=== PATIENT | female | born 1965 | race Caucasian/White ===

== ENCOUNTER 2019-12-19 23:22 | Observation (INO) | payer OTHER, SELFPAY ==
--- NOTE | ~2019-12-19 | XR_ITS ---
EXAMINATION: XR chest 1V portable DATE: 12/20/2019 01:05 INDICATION: Midline chest pain TECHNIQUE: frontal view of the chest was obtained. COMPARISON: None FINDINGS: The lungs are clear with no focal airspace opacities, pulmonary edema, pleural effusion or pneumothor ax. The cardiomediastinal silhouette is normal. Adjustable gastric banding procedure in expected posi tion. IMPRESSION: 1. No acute cardiopulmonary disease. Reviewed, dictated and finalized at location A.
[2019-12-19 23:26] VITALS: BP 144/77; PULSE 90; RESP 15; TEMP 36.5; O2SAT 96
--- NOTE | 2019-12-19 23:34 | ECG_ITS ---
Measurements Intervals [place] Rate: 89 P: 46 [place]: 185 QRS: -16 QRSD: 110 T: 52 QT: 399 QTc: 486 Interpretive Statements SINUS RHYTHM INTRAVENTRICULAR CONDUCTION DELAY LOW QRS VOLTAGE IN PRECORDIAL LEADS BASELINE WANDER- II, III, AVF, V6 BORDERLINE ECG Electronically Signed On 12-20-2019 6:55:07 CDT by Chidi Shelton D.O.
--- NOTE | 2019-12-19 23:39 | PC.NURSE ---
Pt states taking 325 Aspirin today (daily). MD Ronquillo aware.
--- NOTE | 2019-12-19 23:44 | ED.CHESTPAIN ---
HPI - Chest Pain General Chief Complaint: Chest Pain Stated Complaint: cp, sob Time Seen by Provider: 12/19/19 23:25 Source: patient Mode of arrival: ambulatory Limitations: no limitations History of Present Illness HPI narrative: 54 yo female with h/o GA in 2010 s/p PCI, stent, HTN, DM, hyperlipidemia who presents with c/o midsternal chest tightness. Patent states she was laying in bed when she developed midsternal chest tightness with shortness of breath. Her pain has been constant and she reports it a appears to be radiating across her chest and to her back. She has associated dizziness and hot flashes . She reports history of GA 2010 in which she had 1 stent placed. This pain is similar to her previous GA except she does not have pain in her arms. 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 MD complaint: chest pain Pertinent past history: prior GA (2010) Onset (ago): hour(s) (1) Timing of current episode: constant Pain location: parasternal Pain radiation: back Severity: moderate Pain scale (0-10): 5 Quality: tightness Exacerbating factors: inspiration Risk Factors Coronary artery disease risk factors: diabetes, smoking history, hyperlipidemia and hypertension Related Data Home Medications Medication Instructions Recorded Confirmed tramadol [Ultram] 50 mg PO DAILY PRN 12/19/19 12/19/19 alprazolam 0.5 mg PO TID PRN 12/20/19 12/20/19 amitriptyline 75 mg PO HS 12/20/19 12/20/19 aspirin 325 mg PO DAILY 12/20/19 12/20/19 atorvastatin 10 mg PO DAILY 12/20/19 12/20/19 cholecalciferol (vitamin D3) 125 mcg PO DAILY 12/20/19 12/20/19 [Vitamin D3] linaclotide [Linzess] 290 mcg PO DAILY PRN 12/20/19 12/20/19 liraglutide [Victoza 2-Grey] 1.8 mg SUBCUT DAILY 12/20/19 12/20/19 metformin 500 mg PO QPM 12/20/19 12/20/19 ondansetron HCl 8 mg PO BID PRN 12/20/19 12/20/19 pantoprazole [Protonix] 40 mg PO QAM 12/20/19 12/20/19 vitamin E 400 unit PO BID 12/20/19 12/20/19 zolpidem 5 mg PO HS PRN 12/20/19 12/20/19 Allergies Allergy/AdvReac Type Severity Reaction Status Date / Time latex Allergy Unknown Verified 10/27/16 08:53 Sulfa (Sulfonamide Allergy Unknown Verified 05/04/17 10:11 Antibiotics) Review of Systems Review of Systems: All systems reviewed & are unremarkable except as noted in HPI and below Constitutional: Constitutional: Denies chills and Denies fever(s) ENT: Reports dizziness, Denies nasal congestion and Denies sore throat Cardiovascular: Cardiovascular: Reports chest pain, Denies rapid heart rate and Denies radiating jaw, neck or arm pain Respiratory: Respiratory: Denies chest congestion, Denies cough, Reports dyspnea and Denies wheezing Gastrointestinal: Gastrointestinal: Denies abdominal pain, Denies nausea and Denies vomiting PMFSH Past Medical History Medical History (Updated 12/20/19 @ 05:41 by Mary Ronquillo MD) Diabetes mellitus Gastroparesis Hypertension Myocardial infarction Surgical History Surgical History (Updated 12/19/19 @ 23:49 by Mary Ronquillo MD) Stented coronary artery Family History Family History (Updated 12/20/19 @ 03:14 by Dariana Sheridan RN) Mother Family history of arthritis Hypercholesteremia Myocardial infarct Sibling Family history of arthritis Family history of type 2 diabetes mellitus Bipolar 1 disorder Scarlet fever Father Patient's father is in good health Myocardial infarct Grandparent Family history of lung cancer Social History Social History (Updated 12/19/19 @ 23:50 by Mary Ronquillo MD) Smoking packs per day: 0.5 Smoking cigarettes per day: 10.0 Years smoked: 37 Smoking pack-years: 18.50 Smoking status: Former smoker Tobacco type: cigarettes Alcohol intake: current Exam Const: General: no acute distress and alert Orientation/consciousness: patient oriented x3 Eyes: EOM: EOMs intact bilaterally Neck: Neck: normal visual inspection Chest: Chest palpation & inspection: normal inspection of
[2019-12-20] VITALS (31 sets, daily range): BP systolic 94–142; BP diastolic 59–105; PULSE 78–110; RESP 12–23; TEMP 36.6–36.9; O2SAT 93–100; BMI 44.7
[2019-12-20] MEDS: ASPIRIN 81 MG CHEWABLE TABLET 324 MG PO
[2019-12-20 00:27] LABS: Basophils Absolute Auto 0.1 K/mm3 (0.0-0.1); Basophils Percent Auto 0.9 % (0.2-1.2); Eosinophils Absolute Auto 0.3 K/mm3 (0-0.3); Eosinophils Percent Auto 2.7 % (0-4.4); Hematocrit 43.7 % (37.0-47.0); Hemoglobin 14.1 g/dL (12.0-15.0); Immature Granulocyte Absolute 0.02 K/mm3 (0.00-0.031); Immature Granulocyte Percent A 0.2 % (0-0.5); Lymphocytes Absolute Auto 3.81 K/mm3 (0.9-3.2); Lymphocytes Percent Auto 40.5 % (18.3-44.2); Mean Corpuscular HGB Conc 32.3 g/dl (32-36); Mean Corpuscular Hemoglobin 27.8 pg (26-34); Mean Platelet Volume 10.9 fl (7.4-10.4); Monocytes Absolute Auto 0.8 K/mm3 (0.1-0.6); Monocytes Percent Auto 8.2 % (2.6-8.5); Neutrophils Absolute Auto 4.5 K/mm3 (1.3-6.7); Neutrophils Percent Auto 47.5 % (45.5-73.1); Platelet Count Result 232 k/mm3 (150-375); Red Blood Count 5.08 M/mm3 (4.2-5.4); Red Cell Distribution Width 13.9 % (11.5-14.5); White Blood Count 9.4 K/mm3 (4.5-10.0)
[2019-12-20 00:36] LABS: INR 0.8; Prothrombin Time 11.2 Seconds (11.1-14.7)
[2019-12-20 00:37] LABS: Partial Thromboplastin Time 26.4 SECONDS (22.3-36.8)
[2019-12-20] MEDS: NITROGLYCERIN SL 0.4 MG TABLET SUBLINGUAL ×3 (00:39→09:56)
[2019-12-20 00:40] LABS: D Dimer 0.34 ug/mL (<0.48)
[2019-12-20 00:41] LABS: Blood Urea Nitrogen 13 mg/dL (7-17); Carbon Dioxide 30 mmol/L (22-30); Chloride 99 mmol/L (98-107); Estimated Glomerular Filt Rate > 60; Glucose 213 mg/dL (65-105); Potassium 3.6 mmol/L (3.4-5.0); Sodium 138 mmol/L (137-145)
[2019-12-20 00:53] LABS: Troponin I < 0.012 ng/mL (0.000-0.034)
--- NOTE | 2019-12-20 01:00 | PC.NURSE ---
Assumed care of pt at this time. report from CHARIS Rossi
--- NOTE | 2019-12-20 01:02 | PC.NURSE ---
Ronak nurse reassessed Pt after administering medication and handed off report to CHARIS Jang at bedside.
--- NOTE | 2019-12-20 01:23 | PC.NURSE ---
VORB EDP Ronquillo administer 1 0.4 mg nitro SL due to pts pain returning to a 3 Pt HR 85 bp 118/77 prior to admission 0124 0129 Pt rating pain at 2 held third nitro due to pt BP 94/60 EDP notified.
--- NOTE | 2019-12-20 01:39 | ECG_ITS ---
Measurements Intervals [place] Rate: 79 P: 41 [place]: 188 QRS: -28 QRSD: 102 T: 41 QT: 411 QTc: 472 Interpretive Statements SINUS RHYTHM ATRIAL PREMATURE COMPLEX LOW QRS VOLTAGE IN PRECORDIAL LEADS BASELINE ARTIFACT- III, AVF BORDERLINE ECG Electronically Signed On 12-20-2019 6:54:19 CDT by Chidi Shelton D.O.
[2019-12-20] MEDS: ONDANSETRON INJ 4 MG/2 ML VIAL IV PUSH (01:46)
[2019-12-20] MEDS: SODIUM CHLORIDE 0.9% IV 500 ML 999 ML IV CONT (01:47)
--- NOTE | 2019-12-20 02:43 | ECG_ITS ---
Measurements Intervals [place] Rate: 78 P: 39 [place]: 184 QRS: -26 QRSD: 104 T: 31 QT: 443 QTc: 507 Interpretive Statements SINUS RHYTHM LOW QRS VOLTAGE IN PRECORDIAL LEADS PROLONGED QT INTERVAL ABNORMAL ECG Electronically Signed On 12-20-2019 6:58:07 CDT by Chidi Shelton D.O.
[2019-12-20 04:12] LABS: Troponin I < 0.012 ng/mL (0.000-0.034)
--- NOTE | 2019-12-20 05:43 | ECG_ITS ---
Measurements Intervals [place] Rate: 92 P: 44 [place]: 188 QRS: -26 QRSD: 99 T: 54 QT: 408 QTc: 505 Interpretive Statements SINUS RHYTHM RSR' IN V1 OR V2, CONSIDER RIGHT VENTRICULAR HYPERTROPHY OR RIGHT VCD LOW QRS VOLTAGE IN PRECORDIAL LEADS NONSPECIFIC T-WAVE ABNORMALITY- INF/LAT LEADS BASELINE ARTIFACT- II, III, AVR, AVL, AVF, V1 BORDERLINE ECG Electronically Signed On 12-20-2019 12:23:43 CDT by Chidi Shelton D.O.
[2019-12-20 06:16] LABS: Troponin I < 0.012 ng/mL (0.000-0.034)
[2019-12-20] MEDS: ACETAMINOPHEN 325 MG TABLET 650 MG PO (08:32)
--- NOTE | 2019-12-20 09:55 | PC.NURSE ---
0930-pt begins having active CP symptoms as MD is spreaking with pt. rates pain as 5/10. Orders received for SL Nitro and EKG. Pt has x2 SL nitro with improvement of CP. EKG shown to MD. Pt has not had any follow up with pump [facility] since 2011 and will go to [facility] per MD order. Nitro relieved chest pain to 1/10 currently. Will continue to monitor.
--- NOTE | 2019-12-20 10:01 | PM.IMHP ---
H&P: HPI History of Present Illness Chief complaint: chest pain Narrative: Date of service: 12/20/2019 Lucretia Rodriguez is a 54 year old female with known history of hypertension, diabetes mellitus type 2, dyslipidemia, obesity, recent diagnosis of systemic lupus erythematosus, history of CAD with prior myocardial infarction 2011 status post PCI, family history premature atherosclerosis, history tobacco abuse who has not had directed cardiovascular care for several years presents emergency department with complaints of progressive 2 weeks of fatigue, exertional dyspnea culminating with onset of substernal chest tightness waking her from sleep last night with associated inability to catch her breath. She states chest pain radiated to her back and up into the right arm and is very similar to symptoms she experienced prior to having her myocardial infarction in 2010 in [place]. In the emergency department she was given sublingual nitroglycerin with significantly improved her symptoms but not completely resolved on initially. Later on her pain had completely resolved and this morning on 8:00 a.m. chest pain return peaking at a 5/10 in intensity reduced to 2/10 with sublingual nitroglycerin x2. Serial troponins negative x3, EKG nonspecific changes on personal review. Patient has been compliant with medical therapy. She quit smoking approximately 6 months ago with the assistance of [employer]. Patient notes occasional lower extremity edema improved with compression stockings but denies any at this time. She denies bright red blood per rectum, melena, focal weakness, near-syncope, syncope, palpitations recent illnesses, fevers or chills. She states she is very tired has no energy overall and knows that something is wrong. Other than that above she has no other new complaints presently. Review of Systems Review of Systems: All systems reviewed & are unremarkable except as noted in HPI and below Constitutional: Constitutional: Reports as per HPI, Reports no additional constitutional complaints, Reports fatigue and Reports weakness Eyes: Eyes: Reports as per HPI, Reports no additional eye complaints and Denies photophobia ENT: Reports system reviewed and no additional complaints, except as documented, Reports as per HPI, Denies dysphagia, Denies nasal congestion and Denies nasal discharge Cardiovascular: Cardiovascular: Reports as per HPI, Reports no additional cardiovascular complaints, Reports chest pain, Denies diaphoresis, Reports leg edema, Denies lightheadedness and Denies palpitations Respiratory: Respiratory: Reports as per HPI, Reports no additional respiratory complaints, Denies chest congestion, Denies hemoptysis, Reports dyspnea, Reports dyspnea on exertion and Denies wheezing Gastrointestinal: Gastrointestinal: Reports as per HPI, Reports no additional gastrointestinal complaints, Denies abdominal pain, Denies melena, Denies bloating, Denies hematochezia, Reports constipation, Denies heartburn, Denies diarrhea, Reports nausea, Denies vomiting and Denies hematemesis Genitourinary: Genitourinary: Reports no additional female genitourinary complaints, Reports as per HPI, Denies hematuria and Denies dysuria Musculoskeletal: Musculoskeletal: Reports no additional musculoskeletal complaints, Reports as per HPI and Reports back pain Integumentary/Breasts: Skin/Breast: Reports system reviewed and no additional complaints, except as docu, Reports as per HPI, Denies erythema, Denies rash and Denies unusual bruising Neurologic: Reports system reviewed and no additional complaints, except as documented, Reports as per HPI, Denies Abnormal speech present, Denies confusion, Reports headache(s) and Denies numbness Psychiatric: Psychiatric: Reports no additional psychiatric complaints, Reports as per HPI, Denies anxiety, Denies behavioral changes and Denies confusion Endocrine: Endocrine: Reports no additional endocrine complaints, Reports as per HPI, Denies excessive s
--- NOTE | 2019-12-20 11:33 | PM.PROC ---
Procedure Note - Detailed Date of procedure: 12/20/19 Pre-op diagnosis: chest pain unstable angina, CAD Post-op diagnosis: same Procedure performed: left heart catheterization with selective left and right coronary angiography with left ventriculography and hemodynamics Description of procedure: BRIEF HISTORY OF PRESENT ILLNESS: Patient is a pleasant 54 year old female with a past medical history significant for prior non ST-elevation myocardial infarction 2010 with stent to proximal LAD, diabetes mellitus, hypertension, dyslipidemia, history tobacco abuse, obstructive sleep apnea and intolerant of CPAP, morbid obesity, history of gastric sleeve, family history premature atherosclerosis who presented with 2 week history of progressive fatigue, exertional dyspnea with onset of familial anginal chest tightness waking her from sleep Waxing waning with nitroglycerin. Serial troponins are negative with nonspecific EKG changes, however, given recurrent rest anginal symptoms and high pretest probability recommendation for coronary angiography were per forth and patient agreed to proceed with plan of care. PROCEDURES PERFORMED: 1. Left heart catheterization 2. Selective left and right coronary angiography 3. Left ventriculography and hemodynamics 4. Moderate/conscious sedation administration 5. [id number] exchange with placement of 6 Algerian arterial vascular access sheath CATHETERS UTILIZED: Left coronary system- 5 Algerian JL4 catheter Right coronary system- 5 Algerian JR4 catheter Left ventriculography and hemodynamics- 5 Algerian angled pigtail catheter PROCEDURE IN DETAIL: After verbal and written informed consent was obtained the patient, risks, benefits, and alternatives explained in detail the patient agreed to proceed with the plan of care as outlined above. The patient was subsequently brought to the cardiac catheterization lab, placed on the cardiac catheterization table, and prepped and draped in the usual sterile fashion. Utilizing approximately 18cc of 1% subcutaneous Lidocaine, the right groin was then locally anesthetized. Utilizing the modified Seldinger technique, a 5 Algerian arterial vascular access sheath was inserted in the right common femoral artery easily and without complications. Through this access, coronary angiography was subsequently obtained in multiple standard re-projections. Following this, a 5 Algerian angled pigtail catheter was advanced retrograde across aortic valve into the cavity of the left ventricle. Left ventriculography was performed and pullback across aortic valve was subsequently recorded. The vascular access sheath and angiographic catheters were flushed before and after catheter exchanges. At the conclusion of the diagnostic portion of the procedure, all angiographic guidewires and catheters were removed and the 5 Algerian arterial vascular access sheath was then exchanged over the wire for 6 Algerian vascular arterial access sheath in anticipation for iFR with Dr. Juan (Interventional Cardiology). There no complications noted at the conclusion of the diagnostic portion of the study. MODERATE SEDATION/ANESTHESIA ADMINISTRATION: Patient reports no prior problems with sedation/anesthesia. Please see pre-sedation noted for physical examination documentation. Sedation start time was 1032 and end time was 1115 for a total intra-service/procedure face-face time of 43 minutes. A total of 2 mg intravenous Versed and a total of 100 mcg intravenous Fentanyl in multiple divided doses was administered for moderate sedation. Moderate sedation was administered by qualified/certified observer Isael Ovalle RN under my supervision with intra-procedure [id number] observation and management throughout the entirety of the procedure. There were no other issues or complications and patient tolerated the procedure well. See post-anesthesia documentation. CORONARY ANGIOGRAPHY: The LEFT MAIN with a large caliber vessel ar
--- NOTE | 2019-12-20 11:38 | WPDMODSED ---
Moderate Sedation Note-Pt Data Patient Data Diagnosis: unstable angina, CAD Present Complaint: persistent chest pain Procedure to be performed/Plan: left heart catheterization with left and right coronary angiography with left ventriculography and hemodynamics and possible percutaneous intervention and stent implantation. Allergies Allergy/AdvReac Type Severity Reaction Status Date / Time latex Allergy Unknown Verified 10/27/16 08:53 Sulfa (Sulfonamide Allergy Unknown Verified 05/04/17 10:11 Antibiotics) Home Medications Medication Instructions Recorded Confirmed Type hydrochlorothiazide 12.5 mg tablet 12.5 mg PO DAILY #30 tablet 07/20/19 12/20/19 Rx lisinopril 40 mg tablet 40 mg PO DAILY #30 tablet 08/22/19 12/20/19 Rx metoprolol tartrate 50 mg tablet 50 mg PO Q12H #60 tablet 08/22/19 12/20/19 Rx citalopram 40 mg tablet 40 mg PO DAILY #90 tablet 09/19/19 12/20/19 Rx levothyroxine 88 mcg tablet 88 mcg PO DAILY #90 tablet 09/19/19 12/20/19 Rx meloxicam 15 mg tablet 15 mg PO DAILY #30 tablet 11/14/19 12/20/19 Rx tramadol [Ultram] 50 mg PO DAILY PRN 12/19/19 12/19/19 History alprazolam 0.5 mg PO TID PRN 12/20/19 12/20/19 History amitriptyline 75 mg PO HS 12/20/19 12/20/19 History aspirin 325 mg PO DAILY 12/20/19 12/20/19 History atorvastatin 10 mg PO DAILY 12/20/19 12/20/19 History cholecalciferol (vitamin D3) 125 mcg PO DAILY 12/20/19 12/20/19 History [Vitamin D3] linaclotide [Linzess] 290 mcg PO DAILY PRN 12/20/19 12/20/19 History liraglutide [Victoza 2-Grey] 1.8 mg SUBCUT DAILY 12/20/19 12/20/19 History metformin 500 mg PO QPM 12/20/19 12/20/19 History ondansetron HCl 8 mg PO BID PRN 12/20/19 12/20/19 History pantoprazole [Protonix] 40 mg PO QAM 12/20/19 12/20/19 History vitamin E 400 unit PO BID 12/20/19 12/20/19 History zolpidem 5 mg PO HS PRN 12/20/19 12/20/19 History Current Medications: Active Medications Morphine Sulfate (Morphine Sulfate Inj) 4 mg IV PUSH Q2H PRN PRN Reason: Pain Rated 7-10 Nitroglycerin (Nitrostat Subl 0.4 Mg (1/150)) 0.4 mg SUBLINGUAL Q5MIN PRN PRN Reason: Chest Pain Last Admin: 12/20/19 09:56 Dose: 0.4 mg Documented by: Ondansetron HCl (Zofran Inj) 4 mg IV PUSH Q4H PRN PRN Reason: Nausea Sedation/Anesthesia: No previous sedation/anesthesia problems (including family history). [facility] Past Medical History Medical History Diabetes mellitus Gastroparesis Hypertension Myocardial infarction Surgical History Surgical History Stented coronary artery Family History Family History Mother Family history of arthritis Hypercholesteremia Myocardial infarct Sibling Family history of arthritis Family history of type 2 diabetes mellitus Bipolar 1 disorder Scarlet fever Father Patient's father is in good health Myocardial infarct Grandparent Family history of lung cancer Social History Social History Smoking packs per day: 0.5 Smoking cigarettes per day: 10.0 Years smoked: 37 Smoking pack-years: 18.50 Smoking status: Former smoker Tobacco type: cigarettes Alcohol intake: current Mod Sed Physical Exam Physical Exam Pre Procedural Exam: Normal: Appearance, Eyes, Ears, Nose, Neck ( Obese, supple, normal range of motion), Throat ( posterior hypopharynx clear, nonerythematous.), Airway ( normal anatomy, no obstruction), Lungs ( clear to auscultation bilaterally), Heart Size, Heart Rate, Heart Rhythm, Neuro Exam, Liver, Kidneys, Extremities and Skin and Variation: Abdomen ( Obese) Hours since solid foods: 12 Hours since liquid intake: 12 Internal Medicine - PN: Obj Da Vital Signs Vital Signs: Vital Signs - 24 hr 12/19/19 23:26 12/20/19 00:59 12/20/19 01:21 Temperature 36.5 C Pulse Rate 90 87 87 Respiratory Rate 15 20
--- NOTE | 2019-12-20 11:54 | WPDCARDPROC ---
Cardiac Cath Procedure Note Date of procedure:: 12/20/19 Performing physician:: Kamlesh Juan MD Indication:: chest pain Procedure Procedure note:: CARDIAC CATHETERIZATION AND PERCUTANEOUS CORONARY INTERVENTION REPORT DATE OF PROCEDURE: 12/20/2019 INDICATION FOR PROCEDURE: chest pain, moderate stenosis mid LCX and mid RCA BRIEF CLINICAL HISTORY: 54-year-old obese female with known coronary disease, history of PCI / stenting of LAD at outside hospital; hypertension, diabetes mellitus. Patient was admitted to hospital with complaints of chest discomfort. She was ruled out for [place] by serial negative cardiac biomarkers. Patient's coronary angiogram performed by Dr. Alexandre, which in addition to other findings as dictated separately by Dr. Alexandre in the diagnostic cardiac catheterization, showed ectatic LCX and RCA with moderate degree stenosis in the mid LCX and mid RCA. In light of this findings, we proceeded with the functional assessment of the lesions using IFR. The 5 [place]ian sheath was exchanged to [address] Alexandre. Benefits, risks and alternatives of the procedure had already been discussed with the patient and informed consent was taken prior to the procedure. PROCEDURES PERFORMED: 1. Selective left and right coronary angiogram 2. IFR of mid LCX 3. IFR of mid RCA 3. Selective right common femoral angiogram and deployment of Angio-Seal hemostatic device 4. Moderate sedation-CPT code 27603 MODERATE SEDATION: Midazolam 2 mg; fentanyl 100 mcg ( Given during diagnostic part of the procedure). Start time 1120 , Stop time 1140 ; Total [id number] time 20; Isael Ovalle RN was trained observer for moderate sedation. ACCESS SITE: Right common femoral artery INTERVENTION REPORT: At 1st, we proceeded with the IFR of the mid LCX. Patient received bivalirudin for procedural anticoagulation. left main coronary artery ostium was selectively engaged using 6 Liberian 3.5 CLS guide catheter. A Spindle Verrata pressure wire was used for IFR measurement. The wire was zeroed outside, and was introduced into the proximal left circumflex artery and normalized. Next, the mid LCX lesion was crossed and IFR was measured. The IFR was measured at 1.0 on 3 successive measurements. The wire was taken out and angiogram showed preserved flow. Based on the angiographic findings, intervention was not deemed necessary in the LCX. Next, attention was shifted to mid RCA stenosis. The same wire was introduced in the JR4 guide catheter, and was normalized in the aorta. Next, the wire was advanced and the lesion in the mid RCA was successfully crossed. The IFR was measured at 1.0 on 3 successive measurement. Angiogram after removal of the wire showed preserved flow in the RCA. Based on the above findings, no intervention was deemed necessary in the mid RCA. Finally, selective right common femoral angiogram was performed. The access site was close to the bifurcation, therefore, vascular closure device was not deployed. Manual pressure will be used for local hemostasis. Patient tolerated procedure well without any immediate procedure related complications. CONCLUSIONS: Moderate stenosis in the ectatic mid LCX and mid RCA with normal IFR measured at 1.0. PLAN/RECOMMENDATIONS: Optimal, tolerating medical treatment for CAD. Risk factor modification. Follow up with Dr. Alexandre the outpatient cardiology clinic. Need for any intervention in the future will be based on patient's clinical course. Patient has large, ectatic vessels (RCA, LCX), and would need large caliber stents, if/when necessary. This document was completed by using [employer] speech recognition software, therefore, paleobotanist variances may occur.
--- NOTE | 2019-12-20 12:16 | SUR.PHASEII ---
1200-pt back to the [facility] after an LHC. No distress noted. 6F sheath in place. Groin soft and non-tender, no evidence of bleeding or hematoma noted. Strong right pedal pulse noted. Will continue to monitor.
--- NOTE | 2019-12-20 14:03 | PC.NURSE ---
1403-6f sheath pulled by CHARIS Traylor. Will continue to monitor.
[2019-12-20] MEDS: ISOSORBIDE MONONITRATE 30 MG TAB.ER.24H PO (17:00)
[2019-12-20 18:30] LABS: Cholesterol 123 mg/dL (0-200); HDL Direct 27 mg/dL; Triglycerides 290 mg/dL (<150)
[2019-12-20 18:41] LABS: LDL Cholesterol Direct 57 mg/dL
--- NOTE | 2019-12-21 10:17 | PM.DS ---
DS: Diagnosis Admitting Diagnosis Admitting Diagnosis: Unstable angina Discharge Diagnosis (1) CAD (coronary artery disease): Code(s): I25.10 - Atherosclerotic heart disease of [place] coronary artery without angina pectoris Status: Acute Assessment and Plan: Coronary artery disease as described in hospital course. Isosorbide mononitrate added to her regimen. DS: Summary Hospital Course Reason for hospitalization: Chest pain Hospital Course: 54 year old female with known history of hypertension, diabetes mellitus type 2, dyslipidemia, obesity, recent diagnosis of systemic lupus erythematosus, history of CAD with prior myocardial infarction 2011 status post PCI, family history premature atherosclerosis, history tobacco abuse who has not had directed cardiovascular care for several years presents emergency department with complaints of progressive 2 weeks of fatigue, exertional dyspnea culminating with onset of substernal chest tightness waking her from sleep with associated inability to catch her breath. The chest pain radiated to her back and up into the right arm and was very similar to symptoms she experienced prior to having her myocardial infarction in 2010 in [place]. In the emergency department she was given sublingual nitroglycerin with significantly improved her symptoms but not completely resolved initially. Later on her pain had completely resolved. At 8:00 a.m. the chest pain return peaking at a 5/10 in intensity reduced to 2/10 with sublingual nitroglycerin x2. Serial troponins negative x3, EKG nonspecific changes on personal review by Dr. Alexandre. Due to her ongoing chest discomfort she was taken to the cardiac catheterization lab with a significant findings of:Two vessel moderate nonobstructive disease with 60-70% stenosis proximal circumflex with poststenotic aneurysmal dilatation and 50-70% mid RCA stenosis which is a very large caliber dominant vessel. Preserved LV systolic function EF 70% without wall motion abnormalities. Minimal elevation of left ventricular end-diastolic filling pressure 14 mmHg. Patent previously placed stent in proximal LAD with 10% in stent restenosis. Isosorbide mononitrate was added to her regimen. Her aspirin was decreased to 81 mg daily. Atorvastatin was increased to 40 mg daily. Due to the addition of isosorbide mononitrate her lisinopril was decreased to 20 mg from 40 mg daily. After the prescribed bedrest she was discharged home in stable and pain-free condition. Status at Discharge Functional status at discharge: independent ambulation Overall status at discharge: patient is back to baseline Time Spent with Patient Time attestation: Total time spent providing and/or coordinating discharge services: 20 minutes Time spent: Less than 30 minutes Exam Narrative: Exam Narrative: General: Obese female, appears fatigued, worried otherwise well developed, alert and oriented x3. No apparent distress, pleasant, and cooperative. Head: atraumatic, normocephalic Eyes: EOM intact, sclerae anicteric, conjunctivae unremarkable Ears/Nose: external inspection of ears and nose were grossly normal Mouth/Throat: oral mucosa pink and moist Neck: supple, normal range of motion, no jugular venous distention or carotid bruits, thyroid nonpalpable, trachea midline. Cardiac: Regular rate and rhythm, normal S1-S2, no murmurs, clicks, gallops, or rubs. Lungs: Clear to auscultation bilaterally, no rales, wheezes, or rhonchi. Abdomen: Obese, Soft, nontender, nondistended, positive bowel sounds throughout. No appreciable hepatosplenomegaly, no rebound guarding or rigidity noted. Abdominal aorta nonpalpable, no appreciable bruits. Extremities: No edema, clubbing, and or cyanosis. Extremities warm and well perfused. Skin: Warm and dry without ecchymoses, rashes, and/or petechiae. Musculoskeletal: Musc
== END 2019-12-20 21:50 | disposition home or self-care (01) ==
LOC: ANHED 23:56 → ANHIMU 12-20 02:04 → ANHCPC 12-20 07:26
PROVIDERS: Internal Medicine Cardiovascular Disease; Admitting Provider Internal Medicine Cardiovascular Disease; Emergency Provider General Practice; PCP Physician Assistant; Visit Provider Internal Medicine Cardiovascular Disease
PROC: 4A023N7 Measurement of Cardiac Sampling and Pressure, Left Heart, Percutaneous Approach (ICD-10-PCS; CPT 93452; principal; 2019-12-20 10:15)
PROC: 4A033BC Measurement of Arterial Pressure, Coronary, Percutaneous Approach (ICD-10-PCS; CPT 93571; 2019-12-20 10:15)
PROC: 4A033BC Measurement of Arterial Pressure, Coronary, Percutaneous Approach (ICD-10-PCS; CPT 75580; 2019-12-20 10:15)
DX: I25.110 Atherosclerotic heart disease of native coronary artery with unstable angina pectoris (principal); I25.41 Coronary artery aneurysm; T82.855A Stenosis of coronary artery stent, initial encounter; Y83.2 Surgical operation with anastomosis, bypass or graft as the cause of abnormal reaction of the patient, or of later complication, without mention of misadventure at the time of the procedure; I25.2 Old myocardial infarction; E11.59 Type 2 diabetes mellitus with other circulatory complications; I10 Essential (primary) hypertension; E11.69 Type 2 diabetes mellitus with other specified complication; E78.5 Hyperlipidemia, unspecified; E11.43 Type 2 diabetes mellitus with diabetic autonomic (poly)neuropathy; K31.84 Gastroparesis; E03.9 Hypothyroidism, unspecified; M32.9 Systemic lupus erythematosus, unspecified; E66.01 Morbid (severe) obesity due to excess calories; Z68.41 Body mass index [BMI] 40.0-44.9, adult; G47.33 Obstructive sleep apnea (adult) (pediatric); Z82.49 Family history of ischemic heart disease and other diseases of the circulatory system; Z87.891 Personal history of nicotine dependence; Z98.84 Bariatric surgery status
CPT/HCPCS: 36415; 71045; 80048; 80061; 84484; 85025; 85380; 85610; 85730; 93005; 93458; 93571; 93572; 96374; 96375; 99285; A9270; C1769; C1887; C1894; G0378; J0583; J1644; J2250; J2405; J3010; J7040

== ENCOUNTER 2021-01-03 14:14 | Observation (INO) | payer OTHER, SELFPAY ==
[2021-01-03] VITALS (9 sets, daily range): BP systolic 126–144; BP diastolic 71–84; PULSE 76–92; RESP 14–22; TEMP 36–36.6; O2SAT 94–98; BMI 46.2
--- NOTE | ~2021-01-03 | XR_ITS ---
EXAMINATION: XR chest 2V 01/03/2021 15:25 INDICATION: Left-sided chest pain PROCEDURE: 2 view chest COMPARISON: 12/20/2019 FINDINGS: The lungs are clear. The cardiomediastinal silhouette is within normal limits. There are no pleural effusions. There is no pneumothorax suspected. IMPRESSION: 1: NO ACUTE CARDIOPULMONARY DISEASE. Reviewed, dictated and finalized at location B.
--- NOTE | ~2021-01-03 | NM_ITS ---
EXAMINATION: NM demetrius stress w perfusion DATE: 01/04/2021 14:37 CDT INDICATION: Chest pain. TECHNIQUE: Rest images were obtained following intravenous administration of 9.6 mCi Tc99m tetrofosmi n (Myoview). The patient was infused intravenously with Lexiscan (regadenoson). Then, 30 mCi Tc99m te trofosmin (Myoview) was administered intravenously, and stress images were obtained. Data was reconst ructed into short axis and horizontal and vertical long axis SPECT images. Gated SPECT images were al so obtained. COMPARISON: None. FINDINGS: There is no definite reversible or fixed perfusion abnormality to suggest ischemia or infar ction. There is no segmental wall motion abnormality. Left ventricular ejection fraction measures 7 2%. IMPRESSION: 1. No definite ischemia or infarct. 2. Normal left ventricular ejection fraction measuring 72%. Reviewed, dictated and finalized at location B.
--- NOTE | 2021-01-03 14:22 | ECG_ITS ---
Measurements Intervals [place] Rate: 83 P: 20 RI: 156 QRS: -26 QRSD: 106 T: 22 QT: 394 QTc: 465 Interpretive Statements SINUS RHYTHM LOW QRS VOLTAGE IN PRECORDIAL LEADS BORDERLINE ECG Electronically Signed On 01-03-2021 14:27:39 CDT by Chidi Shelton D.O.
[2021-01-03 14:45] LABS: Basophils Absolute Auto 0.1 K/mm3 (0.0-0.1); Basophils Percent Auto 1.3 % (0.2-1.2); Eosinophils Absolute Auto 0.2 K/mm3 (0-0.3); Eosinophils Percent Auto 3.1 % (0-4.4); Hematocrit 40.8 % (37.0-47.0); Hemoglobin 12.7 g/dL (12.0-15.0); Immature Granulocyte Absolute 0.03 K/mm3 (0.00-0.031); Immature Granulocyte Percent A 0.4 % (0-0.5); Lymphocytes Absolute Auto 2.22 K/mm3 (0.9-3.2); Lymphocytes Percent Auto 32.9 % (18.3-44.2); Mean Corpuscular HGB Conc 31.1 g/dl (32-36); Mean Corpuscular Hemoglobin 27.1 pg (26-34); Mean Platelet Volume 10.5 fl (7.4-10.4); Monocytes Absolute Auto 0.4 K/mm3 (0.1-0.6); Monocytes Percent Auto 5.6 % (2.6-8.5); Neutrophils Absolute Auto 3.8 K/mm3 (1.3-6.7); Neutrophils Percent Auto 56.7 % (45.5-73.1); Platelet Count Result 237 k/mm3 (150-375); Red Blood Count 4.69 M/mm3 (4.2-5.4); Red Cell Distribution Width 15.2 % (11.5-14.5); White Blood Count 6.8 K/mm3 (4.5-10.0)
[2021-01-03 14:55] LABS: Anion Gap 10 mmol/L (8-16); Blood Urea Nitrogen 18 mg/dL (7-17); Calcium 9.2 mg/dL (8.4-10.2); Carbon Dioxide 26 mmol/L (22-30); Chloride 104 mmol/L (98-107); Estimated CRCL calculation 84 ml/min; Estimated Glomerular Filt Rate > 60; Glucose 111 mg/dL (65-105); Potassium 4.1 mmol/L (3.4-5.0); Sodium 140 mmol/L (137-145)
[2021-01-03] MEDS: ASPIRIN 81 MG CHEWABLE TABLET 243 MG PO (15:04)
[2021-01-03 15:07] LABS: Troponin I < 0.012 ng/mL (0.000-0.034)
--- NOTE | 2021-01-03 15:20 | PC.NURSE ---
Arrives via EMS, s/p starting 1115 today R shoulder pain radiating across chest, denies injuries or recent exertion, +N +dizziness -V. Pt took nitro SL x3 at home with some relief. ON assessment pt reports CP 11/14, non-labored resps, denies SOB
--- NOTE | 2021-01-03 15:34 | ED.BACK ---
HPI - Back Pain/Injury General Chief Complaint: Back Pain/Injury Stated Complaint: Pain R Arm sent by Dr Alexandre Time Seen by Provider: 01/03/21 15:18 Source: patient Mode of arrival: ambulatory Limitations: no limitations History of Present Illness HPI Narrative: This is a 55 year old female that presents to the ER for right arm pain that started around 11 this morning. Reports the pain felt similar to when she had an MS in the past. It is a dull ache and radiates into the shoulder blade. Reports the pain also radiates into her chest. Reports she feels like it is hard to get a deep breath. No known alleviating or exacerbating factors. She took 3 doses of sublingual nitro at home. Pain is much improved from onset. She called 911 and was evaluated by EMS, but decided to not be transported. She then called her group sales coordinator who recommended evaluation in the ED. Denies fever, vomiting, weakness or numbness. Related Data Home Medications Medication Instructions Recorded Confirmed tramadol [Ultram] 50 mg PO DAILY PRN 12/19/19 12/19/19 Linzess 290 mcg PO DAILY PRN 12/20/19 12/20/19 Victoza 2-Grey 1.8 mg SUBCUT DAILY 12/20/19 12/20/19 alprazolam 0.5 mg PO TID PRN 12/20/19 12/20/19 amitriptyline 75 mg PO HS 12/20/19 12/20/19 cholecalciferol (vitamin D3) 125 mcg PO DAILY 12/20/19 12/20/19 [Vitamin D3] metformin 500 mg PO QPM 12/20/19 12/20/19 ondansetron HCl 8 mg PO BID PRN 12/20/19 12/20/19 pantoprazole [Protonix] 40 mg PO QAM 12/20/19 12/20/19 vitamin E 400 unit PO BID 12/20/19 12/20/19 zolpidem 5 mg PO HS PRN 12/20/19 12/20/19 Allergies Allergy/AdvReac Type Severity Reaction Status Date / Time latex Allergy Unknown Verified 10/27/16 08:53 Sulfa (Sulfonamide Allergy Unknown Verified 05/04/17 10:11 Antibiotics) Review of Systems Review of Systems: Narrative: CONSTITUTIONAL: Denies fever CARDIOVASCULAR: Reports chest pain. Denies edema. RESPIRATORY: Reports dyspnea. GASTROINTESTINAL: Denies vomiting MUSCULOSKELETAL: Reports joint pain, and myalgia. NEUROLOGIC: Denies numbness, or weakness. All systems reviewed & are unremarkable except as noted in HPI and below [facility] Past Medical History Medical History (Updated 01/03/21 @ 16:22 by Taylor Pappas PA-C) Diabetes mellitus Gastroparesis Hypertension Myocardial infarction Surgical History Surgical History Stented coronary artery Family History Family History Mother Family history of arthritis Hypercholesteremia Myocardial infarct Sibling Family history of arthritis Family history of type 2 diabetes mellitus Bipolar 1 disorder Scarlet fever Father Patient's father is in good health Myocardial infarct Grandparent Family history of lung cancer Social History Social History Smoking packs per day: 0.5 Smoking cigarettes per day: 10.0 Years smoked: 37 Smoking pack-years: 18.50 Smoking status: Former smoker Tobacco type: cigarettes Alcohol intake: current Gender identity (if verbalized by the patient): Female Exam Narrative: Exam Narrative: GENERAL: Well-appearing, obese, and in no acute distress. HEAD: Normocephalic, atraumatic. EYES: EOMI. ENT: Nares clear, no rhinorrhea or epistaxis. Mucous membranes moist. Oropharynx without tonsillar hypertrophy exudate or other lesions. NECK: Supple. No adenopathy or masses. No carotid bruits or JVD CHEST: Clear to auscultation. No respiratory distress. No wheezes rales or rhonchi HEART: Regular rate and rhythm. No murmur heard. Normal peripheral pulses. EXTREMITIES: Normal range of motion. No edema. SKIN: Warm, dry, no rash. NEURO: No focal deficits. Alert and oriented x3. PSYCH: Normal mood and affect Course Consultations Consultation #1: Spoke with Dr. Alexandre about patient and work-up who will consult Date: 12/07
[2021-01-03 16:47] LABS: INR 0.9; Partial Thromboplastin Time 23.7 SECONDS (22.3-36.8); Prothrombin Time 12.2 Seconds (11.1-14.7)
[2021-01-03] MEDS: ACETAMINOPHEN 500 MG TABLET 1000 MG PO (17:25)
[2021-01-03 17:51] LABS: Troponin I < 0.012 ng/mL (0.000-0.034)
--- NOTE | 2021-01-03 18:50 | ADMGEN ---
This patient, Lucretia Rodriguez, was admitted to IMU Room 206-01. Patient/family oriented to hospital policies and general routines including ID bracelet, bed and alarms, visiting hours, pain management, procedures, bathroom and other care routines, personal items, smoking policy, room service/diet, and visiting hours. Information on how to activate the Rapid Response Team has been discussed. Patient/Family are encouraged to report perceived risks to care and to ask questions if they do not understand what they are told or what they should do.
[2021-01-03 19:10] LABS: Glucose Point of Care 106 (65-105)
[2021-01-03 20:52] LABS: Troponin I < 0.012 ng/mL (0.000-0.034)
--- NOTE | 2021-01-03 21:00 | PM.IMHP ---
H&P: HPI History of Present Illness Date/Time: 01/03/21 21:00 Chief Complaint: Right arm pain. Narrative: This is a 55-year-old female with coronary artery disease, hypertension, and diabetes who presented to the emergency department earlier today from home with complaints of right arm pain. She was in her usual state of health this morning when she suddenly developed a deep aching pain in her right upper extremity radiating up into the shoulder. She was slightly nauseated and felt a bit short of breath with that as well and she ended up taking nitroglycerin x3 as she experienced similar symptoms prior to her AL several years ago. The nitroglycerin did not help and thus she called 911. On EMS arrival they told her that her EKG was normal and did not think that she needed to come to the hospital. Unfortunately she continued to have discomfort in after speaking with her flask maker she was directed to the emergency department. She still has some mild discomfort at this time but is not as severe as it was earlier today. She has not injured herself and denies recent lifting and new exercise programs. She is not having overt chest pain. She denies pleuritic pain and shortness of breath. No neck pain or injury. Review of Systems Review of Systems: Narrative: Twelve systems were reviewed with pertinent positives and negatives as per HPI. No fever, chills, or sweats. She denies recent cold and flu symptoms. No cough. Nausea earlier but no vomiting. No lower extremity edema, calf pain or tenderness. No history of venous thromboembolism. She believes her chronic medical conditions are well controlled. No blurry vision, polydipsia, or polyuria. Except as documented, all other systems were reviewed and are negative. [facility] Past Medical History Medical History (Updated 01/03/21 @ 23:42 by Mya Gimenez PA-C) Anemia Coronary artery disease With history of stent. Diabetic peripheral neuropathy Gastroesophageal reflux disease Gastroparesis History of squamous cell carcinoma of skin Hypertension Hypothyroidism Myocardial infarction Obstructive sleep apnea Does not use CPAP. Osteoarthritis Type 2 diabetes mellitus Surgical History Surgical History (Updated 01/03/21 @ 23:40 by Mya Gimenez PA-C) History of arthroplasty of left knee (~2016) History of cholecystectomy History of laparoscopic adjustable gastric banding (~2009) History of squamous cell carcinoma excision Right shoulder. History of tubal ligation Stented coronary artery (~2010) Family History Family History Mother Family history of arthritis Hypercholesteremia Myocardial infarct Sibling Family history of arthritis Family history of type 2 diabetes mellitus Bipolar 1 disorder Scarlet fever Father Patient's father is in good health Myocardial infarct Grandparent Family history of lung cancer Social History Social History (Updated 01/03/21 @ 23:40 by Mya Gimenez PA-C) Social History: Surrogate decision maker: Tommy ruvalcaba, daughter. Code status: Full code. Smoking packs per day: 0.5 Smoking cigarettes per day: 10.0 Years smoked: 37 Smoking pack-years: 18.50 Smoking status: Former smoker Tobacco type: cigarettes Additional smoking assessment comments: quit 2019, 1/2ppd since 17y/o Alcohol intake: never Substance use: never Additional living arrangements comments: The patient lives alone in [place]. 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 Gender identity (if verbalized by the patient): Female Spiritual care concerns: No Meds Home Medications and Allergies Home Medications Medication Instructions Recorded Confirmed Type tramadol [Ultram] 50 mg PO DAILY PRN 12/19/19 01/03/21 History Linzess 290 mcg PO DAILY 12/20/19 01/03/21 History amitriptyline 100 mg PO HS 12/20/19 01/03/21 History aspirin [
[2021-01-03] MEDS: HYDROcodone/acetaminophen (*CRX) 5-325 MG TABLET 1 TAB PO (21:11)
[2021-01-03 21:34] LABS: Glucose Point of Care 179 (65-105)
[2021-01-04] VITALS (10 sets, daily range): BP systolic 105–149; BP diastolic 59–103; PULSE 66–97; RESP 16–20; TEMP 36.2; O2SAT 95–96
[2021-01-04] MEDS: VITAMIN B COMPLEX CAPSULE 1 CAP PO (00:13)
[2021-01-04] MEDS: AMITRIPTYLINE HCL 25 MG TABLET 100 MG PO (00:13)
[2021-01-04] MEDS: CHOLECALCIFEROL 1,000 UNITS TABLET 5000 UNITS PO (00:13)
[2021-01-04] MEDS: MELATONIN 5 MG TABLET 10 MG PO (00:13)
[2021-01-04] MEDS: ATORVASTATIN 40 MG TABLET PO (00:14)
[2021-01-04] MEDS: METOPROLOL TARTRATE 50 MG TAB PO ×2 (00:14→08:48)
[2021-01-04] MEDS: traMADol HCL (*CRX) 50 MG TABLET PO (00:20)
[2021-01-04 05:31] LABS: Hemoglobin A1C 7.9 % (<5.7)
[2021-01-04 05:32] LABS: Alanine Aminotransferase 60 U/L (4-35); Albumin Level 3.9 g/dL (3.5-5.1); Alkaline Phosphatase 58 U/L (38-126); Anion Gap 6 mmol/L (8-16); Aspartate Amino Transferase 71 U/L (14-36); Bilirubin,Total 0.4 mg/dL (0.2-1.3); Blood Urea Nitrogen 19 mg/dL (7-17); Calcium 8.6 mg/dL (8.4-10.2); Carbon Dioxide 28 mmol/L (22-30); Chloride 105 mmol/L (98-107); Estimated CRCL calculation 76 ml/min; Estimated Glomerular Filt Rate > 60; Glucose 127 mg/dL (65-105); Magnesium 2.1 mg/dL (1.6-2.3); Sodium 139 mmol/L (137-145)
[2021-01-04 05:42] LABS: Hematocrit 38.4 % (37.0-47.0); Hemoglobin 12.3 g/dL (12.0-15.0); Mean Corpuscular Hemoglobin 27.2 pg (26-34); Mean Platelet Volume 10.6 fl (7.4-10.4); Platelet Count Result 227 k/mm3 (150-375); Red Blood Count 4.52 M/mm3 (4.2-5.4); Red Cell Distribution Width 15.3 % (11.5-14.5); White Blood Count 5.5 K/mm3 (4.5-10.0)
[2021-01-04] MEDS: LEVOTHYROXINE SODIUM 88 MCG TABLET PO (06:01)
[2021-01-04] MEDS: ISOSORBIDE MONONITRATE 30 MG TAB.ER.24H PO (08:48)
[2021-01-04] MEDS: ASPIRIN 81 MG ENTERIC TABLET PO (08:48)
[2021-01-04] MEDS: lisinopriL 20 MG TABLET PO (08:48)
[2021-01-04] MEDS: MELOXICAM 7.5 MG TABLET 15 MG PO (08:48)
[2021-01-04] MEDS: PANTOPRAZOLE 40 MG TABLET PO (08:48)
[2021-01-04] MEDS: hydroCHLOROthiazide 25 MG TABLET PO (08:48)
[2021-01-04] MEDS: HYDROcodone/acetaminophen (*CRX) 5-325 MG TABLET 1 TAB PO (08:49)
--- NOTE | 2021-01-04 09:25 | PM.IMPN ---
Progress Note: A&P Assessment and Plan (1) Right upper limb pain: Code(s): M79.601 - Pain in right arm Status: Acute Assessment and Plan: Complaints of pain in right arm extending to right shoulder and neck described as heaviness/aching sensation. Patient is concerned that this is her anginal equivalent as she had similar symptoms prior to her UT in 2010. Troponins negative x3. No acute findings noted on EKG. No improvement in pain overnight. Given cardiac history, her midwife practitioner Dr. Alexandre has been consulted. Patient is NPO. Stress test vs cardiac catheterization being considered. Will await further Cardiology recommendations. Continue supportive care including elevation, analgesics as needed (2) Coronary artery disease: Code(s): I25.10 - Atherosclerotic heart disease of [place] coronary artery without angina pectoris Status: Acute Assessment and Plan: With associated symptoms of right arm pain and chest tightness. Plan as above. Continue aspirin, atorvastatin, metoprolol, and isosorbide (3) Hypertension: Code(s): I10 - Essential (primary) hypertension Status: Acute Assessment and Plan: BP reviewed and has been generally well controlled, especially given her pain. Last BP 130/73. Continue metoprolol and hydrochlorothiazide (4) Type 2 diabetes mellitus: Code(s): E11.9 - Type 2 diabetes mellitus without complications Status: Acute Assessment and Plan: A1c is 7.9. Accu-Cheks, sliding scale insulin, and hypoglycemic protocol in place Metformin is on hold (5) Hypothyroidism: Code(s): E03.9 - Hypothyroidism, unspecified Status: Acute Assessment and Plan: TSH is within normal limits Continue levothyroxine Subjective Date/time seen: 01/04/21 09:25 Interval history: Date of service: 01/04/2021 Lucretia Rodriguez is a 55-year-old female with history of coronary artery disease with history of UT in 2010 established with midwife practitioner Dr. Alexandre, hypertension, hypothyroidism, type 2 diabetes mellitus with neuropathy and gastroparesis, LISSETTE, and anemia who is seen in follow-up for chest pain and right arm pain. She states his pain in her right arm feels similarly to her last UT. Her pain has not improved. She describes it as a heaviness and aching sensation in the right arm up to the right shoulder and neck. She denies jaw pain. She has anterior chest tightness. She also endorses feeling anxious and nauseous. Denies diaphoresis. She has headache. She denies any episodes of vomiting. No left arm pain. Denies GERD symptoms. She reported mild DENISE yesterday but at this time denies shortness of breath. No dizziness or lightheadedness. She endorses occasional dry cough. No abdominal pain. No diarrhea. No urinary symptoms. She is NPO at this time and has not eaten yet today. Review of Systems Review of Systems: All systems reviewed & are unremarkable except as noted in HPI and below Exam Narrative: Exam Narrative: Ms. Rodriguez is an obese, well-appearing 55-year-old female who is lying semi recumbent in bed with her right arm supported by a pillow. She appears comfortable and is in NARD. Neuro: awake, alert and oriented x4, speech clear, no focal neuro deficits noted HEENMT: normocephalic, atraumatic, EOMI, sclerae anicteric, moist oral mucosa, tongue midline, nares patent Neck: supple, no lymphadenopathy Chest: No tenderness to palpation of anterior chest wall Respiratory: clear to auscultation bilaterally, nonlabored breathing Cardio: regular rate, regular rhythm with S1-S2 Abdomen: Obese, nondistended, normoactive bowel sounds, soft, nontender to palpation, no rigidity or guarding Extremities: Right arm is nontender to palpation with full ROM. Bilateral lower extremities without edema, erythema, cyanosis, clubbing, or tenderness to palpation, DP pulses 2+ bilaterally Skin: no rashes o
--- NOTE | 2021-01-04 10:19 | EST_ITS ---
Patient Info Name: Lucretia Rodriguez Age: 55 years : 1965 Gender: Female Ht: 63 in Wt: 263 lbs BSA: 2.37 m2 Heart Rhythm: Sinus Rhythm Exam Date: 01/04/2021 1:17 PM Exam Location: [facility] Stress Patient Status: Inpatient Admit Date: 01/03/2021 Staff Ordering Physician: Kike Alexandre MD Attending Provider: Ashlee Pereyra PA-C Exercise Technologist: Azalia Patel CT Exercise Physician: Kike Alexandre MD Exam Type: CA stress demetrius w NM Study Info A regadenoson stress test was performed. Summary 1. No abnormal ST/T wave changes with Lexiscan administration. 2. No arrhythmias were observed during the examination. 3. Please correlate with nuclear medicine images, reported separately. 4. No chest discomfort with stress test. Protocol: Lexiscan Stress ECG Details Stage: REST Duration (min): 5 min : 8 sec HR (bpm): 71 SBP (mmHg): 105 DBP (mmHg): 60 Stage: REST Duration (min): 10 min : 20 sec HR (bpm): 71 SBP (mmHg): 105 DBP (mmHg): 60 Stage: STAGE 1 Duration (min): 0 min : 59 sec HR (bpm): 73 SBP (mmHg): 101 DBP (mmHg): 68 Stage: RECOVERY Duration (min): 1 min : 0 sec HR (bpm): 91 SBP (mmHg): 101 DBP (mmHg): 68 Stage: RECOVERY Duration (min): 2 min : 0 sec HR (bpm): 87 SBP (mmHg): 101 DBP (mmHg): 68 Stage: RECOVERY Duration (min): 3 min : 0 sec HR (bpm): 82 SBP (mmHg): 121 DBP (mmHg): 77 Stage: RECOVERY Duration (min): 3 min : 2 sec HR (bpm): 82 SBP (mmHg): 121 DBP (mmHg): 77 Rest HR: 71 bpm Peak HR: 91 bpm Rest Sys BP: 105 mmHg Peak Sys BP: 121 mmHg Max Pred HR: 164 bpm % Max Pred HR: 55 % Target HR: 139 bpm Max RPP: 11,011 bpm*mmHg Termination Reason: Completed protocol Total Time: 1 min : 0 sec Rest Venegas BP: 60 mmHg Peak Venegas BP: 77 mmHg Total Dose: 0.4 mg Resting ECG Normal sinus rhythm. Low voltage QRS. Stress ECG No abnormal ST/T wave changes with Lexiscan administration. Arrhythmias No arrhythmias were observed during the examination. Report Signatures
--- NOTE | 2021-01-04 10:20 | PM.CNCAR ---
Assessment and Plan Assessment and plan (1) Coronary artery disease: Code(s): I25.10 - Atherosclerotic heart disease of [place] coronary artery without angina pectoris Status: Acute Assessment and Plan: Highly atypical transient bandlike discomfort across her chest predominant upper right arm/shoulder constant achiness ruled out for myocardial infarction with negative serial cardiac enzymes and no ischemic changes on EKG. Symptoms most improved with Melbeta and warm heat compress. Patient has known documented moderate coronary disease not physiologically significant December 2019 with IFR measurements of 1.0 respectively in the mid circumflex and mid RCA 60-70% stenosis, very large caliber vessels. Symptoms highly unlikely to be cardiac in nature, the patient would feel more comfortable pursuing ischemic evaluation given her past history. I explained to her I expect her stress this may return abnormal due to coronary anatomy as documented 1 year ago, however, still do not feel her symptoms are cardiac in nature. We may consider up titration of isosorbide mononitrate yet local management for reproducible right musculoskeletal arm pain per primary service advised. Explained the greatest risk reduction is control risk factors including blood pressure, diabetes mellitus, lifestyle with exercise, diet, weight loss and control of LISSETTE. Patient has a history of multiple sclerosis which may be contributing yet she denies similar pain associated with this condition. Anticipated discharge home later today with follow-up as an outpatient after review of Lexiscan stress test. Patient verbalized understanding and agreed with plan of care. All questions answered to her satisfaction. We discussed risks versus benefits and alternatives with regards invasive versus noninvasive ischemic evaluation. I indicated that while I do not feel strongly ischemic evaluation was warranted based on the nature of her symptoms given her extensive history further clarification of this issue and her concern for overlap symptoms will incorporate this into our decision making process as appropriate. Continue aspirin, statin, beta-ronna, nitrates (2) Right upper limb pain: Code(s): M79.601 - Pain in right arm Status: Acute Assessment and Plan: As above, reproducible, atypical worse with movement improved with Melbeta and local heat. (3) Dyslipidemia associated with type 2 diabetes mellitus: Code(s): E11.69 - Type 2 diabetes mellitus with other specified complication; E78.5 - Hyperlipidemia, unspecified Status: Acute Assessment and Plan: Per primary service. Continue medical therapy and statin. Check lipid panel. (4) Hypertension associated with type 2 diabetes mellitus: Code(s): E11.59 - Type 2 diabetes mellitus with other circulatory complications; I10 - Essential (primary) hypertension Status: Acute Assessment and Plan: Fair control overall but not ideal. Increase Imdur to 60 mg daily. History of Present Illness History of Present Illness Consult date/time: Date of Service: 01/04/21 10:20 Cardiology consultation at the request of Mya Gimenez of the [facility] service for opinion regarding complaints of right arm pain and chest pain with history of CAD. Requesting physician: Mya Gimenez PA-C Consult reason: chest pain Reason For Visit: chest pain Narrative: Patient is a pleasant 55-year-old female with a past medical history significant coronary disease, previous stent implantation, hypertension, diabetes mellitus, dyslipidemia, morbid obesity, untreated LISSETTE, multiple sclerosis diagnosed 2005 he states she was in her usual state of health when approximately 11:15 a.m. yesterday while sitting at a computer she developed rather sudden onset mid right arm aching pain which occasionally extended into her right shoulder. She states this since his knee became intense enough she took 3 sublingual
[2021-01-04 11:05] LABS: Cholesterol 135 mg/dL (0-200); HDL Direct 37 mg/dL; Triglycerides 178 mg/dL (<150)
[2021-01-04 11:17] LABS: LDL Cholesterol Direct 72 mg/dL
--- NOTE | 2021-01-04 12:08 | PC.NURSE ---
Pt to Lexiscan via wheelchair
[2021-01-04 12:40] LABS: Glucose Point of Care 138 (65-105)
--- NOTE | 2021-01-04 14:30 | PC.NURSE ---
Pt returned via wheelchair from [facility]
--- NOTE | 2021-01-04 15:36 | PM.DS ---
DS: Admitting Diagnosis Admitting Diagnosis Admitting Diagnosis: Right upper extremity pain DS: Discharge Diagnosis Discharge Diagnosis (1) Right upper limb pain: Code(s): M79.601 - Pain in right arm Status: Acute Assessment and Plan: Complaints of pain in right arm extending to right shoulder and neck described as heaviness/aching sensation. Patient is concerned that this is her anginal equivalent as she had similar symptoms prior to her MD in 2010. Troponins negative x3. No acute findings noted on EKG. Lexiscan stress test performed given her cardiac history was negative with no onset of chest pain and no worsening of arm pain. This is likely musculoskeletal in etiology. Pain did improve with heat and elevation. Recommend continuation of supportive care including elevation, heat, ice, and analgesics. Follow-up with PCP if no improvement (2) Coronary artery disease: Code(s): I25.10 - Atherosclerotic heart disease of [place] coronary artery without angina pectoris Status: Acute Assessment and Plan: With associated symptoms of right arm pain and chest tightness as described above. She was seen in consultation by Cardiology and Lexiscan stress test was performed. Continue aspirin, atorvastatin, metoprolol, and isosorbide mononitrate. (3) Hypertension: Code(s): I10 - Essential (primary) hypertension Status: Acute Assessment and Plan: BP reviewed and was generally well controlled. Continue metoprolol and hydrochlorothiazide (4) Type 2 diabetes mellitus: Code(s): E11.9 - Type 2 diabetes mellitus without complications Status: Acute Assessment and Plan: A1c is 7.9. Accu-Cheks, sliding scale insulin, and hypoglycemic protocol initiated during her stay. Continue metformin as an outpatient. (5) Hypothyroidism: Code(s): E03.9 - Hypothyroidism, unspecified Status: Acute Assessment and Plan: TSH is within normal limits. Continue levothyroxine DS: Summary Hospital Course Reason for hospitalization: Right arm pain Hospital Course: Date of admission: 01/03/2021 Date of discharge: 01/04/2021 Lucretia Rodriguez is a 55-year-old female with history of coronary artery disease with history of MD in 2010 established with commercial litigation attorney Dr. Alexandre, hypertension, hypothyroidism, type 2 diabetes mellitus with neuropathy and gastroparesis, LISSETTE, and anemia who presented to the emergency department on 01/03/2021 ongoing for several hours with radiation to the right shoulder and anterior chest. She previously called 911 earlier in the day with similar symptoms but ultimately chose not to be transported to the ED. However, her symptoms persisted therefore she proceeded to the emergency department at the recommendation of her commercial litigation attorney. Upon presentation to the emergency department, her vital signs were stable, she is afebrile, CBC and BMP was unremarkable, troponin negative, chest x-ray with no acute cardiopulmonary findings, an EKG was reviewed with no ST changes and showed normal sinus rhythm. She was admitted to the hospitalist service for further evaluation and management and was seen in consultation by cardiology. She had a negative Lexiscan stress test. Her right arm pain was felt to be more likely musculoskeletal. Acute coronary syndrome was ruled out with negative troponins and EKG. Her pain improved and she requested discharge home. I discussed the case with her commercial litigation attorney who was in agreement with this plan. She was determined to no longer require inpatient care and was felt to be stable for discharge. We discussed worrisome signs and symptoms for which to return and she was educated on her medications. She will need to follow-up with her commercial litigation attorney as previously scheduled in follow-up with her PCP in 1-2 weeks, or sooner should her right arm pain persist. She was discharged in hemodynamically stable condition on 01/04/2021. Status
== END 2021-01-04 16:15 | disposition home or self-care (01) ==
LOC: ANHED 17:14 → ANHIMU 17:53
PROVIDERS: Internal Medicine Cardiovascular Disease; Physician Assistant; Admitting Provider Internal Medicine; Emergency Provider Emergency Medicine; PCP Physician Assistant; Visit Provider Family Medicine
DX: R07.9 Chest pain, unspecified (principal); M79.601 Pain in right arm; I25.2 Old myocardial infarction; I25.10 Atherosclerotic heart disease of native coronary artery without angina pectoris; E78.5 Hyperlipidemia, unspecified; E11.42 Type 2 diabetes mellitus with diabetic polyneuropathy; I10 Essential (primary) hypertension; Z87.891 Personal history of nicotine dependence; Z85.828 Personal history of other malignant neoplasm of skin; Z95.5 Presence of coronary angioplasty implant and graft; Z79.4 Long term (current) use of insulin
CPT/HCPCS: 36415; 71046; 78452; 80048; 80053; 80061; 82948; 83036; 83735; 84443; 84484; 85025; 85027; 85610; 85730; 93005; 93017; 99285; A9270; A9502; G0378; J2785

== ENCOUNTER → 2021-02-13 15:39 | Outpatient (CLI) | payer OTHER, SELFPAY ==
--- NOTE | ~2021-02-13 | MM_ITS ---
EXAMINATION: MM screening britney BI w barrett HISTORY: Screening mammogram TECHNIQUE: Craniocaudal and mediolateral oblique 3-D tomosynthesis images were obtained and synthetic 2-D images were generated. CAD analysis was submitted and interpreted. COMPARISON: No prior mammogram is available for comparison at this institution. BREAST PARENCHYMAL COMPOSITION: The breasts are almost entirely fatty. FINDINGS: There is no evidence of suspicious mass, calcification, or architectural distortion to sugg est malignancy in either breast. There has been no suspicious interval change. IMPRESSION: 1. No mammographic evidence of malignancy. 2. Recommend routine screening mammography in one year. BI-RADS Category 1: Negative Reviewed, dictated and finalized at location A.
== END ==
PROVIDERS: Visit Provider Physician Assistant
DX: Z12.31 Encounter for screening mammogram for malignant neoplasm of breast (principal)
CPT/HCPCS: 77063; 77067

== ENCOUNTER → 2021-04-04 09:59 | Outpatient (CLI) | payer OTHER, SELFPAY ==
--- NOTE | ~2021-04-04 | MR_ITS ---
EXAMINATION: MR forearm RT wo/w con DATE: 04/04/2021 11:07 INDICATION: Soft tissue mass at the right forearm TECHNIQUE: Magnetic resonance imaging (MRI) of the right forearm was performed without and with 20 mL Multihance intravenous contrast. A marker was placed over the mass. Sequences included axial, sagit sana and coronal T1-weighted FSE, axial T2-weighted FS FSE, sagittal and coronal fluid sensitive FSE S TIR, axial T1-weighted FS FSE and postcontrast axial, sagittal and coronal T1-weighted FS FSE. Additi onal smaller field of view noncontrast axial T1-weighted FSE and postcontrast axial T1-weighted FS FS E. Were obtained at the distal forearm in the region of the mass. COMPARISON: None. FINDINGS: Normal bone marrow signal throughout. Musculature of the right forearm appears normal with normal bul k and signal. There is tendinopathy along the extensor carpi ulnaris tendon which is subluxed from it s normal location at the extensor carpi ulnaris groove consistent with tear of the extensor carpi uln pavel subsheath. Remainder of the flexor and extensor tendons are normal. Small joint effusion at the distal radioulnar joint. No other abnormal fluid collections. A marker indicating the palpable abnorm ality of concern is positioned dorsal to the metadiaphyseal region of the distal radius. There is a p rominent patent and contrast enhancing dorsal subcutaneous branch of the cephalic vein which lies imm ediately deep to the marker and which could represent the palpable abnormality of concern. No other m asses or abnormally enhancing lesions. IMPRESSION: 1. No abnormal masses or fluid collections identified at the region of the palpable abnormality which could represent a prominent dorsal branch of the right cephalic vein. 2. Tear of the extensor carpi ulnaris subsheath with tendinopathy without discrete tear of the extens or carpi ulnaris tendon which is subluxed from the ECU groove. 3. Small joint effusion at the distal radioulnar joint. Reviewed, dictated and finalized at location A. IMPRESSION: 1. No abnormal masses or fluid collections identified at the region of the palp able abnormality which could represent a prominent dorsal branch of the right c ephalic vein. 2. Tear of the extensor carpi ulnaris subsheath with tendinopathy without discr ete tear of the extensor carpi ulnaris tendon which is subluxed from the ECU gr oove. 3. Small joint effusion at the distal radioulnar joint.
[2021-04-04 10:28] LABS: Estimated Glomerular Filt Rate > 60
== END ==
PROVIDERS: PCP Physician Assistant; Visit Provider Physician Assistant
DX: M25.421 Effusion, right elbow (principal)
CPT/HCPCS: 73220; A9577

== ENCOUNTER → 2023-01-02 15:29 | Outpatient (CLI) | payer OTHER, SELFPAY ==
--- NOTE | ~2023-01-02 | MM_ITS ---
EXAMINATION: MM screening britney BI w barrett HISTORY: Screening mammogram TECHNIQUE: Craniocaudal and mediolateral oblique 3-D tomosynthesis images were obtained and synthetic 2-D images were generated. CAD analysis was submitted and interpreted. COMPARISON: 02/23/2021 bilateral screening mammogram BREAST PARENCHYMAL COMPOSITION: The breasts are almost entirely fatty. FINDINGS: There is no evidence of suspicious mass, calcification, or architectural distortion to sugg est malignancy in either breast. There has been no suspicious interval change. IMPRESSION: 1. No mammographic evidence of malignancy. 2. Recommend routine screening mammography in one year. BI-RADS Category 1: Negative Reviewed, dictated and finalized at location A.
== END ==
PROVIDERS: PCP Physician Assistant; Visit Provider Physician Assistant
DX: Z12.31 Encounter for screening mammogram for malignant neoplasm of breast (principal)
CPT/HCPCS: 77063; 77067

== ENCOUNTER → 2023-09-15 13:18 | Outpatient (CLI) | payer OTHER, SELFPAY ==
--- NOTE | ~2023-09-15 | XR_ITS ---
Right Shoulder Technique: AP and axillary views were obtained. Clinical History: Pain Findings: No fracture or dislocation is seen. Osseous alignment is anatomic. The glenohumeral and acr omioclavicular joint spaces are preserved. Soft tissues are unremarkable. Impression: Unremarkable right shoulder radiographs. Reviewed, dictated and finalized at [facility]. T ROCK LAYER Impression: Unremarkable right shoulder radiographs.
== END ==
DX: M25.511 Pain in right shoulder (principal)
CPT/HCPCS: 73030

== ENCOUNTER 2024-02-13 10:48 | Outpatient (CLI) | payer OTHER, SELFPAY ==
--- NOTE | ~2024-02-13 | MM_ITS ---
EXAMINATION: MM screening britney BI w barrett HISTORY: Screening mammogram TECHNIQUE: Craniocaudal and mediolateral oblique 3-D tomosynthesis images were obtained and synthetic 2-D images were generated. CAD analysis was submitted and interpreted. COMPARISON: January 02, 2023, February 13, 2021 bilateral screening mammogram examinations BREAST PARENCHYMAL COMPOSITION: The breasts are almost entirely fatty. FINDINGS: There is no evidence of suspicious mass, calcification, or architectural distortion to sugg est malignancy in either breast. There has been no suspicious interval change. IMPRESSION: 1. No mammographic evidence of malignancy. 2. Recommend routine screening mammography in one year. BI-RADS Category 1: Negative Reviewed, dictated and finalized at location A.
== END 2024-02-13 10:49 ==
LOC: MICIMG 10:49
PROVIDERS: PCP Physician Assistant Medical; Visit Provider Physician Assistant Medical
DX: Z12.31 Encounter for screening mammogram for malignant neoplasm of breast (principal)
CPT/HCPCS: 77063; 77067

== ENCOUNTER 2024-05-17 15:04 | Outpatient (CLI) | payer OTHER, SELFPAY ==
--- NOTE | ~2024-05-17 | XR_ITS ---
XR hip BI wo pelvis Ordering provider: [place] Penn, VERONICA History: . FALL FROM LADDER . Comparison: None. FINDINGS: BONES: No acute fracture or dislocation. HIP JOINT SPACES: Bilateral narrowing of the joint suggestive of mild to moderate osteoarthritic abdi ges. PUBIC SYMPHYSIS: Normal. SOFT TISSUES: Normal. IMPRESSION: No acute osseous abnormality of the bilateral hips and pelvis. Reviewed, dictated and finalized at location A.
--- NOTE | ~2024-05-17 | XR_ITS ---
3 VIEWS LUMBAR SPINE Ordering provider: [place] Penn, PA History: . FALL FROM LADDER . Comparison: None. FINDINGS: VERTEBRAL BODIES: No visible fracture or subluxation. DISK SPACES: Narrowing of all the disks. Multilevel facet joint disease. SOFT TISSUES: Gastric banding is noted. Vascular calcifications. IMPRESSION: No acute osseous abnormality lumbar spine. Multilevel degenerative disc disease. Reviewed, dictated and finalized at location A.
== END 2024-05-17 15:05 | disposition home or self-care (01) ==
LOC: MICIMG 15:05
PROVIDERS: PCP Physician Assistant Medical; Visit Provider Physician Assistant Medical
DX: M51.36 Other intervertebral disc degeneration, lumbar region (principal)
CPT/HCPCS: 72100; 73521

== ENCOUNTER 2024-05-28 07:43 | Outpatient (CLI) | payer OTHER, SELFPAY ==
--- NOTE | ~2024-05-28 | US_ITS ---
EXAMINATION: US soft tissue UE LT DATE: 05/28/2024 08:05 INDICATION: Localized swelling, mass, and mild, left upper limb. TECHNIQUE: Multiple grayscale and Doppler ultrasound images of the left upper limb were obtained. COMPARISON: None FINDINGS: There is no abnormal mass in the patient's area of concern in left upper arm. IMPRESSION: 1. No abnormal mass in the patient's area of concern in left upper arm. Reviewed, dictated and finalized at location A.
== END 2024-05-28 07:44 | disposition home or self-care (01) ==
LOC: MICIMG 07:43
PROVIDERS: PCP Physician Assistant Medical; Visit Provider Physician Assistant Medical
DX: R22.32 Localized swelling, mass and lump, left upper limb (principal); W11.XXXA Fall on and from ladder, initial encounter
CPT/HCPCS: 76882

== ENCOUNTER 2024-09-11 21:14 | Emergency (ER) | payer OTHER, SELFPAY ==
--- NOTE | ~2024-09-11 | CT_ITS ---
Clinical Indication: Chest pain, abdominal pain CT Scan of the Chest, Abdomen, and Pelvis with Contrast: Technique: Contiguous sections were acquired throughout the chest, abdomen, and pelvis after intraven ous administration of 100 cc of Omnipaque 350. Dose reduction technique was used on this scan by kanu barrera automated exposure control and iterative reconstruction technique. The dose-length product (DL P) was 2094.85 mGy-cm. Comparison: 11/05/2016 Findings: There is no evidence of any significant mediastinal, hilar or axillary lymphadenopathy. No pulmonary embolus seen. No aortic aneurysm or dissection. Possible esophageal wall thickening, which could shahab mukesh esophagitis. There is no evidence of pleural or pericardial effusion. The lungs are clear. No pulmonary nodules or infiltrates are noted. The liver, spleen, pancreas, left adrenal gland, and kidneys are within normal limits. Stable 3.3 cm right adrenal nodule. Gallbladder absent. There are atherosclerotic calcifications of the aorta. No lymphadenopathy. No bowel obstruction or bowel wall thickening. Gastric lap band in place. There is no evidence to sug gest acute appendicitis. Urinary bladder is unremarkable. No pelvic mass seen. No ascites. Impression: Possible esophagitis. No other acute abnormality seen. No pulmonary embolus seen. Stable 3.3 cm right adrenal nodule. Stability since 2016 is compatible with benignity. Reviewed, dictated and finalized at location . UNT SUPPORT MANAGER Impression: Possible esophagitis. No other acute abnormality seen. No pulmonary embolus see n. Stable 3.3 cm right adrenal nodule. Stability since 2016 is compatible with yohan ignity.
[2024-09-11 21:14] VITALS: BP 144/91; PULSE 121; RESP 21; TEMP 36.9; O2SAT 95
--- NOTE | 2024-09-11 21:24 | ECG_ITS ---
Test Date: 2024-09-11 21:58:18 Measurements Intervals [place] Rate: 112 P: 44 [place]: 171 QRS: -22 QRSD: 109 T: 49 QT: 330 QTc: 451 Interpretive Statements SINUS TACHYCARDIA BORDERLINE LEFT AXIS DEVIATION [QRS AXIS < -20] LOW QRS VOLTAGE IN PRECORDIAL LEADS [QRS DEFLECTION < 1.0 mV IN CHEST LEADS] NONSPECIFIC ST & T-WAVE ABNORMALITY No previous ECG available for comparison Electronically Signed On 09-14-2024 16:49:22 BALL MACHINE OPERATOR by Sammy Velez M.D.
[2024-09-11] MEDS: SODIUM CHLORIDE 0.9% IV 1,000 ML 999 ML IV CONT (21:40)
[2024-09-11] MEDS: MORPHINE SULFATE (*CRX) 4 MG/ML INJ IV PUSH (21:41)
[2024-09-11] MEDS: ONDANSETRON INJ 4 MG/2 ML VIAL IV PUSH (21:41)
[2024-09-11 21:57] LABS: Basophils Percent Auto 0.5 % (0.2-1.2); Eosinophils Percent Auto 0.3 % (0-4.4); Hematocrit 43.4 % (37.0-47.0); Hemoglobin 14.2 g/dL (12.0-15.0); Immature Granulocyte Absolute 0.02 K/mm3 (0.00-0.031); Immature Granulocyte Percent A 0.3 % (0-0.5); Lymphocytes Absolute Auto 0.33 K/mm3 (0.9-3.2); Lymphocytes Percent Auto 5.2 % (18.3-44.2); Mean Corpuscular HGB Conc 32.7 g/dl (32-36); Mean Corpuscular Hemoglobin 26.2 pg (26-34); Mean Corpuscular Volume 79.9 fl (80-100); Mean Platelet Volume 10.5 fl (7.4-10.4); Monocytes Absolute Auto 0.2 K/mm3 (0.1-0.6); Monocytes Percent Auto 3.4 % (2.6-8.5); Neutrophils Absolute Auto 5.8 K/mm3 (1.3-6.7); Neutrophils Percent Auto 90.3 % (45.5-73.1); Platelet Count Result 206 k/mm3 (150-375); Red Blood Count 5.43 M/mm3 (4.2-5.4); Red Cell Distribution Width 16.5 % (11.5-14.5); White Blood Count 6.4 K/mm3 (4.5-10.0)
[2024-09-11 22:01] VITALS: BP 132/87; PULSE 113; RESP 20; O2SAT 93
[2024-09-11 22:16] LABS: Prothrombin Time 13.2 Seconds (11.1-14.7)
[2024-09-11 22:17] LABS: Partial Thromboplastin Time 27.3 Seconds (22.3-36.8)
--- NOTE | 2024-09-11 22:32 | ED.GENADULT ---
HPI - General Adult General Chief complaint: Nausea/Vomiting/Diarrhea Stated complaint: N/V/D, FLU-LIKE S/S, CP Time Seen by Provider: 09/11/24 21:18 History of Present Illness HPI narrative: Patient is 59-year-old female who presents emergency department with chief complaint of nausea vomiting diarrhea the patient reports he is also having pain in the back of her chest and also has having cold sweats. The patient reports she has prior history of cardiac disease reports that she has also had a gastric sleeve the patient reports that she is not having active midsternal chest pain but does have pain comes up her abdomen up into her back patient states she is unsure if she had a fever with this. Related Data Home Medications ?Medication ?Instructions ?Recorded ?Confirmed ?Last Taken ?Type tramadol 50 mg tablet (Ultram) 50 mg PO DAILY PRN pain 12/19/19 01/03/21 12/19/19 History 1845 amitriptyline 75 mg tablet 100 mg PO HS 12/20/19 01/03/21 01/02/21 History cholecalciferol (vitamin D3) 125 125 mcg PO HS 12/20/19 01/03/21 01/02/21 History mcg (5,000 unit) tablet (Vitamin D3) linaclotide 290 mcg capsule 290 mcg PO DAILY 12/20/19 01/03/21 01/03/21 History (Linzess) metformin 500 mg tablet 1,000 mg PO BIDWM 12/20/19 01/03/21 01/03/21 History ondansetron HCl 8 mg tablet 8 mg PO QPM PRN Nausea And Vomiting 12/20/19 01/03/21 01/02/21 History pantoprazole 40 mg tablet,delayed 40 mg PO QAM 12/20/19 01/03/21 01/03/21 History release (Protonix) B Complex-Vitamin B12 1,000 mcg PO HS 01/03/21 01/03/21 01/02/21 History atorvastatin 40 mg tablet 40 mg PO HS 01/03/21 01/03/21 01/02/21 History dapagliflozin propanediol 10 mg 10 mg PO QAM 01/03/21 01/03/21 01/03/21 History tablet (Farxiga) hydrochlorothiazide 12.5 mg tablet 25 mg PO DAILY 01/03/21 01/03/21 01/03/21 History melatonin 10 mg tablet 10 mg PO HS 01/03/21 01/03/21 01/02/21 History Allergies Allergy/AdvReac Type Severity Reaction Status Date / Time latex Allergy Unknown Redness of Verified 09/11/24 21:25 Skin Sulfa (Sulfonamide Allergy Unknown Redness of Verified 09/11/24 21:25 Antibiotics) Skin Review of Systems Review of Systems: A 10 system review of systems was completed on the patient and is negative except for what is stated in the HPI. Nursing and ancillary documentation was reviewed. [facility] Past Medical History Medical History History of squamous cell carcinoma of skin Anemia Osteoarthritis Gastroesophageal reflux disease Obstructive sleep apnea Does not use CPAP. Diabetic peripheral neuropathy Coronary artery disease With history of stent. Type 2 diabetes mellitus Hypothyroidism Myocardial infarction Gastroparesis Hypertension Surgical History Surgical History History of squamous cell carcinoma excision Right shoulder. History of tubal ligation History of arthroplasty of left knee (~2016) History of laparoscopic adjustable gastric banding (~2009) History of cholecystectomy Stented coronary artery (~2010) Family History Family History Mother Family history of arthritis Hypercholesteremia Myocardial infarct Sibling Family history of arthritis Family history of type 2 diabetes mellitus Bipolar 1 disorder Scarlet fever Father Patient's father is in good health Myocardial infarct Grandparent Family history of lung cancer Social History Social History Social History: Surrogate decision maker: Tommy ruvalcaba, daughter. Code status: Full code. Smoking packs per day: 0.5 Smoking cigarettes per day: 10.0 Years smoked: 37 Smoking pack-years: 18.50 Smoking status: Former smoker Tobacco type: cigarettes Additional smoking assessment comments: quit 2019, 1/2ppd since 17y/o Alcohol intake: never Substance use: never Additional living arrangements comments: The patient lives alone in [place]. 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 Gender identity (if verbalized by the patient): Female Spiritual care concerns: No Exam Narrative: GENERAL: Well-appearing, well-nourished, and in no acute distress. HEAD: Normocephalic, atraumatic. EYES: PERRLA and EOMI. ENT: Nares clear, no rhinorrhea or epistaxis. Mucous membranes moist. NECK: Supple. CHEST: Clear to auscultation. No respiratory distress. HEART: Regular rate and rhythm. No murmur heard. Normal peripheral pulses. ABDOMEN: Soft, nontender, nondistended, normal active bowel sounds. EXTREMITIES: Normal range of motion. No edema. SKIN: Warm, dry, no rash. NEURO: No focal deficits. Alert and oriented x3. PSYCH: Normal mood and affect. Course Vital Signs Vital signs: Vital Signs Temperature 36.9 C 09/11/24 21:14 Pulse Rate 121 H 09/11/24 21:14 Respiratory Rate 21 H 09/11/24 21:14 Blood Pressure 144/91 H 09/11/24 21:14 Pulse Oximetry 95 09/11/24 21:14 Oxygen Delivery Room Air 09/11/24 21:14 Temperature 36.9 C 09/11/24 21:14 Pulse Rate 113 H 09/12/24 02:01 Respiratory Rate 21 H 09/12/24 02:01 Blood Pressure 134/79 09/12/24 02:01 Pulse Oximetry 92 09/12/24 02:01 Oxygen Delivery Room Air 09/11/24 21:14 Medical Decision Making [facility] Narrative Medical decision making narrative: Differential diagnosis includes intra-abdominal infection, gastroenteritis, ACS, Laboratory studies were obtained on the patient showed a CBC a white count of 6.4 electrolytes within normal limits lactate was normal 1.7 magnesium was 1.4 patient's magnesium was replaced troponin was 0 hours 3 hour urinalysis showed no evidence UTI COVID flu RSV were negative Patient is feeling better after receiving IV fluids and antiemetics. Vital Signs Vital Signs: Vital Signs Temperature 36.9 C 09/11/24 21:14 Pulse Rate 121 H 09/11/24 21:14 Respiratory Rate 21 H 09/11/24 21:14 Blood Pressure 144/91 H 09/11/24 21:14 Pulse Oximetry 95 09/11/24 21:14 Oxygen Delivery Room Air 09/11/24 21:14 Temperature 36.9 C 09/11/24 21:14 Pulse Rate 113 H 09/12/24 02:01 Respiratory Rate 21 H 09/12/24 02:01 Blood Pressure 134/79 09/12/24 02:01 Pulse Oximetry 92 09/12/24 02:01 Oxygen Delivery Room Air 09/11/24 21:14 Lab Data 09/11/24 21:48 09/11/24 21:48 Labs: Lab Results 09/11/24 09/12/24 Range/Units 21:48 01:25 WBC 6.4 (4.5-10.0) K/mm3 RBC 5.43 H (4.2-5.4) M/mm3 Hgb 14.2 (12.0-15.0) g/dL Hct 43.4 (37.0-47.0) % MCV 79.9 L (80-100) fl MCH 26.2 (26-34) pg MCHC 32.7 (32-36) g/dl RDW 16.5 H (11.5-14.5) % Plt Count 206 (150-375) k/mm3 MPV 10.5 H (7.4-10.4) fl Immature Gran % (Auto) 0.3 (0-0.5) % Neut % (Auto) 90.3 H (45.5-73.1) % Lymph % (Auto) 5.2 L (18.3-44.2) % Boundary % (Auto) 3.4 (2.6-8.5) % Eos % (Auto) 0.3 (0-4.4) % Baso % (Auto) 0.5 (0.2-1.2) % Lymph # (Auto) 0.33 L (0.9-3.2) K/mm3 Boundary # (Auto) 0.2 (0.1-0.6) K/mm3 Eos # (Auto) 0.0 (0-0.3) K/mm3 Baso # (Auto) 0.0 (0.0-0.1) K/mm3 Abs Immat Gran (auto) 0.02 (0.00-0.031) K/mm3 Absolute Neuts (auto) 5.8 (1.3-6.7) K/mm3 Absolute Nucleated RBC 0.000 (0.0-0.012) K/mm3 Nucleated RBC % 0.0 (0.0-0.2) % PT 13.2 (11.1-14.7) Seconds INR 1.0 APTT 27.3 (22.3-36.8) Seconds Sodium 132 L (137-145) mmol/L Potassium 3.8 (3.4-5.0) mmol/L Chloride 104 (98-107) mmol/L Carbon Dioxide 18 L (22-30) mmol/L Anion Gap 10 (4-12) mmol/L BUN 24 H (7-17) mg/dL Creatinine 0.70 (0.7-1.0) mg/dL Estim Creat Clear Calc 86 ml/min Estimated GFR > 60 (59 - ) Glucose 141 H (65-110) mg/dL Lactic Acid 1.7 (0.7-2.0) mmol/L Calcium 8.9 (8.4-10.2) mg/dL Magnesium 1.4 L (1.6-2.3) mg/dL Total Bilirubin 0.9 (0.2-1.3) mg/dL AST 41 H (14-36) U/L ALT 28 (6-35) U/L Alkaline Phosphatase 74 (38-126) U/L Troponin I < 0.012 < 0.012 (0.000-0.034) ng/mL NT-Pro-B Natriuret Pep 87 (19.9-100) pg/mL Total Protein 8.0 (6.3-8.2) g/dL Albumin 4.3 (3.5-5.1) g/dL Lipase 42 (23-300) U/L Procalcitonin 0.4 ng/mL Urine Color Yellow (Yellow) Urine Appearance Clear (Clear) Urine pH 5.0 (5.0-9.0) Ur Specific [place] 1.041 H (1.001-1.035) Urine Protein Negative (Negative) mg/dL Urine Glucose (UA) Negative (Negative) mg/dL Urine Ketones 1+ H (Negative) mg/dL Ur Blood (Man) Negative (Negative) Urine Nitrate Negative (Negative) Urine Bilirubin Negative (Negative) Urine Urobilinogen 0.2 (<2.0) mg/dL Leukocyte Esterase Rfl Negative (Negative) JUAN/UL Influenza A (RT-PCR) Negative (Negative) Influenza B (RT-PCR) Negative (Negative) RSV (RT-PCR) Negative (Negative) SARS-CoV-2 RNA (RT-PCR) Negative (Negative) Discharge Plan Discharge Clinical Impression: Gastroenteritis, Abdominal pain Patient Disposition: Home, Self-Care Condition: Stable Instructions: Antibiotic Form, Gastroenteritis (ED), Abdominal Pain (ED) Patient Language: Montenegrin Prescriptions: New dicyclomine 20 mg tablet 20 mg PO QID PRN (Reason: abdominal discomfort) Qty: 20 0RF ondansetron 4 mg tablet,disintegrating 4 mg PO Q8H PRN (Reason: nausea and vomiting) Qty: 10 0RF No Action B Complex-Vitamin B12 1,000 mcg PO HS melatonin 10 mg Tablet 10 mg PO HS Farxiga 10 mg Tablet 10 mg PO QAM atorvastatin 40 mg tablet 40 mg PO HS hydrochlorothiazide 12.5 mg tablet 25 mg PO DAILY tramadol [Ultram] 50 mg Tablet 50 mg PO DAILY PRN (Reason: pain) amitriptyline 75 mg Tablet 100 mg PO HS ondansetron HCl 8 mg Tablet 8 mg PO QPM PRN (Reason: Nausea And Vomiting) Rx Instructions: may take up to three times a day pantoprazole [Protonix] 40 mg Tablet,Delayed Release (Dr/Ec) 40 mg PO QAM cholecalciferol (vitamin D3) [Vitamin D3] 125 mcg (5,000 unit) Tablet 125 mcg PO HS Linzess 290 mcg Capsule 290 mcg PO DAILY metformin 500 mg tablet 1,000 mg PO BIDWM isosorbide mononitrate 30 mg Tablet Extended Release 24 Hr 30 mg PO QAM Qty: 30 3RF aspirin [Adult Aspirin Regimen] 81 mg tablet,delayed release (DR/EC) 81 mg PO DAILY Qty: 30 3RF nitroglycerin 0.4 mg tablet, sublingual 0.4 mg SUBLINGUAL DIRECTED PRN (Reason: chest pain) Qty: 25 3RF Rx Instructions: 1 tablet sublingual Q 5 minutes x3 doses p.r.n. chest pain If no relief call 911 lisinopril 20 mg tablet 20 mg PO DAILY Qty: 30 3RF metoprolol tartrate 50 mg tablet 50 mg PO Q12H Qty: 60 5RF levothyroxine 88 mcg tablet 88 mcg PO DAILY Qty: 90 3RF meloxicam 15 mg tablet 15 mg PO DAILY Qty: 30 2RF Follow-up/Referrals: Fili,VERONICA Saucedo [Primary Care Provider] - Time of Disposition: 02:47
[2024-09-11 22:33] LABS: Influenza A QL RT-PCR Negative (Negative); Influenza B QL RT-PCR Negative (Negative); RSV RNA, RT-PCR Negative (Negative); SARS-CoV-2 RNA PCR Negative (Negative)
[2024-09-11 23:19] LABS: Alanine Aminotransferase 28 U/L (6-35); Albumin Level 4.3 g/dL (3.5-5.1); Alkaline Phosphatase 74 U/L (38-126); Anion Gap 10 mmol/L (4-12); Aspartate Amino Transferase 41 U/L (14-36); Bilirubin,Total 0.9 mg/dL (0.2-1.3); Blood Urea Nitrogen 24 mg/dL (7-17); Calcium 8.9 mg/dL (8.4-10.2); Carbon Dioxide 18 mmol/L (22-30); Chloride 104 mmol/L (98-107); Estimated CRCL calculation 86 ml/min; Estimated Glomerular Filt Rate > 60; Glucose 141 mg/dL (65-110); Lactic Acid Reflex 1.7 mmol/L (0.7-2.0); Lipase 42 U/L (23-300); Magnesium 1.4 mg/dL (1.6-2.3); Potassium 3.8 mmol/L (3.4-5.0); Sodium 132 mmol/L (137-145)
[2024-09-11 23:30] LABS: NT Pro B Type Natriuretic Pept 87 pg/mL (19.9-100); Troponin I < 0.012 ng/mL (0.000-0.034)
[2024-09-11] MEDS: diphenhydrAMINE HCl INJ 50 MG/ML VIAL 25 MG IV PUSH (23:37)
[2024-09-11] MEDS: PROCHLORPERAZINE EDISYLATE 10 MG/2 ML VIAL IV PUSH (23:37)
[2024-09-11 23:48] LABS: Procalcitonin 0.4 ng/mL
[2024-09-12] MEDS: MAGNESIUM SULF 1 GM/D5W 100 ML 1 GM/100 ML BAG IVPB (00:53)
[2024-09-12 00:56] VITALS: BP 137/88; PULSE 111; RESP 25; O2SAT 93
[2024-09-12 01:01] VITALS: BP 139/84; PULSE 111; RESP 20; O2SAT 94
[2024-09-12] MEDS: ACETAMINOPHEN 500 MG TABLET 1000 MG PO (01:09)
[2024-09-12 01:43] LABS: Add Urine Microscopic? NO; Appearance Urine Clear (Clear); Bilirubin Urine Negative (Negative); Blood Urine Negative (Negative); Color Urine Yellow (Yellow); Glucose Urine UA Negative (Negative); Ketones Urine 1+ mg/dL (Negative); Leukocyte Esterase Ur Negative LEU/UL (Negative); Nitrate Urine Negative (Negative); Protein Urine Negative (Negative); Specific Grav Ur 1.041 (1.001-1.035); Urobilinogen Urine 0.2 mg/dL (<2.0)
[2024-09-12 01:54] LABS: Troponin I < 0.012 ng/mL (0.000-0.034)
[2024-09-12 02:01] VITALS: BP 134/79; PULSE 113; RESP 21; O2SAT 92
--- OUTSIDE RECORDS SUMMARY | 2024-09-18 09:28 | XMS_ITS | Continuity of Care Document ---
Author Organization [facility] Address [address] [place] [address] Care Team Providers Care Bowling Ball Patcher Name Role Phone DEE COUGHLIN Primary Care Provider Assessment Encounter Date Assessment Date Assessment LastModified by Organization Details LastModified Time 08/16/2024 08/16/2024 Sanket ORNELAS [email or web address] Not available 08/16/2024 14:48:17 Plan of Treatment Reminders Order Date Submit Date Provider Last Modified By Organization Details Last Modified Time Details Appointments ANY 30 2024 02:00P M DEE COUGHLIN PA-C Not available Not available Not available Lab drug screen, urine 2023 024 [facility], [address] [place] [address], [address], [place], [address], 08/18/2024 10:16:37 HbA1c (hemoglob in A1c), blood 2023 024 [email or web address] In-Office Order, Internal Use Only DO Not Attach Compendium DO Not Attach Compendium, Do Not Delete/merge, [id number] 08/16/2024 15:43:01 Referral None recorded. Procedures None recorded. Surgeries None recorded. Imaging None recorded. Medication Orders tramadol 50 mg tablet 2023 024 [id number] [facility], [address] [place], [address], 08/16/2024 15:06:31 Linzess 290 mcg capsule 2023 024 [facility], [address] [place], [place], [id number], 08/16/2024 15:34:13 Enteric Coated Aspirin 81 mg tablet,de layed release 2023 NISHA ALMITA [id number] In [facility], [address] [place] [address], [id number], 08/16/2024 15:05:52 lisinopri l 20 mg tablet 2023 [facility] [address] In [facility], [address] [place] [address], [address], 08/16/2024 15:05:43 metoprolo l tartrate 50 mg tablet 2023 [facility] [address] In [facility], [address] [place] [address], [address], 08/16/2024 15:05:46 isosorbid e mononitra te ER 30 mg tablet,ex tended release 24 hr 2023 [facility] [address] In [facility], [address] [place] [address], [address], 08/16/2024 15:05:53 atorvasta tin 40 mg tablet 2023 [facility] [address] In [facility], [address] [place] [address], [address], 08/16/2024 15:05:51 metformin 1,000 mg tablet 2023 [facility] [address], [address], 08/16/2024 15:05:51 OneTouch Ultra Test strips 2023 [facility] [address], [address], 08/16/2024 15:05:49 Ozempic 1 mg/dose (4 mg/3 mL) subcutane ous pen injector 2023 [facility] [address] In [facility], [address] [place], [address], 08/16/2024 15:05:40 oxybutyni n chloride ER 5 mg tablet,ex tended release 24 hr 2023 [facility], [address], [place], [id number], 08/16/2024 15:34:12 pantopraz ole 40 mg tablet,de layed release 2023 [facility] [address] In [facility], [address] [place], [address], 08/16/2024 15:05:41 citalopra m 40 mg tablet 2023 [facility] [address] In [facility], [address] [place] [address], [address], 08/16/2024 15:05:44 levothyro xine 88 mcg tablet 2023 [facility] [address] In [facility], [address] [place] [address], [id number], 08/16/2024 15:05:46 Patient TargetsNo targets recorded. Patient Instructions Encounter Date Encounter Id Patient Instructions Last Modified By Organization Details Last Modified Time 08/16/2024 [id number] learning about type 2 diabetes [email or web address] Not available 08/16/2024 15:05:13 type 2 diabetes: care instructions [email or web address] Not available 08/16/2024 15:05:13 A healthy lifestyle: care instructions Not available 08/16/2024 15:05:14 learning about mood disorders [email or web address] Not available 08/16/2024 15:05:13 Reason for Referral None Reported. Results Created Date Observation Date Name Description Value Unit Range Abnormal Flag Note LastModifiedBy Organization Detail LastModifiedTime 08/16/20 24 08/16/2024 HbA1c (hemo globi n A1c), blood HbA1c 6.6 Not Available In-Office Order Internal Use Only DO Not Attach Compendium DO Not Attach Compendium, Do Not Delete/merge, 02201 08/16/2024 15:42:53 09/12/19 25 09/12/2024 imagi ng/di agnos tic resul t No observ ation record ed. [facility] [address], [place], [address], 09/12/2024 12:53:12 Result Notes None recorded. Problems Name Problem SNOMED Code Status Onset Date Resolution Date Notes Provider Name and Address Organization Details Recorded Time Hyperten sive disorder 02633454 Active 2019 DEE COUGHLIN PA-C Attn: Accounting ,[address] [facility], [place], [address] , [place] [facility] 3 16:56:36 Serum choleste rol very high 820097526 Completed 201901/02/2020 VERONICA REMY Attn: Accounting ,[address] [facility], [place], [address] , [place] [facility] 0 15:30:16 Multiple sclerosi s 11216267 Active 2019 Not Available [facility] 3 17:39:11 Gastropa resis syndrome 320052851 Active 2019 Not Available [facility] 3 17:39:11 Irritabl e bowel syndrome 18543512 Active 2019 DEE COUGHLIN PA-C Attn: Accounting ,[address] [facility], [place], [address] , [place] [facility] 4 15:19:59 Myocardi al infarcti on 06819644 Completed 201009/15/2019 Samantha Raymond MA null, [place] [facility] 0 14:54:23 Type 2 diabetes mellitus 20219738 Active 2019 DEE COUGHLIN PA-C Attn: Accounting ,[address] [facility], [place], [address] , [place] [facility] 3 16:56:21 Hypothyr oidism 19505584 Active 2019 DEE COUGHLIN PA-C Attn: Accounting ,[address] [facility], [place], [address] , [facility] - [facility] 4 15:19:52 Systemic lupus erythema tosus 96868293 Completed 201902/29/2020 VERONICA REMY Attn: Accounting ,[address] [facility], [place], [address] , [facility] - [facility] 0 15:13:55 History of myocardi al infarcti on 408384483 Active 2019 H/o of MS in 2000 s/p PCI Not Available [facility] 3 17:39:11 Angina pectoris 165158949 Active 2019 Went to [facility] on 12/18 for chest pain, CP improved with nitro. EKG normal. Admitted to cardiolo gy. Cardiac cath performe d on 12/20/19, showed 60-70% stenosis of prox. circumfl ex and 50-70% mid RCA stenosis . NL EF of 70%. Mildly elevated LVED filling pressure . Previous stent in LAD with 10% stent restenos is. Not Available [facility] 3 17:39:11 Coronary arterios clerosis 30768865 Active 2019 Hospital ized at [facility] on 12/19/19 for chest pain. Cardiac cath showed CAD, isosorbi de mononitr ate added to regimen. Now followin g with [facility] Cardiolo gy Not Available [facility] 3 17:39:11 Hyperlip idemia 95906094 Active 2019 DEE COUGHLIN PA-C Attn: Accounting ,[address] [facility], [place], [address] , [facility] - [facility] 3 16:56:23 Obstruct jeannette sleep apnea syndrome 64697942 Active 2019 Cardiolo gy rec. repeat sleep study and tx for LISSETTE Not Available [facility] 3 17:39:11 Degenera tion of lumbosac ral interver tebral disc 65054638 Active 2019 Xray showed multilev el lumar spine degenera tive disc disease, severe from L3-S1 Not Available [facility] 3 17:39:11 Osteoart hritis of hip 930760746 Active 2019 Xray showed mild bilatera l hip OA Not Available [facility] 3 17:39:11 Osteoart hritis of joint of bilatera l hands 94917347281 9109 Active 2019 Xrays showed bilatera l thumb OA DEE COUGHLIN PA-C Attn: Accounting ,[address] [facility], [place], [address] , [facility] - [facility] 4 15:19:55 Depressi ve disorder 78792206 Active 2023 DEE COUGHLIN PA-C Attn: Accounting ,[address] [facility], [place], [place], [address] [place] [address] , [facility] - [facility] 4 15:55:55 Degenera tion of interver tebral disc 27071290 Active 2023 DEE COUGHLIN PA-C Attn: Accounting ,[address] [facility], [place], [place], [address] [place] [address] , [facility] - [facility] 4 18:02:02 Notes:Some problems listed i n Documents: #[id number], #[id number] could not be added to this patient's chart. Please review these documents and add these problems to the patient's chart manually as needed. Problem Notes None recorded. Procedures Surgical History Date Name Laterality Status Provider Name and Address Organization Details Recorded Time 01/03/20 23 Date of Last Mammogram completed Amanda Huerta [place] [facility] 03/06/2023 14:56:30 06/07/20 20 colonoscopy completed VERONICA REMY Attn: Accounting,[address] [facility], [place], [address], [place] [facility] 11/20/2020 10:13:50 09/07/19 17 arthroplasty of knee completed Samantha Raymond [place] [facility] 09/15/2019 14:55:13 09/07/19 15 Carpal tunnel surgery completed Samantha Raymond MA [facility] 09/15/2019 14:55:33 09/07/19 14 Date of Last Pap Smear completed Dariana Tan MA [facility] 04/28/2023 10:23:21 09/07/19 10 laparoscopic adjustable gastric banding completed Samantha Raymond MA [facility] 09/15/2019 14:55:57 04/07/20 06 endometrial ablation completed VERONICA REMY Attn: Accounting,[address] [facility], [place], [address], [facility] - [facility] 04/28/2023 16:55:51 09/07/18 98 ligation of fallopian tube completed Samantha Raymond MA [facility] 09/15/2019 14:56:14 09/07/18 72 Removal of tonsils completed Samantha Raymond MA [facility] 09/15/2019 14:54:53 Imaging Results None recorded. Procedure Notes None recorded. Medical Equipment None Reported. Allergies Allergen ID Allergen Name Allergen Category Reaction Reaction Severity Criticality Documentation Date Start Date Code Code System Note Provider Name and Address Organization Details Recorded Time 482110 Substance with sulfonami de structure and antibacte rial mechanism of action (substanc e) medicatio n facial swelling severe Not available 09/15/2019 17290 8003 SNOMED ORLY Dixon [facility] 0 14:40:28 598195 latex environme nt,medica tion itching severe Not available 09/15/2019 77586 91 RxNorm ORLY Dixon [facility] 0 14:40:47 665846 adhesive tape environme nt,medica tion rash Not available Not available 09/15/2019 ORLY Dixon [facility] 0 14:41:07 Medications Name Sig Start Date Stop Date Status Note LastModified by Organization Details LastModified Time hydrochloro thiazide 25 mg tabs 02/08 completed Not Available Not Available Not Available aspirin low dose 81 mg tbec 02/28 completed Not Available Not Available Not Available levothyroxi ne sodium 88 mcg tabs 02/28 completed Not Available Not Available Not Available linzess 290 mcg caps 02/08 completed Not Available Not Available Not Available pantoprazol e sodium 40 mg tbec 02/28 completed Not Available Not Available Not Available lisinopril 20 mg tabs 02/28 completed Not Available Not Available Not Available hydroxyzine hydrochlori de 25 mg tabs 02/08 completed Not Available Not Available Not Available metoprolol tartrate 50 mg tabs 02/28 completed Not Available Not Available Not Available tramadol hcl 50 mg tabs 02/08 completed Not Available Not Available Not Available nitroglycer in 0.4 mg subl 02/08 completed Not Available Not Available Not Available victoza 18 mg/3ml sopn 11/20 completed Not Available Not Available Not Available meloxicam 15 mg tabs 02/08 completed Not Available Not Available Not Available atorvastati n calcium 40 mg tabs 02/28 completed Not Available Not Available Not Available metformin hydrochlori de 500 mg tabs 02/28 completed Not Available Not Available Not Available lisinopril 40 mg tabs 02/08 completed Not Available Not Available Not Available ondansetron hydrochlori de 8 mg tabs 02/08 completed Not Available Not Available Not Available amitriptyli ne hydrochlori de 75 mg tabs 02/28 completed Not Available Not Available Not Available isosorbide mononitrate er 30 mg tb24 02/28 completed Not Available Not Available Not Available atorvastati n 40 mg tablet TAKE 1 TABLET BY MOUTH EVERY DAY 2023 active Not Available Not Available Not Avai lable metformin 500 mg tablet TAKE 1 TABLET BY MOUTH TWICE A DAY WITH MEALS 08/20 completed Not Available Not Available Not Available BD Alcohol Swabs TEST TWICE A DAY 12/25 completed Not Available Not Available Not Available ascorbic acid (vitamin C) 1,000 mg tablet TAKE 1 TABLET BY MOUTH EVERY DAY DIRECTED FOR 7 DAYS 11/20 completed Not Available Not Available Not Available acetaminoph en 325 mg tablet TAKE 2 TABLETS BY MOUTH EVERY 6 TO 8 HOURS NEEDED FOR 10 DAYS 11/23 completed Not Available Not Available Not Available prednisone 10 mg tablet 09/15 completed Not Available Not Available Not Available citalopram 40 mg tablet Take 1 tablet every day by oral route for 90 days. 2023 active Not Available Not Available Not Avai lable cetirizine 10 mg tablet Take 1 tablet every day by oral route as directed for 7 days. 11/20 completed Not Available Not Available Not Available Iron (ferrous sulfate) 325 mg (65 mg iron) tablet Take 1 tablet every day by oral route. 12/12 completed Not Available Not Available Not Available aspirin 325 mg tablet Take 1 tablet every day by oral route. 12/26 completed Not Available Not Available Not Available amitriptyli ne 75 mg tablet TAKE 1 TABLET BY MOUTH EVERYDAY AT BEDTIME 02/20 completed Not Available Not Available Not Available ofloxacin 0.3 % eye drops 09/15 completed Not Available Not Available Not Available fluconazole 150 mg tablet TAKE 1 TABLET BY MOUTH EVERY DAY DIRECTED FOR 1 DAY 11/02 completed Not Available Not Available Not Available ondansetron HCl 8 mg tablet TAKE 1 TABLET BY MOUTH EVERY 8 HOURS NEEDED FOR NAUSEA AND VOMITING active Not Available Not Available No t Available meloxicam 15 mg tablet TAKE 1 TABLET BY MOUTH EVERY DAY NEEDED WITH FOOD 03/26 completed Not Available Not Available Not Available lisinopril 20 mg tablet TAKE 1 TABLET BY MOUTH EVERY DAY 2023 active Not Available Not Available Not Avai lable Medrol (Grey) 4 mg tablets in a dose pack Take 1 dose pk by oral route. 12/12 completed Not Available Not Available Not Available isosorbide mononitrate ER 30 mg tablet,exte nded release 24 hr TAKE 1 TABLET BY MOUTH EVERY DAY 2023 active Not Available Not Available Not Avai lable aspirin 81 mg tablet,joseph yed release Take 1 tablet once daily by mouth as directed active Not Available Not Available No t Available tramadol 50 mg tablet Take 1 tablet 3 times a day by oral route for 30 days. active Not Available Not Available No t Available levothyroxi ne 88 mcg tablet TAKE 1 TABLET BY MOUTH EVERY DAY DIRECTED 2023 active Not Available Not Available Not Avai lable alprazolam 0.5 mg tablet 12/12 completed Not Available Not Available Not Available amoxicillin 875 mg tablet TAKE 1 TABLET BY MOUTH TWICE A DAY 08/20 completed Not Available Not Available Not Available OneTouch Ultra Test strips USE TO CHECK BLOOD SUGAR TWICE DAILY active Not Available Not Available No t Available benzonatate 100 mg capsule TAKE 1 CAPSULE BY MOUTH THREE TIMES A DAY NEEDED FOR 10 DAYS 11/23 completed Not Available Not Available Not Available cephalexin 500 mg capsule 09/15 completed Not Available Not Available Not Available pantoprazol e 40 mg tablet,joseph yed release Take 1 tablet every day by oral route for 30 days. 2023 active Not Available Not Available Not Avai lable metformin 1,000 mg tablet TAKE 1 TABLET BY MOUTH TWICE A DAY DIRECTED x 90 DAYS 2023 active Not Available Not Available Not Avai lable neomycin-po lymyxin-dex ameth 3.5 mg/mL-10,00 0 unit/mL-0.1 % eye drops INSTILL 1 DROP INTO BOTH EYES THREE TIMES A DAY SHAKE WELL 03/26 completed Not Available Not Available Not Available metoprolol tartrate 50 mg tablet TAKE 1 TABLET BY MOUTH TWICE A DAY DIRECTED 2023 active Not Available Not Available Not Avai lable nitroglycer in 0.[address] 1 TABLET UNDER THE TONGUE EVERY 5 MINUTES NEEDED FOR CHEST PAIN. active Not Available Not Available No t Available oxybutynin chloride ER 5 mg tablet,exte nded release 24 hr TAKE 2 TABLETS BY MOUTH ONCE A DAY AT DINNER x 90 DAYS 2023 active Not Available Not Available Not Avai lable hydroxyzine HCl 25 mg tablet TAKE 1 TABLET BY MOUTH THREE TIMES DAILY NEEDED 08/20 completed Not Available Not Available Not Available hydrochloro thiazide 25 mg tablet TAKE 1 TABLET BY MOUTH EVERY DAY DIRECTED active Not Available Not Available No t Available zolpidem 5 mg tablet 12/12 completed Not Available Not Available Not Available furosemide 20 mg tablet TAKE 1 TABLET EVERY OTHER DAY BY MOUTH DIRECTED 2024 active Not Available Not Available Not Avai lable timolol maleate 0.5 % eye drops 09/15 completed Not Available Not Available Not Available celecoxib 100 mg capsule TAKE ONE CAPSULE BY MOUTH TWICE DAILY EVERY MORNING & EVENING WITH FOOD NEEDED FOR PAIN 2023 active Not Available Not Available Not Avai lable lisinopril 40 mg tablet Take 1 tablet every day by oral route for 30 days. 12/26 completed Not Available Not Available Not Available amitriptyli ne 100 mg tablet TAKE 1 TABLET BY MOUTH EVERYDAY AT BEDTIME active Not Available Not Available No t Available loratadine 10 mg tablet Take 1 tablet every day by oral route as directed for 7 days. 12/26 completed Not Available Not Available Not Available amoxicillin 875 mg-potassiu m clavulanate 125 mg tablet TAKE 1 TABLET EVERY 12 HOURS BY MOUTH DIRECTED FOR 7 DAYS. 06/06 completed Not Available Not Available Not Available Ventolin HFA 90 mcg/actuati on aerosol inhaler INHALE 2 PUFFS BY MOUTH EVERY 4 HOURS NEEDED FOR 10 DAYS 12/26 completed Not Available Not Available Not Available neomycin-po lymyxin-hyd rocort 3.5 mg-10,000 unit/mL-1 % ear drops,susp INSTILL 4 DROPS INTO AFFECTED EAR(S) BY OTIC ROUTE 3 TIMES PER DAY X 10 DAYS 03/26 completed Not Available Not Available Not Available Ciprodex 0.3 %-0.1 % ear drops,suspe nsion INSTILL 4 DROPS INTO THE AFFECTED EAR(S) EVERY 12 HOURS FOR 7 DAYS 08/20 completed Not Available Not Available Not Available nitrofurant oin monohydrate /macrocryst als 100 mg capsule TAKE 1 CAPSULE BY MOUTH EVERY 12 HOURS DIRECTED FOR 5 DAYS 03/14 completed Not Available Not Available Not Available tramadol ER 100 mg tablet,exte nded release 24 hr TAKE 1 TABLET BY MOUTH THREE TIMES A DAY NEEDED FOR PAIN FOR 30 active Not Available Not Available No t Available hydrochloro thiazide 12.5 mg tablet Take 1 tablet by oral route for 30 days. 10/11 completed Not Available Not Available Not Available diclofenac 1 % topical gel APPLY 2 GRAMS TO THE AFFECTED AREA(S) BY TOPICAL ROUTE 4 TIMES PER DAY 11/20 completed Not Available Not Available Not Available melatonin 5 mg tablet TAKE 2 TABLETS BY MOUTH AT BEDTIME active Not Available Not Available No t Available Durezol 0.05 % eye drops 09/15 completed Not Available Not Available Not Available vitamin E (dl, acetate) 180 mg (400 unit) capsule Take 2 capsules twice a day by oral route. 09/11 completed Not Available Not Available Not Available cholecalcif dilip (vitamin D3) 75 mcg (3,000 unit) tablet Take 5000 units every day by oral route. 08/06 completed Not Available Not Available Not Available Chantix Continuing Month Box 1 mg tablet 09/15 completed Not Available Not Available Not Available Chantix Starting Month Box 0.5 mg (11)-1 mg (42) tablets in dose pack 09/15 completed Not Available Not Available Not Available Linzess 290 mcg capsule TAKE ONE CAP BY MOUTH ONCE DAILY ON AN EMPTY STOMACH AT LEAST 30 MIN PRIOR TO FIRST MEAL OF THE DAY 2023 active Not Available Not Available Not Avai lable Invokana 100 mg tablet TAKE ONE TABLET BY MOUTH EVERY DAY 05/17 completed Not Available Not Available Not Available Victoza 3-Grey 0.6 mg/0.1 mL (18 mg/3 mL) subcutaneou s pen injector Inject by subcutane ous route for 90 days. active Not Available Not Available No t Available Farxiga 10 mg tablet TAKE ONE TABLET BY MOUTH EVERY DAY FOR DIABETES 03/24 completed Not Available Not Available Not Available Jardiance 10 mg tablet active Not Available Not Available Not Available Jardiance 25 mg tablet TAKE ONE TABLET BY MOUTH EVERY MORNING FOR diabetes 06/18 completed Not Available Not Available Not Available Trulicity 1.5 mg/0.5 mL subcutaneou s pen injector INJECT 1.5 MG SUBCUTANE OUSLY WEEKLY 05/17 completed Not Available Not Available Not Available Trulicity 0.75 mg/0.5 mL subcutaneou s pen injector INJECT 0.75 MG EVERY WEEK BY SUBCUTANE OUS ROUTE 01/04 completed Not Available Not Available Not Available TRUEplus Pen Needle 31 gauge x 3/16 USE FOR INSULIN INJECTION 03/26 completed Not Available Not Available Not Available Ozempic 0.25 mg or 0.5 mg (2 mg/1.5 mL) subcutaneou s pen injector Inject 0.5 mg every week by subcutane ous route for 30 days. 08/16 completed Not Available Not Available Not Available Clenpiq 10 mg-3.5 gram-12 gram/160 mL oral solution 04/07 /2020 completed Not Available Not Available Not Available OneTouch Ultra2 Meter USE TO TEST TWICE DAILY 08/06 completed Not Available Not Available Not Available OneTouch Delica Plus Lancet 33 gauge USE TO TEST TWICE DAILY 12/25 completed Not Available Not Available Not Available Flucelvax Quad 60 mcg (15 mcg x 4)/0.5 mL intramuscul ar susp 09/15 completed Not Available Not Available Not Available Rybelsus 14 mg tablet TAKE 1 TABLET BY MOUTH EVERY DAY BEFORE MEALS. STOP 7MG DOSE 06/24 completed Not Available Not Available Not Available Rybelsus 7 mg tablet TAKE 1 TABLET BY MOUTH EVERY DAY IN THE MORNING 07/24 completed Not Available Not Available Not Available Rybelsus 3 mg tablet TAKE 1 TABLET BY MOUTH EVERY DAY IN MORNING 30 MINUTES BEFORE FIRST MEAL OR OTHER MEDS W/ 4OZ WATER 03/06 completed Not Available Not Available Not Available tramadol 100 mg tablet Take 1 tablet 3 times a day by oral route as needed for 30 days, for pain. 2023 active Not Available Not Available Not Avai lable Ozempic 1 mg/dose (4 mg/3 mL) subcutaneou s pen injector Inject 1 mg every week by subcutane ous route for 30 days. active Not Available Not Available No t Available Vitals Date Recorded Body height Body mass index (BMI) Body weight Oxygen saturation Oxygen saturation in Arterial blood by Pulse oximetry Heart rate Systolic blood pressure Diastolic blood pressure Provider Name and Address Organization Details Last Updated DateTime 4 160.02 cm 42.8 kg/m2 185236. 86 g 96 % 96 % 87 /min 116 mm[Hg] 74 mm[Hg] Evangelina Espinoza MA [place] [facility] 14:28:22 Social History Question Answer Notes LastModified by Organizat ion Details LastModified Time Tobacco Smoking Status Former Smoker quit in 2019 ORLY López, [place] - [facility] 04/28/2023 10:24:35 Do You Have An Advance Directive? No Information not available 09/15/2019 What Is Your Level Of Alcohol Consumption? None Information not available 09/15/2019 What Is Your Level Of Caffeine Consumption? Moderate Information not available 09/15/2019 How Much Tobacco Do You Chew? None Information not available 09/15/2019 In The 14 Days Before Symptom Onset, Have You Had Close Contact With A Laboratory-confir med COVID-19 While That Case Was Ill? No Information not available 10/11/2019 In The 14 Days Before Symptom Onset, Have You Had Close Contact With A Person Who Is Under Investigation For COVID-19 While That Person Was Ill? No Information not available 10/11/2019 What Type Of Diet Are You Following? REGULAR Information not available 09/15/2019 Which Illicit Or Recreational Drugs Have You Used? No Information not available 09/15/2019 Do You Or Have You Ever Used E-cigarettes Or Vape? Never Used Electronic Cigarettes Information not available 09/15/2019 Are There Any Guns Present In Your Home? No Information not available 09/15/2019 Hard Of Hearing Or Deaf In One Or Both Ears? No Information not available 09/15/2019 Legally Blind In One Or Both Eyes? No Information no t available 09/15/2019 What Was The Date Of Your Most Recent Tobacco Screening? 08/16/2024 Information not available 08/16/2024 Performs Monthly Self-breast Exam? No Information no t available 09/15/2019 Seat Belts Used Routinely Yes Information not available 09/15/2019 Smoke Alarm In Home Yes Information not available 09/15/2019 Do You Or Have You Ever Used Smokeless Tobacco? Never Used Smokeless Tobacco Information not available 09/15/2019 How Much Tobacco Do You Smoke? No Information not available 09/15/2019 General Stress Level High Information not available 09/15/2019 Do You Use Any Illicit Or Recreational Drugs? No Information not available 03/26/2022 Do You Use Sunscreen Routinely? Yes Information not available 09/15/2019 Has Tobacco Cessation Counseling Been Provided? Yes Information not available 08/16/2024 On What Date Was Tobacco Cessation Counseling Provided? 08/16/2024 Information not available 08/16/2024 Do You Or Have You Ever Used Any Other Forms Of Tobacco Or Nicotine? No Information not available 08/16/2024 Sex: Female Functional Status None recorded. Mental Status None recorded. Family History Relationship Description Onset Age of this Age Resolved Age Notes LastModified by Organization Details LastModified Time Sister Diabetes mellitus [email or web address] Not available 09/15 14:50:20 Daughter Hypertensive disorder [email or web address] Not available 09/15 14:50:40 Medical History Condition Response Coronary Artery Disease N Other N High Blood Pressure Y Atrial Fibrillation N Kidney or Bladder Problems N Thyroid Problems Y GI Problems N Depression N COPD N Blood Clots N Skin Problems N Anemia N Heart Attack (MS) Y Anxiety Disorder Y Diabetes N Muscle, Joint, or Bone Problems Y Seizures/Epilepsy N Acid Reflux (GERD) N Cancer Y Stroke N Asthma N Allergies N High Cholesterol Y Hepatitis N Liver Disease N Headaches N Heart Failure N Osteoporosis N Gynecological History Statement/Question Response Date of Last Mammogram 01/02/2023 Date of LMP 04/07/2006 Menses Monthly N Date of Last Pap Smear 09/07/2013 Current Control Method None LMP Unknown Obstetrics History GPAL:G 0 P 0 0 0 0 Immunizations Vaccine Type Date Status Note Provider Nam e and Address Organization Details Recorded Time Pneumococcal conjugate PCV 13 6 completed VERONICA REMY Attn: [employer],[address] [place], [address], [place] [facility] 05/22/2020 16:33:08 Influenza, split virus, quadrivalent, preservative 1 completed Amanda Huerta [place], [place] [facility] 08/15/2024 12:56:56 COVID-19, mRNA, LNP-S, PF, 30 mcg/0.3 mL dose 1 completed Zainab Lindsay [place], [place] [facility] 05/23/2021 14:43:17 COVID-19, mRNA, LNP-S, PF, 30 mcg/0.3 mL dose 1 [place] Zainab [place] [facility] 05/23/2021 14:43:39 COVID-19, mRNA, LNP-S, PF, 30 mcg/0.3 mL dose 1 [place] Zainab [place] [facility] 08/19/2021 16:30:38 zoster recombinant 2 completed Zainab [place] [facility] 02/12/2022 13:27:58 COVID-19, mRNA, LNP-S, PF, 30 mcg/0.3 mL dose 2 completed Zainab [place] [facility] 02/12/2022 13:28:18 Hep B, unspecified formulation 2 completed Zainab [place] [facility] 05/26/2022 10:58:58 Influenza, split virus, quadrivalent, preservative 2 completed Zainab [place] [facility] 05/26/2022 10:59:15 COVID-19, mRNA, LNP-S, PF, 30 mcg/0.3 mL dose 2 completed ORLY [place], [place] [facility] 05/26/2022 10:59:45 SARS-COV-2 (COVID-19) vaccine, UNSPECIFIED 3 completed Dariana Tan [place], [place] [facility] 06/01/2023 08:39:31 COVID-19, mRNA, LNP-S, PF, 30 mcg/0.3 mL dose 4 completed Oliva Dunn RN [place], [place] [facility] 05/13/2024 11:25:00 Influenza, split virus, quadrivalent, PF 1 completed Amanda Huerta [place] [facility] 08/15/2024 12:56:56 Influenza, split virus, quadrivalent, preservative 0 completed Zainab [place] [facility] 05/22/2020 15:31:17 pneumococcal polysaccharide PPV23 0 completed [place] [facility] 05/22/2020 15:31:54 Tdap 0 completed [place] [facility] 05/22/2020 15:32:25 Past Encounters Encounter ID Performer Location Encounter Start Date Encounter Closed Date Diagnosis/Indication Diagnosis SNOMED-CT Code Diagnosis ICD10 Code Diagnosis Note [id number] YOLETTE RIOS (Adult Med) [address] [place] [address] 07/19/2024 15:20:02 07/22/2024 11:09:05 Morbid obesity 645504188 E66.01 BMI 44 Pain of le ft hip joint 6891977374 39267 M25.552 Physical therapy referral given todayConti nue with pain medication as needed [id number] YOLETTE RIOS (Adult Med) [address] [place] [address] 08/16/2024 14:17:34 08/17/2024 11:54:08 Type 2 diabetes mellitus 67203409 E11.9 Last A1C: 6.6 08/16/24, 7.1 (05/14/24) 7.2 (11/24/23) 6.6 (08/25/23) 6.3 (03/06/2023 ), 6.4 (09/25/2022 ), 6.4 (03/26/2022 ), 6.1 (12/26/2021 ), 6.1 (2021) , 8.2 (05/23/2021 ), 7.8 (02/20/21) 7.4( 021) Current Therapy: Metformin 1000 mg BID, and Ozempic 0.25mg Statin: Atorvastat in 40 mg QD ELIZABETH/ARB: Lisinopril 20 mg QD Foot Exam: Normal monofilame nt test (08/16/24) Eye Exam: Appt scheduled in either October or December, pt unsure. Pneumovax 23: PVC 13 02/2016 (prior PCP), PPV23 administer ed 05/22/2020 Patient was counseled on low carbohydra te diet to better manage diabetes. Patient has been drinking a lot of water. - keep up with lifestyle changes and weight loss - Continue to monitor and log fasting BS and after dinner in the evening - Continue with healthy eating and exercise -C/W Metformin 1000 mg BID -C/W Ozempic 1mg - Follow-up in 6 months Hypertensive disorder 38 [id number] I10 BP today: 116/74 Uncontroll ed Hypertensi on potential risks, heart attack, , stroke, kidney failure etc. Hypertensi on is the silent Killer Take your Hypertensi on medication daily keep appointmen ts stop concentrat ed sugars--fo llow 1500 meal plan exercise 50-60 minutes daily on most days see eye doctor once a year see dentist every 6 months BP Goal: {{Less than 140/90* Le ss than 150/90}}BP Controlled : {{yes* no} }Healthy Weight: {{4'10= 91-118 lbs 4'11= 94-123 lbs 5'= 97-127 lbs 5'1= 100-131 lbs 5'2= 104-135 5' 3= 107-140 lbs* 5'4= 110-144 lbs 5'5= 115-149 lbs 5'6= 118-154 lbs 5'7= 121-158 lbs 5'8= 125-163 lbs 5'9= 128-168 lbs 5'10= 132-173 lbs 5'11= 136-178 lbs 6'= 140-183 lbs 6'1= 144-188 lbs 6'2= 148-193 lbs 6'3= 152-199 lbs 6'4= 156-204 lbs}}Discu ssed: Low sodium balanced diet, moderate exercise at least 3-4 times per week for an average of 40 minutesNex t Visit: {{1 2 3 4 5 6* 7 8 9 10 11 12} }{{week(s) month(s)* }} Coronary atherosclerosis 869847933 I25.84 C/W ASA 81mg Osteoarthr itis of joint of bilateral hands 9468766635 25131 M19.041 M19.042 Tramadol 50mg TIDControl led substance agreement signed today Gastroesop hageal reflux disease without esophagitis 169982872 K21.9 C/W pantoprazo le 40mg QD Irritable bowel syndrome 59845044 K58.9 C/W Linzess 290mcg Overactive urinary bladder 900085633 N32.81 C/W Oxybutynin Hypothyroidism 93896471 E03.9 C/W Levothyrox ine 88mcg Depressive disorder 3548 9007 F32.A C/W citalopram 40mg tablet Morbid obesity 997088983 E66.01 BMI 42.8 Depression screening 171 531108 Z13.31 PHQ9- {{Negative Positive Mild* Mode rate Sever e}} (5 out of 27) Mental [facility] screening 395782636 Z13.39 GAD7- {{Negative * Positive Mild Mode rate Sever e}} (4 out of 21) Health Concerns Section Related Observation LastModified by Organization Detai ls LastModified Time None Recorded Concern Status LastModified by Organization Details LastModified Time None Recorded Payers Encounter Date Sequence Insurance Name Policy Number Policy Weston Covered Member ID Weston Member ID Guarantor Name 08/16/2024 1 [facility] [id number] Lucretia Rodriguez [id number] Lucretia Rodriguez Notes Date Note Type Note Provider Name and Address Organization Details Recorded Time 4 text/html Diabetes F/UReported bypatient.Review finger sticks:fastin-156 Labs:last A1C result: 6.6 Context:taking aspirin daily; no side effects from medications;not seeing eye doctor yearly; Scheduled either oct or december for eye doctor Associated Symptoms:no weight gain; no dizziness; no sweats; no headaches; no confusion; no increased thirst; no increased appetite; no increased urination; no blurred vision; no numbness of feet; no calluses on feet;weight loss (17 lbs); since May and starting OzempicHypertension F/UReported bypatient.Associated Symptoms:no dizziness; no lightheadedness; no chest pain; no shortness of breath; no palpitations; no edema; no calf pain with exertion Lifestyle:regular exercise; limiting/avoiding salt; PT exercise Medications:taking medications as directed; no side effects from medication A 58 y/o F is here for a DM and hip pain follow up. Has been seeing PT for hips, she says its helped and is experiencing less pain and has more mobility. Has been taking DM medication as prescribed no side effects Pt denies CP [place] DEE COUGHLIN PA-C Attn: Accounting,[address] [facility], [place], [address], [facility] 08/16/2024 15:43:09 OBGyn Episode No OBEpisode recorded.
--- OUTSIDE RECORDS SUMMARY | 2024-09-18 09:28 | XMS_ITS | Data Portability ---
Author Organization [facility] KYRAAndrey Address [address] [place] [address] Care Team Providers Care Dog Day Care Attendant Name Role Phone SALINAS PENN Primary Care Provider Assessment Encounter Date Assessment Date Assessment LastModified by Organization Details LastModified Time 08/16/2024 08/16/2024 Sanket ORNELAS [email or web address] Not available 08/16/2024 14:48:17 Plan of Treatment Reminders Order Date Submit Date Provider Last Modified By Organization Details Last Modified Time Details Appointments ANY 30 2024 02:00P M SALINAS PENN PA-C Not available Not available Not available Lab influen za virus A + B + SARS-Co V-2 (COVID1 9) Ag panel, rapid IA, upper respira tory specime n 2023 024 In-Office Order, Internal Use Only DO Not Attach Compendium DO Not Attach Compendium, Do Not Delete/merge, [id number] 11/02/2023 13:11:54 HbA1c (hemogl obin A1c), blood 2023 024 [email or web address] In-Office Order, Internal Use Only DO Not Attach Compendium DO Not Attach Compendium, Do Not Delete/merge, [id number] 11/24/2023 15:46:11 drug screen, urine 2023 024 [facility], [address], [address], [place], [address], 08/18/2024 10:16:37 HbA1c (hemogl obin A1c), blood 2023 024 [email or web address] In-Office Order, Internal Use Only DO Not Attach Compendium DO Not Attach Compendium, Do Not Delete/merge, [id number] 08/16/2024 15:43:[address] phys[address] l therapi st referra l 2023 024 [facility], [address], [place], [address], 08/08/2024 19:18:47 Procedures None recorde d. Surgeries None recorde d. Imaging US, upper arm 2023 024 [facility], [address], [place], [address], 05/30/2024 07:42:24 XR, hip, bilater al 2023 024 [facility], [address], [place], [address], 05/23/2024 17:58:25 XR, lumbar spine, 2 view 2023 024 [facility], [address], [place], [address], 05/18/2024 07:39:13 Medication Orders benzona velazquez 100 mg capsule 2023 024 [email or web address] [facility], [address] [place] [address], [address], 11/24/2023 14:58:33 Tylenol 325 mg tablet 2023 024 [email or web address] [facility], [address] [place], [address], 11/24/2023 14:58:26 Linzess 290 mcg capsule 2023 024 [facility], [address] [place], [place], [id number], 09/15/2024 18:27:04 citalop romel 40 mg tablet 2023 024 [facility], [address] [place] [address], [address], 11/24/2023 15:46:21 Enteric Coated Aspirin 81 mg tablet, delayed release 2023 024 [facility] [address], [address] [place] [address], [address], 11/24/2023 15:46:22 lisinop ril 20 mg tablet 2023 024 [facility] [facility], [address] [place] [address], [address], 11/24/2023 15:46:27 metopro lol tartrat e 50 mg tablet 2023 024 [facility] [address] In [facility], [address] [place] [address], [address], 11/24/2023 15:46:22 isosorb edward mononit rate ER 30 mg tablet, extende d release 24 hr 2023 024 [facility] [address] [facility], [address] [place] [address], [address], 11/24/2023 15:46:20 atorvas tatin 40 mg tablet 2023 024 [facility] [address], [address], 11/24/2023 15:46:25 metform in 1,000 mg tablet 2023 024 [facility] [address] In [facility], [address] [place] [address], [address], 11/24/2023 15:46:25 Victoza 2-Grey 0.6 mg/0.1 mL (18 mg/3 mL) subcuta neous pen injecto r 2023 024 [facility], [address] [place] [address], [id number], 12/09/2023 14:24:47 Invokan a 100 mg tablet 2023 024 [facility], [address] [place] [address], [id number], 05/17/2024 15:04:40 OneTouc h Ultra Test strips 2023 024 [facility] [address] In [facility], [address] [place] [address], [address], 11/24/2023 15:46:27 oxybuty kalani chlorid e ER 5 mg tablet, extende d release 24 hr 2023 024 [facility], [address] [place] [address], [id number], 09/14/2024 15:47:29 pantopr azole 40 mg tablet, delayed release 2023 024 [facility] [address] In [facility], [address] [place] [address], [address], 11/24/2023 15:46:27 levothy roxine 88 mcg tablet 2023 024 [facility] [address] In [facility], [address] [place] [address], [address], 11/24/2023 15:46:26 Enteric Coated Aspirin 81 mg tablet, delayed release 2023 024 [facility] [address] In [facility], [address] [place] [address], [address], 05/17/2024 15:21:28 atorvas tatin 40 mg tablet 2023 024 [facility] [address] In [facility], [address] [place] [address], [address], 05/17/2024 15:21:26 metform in 1,000 mg tablet 2023 [facility] [address] In [facility], [address] [place] [address], [address], 05/17/2024 15:21:35 OneTouc h Ultra Test strips 2023 [facility] [address] In [facility], [address] [place] [address], [address], 05/17/2024 15:21:24 Ozempic 0.25 mg or 0.5 mg (2 mg/1.5 mL) subcuta neous pen injecto r 2023 [email or web address] [facility] [address] In [facility], [address] [place] [address], [address], 08/16/2024 14:33:59 Ozempic 0.25 mg or 0.5 mg (2 mg/1.5 mL) subcuta neous pen injecto r 2023 024 [facility] [address] In [facility], [address] [place] [address], [address], 08/16/2024 14:34:04 Ozempic 1 mg/dose (4 mg/3 mL) subcuta neous pen injecto r 2023 024 [facility] [address] In [facility], [address] [place] [address], [address], 05/17/2024 15:21:36 oxybuty kalani chlorid e ER 5 mg tablet, extende d release 24 hr 2023 [facility], [facility] [place], [place], [id number], 05/17/2024 15:39:46 citalop romel 40 mg tablet 2023 024 [facility] ALMITA Dunlap[address], [address], 05/17/2024 15:21:31 tramado l 50 mg tablet 2023 024 [facility] ALMITA Dunlap[address], [address], 06/23/2024 16:04:48 Linzess 290 mcg capsule 2023 024 [facility], [address] [place] [address], [id number], 05/17/2024 15:39:46 lisinop ril 20 mg tablet 2023 024 [place] [facility] Quiroz In [address], [address], 05/17/2024 15:21:31 metopro lol tartrat e 50 mg tablet 2023 024 [facility] ALMITA Dunlap[address], [address], 05/17/2024 15:21:22 isosorb edward mononit rate ER 30 mg tablet, extende d release 24 hr 2023 024 [facility] ALMITA Quiroz In [address], [address], 05/17/2024 15:21:32 pantopr azole 40 mg tablet, delayed release 2023 024 [facility] ALMITA Dunlap[address], [address], 05/17/2024 15:21:28 levothy roxine 88 mcg tablet 2023 024 [facility] ALMITA Quiroz In [facility], [address] [place] [address], [address], 05/17/2024 15:21:35 tramado l 50 mg tablet 2023 024 [facility] ALMITA [address] In [facility], [address] [place] [address], [address], 08/16/2024 15:06:31 Linzess 290 mcg capsule 2023 [facility], [address] [place] [address], [id number], 08/16/2024 15:34:13 Enteric Coated Aspirin 81 mg tablet, delayed release 2023 024 [facility] [facility] [email or web address] In [facility], [address] [place] [address], [address], 08/16/2024 15:05:52 lisinop ril 20 mg tablet 2023 024 [facility] AL[facility] Dunlap69 In [facility], [address] [place] [address], [address], 08/16/2024 15:05:43 metopro lol tartrat e 50 mg tablet 2023 024 [facility] [address] In [facility], [address] [place] [address], [address], 08/16/2024 15:05:46 isosorb edward mononit rate ER 30 mg tablet, extende d release 24 hr 2023 024 [facility] [address] In [facility], [address] [place] [address], [address], 08/16/2024 15:05:53 atorvas tatin 40 mg tablet 2023 024 [facility] [address] In [facility], [address] [place] [address], [address], 08/16/2024 15:05:51 metform in 1,000 mg tablet 2023 [facility] [address] In [facility], [address] [place] [address], [address], 08/16/2024 15:05:51 OneTouc h Ultra Test strips 2023 [facility] [address], [address], 08/16/2024 15:05:49 Ozempic 1 mg/dose (4 mg/3 mL) subcuta neous pen injecto r 2023 [facility] [address], [address], 08/16/2024 15:05:40 oxybuty kalani chlorid e ER 5 mg tablet, extende d release 24 hr 2023 [facility], [address] [place] [address], [id number], 08/16/2024 15:34:12 pantopr azole 40 mg tablet, delayed release 2023 [facility] [address], [address], 08/16/2024 15:05:41 citalop romel 40 mg tablet 2023 [facility] [address], [address], 08/16/2024 15:05:44 levothy roxine 88 mcg tablet 2023 [facility] [address], [address], 08/16/2024 15:05:46 Patient TargetsNo targets recorded. Patient Instructions Encounter Date Encounter Id Patient Instructions Last Modified By Organization Details Last Modified Time 11/24/2023 [id number] learning about type 2 diabetes [email or web address] Not available 11/24/2023 15:46:04 type 2 diabetes: care instructions [email or web address] Not available 11/24/2023 15:46:04 body mass index: care instructions [email or web address] Not available 11/24/2023 15:46:04 learning about healthy weight [email or web address] Not available 11/24/2023 15:46:03 05/17/2024 [id number] learning about type 2 diabetes [email or web address] Not available 05/17/2024 15:21:08 type 2 diabetes: care instructions Not available 05/17/2024 15:21:08 A healthy lifestyle: care instructions [email or web address] Not available 05/17/2024 15:55:55 learning about mood disorders Not available 05/17/2024 15:21:07 07/19/2024 [id number] hip pain: care instructions [email or web address] Not available 07/19/2024 17:14:17 sacroiliac pain: exercises [email or web address] Not available 07/19/2024 17:14:17 low back pain: exercises [email or web address] Not available 07/19/2024 17:14:17 A healthy lifestyle: care instructions [email or web address] Not available 07/19/2024 16:17:49 08/16/2024 [id number] learning about type 2 diabetes [email or web address] Not available 08/16/2024 15:05:13 type 2 diabetes: care instructions [email or web address] Not available 08/16/2024 15:05:13 A healthy lifestyle: care instructions Not available 08/16/2024 15:05:14 learning about mood disorders Not available 08/16/2024 15:05:13 Reason for Referral Physical Therapist Referral for Pain of left hip joint Referring Physician: Salinas Penn, Family Medicine, Encounter Date: 07/19/2024 Results Created Date Observation Date Name Description Value Unit Range Abnormal Flag Note LastModifiedBy Organization Detail LastModifiedTime 11/02/19 24 11/02/2023 influ marge virus A + B + SARS- CoV-2 (COVI D19) Ag panel , rapid IA, upper respi rator y speci men Flu A positi ve Not Available In-Office Order Internal Use Only DO Not Attach Compendium DO Not Attach Compendium, Do Not Delete/merge, [id number] 11/02/2023 12:47:54 11/02/19 24 11/02/2023 influ marge virus A + B + SARS- CoV-2 (COVI D19) Ag panel , rapid IA, upper respi rator y speci men Flu B negati ve Not Available In-Office Order Internal Use Only DO Not Attach Compendium DO Not Attach Compendium, Do Not Delete/merge, [id number] 11/02/2023 12:47:54 11/02/19 24 11/02/2023 influ marge virus A + B + SARS- CoV-2 (COVI D19) Ag panel , rapid IA, upper respi rator y speci men Rapid SARS CoV 2 Ag, QL IA, respiratory specimen negati ve Not Available In-Office Order Internal Use Only DO Not Attach Compendium DO Not Attach Compendium, Do Not Delete/merge, [id number] 11/02/2023 12:47:54 11/24/19 24 11/24/2023 HbA1c (hemo globi n A1c), blood HbA1c 7.2 Not Available In-Office Order Internal Use Only DO Not Attach Compendium DO Not Attach Compendium, Do Not Delete/merge, [id number] 11/24/2023 15:15:48 11/28/19 24 11/30/2023 TSH+F REE T4 TSH 1.970 uIU/m L 0.450- 4.500 Not Available [facility] ([facility]) [address] [facility], [place], [address], 11/30/2023 11:11:11 11/28/19 24 11/30/2023 TSH+F REE T4 T4,free(dire ct) 1.01 NG/dL 0.82-1 .77 Not Available [facility] ([facility]) [address] [facility], [place], [address], 11/30/2023 11:11:11 12/05/19 24 12/06/2023 LIPID PANEL cholesterol, total 130 mg/dL 100-19 9 Not Available [facility] ([facility]) [address] [facility] [place], [address], 12/06/2023 08:10:07 12/05/19 24 12/06/2023 LIPID PANEL triglyceride s 153 mg/dL 0-149 above high normal Not Available [facility] ([facility]) [address] [facility] [place], [address], 12/06/2023 08:10:07 12/05/19 24 12/06/2023 LIPID PANEL HDL cholesterol 43 mg/dL >39 Not Available [facility] ([facility]) [address] [facility] [place], [address], 12/06/2023 08:10:07 12/05/19 24 12/06/2023 LIPID PANEL VLDL cholesterol facundo 26 mg/dL 5-40 Not Available [facility] ([facility]) [address] [place], [address], 12/06/2023 08:10:07 12/05/19 24 12/06/2023 LIPID PANEL LDL chol calc ([facility]) 61 mg/dL 0-99 Not Available [facility] ([facility]) [address] [place], [address], 12/06/2023 08:10:07 12/05/19 24 12/06/2023 COMP. METAB OLIC PANEL (14) glucose 126 mg/dL 70-99 above high normal Not Available [facility] ([facility]) [address] [place], [address], 12/06/2023 08:10:08 12/05/19 24 12/06/2023 COMP. METAB OLIC PANEL (14) BUN 17 mg/dL 6-24 Not Available [facility] ([facility]) [address] [place], [address], 12/06/2023 08:10:08 12/05/19 24 12/06/2023 COMP. METAB OLIC PANEL (14) creatinine 1.07 mg/dL 0.57-1 .00 above high normal Not Available [facility] ([facility]) [address] [facility] [place], [address], 12/06/2023 08:10:08 12/05/19 24 12/06/2023 COMP. METAB OLIC PANEL (14) eGFR 60 mL/mi n/1.7 3 >59 Not Available [facility] ([facility]) [address] [facility] [place], [address], 12/06/2023 08:10:08 12/05/19 24 12/06/2023 COMP. METAB OLIC PANEL (14) BUN/creatini ne ratio 16 9-23 Not Available [facility] ([facility]) [address] [facility], [place], [address], 12/06/2023 08:10:08 12/05/19 24 12/06/2023 COMP. METAB OLIC PANEL (14) sodium 142 mmol/ L 134-14 4 Not Available [facility] ([facility]) [address] [facility] [place], [address], 12/06/2023 08:10:08 12/05/19 24 12/06/2023 COMP. METAB OLIC PANEL (14) potassium 4.8 mmol/ L 3.5-5. 2 Not Available [facility] ([facility]) [address] [facility] [place], [address], 12/06/2023 08:10:08 12/05/19 24 12/06/2023 COMP. METAB OLIC PANEL (14) chloride 104 mmol/ L 96-106 Not Available [facility] ([facility]) [address] [facility] [place], [address], 12/06/2023 08:10:08 12/05/19 24 12/06/2023 COMP. METAB OLIC PANEL (14) carbon dioxide, total 23 mmol/ L 20-29 Not Available [facility] ([facility]) [address], [place], [address], 12/06/2023 08:10:08 12/05/19 24 12/06/2023 COMP. METAB OLIC PANEL (14) calcium 9.6 mg/dL 8.7-10 .2 Not Available [facility] ([facility]) [address], [place], [address], 12/06/2023 08:10:08 12/05/19 24 12/06/2023 COMP. METAB OLIC PANEL (14) protein, total 7.0 g/dL 6.0-8. 5 Not Available [facility] ([facility]) [address] [place], [address], 12/06/2023 08:10:08 12/05/19 24 12/06/2023 COMP. METAB OLIC PANEL (14) albumin 4.3 g/dL 3.8-4. 9 Not Available [facility] ([facility]) [address], [place], [address], 12/06/2023 08:10:08 12/05/19 24 12/06/2023 COMP. METAB OLIC PANEL (14) globulin, total 2.7 g/dL 1.5-4. 5 Not Available [facility] ([facility]) [address] [place], [address], 12/06/2023 08:10:08 12/05/19 24 12/06/2023 COMP. METAB OLIC PANEL (14) A/G ratio 1.6 1.2-2. 2 Not Available [facility] ([facility]) [address] [place], [address], 12/06/2023 08:10:08 12/05/19 24 12/06/2023 COMP. METAB OLIC PANEL (14) bilirubin, total 0.4 mg/dL 0.0-1. 2 Not Available [facility] ([facility]) [address], [place], [address], 12/06/2023 08:10:08 12/05/19 24 12/06/2023 COMP. METAB OLIC PANEL (14) alkaline phosphatase 78 IU/L 44-121 Not Available [facility] ([facility]) [address], [place], [address], 12/06/2023 08:10:08 12/05/19 24 12/06/2023 COMP. METAB OLIC PANEL (14) AST (SGOT) 23 IU/L 0-40 Not Available [facility] ([facility]) [address], [place], [address], 12/06/2023 08:10:08 12/05/19 24 12/06/2023 COMP. METAB OLIC PANEL (14) ALT (SGPT) 18 IU/L 0-32 Not Available [facility] ([facility]) [address], [place], [address], 12/06/2023 08:10:08 12/05/19 24 12/06/2023 CBC WITH DIFFE RENTI AL/PL ATELE T WBC 5.7 x10e3 /uL 3.4-10 .8 Not Available [facility] ([facility]) [address] [facility], [place], [address], 12/06/2023 08:10:09 12/05/19 24 12/06/2023 CBC WITH DIFFE RENTI AL/PL ATELE T RBC 5.21 x10e6 /uL 3.77-5 .28 Not Available [facility] ([facility]) [address], [place], [address], 12/06/2023 08:10:09 12/05/19 24 12/06/2023 CBC WITH DIFFE RENTI AL/PL ATELE T hemoglobin 13.1 g/dL 11.1-1 5.9 Not Available [facility] ([facility]) [address] [facility], [place], [address], 12/06/2023 08:10:09 12/05/19 24 12/06/2023 CBC WITH DIFFE RENTI AL/PL ATELE T hematocrit 42.4 % 34.0-4 6.6 Not Available [facility] ([facility]) [address] [facility], [place], [address], 12/06/2023 08:10:09 12/05/19 24 12/06/2023 CBC WITH DIFFE RENTI AL/PL ATELE T MCV 81 fL 79-97 Not Available [facility] ([facility]) [address] [facility], [place], [address], 12/06/2023 08:10:09 12/05/19 24 12/06/2023 CBC WITH DIFFE RENTI AL/PL ATELE T MCH 25.1 pg 26.6-3 3.0 below low normal Not Available [facility] ([facility]) [address] [place], [address], 12/06/2023 08:10:09 12/05/19 24 12/06/2023 CBC WITH DIFFE RENTI AL/PL ATELE T MCHC 30.9 g/dL 31.5-3 5.7 below low normal Not Available [facility] ([facility]) [address] [place], [address], 12/06/2023 08:10:09 12/05/19 24 12/06/2023 CBC WITH DIFFE RENTI AL/PL ATELE T RDW 16.2 % 11.7-1 5.4 above high normal Not Available [facility] ([facility]) [address] [place], [address], 12/06/2023 08:10:09 12/05/19 24 12/06/2023 CBC WITH DIFFE RENTI AL/PL ATELE T platelets 273 x10e3 /uL 150-45 0 Not Available [facility] ([facility]) [address] [place], [address], 12/06/2023 08:10:09 12/05/19 24 12/06/2023 CBC WITH DIFFE RENTI AL/PL ATELE T neutrophils 49 % notest ab. Not Available [facility] ([facility]) [address] [facility], [place], [address], 12/06/2023 08:10:09 12/05/19 24 12/06/2023 CBC WITH DIFFE RENTI AL/PL ATELE T lymphs 39 % notest ab. Not Available [facility] ([facility]) [address] [facility], [place], [address], 12/06/2023 08:10:09 12/05/19 24 12/06/2023 CBC WITH DIFFE RENTI AL/PL ATELE T monocytes 8 % notest ab. Not Available [facility] ([facility]) [address] [facility], [place], [address], 12/06/2023 08:10:09 12/05/19 24 12/06/2023 CBC WITH DIFFE RENTI AL/PL ATELE T eos 3 % notest ab. Not Available [facility] ([facility]) [address] [facility], [place], [address], 12/06/2023 08:10:09 12/05/19 24 12/06/2023 CBC WITH DIFFE RENTI AL/PL ATELE T basos 1 % notest ab. Not Available [facility] ([facility]) [address] [facility], [place], [address], 12/06/2023 08:10:09 12/05/19 24 12/06/2023 CBC WITH DIFFE RENTI AL/PL ATELE T neutrophils (absolute) 2.8 x10e3 /uL 1.4-7. 0 Not Available [facility] ([facility]) [address] [facility], [place], [address], 12/06/2023 08:10:09 12/05/19 24 12/06/2023 CBC WITH DIFFE RENTI AL/PL ATELE T lymphs (absolute) 2.2 x10e3 /uL 0.7-3. 1 Not Available [facility] ([facility]) [address] [facility], [place], [address], 12/06/2023 08:10:09 12/05/19 24 12/06/2023 CBC WITH DIFFE RENTI AL/PL ATELE T monocytes(ab solute) 0.5 x10e3 /uL 0.1-0. 9 Not Available [facility] ([facility]) [address] [facility], [place], [address], 12/06/2023 08:10:09 12/05/19 24 12/06/2023 CBC WITH DIFFE RENTI AL/PL ATELE T eos (absolute) 0.2 x10e3 /uL 0.0-0. 4 Not Available [facility] ([facility]) [address] [facility], [place], [address], 12/06/2023 08:10:09 12/05/19 24 12/06/2023 CBC WITH DIFFE RENTI AL/PL ATELE T baso (absolute) 0.1 x10e3 /uL 0.0-0. 2 Not Available [facility] ([facility]) [address] [facility], [place], [address], 12/06/2023 08:10:09 12/05/19 24 12/06/2023 CBC WITH DIFFE RENTI AL/PL ATELE T immature granulocytes 0 % notest ab. Not Available [facility] ([facility]) [address] [facility], [place], [address], 12/06/2023 08:10:09 12/05/19 24 12/06/2023 CBC WITH DIFFE RENTI AL/PL ATELE T immature grans (abs) 0.0 x10e3 /uL 0.0-0. 1 Not Available [facility] ([facility]) [address] [place], [address], 12/06/2023 08:10:09 05/14/20 24 05/15/2024 ALBUM IN/CR EATIN INE RATIO ,URIN E creatinine, urine 148.8 mg/dL notest ab. Not Available [facility] ([facility]) [address] [facility] [place], [address], 05/15/2024 08:11:44 05/14/20 24 05/15/2024 ALBUM IN/CR EATIN INE RATIO ,URIN E albumin, urine 64.3 ug/mL notest ab. Not Available [facility] ([facility]) [address] [facility] [place], [address], 05/15/2024 08:11:44 05/14/20 24 05/15/2024 ALBUM IN/CR EATIN INE RATIO ,URIN E alb/creat ratio 43 mg/g_ creat 0-29 above high normal Analy l: 0 - 29 Moder ately incre ased: 30 - 300 Sever luis e incre ased: >300 Not Available [facility] ([facility]) [address] [place], [address], 05/15/2024 08:11:44 05/14/20 24 05/15/2024 LIPID PANEL cholesterol, total 118 mg/dL 100-19 9 Not Available [facility] ([facility]) [address] [place], [address], 05/15/2024 08:11:45 05/14/20 24 05/15/2024 LIPID PANEL triglyceride s 150 mg/dL 0-149 above high normal Not Available [facility] ([facility]) [address] [place], [address], 05/15/2024 08:11:45 05/14/20 24 05/15/2024 LIPID PANEL HDL cholesterol 39 mg/dL >39 below low normal Not Available [facility] ([facility]) [address] [place], [address], 05/15/2024 08:11:45 05/14/20 24 05/15/2024 LIPID PANEL VLDL cholesterol facundo 26 mg/dL 5-40 Not Available [facility] ([facility]) [address] [facility], [place], [address], 05/15/2024 08:11:45 05/14/20 24 05/15/2024 LIPID PANEL LDL chol calc ([facility]) 53 mg/dL 0-99 Not Available [facility] ([facility]) [address] [place], [address], 05/15/2024 08:11:45 05/14/20 24 05/15/2024 COMP. METAB OLIC PANEL (14) glucose 132 mg/dL 70-99 above high normal Not Available [facility] ([facility]) [address] [place], [address], 05/15/2024 08:11:45 05/14/20 24 05/15/2024 COMP. METAB OLIC PANEL (14) BUN 12 mg/dL 6-24 Not Available [facility] ([facility]) [address] [place], [address], 05/15/2024 08:11:45 05/14/20 24 05/15/2024 COMP. METAB OLIC PANEL (14) creatinine 0.84 mg/dL 0.57-1 .00 Not Available [facility] ([facility]) [address] [place], [address], 05/15/2024 08:11:45 05/14/20 24 05/15/2024 COMP. METAB OLIC PANEL (14) eGFR 80 mL/mi n/1.7 3 >59 Not Available [facility] ([facility]) [address] [place], [address], 05/15/2024 08:11:45 05/14/20 24 05/15/2024 COMP. METAB OLIC PANEL (14) BUN/creatini ne ratio 14 9-23 Not Available [facility] ([facility]) [address] [place], [address], 05/15/2024 08:11:45 05/14/20 24 05/15/2024 COMP. METAB OLIC PANEL (14) sodium 139 mmol/ L 134-14 4 Not Available [facility] ([facility]) [address] [place], [address], 05/15/2024 08:11:45 05/14/20 24 05/15/2024 COMP. METAB OLIC PANEL (14) potassium 5.5 mmol/ L 3.5-5. 2 above high normal Not Available [facility] ([facility]) [address], [place], [address], 05/15/2024 08:11:45 05/14/20 24 05/15/2024 COMP. METAB OLIC PANEL (14) chloride 103 mmol/ L 96-106 Not Available [facility] ([facility]) [address] [place], [address], 05/15/2024 08:11:45 05/14/20 24 05/15/2024 COMP. METAB OLIC PANEL (14) carbon dioxide, total 24 mmol/ L 20-29 Not Available [facility] ([facility]) [address] [place], [address], 05/15/2024 08:11:45 05/14/20 24 05/15/2024 COMP. METAB OLIC PANEL (14) calcium 9.5 mg/dL 8.7-10 .2 Not Available [facility] ([facility]) [address] [facility] [place], [address], 05/15/2024 08:11:45 05/14/20 24 05/15/2024 COMP. METAB OLIC PANEL (14) protein, total 6.8 g/dL 6.0-8. 5 Not Available [facility] ([facility]) [address], [place], [address], 05/15/2024 08:11:45 05/14/20 24 05/15/2024 COMP. METAB OLIC PANEL (14) albumin 4.2 g/dL 3.8-4. 9 Not Available [facility] ([facility]) [address], [place], [address], 05/15/2024 08:11:45 05/14/20 24 05/15/2024 COMP. METAB OLIC PANEL (14) globulin, total 2.6 g/dL 1.5-4. 5 Not Available [facility] ([facility]) [address] [place], [address], 05/15/2024 08:11:45 05/14/20 24 05/15/2024 COMP. METAB OLIC PANEL (14) bilirubin, total 0.2 mg/dL 0.0-1. 2 Not Available [facility] ([facility]) [address], [place], [address], 05/15/2024 08:11:45 05/14/20 24 05/15/2024 COMP. METAB OLIC PANEL (14) alkaline phosphatase 81 IU/L 44-121 Not Available [facility] ([facility]) [address], [place], [address], 05/15/2024 08:11:45 05/14/20 24 05/15/2024 COMP. METAB OLIC PANEL (14) AST (SGOT) 32 IU/L 0-40 Not Available [facility] ([facility] [address] [facility], [address], 05/15/2024 08:11:45 05/14/20 24 05/15/2024 COMP. METAB OLIC PANEL (14) ALT (SGPT) 32 IU/L 0-32 Not Available [facility] ([facility]) [address] [facility], [place], [address], 05/15/2024 08:11:45 05/14/20 24 05/15/2024 HEMOG LOBIN A1C hemoglobin A1C 7.1 % 4.8-5. 6 above high normal Predi abete s: 5.7 - 6.4 Diabe ana paula: >6.4 Glyce loki contr ol for adult s with diabe ana paula: <7.0 Not Available [facility] ([facility]) [address] [facility], [place], [address], 05/15/2024 08:11:46 05/14/20 24 05/15/2024 CBC WITH DIFFE RENTI AL/PL ATELE T WBC 5.2 x10e3 /uL 3.4-10 .8 Not Available [facility] ([facility]) [address] [facility], [place], [address], 05/15/2024 08:11:47 05/14/20 24 05/15/2024 CBC WITH DIFFE RENTI AL/PL ATELE T RBC 4.88 x10e6 /uL 3.77-5 .28 Not Available [facility] ([facility]) [address] [facility], [place], [address], 05/15/2024 08:11:47 05/14/20 24 05/15/2024 CBC WITH DIFFE RENTI AL/PL ATELE T hemoglobin 12.2 g/dL 11.1-1 5.9 Not Available [facility] ([facility]) [address] [facility], [place], [address], 05/15/2024 08:11:47 05/14/20 24 05/15/2024 CBC WITH DIFFE RENTI AL/PL ATELE T hematocrit 40.5 % 34.0-4 6.6 Not Available [facility] ([facility]) [address] [place], [address], 05/15/2024 08:11:47 05/14/20 24 05/15/2024 CBC WITH DIFFE RENTI AL/PL ATELE T MCV 83 fL 79-97 Not Available [facility] ([facility]) [address] [place], [address], 05/15/2024 08:11:47 05/14/20 24 05/15/2024 CBC WITH DIFFE RENTI AL/PL ATELE T MCH 25.0 pg 26.6-3 3.0 below low normal Not Available [facility] ([facility]) [address] [place], [address], 05/15/2024 08:11:47 05/14/20 24 05/15/2024 CBC WITH DIFFE RENTI AL/PL ATELE T MCHC 30.1 g/dL 31.5-3 5.7 below low normal Not Available [facility] ([facility]) [address] [place], [address], 05/15/2024 08:11:47 05/14/20 24 05/15/2024 CBC WITH DIFFE RENTI AL/PL ATELE T RDW 16.5 % 11.7-1 5.4 above high normal Not Available [facility] ([facility]) [address] [place], [address], 05/15/2024 08:11:47 05/14/20 24 05/15/2024 CBC WITH DIFFE RENTI AL/PL ATELE T platelets 268 x10e3 /uL 150-45 0 Not Available [facility] ([facility]) [address] [place], [address], 05/15/2024 08:11:47 05/14/20 24 05/15/2024 CBC WITH DIFFE RENTI AL/PL ATELE T neutrophils 48 % notest ab. Not Available [facility] ([facility]) [address] [place], [address], 05/15/2024 08:11:47 05/14/20 24 05/15/2024 CBC WITH DIFFE RENTI AL/PL ATELE T lymphs 38 % notest ab. Not Available [facility] ([facility]) [address] [facility], [place], [address], 05/15/2024 08:11:47 05/14/20 24 05/15/2024 CBC WITH DIFFE RENTI AL/PL ATELE T monocytes 9 % notest ab. Not Available [facility] ([facility]) [address] [facility], [place], [address], 05/15/2024 08:11:47 05/14/20 24 05/15/2024 CBC WITH DIFFE RENTI AL/PL ATELE T eos 3 % notest ab. Not Available [facility] ([facility]) [address] [facility], [place], [address], 05/15/2024 08:11:47 05/14/20 24 05/15/2024 CBC WITH DIFFE RENTI AL/PL ATELE T basos 1 % notest ab. Not Available [facility] ([facility]) [address] [facility], [place], [address], 05/15/2024 08:11:47 05/14/20 24 05/15/2024 CBC WITH DIFFE RENTI AL/PL ATELE T neutrophils (absolute) 2.6 x10e3 /uL 1.4-7. 0 Not Available [facility] ([facility]) [address] [place], [address], 05/15/2024 08:11:47 05/14/20 24 05/15/2024 CBC WITH DIFFE RENTI AL/PL ATELE T lymphs (absolute) 2.0 x10e3 /uL 0.7-3. 1 Not Available [facility] ([facility]) [address] [facility], [place], [address], 05/15/2024 08:11:47 05/14/20 24 05/15/2024 CBC WITH DIFFE RENTI AL/PL ATELE T monocytes(ab solute) 0.5 x10e3 /uL 0.1-0. 9 Not Available [facility] ([facility]) [address] [facility], [place], [address], 05/15/2024 08:11:47 05/14/20 24 05/15/2024 CBC WITH DIFFE RENTI AL/PL ATELE T eos (absolute) 0.1 x10e3 /uL 0.0-0. 4 Not Available [facility] ([facility]) [address] [facility], [place], [address], 05/15/2024 08:11:47 05/14/20 24 05/15/2024 CBC WITH DIFFE RENTI AL/PL ATELE T baso (absolute) 0.1 x10e3 /uL 0.0-0. 2 Not Available [facility] ([facility]) [address] [facility], [place], [address], 05/15/2024 08:11:47 05/14/20 24 05/15/2024 CBC WITH DIFFE RENTI AL/PL ATELE T immature granulocytes 1 % notest ab. Not Available [facility] ([facility]) [address] [facility], [place], [address], 05/15/2024 08:11:47 05/14/20 24 05/15/2024 CBC WITH DIFFE RENTI AL/PL ATELE T immature grans (abs) 0.0 x10e3 /uL 0.0-0. 1 Not Available [facility] ([facility]) [address] [place], [address], 05/15/2024 08:11:47 08/16/20 24 08/18/2024 05046 9 10 DRUG- BUND amphetamines , urine NEGATI VE NG/mL cutoff =1000 Amphe tamin e test inclu brian Amphe tamin e and Metha mphet amine . Not Available [facility] ([facility]) [address] [facility], [place], [address], 08/18/2024 10:16:37 08/16/20 24 08/18/2024 42831 9 10 DRUG- BUND barbiturates NEGATI VE NG/mL cutoff =200 Not Available [facility] ([facility]) [address] [facility], [place], [address], 08/18/2024 10:16:37 08/16/20 24 08/18/2024 41560 9 10 DRUG- BUND benzodiazepi lynn NEGATI VE NG/mL cutoff =200 Not Available [facility] ([facility]) [address] [facility], [place], [address], 08/18/2024 10:16:37 08/16/20 24 08/18/2024 70744 9 10 DRUG- BUND cannabinoid NEGATI VE NG/mL cutoff =50 Not Available [facility] ([facility]) [address] [facility], [place], [address], 08/18/2024 10:16:37 08/16/20 24 08/18/2024 30609 9 10 DRUG- BUND cocaine (metab.) NEGATI VE NG/mL cutoff =300 Not Available [facility] ([facility]) [address] [place], [address], 08/18/2024 10:16:37 08/16/20 24 08/18/2024 60889 9 10 DRUG- BUND methaqualone NEGATI VE NG/mL cutoff =300 Not Available [facility] ([facility]) [address] [facility], [place], [address], 08/18/2024 10:16:37 08/16/20 24 08/18/2024 10438 9 10 DRUG- BUND opiates NEGATI VE NG/mL cutoff =2000 Opiat e test inclu brian Codei ne and Morph ine only. Not Available [facility] ([facility]) [address] [facility], [place], [address], 08/18/2024 10:16:37 08/16/20 24 08/18/2024 80565 9 10 DRUG- BUND phencyclidin e NEGATI VE NG/mL cutoff =25 Not Available [facility] ([facility]) [address] [facility], [place], [address], 08/18/2024 10:16:37 08/16/20 24 08/18/2024 76963 9 10 DRUG- BUND methadone screen, urine NEGATI VE NG/mL cutoff =300 Not Available [facility] ([facility]) [address] [facility], [place], [address], 08/18/2024 10:16:37 08/16/20 24 08/18/2024 42046 9 10 DRUG- BUND propoxyphene , urine NEGATI VE NG/mL cutoff =300 Not Available [facility] ([facility]) [address] [facility], [place], [address], 08/18/2024 10:16:37 08/16/20 24 08/16/2024 HbA1c (hemo globi n A1c), blood HbA1c 6.6 Not Available In-Office Order Internal Use Only DO Not Attach Compendium DO Not Attach Compendium, Do Not Delete/merge, [id number] 08/16/2024 15:42:53 02/13/20 24 02/13/2024 MAMMO , scree khadar, digit al, bilat eral No observ ation record ed. [email or web address] [facility] [address], [place], [address], 05/17/2024 15:21:30 05/18/20 24 05/17/2024 XR, lumba r spine , 2 view No observ ation record ed. [facility] [address], [place], [address], 05/31/2024 10:58:57 05/18/20 24 05/17/2024 XR, hip, bilat eral No observ ation record ed. [facility] [address], [place], [address], 05/31/2024 10:58:57 05/30/20 24 05/28/2024 US, upper arm No observ ation record ed. [facility] [address], [place], [address], 05/31/2024 10:58:58 09/12/19 25 09/12/2024 imagi ng/di agnos tic resul t No observ ation record ed. [facility] [address], [place], [address], 09/12/2024 12:53:12 Result Notes None recorded. Problems Name Problem SNOMED Code Status Onset Date Resolution Date Notes Provider Name and Address Organization Details Recorded Time Hyperten sive disorder 58304912 Active 2019 SALINAS PENN PA-C Attn: Accounting ,[address] [facility], [place], [address] , [place] [facility] 3 16:56:36 Serum choleste rol very high 260597061 Completed 201901/02/2020 VERONICA REMY Attn: Accounting ,[address] [facility], [place], [address] , [place] [facility] 0 15:30:16 Multiple sclerosi s 92506807 Active 2019 Not Available [facility] 3 17:39:11 Gastropa resis syndrome 309316306 Active 2019 Not Available [facility] 3 17:39:11 Irritabl e bowel syndrome 66403974 Active 2019 SALINAS PENN PA-C Attn: Accounting ,[address] [facility], [place], [address] , [place] [facility] 4 15:19:59 Myocardi al infarcti on 26103973 Completed 201009/15/2019 Samantha Raymond [place], [place] [facility] 0 14:54:23 Type 2 diabetes mellitus 56529703 Active 2019 SALINAS PENN PA-C Attn: Accounting ,[address] [facility], [place], [address] , [place] [facility] 3 16:56:21 Hypothyr oidism 42146414 Active 2019 SALINAS PENN PA-C Attn: Accounting ,[address] [facility], [place], [address] , [place] [facility] 4 15:19:52 Systemic lupus erythema tosus 08779590 Completed 201902/29/2020 VERONICA REMY Attn: Accounting ,[address] [facility], [place], [address] , [place] [facility] 0 15:13:55 History of myocardi al infarcti on 341838642 Active 2019 H/o of [place] in 2000 s/p PCI Not Available [facility] 3 17:39:11 Angina pectoris 963887828 Active 2019 Went to [facility] on 12/18 for chest pain, CP improved with nitro. EKG normal. Admitted to cardiolo gy. Cardiac cath performe d on 12/20/19, showed 60-70% stenosis of prox. circumfl ex and 50-70% mid RCA stenosis . NL EF of 70%. Mildly elevated LVED filling pressure . Previous stent in LAD with 10% stent restenos is. Not Available [facility] 3 17:39:11 Coronary arterios clerosis 87860250 Active 2019 Hospital ized at [facility] on 12/19/19 for chest pain. Cardiac cath showed CAD, isosorbi de mononitr ate added to regimen. Now followin g with [facility] Cardiolo gy Not Available [facility] 3 17:39:11 Hyperlip idemia 31155648 Active 2019 SALINAS PENN PA-C Attn: Accounting ,[address] [facility], [place], [address] , [place] [facility] 3 16:56:23 Obstruct jeannette sleep apnea syndrome 70379696 Active 2019 Cardiolo gy rec. repeat sleep study and tx for LISSETTE Not Available [facility] 3 17:39:11 Degenera tion of lumbosac ral interver tebral disc 32122746 Active 2019 Xray showed multilev el lumar spine degenera tive disc disease, severe from L3-S1 Not Available [facility] 3 17:39:11 Osteoart hritis of hip 523986301 Active 2019 Xray showed mild bilatera l hip OA Not Available [facility] 3 17:39:11 Osteoart hritis of joint of bilatera l hands 38830227133 9109 Active 2019 Xrays showed bilatera l thumb OA SALINAS PENN PA-C Attn: Accounting ,[address] [facility], [place], [place], [address] [place] [address] , [facility] - [facility] 4 15:19:55 Depressi ve disorder 42946159 Active 2023 SALINAS PENN PA-C Attn: Accounting ,[address] [facility], [place], [place], [address] [place] [address] , [facility] - [facility] 4 15:55:55 Degenera tion of interver tebral disc 93217776 Active 2023 SALINAS PENN PA-C Attn: Accounting ,[address] [facility], [place], [place], [address] [place] [address] , [facility] - [facility] 4 18:02:02 Notes:Some problems listed i n Documents: #[id number], #[id number] could not be added to this patient's chart. Please review these documents and add these problems to the patient's chart manually as needed. Problem Notes None recorded. Procedures Surgical History Date Name Laterality Status Provider Name and Address Organization Details Recorded Time 01/03/20 23 Date of Last Mammogram completed Amanda Huerta MA [place] - [facility] 03/06/2023 14:56:30 06/07/20 20 colonoscopy completed VERONICA REMY Attn: Accounting,[address] [facility], [place], [address], [place] [facility] 11/20/2020 10:13:50 09/07/19 17 arthroplasty of knee completed Samantha Raymond MA PA - [facility] 09/15/2019 14:55:13 09/07/19 15 Carpal tunnel surgery completed Samantha Raymond MA [facility] 09/15/2019 14:55:33 09/07/19 14 Date of Last Pap Smear completed Dariana Tan MA PA - [facility] 04/28/2023 10:23:21 09/07/19 10 laparoscopic adjustable gastric banding completed Samantha Raymond MA [facility] 09/15/2019 14:55:57 04/07/20 06 endometrial ablation completed VERONICA REMY Attn: Accounting,[address] [facility], [place], [address], [facility] - [facility] 04/28/2023 16:55:51 09/07/18 98 ligation of fallopian tube completed Samantha Raymond MA [facility] 09/15/2019 14:56:14 09/07/18 72 Removal of tonsils completed Samantha Raymond MA [facility] 09/15/2019 14:54:53 Imaging Results Imaging Date Name Status LastModified by Organ [facility] Details LastModified Time 02/13/2024 MAMMO, screening, digital, bilateral completed [email or web address] [facility] [address], [place], [address], 05/17/2024 15:21:30 05/17/2024 XR, lumbar spine, 2 view completed [facility] [address], [place], [address], 05/31/2024 10:58:57 05/17/2024 XR, hip, bilateral completed [facility] [address], [place], [address], 05/31/2024 10:58:57 05/28/2024 US, upper arm completed [facility] [address], [place], [address], 05/31/2024 10:58:58 09/12/2024 imaging/diagno stic result active [facility] [address], [place], [address], 09/12/2024 12:53:12 Procedure Notes None recorded. Medical Equipment None Reported. Allergies Allergen ID Allergen Name Allergen Category Reaction Reaction Severity Criticality Documentation Date Start Date Code Code System Note Provider Name and Address Organization Details Recorded Time 401632 Substance with sulfonami de structure and antibacte rial mechanism of action (substanc e) medicatio n facial swelling severe Not available 09/15/2019 47452 8003 SNOMED [place]LY [place], [place] [facility] 0 14:40:28 745885 latex environme nt,medica tion itching severe Not available 09/15/2019 11276 91 RxNorm ORLY [place], [place] [facility] 0 14:40:47 456328 adhesive tape environme nt,medica tion rash Not available Not available 09/15/2019 ORLY [place], [place] - [facility] 0 14:41:07 Medications Name Sig Start Date [...] 10 mg-3.5 gram-12 gram/160 mL oral solution 12/12 completed Not Available Not Available Not [...] height Body mass index (BMI) Body weight Body temperature Oxygen saturation Oxygen saturation in Arterial blood by Pulse oximetry Heart rate Systolic blood pressure Diastolic blood pressure Provider Name and Address Organization Details Last Updated DateTime 4 160.02 cm 42.5 kg/m2 793784. 45 g 98.5 [degF] 94 % 94 % 91 /min 128 mm[Hg] 70 mm[Hg] Dariana Tan MA PA - [facility] 4 12:39:05 Date Recorded Body height Body mass index (BMI) Body weight Oxygen saturation Oxygen saturation in Arterial blood by Pulse oximetry Heart rate Systolic blood pressure Diastolic blood pressure Provider Name and Address Organization Details Last Updated DateTime 4 160.02 cm 42.8 kg/m2 308481. 2 g 98 % 98 % 80 /min 126 mm[Hg] 82 mm[Hg] Dariana Tan MA PA - [facility] 4 15:02:25 Date Recorded Body height Body mass index (BMI) Body weight Oxygen saturation Oxygen saturation in Arterial blood by Pulse oximetry Heart rate Systolic blood pressure Diastolic blood pressure Provider Name and Address Organization Details Last Updated DateTime 4 160.02 cm 45.7 kg/m2 719174. 55 g 95 % 95 % 91 /min 134 mm[Hg] 80 mm[Hg] Dariana Tan [place] [facility] 4 14:50:42 Date Recorded Body height Body mass index (BMI) Body weight Oxygen saturation Oxygen saturation in Arterial blood by Pulse oximetry Heart rate Systolic blood pressure Diastolic blood pressure Provider Name and Address Organization Details Last Updated DateTime 4 160.02 cm 44 kg/m2 661680. 71 g 98 % 98 % 77 /min 124 mm[Hg] 76 mm[Hg] Melany Moura MA PA - [facility] 4 15:30:53 Date Recorded Body height Body mass index (BMI) Body weight Oxygen saturation Oxygen saturation in Arterial blood by Pulse oximetry Heart rate Systolic blood pressure Diastolic blood pressure Provider Name and Address Organization Details Last Updated DateTime 4 160.02 cm 42.8 kg/m2 076403. 86 g 96 % 96 % 87 /min 116 mm[Hg] 74 mm[Hg] Evangelina Espinoza MA PA - [facility] 4 14:28:22 Social History Question Answer Notes LastModified by Organizat ion Details LastModified Time Tobacco Smoking Status Former Smoker quit in 2019 ORLY López, [place] - [facility] 04/28/2023 10:24:35 Do You Have An Advance [...] Skin Problems N Anemia N Heart Attack (MA) Y Anxiety Disorder Y Diabetes N Muscle, Joint, or Bone Problems Y Seizures/Epilepsy N Acid Reflux (GERD) N Cancer Y Stroke N Asthma N Allergies N High Cholesterol Y Hepatitis N Liver Disease N Headaches N Osteoporosis N Heart Failure N Gynecological History Statement/Question Response Date of [...] 6 completed VERONICA REMY Attn: Accounting,[address] [facility], [place], [address], [place] [facility] 05/22/2020 16:33:08 Influenza, split [...] [facility] 08/19/2021 16:30:38 zoster recombinant 2 completed [place] [facility] 02/12/2022 13:27:58 COVID-19, mRNA, LNP-S, PF, 30 mcg/0.3 mL dose 2 completed Zainab Lindsay [place], [place] [facility] 02/12/2022 13:28:18 Hep B, unspecified formulation 2 completed [place] [facility] 05/26/2022 10:58:58 Influenza, split virus, quadrivalent, preservative 2 completed [place] [facility] 05/26/2022 10:59:15 COVID-19, mRNA, LNP-S, PF, 30 mcg/0.3 mL dose 2 completed [place] [facility] 05/26/2022 10:59:45 SARS-COV-2 (COVID-19) vaccine, UNSPECIFIED 3 completed ORLY [place] [facility] 06/01/2023 08:39:31 COVID-19, mRNA, LNP-S, PF, 30 mcg/0.3 mL dose 4 completed Oliva Dunn RN [place] [facility] 05/13/2024 11:25:00 Influenza, split virus, quadrivalent, PF 1 completed Amanda Huerta [place] [facility] 08/15/2024 12:56:56 Influenza, split virus, quadrivalent, preservative 0 completed Zainab [place] [facility] 05/22/2020 15:31:17 pneumococcal polysaccharide PPV23 0 completed Zainab [place] [facility] 05/22/2020 15:31:54 Tdap 0 completed Zainab [place] [facility] 05/22/2020 15:32:25 Past Encounters Encounter ID Performer Location Encounter Start Date Encounter Closed Date Diagnosis/Indication Diagnosis SNOMED-CT Code Diagnosis ICD10 Code Diagnosis Note [id number] VERONICA REMY (Adult Med) [address] [place] [address] 09/15/2019 14:08:47 09/16/2019 10:52:22 Hypertensive disorder 65825767 I10 BP Today: 132/78c/w hctz 12.5, lisinopril 40 mg, and metoprolol 50 mg BID DIscussed consequenc es of HTN including kidney, eye, heart damage, stroke, and even Does not need refills at this timeRTC 6 months for BP check Multiple sclerosis [address] Torres at [facility] for neurology care.Hx of MS, usually follows once every year unless she has a flare up in MS. Pain in right thumb 1076 [id number] 889884 M79.644 Admits to having right thumb pain, stiffness, and swelling.S tates it will sometimes be stiff and painful in the mornings when she wakes up and other times it will bother her after a long day at work.She states she does a lot of typing and writing at work.Takes meloxicam 15 mg qd, states it helped in the beginning but does not feel like it is helping as much now.On PE: R thenar eminence swellingLi leticia OA from overuse but will check for RA- Patient interested in something else to help with pain and stiffness, will see results and then make change to medication Screening for malignant neoplasm of breast 920043361 Z12.39 Due for a mammogram next month.No prior hx of abnormal mammograms .- Provided patient with mammogram order, she understand s she needs to call and schedule appointmen t Diabetes mellitus [id number] E11.9 Hx of diabetes, states her hgba1c was last around 6.0 05/2019.Ronen es metformin and victoza without complicati ons.Had an eye exam completed 10/26, she had lens replaced at that time.- will check hgba1c today- gave patient referral for diabetic eye exam- continue with medication , does not need refills at this time Hypothyroidism 25087512 E03.9 Hx of hypothyroi dism States she has beent taking levothyrox ine 88 mcg for many years at same dose- Will check today Anemia 615021563 D64.9 Hx of anemiaTake s oral iron daily- Will check today Anxiety 17082422 F41.9 Hx of anxiety. She takes citalopram daily and xanax only as needed. Patient aware that I do not prescribe benzodiaza Richa was open to trying hydroxyzin e for anxiety and possibly at night to help her sleep Adult heal th examination 240757995 Z00.00 Colonoscop y - due 2019, plans to see her GI doctor for thisMammog romel - due 10/2019Pap smear - not needed, hx of total hysterecto my [id number] VERONICA REMY (Adult Med) [facility] [place] [address] 10/11/2019 14:29:45 10/11/2019 16:07:04 Systemic lupus erythematosus 64036672 M32.9 Recent blood work showed positive SONJA and Anti-dsDNA Patient requested to be seen by Dr. Thomas but that is a neurologis t instead of a rheumatolo gist- Will put in referral for new SLE diagnosis Bilateral hand joint stiffness [id number] 0750322 M25.641 Admits to having right thumb pain, stiffness, and swelling. States it will sometimes be stiff and painful in the mornings when she wakes up and other times it will bother her after a long day at work.Takes meloxicam 15 mg qd, states it helped in the beginning but does not feel like it is helping as much now. - Will check for RA Adult heal th examination [id number] Z00.00 Colonoscop y - due 2019, plans to see her GI doctor for thisMammog romel - due 03/2020Pap smear - not needed, hx of total hysterecto myPHQ 10/16 was negative in office today (3 out of 27) Hypertensive disorder 38 643088 I10 BP Today: 140/82, 140/90c/w hctz 12.5, lisinopril 40 mg, and metoprolol 50 mg BID DIscussed consequenc es of HTN including kidney, eye, heart damage, stroke, and even - will increase hctz from 12.5 mg to 25 mg dailyRTC 6 months for BP check [id number] VERONICA REMY (Adult Med) [address] [place] [address] 12/13/2019 11:26:47 12/14/2019 14:16:49 Systemic lupus erythematosus 71852451 M32.9 Positive SONJA and Anti-dsDNA Appointmen t was supposed to be 12/05/2019 but this got reschedule d to 01/2020 due to COVID-19Co mplaining of multiple joint pain and stiffnessI buprofen and meloxicam no longer working - Will start tramadol 50 mg PRN, will give 21 tablets per 30 days, she is to take for days with severe pain- keep appointmen t with rheumatolo gy- RTC after rheumatolo gy appointmen t so 02/2020 Generalize d aches and pains 79023671 R52 Complainin g today of worsening of body aches and headache. She states she feels as if she has a fever but does not. The ibuprofen is not helping her symptoms.S he is unable to do her job currently because of how bad she is feeling, the joints in her fingers are so stiff that is hurts to type.Layne s URI and GI symptoms at this time- provided her with a work note allowing her to take the rest of the week off- encouraged to continue with supportive care at home and get lots of rest- if she develops any type of URI or GI symptoms in addition to her body aches, please call the office [phone] [facility] [address] [place] [address] 02/09/2020 12:24:33 02/10/2020 13:00:48 Hypertensive disorder 81268091 I10 BP Today: unable to check todayc/w hctz 25, lisinopril 40 mg or 20?, metoprolol 50 mg BID, and IM 30 mg DIscussed consequenc es of HTN including kidney, eye, heart damage, stroke, and even RTC 6 months for BP check Screening for malignant neoplasm of breast 378655038 Z12.39 Due for a mammogram next month.No prior hx of abnormal mammograms .- Provided patient with mammogram order at last visit, she understand s she needs to call and schedule appointmen t Multiple sclerosis 20036 [address] Torres at [facility] for neurology care.Hx of MS, usually follows once every year unless she has a flare up in MS. Diabetes mellitus 749302 09 E11.9 Hx of diabetesHg bA1c was 6.5 09/15/2019 Takes metformin and victoza without complicati ons.Had an eye exam completed 10/26, she had lens replaced at that time.- gave patient referral for diabetic eye exam at last visit- continue with medication , does not need refills at this time Hypothyroidism 05657980 E03.9 Hx of hypothyroi dismLabs 09/15/2019 showed patient is euthyroid on her current medication States she has beent taking levothyrox ine 88 mcg for many years at same dose- continue with medication Pain in right thumb [id number] 065643 M79.644 Admits to having right thumb pain, stiffness, and swelling.S tates it will sometimes be stiff and painful in the mornings when she wakes up and other times it will bother her after a long day at work.She states she does a lot of typing and writing at work.Takes meloxicam 15 mg qd, states it helped in the beginning but does not feel like it is helping as much now.On PE: R thenar eminence swellingLi leticia OA from overuse Anxiety 10567342 F41.9 Hx of anxiety. She takes citalopram daily and hydroxyzin e only as needed. Patient aware that I do not prescribe benzodiaza p[place] Adult heal th examination 650931410 Z00.00 Colonoscop y - due 2019, plans to see her GI doctor for thisMammog romel - due 10/2019Pap smear - not needed, hx of total hysterecto my Coronary arteriosclerosis 75462419 I25.10 She went to [facility] on 12/19/2019 for chest pain.The EKG was normal and the chest pain improved with nitro in the ER.A cardiac cath was completed, showed CAD, she was discharged home with isosorbide mononitrat e and nitro PRN.She has been doing well since discharge, has only had one episode of chest pain which was resolved by 1 tablet of nitro. She follows up again with cardiology 04/2020. - continue with medication - continue to follow with cardiology Systemic l upus erythematosus 93445992 M32.9 Positive SONJA and Anti-dsDNA Complainin g of multiple joint pain and stiffnessI buprofen and meloxicam no longer working, now taking tramadol PRN for break through painShe saw louie garcia at [facility] last month, they ordered additional labs and imaging but patient has not completed those, I never heard from them regarding the tests .- encouraged her to call rheumatrobel garcia office back and ask how, when, and where she needs to get additional testing complete Obstructiv e sleep apnea syndrome 34425470 G47.33 Hx of LISSETTE, stopped wearing CPAP back in 2016 due to being uncomforta ble with amount of 02Rheum and cardio both recommende d her to have a repeat but did not provide the orders- will put in sleep medicine referral for repeat study for at least help with CPAP titration [id number] VERONICA REMY (Adult Med) [address] [place] [address] 02/29/2020 15:02:50 03/02/2020 09:24:31 Degeneration of lumbosacral intervertebral disc 57581595 M51.37 Complainin g of low back painXray showed multilevel lumbar spine degenerati ve disc disease, severe from L3-S1Hx of spinal injections >10 years ago and she remembers those helping with her painTakes meloxicam and tramadol- c/w medication s- will refer to PT for OA of back and hips Anxiety 63304354 F41.9 Hx of anxiety. She takes citalopram daily and hydroxyzin e only as needed. Needs refill on her hydroxyzin e- will send to pharmacy Osteoarthr osis of the carpometacarpal joint of the thumb 30078018 M18.9 Xray showed bilateral OA of interphala ngeal and CTC joint of the thumbTakin g meloxicam and tramadol - will send to OT [id number] VERONICA REMY (Adult Med) [facility] [place] [address] 05/22/2020 14:06:29 05/23/2020 08:51:06 Type 2 diabetes mellitus 69646259 E11.9 Last A1C: 7.5 today (05/22/20), 6.5 (09/15/2019) Fasting BG range: not checking at home regularly, has supplies Current Therapy: Takes metformin 500 mg qd and victoza without complicati ons. Statin: atorvastat in 40 mg ELIZABETH/ARB: lisinopril 20 mg Foot Exam: completed today, normal Eye Exam: Had an eye exam completed 10/26, she had lens replaced at that time. Microalbum in: Needs completed Pneumovax 23: PVC 13 02/2016 (prior PCP), [id number] administer ed today 05/22/2020 Pt was counseled on low carbohydra te diet to better manage diabetes. We went discussed pt's diet at length and I made specific dietary recommenda tions. I also encouraged regular exercise of 30-60 minutes most days of the week. Pt was encouraged to get yearly diabetic eye exams as well. - increased metformin from 500 mg qd to BID- continue with healthy eating and exercise- continue with Victoza- f/u in 3 months Degenerati on of lumbosacral intervertebral disc 01367835 M51.37 Complainin g of low back painXray showed multilevel lumbar spine degenerati ve disc disease, severe from L3-S1Hx of spinal injections >10 years ago and she remembers those helping with her painShe decided to wait on PT/OT for now due to financial reasons, states it was too expensive currently. Takes meloxicam and tramadol- c/w medication s, (watch for QT prolongati on)- follow up with PT when possible Anxiety 56846649 F41.9 Hx of anxiety and middle insomnia.S he takes citalopram daily, was taking hydroxyzin e PRN but Cardiology recently stopped this due to QT prolongati on.Patient is wondering if she can take anything else to help her sleep. - advised patient that adding any other sleep aids are likely to only cause other serious drug reactions at this time- discuss increasing amitriptyl ine if needed rather than adding medication Active or passive immunization [id number] Z23 Influenza and Tdap administer d in the the office today Obstructiv e sleep apnea syndrome 62156004 G47.33 Hx of LISSETTE, stopped wearing CPAP back in 2017 due to being uncomforta ble with amount of 02Rheum and cardio both recommende d her to have a repeat but did not provide the orders- pt. saw pulmonolog y for initial visit but then did not hear from them again regarding split night sleep study, I provided her with their phone number, encouraged her to call for f/u [phone] VERONICA REMY (Adult Med) [address] [place] [phone] 08/20/2020 14:34:56 08/20/2020 15:40:44 Type 2 diabetes mellitus 48524319 E11.9 Last A1C: 8.2 today ( 0) 7.5 (05/22/20), 6.5 (09/15/2019) Fasting BG range: not checking at home regularly, has supplies Current Therapy: Takes metformin 500 mg BID and victoza without complicati ons. Statin: atorvastat in 40 mg ELIZABETH/ARB: lisinopril 20 mg Foot Exam: 05/22/2020 normal Eye Exam: Had an eye exam completed 10/26, she had lens replaced at that time. Microalbum in: Needs completed Pneumovax 23: PVC 13 02/2016 (prior PCP), PPV23 administer ed 05/22/2020 Pt was counseled on low carbohydra te diet to better manage diabetes. We went discussed pt's diet at length and I made specific dietary recommenda tions. I also encouraged regular exercise of 30-60 minutes most days of the week. Pt was encouraged to get yearly diabetic eye exams as well. Patient has not changed diet over the last 3 months.- Instructed patient to start taking metformin 500mg 3 times a day for 2 weeks and if tolerated start taking 500mg 4 times a day for a goal of 2000mg of Metformin a day-Prescr ibed Metformin 1000mg for when current 500mg tablets are completed- continue with healthy eating and exercise- continue with Victoza- f/u in 3 months Hypertensive disorder 38 725555 I10 When went to urgent care for otalgia last week reports BP 180s/100s. She was having no symptoms at the time. Patient does not have a blood pressure cuff at home to check BP regularly. Denies worsening headaches, changes in vision, chest pain, palpitatio ns, or dysuria. Medication s: hctz 25, lisinopril 20mg, metoprolol 50mg BID, and IM 30mg Today BP: 138/92, 120/80, 128/86 DIscussed consequenc es of HTN including kidney, eye, heart damage, stroke, and even -c/w current regiment, will continue to monitor-Or himanshu blood pressure kit in september when FSA starts over Otalgia 11688872 H92.02 2 weeks ago patient began having otalgia of the left ear with pruritis. Had a phone visit with insurance company and was prescribed amoxicilli n. Pain increased and started to radiate down the left side of her neck in which she went to urgent care. Per patient, external ear was erythemato us and swollen. Pt was sent home with antibiotic and steroid otic drops. Today patient states that her otalgia and pruritis have resolved with the medication s. However, she is still having some fullness. Denies fever, chills, otorrhea, vertigo, and worsening headaches. On PE: left ear external ear nl. EAC clear and non-erythe matous. TM mobile with noted light reflex. No fluid behind TM and no dullness. -Discussed with patient to observe at this moment since she has completed the oral and topical antibiotic s Osteoarthritis 917416641 M19.90 Hx of osteoarthr itis of bilateral hands and hipsTakes meloxicam 15mg qd and tramadol 50mg as neededPati ent states she's had worsening pain of the base of the right thumb. She was interested in increasing meloxicam dose if possible. On PE: Right hand: edema noted around base of thumb, no erythema. ROM nl. tender to palpation at base of 1st metacarpal .-Discusse d with patient that she is at the maximum dose of meloxicam- Prescribed voltaren gel since her pain is more localized. Adult heal th examination 728533860 Z00.00 Colonoscop y - due 2019, plans to see her GI doctor for thisMammog romel - due 10/2019Pap smear - not needed, hx of total hysterecto my-Will do annual labs next visit [id number] VERONICA REMY (Adult Med) [address] [place] [phone] 09/20/2020 11:40:26 09/21/2020 10:28:38 Suspected COVID-19 [id number] Z03.89 Complainin g of scratchy throat, new onset headache, body aches, low-grade fever, one episode of diarrhea, clear nasal discharge, and intermitte nt dry cough x 1-2 days.She was visiting her sister back in [place] for the past 2 weeks, her sister tested positive for COVID earlier this week prior to a surgery she was supposed to have. Last contact with infected COVID patient was 09/16/2020 or 4 days ago.She has only taken ibuprofen so far for her headache and low grade fever. She already takes a baby aspirin and Vit. D at home on a daily basis.- due to new onset symptoms and recent pro-longed exposure to COVID infected individual , order for COVID testing sent to [facility], patient aware to wait for phone call prior to arrival at testing site- encouraged supportive care at home, gets lots of rest and drink plenty of fluids- D/w pt the current pandemic of COVID-19 and call for social isolation in order to blunt the curve and minimize risk and spread. Encouraged patient and family to take restrictio ns seriously. She verbalized understand ing of such. [id number] VERONICA REMY (Adult Med) [address] [place] [address] 11/20/2020 09:13:15 11/20/2020 10:39:23 Type 2 diabetes mellitus 51631153 E11.9 Last A1C: 7.4 today (11/20/2020 ), 8.2 ( 0) 7.5 (05/22/20), 6.5 (09/15/2019) Fasting BG range: Not checking at home regularly, but has supplies Current Therapy: Metformin 1000 mg BID and Victoza 1.8 mg SQ QD - Requesting an alternativ e medication to Victoza as it has increased in sears in the past few months Statin: Atorvastat in 40 mg QD ELIZABETH/ARB: Lisinopril 20 mg QD Foot Exam: Normal monofilame nt test today (11/20/2020 )Eye Exam: Had an eye exam completed 10/2018, next appointmen t scheduled for 12/06/2020 Microalbum in: Ordered today Pneumovax 23: PVC 13 02/2016 (prior PCP), PPV23 administer ed 05/22/2020 Patient was counseled on low carbohydra te diet to better manage diabetes. We discussed patient's diet at length, and I made specific dietary recommenda tions. I also encouraged regular exercise of 30-60 minutes most days of the week. Patient was encouraged to get yearly diabetic eye exams as well. - Continue Metformin 1000 mg BID- Finish prescripti on of Victoza then start Farxiga 10 mg QD- Advised her to monitor and log fasting BS and after dinner in the evening- Continue with healthy eating and exercise- Follow-up in 3 months for recheck Hypertensive disorder 38 399529 I10 BP Today: 118/84- Continue with metoprolol 50 mg, lisinopril 20 mg, HCTZ 25 mg- Ordered BP cuff today- Advised her to regularly check BP at home Discussed DASH diet Advised 30 minutes of exercise minimum daily Advised tobacco, alcohol, caffeine all increase BP Advised goal for BP is < 140/90 Contact office if BP is > 140/90 consistent ly Discussed consequenc es of HTN including kidney, eye, heart damage, stroke, and even Adult [facility] th examination 134815241 Z00.00 Colonoscop y: Last colonoscop y 06/2020, next due 2030Mammog romel: Due 10/2019, provided referral today (11/20/2020 )Pap Smear: Not needed, history of total hysterecto my- Ordered annual labs today Hypothyroidism 20549454 E03.9 Labs on 09/15/2019 euthyroidi sm on current medication States she has taken levothyrox ine 88 mcg for many years at same dose- Continue with levothyrox ine 88 mcg- Ordered recheck TSH with reflex Screening for malignant neoplasm of breast 314311577 Z12.39 Last mammogram was a few years agoNo prior history of abnormal mammograms - Provided mammogram order today to be completed in the next few months Hyperlipidemia 66456954 E78.5 Currently taking atorvastat in 40 mg QD- Ordered lipid panel today- Continue with atorvastat in 40 mg QD Irritable bowel syndrome 84826354 K58.9 History of IBS that is well-contr olled on Linzess 290 mcg QD- Continue with Linzess 290 mcg QD, will send to medicate pharmacy to reduce sears Insomnia 954767935 G47.[address] recommende d discontinu ing hydroxyzin e to due possible QTc prolongati onShe continues to complain of difficulty sleeping and is not currently on medication sShe has not tried melatonin in the past- Start melatonin 5 mg at bedtime Multiple sclerosis 37730 007 G35 History of MS that is well-contr olled without medication sDenies recent MS flaresFoll ows with Dr. Torres at [facility] for neurology care annually unless she has a flareNext neurology appointmen t is scheduled for 01/2021- keep upcoming appointmen t- will add her name to the list for COVID vaccine [id number] VERONICA REMY [facility] (Adult Med) [address] [place] [phone] 02/20/2021 14:09:44 02/20/2021 15:40:14 Type 2 diabetes mellitus 89945264 E11.9 Last A1C: 7.8 (02/20/21) 7.4( 021), 8.2 ( 0) 7.5 (05/22/20), 6.5 (09/15/2019) Fasting BG range: Not checking at home regularly, but has suppliesCu rrent Therapy: Metformin 1000 mg BID and Farxiga 10 mgStatin: Atorvastat in 40 mg QDACE/ARB: Lisinopril 20 mg QDFoot Exam: Normal monofilame nt test last visit (11/20/2020 )Eye Exam: Had an eye exam completed 12/2020Micr oalbumin: 19Pneumova x 23: PVC 13 02/2016 (prior PCP), PPV23 administer ed 05/22/2020 Patient was counseled on low carbohydra te diet to better manage diabetes. We discussed patient's diet at length, and I made specific dietary recommenda tions, removal of sweet tea from diet. I also encouraged regular exercise of 30-60 minutes most days of the week. Patient was encouraged to get yearly diabetic eye exams as well. - Continue Metformin 1000 mg BID- Farxiga 10 mg QD- Advised her to monitor and log fasting BS and after dinner in the evening- Continue with healthy eating and exercise - limit sweet tea to once per week- Follow-up in 3 months for recheck of A1C Hypertensive disorder 38 589404 I10 BP Today: 120/80Pati ent stopped HCTZ due to facial flushing- Continue with metoprolol 50 mg, lisinopril 20 mg, and isosorbide mononitrat e 30 mg- Ordered BP cuff today- Advised her to regularly check BP at home Hypothyroidism 10735343 E03.9 Labs on 09/15/2019 euthyroidi sm on current medication States she has taken levothyrox ine 88 mcg for many years at same dose, needs refills- Continue with levothyrox ine 88 mcg Overactive urinary bladder 595942772 N32.81 Chronic urinary frequencyP t is urinating every 2 hours during the day and overnight. She is unable to fall back asleep after waking up to urinate.- stat oxybutynin for possible OAB, hoping to help with insomnia- if pt experience s negative side effects she will let Naya know Synovial cyst 223411467 M71.30 Pt has a 2x3 cm oval soft mass on dorsal/lat eral/radia l surface of right forearm, approximat luis e 2 inches proximal to wrist joint. She reports mild pain and states the mass has grown over the past 6 months.- US of mass to identify [id number] VERONICA REMY (Adult Med) [address] [place] [address] 05/23/2021 14:28:08 05/29/2021 12:40:29 Type 2 diabetes mellitus 20813795 E11.9 Last A1C: 8.2 today (05/23/2021 ), 7.8 (02/20/21) 7.4( 021), 8.2 ( 0) 7.5 (05/22/20), 6.5 (09/15/2019) Fasting BG range: Not checking at home regularly, but has suppliesCu rrent Therapy: Metformin 1000 mg BID and Farxiga 10 mgStatin: Atorvastat in 40 mg QDACE/ARB: Lisinopril 20 mg QDFoot Exam: Normal monofilame nt test last visit (11/20/2020 )Eye Exam: Had an eye exam completed 12/2020Micr oalbumin: 19Pneumova x 23: PVC 13 02/2016 (prior PCP), PPV23 administer ed 05/22/2020 Patient was counseled on low carbohydra te diet to better manage diabetes. We discussed patient's diet at length, and I made specific dietary recommenda tions, removal of sweet tea from diet. I also encouraged regular exercise of 30-60 minutes most days of the week. Patient was encouraged to get yearly diabetic eye exams as well. - Continue Metformin 1000 mg BID and Farxiga 10 mg QD- will restart Victoza since worked well for patient in the past and [employer] has on 340b program- Advised her to monitor and log fasting BS and after dinner in the evening- Continue with healthy eating and exercise - limit sweet tea to once per week- Follow-up in 3 months for recheck of A1C Hypertensive disorder 38 921147 I10 BP Today: 122/80Pati ent stopped HCTZ due to facial flushing- Continue with metoprolol 50 mg, lisinopril 20 mg, and isosorbide mononitrat e 30 mg- Advised her to regularly check BP at home Overactive urinary bladder 485574337 N32.81 Notes she has seen an improvemen t in her urinary frequency and nocturia with the oxybutynin . She is tolerating the medication well and has no complaints . She is now getting up twice a night instead of 4x/night. Notes the melatonin is also working well, she is sleeping much better now.- increase oxybutynin from QD to BID for possible OAB, hoping to help with insomnia- if pt experience s negative side effects she will let Naya know Bilateral tinnitus 35830 39155 102 H93.13 Complainin g of constant worsening tinnitus bilaterall y, has been going on for many yearsHisto ry of chronic ear infections as a child, admits to right sided ear pain todayDenie s family history of early hearing loss, denies being around loud noises as a childOn PE: EACs erythemato us bilaterall y, R TM erythemato us- will start on augmentin for OM of the R ear- discussed audiology referral for hearing test, patient wants to wait on this for now Edema of l ower extremity [id number] R60.0 Notes she is still having constant lower extremity swelling, she took her socks off around 1 pm and 1 hour later while in the office, she still has a sock line.She elevates her legs while sitting at work during the day.She has had a cardiac work-up completed recently.W as taking HCTZ in the past but it caused facial flushing so she stopped the medication . Interested in a different kind of water pill to help remove the fluid.- discussed different options with patient including starting lasix for the swelling but that might cause her urinary frequency to get worse. Agreed to try this medication PRN for days where her swelling is severe and causing her pain.- encouraged her to talk to cardiology at her next visit to ensure they are okay with medication , f/u with me as needed if she is having any issues- will plan to monitor K+ more often Irritable bowel syndrome [id number] K58.9 History of IBS that is well-contr olled on Linzess 290 mcg QD- Continue with Linzess 290 mcg QD, will send to [facility] to reduce sears Renewal of prescription [id number] Z76.0 Needs refills on these medication s Morbid obesity 475724358 E66.01 BMI 47.1- Advised decreased portion sizes, good food choices, limited eating out or fast food and eliminate soda and juice from diet. Advised physical activity daily and offered encouragem ent to continue with positive changes made so far. [id number] ORLY Hernadez (Adult Med) [address] [place] [phone] 08/06/2021 12:17:15 08/06/2021 14:10:13 Sore throat [id number] J02.9 patient came in to the office, not feeling well and been having a sore throat as well as [id number] VERONICA REMY (Adult Med) [address] [place] [phone] 2021 14:40:06 09/12/2021 13:57:58 Type 2 diabetes mellitus [id number] E11.9 Last A1C: 8.2 (05/23/2021 ), 7.8 (02/20/21) 7.4( 021), 8.2 ( 0) 7.5 (05/22/20), 6.5 (09/15/2019) . Unable to check today due to low suppliesFa sting BG range: 80-150Curr ent Therapy: Metformin 1000 mg BID, Farxiga 10 mg, and VictozaSta tin: Atorvastat in 40 mg QDACE/ARB: Lisinopril 20 mg QDFoot Exam: Normal monofilame nt test last visit (11/20/2020 )Eye Exam: Had an eye exam completed 12/2020Micr oalbumin: 19Pneumova x 23: PVC 13 02/2016 (prior PCP), PPV23 administer ed 05/22/2020 Patient was counseled on low carbohydra te diet to better manage diabetes. We discussed patient's diet at length, and I made specific dietary recommenda tions, removal of sweet tea from diet. I also encouraged regular exercise of 30-60 minutes most days of the week. Patient was encouraged to get yearly diabetic eye exams as well. She has changed her lifestyle habits over the last 3 months and has lost 30 pounds, only drinking water and decreased her portion size. Admits to increased yeast infections after starting the Victoza. - Continue with medication s- keep up the awesome work with lifestyle changes and weight loss- Advised her to monitor and log fasting BS and after dinner in the evening- Continue with healthy eating and exercise- Follow-up in 3 months Edema of ping xavier extremity [id number] R60.0 Has seen an improvemen t in her LE swelling with the lasix when she takes it, she talked to cardio and asked if she could take daily, they were okay with daily dosing.Was taking HCTZ in the past but it caused facial flushing so she stopped the medication . Interested in a different kind of water pill to help remove the fluid.- start taking dialy- will plan to monitor K+ more often Morbid obesity 444672103 E66.01 She has changed her lifestyle habits over the last 3 months and has lost 30 pounds, only drinking water and decreased her portion size.- Advised decreased portion sizes, good food choices, limited eating out or fast food and eliminate soda and juice from diet. Advised physical activity daily and offered encouragem ent to continue with positive changes made so far. Hypothyroidism 90608663 E03.9 Labs on 09/15/2019 euthyroidi sm on current medication States she has taken levothyrox ine 88 mcg for many years at same dose, needs refills- Continue with levothyrox ine 88 mcg Candidiasis of vagina 72 150095 B37.3 Now taking Victoza, admits to increased yeast infections after starting the Victoza.- medication sent to pharmacy with refills [id number] VERONICA REMY (Adult Med) [address] [place] [phone] 12/26/2021 14:12:04 12/26/2021 15:23:27 Type 2 diabetes mellitus [id number] E11.9 Last A1C: 6.1 (12/26/2021 ), 6.1 (2021) , 8.2 (05/23/2021 ), 7.8 (02/20/21) 7.4( 021)Fastin g BG range: 80-150Curr ent Therapy: Metformin 1000 mg BID, Farxiga 10 mg, and VictozaSta tin: Atorvastat in 40 mg QDACE/ARB: Lisinopril 20 mg QDFoot Exam: Normal monofilame nt test today (12/26/2021 )Eye Exam: Had an eye exam completed 12/2021Micr oalbumin: 19Pneumova x 23: PVC 13 02/2016 (prior PCP), PPV23 administer ed 05/22/2020 Patient was counseled on low carbohydra te diet to better manage diabetes. We discussed patient's diet at length, and I made specific dietary recommenda tions, removal of sweet tea from diet. I also encouraged regular exercise of 30-60 minutes most days of the week. Patient was encouraged to get yearly diabetic eye exams as well. She has changed her lifestyle habits over the last 6 months and has lost 30 pounds, only drinking water and decreased her portion size. Admits to increased yeast infections after starting the Victoza. - Continue with medication s- keep up the awesome work with lifestyle changes and weight loss- Continue to monitor and log fasting BS and after dinner in the evening- Continue with healthy eating and exercise- Follow-up in 3 months Edema of ping xavier extremity [id number] R60.0 Has seen an improvemen t in her LE swelling with the lasix when she takes it, she talked to cardio and asked if she could take daily, they were okay with daily dosing.Was taking HCTZ in the past but it caused facial flushing so she stopped the medication .- continue furosemide every other day- will plan to monitor K+ more often Morbid obesity 530253227 E66.01 She has changed her lifestyle habits over the last 3 months and has lost 30 pounds, only drinking water and decreased her portion size.- Advised decreased portion sizes, good food choices, limited eating out or fast food and eliminate soda and juice from diet. Advised physical activity daily and offered encouragem ent to continue with positive changes made so far. Hypothyroidism 95996642 E03.9 Labs on 09/15/2019 euthyroidi sm on current medication States she has taken levothyrox ine 88 mcg for many years at same dose, needs refills- Continue with levothyrox ine 88 mcg Overactive urinary bladder 743389978 N32.81 Notes she has seen an improvemen t in her urinary frequency and nocturia with the oxybutynin . She is tolerating the medication well and has no complaints . She is now getting up twice a night instead of 4x/night. Notes the melatonin is also working well, she is sleeping much better now.- c/w oxybutynin BID for possible OAB, new sending to [facility] since cheaper Otitis externa [id number] H 60.93 Complainin g of pruritis to bilateral earsOn PE: bilateral EACs slightly erythemato us- use ear drops as needed- c/w allergy medication - use cotton balls in the shower to prevent water in the canals [id number] VERONICA REMY (Adult Med) [address] [place] [phone] 03/26/2022 14:47:49 03/27/2022 12:16:28 Type 2 diabetes mellitus 76237797 E11.9 Last A1C: 6.4 today (03/26/2022 ), 6.1 (12/26/2021 ), 6.1 (1-5-2021) , 8.2 (05/23/2021 ), 7.8 (02/20/21) 7.4( 021)Fastin g BG range: 80-150Curr ent Therapy: Metformin 1000 mg BID, Jardiance and VictozaSta tin: Atorvastat in 40 mg QDACE/ARB: Lisinopril 20 mg QDFoot Exam: Normal monofilame nt test (12/26/2021 )Eye Exam: Had an eye exam completed 12/2021Micr oalbumin: 19Pneumova x 23: PVC 13 02/2016 (prior PCP), PPV23 administer ed 05/22/2020 Patient was counseled on low carbohydra te diet to better manage diabetes. We discussed patient's diet at length, and I made specific dietary recommenda tions, removal of sweet tea from diet. I also encouraged regular exercise of 30-60 minutes most days of the week. Patient was encouraged to get yearly diabetic eye exams as well. She has changed her lifestyle habits over the last 6 months and has lost 30 pounds, only drinking water and decreased her portion size. Admits to increased yeast infections after starting the Victoza. Has been eating more watermelon at home the last month since cheap to buy and groceries are so expensive right now. - Continue with medication s, Jardiance sent to [facility] since cheaper- eat watermelon in moderation , very high amount of sugar in this type of fruit- keep up the awesome work with lifestyle changes and weight loss- Continue to monitor and log fasting BS and after dinner in the evening- Continue with healthy eating and exercise- Follow-up in 6 months if things continue to go well Morbid obesity 553735252 E66.01 She has changed her lifestyle habits over the last 3 months and has lost 30 pounds, only drinking water and decreased her portion size.- Advised decreased portion sizes, good food choices, limited eating out or fast food and eliminate soda and juice from diet. Advised physical activity daily and offered encouragem ent to continue with positive changes made so far. Renewal of prescription [id number] Z76.0 Needs refills on these medication s Osteoarthr itis of joint of bilateral hands [id number] 33137 M19.041 Requesting to change Meloxicam to another type of NSAID, does not feel like it is helping like it used to. Hands are both sore, mostly at night when trying to sleep. Uses tramadol PRN for severe pain. Overactive urinary bladder 649091749 N32.81 Notes she has seen an improvemen t in her urinary frequency and nocturia with the oxybutynin . She is tolerating the medication well and has no complaints . She is now getting up twice a night instead of 4x/night. Notes the melatonin is also working well, she is sleeping much better now.- c/w oxybutynin BID for possible OAB, new sending to [facility] since cheaper [id number] VERONICA REMY (Adult Med) [facility] [place] [address] 09/25/2022 14:45:09 09/30/2022 10:00:30 Type 2 diabetes mellitus [id number] E11.9 Last A1C: 6.4 today (09/25/2022 ), 6.4 (03/26/2022 ), 6.1 (12/26/2021 ), 6.1 (2021) , 8.2 (05/23/2021 ), 7.8 (02/20/21) 7.4( 021)Fastin g BG range: 80-150Curr ent Therapy: Metformin 1000 mg BID, Invokana and Victoza 1.8 mg dailyStati n: Atorvastat in 40 mg QDACE/ARB: Lisinopril 20 mg QDFoot Exam: Normal monofilame nt test (12/26/2021 )Eye Exam: Had an eye exam completed 12/2021Micr oalbumin: 19Pneumova x 23: PVC 13 02/2016 (prior PCP), PPV23 administer ed 05/22/2020 Patient was counseled on low carbohydra te diet to better manage diabetes. We discussed patient's diet at length, and I made specific dietary recommenda tions, removal of sweet tea from diet. I also encouraged regular exercise of 30-60 minutes most days of the week. Patient was encouraged to get yearly diabetic eye exams as well. She has changed her lifestyle habits over the last 6 months and has lost 30 pounds, only drinking water and decreased her portion size. Admits to increased yeast infections after starting the Victoza. Has been eating more watermelon at home the last month since cheap to buy and groceries are so expensive right now. - Continue with medication s, patient interested in weekly injection instead of daily. Ozempic is hard to get at this time due to it being low in stock. Will chat about switching to Rybelsus.- eat watermelon in moderation , very high amount of sugar in this type of fruit- keep up the awesome work with lifestyle changes and weight loss- Continue to monitor and log fasting BS and after dinner in the evening- Continue with healthy eating and exercise- Follow-up in 6 months if things continue to go well Morbid obesity 723751403 E66.01 She has changed her lifestyle habits over the last 3 months and has lost 30 pounds, only drinking water and decreased her portion size.- Advised decreased portion sizes, good food choices, limited eating out or fast food and eliminate soda and juice from diet. Advised physical activity daily and offered encouragem ent to continue with positive changes made so far. Osteoarthr itis of joint of bilateral hands [id number] 11475 M19.041 Celebrex as needed for joint pain. Hands are both sore, mostly at night when trying to sleep. Uses tramadol PRN for severe pain.- c/w medication s Overactive urinary bladder 356745447 N32.81 Notes she has seen an improvemen t in her urinary frequency and nocturia with the oxybutynin . She is tolerating the medication well and has no complaints . She is now getting up twice a night instead of 4x/night. Notes the melatonin is also working well, she is sleeping much better now.- c/w oxybutynin BID for possible OAB, new sending to [facility] since cheaper Hypertensive disorder 38 307248 I10 BP Today: 122/78Pati ent stopped HCTZ due to facial flushing- Continue with metoprolol 50 mg, lisinopril 20 mg, and isosorbide mononitrat e 30 mg- Advised her to regularly check BP at home Irritable bowel syndrome 20466139 K58.9 History of IBS that is well-contr olled on Linzess 290 mcg QD- Continue with Linzess 290 mcg QD, will send to [facility] to reduce sears Edema of l ower extremity 962363996 R60.0 Has seen an improvemen t in her LE swelling with the lasix when she takes it, she talked to cardio and asked if she could take daily, they were okay with daily dosing.Was taking HCTZ in the past but it caused facial flushing so she stopped the medication .- continue furosemide every other day- will plan to monitor K+ more often Hypothyroidism 72229814 E03.9 Labs on 09/15/2019 euthyroidi sm on current medication States she has taken levothyrox ine 88 mcg for many years at same dose, needs refills- Continue with levothyrox ine 88 mcg Insomnia 712898107 G47.[address] recommende d discontinu ing hydroxyzin e to due possible QTc prolongati on She continues to complain of difficulty sleeping and is not currently on medication s Requesting refill, melatonin 10 mg works well - will send refills Gastroesop hageal reflux disease without esophagitis [id number] K21.9 Well controlled with PPI- c/w supportive care Screening mammography 24 257229 Z12.31 - Provided patient with mammogram order, she understand s she needs to call and schedule appointmen t [id number] VERONICA REMY [facility] (Adult Med) [address] [place] [address] 03/06/2023 14:48:37 03/09/2023 13:34:26 Type 2 diabetes mellitus 21675708 E11.9 Last A1C: 6.3 today (03/06/2023 ), 6.4 (09/25/2022 ), 6.4 (03/26/2022 ), 6.1 (12/26/2021 ), 6.1 (2021) , 8.2 (05/23/2021 ), 7.8 (02/20/21) 7.4( 021)Fastin g BG range: 80-150Curr ent Therapy: Metformin 1000 mg BID, Invokana and Rybselsus 7 mg dailyStati n: Atorvastat in 40 mg QDACE/ARB: Lisinopril 20 mg QDFoot Exam: Normal monofilame nt test (12/26/2021 )Eye Exam: Had an eye exam completed 12/2021Micr oalbumin: 19Pneumova x 23: PVC 13 02/2016 (prior PCP), PPV23 administer ed 05/22/2020 Patient was counseled on low carbohydra te diet to better manage diabetes. We discussed patient's diet at length, and I made specific dietary recommenda tions, removal of sweet tea from diet. I also encouraged regular exercise of 30-60 minutes most days of the week. Patient was encouraged to get yearly diabetic eye exams as well. She has changed her lifestyle habits over the last 6 months and has lost 30 pounds, only drinking water and decreased her portion size. Admits to increased yeast infections after starting the Victoza. Has been eating more watermelon at home the last month since cheap to buy and groceries are so expensive right now. - Continue with medication s, increase Rybelsus to 14 mg to help with continued weight loss and HgbA1c improvemen ts- keep up the awesome work with lifestyle changes and weight loss- Continue to monitor and log fasting BS and after dinner in the evening- Continue with healthy eating and exercise- Follow-up in 6 months if things continue to go well Hypertensive disorder 38 662259 I10 BP Today: 126/80Pati ent stopped HCTZ due to facial flushing- Continue with metoprolol 50 mg, lisinopril 20 mg, and isosorbide mononitrat e 30 mg- Advised her to regularly check BP at home Irritable bowel syndrome 77668258 K58.9 History of IBS that is well-contr olled on Linzess 290 mcg QD- Continue with Linzess 290 mcg QD, will send to [facility] to reduce sears Osteoarthr itis of joint of bilateral hands [id number] 21497 M19.041 Celebrex as needed for joint pain. Hands are both sore, mostly at night when trying to sleep. Uses tramadol PRN for severe pain.- c/w medication s Overactive urinary bladder 208865855 N32.81 Notes she has seen an improvemen t in her urinary frequency and nocturia with the oxybutynin . She is tolerating the medication well and has no complaints . She is now getting up twice a night instead of 4x/night. Notes the melatonin is also working well, she is sleeping much better now.- c/w oxybutynin BID for possible OAB, new sending to [facility] since cheaper Edema of l ower extremity 273031629 R60.0 Has seen an improvemen t in her LE swelling with the lasix when she takes it, she talked to cardio and asked if she could take daily, they were okay with daily dosing.Was taking HCTZ in the past but it caused facial flushing so she stopped the medication .- continue furosemide every other day- will plan to monitor K+ more often Hypothyroidism 17878607 E03.9 Labs on 09/2022 showed euthyroidi sm on current medication States she has taken levothyrox ine 88 mcg for many years at same dose, needs refills- Continue with levothyrox ine 88 mcg Gastroesop hageal reflux disease without esophagitis 320172768 K21.9 Well controlled with PPI- c/w supportive care Insomnia 502454783 G47.[address] recommende d discontinu ing hydroxyzin e due to possible QTc prolongati on She continues to complain of difficulty sleeping and is not currently on medication s Requesting refill, melatonin 10 mg works well - will send refills Morbid obesity 693514351 E66.01 She has changed her lifestyle habits over the last 6 months and has lost 30 pounds, only drinking water and decreased her portion size.- Advised decreased portion sizes, good food choices, limited eating out or fast food and eliminate soda and juice from diet. Advised physical activity daily and offered encouragem ent to continue with positive changes made so far. Depression screening 171 732058 Z13.31 PHQ 2/9 was negative in office today (0 out of 27) [id number] VERONICA REMY (Adult Med) [address] [place] [phone] 04/28/2023 10:12:40 04/29/2023 14:22:46 Gynecologic examination 50754313 Z01.419 Post-menop ausal female here for WWE. Last pap smear 2013. Hx of tubal ligation and endometria l ablation.- pap smear completed today-f/u with results Menopause present 713837 006 N95.1 LMP 04/07/2006, denies symptoms of menopause today- due for DEXA scan at 64- c/w multi-junior mins and exercise to preserve bone strength Candidiasis of vagina 72 310137 B37.31 Pt on Invokana. Has had recurrent yeast infections , one in December 2022 and another 4-5 days ago which she treated with fluconazol e, sx resolved.- Overall normal on exam today Morbid obesity 145822144 E66.01 BMI 41.6.Pt's weight stable around 235lb for the past year, decreased from 266lb after lifestyle and diet modificati ons were made, though no change in weight since her recent follow up visit- Advised decreased portion sizes, good food choices, limited eating out or fast food and eliminate soda and juice from diet. Advised physical activity daily and offered encouragem ent to continue with positive changes made so far. Hypertensive disorder 38 759351 I10 BP Today: 142/88, admits to not taking medication this morning. BP was 126/80 at last visit 2 mo ago.Previo usly on HCTZ, stopped due to facial flushing- Continue with metoprolol 50 mg, lisinopril 20 mg, and isosorbide mononitrat e 30 mg, may consider med adjustment s if BP regularly > 140/90 at home- Give BP cuff today, advised her to regularly check BP at home-Advis ed on low sodium diet, adequate exercise Screening for malignant neoplasm of breast 871098684 Z12.39 Last mammogram was 01/02/23, normalNo prior history of abnormal mammograms Patient declined CBE- c/w annual mammograms Cystocele 094240446 N81. 10 Grade 1 cystocele noted on exam today, patient asymptomat ic- will continue to monitor [id number] YOLETTE RIOS (Adult Med) [address] [place] [address] 08/25/2023 16:28:59 08/26/2023 16:35:51 Type 2 diabetes mellitus 13280144 E11.9 Last A1C: 6.6 today (08/25/23) 6.3 (03/06/2023 ), 6.4 (09/25/2022 ), 6.4 (03/26/2022 ), 6.1 (12/26/2021 ), 6.1 (2021) , 8.2 (05/23/2021 ), 7.8 (02/20/21) 7.4( 021) Current Therapy: Metformin 1000 mg BID, Invokana and Victoza 1.8mg subq QD Statin: Atorvastat in 40 mg QD ELIZABETH/ARB: Lisinopril 20 mg QD Foot Exam: Normal monofilame nt test (08/25/23) Eye Exam: Had an eye exam completed, will call and get consult notes Pneumovax 23: PVC 13 02/2016 (prior PCP), PPV23 administer ed 05/22/2020 Patient was counseled on low carbohydra te diet to better manage diabetes. Patient has been drinking a lot of water. - keep up with lifestyle changes and weight loss - Continue to monitor and log fasting BS and after dinner in the evening - Continue with healthy eating and exercise - Follow-up in 3 months Hypertensive disorder 38 720752 I10 Uncontroll ed Hypertensi on potential risks, heart [...] of 40 minutesNex t Visit: {{1 2 3* 4 5 6 7 8 9 10 11 12} }{{week(s) month(s)* }} Depression screening 171 979819 Z13.31 PHQ9- negative [facility] screening 044930865 Z13.39 GAD7- negative Body mass index 40+ - severely obese 030604840 Z68.41 BMI 41.9Discus sed increasing physical activityWi ll give handout on PA to do at work while sitting at desk Coronary atherosclerosis 077486495 I25.84 Osteoarthr itis of joint of bilateral hands 6122871164 41643 M19.041 M19.042 Gastroesop hageal reflux disease without esophagitis 302763081 K21.9 Irritable bowel syndrome 37349677 K58.9 Hypothyroidism 37165713 E03.9 Pain of ri ght shoulder joint 5637030819 6983183 M25.511 Pt can use hot/cold compresses to help with painContin ue tramadol as neededWill send for XR, patient wants to wait until new year for deductible reasonsWil l send to PT if needed after XR Overactive urinary bladder 295643804 N32.81 [id number] YOLETTE RIOS (Adult Med) [address] [place] [phone] 11/02/2023 12:20:07 11/03/2023 13:31:07 Viral upper respiratory tract infection 495627268 J06.9 Gargle with warm salt water once an hour to help reduce swelling and relieve discomfort . Use 1 teaspoon of salt mixed in 1 cup of warm water. Take an over-the-c ounter pain medicine, such as acetaminop hen (Tylenol), ibuprofen (Advil, Motrin), or naproxen (Aleve). Read and follow all instructio ns on the label. Be careful when taking over-the-c ounter cold or flu medicines and Tylenol at the same time. Many of these medicines have acetaminop hen, which is Tylenol. Read the labels to make sure that you are not taking more than the recommende d dose. Too much acetaminop hen (Tylenol) can be harmful. Drink plenty of fluids. Fluids may help soothe an irritated throat. Hot fluids, such as tea or soup, may help decrease throat pain. Use over-the-c ounter throat lozenges to soothe pain. Regular cough drops or hard candy may also help. These should not be given to young children because of the risk of choking. Do not smoke or allow others to smoke around you. If you need help quitting, talk to your doctor about stop-smoki ng programs and medicines. These can increase your chances of quitting for good. Use a vaporizer or humidifier to add moisture to your bedroom. Follow the directions for cleaning the machine. Body mass index 40+ - severely obese 184735523 Z68.41 BMI 42.5Discus sed increasing physical activity [id number] [facility] [address] [place] [address] 11/24/2023 14:47:45 11/24/2023 18:52:40 Type 2 diabetes mellitus 79820137 E11.9 Last A1C: 7.2 today (11/24/23) 6.6 (08/25/23) 6.3 (03/06/2023 ), 6.4 (09/25/2022 ), 6.4 (03/26/2022 ), 6.1 (12/26/2021 ), 6.1 (2021) , 8.2 (05/23/2021 ), 7.8 (02/20/21) 7.4( 021) Current Therapy: Metformin 1000 mg BID, Invokana and Victoza 1.8mg subq QD Statin: Atorvastat in 40 mg QD ELIZABETH/ARB: Lisinopril 20 mg QD Foot Exam: Normal monofilame nt test (08/25/23) Eye Exam: Had an eye exam completed, will call and get consult notes Pneumovax 23: PVC 13 02/2016 (prior PCP), [...] eating and exercise -C/W Metformin 1000 mg BID, Invokana and Victoza 1.8mg subq QD - Follow-up in 6 months Hypertensive disorder 38 809834 I10 BP today: 126/82 Uncontroll ed Hypertensi on potential risks, heart [...] 11 12} }{{week(s) month(s)* }} Coronary atherosclerosis [id number] I25.84 Osteoarthr itis of joint of bilateral hands [id number] 98136 M19.041 M19.042 Patient to call if needing refills on tramadol Gastroesop hageal reflux disease without esophagitis [id number] K21.9 Irritable bowel syndrome 89893241 K58.9 Hypothyroidism 09572337 E03.9 Pain of ri ght shoulder joint [id number] 9471080 M25.511 Pt can use hot/cold compresses to help with painContin ue tramadol as needed Body mass index 40+ - severely obese 631278483 Z68.41 BMI 42.8Discus sed increasing physical activityWi ll give handout on PA to do at work while sitting at desk Overactive urinary bladder 041600524 N32.81 Depression screening 171 519345 Z13.31 PHQ9- {{Negative Positive Mild* Mode rate Sever e}} (5 out of 27) Patient states she has been feeling more depressed recently d/t issues at home.Would like refills on depression medication that she used to be on as that helped her. Mental [facility] screening 507728045 Z13.39 GAD7- {{Negative * Positive Mild Mode rate Sever e}} (1 out of 21) [id number] YOLETTE RIOS (Adult Med) [address] [place] [address] 05/17/2024 14:38:37 05/18/2024 11:33:14 Type 2 diabetes mellitus 20968689 E11.9 Last A1C: 7.1 (05/14/24) 7.2 (11/24/23) 6.6 (08/25/23) 6.3 (03/06/2023 ), 6.4 (09/25/2022 ), 6.4 (03/26/2022 ), 6.1 (12/26/2021 ), 6.1 (2021) , 8.2 (05/23/2021 ), 7.8 (02/20/21) 7.4( 021) Current Therapy: Metformin 1000 mg BID, and Trulicity 1.5mg weekly Statin: Atorvastat in 40 mg QD ELIZABETH/ARB: Lisinopril 20 mg QD Foot Exam: Normal monofilame nt test (08/25/23) Eye Exam: Has to schedule appointmen t- was sent reminder from ophth office Pneumovax 23: PVC 13 02/2016 (prior PCP), [...] and exercise -C/W Metformin 1000 mg BID -D/C Trulicity -Start Ozempic 0.25mg - Follow-up in 3 months Hypertensive disorder 38 003535 I10 BP today: 134/80 Uncontroll ed Hypertensi on potential risks, heart [...] 11 12} }{{week(s) month(s)* }} Coronary atherosclerosis 373883080 I25.84 C/W ASA 81mg Osteoarthr itis of joint of bilateral hands [id number] 78989 M19.041 M19.042 Tramadol 50mg TID Gastroesop hageal reflux disease without esophagitis 670495757 K21.9 C/W pantoprazo le 40mg QD Irritable bowel syndrome 41687567 K58.9 C/W Linzess 290mcg Overactive urinary bladder 729400651 N32.81 C/W Oxybutynin Hypothyroidism 71004583 E03.9 C/W Levothyrox ine 88mcg Pain of ri ght shoulder joint 4909150133 1728719 M25.511 Pt can use hot/cold compresses to help with painContin ue tramadol as needed Depression screening 171 108101 Z13.31 PHQ9- {{Negative Positive Mild* Mode rate Sever e}} (13 out of 27) Mental [facility] screening 751273792 Z13.39 GAD7- {{Negative Positive Mild Moder ate* Sever e}} (10 out of 21) Fall from ladder 6119661 8 W11.XXXA XR hip and lumbar spine ordered Mass of upper limb 77019 5008 R22.32 5cm Mass on medial aspect of LUE, post fall, painful to touch Depressive disorder 3548 9007 F32.A C/W citalopram 40mg tablet Morbid obesity 973353872 E66.01 BMI 45.7 [id number] YOLETTE RIOS (Adult Med) [address] [place] [phone] 07/19/2024 15:20:02 07/22/2024 11:09:05 Morbid obesity 044214853 E66.01 BMI 44 Pain of le ft hip joint 6010692386 23785 M25.552 Physical therapy referral given todayConti nue with pain medication as needed [id number] YOLETTE RIOS (Adult Med) [address] [place] [phone] 08/16/2024 14:17:34 08/17/2024 11:54:08 Type 2 diabetes mellitus 54886864 E11.9 Last A1C: 6.6 08/16/24, 7.1 (05/14/24) [...] Follow-up in 6 months Hypertensive disorder 38 204512 I10 BP today: 116/74 Uncontroll ed Hypertensi [...] 11 12} }{{week(s) month(s)* }} Coronary atherosclerosis 179600295 I25.84 C/W ASA 81mg Osteoarthr itis of joint of bilateral hands 2365040431 24738 M19.041 M19.042 Tramadol 50mg TIDControl led substance agreement signed today Gastroesop hageal reflux disease without esophagitis 883796589 K21.9 C/W pantoprazo le 40mg QD Irritable bowel syndrome 30028140 K58.9 C/W Linzess 290mcg Overactive urinary bladder 321292363 N32.81 C/W Oxybutynin Hypothyroidism 86336895 E03.9 C/W Levothyrox ine 88mcg Depressive disorder 3548 9007 F32.A C/W citalopram 40mg tablet Morbid obesity 215518064 E66.01 BMI 42.8 Depression screening 171 691671 Z13.31 PHQ9- {{Negative Positive Mild* Mode rate Sever e}} (5 out of 27) [facility] screening 075525432 Z13.39 GAD7- {{Negative * Positive Mild Mode rate Sever e}} (4 out of 21) Health Concerns Section Related Observation LastModified by Organization Detai ls LastModified Time None Recorded Concern Status LastModified by Organization Details LastModified Time None Recorded Advance Directives Directive N: Payers Encounter Date Sequence Insurance Name Policy Number Policy Weston Covered Member ID Weston Member ID Guarantor Name 11/02/2023 1 [facility] [id number] Lucretia Rodriguez [id number] Lucretia Rodriguez 11/24/2023 1 [facility] [id number] Lucretia Rodriguez [id number] Lucretia Rodriguez 05/17/2024 1 [facility] [id number] Lucretia Rodriguez [id number] Lucretia Rodriguez 07/19/[address] [place] [address] [id number] Lucretia Rodriguez [id number] Lucretia Rodriguez 08/16/2024 1 [facility] [id number] Lucretia Rodriguez [id number] Lucretia Rodriguez Notes Date Note Type Note Provider Name and Address Organization Details Recorded Time 4 text/html 58-year-old female in the office c/o cough x 4 days. Patient states that it is a non-productive cough and some body aches. Denies fever, N/V/D. States did wake up with a LAKE today and is having some chest pain and abdominal pain when she coughs. She has not taken any medication for it. SALINAS PENN PA-C Attn: Accounting,[address] [place], [address], [facility] 11/02/2023 13:13:11 4 text/html 58-year-old female here for f/u chronic conditions. Patient states that she has not been doing well with diet. She feels depressed d/t issues with her daughter and then helping out a friend move, and extra stress at work that she has just been eating anything and everything. She is using medication daily. Denies SOB, LAKE, CP at this time. Denies SI/HI. SALINAS PENN PA-C Attn: Accounting,[address], [place], [address], [facility] 11/24/2023 15:46:34 4 text/html 58 y/o F here for f/u chronic conditions. Pt has had some issues with medication for DM. Invokana is very expensive now and she has only been able to get Metformin and Trulicity. She wants to try a Ozempic though to see if it will help her with her DM and help her lose some weight. She has been watching what she eats, for the most part. Has been taking all of her meds as prescribed. Fall from step stool last Thursday of April. LUE bruised, Back and hip, bruise to L eye. Denies LOC. Did not go to ER. She has been taking tramadol once a day but has not had much relief. She has a knot on her LUE that is hard and painful to touch. SALINAS PENN PA-C Attn: Accounting,[address] , [place], [address], [facility] 05/17/2024 15:56:04 4 text/html A 58 y.o F with a history of HTN, T2DM, osteoarthritis, L knee replacement is presenting for L hip pain. Pt states she fell is the beginning of May which resulted in left hip and lumbar spine xrays that were negative. She has had continuing pain which is worse when getting up out of a chair and getting out of the car. She states she works 8 hours a day 5 days a week in a position that requires her to be seated for most of the day, as well as having a 2 hour total commute of driving. She currently takes Tramadol as needed for the pain, but she is worried about forming any kind of addiction to pain medication. She uses a heating pad both at home and at work and it helps a little . The hip pain is getting in the way of dialy activities and interrupting quality of life. Pt denies chest pain, SOB, N/V/D. SALINAS PENN PA-C Attn: Accounting,[address] , [place], [address], [facility] 07/19/2024 17:14:39 4 text/html Diabetes F/UReported bypatient.Review finger sticks:[id number] [...] effects Pt denies CP SOB LAKE NVD SALINAS PENN PA-C Attn: Accounting,[address] , [place], [address], [facility] 08/16/2024 15:43:09 OBGyn Episode Ob Episode Information Episode Created Date Number of Fetuses Patient Bloodtype Patient rh Status Prepregnancy Weight lbs Domestic Partner Domestic Partner Phone Father Name Lead Tank Mechanic Status 09/15/19 20 1 CLOSED Fetus Data First Name Last Name Admitted to NICU Weight (g) Sex Living Outcome Pediatric Complications Fetus ID Race Codes Race Delivery Type F Full Term [id number] Gideon Calculation Initial Gideon Date Initial Exam Date Initial Exam Provider Initial Ultrasound Date Last Menstrual Period Date Ultra Sound Weeks Gestation 0 Eighteen To Twenty Week Gideon Update Ultra Sound Date Fundal Height At Umbil Quickening Date Ultra Sound Latest Weeks Gestation Final Gideon Confirmed By Final Gideon Confirmed Date Final Gideon Date Ultra Sound Latest Days Gestation 0 0 Menstrual History Last Menstrual Date Menses Monthly On Bcp Conception Prior Menses Frequency Hcg Plus Date Menarche Onset Age Delivery Information Delivery Date Delivery Type Labor Anesthesia Weeks Gestation Incision Type Labor Labor Length Hrs Delivered By Post Complications Tubal Sterilization Discharge Date Comments 0 Discharge Information Feeding Method Contraceptive Method Maternal HG B and HCT Levels Ob Episode Information Episode Created Date Number of Fetuses Patient Bloodtype Patient rh Status Prepregnancy Weight lbs Domestic Partner Domestic Partner Phone Father Name Lead Tank Mechanic Status 09/15/19 20 1 CLOSED Fetus Data First Name Last Name Admitted to NICU Weight (g) Sex Living Outcome Pediatric Complications Fetus ID Race Codes Race Delivery Type F Full Term [id number] Gideon Calculation Initial Gideon Date Initial Exam Date Initial Exam Provider Initial Ultrasound Date Last Menstrual Period Date Ultra Sound Weeks Gestation 0 Eighteen To Twenty Week Gideon Update Ultra Sound Date Fundal Height At Umbil Quickening Date Ultra Sound Latest Weeks Gestation Final Gideon Confirmed By Final Gideon Confirmed Date Final Gideon Date Ultra Sound Latest Days Gestation 0 0 Menstrual History Last Menstrual Date Menses Monthly On Bcp Conception Prior Menses Frequency Hcg Plus Date Menarche Onset Age Delivery Information Delivery Date Delivery Type Labor Anesthesia Weeks Gestation Incision Type Labor Labor Length Hrs Delivered By Post Complications Tubal Sterilization Discharge Date Comments 7 Discharge Information Feeding Method Contraceptive Method Maternal HG B and HCT Levels
--- OUTSIDE RECORDS SUMMARY | 2024-09-18 09:29 | XMS_ITS | Referral Summary ---
Author Organization [facility] Address [address] [place] [address] Care Team Providers Care Refining Equipment Operator Name Role Phone Stevenson Almanza MD Unavailable [phone] Dequan Baxter MD Unavailable [phone] Naya Arriola PA-C Primary Care Provider + Source Comments [facility],non-owned Affiliates and Associated Physician Practices is amultiple site organization consisting of ambulatory clinics and hospital sitesin [place], [place], [place] and [place]. This disclosure is being madepursuant to the Care Everywhere program and may not contain all information available regarding this patient. Last updated 18.[facility] Encounters Date Type Department Care Team Description 08/08/2024 Travel from Last 3 Months Allergies Active Allergy Reactions Criticality Noted Date Comments Adhesive Sensitivity Rash Medium 10/08/2016 Latex 02/22/2013 Sulfa Drugs 02/22/2013 Medications * Be aware that medications may not be up to date on this document. Alwaysverify current medications with the patient. Medication Sig Dispensed Refills Start Date End Date Status Cholecalciferol (VITAMIN D) 1000 UNIT capsule Take 5 (five) capsules by mouth once daily Active metFORMIN (GLUCOPHAGE) 500 MG tablet TAKE ONE TABLET BY MOUTH ONCE DAILY 90 Tab 1 05/16/2016 Active Additional Information Patient taking differently: 2 TIMES DAILY WITH MEALS, Reported on 08/25/2023 lisinopril (PRINIVIL; ZESTRIL) 40 MG tablet TAKE ONE TABLET BY MOUTH ONCE DAILY 30 Tab 3 10/27/2016 Active Additional Information Patient taking differently: 40 mg Oral DAILY, Reported on 08/25/2023 metoprolol tartrate (LOPRESSOR) 50 MG tablet TAKE ONE TABLET BY MOUTH TWICE A DAY 180 Tab 1 12/08/2016 Active levothyroxine (SYNTHROID) 88 MCG tablet TAKE ONE TABLET BY MOUTH ONCE DAILY BEFORE BREAKFAST 90 Tab 3 01/27/2017 Active isosorbide mononitrate CR 24hr (IMDUR) 30 MG tablet Take 1 (one) tablet by mouth once daily Active nitroGLYCERIN (NITROSTAT) 0.4 MG tablet Dissolve 1 (one) tablet under the tongue every 5 minutes as needed for Angina Active traMADol (ULTRAM) 50 MG tablet Take 1 (one) tablet by mouth once daily Active ASPIRIN 81 81 MG tablet once daily 02/11/2020 Active atorvastatin (LIPITOR) 40 MG tablet Take 1 (one) tablet by mouth once daily 11/20/2020 Active melatonin 5 MG tablet Take 1 (one) tablet by mouth at bedtime 11/20/2020 Active oxybutynin (Ditropan) 5 MG tablet Take 1 (one) tablet by mouth 3 times daily Active furosemide (Lasix) 20 MG tablet Take 1 (one) tablet by mouth once daily Active loratadine (Claritin) 10 MG tablet Take 1 (one) tablet by mouth once daily Active celecoxib (CeleBREX) 100 MG capsule Take 1 (one) capsule by mouth once daily Active OneTouch Ultra test strip USE TO CHECK BLOOD SUGAR TWICE DAILY 04/20/2022 Active pantoprazole EC (Protonix) 40 MG tablet Take 1 (one) tablet by mouth daily before breakfast 90 tablet 05/07/2022 Active linaCLOtide (Linzess) 290 MCG capsule TAKE ONE CAPSULE BY MOUTH ONCE DAILY ON AN EMPTY STOMACH AT LEAST 30 MINUTES PRIOR TO FIRST MEAL OF THE DAY 90 capsule 3 05/07/2022 Active canagliflozin (Invokana) 100 MG tablet Take 1 (one) tablet by mouth daily before breakfast Active Rybelsus 14 MG tablet Take 1 (one) tablet by mouth once daily 03/09/2023 Active amitriptyline (Elavil) 100 MG tablet TAKE 1 TABLET BY MOUTH EVERYDAY AT BEDTIME 30 tablet 11 10/06/2023 Active ondansetron (Zofran) 8 MG tablet Take 1 (one) tablet by mouth every 8 hours as needed for nausea and vomiting. 60 tablet 1 08/18/2024 Active Active Problems Problem Noted Date Diagnosed Date Gastroparesis 12/14/2020 Seborrheic keratoses 01/20/2019 Lentigines 01/20/2019 Multiple benign nevi of uppe r and lower extremities, and trunk 01/20/2019 History of squamous cell carcinoma of skin 01/20 Family history of melanoma 01/20/2019 Gastroesophageal reflux disease without esophagi tis 12/03/2018 BOONE (nonalcoholic steatohepatitis) 11/20/2017 Abdominal pain, RUQ (right upper quadrant) 06/18 LISSETTE on CPAP 05/27/2016 Type 2 diabetes mellitus without complication Hypothyroidism, adult 11/23/2015 Morbid obesity due to excess calories 11/23/2015 Vitamin D deficiency 07/31/2015 Major depressive disorder, recurrent episode, mo derate 06/27/2015 Hyperplastic colonic polyp 01/23/2015 MS (multiple sclerosis) 07/25/2014 Hot flashes, menopausal 12/21/2013 HTN (hypertension) 05/02/2013 Mixed hyperlipidemia 05/02/2013 Resolved Problems Problem Noted Date Diagnosed Date Resolved Date Constipation 11/20/2017 12/18/2017 Fatty liver 06/09/2016 08/25/2023 Acquired hypothyroidism 07/31/201507/09 Major depression 01/23/2015 06/27/2015 Acute liver disease 08/07/2013 07/31/20 15 Abdominal pain 08/07/2013 07/31/2015 Overview (01/29/2015): Hypothyroidism 06/29/2013 11/23/2015 Depressive disorder, not elsewhere classified 05/02/20 13 01/23/2015 Prediabetes 05/02/2013 02/26/2016 Immunizations Name Administration Dates Next Due INFLUENZA VACCINE, TRIV. (AF LURIA, FLUZONE TRIVALENT; 6MO+) (IIV3) 07/25/2014 Covid [employer] primary monoval ent 12+ yr 0.3mL Purple cap 12/22/2020,12/01/2020 INFLUENZA VACCINE 06/07/2018,06/15/2013 INFLUENZA VACCINE, CELL CULT URE, QUADR. (FLUCELVAX QUADRIVALENT; 6MO+), 0.5 ML (CCIIV4) 06/08/2019 INFLUENZA VACCINE, QUADR. (F LUZONE; FLULAVAL; FLUARIX; AFLURIA QUADRIVALENT; 6MO+), 0.5 ML (IIV4) 06/27/2015 Pneumococcal Pcv13 Conj 02/26/2016 Social History Tobacco Use Types Packs/Day Years Used Date Smoking Tobacco: Former Cigarettes 0.5 30 Smokeless Tobacco: Never Tobacco Cessation:Counseling Given: Not Answered Alcohol Use Standard Drinks/Week Comments No 0 (1 standard drink = 0.6 oz pur e alcohol) Rarely Sex and Gender Information Value Date Recorded Sex Assigned at Female 12/01/2020 7:48 AM CDT Gender Identity Female 12/01/2020 7:48 AM CDT Sexual Orientation Straight 12/01/2020 7: 48 AM CDT Last Filed Vital Signs Vital Sign Reading Time Taken Comments Blood Pressure 102/69 08/25/2023 11:30 AM CONCRETE POURING SUPERVISOR Pulse 92 08/25/2023 11:30 AM CONCRETE POURING SUPERVISOR Temperature 36.6 ??C (97.9 ??F) 06/18/2020 1:22 PM CD T Respiratory Rate 14 04/28/2023 1:00 PM CDT Oxygen Saturation 94% 08/25/2023 11:30 AM CONCRETE POURING SUPERVISOR Inhaled Oxygen Concentration - - Weight 107 kg (236 lb) 08/25/2023 11:30 AM CONCRETE POURING SUPERVISOR Height 160 cm (5' 3 ) 04/28/2023 1:00 PM CDT Body Mass Index 41.81 04/28/2023 1:00 PM CDT Functional Status Functional Status Response Date of Assess ment Is person deaf or have serious hearing difficult y? No 10/23/2014 Is person blind or have serious difficulty seein g? No 10/23/2014 Does person have serious dif ficulty walking/climbing stairs? No 10/23/2014 Does person have difficulty dressing/bathing? No 10/23/2014 Does person have difficulty doing errands alone? No 10/23/2014 Cognitive Status Response Date of Assessm ent Does person have difficulty concentrating/remembering/making decisions? No 10/23/2014 Plan of Treatment Upcoming Encounters Date Type Department Care Team (Late st Contact Info) Description 09/27/2024 2:20 PM CONCRETE POURING SUPERVISOR Office Visit [place] [phone] [address] [place] [address] [place] [address] 09/28/2024 1:00 PM CONCRETE POURING SUPERVISOR Office Visit [facility] - [address] [place] [address] [place] [address] [address] [facility] [address] [place] [address] Goals Goal Patient Goal Type Associated Problems Recent Progress Patient-Stated? Author Blood Pressure < 140/90 Blood Pressure 102/69(2022 11:30 AM CONCRETE POURING SUPERVISOR) No Melinda Newsome Quit smoking / using tobacco Lifestyle No Melinda Newsome Procedures Procedure Name Priority Date/Time Associated Diagnosis Comments COMPREHENSIVE METABOLIC PANEL Routine 05/07/2022 2:40 PM CDT Elevated LFTs ENDOSCOPY, COLON, SCREENING Routine 06/18/2020 12:49 PM CDT MAMMO BILAT SCREENING Routine 12/21/2018 2:08 PM CDT Screening for breast cancer HEPATITIS C AB W/RFLX TO HCV RNA QN PCR Routine 06/10/2017 7:27 AM CDT HM DIABETES EYE EXAM Routine 10/18/2016 HEMOGLOBIN A1C Routine 05/27/2016 2:17 PM CDT Type 2 diabetes mellitus without complication, without long-term current use of insulin (HCC) PAP IG LB CT+GC+HPV HR Routine 6 3:09 PM CONCRETE POURING SUPERVISOR Screening for cervical cancer from Last 3 Months or Most Recently Relevant to Health Maintenance Results * (ABNORMAL) COMPREHENSIVE METABOLIC PANEL (05/07/2022 2:40 PM CDT) Glucose 90 70 - 105 mg/dL [facility] ACCOUNT BILL BUN 10 9.8 - 20.1 mg/dL [facility] ACCOUNT BILL Creatinine 0.88 0.57 - 1.11 mg/dL [facility] ACCOUNT BILL eGFR by CKD-EPI 77(L) >=90 mL/min/1.7 3 m2 [facility] ACCOUNT BILL Sodium 142 136 - 145 mmol/L [facility] ACCOUNT BILL Potassium 4.6 3.5 - 5.1 mmol/L [facility] ACCOUNT BILL Chloride 103 98 - 107 mmol/L [facility] ACCOUNT BILL CO2 27 23 - 31 mmol/L [facility] ACCOUNT BILL Calcium 9.8 8.4 - 10.4 mg/dL [facility] ACCOUNT BILL Protein Total 7.3 6.4 - 8.3 gm/dL [facility] ACCOUNT BILL Albumin 4.4 3.5 - 5.2 gm/dL [facility] ACCOUNT BILL Bilirubin Total 0.6 0.2 - 1.2 mg/dL [facility] ACCOUNT BILL Alkaline Phosphatase 78 40 - 150 U/L [facility] ACCOUNT BILL AST 31 5 - 34 U/L [facility] ACCOUNT BILL ALT 25 0 - 61 U/L [facility] ACCOUNT BILL Blood BLOOD SPECIMEN / Unknown 05/07/2022 2:40 PM CDT 05/07/2022 Narrative Resulting Agency Comment Lab Testing performed at: [address] ?? [facility] [id number] Taylor Donohue [employer] LAB - CHEMISTRY ORDERABLES [facility] ACCOUNT BILL [address] [place] [address] * ENDOSCOPY, COLON, SCREENING (06/18/2020 12:49 PM CDT) Report Endoscopy POC _ Patient Name: Lucretia Rodriguez ? Procedure Date: 06/18/2020 12:49 PM ? Date of : 1965 ? Admit Type: Outpatient Age: 54 ? Gender: Female Attending MD: Mark Rose MD _ Procedure: ? Colonoscopy Indications: ? Screening for colorectal malignant neoplasm, High risk ? colon cancer surveillance: Personal history of colonic ? polyps, Last colonoscopy 5 years ago. Uncle with colon ? cancer Providers: ? Mark Rose MD (Doctor) Medicines: ? Monitored Anesthesia Care Complications: ? No immediate complications. Estimated blood loss: None. _ Procedure: ? Pre-Anesthesia Assessment: ? - Prior to the procedure, a History and Physical was ? performed, and patient medications and allergies were ? reviewed. The patient is competent. The risks and benefits ? of the procedure and the sedation options and risks were ? discussed with the patient. All questions were answered ? and informed consent was obtained. Patient identification ? and proposed procedure were verified by the physician, the ? nurse and the imitation marble mechanic in the procedure room. Mental ? Status Examination: alert and oriented. Airway ? Examination: normal oropharyngeal airway and neck ? mobility. Respiratory Examination: clear to auscultation. ? CV Examination: normal. Prophylactic Antibiotics: The ? patient does not require prophylactic antibiotics. Prior ? Anticoagulants: The patient has taken no previous ? anticoagulant or antiplatelet agents. ASA Grade ? Assessment: III - A patient with severe systemic disease. ? After reviewing the risks and benefits, the patient was ? deemed in satisfactory condition to undergo the procedure. ? The anesthesia plan was to use monitored anesthesia care ? (MAC). Immediately prior to administration of medications, ? the patient was re-assessed for adequacy to receive ? sedatives. The heart rate, respiratory rate, oxygen ? saturations, blood pressure, adequacy of pulmonary ? ventilation, and response to care were monitored ? throughout the procedure. The physical status of the ? patient was re-assessed after the procedure. ? After I obtained informed consent, the scope was passed ? under direct vision. Throughout the procedure, the ? patient's blood pressure, pulse, and oxygen saturations ? were monitored continuously. The Colonoscope was ? introduced through the anus and advanced to the cecum, ? identified by appendiceal orifice and ileocecal valve. The ? colonoscopy was performed without difficulty. The patient ? tolerated the procedure well. The quality of the bowel ? preparation was excellent. The quality of the bowel ? preparation was excellent. The ileocecal valve, ? appendiceal orifice, and rectum were photographed. ? Findings: ? The digital rectal exam was normal. Pertinent negatives include no ? palpable rectal lesions. ? Two sessile polyps were found in the sigmoid colon. The polyps were 2 to ? 3 mm in size. These polyps were removed with a cold biopsy forceps. ? Resection and retrieval were complete. ? Four sessile polyps were found in the sigmoid colon, descending colon ? and ascending colon. The polyps were 5 to 6 mm in size. These polyps ? were removed with a hot snare. Resection and retrieval were complete. ? The transverse colon, cecum, appendiceal orifice and ileocecal valve ? appeared normal. ? Non-bleeding internal hemorrhoids were found during retroflexion. The ? hemorrhoids were mild. _ ? Impression: ?- Two 2 to 3 mm polyps in the sigmoid colon, removed with ? a cold biopsy forceps. Resected and retrieved. ? - Four 5 to 6 mm polyps in the sigmoid colon, in the ? descending colon and in the ascending colon, removed with ? a hot snare. Resected and retrieved. ? - The transverse colon, cecum, appendiceal orifice and ? ileocecal valve are normal. ? - Non-bleeding internal hemorrhoids. Recommendation: ?- Await pathology results. ? - Repeat colonoscopy in 3 years for surveillance if all ? polyps are adenomas; if a mix of adenomas and ? hyperplastic, then ok for 5 years; if all hyperplastic, ? then ok for 10 years. ? - Return to primary care physician as previously scheduled. ? - Resume previous diet. ? - Continue present medications. ? - Patient has a contact number available for emergencies. ? The signs and symptoms of potential delayed complications ? were discussed with the patient. Return to normal ? activities tomorrow. Written discharge instructions were ? provided to the patient. ? Procedure Code(s): ? --- Professional --- ? 43119, Colonoscopy, flexible; with removal of tumor(s), polyp(s), or ? other lesion(s) by snare technique ? 11137, 59, Colonoscopy, flexible; with biopsy, single or multiple ? --- Technical --- ? 76218, Colonoscopy, flexible; with removal of tumor(s), polyp(s), or ? other lesion(s) by snare technique ? 87299, 59, Colonoscopy, flexible; with biopsy, single or multiple Diagnosis Code(s): ? --- Professional --- ? Z12.11, Encounter for screening for malignant neoplasm of colon ? Z86.010, Personal history of colonic polyps ? D12.5, Benign neoplasm of sigmoid colon ? D12.4, Benign neoplasm of descending colon ? D12.2, Benign neoplasm of ascending colon ? K64.8, Other hemorrhoids ? --- Technical --- ? Z12.11, Encounter for screening for malignant neoplasm of colon ? Z86.010, Personal history of colonic polyps ? D12.5, Benign neoplasm of sigmoid colon ? D12.4, Benign neoplasm of descending colon ? D12.2, Benign neoplasm of ascending colon ? K64.8, Other hemorrhoids CPT copyright 2017 [employer]. All rights reserved. The codes documented in this report are preliminary and upon auditing coder review may be revised to meet current compliance requirements. Dr. Mark Rose MD Mark Rose MD 06/18/2020 1:20:39 PM This report has been signed electronically. Number of Addenda: 0 Note Initiated On: 06/18/2020 12:49 PM [facility] 06/18/2020 12:4 9 PM CDT Mark Rose MD GI PROCEDURE ORDERA ANNA[place] [address] * MAMMO SCREENING DIGITAL IMAGE BILAT G0202 (12/21/2018 2:08 PM CDT) Anatomical Region Laterality Modality Breast Bilateral Mammography 12/21/2018 3:33 PM CDT Addenda Addendum by Dana Patton MD on 12/22/2018 1:31 PM CDT Addendum/correction: Density should read PREDOMINANTLY FATTY. Addending Radiologist: Dana Patton MD on 12/22/2018 at 1:28 PM Narrative 12/21/2018 3:35 PM CDT DIGITAL MAMMOGRAM SCREENING BILATERAL WITH CAD CORRELATION 3-D DIGITAL TOMOSYNTHESIS DATE: 12/21/2018 1:24 PM PREVIOUS EXAM DATE: 11/05/2015 and previous HISTORY: Screening TECHNIQUE: Bilateral breast CC and MLO views. These images were interpreted with the aid of CAD. 3-D Digital Tomosynthesis was performed. TISSUE DENSITY: Almost entirely FINDINGS: No suspicious mass identified. Microcalcifications right breast are redemonstrated, benign in appearance. No significant new finding. ASSESSMENT: Benign finding, BI-RADS 2 RECOMMENDATIONS: Continued annual screening mammography The above findings should be correlated with physical examination. ??A relatively nonspecific study should not preclude additional evaluation if suspicious findings are present clinically. An [employer] certified facility. [facility] utilize [employer] as a reminder system to notify patients of their next recommended mammograms. Reading Radiologist: Stevenson Medrano MD on 12/21/2018 at 3:35 PM Anuj Schwartz MD MAMMO ORDERABLES * HEPATITIS C AB W/RFLX TO HCV RNA QN PCR (06/10/2017 7:27 AM CDT) Hepatitis C Antibody 0.1 0.0 - 0.9 s/co ratio [facility] ([facility]) 06/10/2017 7:27 AM CDT 06/10/2017 Narrative [facility] ([facility]) - 06/11/2017 8:23 AM CDT Performed at: ??01 - [facility] ??[id number] Hvac Manager: Giblerto Malhotra PhD, Phone: ??[phone] Neena Flores MD LAB - CHEMISTRY ORDERABLES [facility] ([facility]) * DIABETES EYE EXAM (10/18/2016) Sveta Gross MD HEALTH MAINTENANCE * (ABNORMAL) HEMOGLOBIN A1C (05/27/2016 2:17 PM CDT) Hemoglobin A1c 6.7(H) 4.2 - 6.3 % [facility] ACCOUNT BILL Comment:AVERAGE GLUCOSE MG/D L BLOOD 146 mg/dL Whole blood specimen (specimen) BLOOD SPECIMEN WITH EDTA / Unknown 05/27/2016 2:17 PM CDT 05/27/2016 7:05 PM CDT Narrative Resulting Agency Comment [facility] [address] [facility] ??[facility] [id number] Sveta Gross MD LAB - CHEMISTRY ORD ERABLES Performing Organization Address City/[facility]/ZIP Co de Phone Number [facility] ACCOUNT BILL [address] [place] [address] * PAP SMEAR IG CT+GC HPV HR (PO REF LAB) (09/18/2015 3:09 PM CONCRETE POURING SUPERVISOR) Diagnosis [facility] INSURANCE BILL Comment:NEGATIVE FOR INTRAEP ITHELIAL LESION AND MALIGNANCY. Specimen Adequacy [facility] INSURANCE BILL Comment: Satisfactory for evaluation. ??Endocervical and/or squamous metaplastic cells (endocervical component) are present. Clinician Provided ICD10 [facility] INSURANCE BILL Comment: Z01.419 Z12.39 Z12.4 Performed by [facility] INSURANCE BILL Comment:Allie Cole, Cyto technologist Comment . [facility] INSURANCE BILL Note [facility] INSURANCE BILL Comment: The Pap smear is a screening test designed to aid in the detection of premalignant and malignant conditions of the uterine cervix. ??It is not a diagnostic procedure and should not be used as the sole means of detecting cervical cancer. ??Both false-positive and false-negative reports do occur. ? . IGLBP CPT Code Automation [facility] INSURANCE BILL Comment: This liquid based ThinPrep(R) pap test was screened with the use of an image guided system. Human papillomavirus High Risk Negative Negative [facility] INSURANCE BILL Comment: This high-risk HPV test detects thirteen high-risk types (16/18/31/33/35/39/45/51/52/56/58/59/68) without differentiation. ?. Chlamydia trachomatis MATEO Negative Negative [facility] INSURANCE BILL GC DNA Probe Negative Negative [facility] INSURANCE BILL MICROSCOPIC CYTOLOGIC EXAMINATION OF SMEAR OF SPECIMEN FROM FEMALE GENITAL TRACT PREPARED USING PAPANICOLAOU TECHNIQUE / Unknown 09/18/2015 3:09 PM CONCRETE POURING SUPERVISOR 09/19/2015 2:26 AM CONCRETE POURING SUPERVISOR Narrative [facility] INSURANCE BILL - 09/21/2015 4:10 PM CONCRETE POURING SUPERVISOR Source.............Cervical No. of containers..01 CYTYC Thin Prep Vial Resulting Agency Comment [facility] [address] [facility] ??[place] [id number] Sveta Gross MD LAB - PATHOLOGY/CYT OLOGY ORDERABLES [facility] INSURANCE BILL from Last 3 Months or Most Recently Relevant to Health Maintenance Advance Directives * FULL RESUSCITATION (Latest Code Status on File) Date Activated Date Inactivated Comments 08/07/2013 5:32 PM 08/14/2013 2:31 PM Care Teams Refining Equipment Operator Relationship Specialty Start Date End Date Naya Arriola PA-C [address] [place] [phone] PCP - General Physician Rn Field Case Manager 01/19/20 Stevenson Almanza MD Neurology 08/16/14 [place] [address] [address] Pulmonary Disease 02/14/16
--- OUTSIDE RECORDS SUMMARY | 2024-09-18 09:29 | XMS_ITS | Continuity of Care Document ---
Author Organization [facility] (Adult Med) Address [address] [place] [address] Care Team Providers Care Edger Operator Name Role Phone SALINAS PENN Primary Care Provider Assessment No assessment recorded. Plan of Treatment Reminders Order Date Submit Date Provider Last Modified By Organization Details Last Modified Time Details Appointments ANY 30 2024 02:00P M SALINAS PENN PA-C Not available Not available Not available Lab None recorded. Referral physical therapist referral 2023 024 [facility], [address] [place], [address], 08/08/2024 19:18:47 Procedures None recorded. Surgeries None recorded. Imaging None recorded. Medication Orders None recorded. Patient TargetsNo targets recorded. Patient Instructions Encounter Date Encounter Id Patient Instructions Last Modified By Organization Details Last Modified Time 07/19/2024 [id number] hip pain: care instructions [email or web address] Not available 07/19/2024 17:14:17 sacroiliac pain: exercises Not available 07/19/2024 17:14:17 low back pain: exercises [email or web address] Not available 07/19/2024 17:14:17 A healthy lifestyle: care instructions [email or web address] Not available 07/19/2024 16:17:49 Reason for Referral Physical Therapist Referral for Pain of left hip joint Referring Physician: Salinas Penn, Family Medicine, Encounter Date: 07/19/2024 Results Created Date Observation Date Name Description Value Unit Range Abnormal Flag Note LastModifiedBy Organization Detail LastModifiedTime 09/12/1909/12/2024 imagi ng/di agnos tic resul t No observ ation record ed. [facility] [address], [place], [address], 09/12/2024 12:53:12 Result Notes None recorded. Problems Name Problem SNOMED Code Status Onset Date Resolution Date Notes Provider Name and Address Organization Details Recorded Time Hyperten sive disorder 69663887 Active 2019 SALINAS PENN PA-C Attn: Accounting ,[address] [facility], [place], [address] , [place] [facility] 3 16:56:36 Serum choleste rol very high 742866662 Completed 201901/02/2020 VERONICA REMY Attn: Accounting ,[address] [facility], [place], [address] , [place] [facility] 0 15:30:16 Multiple sclerosi s 75662587 Active 2019 Not Available [facility] 3 17:39:11 Gastropa resis syndrome 966521173 Active 2019 Not Available [facility] 3 17:39:11 Irritabl e bowel syndrome 71492236 Active 2019 SALINAS PENN PA-C Attn: Accounting ,[address] [facility], [place], [address] , [place] [facility] 4 15:19:59 Myocardi al infarcti on 97667297 Completed 201009/15/2019 Samantha Raymond [place] null, [place] [facility] 0 14:54:23 Type 2 diabetes mellitus 56186403 Active 2019 SALINAS PENN PA-C Attn: Accounting ,[address] [facility], [place], [address] , [place] [facility] 3 16:56:21 Hypothyr oidism 80600479 Active 2019 SALINAS PENN PA-C Attn: Accounting ,[address] [facility], [place], [address] , [place] [facility] 4 15:19:52 Systemic lupus erythema tosus 69752491 Completed 201902/29/2020 VERONICA REMY Attn: Accounting ,[address] [facility], [place], [address] , [place] 0 15:13:55 History of myocardi al infarcti on 787344758 Active 2019 H/o of [place] in 2001 s/p PCI Not Available [facility] 3 17:39:11 Angina pectoris 962042821 Active 2019 Went to [facility] on 12/18 for chest pain, CP improved with nitro. EKG normal. Admitted to cardiolo gy. Cardiac cath performe d on 12/20/19, showed 60-70% stenosis of prox. circumfl ex and 50-70% mid RCA stenosis . NL EF of 70%. Mildly elevated LVED filling pressure . Previous stent in LAD with 10% stent restenos is. Not Available [facility] 3 17:39:11 Coronary arterios clerosis 57248831 Active 2019 Hospital ized at [facility] on 12/19/19 for chest pain. Cardiac cath showed CAD, isosorbi de mononitr ate added to regimen. Now followin g with [facility] Cardiolo gy Not Available [facility] 3 17:39:11 Hyperlip idemia 80127380 Active 2019 SALINAS PENN PA-C Attn: Accounting ,[address] [facility], [place], [address] , [facility] - [facility] 3 16:56:23 Obstruct jeannette sleep apnea syndrome 53894026 Active 2019 Cardiolo gy rec. repeat sleep study and tx for LISSETTE Not Available [facility] 3 17:39:11 Degenera tion of lumbosac ral interver tebral disc 58165972 Active 2019 Xray showed multilev el lumar spine degenera tive disc disease, severe from L3-S1 Not Available [facility] 3 17:39:11 Osteoart hritis of hip 293777367 Active 2019 Xray showed mild bilatera l hip OA Not Available [facility] 3 17:39:11 Osteoart hritis of joint of gage feng hands 04627293631 9109 Active 2019 Xrays showed gage l thumb OA SALINAS PENN PA-C Attn: Accounting ,[address] [facility], [place], [address] , [facility] - [facility] 4 15:19:55 Depressi ve disorder 19154448 Active 2023 SALINAS PENN PA-C Attn: Accounting ,[address] [facility], [place], [address] , [facility] - [facility] 4 15:55:55 Degenera tion of interver tebral disc 52444004 Active 2023 SALINAS PENN PA-C Attn: Accounting ,[address] [facility], [place], [address] , [facility] - [facility] 4 18:02:02 Notes:Some problems listed i n Documents: #[id number], #[id number] could not be added to this patient's chart. Please review these documents and add these problems to the patient's chart manually as needed. Problem Notes None recorded. Procedures Surgical History Date Name Laterality Status Provider Name and Address Organization Details Recorded Time 01/03/20 23 Date of Last Mammogram completed Amanda Huerta [place] - [facility] 03/06/2023 14:56:30 06/07/20 20 colonoscopy completed VERONICA REMY Attn: Accounting,[address] [facility], [place], [address], [place] [facility] 11/20/2020 10:13:50 09/07/19 17 arthroplasty of knee completed Samantha Raymond [place] - [facility] 09/15/2019 14:55:13 09/07/19 15 Carpal tunnel surgery completed ORLY Dixon - [facility] 09/15/2019 14:55:33 09/07/19 14 Date of Last Pap Smear completed ORLY López - [place] 04/28/2023 10:23:21 09/07/19 10 laparoscopic adjustable gastric banding completed ORLY [place] - [place] 09/15/2019 14:55:57 04/07/20 06 endometrial ablation completed VERONICA REMY Attn: Accounting,[address], [place], [address], [place] [facility] 04/28/2023 16:55:51 09/07/18 98 ligation of fallopian tube completed ORLY Dixon - [facility] 09/15/2019 14:56:14 09/07/18 72 Removal of tonsils completed Samantha Raymond [place] - [facility] 09/15/2019 14:54:53 Imaging Results None recorded. Procedure Notes None recorded. Medical Equipment None Reported. Allergies Allergen ID Allergen Name Allergen Category Reaction Reaction Severity Criticality Documentation Date Start Date Code Code System Note Provider Name and Address Organization Details Recorded Time 906355 Substance with sulfonami de structure and antibacte rial mechanism of action (substanc e) medicatio n facial swelling severe Not available 09/15/2019 82968 8003 SNOMED ORLY Dixon, [place] - [facility] 0 14:40:28 165652 latex environme nt,medica tion itching severe Not available 09/15/2019 92218 91 RxNorm ORLY [place], [place] - [facility] 0 14:40:47 026629 adhesive tape environme nt,medica tion rash Not available Not available 09/15/2019 ORLY Dixon, [place] - [facility] 0 14:41:07 Medications Name Sig [...] Updated DateTime 4 160.02 cm 44 kg/m2 213794. 71 g 98 % 98 % 77 /min 124 mm[Hg] 76 mm[Hg] Melany Moura MA [place] - [facility] 4 15:30:53 Social History Question Answer Notes LastModified by Organizat ion Details LastModified Time Tobacco Smoking Status Former Smoker quit in 2018 Dariana Tan MA null, [place] - [facility] 04/28/2023 10:24:35 Do You Have An Advance [...] Response Coronary Artery Disease N Other N Atrial Fibrillation N High Blood Pressure Y Thyroid Problems Y Kidney or Bladder Problems N Depression N COPD N Blood Clots N GI Problems N Skin Problems N Anemia N Heart Attack ([place]) Y Diabetes N Anxiety Disorder Y Muscle, Joint, or Bone Problems Y Seizures/Epilepsy N Acid Reflux (GERD) N Cancer Y Stroke N Allergies N Asthma N High Cholesterol Y Hepatitis N Liver [...] 6 completed VERONICA REMY Attn: Accounting,[address] [place], [address], [place] [facility] 05/22/2020 16:33:08 Influenza, split [...] Lindsay [place], [place] [facility] 05/26/2022 10:59:45 SARS-COV-2 (COVID-19) [...] SNOMED-CT Code Diagnosis ICD10 Code Diagnosis Note [id number] [facility] (Adult Med) [address] [place] [phone] 07/19/2024 15:20:02 07/22/2024 11:09:05 Morbid obesity 105062544 E66.01 BMI 44 Pain of le ft hip joint 8350947094 72784 M25.552 Physical therapy referral given todayEzekiel wilian with pain medication as needed Health Concerns Section Related Observation LastModified by Organization Detai ls LastModified Time None Recorded Concern Status LastModified by Organization Details LastModified Time None Recorded Payers Encounter Date Sequence Insurance Name Policy Number Policy Weston Covered Member ID Weston Member ID Guarantor Name 07/19/2024 1 [facility] [id number] Lucretia Rodriguez [id number] Lucretia Michael Notes Date Note Type Note Provider Name and Address Organization Details Recorded Time 07/19/2024 text/html A 58 y.o Caucasi an F with a history of HTN, T2DM, [...] pain, SOB, N/V/D. SALINAS PENN PA-C Attn: Accounting,[address] [place], [address], [place] [facility] 07/19/2024 17:14:39 OBGyn Episode No OBEpisode recorded.
--- OUTSIDE RECORDS SUMMARY | 2024-09-18 09:29 | XMS_ITS | Clinical Summary ---
Author Organization [facility] Address [address] [facility] [place] [address] Care Team Providers Care Swaging Machine Adjuster Name Role Phone Stevenson Almanza MD Unavailable [phone] Dequan Baxter MD Unavailable [phone] Naya Arriola PA-C Primary Care Provider + Source Comments [facility],non-owned Affiliates and Associated Physician Practices is amultiple site organization consisting of ambulatory clinics and hospital sitesin [place], [place], [place] and [place]. This disclosure is being madepursuant to the Care Everywhere program and may not contain all information available regarding this patient. Last updated 18.[facility] Allergies Active Allergy Reactions Criticality Noted Date [...] classified 05/02/20 13 01/23/2015 Prediabetes 05/02/2013 02/26/2016 Encounters Date Type Department Care Team Description 08/08/2024 Travel from Last 3 Months Immunizations Name Administration Dates Next Due INFLUENZA VACCINE, TRIV. (AF LURIA, FLUZONE TRIVALENT; 6MO+) (IIV3) 07/25/2014 Covid Daric primary monoval ent 12+ yr 0.3mL Purple cap 12/22/2020,12/01/2020 INFLUENZA VACCINE 06/07/2018,06/15/2013 INFLUENZA VACCINE, CELL CULT URE, QUADR. (FLUCELVAX QUADRIVALENT; 6MO+), 0.5 ML (CCIIV4) 06/08/2019 INFLUENZA VACCINE, QUADR. (F LUZONE; FLULAVAL; FLUARIX; AFLURIA QUADRIVALENT; 6MO+), 0.5 ML (IIV4) 06/27/2015 Pneumococcal Pcv13 Conj 02/26/2016 Family History Medical History Relation Name Comments Heart Failure Father heart attack Cancer Maternal Grandfather lung Cancer Maternal Grandmother laranyx Colon Cancer after age 50 or unknown Maternal Uncle 1 colon Cancer - Other Maternal Uncle 2 lung Heart Failure Mother heart attack Hypercholesterolemia Mother Diabetes Sister 1 Hypertension Sister 2 Migraine Sister 3 Asthma Neg Hx CVA Neg Hx Cancer - Breast Neg Hx Cancer - Skin, Melanoma Neg Hx Cancer - Skin, Non Melanoma Neg Hx Eczema Neg Hx Hemophilia Neg Hx Psoriasis Neg Hx Relation Name Status Comments Father Maternal Grandfather Maternal Grandmother Maternal Uncle 1 Maternal Uncle 2 Mother Sister 1 Sister 2 Sister 3 Social History Tobacco Use Types Packs/Day Years [...] Comments Blood Pressure 102/69 08/25/2023 11:30 AM PUBLIC HEALTH DIRECTOR Pulse 92 08/25/2023 11:30 AM PUBLIC HEALTH DIRECTOR Temperature 36.6 ??C (97.9 ??F) 06/18/2020 1:22 PM CD T Respiratory Rate 14 04/28/2023 1:00 PM CDT Oxygen Saturation 94% 08/25/2023 11:30 AM PUBLIC HEALTH DIRECTOR Inhaled Oxygen Concentration - - Weight 107 kg (236 lb) 08/25/2023 11:30 AM PUBLIC HEALTH DIRECTOR Height 160 cm (5' 3 ) 04/28/2023 1:00 PM CDT Body Mass Index 41.81 04/28/2023 1:00 PM CDT Plan of Treatment Upcoming Encounters Date Type Department Care Team (Late st Contact Info) Description 09/27/2024 2:20 PM PUBLIC HEALTH DIRECTOR Office Visit [facility] [address] [address] [place] [address] [facility] [address] [place] [address] 09/28/2024 1:00 PM PUBLIC HEALTH DIRECTOR Office Visit [facility] [place] [address] [facility] [address] [place] [address] [place] [address] [facility] [address] [place] [address] Health Maintenance Due Date Last Done Comments COLOGUARD (AGES 45-75) - COLON CA SCREENING 1964 CT COLONOGRAPHY - COLON CA SCREENING 1964 FIT - COLON CA SCREENING 1964 FLEX SIG - COLON CA SCREENING 1964 HIV SCREENING 1979 DTAP/TDAP/TD VACCINES (1 - Tdap) 1983 ZOSTER VACCINE (1 of 2) 2014 PNEUMOCOCCAL VACCINE 50+ (2 of 2 - PPSV23) 04/22/2016 02/26/2016 PNEUMOCOCCAL VACCINE (2 of 2 - PPSV23) 04/22/2016 02/26/2016 DIABETES-HGB A1C 11/24/2016 05/27/2016, , 11/12/2015, Additional history exists DIABETES-FOOT EXAM WITH MONOFILAMENT 02/26/2017 02/27/2016 DIABETES RETINOPATHY SCREENING 10/18/2018 10/18/2016 PAP with HPV 09/18/2020 09/18/2015 MAMMOGRAM 12/21/2020 12/21/2018, 10/09, 01/24/2014 DIABETES-SERUM CREATININE 05/07/20232021, 10/26/2020, 04/18/2020, Additional history exists COVID-19 VACCINE ( season) 2024 12/22/2020, 12/01/2020 INFLUENZA VACCINE (#1) 2024 9, 06/07/2018, 06/27/2015, Additional history exists DEPRESSION SCREENING 09/07/2024 DIABETES - URINE PROTEIN SCREENING 09/07/2024 Respiratory Syncytial Virus (RSV) Vaccine Pt: or over 60 yrs (1 - Risk 60-74 years 1-dose series) 2024 COLON MONITORING 06/18/2025 06/18/2020, 08/2020, 10/23/2014 Colorectal Cancer Screening 06/18/2025 COLONOSCOPY - COLON CA SCREENING 06/18/2030 06/18/2020, 06/18/2020, 10/23/2014 HEPATITIS C SCREENING Completed 06/10/2017, 013 HEPATITIS B VACCINE Aged Out No longe r eligible based on patient's age to complete this topic HIB VACCINE Aged Out No longer eligi ble based on patient's age to complete this topic HPV VACCINE Aged Out No longer eligi ble based on patient's age to complete this topic MENINGOCOCCAL (Group B) VACCINE Aged Out No longer eligible based on patient's age to complete this topic MENINGOCOCCAL VACCINE Aged Out No elvia gina eligible based on patient's age to complete this topic Goals Goal Patient Goal Type Associated Problems Recent Progress Patient-Stated? Author Blood Pressure < 140/90 Blood Pressure 102/69(2022 11:30 AM PUBLIC HEALTH DIRECTOR) No Melinda Newsome Quit smoking / using [...] LB CT+GC+HPV HR Routine 6 3:09 PM PUBLIC HEALTH DIRECTOR Screening for cervical cancer from Last 3 [...] Resulting Agency Comment Lab Testing performed at: [address] ?? [facility] [id number] Taylor Donohue WARBLE SAW OPERATOR-HEALTHCARE NETWORK CONSULTANT LAB - CHEMISTRY ORDERABLES [facility] ACCOUNT BILL [address] [place] [address] * ENDOSCOPY, COLON, SCREENING (06/18/2020 12:49 PM CDT) Pathologist [facility] Report Endoscopy POC _ Patient Name: Lucretia [...] the physician, the ? nurse and the supervisor liquefaction in the procedure room. Mental ? Status [...] Procedure Code(s): ? --- Professional --- ? 13633, Colonoscopy, flexible; with removal of tumor(s), polyp(s), or ? other lesion(s) by snare technique ? 29068, 59, Colonoscopy, flexible; with biopsy, single or multiple ? --- Technical --- ? 52595, Colonoscopy, flexible; with removal of tumor(s), polyp(s), or ? other lesion(s) by snare technique ? 31144, 59, Colonoscopy, flexible; with biopsy, single or [...] ? K64.8, Other hemorrhoids CPT copyright 2017 [employer]. All rights reserved. The codes documented in this report are preliminary and upon grain elevator agent review may be revised to meet current compliance requirements. Dr. Mark Rose MD Mark Rose MD 06/18/2020 1:20:39 PM This report has been signed electronically. Number of Addenda: 0 Note Initiated On: 06/18/2020 12:49 PM [facility] ENDOSCOPY 06/18/2020 12:4 9 PM CDT Mark Rose MD GI PROCEDURE ORDERA BLES [facility] ENDOSCOPY VIJAY Roberts [address] * MAMMO SCREENING DIGITAL IMAGE BILAT G0202 [...] if suspicious findings are present clinically. An [employer] certified facility. [facility] utilize [employer] as a reminder system to notify patients of their next recommended mammograms. Reading Radiologist: Stevenson Medrano MD on 12/21/2018 at 3:35 PM Anuj Schwartz MD MAMMO ORDERABLES * HEPATITIS C AB W/RFLX TO HCV RNA QN PCR (06/10/2017 7:27 AM CDT) Hepatitis C Antibody 0.1 0.0 - 0.9 s/co ratio [facility] (BEAKER) 06/10/2017 7:27 AM CDT 06/10/2017 Narrative [facility] (ZEB) - 06/11/2017 8:23 AM CDT Performed at: ??01 - [facility] ??[id number] Warehouse Distribution Specialist: Gilberto Malhotra PhD, Phone: ??[phone] Neena Flores MD LAB - CHEMISTRY ORDERABLES Performing Organization Address City/[facility]/ZIP Co de Phone Number [facility] JERRY) * DIABETES EYE EXAM (10/18/2016) Sveta Gross MD HEALTH MAINTENANCE * (ABNORMAL) HEMOGLOBIN A1C (05/27/2016 2:17 PM CDT) Hemoglobin A1c 6.7(H) 4.2 - 6.3 % [facility] ACCOUNT BILL Comment:AVERAGE GLUCOSE MG/D L BLOOD 146 mg/dL Whole blood specimen (specimen) BLOOD SPECIMEN WITH EDTA / Unknown 05/27/2016 2:17 PM CDT 05/27/2016 7:05 PM CDT Narrative Resulting Agency Comment [facility] [address] [facility] ??[facility] [id number] Sveta Gross MD LAB - CHEMISTRY ORD ERABLES Performing Organization Address City/[facility]/ZIP Co de Phone Number [facility] ACCOUNT BILL [address] [place] [address] * PAP SMEAR IG CT+GC HPV HR (PO REF LAB) (09/18/2015 3:09 PM PUBLIC HEALTH DIRECTOR) Diagnosis [facility] INSURANCE BILL Comment:NEGATIVE FOR INTRAEP ITHELIAL LESION AND MALIGNANCY. Specimen Adequacy [facility] INSURANCE BILL Comment: Satisfactory for evaluation. ??Endocervical and/or squamous metaplastic cells (endocervical component) are present. Clinician Provided ICD10 [facility] INSURANCE BILL Comment: Z01.419 Z12.39 Z12.4 Performed by [facility] INSURANCE BILL Comment:Allie Douglas, Cyto technologist Comment . [facility] INSURANCE BILL [...] PAPANICOLAOU TECHNIQUE / Unknown 09/18/2015 3:09 PM PUBLIC HEALTH DIRECTOR 09/19/2015 2:26 AM PUBLIC HEALTH DIRECTOR Narrative [facility] INSURANCE BILL - 09/21/2015 4:10 PM PUBLIC HEALTH DIRECTOR Source.............Cervical No. of containers..01 CYTYC Thin Prep Vial Resulting Agency Comment [facility] Fabrice [address] [facility] ??Fabrice NAIR [id number] Sveta Gross MD LAB - PATHOLOGY/CYT OLOGY ORDERABLES [facility] INSURANCE BILL from Last 3 Months or Most Recently Relevant to Health Maintenance Advance Directives * FULL RESUSCITATION (Latest Code Status on File) Date Activated Date Inactivated Comments 08/07/2013 5:32 PM 08/14/2013 2:31 PM Care Teams Swaging Machine Adjuster Relationship Specialty Start Date End Date Naya Arriola PA-C [address] [place] [phone] PCP - General Physician Production Bow Maker 01/19/20 Stevenson Almanza MD Neurology 08/16/14 Dequan Baxter [place] [id number] [place], [place] [id number] Pulmonary Disease 02/14/16
--- OUTSIDE RECORDS SUMMARY | 2024-09-18 09:30 | XMS_ITS | Encounter Summary ---
Author Organization [facility] Address [address] [facility] [place] [address] Care Team Providers Care Mail Superintendent Name Role Phone Stevenson Almanza MD Unavailable [phone] Dequan Baxter MD Unavailable [phone] Naya Arriola PA-C Primary Care Provider + Reason for Visit * Reason Comments Refill Request Encounter Details Date Type Department Care Team (Late st Contact Info) Description 09/01/2023 Refill [facility] [place] [address] [facility] [address] [address] Taylor Donohue, TOE STAPLER-IRRADIATED FUEL HANDLER [address] [address] Refill Request Social History Tobacco Use Types Packs/Day Years Used Date Smoking Tobacco: Former Cigarettes 0.5 30 Smokeless Tobacco: Never Alcohol Use Standard Drinks/Week Comments No 0 (1 standard drink = 0.6 oz pur e alcohol) Rarely Sex and Gender Information Value Date Recorded Sex Assigned at Female 12/01/2020 7:48 AM CDT Gender Identity Female 12/01/2020 7:48 AM CDT Sexual Orientation Straight 12/01/2020 7: 48 AM CDT documented as of this encounter Functional Status Functional Status Response Date of [...] person have difficulty concentrating/remembering/making decisions? No 10/23/2014 documented as of this encounter Plan of Treatment Upcoming Encounters Date Type Department Care Team (Late st Contact Info) Description 09/27/2024 2:20 PM AUTO TECHNICIAN MECHANIC Office Visit [facility] Neurosciences [address] [facility] [address] [place] [phone] [place] [address] [facility] [address]AN AL[address]ERTO [address] [place] [address] 09/28/2024 1:00 PM AUTO TECHNICIAN MECHANIC Office Visit [facility] - [address] [address], [address] [place] [address] [place] [address] [address] [place] [address] documented as of this encounter Goals Goal Patient Goal Type Associated Problems Recent Progress Patient-Stated? Author Blood Pressure < 140/90 Blood Pressure 102/69(2022 11:30 AM AUTO TECHNICIAN MECHANIC) No Melinda Newsome Quit smoking / using tobacco Lifestyle No Melinda Newsome documented as of this encounter Visit Diagnoses Not on filedocumented in this encounter Care Teams Mail Superintendent Relationship Specialty Start Date End Date Naya Arriola PA-C [address] [place] [phone] PCP - General Physician Cardiology Physician Assistant 01/19/20 Stevenson Almanza MD Neurology 08/16/14 [place] [address] [address] Pulmonary Disease 02/14/16 documented as of this encounter
--- OUTSIDE RECORDS SUMMARY | 2024-09-18 09:30 | XMS_ITS | Encounter Summary ---
Author Organization [facility] Health Address [address] [facility] [place] [address] Care Team Providers Care Tool And Die Maker Level Five Name Role Phone Stevenson Almanza MD Unavailable [phone] Dequan Baxter MD Unavailable [phone] Naya Arriola PA-C Primary Care Provider + Encounter Details Date Type Department Care Team (Latest Contact Info) Description 08/08/2024 Travel Social History Tobacco Use Types Packs/Day Years [...] st Contact Info) Description 09/27/2024 2:20 PM MICROSOFT BI DEVELOPER Office Visit [facility] Health Neurosciences [address] [facility] [address] [place] [address] [place] [address] [place] [address] 09/28/2024 1:00 PM MICROSOFT BI DEVELOPER Office Visit [facility] [place] [address] [address] , Juan [address] [place] [address] [place] [address] [address]LL [facility] [[email or web address] [address] [place] [address] documented as of this encounter Goals Goal Patient Goal Type Associated Problems Recent Progress Patient-Stated? Author Blood Pressure < 140/90 Blood Pressure 102/69(2022 11:30 AM MICROSOFT BI DEVELOPER) No Melinda Newsome Quit smoking / using tobacco Lifestyle No Melinda Newsome documented as of this encounter Visit Diagnoses Not on filedocumented in this encounter Care Teams Tool And Die Maker Level Five Relationship Specialty Start Date End Date Naya rAriola PA-C [address] [place] [phone] PCP - General Physician Slicer Machine Operator 01/19/20 Stevenson Almanza MD Neurology 08/16/14 [place] [address] [place] [address] Pulmonary Disease 02/14/16 documented as of this encounter
--- OUTSIDE RECORDS SUMMARY | 2024-09-18 09:30 | XMS_ITS | Encounter Summary ---
Author Organization [facility] Address [address] [place] [address] Care Team Providers Care Anesthesia Resident Name Role Phone Stevenson Almanza MD Unavailable [phone] Dequan Baxter MD Unavailable [phone] Naya Arriola PA-C Primary Care Provider + Reason for Visit * Reason Onset Date Comments MEDICATION REFILL 10/06/2023 Encounter Details Date Type Department Care Team (Late st Contact Info) Description 10/06/2023 Refill [facility] Medical [facility] - [address] [address] [address] [place] [address] [address] [address] MEDICATION REFILL Social History Tobacco Use Types Packs/Day Years [...] st Contact Info) Description 09/27/2024 2:20 PM OIL FIELD LABORER Office Visit [facility] Neurosciences [address] [facility] [address] [place] [address] [place] [address] [facility] [address] [place] [address] 09/28/2024 1:00 PM OIL FIELD LABORER Office Visit [facility] Medical Group - [address] [address], Juan Alber[address] [place] [address] [place] [address] [address] [place] [address] documented as of this encounter Goals Goal Patient Goal Type Associated Problems Recent Progress Patient-Stated? Author Blood Pressure < 140/90 Blood Pressure 102/69(2022 11:30 AM OIL FIELD LABORER) No Melinda Newsome Quit smoking / using tobacco Lifestyle No Melinda Newsome documented as of this encounter Visit Diagnoses Not on filedocumented in this encounter Care Teams Anesthesia Resident Relationship Specialty Start Date End Date Naya Arriola PA-C [address] [place] [address] PCP - General Physician Chemistry Instructor 01/19/20 Stevenson Almanza MD Neurology 08/16/14 [place] [address] [address] Pulmonary Disease 02/14/16 documented as of this encounter
--- OUTSIDE RECORDS SUMMARY | 2024-09-18 09:30 | XMS_ITS | Encounter Summary ---
Author Organization [facility] Address [address] [facility] [place] [address] Care Team Providers Care Wet And Dry Sugar Bin Operator Name Role Phone Stevenson Almanza MD Unavailable [phone] Dequan Baxter MD Unavailable [phone] Naya Arriola PA-C Primary Care Provider + Reason for Visit * Reason Onset Date Comments Results 11/11/2022 Encounter Details Date Type Department Care Team (Late st Contact Info) Description 11/11/2022 Telephone [facility] Medical [facility] - [address] [address] Barrett [address] [address] [place] [address] [address] [address] Results Social History Tobacco Use Types Packs/Day Years [...] No 10/23/2014 documented as of this encounter Miscellaneous Notes * Telephone Encounter - Augustine Crane RN - 11/11/2022 11:09 AM SMOKE TESTER ----- Message from SARAN Knight sent at 11/09/2022 2:56 PM SMOKE TESTER ----- Findings LFTs are now normal Recs Continue with dietary and lifestyle modifications with the goal of continued gradual weight loss Repeat LFTs in 6 months E TESTER documented in this encounter Plan of Treatment Upcoming Encounters Date Type Department Care Team (Late st Contact Info) Description 09/27/2024 2:20 PM SMOKE TESTER Office Visit [facility] Neurosciences [address] [facility] [address] [place] [address] [place] [address] [facility] SARAN [address] [place] [address] 09/28/2024 1:00 PM SMOKE TESTER Office Visit [facility] [place] [address] Michele Barrett, [facility] [address] [place] [address] [place] [address] [address]TT SARAN [address] [place] [address] documented as of this encounter Goals Goal Patient Goal Type Associated Problems Recent Progress Patient-Stated? Author Blood Pressure < 140/90 Blood Pressure 102/69(2022 11:30 AM SMOKE TESTER) No Melinda Newsome Quit smoking / using tobacco Lifestyle No Melinda Newsome documented as of this encounter Results * HEPATIC FUNCTION PANEL (05/22/2023 4:41 PM CDT) Protein Total 7.6 6.4 - 8.3 gm/dL [facility] INSURANCE BILL Albumin 4.1 3.4 - 5.0 gm/dL [facility] INSURANCE BILL Bilirubin Total 0.3 0.2 - 1.2 mg/dL [facility] INSURANCE BILL Bilirubin Direct 0.127 0.10 - 0.50 mg/dL [facility] INSURANCE BILL Alkaline Phosphatase 84 40 - 150 U/L [facility] INSURANCE BILL AST 25 5 - 34 U/L [facility] INSURANCE BILL ALT 20 0 - 55 U/L [facility] INSURANCE BILL Blood BLOOD SPECIMEN / Unknown 05/22/2023 4:41 PM CDT 05/22/2023 Narrative Resulting Agency Comment Lab Testing performed at: [facility] [address] [facility] ?? [facility] [id number] Mark Rose MD LAB - CHEMISTRY ORD ERABLES [facility] INSURANCE BILL [address] [place] [address] documented in this encounter Visit Diagnoses Diagnosis Fatty liver- Primary Other chronic nonalcoholic liver disease documented in this encounter Care Teams Wet And Dry Sugar Bin Operator Relationship Specialty Start Date End Date Naya Arriola PA-C [facility] [address] [place] [address] PCP - General Physician Single Ending Machine Operator 01/19/20 Stevenson Almanza MD Neurology 08/16/14 [place] [address] [facility] [address] [place] [address] Pulmonary Disease 02/14/16 documented as of this encounter
--- OUTSIDE RECORDS SUMMARY | 2024-09-18 09:30 | XMS_ITS | Encounter Summary ---
Author Organization [facility] Address [address] [facility] [place] [address] Care Team Providers Care Frog Or Oyster Farmworker Name Role Phone Stevenson Almanza MD Unavailable [phone] Dequan Baxter MD Unavailable [phone] Naya Arriola PA-C Primary Care Provider + Reason for Visit * Reason Onset Date Comments Results 05/25/2023 Encounter Details Date Type Department Care Team (Late st Contact Info) Description 05/25/2023 Telephone [facility] Medical [facility] - [address] [address] , [address] [address] Taylor Donohue, FIRE EXTINGUISHER MECHANIC-CHEMICAL PROCESSOR [address] [address] Results Social History Tobacco Use Types [...] Telephone Encounter - Augustine Crane RN - 05/25/2023 8:43 AM CDT ----- Message from SARAN Knight sent at 05/23/2023 4:13 PM CDT ----- Findings LFTs are normal ?? Recs Continue with dietary and lifestyle modifications with the goal of continued gradual weight loss Repeat LFTs in 6 months documented in this encounter Plan of Treatment Upcoming Encounters Date Type Department Care Team (Late st Contact Info) Description 09/27/2024 2:20 PM POWDER CUTTING OPERATOR Office Visit [facility] Neurosciences [address] [address] [place] [address] [phone] 09/28/2024 1:00 PM POWDER CUTTING OPERATOR Office Visit [facility] [place] [address] Michele Barrett, [address] [address] [place] [address] [address] [address] documented as of this encounter Goals Goal Patient Goal Type Associated Problems Recent Progress Patient-Stated? Author Blood Pressure < 140/90 Blood Pressure 102/69(2022 11:30 AM POWDER CUTTING OPERATOR) No Melinda Newsome Quit smoking / using tobacco Lifestyle No Melinda Newsome documented as of this encounter Results * HEPATIC FUNCTION PANEL (11/28/2023 10:07 AM CDT) Protein Total 7.2 6.0 - 8.5 g/dL [facility] ACCOUNT BILL Albumin 4.4 3.8 - 4.9 g/dL [facility] ACCOUNT BILL Bilirubin Total 0.4 0.0 - 1.2 mg/dL [facility] ACCOUNT BILL Bilirubin Direct 0.12 0.00 - 0.40 mg/dL [facility] ACCOUNT BILL Alkaline Phosphatase 85 44 - 121 IU/L [facility] ACCOUNT BILL AST 22 0 - 40 IU/L [facility] ACCOUNT BILL ALT 20 0 - 32 IU/L [facility] ACCOUNT BILL Blood BLOOD SPECIMEN / Unknown 11/28/2023 10:07 AM CDT 11/28/2023 Narrative Resulting Agency Comment Lab Testing performed at: [facility] [place] [id number] [facility] ??[facility] [id number] Taylor Donohue FIRE EXTINGUISHER MECHANIC-CHEMICAL PROCESSOR LAB - CHEMISTRY ORDERABLES [facility] ACCOUNT BILL [address] [place] [address] documented in this encounter Visit Diagnoses Diagnosis Fatty liver- Primary Other chronic nonalcoholic liver disease documented in this encounter Care Teams Frog Or Oyster Farmworker Relationship Specialty Start Date End Date Naya Arriola PA-C [address] [place] [phone] PCP - General Physician Bundle Shaker 01/19/20 Stevenson Almanza MD Neurology 08/16/14 [place] [address] [address] Pulmonary Disease 02/14/16 documented as of this encounter
--- OUTSIDE RECORDS SUMMARY | 2024-09-18 09:30 | XMS_ITS | Encounter Summary ---
Author Organization [facility] Address [address] [facility] [place] [address] Care Team Providers Care Client Onboarding Analyst Name Role Phone Stevenson Almanza MD Unavailable Dequan Baxter MD Unavailable [phone] Naya Arriola PA-C Primary Care Provider + Reason for Visit * Reason Comments Refill Request Encounter Details Date Type Department Care Team (Late st Contact Info) Description 04/11/2023 Refill [facility] [place] [address] [facility] [address] [address] Taylor Donohue, SOFTWARE APPLICATIONS ENGINEER-INSIDE PLANT SUPERVISOR [address] [address] Refill Request Social History Tobacco [...] st Contact Info) Description 09/27/2024 2:20 PM MILKING SYSTEM INSTALLER Office Visit [facility] Neurosciences [address] [facility] [address] [place] [address] [place] [address] [facility] J[address]AN [address] [place] [address] 09/28/2024 1:00 PM MILKING SYSTEM INSTALLER Office Visit [facility] Medical Group - [address] Michele Barrett, Juan [address] [place] [address] [place] [address] [address] [place] [address] documented as of this encounter Goals Goal Patient Goal Type Associated Problems Recent Progress Patient-Stated? Author Blood Pressure < 140/90 Blood Pressure 102/69(2022 11:30 AM MILKING SYSTEM INSTALLER) No Melinda Newsome Quit smoking / using tobacco Lifestyle No Melinda Newsome documented as of this encounter Visit Diagnoses Not on filedocumented in this encounter Care Teams Client Onboarding Analyst Relationship Specialty Start Date End Date Naya Arriola PA-C [address] [place] [address] PCP - General Physician Core Java Software Engineer 01/19/20 Stevenson Almanza MD Neurology 08/16/14 [place] [address] [address] Pulmonary Disease 02/14/16 documented as of this encounter
--- OUTSIDE RECORDS SUMMARY | 2024-09-18 09:30 | XMS_ITS | Encounter Summary ---
Author Organization [facility] Address [address] [place] [address] Care Team Providers Care Marketing Traffic Coordinator Name Role Phone Stevenson Almanza MD Unavailable [phone] Dequan Baxter MD Unavailable Naya Arriola PA-C Primary Care Provider + Reason for Visit * Reason Comments Refill Request Encounter Details Date Type Department Care Team (Late st Contact Info) Description 08/22/2022 Refill [facility] [place] [address] [facility] [address] [address] Taylor Donohue, DIAZO TECHNICIAN-CHARGE AIDE [address] [address] Refill Request Social History Tobacco [...] st Contact Info) Description 09/27/2024 2:20 PM COMBINATION BUILDING INSPECTOR Office Visit [facility] Neurosciences [address] [facility] [address] [place] [address] [place] [address] [facility] [address] [place] [address] 09/28/2024 1:00 PM COMBINATION BUILDING INSPECTOR Office Visit [facility] Medical Group - [address] Michele Barrett, Juan [address] [place] [address] [place] [address] [address] [place] [address] documented as of this encounter Goals Goal Patient Goal Type Associated Problems Recent Progress Patient-Stated? Author Blood Pressure < 140/90 Blood Pressure 102/69(2022 11:30 AM COMBINATION BUILDING INSPECTOR) No Melinda Newsome Quit smoking / using tobacco Lifestyle No Melinda Newsome documented as of this encounter Visit Diagnoses Not on filedocumented in this encounter Care Teams Marketing Traffic Coordinator Relationship Specialty Start Date End Date Naya Arriola PA-C [address] [place] [address] PCP - General Physician Electronics Repair Technician 01/19/20 Stevenson Almanza MD Neurology 08/16/14 [place] [address] [address] Pulmonary Disease 02/14/16 documented as of this encounter
--- OUTSIDE RECORDS SUMMARY | 2024-09-18 09:30 | XMS_ITS | Encounter Summary ---
Author Organization [facility] Address [address] [facility] [place] [address] Care Team Providers Care Hazard Waste Handler Name Role Phone Stevenson Almanza MD Unavailable [phone] Dequan Baxter MD Unavailable [phone] Naya Arriola PA-C Primary Care Provider + Reason for Referral * Medication Prior Authorization - Authorized Specialty Diagnoses / Procedures Referred By Ernesto barrios Referred To Contact Taylor Donohue APRN-CNP [id number] [place] [id number] Referral ID Status Reason Start Date Expiration Date V isits Requested Visits Authorized [id number] Authorized 1 1 Reason for Visit * Reason Comments Yearly Encounter Details Date Type Department Care Team (Late st Contact Info) Description 05/07/2022 1:30 PM CDT Office Visit [facility] [place] [address] [address] [place] [address] [address] [address] Elevated LFTs (Primary Dx); BOONE (nonalcoholic steatohepatitis); Abdominal pain, RUQ (right upper quadrant); Gastroparesis; Gastroesophageal reflux disease without esophagitis Social History Tobacco Use Types Packs/Day Years [...] Orientation Straight 12/01/2020 7: 48 AM CDT COVID-19 Exposure Response Date Recorded In the last 10 days, have yo u been in contact with someone who was confirmed or suspected to have Coronavirus/COVID-19? No / Unsure 04/22/2022 2:41 PM CDT documented as of this encounter Last Filed Vital Signs Vital Sign Reading Time Taken Comments Blood Pressure 130/85 05/07/2022 1:35 PM CDT Pulse 82 05/07/2022 1:35 PM CDT Temperature - - Respiratory Rate - - Oxygen Saturation 95% 05/07/2022 1:35 PM CDT Inhaled Oxygen Concentration - - Weight 108 kg (238 lb) 05/07/2022 1:35 PM CDT Height - - Body Mass Index 42.16 04/22/2022 2:45 PM CDT documented in this encounter Functional Status Functional Status Response [...] No 10/23/2014 documented as of this encounter Patient Instructions * Patient Instructions* Taylor Donohue APRN-CNP - 05/07/2022 2:11 PM CDT Check liver enzymes (blood work ordered at [facility]) Continue current medications. Can consider dose reduction of amitriptyline in the future Follow up one year or PRN documented in this encounter Progress Notes * Mark Rose MD - 05/07/2022 1:38 PM CDT GASTROENTEROLOGY PATIENT Name: Lucretia Rodriguez PCP: Naya Arriola PA-C HPI: Lucretia Rodriguez is a pleasant 56 year old female whom I am seeing for follow- up of BOONE, chronic GERD, sphincter of oddi dysfunction, and gastroparesis. She was last seen 12/2020.Her reflux is well controlled on Protonix 40 mg q.a.m. She has only occasionally breakthrough symptoms. She still has occasional dysphagia, but reports this is manageable at this time. Her last endoscopy was in June, demonstrated an esophageal stricture that was successfully dilated. Esophageal biopsies were negative for eosinophilia. TREY test was negative for H pylori. She continues to have intermittent nausea, but denies any vomiting. The nausea occurs several timesper week and can last 30min to a couple hours. At times the symptoms are worse with eating. She takes zofran PRN which controls her symptoms. She does not follow a gastroparesis diet, but eats smaller meals throughout the day. She denies any early satiety. She rarely has RUQ pain. 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 She denies any side effects from this medication. She has a history of elevated LFTs most consistent with BOONE. She has not had blood work in over a year. She has successfully lost 30lbs over the last year. She has been making healthier choices. She is fairly active at work. She denies any additional exercise. She rarely drinks alcohol. Her last right upper quadrant ultrasound with elastography was consistent with hepatic steatosis with no fibrosis. She has daily bowel movements with she takes Linzess 290 g q.day. She also underwent colonoscopy in June, that was notable for hyperplastic polyps. PAST HISTORY: Past Medical History: Diagnosis Date ??? Anemia ??? Anxiety ??? Depressive disorder, not elsewhere classified ??? Diabetes ??? Generalized anxiety disorder ??? H/O heart artery stent 2010 [id number] LAD( ) [facility] ??? H/O laparoscopic adjustable gastric banding 2009 ??? Heart attack 2010 ??? HTN (hypertension) ??? Hyperlipemia ??? Hypertension ??? Hypothyroid ??? Migraine ??? Multiple sclerosis 2006 Dr. Almanza ??? LISSETTE (obstructive sleep apnea) ??? S/P tonsillectomy ??? Stomach ulcer ??? Tension headache Past Surgical History: Procedure Laterality Date ??? CARPAL TUNNEL SURGERY R side ??? Cholecystectomy, Laparoscopic 08/09/2013 ??? Cholecystectomy, Laparoscopic 08/10/2013 LAPAROSCOPIC CHOLECYSTECTOMY ??? COLONOSCOPY 06/18/2020 COLONOSCOPY WITH BIOPSY AND OR POLYPECTOMY ??? Coronary Stent Placement was on plavix for 9 month, now on ASA ??? ENDOMETRIAL ABLATION 2006 for heavy menses. ??? ENDOSCOPY, UPPER 12/07/2017 ESOPHAGOGASTRODUODENOSCOPY (EGD) DIAGNOSTIC ??? ENDOSCOPY, UPPER 06/18/2020 ESOPHAGOGASTRODUODENOSCOPY (EGD) DIAGNOSTIC WITH BIOPSY AND OR POLYPECTOMY ??? ERCP 08/12/2013 ERCP ??? Knee Replacement Left ??? SYS LAP BAND 10.0 2009 ??? Tonsillectomy ??? TUBAL LIGATION, LAPAROSCOPIC ??? ULNAR NERVE RELEASE R side Social History Socioeconomic History ??? Marital status: Spouse name: Not on file ??? Number of children: 2 ??? Years of education: Not on file ??? Highest education level: Not on file Occupational History ??? 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 Smoking status: Former Smoker Packs/day: 0.50 Years: 30.00 Pack years: 15.00 Types: Cigarettes ??? Smokeless tobacco: Never Used Substance and Sexual Activity ??? Alcohol use: No Alcohol/week: 0.0 standard drinks Comment: Rarely ??? Drug use: No ??? Sexual activity: Yes Partners: Male Other Topics Concern ??? Service Not Asked ??? Blood Transfusions Not Asked ??? Caffeine Concern Not Asked ??? Occupational Exposure Not Asked ??? Hobby Hazards Not Asked ??? Sleep Concern Not Asked ??? Stress Concern Not Asked ??? Weight Concern Not Asked ??? Special Diet Not Asked ??? Back Care Not Asked ??? Exercise No ??? Bike Helmet Not Asked ??? Seat Belt Not Asked ??? Self-Exams Not Asked Social History Narrative ??? Not on file Social Determinants of Health Financial Resource Strain: Not on file Food Insecurity: Not on file Transportation Needs: Not on file Physical Activity: Not on file Stress: Not on file Social Connections: Not on file Intimate Partner Violence: Not on file Housing Stability: Not on file Very rare etoh No tobacco use Family History Problem Relation Name Age of Onset ??? Heart Failure Mother 63 heart attack ??? Hypercholesterolemia Mother ??? Heart Failure Father 48 heart attack ??? Cancer Maternal Grandmother laranyx ??? Cancer Maternal Grandfather lung ??? Diabetes Sister ??? Hypertension Sister ??? Colon Cancer after age 50 or unknown Maternal Uncle colon ??? Cancer - Other Maternal Uncle lung ??? Migraine Sister ??? Asthma Neg Hx ??? Eczema Neg Hx ??? Cancer - Breast Neg Hx ??? Cancer - Skin, Non Melanoma Neg Hx ??? Cancer - Skin, Melanoma Neg Hx ??? CVA Neg Hx ??? Hemophilia Neg Hx ??? Psoriasis Neg Hx ALLERGIES: Allergies Allergen Reactions ??? Latex ??? Sulfa Drugs ??? Adhesive Sensitivity Rash MEDICATIONS: Lucretia Rodriguez has a current medication list which includes the following prescription(s): amitriptyline, aspirin 81, atorvastatin, celecoxib, vitamin d, empagliflozin, furosemide, isosorbide mononitrate cr 24hr, levothyroxine, linaclotide, liraglutide, lisinopril, loratadine, melatonin, metformin, metoprolol tartrate ir, nitroglycerin, ondansetron, onetouch ultra, oxybutynin, pantoprazole ec,and tramadol. REVIEW OF SYSTEMS: Per HPI unless noted below: General ROS: negative Psychological ROS: negative Ophthalmic ROS: negative ENT ROS: negative Allergy and Immunology ROS: negative Hematological and Lymphatic ROS: negative Endocrine ROS: negative Respiratory ROS: no cough, shortness of breath, or wheezing Cardiovascular ROS: no chest pain or dyspnea on exertion Gastrointestinal ROS: per HPI Genito-Urinary ROS: no dysuria, trouble voiding, or hematuria Musculoskeletal ROS: negative Neurological ROS: no TIA or stroke symptoms Dermatological ROS: negative PHYSICAL EXAM: BP 130/85 Pulse 82 Wt 108 kg (238 lb) SpO2 95% Physical Exam: Gen: Alert, oriented, no distress, obese Skin: Unremarkable HEENT: normal Neck: normal Lungs: CTA bilaterally CV: RRR, no murmurs heard Abd: Soft, non tender, non distended, normal bowel sounds, no organomegaly Extr: No edema, no obvious inflammatory arthritis Neuro: No focal deficits LABS: Recent Labs Component Name 10/26/20 1456 04/18/20 1204 09/27/18 1054 05/26/18 0742 11/04/17 0750 SODIUM 140 140 142 143 142 POTASSIUM 3.9 3.7 4.3 4.9 4.4 CHLORIDE 97 102 104 102 102 CO2 24 23 29 22 20 BUN 12 17 14 16 11 CREATININE 1.02* 0.96 0.79 0.91 0.77 GLUCOSE 89 152* 85 89 119* Recent Labs Component Name 06/10/17 0727 05/27/16 1417 11/12/15 1047 07/31/15 0936 03/28/15 19401/23/15 1320 WBC 5.8 8.1 7.7 7.2 8.5 7.7 HGB 14.8 13.6 14.2 13.9 15.1 14.0 PLTCOUNT - 229 214 202 189 235 MCV 86 86.0 87.5 88.5 87.5 88 INR 1.0 - - - - - Recent Labs Component Name 10/26/20 1456 04/18/20 1204 09/27/18 1054 05/26/18 0742 11/04/17 0750 ALBUMIN 4.8 4.6 4.5 4.4 4.7 ALKPHOS 84 67 60 60 70 TBIL 0.6 0.4 0.4 0.3 0.3 AST 77* 42* 18 18 38 ALT 60* 47* 16 18 42* Recent Labs Component Name 06/10/17 0727 03/28/15 1949 08/26/13 1214 08/07/13 1305 LIPASE - 138 166 162 FERRITIN 95 - - - IRON 94 - - - ASSESSMENT/PLAN: Lucretia Rodriguez is a 56 year old female whom I am seeing for follow-up of BOONE, chronic GERD, sphincter of oddi dysfunction, and gastroparesis. 1. BOONE She has successfully lost 30 lb over the last year by making dietary changes. She has not had repeat LFTs in over a year. Her last right upper quadrant ultrasound with elastography in 2019 showed hepatic steatosis with no fibrosis. she rarely drinks alcohol. -Will update LFTs ?? -She will continue with dietary and lifestyle modifications with the goal of continued gradual weight loss. ?? 2. GERD and Dysphagia She will continue Protonix 40 mg q.a.m. her dysphagia resolved after dilation. We discussed trying to dose reduce her PPI, but the patient is not interested at this time. She will continue Protonix 40 mg q.day. She will contact the office in the future if she would liketo try and reduce the dose of this medication. She will continue with dietary and behavior modifications for reflux. She will notify the office for any recurrent dysphagia ?? 3. Chronic constipation continue Linzess 290 g q.day ?? 4. Sphincter of Omar dysfunction and gastroparesis Well controlled on amitriptyline 100 mg p.o. q.h.s.. Her weight has been stable. We discussed trying to reduce the dose of this medication, but the patient is not interested in this time. She will continue amitriptyline 100 mg p.o. q.h.s. Advised patient to keep fat intake less than 60 g per day She will contact the office in the future if she would like to try and reduce the dose of this medication. 5. Colorectal cancer screening repeat colonoscopy in June 2030 Scribed by Taylor Donohue NP for Dr. Rose I have discussed the above recommendations and their risks, benefits, and alternatives, with the patient and any family present, and all agreed with the plan. All questions were answered. documented in this encounter Plan of Treatment Upcoming Encounters Date Type Department Care Team (Late st Contact Info) Description 09/27/2024 2:20 PM UNDERWATER HUNTER TRAPPER Office Visit [facility] Neurosciences [address] [facility] [address] [place] [phone] [place] [address] [facility] [address] [place] [phone] 09/28/2024 1:00 PM UNDERWATER HUNTER TRAPPER Office Visit [facility] [place] [address] [place] [phone] [place] [address] [address] [facility] [address] [place] [address] documented as of this encounter Goals Goal Patient Goal Type Associated Problems Recent Progress Patient-Stated? Author Blood Pressure < 140/90 Blood Pressure 102/69(2022 11:30 AM UNDERWATER HUNTER TRAPPER) No Melinda Newsome Quit smoking / using tobacco Lifestyle No Melinda Newsome documented as of this encounter Procedures Procedure Name Priority Date/Time Associated Diagnosis Comments COMPREHENSIVE METABOLIC PANEL Routine 05/07/2022 2:40 PM CDT Elevated LFTs HEPATIC FUNCTION PANEL Routine 2:40 PM CDT Elevated LFTs documented in this encounter Results * (ABNORMAL) HEPATIC FUNCTION PANEL (05/07/2022 2:40 PM CDT) Bilirubin Direct 0.13 0.00 - 0.40 mg/dL [facility] ACCOUNT BILL Protein Total 6.9 6.0 - 8.5 g/dL [facility] ACCOUNT BILL Albumin 4.2 3.8 - 4.9 g/dL [facility] ACCOUNT BILL Bilirubin Total 0.4 0.0 - 1.2 mg/dL [facility] ACCOUNT BILL Alkaline Phosphatase 90 44 - 121 IU/L [facility] ACCOUNT BILL AST 42(H) 0 - 40 IU/L [facility] ACCOUNT BILL ALT 36(H) 0 - 32 IU/L [facility] ACCOUNT BILL Comment:FASTING Blood BLOOD SPECIMEN / Unknown 05/07/2022 2:40 PM CDT 07/25/2022 Narrative Resulting Agency Comment Lab Testing performed at: [facility] [place] [address] [facility] ??[facility] [id number] Mark Rose MD LAB - CHEMISTRY ORD ERABLES [facility] ACCOUNT BILL [address] [place] [address] * (ABNORMAL) COMPREHENSIVE METABOLIC PANEL (05/07/2022 2:40 [...] Agency Comment Lab Testing performed at: [address] ?? [facility] [id number] Taylor Donohue ACID CRANE OPERATOR-MOLD STAMPER LAB - CHEMISTRY ORDERABLES [facility] ACCOUNT BILL [address] [place] [address] documented in this encounter Visit Diagnoses Diagnosis Elevated LFTs- Primary Other abnormal blood chemistry BOONE (nonalcoholic steatohepatitis) Other chronic nonalcoholic liver disease Abdominal pain, RUQ (right upper quadrant) Abdominal pain, right upper quadrant Gastroparesis Gastroesophageal reflux disease without esophagitis Esophageal reflux documented in this encounter Care Teams Hazard Waste Handler Relationship Specialty Start Date End Date Naya Arriola PA-C [address] [place] [address] PCP - General Physician Seamer 01/19/20 Stevenson Almanza MD Neurology 08/16/14 [place] [address] [address] Pulmonary Disease 02/14/16 documented as of this encounter
--- OUTSIDE RECORDS SUMMARY | 2024-09-18 09:30 | XMS_ITS | Encounter Summary ---
Author Organization [facility] Address [address] [facility] [place] [address] Care Team Providers Care Trainman Name Role Phone Stevenson Almanza MD Unavailable [phone] Dequan Baxter MD Unavailable [phone] Naya Arriola PA-C Primary Care Provider + Reason for Visit * Reason Comments Refill Request Encounter Details Date Type Department Care Team (Late st Contact Info) Description 11/15/2022 Refill [facility] [place] [address] [facility] [address] [address] Taylor Donohue, CRYSTAL FINISHER-POOLING OPERATOR [address] [address] Refill Request Social History Tobacco [...] st Contact Info) Description 09/27/2024 2:20 PM SUPERVISOR ROVING DEPARTMENT Office Visit [facility] Neurosciences [address] [facility] [address] [place] [phone] [place] [address] [facility] [address] [place] [address] 09/28/2024 1:00 PM SUPERVISOR ROVING DEPARTMENT Office Visit [facility] Medical Group - [address] [address]hele Barrett, [address] [place] [address] [place] [address] [address] [place] [address] documented as of this encounter Goals Goal Patient Goal Type Associated Problems Recent Progress Patient-Stated? Author Blood Pressure < 140/90 Blood Pressure 102/69(2022 11:30 AM SUPERVISOR ROVING DEPARTMENT) No Melinda Newsome Quit smoking / using tobacco Lifestyle No Melinda Newsome documented as of this encounter Visit Diagnoses Not on filedocumented in this encounter Care Teams Trainman Relationship Specialty Start Date End Date Naya Arriola PA-C [address] [place] [phone] PCP - General Physician Gis Geographer 01/19/20 Stevenson Almanza MD Neurology 08/16/14 [place] [address] [address] Pulmonary Disease 02/14/16 documented as of this encounter
--- OUTSIDE RECORDS SUMMARY | 2024-09-18 09:30 | XMS_ITS | Encounter Summary ---
Author Organization [facility] Address [address] [address] Care Team Providers Care Button Station Worker Name Role Phone Stevenson Almanza MD Unavailable [phone] Dequan Baxter MD Unavailable [phone] Naya Arriola PA-C Primary Care Provider + Encounter Details Date Type Department Care Team (Latest Contact Info) Description 08/25/2023 Travel Social History Tobacco Use Types Packs/Day [...] st Contact Info) Description 09/27/2024 2:20 PM FISH HATCHERY INSPECTOR Office Visit [facility] Neurosciences [address] [facility] [address] [place] [address] [place] [address] [facility] [address] [facility] [address] [place] [phone] 09/28/2024 1:00 PM FISH HATCHERY INSPECTOR Office Visit [facility] [place] [address] [facility] , [address] [place] [address] [place] [address] [address] [facility] [address] [place] [address] documented as of this encounter Goals Goal Patient Goal Type Associated Problems Recent Progress Patient-Stated? Author Blood Pressure < 140/90 Blood Pressure 102/69(2022 11:30 AM FISH HATCHERY INSPECTOR) No Melinda Newsome Quit smoking / using tobacco Lifestyle No Melinda Newsome documented as of this encounter Visit Diagnoses Not on filedocumented in this encounter Care Teams Button Station Worker Relationship Specialty Start Date End Date Naya Arriola PA-C [address] [place] [phone] PCP - General Physician Metallurgist Helper 01/19/20 Stevenson Almanza MD Neurology 08/16/14 [place] [address] [facility] [address] [place] [address] Pulmonary Disease 02/14/16 documented as of this encounter
--- OUTSIDE RECORDS SUMMARY | 2024-09-18 09:30 | XMS_ITS | Encounter Summary ---
Author Organization [facility] Address [address] [facility] [place] [address] Care Team Providers Care Head Field Hockey Coach Name Role Phone Stevenson Almanza MD Unavailable [phone] Dequan Baxter MD Unavailable [phone] Naya Arriola PA-C Primary Care Provider + Encounter Details Date Type Department Care Team (Latest Contact Info) Description 04/22/2022 Travel Social History Tobacco Use Types Packs/Day [...] PM CDT documented as of this encounter Functional [...] No 10/23/2014 Cognitive Status Response Date of Assess ent Does person have difficulty concentrating/remembering/making decisions? No 10/23/2014 documented as of this encounter Plan of Treatment Upcoming Encounters Date Type Department Care Team (Late st Contact Info) Description 09/27/2024 2:20 PM ELECTRICAL SYSTEMS DESIGNER Office Visit [facility] Neurosciences [address] [place] [address] [place] [address] [place] [address] 09/28/2024 1:00 PM ELECTRICAL SYSTEMS DESIGNER Office Visit [facility] [place] [address] [address] , [address] [place] [address] [place] [address] [address] [facility] [address] [place] [address] documented as of this encounter Goals Goal Patient Goal Type Associated Problems Recent Progress Patient-Stated? Author Blood Pressure < 140/90 Blood Pressure 102/69(2022 11:30 AM ELECTRICAL SYSTEMS DESIGNER) No Melinda Newsome Quit smoking / using tobacco Lifestyle No Melinda Newsome documented as of this encounter Visit Diagnoses Not on filedocumented in this encounter Care Teams Head Field Hockey Coach Relationship Specialty Start Date End Date Naya Arriola PA-C [address] [place] [phone] PCP - General Physician Manager Cardiac 01/19/20 Stevenson Almanza MD Neurology 08/16/14 [place] [address] [place] [address] Pulmonary Disease 02/14/16 documented as of this encounter
--- OUTSIDE RECORDS SUMMARY | 2024-09-18 09:30 | XMS_ITS | Encounter Summary ---
Author Organization [facility] Health Address [address] [place] [address] Care Team Providers Care Coat Tailor Name Role Phone Stevenson Almanza MD Unavailable Dequan Baxter MD Unavailable [phone] Naya Arriola PA-C Primary Care Provider + Reason for Visit * Reason Comments Multiple Sclerosis Follow-up Encounter Details Date Type Department Care Team (Late st Contact Info) Description 04/28/2023 1:00 PM CDT Office Visit [facility] Neurosciences [address] [address] [place] [address] [facility] SARAN [address] [place] [address] Multiple sclerosis (HCC) (Primary Dx); LISSETTE (obstructive sleep apnea) Social History Tobacco Use Types Packs/Day Years [...] AM CDT documented as of this encounter Last Filed Vital Signs Vital Sign Reading Time Taken Comments Blood Pressure 138/82 04/28/2023 1:00 PM CDT Pulse 92 04/28/2023 1:00 PM CDT Temperature - - Respiratory Rate 14 04/28/2023 1:00 PM CDT Oxygen Saturation 95% 04/28/2023 1:00 PM CDT Inhaled Oxygen Concentration - - Weight 106.1 kg (234 lb) 04/28/2023 1:00 PM CDT Height 160 cm (5' 3 ) 04/28/2023 1:00 PM CDT Body Mass Index 41.45 04/28/2023 1:00 PM CDT documented in this encounter Functional [...] No 10/23/2014 documented as of this encounter Progress Notes * Stevenson Almanza MD - 04/28/2023 1:12 PM CDT CC: MS IH: Yearly OV. Doing well. No MS issues except feels weak in the heat. No DMTs. Bladder is OK. Vision is OK. Saw eye Dr last week. Not using CPAP. Diagnosis was 2005 and no issues since. Last MRI was 2020 and no change to 2018. Outpatient Medications Marked as Taking for the 04/28/23 encounter (Office Visit) with Stevenson Almanza MD Medication Sig Dispense Refill ??? amitriptyline (Elavil) 100 MG tablet TAKE 1 TABLET BY MOUTH EVERYDAY AT BEDTIME 30 tablet 2 ??? ASPIRIN 81 81 MG tablet once daily ??? atorvastatin (LIPITOR) 40 MG tablet Take 1 (one) tablet by mouth once daily ??? canagliflozin (Invokana) 100 MG tablet Take 1 (one) tablet by mouth daily before breakfast ??? celecoxib (CeleBREX) 100 MG capsule Take 1 (one) capsule by mouth once daily ??? Cholecalciferol (VITAMIN D) 1000 UNIT capsule Take 5 (five) capsules by mouth once daily ??? furosemide (Lasix) 20 MG tablet Take 1 (one) tablet by mouth once daily ??? isosorbide mononitrate CR 24hr (IMDUR) 30 MG tablet Take 1 (one) tablet by mouth once daily ??? levothyroxine (SYNTHROID) 88 MCG tablet TAKE ONE TABLET BY MOUTH ONCE DAILY BEFORE BREAKFAST 90Tab 3 ??? linaCLOtide (Linzess) 290 MCG capsule TAKE ONE CAPSULE BY MOUTH ONCE DAILY ON AN EMPTY STOMACH AT LEAST 30 MINUTES PRIOR TO FIRST MEAL OF THE DAY 90 capsule 3 ??? lisinopril (PRINIVIL; ZESTRIL) 40 MG tablet TAKE ONE TABLET BY MOUTH ONCE DAILY (Patient takingdifferently: Take 0.5 (one-half) tablet by mouth once daily) 30 Tab 3 ??? loratadine (Claritin) 10 MG tablet Take 1 (one) tablet by mouth once daily ??? melatonin 5 MG tablet Take 1 (one) tablet by mouth at bedtime ??? metFORMIN (GLUCOPHAGE) 500 MG tablet TAKE ONE TABLET BY MOUTH ONCE DAILY (Patient taking differently: Take 2 (two) tablets by mouth 2 times daily with morning and evening meal) 90 Tab 1 ??? metoprolol tartrate (LOPRESSOR) 50 MG tablet TAKE ONE TABLET BY MOUTH TWICE A DAY 180 Tab 1 ??? nitroGLYCERIN (NITROSTAT) 0.4 MG tablet Dissolve 1 (one) tablet under the tongue every 5 minutes as needed for Angina ??? ondansetron (Zofran) 8 MG tablet TAKE 1 TABLET BY MOUTH EVERY 8 HOURS NEEDED FOR NAUSEA AND VOMITING 60 tablet 5 ??? OneTouch Ultra test strip USE TO CHECK BLOOD SUGAR TWICE DAILY ??? oxybutynin (Ditropan) 5 MG tablet Take 1 (one) tablet by mouth 3 times daily ??? pantoprazole EC (Protonix) 40 MG tablet Take 1 (one) tablet by mouth daily before breakfast 90 tablet 0 ??? Rybelsus 14 MG tablet Take 1 (one) tablet by mouth once daily ??? traMADol (ULTRAM) 50 MG tablet Take 1 (one) tablet by mouth once daily Past Medical History: Diagnosis Date ??? Anemia ??? Anxiety ??? Depressive disorder, not elsewhere classified ??? Diabetes (CMS/HCC) ??? Generalized anxiety disorder ??? H/O heart artery stent 2010 [id number] LAD( ) mercy ??? H/O laparoscopic adjustable gastric banding 2009 ??? Heart attack (CMS/HCC) 2010 ??? HTN (hypertension) ??? Hyperlipemia ??? Hypertension ??? Hypothyroid ??? Migraine ??? Multiple sclerosis (CMS/HCC) 2005 Dr. Almanza ??? LISSETTE (obstructive sleep apnea) ??? S/P tonsillectomy ??? Stomach ulcer ??? Tension headache Exam: BP 138/82 Pulse 92 Resp 14 Ht 1.6 m (5' 3 ) Wt 106.1 kg (234 lb) SpO2 95% .Cognitively: Alert and oriented times 3. Attention and concentration, fund of knowledge, recent and remote memory and central language function are intact. Cranial Nerves: II: Full field of vision to confrontation. IIl, lV, Vl:Extraocular movements intact. PERRL V: Normal motor and sensory function VII: Normal facial movement and symmetry VIII: Intact hearing to confrontation lX , X: Palate midline and elevates normally. Normal gag Xl: Normal shoulder shrug XII: Tongue midline and protrudes normally without atrophy Neck: Without bruits Motor: Normal tone, power and bulk Sensory: Intact to touch and vibration Muscle stretch reflexes symmetric at 1/1 at the biceps, triceps, brachioradialis, knees and ankles.Toes down Cerebellum: intact on finger to nose. Casual gait: normal station and gait ASSESSMENT: MS Untreated LISSETTE PLAN: Follow clinically (she is agreeable) Call if new symptoms Yearly OV documented in this encounter Plan of Treatment Upcoming Encounters Date Type Department Care Team (Late st Contact Info) Description 09/27/2024 2:20 PM LIEUTENANT GENERAL Office Visit [facility] [employer] Neurosciences [address] [facility] [address] [place] [address] [place] [address] [facility] SARAN [address] [place] [phone] 09/28/2024 1:00 PM LIEUTENANT GENERAL Office Visit [facility] [place] [address] DePaul , [facility] [address] [place] [address] [place] [address] [address] [address] documented as of this encounter Goals Goal Patient Goal Type Associated Problems Recent Progress Patient-Stated? Author Blood Pressure < 140/90 Blood Pressure 102/69(2022 11:30 AM LIEUTENANT GENERAL) No Melinda Newsome Quit smoking / using tobacco Lifestyle No Melinda Newsome documented as of this encounter Visit Diagnoses Diagnosis Multiple sclerosis (HCC)- Primary Multiple sclerosis LISSETTE (obstructive sleep apnea) Obstructive sleep apnea (adult) (pediatric) documented in this encounter Care Teams Coat Tailor Relationship Specialty Start Date End Date Naya Arriola PA-C [address] [place] [phone] PCP - General Physician Supervisor Steno Pool 01/19/20 Stevenson Almanza MD Neurology 08/16/14 [place] [address] [facility] [address] [place] [address] Pulmonary Disease 02/14/16 documented as of this encounter
--- OUTSIDE RECORDS SUMMARY | 2024-09-18 09:30 | XMS_ITS | Encounter Summary ---
Author Organization [facility] Address [address] [place] [address] Care Team Providers Care Card Tender Name Role Phone Stevenson Almanza MD Unavailable [phone] Dequan Baxter MD Unavailable [phone] Naya Arriola PA-C Primary Care Provider + Encounter Details Date Type Department Care Team (Late st Contact Info) Description 05/10/[address] [facility] [place] [address] [address] [address] [place] [address] [address] [address] Fatty liver Social History Tobacco Use Types Packs/Day Years [...] st Contact Info) Description 09/27/2024 2:20 PM COMMERCIAL CONSTRUCTION PROJECT MANAGER Office Visit [facility] Neurosciences [address] [facility] [address] [place] [phone] [place] [address] [facility] SARAN [address] [place] [address] 09/28/2024 1:00 PM COMMERCIAL CONSTRUCTION PROJECT MANAGER Office Visit [facility] [place] [address] DePmoris Barrett, [facility] [address] [place] [address] [place] [address] [address]TT SARAN [address] [place] [address] documented as of this encounter Goals Goal Patient Goal Type Associated Problems Recent Progress Patient-Stated? Author Blood Pressure < 140/90 Blood Pressure 102/69(2022 11:30 AM COMMERCIAL CONSTRUCTION PROJECT MANAGER) No Melinda Newsome Quit smoking / using tobacco Lifestyle No Melinda Newsome documented as of this encounter Procedures Procedure Name Priority Date/Time Associated Diagnosis Comments HEPATIC FUNCTION PANEL Routine 05/22/2023 4:41 PM CDT Fatty liver documented in this encounter Results * HEPATIC FUNCTION PANEL [...] Resulting Agency Comment Lab Testing performed at: [address] ?? [facility] [id number] Mark Rose MD LAB - CHEMISTRY ORD ERABLES [facility] INSURANCE BILL [address] [place] [address] documented in this encounter Visit Diagnoses Diagnosis Fatty liver Other chronic nonalcoholic liver disease documented in this encounter Care Teams Card Tender Relationship Specialty Start Date End Date Naya Arriola PA-C [address] [place] [phone] PCP - General Physician Radiology Aide 01/19/20 Stevenson Almanza MD Neurology 08/16/14 [place] [address] [facility] [address] [place] [address] Pulmonary Disease 02/14/16 documented as of this encounter
--- OUTSIDE RECORDS SUMMARY | 2024-09-18 09:30 | XMS_ITS | Encounter Summary ---
Author Organization [facility] Address [address] [facility] [place] [address] Care Team Providers Care Knot Bumper Name Role Phone Stevenson Almanza MD Unavailable [phone] Dequan Baxter MD Unavailable [phone] Naya Arriola PA-C Primary Care Provider + Reason for Visit * Reason Onset Date Comments MEDICATION REFILL 03/08/2022 Encounter Details Date Type Department Care Team (Late st Contact Info) Description 03/08/2022 Refill [facility] [employer] [facility] [address] [facility], [address] [address] [place] [address] [facility] [address] [address] MEDICATION REFILL Social History Tobacco [...] st Contact Info) Description 09/27/2024 2:20 PM SALES SERVICE SUPERVISOR Office Visit [facility] Neurosciences [address] [facility] [address] [place] [phone] [place] [address] [facility] JUAN ALBERTO [address] [place] [phone] 09/28/2024 1:00 PM SALES SERVICE SUPERVISOR Office Visit [facility] - [address] Michele Barrett, Juan Alberto [address] [place] [address] [place] [address] MICHELE BARRETT JUAN AL[address]ERTO [address] [place] [address] documented as of this encounter Goals Goal Patient Goal Type Associated Problems Recent Progress Patient-Stated? Author Blood Pressure < 140/90 Blood Pressure 102/69(2022 11:30 AM SALES SERVICE SUPERVISOR) No Melinda Newsome Quit smoking / using tobacco Lifestyle No Melinda Newsome documented as of this encounter Visit Diagnoses Not on filedocumented in this encounter Care Teams Knot Bumper Relationship Specialty Start Date End Date Naya Arriola PA-C [address] [place] [address] PCP - General Physician Realty Specialist 01/19/20 Stevenson Almanza MD Neurology 08/16/14 [place] [address] [address] Pulmonary Disease 02/14/16 documented as of this encounter
--- OUTSIDE RECORDS SUMMARY | 2024-09-18 09:30 | XMS_ITS | Encounter Summary ---
Author Organization [facility] Address [address] [facility] [place] [address] Care Team Providers Care Production Engine Repairer Name Role Phone Stevenson Almanza MD Unavailable [phone] Dequan Baxter MD Unavailable [phone] Naya Arriola PA-C Primary Care Provider + Reason for Visit * Reason Onset Date Comments Results 06/06/2024 Encounter Details Date Type Department Care Team (Late st Contact Info) Description 06/06/2024 Telephone [facility] Medical [facility] - [address] [place] , [address] [address] Taylor Donohue, ASSEMBLY LINE UPHOLSTERER-TEASEL GIG OPERATOR [address] [address] Results Social History Tobacco Use [...] encounter Miscellaneous Notes * Telephone Encounter - Akosua Huddleston RN - 06/06/2024 1:42 PM CDT MyChart message sent * Telephone Encounter - Akosua Huddleston RN - 06/06/2024 1:38 PM CDT ----- Message from SARAN Knight sent at 06/05/2024 3:48 PM CDT ----- Findings Liver enzymes are normal Recs Continue with dietary and lifestyle changes w/ the goal of gradual weight loss Repeat LFTs in 6 months documented in this encounter Plan of Treatment Upcoming Encounters Date Type Department Care Team (Late st Contact Info) Description 09/27/2024 2:20 PM SOFTWARE CONTROLS ENGINEER Office Visit [facility] Health Neurosciences [address] [address] [place] [address] [facility] [address] [place] [address] 09/28/2024 1:00 PM SOFTWARE CONTROLS ENGINEER Office Visit [facility] [place] [address] Michele Barrett [facility] [address] [place] [address] [place] [address] MICHELE BARRETT [facility] [address] [place] [address] Scheduled Orders Name Type Priority Associated Diagnoses Orde r Schedule HEPATIC FUNCTION PANEL Lab Routine BOONE (nonalcoholic steatohepatitis) Expected: 12/04/2024, Expires: 07/06/2025 documented as of this encounter Goals Goal Patient Goal Type Associated Problems Recent Progress Patient-Stated? Author Blood Pressure < 140/90 Blood Pressure 102/69(2022 11:30 AM SOFTWARE CONTROLS ENGINEER) No Melinda Newsome Quit smoking / using tobacco Lifestyle No Melinda Newsome documented as of this encounter Visit Diagnoses Diagnosis BOONE (nonalcoholic steatohepatitis)- Primary Other chronic nonalcoholic liver disease documented in this encounter Care Teams Production Engine Repairer Relationship Specialty Start Date End Date Naya Arriola PA-C [facility] [place] [address] PCP - General Physician Solar Project Engineer 01/19/20 Stevenson Almanza MD Neurology 08/16/14 [place] [address] [address] Pulmonary Disease 02/14/16 documented as of this encounter
--- OUTSIDE RECORDS SUMMARY | 2024-09-18 09:30 | XMS_ITS | Encounter Summary ---
Author Organization [facility] Address [address] [place] [address] Care Team Providers Care Licensing Officer Name Role Phone Stevenson Almanza MD Unavailable [phone] Dequan Baxter MD Unavailable [phone] Naya Arriola PA-C Primary Care Provider + Reason for Visit * Reason Onset Date Comments Results 05/08/2022 Encounter Details Date Type Department Care Team (Late st Contact Info) Description 05/08/2022 Telephone [facility] Medical [facility] - [address] Michele Barrett [address] [address] [place] [address] [address] BARRETT [address] [address] Results Social History Tobacco Use [...] Telephone Encounter - Augustine Crane RN - 05/08/2022 10:07 AM CDT ----- Message from SARAN Knight sent at 05/07/2022 6:54 PM CDT Hi Larisa, ?? I have reviewed your blood work. Your liver enzymes are now normal, which is great! Keep up ??with the healthy diet and gradual weight loss. We will plan on repeating your liver enzymes in 6 months. The office will send you a reminder at that time. Contact the office if you have any additional questions. ?? Have a good night, ?? Taylor Donohue NP Written by SARAN Knight on 05/07/2022 ??6:54 PM CDT Seen by patient Larisa Rodriguez on 05/07/2022 ??7:20 PM Labs and reminder added, documented in this encounter Plan of Treatment Upcoming Encounters Date Type Department Care Team (Late st Contact Info) Description 09/27/2024 2:20 PM COMMUNICATIONS PROJECT MANAGER Office Visit [facility] Health Neurosciences [address] [address] [place] [address] [facility] JUAN ALBERTO [address] [place] [address] 09/28/2024 1:00 PM COMMUNICATIONS PROJECT MANAGER Office Visit [facility] Medical [facility] [place] [address] Juan Alberto [address] [place] [address] [place] [address] MICHELE BARRETT JUAN ALBERTO [address] [place] [address] documented as of this encounter Goals Goal Patient Goal Type Associated Problems Recent Progress Patient-Stated? Author Blood Pressure < 140/90 Blood Pressure 102/69(2022 11:30 AM COMMUNICATIONS PROJECT MANAGER) No Melinda Newsome Quit smoking / using tobacco Lifestyle No Melinda Newsome documented as of this encounter Results * HEPATIC FUNCTION PANEL (11/08/2022 9:20 AM COMMUNICATIONS PROJECT MANAGER) Protein Total 7.4 6.0 - 8.5 g/dL [facility] ACCOUNT BILL Albumin 4.6 3.8 - 4.9 g/dL [facility] ACCOUNT BILL Bilirubin Total 0.4 0.0 - 1.2 mg/dL [facility] ACCOUNT BILL Bilirubin Direct 0.16 0.00 - 0.40 mg/dL [facility] ACCOUNT BILL Alkaline Phosphatase 90 44 - 121 IU/L [facility] ACCOUNT BILL AST 25 0 - 40 IU/L [facility] ACCOUNT BILL ALT 24 0 - 32 IU/L [facility] ACCOUNT BILL Blood BLOOD SPECIMEN / Unknown 11/08/2022 9:20 AM COMMUNICATIONS PROJECT MANAGER 11/08/2022 Narrative Resulting Agency Comment Lab Testing performed at: [facility] [address] [facility] [id number] Mark Rose MD LAB - CHEMISTRY ORD ERABLES [facility] ACCOUNT BILL [address] [place] [address] documented in this encounter Visit Diagnoses Diagnosis BOONE (nonalcoholic steatohepatitis)- Primary Other chronic nonalcoholic liver disease documented in this encounter Care Teams Licensing Officer Relationship Specialty Start Date End Date Naya Arriola PA-C [address] [place] [address] PCP - General Physician Repairer Hairspring 01/19/20 Stevenson Almanza MD Neurology 08/16/14 [place] [address] [place] [phone] Pulmonary Disease 02/14/16 documented as of this encounter
--- OUTSIDE RECORDS SUMMARY | 2024-09-18 09:30 | XMS_ITS | Encounter Summary ---
Author Organization [facility] Health Address [address] [facility] [address] [place] [address] Care Team Providers Care Crater And Packer Name Role Phone Stevenson Almanza MD Unavailable [phone] Dequan Baxter MD Unavailable [phone] Naya Arriola PA-C Primary Care Provider + Reason for Visit * Reason Comments Multiple Sclerosis Follow-up Encounter Details Date Type Department Care Team (Late st Contact Info) Description 04/22/2022 2:00 PM CDT Office Visit [facility] Health Neurosciences [address] [address] [place] [address] [facility] SARAN [address] [place] [address] ERRONEOUS ENCOUNTER--DISREGARD (Primary Dx) Social History Tobacco Use Types Packs/Day Years [...] Sign Reading Time Taken Comments Blood Pressure 130/86 04/22/2022 2:45 PM CDT Pulse 96 04/22/2022 2:45 PM CDT Temperature - - Respiratory Rate 14 04/22/2022 2:45 PM CDT Oxygen Saturation 96% 04/22/2022 2:45 PM CDT Inhaled Oxygen Concentration - - Weight 106.6 kg (235 lb) 04/22/2022 2:45 PM CDT Height 160 cm (5' 3 ) 04/22/2022 2:45 PM CDT Body Mass Index 41.63 04/22/2022 2:45 PM CDT documented in this [...] as of this encounter Progress Notes * Yolanda Burch - 05/05/2022 9:25 AM CDT ERRONEOUS ENCOUNTER documented in this encounter Plan of Treatment Upcoming Encounters Date Type Department Care Team (Late st Contact Info) Description 09/27/2024 2:20 PM FINANCIAL INSTITUTION BRANCH MANAGER Office Visit [facility] Health Neurosciences [address] [facility] [address] [place] [address] [place] [address] [facility] [address] [place] [address] 09/28/2024 1:00 PM FINANCIAL INSTITUTION BRANCH MANAGER Office Visit [facility] [place] [address] [facility] , [address] [address] [place] [address] [facility] [address] [place] [address] documented as of this encounter Goals Goal Patient Goal Type Associated Problems Recent Progress Patient-Stated? Author Blood Pressure < 140/90 Blood Pressure 102/69(2022 11:30 AM FINANCIAL INSTITUTION BRANCH MANAGER) No Melinda Newsome Quit smoking / using tobacco Lifestyle No Melinda Newsome documented as of this encounter Visit Diagnoses Diagnosis ERRONEOUS ENCOUNTER--DISREGARD- Primary documented in this encounter Care Teams Crater And Packer Relationship Specialty Start Date End Date Naya Arriola PA-C [address] [place] [address] PCP - General Physician An/Syq 13 Nav/C2 Operator 01/19/20 Stevenson Almanza MD Neurology 08/16/14 [place] [address] [facility] [address] [place] [address] Pulmonary Disease 02/14/16 documented as of this encounter
--- OUTSIDE RECORDS SUMMARY | 2024-09-18 09:30 | XMS_ITS | Encounter Summary ---
Author Organization [facility] Address [address] [facility] [place] [address] Care Team Providers Care Locks Tender Name Role Phone Stevenson Almanza MD Unavailable [phone] Dequan Baxter MD Unavailable [phone] Naya Arriola PA-C Primary Care Provider + Reason for Visit * Reason Comments Refill Request Encounter Details Date Type Department Care Team (Late st Contact Info) Description 07/31/2022 Refill [facility] Medical Group [id number] [place] [address] [place] [address] [address] Refill Request Social History Tobacco Use [...] st Contact Info) Description 09/27/2024 2:20 PM FEED AND FARM MANAGEMENT ADVISER Office Visit [facility] Neurosciences [address] [facility] [address] [place] [phone] [place] [address] [facility] JUAN ALBERTO [address] [place] [address] 09/28/2024 1:00 PM FEED AND FARM MANAGEMENT ADVISER Office Visit [facility] [place] [address] De[address] Barrett, Juan Alberto [address] [place] [address] [place] [address] [address] JUAN [address]ERT[address] [place] [address] documented as of this encounter Goals Goal Patient Goal Type Associated Problems Recent Progress Patient-Stated? Author Blood Pressure < 140/90 Blood Pressure 102/69(2022 11:30 AM FEED AND FARM MANAGEMENT ADVISER) No Melinda Newsome Quit smoking / using tobacco Lifestyle No Melinda Newsome documented as of this encounter Visit Diagnoses Not on filedocumented in this encounter Care Teams Locks Tender Relationship Specialty Start Date End Date Naya Arriola PA-C [address] [place] [address] PCP - General Physician Cnc Operator Programmer 01/19/20 Stevenson Almanza MD Neurology 08/16/14 [place] [address] [address] Pulmonary Disease 02/14/16 documented as of this encounter
--- OUTSIDE RECORDS SUMMARY | 2024-09-18 09:30 | XMS_ITS | Encounter Summary ---
Author Organization [facility] Address [address] [facility] [address] Care Team Providers Care Software Quality Test Engineer Name Role Phone Stevenson Almanza MD Unavailable [phone] Dequan Baxter MD Unavailable [phone] Naya Arriola PA-C Primary Care Provider + Reason for Visit * Reason Onset Date Comments Results 11/30/2023 Encounter Details Date Type Department Care Team (Late st Contact Info) Description 11/30/2023 Telephone [facility] Medical [facility] - [address] [address] , [address] [address] Taylro Donohue, LICENSED EMBALMER-SENIOR BI DEVELOPER [address] [address] Results Social History Tobacco Use [...] Telephone Encounter - Augustine Crane RN - 11/30/2023 9:31 AM CDT ----- Message from SARAN Knight sent at 11/29/2023 9:29 AM CDT ----- Findings Liver enzymes remain normal Recs Continue w/ dietary and lifestyle modifications with the goal of gradual weight loss Repeat LFTs in 6 months. documented in this encounter Plan of Treatment Upcoming Encounters Date Type Department Care Team (Late st Contact Info) Description 09/27/2024 2:20 PM TWISTING PRESS OPERATOR Office Visit [facility] Neurosciences [address] [address] [place] [address] [phone] 09/28/2024 1:00 PM TWISTING PRESS OPERATOR Office Visit [facility] [address] Michele Barrett, [address] [address] [place] [address] [address] [address] documented as of this encounter Goals Goal Patient Goal Type Associated Problems Recent Progress Patient-Stated? Author Blood Pressure < 140/90 Blood Pressure 102/69(2022 11:30 AM TWISTING PRESS OPERATOR) No Melinda Newsome Quit smoking / using tobacco Lifestyle No Melinda Newsome documented as of this encounter Results * HEPATIC FUNCTION PANEL (06/04/2024 10:23 AM CDT) Protein Total 6.6 6.0 - 8.5 g/dL [facility] INSURANCE BILL Albumin 4.5 3.8 - 4.9 g/dL [facility] INSURANCE BILL Bilirubin Total 0.4 0.0 - 1.2 mg/dL [facility] INSURANCE BILL Bilirubin Direct 0.12 0.00 - 0.40 mg/dL [facility] INSURANCE BILL Alkaline Phosphatase 71 44 - 121 IU/L [facility] INSURANCE BILL AST 37 0 - 40 IU/L [facility] INSURANCE BILL ALT 32 0 - 32 IU/L [facility] INSURANCE BILL Blood BLOOD SPECIMEN / Unknown 06/04/2024 10:23 AM CDT 06/04/2024 Narrative [facility] INSURANCE BILL - 06/05/2024 8:09 AM CDT Performed at: ??01 - [facility] [address] [place], [place] ??[id number] Commodity Buyer: Gilberto Malhotra PhD, Phone: ??[phone] Taylor Donohue LICENSED EMBALMER-SENIOR BI DEVELOPER LAB - CHEMISTRY ORDERABLES Performing Organization Address City/State/[facility] Co de Phone Number [facility] INSURANCE BILL [address] [place] [address] documented in this encounter Visit Diagnoses Diagnosis BOONE (nonalcoholic steatohepatitis)- Primary Other chronic nonalcoholic liver disease BOONE (nonalcoholic steatohepatitis) Other chronic nonalcoholic liver disease documented in this encounter Care Teams Software Quality Test Engineer Relationship Specialty Start Date End Date Naya Arriola PA-C [address] [place] [address] PCP - General Physician Buffing And Polishing Wheel Repairer 01/19/20 Stevenson Almanza MD Neurology 08/16/14 [place] [address] [place] [address] Pulmonary Disease 02/14/16 documented as of this encounter
--- OUTSIDE RECORDS SUMMARY | 2024-09-18 09:30 | XMS_ITS | Encounter Summary ---
Author Organization [facility] Address [address] [facility] [place] [address] Care Team Providers Care Soap Boiler Name Role Phone Stevenson Almanza MD Unavailable [phone] Dequan Baxter MD Unavailable Naya Arriola PA-C Primary Care Provider + Encounter Details Date Type Department Care Team (Late st Contact Info) Description 05/29/2024 Orders Only [facility] [place] [address], [address] [address] Taylor Donohue, SPECIAL EFFECTS PERSON-PLANER OFF BEARER [address] [address] BOONE (nonalcoholic steatohepatitis) Social History Tobacco Use Types Packs/Day Years [...] st Contact Info) Description 09/27/2024 2:20 PM JOB TRAINING SPECIALIST Office Visit [facility] Neurosciences [address] [facility] [address] [place] [phone] [place] [address] [facility] [address] [place] [address] 09/28/2024 1:00 PM JOB TRAINING SPECIALIST Office Visit [facility] [place] [address] [address] , Juan [address] [place] [address] [place] [address] [address] [place] [address] documented as of this encounter Goals Goal Patient Goal Type Associated Problems Recent Progress Patient-Stated? Author Blood Pressure < 140/90 Blood Pressure 102/69(2022 11:30 AM JOB TRAINING SPECIALIST) No Melinda Newsome Quit smoking / using tobacco Lifestyle No Melinda Newsome documented as of this encounter Procedures Procedure Name Priority Date/Time Associated Diagnosis Comments HEPATIC FUNCTION PANEL Routine 06/04/2024 10:23 AM CDT BOONE (nonalcoholic steatohepatitis) documented in this encounter Results * HEPATIC [...] 8:09 AM CDT Performed at: ??01 - [facility] [address] [place], [place] ??[id number] Hazmat Truck Driver: Gilberto Malhotra PhD, Phone: ??[phone] Taylor Donohue SPECIAL EFFECTS PERSON-PLANER OFF BEARER LAB - CHEMISTRY ORDERABLES [facility] INSURANCE BILL [address] [place] [address] documented in this encounter Visit Diagnoses Diagnosis BOONE (nonalcoholic steatohepatitis) Other chronic nonalcoholic liver disease documented in this encounter Care Teams Soap Boiler Relationship Specialty Start Date End Date Naya Arriola PA-C [address] [place] [phone] PCP - General Physician Traffic Investigator 01/19/20 Stevenson Almanza MD Neurology 08/16/14 [place] [address] [address] Pulmonary Disease 02/14/16 documented as of this encounter
--- OUTSIDE RECORDS SUMMARY | 2024-09-18 09:30 | XMS_ITS | Encounter Summary ---
Author Organization [facility] Address [address] [facility] [place] [address] Care Team Providers Care Printing Press Machine Operator Name Role Phone Stevenson Almanza MD Unavailable [phone] Dequan Baxter MD Unavailable [phone] Naya Arriola PA-C Primary Care Provider + Encounter Details Date Type Department Care Team (Latest Contact Info) Description 04/28/2023 Travel Social History Tobacco Use Types Packs/Day [...] st Contact Info) Description 09/27/2024 2:20 PM BINDER FOLDER OPERATOR Office Visit [facility] Health Neurosciences [address] [facility] [address] [place] [address] [place] [address] [facility] [facility] [address] [place] [address] 09/28/2024 1:00 PM BINDER FOLDER OPERATOR Office Visit [facility] [place] [address] [address] , Juan [address] [place] [address] [place] [address] [address] [facility] [address] [place] [address] documented as of this encounter Goals Goal Patient Goal Type Associated Problems Recent Progress Patient-Stated? Author Blood Pressure < 140/90 Blood Pressure 102/69(2022 11:30 AM BINDER FOLDER OPERATOR) No Melinda Newsome Quit smoking / using tobacco Lifestyle No Melinda Newsome documented as of this encounter Visit Diagnoses Not on filedocumented in this encounter Care Teams Printing Press Machine Operator Relationship Specialty Start Date End Date Naya Arriola PA-C [address] [place] [phone] PCP - General Physician Java Designer 01/19/20 Stevenson Almanza MD Neurology 08/16/14 [place] [address] [place] [address] Pulmonary Disease 02/14/16 documented as of this encounter
--- OUTSIDE RECORDS SUMMARY | 2024-09-18 09:30 | XMS_ITS | Encounter Summary ---
Author Organization [facility] Address [address] [facility] [place] [address] Care Team Providers Care Respooler Name Role Phone Stevenson Almanza MD Unavailable [phone] Dequan Baxter MD Unavailable [phone] Naya Arriola PA-C Primary Care Provider + Encounter Details Date Type Department Care Team (Latest Contact Info) Description 05/06/2023 Travel Social History Tobacco Use Types Packs/Day [...] st Contact Info) Description 09/27/2024 2:20 PM VICE PRESIDENT OF NEWS Office Visit [facility] Health Neurosciences [address] [facility] [address] [place] [address] [place] [address] [facility] [address] [place] [address] 09/28/2024 1:00 PM VICE PRESIDENT OF NEWS Office Visit [facility] [place] [address] [address] , Juan [address] [place] [address] [place] [address] [address] [facility] [address] [place] [address] documented as of this encounter Goals Goal Patient Goal Type Associated Problems Recent Progress Patient-Stated? Author Blood Pressure < 140/90 Blood Pressure 102/69(2022 11:30 AM VICE PRESIDENT OF NEWS) No Melinda Newsome Quit smoking / using tobacco Lifestyle No Melinda Newsome documented as of this encounter Visit Diagnoses Not on filedocumented in this encounter Care Teams Respooler Relationship Specialty Start Date End Date Naya Arriola PA-C [address] [place] [phone] PCP - General Physician Playroom Attendant 01/19/20 Stevenson Almanza MD Neurology 08/16/14 [place] [address] [place] [address] Pulmonary Disease 02/14/16 documented as of this encounter
--- OUTSIDE RECORDS SUMMARY | 2024-09-18 09:30 | XMS_ITS | Encounter Summary ---
Author Organization [facility] Address [address] [facility] [place] [address] Care Team Providers Care Theatrical Variety Agent Name Role Phone Stevenson Almanza MD Unavailable [phone] Dequan Baxter MD Unavailable [phone] Naya Arriola PA-C Primary Care Provider + Reason for Visit * Reason Comments Refill Request Encounter Details Date Type Department Care Team (Late st Contact Info) Description 07/04/2023 Refill [facility] [place] [address] [facility] [address] [address] Taylor Donohue, FINISHER TAILOR APPRENTICE-SEWER BUILDER [address] [address] Refill Request Social History Tobacco [...] st Contact Info) Description 09/27/2024 2:20 PM DIRECTOR OF PARTNER MARKETING Office Visit [facility] Neurosciences [address] [facility] [address] [place] [phone] [place] [address] [facility] [place] [address] [place] [address] 09/28/2024 1:00 PM DIRECTOR OF PARTNER MARKETING Office Visit [facility] Medical Group - [address] Michele Barrett, [address] [place] [address] [place] [address] [address] [place] [address] documented as of this encounter Goals Goal Patient Goal Type Associated Problems Recent Progress Patient-Stated? Author Blood Pressure < 140/90 Blood Pressure 102/69(2022 11:30 AM DIRECTOR OF PARTNER MARKETING) No Melinda Newsome Quit smoking / using tobacco Lifestyle No Melinda Newsome documented as of this encounter Visit Diagnoses Not on filedocumented in this encounter Care Teams Theatrical Variety Agent Relationship Specialty Start Date End Date Naya Arriola PA-C [address] [place] [address] PCP - General Physician Topographical Field Assistant 01/19/20 Stevenson Almanza MD Neurology 08/16/14 [place] [address] [address] Pulmonary Disease 02/14/16 documented as of this encounter
--- OUTSIDE RECORDS SUMMARY | 2024-09-18 09:30 | XMS_ITS | Encounter Summary ---
Author Organization [facility] Address [address] [place] [address] Care Team Providers Care Poultry Farm Laborer Name Role Phone Stevenson Almanza MD Unavailable [phone] Dequan Baxter MD Unavailable [phone] Naya Arriola PA-C Primary Care Provider + Reason for Visit * Reason Onset Date Comments MEDICATION REFILL 04/21/2022 Encounter Details Date Type Department Care Team (Late st Contact Info) Description 04/21/2022 Refill [facility] Medical [facility] - [address] Michele [address] [address] [place] [address] [address] [address] MEDICATION REFILL Social History Tobacco [...] st Contact Info) Description 09/27/2024 2:20 PM ENERGY ADMINISTRATOR Office Visit [facility] Neurosciences [address] [phone] [place] [address] [phone] 09/28/2024 1:00 PM ENERGY ADMINISTRATOR Office Visit [facility] [place] [address] [address], [address] [address] [place] [address] [address]RETT [facility] [address] [place] [address] documented as of this encounter Goals Goal Patient Goal Type Associated Problems Recent Progress Patient-Stated? Author Blood Pressure < 140/90 Blood Pressure 102/69(2022 11:30 AM ENERGY ADMINISTRATOR) No Melinda Newsome Quit smoking / using tobacco Lifestyle No Melinda Newsome documented as of this encounter Visit Diagnoses Not on filedocumented in this encounter Care Teams Poultry Farm Laborer Relationship Specialty Start Date End Date Naya Arriola PA-C [address] [place] [phone] PCP - General Physician Scientific Aide 01/19/20 Stevenson Almanza MD Neurology 08/16/14 [place] [address] [place] [phone] Pulmonary Disease 02/14/16 documented as of this encounter
--- OUTSIDE RECORDS SUMMARY | 2024-09-18 09:30 | XMS_ITS | Encounter Summary ---
Author Organization [facility] Address [address] [facility] [place] [address] Care Team Providers Care Fiscal Accountant Name Role Phone Stevenson Almanza MD Unavailable [phone] Dequan Baxter MD Unavailable [phone] Naya Arriola PA-C Primary Care Provider + Encounter Details Date Type Department Care Team (Late st Contact Info) Description 11/15/2023 Orders Only [facility] [place] [address], [address] [address] Taylor Donohue, BROADCAST TRANSMITTER OPERATOR-PROPERTY ACCOUNTANT [address] [address] Fatty liver Social History Tobacco Use [...] Is person blind or have serious difficulty seesudha g? No 10/23/2014 Does person have serious [...] st Contact Info) Description 09/27/2024 2:20 PM PROTOTYPE SEWER Office Visit [facility] Neurosciences [address] [facility] [address] [place] [address] [place] [address] [facility] [address] [place] [address] 09/28/2024 1:00 PM PROTOTYPE SEWER Office Visit [facility] [place] [address] De[address] Barrett, Juan [address] [place] [address] [place] [address] [address] [place] [address] documented as of this encounter Goals Goal Patient Goal Type Associated Problems Recent Progress Patient-Stated? Author Blood Pressure < 140/90 Blood Pressure 102/69(2022 11:30 AM PROTOTYPE SEWER) No Melinda Newosme Quit smoking / using tobacco Lifestyle No Melinda Newsome documented as of this encounter Procedures Procedure Name Priority Date/Time Associated Diagnosis Comments HEPATIC FUNCTION PANEL Routine 11/28/2023 10:07 AM CDT Fatty liver documented in this encounter [...] Agency Comment Lab Testing performed at: [facility] [address] ??[facility] [id number] Taylor Donohue BROADCAST TRANSMITTER OPERATOR-PROPERTY ACCOUNTANT LAB - CHEMISTRY ORDERABLES [facility] ACCOUNT BILL [address] [place] [address] documented in this encounter Visit Diagnoses Diagnosis Fatty liver Other chronic nonalcoholic liver disease documented in this encounter Care Teams Fiscal Accountant Relationship Specialty Start Date End Date Naya Arriola PA-C [address] [place] [phone] PCP - General Physician Dulite Machine Bluer 01/19/20 Stevenson Almanza MD Neurology 08/16/14 [place] [address] [address] Pulmonary Disease 02/14/16 documented as of this encounter
--- OUTSIDE RECORDS SUMMARY | 2024-09-18 09:30 | XMS_ITS | Encounter Summary ---
Author Organization [facility] Address [address] [facility] [place] [address] Care Team Providers Care Offline Cutter Name Role Phone Stevenson Almanza MD Unavailable [phone] Dequan Baxter MD Unavailable Naya Arriola PA-C Primary Care Provider + Reason for Visit * Reason Onset Date Comments Results 08/06/2022 Encounter Details Date Type Department Care Team (Late st Contact Info) Description 08/06/2022 Telephone [facility] Medical [facility] - [address] Michele Barrett [address] [address] [place] [address] [address] [address] Results Social History Tobacco Use [...] Telephone Encounter - Augustine Crane RN - 08/06/2022 2:35 PM INSPECTOR MULTIFOCAL LENS ----- Message from Taylor Donohue APRN-STORE SALES LEADER sent at 07/28/2022 8:42 AM INSPECTOR MULTIFOCAL LENS ----- Findings ALT and AST mildly elevated. Recs Continue w/ dietary and lifestyle modifications with the goal of gradual weight loss Repeat LFTs in 6 months lft and reminder in already for ECTOR MULTIFOCAL LENS documented in this encounter Plan of Treatment Upcoming Encounters Date Type Department Care Team (Late st Contact Info) Description 09/27/2024 2:20 PM INSPECTOR MULTIFOCAL LENS Office Visit [facility] Neurosciences [address] [address] [place] [address] [phone] 09/28/2024 1:00 PM INSPECTOR MULTIFOCAL LENS Office Visit [facility] [place] [address] Michele Barrett, [address] [address] [place] [address] [address]RETT [facility] [address] [place] [address] documented as of this encounter Goals Goal Patient Goal Type Associated Problems Recent Progress Patient-Stated? Author Blood Pressure < 140/90 Blood Pressure 102/69(2022 11:30 AM INSPECTOR MULTIFOCAL LENS) No Melinda Newsome Quit smoking / using tobacco Lifestyle No Melinda Newsome documented as of this encounter Visit Diagnoses Not on filedocumented in this encounter Care Teams Offline Cutter Relationship Specialty Start Date End Date Naya Arriola PA-C [address] [place] [phone] PCP - General Physician Maintenance Trainer 01/19/20 Stevenson Almanza MD Neurology 08/16/14 [place] [address] [address] Pulmonary Disease 02/14/16 documented as of this encounter
--- OUTSIDE RECORDS SUMMARY | 2024-09-18 09:30 | XMS_ITS | Encounter Summary ---
Author Organization [facility] Address [address] [facility] [place] [address] Care Team Providers Care Moose Hunter Name Role Phone Stevenson Almanza MD Unavailable [phone] Dequan Baxter MD Unavailable [phone] Naya Arriola PA-C Primary Care Provider + Encounter Details Date Type Department Care Team (Late st Contact Info) Description 11/04/2022 Orders Only [facility] [place] [address] Michele [address] [address] [place] [address] [address] [address] BOONE (nonalcoholic steatohepatitis) Social History Tobacco [...] st Contact Info) Description 09/27/2024 2:20 PM MISSIONARY COORDINATOR Office Visit [facility] Neurosciences [address] [facility] [address] [place] [address] [place] [address] [facility] JUAN [address] [place] [address] 09/28/2024 1:00 PM MISSIONARY COORDINATOR Office Visit [facility] [place] [address] [address], Juan Alber[address] [place] [address] [place] [address] [address] [place] [address] documented as of this encounter Goals Goal Patient Goal Type Associated Problems Recent Progress Patient-Stated? Author Blood Pressure < 140/90 Blood Pressure 102/69(2022 11:30 AM MISSIONARY COORDINATOR) No Melinda Newsome Quit smoking / using tobacco Lifestyle No Melinda Newsome documented as of this encounter Procedures Procedure Name Priority Date/Time Associated Diagnosis Comments HEPATIC FUNCTION PANEL Routine 11/08/2022 9:20 AM MISSIONARY COORDINATOR BOONE (nonalcoholic steatohepatitis) documented in this encounter Results * HEPATIC FUNCTION PANEL (11/08/2022 9:20 AM MISSIONARY COORDINATOR) Protein Total 7.4 6.0 - 8.5 g/dL [...] BLOOD SPECIMEN / Unknown 11/08/2022 9:20 AM MISSIONARY COORDINATOR 11/08/2022 Narrative Resulting Agency Comment Lab Testing performed at: [facility] [address] ??[facility] [phone] Mark Rose MD LAB - CHEMISTRY ORD ERABLES [facility] ACCOUNT BILL [address] [place] [address] documented in this encounter Visit Diagnoses Diagnosis BOONE (nonalcoholic steatohepatitis) Other chronic nonalcoholic liver disease documented in this encounter Care Teams Moose Hunter Relationship Specialty Start Date End Date Naya Arriola PA-C [address] [place] [phone] PCP - General Physician Research Manufacturing Operator 01/19/20 Stevenson Almanza MD Neurology 08/16/14 [place] [address] [address] Pulmonary Disease 02/14/16 documented as of this encounter
--- OUTSIDE RECORDS SUMMARY | 2024-09-18 09:30 | XMS_ITS | Patient Health Summary ---
Author Organization [facility] Address [address] [place] [address] Care Team Providers Care Drill Press Set Up Operator Radial Name Role Phone Stevenson Almanza MD Unavailable [phone] Dequan Baxter MD Unavailable [phone] Naya Arriola PA-C Primary Care Provider + Note from [facility],non-owned Affiliates and Associated Physician Practices is amultiple site organization consisting of ambulatory clinics and hospital sitesin [place], [place], [place] and [place]. This disclosure is being madepursuant to the Care Everywhere program and may not contain all information available regarding this patient. Last updated 18.[facility] Allergies * Adhesive Sensitivity(Rash) -Medium Criticality * Latex * Sulfa Drugs Medications * Be aware that medications may not be up to date on this document. Alwaysverify current medications with the patient. * Cholecalciferol (VITAMIN D) 1000 UNIT capsule Take 5 (five) capsules by mouth once daily * metFORMIN (GLUCOPHAGE) 500 MG tablet(Started 05/16/2016) TAKE ONE TABLET BY MOUTH ONCE DAILY 1 refill left * lisinopril (PRINIVIL; ZESTRIL) 40 MG tablet(Started 10/27/2016) TAKE ONE TABLET BY MOUTH ONCE DAILY 3 refills remaining * metoprolol tartrate (LOPRESSOR) 50 MG tablet(Started 12/08/2016) TAKE ONE TABLET BY MOUTH TWICE A DAY 1 refill remaining * levothyroxine (SYNTHROID) 88 MCG tablet(Started 01/27/2017) TAKE ONE TABLET BY MOUTH ONCE DAILY BEFORE BREAKFAST 3 refills remaining * isosorbide mononitrate CR 24hr (IMDUR) 30 MG tablet Take 1 (one) tablet by mouth once daily * nitroGLYCERIN (NITROSTAT) 0.4 MG tablet Dissolve 1 (one) tablet under the tongue every 5 minutes as needed for Angina * traMADol (ULTRAM) 50 MG tablet Take 1 (one) tablet by mouth once daily * ASPIRIN 81 81 MG tablet(Started 02/11/2020) once daily * atorvastatin (LIPITOR) 40 MG tablet(Started 11/20/2020) Take 1 (one) tablet by mouth once daily * melatonin 5 MG tablet(Started 11/20/2020) Take 1 (one) tablet by mouth at bedtime * oxybutynin (Ditropan) 5 MG tablet Take 1 (one) tablet by mouth 3 times daily * furosemide (Lasix) 20 MG tablet Take 1 (one) tablet by mouth once daily * loratadine (Claritin) 10 MG tablet Take 1 (one) tablet by mouth once daily * celecoxib (CeleBREX) 100 MG capsule Take 1 (one) capsule by mouth once daily * OneTouch Ultra test strip(Started 04/20/2022) USE TO CHECK BLOOD SUGAR TWICE DAILY * pantoprazole EC (Protonix) 40 MG tablet(Started 05/07/2022) Take 1 (one) tablet by mouth daily before breakfast * linaCLOtide (Linzess) 290 MCG capsule(Started 05/07/2022) TAKE ONE CAPSULE BY MOUTH ONCE DAILY ON AN EMPTY STOMACH AT LEAST 30 MINUTES PRIOR TO FIRST MEAL OFTHE DAY 3 refills by 05/07/2023 * canagliflozin (Invokana) 100 MG tablet Take 1 (one) tablet by mouth daily before breakfast * Rybelsus 14 MG tablet(Started 03/09/2023) Take 1 (one) tablet by mouth once daily * amitriptyline (Elavil) 100 MG tablet(Started 10/06/2023) TAKE 1 TABLET BY MOUTH EVERYDAY AT BEDTIME 11 refills by 10/05/2024 * ondansetron (Zofran) 8 MG tablet(Started 08/18/2024) Take 1 (one) tablet by mouth every 8 hours as needed for nausea and vomiting. 1 refill by 08/18/2025 Active Problems Problem Noted Date Diagnosed Date [...] 08/07/2013 07/31/20 15 Abdominal pain 08/07/2013 07/31/2015 Hypothyroidism 06/29/2013 11/23/2015 Depressive disorder, not elsewhere classified 05/02/20 13 01/23/2015 Prediabetes 05/02/2013 02/26/2016 Immunizations * INFLUENZA VACCINE, TRIV. (AFLURIA, FLUZONE TRIVALENT; 6MO+) (IIV3)(Given 07/25/2014) * Covid Pfizer primary monovalent 12+ yr 0.3mL Purple cap(Given 12/22/2020, 12/01/2020) * INFLUENZA VACCINE(Given 06/07/2018, 06/15/2013) * INFLUENZA VACCINE, CELL CULTURE, QUADR. (FLUCELVAX QUADRIVALENT; 6MO+), 0.5 ML (CCIIV4)(Given 06/08/2019) * INFLUENZA VACCINE, QUADR. 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 FIRE TECHNOLOGY INSTRUCTOR Pulse 92 08/25/2023 11:30 AM FIRE TECHNOLOGY INSTRUCTOR Temperature 36.6 ??C (97.9 ??F) 06/18/2020 1:22 PM CD T Respiratory Rate 14 04/28/2023 1:00 PM CDT Oxygen Saturation 94% 08/25/2023 11:30 AM FIRE TECHNOLOGY INSTRUCTOR Inhaled Oxygen Concentration - - Weight 107 kg (236 lb) 08/25/2023 11:30 AM FIRE TECHNOLOGY INSTRUCTOR Height 160 cm (5' 3 ) 04/28/2023 1:00 PM CDT Body Mass Index 41.81 04/28/2023 1:00 PM CDT Procedures * HEPATIC FUNCTION PANEL(Performed 06/04/2024) Performed for BOONE (nonalcoholic steatohepatitis) * HEPATIC FUNCTION PANEL(Performed 11/28/2023) Performed for Fatty liver * HEPATIC FUNCTION PANEL(Performed 05/22/2023) Performed for Fatty liver * HEPATIC FUNCTION PANEL(Performed 11/08/2022) Performed for BOONE (nonalcoholic steatohepatitis) * HEPATIC FUNCTION PANEL(Performed 05/07/2022) Performed for Elevated LFTs * COMPREHENSIVE METABOLIC PANEL(Performed 05/07/2022) Performed for Elevated LFTs * MRI BRAIN WWO CONTRAST(Performed 01/31/2021) Performed for Multiple sclerosis (HCC) * COMPREHENSIVE METABOLIC PANEL(Performed 10/26/2020) Performed for Abnormal liver function tests * COLONOSCOPY SCREEN(Performed 06/18/2020) * FL ED EGD FLEX TRANSORAL DX(Performed 06/18/2020) * ENDOSCOPY, COLON, SCREENING(Performed 06/18/2020) * HELICOBACTER PYLORI UREASE (STL)(Performed 06/18/2020) Performed for Diagnosis unknown * PATHOLOGY TISSUE EXAM (STL)(Performed 06/18/2020) Performed for Diagnosis unknown * EGD(Performed 06/18/2020) * US ABDOMEN LTD W ELASTOGRAPHY(Performed 06/15/2020) Performed for Abnormal liver function tests * COMPREHENSIVE METABOLIC PANEL(Performed 04/18/2020) Performed for Constipation, unspecified constipation type, Screen for colon cancer, Gastroesophageal reflux disease, esophagitis presence not specified, Dysphagia, unspecified type, Sphincter of Oddidysfunction, Gastroparesis * LAB(Performed 09/16/2019) * DEXA BONE DENSITY AXIAL SKELETON(Performed 12/21/2018) Performed for Gastroesophageal reflux disease without esophagitis * MAMMO BILAT SCREENING(Performed 12/21/2018) Performed for Screening for breast cancer * FL EXC SKIN MALIG 1.1-2CM REMAINDR BODY(Performed 12/20/2018) 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, right * FL REPR CMPL WND SCALP,EXTR 2.6-7.5(Performed 12/20/2018) 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, right * DERMATOPATHOLOGY(Performed 12/20/2018) 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, right * DERMATOPATHOLOGY(Performed 10/25/2018) * COMPREHENSIVE METABOLIC PANEL(Performed 09/27/2018) Performed for Fatty liver * COMPREHENSIVE METABOLIC PANEL(Performed 05/26/2018) Performed for Abnormal liver function tests * MRI BRAIN WWO CONTRAST(Performed 01/11/2018) Performed for MS (multiple sclerosis) (HCC) * NM GASTRIC EMPTYING(Performed 12/16/2017) Performed for Nausea without vomiting * HELICOBACTER PYLORI UREASE (STL)(Performed 12/07/2017) Performed for Abdominal pain, unspecified abdominal location * PATHOLOGY TISSUE EXAM (STL)(Performed 12/07/2017) Performed for Abdominal pain, unspecified abdominal location * ESOPHAGOGASTRODUODENOSCOPY (EGD) DIAGNOSTIC(Performed 12/07/2017) * EGD(Performed 12/07/2017) * COMPREHENSIVE METABOLIC PANEL(Performed 11/04/2017) Performed for Abnormal LFTs * IR BIOPSY TRANSCATHETER(Performed 06/30/2017) * IR US GUIDE VASCULAR ACCESS(Performed 06/30/2017) * IR VENOGRAM HEPATIC W HEMODYNAMICS(Performed 06/30/2017) * IR VENOGRAM PROCEDURAL CODE(Performed 06/30/2017) * IR BIOPSY TRANSCATHETER(Performed 06/30/2017) * PATHOLOGY TISSUE(Performed 06/30/2017) * SONJA BLOOD SCREEN W/REFLEX TITER(Performed 06/10/2017) * SMOOTH MUSCLE ANTIBODY(Performed 06/10/2017) * MITOCHONDRIAL ANTIBODY SCREEN(Performed 06/10/2017) * INTERPRETATION (7)(Performed 06/10/2017) * HEPATITIS C AB W/RFLX TO HCV RNA QN PCR(Performed 06/10/2017) * COMPREHENSIVE METABOLIC PANEL(Performed 06/10/2017) * CBC W AUTO DIFFERENTIAL(Performed 06/10/2017) * PT-INR SLH(Performed 06/10/2017) * HEPATITIS B CORE ANTIBODY TOTAL(Performed 06/10/2017) * HEPATITIS B SURFACE ANTIBODY(Performed 06/10/2017) * HEPATITIS B SURFACE ANTIGEN W RFLX CONFIRMATION(Performed 06/10/2017) * HEPATITIS A ANTIBODY(Performed 06/10/2017) * FERRITIN(Performed 06/10/2017) * IRON + TIBC PANEL(Performed 06/10/2017) * CERULOPLASMIN(Performed 06/10/2017) * HMEOL-5-[id number] BLOOD(Performed 06/10/2017) * IGG BLOOD(Performed 06/10/2017) * LAB RESULTS ORDER(Performed 04/07/2017) * LAB RESULTS ORDER(Performed 11/03/2016) * HM DIABETES EYE EXAM(Performed 10/18/2016) * VAS RIGHT VENOUS DUPLEX LE(Performed 10/08/2016) Performed for Right leg swelling * D-DIMER(Performed 10/05/2016) * MRI ABDOMEN WO CONTRAST(Performed 06/19/2016) Performed for RUQ pain * US ABDOMEN LTD W LTD DOPPLER(Performed 06/10/2016) Performed for Abdominal pain, epigastric, Enlarged liver * LAB RESULTS ORDER(Performed 06/09/2016) * LAB RESULTS ORDER(Performed 06/06/2016) * LAB RESULTS ORDER(Performed 06/06/2016) * HEMOGLOBIN A1C(Performed 05/27/2016) Performed for Type 2 diabetes mellitus without complication, without long-term current use of insulin (HCC) * LIPID PROFILE(Performed 05/27/2016) Performed for Type 2 diabetes mellitus without complication, without long-term current use of insulin (HCC) * TSH(Performed 05/27/2016) Performed for Hypothyroidism, adult * CBC W AUTO DIFFERENTIAL(Performed 05/27/2016) Performed for Essential hypertension * COMPREHENSIVE METABOLIC PANEL(Performed 05/27/2016) Performed for Essential hypertension * URINALYSIS - POINT OF CARE(Performed 02/26/2016) Performed for Urine frequency * HEMOGLOBIN A1C - POINT OF CARE (AMB)(Performed 02/26/2016) Performed for Diabetes type 2, controlled (HCC) * HOME SLEEP STUDY(Performed 02/07/2016) Performed for Snoring * XR CHEST 2VW(Performed 01/15/2016) Performed for Cough, Acute bronchitis, unspecified organism * MRI BRAIN WWO CONTRAST(Performed 11/13/2015) Performed for Multiple sclerosis exacerbation (HCC) * MRI CERVICAL SPINE WWO CONT(Performed 11/13/2015) Performed for Multiple sclerosis exacerbation (HCC) * HEMOGLOBIN A1C(Performed 11/12/2015) Performed for Prediabetes * COMPREHENSIVE METABOLIC PANEL(Performed 11/12/2015) Performed for Essential hypertension, Mixed hyperlipidemia * LIPID PROFILE(Performed 11/12/2015) Performed for Essential hypertension, Mixed hyperlipidemia * URINALYSIS MICROSCOPIC ONLY REFLEXED(Performed 11/12/2015) Performed for Multiple sclerosis exacerbation (HCC) * URINALYSIS REFLEX TO MICROSCOPIC NO CULTURE(Performed 11/12/2015) Performed for Multiple sclerosis exacerbation (HCC) * COMPREHENSIVE METABOLIC PANEL(Performed 11/12/2015) Performed for Multiple sclerosis exacerbation (HCC) * CBC W AUTO DIFFERENTIAL(Performed 11/12/2015) Performed for Multiple sclerosis exacerbation (HCC) * MAMMO BILAT SCREENING(Performed 11/05/2015) Performed for Screening for breast cancer * PAP IG LB CT+GC+HPV HR(Performed 09/18/2015) Performed for Screening for cervical cancer * VITAMIN D 25-HYDROXY(Performed 07/31/2015) Performed for Vitamin D deficiency, Encounter for routine adult physical exam with abnormal findings * HEMOGLOBIN A1C(Performed 07/31/2015) Performed for Prediabetes, Encounter for routine adult physical exam with abnormal findings * LIPID PROFILE(Performed 07/31/2015) Performed for Essential hypertension, Mixed hyperlipidemia, Encounter for routine adult physical exam with abnormal findings * TSH(Performed 07/31/2015) Performed for Essential hypertension, Mixed hyperlipidemia, Encounter for routine adult physical exam with abnormal findings * CBC W AUTO DIFFERENTIAL(Performed 07/31/2015) Performed for Essential hypertension, Mixed hyperlipidemia, Encounter for routine adult physical exam with abnormal findings * COMPREHENSIVE METABOLIC PANEL(Performed 07/31/2015) Performed for Essential hypertension, Mixed hyperlipidemia, Encounter for routine adult physical exam with abnormal findings * EKG 12-LEAD(Performed 07/31/2015) Performed for Routine general medical examination at a health care facility * XR KNEE RIGHT 4VW OR MORE(Performed 06/26/2015) Performed for Right knee injury, initial encounter * NERVE CONDUCTION TEST(Performed 06/20/2015) * CT ABDOMEN PELVIS W CONTRAST(Performed 03/29/2015) Performed for Abdominal pain, left lower quadrant * HCG URINE QUALITATIVE(Performed 03/28/2015) * URINALYSIS REFLEX TO MICROSCOPIC NO CULTURE(Performed 03/28/2015) * TROPONIN I(Performed 03/28/2015) * LIPASE BLOOD(Performed 03/28/2015) * COMPREHENSIVE METABOLIC PANEL(Performed 03/28/2015) * CBC W AUTO DIFFERENTIAL(Performed 03/28/2015) * XR HAND RIGHT 3VW OR MORE(Performed 02/22/2015) Performed for Pain of right hand * LIPID PROFILE(Performed 01/23/2015) Performed for Mixed hyperlipidemia * HEMOGLOBIN A1C(Performed 01/23/2015) Performed for Prediabetes * GENERAL HEALTH PANEL(Performed 01/23/2015) Performed for HTN (hypertension), Prediabetes, Mixed hyperlipidemia, Hypothyroidism * COLONOSCOPY(Performed 10/23/2014) * PATHOLOGY TISSUE EXAM (STL)(Performed 10/23/2014) * ENDOSCOPY, COLON, SCREENING(Performed 10/23/2014) * BASIC METABOLIC PANEL (CALCIUM TOTAL)(Performed 08/23/2014) Performed for Function kidney decreased * VITAMIN D 25-HYDROXY(Performed 07/25/2014) Performed for Vitamin D deficiency * LIPID PROFILE(Performed 07/25/2014) Performed for Mixed hyperlipidemia * GENERAL HEALTH PANEL(Performed 07/25/2014) Performed for HTN (hypertension), Prediabetes, Mixed hyperlipidemia, Hypothyroidism, Vitamin D deficiency * HEMOGLOBIN A1C(Performed 07/25/2014) Performed for Prediabetes * HEMOGLOBIN A1C(Performed 04/21/2014) Performed for Prediabetes * VITAMIN D 25-HYDROXY(Performed 04/21/2014) Performed for Vitamin D deficiency * GENERAL HEALTH PANEL(Performed 04/21/2014) Performed for HTN (hypertension), Prediabetes, Mixed hyperlipidemia, Hypothyroidism * MAMMO BILAT SCREENING(Performed 01/24/2014) Performed for Screening for breast cancer * PAP IG RFLX HPV ASCU(Performed 01/24/2014) Performed for Routine gynecological examination, Screening for cervical cancer * URINALYSIS AUTO - POINT OF CARE(Performed 01/24/2014) Performed for Routine gynecological examination * HEMOGLOBIN A1C(Performed 12/21/2013) Performed for Prediabetes * LIPID PROFILE(Performed 12/21/2013) Performed for Mixed hyperlipidemia * TSH(Performed 12/21/2013) Performed for Hypothyroidism * COMPREHENSIVE METABOLIC PANEL(Performed 12/21/2013) Performed for Mixed hyperlipidemia * XR ANKLE RIGHT 3VW OR MORE(Performed 09/28/2013) Performed for Pain in ankle joint * THYROID PANEL W TSH (TSH,T4,T3 UPTAKE,FTI)(Performed 09/28/2013) Performed for Hypothyroidism * VITAMIN D 25-HYDROXY(Performed 09/28/2013) Performed for Vitamin D deficiency * HEMOGLOBIN A1C(Performed 09/28/2013) Performed for Prediabetes * LIPID PROFILE(Performed 09/28/2013) Performed for Mixed hyperlipidemia * CT ABDOMEN PELVIS WO CONTRAST(Performed 09/02/2013) Performed for Right flank pain * HCG URINE QUALITATIVE(Performed 09/02/2013) * URINALYSIS REFLEX MICROSCOPIC REFLEX CULTURE(Performed 09/02/2013) * COMPREHENSIVE METABOLIC PANEL(Performed 09/02/2013) * CBC W AUTO DIFFERENTIAL(Performed 09/02/2013) * URINE MICROSCOPIC ONLY REFLEX TO CULTURE(Performed 09/02/2013) * CULTURE URINE(Performed 09/02/2013) * CT ABDOMEN PELVIS W CONTRAST(Performed 08/26/2013) Performed for Abdominal pain, acute * TROPONIN I(Performed 08/26/2013) * LIPASE BLOOD(Performed 08/26/2013) * COMPREHENSIVE METABOLIC PANEL(Performed 08/26/2013) * CBC W AUTO DIFFERENTIAL(Performed 08/26/2013) * C DIFFICILE BY PCR(Performed 08/24/2013) Performed for Diarrhea * COMPREHENSIVE METABOLIC PANEL(Performed 08/19/2013) Performed for Hospital discharge follow-up, Acute cholecystitis, S/P laparoscopic cholecystectomy * CBC W AUTO DIFFERENTIAL(Performed 08/19/2013) Performed for Hospital discharge follow-up, Acute cholecystitis * COMPREHENSIVE METABOLIC PANEL(Performed 08/14/2013) * HEPATIC FUNCTION PANEL(Performed 08/13/2013) * BASIC METABOLIC PANEL (CALCIUM TOTAL)(Performed 08/13/2013) * ERCP(Performed 08/12/2013) * FL ERCP CBD ONLY(Performed 08/12/2013) Performed for Pain * COMPREHENSIVE METABOLIC PANEL(Performed 08/11/2013) * CBC W AUTO DIFFERENTIAL(Performed 08/11/2013) * LAPAROSCOPIC CHOLECYSTECTOMY(Performed 08/10/2013) * CKMB(Performed 08/10/2013) * TROPONIN I(Performed 08/10/2013) * EKG 12-LEAD(Performed 08/10/2013) Performed for Abdominal pain, acute * XR CHOLANGIOGRAM OPERATIVE(Performed 08/10/2013) Performed for Pain in the abdomen * PATHOLOGY TISSUE EXAM (STL)(Performed 08/10/2013) * COMPREHENSIVE METABOLIC PANEL(Performed 08/10/2013) Performed for Abdominal pain, acute, Acute liver disease, HTN (hypertension), Depressive Disorder, Not Elsewhere Classified, Prediabetes, Mixed hyperlipidemia, Hypothyroidism * CBC W AUTO DIFFERENTIAL(Performed 08/10/2013) Performed for Abdominal pain, acute, Acute liver disease, HTN (hypertension), Depressive Disorder, Not Elsewhere Classified, Prediabetes, Mixed hyperlipidemia, Hypothyroidism * SMOOTH MUSCLE ANTIBODY TITER(Performed 08/09/2013) Performed for Acute liver disease * HEPATITIS SCREEN ACUTE(Performed 08/09/2013) Performed for Acute liver disease * MITOCHONDRIAL ANTIBODY SCREEN(Performed 08/09/2013) Performed for Acute liver disease * SMOOTH MUSCLE ANTIBODY W REFLEX TITER(Performed 08/09/2013) Performed for Acute liver disease * SONJA BLOOD SCREEN W/REFLEX TITER(Performed 08/09/2013) Performed for Acute liver disease * COMPREHENSIVE METABOLIC PANEL(Performed 08/09/2013) Performed for Abdominal pain, acute, Acute liver disease, HTN (hypertension), Depressive Disorder, Not Elsewhere Classified, Prediabetes, Mixed hyperlipidemia, Hypothyroidism * CBC W AUTO DIFFERENTIAL(Performed 08/09/2013) Performed for Abdominal pain, acute, Acute liver disease, HTN (hypertension), Depressive Disorder, Not Elsewhere Classified, Prediabetes, Mixed hyperlipidemia, Hypothyroidism * US ABDOMEN LIMITED(Performed 08/08/2013) Performed for Abdominal pain, acute * COMPREHENSIVE METABOLIC PANEL(Performed 08/08/2013) Performed for Abdominal pain, acute, Acute liver disease, HTN (hypertension), Depressive Disorder, Not Elsewhere Classified, Prediabetes, Mixed hyperlipidemia, Hypothyroidism * CBC W AUTO DIFFERENTIAL(Performed 08/08/2013) Performed for Abdominal pain, acute, Acute liver disease, HTN (hypertension), Depressive Disorder, Not Elsewhere Classified, Prediabetes, Mixed hyperlipidemia, Hypothyroidism * TROPONIN I(Performed 08/07/2013) Performed for Abdominal pain, acute * TROPONIN I(Performed 08/07/2013) * HCG URINE QUALITATIVE(Performed 08/07/2013) * URINALYSIS REFLEX MICROSCOPIC REFLEX CULTURE(Performed 08/07/2013) * CULTURE URINE(Performed 08/07/2013) * CT ABDOMEN PELVIS W CONTRAST(Performed 08/07/2013) Performed for Abdominal pain, acute * LIPASE BLOOD(Performed 08/07/2013) * TROPONIN I(Performed 08/07/2013) * COMPREHENSIVE METABOLIC PANEL(Performed 08/07/2013) * CBC W AUTO DIFFERENTIAL(Performed 08/07/2013) * EKG 12-LEAD(Performed 08/07/2013) Performed for Abdominal pain, acute * HEMOGLOBIN A1C(Performed 07/01/2013) Performed for Prediabetes * LIPID PROFILE(Performed 07/01/2013) Performed for Mixed hyperlipidemia * TSH(Performed 07/01/2013) Performed for Hypothyroidism * COMPREHENSIVE METABOLIC PANEL(Performed 07/01/2013) Performed for HTN (hypertension), Mixed hyperlipidemia * HEMOGLOBIN A1C(Performed 02/22/2013) Performed for Prediabetes * LIPID PROFILE(Performed 02/22/2013) Performed for Mixed hyperlipidemia * GENERAL HEALTH PANEL(Performed 02/22/2013) Performed for HTN (hypertension) * IMAGING/RADIOLOGY/XRAY RESULTS ORDER(Performed 08/07/2008) * IMAGING/RADIOLOGY/XRAY RESULTS ORDER(Performed 07/31/2008) * IMAGING/RADIOLOGY/XRAY RESULTS ORDER(Performed 10/04/2007) Results * HEPATIC FUNCTION PANEL (06/04/2024 10:23 AM CDT) Only the most recent of6 resultswithin the time period is included. Protein Total 6.6 6.0 - 8.5 g/dL [...] AM CDT Performed at: ??01 - [facility] [address] [place], [place] ??[id number] Slip Caster: Gilberto Malhotra PhD, Phone: ??[phone] Taylor Donohue VICE PRESIDENT FINANCIAL[employer]ING [employer]SE LABORER LAB - CHEMISTRY ORDERABLES [facility] INSURANCE BILL [address] [place] [address] * (ABNORMAL) COMPREHENSIVE METABOLIC PANEL (05/07/2022 2:40 PM CDT) Only the most recent of23 resultswithin the time period is included. Glucose 90 70 - 105 mg/dL [facility] [...] Resulting Agency Comment Lab Testing performed at: [place] [address] [address] ?? Alejandra LINARES [phone] Taylor Donohue VICE PRESIDENT [employer] LABORER LAB - CHEMISTRY ORDERABLES [facility] [place] [address] [place] [address] * MRI BRAIN WWO CONTRAST (01/31/2021 7:15 PM CDT) Only the most recent of3 resultswithin the time period is included. Anatomical Region Laterality Modality Head Magnetic Resonan ce 02/01/2021 7:34 AM CDT Narrative 02/01/2021 7:38 AM CDT Examination: MRI brain, with and without contrast. Indication for examination: Multiple sclerosis. Precontrast T1 and T2-weighted images with contrast-enhanced T1-weighted images of the brain are obtained. 20 cc Dotarem contrast were used. Comparison is made with a prior examination of January 11, 2018. There is redemonstration of numerous foci of T2 signal hyperintensity within the subependymal and periventricular white matter bilaterally. There are areas of involvement of the subcortical white matter bilaterally. Pattern is consistent with the diagnosis of multiple sclerosis. Lesions are unchanged in number and distribution. No restricted diffusion is identified. Contrast-enhanced images show no abnormal enhancement. Ventricles and subarachnoid pathways are unchanged in appearance CONCLUSION: No change from January 11, 2018. No new demyelinating lesion identified. No restricted diffusion or abnormal enhancement identified. *Reading Radiologist: Stevenson Medrano on 02/01/2021 at 7:38 AM Procedure Note Stevenson Medrano MD - 02/01/2021 Examination: MRI brain, with and without contrast. Indication for examination: Multiple sclerosis. Precontrast T1 and T2-weighted images with contrast-enhanced T1-weighted images of the brain are obtained. 20 cc Dotarem contrast were used. Comparison is made with a prior examination of January 11, 2018. There is redemonstration of numerous foci of T2 signal hyperintensity within the subependymal and periventricular white matter bilaterally. There are areas of involvement of the subcortical white matter bilaterally. Pattern is consistent with the diagnosis of multiple sclerosis. Lesions are unchanged in number and distribution. No restricted diffusion is identified. Contrast-enhanced images show no abnormal enhancement. Ventricles and subarachnoid pathways are unchanged in appearance CONCLUSION: No change from January 11, 2018. No new demyelinating lesion identified. No restricted diffusion or abnormal enhancement identified. *Reading Radiologist: Stevenson Medrano on 02/01/2021 at 7:38 AM Stevenson Almanza MD MR ORDERABLES * ENDOSCOPY, COLON, SCREENING (06/18/2020 12:49 PM [...] the physician, the ? nurse and the waterway traffic checker in the procedure room. Mental ? Status [...] Procedure Code(s): ? --- Professional --- ? 61318, Colonoscopy, flexible; with removal of tumor(s), polyp(s), or ? other lesion(s) by snare technique ? 74639, 59, Colonoscopy, flexible; with biopsy, single or multiple ? --- Technical --- ? 76633, Colonoscopy, flexible; with removal of tumor(s), polyp(s), or ? other lesion(s) by snare technique ? 05725, 59, Colonoscopy, flexible; with biopsy, single or [...] ? K64.8, Other hemorrhoids CPT copyright 2017 [employer]. All rights reserved. The codes documented in this report are preliminary and upon hims coder review may be revised to meet current compliance requirements. Dr. Mark Rose MD Mark Rsoe MD 06/18/2020 1:20:39 PM This report has been signed electronically. Number of Addenda: 0 Note Initiated On: 06/18/2020 12:49 PM [facility] ENDOSCOPY 06/18/2020 12:4 9 PM CDT Mark Rose MD GI PROCEDURE ORDERA BLES Performing Organization Address [facility] Co de Phone Number [facility] [place] [address] * HELICOBACTER PYLORI UREASE (STL) (06/18/2020 12:44 PM CDT) Only the most recent of2 resultswithin the time period is included. Helicobacter pylori Urease Initial Negative Negative 06/19/2020 4:41 PM CDT [facility] Helicobacter pylori Urease Final Negative Negative 06/19/2020 4:41 PM CDT [facility] Comment:This is an appended report. These results have been appended to a previously preliminary verified report. Microbiology GASTRIC ANTRAL BIOPSY SPECIMEN / Unknown 06/18/2020 12:44 PM CDT 06/18/2020 4:07 PM CDT Mark Rose MD LAB - MICROBIOLOGY ORDERABLES Performing Organization Address [facility] Co de Phone Number [facility] [address] [place] [address] * PATHOLOGY TISSUE EXAM (STL) (06/18/2020 12:44 PM CDT) Only the most recent of4 resultswithin the time period is included. Case Report Surgical Pathology Report ? Case: [id number] ? Authorizing Provider: ??Mark Rose MD ? Collected: ? 06/18/2020 12:44 PM ? Ordering Location: ? [facility] ?Received: ?06/18/2020 02:35 PM ? Pathologist: ? Rachael Cain MD ? Specimens: ?? A) - Esophageal Biopsy ? B) - Polyp Colon ? 06/20/2020 9:54 AM CDT [facility] Final Diagnosis A. Esophagus, biopsy: -- No pathologic diagnosis B. Colon polyps, biopsy: -- Hyperplastic polyp MC 06/20/2020 9:54 AM CDT [facility] Clinical History Dysphagia, Follow-up of gastro-esophageal reflux disease, follow-up of gastroparesis Screening colonoscopy, high risk colon cancer surveillance: Personal history of colon polyps. 06/20/2020 9:54 AM CDT [facility] Gross Description The specimens are received in 2 formalin filled containers labeled with the patient's name ? Lucretia Rodriguez. Part A is additionally labeled ? esophageal biopsy,? and consists of 5 white-red tissue fragments ranging from 0.1 cm to 0.3 cm in greatest dimension. Entirely submitted in cassette A1. Part B is additionally labeled ? colon polyp,? and consists of numerous dunaway-pink tissue fragments aggregating to 2.3 x 0.3 x 0.1 cm. Entirely submitted in cassette B1. 06/20/2020 9:54 AM CDT [facility] Microscopic Description A. Sections reveal fragments of esophageal squamous mucosa with no significant pathologic diagnoses. No significant inflammation is seen. A PAS and Alcian blue special stain is negative for goblet cells. Controls are appropriate. B. Sections reveal fragments of colonic mucosa with benign hyperplastic polyp. 06/20/2020 9:54 AM CDT [facility] Disclaimer All histochemical and/or immunohistochemical results are interpreted with controls that demonstrate appropriate staining reactions before reporting results. Note on use of immunocytochemistry reagents: This test was developed and its performance characteristic determined by [facility], Department of Laboratory Medicine. It has not been cleared or approved by the U.S. Food and Drug Administration (FDA). The FDA has determined that such clearance or approval is not necessary. The test is used for clinical purpose. It should not be regarded as investigational or for research. This laboratory is certified to perform high complexity testing. The performance characteristics of the IHC/LIANE assays have been validated on formalin-fixed paraffin embedded tissues only. The assays have not been validated on decalcified tissues. Results should be interpreted with caution. 06/20/2020 9:54 AM CDT [facility] Embedded Images 06/20/2020 9:54 AM CDT [facility] Pathology/Cytology ESOPHAGEAL BIOPSY SPECIMEN / Unknown 06/18/2020 12:44 PM CDT 06/18/2020 2:35 PM CDT Miscellaneous samples (specimen) POLYP OF COLON / Unknown 06/18/2020 1:03 PM CDT 06/18/2020 2:35 PM CDT Mark Rose MD LAB - PATHOLOGY/CYT OLOGY ORDERABLES [facility] [address] [place] [address] * EGD (06/18/2020 12:36 PM CDT) Report Endoscopy POC __ _ Patient Name: Lucretia Rodriguez ? Procedure Date: 06/18/2020 12:36 PM ? Date of : 1965 ? Admit Type: Outpatient Age: 54 ? Gender: Female Attending MD: Mark Rose MD __ _ Procedure: ? Upper GI endoscopy Indications: ? Dysphagia, Follow-up of gastro-esophageal reflux disease, ? Follow-up of gastroparesis Providers: ? Mark Rose MD (Doctor) Medicines: ? Monitored Anesthesia Care Complications: ? No immediate complications. Estimated blood loss: None. __ _ Procedure: ? Pre-Anesthesia Assessment: ? - [...] the physician, the ? nurse and the waterway traffic checker in the procedure room. Mental ? Status [...] was re-assessed after the procedure. ? After obtaining informed consent, the endoscope was passed ? under direct vision. Throughout the procedure, the ? patient's blood pressure, pulse, and oxygen saturations ? were monitored continuously. The Endoscope was introduced ? through the mouth, and advanced to the second part of ? duodenum. The upper GI endoscopy was accomplished without ? difficulty. The patient tolerated the procedure well. ? Findings: ? The gastroesophageal junction and examined esophagus were normal. ? Biopsies were taken with a cold forceps for histology. The scope was ? withdrawn. Dilation was performed with a Nichole dilator with no ? resistance at 50 Fr. The scope was withdrawn. Dilation was performed ? with a Nichole dilator with mild resistance at 54 Fr. ? Localized moderate inflammation characterized by erythema, granularity ? and a single small superficial ulceration was found in the gastric ? antrum and body of the stomach. Biopsies were taken with a cold forceps ? for Helicobacter pylori testing using CLOtest. ? The cardia and gastric fundus were normal. ? The duodenal bulb and second portion of the duodenum were normal. __ _ ? Impression: ?- Normal gastroesophageal junction and esophagus. ? Biopsied. Dilated. ? - Gastritis. Biopsied. ? - Normal cardia and gastric fundus. ? - Normal duodenal bulb and second portion of the duodenum. Recommendation: ?- Await pathology results. ? - Gastroparesis diet. ? - Continue present medications. ? - Patient has a contact number available for emergencies. ? The signs and symptoms of potential delayed complications ? were discussed with the patient. Return to normal ? activities tomorrow. Written discharge instructions were ? provided to the patient. ? Procedure Code(s): ? --- Professional --- ? 92978, Esophagogastroduode noscopy, flexible, transoral; with biopsy, ? single or multiple ? 72523, Dilation of esophagus, by unguided sound or bougie, single or ? multiple passes ? --- Technical --- ? 14299, Esophagogastroduode noscopy, flexible, transoral; with biopsy, ? single or multiple ? 57712, Dilation of esophagus, by unguided sound or bougie, single or ? multiple passes Diagnosis Code(s): ? --- Professional --- ? K29.70, Gastritis, unspecified, without bleeding ? R13.10, Dysphagia, unspecified ? K21.9, Gastro-esophageal reflux disease without esophagitis ? K31.84, Gastroparesis ? --- Technical --- ? K29.70, Gastritis, unspecified, without bleeding ? R13.10, Dysphagia, unspecified ? K21.9, Gastro-esophageal reflux disease without esophagitis ? K31.84, Gastroparesis CPT copyright 2017 [employer]. All rights reserved. The codes documented in this report are preliminary and upon hims coder review may be revised to meet current compliance requirements. Dr. Mark Rose MD ____ Mark Rose MD 06/18/2020 12:48:50 PM This report has been signed electronically. Number of Addenda: 0 Note Initiated On: 06/18/2020 12:36 PM [facility] 06/18/2020 12:3 6 PM CDT Mark Rose MD GI PROCEDURE ORDERA CUCO [facility] [place] [address] * US ABDOMEN LTD W ELASTOGRAPHY (06/15/2020 7:47 AM CDT) Anatomical Region Laterality Modality Abdomen Ultrasound 06/15/2020 7:53 AM CDT Impressions 06/15/2020 7:54 AM CDT Hepatic steatosis, surgically absent gallbladder, otherwise unremarkable. Elastography performed. *Reading Radiologist: Dana Patton on 06/15/2020 at 7:54 AM Narrative 06/15/2020 7:54 AM CDT RIGHT UPPER QUADRANT ULTRASOUND INDICATION:Abnormal liver function tests TECHNIQUE: Grayscale images of the right upper quadrant were performed. Gallbladder is surgically absent. The liver is increased in echogenicity as can be seen with steatosis. Common bile duct measures 6.2 mm. The visualized portions of the pancreas are unremarkable. Elastography performed. Average velocity is 1.15 m/s, median velocity 1.17 m/s. Liver Fibrosis Staging ? Metavir Score Velocity(m/s) * ??Normal ?F0 ?0.81 - 1.22 * ??Normal to Mild ?F0 - F1 ? 1.22 - 1.37 * ??Mild to Moderate ?F2 - F3 ?1.37 - 2.00 * ??Moderate to Severe ?F3 - F4 ?2.00 - 2.64+ The right kidney is of normal size, echogenicity and renal cortical thickness and measures 10.8 ?? cm x 4.4 cm x 5.4 cm. Procedure Note Dana Patton MD - 06/15/2020 RIGHT UPPER QUADRANT ULTRASOUND INDICATION:Abnormal liver function tests TECHNIQUE: Grayscale images of the right upper quadrant were performed. Gallbladder is surgically absent. The liver is increased in echogenicity as can be seen with steatosis. Common bile duct measures 6.2 mm. The visualized portions of the pancreas are unremarkable. Elastography performed. Average velocity is 1.15 m/s, median velocity 1.17 m/s. Liver Fibrosis Staging Metavir Score Velocity(m/s) * Normal F0 0.81 - 1.22 * Normal to Mild F0 - F1 1.22 - 1.37 * Mild to Moderate F2 - F3 1.37 - 2.00 * Moderate to Severe F3 - F4 2.00 - 2.64+ The right kidney is of normal size, echogenicity and renal cortical thickness and measures 10.8 cm x 4.4 cm x 5.4 cm. IMPRESSION Hepatic steatosis, surgically absent gallbladder, otherwise unremarkable. Elastography performed. *Reading Radiologist: Dana Patton on 06/15/2020 at 7:54 AM Mark Rose MD US ORDERABLES * LAB (09/16/2019) Scanned Document SCANNING ONLY * DEXA BONE DENSITY AXIAL SKELETON (12/21/2018 2:22 PM CDT) Anatomical Region Laterality Modality Mammography 12/21/2018 2:32 PM CDT Narrative 12/21/2018 2:32 PM CDT BONE MINERAL DENSITY STUDY INDICATION: ??Postmenopausal ovarian failure - osteoporosis screening. FINDINGS: The average bone mineral density from L1 to L4 is1.278 g/cm2. T-score is 0.8. Z-score is 0.4. The average bone mineral density of the total left hip is 1.091 g/cm2. T-score is 0.7. ??Z-score is 0.4. Bone mineral density left femoral neck is 0.923 g/sq cm with T score -0.8 and Z score -0.6. ASSESSMENT: Bone density is up to 10% below young normal. This patient is considered normal according to World Health Organization criteria. Fracture risk is low. WORLD HEALTH ORGANIZATION DEFINITIONS OSTEOPENIA = -1 TO -2.5 SD BELOW T-SCORE. OSTEOPOROSIS = LESS THAN -2.5 SD BELOW T-SCORE Reading Radiologist: Sasha Taylor MD on 12/21/2018 at 2:32 PM Procedure Note Sasha Taylor MD - 12/21/2018 BONE MINERAL DENSITY STUDY INDICATION: Postmenopausal ovarian failure - osteoporosis screening. FINDINGS: The average bone mineral density from L1 to L4 is1.278 g/cm2. T-score is 0.8. Z-score is 0.4. The average bone mineral density of the total left hip is 1.091 g/cm2. T-score is 0.7. Z-score is 0.4. Bone mineral density left femoral neck is 0.923 g/sq cm with T score -0.8 and Z score -0.6. ASSESSMENT: Bone density is up to 10% below young normal. This patient is considered normal according to World Health Organization criteria. Fracture risk is low. WORLD HEALTH ORGANIZATION DEFINITIONS OSTEOPENIA = -1 TO -2.5 SD BELOW T-SCORE. OSTEOPOROSIS = LESS THAN -2.5 SD BELOW T-SCORE Reading Radiologist: Sasha Taylor MD on 12/21/2018 at 2:32 PM Mark Rose MD DEXA ORDERABLES * MAMMO SCREENING DIGITAL IMAGE BILAT G0202 (12/21/2018 2:08 PM CDT) Only the most recent of3 resultswithin the time period is included. Anatomical Region Laterality Modality Breast Bilateral Mammography [...] if suspicious findings are present clinically. An [employer] certified facility. [facility] Centers utilize [employer] as a reminder system to notify patients of their next recommended mammograms. Reading Radiologist: Stevenson Medrano MD on 12/21/2018 at 3:35 PM Anuj Schwartz MD MAMMO ORDERABLES * FL REPR CMPL WND SCALP,EXTR 2.6-7.5, FL EXC SKIN MALIG 1.1-2CM REMAINDR BODY (12/20/2018 8:24 PM CDT) Narrative Eliane Lantigua MD - 12/20/2018 8:24 PM CDT Eliane Lantigua MD ? 12/20/2018 ??8:23 PM Elliptical Excision with Complex Closure Date of Service: 12/20/2018 Surgery: Elliptical excision with complex repair Repair size: ??3.4 cm Tumor Type: squamous cell carcinoma Location: ??right top shoulder Derm-Path A. Lesion Size: 0.7 x 0.6 cm Level of Defect: fat Suture: running subcuticular PDS 3-0;PDS 4-0 Primary Surgeon: ??Grzegorz Stove Installer Surgeon: ??Lauro INDICATIONS: The patient was scheduled for excision of a squamous cell carcinoma on the right top shoulder. ??The risks of bleeding, infection, discomfort, incomplete removal, and scar formation were explained to the patient. ??All questions were answered. ?? After informed consent, confirmation of site and identity, and appropriate instructions, the patient underwent the procedure as follows: PROCEDURE: The lesion was outlined with 0.4 cm margins. ??The lesion and the necessary margin (excised diameter) measured 1.5 x 1.4 cm. ??An ellipse was designed around the lesion to conform to relaxed skin tension lines in an effort to minimize scarring and deformity. ?? The patient was then placed in a supine position. ??The lesion and surrounding skin were prepped with Hibiclens, draped and anesthetized with Lidocaine 1% with epinephrine 1:100,000 buffered with sodium bicarbonate 8.4% in a 1:10 ratio. ??Using a #15 blade the skin was excised along pre-marked lines. ??The resulting defect extended to fat. ??Wound margins were extensively undermined to limit functional deformity/impairment of adjacent structures. ??Bleeding vessels were controlled with monopolar electrodesication. ?? space was closed and wound edges opposed with buried vertical mattress sutures. ??Epidermal approximation was meticulously refined with running subcuticular PDS 4-0 sutures, resulting in a linear closure with little to no wound tension. ??Blood loss was estimated to be less than 5 cc. ??The area was coated with petrolatum and covered with a non-adherent pressure dressing followed by gauze and tape. ??Postoperative instructions were reviewed per protocol. ??The patient left alert and fully oriented. Post-Operative Size: ??1.5 x 1.4 cm Final Wound length: 3.4 cm Sutures Used: ??PDS 3-0;PDS 4-0 Estimated Blood Loss: ??<5 ml Complications: ?? none The Attending surgeon was present for nuñez portions of the procedure and always immediately available. Venancio Restrepo MD Dermatology Mohs Fellow, PGY-5 12/20/2018 4:08 PM Eliane Lantigua MD PROCEDURE/MINOR SURG ICAL ORDERABLES * DERMATOPATHOLOGY (12/20/2018 12:00 AM CDT) Only the most recent of2 resultswithin the time period is included. Case Report Dermatopathology Report ? Case: [id number] ? Authorizing Provider: ??Eliane Lantigua MD ?Collected: ? 12/20/2018 12:00 AM ? Ordering Location: ? [facility] ?? Received: ?12/21/2018 09:45 AM ? Cutaneous Oncology ? Pathologist: ? Zahida Boswell MD ? Specimen: ?Skin, right top of shoulder ? 9 1:10 PM CDT DERMATOPATHOLOGY LABORATORY Final Diagnosis Specimen A. SKIN, right top of shoulder: DERMAL SCAR RESIDUAL SQUAMOUS CELL CARCINOMA NOT IDENTIFIED (L90.5) 9 1:10 PM CDT DERMATOPATHOLOGY LABORATORY Clinical History SCC. Check margins. 9 1:10 PM CDT DERMATOPATHOLOGY LABORATORY Gross Description Specimen A: Received is one formalin filled container labeled with the patient's name and designated right top of shoulder. The specimen consists of an ellipse measuring [id number] and is oriented with the notch at the 12 o'clock position labeled on the requisition as notch at 12 o'clock. The epidermal surface consists of a centrally located 5x5mm previous biopsy site. The 12 to 6 o'clock margin is inked green. The 6 o'clock to 12 o'clock margin is inked black. The 12 o'clock tip is submitted in cassette 1. The 6 o'clock tip is submitted in cassette 2. The remainder of the ellipse is serially sectioned and submitted in cassettes 3-4. Jar 0. 9 1:10 PM T DERMATOPATHOLOGY LABORATORY Microscopic Description Specimen A. SKIN, right top of shoulder: There are fibroblasts and collagen bundles oriented parallel to the skin surface. There are elongated blood vessels, some of which are oriented perpendicular to the skin surface. No residual squamous cell carcinoma is identified. 9 1:10 PM T DERMATOPATHOLOGY LABORATORY Disclaimer An external and internal positive and negative controls are appropriate for the histochemical, immunohistochemical and immunofluorescence stain(s) in this case (if any), except where stated explicitly. The performance characteristics of the stain(s) cited in this report were developed and its performance characteristic determined by the Dermatopathology Laboratory at [facility], directed by Dr. Rich Robles. These tests need not be, and therefore are not, approved by the [place] Food and Drug Administration. The tests are used for clinical purposes. Billing Codes Specimen Charges Stain Charges 11794 1 9 1:10 PM CDT DERMATOPATHOLOGY LABORATORY Embedded Images 9 1:10 PM T DERMATOPATHOLOGY LABORATORY Pathology/Cytolog y TISSUE SPECIMEN FROM SKIN / Unknown 12/20/2018 12/21/2018 9:45 AM CDT Eliane Lantigua MD LAB - PATHOLOGY/CYTO LOGY ORDERABLES DERMATOPATHOLOGY LABORATORY [facility] - Department of Dermatology [address] [place] [address], [address] Floor Lab [address] [phone] * NM GASTRIC EMPTYING (12/16/2017 11:02 AM CDT) Anatomical Region Laterality Modality Abdomen Nuclear Medicine 12/16/2017 11:2 7 AM CDT Impressions 12/16/2017 11:54 AM CDT FINDINGS ARE CONSISTENT WITH DELAYED GASTRIC EMPTYING. Edited by Farzaneh Duron on 12/16/2017 11:49 AM Narrative 12/16/2017 11:54 AM CDT GASTRIC EMPTYING STUDY INDICATION: Heartburn, nausea, vomiting and bloating, constipation and diarrhea. TECHNIQUE: One millicurie technetium was mixed with two eggs and consumed with orange juice. Gastric emptying was calculated, by region of interest. FINDINGS: One hour gastric emptying retention percentage is 96%. 2 hour gastric emptying retention percentage is 54%. 96% retention at one hour is consistent with delayed gastric emptying at one hour. Procedure Note Sasha Taylor MD - 12/16/2017 GASTRIC EMPTYING STUDY INDICATION: Heartburn, nausea, vomiting and bloating, constipation and diarrhea. TECHNIQUE: One millicurie technetium was mixed with two eggs and consumed with orange juice. Gastric emptying was calculated, by region of interest. FINDINGS: One hour gastric emptying retention percentage is 96%. 2 hour gastric emptying retention percentage is 54%. 96% retention at one hour is consistent with delayed gastric emptying at one hour. IMPRESSION FINDINGS ARE CONSISTENT WITH DELAYED GASTRIC EMPTYING. Edited by Farzaneh Duron on 12/16/2017 11:49 AM Mark Rose MD NM ORDERABLES * EGD (12/07/2017 8:24 AM CDT) Report Endoscopy POC __ _ Patient Name: Lucretia Rodriguez ? Procedure Date: 12/07/2017 8:24 AM ? Date of : 1965 ? Admit Type: Outpatient Age: 52 ? Gender: Female Attending MD: Mark Rose MD __ _ Procedure: ? Upper GI endoscopy Indications: ? Abdominal pain in the right upper quadrant, Follow-up of ? gastro-esophageal reflux disease, Nausea Providers: ? Mark Rose MD (Doctor) Referring MD: ?Anuj Schwartz MD (Referring MD) Medicines: ? Monitored Anesthesia Care Complications: ? No immediate complications. Estimated blood loss: None. __ _ Procedure: ? Pre-Anesthesia Assessment: ? - [...] the physician, the ? nurse and the waterway traffic checker in the procedure room. Mental ? Status Examination: alert and oriented. Airway ? Examination: normal oropharyngeal airway and neck ? mobility. Respiratory Examination: clear to auscultation. ? CV Examination: normal. Prophylactic Antibiotics: The ? patient does not require prophylactic antibiotics. Prior ? Anticoagulants: The patient has taken aspirin, last dose ? was 5 days prior to procedure. ASA Grade Assessment: III - ? A patient with severe systemic disease. After reviewing ? the risks and benefits, the patient was deemed in ? satisfactory condition to undergo the procedure. The ? anesthesia plan was to use monitored anesthesia [...] was re-assessed after the procedure. ? After obtaining informed consent, the endoscope was passed ? under direct vision. Throughout the procedure, the ? patient's blood pressure, pulse, and oxygen saturations ? were monitored continuously. The Endoscope was introduced ? through the mouth, and advanced to the second part of ? duodenum. The upper GI endoscopy was accomplished without ? difficulty. The patient tolerated the procedure well. ? Findings: ? The gastroesophageal junction and examined esophagus were normal. ? A small amount of food (residue) was found in the gastric fundus and in ? the gastric body. ? The cardia and gastric antrum were normal. Biopsies were taken with a ? cold forceps for Helicobacter pylori testing using CLOtest. ? The duodenal bulb and 2nd part of the duodenum were normal. Biopsies ? were taken with a cold forceps for histology. __ _ ? Impression: ?- Normal gastroesophageal junction and esophagus. ? - A small amount of food (residue) in the stomach. ? - Normal cardia and antrum. Biopsied. ? - Normal duodenal bulb and 2nd part of the duodenum. ? Biopsied. Recommendation: ?- Await pathology results. ? - If biopsies are negative, will check a gastric emptying ? study ? - Continue Dexilant 60mg PO Qday ? Procedure Code(s): ? --- Professional --- ? 45794, Esophagogastroduode noscopy, flexible, transoral; with biopsy, ? single or multiple ? --- Technical --- ? 53725, Esophagogastroduode noscopy, flexible, transoral; with biopsy, ? single or multiple Diagnosis Code(s): ? --- Professional --- ? R10.11, Right upper quadrant pain ? K21.9, Gastro-esophageal reflux disease without esophagitis ? R11.0, Nausea ? --- Technical --- ? R10.11, Right upper quadrant pain ? K21.9, Gastro-esophageal reflux disease without esophagitis ? R11.0, Nausea CPT copyright 2015 [employer]. All rights reserved. The codes documented in this report are preliminary and upon hims coder review may be revised to meet current compliance requirements. Dr. Mark Rose MD ____ Mark Rose MD 12/07/2017 8:52:24 AM This report has been signed electronically. Number of Addenda: 0 Note Initiated On: 12/07/2017 8:24 AM [facility] 12/07/2017 8:24 AM CDT Mark Rose MD GI PROCEDURE ORDERA [facility] [place] [address] * IR VENOGRAM PROCEDURAL CODE (06/30/2017 11:31 AM CDT) Anatomical Region Laterality Modality Other Impressions 07/01/2017 9:05 AM CDT Impression: 1. ??Transjugular liver biopsy under fluoroscopy guidance, as described above. 2. ??Hepatic venogram with pressure measurements. Portosystemic gradient measures 10mm Hg. Note: The pathology results are pending during this dictation. Dr. Nguyen performed/was present throughout the procedure and provided the moderate sedation service. Please see the nursing sedation flowsheet. This report was approved ??by Sanket Mcleod ?? on 06/30/2017 12:25 PM . I, Dr. MICHELLE NGUYEN have personally reviewed and interpreted this examination/study. This report was electronically signed by MICHELLE NGUYEN ??on 07/01/2017 9:05 AM . Narrative 07/01/2017 9:05 AM CDT History: 51-year-old female with past medical history of morbid obesity status post laparoscopic banding, metabolic disease, and intermittent right upper quadrant pain. Patient has history of diffuse hepatic steatosis on prior CT and ultrasound imaging as well as elastography which confirmed diffuse fatty infiltration. Concern for BOONE cirrhosis. Operators: 1. ??Dr. Michelle Nguyen, Attending Physician 2. ??Dr. Sanket Mcleod, Resident Physician Anesthesia: 1. ??Local anesthesia - 10 ml of 1% lidocaine 2. ??Intravenous conscious sedation - Versed 2 mg and Fentanyl 100 mcg Procedure: 1. ??Ultrasound-guided access of the right internal jugular vein. 2. ??Hepatic venogram with pressure measurement. 3. ??Transcatheter biopsy of the liver under fluoroscopic guidance. Start time: 1101 hours ?End time: 1130 hours ? Sedation initiated time: 1101 hours Fluoroscopic time: 6 minutes ?Contrast: 20 mL of Omnipaque 240 Procedure in detail: The procedure, risks and possible complications were explained to the patient in detail, and an informed consent was obtained. The patient was placed supine on the angiographic table. The patient received intravenous Versed and Fentanyl for conscious sedation. A qualified radiology nurse monitored the patient?s vital signs throughout the procedure. The right neck was prepped and draped in the usual sterile manner. Limited ultrasound of right internal jugular vein demonstrated patent and compressible internal jugular vein. A kelley scale image was documented. After instillation with 1 % local lidocaine, a small skin incision was made in the right lower neck. Under real time ultrasound guidance, the right internal jugular vein was accessed using a micro-puncture needle. The needle entry was documented. After series of exchanges a ??10 Norwegian vascular sheath was placed. Using a 5 Norwegian Kumpe catheter and Glidewire, the right hepatic vein was catheterized and a venogram was obtained. The venogram showed normal right hepatic vein. With the catheter tip wedged in a peripheral hepatic vein, pressures were measured in the hepatic veins and right atrium. Right atrium: 6 mm Hg Right free hepatic vein: 14 mm Hg Wedged hepatic pressure = portal pressure: 16 mm Hg Hepatic venous pressure gradient: 2 mm Hg (wedged - free hepatic vein) Hepatic atrial pressure gradient: 10 mm Hg (wedged - right atrial) A stiffer 0.035 Amplatz wire was placed in the right hepatic vein and using PatientKeeper transjugular biopsy set, 3 core samples were obtained. Samples were given to pathology service. Post-biopsy venogram was unremarkable. The sheath was removed and hemostasis was achieved with manual compression. Sterile dressing was applied and the patient was transferred in stable condition. The patient tolerated the procedure well and was transferred to the holding area in stable condition. There were no immediate complications associated with the procedure. Procedure Note Michelle Nguyen MD - 12/04/2017 History: 51-year-old female with past medical history of morbid obesitystatus post laparoscopic banding, metabolic disease, and intermittentright upper quadrant pain. Patient has history of diffuse hepaticsteatosis on prior CT and ultrasound imaging as well as elastography which confirmed diffuse fatty infiltration.Concern for BOONE cirrhosis. Operators: 1. Dr. Michelle Nguyen, Attending Physician 2. Dr. Sanket Mcleod, Resident Physician Anesthesia: 1. Local anesthesia - 10 ml of 1% lidocaine 2. Intravenous conscious sedation - Versed 2 mg and Fentanyl 100 mcg Procedure: 1. Ultrasound-guided access of the right internal jugular vein. 2. Hepatic venogram with pressure measurement. 3. Transcatheter biopsy of the liver under fluoroscopic guidance. Start time: 1101 hours End time: 1130 hours Sedation initiatedtime: 1101 hours Fluoroscopic time: 6 minutes Contrast: 20 mL of Omnipaque 240 Procedure in detail: The procedure, risks and possible complications were explained to thepatient in detail, and an informed consent was obtained. The patient wasplaced supine on the angiographic table. The patient received intravenous Versed and Fentanyl for conscioussedation. A qualified radiology nurse monitored the patient?s vital signsthroughout the procedure. The right neck was prepped and draped in the usual sterile manner. Limitedultrasound of right internal jugular vein demonstrated patent andcompressible internal jugular vein. A kelley scale image was documented.After instillation with 1 % local lidocaine, a small skin incision was made in the right lower neck. Underreal time ultrasound guidance, the right internal jugular vein wasaccessed using a micro-puncture needle. The needle entry was documented.After series of exchanges a 10 Norwegian vascular sheath was placed. Using a 5 Norwegian Kumpe catheter and Glidewire, the right hepatic vein wascatheterized and a venogram was obtained. The venogram showed normal righthepatic vein. With the catheter tip wedged in a peripheral hepatic vein,pressures were measured in the hepatic veins and right atrium. Right atrium: 6 mm Hg Right free hepatic vein: 14 mm Hg Wedged hepatic pressure = portal pressure: 16 mm Hg Hepatic venous pressure gradient: 2 mm Hg (wedged - free hepatic vein) Hepatic atrial pressure gradient: 10 mm Hg (wedged - right atrial) A stiffer 0.035 Amplatz wire was placed in the right hepatic vein andusing PatientKeeper transjugular biopsy set, 3 core samples were obtained. Sampleswere given to pathology service. Post-biopsy venogram was unremarkable. The sheath was removed and hemostasis was achieved with manualcompression. Sterile dressing was applied and the patient was transferredin stable condition. The patient tolerated the procedure well [facility] There were no immediate complicationsassociated with the procedure. IMPRESSION Impression: 1. Transjugular liver biopsy under fluoroscopy guidance, as describedabove. 2. Hepatic venogram with pressure measurements. Portosystemic gradientmeasures 10mm Hg. Note: The pathology results are pending during this dictation. Dr. Nguyen performed/was present throughout the procedure and provided themoderate sedation service. Please see the nursing sedation flowsheet. This report was approved by Sanket Mcleod on 06/30/2017 12:25 PM . I, Dr. MICHELLE NGUYEN have personally reviewed and interpreted thisexamination/study. This report was electronically signed by MICHELLE NGUYEN on 07/01/2017 9:05 AM. Neena Flores MD IR ORD ERABLES * IR US GUIDE VASCULAR ACCESS (06/30/2017 11:31 AM CDT) Anatomical Region Laterality Modality Other Impressions 07/01/2017 9:05 AM CDT Impression: 1. ??Transjugular liver biopsy under fluoroscopy guidance, as described above. 2. ??Hepatic venogram with pressure measurements. Portosystemic gradient measures 10mm Hg. Note: The pathology results are pending during this dictation. Dr. Nguyen performed/was present throughout the procedure and provided the moderate sedation service. Please see the nursing sedation flowsheet. This report was approved ??by Sanket Mcleod ?? on 06/30/2017 12:25 PM . I, Dr. MICHELLE NGUYEN have personally reviewed and interpreted this examination/study. This report was electronically signed by MICHELLE NGUYEN ??on 07/01/2017 9:05 AM . Narrative 07/01/2017 9:05 AM CDT History: 51-year-old female with past medical history of morbid obesity status post laparoscopic banding, metabolic disease, and intermittent right upper quadrant pain. Patient has history of diffuse hepatic steatosis on prior CT and ultrasound imaging as well as elastography which confirmed diffuse fatty infiltration. Concern for BOONE cirrhosis. Operators: 1. ??Dr. Michelle Nguyen, Attending Physician 2. ??Dr. Sanket Mcleod, Resident Physician Anesthesia: 1. ??Local anesthesia - 10 ml of 1% lidocaine 2. ??Intravenous conscious sedation - Versed 2 mg and Fentanyl 100 mcg Procedure: 1. ??Ultrasound-guided access of the right internal jugular vein. 2. ??Hepatic venogram with pressure measurement. 3. ??Transcatheter biopsy of the liver under fluoroscopic guidance. Start time: 1101 hours ?End time: 1130 hours ? Sedation initiated time: 1101 hours Fluoroscopic time: 6 minutes ?Contrast: 20 mL of Omnipaque 240 Procedure in detail: The procedure, risks and possible complications were explained to the patient in detail, and an informed consent was obtained. The patient was placed supine on the angiographic table. The patient received intravenous Versed and Fentanyl for conscious sedation. A qualified radiology nurse monitored the patient?s vital signs throughout the procedure. The right neck was prepped and draped in the usual sterile manner. Limited ultrasound of right internal jugular vein demonstrated patent and compressible internal jugular vein. A kelley scale image was documented. After instillation with 1 % local lidocaine, a small skin incision was made in the right lower neck. Under real time ultrasound guidance, the right internal jugular vein was accessed using a micro-puncture needle. The needle entry was documented. After series of exchanges a ??10 Norwegian vascular sheath was placed. Using a 5 Norwegian Kumpe catheter and Glidewire, the right hepatic vein was catheterized and a venogram was obtained. The venogram showed normal right hepatic vein. With the catheter tip wedged in a peripheral hepatic vein, pressures were measured in the hepatic veins and right atrium. Right atrium: 6 mm Hg Right free hepatic vein: 14 mm Hg Wedged hepatic pressure = portal pressure: 16 mm Hg Hepatic venous pressure gradient: 2 mm Hg (wedged - free hepatic vein) Hepatic atrial pressure gradient: 10 mm Hg (wedged - right atrial) A stiffer 0.035 Amplatz wire was placed in the right hepatic vein and using PatientKeeper transjugular biopsy set, 3 core samples were obtained. Samples were given to pathology service. Post-biopsy venogram was unremarkable. The sheath was removed and hemostasis was achieved with manual compression. Sterile dressing was applied and the patient was transferred in stable condition. The patient tolerated the procedure well and was transferred to the holding area in stable condition. There were no immediate complications associated with the procedure. Procedure Note Michelle Nguyen MD - 12/04/2017 History: 51-year-old female with past medical history of morbid obesitystatus post laparoscopic banding, metabolic disease, and intermittentright upper quadrant pain. Patient has history of diffuse hepaticsteatosis on prior CT and ultrasound imaging as well as elastography which confirmed diffuse fatty infiltration.Concern for BOONE cirrhosis. Operators: 1. Dr. Michelle Nguyen, Attending Physician 2. Dr. Sanket Mcleod, Resident Physician Anesthesia: 1. Local anesthesia - 10 ml of 1% lidocaine 2. Intravenous conscious sedation - Versed 2 mg and Fentanyl 100 mcg Procedure: 1. Ultrasound-guided access of the right internal jugular vein. 2. Hepatic venogram with pressure measurement. 3. Transcatheter biopsy of the liver under fluoroscopic guidance. Start time: 1101 hours End time: 1130 hours Sedation initiatedtime: 1101 hours Fluoroscopic time: 6 minutes Contrast: 20 mL of Omnipaque 240 Procedure in detail: The procedure, risks and possible complications were explained to thepatient in detail, and an informed consent was obtained. The patient wasplaced supine on the angiographic table. The patient received intravenous Versed and Fentanyl for conscioussedation. A qualified radiology nurse monitored the patient?s vital signsthroughout the procedure. The right neck was prepped and draped in the usual sterile manner. Limitedultrasound of right internal jugular vein demonstrated patent andcompressible internal jugular vein. A kelley scale image was documented.After instillation with 1 % local lidocaine, a small skin incision was made in the right lower neck. Underreal time ultrasound guidance, the right internal jugular vein wasaccessed using a micro-puncture needle. The needle entry was documented.After series of exchanges a 10 Norwegian vascular sheath was placed. Using a 5 Norwegian Kumpe catheter and Glidewire, the right hepatic vein wascatheterized and a venogram was obtained. The venogram showed normal righthepatic vein. With the catheter tip wedged in a peripheral hepatic vein,pressures were measured in the hepatic veins and right atrium. Right atrium: 6 mm Hg Right free hepatic vein: 14 mm Hg Wedged hepatic pressure = portal pressure: 16 mm Hg Hepatic venous pressure gradient: 2 mm Hg (wedged - free hepatic vein) Hepatic atrial pressure gradient: 10 mm Hg (wedged - right atrial) A stiffer 0.035 Amplatz wire was placed in the right hepatic vein andusing PatientKeeper transjugular biopsy set, 3 core samples were obtained. Sampleswere given to pathology service. Post-biopsy venogram was unremarkable. The sheath was removed and hemostasis was achieved with manualcompression. Sterile dressing was applied and the patient was transferredin stable condition. The patient tolerated the procedure well and [facility] There were no immediate complicationsassociated with the procedure. IMPRESSION Impression: 1. Transjugular liver biopsy under fluoroscopy guidance, as describedabove. 2. Hepatic venogram with pressure measurements. Portosystemic gradientmeasures 10mm Hg. Note: The pathology results are pending during this dictation. Dr. Nguyen performed/was present throughout the procedure and provided themoderate sedation service. Please see the nursing sedation flowsheet. This report was approved by Sanket Mcleod on 06/30/2017 12:25 PM . I, Dr. MICHELLE NGUYEN have personally reviewed and interpreted thisexamination/study. This report was electronically signed by MICHELLE NGUYEN on 07/01/2017 9:05 AM. Neena Flores MD IR ORD ERABLES * IR BIOPSY TRANSCATHETER (06/30/2017 11:31 AM CDT) Only the most recent of2 resultswithin the time period is included. Anatomical Region Laterality Modality Abdomen, Lung, Chest Other Impressions 07/01/2017 9:05 AM CDT Impression: 1. ??Transjugular liver biopsy under fluoroscopy guidance, as described above. 2. ??Hepatic venogram with pressure measurements. Portosystemic gradient measures 10mm Hg. Note: The pathology results are pending during this dictation. Dr. Nguyen performed/was present throughout the procedure and provided the moderate sedation service. Please see the nursing sedation flowsheet. This report was approved ??by Sanket Mcleod ?? on 06/30/2017 12:25 PM . I, Dr. MICHELLE NGUYEN have personally reviewed and interpreted this examination/study. This report was electronically signed by MICHELLE NGUYEN ??on 07/01/2017 9:05 AM . Narrative 07/01/2017 9:05 AM CDT History: 51-year-old female with past medical history of morbid obesity status post laparoscopic banding, metabolic disease, and intermittent right upper quadrant pain. Patient has history of diffuse hepatic steatosis on prior CT and ultrasound imaging as well as elastography which confirmed diffuse fatty infiltration. Concern for BOONE cirrhosis. Operators: 1. ??Dr. Michelle Nguyen, Attending Physician 2. ??Dr. Sanket Mcleod, Resident Physician Anesthesia: 1. ??Local anesthesia - 10 ml of 1% lidocaine 2. ??Intravenous conscious sedation - Versed 2 mg and Fentanyl 100 mcg Procedure: 1. ??Ultrasound-guided access of the right internal jugular vein. 2. ??Hepatic venogram with pressure measurement. 3. ??Transcatheter biopsy of the liver under fluoroscopic guidance. Start time: 1101 hours ?End time: 1130 hours ? Sedation initiated time: 1101 hours Fluoroscopic time: 6 minutes ?Contrast: 20 mL of Omnipaque 240 Procedure in detail: The procedure, risks and possible complications were explained to the patient in detail, and an informed consent was obtained. The patient was placed supine on the angiographic table. The patient received intravenous Versed and Fentanyl for conscious sedation. A qualified radiology nurse monitored the patient?s vital signs throughout the procedure. The right neck was prepped and draped in the usual sterile manner. Limited ultrasound of right internal jugular vein demonstrated patent and compressible internal jugular vein. A kelley scale image was documented. After instillation with 1 % local lidocaine, a small skin incision was made in the right lower neck. Under real time ultrasound guidance, the right internal jugular vein was accessed using a micro-puncture needle. The needle entry was documented. After series of exchanges a ??10 Norwegian vascular sheath was placed. Using a 5 Norwegian Kumpe catheter and Glidewire, the right hepatic vein was catheterized and a venogram was obtained. The venogram showed normal right hepatic vein. With the catheter tip wedged in a peripheral hepatic vein, pressures were measured in the hepatic veins and right atrium. Right atrium: 6 mm Hg Right free hepatic vein: 14 mm Hg Wedged hepatic pressure = portal pressure: 16 mm Hg Hepatic venous pressure gradient: 2 mm Hg (wedged - free hepatic vein) Hepatic atrial pressure gradient: 10 mm Hg (wedged - right atrial) A stiffer 0.035 Amplatz wire was placed in the right hepatic vein and using PatientKeeper transjugular biopsy set, 3 core samples were obtained. Samples were given to pathology service. Post-biopsy venogram was unremarkable. The sheath was removed and hemostasis was achieved with manual compression. Sterile dressing was applied and the patient was transferred in stable condition. The patient tolerated the procedure well and was transferred to the holding area in stable condition. There were no immediate complications associated with the procedure. Procedure Note Michelle Nguyen MD - 12/04/2017 History: 51-year-old female with past medical history of morbid obesitystatus post laparoscopic banding, metabolic disease, and intermittentright upper quadrant pain. Patient has history of diffuse hepaticsteatosis on prior CT and ultrasound imaging as well as elastography which confirmed diffuse fatty infiltration.Concern for BOONE cirrhosis. Operators: 1. Dr. Michelle Nguyen, Attending Physician 2. Dr. Sanket Mcleod, Resident Physician Anesthesia: 1. Local anesthesia - 10 ml of 1% lidocaine 2. Intravenous conscious sedation - Versed 2 mg and Fentanyl 100 mcg Procedure: 1. Ultrasound-guided access of the right internal jugular vein. 2. Hepatic venogram with pressure measurement. 3. Transcatheter biopsy of the liver under fluoroscopic guidance. Start time: 1101 hours End time: 1130 hours Sedation initiatedtime: 1101 hours Fluoroscopic time: 6 minutes Contrast: 20 mL of Omnipaque 240 Procedure in detail: The procedure, risks and possible complications were explained to thepatient in detail, and an informed consent was obtained. The patient wasplaced supine on the angiographic table. The patient received intravenous Versed and Fentanyl for conscioussedation. A qualified radiology nurse monitored the patient?s vital signsthroughout the procedure. The right neck was prepped and draped in the usual sterile manner. Limitedultrasound of right internal jugular vein demonstrated patent andcompressible internal jugular vein. A kelley scale image was documented.After instillation with 1 % local lidocaine, a small skin incision was made in the right lower neck. Underreal time ultrasound guidance, the right internal jugular vein wasaccessed using a micro-puncture needle. The needle entry was documented.After series of exchanges a 10 Norwegian vascular sheath was placed. Using a 5 Norwegian brands4friendspe catheter and Glidewire, the right hepatic vein wascatheterized and a venogram was obtained. The venogram showed normal righthepatic vein. With the catheter tip wedged in a peripheral hepatic vein,pressures were measured in the hepatic veins and right atrium. Right atrium: 6 mm Hg Right free hepatic vein: 14 mm Hg Wedged hepatic pressure = portal pressure: 16 mm Hg Hepatic venous pressure gradient: 2 mm Hg (wedged - free hepatic vein) Hepatic atrial pressure gradient: 10 mm Hg (wedged - right atrial) A stiffer 0.035 Amplatz wire was placed in the right hepatic vein andusing PatientKeeper transjugular biopsy set, 3 core samples were obtained. Sampleswere given to pathology service. Post-biopsy venogram was unremarkable. The sheath was removed and hemostasis was achieved with manualcompression. Sterile dressing was applied and the patient was transferredin stable condition. The patient tolerated the procedure well [facility] There were no immediate complicationsassociated with the procedure. IMPRESSION Impression: 1. Transjugular liver biopsy under fluoroscopy guidance, as describedabove. 2. Hepatic venogram with pressure measurements. Portosystemic gradientmeasures 10mm Hg. Note: The pathology results are pending during this dictation. Dr. Nguyen performed/was present throughout the procedure and provided themoderate sedation service. Please see the nursing sedation flowsheet. This report was approved by Sanket Mcleod on 06/30/2017 12:[address] MICHELLE Beth have personally reviewed and interpreted thisexamination/study. This report was electronically signed by MICHELLE NGUYEN on 07/01/2017 9:05 AM. Neena Flores MD IR ORD ERABLES * IR VENOGRAM HEPATIC W HEMODYNAMICS (06/30/2017 11:31 AM CDT) Anatomical Region Laterality Modality Abdomen Other Impressions 07/01/2017 9:05 AM CDT Impression: 1. ??Transjugular liver biopsy under fluoroscopy guidance, as described above. 2. ??Hepatic venogram with pressure measurements. Portosystemic gradient measures 10mm Hg. Note: The pathology results are pending during this dictation. Dr. Nguyen performed/was present throughout the procedure and provided the moderate sedation service. Please see the nursing sedation flowsheet. This report was approved ??by Sanket Mcleod ?? on 06/30/2017 12:25 PM . I, Dr. MICHELLE NGUYEN have personally reviewed and interpreted this examination/study. This report was electronically signed by MICHELLE NGUYEN ??on 07/01/2017 9:05 AM . Narrative 07/01/2017 9:05 AM CDT History: 51-year-old female with past medical history of morbid obesity status post laparoscopic banding, metabolic disease, and intermittent right upper quadrant pain. Patient has history of diffuse hepatic steatosis on prior CT and ultrasound imaging as well as elastography which confirmed diffuse fatty infiltration. Concern for BOONE cirrhosis. Operators: 1. ??Dr. Michelle Nguyen, Attending Physician 2. ??Dr. Sanket Mcleod, Resident Physician Anesthesia: 1. ??Local anesthesia - 10 ml of 1% lidocaine 2. ??Intravenous conscious sedation - Versed 2 mg and Fentanyl 100 mcg Procedure: 1. ??Ultrasound-guided access of the right internal jugular vein. 2. ??Hepatic venogram with pressure measurement. 3. ??Transcatheter biopsy of the liver under fluoroscopic guidance. Start time: 1101 hours ?End time: 1130 hours ? Sedation initiated time: 1101 hours Fluoroscopic time: 6 minutes ?Contrast: 20 mL of Omnipaque 240 Procedure in detail: The procedure, risks and possible complications were explained to the patient in detail, and an informed consent was obtained. The patient was placed supine on the angiographic table. The patient received intravenous Versed and Fentanyl for conscious sedation. A qualified radiology nurse monitored the patient?s vital signs throughout the procedure. The right neck was prepped and draped in the usual sterile manner. Limited ultrasound of right internal jugular vein demonstrated patent and compressible internal jugular vein. A kelley scale image was documented. After instillation with 1 % local lidocaine, a small skin incision was made in the right lower neck. Under real time ultrasound guidance, the right internal jugular vein was accessed using a micro-puncture needle. The needle entry was documented. After series of exchanges a ??10 Norwegian vascular sheath was placed. Using a 5 Norwegian Kumpe catheter and Glidewire, the right hepatic vein was catheterized and a venogram was obtained. The venogram showed normal right hepatic vein. With the catheter tip wedged in a peripheral hepatic vein, pressures were measured in the hepatic veins and right atrium. Right atrium: 6 mm Hg Right free hepatic vein: 14 mm Hg Wedged hepatic pressure = portal pressure: 16 mm Hg Hepatic venous pressure gradient: 2 mm Hg (wedged - free hepatic vein) Hepatic atrial pressure gradient: 10 mm Hg (wedged - right atrial) A stiffer 0.035 Amplatz wire was placed in the right hepatic vein and using PatientKeeper transjugular biopsy set, 3 core samples were obtained. Samples were given to pathology service. Post-biopsy venogram was unremarkable. The sheath was removed and hemostasis was achieved with manual compression. Sterile dressing was applied and the patient was transferred in stable condition. The patient tolerated the procedure well and was transferred to the holding area in stable condition. There were no immediate complications associated with the procedure. Procedure Note Michelle Nguyen MD - 12/04/2017 History: 51-year-old female with past medical history of morbid obesitystatus post laparoscopic banding, metabolic disease, and intermittentright upper quadrant pain. Patient has history of diffuse hepaticsteatosis on prior CT and ultrasound imaging as well as elastography which confirmed diffuse fatty infiltration.Concern for BOONE cirrhosis. Operators: 1. Dr. Michelle Nguyen, Attending Physician 2. Dr. Sanket Mcleod, Resident Physician Anesthesia: 1. Local anesthesia - 10 ml of 1% lidocaine 2. Intravenous conscious sedation - Versed 2 mg and Fentanyl 100 mcg Procedure: 1. Ultrasound-guided access of the right internal jugular vein. 2. Hepatic venogram with pressure measurement. 3. Transcatheter biopsy of the liver under fluoroscopic guidance. Start time: 1101 hours End time: 1130 hours Sedation initiatedtime: 1101 hours Fluoroscopic time: 6 minutes Contrast: 20 mL of Omnipaque 240 Procedure in detail: The procedure, risks and possible complications were explained to thepatient in detail, and an informed consent was obtained. The patient wasplaced supine on the angiographic table. The patient received intravenous Versed and Fentanyl for conscioussedation. A qualified radiology nurse monitored the patient?s vital signsthroughout the procedure. The right neck was prepped and draped in the usual sterile manner. Limitedultrasound of right internal jugular vein demonstrated patent andcompressible internal jugular vein. A kelley scale image was documented.After instillation with 1 % local lidocaine, a small skin incision was made in the right lower neck. Underreal time ultrasound guidance, the right internal jugular vein wasaccessed using a micro-puncture needle. The needle entry was documented.After series of exchanges a 10 Norwegian vascular sheath was placed. Using a 5 Norwegian Kumpe catheter and Glidewire, the right hepatic vein wascatheterized and a venogram was obtained. The venogram showed normal righthepatic vein. With the catheter tip wedged in a peripheral hepatic vein,pressures were measured in the hepatic veins and right atrium. Right atrium: 6 mm Hg Right free hepatic vein: 14 mm Hg Wedged hepatic pressure = portal pressure: 16 mm Hg Hepatic venous pressure gradient: 2 mm Hg (wedged - free hepatic vein) Hepatic atrial pressure gradient: 10 mm Hg (wedged - right atrial) A stiffer 0.035 Amplatz wire was placed in the right hepatic vein andusing PatientKeeper transjugular biopsy set, 3 core samples were obtained. Sampleswere given to pathology service. Post-biopsy venogram was unremarkable. The sheath was removed and hemostasis was achieved with manualcompression. Sterile dressing was applied and the patient was transferredin stable condition. The patient tolerated the procedure well and [facility]. There were no immediate complicationsassociated with the procedure. IMPRESSION Impression: 1. Transjugular liver biopsy under fluoroscopy guidance, as describedabove. 2. Hepatic venogram with pressure measurements. Portosystemic gradientmeasures 10mm Hg. Note: The pathology results are pending during this dictation. Dr. Nguyen performed/was present throughout the procedure and provided themoderate sedation service. Please see the nursing sedation flowsheet. This report was approved by Sanket Mcleod on 06/30/2017 12:25 PM . I, Dr. MICHELLE NGUYEN have personally reviewed and interpreted thisexamination/study. This report was electronically signed by MICHELLE NGUYEN on 07/01/2017 9:05 AM. Neena AYALA * PATHOLOGY TISSUE (06/30/2017 11:11 AM CDT) Surgical Pathology Tissue ACCESSION No: [id number] CLINICAL HISTORY: Fatty liver, liver biopsy. FINAL DIAGNOSIS: Liver, needle core biopsy: - ??Steatohepatitis, total NAFLD activity score 3/8 - ??Focal perisinusoidal fibrosis, stage 1a - ??See comment MICROSCOPIC DESCRIPTION AND COMMENT: The liver biopsy consists of 3 cores of liver parenchyma. 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 Interlobular bile ducts are unremarkable. The liver has mild macrovesicular steatosis (grade 1), with large droplet fat involving 30% of the hepatocytes in a predominantly zone 3 distribution. Few ballooned hepatocytes with Ashlee-Denk bodies are seen (grade 1). There is mild lobular inflammation (grade 1, <2 foci/20x field). ??The trichrome stain highlights very focal perisinusoidal fibrosis. The reticulin stain shows foci of condensation. The PAS-D stain is negative for iiush-6-yqtiopwydhx globules. Iron stain is negative. 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 The total NAFLD activity score is 3/8, and the fibrosis is consistent with a very early stage 1a. TAMI/MICAELA GROSS DESCRIPTION: Submitted fixed in formalin in one container labeled with the patient's name, Lucretia Rodriguez, and liver biopsy , are three soft, yellow-dunaway tissue cores measuring 1.1, 1.5, and 1.5 cm in length x 0.1 cm in diameter. ??The specimen is submitted in toto as A1. SARAH/met The performance characteristics of all immunohistochemical and indirect immunofluorescence stains (if any) cited in this report were determined by the [facility]opathology Laboratory of [facility].?? Some of these tests were developed by our own laboratory and have not been cleared or approved by the US Food and Drug Administration.?The FDA does not require this test to go through premarket FDA review.?These tests are used for clinical purposes. They should not be regarded as investigational or for research.?? This laboratory is certified under the Clinical Laboratory Improvement Amendments (CLIA) as qualified to perform high complexity clinical laboratory testing. This case has been personally reviewed and interpreted by the attending (teaching) pathologist. Final Diagnosis performed by Gregoria Gómez MD. Electronically signed 07/01/[address] [facility] ([facility]) Biopsy, Needle ENTIRE LIVER / Unknown 06/30/2017 11:11 AM CDT 06/30/2017 12:[address] [facility] ([facility]) - 07/01/2017 3:59 PM CDT PROBLEM LIST: The problems are not reviewed yet. Please review them in the Problem List activity and refresh this SmartLink. PRE-OP DIAGNOSIS: ??* No pre-op diagnosis entered * OPERATIVE PROCEDURE / FINDINGS: ??* No procedures listed * POST-OP DIAGNOSIS: * No post-op diagnosis entered * Neena Flores MD LAB - PATHOLOGY/CYTOLOGY ORDERABLES [facility] ([facility]) * PT-INR [facility] (06/10/2017 7:27 AM CDT) INR 1.0 0.8 - 1.2 [facility] ([facility]) Comment: Reference interval is for non-anticoagulated patients. Suggested INR therapeutic range for Vitamin K antagonist therapy: ?? Standard Dose (moderate intensity ?therapeutic range): ? 2.0 - 3.0 ?? Higher intensity therapeutic range ? 2.5 - 3.5 PT 10.5 9.1 - 12.0 sec [facility] ([facility]) Blood specimen (specimen) BLOOD SPECIMEN / Unknown 06/10/2017 7:27 AM CDT 06/10/2017 Narrative [facility] D[facility]REL [facility]) - 06/11/2017 7:13 AM CDT Is patient on Heparin, Argatroban or Dabigatran?->N Performed at: ??[address] ??[id number] Slip Caster: Gilberto Malhotra PhD, Phone: ??[phone] Neena Flores MD LAB - COAGULATION ORDERABLES Performing Organization Address City/[facility] Co de Phone Number [facility]) * HEPATITIS C AB W/RFLX TO HCV RNA QN PCR (06/10/2017 7:27 AM CDT) Hepatitis C Antibody 0.1 0.0 - 0.9 s/co ratio [facility]) 06/10/2017 7:27 AM CDT 06/10/2017 Narrative [facility]) - 06/11/2017 8:23 AM CDT Performed at: ??[address] ??[id number] Slip Caster: Gilberto Malhotra PhD, Phone: ??[phone] Neena Flores MD LAB - CHEMISTRY ORDERABLES Performing Organization Address City/[facility]/ZIP Co de Phone Number [facility]) * INTERPRETATION (7) (06/10/2017 7:27 AM CDT) Interpretation [facility] Nehemiah EDWARDS) Comment: Negative Not infected with HCV, unless recent infection is suspected or other evidence exists to indicate HCV infection. 06/10/2017 7:27 AM CDT 06/10/2017 Narrative [facility]) - 06/11/2017 8:23 AM CDT Performed at: ??01 - [facility] [address] ??[id number] Slip Caster: Gilberto Malhotra PhD, Phone: ??[phone] Neena Flores MD LAB - SEROLOGY ORDERABLES Performing Organization Address [facility] de Phone Number [facility] ([facility]) * MITOCHONDRIAL ANTIBODY SCREEN (06/10/2017 7:27 AM CDT) Only the most recent of2 resultswithin the time period is included. Mitochondrial M2 Antibody <20.0 0.0 - 20.0 Units [facility] ([facility]) Comment: ?Negative ?0.0 - 20.0 ?Equivocal ??20.1 - 24.9 ?Positive ? >24.9 Mitochondrial (M2) Antibodies are found in 90-96% of patients with primary biliary cirrhosis. Blood specimen (specimen) BLOOD SPECIMEN / Unknown 06/10/2017 7:27 AM CDT 06/10/2017 Narrative [facility] ([facility]) - 06/11/2017 5:11 PM CDT Performed at: ??01 - [facility] [address] ??[id number] Slip Caster: Gilberto Malhotra PhD, Phone: ??[phone] Neena Flores MD LAB - CHEMISTRY ORDERABLES Performing Organization Address [facility] Co de Phone Number [facility] ([facility]) * SONJA BLOOD SCREEN W/REFLEX TITER (06/10/2017 7:27 AM CDT) Only the most recent of2 resultswithin the time period is included. SONJA IFA Negative [facility] ([facility]) Comment: ? Negative ?? <1:80 ? Borderline ??1:80 ? Positive ?? >1:80 Blood specimen (specimen) BLOOD SPECIMEN / Unknown 06/10/2017 7:27 AM CDT 06/10/2017 Narrative [facility] ([facility]) - 06/12/2017 5:10 PM CDT Performed at: ??01 - [address] ??[id number] Slip Caster: Gilberto Malhotra PhD, Phone: ??[phone] Neena Flores MD LAB - CHEMISTRY ORDERABLES Performing Organization Address City/State/[facility] Co de Phone Number [facility]) * CERULOPLASMIN (06/10/2017 7:27 AM CDT) Ceruloplasmin 36.7 19.0 - 39.0 mg/dL [facility] ([facility]) Blood specimen (specimen) BLOOD SPECIMEN / Unknown 06/10/2017 7:27 AM CDT 06/10/2017 Narrative [facility] ([facility]) - 06/11/2017 7:13 AM CDT Performed at: ??01 - [address] ??[id number] Slip Caster: Gilberto Malhotra PhD, Phone: ??[phone] Neena Flores MD LAB - CHEMISTRY ORDERABLES Performing Organization Address [facility] Co de Phone Number [facility] ([facility]) * VNJUY-0-YGBDAUDFFSQ BLOOD (06/10/2017 7:27 AM CDT) Pathologist [facility] Fproj-2-Dmldmxd psin 114 90 - 200 mg/dL [facility] Blood specimen (specimen) BLOOD SPECIMEN / Unknown 06/10/2017 7:27 AM CDT 06/10/2017 Narrative [facility] ([facility]) - 06/11/2017 7:13 AM CDT Performed at: ??01 - [address] ??[id number] Slip Caster: Gilberto Malhotra PhD, Phone: ??[phone] Neena Flores MD LAB - CHEMISTRY ORDERABLES Performing Organization Address [facility] de Phone Number [facility] * SMOOTH MUSCLE ANTIBODY (06/10/2017 7:27 AM CDT) Pathologist [facility] Actin (Smooth Muscle) Antibody 8 0 - 19 Units [facility] ([facility]) Comment: ? Negative ? 0 - 19 ? Weak positive ? 20 - 30 ? Moderate to strong positive ? >30 Actin Antibodies are found in 52-85% of patients with autoimmune hepatitis or chronic active hepatitis and in 22% of patients with primary biliary cirrhosis. 06/10/2017 7:27 AM CDT 06/10/2017 Narrative [facility] ([facility]) - 06/11/2017 5:11 PM CDT Performed at: ??01 - [address] ??[id number] Slip Caster: Gilberto Malhotra PhD, Phone: ??[phone] Neena Flores MD LAB - SEROLOGY ORDERABLES [facility] ([facility]) * CBC W AUTO DIFFERENTIAL (06/10/2017 7:27 AM CDT) Only the most recent of13 resultswithin the time period is included. WBC 5.8 3.4 - 10.8 x10E3/uL [facility] ([facility]) RBC 5.07 3.77 - 5.28 x10E6/uL [facility] ([facility]) Hemoglobin 14.8 11.1 - 15.9 g/dL [facility] ([facility]) Hematocrit 43.4 34.0 - 46.6 % [facility] ([facility]) MCV 86 79 - 97 fL [facility] ([facility]) MCH 29.2 26.6 - 33.0 pg [facility] ([facility]) MCHC 34.1 31.5 - 35.7 g/dL [facility] ([facility]) RDW-CV 15.3 12.3 - 15.4 % [facility] ([facility]) Platelet 234 150 - 379 x10E3/uL [facility] ([facility]) Neutrophils % 49 Not Estab. % [facility] ([facility]) Lymphocytes % 38 Not Estab. % [facility] ([facility]) Monocytes % 10 Not Estab. % [facility] ([facility]) Eosinophils % 2 Not Estab. % [facility] ([facility]) Basophil % 1 Not Estab. % [facility] ([facility]) Neutrophils Absolute 2.9 1.4 - 7.0 x10E3/uL [facility] ([facility]) Lymphocyte Absolute Manual 2.2 0.7 - 3.1 x10E3/uL [facility] ([facility]) Monocytes Absolute 0.6 0.1 - 0.9 x10E3/uL [facility] ([facility]) Eosinophils Absolute Manual 0.1 0.0 - 0.4 x10E3/uL [facility] ([facility]) Basophil Absolute Manual 0.1 0.0 - 0.2 x10E3/uL [facility] ([facility]) Immature Granulocytes % 0 Not Estab. % [facility] ([facility]) Immature Granulocytes absolute 0.0 0.0 - 0.1 x10E3/uL [facility] ([facility]) Blood specimen (specimen) BLOOD SPECIMEN / Unknown 06/10/2017 7:27 AM CDT 06/10/2017 Narrative [facility] ([facility]) - 06/11/2017 7:13 AM CDT Performed at: ?? - [facility] ??[id number] Slip Caster: Gilberto Malhotra PhD, Phone: ??[phone] Neena Flores MD LAB - HEMATOLOGY ORDERABLES Performing Organization Address [facility] Co de Phone Number [facility] ([facility]) * IRON + TIBC PANEL (06/10/2017 7:27 AM CDT) TIBC 445 250 - 450 ug/dL [facility] ([facility]) UIBC 351 131 - 425 ug/dL [facility] ([facility]) Iron 94 27 - 159 ug/dL [facility] ([facility]) Iron Saturation 21 15 - 55 % [facility] ([facility]) Serum 06/10/2017 7:27 AM CDT 06/10/2017 Narrative [facility] ([facility]) - 06/11/2017 7:13 AM CDT Performed at: ?? - [facility] [address] ??[id number] Slip Caster: Gilberto Malhotra PhD, Phone: ??[phone] Neena Flores MD LAB - CHEMISTRY ORDERABLES Performing Organization Address [facility] Co de Phone Number [facility] ([facility]) * HEPATITIS B SURFACE ANTIBODY (06/10/2017 7:27 AM CDT) Hepatitis B Virus Surface Antibody Non Reactive [facility] ([facility]) Comment: ?Non Reactive: Inconsistent with immunity, ?less than 10 mIU/mL ?Reactive: ? Consistent with immunity, ?greater than 9.9 mIU/mL Blood specimen (specimen) BLOOD SPECIMEN / Unknown 06/10/2017 7:27 AM CDT 06/10/2017 Narrative [facility] D[facility]) - 06/11/2017 7:13 AM CDT Performed at: ??01 - [address] ??[id number] Slip Caster: Gilberto Malhotra PhD, Phone: ??[phone] Neena Flores MD LAB - CHEMISTRY ORDERABLES Performing Organization Address [facility] Co de Phone Number [facility]) * HEPATITIS B CORE ANTIBODY (06/10/2017 7:27 AM CDT) Hepatitis B Core Virus Antibody Total Negative Negative [facility] JERRY) Blood specimen (specimen) BLOOD SPECIMEN / Unknown 06/10/2017 7:27 AM CDT 06/10/2017 Narrative [facility]) - 06/11/2017 7:13 AM CDT Performed at: ??01 - [address] ??[id number] Slip Caster: Gilberto Malhotra PhD, Phone: ??[phone] Neena Flores MD LAB - CHEMISTRY ORDERABLES Performing Organization Address [facility] Co de Phone Number [facility]) * HEPATITIS B SURFACE ANTIGEN W RFLX CONFIRMATION (06/10/2017 7:27 AM CDT) Hepatitis B Virus Surface Antigen Screen Negative Negative [facility] Blood specimen (specimen) BLOOD SPECIMEN / Unknown 06/10/2017 7:27 AM CDT 06/10/2017 Narrative [facility] ([facility]) - 06/11/2017 7:13 AM CDT Performed at: ??01 - [address] ??[id number] Slip Caster: Gilberto Malhotra PhD, Phone: ??[phone] Neena Flores MD LAB - CHEMISTRY ORDERABLES Performing Organization Address [facility] Co de Phone Number [facility] ([facility]) * IGG BLOOD (06/10/2017 7:27 AM CDT) Pathologist [facility] IgG Quantitative 846 700 - 1600 mg/dL [facility] ([facility]) Blood specimen (specimen) BLOOD SPECIMEN / Unknown 06/10/2017 7:27 AM CDT 06/10/2017 Narrative [facility] ([facility]) - 06/11/2017 7:13 AM CDT Performed at: ??[address] ??[id number] Slip Caster: Gilberto Malhotra PhD, Phone: ??[phone] Neena Flores MD LAB - CHEMISTRY ORDERABLES Performing Organization Address City/[facility] Co de Phone Number [facility] ([facility]) * HEPATITIS A ANTIBODY (06/10/2017 7:27 AM CDT) Pathologist [facility] Hepatitis A Virus Antibody Total Negative Negative [facility] ([facility]) Blood specimen (specimen) 06/10/2017 7:27 AM CDT 06/10/2017 Narrative [facility] ([facility]) - 06/11/2017 7:13 AM CDT Performed at: ??01 - [facility] [address] ??[id number] Slip Caster: Gilberto Malhotra PhD, Phone: ??[phone] Neena Flores MD LAB - CHEMISTRY ORDERABLES Performing Organization Address [facility]/ZIP Co de Phone Number [facility] ([facility]) * FERRITIN (06/10/2017 7:27 AM CDT) Ferritin 95 15 - 150 ng/mL [facility] ([facility]) Blood specimen (specimen) BLOOD SPECIMEN / Unknown 06/10/2017 7:27 AM CDT 06/10/2017 Narrative [facility] - 06/11/2017 7:13 AM CDT Performed at: ??01 - [facility] ??[id number] Slip Caster: Gilberto Malhotra PhD, Phone: ??[phone] Neena Flores MD LAB - CHEMISTRY ORDERABLES Performing Organization Address City/[facility]/ZIP Co de Phone Number [facility] ([facility]) * LAB RESULTS ORDER (04/07/2017) Only the most recent of5 resultswithin the time period is included. Mark Rose MD LAB - THERAPEUTIC D RUG MONITORING ORDERABLES * DIABETES EYE EXAM (10/18/2016) Sveta Gross MD HEALTH MAINTENANCE * VAS RIGHT VENOUS DUPLEX LE (10/08/2016 3:21 PM FIRE TECHNOLOGY INSTRUCTOR) Anatomical Region Laterality Modality Ultrasound 10/08/2016 3:01 PM FIRE TECHNOLOGY INSTRUCTOR Narrative Procedure Note Dennis Mijares MD - 10/08/2016 [facility] [place] [address], [address] [place] [address] Lower Extremity Venous Ultrasound Report Pat.Name: LUCRETIA RODRIGUEZ Pat.ID: [id number] St.Date: 10/08/2016 Exam Time: 3:01:00 PM Study Type:LE Venous Age: 1 1965,51Y Sex: FEMALE Sonogrphr: Yousif Guerrero RVT Pat. Stat.:Outpatient ICD - 9: I82.491 Acute embolism and thrombosis of other specified deep vein of right lower extremity CPT - 4: 58256 Procedures:Lower Extremity Venous - Right Race: 1 Visit ID: [id number] SUMMARY: There is no evidence of an acute deep or superficial venous thrombosis in the right lower extremity. FINDINGS: Procedure: Venous duplex imaging of the right lower extremity was performed using color flow and spectral Doppler analysis. The contralateral common femoral vein was also examined. Study Quality: This study is of adequate technical quality. Rt Leg: All vessels seen appear patent and compressible. There was spontaneous and phasic flow seen in all the major veins of the right lower extremity. Appropriate augmentation with distal compression. No evidence of reflux with proximal compression. Signed 10/08/2016 04:10 PM Dennis Mijares MD Chitra Carranza VICE PRESIDENT [employer] VASCULAR LAB OR DERABLES * D-DIMER (10/05/2016 9:07 PM FIRE TECHNOLOGY INSTRUCTOR) D-Dimer 0.43 0.17 - 0.5 mg/L FEU 10/05/2016 9:40 PM FIRE TECHNOLOGY INSTRUCTOR [facility] Blood BLOOD SPECIMEN / Unknown 10/05/2016 9:07 PM FIRE TECHNOLOGY INSTRUCTOR 10/05/2016 9:16 PM FIRE TECHNOLOGY INSTRUCTOR Narrative [facility] - 10/05/2016 9:40 PM FIRE TECHNOLOGY INSTRUCTOR The [employer] D-Dimer assay is intended for use as an aid in diagnosis of venous thromboembolism [(VTE): deep vein thrombosis (DVT), pulmonary embolism (PE), and disseminated intravascular coagulation (DIC)], and has received U.S. Food and Drug Administration (FDA) approval to exclude VTE in patients with low or moderate pretest probability of PE or DVT (per Wells' rules). At a clinical cut-off value 0.50 mg/L FEU, the Negative Predictive Value of this assay is 99.8% for excluding PE and 100% for excluding DVT. A very low percentage of patients with VTE may yield D-Dimer results below the cut-off value. An elevated D-Dimer result has low specificity (40.4% for PE, 35.5% for DVT) and is a poor predictor of VTE. An elevated D-Dimer result may indicate DIC in the appropriate clinical setting. Results of this test should always be interpreted in conjunction with the patient's medical history, clinical presentation, and other findings. Shine Hampton MD LAB - COAGULATION OR DERABLES Performing Organization Address City/State/[facility] Co de Phone Number [facility] [address] [place] [address] * MRI ABDOMEN NON CONTRAST (06/19/2016 11:43 AM CDT) Anatomical Region Laterality Modality Abdomen Magnetic Resonan ce 06/19/2016 2:46 PM CDT Narrative 06/19/2016 2:49 PM CDT Examination: MRI abdomen with magnetic resonance cholangiography. Indication for examination: Epigastric and right upper quadrant abdominal pain. Choledocholithiasis. Noncontrast T1 and T2-weighted images of the upper abdomen were obtained. Magnetic resonance cholangiography is performed with 2 dimensional and 3 dimensional technique. ?? Comparison is made with prior imaging studies. Liver and spleen are normal in size and appearance as is the pancreas. No focal parenchymal abnormality identified. No peripancreatic fluid or inflammatory change. There is no urinary obstruction or perinephric fluid. There is no bowel obstruction. No free fluid. Magnetic resonance cholangiography reveals that the intrahepatic and extrahepatic bile ducts are normal in caliber. No filling defect is identified to suggest choledocholithiasis. Pancreatic duct is normal in caliber. Gallbladder is surgically absent. CONCLUSION: Surgically absent gallbladder. No evidence of choledocholithiasis or abnormal bile duct dilatation. Normal caliber pancreatic duct. No other focal findings. Procedure Note Stevenson Medrano MD - 06/19/2016 Examination: MRI abdomen with magnetic resonance cholangiography. Indication for examination: Epigastric and right upper quadrant abdominal pain. Choledocholithiasis. Noncontrast T1 and T2-weighted images of the upper abdomen were obtained. Magnetic resonance cholangiography is performed with 2 dimensional and 3 dimensional technique. Comparison is made with prior imaging studies. Liver and spleen are normal in size and appearance as is the pancreas. No focal parenchymal abnormality identified. No peripancreatic fluid or inflammatory change. There is no urinary obstruction or perinephric fluid. There is no bowel obstruction. No free fluid. Magnetic resonance cholangiography reveals that the intrahepatic and extrahepatic bile ducts are normal in caliber. No filling defect is identified to suggest choledocholithiasis. Pancreatic duct is normal in caliber. Gallbladder is surgically absent. CONCLUSION: Surgically absent gallbladder. No evidence of choledocholithiasis or abnormal bile duct dilatation. Normal caliber pancreatic duct. No other focal findings. Mark Rose MD MR ORDERABLES * US ABD LIMITED W/ DOPPLER (06/10/2016 9:05 AM CDT) Anatomical Region Laterality Modality Ultrasound 06/10/2016 10:5 9 AM CDT Impressions 06/10/2016 11:02 AM CDT Diffuse increased echogenicity of liver, most commonly seen in the setting of diffuse fatty infiltration Normal hepatic Doppler [id number]-hspfchfl hepatic fibrosis, F 2-3 Liver Fibrosis Staging ? Metavir Score Velocity(m/s) * ??Normal ?F0 ?0.81 - 1.22 * ??Normal to Mild ?F0 - F1 ? 1.22 - 1.37 * ??Mild to Moderate ?F2 - F3 ?1.37 - 2.00 * ??Moderate to Severe ?F3 - F4 ?2.00 - 2.64+ Narrative 06/10/2016 11:02 AM CDT Ultrasound Abdomen Limited Indication: Abdominal pain, hepatomegaly Technique: Lugo scale and color images of the abdomen Findings: There is diffuse increased echogenicity of the liver without focal mass. Hepatic veins are patent. Portal venous flow is hepatopedal with a peak systolic velocity of 36 cm/s. There is no blunting of the upstroke of the hepatic artery. The liver is enlarged measuring 24 cm. Elastography measurements measure between 1.29 and 1.59 m/s with an average of 1.44. The gallbladder is surgically absent. ??The visualized pancreas and common bile duct are normal. ??The right kidney is normal. Procedure Note Chitra Celeste MD - 06/10/2016 Ultrasound Abdomen Limited Indication: Abdominal pain, hepatomegaly Technique: Lugo scale and color images of the abdomen Findings: There is diffuse increased echogenicity of the liver without focal mass. Hepatic veins are patent. Portal venous flow is hepatopedal with a peak systolic velocity of 36 cm/s. There is no blunting of the upstroke of the hepatic artery. The liver is enlarged measuring 24 cm. Elastography measurements measure between 1.29 and 1.59 m/s with an average of 1.44. The gallbladder is surgically absent. The visualized pancreas and common bile duct are normal. The right kidney is normal. IMPRESSION Diffuse increased echogenicity of liver, most commonly seen in the setting of diffuse fatty infiltration Normal hepatic Doppler Byav-eh-eqkbcpor hepatic fibrosis, F 2-3 Liver Fibrosis Staging Metavir Score Velocity(m/s) * Normal F0 0.81 - 1.22 * Normal to Mild F0 - F1 1.22 - 1.37 * Mild to Moderate F2 - F3 1.37 - 2.00 * Moderate to Severe F3 - F4 2.00 - 2.64+ Mark Rose MD US ORDERABLES * (ABNORMAL) HEMOGLOBIN A1C (05/27/2016 2:17 PM CDT) Only the most recent of10 resultswithin the time period is included. Hemoglobin A1c 6.7(H) 4.2 - 6.3 % [facility] ACCOUNT BILL Comment:AVERAGE GLUCOSE MG/D L BLOOD 146 mg/dL Whole blood specimen (specimen) BLOOD SPECIMEN WITH EDTA / Unknown 05/27/2016 2:17 PM CDT 05/27/2016 7:05 PM CDT Narrative Resulting Agency Comment [facility] [address] ??Alejandra LINARES [phone] Sveta Gross MD LAB - CHEMISTRY ORD ERABLES Performing Organization Address City/[facility] Co de Phone Number [facility] ACCOUNT BILL [address] [place] [address] * TSH (05/27/2016 2:17 PM CDT) Only the most recent of4 resultswithin the time period is included. Pathologist [facility] TSH 1.37 0.358 - 3.740 uIU/mL [facility] ACCOUNT BILL Blood specimen (specimen) BLOOD SPECIMEN / Unknown 05/27/2016 2:17 PM CDT 05/27/2016 7:05 PM CDT Narrative Resulting Agency Comment [facility] [address] [address] ??Alejandra LINARES [phone] Sveta Gross MD LAB - CHEMISTRY ORD ERABLES Performing Organization Address City/[facility]/ZIP Co de Phone Number [facility] ACCOUNT BILL [address] [place] [address] * (ABNORMAL) LIPID PROFILE (05/27/2016 2:17 PM CDT) Only the most recent of9 resultswithin the time period is included. Cholesterol 183 <200 mg/dL [facility] ACCOUNT BILL Triglycerides 314(H) <150 mg/dL [facility] ACCOUNT BILL HDL Cholesterol 43 >40 mg/dL [facility] ACCOUNT BILL VLDL Calculated 63(H) <=30 mg/dL [facility] ACCOUNT BILL LDL Calculated 77 <130 mg/dL [facility] ACCOUNT BILL Blood specimen (specimen) BLOOD SPECIMEN / Unknown 05/27/2016 2:17 PM CDT 05/27/2016 7:05 PM CDT Narrative Resulting Agency Comment [facility] [address] [address] ??Alejandra VIJAY [phone] Sveta Gross MD LAB - CHEMISTRY ORD ERABLES [facility] ACCOUNT BILL [address] [place] [address] * HEMOGLOBIN A1C - POINT OF CARE (HgbA1C) (02/26/2016) Hemoglobin A1c POCT 6.6 % QC Verified Yes Blood specimen (specimen) BLOOD SPECIMEN / Unknown 02/26/2016 Sveta Gross MD LAB - POINT OF CARE ORDERABLES * URINALYSIS - POINT OF CARE (02/26/2016) Clarity UA POCT clear Color UA POCT yellow Leukocyte UA negative Negative Nitrite UA POCT negative Negative Urobilinogen UA 0.2 0.1 - 1.0 Protein UA POCT negative Negative pH UA 5.5 5.0 - 8.0 pH units Blood UA negative Negative Specific [place] UA POCT 1.005 1.002 - 1.030 Ketone UA negative Negative Bilirubin UA POCT negative Negative Glucose UA negative Negative Urine specimen (specimen) URINE / Unknown 02/26/2016 Sveta Gross MD LAB - POINT OF CARE ORDERABLES * HOME SLEEP STUDY (02/07/2016 6:50 AM CDT) Narrative Dequan Baxter MD - 02/07/2016 6:50 AM CDT Dequan Baxter MD ? 02/07/2016 ??6:50 AM [facility] ? Home Sleep Study Name: ??Lucretia Rodriguez Date of : ??1965 Date of Test: ??01/31/2016 Date of interpretation: 02/07/2016 Requesting Physician:Sveta Terry MD Indication for the study: ?? Symptoms suggestive of obstructive sleep apnea. ESS 13 Method: This is an unattended study ??performed with an AccuSom type 3 device that records oral/nasal airflow, respiratory effort , oxygen saturation , heart rate and snoring. No data is collected on sleep stages and all events are scored according to the current AASM criteria. I personally reviewed the raw data, tabulated data and Intraprocedure documentation. Interpretation: ?? Total No of Nights study was done :1 Total recorded time : 7 hours and 59 minutes Average apnea hypopnea index : 11.4 to 14.5 ??per hour with Oxygen saturation less than 90% for approximately : 9 minutes (2 % of recorded time) Lowest oxygen saturation : ??78 % Snoring : 98 % of the recorded time Average Heart Rate:64 Impression : Obstructive sleep apnea , mild. Apnea hypopnea index ??11.4 to 14.5 per hour. Recommendation : Positive airway pressure therapy is the treatment of choice for sleep disordered breathing. Given the daytime sleepiness, the patient will benefit from CPAP therapy which can be arranged through an in lab CPAP titration OR an auto titrating CPAP trial at home ??depending upon patient's co morbidities and insurance coverage. Other treatment options for patient's with sleep apnea include weight loss,dental appliance, positional therapy and upper airway surgery. Caution is advised in driving, operating heavy equipment and with use of alchol and sedative if there are symptom of excessive daytime sleepiness.. ?? I will arrange for follow up. Dequan Baxter M.D. Diplomat [place] [employer] (ABSM) Diplomat Pulmonary , Critical Care and Sleep Medicine (ABIM) Sveta Gross MD SLEEP CENTER ORDERA BLES * XR CHEST PA AND LATERAL (01/15/2016 12:31 PM CDT) Anatomical Region Laterality Modality Chest Radiographic Louann ging 01/15/2016 12:3 7 PM CDT Impressions 01/15/2016 12:37 PM CDT No acute disease. Narrative 01/15/2016 12:37 PM CDT Chest Two Views History: Cough. Comparison: None. Findings: The lungs are clear without airspace consolidation or pulmonary edema. No pneumothorax or pleural effusion is seen. The cardiomediastinal contour is unremarkable. Procedure Note Stevenson Lopez MD - 01/15/2016 Chest Two Views History: Cough. Comparison: None. Findings: The lungs are clear without airspace consolidation or pulmonary edema. No pneumothorax or pleural effusion is seen. The cardiomediastinal contour is unremarkable. IMPRESSION No acute disease. Sveta Gross MD DIAGNOSTIC IMAGING ORDERABLES * MRI SPINE CERVICAL WITH AND WITHOUT CONTRAST (11/13/2015 6:24 PM FIRE TECHNOLOGY INSTRUCTOR) Anatomical Region Laterality Modality Spine Magnetic Resonan ce 11/14/2015 8:04 AM FIRE TECHNOLOGY INSTRUCTOR Impressions 11/14/2015 8:40 AM FIRE TECHNOLOGY INSTRUCTOR No abnormal signal intensity is seen in the cervical spinal cord to suggest the presence of demyelination. Disc herniations are present from C3-4 through C6-7 but do not result in significant central canal stenosis. Edited by Teresita Shea on 11/14/2015 8:22 AM Narrative 11/14/2015 8:40 AM FIRE TECHNOLOGY INSTRUCTOR MRI CERVICAL SPINE Indication: Multiple sclerosis. Bilateral leg heaviness and weakness. Technique: The following sequences were obtained: Sagittal T1 and T2, axial T2 volume, sagittal and axial T1 following intravenous administration of 20 cc Dotarem, sagittal STIR, 3-D cervical myelogram, axial gradient-echo. Comparison: None. Alignment: Within normal limits. Spinal cord: Normal in morphology and in signal intensity. There are no foci of abnormal signal intensity within the cervical spinal cord. No abnormal enhancement is seen following administration of gadolinium. Marrow: Normal. Intervertebral discs: Small disc bulges are present from C3-4 through C7-T1 with mild loss of disc height at C4-5, C5-6, and C6-7. The following levels were directly imaged in the axial plane: C2-C3: Normal. C3-C4: A small central disc herniation is present without significant stenosis. Neural foramina are patent. C4-C5: A small central disc herniation is present without significant stenosis. Neural foramina are patent. C5-C6: Diffuse disc bulge does not result in significant central canal stenosis. Neural foramina are mildly narrowed bilaterally. C6-C7: A disc herniation eccentric to the left does not result in significant central canal stenosis. The left neural foramen is mildly narrowed. C7-T1: Normal. Procedure Note Sasha Taylor MD - 11/14/2015 MRI CERVICAL SPINE Indication: Multiple sclerosis. Bilateral leg heaviness and weakness. Technique: The following sequences were obtained: Sagittal T1 and T2, axial T2 volume, sagittal and axial T1 following intravenous administration of 20 cc Dotarem, sagittal STIR, 3-D cervical myelogram, axial gradient-echo. Comparison: None. Alignment: Within normal limits. Spinal cord: Normal in morphology and in signal intensity. There are no foci of abnormal signal intensity within the cervical spinal cord. No abnormal enhancement is seen following administration of gadolinium. Marrow: Normal. Intervertebral discs: Small disc bulges are present from C3-4 through C7-T1 with mild loss of disc height at C4-5, C5-6, and C6-7. The following levels were directly imaged in the axial plane: C2-C3: Normal. C3-C4: A small central disc herniation is present without significant stenosis. Neural foramina are patent. C4-C5: A small central disc herniation is present without significant stenosis. Neural foramina are patent. C5-C6: Diffuse disc bulge does not result in significant central canal stenosis. Neural foramina are mildly narrowed bilaterally. C6-C7: A disc herniation eccentric to the left does not result in significant central canal stenosis. The left neural foramen is mildly narrowed. C7-T1: Normal. IMPRESSION No abnormal signal intensity is seen in the cervical spinal cord to suggest the presence of demyelination. Disc herniations are present from C3-4 through C6-7 but do not result in significant central canal stenosis. Edited by Teresita Shea on 11/14/2015 8:22 AM Stevenson Almanza MD MR ORDERABLES * (ABNORMAL) URINALYSIS MICROSCOPIC ONLY REFLEXED (PO REF LAB) (11/12/2015 10:47 AM FIRE TECHNOLOGY INSTRUCTOR) WBC UA 0-5 0 - 5 /hpf [facility] ACCOUNT BILL RBC UA 0-2 0 - 2 /hpf [facility] ACCOUNT BILL Epithelial Cells (non renal) >10(A) 0 - 10 /hpf [facility] ACCOUNT BILL Epithelial Cells (renal) NOT NEEDED [facility] ACCOUNT BILL Comment:Ancillary determined the test is not needed Casts ua NOT NEEDED [facility] ACCOUNT BILL Comment:Ancillary determined the test is not needed Casts UA NOT NEEDED [facility] ACCOUNT BILL Comment:Ancillary determined the test is not needed Crystals UA NOT NEEDED [facility] ACCOUNT BILL Comment:Ancillary determined the test is not needed Crystals UA NOT NEEDED [facility] ACCOUNT BILL Comment:Ancillary determined the test is not needed Mucus UA Present Not Estab. [facility] ACCOUNT BILL Bacteria UA Few None seen/Few [facility] ACCOUNT BILL Yeast UA NOT NEEDED [facility] ACCOUNT BILL Comment:Ancillary determined the test is not needed Trichomonas UA NOT NEEDED [facility] ACCOUNT BILL Comment:Ancillary determined the test is not needed Comment Urine NOT NEEDED [facility] ACCOUNT BILL Comment:Ancillary determined the test is not needed 11/12/2015 10:4 7 AM FIRE TECHNOLOGY INSTRUCTOR 11/12/2015 1:00 PM FIRE TECHNOLOGY INSTRUCTOR Narrative Resulting Agency Comment [facility] [address] ??[facility] [phone] Stevenson Almanza MD LAB - URINALYSIS OR DERABLES [facility] ACCOUNT BILL * (ABNORMAL) URINALYSIS ROUTINE AUTO (11/12/2015 10:47 AM FIRE TECHNOLOGY INSTRUCTOR) Only the most recent of2 resultswithin the time period is included. Specific Greenwood UA 1.026 1.005 - 1.030 [facility] ACCOUNT BILL pH UA 6.0 5.0 - 7.5 [facility] ACCOUNT BILL Color UA Red(A) Yellow [facility] ACCOUNT BILL Appearance Clear Clear [facility] ACCOUNT BILL Leukocyte UA Negative Negative [facility] ACCOUNT BILL Protein UA 1+(A) Negative/Tr beatrice [facility] ACCOUNT BILL Glucose UA Negative Negative [facility] ACCOUNT BILL Glucose Reflex NOT NEEDED [facility] ACCOUNT BILL Comment:Ancillary determined the test is not needed Ketone UA Negative Negative [facility] ACCOUNT BILL Occult Blood Urine Negative Negative [facility] ACCOUNT BILL Bilirubin UA Negative Negative [facility] ACCOUNT BILL Urobilinogen 1.0 0.2 - 1.0 mg/dL [facility] ACCOUNT BILL Nitrite UA Positive(A) Negative [facility] ACCOUNT BILL Microscopic Examination Urine See below: [facility] ACCOUNT BILL Comment:Microscopic was shahab cated and was performed. Urine specimen (specimen) URINE SPECIMEN FROM URINARY BLADDER / Unknown 11/12/2015 10:47 AM FIRE TECHNOLOGY INSTRUCTOR 11/12/2015 1:00 PM FIRE TECHNOLOGY INSTRUCTOR Narrative Resulting Agency Comment [facility] [address] [facility] ??[facility] [phone] Stevenson Almanza MD LAB - URINALYSIS OR DERABLES [facility] ACCOUNT BILL * PAP SMEAR IG CT+GC HPV HR (PO REF LAB) (09/18/2015 3:09 PM FIRE TECHNOLOGY INSTRUCTOR) Diagnosis [facility] INSURANCE BILL Comment:NEGATIVE FOR INTRAEP [...] PAPANICOLAOU TECHNIQUE / Unknown 09/18/2015 3:09 PM FIRE TECHNOLOGY INSTRUCTOR 09/19/2015 2:26 AM FIRE TECHNOLOGY INSTRUCTOR Narrative [facility] INSURANCE BILL - 09/21/2015 4:10 PM FIRE TECHNOLOGY INSTRUCTOR Source.............Cervical No. of containers..01 CYTYC Thin Prep Vial Resulting Agency Comment [facility] [place] [address] ??[place] [phone] Sveta Gross MD LAB - PATHOLOGY/CYT OLOGY ORDERABLES [facility] INSURANCE BILL * (ABNORMAL) VITAMIN D 25-HYDROXY (07/31/2015 9:36 AM FIRE TECHNOLOGY INSTRUCTOR) Only the most recent of4 resultswithin the time period is included. Vitamin D, 25 Hydroxy 29.34(L) 30 - 100 ng/mL [facility] INSURANCE BILL Comment: Vitamin D Status: ?Deficiency ? <20 ? ng/mL ?Insufficiency ?? 20-30 ??ng/mL ?Sufficiency ? 30-100 ng/mL ?Toxicity ? >100 ?ng/mL Blood specimen (specimen) BLOOD SPECIMEN / Unknown 07/31/2015 9:36 AM FIRE TECHNOLOGY INSTRUCTOR 07/31/2015 12:55 PM FIRE TECHNOLOGY INSTRUCTOR Narrative Resulting Agency Comment [facility] [address] [facility] ??[facility] [phone] Sveta Gross MD LAB - CHEMISTRY ORD ERABLES [facility] INSURANCE BILL * EKG 12-LEAD (07/31/2015) Only the most recent of3 resultswithin the time period is included. Sveta Gross MD ECG ORDERABLES [facility] RESULT SCAN * XR KNEE 4+ VW RIGHT (06/26/2015 12:02 PM CDT) Anatomical Region Laterality Modality Lower Extremity Radiographic Louann ging 06/26/2015 12:0 4 PM CDT Narrative 06/26/2015 12:05 PM CDT Right Knee 4 Views INDICATION: Fall 4 days previous, right knee pain, initial encounter FINDINGS: ??No fracture or dislocation is identified. There is a small right knee effusion. Small osteophytes are present consistent with mild osteoarthritis. Procedure Note Chitra Celeste MD - 06/26/2015 Right Knee 4 Views INDICATION: Fall 4 days previous, right knee pain, initial encounter FINDINGS: No fracture or dislocation is identified. There is a small right knee effusion. Small osteophytes are present consistent with mild osteoarthritis. Robyn Badillo VICE PRESIDENT [employer] LABORER DIAGNOSTIC IMAGI NG ORDERABLES * NERVE CONDUCTION TEST (06/20/2015) Patricia Jarvis MD NEUROLOGY ORDERABLES * CT ABDOMEN AND PELVIS WITH IV CONTRAST (03/29/2015 12:07 AM CDT) Only the most recent of3 resultswithin the time period is included. Anatomical Region Laterality Modality Abdomen, Pelvis Computed Tomogra phy 03/29/2015 12:1 3 AM CDT Impressions 03/29/2015 12:17 AM CDT No acute findings in the abdomen. ??Please see above. Narrative 03/29/2015 12:[address] ABDOMEN WITH CONTRAST CT PELVIS WITH CONTRAST INDICATION: Abdominal pain, left lower quadrant Pt sent in from [facility] for evaluation of possible diverticulitis. Pt states [place], back ache, nausea, and achey x Thursday. Pt states last BM today. GB:removed APPENDIX:present UTERUS/OVARIES:present hcg neg, tubal ligation, ENDOMETRIAL ABLATION lap band TECHNIQUE: The CT scan of the abdomen is carried out during and following administration of ??Omnipaque 350 contrast IV. ??The images of the pelvis were performed with contrast. ??Sagittal and coronal reformatted images were performed with the CT scanner. FINDINGS: CT Abdomen: No free fluid can be seen in the upper abdomen. ??The liver, spleen, pancreas and kidneys appear normal in size. ??There are no dilated bowel loops in the upper abdomen. ??The LAP-BAND is visible similar to the previous examination of September 02, 2013. ??No confluent infiltrates can be seen in the lung bases. CT Pelvis: No free fluid can be seen in the pelvis. ??The bladder is smooth in outline but is not filled with the IV contrast material on this limited single phase examination. ??There are no dilated bowel loops in the pelvis. ??The pelvic veins are more prominent on the left and appear to connect with the left renal vein. ??This report was transcribed with a computerized speech recognition system. ??In an effort to expedite patient care, it has not been adjusted for typographical, grammatical or syntax problems by a trained senior medical transcriptionist. For questions about the report, please contact the Radiology Department. Procedure Note David Styles MD - 03/29/[address] CT PELVIS WITH CONTRAST INDICATION: Abdominal pain, left lower quadrant Pt sent in from [facility] for evaluation of possible diverticulitis. Pt states [place], back ache, nausea, and achey x Thursday. Pt states last BM today. GB:removed APPENDIX:present UTERUS/OVARIES:present hcg neg, tubal ligation, ENDOMETRIAL ABLATION lap band TECHNIQUE: The CT scan of the abdomen is carried out during and following administration of Omnipaque 350 contrast IV. The images of the pelvis were performed with contrast. Sagittal and coronal reformatted images were performed with the CT scanner. FINDINGS: CT Abdomen: No free fluid can be seen in the upper abdomen. The liver, spleen, pancreas and kidneys appear normal in size. There are no dilated bowel loops in the upper abdomen. The LAP-BAND is visible similar to the previous examination of September 02, 2013. No confluent infiltrates can be seen in the lung bases. CT Pelvis: No free fluid can be seen in the pelvis. The bladder is smooth in outline but is not filled with the IV contrast material on this limited single phase examination. There are no dilated bowel loops in the pelvis. The pelvic veins are more prominent on the left and appear to connect with the left renal vein. This report was transcribed with a computerized speech recognition system. In an effort to expedite patient care, it has not been adjusted for typographical, grammatical or syntax problems by a trained senior medical transcriptionist. For questions about the report, please contact the Radiology Department. IMPRESSION No acute findings in the abdomen. Please see above. Lindsay Jacobson MD CT ORDERABLES * HCG URINE QUALITATIVE (03/28/2015 11:33 PM CDT) Only the most recent of3 resultswithin the time period is included. Pathologist [facility] hCG Qualitative Urine Negative Negative 03/28/2015 11:43 PM CDT [facility] Urine URINE / Unknown 03/28/2015 1 1:33 PM CDT 03/28/2015 11:33 PM CDT Lindsay Jacobson MD LAB - URINALYSIS ORD ERABLES [facility] [address] [place] [address] * TROPONIN I (03/28/2015 7:49 PM CDT) Only the most recent of6 resultswithin the time period is included. Troponin I <0.015 0.000 - 0.049 ng/mL 03/28/2015 9:02 PM CDT [facility] Blood BLOOD SPECIMEN / Unknown 03/28/2015 7:49 PM CDT 03/28/2015 8:46 PM CDT Narrative [facility] - 03/28/2015 9:02 PM CDT Note: Diagnosis of myocardial infarction requires symptoms of ischemia or EKG changes of ischemia and TNI >99th of normal (0.05 ng/mL). Troponin should be drawn on initial assessment and 3-6 hours later as clinically indicated. Any condition resulting in myocardial cell damage can increase cardiac troponin levels. In addition to myocardial infarction, these include but are not limited to CHF, arrhythmia, myocarditis, and non-cardiac related causes such as pulmonary embolism, renal failure and sepsis. Lindsay Jacobson MD LAB - CHEMISTRY ANUSHKA LOVE Performing Organization Address [facility] Co de Phone Number [facility] [address] [place] [address] * LIPASE BLOOD (03/28/2015 7:49 PM CDT) Only the most recent of3 resultswithin the time period is included. Lipase 138 73 - 393 U/L 03/28/2015 9:05 PM CDT [facility] Blood BLOOD SPECIMEN / Unknown 03/28/2015 7:49 PM CDT 03/28/2015 8:46 PM CDT Lindsay Jacobson MD LAB - CHEMISTRY ANUSHKA JENNAMELECIO Performing Organization Address [facility] de Phone Number [facility] [address] [place] [address] * XR HAND 3+ VW RIGHT (02/22/2015 3:07 PM CDT) Anatomical Region Laterality Modality Wrist / Hand Radiographic Louann ging 02/22/2015 3:31 PM CDT Impressions 02/22/2015 3:32 PM CDT Unremarkable radiographic examination of right hand This examination was transcribed using the Tamion voice recognition system without human staff cytotechnologist. ??In an effort to expedite patient care, this report has not been adjusted for typographical, grammatical, and syntax by a trained senior medical transcriptionist. Narrative 02/22/2015 3:32 PM CDT Right hand 3 views Indication: Right hand pain and stiffness Findings: 3 views of the right hand are submitted. No fracture or dislocation is seen. There is no radiopaque foreign body within the soft tissues. Procedure Note Sasha Taylor MD - 02/22/2015 Right hand 3 views Indication: Right hand pain and stiffness Findings: 3 views of the right hand are submitted. No fracture or dislocation is seen. There is no radiopaque foreign body within the soft tissues. IMPRESSION Unremarkable radiographic examination of right hand This examination was transcribed using the Tamion voice recognition system without human staff cytotechnologist. In an effort to expedite patient care, this report has not been adjusted for typographical, grammatical, and syntax by a trained senior medical transcriptionist. Chitra Craranza VICE PRESIDENT [employer] LABORER DIAGNOSTIC IMAG ING ORDERABLES * (ABNORMAL) GENERAL HEALTH PANEL (01/23/2015 1:20 PM CDT) Only the most recent of4 resultswithin the time period is included. Glucose 79 65 - 99 mg/dL [facility] ACCOUNT BILL BUN 17 6 - 24 mg/dL [facility] ACCOUNT BILL Creatinine 0.79 0.57 - 1.00 mg/dL [facility] ACCOUNT BILL eGFR by MDRD 88 >59 mL/min/1. 73 [facility] ACCOUNT BILL eGFR by MDRD 101 >59 mL/min/1. 73 [facility] ACCOUNT BILL BUN/Creatinine Ratio 22 9 - 23 [facility] ACCOUNT BILL Sodium 141 134 - 144 mmol/L [facility] ACCOUNT BILL Potassium 4.2 3.5 - 5.2 mmol/L [facility] ACCOUNT BILL Chloride 101 97 - 108 mmol/L [facility] ACCOUNT BILL CO2 22 18 - 29 mmol/L [facility] ACCOUNT BILL Calcium 9.6 8.7 - 10.2 mg/dL [facility] ACCOUNT BILL Protein Total 7.2 6.0 - 8.5 g/dL [facility] ACCOUNT BILL Albumin 4.8 3.5 - 5.5 g/dL [facility] ACCOUNT BILL Globulin Total 2.4 1.5 - 4.5 g/dL [facility] ACCOUNT BILL Albumin/Globulin Ratio 2.0 1.1 - 2.5 [facility] ACCOUNT BILL Bilirubin Total 0.3 0.0 - 1.2 mg/dL [facility] ACCOUNT BILL Alkaline Phosphatase 60 39 - 117 IU/L [facility] ACCOUNT BILL AST 19 0 - 40 IU/L [facility] ACCOUNT BILL ALT 16 0 - 32 IU/L [facility] ACCOUNT BILL TSH 1.510 0.450 - 4.500 uIU/mL [facility] ACCOUNT BILL WBC 7.7 3.4 - 10.8 x10E3/uL [facility] ACCOUNT BILL RBC 4.85 3.77 - 5.28 x10E6/uL [facility] ACCOUNT BILL Hemoglobin 14.0 11.1 - 15.9 g/dL [facility] ACCOUNT BILL Hematocrit 42.8 34.0 - 46.6 % [facility] ACCOUNT BILL MCV 88 79 - 97 fL [facility] ACCOUNT BILL MCH 28.9 26.6 - 33.0 pg [facility] ACCOUNT BILL MCHC 32.7 31.5 - 35.7 g/dL [facility] ACCOUNT BILL RDW 13.5 12.3 - 15.4 % [facility] ACCOUNT BILL Platelet Count 235 150 - 379 x10E3/uL [facility] ACCOUNT BILL Granulocytes % 45 % [facility] ACCOUNT BILL Lymphocytes % 42 % [facility] ACCOUNT BILL Monocytes % 7 % [facility] ACCOUNT BILL Eosinophils % 5 % [facility] ACCOUNT B[facility] Basophils % 1 % [facility] ACCOUNT BILL Immature Cells NOT NEEDED [facility] ACCOUNT BILL Comment:Ancillary determined the test is not needed Granulocytes Absolute 3.5 1.4 - 7.0 x10E3/uL [facility] ACCOUNT BILL Lymphocytes Absolute 3.2(H) 0.7 - 3.1 x10E3/uL [facility] ACCOUNT BILL Monocytes Absolute 0.5 0.1 - 0.9 x10E3/uL [facility] ACCOUNT BILL Eosinophils Absolute 0.4 0.0 - 0.4 x10E3/uL [facility] ACCOUNT BILL Basophils Absolute 0.1 0.0 - 0.2 x10E3/uL [facility] ACCOUNT BILL Immature Granulocytes 0 % [facility] ACCOUNT BILL Immature Granulocytes Absolute 0.0 0.0 - 0.1 x10E3/uL [facility] ACCOUNT BILL nRBC NOT NEEDED [facility] ACCOUNT BILL Comment:Ancillary determined the test is not needed Comment Hematology NOT NEEDED [facility] ACCOUNT BILL Comment:Ancillary determined the test is not needed BLOOD SPECIMEN / Unknown 01/23/2015 1:20 PM CDT 01/23/2015 5:10 PM CDT Narrative Resulting Agency Comment [facility] [address] ??[facility] [phone] Sveta Gross MD LAB - CHEMISTRY ORD ERABLES [facility] ACCOUNT BILL * ENDOSCOPY, COLON, SCREENING (10/23/2014 12:10 PM FIRE TECHNOLOGY INSTRUCTOR) Report Endoscopy POC _ Patient Name: Lucretia Rodriguez ? Procedure Date: 10/23/2014 12:10 PM ? Date of : 1965 ? Admit Type: Outpatient Age: 49 ? Gender: Female Attending MD: Mrak Rose MD _ Procedure: ? Colonoscopy Indications: ? Screening for colorectal malignant neoplasm, Maternal ? uncle with colon cancer Providers: ? Mark Rose MD (Doctor) Referring MD: ?Sveta Flores MD (Referring MD) Medicines: ? Monitored Anesthesia Care Complications: ? [...] the physician, the ? nurse and the waterway traffic checker in the procedure room. Mental ? Status [...] oxygen saturations ? were monitored continuously. The scope was introduced ? through the anus and advanced to the cecum, identified by ? appendiceal orifice and ileocecal valve. The colonoscopy ? was performed without difficulty. The patient tolerated ? the procedure well. The quality of the bowel preparation ? was excellent. ? Findings: ? The digital rectal exam was normal. Pertinent negatives include no ? palpable rectal lesions. ? A sessile polyp was found in the sigmoid colon. The polyp was 8 mm in ? size. The polyp was removed with a hot snare. Resection and retrieval ? were complete. ? A flat polyp was found in the distal ascending colon. The polyp was 7 mm ? in size. The polyp was removed with a hot snare. Resection and retrieval ? were complete. ? The rectum, descending colon, transverse colon, cecum, appendiceal ? orifice and ileocecal valve appeared normal. ? Internal hemmeroids noted in retroflexion. _ ? Impression: ?- One 8 mm polyp in the sigmoid colon. Resected and ? retrieved. ? - One 7 mm polyp in the distal ascending colon. Resected ? and retrieved. ? - The rectum, descending colon, transverse colon, cecum, ? appendiceal orifice and ileocecal valve are normal. Recommendation: ?- Await pathology results. ? - Repeat colonoscopy in 5 years for surveillance. ? - Return to primary care physician as previously scheduled. ? Procedure Code(s): ? --- Professional --- ? 39336, Colonoscopy, flexible, proximal to splenic flexure; with removal ? of tumor(s), polyp(s), or other lesion(s) by snare technique ? --- Technical --- ? 51835, Colonoscopy, flexible, proximal to splenic flexure; with removal ? of tumor(s), polyp(s), or other lesion(s) by snare technique Diagnosis Code(s): ? --- Professional --- ? V76.51, Special screening for malignant neoplasms of colon ? 211.3, Benign neoplasm of colon ? --- Technical --- ? V76.51, Special screening for malignant neoplasms of colon ? 211.3, Benign neoplasm of colon CPT copyright 2013 [employer]. All rights reserved. The codes documented in this report are preliminary and upon hims coder review may be revised to meet current compliance requirements. Dr. Mark Rose MD Mark Rose MD 10/23/2014 1:15 PM This report has been signed electronically. Number of Addenda: 0 Note Initiated On: 10/23/2014 12:10 PM [facility] 10/23/2014 12:1 0 PM FIRE TECHNOLOGY INSTRUCTOR Mark Rose MD GI PROCEDURE ORDERA BLES Performing Organization Address City/[facility]/ZIP Co de Phone Number [facility] [place] [address] * BASIC METABOLIC PANEL (CALCIUM TOTAL) (08/23/2014 1:39 PM FIRE TECHNOLOGY INSTRUCTOR) Only the most recent of2 resultswithin the time period is included. Glucose 77 65 - 99 mg/dL [facility] ACCOUNT BILL BUN 9 6 - 24 mg/dL [facility] ACCOUNT BILL Creatinine 0.94 0.57 - 1.00 mg/dL [facility] ACCOUNT BILL eGFR by MDRD 71 >59 mL/min/1.7 3 [facility] ACCOUNT BILL eGFR by MDRD 82 >59 mL/min/1.7 3 [facility] ACCOUNT BILL BUN/Creatinine Ratio 10 9 - 23 [facility] ACCOUNT BILL Sodium 140 134 - 144 mmol/L [facility] ACCOUNT BILL Potassium 4.2 3.5 - 5.2 mmol/L [facility] ACCOUNT BILL Chloride 102 97 - 108 mmol/L [facility] ACCOUNT BILL CO2 21 18 - 29 mmol/L [facility] ACCOUNT BILL Calcium 9.6 8.7 - 10.2 mg/dL [facility] ACCOUNT BILL Blood specimen (specimen) BLOOD SPECIMEN / Unknown 08/23/2014 1:39 PM FIRE TECHNOLOGY INSTRUCTOR 08/23/2014 5:05 PM FIRE TECHNOLOGY INSTRUCTOR Narrative Resulting Agency Comment [facility] [address] ??[facility] [phone] Sveta Gross MD LAB - CHEMISTRY ORD ERABLES Performing Organization Address City/[facility]/ZIP Co de Phone Number [facility] ACCOUNT BILL * PAP SMEAR IG RFLX HPV ASCU (PO REF LAB) (01/24/2014 3:19 PM CDT) Diagnosis [facility] INSURANCE BILL Comment:NEGATIVE FOR INTRAEP ITHELIAL LESION AND MALIGNANCY. Specimen Adequacy [facility] INSURANCE BILL Comment: Satisfactory for evaluation. ??Endocervical and/or squamous metaplastic cells (endocervical component) are present. Clinician Provided ICD9 [facility] INSURANCE BILL Comment: V72.31 ; Routine gynecological examination V76.10 ; Unspecified breast screening V76.51 ; Special screening for malignant neoplasms, colon V76.2 ; Screening for malignant neoplasm of the cervix 701.9 ; Unspecified hypertrophic and atrophic condition of skin Performed by [facility] INSURANCE BILL Comment:Axel Mendoza ytotechnologist ([facility]) Comment . [facility] INSURANCE BILL Note [facility] INSURANCE BILL Comment: The Pap smear is a screening test designed to aid in the detection of premalignant and malignant conditions of the uterine cervix. ??It is not a diagnostic procedure and should not be used as the sole means of detecting cervical cancer. ??Both false-positive and false-negative reports do occur. ? . IGLBP CPT Code Automation [facility] INSURANCE BILL Comment: This liquid based ThinPrep(R) pap test was screened with the use of an image guided system. Note [facility] INSURANCE BILL Comment: The HPV DNA reflex criteria were not met with this specimen result therefore, no HPV testing was performed. ? . MICROSCOPIC CYTOLOGIC EXAMINATION OF SMEAR OF SPECIMEN FROM FEMALE GENITAL TRACT PREPARED USING PAPANICOLAOU TECHNIQUE / Unknown 01/24/2014 3:19 PM CDT 01/26/2014 3:05 AM CDT Narrative [facility] INSURANCE BILL - 01/28/2014 2:08 PM CDT No. of containers..01 CYTYC Thin Prep Vial Resulting Agency Comment [facility] Fabrice [address] [place] [address] Ilia ??Fabrice NAIR [phone] Sveta Gross MD LAB - PATHOLOGY/CYT OLOGY ORDERABLES [facility] INSURANCE BILL * URINALYSIS AUTO - POINT OF CARE (01/24/2014 3:08 PM CDT) Clarity UA POCT Color UA POCT Leukocyte UA trace Negative Nitrite UA POCT negative Negative Urobilinogen UA 0.2 0.1 - 1.0 Protein UA POCT negative Negative pH UA 7.0 5.0 - 8.0 pH units Blood UA negative Negative Specific [place] UA POCT 1.015 1.002 - 1.030 Ketone UA negative Negative Bilirubin UA POCT negative Negative Glucose UA negative Negative Urine specimen (specimen) URINE / Unknown Sveta Gross MD LAB - POINT OF CARE ORDERABLES * XR ANKLE 3+ VW RIGHT (09/28/2013 3:55 PM FIRE TECHNOLOGY INSTRUCTOR) Anatomical Region Laterality Modality Lower Extremity Radiographic Louann ging 09/28/2013 4:11 PM FIRE TECHNOLOGY INSTRUCTOR Impressions 09/28/2013 6:52 PM FIRE TECHNOLOGY INSTRUCTOR Negative for fracture at this time. ??Please see above. Edited by Yvrose Huerta on 09/28/2013 4:27 PM Narrative 09/28/2013 6:52 PM FIRE TECHNOLOGY INSTRUCTOR Examination: Right ankle 3 views Indication: ??Right ankle pain. ??The patient denies injury. Findings: No fracture can be identified on the current plain films. Arthritic changes are noted at the ankle with dystrophic appearing calcification anterior to the ankle joint on the lateral view. ??There also appears to be a dystrophic calcification adjacent to the tip of the medial malleolus and the lateral edge of the talus on the oblique view of the ankle. ??If the patient's symptoms persist or worsen, consideration may be given to an alternative imaging modality such as an MRI or a bone scan to check for an occult process. Procedure Note David Styles MD - 09/28/2013 Examination: Right ankle 3 views Indication: Right ankle pain. The patient denies injury. Findings: No fracture can be identified on the current plain films. Arthritic changes are noted at the ankle with dystrophic appearing calcification anterior to the ankle joint on the lateral view. There also appears to be a dystrophic calcification adjacent to the tip of the medial malleolus and the lateral edge of the talus on the oblique view of the ankle. If the patient's symptoms persist or worsen, consideration may be given to an alternative imaging modality such as an MRI or a bone scan to check for an occult process. IMPRESSION Negative for fracture at this time. Please see above. Edited by Yvrose Huerta on 09/28/2013 4:27 PM Sveta Gross MD DIAGNOSTIC IMAGING ORDERABLES * THYROID PANEL W TSH (09/28/2013 3:34 PM FIRE TECHNOLOGY INSTRUCTOR) TSH 0.596 0.450 - 4.500 uIU/mL [facility] INSURANCE BILL T4 Total 9.3 4.5 - 12.0 ug/dL [facility] INSURANCE BILL T3 Uptake 26 24 - 39 % [facility] INSURANCE BILL Free Thyroxine Index 2.4 1.2 - 4.9 [facility] INSURANCE BILL Blood specimen (specimen) BLOOD SPECIMEN / Unknown 09/28/2013 3:34 PM FIRE TECHNOLOGY INSTRUCTOR 09/28/2013 6:53 PM FIRE TECHNOLOGY INSTRUCTOR Narrative Resulting Agency Comment [facility] [address] ??[facility] [phone] Sveta Gross MD LAB - CHEMISTRY ORD ERABLES [facility] INSURANCE BILL * CT ABDOMEN AND PELVIS NON IV CONTRAST (09/02/2013 3:43 AM FIRE TECHNOLOGY INSTRUCTOR) Anatomical Region Laterality Modality Abdomen, Pelvis Computed Tomogra phy 09/02/2013 7:56 AM FIRE TECHNOLOGY INSTRUCTOR Impressions 09/02/2013 8:31 AM FIRE TECHNOLOGY INSTRUCTOR No acute process is seen. Preliminary interpretation was provided by [facility]. Edited by Teresita Shea on 09/02/2013 8:08 AM Narrative 09/02/2013 8:31 [address]RE [address]CHNOLOGY INSTRUCTOR CT ABDOMEN AND PELVIS WITHOUT CONTRAST Clinical Indication: Right flank pain. Technique: Axial CT images from the lung bases through the pubic symphysis were obtained without intravenous contrast. Findings: Comparison is made with 08/26/2013. The lung bases are clear. A gastric lap band is in place. No free fluid is seen in the pelvis. Appendix is normal. Bowel has normal caliber. Gallbladder is absent. Liver, spleen, pancreas, stomach, ??duodenum and kidneys are unremarkable. Again seen is a low density right adrenal adenoma measuring 3.4 cm which is unchanged since the prior exams. No hydronephrosis or stone is seen. No inflammatory changes are seen. Procedure Note Sanket Martinez MD - 09/02/2013 CT ABDOMEN AND PELVIS WITHOUT CONTRAST Clinical Indication: Right flank pain. Technique: Axial CT images from the lung bases through the pubic symphysis were obtained without intravenous contrast. Findings: Comparison is made with 08/26/2013. The lung bases are clear. A gastric lap band is in place. No free fluid is seen in the pelvis. Appendix is normal. Bowel has normal caliber. Gallbladder is absent. Liver, spleen, pancreas, stomach, duodenum and kidneys are unremarkable. Again seen is a low density right adrenal adenoma measuring 3.4 cm which is unchanged since the prior exams. No hydronephrosis or stone is seen. No inflammatory changes are seen. IMPRESSION No acute process is seen. Preliminary interpretation was provided by [facility]. Edited by Teresita Shea on 09/02/2013 8:08 AM Luciano Nguyễn DO CT ORDERABLES * (ABNORMAL) URINALYSIS ROUTINE W/REFLEX TO CULTURE (09/02/2013 2:26 AM FIRE TECHNOLOGY INSTRUCTOR) Only the most recent of2 resultswithin the time period is included. Color UA Yellow Straw, Yellow, Dark Yellow 09/02/2013 2:45 AM FIRE TECHNOLOGY INSTRUCTOR [facility] Clarity UA Cloudy 09/02/2013 2:45 AM FIRE TECHNOLOGY INSTRUCTOR [facility] Specific [place] UA 1.021 1.005 - 1.030 09/02/2013 2:45 AM FIRE TECHNOLOGY INSTRUCTOR [facility] pH UA 6.5 5.0 - 8.0 pH 09/02/2013 2:45 AM FIRE TECHNOLOGY INSTRUCTOR [facility] Protein UA Negative Negative 09/02/2013 2:45 AM FIRE TECHNOLOGY INSTRUCTOR [facility] Blood UA Negative Negative 09/02/2013 2:45 AM FIRE TECHNOLOGY INSTRUCTOR [facility] Leukocyte UA 1+(A) Negative 09/02/2013 2:45 AM FIRE TECHNOLOGY INSTRUCTOR [facility] Nitrite UA Negative Negative 09/02/2013 2:45 AM FIRE TECHNOLOGY INSTRUCTOR [facility] Glucose UA Negative Negative 09/02/2013 2:45 AM FIRE TECHNOLOGY INSTRUCTOR [facility] Ketone UA Negative Negative 09/02/2013 2:45 AM [facility] Bilirubin UA 1+(A) Negative 09/02/2013 2:45 AM [facility] Comment:Unable to verify ricardo irubin result. Urobilinogen UA 1.0 0.1 - 1.0 EU/dL 09/02/2013 2:45 AM [facility] Reflex Status Culture to follow 09/02/2013 2:45 AM [facility] Urine URINE SPECIMEN OBTAINED BY CLEAN CATCH PROCEDURE / Unknown 09/02/2013 2:26 AM FIRE TECHNOLOGY INSTRUCTOR 09/02/2013 2:34 AM FIRE TECHNOLOGY INSTRUCTOR Luciano Nguyễn DO LAB - URINALYSIS ORD ERABLES Performing Organization Address [facility] Co de Phone Number [facility] [id number] [place] [phone] * (ABNORMAL) URINALYSIS MICROSCOPIC ONLY W/REFLEX CULTURE (09/02/2013 2:26 AM FIRE TECHNOLOGY INSTRUCTOR) RBC UA 2-5 0-2, 2-5 # /hpf 09/02/2013 2:52 AM [facility] WBC UA 10-20(A) 0-2, 2-5 # /hpf 09/02/2013 2:52 AM [facility] Bacteria UA 2+(A) None Seen 09/02/2013 2:52 AM [facility] Epithelial Cell UA 10-20(A) 0-2, 2-5 09/02/2013 2:52 AM [facility] Mucus UA 2+ 09/02/2013 2:52 AM [facility] Urine URINE SPECIMEN OBTAINED BY CLEAN CATCH PROCEDURE / Unknown 09/02/2013 2:26 AM FIRE TECHNOLOGY INSTRUCTOR 09/02/2013 2:34 AM FIRE TECHNOLOGY INSTRUCTOR Luciano Nguyễn DO LAB - URINALYSIS ORD ERABLES Performing Organization Address [facility] Co de Phone Number [facility] [address] [place] [address] * CULTURE URINE (09/02/2013 2:26 AM FIRE TECHNOLOGY INSTRUCTOR) Only the most recent of2 resultswithin the time period is included. Culture <10,000 CFU/mL normal urogenital lina 09/04/2013 10:38 AM FIRE TECHNOLOGY INSTRUCTOR [facility] Urine URINE SPECIMEN OBTAINED BY CLEAN CATCH PROCEDURE / Unknown 09/02/2013 2:26 AM FIRE TECHNOLOGY INSTRUCTOR 09/02/2013 2:34 AM FIRE TECHNOLOGY INSTRUCTOR Luciano Nguyễn DO LAB - MICROBIOLOGY O RDERABLES Performing Organization Address City/[facility]/ZIP Co de Phone Number [facility] [address] [place] * CLOSTRIDIUM DIFFICILE BY PCR (08/24/2013 8:08 AM FIRE TECHNOLOGY INSTRUCTOR) C difficile Toxin Gene MATEO Negative Negative [facility] ACCOUNT BILL Stool specimen (specimen) STOOL SPECIMEN / Unknown 08/24/2013 8:08 AM FIRE TECHNOLOGY INSTRUCTOR 08/24/2013 5:42 PM FIRE TECHNOLOGY INSTRUCTOR Narrative Resulting Agency Comment [facility] [address] [facility] ??[facility] [phone] Sveta Gross MD LAB - MICROBIOLOGY ORDERABLES Performing Organization Address [facility] Co de Phone Number [facility] ACCOUNT BILL * FL ERCP BILIARY ONLY (08/12/2013 1:20 PM FIRE TECHNOLOGY INSTRUCTOR) Anatomical Region Laterality Modality Abdomen Radiographic Louann ging 08/12/2013 1:29 PM FIRE TECHNOLOGY INSTRUCTOR Narrative 08/12/2013 2:59 PM FIRE TECHNOLOGY INSTRUCTOR FLUOROSCOPIC ERCP COMPLETE INDICATION: Right upper quadrant abdominal pain. FINDINGS: 1.4 minutes of fluoroscopy was provided. A radiologist was not present. There is an endoscope overlying the right upper quadrant of the abdomen. There is opacification of the intrahepatic ducts, common hepatic duct, and common bile duct. The previously seen small filling defects on the cholangiogram from August 10, 2013 in the the proximal common duct and near the cystic duct are no longer clearly demonstrated. These findings could should be correlated with those seen in real-time fluoroscopy. Edited by Spring Sol on 08/12/2013 1:35 PM Procedure Note Feliz Scherer MD - 08/12/2013 FLUOROSCOPIC ERCP COMPLETE INDICATION: Right upper quadrant abdominal pain. FINDINGS: 1.4 minutes of fluoroscopy was provided. A radiologist was not present. There is an endoscope overlying the right upper quadrant of the abdomen. There is opacification of the intrahepatic ducts, common hepatic duct, and common bile duct. The previously seen small filling defects on the cholangiogram from August 10, 2013 in the the proximal common duct and near the cystic duct are no longer clearly demonstrated. These findings could should be correlated with those seen in real-time fluoroscopy. Edited by Spring Sol on 08/12/2013 1:35 PM Mark Rose MD FLUOROSCOPY ORDERAB LES * CKMB (08/10/2013 10:59 AM FIRE TECHNOLOGY INSTRUCTOR) CK-MB 0.5 0.0 - 5.0 ng/mL 08/10/2013 11:40 AM FIRE TECHNOLOGY INSTRUCTOR [facility] Blood BLOOD SPECIMEN / Unknown Venipuncture / Unknown 08/10/2013 10:59 AM FIRE TECHNOLOGY INSTRUCTOR 08/10/2013 11:17 AM FIRE TECHNOLOGY INSTRUCTOR Dax Lebron DO LAB - CHEMISTRY ANUSHKA LOVE Performing Organization Address City/State/[facility] Co de Phone Number [facility] [address] [place] [phone] * XR CHOLANGIOGRAM OPERATIVE (08/10/2013 9:10 AM FIRE TECHNOLOGY INSTRUCTOR) Anatomical Region Laterality Modality Abdomen Radiographic Louann ging 08/10/2013 12:3 8 PM FIRE TECHNOLOGY INSTRUCTOR Impressions 08/10/2013 2:00 PM FIRE TECHNOLOGY INSTRUCTOR Small filling defects present on intraoperative cholangiogram. Edited by Genevieve Olmstead on 08/10/2013 12:58 PM Narrative 08/10/2013 2:00 PM FIRE TECHNOLOGY INSTRUCTOR FLUOROSCOPY OR CHOLANGIOGRAM INDICATION: Abdominal pain. 52 seconds of fluoroscopy was provided to the Surgical Service. No radiologist was present. Examination shows opacification of a normal caliber common bile duct. There are multiple small filling defects identified just at the orifice of the cystic duct and the common duct. These are mobile. It is unclear whether these represent small stones or bubbles. Followup for small stones would be warranted. Procedure Note Dana Patton MD - 08/10/2013 FLUOROSCOPY OR CHOLANGIOGRAM INDICATION: Abdominal pain. 52 seconds of fluoroscopy was provided to the Surgical Service. No radiologist was present. Examination shows opacification of a normal caliber common bile duct. There are multiple small filling defects identified just at the orifice of the cystic duct and the common duct. These are mobile. It is unclear whether these represent small stones or bubbles. Followup for small stones would be warranted. IMPRESSION Small filling defects present on intraoperative cholangiogram. Edited by Genevieve Olmstead on 08/10/2013 12:58 PM Noah Alvares MD DIAGNOSTIC IMAGING O RDERABLES * (ABNORMAL) F-ACTIN (SMOOTH MUSCLE) ANTIBODY W REFLEX TITER (08/09/2013 10:45 AM FIRE TECHNOLOGY INSTRUCTOR) F-Actin Antibody IgG 30(H) 0 - 19 Units 08/11/2013 2:53 AM FIRE TECHNOLOGY INSTRUCTOR [email or web address] Comment: INTERPRETIVE INFORMATION: F-Actin (Smooth Muscle) Antibody, IgG by TOM ??19 Units or less ....... Negative ??20 - 30 Units .......... Weak Positive-Suggest repeat ? testing in two to three weeks ? with fresh specimen. ??31 Units or greater..... Positive-Suggestive of ? autoimmune hepatitis type 1 ? or chronic active hepatitis. F-actin antibodies have been shown to have greater sensitivity and specificity for autoimmune liver disease than anti-smooth muscle antibodies. Blood specimen (specimen) BLOOD SPECIMEN / Unknown 08/09/2013 10:45 AM FIRE TECHNOLOGY INSTRUCTOR 08/09/2013 10:58 AM FIRE TECHNOLOGY INSTRUCTOR Mark Rose MD LAB - SEROLOGY [place]USHKA LOVE [email or web address] [address] [place] [address] * SMOOTH MUSCLE ANTIBODY TITER (08/09/2013 10:45 AM FIRE TECHNOLOGY INSTRUCTOR) [facility] Smooth Muscle Antibody IgG Titer <1:20 <1:20 08/11/2013 4:38 PM FIRE TECHNOLOGY INSTRUCTOR [facility] Comment: INTERPRETIVE INFORMATION: ??Smooth Muscle Ab, IgG Titer ??Less than 1:20 ........ Negative - No antibody detected. ??1:20 - 1:80 ??.......... Weak Positive - Suggest repeat ?in two to three weeks with fresh ?specimen. ??1:160 or greater ...... Positive - Suggestive of ?autoimmune hepatitis or chronic ?active hepatitis. Blood specimen (specimen) BLOOD SPECIMEN / Unknown 08/09/2013 10:45 AM FIRE TECHNOLOGY INSTRUCTOR 08/09/2013 10:58 AM FIRE TECHNOLOGY INSTRUCTOR Mark Rose MD LAB - CHEMISTRY ORD ERABLES Performing Organization Address City/State/[facility] Co de Phone Number [email or web address] [address] [place] [address] * HEPATITIS SCREEN ACUTE (08/09/2013 10:45 AM FIRE TECHNOLOGY INSTRUCTOR) [facility] HAV Antibody IgM Non Reactive Non Reactive 08/09/2013 5:52 PM FIRE TECHNOLOGY INSTRUCTOR [facility] HBsAg Non Reactive Non Reactive 08/09/2013 5:52 PM FIRE TECHNOLOGY INSTRUCTOR [facility] HBc Antibody IgM Non Reactive Non Reactive 08/09/2013 5:52 PM FIRE TECHNOLOGY INSTRUCTOR [facility] HCV Antibody Screen Non Reactive Non Reactive 08/09/2013 5:52 PM FIRE TECHNOLOGY INSTRUCTOR [facility] Blood BLOOD SPECIMEN / Unknown 08/09/2013 10:45 AM FIRE TECHNOLOGY INSTRUCTOR 08/09/2013 10:58 AM FIRE TECHNOLOGY INSTRUCTOR Narrative [facility] - 08/09/2013 5:52 PM FIRE TECHNOLOGY INSTRUCTOR Nonreactive - Antibodies to HCV were not detected, result does not exclude early acute HCV infection. Mark Rose MD LAB - CHEMISTRY ORD ERABLES [facility] [address] [place] [address] * US ABD LIMITED (RUQ) (08/08/2013 10:14 AM FIRE TECHNOLOGY INSTRUCTOR) Anatomical Region Laterality Modality Abdomen Ultrasound 08/08/2013 11:1 7 AM FIRE TECHNOLOGY INSTRUCTOR Impressions 08/08/2013 11:55 AM FIRE TECHNOLOGY INSTRUCTOR 1. Right adrenal gland enlargement. 2. Distended gallbladder. Edited by Sheri Zhong on 08/08/2013 11:41 AM Narrative 08/08/2013 11:55 AM FIRE TECHNOLOGY INSTRUCTOR ULTRASOUND ABDOMEN LIMITED INDICATION: Abdominal pain and elevated liver function tests. Right adrenal gland enlargement. FINDINGS Ultrasound without prior shows the liver to be normal in size, contour and echotexture. There is no intrahepatic duct dilation. The visualized portions of the pancreas are unremarkable. The gallbladder is distended but no discrete stones are demonstrated. The common bile duct measures 0.65 cm. The right kidney measures 1.17 x 4.64 x 6.26 cm. ??There is no hydronephrosis. The right adrenal gland appears enlarged measuring up to 2.93 cm. The main portal vein and hepatic vein appear patent. Procedure Note Feliz Scherer MD - 08/08/2013 ULTRASOUND ABDOMEN LIMITED INDICATION: Abdominal pain and elevated liver function tests. Right adrenal gland enlargement. FINDINGS Ultrasound without prior shows the liver to be normal in size, contour and echotexture. There is no intrahepatic duct dilation. The visualized portions of the pancreas are unremarkable. The gallbladder is distended but no discrete stones are demonstrated. The common bile duct measures 0.65 cm. The right kidney measures 1.17 x 4.64 x 6.26 cm. There is no hydronephrosis. The right adrenal gland appears enlarged measuring up to 2.93 cm. The main portal vein and hepatic vein appear patent. IMPRESSION 1. Right adrenal gland enlargement. 2. Distended gallbladder. Edited by Sheri Zhong on 08/08/2013 11:41 AM Dana Zimmer DO US ORDERABLES * IMAGING/RADIOLOGY/XRAY RESULTS ORDER (08/07/2008) Only the most recent of3 resultswithin the time period is included. Anatomical Region Laterality Modality Other Provider Unknown IMAGING Care Teams Drill Press Set Up Operator Radial Relationship Specialty Start Date End Date Naya Arriola PA-C [address] [place] [phone] PCP - General Physician Stove Installer 01/19/20 Stevenson Almanza MD Neurology 08/16/14 [place] [address] [address] Pulmonary Disease 02/14/16
--- OUTSIDE RECORDS SUMMARY | 2024-09-18 09:30 | XMS_ITS | Encounter Summary ---
Author Organization [facility] Address [address] [place] [address] Care Team Providers Care Professional System Administrator Name Role Phone Stevenson Almanza MD Unavailable [phone] Dequan Baxter MD Unavailable [phone] Naya Arriola PA-C Primary Care Provider + Reason for Visit * Reason Comments Yearly Encounter Details Date Type Department Care Team (Late st Contact Info) Description 08/25/2023 11:30 AM PAPER AND PULP MILL WORKER Office Visit [facility] [place] [address] Mic[address] [address] [place] [address] [address] [address] Fatty liver (Primary Dx); Gastroesophageal reflux disease without esophagitis; Gastroparesis; HAMILTON (nonalcoholic steatohepatitis); Abdominal pain, RUQ (right upper quadrant) Social History Tobacco Use Types Packs/Day Years [...] Comments Blood Pressure 102/69 08/25/2023 11:30 AM PAPER AND PULP MILL WORKER Pulse 92 08/25/2023 11:30 AM PAPER AND PULP MILL WORKER Temperature - - Respiratory Rate - - Oxygen Saturation 94% 08/25/2023 11:30 AM PAPER AND PULP MILL WORKER Inhaled Oxygen Concentration - - Weight 107 kg (236 lb) 08/25/2023 11:30 AM PAPER AND PULP MILL WORKER Height - - Body Mass Index 41.81 04/28/2023 1:00 PM CDT documented in this [...] as of this encounter Progress Notes * Mark Rose MD - 08/25/2023 12:35 PM CST Office Note Follow Up Appointment DEMOGRAPHICS: Patient: Lucretia Rodriguez : 1965 Referring Physician: Naya Arriola PA-C SUBJECTIVE: Lucretia Rodriguez is a most pleasant 57 year old female being seen for follow-up for HAMILTON, GERD, sphincter of Ode I dysfunction, chronic constipation and gastroparesis. She was last seen in April,. Overall she is done very well over the last year. She maintains compliant with a gastroparesis diet and has lost 2 lb since her last visit. Her most recent liver function tests are normal. She has occasional nausea but denies vomiting. She is intermittent right upper quadrant pain but is overall well controlled on amitriptyline. She denies dysphagia but does note that she cut her food small and chews bites well. She is currently having a daily bowel movement on Linzess 290 mcg q.day. There is no associated hematochezia. PAST HISTORY: Past Medical History: Diagnosis Date ??? Anemia ??? Anxiety ??? Depressive disorder, not elsewhere classified ??? Diabetes (CMS-HCC) ??? Generalized anxiety disorder ??? H/O heart artery stent 2010 [id number] LAD( ) [facility] ??? H/O laparoscopic adjustable gastric banding 2009 ??? Heart attack ([facility]) 2010 ??? HTN (hypertension) ??? Hyperlipemia ??? Hypertension ??? Hypothyroid ??? Migraine ??? Multiple sclerosis ([facility]) 2005 Dr. Almanza ??? LISSETTE (obstructive sleep [...] month, now on ASA ??? ENDOMETRIAL ABLATION 2005 for heavy menses. ??? ENDOSCOPY, UPPER 12/07/2017 ESOPHAGOGASTRODUODENOSCOPY (EGD) DIAGNOSTIC ??? ENDOSCOPY, UPPER 06/18/2020 ESOPHAGOGASTRODUODENOSCOPY (EGD) DIAGNOSTIC WITH BIOPSY AND OR POLYPECTOMY ??? ERCP 08/12/2013 ERCP ??? Knee Replacement Left ??? SYS LAP BAND 10.0 2009 ??? Tonsillectomy ??? TUBAL LIGATION, LAPAROSCOPIC ??? ULNAR NERVE RELEASE R side OUTPATIENT MEDICATIONS: Lucretia Nehemiah Rodriguez has a current medication list which includes the following prescription(s): amitriptyline, aspirin 81, atorvastatin, canagliflozin, celecoxib, vitamin d, furosemide, isosorbide mononitrate cr 24hr, levothyroxine, linaclotide, lisinopril, loratadine, melatonin, metformin, metoprolol tartrate ir, nitroglycerin, ondansetron, onetouch ultra, oxybutynin, pantoprazole ec, rybelsus, and tramadol. REVIEW OF SYSTEMS: General ROS: alert oriented and cooperative Psychological ROS:appropriate Ophthalmic ROS: within normal limitis ENT ROS: patent airway Allergy and Immunology ROS:negative Hematological and Lymphatic ROS: No bleeding or bruising Endocrine ROS: negative Breast ROS: negative Respiratory ROS: negative, no cough, shortness of breath, or wheezing Cardiovascular ROS: negative,no chest pain or dyspnea on exertion Genito-Urinary ROS: negative, no dysuria, trouble voiding, or hematuria Musculoskeletal ROS: negative Neurological ROS: negative,no TIA or stroke symptoms Dermatological ROS: negative PHYSICAL EXAM: BP 102/69 Pulse 92 Wt 107 kg (236 lb) SpO2 94% Physical Exam: Gen: Alert, oriented, no distress HEENT: Nc/at, perrl/eomi, OP clear Neck: No significant LAD, nonpalpable thyroid Lungs: CTA bilaterally CV: RRR, s1s2, no murmurs heard Abdomen: Soft, mild right upper quadrant tender, non distended, normal bowel sounds, no organomegaly Extremities: No edema LABS: Recent Labs Component Name 05/07/22 1440 10/26/20 1456 04/18/20 1204 09/27/18 1054 05/26/18 0742 SODIUM 142 140 140 142 143 POTASSIUM 4.6 3.9 3.7 4.3 4.9 CHLORIDE 103 97 102 104 102 CO2 27 24 23 29 22 BUN 10 12 17 14 16 CREATININE 0.88 1.02* 0.96 0.79 0.91 GLUCOSE 90 89 152* 85 89 Recent Labs Component Name 06/10/17 0727 05/27/16 1417 11/12/15 1047 07/31/15 0936 03/28/15 19401/23/15 1320 WBC 5.8 8.1 7.7 7.2 8.5 7.7 HGB 14.8 13.6 14.2 13.9 15.1 14.0 PLTCOUNT - 229 214 202 189 235 MCV 86 86.0 87.5 88.5 87.5 88 INR 1.0 - - - - - Recent Labs Component Name 05/22/23 1641 11/08/22 0920 05/07/22 1440 10/26/20 1456 04/18/20 1204 ALBUMIN 4.1 4.6 4.2 4.4 4.8 4.6 ALKPHOS 84 90 90 78 84 67 TBIL 0.3 0.4 0.4 0.6 0.6 0.4 AST 25 25 42* 31 77* 42* ALT 20 24 36* 25 60* 47* Recent Labs Component Name 06/10/17 0727 03/28/151948 LIPASE - 138 FERRITIN 95 - IRON 94 - ASSESSMENT: Lucretia Rodriguez is a 57 year old female with HAMILTON, GERD and esophageal stricture, chronic constipation, sphincter of Ode I dysfunction and gastroparesis PLAN: 1. GERD and gastroparesis Continue with dietary lifestyle modification Continue with goals of gradual weight loss Continue Protonix 40 mg q.day Patient has a copy of a gastroparesis diet History of an esophageal stricture, symptoms well controlled with dietary modification 2. [place] Continue to avoid alcohol consumption Continue with goals of gradual weight loss Most recent liver function tests normal. Will monitor every 6 months 3. Chronic constipation Continue Linzess 290 mcg q.day 4. Sphincter of Ode I dysfunction Keep dietary fat intake low Continue amitriptyline 100 mg Q HS 5. Colorectal cancer screening Repeat colonoscopy in 2029 No orders of the defined types were placed in this encounter. I have discussed the above recommendations and their risks, benefits, and alternatives, with the patient and any family present, and all agreed with the plan. All questions were answered. R AND PULP MILL WORKER documented in this encounter Plan of Treatment Upcoming Encounters Date Type Department Care Team (Late st Contact Info) Description 09/27/2024 2:20 PM PAPER AND PULP MILL WORKER Office Visit [facility] [address] [facility] [address] [place] [phone] [place] [address] [facility] [address] [place] [phone] 09/28/2024 1:00 PM PAPER AND PULP MILL WORKER Office Visit [facility] [place] [address] Michele Barrett, [facility] [address] [place] [phone] [place] [address] [facility] [address] [place] [address] documented as of this encounter Goals Goal Patient Goal Type Associated Problems Recent Progress Patient-Stated? Author Blood Pressure < 140/90 Blood Pressure 102/69(2022 11:30 AM PAPER AND PULP MILL WORKER) No Melinda Newsome Quit smoking / using tobacco Lifestyle No Melinda Newsome documented as of this encounter Visit Diagnoses Diagnosis Fatty liver- Primary Other chronic nonalcoholic liver disease Gastroesophageal reflux disease without esophagitis Esophageal reflux Gastroparesis HAMILTON (nonalcoholic steatohepatitis) Other chronic nonalcoholic liver disease Abdominal pain, RUQ (right upper quadrant) Abdominal pain, right upper quadrant documented in this encounter Care Teams Professional System Administrator Relationship Specialty Start Date End Date Naya Arriola PA-C [address] [place] [address] PCP - General Physician Supervisor Mold Yard 01/19/20 Stevenson Almanza MD Neurology 08/16/14 [place] [address] [address] Pulmonary Disease 02/14/16 documented as of this encounter
--- OUTSIDE RECORDS SUMMARY | 2024-09-18 09:30 | XMS_ITS | Encounter Summary ---
Author Organization [facility] Address [address] [facility] [place] [address] Care Team Providers Care Guard Dance Hall Name Role Phone Stevenson Almanza MD Unavailable [phone] Dequan Baxter MD Unavailable [phone] Naya Arriola PA-C Primary Care Provider + Reason for Visit * Reason Comments Refill Request Encounter Details Date Type Department Care Team (Late st Contact Info) Description 02/09/2023 Refill [facility] Medical [facility] - [address] [address] [address] [place] [address] [address] [address] Refill Request Social History Tobacco [...] st Contact Info) Description 09/27/2024 2:20 PM LEATHER FITTER Office Visit [facility] Neurosciences [address] [facility] [address] [place] [phone] [place] [address] [facility] JUAN ALBERTO [address] [place] [address] 09/28/2024 1:00 PM LEATHER FITTER Office Visit [facility] [place] [address] [facility] , Juan Alberto [address] [place] [address] [place] [address] [address]RETT JUAN ALBERTO [address] [place] [address] documented as of this encounter Goals Goal Patient Goal Type Associated Problems Recent Progress Patient-Stated? Author Blood Pressure < 140/90 Blood Pressure 102/69(2022 11:30 AM LEATHER FITTER) No Melinda Newsome Quit smoking / using tobacco Lifestyle No Melinda Newsome documented as of this encounter Visit Diagnoses Not on filedocumented in this encounter Care Teams Guard Dance Hall Relationship Specialty Start Date End Date Naya Arriola PA-C [address] [place] [phone] PCP - General Physician Chinese Teacher 01/19/20 Stevenson Almanza MD Neurology 08/16/14 [place] [address] [address] Pulmonary Disease 02/14/16 documented as of this encounter
--- OUTSIDE RECORDS SUMMARY | 2024-09-18 09:31 | XMS_ITS | Encounter Summary ---
Author Organization [facility] Health Address [address] [facility] [place] [address] Care Team Providers Care Business Quality Assurance Analyst Name Role Phone Stevenson Almanza MD Unavailable Dequan Baxter MD Unavailable [phone] Naya Arriola PA-C Primary Care Provider + Encounter Details Date Type Department Care Team (Latest Contact Info) Description 01/23/2021 Travel Social History Tobacco Use Types Packs/Day [...] Exposure Response Date Recorded In the last month, have you been in contact with someone who was confirmed or suspected to have Coronavirus / COVID-19? No / Unsure 01/23/2021 2:10 PM CDT documented as of this encounter [...] st Contact Info) Description 09/27/2024 2:20 PM BOOKER Office Visit [facility] Health Neurosciences [address] [facility] [address] [place] [address] [place] [address] [facility] JUAN ALBERTO [address] [place] [address] 09/28/2024 1:00 PM BOOKER Office Visit [facility] [place] [address] [facility] , Juan Alberto [address] [place] [address] [place] [address] [address] JUAN AL[address]ERTO [address] [place] [address] documented as of this encounter Goals Goal Patient Goal Type Associated Problems Recent Progress Patient-Stated? Author Blood Pressure < 140/90 Blood Pressure 102/69(2022 11:30 AM BOOKER) No Melinda Newsome Quit smoking / using tobacco Lifestyle No Melinda Newsome documented as of this encounter Visit Diagnoses Not on filedocumented in this encounter Care Teams Business Quality Assurance Analyst Relationship Specialty Start Date End Date Naya Arriola PA-C [facility] [place] [phone] PCP - General Physician Paper Latcher 01/19/20 Stevenson Almanza MD Neurology 08/16/14 [place] [address] [facility] [address] [place] [address] Pulmonary Disease 02/14/16 documented as of this encounter
--- OUTSIDE RECORDS SUMMARY | 2024-09-18 09:31 | XMS_ITS | Encounter Summary ---
Author Organization [facility] Address [address] [place] [address] Care Team Providers Care Bindery Library Technical Assistant Name Role Phone Stevenson Almanza MD Unavailable [phone] Dequan Baxter MD Unavailable [phone] Naya Arriola PA-C Primary Care Provider + Reason for Visit * Reason Comments Refill Request Encounter Details Date Type Department Care Team (Late st Contact Info) Description 04/17/2021 Refill [facility] [address] [facility], [address] [place] [address] Taylor Donohue, BILINGUAL ELEMENTARY SCHOOL TEACHER-[facility] [address] [facility] JUAN ALBERTO [address] [place] [address] Refill Request Social History Tobacco Use [...] st Contact Info) Description 09/27/2024 2:20 PM TREE AND SHRUB WORKER Office Visit [facility] Neurosciences [address] [facility] [address] [place] [phone] [place] [address] [facility] JUAN ALBERTO [address] [place] [address] 09/28/2024 1:00 PM TREE AND SHRUB WORKER Office Visit [facility] [place] [address] [facility] , Juan Alberto [address] [place] [address] [place] [address] [address]LL JUAN ALBERTO [address] [place] [address] documented as of this encounter Goals Goal Patient Goal Type Associated Problems Recent Progress Patient-Stated? Author Blood Pressure < 140/90 Blood Pressure 102/69(2022 11:30 AM TREE AND SHRUB WORKER) No Melinda Newsome Quit smoking / using tobacco Lifestyle No Melinda Newsome documented as of this encounter Visit Diagnoses Not on filedocumented in this encounter Care Teams Bindery Library Technical Assistant Relationship Specialty Start Date End Date Naya Arriola PA-C [address] [place] [phone] PCP - General Physician Proof Reader 01/19/20 Stevenson Almanza MD Neurology 08/16/14 [place] [address] [address] Pulmonary Disease 02/14/16 documented as of this encounter
--- OUTSIDE RECORDS SUMMARY | 2024-09-18 09:31 | XMS_ITS | Encounter Summary ---
Author Organization [facility] Address [address] [facility] [place] [address] Care Team Providers Care Sheet Metal Assembler And Riveter Name Role Phone Stevenson Almanza MD Unavailable [phone] Dequan Baxter MD Unavailable [phone] Naya Arriola PA-C Primary Care Provider + Reason for Visit * Reason Onset Date Comments LABS ONLY 04/17/2020 Encounter Details Date Type Department Care Team (Late st Contact Info) Description 04/17/2020 Telephone [facility] [employer] [facility] [address] [address] [place] [address] [address] LABS ONLY Social History Tobacco Use Types Packs/Day Years [...] have Coronavirus / COVID-19? No / Unsure 04/19/2020 11:16 AM CDT documented as of this encounter [...] as of this encounter Miscellaneous Notes * Addendum Note - David Sultana RN - 12/05/2020 1:04 PM CDTAddended by: DAVID SULTANA on: 12/05/2020 01:04 PM Modules accepted: Orders * Telephone Encounter - Robyn Patterson RN - 04/17/2020 3:07 PM CDT Scheduled egd colon and mailed instr. Order placed for cmp with pcp office. ----- Message from SARAN Knight sent at 04/17/2020 12:06 PM CDT ----- Patient needs CMP. She wishes to have this done at Dr. Naya Arriola office She also needs EGD and colon w/ Berenice. Hold aspirin x 5 documented in this encounter Plan of Treatment Upcoming Encounters Date Type Department Care Team (Late st Contact Info) Description 09/27/2024 2:20 PM CHILD CARE LEADER Office Visit [facility] [address] [facility] [address] [place] [address] [place] [address] [address] 09/28/2024 1:00 PM CHILD CARE LEADER Office Visit [facility] [place] [address] DePmoris Barrett, [address] [address] [place] [address] [address] documented as of this encounter Goals Goal Patient Goal Type Associated Problems Recent Progress Patient-Stated? Author Blood Pressure < 140/90 Blood Pressure 102/69(2022 11:30 AM CHILD CARE LEADER) No Melinda Newsome Quit smoking / using tobacco Lifestyle No Melinda Newsome documented as of this encounter Visit Diagnoses Diagnosis BOONE (nonalcoholic steatohepatitis)- Primary Other chronic nonalcoholic liver disease documented in this encounter Care Teams Sheet Metal Assembler And Riveter Relationship Specialty Start Date End Date Naya Arriola PA-C [address] [place] [phone] PCP - General Physician Bartender Server 01/19/20 Stevesnon Almanza MD Neurology 08/16/14 [place] [address] [address] Pulmonary Disease 02/14/16 documented as of this encounter
--- OUTSIDE RECORDS SUMMARY | 2024-09-18 09:31 | XMS_ITS | Encounter Summary ---
Author Organization [facility] Health Address [address] [facility] [place] [address] Care Team Providers Care People Greeter Name Role Phone Stevenson Almanza MD Unavailable [phone] Dequan Baxter MD Unavailable [phone] Naya Arriola PA-C Primary Care Provider + Reason for Visit * Radiology Services (Routine) - Closed Specialty Diagnoses / Procedures Referred By Contac t Referred To Contact Ultrasound Diagnoses Abnormal liver function tests Procedures US ABDOMEN LTD W ELASTOGRAPHY [place] [address] [address] [place] [phone] Referral ID Status Reason Start Date Expiration Date Visits Re quested Visits Authorized [id number] Closed 04/19/2020 04/19/2021 1 1 Encounter Details Date Type Department Care Team (Latest Contact Info) Description 06/15/2020 7:15 AM CDT - 06/15/2020 11:59 PM CDT Hospital Encounter [facility] Health Imaging Services - Ultrasound [address] [place] [address] [place] [address] [address] [place] [address] Discharge Disposition: Home or Self Care Social History Tobacco Use Types Packs/Day Years [...] No 10/23/2014 documented as of this encounter Medications at Time of Discharge Medication Sig Dispensed Refills Start Date End Date ASPIRIN 81 81 MG tablet once daily 02/11/2020 Cholecalciferol (VITAMIN D) 1000 UNIT capsule Take 5 (five) capsules by mouth once daily isosorbide mononitrate CR 24hr (IMDUR) 30 MG tablet Take 1 (one) tablet by mouth once daily levothyroxine (SYNTHROID) 88 MCG tablet TAKE ONE TABLET BY MOUTH ONCE DAILY BEFORE BREAKFAST 90 Tab 3 01/27/2017 lisinopril (PRINIVIL; ZESTRIL) 40 MG tablet TAKE ONE TABLET BY MOUTH ONCE DAILY 30 Tab 3 10/27/2016 metFORMIN (GLUCOPHAGE) 500 MG tablet TAKE ONE TABLET BY MOUTH ONCE DAILY 90 Tab 1 05/16/2016 metoprolol tartrate (LOPRESSOR) 50 MG tablet TAKE ONE TABLET BY MOUTH TWICE A DAY 180 Tab 1 12/08/2016 nitroGLYCERIN (NITROSTAT) 0.4 MG tablet Dissolve 1 (one) tablet under the tongue every 5 minutes as needed for Angina traMADol (ULTRAM) 50 MG tablet Take 1 (one) tablet by mouth once daily ALPRAZolam (XANAX) 0.5 MG tablet Take 1 Tab by mouth 3 times daily as needed 12/05/2016 01/21/2021 amitriptyline (ELAVIL) 75 MG tablet Take 1 tablet by mouth at bedtime 30 tablet 11 04/17/2020 12/14/2020 atorvastatin (LIPITOR) 10 MG tablet Take 40 tablets by mouth once daily 05/09/2017 01/21/2021 Blood Glucose Monitoring Suppl (ONE TOUCH BASIC SYSTEM) W/DEVICE KIT Use once daily 1 Kit 0 12/06/2015 01/21/2021 citalopram (CELEXA) 40 MG tablet TAKE ONE TABLET BY MOUTH ONCE DAILY 90 Tab 3 08/11/2016 04/22/2022 cyanocobalamin (VITAMIN B-12) 2500 MCG tablet Take 2,500 mcg by mouth once daily 04/22/2022 ferrous sulfate 325 (65 FE) MG tablet Take 325 mg by mouth once daily 01/21/2021 hydrOXYzine hcl (ATARAX) 25 MG tablet Take 75 mg by mouth at bedtime 04/22/2022 linaCLOtide (LINZESS) 290 MCG capsule TAKE ONE CAPSULE BY MOUTH ONCE DAILY ON AN EMPTY STOMACH AT LEAST 30 MINUTES PRIOR TO FIRST MEAL OF THE DAY 30 capsule 11 04/17/2020 05/07/2022 meloxicam (MOBIC) 15 MG tablet TAKE ONE TABLET BY MOUTH ONCE DAILY 90 Tab 1 06/10/2016 04/22/2022 ondansetron (ZOFRAN) 8 MG tablet Take 1 tablet by mouth every 8 hours as needed for Nausea/Vomiting 60 tablet 5 04/17/2020 06/13/2021 ONE TOUCH LANCETS MISC Use once daily 200 Each 1 09/02/2016 01/21/2021 O2 MedtechTOUCH ULTRA TEST STRIPS test strip USE ONE STRIP TO TEST BLOOD SUGAR ONCE DAILY 200 Strip 1 12/15/2016 01/21/2021 pantoprazole EC (PROTONIX) 40 MG tablet Take 1 tablet by mouth once daily 30 tablet 3 04/17/2020 08/08/2020 Sod Picosulfate-Mag Ox-Cit Acd (CLENPIQ) 10-3.5-12 MG-GM -GM/160ML SOLNIndications:Specia l screening for malignant neoplasms, colon Take 1 kit by mouth as directed 320 mL 02/22/2020 01/21/2021 VICTOZA 18 MG/3ML pen 11/08/20182020 zolpidem (AMBIEN) 5 MG tablet 10/30/2018 01/21/2021 documented as of this encounter Plan of Treatment Upcoming Encounters Date Type Department Care Team (Late st Contact Info) Description 09/27/2024 2:20 PM TRANSIT MIXER DRIVER Office Visit [facility] Health Neurosciences [address] [facility] [address] [place] [address] [place] [address] [facility] [address] [place] [address] 09/28/2024 1:00 PM TRANSIT MIXER DRIVER Office Visit [facility] [place] [address] Michele Barrett, [facility] [address] [place] [address] [place] [address] [address]RETT [facility] [address] [place] [address] documented as of this encounter Goals Goal Patient Goal Type Associated Problems Recent Progress Patient-Stated? Author Blood Pressure < 140/90 Blood Pressure 102/69(2022 11:30 AM TRANSIT MIXER DRIVER) No Melinda Nwesome Quit smoking / using tobacco Lifestyle No Melinda Newsome documented as of this encounter Procedures Procedure Name Priority Date/Time Associated Diagnosis Comments US ABDOMEN LTD W ELASTOGRAPHY Routine 06/15/2020 7:47 AM CDT Abnormal liver function tests documented in this encounter Results * US ABDOMEN LTD W ELASTOGRAPHY (06/15/2020 [...] 7:54 AM Mark Rose MD US ORDERABLES documented in this encounter Visit Diagnoses Diagnosis Abnormal liver function tests Other abnormal blood chemistry documented in this encounter Care Teams People Greeter Relationship Specialty Start Date End Date Naya Arriola PA-C [facility] [place] [address] PCP - General Physician Baster Hand 01/19/20 Stevenson Almanza MD Neurology 08/16/14 Dequan Baxter [place] [id number] [place] [address] Pulmonary Disease 02/14/16 documented as of this encounter
--- OUTSIDE RECORDS SUMMARY | 2024-09-18 09:31 | XMS_ITS | Encounter Summary ---
Author Organization [facility] Address [address] [facility] [place] [address] Care Team Providers Care Fire Sprinkler Apparatus Inspector Name Role Phone Stevenson Almanza MD Unavailable [phone] Dequan Baxter MD Unavailable [phone] Naya Arriola PA-C Primary Care Provider + Reason for Visit * Reason Comments Refill Request Encounter Details Date Type Department Care Team (Late st Contact Info) Description 01/24/2021 Refill [facility] Medical Group [address] [facility], [address] [place] [address] Taylor Donohue, ELECTROMECHANICAL EQUIPMENT ASSEMBLER-[facility] [address] [address] Refill Request Social History Tobacco [...] st Contact Info) Description 09/27/2024 2:20 PM BARBER OR BEAUTY SHOP MANAGER Office Visit [facility] Neurosciences [address] [facility] [address] [place] [phone] [place] [address] [facility] [address] [place] [phone] 09/28/2024 1:00 PM BARBER OR BEAUTY SHOP MANAGER Office Visit [facility] [place] [address] De[address] Barrett, [address] [address] [place] [address] [address] BAR[address]TT [facility] [address] [place] [address] documented as of this encounter Goals Goal Patient Goal Type Associated Problems Recent Progress Patient-Stated? Author Blood Pressure < 140/90 Blood Pressure 102/69(2022 11:30 AM BARBER OR BEAUTY SHOP MANAGER) No Melinda Newsome Quit smoking / using tobacco Lifestyle No Melinda Newsome documented as of this encounter Visit Diagnoses Not on filedocumented in this encounter Care Teams Fire Sprinkler Apparatus Inspector Relationship Specialty Start Date End Date Naya Arriola PA-C [address] [place] [phone] PCP - General Physician Predator Control Trapper 01/19/20 Stevenson Almanza MD Neurology 08/16/14 [place] [address] [address] Pulmonary Disease 02/14/16 documented as of this encounter
--- OUTSIDE RECORDS SUMMARY | 2024-09-18 09:31 | XMS_ITS | Encounter Summary ---
Author Organization [facility] Address [address] [facility] [address] [place] [address] Care Team Providers Care Singe Machine Operator Name Role Phone Stevenson Almanza MD Unavailable [phone] Dequan Baxter MD Unavailable [phone] Naya Arriola PA-C Primary Care Provider + Reason for Visit * Reason Comments Refill Request Encounter Details Date Type Department Care Team (Late st Contact Info) Description 04/07/2020 Refill [facility] Medical Group [address] [place] [address] [address] [place] [address] [place] [address] [facility] [address] [address] Refill Request Social History Tobacco [...] Contact Info) Description 09/27/2024 2:20 PM DIRECTOR PHYSICAL THERAPY Office Visit [facility] Neurosciences [address] [facility] [address] [place] [phone] [place] [address] [facility] JUAN ALBERTO [address] [place] [address] 09/28/2024 1:00 PM DIRECTOR PHYSICAL THERAPY Office Visit [facility] [place] [address] De[address] Barrett, Juan Alberto [address] [place] [address] [place] [address] [address] JUAN [address]ERT[address] [place] [address] documented as of this encounter Goals Goal Patient Goal Type Associated Problems Recent Progress Patient-Stated? Author Blood Pressure < 140/90 Blood Pressure 102/69(2022 11:30 AM DIRECTOR PHYSICAL THERAPY) No Melinda Newsome Quit smoking / using tobacco Lifestyle No Melinda Newsome documented as of this encounter Visit Diagnoses Not on filedocumented in this encounter Care Teams Singe Machine Operator Relationship Specialty Start Date End Date Naya Arriola PA-C [address] [place] [phone] PCP - General Physician Burnt Lime Drawer 01/19/20 Stevenson Almanza MD Neurology 08/16/14 [place] [address] [address] Pulmonary Disease 02/14/16 documented as of this encounter
--- OUTSIDE RECORDS SUMMARY | 2024-09-18 09:31 | XMS_ITS | Encounter Summary ---
Author Organization [facility] Address [address] [facility] [place] [address] Care Team Providers Care Director Correctional Agency Name Role Phone Stevenson Almanza MD Unavailable [phone] Dequan Baxter MD Unavailable [phone] Naya Arriola PA-C Primary Care Provider + Reason for Visit * Reason Onset Date Comments MEDICATION REFILL 06/13/2021 MEDICATION REFILL 12/04/2021 Encounter Details Date Type Department Care Team (Late st Contact Info) Description 06/13/2021 Refill [facility] Medical [address] [address] Mychart, Generic Provider MEDICATION REFILL; MEDICATION REFILL Social History Tobacco Use Types [...] st Contact Info) Description 09/27/2024 2:20 PM NETWORK SYSTEMS ADMINISTRATOR Office Visit [facility] Neurosciences [address] [facility] [address] [place] [phone] [place] [address] [facility] JUAN ALBERTO [address] [place] [address] 09/28/2024 1:00 PM NETWORK SYSTEMS ADMINISTRATOR Office Visit [facility] [place] [address] DePaul , Juan Alberto [address] [place] [address] [place] [address] DE[address]LL JUAN ALBERTO [address] [place] [address] documented as of this encounter Goals Goal Patient Goal Type Associated Problems Recent Progress Patient-Stated? Author Blood Pressure < 140/90 Blood Pressure 102/69(2022 11:30 AM NETWORK SYSTEMS ADMINISTRATOR) No Melinda Newsome Quit smoking / using tobacco Lifestyle No Melinda Newsome documented as of this encounter Visit Diagnoses Not on filedocumented in this encounter Care Teams Director Correctional Agency Relationship Specialty Start Date End Date Naya Arriola PA-C [facility] [place] [address] PCP - General Physician Enginehouse Brakeman 01/19/20 Stevenson Almanza MD Neurology 08/16/14 [place] [address] [facility] [address] [place] [address] Pulmonary Disease 02/14/16 documented as of this encounter
--- OUTSIDE RECORDS SUMMARY | 2024-09-18 09:31 | XMS_ITS | Encounter Summary ---
Author Organization [facility] Address [address] [facility] [place] [address] Care Team Providers Care Unbundler Name Role Phone Stevenson Almanza MD Unavailable [phone] Dequan Baxter MD Unavailable [phone] Naya Arriola PA-C Primary Care Provider + Reason for Visit * Reason Onset Date Comments Results 06/21/2020 egd/colon Encounter Details Date Type Department Care Team (Late st Contact Info) Description 06/21/2020 Telephone [facility] [address] [facility] [address] [place] [address] [place] [address] [facility] [address] [address] Results (egd/colon) Social History Tobacco Use Types Packs/Day Years [...] encounter Miscellaneous Notes * Telephone Encounter - Sanjuana Andrade RN - 06/21/2020 10:02 AM CDT Results and recommendations called to patient. Diet mailed * Telephone Encounter - Sanjuana Andrade RN - 06/21/2020 10:02 AM CDT ----- Message from SARAN Knight sent at 06/20/2020 3:48 PM CDT ----- Findings TREY negative for h pylori Esophageal bx negative for eosinophilia Polyps all hyperplastic recs Continue daily PPI Follow Gastroparesis diet Repeat colonoscopy in 10 years documented in this encounter Plan of Treatment Upcoming Encounters Date Type Department Care Team (Late st Contact Info) Description 09/27/2024 2:20 PM PROFESSOR OF GEOGRAPHY Office Visit [facility] Neurosciences [address] [address] [place] [address] [facility] [address] [place] [address] 09/28/2024 1:00 PM PROFESSOR OF GEOGRAPHY Office Visit [facility] [place] [address] [address] [address] [place] [address] [address] [address] documented as of this encounter Goals Goal Patient Goal Type Associated Problems Recent Progress Patient-Stated? Author Blood Pressure < 140/90 Blood Pressure 102/69(2022 11:30 AM PROFESSOR OF GEOGRAPHY) No Melinda Newsome Quit smoking / using tobacco Lifestyle No Melinda Newsome documented as of this encounter Visit Diagnoses Not on filedocumented in this encounter Care Teams Unbundler Relationship Specialty Start Date End Date Naya Arriola PA-C [address] [place] [address] PCP - General Physician Orthopedic Shoes Salesperson 01/19/20 Stevenson Almanza MD Neurology 08/16/14 [place] [address] [address] Pulmonary Disease 02/14/16 documented as of this encounter
--- OUTSIDE RECORDS SUMMARY | 2024-09-18 09:31 | XMS_ITS | Encounter Summary ---
Author Organization [facility] Address [address] [facility] [place] [address] Care Team Providers Care Weather Anchor Name Role Phone Stevenson Almanza MD Unavailable [phone] Dequan Baxter MD Unavailable [phone] Anuj Miller Primary Care Provider Unavaila ble Reason for Visit * Reason Onset Date Comments MEDICATION REFILL 12/16/2019 Encounter Details Date Type Department Care Team (Late st Contact Info) Description 12/16/2019 Refill [facility] [address] [place] [address] [address] [place] [address] [place] [address] [facility] [address] [address] MEDICATION REFILL Social History Tobacco Use Types Packs/Day Years Used Date Smoking Tobacco: Every Day Cigarettes 0.5 30 Smokeless Tobacco: Never Alcohol [...] encounter Miscellaneous Notes * Telephone Encounter - Andrew Stuart RN - 12/16/2019 12:19 PM CDT Refill request. documented in this encounter Plan of Treatment Upcoming Encounters Date Type Department Care Team (Late st Contact Info) Description 09/27/2024 2:20 PM CATHOLIC PRIEST Office Visit [facility] Neurosciences [address] [phone] [place] [address] [facility] [address] [place] [phone] 09/28/2024 1:00 PM CATHOLIC PRIEST Office Visit [facility] Health Medical Group - [address] Michele Barrett, [facility] [address] [place] [address] [place] [address] [address] BARRETT [facility] [address] [place] [address] documented as of this encounter Goals Goal Patient Goal Type Associated Problems Recent Progress Patient-Stated? Author Blood Pressure < 140/90 Blood Pressure 102/69(2022 11:30 AM CATHOLIC PRIEST) No Melinda Newsome Quit smoking / using tobacco Lifestyle No Melinda Newsome documented as of this encounter Visit Diagnoses Not on filedocumented in this encounter Care Teams Weather Anchor Relationship Specialty Start Date End Date Anuj Miller Update Information PCP - General 10/26/18 01/18/20 Stevenson Almanza MD Neurology 08/16/14 [place] [address] [place] [address] Pulmonary Disease 02/14/16 documented as of this encounter
--- OUTSIDE RECORDS SUMMARY | 2024-09-18 09:31 | XMS_ITS | Encounter Summary ---
Author Organization [facility] Address [address] [facility] [place] [address] Care Team Providers Care Fire Management Specialist Name Role Phone Stevenson Almanza MD Unavailable [phone] Dequan Baxter MD Unavailable [phone] Naya Arriola PA-C Primary Care Provider + Reason for Visit * Reason Comments Refill Request Encounter Details Date Type Department Care Team (Late st Contact Info) Description 08/08/2020 Refill [facility] Medical Group [address] [facility], [address] [place] [address] Taylor Donohue, BATCH UNIT TREATER-[facility] [address] [facility] JUAN ALBERTO [address] [place] [address] Refill Request Social History Tobacco Use [...] st Contact Info) Description 09/27/2024 2:20 PM PIECE CUTTER Office Visit [facility] Neurosciences [address] [facility] [address] [place] [phone] [place] [address] [facility] JUAN ALBERTO [address] [place] [address] 09/28/2024 1:00 PM PIECE CUTTER Office Visit [facility] [place] [address] DePaul , Juan Alberto [address] [place] [address] [place] [address] DEPA[address] MITCHELL JU[address] [place] [address] documented as of this encounter Goals Goal Patient Goal Type Associated Problems Recent Progress Patient-Stated? Author Blood Pressure < 140/90 Blood Pressure 102/69(2022 11:30 AM PIECE CUTTER) No Melinda Newsome Quit smoking / using tobacco Lifestyle No Melinda Newsome documented as of this encounter Visit Diagnoses Not on filedocumented in this encounter Care Teams Fire Management Specialist Relationship Specialty Start Date End Date Naya Arriola PA-C [address] [place] [address] PCP - General Physician Wire Frame Lampshade Maker 01/19/20 Stevenson Almanza MD Neurology 08/16/14 [place] [address] [address] Pulmonary Disease 02/14/16 documented as of this encounter
--- OUTSIDE RECORDS SUMMARY | 2024-09-18 09:31 | XMS_ITS | Encounter Summary ---
Author Organization [facility] Address [address] [facility] [place] [address] Care Team Providers Care Boss Dyer Name Role Phone Stevensno Almanza MD Unavailable [phone] Dequan Baxter MD Unavailable [phone] Naya Arriola PA-C Primary Care Provider + Encounter Details Date Type Department Care Team (Late st Contact Info) Description 11/30/2020 Orders Only [facility] - COVID Vaccine [address] [place] [phone] Feliz Nash MD [address] [place] [address] Need for vaccination Social History Tobacco Use Types Packs/Day Years [...] st Contact Info) Description 09/27/2024 2:20 PM EXTRUSION MACHINE OPERATOR Office Visit [facility] Neurosciences [address] [facility] [address] [place] [address] [place] [address] [facility] [address] [place] [address] 09/28/2024 1:00 PM EXTRUSION MACHINE OPERATOR Office Visit [facility] [address] Michele Barrett [facility] 500 [place] [address] [place] [address] [address] BARRETT [facility] [address] [place] [address] documented as of this encounter Goals Goal Patient Goal Type Associated Problems Recent Progress Patient-Stated? Author Blood Pressure < 140/90 Blood Pressure 102/69(2022 11:30 AM EXTRUSION MACHINE OPERATOR) No Melinda Newsome Quit smoking / using tobacco Lifestyle No Melinda Newsome documented as of this encounter Visit Diagnoses Diagnosis Need for vaccination Need for prophylactic vaccination and inoculation against unspecified single disease documented in this encounter Care Teams Boss Dyer Relationship Specialty Start Date End Date Naya Arriola PA-C [address] [place] [address] PCP - General Physician Area Intelligence Technician 01/19/20 Stevenson Almanza MD Neurology 08/16/14 [place] [address] [address] Pulmonary Disease 02/14/16 documented as of this encounter
--- OUTSIDE RECORDS SUMMARY | 2024-09-18 09:31 | XMS_ITS | Encounter Summary ---
Author Organization [facility] Address [address] [place] [address] Care Team Providers Care Textile Machinery Instructor Name Role Phone Stevenson Almanza MD Unavailable [phone] Dequan Baxter MD Unavailable [phone] Naya Arriola PA-C Primary Care Provider + Reason for Visit * Reason Comments ESOPHAGEAL REFLUX REFILLS Nausea Encounter Details Date Type Department Care Team (Late st Contact Info) Description 04/17/2020 11:30 AM CDT Video Visit [facility] [address] [facility], [address] [place] [address] Taylor Donohue, STIFF LEG DERRICK OPERATOR-CHARTER PILOT [address] [facility] SARAN [address] [place] [phone] Constipation, unspecified constipation type ; Screen for colon cancer; Gastroesophageal reflux disease, esophagitis presence not specified; Dysphagia, unspecified type; Sphincter of Oddi dysfunction; Gastroparesis Social History Tobacco Use Types Packs/Day Years [...] have Coronavirus / COVID-19? No / Unsure 04/17/2020 3:21 PM CDT documented as of this encounter [...] as of this encounter Progress Notes * Taylor Donohue, STIFF LEG DERRICK OPERATOR-CHARTER PILOT - 04/17/2020 11:30 AM CDT Telemedicine Note Today's visit was conducted virtually due to COVID-19 countermeasures. The patient has given verbalconsent to have today's visit conducted by this same means with treatment provided remotely. The patient verbally consents to the billing and collection practices of [facility]. Patient location: Home This encounter was performed using: audio Reason for not using video for visit: patient refused Time spent with patient/proxy: 21 minutes (greater than 21 minutes does not change coding) Name: Lucretia Rodriguez PCP: Naya Arriola PA-C History of Present Illness: The patient is a 54 year old White/ female who calls today for follow- up of HAMILTON, sphincter of Oddi dysfunction, delayed gastric emptying, chronic constipation and GERD. In regards the patient's HAMILTON she recently gained about 20lbs. She relates this to not being as active w/ the pandemic and to stopping smoking, so she is eating more. She reports that her diet has been poor. She has no recent liver enzymes. Her LFTs from over a year prior were normal. Her last right upper quadrant ultrasound was done in 2016 and was consistent with fatty liver. She had [id number] hepatic fibrosis (f2-F3). She denies any alcohol use. She denies any history of jaundice, melena, confusion, or change in abdominal girth. She is currently taking pantoprazole 40 mg q.day with adequate control of her reflux. She has noticed more recently increasing dysphagia to solids, specifically breads and pasta. This has been present for a couple years, but over the last several months is becoming more frequent. She experiences dys phagia to solids at almost every meal. She reports a history of food impactions. At times she drinks liquids to push the food down. She denies any nausea or vomiting. Her last upper endoscopy in 2018was notable for a small amount of food residue in the stomach, but was otherwise unremarkable. There was no evidence of an esophageal stricture. She has been compliant with the gastroparesis diet. She is taking amitriptyline 75 mg q.h.s. with adequate control of her symptoms. She has occasional early satiety, but overall feels like she is doing well. Her bowel pattern is well controlled on Linzess 290 g q.day. If she does not take the medication she develops constipation. She denies any melena or hematochezia. She is due for colorectal cancer screening. ROS: Gen: No weight loss, fevers, chills, or sweats. Normal appetite. Skin: No rashes ENMT: No yellowing of eyes or skin. CVS: No chest pain or palpitations. Respiratory: No cough,No Sputum, No hemoptysis, No SOB, No DENISE GI: See HPI Musculoskeletal : No swelling or pain. Neuro: No confussion or drowsiness. Psych: No depression, anxiety, or SI. Exrem: No edema All other systems negative unless otherwise stated. Medical History: I have reviewed the patient's medical history in detail and updated the computerized patient record. Patient Active Problem List: HTN (hypertension) Mixed hyperlipidemia Hot flashes, menopausal MS (multiple sclerosis) Hyperplastic colonic polyp Major depressive disorder, recurrent episode, moderate Vitamin D deficiency Hypothyroidism, adult Morbid obesity due to excess calories LISSETTE on CPAP Type 2 diabetes mellitus without complication Fatty liver Abdominal pain, RUQ (right upper quadrant) HAMILTON (nonalcoholic steatohepatitis) Gastroesophageal reflux disease without esophagitis Seborrheic keratoses Lentigines Multiple benign nevi of upper and lower extremities, and trunk History of squamous cell carcinoma of skin Family history of melanoma Past Medical History: Diagnosis Date ??? Anemia ??? Anxiety ??? Depressive disorder, not elsewhere classified ??? Diabetes ??? Generalized anxiety disorder ??? H/O heart artery stent 2010 [id number] LAD( ) niry ??? H/O laparoscopic adjustable gastric banding 2009 [...] ??? Cholecystectomy, Laparoscopic 08/10/2013 LAPAROSCOPIC CHOLECYSTECTOMY ??? Coronary Stent Placement was on plavix for 9 month, now on ASA ??? ENDOMETRIAL ABLATION 2005 for heavy menses. ??? ENDOSCOPY, UPPER 12/07/2017 ESOPHAGOGASTRODUODENOSCOPY (EGD) DIAGNOSTIC ??? ERCP 08/12/2013 ERCP ??? Knee Replacement Left ??? SYS LAP BAND 10.0 2009 ??? Tonsillectomy ??? TUBAL LIGATION, LAPAROSCOPIC ??? ULNAR NERVE RELEASE R side Allergies: Allergies Allergen Reactions ??? Latex ??? Sulfa Drugs ??? Adhesive Sensitivity Rash Current meds: Updated in [employer] chart, and personally reviewed by me Social History: Social History Socioeconomic History ??? Marital status: Spouse name: Not on file ??? Number of children: 2 ??? Years of education: Not on file ??? Highest education level: Not on file Occupational History ??? 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 Financial resource strain: Not on file ??? Food insecurity Worry: Not on file Inability: Not on file ??? Transportation needs Medical: Not on file Non-medical: Not on file Tobacco Use ??? Smoking status: Former Smoker Packs/day: 0.50 Years: 30.00 Pack years: 15.00 Types: Cigarettes ??? Smokeless tobacco: Never Used Substance and Sexual Activity ??? Alcohol use: No Alcohol/week: 0.0 standard drinks Comment: Rarely ??? Drug use: No ??? Sexual activity: Yes Partners: Male Lifestyle ??? Physical activity Days per week: Not on file Minutes per session: Not on file ??? Stress: Not on file Relationships ??? Social connections Talks on phone: Not on file Gets together: Not on file Attends caodaism service: Not on file Active member of club or organization: Not on file Attends meetings of clubs or organizations: Not on file Relationship status: Not on file ??? Intimate partner violence Fear of current or ex partner: Not on file Emotionally abused: Not on file Physically abused: Not on file Forced sexual activity: Not on file Other Topics Concern ??? Service Not Asked [...] Social History Narrative ??? Not on file She recently quit smoking. She denies alcohol use. Family Hx: Family Hx of GI Malignancy: None Family Hx of Liver Disease: None Physical Exam: N/a Assessment and Plan Lucretia is a 54 year old female who has completed a telemedicine encounter for follow-up of HAMILTON, chronic GERD, sphincter of oddi dysfunction, gastroparesis and due for colorectal cancer screening 1. [place] Patient has gained over 20 lb. She relates the weight gain to recently quitting smoking and and eating more. She also reports that she is no longer exercising. Had a long discussion on the importanceof increasing aerobic exercise and making dietary modifications with the goal of gradual weight loss. I will update her LFTs. She should continue to have her liver enzymes monitored every 6 months Her last right upper quadrant ultrasound was in 2016 and showed F2 to F3 fibrosis. If her LFTs are abnormal consider updating her right upper quadrant ultrasound. 2. GERD and dysphagia Symptoms of reflux are well controlled on pantoprazole 40 mg q.day. She has been having progressivedysphagia to solids. She experiences dysphagia with almost every meal. She denies any dysphagia to liquids. She has a history of food impactions. She will continue pantoprazole 40 mg q.day. She will be scheduled for upper endoscopy with possible dilation. 3. Sphincter of Oddi dysfunction and gastroparesis Overall she reports that her symptoms are well controlled. She does report some minimal epigastric discomfort and occasional symptoms of early satiety but overall is happy with her symptoms. She will continue amitriptyline 75 mg qhs. She will continue to follow a gastroparesis diet. She had a prior ERCP with biliary sphincterotomy. She will follow-up in 1 year or PRN 4. Constipation Continue linzess 290mcg q day 5. CRC, hx of colon polyps She is due for her surveillance colonoscopy. This will be scheduled at the time of her upper endoscopy. Hold aspirin x5 days The plan was reviewed with the patient and the patient confirmed understanding of the plan and all follow-up steps. All aspects of patient's medical history were reviewed and updated as documented in Epic SARAN Knight documented in this encounter Miscellaneous Notes * Addendum Note - Sanjuana Andrade RN - 04/18/2020 11:52 AM CDTAddended by: SANJUANA ANDRADE A on: 04/18/2020 11:52 AM Modules accepted: Orders documented in this encounter Plan of Treatment Upcoming Encounters Date Type Department Care Team (Late st Contact Info) Description 09/27/2024 2:20 PM OFFICE SUPERVISOR Office Visit [facility] [address] [phone] [place] [address] [facility] [address] [place] [address] 09/28/2024 1:00 PM OFFICE SUPERVISOR Office Visit [facility] [place] [address] [facility] [address] [place] [address] [place] [address] [address] [facility] [address] [place] [address] documented as of this encounter Goals Goal Patient Goal Type Associated Problems Recent Progress Patient-Stated? Author Blood Pressure < 140/90 Blood Pressure 102/69(2022 11:30 AM OFFICE SUPERVISOR) Adilson Barclayy Quit smoking / using tobacco Lifestyle No NewsomeMelinda calvin documented as of this encounter Procedures Procedure Name Priority Date/Time Associated Diagnosis Comments COMPREHENSIVE METABOLIC PANEL Routine 04/18/2020 12:04 PM CDT Constipation, unspecified constipation type Screen for colon cancer Gastroesophageal reflux disease, esophagitis presence not specified Dysphagia, unspecified type Sphincter of Oddi dysfunction Gastroparesis documented in this encounter Results * (ABNORMAL) COMPREHENSIVE METABOLIC PANEL (04/18/2020 12:04 PM CDT) Glucose 152(H) 65 - 99 mg/dL [facility] ACCOUNT BILL BUN 17 6 - 24 mg/dL [facility] ACCOUNT BILL Creatinine 0.96 0.57 - 1.00 mg/dL [facility] ACCOUNT BILL eGFR by MDRD 67 >59 mL/min/1.7 3 [facility] ACCOUNT BILL eGFR by MDRD 77 >59 mL/min/1.7 3 [facility] ACCOUNT BILL BUN/Creatinine Ratio 18 9 - 23 [facility] ACCOUNT BILL Sodium 140 134 - 144 mmol/L [facility] ACCOUNT BILL Potassium 3.7 3.5 - 5.2 mmol/L [facility] ACCOUNT BILL Chloride 102 96 - 106 mmol/L [facility] ACCOUNT BILL CO2 23 20 - 29 mmol/L [facility] ACCOUNT BILL Calcium 9.5 8.7 - 10.2 mg/dL [facility] ACCOUNT BILL Protein Total 6.9 6.0 - 8.5 g/dL [facility] ACCOUNT BILL Albumin 4.6 3.8 - 4.9 g/dL [facility] ACCOUNT BILL Globulin Total 2.3 1.5 - 4.5 g/dL [facility] ACCOUNT BILL Albumin/Globulin Ratio 2.0 1.2 - 2.2 [facility] ACCOUNT BILL Bilirubin Total 0.4 0.0 - 1.2 mg/dL [facility] ACCOUNT BILL Alkaline Phosphatase 67 39 - 117 IU/L [facility] ACCOUNT BILL AST 42(H) 0 - 40 IU/L [facility] ACCOUNT BILL ALT 47(H) 0 - 32 IU/L [facility] ACCOUNT BILL Blood BLOOD SPECIMEN / Unknown 04/18/2020 12:04 PM CDT 04/18/2020 Narrative Resulting Agency Comment Lab Testing performed at: [facility] [address] ??[facility] [id number] Taylor Donohue STIFF LEG DERRICK OPERATOR-CHARTER PILOT LAB - CHEMISTRY ORDERABLES [facility] ACCOUNT [place] [address] [place] [address] documented in this encounter Visit Diagnoses Diagnosis Constipation, unspecified constipation type- Primary Screen for colon cancer Special screening for malignant neoplasms, colon Gastroesophageal reflux disease, esophagitis presence not specified Dysphagia, unspecified type Sphincter of Oddi dysfunction Spasm of sphincter of Oddi Gastroparesis documented in this encounter Care Teams Textile Machinery Instructor Relationship Specialty Start Date End Date Naya Arriola PA-C [address] [place] [phone] PCP - General Physician Credentialing Specialist 01/19/20 Stevenson Almanza MD Neurology 08/16/14 [place] [address] [place] [address] Pulmonary Disease 02/14/16 documented as of this encounter
--- OUTSIDE RECORDS SUMMARY | 2024-09-18 09:31 | XMS_ITS | Encounter Summary ---
Author Organization [facility] Address [address] [facility] [place] [address] Care Team Providers Care Time Lock Expert Name Role Phone Stevenson Almanza MD Unavailable [phone] Dequan Baxter MD Unavailable [phone] Naya Arriola PA-C Primary Care Provider + Reason for Visit * Reason Onset Date Comments MEDICATION REFILL 05/12/2021 MEDICATION REFILL 05/28/2021 Encounter Details Date Type Department Care Team (Late st Contact Info) Description 05/12/2021 Refill [facility] Medical [address] [address] Mychart, Generic Provider MEDICATION REFILL; [...] st Contact Info) Description 09/27/2024 2:20 PM HELP AID Office Visit [facility] Neurosciences [address] [facility] [address] [place] [phone] [place] [address] [facility] [address] [address]O [address] [place] [address] 09/28/2024 1:00 PM HELP AID Office Visit [facility] [place] [address] [facility] Juan [address] [place] [address] [place] [address] [address] [place] [address] documented as of this encounter Goals Goal Patient Goal Type Associated Problems Recent Progress Patient-Stated? Author Blood Pressure < 140/90 Blood Pressure 102/69(2022 11:30 AM HELP AID) No Melinda Newsome Quit smoking / using tobacco Lifestyle No Melinda Newsome documented as of this encounter Visit Diagnoses Not on filedocumented in this encounter Care Teams Time Lock Expert Relationship Specialty Start Date End Date Naya Arriola PA-C [facility] [place] [address] PCP - General Physician Single Stayer Operator 01/19/20 Stevenson Almanza MD Neurology 08/16/14 [place] [address] [facility] [address] [place] [address] Pulmonary Disease 02/14/16 documented as of this encounter
--- OUTSIDE RECORDS SUMMARY | 2024-09-18 09:31 | XMS_ITS | Encounter Summary ---
Author Organization [facility] Address [address] [facility] [place] [address] Care Team Providers Care Credit Risk Analytics Manager Name Role Phone Stevenson Almanza MD Unavailable [phone] Dequan Baxter MD Unavailable [phone] Naya Arriola PA-C Primary Care Provider + Reason for Visit * Reason Comments Refill Request Encounter Details Date Type Department Care Team (Late st Contact Info) Description 10/30/2020 Refill [facility] Group [address] [facility], [address] [place] [address] Taylor Donohue, CHIEF [facility] [address] [facility] [address] [place] [address] Refill Request Social History Tobacco [...] encounter Miscellaneous Notes * Telephone Encounter - Robyn Patterson RN - 10/30/2020 7:51 AM CST Due for f/u ov CCO STRIPPER HAND documented in this encounter Plan of Treatment Upcoming Encounters Date Type Department Care Team (Late st Contact Info) Description 09/27/2024 2:20 PM TOBACCO STRIPPER HAND Office Visit [facility] Neurosciences [address] [facility] [address] [place] [address] [place] [address] [facility] [address] [place] [phone] 09/28/2024 1:00 PM TOBACCO STRIPPER HAND Office Visit [facility] [place] [address] [address], [address] [address] [place] [address] [facility] [address] [address] documented as of this encounter Goals Goal Patient Goal Type Associated Problems Recent Progress Patient-Stated? Author Blood Pressure < 140/90 Blood Pressure 102/69(2022 11:30 AM TOBACCO STRIPPER HAND) No Melinda Newsome Quit smoking / using tobacco Lifestyle No Melinda Newsome documented as of this encounter Visit Diagnoses Not on filedocumented in this encounter Care Teams Credit Risk Analytics Manager Relationship Specialty Start Date End Date Naya Arriola PA-C [address] [place] [address] PCP - General Physician Pharmaceutical Detailer 01/19/20 Stevenson Almanza MD Neurology 08/16/14 [place] [address] [place] [id number] Pulmonary Disease 02/14/16 documented as of this encounter
--- OUTSIDE RECORDS SUMMARY | 2024-09-18 09:31 | XMS_ITS | Encounter Summary ---
Author Organization [facility] Health Address [address] [place] [address] Care Team Providers Care Educational Psychologist Name Role Phone Stevenson Almanza MD Unavailable [phone] Dequan Baxter MD Unavailable [phone] Naya Arriola PA-C Primary Care Provider + Reason for Visit * Reason Comments Multiple Sclerosis Follow-up Encounter Details Date Type Department Care Team (Late st Contact Info) Description 01/19/2020 2:00 PM CDT Video Visit [facility] Neurosciences [address] [facility] [address] [place] [address] [place] [address] [facility] [address] [place] [address] Multiple sclerosis (HCC) Social History Tobacco Use Types Packs/Day Years [...] Sign Reading Time Taken Comments Blood Pressure - - Pulse - - Temperature - - Respiratory Rate - - Oxygen Saturation - - Inhaled Oxygen Concentration - - Weight 113.4 kg (250 lb) 01/19/2020 2:06 PM CDT Height 160 cm (5' 3 ) 01/19/2020 2:06 PM CDT Body Mass Index 44.29 01/19/2020 2:06 PM CDT documented in this encounter Functional [...] Progress Notes * Stevenson Almanza MD - 01/19/2020 2:55 PM CDT Telemedicine follow up visit Patient Verification & Telemedicine Based Consent Today's visit was conducted virtually due to COVID-19 countermeasures. The patient has given verbalconsent to have today's visit conducted by this same means with treatment provided remotely. The patient verbally consents to the billing and collection practices of the provider's medical group. This visit was performed using telemedicine, real-time two way video communication. Patient location home CC: MS IH: Doing well. Yearly follow up. No attacks. Vision and bladder OK. No DMTs. No trouble ambulating. No neuro deficit. Under evaluation for SLE. Apparently + SNOJA after prior negatives. Not using CPAPfor sleep apnea. Was using but stopped with increase in daytime fatigue Outpatient Medications Marked as Taking for the 01/19/20 encounter (Video Visit) with Stevenson Almanza MD Medication Sig Dispense Refill ??? amitriptyline (ELAVIL) 75 MG tablet Take 1 tablet by mouth at bedtime 30 tablet 11 ??? aspirin 325 MG tablet Take 81 mg by mouth once daily ??? atorvastatin (LIPITOR) 10 MG tablet Take 40 tablets by mouth once daily ??? Blood Glucose Monitoring Suppl (ONE TOUCH [employer] SYSTEM) W/DEVICE KIT Use once daily 1 Kit 0 ??? Cholecalciferol (VITAMIN D) 1000 UNIT capsule Take 5,000 Units by mouth once daily ??? cyanocobalamin (VITAMIN B-12) 2500 MCG tablet Take 2,500 mcg by mouth once daily ??? hydrOXYzine hcl (ATARAX) 25 MG tablet Take 75 mg by mouth at bedtime ??? isosorbide mononitrate CR 24hr (IMDUR) 30 MG tablet Take 30 mg by mouth once daily ??? levothyroxine (SYNTHROID) 88 MCG tablet TAKE ONE TABLET BY MOUTH ONCE DAILY BEFORE BREAKFAST 90Tab 3 ??? linaCLOtide (LINZESS) 290 MCG capsule Take 1 capsule by mouth once daily Take on an empty stomach at least 30 minutes prior to first meal of the day. 30 capsule 11 ??? lisinopril (PRINIVIL; ZESTRIL) 40 MG tablet TAKE ONE TABLET BY MOUTH ONCE DAILY (Patient takingdifferently: Take 20 mg by mouth once daily ) 30 Tab 3 ??? meloxicam (MOBIC) 15 MG tablet TAKE ONE TABLET BY MOUTH ONCE DAILY 90 Tab 1 ??? metFORMIN (GLUCOPHAGE) 500 MG tablet TAKE ONE TABLET BY MOUTH ONCE DAILY 90 Tab 1 ??? metoprolol tartrate (LOPRESSOR) 50 MG tablet TAKE ONE TABLET BY MOUTH TWICE A DAY 180 Tab 1 ??? nitroGLYCERIN (NITROSTAT) 0.4 MG tablet Dissolve 0.4 mg under the tongue every 5 minutes as needed for Angina ??? ondansetron (ZOFRAN) 8 MG tablet TAKE ONE TABLET BY MOUTH TWICE A DAY NEEDED FOR NAUSEA 60 tablet 11 ??? ONE TOUCH LANCETS MISC Use once daily 200 Each 1 ??? ONETOUCH ULTRA TEST STRIPS test strip USE ONE STRIP TO TEST BLOOD SUGAR ONCE DAILY 200 Strip 1 ??? pantoprazole EC (PROTONIX) 40 MG tablet Take 1 tablet by mouth once daily 30 tablet 3 ??? traMADol (ULTRAM) 50 MG tablet Take 50 mg by mouth once daily ??? VICTOZA 18 MG/3ML pen Review of Systems Eyes: Negative. Respiratory: Negative for shortness of breath. Genitourinary: Negative. Neurological: Negative for dizziness. Psychiatric/Behavioral: Positive for depression. Exam: Cognitively: Alert and oriented times 3. Attention and concentration, fund of knowledge, recent andremote memory and central language function are intact. Cranial Nerves: II: Full field of vision to confrontation. IIl, lV, Vl:Extraocular movements intact. V: Normal motor and sensory function VII: Normal facial movement and symmetry VIII: Intact hearing to confrontation lX , X: Palate midline and elevates normally. Normal gag Xl: Normal shoulder shrug XII: Tongue midline and protrudes normally without atrophy Neck: Negative Lhermitte's Motor: Zoe Sensory: Intact to touch Cerebellum: intact on finger to nose. Casual gait: normal station and gait MRIs reviewed and stable 10-23 ASSESSMENT: MS stable No DMTs PLAN: Observe Use CPAP Re image next year documented in this encounter Plan of Treatment Upcoming Encounters Date Type Department Care Team (Late st Contact Info) Description 09/27/2024 2:20 PM MACHINE GROUP LEADER Office Visit [facility] Neurosciences [address] [phone] [place] [address] [facility] [address] [place] [phone] 09/28/2024 1:00 PM MACHINE GROUP LEADER Office Visit [facility] Group - [address] DePmoris Barrett, [address] [address] [place] [address] [address] [phone] documented as of this encounter Goals Goal Patient Goal Type Associated Problems Recent Progress Patient-Stated? Author Blood Pressure < 140/90 Blood Pressure 102/69(2022 11:30 AM MACHINE GROUP LEADER) No Melinda Newsome Quit smoking / using tobacco Lifestyle No Melinda Newsome documented as of this encounter Visit Diagnoses Diagnosis Multiple sclerosis (HCC)- Primary Multiple sclerosis documented in this encounter Care Teams Educational Psychologist Relationship Specialty Start Date End Date Naya Arriola PA-C [address] [place] [phone] PCP - General Physician Political Geographer 01/19/20 Stevenson Almanza MD Neurology 08/16/14 [place] [address] [address] Pulmonary Disease 02/14/16 documented as of this encounter
--- OUTSIDE RECORDS SUMMARY | 2024-09-18 09:31 | XMS_ITS | Encounter Summary ---
Author Organization [facility] Health Address [address] [facility] [place] [address] Care Team Providers Care Glost Tile Sorter Name Role Phone Stevenson Almanza MD Unavailable [phone] Dequan Baxter MD Unavailable [phone] Naya Arriola PA-C Primary Care Provider + Encounter Details Date Type Department Care Team (Latest Contact Info) Description 04/17/2020 Travel Social History Tobacco Use Types Packs/Day [...] st Contact Info) Description 09/27/2024 2:20 PM RECONNAISSANCE CREWMEMBER Office Visit [facility] Health Neurosciences [address] [facility] [address] [place] [address] [place] [address] [facility] [address] [place] [address] 09/28/2024 1:00 PM RECONNAISSANCE CREWMEMBER Office Visit [facility] [place] [address] [address] , [facility] [address] [place] [address] [place] [address] [facility] [address] [place] [address] documented as of this encounter Goals Goal Patient Goal Type Associated Problems Recent Progress Patient-Stated? Author Blood Pressure < 140/90 Blood Pressure 102/69(2022 11:30 AM RECONNAISSANCE CREWMEMBER) No Melinda Newsome Quit smoking / using tobacco Lifestyle No Melinda Newsome documented as of this encounter Visit Diagnoses Not on filedocumented in this encounter Care Teams Glost Tile Sorter Relationship Specialty Start Date End Date Naya Arriola PA-C [address] [place] [address] PCP - General Physician Area Relief Pilot 01/19/20 Stevenson Almanza MD Neurology 08/16/14 [place] [address] [facility] [address] [place] [address] Pulmonary Disease 02/14/16 documented as of this encounter
--- OUTSIDE RECORDS SUMMARY | 2024-09-18 09:31 | XMS_ITS | Encounter Summary ---
Author Organization [facility] Health Address [address] [facility] [place] [address] Care Team Providers Care Application Development Intern Name Role Phone Stevenson Almanza MD Unavailable Dequan Baxter MD Unavailable [phone] Anuj Miller Primary Care Provider Unavaila ble Reason for Visit * Reason Comments Multiple Sclerosis Follow-up Encounter Details Date Type Department Care Team (Late st Contact Info) Description 01/17/2019 3:20 PM CDT Office Visit [facility] Neurosciences [address] [facility] [address] [place] [address] [place] [address] [facility] [address] [place] [address] MS (multiple sclerosis) ([facility]) (Primary Dx) Social History Tobacco Use Types [...] Sign Reading Time Taken Comments Blood Pressure 160/86 01/17/2019 3:15 PM CDT Pulse 92 01/17/2019 3:15 PM CDT Temperature - - Respiratory Rate 14 01/17/2019 3:15 PM CDT Oxygen Saturation 94% 01/17/2019 3:15 PM CDT Inhaled Oxygen Concentration - - Weight 112.9 kg (249 lb) 01/17/2019 3:15 PM CDT Height 160 cm (5' 3 ) 01/17/2019 3:15 PM CDT Body Mass Index 44.11 01/17/2019 3:15 PM CDT documented in this encounter Functional [...] this encounter Patient Instructions * Patient Instructions* Yolanda Burch - 01/17/2019 3:45 PM CDT Call physician if symptoms worsen or with any questions. Take Medications as prescribed. For descriptions of a variety of neurological conditions please visit: [email or web address] documented in this encounter Progress Notes * Stevenson Almanza MD - 01/17/2019 3:27 PM CDT CC: MS IH: Yearly OV. No MS symptoms. Feels her hands are weaker but no nocturnal awakening. No Lhermitte's or diplopia. Bladder is OK. No neck pain. No DMTs. Has LISSETTE and not using a CPAP Imaging last year was stable Outpatient Prescriptions Marked as Taking for the 01/17/19 encounter (Office Visit) with Stevenson Almanza MD Medication Sig Dispense Refill ??? ALPRAZolam (XANAX) 0.5 MG tablet Take 1 Tab by mouth 3 times daily as needed ??? amitriptyline (ELAVIL) 75 MG tablet Take 1 tablet by mouth at bedtime 30 tablet 11 ??? aspirin 325 MG tablet Take 325 mg by mouth once daily. ??? atorvastatin (LIPITOR) 10 MG tablet Take 1 Tab by mouth once daily ??? Blood Glucose Monitoring Suppl (ONE TOUCH BASIC SYSTEM) W/DEVICE KIT Use once daily 1 Kit 0 ??? Cholecalciferol (VITAMIN D) 1000 UNIT capsule Take 5,000 Units by mouth once daily ??? citalopram (CELEXA) 40 MG tablet TAKE ONE TABLET BY MOUTH ONCE DAILY 90 Tab 3 ??? cyanocobalamin (VITAMIN B-12) 2500 MCG tablet Take 2,500 mcg by mouth once daily ??? DUREZOL 0.05 % ophthalmic suspension 1 ??? levothyroxine (SYNTHROID) 88 MCG tablet TAKE [...] BY MOUTH ONCE DAILY 30 Tab 3 ??? loratadine (CLARITIN) 10 MG tablet Take 10 mg by mouth once daily. ??? meloxicam (MOBIC) 15 MG tablet TAKE ONE TABLET BY MOUTH ONCE DAILY 90 Tab 1 ??? metFORMIN (GLUCOPHAGE) 500 MG tablet TAKE ONE TABLET BY MOUTH ONCE DAILY 90 Tab 1 ??? metoprolol tartrate (LOPRESSOR) 50 MG tablet TAKE ONE TABLET BY MOUTH TWICE A DAY 180 Tab 1 ??? ondansetron (ZOFRAN) 8 MG tablet TAKE [...] tablet by mouth once daily 30 tablet 11 ??? VICTOZA 18 MG/3ML pen ??? zolpidem (AMBIEN) 5 MG tablet MRI reviewed and clearly MS looking lesions without enhancement.Compared to 2016 and essentially nochange Review of Systems Eyes: Negative. Respiratory: Negative for shortness of breath. Genitourinary: Negative. Neurological: Negative for dizziness. Psychiatric/Behavioral: Positive for depression. Past Medical History: Diagnosis Date ??? Anemia ??? Anxiety ??? Depressive disorder, not elsewhere classified ??? Diabetes ??? Generalized anxiety disorder ??? H/O heart artery stent 2010 [id number] LAD( ) [facility] ??? H/O laparoscopic adjustable gastric banding 2009 ??? Heart attack 2010 ??? HTN (hypertension) ??? Hyperlipemia ??? Hypertension ??? Hypothyroid ??? Migraine ??? Multiple sclerosis 2005 Dr. Almanza ??? LISSETTE (obstructive sleep apnea) ??? S/P tonsillectomy ??? Stomach ulcer ??? Tension headache Exam: BP 160/86 Pulse 92 Resp 14 Ht 1.6 m (5' 3 ) Wt 112.9 kg (249 lb) SpO2 94% BMI 44.11 kg/m2 Alert EOMS OK GERALDO No drift FTN OK Power OK Gait normal Tinel's negative Neck adequate ROM ASSESSMENT: MS stable LISSETTE PLAN: Support No DMTs Yearly OV Need use CPAP Discuss DMTs Over 25 minutes were spent with the patient face to face. Over fifty percent of this time was spentcounseling and coordination of care. All questions were answered to the patients satisfaction. Discuss MS and treatment options and prognosis documented in this encounter Plan of Treatment Upcoming Encounters Date Type Department Care Team (Late st Contact Info) Description 09/27/2024 2:20 PM DAG COATER Office Visit [facility] Neurosciences [address] [address] [place] [address] [facility] [address] [place] [phone] 09/28/2024 1:00 PM DAG COATER Office Visit [facility] [place] [address] [address] [facility] [address] [place] [address] [place] [address] [address] [facility] [address] [place] [address] documented as of this encounter Goals Goal Patient Goal Type Associated Problems Recent Progress Patient-Stated? Author Blood Pressure < 140/90 Blood Pressure 102/69(2022 11:30 AM DAG COATER) No Melinda Newsome Quit smoking / using tobacco Lifestyle No Melinda Newsome documented as of this encounter Visit Diagnoses Diagnosis MS (multiple sclerosis) (HCC)- Primary Multiple sclerosis documented in this encounter Care Teams Application Development Intern Relationship Specialty Start Date End Date Anuj Miller Update Information PCP - General 10/26/18 01/18/20 Stevenson Almanza MD Neurology 08/16/14 [place] [address] [address] Pulmonary Disease 02/14/16 documented as of this encounter
--- OUTSIDE RECORDS SUMMARY | 2024-09-18 09:31 | XMS_ITS | Encounter Summary ---
Author Organization [facility] Address [address] [facility] [place] [address] Care Team Providers Care Mortar Mixer Name Role Phone Stevenson Almanza MD Unavailable [phone] Dequan Baxter MD Unavailable [phone] Naya rAriola PA-C Primary Care Provider + Reason for Visit * Reason Comments Refill Request Encounter Details Date Type Department Care Team (Late st Contact Info) Description 06/09/2021 Refill [facility] Medical Group [address] [facility], [address] [place] [address] Taylor Donohue, OUTSIDE MEDICAL SALES REPRESENTATIVE-[facility] [address] [facility] JUAN ALBERTO [address] [place] [address] Refill Request Social History Tobacco [...] st Contact Info) Description 09/27/2024 2:20 PM LEAD SOFTWARE TEST ENGINEER Office Visit [facility] Neurosciences [address] [facility] [address] [place] [address] [place] [address] [facility] JUAN ALBERTO [address] [place] [address] 09/28/2024 1:00 PM LEAD SOFTWARE TEST ENGINEER Office Visit [facility] [place] [address] [address] , Juan Alberto [address] [place] [address] [place] [address] [address] JUAN ALBERT[address] [place] [address] documented as of this encounter Goals Goal Patient Goal Type Associated Problems Recent Progress Patient-Stated? Author Blood Pressure < 140/90 Blood Pressure 102/69(2022 11:30 AM LEAD SOFTWARE TEST ENGINEER) No Melinda Newsome Quit smoking / using tobacco Lifestyle No Melinda Newsome documented as of this encounter Visit Diagnoses Not on filedocumented in this encounter Care Teams Mortar Mixer Relationship Specialty Start Date End Date Naya Arriola PA-C [address] [place] [address] PCP - General Physician Employee Communications Specialist 01/19/20 Stevenson Almanza MD Neurology 08/16/14 [place] [address] [address] Pulmonary Disease 02/14/16 documented as of this encounter
--- OUTSIDE RECORDS SUMMARY | 2024-09-18 09:31 | XMS_ITS | Encounter Summary ---
Author Organization [facility] Address [address] [facility] [place] [address] Care Team Providers Care Electronic Tech Name Role Phone Stevenson Almanza MD Unavailable [phone] Dequan Baxter MD Unavailable [phone] Anuj Miller Primary Care Provider Unavaila ble Reason for Referral * Radiology Services (Routine) - Closed Specialty Diagnoses / Procedures Referred By Contac t Referred To Contact Diagnoses Gastroesophageal reflux disease without esophagitis Procedures DEXA BONE DENSITY AXIAL SKELETON DEXA BONE [place]ENSITY [place] [address] [place] [phone] Referral ID Status Reason Start Date Expiration Date Visits Re quested Visits Authorized [id number] Closed 12/03/2018 06/01/2019 1 1 Reason for Visit * Radiology Services (Routine) - Closed Specialty Diagnoses / Procedures Referred By Contlouie t Referred To Contact Diagnoses Gastroesophageal reflux disease without esophagitis Procedures DEXA BONE DENSITY AXIAL SKELETON DEXA BONE DENSITY AXIAL SKELETON Mark Rose [place] [address]Estephania NOONAN [address] [place], [place] [address] [address] Referral ID Status Reason Start Date Expiration Date Visits Re quested Visits Authorized [id number] Closed 12/03/2018 06/01/2019 1 1 Encounter Details Date Type Department Care Team (Latest Contact Info) Description 12/21/2018 1:23 PM CDT Hospital Encounter [facility] Health Breast Care [address] [facility] [address] [place] [address] [place] [address] [facility] [address] NOON[address] [place] [phone] Discharge Disposition: Home or Self Care Social [...] Sig Dispensed Refills Start Date End Date Cholecalciferol (VITAMIN D) 1000 UNIT capsule Take 5 (five) capsules by mouth once daily levothyroxine (SYNTHROID) 88 [...] TWICE A DAY 180 Tab 1 12/08/2016 ALPRAZolam (XANAX) 0.5 MG tablet Take 1 Tab by mouth 3 times daily as needed 12/05/2016 01/21/2021 amitriptyline (ELAVIL) 75 MG tablet Take 1 tablet by mouth at bedtime 30 tablet 11 12/03/2018 03/12/2020 aspirin 325 MG tablet Take 81 mg by mouth once daily 04/17/2020 atorvastatin (LIPITOR) 10 MG tablet Take 40 tablets by mouth once daily 05/09/2017 01/21/2021 Blood Glucose Monitoring Suppl (ONE TOUCH BASIC SYSTEM) W/DEVICE KIT Use once daily 1 Kit 0 12/06/2015 01/21/2021 cephalexin (KEFLEX) 500 MG capsuleIndications:SCC (squamous cell carcinoma), shoulder, right Please take four tabs the morning of surgery 4 capsule 11/11/2018 01/17/2019 citalopram (CELEXA) 40 MG tablet TAKE ONE TABLET BY MOUTH ONCE DAILY 90 Tab 3 08/11/2016 04/22/2022 DUREZOL 0.05 % ophthalmic suspension 1 11/02/20182019 ferrous sulfate 325 (65 FE) MG tablet Take 325 mg by mouth once daily 01/21/2021 fluticasone propionate (FLONASE) 50 MCG/ACT nasal spray USE TWO SPRAYS IN EACH NOSTRIL ONCE DAILY 3 Bottle 3 11/10/2016 01/17/2019 linaCLOtide (LINZESS) 290 MCG capsule Take 1 capsule by mouth once daily Take on an empty stomach at least 30 minutes prior to first meal of the day. 30 capsule 11 12/03/2018 03/12/2020 loratadine (CLARITIN) 10 MG tablet Take 10 mg by mouth once daily. 01/19/2020 melatonin 3 MG tablet Take 3 mg by mouth at bedtime 01/17/2019 meloxicam (MOBIC) 15 MG tablet TAKE ONE TABLET BY MOUTH ONCE DAILY 90 Tab 1 06/10/2016 04/22/2022 ondansetron (ZOFRAN) 8 MG tablet TAKE ONE TABLET BY MOUTH TWICE A DAY NEEDED FOR NAUSEA 60 tablet 11 12/15/2017 01/20/2019 ondansetron (ZUPLENZ) 8 MG strip Dissolve 8 mg under the tongue every 6 hours as needed for Nausea/Vomiting 01/17/2019 ONE TOUCH LANCETS MISC Use once daily 200 Each 1 09/02/2016 01/21/2021 ecoVentTOUCH ULTRA TEST STRIPS test strip USE ONE STRIP TO TEST BLOOD SUGAR ONCE DAILY 200 Strip 1 12/15/2016 01/21/2021 pantoprazole EC (PROTONIX) 40 MG tablet Take 1 tablet by mouth once daily 30 tablet 11 12/03/2018 12/16/2019 pantoprazole EC (PROTONIX) 40 MG tablet Take 1 tablet by mouth once daily 12/14/2017 01/17/2019 timolol maleate (TIMOPTIC) 0.5 % ophthalmic solution INSTILL ONE DROP INTO THE AFFECTED EYE TWO TIMES D X 8 WEEKS THEN STOP 1 11/02/2018 01/17/2019 VICTOZA 18 MG/3ML pen 11/08/20182020 VITAMIN E PO Take 400 mg by mouth once daily 01/17/2019 zolpidem (AMBIEN) 5 MG tablet 10/30/2018 01/21/2021 documented as of this encounter Plan of Treatment Upcoming Encounters Date Type Department Care Team (Late st Contact Info) Description 09/27/2024 2:20 PM BRACELET MAKER NOVELTY Office Visit [facility] [address] [facility] [address] [place] [address] [place] [address] [facility] [address] [place] [phone] 09/28/2024 1:00 PM BRACELET MAKER NOVELTY Office Visit [facility] [place] [address] Michele Barrett, [facility] [address] [place] [address] [place] [address] [address] [facility] [address] [place] [address] documented as of this encounter Goals Goal Patient Goal Type Associated Problems Recent Progress Patient-Stated? Author Blood Pressure < 140/90 Blood Pressure 102/69(2022 11:30 AM BRACELET MAKER NOVELTY) No Melinda Newsome Quit smoking / using tobacco Lifestyle No Melinda Newsome documented as of this encounter Procedures Procedure Name Priority Date/Time Associated Diagnosis Comments DEXA BONE DENSITY AXIAL SKELETON Routine 12/21/2018 2:22 PM CDT Gastroesophageal reflux disease without esophagitis documented in this encounter Results * DEXA BONE DENSITY AXIAL SKELETON (12/21/2018 [...] 12/21/2018 at 2:32 PM Procedure Note Sasha Taylro MD - 12/21/2018 BONE MINERAL DENSITY STUDY [...] 2:32 PM Mark Rose MD DEXA ORDERABLES documented in this encounter Visit Diagnoses Diagnosis Gastroesophageal reflux disease without esophagitis Esophageal reflux documented in this encounter Care Teams Electronic Tech Relationship Specialty Start Date End Date Anuj Miller Update Information PCP - General 10/26/18 01/18/20 Stevenson Almanza MD Neurology 08/16/14 [place] [address] [place] [id number] Pulmonary Disease 02/14/16 documented as of this encounter
--- OUTSIDE RECORDS SUMMARY | 2024-09-18 09:31 | XMS_ITS | Encounter Summary ---
Author Organization [facility] Health Address [address] [facility] [place] [address] Care Team Providers Care Seismograph Observer Name Role Phone Stevenson Almanza MD Unavailable [phone] Dequan Baxter MD Unavailable [phone] Anuj Miller Primary Care Provider Unavaila ble Reason for Visit * Reason Comments Establish Care Had MOHs to remove a SCC, doing a FBSC Encounter Details Date Type Department Care Team (Late st Contact Info) Description 01/19/2019 3:10 PM CDT Office Visit [facility] General Dermatology [address] [place] [address] Simón Murrell MD [address] [facility] 3L DEPT OF DERMATOLOGY [place], [place] [id number] Multiple benign nevi of upper and lower extremities, and trunk (Primary Dx); Seborrheic keratoses; Lentigines; Tobacco abuse; History of squamous cell carcinoma of skin; Family history of melanoma Social History Tobacco Use Types Packs/Day Years [...] this encounter Patient Instructions * Patient Instructions* Nadine Nevarez, DO - 01/19/2019 3:37 PM CDT Follow up in 6 months. For skin cancer prevention: We recommend DAILY sun protection and MONTHLY self skin exams. Examine your moles for any changes and use the ABCDE guide of melanoma as instructed below. Alert us of any moles that are: A - asymmetrical B - have irregular borders C- more than one color in a mole D- diameter is larger than end of a pencil eraser E- evolving or changing over time See below for sunscreen recommendations: SUNSCREENS UVA and UVB PROTECTION Sunlight consists of two types of light that can cause or worsen most skin problems: UVA (ultraviolet A) Brown spots Wrinkles Aging Rosacea Less variation with seasons All year round All day strong No rating system available Passes through glass and clouds UVB (ultraviolet B) Skin cancers Sunburn Tanning Strongest in summer Peak hours 10 am to 2pm SPF rates UVB protection, SPF 30 blocks 97% of UVB rays. Sunscreens that block both UVA and UVB light contain: Zinc Oxide (should contain at least 4% zinc oxide) Titanium Dioxide Parsol or Avobenzone (additives improve stability of Avobenzone) There are other UVA blocking ingredients but they are not as complete as these three. Tips/Suggestions SPF of 30 or higher Zinc Oxide or other UVA block such as Helioplex or Anthelios in product Remember there is no safe UV light???so there is no such thing as a safe suntan. Apply sunscreen daily (even in winter and on cloudy days) and reapply every 2 to 4 hours depending on activity. Approximately one ounce (a shot glass) is necessary to adequately cover the entire body. The sunscreens I personally recommend are: - Curtis PRICE - Neutrogena sun block lotion for sensitive skin with SPF 30 - Oil of Olay complete defense daily UV moisturizer with SPF 30 - Cetaphil SPF 30 for normal skin or SPF 50 for dry skin documented in this encounter Progress Notes * Simón Murrell MD - 01/19/2019 3:34 PM CDT Patient seen and examined with Resident. Please see note for further details. I was present for thekey portions of any procedures performed. I confirm history, exam, assessment and plan with the following exceptions/additions: CC: eval lesions HPI: Has hx of: -SCC R top shoulder exc 12/20/18 Has hx brown spots, richmond on back. Most present for years. None seem to be changing or painful. No active trt for brown spots. ROS: No recent relevant illnesses/fevers or other skin complaints except noted otherwise. Relevant past medical history, social history and family history were reviewed, no changes or remarkable points unless otherwise noted. Hx tobacco [place], [place], migraine, DM, thyroid dz FH: melanoma: 2 daughters (dx age 29 & 31) PE: Gen: Alert, oriented, NAD, affect appropriate, pleasant Skin: Exam of the face, eyelids, scalp, lips, neck, bilat upper extr including nails and digits, chest, back, abd, bilat lower extr examined and unremarkable unless otherwise noted below: -well-healed scar in area of prior skin ca as described above -waxy, well-defined, stuck on papules on the extr, trunk -dunaway to brown well defined macules on shoulders -brown macules and papules on trunk and extr, but none with markedly different appearance from the others unless otherwise noted Assessment/Plan Hx NMSC (non-melanoma skin ca) as described above -no signs of recurrence -sun protective behaviors -f/u at least yearly Actinic lentigines/solar lentiginosis, multiple nevi, FH melanoma -benign, educ, reassurance -marker of chronic sun damage and increased risk for skin malignancy, yearly FBSE reasonable -sun protection seborrheic keratosis -benign, educ of nature, causes, course -reassurance not dangerous/cancerous -no treatment indicated unless symptomatic RTC 6 mo Simón Murrell MD * Geri Nadine DO Yuki - 01/19/2019 3:24 PM CDT Chief Complaint Patient presents with ??? Establish Care Had MOHs to remove a SCC, doing a FBSC HPI: Lucretia Rodriguez a 53 year old white female presents for skin exam. Concerns: Lesions on body, ongoing for years, no recent significant changes, including no irritation, no pain, no bleeding. Prev Tx: none Recently had a skin cancer excised on right shoulder; found by her PCP. Personal history of skin cancer: - SCC arising in [place] R top shoulder 10/2018 s/p excision by Dr. Lantigua Fam hx of skin cancer: - both daughters (age 31 and age 29) recently diagnosed with melanoma Smoking 1/2 PPD since 17 years old on/off PE: No acute distress. Mood clear/affect appropriate. Alert and oriented. Mucous membranes moist. Sclera anicteric. Full body skin exam was conducted to include the scalp, face, lips/teeth, lids/conjunctiva, ears, neck, chest, abdomen, back, buttock, right and left hands and forearms, right and left leg and feet and was normal with the following exceptions: - Scattered, dunaway/brown, stuck-on waxy papules and plaques on trunk and extremities - Well circumscribed, dunaway to light brown, irregularly bordered macules scattered in a photo-distributed pattern over bilateral upper extremities and upper trunk - Numerous 2-6 mm, evenly pigmented, dunaway to dark brown macules and pink/skin colored dome shaped papules scattered over trunk and extremities - well healing pink linear scar on R shoulder A/P: 1. Seborrheic keratoses - Benign, reassurance 2. Lentigines - Benign, reassurance 3. Multiple benign nevi of upper and lower extremities, and trunk - Discussed pre-malignant nature and risk of progression to SCC - Treated with cryotherapy today (see separate procedure note) - Counseled on importance of daily sun protection (SPF 30 or higher, broad spectrum sunscreen andsun protective clothing/hats). - Sunscreen recommendations provided in AVS 4. Tobacco abuse - Counseled on cessation, not ready to quit 5. History of SCC - No evidence of recurrence - Counseled on importance of daily sun protection (SPF 30+, broad spectrum sunscreen and sun protective clothing), and monthly self skin exams - Sunscreen recommendations provided in AVS - Q6mos FBSE Discussed and examined patient with attending, Dr. Murrell. RTC 6 months Nadine Nevarez DO Dermatology Resident, PGY-3 01/19/2019 3:27 PM documented in this encounter Plan of Treatment Upcoming Encounters Date Type Department Care Team (Late st Contact Info) Description 09/27/2024 2:20 PM NEUROLOGY HOSPITALIST Office Visit [facility] [address] [phone] [place] [address] [address] 09/28/2024 1:00 PM NEUROLOGY HOSPITALIST Office Visit [facility] [place] [address] Michele Barrett, [address] [address] [place] [address] [address] [address] documented as of this encounter Goals Goal Patient Goal Type Associated Problems Recent Progress Patient-Stated? Author Blood Pressure < 140/90 Blood Pressure 102/69(2022 11:30 AM NEUROLOGY HOSPITALIST) No Melinda Newsome Quit smoking / using tobacco Lifestyle No Melinda Newsome documented as of this encounter Visit Diagnoses Diagnosis Multiple benign nevi of upper and lower extremities, and trunk- Primary Seborrheic keratoses Lentigines Other dyschromia Tobacco abuse Tobacco use disorder History of squamous cell carcinoma of skin Personal history of other malignant neoplasm of skin Family history of melanoma Family history of other specified malignant neoplasm documented in this encounter Care Teams Seismograph Observer Relationship Specialty Start Date End Date Anuj Miller Update Information PCP - General 10/26/18 01/18/20 Stevenson Almanza MD Neurology 08/16/14 [place] [address] [address] Pulmonary Disease 02/14/16 documented as of this encounter
--- OUTSIDE RECORDS SUMMARY | 2024-09-18 09:31 | XMS_ITS | Encounter Summary ---
Author Organization [facility] Address [address] [facility] [place] [address] Care Team Providers Care Information Technology Intern Name Role Phone Stevenson Almanza MD Unavailable [phone] Dequan Baxter MD Unavailable [phone] Naya Arriola PA-C Primary Care Provider + Reason for Visit * Reason Comments Refill Request Encounter Details Date Type Department Care Team (Late st Contact Info) Description 03/09/2020 Refill [facility] [address] [place] [address] [place] [address] [facility] [address] [address] Refill Request Social History Tobacco [...] have Coronavirus / COVID-19? No / Unsure 02/20/2020 12:06 PM CDT documented as of this encounter [...] st Contact Info) Description 09/27/2024 2:20 PM PATHOLOGIST ASSISTANT Office Visit [facility] Neurosciences [address] [facility] [address] [place] [address] [place] [address] [facility] [address] [place] [address] 09/28/2024 1:00 PM PATHOLOGIST ASSISTANT Office Visit [facility] [place] [address] [address] Barrett, [facility] [address] [place] [address] [place] [address] [address] [place] [address] documented as of this encounter Goals Goal Patient Goal Type Associated Problems Recent Progress Patient-Stated? Author Blood Pressure < 140/90 Blood Pressure 102/69(2022 11:30 AM PATHOLOGIST ASSISTANT) No Melinda Newsome Quit smoking / using tobacco Lifestyle No Melinda Newsome documented as of this encounter Visit Diagnoses Not on filedocumented in this encounter Care Teams Information Technology Intern Relationship Specialty Start Date End Date Naya Arriola PA-C [address] [place] [phone] PCP - General Physician Back Shoe Operator 01/19/20 Stevenson Almanza MD Neurology 08/16/14 [place] [address] [address] Pulmonary Disease 02/14/16 documented as of this encounter
--- OUTSIDE RECORDS SUMMARY | 2024-09-18 09:31 | XMS_ITS | Encounter Summary ---
Author Organization [facility] Address [address] [facility] [place] [address] Care Team Providers Care Staple Fiber Washer Name Role Phone Stevenson Almanza MD Unavailable [phone] Dequan Baxter MD Unavailable [phone] Naya Arriola PA-C Primary Care Provider + Reason for Visit * Reason Comments Refill Request Encounter Details Date Type Department Care Team (Late st Contact Info) Description 03/13/2020 Refill [facility] Medical Group [address] [place] [address] [place] [address] [facility] [address] [address] Refill Request Social History [...] encounter Miscellaneous Notes * Telephone Encounter - Mark Rose MD - 03/13/2020 10:02 PM CDT Needs OV for further refills documented in this encounter Plan of Treatment Upcoming Encounters Date Type Department Care Team (Late st Contact Info) Description 09/27/2024 2:20 PM TERADATA DEVELOPER Office Visit [facility] Neurosciences [address] [facility] [address] [place] [address] [place] [address] [facility] [address] [place] [address] 09/28/2024 1:00 PM TERADATA DEVELOPER Office Visit [facility] [place] [address] Michele Barrett, [facility] [address] [place] [phone] [place] [address] [address] [facility] [address] [place] [phone] documented as of this encounter Goals Goal Patient Goal Type Associated Problems Recent Progress Patient-Stated? Author Blood Pressure < 140/90 Blood Pressure 102/69(2022 11:30 AM TERADATA DEVELOPER) No Melinda Newsome Quit smoking / using tobacco Lifestyle No Melinda Newsome documented as of this encounter Visit Diagnoses Not on filedocumented in this encounter Care Teams Staple Fiber Washer Relationship Specialty Start Date End Date Naya Arriola PA-C [address] [place] [address] PCP - General Physician Adult Family Home Program Manager 01/19/20 Stevenson Almanza MD Neurology 08/16/14 Dequan Baxter [place] [address] [place], [place] [id number] Pulmonary Disease 02/14/16 documented as of this encounter
--- OUTSIDE RECORDS SUMMARY | 2024-09-18 09:31 | XMS_ITS | Encounter Summary ---
Author Organization [facility] Address [address] [facility] [place] [address] Care Team Providers Care Consumer Marketing Specialist Name Role Phone Stevenson Almanza MD Unavailable [phone] Dequan Baxter MD Unavailable [phone] Naya Arriola PA-C Primary Care Provider + Reason for Visit * Reason Onset Date Comments Results 10/30/2020 Encounter Details Date Type Department Care Team (Late st Contact Info) Description 10/30/2020 Telephone [facility] [employer] [address] [facility], [facility] [address] [place] [address] [place] [address] [address] Results Social History Tobacco Use [...] Telephone Encounter - Sanjuana Andrade RN - 10/30/2020 1:27 PM CST Results reviewed with patient. Will call to schedule appointment. ITECTURE INSTRUCTOR * Telephone Encounter - Sanjuana Andrade RN - 10/30/2020 1:21 PM CST Left message on voicemail to call for results ITECTURE INSTRUCTOR * Telephone Encounter - Sanjuana Andrade RN - 10/30/2020 1:21 PM CST ----- Message from Mark Rose MD sent at 10/27/2020 5:00 PM ARCHITECTURE INSTRUCTOR ----- LFTs worsening AST 77, ALT 60 Due for OV to f/u on fatty liver, GERD and gastroparesis ITECTURE INSTRUCTOR documented in this encounter Plan of Treatment Upcoming Encounters Date Type Department Care Team (Late st Contact Info) Description 09/27/2024 2:20 PM ARCHITECTURE INSTRUCTOR Office Visit [facility] Health Neurosciences [address] [facility] [address] [place] [address] [place] [address] [facility] [address] [place] [address] 09/28/2024 1:00 PM ARCHITECTURE INSTRUCTOR Office Visit [facility] [place] [address] [facility], [address] [address] [place] [address] [facility] [address] [place] [address] documented as of this encounter Goals Goal Patient Goal Type Associated Problems Recent Progress Patient-Stated? Author Blood Pressure < 140/90 Blood Pressure 102/69(2022 11:30 AM ARCHITECTURE INSTRUCTOR) No Melinda Newsome Quit smoking / using tobacco Lifestyle No Melinda Newsome documented as of this encounter Visit Diagnoses Not on filedocumented in this encounter Care Teams Consumer Marketing Specialist Relationship Specialty Start Date End Date Naya Arriola PA-C [address] [place] [address] PCP - General Physician Operations Processor 01/19/20 Stevenson Almanza MD Neurology 08/16/14 [place] [address] [facility] [address] [place] [address] Pulmonary Disease 02/14/16 documented as of this encounter
--- OUTSIDE RECORDS SUMMARY | 2024-09-18 09:31 | XMS_ITS | Encounter Summary ---
Author Organization [facility] Health Address [address] [facility] [place] [address] Care Team Providers Care Hogshead Stripper Name Role Phone Stevenson Almanza MD Unavailable [phone] Dequan Baxter MD Unavailable [phone] Anuj Miller Primary Care Provider Unavaila ble Reason for Referral * Radiology Services (Routine) - Closed Specialty Diagnoses / Procedures Referred By Contlouie t Referred To Contact Diagnoses Screening for breast cancer Procedures MAMMO SCREENING DIGITAL IMAGE BILAT G0202 Anuj Schwartz MD [address] [place] [address] Referral ID Status Reason Start Date Expiration Date Visits Re quested Visits Authorized [id number] Closed 12/03/2018 06/01/2019 1 1 Reason for Visit * Radiology Services (Routine) - Closed Specialty Diagnoses / Procedures Referred By Ernesto barrios Referred To Contact Diagnoses Screening for breast cancer Procedures MAMMO SCREENING DIGITAL IMAGE BILAT G0202 Anuj Schwartz MD [address] [place] [address] Referral ID Status Reason Start Date Expiration Date Visits Re quested Visits Authorized [id number] Closed 12/03/2018 06/01/2019 1 1 Encounter Details Date Type Department Care Team (Latest Contact Info) Description 12/21/2018 1:24 PM CDT - 12/21/2018 11:59 PM CDT Hospital Encounter [facility] Breast Care [address] [facility] [address] [place] [address] [place] [address] [facility] [address] [place] [phone] Discharge Disposition: Home or Self Care Social [...] once daily 200 Each 1 09/02/2016 01/21/2021 IzzuiTOUCH ULTRA TEST STRIPS test strip USE ONE [...] st Contact Info) Description 09/27/2024 2:20 PM PIPE INSTALLER Office Visit [facility] [address] [facility] [address] [place] [address] [place] [address] [facility] [address] [place] [address] 09/28/2024 1:00 PM PIPE INSTALLER Office Visit [facility] Medical Group - [address] Michele Barrett, [address] [address] [place] [address] [address] [address] documented as of this encounter Goals Goal Patient Goal Type Associated Problems Recent Progress Patient-Stated? Author Blood Pressure < 140/90 Blood Pressure 102/69(2022 11:30 AM PIPE INSTALLER) No Melinda Newsome Quit smoking / using tobacco Lifestyle No Melinda Newsome documented as of this encounter Procedures Procedure Name Priority Date/Time Associated Diagnosis Comments MAMMO BILAT SCREENING Routine 12/21/2018 2:08 PM CDT Screening for breast cancer documented in this encounter Results * MAMMO SCREENING DIGITAL IMAGE BILAT G0202 [...] if suspicious findings are present clinically. An [employer] certified facility. [facility] Breast Centers utilize Flit as a reminder system to notify patients of their next recommended mammograms. Reading Radiologist: Stevenson Medrano MD on 12/21/2018 at 3:35 PM Anuj Schwartz MD MAMMO ORDERABLES documented in this encounter Visit Diagnoses Diagnosis Screening for breast cancer Breast screening, unspecified documented in this encounter Care Teams Hogshead Stripper Relationship Specialty Start Date End Date Anuj Miller Update Information PCP - General 10/26/18 01/18/20 Stevenson Almanza MD Neurology 08/16/14 [place] [address] [place] [address] Pulmonary Disease 02/14/16 documented as of this encounter
--- OUTSIDE RECORDS SUMMARY | 2024-09-18 09:31 | XMS_ITS | Encounter Summary ---
Author Organization [facility] Address [address] [facility] [place] [address] Care Team Providers Care A And P Mechanic Name Role Phone Stevenson Almanza MD Unavailable [phone] Dequan Baxter MD Unavailable [phone] Anuj Miller Primary Care Provider Unavaila ble Reason for Visit * Reason Comments Refill Request Encounter Details Date Type Department Care Team (Late st Contact Info) Description 01/20/2019 Refill [facility] [address] [facility], [facility] [address] [place] [address] [place] [address] [facility] [address] [address] Refill Request Social History Tobacco [...] st Contact Info) Description 09/27/2024 2:20 PM BOARD OF EDUCATION SECRETARY Office Visit [facility] Neurosciences [address] [facility] [address] [place] [phone] [place] [address] [facility] JUAN ALBERTO [address] [place] [address] 09/28/2024 1:00 PM BOARD OF EDUCATION SECRETARY Office Visit [facility] Medical Group - [address] DePmoris Barrett, Juan Alberto [address] [place] [address] [place] [address] [address] JUAN [address]ERT[address] [place] [address] documented as of this encounter Goals Goal Patient Goal Type Associated Problems Recent Progress Patient-Stated? Author Blood Pressure < 140/90 Blood Pressure 102/69(2022 11:30 AM BOARD OF EDUCATION SECRETARY) No Melinda Newsome Quit smoking / using tobacco Lifestyle No Melinda Newsome documented as of this encounter Visit Diagnoses Not on filedocumented in this encounter Care Teams A And P Mechanic Relationship Specialty Start Date End Date Anuj Miller Update Information PCP - General 10/26/18 01/18/20 Stevenson Almanza MD Neurology 08/16/14 [place] [address] [facility] [address] [place] [address] Pulmonary Disease 02/14/16 documented as of this encounter
--- OUTSIDE RECORDS SUMMARY | 2024-09-18 09:31 | XMS_ITS | Encounter Summary ---
Author Organization [facility] Address [address] [facility] [place] [address] Care Team Providers Care Branch Credit Counselor Name Role Phone Stevenson Almanza MD Unavailable [phone] Dequan Baxter MD Unavailable [phone] Naya Arriola PA-C Primary Care Provider + Reason for Visit * Reason Onset Date Comments COVID-19 IMMUNIZATION/INJECTION 12/01/2020 Encounter Details Date Type Department Care Team (Latest Contact Info) Description 12/01/2020 1:10 PM CDT Clinical Support [facility] - COVID Vax [address] [place] [address] Need for vaccination Social History Tobacco Use [...] this encounter Patient Instructions * Patient Instructions* Julia Hein - 12/01/2020 12:51 PM CDT Images from the original note were not included. Vaccine recipients are encouraged to enroll in the [facility] V-SAFE program for post vaccination monitoring. Sign up with your smartphone's browser at [email or web address] or Aim your smartphone's camera at this code. COVID-19 Preparedness: Post-Vaccination Frequently Asked Questions Q. Do I need to continue to wear a mask and other PPE after both vaccine doses? A. Yes. While researchers and product manager medical device learn more about the protection that COVID-19 vaccines provides, it will be important than ever for everyone to continue using all the tools available to us to help stop this pandemic, like covering your mouth and nose with a mask, washing your hands, and staying at least six feet away from others. Here are a few nuñez reasons why it is important to continue with our current mitigation methods: ?? The initial clinical trials of the vaccine were not designed to determine whether vaccinated people could still spread the coronavirus without developing symptoms. Detailed data has not been released yet on whether the vaccines offer what???s known as sterilizing immunity, in which those who arevaccinated can???t contract or pass on the virus ?? The duration of protection from the vaccine against symptomatic disease is not yet known ?? The COVID-19 vaccines are not 100% effective. Effectiveness against symptomatic disease has beendocumented at 94-95% during the clinical trials. That means one out of every 20 people who get thisvaccine could still get a symptomatic infection. ?? Following the COVID-19 vaccination, immunity is not immediate. Q. Will [facility] change its current screening or testing protocols now that we have a vaccine? A. No. We do not anticipate changing any of our screening protocols, COVID testing protocols, or visitor policies in the near term until we have more data about the vaccine. Our infection control andinfectious disease team will continue to re-evaluate our guidelines as more data becomes avaialble. Q. What is the impact of the COVID-19 variants we hear about in the news? A. Viruses constantly change through mutation, and new variants of a virus are expected to occur over time. Multiple variants of the virus that causes COVID-19 have been documented in the [place] and globally during this pandemic. These variants haven't been around long enough to say for certain that the new vaccines are effective against it, but scientists aren't too worried about that -- lab studies suggest the vaccines will be protective against this strain. New variants will continue to appear as the effects of the COVID-19 pandemic continue. As new variants evolve scientists will continue to evaluate vaccine efficacy against the new variants. Given what we know about the coronavirus, it is unlikely that the virus would be able to rapidly change in such a way to escape the immune system. Escape from immunity requires that a virus accumulate a seriesof mutations, each allowing the virus to evade the effectiveness of the body???s defenses. Q. When can we stop wearing masks and social distancing? A.There is not enough information currently available to say if or when CDC or public health will stop recommending that people wear masks and avoid close contact with others to help prevent the spread of the virus. Experts need to understand more about the protection that COVID-19 vaccines providebefore making that decision. Other factors, including how many people get vaccinated and how the virus is spreading in communities, will also affect this decision. documented in this encounter Progress Notes * Julia Hein - 12/01/2020 12:51 PM CDT COVID screening checklist was reviewed with the patient. The Information sheet was given prior to administration. Injection site aseptically cleansed and injection given per Immunization(s) protocol.See Imm/Injections activity for details. documented in this encounter Plan of Treatment Upcoming Encounters Date Type Department Care Team (Late st Contact Info) Description 09/27/2024 2:20 PM HEAD PAPER TESTER Office Visit [facility] [address] [address] [place] [address] [facility] [address] [place] [phone] 09/28/2024 1:00 PM HEAD PAPER TESTER Office Visit [facility] - [address] [address] , [facility] [address] [place] [address] [place] [address] [address] [facility] [address] [place] [address] documented as of this encounter Goals Goal Patient Goal Type Associated Problems Recent Progress Patient-Stated? Author Blood Pressure < 140/90 Blood Pressure 102/69(2022 11:30 AM HEAD PAPER TESTER) No Melinda Newsome Quit smoking / using tobacco Lifestyle No Melinda Newsome documented as of this encounter Visit Diagnoses Diagnosis Need for vaccination- Primary Need for prophylactic vaccination and inoculation against unspecified single disease documented in this encounter Care Teams Branch Credit Counselor Relationship Specialty Start Date End Date Naya Arriola PA-C [address] [place] [phone] PCP - General Physician Restaurant Area Director 01/19/20 Stevenson Almanza MD Neurology 08/16/14 [place] [address] [facility] [address] [place] [address] Pulmonary Disease 02/14/16 documented as of this encounter
--- OUTSIDE RECORDS SUMMARY | 2024-09-18 09:31 | XMS_ITS | Encounter Summary ---
Author Organization [facility] Address [address] [facility] [place] [address] Care Team Providers Care Developer Support Engineer Name Role Phone Stevenson Almanza MD Unavailable [phone] Dequan Baxter MD Unavailable [phone] Naya Arriola PA-C Primary Care Provider + Reason for Visit * Reason Comments Refill Request Encounter Details Date Type Department Care Team (Late st Contact Info) Description 02/15/2022 Refill [facility] [id number] [place] [address] [place] [address] [address] Refill Request Social History Tobacco [...] st Contact Info) Description 09/27/2024 2:20 PM RADAR TECHNICIAN Office Visit [facility] Neurosciences [address] [facility] [address] [place] [phone] [place] [address] [facility] JUAN ALBERTO [address] [place] [address] 09/28/2024 1:00 PM RADAR TECHNICIAN Office Visit [facility] [place] [address] [address] Barrett, Juan Alberto [address] [place] [address] [place] [address] [address] [place] [address] documented as of this encounter Goals Goal Patient Goal Type Associated Problems Recent Progress Patient-Stated? Author Blood Pressure < 140/90 Blood Pressure 102/69(2022 11:30 AM RADAR TECHNICIAN) No Melinda Newsome Quit smoking / using tobacco Lifestyle No Melinda Newsome documented as of this encounter Visit Diagnoses Not on filedocumented in this encounter Care Teams Developer Support Engineer Relationship Specialty Start Date End Date Naya Arriola PA-C [address] [place] [phone] PCP - General Physician Manager Reimbursement 01/19/20 Stevenson Almanza MD Neurology 08/16/14 [place] [address] [address] Pulmonary Disease 02/14/16 documented as of this encounter
--- OUTSIDE RECORDS SUMMARY | 2024-09-18 09:31 | XMS_ITS | Encounter Summary ---
Author Organization [facility] Address [address] [facility] [place] [address] Care Team Providers Care Materials Technician Name Role Phone Stevenson Almanza MD Unavailable [phone] Dequan Baxter MD Unavailable [phone] Naya Arriola PA-C Primary Care Provider + Reason for Visit * Reason Comments Follow-up Encounter Details Date Type Department Care Team (Latest Contact Info) Description 12/14/2020 2:15 PM CDT Office Visit [facility] [employer] [address], [facility] [address] [place] [address] [place] [address] [address] Gastroesophageal reflux disease without esophagitis (Primary Dx); BOONE (nonalcoholic steatohepatitis); Abdominal pain, RUQ (right upper quadrant); Gastroparesis Social History Tobacco Use Types Packs/Day [...] Sign Reading Time Taken Comments Blood Pressure 140/84 12/14/2020 2:37 PM CDT Pulse 96 12/14/2020 2:37 PM CDT Temperature - - Respiratory Rate - - Oxygen Saturation 94% 12/14/2020 2:37 PM CDT Inhaled Oxygen Concentration - - Weight 117.5 kg (259 lb) 12/14/2020 2:37 PM CDT Height - - Body Mass Index 45.88 06/18/2020 12:13 PM CDT documented in this encounter Functional [...] Progress Notes * Mark Rose MD - 12/14/2020 5:16 PM CDT Office Note Follow Up Appointment DEMOGRAPHICS: Patient: Lucretia Rodriguez : 1965 Referring Physician: Naya Arriola PA-C SUBJECTIVE: Lucretia Rodriguez is a most pleasant 55 year old female being seen for Follow-up for BOONE, GERD, sphincter of Ode dysfunction, gastroparesis and chronic constipation. Her reflux is overall better controlled. She is currently taking Protonix 40 mg in the morning. She has occasional breakthrough nocturnal reflux if she takes her pills too late. Her dysphagia has markedly improved since her endoscopy with dilation. Her endoscopy was in June,. Esophageal biopsies were negative for eosinophilia. TREY test was negative for H pylori. She continues to have intermittent nausea 3 or 4 times per week that last approximately 2 hr. At times the symptoms are worse with eating. She denies vomiting.She also underwent colonoscopy in June, that was notable for hyperplastic polyps. She has daily bowel movements with she takes Linzess 290 g q.day. She has gained 16 lb since 2019. Over the last 2 years her liver function tests have been increasing from normal to now an AST of 77 with an ALT of 60. Her bilirubin is normal. She is not currently exercising. She has not consumed alcohol in over 2 years and denies any history of heavy alcohol consumption. PAST HISTORY: Past Medical History: Diagnosis Date ??? Anemia ??? Anxiety ??? Depressive disorder, not elsewhere classified ??? Diabetes ??? Generalized anxiety disorder ??? H/O heart artery stent 2010 [id number] LAD( ) [facility] ??? H/O laparoscopic adjustable [...] NERVE RELEASE R side OUTPATIENT MEDICATIONS: Lucretia Rodriguez has a current medication list which includes the following prescription(s): alprazolam, amitriptyline, aspirin 81, atorvastatin, atorvastatin, one touch basic system, vitamin d, citalopram, cyanocobalamin, dapagliflozin propanediol, diclofenac sodium, ferrous sulfate, hydrochloroth iazide, hydroxyzine hcl, isosorbide mononitrate cr 24hr, levothyroxine, linaclotide, lisinopril, lisinopril, melatonin, meloxicam, metformin, metoprolol tartrate, nitroglycerin, ondansetron, one touch lancets, onetouch ultra test strips, pantoprazole ec, clenpiq, tramadol, victoza, and zolpidem. REVIEW OF SYSTEMS: General ROS: alert oriented [...] symptoms Dermatological ROS: negative PHYSICAL EXAM: BP 140/84 Pulse 96 Wt 117.5 kg (259 lb) SpO2 94% BMI 45.88 kg/m2 Physical Exam: Gen: Alert, oriented, no distress HEENT: Nc/at, perrl/eomi, OP clear Neck: No significant LAD, nonpalpable thyroid Lungs: CTA bilaterally CV: RRR, s1s2, no murmurs heard Abdomen: Soft, mild RUQ tender, non distended, normal bowel sounds, no organomegaly Extremities: No edema LABS: Recent Labs Component Name 10/26/20 1456 [...] 05/27/16 1417 11/12/15 1047 07/31/15 0936 03/28/15 1949 01/23/15 1320 WBC 5.8 8.1 7.7 7.2 8.5 [...] - - IRON 94 - - - ASSESSMENT: Lucretia Rodriguez is a 55 year old female Who is seen in follow-up for BOONE, chronic GERD, sphincter of Oddi dysfunction, gastroparesis and chronic constipation PLAN: 1. BOONE she has gained nearly 20 lb over the last 2 years. In the setting of increased weight gain her liver function tests have been worsening. Her last ultrasound in 2015 demonstrated F2 to F3 fibrosis. We had an extensive conversation today about need to increase aerobic exercise with a goal of gradual weight loss. I also discussed with her making numerous dietary and lifestyle changes to help withweight loss. I will repeat liver function tests in 5 months. If her LFTs are not improving she will also necessitate repeat ultrasound elastography 2. GERD and Dysphagia she will continue Protonix 40 mg q.a.m. dietary lifestyle changes recommended. Encourage to set a goal for weight loss avoid eating within 2 hr of lying flat 3. Chronic constipation continue Linzess 290 g q.day 4. Sphincter of Omar dysfunction and gastroparesis keep fat intake less than 60 g per day increase amitriptyline to 100 mg p.o. q.h.s. to see if this continues to help with right upper quadrant discomfort as well as episodic nausea continue compliance with a gastroparesis diet. 5. Colorectal cancer screening repeat colonoscopy in June 2030 Orders Placed This Encounter ??? amitriptyline (ELAVIL) 100 MG tablet I have discussed the above recommendations and their risks, benefits, and alternatives, with the patient and any family present, and all agreed with the plan. All questions were answered. documented in this encounter Plan of Treatment Upcoming Encounters Date Type Department Care Team (Late st Contact Info) Description 09/27/2024 2:20 PM SHEAR TENDER Office Visit [facility] Neurosciences [address] [facility] [address] [place] [address] [place] [address] [facility] [address] [place] [address] 09/28/2024 1:00 PM SHEAR TENDER Office [place] [facility] [place] [address] [address], [facility] [address] [place] [address] [place] [address] [address] [facility] [address] [place] [address] documented as of this encounter Goals Goal Patient Goal Type Associated Problems Recent Progress Patient-Stated? Author Blood Pressure < 140/90 Blood Pressure 102/69(2022 11:30 AM SHEAR TENDER) No Melinda Newsome Quit smoking / using tobacco Lifestyle No Melinda Newsome documented as of this encounter Visit Diagnoses Diagnosis Gastroesophageal reflux disease without esophagitis- Primary Esophageal reflux BOONE (nonalcoholic steatohepatitis) Other chronic nonalcoholic liver disease Abdominal pain, RUQ (right upper quadrant) Abdominal pain, right upper quadrant Gastroparesis documented in this encounter Care Teams Materials Technician Relationship Specialty Start Date End Date Naya Arriola PA-C [address] [place] [phone] PCP - General Physician First Dyer 01/19/20 Stevenson Almanza MD Neurology 08/16/14 [place] [address] [facility] [address] [place] [address] Pulmonary Disease 02/14/16 documented as of this encounter
--- OUTSIDE RECORDS SUMMARY | 2024-09-18 09:31 | XMS_ITS | Encounter Summary ---
Author Organization [facility] Address [address] [facility] [place] [address] Care Team Providers Care Diecast Machine Operator Name Role Phone Stevenson Almanza MD Unavailable [phone] Dequan Baxter MD Unavailable [phone] Anuj Miller Primary Care Provider Unavaila Naya Haas PA-C Primary Care Provider + Encounter Details Date Type Department Care Team (Late st Contact Info) Description 10/11/2019 Orders Only [facility] [address] [facility], [facility] [[email or web address]] [address] [place] [address] [place] [address] [address] Special screening for malignant neoplasms, colon ; Gastroesophageal reflux disease without esophagitis Social History [...] encounter Miscellaneous Notes * Addendum Note - Winnie Patterson RN - 04/17/2020 3:23 PM CDTAddended by: WINNIE PATTERSON on: 04/17/2020 03:23 PM Modules accepted: Orders documented in this encounter Plan of Treatment Upcoming Encounters Date Type Department Care Team (Late st Contact Info) Description 09/27/2024 2:20 PM SPECIAL EVENT ASSISTANT Office Visit [facility] [address] [address] [place] [address] [facility] [address] [place] [phone] 09/28/2024 1:00 PM SPECIAL EVENT ASSISTANT Office Visit [facility] [place] [address] Mic[address] Barrett, [facility] [address] [place] [address] [place] [address] [address] [facility] [address] [place] [address] documented as of this encounter Goals Goal Patient Goal Type Associated Problems Recent Progress Patient-Stated? Author Blood Pressure < 140/90 Blood Pressure 102/69(2022 11:30 AM SPECIAL EVENT ASSISTANT) No Melinda Newsome Quit smoking / using tobacco Lifestyle No Melinda Newsome documented as of this encounter Visit Diagnoses Diagnosis Special screening for malignant neoplasms, colon- Primary Gastroesophageal reflux disease without esophagitis Esophageal reflux documented in this encounter Care Teams Diecast Machine Operator Relationship Specialty Start Date End Date Anuj Miller Update Information PCP - General 10/26/18 01/18/20 Naya Arriola PA-C [address] [place] [phone] PCP - General Physician Transformer Tester 01/19/20 Stevenson Almanza MD Neurology 08/16/14 [place] [address] [address] Pulmonary Disease 02/14/16 documented as of this encounter
--- OUTSIDE RECORDS SUMMARY | 2024-09-18 09:31 | XMS_ITS | Encounter Summary ---
Author Organization [facility] Address [address] [facility] [place] [address] Care Team Providers Care Confectionery Laboratory Manager Name Role Phone Stevenson Almanza MD Unavailable [phone] Dequan Baxter MD Unavailable [phone] Naya Arriola PA-C Primary Care Provider + Encounter Details Date Type Department Care Team (Latest Contact Info) Description 02/20/2020 Travel Social History Tobacco Use Types Packs/Day [...] st Contact Info) Description 09/27/2024 2:20 PM RUG SETTER AXMINSTER Office Visit [facility] Health Neurosciences [address] [facility] [address] [place] [address] [place] [address] [facility] [address] [address] [place] [address] 09/28/2024 1:00 PM RUG SETTER AXMINSTER Office Visit [facility] [place] [address] [address] , [facility] [address] [place] [address] [place] [address] [address] [facility] [address] [place] [address] documented as of this encounter Goals Goal Patient Goal Type Associated Problems Recent Progress Patient-Stated? Author Blood Pressure < 140/90 Blood Pressure 102/69(2022 11:30 AM RUG SETTER AXMINSTER) No Melinda Newsome Quit smoking / using tobacco Lifestyle No Melinda Newsome documented as of this encounter Visit Diagnoses Not on filedocumented in this encounter Care Teams Confectionery Laboratory Manager Relationship Specialty Start Date End Date Naya Arriola PA-C [address] [place] [address] PCP - General Physician Utility Engineer 01/19/20 Stevenson Almanza MD Neurology 08/16/14 [place] [address] [facility] [address] [place] [address] Pulmonary Disease 02/14/16 documented as of this encounter
--- OUTSIDE RECORDS SUMMARY | 2024-09-18 09:31 | XMS_ITS | Encounter Summary ---
Author Organization [facility] Address [address] [facility] [place] [address] Care Team Providers Care Medical Laboratory Technicians Name Role Phone Stevenson Almanza MD Unavailable [phone] Dequan Baxter MD Unavailable [phone] Naya Arriola PA-C Primary Care Provider + Encounter Details Date Type Department Care Team (Late st Contact Info) Description 12/22/2020 12:45 PM CDT Immunization [facility] - COVID Vax [address] [place] [address] Need for vaccination Social History Tobacco Use [...] st Contact Info) Description 09/27/2024 2:[address] TEAM MEMBER Office Visit [facility] Health Neurosciences [address] [facility] [address] [place] [phone] [place] [address] [facility] [address] JUAN ALBERTO [address] [place] [address] 09/28/2024 1:[address] TEAM MEMBER Office Visit [facility] [place] [address] DePaul , Juan Alberto [address] [place] [address] [place] [address] [address] JU[address] [place] [address] documented as of this encounter Goals Goal Patient Goal Type Associated Problems Recent Progress Patient-Stated? Author Blood Pressure < 140/90 Blood Pressure 102/69(2022 11:[address] TEAM MEMBER) No Melinda Newsome Quit smoking / using tobacco Lifestyle No Melinda Newsome documented as of this encounter Visit Diagnoses Diagnosis Need for vaccination- Primary Need for prophylactic vaccination and inoculation against unspecified single disease documented in this encounter Care Teams Medical Laboratory Technicians Relationship Specialty Start Date End Date Naya Arriola PA-C [address] [place] [phone] PCP - General Physician Composite Layup Worker 01/19/20 Stevenson Almanza MD Neurology 08/16/14 [place] [address] [facility] [address] [place] [address] Pulmonary Disease 02/14/16 documented as of this encounter
--- OUTSIDE RECORDS SUMMARY | 2024-09-18 09:31 | XMS_ITS | Encounter Summary ---
Author Organization [facility] Address [address] [place] [address] Care Team Providers Care Designer/Writer Name Role Phone Stevenson Almanza MD Unavailable [phone] Dequan Baxter MD Unavailable [phone] Naya Arriola PA-C Primary Care Provider + Reason for Visit * Auth/Cert Specialty Diagnoses / Procedures Referred By Ernesto barrios Referred To Contact Procedures ESOPHAGOGASTRODUODENOSCOPY (EGD) DIAGNOSTIC COLONOSCOPY SCREEN Referral ID Status Reason Start Date Expiration Date Visits Re quested Visits Authorized [id number] 1 1 Encounter Details Date Type Department Care Team (Latest Contact Info) Description 06/18/2020 1:00 PM CDT - 06/18/2020 1:45 PM CDT Surgery [facility] - Endoscopy Services [address] [place] [address] [place] [address] [facility] [address]ON[address] [place] [address] ESOPHAGOGASTRODUODENOSCOPY (EGD) DIAGNOSTIC WITH BIOPSY AND OR POLYPECTOMY Surgery Details Date/Time Status Location OR Service Patient Class Case Class Case Type Trauma Case? 06/18/2020 1:00 PM Posted [facility] ENDO ENDO 02 Gastroenterology Surgery Day Care Elective > 5 days Panel 1 Procedure LRB Anes Op Region Wound Class Comments ESOPHAGOGASTRODUODENOSCOPY ( EGD) DIAGNOSTIC WITH BIOPSY AND OR POLYPECTOMY MAC Clean Contaminated COLONOSCOPY WITH BIOPSY AND OR POLYPECTOMY MAC Clean Contaminated Surgeon Surgeon Role Service Panel Mark Rose MD Primary Gastroenterology 1 documented in this encounter Social History Tobacco Use Types Packs/Day Years [...] Sign Reading Time Taken Comments Blood Pressure 141/95 06/18/2020 1:41 PM CDT Pulse 75 06/18/2020 1:41 PM CDT Temperature 36.6 ??C (97.9 ??F) 06/18/2020 1:22 PM CD T Respiratory Rate 18 06/18/2020 1:41 PM CDT Oxygen Saturation 95% 06/18/2020 1:41 PM CDT Inhaled Oxygen Concentration - - Weight 120.2 kg (265 lb) 06/18/2020 12:13 PM CDT Height 160 cm (5' 3 ) 06/18/2020 12:13 PM CDT Body Mass Index 46.94 06/18/2020 12:13 PM CDT documented in this [...] daily 05/09/2017 01/21/2021 Blood Glucose Monitoring Suppl ([employer] SYSTEM) W/DEVICE KIT Use once daily 1 [...] once daily 200 Each 1 09/02/2016 01/21/2021 ONETOUCH ULTRA TEST STRIPS test strip USE [...] 10/30/2018 01/21/2021 documented as of this encounter H&P Notes * Mark Rose MD - 06/18/2020 12:30 PM CDT ENDOSCOPY PRE-PROCEDURE MEDICAL HISTORY & PHYSICAL Lucretia Rodriguez 54 year old female BP 146/78 Pulse 77 Temp 98.3 ??F (36.8 ??C) (Oral) Resp 18 Ht 1.6 m (5' 3 ) Wt 120.2 kg (265 lb) SpO2 92% BMI 46.94 kg/m2 History: Past Medical History: Diagnosis Date ??? Anemia ??? Anxiety ??? Depressive disorder, not elsewhere classified ??? Diabetes ??? Generalized anxiety disorder ??? H/O heart artery stent 2010 [id number] LAD( ) [facility] ??? H/O laparoscopic adjustable gastric banding 2009 ??? Heart attack 2010 ??? HTN (hypertension) ??? Hyperlipemia ??? Hypertension ??? Hypothyroid ??? Migraine ??? Multiple sclerosis 2005 Dr. Almanza ??? LISSETTE (obstructive sleep apnea) ??? S/P tonsillectomy ??? Stomach ulcer ??? Tension headache Allergies Allergen Reactions ??? Latex ??? Sulfa Drugs ??? Adhesive Sensitivity Rash Medications Prior to Admission Medication Sig Dispense Refill ??? ALPRAZolam (XANAX) 0.5 MG tablet Take 1 Tab by mouth 3 times daily as needed ??? amitriptyline (ELAVIL) 75 MG tablet Take 1 tablet by mouth at bedtime 30 tablet 11 ??? ASPIRIN 81 81 MG tablet once daily ??? atorvastatin (LIPITOR) 10 MG tablet Take 40 tablets by mouth once daily ??? Blood Glucose Monitoring Suppl (ONE TOUCH BASIC SYSTEM) W/DEVICE KIT Use once daily 1 Kit 0 ??? Cholecalciferol (VITAMIN D) 1000 UNIT capsule Take 5,000 Units by mouth once daily ??? citalopram (CELEXA) 40 MG tablet TAKE ONE TABLET BY MOUTH ONCE DAILY (Patient not taking: Reported on 01/19/2020) 90 Tab 3 ??? cyanocobalamin (VITAMIN B-12) 2500 MCG tablet Take 2,500 mcg by mouth once daily ??? ferrous sulfate 325 (65 FE) MG tablet Take 325 mg by mouth once daily ??? hydrOXYzine hcl (ATARAX) 25 MG tablet Take 75 mg by mouth at bedtime ??? isosorbide mononitrate CR 24hr (IMDUR) 30 MG tablet Take 30 mg by mouth once daily ??? levothyroxine (SYNTHROID) 88 MCG tablet TAKE ONE TABLET BY MOUTH ONCE DAILY BEFORE BREAKFAST 90Tab 3 ??? linaCLOtide (LINZESS) 290 MCG capsule TAKE ONE CAPSULE BY MOUTH ONCE DAILY ON AN EMPTY STOMACH AT LEAST 30 MINUTES PRIOR TO FIRST MEAL OF THE DAY 30 capsule 11 ??? lisinopril (PRINIVIL; ZESTRIL) [...] Angina ??? ondansetron (ZOFRAN) 8 MG tablet Take 1 tablet by mouth every 8 hours as needed for Nausea/Vomiting 60 tablet 5 ??? ONE TOUCH LANCETS MISC Use once daily 200 Each 1 ??? ONETOUCH ULTRA TEST STRIPS test strip USE ONE STRIP TO TEST BLOOD SUGAR ONCE DAILY 200 Strip 1 ??? pantoprazole EC (PROTONIX) 40 MG tablet Take 1 tablet by mouth once daily 30 tablet 3 ??? Sod Picosulfate-Mag Ox-Cit Acd (CLENPIQ) 10-3.5-12 MG-GM -GM/160ML SOLN Take 1 kit by mouth as directed (Patient not taking: Reported on 04/17/2020) 320 mL 0 ??? traMADol (ULTRAM) 50 MG tablet Take 50 mg by mouth once daily ??? VICTOZA 18 MG/3ML pen ??? zolpidem (AMBIEN) 5 MG tablet Current Facility-Administered Medications Medication Dose Route Frequency Provider Last Rate Last Admin ??? 0.9% NaCl infusion Intravenous Continuous Mark Rose MD 20 mL/hr at 06/18/20 1226 New Bag at 06/18/20 1226 ??? 0.9% NaCl injection 3 mL 3 mL Intracatheter pre-Procedure multiple Mark Rose MD Physicial Exam: Physical exam is normal ASA Evaluation and Anesthesia Plan: Anesthesia administered per Anesthesia Department Indication(s) for Procedure: Dysphagia, GERD, Hx colon polyps Procedure Planned: Colonoscopy and EGD Mark Rose MD documented in this encounter Plan of Treatment Upcoming Encounters Date Type Department Care Team (Late st Contact Info) Description 09/27/2024 2:20 PM REINFORCING IRON AND REBAR WORKERS Office Visit [facility] Neurosciences [address] [facility] [address] [place] [address] [place] [address] [facility] [address] [place] [address] 09/28/2024 1:00 PM REINFORCING [employer] AND REBAR WORKERS Office Visit [facility] [place] [address] [facility] [address] [place] [address] [place] [address] [address] [facility] [address] [place] [address] (work) documented as of this encounter Goals Goal Patient Goal Type Associated Problems Recent Progress Patient-Stated? Author Blood Pressure < 140/90 Blood Pressure 102/69(2022 11:30 AM REINFORCING IRON AND REBAR WORKERS) No Melinda Newsome Quit smoking / using tobacco Lifestyle No Melinda Newsome documented as of this encounter Procedures Procedure Name Priority Date/Time Associated Diagnosis Comments COLONOSCOPY SCREEN 06/18/2020 1: 00 PM CDT DC ED EGD FLEX TRANSORAL DX 06/18/2020 1:00 PM CDT ENDOSCOPY, COLON, SCREENING Routine 06/18/2020 12:49 PM CDT HELICOBACTER PYLORI UREASE (STL) STAT 06/18/2020 12:44 PM CDT Diagnosis unknown PATHOLOGY TISSUE EXAM (STL) Routine 06/18/2020 12:44 PM CDT Diagnosis unknown EGD Routine 06/18/2020 12:36 PM CDT documented in this encounter Results * ENDOSCOPY, COLON, SCREENING (06/18/2020 12:49 PM [...] the physician, the ? nurse and the physical therapy aide in the procedure room. Mental ? Status [...] Procedure Code(s): ? --- Professional --- ? 09358, Colonoscopy, flexible; with removal of tumor(s), polyp(s), or ? other lesion(s) by snare technique ? 38795, 59, Colonoscopy, flexible; with biopsy, single or multiple ? --- Technical --- ? 79226, Colonoscopy, flexible; with removal of tumor(s), polyp(s), or ? other lesion(s) by snare technique ? 74739, 59, Colonoscopy, flexible; with biopsy, single or [...] ? K64.8, Other hemorrhoids CPT copyright 2017 [employer]. All rights reserved. The codes documented in this report are preliminary and upon digital media coordinator review may be revised to meet current compliance requirements. Dr. Mark Rose MD Mark Rose MD 06/18/2020 1:20:39 PM This report has been signed electronically. Number of Addenda: 0 Note Initiated On: 06/18/2020 12:49 PM [facility] 06/18/2020 12:4 9 PM CDT Mark Rose MD GI PROCEDURE ORDERA [facility] [place] [address] * HELICOBACTER PYLORI UREASE (STL) (06/18/2020 12:44 PM CDT) Helicobacter pylori Urease Initial Negative Negative 06/19/2020 4:41 PM CDT [facility] Helicobacter pylori Urease Final Negative Negative 06/19/2020 4:41 PM CDT [facility] Comment:This is an appended report. These results have been appended to a previously preliminary verified report. Microbiology GASTRIC ANTRAL BIOPSY SPECIMEN / Unknown 06/18/2020 12:44 PM CDT 06/18/2020 4:07 PM CDT Mark Rose MD LAB - MICROBIOLOGY ORDERABLES [facility] [address] [place] [address] * PATHOLOGY TISSUE EXAM (STL) (06/18/2020 12:44 PM CDT) Case Report Surgical Pathology Report ? Case: [id number] ? Authorizing Provider: ??Mark Rose MD ? Collected: ? 06/18/2020 12:44 PM ? Ordering Location: ? [facility] ?Received: ?06/18/2020 02:35 PM ? Pathologist: ? Rachael Cain MD ? Specimens: ?? A) - Esophageal Biopsy ? B) - Polyp Colon ? 06/20/2020 9:54 AM CDT [facility] Final Diagnosis A. Esophagus, biopsy: -- No pathologic diagnosis B. Colon polyps, biopsy: -- Hyperplastic polyp 06/20/2020 9:54 AM T [facility] Clinical History Dysphagia, Follow-up of gastro-esophageal reflux disease, follow-up of gastroparesis Screening colonoscopy, high risk colon cancer surveillance: Personal history of colon polyps. 06/20/2020 9:54 AM CDT [facility] Gross Description The specimens are received [...] in cassette B1. 06/20/2020 9:54 AM CDT [facility] Microscopic Description A. Sections reveal fragments of esophageal squamous mucosa with no significant pathologic diagnoses. No significant inflammation is seen. A PAS and Alcian blue special stain is negative for goblet cells. Controls are appropriate. B. Sections reveal fragments of colonic mucosa with benign hyperplastic polyp. 06/20/2020 9:54 AM T [facility] Disclaimer All histochemical and/or immunohistochemical results are interpreted with controls that demonstrate appropriate staining reactions before reporting results. Note on use of immunocytochemistry reagents: This test was developed and its performance characteristic determined by [facility], Department of Laboratory Medicine. It has [...] interpreted with caution. 06/20/2020 9:54 AM CDT [facility] Embedded Images 06/20/2020 9:54 AM CDT [facility] Pathology/Cytology ESOPHAGEAL BIOPSY SPECIMEN / Unknown 06/18/2020 12:44 PM CDT 06/18/2020 2:35 PM CDT Miscellaneous samples (specimen) POLYP OF COLON / Unknown 06/18/2020 1:03 PM CDT 06/18/2020 2:35 PM CDT Mark Rose MD LAB - PATHOLOGY/CYT OLOGY ORDERABLES [facility] [address] [place] [address] * EGD (06/18/2020 12:36 PM [...] the physician, the ? nurse and the physical therapy aide in the procedure room. Mental ? Status [...] Procedure Code(s): ? --- Professional --- ? 48741, Esophagogastroduode noscopy, flexible, transoral; with biopsy, ? single or multiple ? 07670, Dilation of esophagus, by unguided sound or bougie, single or ? multiple passes ? --- Technical --- ? 45212, Esophagogastroduode noscopy, flexible, transoral; with biopsy, ? single or multiple ? 50379, Dilation of esophagus, by unguided sound or [...] esophagitis ? K31.84, Gastroparesis CPT copyright 2017 [employer]. All rights reserved. The codes documented in this report are preliminary and upon digital media coordinator review may be revised to meet current compliance requirements. Dr. Mark Rose MD ____ Mark Rose MD 06/18/2020 12:48:50 PM This report has been signed electronically. Number of Addenda: 0 Note Initiated On: 06/18/2020 12:36 PM [facility] 06/18/2020 12:3 6 PM CDT Mark Rose MD GI PROCEDURE ORDERA [facility] [place] [address] documented in this encounter Visit Diagnoses Not on filedocumented in this encounter Administered Medications Inactive Administered Medications - up to 3 most recent administrations Medication Order MAR Action Action Date Dose Rate Site 0.9% NaCl infusion at 20 mL/hr, Intravenous, CONTINUOUS, Starting on Thu06/18/20 at 1230, Until Thu06/18/20 at 1527, Pre-procedure (GI) $ New Bag/Syringe 06/18/2020 12:26 PM CDT 20 mL/hr 0.9% NaCl injection 3 mL 3 mL, Intracatheter, PRE-PROCEDURE MULTIPLE, Starting on 06/18/20 at 1228, Until 06/18/20 at 1527, For Saline Lock flushes if one is inserted for Bronchoscopy/Endoscopy procedure., Pre-procedure (GI) documented in this encounter Active and Recently Administered Medications Times are shown in CDT. Scheduled Medication Order 06/16/2020 06/17/2020 06/18/2020 0.9% NaCl injection 3 mL 3 mL, Intracatheter, PRE-PROCEDURE MULTIPLE, Starting on Thu06/18/20 at 1228, Until 06/18/20 at 1527, For Saline Lock flushes if one is inserted for Bronchoscopy/Endoscopy procedure., Pre-procedure (GI) Continuous Medication Order 06/16/2020 06/17/2020 06/18/2020 0.9% NaCl infusion at 20 mL/hr, Intravenous, CONTINUOUS, Starting on Thu06/18/20 at 1230, Until 06/18/20 at 1527, Pre-procedure (GI) 1226 ($ New Bag/Syri nge - Provider: Melinda Varghese RN)1315 (Anesthesia Volume Adjustment - Provider: Rukhsana Chowdhury APRN-ASSOCIATE DIRECTOR FINANCE) documented in this encounter Care Teams Designer/Writer Relationship Specialty Start Date End Date Naya Arriola PA-C [facility] [place] [address] PCP - General Physician Band Director 01/19/20 Stevenson Almanza MD Neurology 08/16/14 [place] [address] [address] Pulmonary Disease 02/14/16 documented as of this encounter
--- OUTSIDE RECORDS SUMMARY | 2024-09-18 09:31 | XMS_ITS | Encounter Summary ---
Author Organization [facility] Address [address] [facility] [place] [address] Care Team Providers Care Manual Tester Name Role Phone Stevenson Almanza MD Unavailable [phone] Dequan Baxter MD Unavailable [phone] Naya Arriola PA-C Primary Care Provider + Encounter Details Date Type Department Care Team (Late st Contact Info) Description 10/24/2020 Orders Only [facility] [address] [facility], [facility] [address] [place] [address] [place] [address] [facility] [address] [address] Abnormal liver function tests Social History Tobacco Use Types Packs/Day Years [...] st Contact Info) Description 09/27/2024 2:20 PM SPLICER OPERATOR Office Visit [facility] Neurosciences [address] [facility] [address] [place] [phone] [place] [address] [facility] [address] [place] [address] 09/28/2024 1:00 PM SPLICER OPERATOR Office Visit [facility] [place] [address] [address], [facility] [address] [place] [address] [place] [address] [address] [facility] [address] [place] [address] documented as of this encounter Goals Goal Patient Goal Type Associated Problems Recent Progress Patient-Stated? Author Blood Pressure < 140/90 Blood Pressure 102/69(2022 11:30 AM SPLICER OPERATOR) No Melinda Newsome Quit smoking / using tobacco Lifestyle No Melinda Newsome documented as of this encounter Procedures Procedure Name Priority Date/Time Associated Diagnosis Comments COMPREHENSIVE METABOLIC PANEL Routine 10/26/2020 2:56 PM SPLICER OPERATOR Abnormal liver function tests documented in this encounter Results * (ABNORMAL) COMPREHENSIVE METABOLIC PANEL (10/26/2020 2:56 PM SPLICER OPERATOR) Glucose 89 65 - 99 mg/dL [facility] INSURANCE BILL BUN 12 6 - 24 mg/dL [facility]URANCE BILL Creatinine 1.02(H) 0.57 - 1.00 mg/dL [facility] INSURANCE BILL eGFR by MDRD 62 >59 mL/min/1.7 3 [facility] INSURANCE BILL eGFR by MDRD 71 >59 mL/min/1.7 3 [facility] INSURANCE BILL BUN/Creatinine Ratio 12 9 - 23 [facility] INSURANCE BILL Sodium 140 134 - 144 mmol/L [facility] INSURANCE BILL Potassium 3.9 3.5 - 5.2 mmol/L [facility] INSURANCE BILL Chloride 97 96 - 106 mmol/L [facility] INSURANCE BILL CO2 24 20 - 29 mmol/L [facility] INSURANCE BILL Calcium 9.8 8.7 - 10.2 mg/dL [facility] INSURANCE BILL Protein Total 7.7 6.0 - 8.5 g/dL [facility] INSURANCE BILL Albumin 4.8 3.8 - 4.9 g/dL [facility] INSURANCE BILL Globulin Total 2.9 1.5 - 4.5 g/dL [facility] INSURANCE BILL Albumin/Globulin Ratio 1.7 1.2 - 2.2 [facility] INSURANCE BILL Bilirubin Total 0.6 0.0 - 1.2 mg/dL [facility] INSURANCE BILL Alkaline Phosphatase 84 39 - 117 IU/L [facility] INSURANCE BILL AST 77(H) 0 - 40 IU/L [facility] INSURANCE BILL ALT 60(H) 0 - 32 IU/L [facility] INSURANCE BILL Blood BLOOD SPECIMEN / Unknown 10/26/2020 2:56 PM SPLICER OPERATOR 10/26/2020 Narrative Resulting Agency Comment Lab Testing performed at: [facility] [place] [id number] [facility] ??[facility] [id number] Mark Rose MD LAB - CHEMISTRY ORD ERABLES [facility] INSURANCE BILL [address] [place] [address] documented in this encounter Visit Diagnoses Diagnosis Abnormal liver function tests- Primary Other abnormal blood chemistry documented in this encounter Care Teams Manual Tester Relationship Specialty Start Date End Date Naya Arriola PA-C [address] [place] [phone] PCP - General Physician Supervisor [employer] 01/19/20 Stevenson Almanza MD Neurology 08/16/14 [place] [address] [id number] Pulmonary Disease 02/14/16 documented as of this encounter
--- OUTSIDE RECORDS SUMMARY | 2024-09-18 09:31 | XMS_ITS | Encounter Summary ---
Author Organization [facility] Health Address [address] [facility] [place] [address] Care Team Providers Care Store Manager Name Role Phone Stevenson Almanza MD Unavailable [phone] Dequan Baxter MD Unavailable [phone] Naya Arriola PA-C Primary Care Provider + Reason for Visit * Radiology Services (Routine) - Closed Specialty Diagnoses / Procedures Referred By Ernesto barrios Referred To Contact MRI Diagnoses Multiple sclerosis (HCC) Procedures MRI [place] [address] [address] Referral ID Status Reason Start Date Expiration Date Visits Re quested Visits Authorized [id number] Closed 01/23/2021 03/09/2021 1 1 Encounter Details Date Type Department Care Team (Latest Contact Info) Description 01/31/2021 5:39 PM CDT - 01/31/2021 11:59 PM CDT Hospital Encounter [facility] Health [place] [address] [place] [address] [place] [address] [address] Discharge Disposition: Home or Self Care Social [...] 81 81 MG tablet once daily 02/11/2020 atorvastatin (LIPITOR) 40 MG tablet Take 1 (one) tablet by mouth once daily 11/20/2020 Cholecalciferol (VITAMIN D) 1000 UNIT capsule Take [...] MOUTH ONCE DAILY 30 Tab 3 10/27/2016 melatonin 5 MG tablet Take 1 (one) tablet by mouth at bedtime 11/20/2020 metFORMIN (GLUCOPHAGE) 500 MG tablet TAKE ONE [...] 1 (one) tablet by mouth once daily amitriptyline (ELAVIL) 100 MG tablet Take 1 (one) tablet by mouth at bedtime 90 tablet 4 12/14/2020 03/08/2022 citalopram (CELEXA) 40 MG tablet TAKE ONE TABLET BY MOUTH ONCE DAILY 90 Tab 3 08/11/2016 04/22/2022 cyanocobalamin (VITAMIN B-12) 2500 MCG tablet Take 2,500 mcg by mouth once daily 04/22/2022 dapagliflozin propanediol (FARXIGA) 10 MG tablet 11/22/2020 04/22/2022 diclofenac sodium (VOLTAREN) 1 % gel APPLY 2 GRAMS TO THE AFFECTED AREA(S) BY TOPICAL ROUTE 4 TIMES PER DAY 08/20/2020 04/22/2022 hydroCHLOROthiazide (HYDRODIURIL) 25 MG tablet Take 25 mg by mouth once daily as directed. 11/27/2020 04/22/2022 hydrOXYzine hcl (ATARAX) 25 MG tablet Take [...] for Nausea/Vomiting 60 tablet 5 04/17/2020 06/13/2021 pantoprazole EC (PROTONIX) 40 MG tablet TAKE 1 TABLET BY MOUTH EVERY DAY FOLLOW UP WITH OFFICE FOR VISIT 90 tablet 01/24/2021 04/17/2021 documented as of this encounter Plan of Treatment Upcoming Encounters Date Type Department Care Team (Late st Contact Info) Description 09/27/2024 2:20 PM TURF MANAGER Office Visit [facility] [address] [facility] [address] [place] [phone] [place] [address] [facility] [address] [place] [address] 09/28/2024 1:00 PM TURF MANAGER Office [place] [facility] [place] [address] [address], [facility] [address] [place] [address] [place] [address] [address] [facility] [address] [place] [address] documented as of this encounter Goals Goal Patient Goal Type Associated Problems Recent Progress Patient-Stated? Author Blood Pressure < 140/90 Blood Pressure 102/69(2022 11:30 AM TURF MANAGER) No Melinda Newsome Quit smoking / using tobacco Lifestyle No Melinda Newsome documented as of this encounter Procedures Procedure Name Priority Date/Time Associated Diagnosis Comments MRI BRAIN WWO CONTRAST Routine 01/31/2021 7:15 PM CDT Multiple sclerosis (HCC) documented in this encounter Results * MRI BRAIN WWO CONTRAST (01/31/2021 7:15 PM CDT) Anatomical Region Laterality Modality Head Magnetic Resonan [...] 7:38 AM Stevenson Almanza MD MR ORDERABLES documented in this encounter Visit Diagnoses Diagnosis Multiple sclerosis (HCC) Multiple sclerosis documented in this encounter Administered Medications Inactive Administered Medications - up to 3 most recent administrations Medication Order MAR Action Action Date Dose Rate Site gadoterate meglumine (Dotarem) injection Intravenous, CONTRAST ONCE, Starting on My 01/31/21 at 1913, Until Thu02/01/21 at 0121 $ Given 01/31/2021 7:14 PM CDT 20 mL documented in this encounter Care Teams Store Manager Relationship Specialty Start Date End Date Naya Arriola PA-C [address] [place] [phone] PCP - General Physician Bureau Chief 01/19/20 Stevenson Almanza MD Neurology 08/16/14 [place] [address] [place] [id number] Pulmonary Disease 02/14/16 documented as of this encounter
--- OUTSIDE RECORDS SUMMARY | 2024-09-18 09:31 | XMS_ITS | Encounter Summary ---
Author Organization [facility] Health Address [address] [place] [address] Care Team Providers Care Fixed Income Manager Name Role Phone Stevenson Almanza MD Unavailable [phone] Dequan Baxter MD Unavailable Anuj Miller Primary Care Provider Unavaila ble Reason for Visit * Reason Comments Squamous Cell Carcinoma right top should er Encounter Details Date Type Department Care Team (Latest Contact Info) Description 12/20/2018 1:00 PM CDT Procedure visit [facility] Mohs Surgery and Cutaneous Oncology [address] [place] [address] Eliane Lantigua MD [address] [facility] [address] DEPT OF DERMATOLOGY [place], [place] [id number] Squamous cell carcinoma of shoulder, right Social History Tobacco Use Types Packs/Day Years [...] Sign Reading Time Taken Comments Blood Pressure 140/85 12/20/2018 2:09 PM CDT Pulse 76 12/20/2018 2:09 PM CDT Temperature - - Respiratory Rate - - Oxygen Saturation 94% 12/20/2018 2:09 PM CDT Inhaled Oxygen Concentration - - Weight 110.2 kg (243 lb) 12/20/2018 1:19 PM CDT Height 162.6 cm (5' 4 ) 12/20/2018 1:19 PM CDT Body Mass Index 41.71 12/20/2018 1:19 PM CDT documented in this encounter Functional [...] this encounter Patient Instructions * Patient Instructions* Dariana Rodriguez RN - 12/20/2018 1:43 PM CDT It was a pleasure to see you today in clinic. Stitches: will dissolve Follow up with your primary warehouse unloader. We will call you with results. * If you have a problem or concern post-operatively, please call ahead to schedule an appointment. We may not be able to accommodate a walk-in appointment * Scars may take 3 months or longer to mature. If you have concerns about your scar at that point, please call our office to schedule a follow up appointment. There are options available to help improve the appearance. Please continue wound care below twice a day for one week then daily for another week. WOUND CARE INSTRUCTIONS 1. Leave your pressure bandage on for 48 hours. You will not need to perform any wound care until this bandage is removed. Do NOT get bandage wet. 2. When you initially begin wound care, you may let the water hit the pressure bandage to loosen itfrom your skin. 3. Wash your hands thoroughly before starting wound care. 4. Begin cleaning surgery site 1-2 times a day with a mild soap (i.e. Dove, Cetaphil, Baby shampoo). Do not use anything antibacterial, as this will dry out your site. 5. Dry the area with a fresh cotton tipped applicator. 6. Apply a generous amount of vaseline where you see the sutures. Avoid using Neosporin, or any bacterial ointment as this is likely to cause an allergic reaction to the site. 7. Cut a non-stick bandage to fit then use paper tape to hold in place. 8. You will be using mild soap and water, vaseline and a bandage twice a day for one week then daily for another week. 9. After surgery, you may restart all of your medications that were stopped (if applicable). - If your site is on your forehead, or near your eye, you will want to use ice packs. Please apply ice packs every hour for 20 minutes while awake. Sleep elevated for the next two nights. For surgical areas on your arms/legs, try to keep the area elevated above the level of your heart as much as possible. Frequent gentle rubbing of your fingers or toes in that area will prevent numbness and stiffness. If located on your arm/hand, we ask that you do not lift anything heavier than a gallon of milk fortwo weeks. For surgical areas on your head/neck, do not bend over or stoop. Do not drop your head, as this increases blood to the surgical area and can induce bleeding. BATHING: Begin bathing once pressure bandage comes off. Do not let direct water pressure hit the surgery site. It is okay if it gets wet, just let the water roll over. PAIN: Tylenol only for the first 24 hours. Do not take any aspirin, Ibuprofen, Motrin or Aleve as this may increase your risk for bleeding for the first 24 hours. Significant pain/discomfort is unusual and should be reportedto our office. BLEEDING: A mild amount of blood on the bandage is expected. Soaking through the bandage is not normal. If this occurs, apply uninterrupted pressure for 20 minutes by the clock. If this does not stopthe bleeding, hold pressure for 20 minutes with an ice pack then call our office. Normal office hour number: [phone] or [phone] After hours Horse And Wagon Driver nuclear weapons mechanical specialist: [phone] documented in this encounter Procedure Notes * Venancio Restrepo MD - 12/20/2018 4:04 PM CDTAssociated Order(s): PROC EXCISION SKIN REMAINDER BODY MALIGNANT Procedure(s): MS EXC SKIN MALIG 1.1-2CM REMAINDR BODY; MS REPR CMPL WND SCALP,EXTR 2.6-7.5 Pre-Procedure Diagnose(s): Squamous cell carcinoma of shoulder, right Elliptical Excision with Complex Closure Date of Service: 12/20/2018 Surgery: Elliptical excision with complex repair Repair size: 3.4 cm Tumor Type: squamous cell carcinoma Location: right top shoulder Derm-Path A. Lesion Size: 0.7 x 0.6 cm Level of Defect: fat Suture: running subcuticular PDS 3-0;PDS 4-0 Primary Surgeon: Grzegorz Vp Information Technology Surgeon: Lauro INDICATIONS: The patient was scheduled for excision of a squamous cell carcinoma on the right top shoulder. The risks of bleeding, infection, discomfort, incomplete removal, and scar formation were explained to the patient. All questions were answered. After informed consent, confirmation of site and identity, and appropriate instructions, the patient underwent the procedure as follows: PROCEDURE: The lesion was outlined with 0.4 cm margins. The lesion and the necessary margin (excised diameter)measured 1.5 x 1.4 cm. An ellipse was designed around the lesion to conform to relaxed skin tensionlines in an effort to minimize scarring and deformity. The patient was then placed in a supine position. The lesion and surrounding skin were prepped with Hibiclens, draped and anesthetized with Lidoc rosa elena 1% with epinephrine 1:100,000 buffered with sodium bicarbonate 8.4% in a 1:10 ratio. Using a #15 blade the skin was excised along pre-marked lines. The resulting defect extended to fat. Wound margins were extensively undermined to limit functional deformity/impairment of adjacent structures. Bleeding vessels were controlled with monopolar electrodesication. space was closed and wound edges opposed with buried vertical mattress sutures. Epidermal approximation was meticulously refined with running subcuticular PDS 4-0 sutures, resulting in a linear closure with little to no wound tension. Blood loss was estimated to be less than 5 cc. The area was coated with petrolatum and coveredwith a non-adherent pressure dressing followed by gauze and tape. Postoperative instructions were reviewed per protocol. The patient left alert and fully oriented. Post-Operative Size: 1.5 x 1.4 cm Final Wound length: 3.4 cm Sutures Used: PDS 3-0;PDS 4-0 Estimated Blood Loss: <5 ml Complications: none The Attending surgeon was present for nuñez portions of the procedure and always immediately available. Venancio Restrepo MD Dermatology Mohs Fellow, PGY-5 12/20/2018 4:08 PM Associated attestation - Eliane Lantigua MD - 12/20/2018 8:24 PM CDT I have reviewed the note, edited it as necessary and performed the nuñez portions of the procedure. Eliane Lantigua MD Plush Finisher documented in this encounter Plan of Treatment Upcoming Encounters Date Type Department Care Team (Late st Contact Info) Description 09/27/2024 2:20 PM TECHNICAL DOCUMENTATION SPECIALIST Office Visit [facility] [address] [phone] [place] [address] [facility] [address] [place] [phone] 09/28/2024 1:00 PM TECHNICAL DOCUMENTATION SPECIALIST Office Visit [facility] - [address] [address] [address] [place] [address] [address] [address] documented as of this encounter Goals Goal Patient Goal Type Associated Problems Recent Progress Patient-Stated? Author Blood Pressure < 140/90 Blood Pressure 102/69(2022 11:30 AM TECHNICAL DOCUMENTATION SPECIALIST) No Melinda Newsome Quit smoking / using tobacco Lifestyle No Melinda Newsome documented as of this encounter Procedures Procedure Name Priority Date/Time Associated Diagnosis Comments MS EXC SKIN MALIG 1.1-2CM REMAINDR BODY Routine 12/20/2018 8:24 PM CDT Squamous cell carcinoma of shoulder, right MS REPR CMPL WND SCALP,EXTR 2.6-7.5 Routine 12/20/2018 8:24 PM CDT Squamous cell carcinoma of shoulder, right DERMATOPATHOLOGY Routine 12/20/2018 12:0 0 AM CDT Squamous cell carcinoma of shoulder, right documented in this encounter Results * MS REPR CMPL WND SCALP,EXTR 2.6-7.5, MS EXC SKIN MALIG 1.1-2CM REMAINDR BODY (12/20/2018 [...] subcuticular PDS 3-0;PDS 4-0 Primary Surgeon: ??Grzegorz Vp Information Technology Surgeon: ??Lauro INDICATIONS: The patient was scheduled [...] ORDERABLES * DERMATOPATHOLOGY (12/20/2018 12:00 AM CDT) Case Report Dermatopathology Report ? Case: [id number] ? Authorizing Provider: ??Eliane Lantigua MD ?Collected: ? 12/20/2018 12:00 AM ? [facility]ing Location: ? [facility] ?? Received: ?12/21/2018 09:45 AM ? Cutaneous Oncology ? Pathologist: ? Zahida Boswell MD ? Specimen: ?Skin, right top of shoulder ? 1:10 PM CDT DERMATOPATHOLOGY LABORATORY Final Diagnosis Specimen A. SKIN, right top of shoulder: DERMAL SCAR RESIDUAL SQUAMOUS CELL CARCINOMA NOT IDENTIFIED (L90.5) 1:10 PM CDT DERMATOPATHOLOGY LABORATORY Clinical History SCC. Check margins. 1:10 PM CDT DERMATOPATHOLOGY LABORATORY Gross Description Specimen A: Received is one formalin filled container labeled with the patient's name and designated right top of shoulder. The specimen consists of an ellipse measuring [id number] and is oriented with the notch at [...] and submitted in cassettes 3-4. Jar 0. 1:10 PM CDT DERMATOPATHOLOGY LABORATORY Microscopic Description Specimen A. SKIN, right top of shoulder: There are fibroblasts and collagen bundles oriented parallel to the skin surface. There are elongated blood vessels, some of which are oriented perpendicular to the skin surface. No residual squamous cell carcinoma is identified. 9 1:10 PM CDT DERMATOPATHOLOGY LABORATORY Disclaimer An external and internal positive and negative controls are appropriate for the histochemical, immunohistochemical and immunofluorescence stain(s) in this case (if any), except where stated explicitly. The performance characteristics of the stain(s) cited in this report were developed and its performance characteristic determined by the Dermatopathology Laboratory at [facility], directed by Dr. Rich Robles. These tests need not be, and therefore are not, approved by the [place] Food and Drug Administration. The tests are used for clinical purposes. Billing Codes Specimen Charges Stain Charges 79942 1 9 1:10 PM CDT DERMATOPATHOLOGY LABORATORY Embedded Images 1:10 PM CDT DERMATOPATHOLOGY LABORATORY Pathology/Cytolog y TISSUE SPECIMEN FROM SKIN / Unknown 12/20/2018 12/21/2018 9:45 AM CDT Eliane Lantigua MD LAB - PATHOLOGY/CYTO LOGY ORDERABLES DERMATOPATHOLOGY LABORATORY [facility] - Department of Dermatology [address] [place] [address], 5th Floor Lab [address] [phone] documented in this encounter Visit Diagnoses Diagnosis Squamous cell carcinoma of shoulder, right- Primary documented in this encounter Care Teams Fixed Income Manager Relationship Specialty Start Date End Date Anuj Miller Update Information PCP - General 10/26/18 01/18/20 Stevenson Almanza MD Neurology 08/16/14 [place] [address] [address] Pulmonary Disease 02/14/16 documented as of this encounter
--- OUTSIDE RECORDS SUMMARY | 2024-09-18 09:31 | XMS_ITS | Encounter Summary ---
Author Organization [facility] Health Address [address] [place] [address] Care Team Providers Care Strategic Accounts Manager Name Role Phone Stevenson Almanza MD Unavailable [phone] Dequan Baxter MD Unavailable [phone] Naya Arriola PA-C Primary Care Provider + Reason for Referral * Radiology Services (Routine) - Closed Specialty Diagnoses / Procedures Referred By Ernesto barrios Referred To Contact MRI Diagnoses Multiple sclerosis (HCC) Procedures MRI [place] [address] [facility] [address] [phone] Referral ID Status Reason Start Date Expiration Date Visits Re quested Visits Authorized [id number] Closed 01/23/2021 03/09/2021 1 1 Reason for Visit * Reason Comments Multiple Sclerosis Follow-up Encounter Details Date Type Department Care Team (Late st Contact Info) Description 01/21/2021 2:00 PM CDT Office Visit [facility] Neurosciences [address] [phone] [place] [address] [facility] [address] [place] [phone] Multiple sclerosis (HCC) (Primary Dx) Social History Tobacco Use Types [...] Sign Reading Time Taken Comments Blood Pressure 120/76 01/21/2021 2:08 PM CDT Pulse 96 01/21/2021 2:08 PM CDT Temperature - - Respiratory Rate 14 01/21/2021 2:08 PM CDT Oxygen Saturation 97% 01/21/2021 2:08 PM CDT Inhaled Oxygen Concentration - - Weight 119.3 kg (263 lb) 01/21/2021 2:08 PM CDT Height 160 cm (5' 3 ) 01/21/2021 2:08 PM CDT Body Mass Index 46.59 01/21/2021 2:08 PM CDT documented in this encounter Functional [...] Instructions * Patient Instructions* Yolanda Burch - 01/21/2021 2:31 PM CDT Call physician if symptoms worsen or with any questions. Take Medications as prescribed. For descriptions of a variety of neurological conditions please visit: [email or web address] Please contact our office 48 hours after testing is complete for results. A HOUSING AND RESIDENCE LIFE DIRECTOR WILL CONTACT YOU TO SCHEDULE THE MRI. IF YOU DO NOT HEAR FROM THEM IN A COUPLE OF DAYS YOU CAN CALL THEM AT [phone]. documented in this encounter Progress Notes * Stevenson Almanza MD - 01/21/2021 2:23 PM CDT CC: MS IH: Seen a year ago. A little heaviness in arms and Legs. A little blurring of vision at night. Told no SLE. No DMTs. No actual attacks. Bladder is not emptying fully on occasion but has not seen a . Nocturia 1 -3. Not using CPAP still. Outpatient Medications Marked as Taking for the 01/21/21 encounter (Office Visit) with Stevenson Almanza MD Medication Sig Dispense Refill ??? amitriptyline (ELAVIL) 100 MG tablet Take 1 (one) tablet by mouth at bedtime 90 tablet 4 ??? ASPIRIN 81 81 MG tablet once daily ??? atorvastatin (LIPITOR) 40 MG tablet Take 40 mg by mouth once daily ??? Cholecalciferol (VITAMIN D) 1000 UNIT capsule Take 5,000 Units by mouth once daily ??? cyanocobalamin (VITAMIN B-12) 2500 MCG tablet Take 2,500 mcg by mouth once daily ??? dapagliflozin propanediol (FARXIGA) 10 MG tablet ??? diclofenac sodium (VOLTAREN) 1 % gel APPLY 2 GRAMS TO THE AFFECTED AREA(S) BY TOPICAL ROUTE 4 TIMES PER DAY ??? hydroCHLOROthiazide (HYDRODIURIL) 25 MG tablet Take 25 mg by mouth once daily as directed. ??? hydrOXYzine hcl (ATARAX) 25 MG tablet [...] once daily ) 30 Tab 3 ??? melatonin 5 MG tablet Take 5 mg by mouth at bedtime ??? meloxicam (MOBIC) 15 MG tablet TAKE [...] needed for Nausea/Vomiting 60 tablet 5 ??? pantoprazole EC (PROTONIX) 40 MG tablet TAKE 1 TABLET BY MOUTH EVERY DAY 90 tablet 0 ??? traMADol (ULTRAM) 50 MG tablet Take 50 mg by mouth once daily Past Medical History: Diagnosis Date ??? Anemia ??? Anxiety ??? Depressive disorder, not elsewhere classified ??? Diabetes ??? Generalized anxiety disorder ??? H/O heart artery stent 2010 [id number] LAD( ) [facility] ??? H/O laparoscopic adjustable gastric banding 2009 ??? Heart attack 2010 ??? HTN (hypertension) ??? Hyperlipemia ??? Hypertension ??? Hypothyroid ??? Migraine ??? Multiple sclerosis 2005 Dr. Almanza ??? LISSETTE (obstructive sleep apnea) ??? S/P tonsillectomy ??? Stomach ulcer ??? Tension headache Exam: BP 120/76 Pulse 96 Resp 14 Ht 1.6 m (5' 3 ) Wt 119.3 kg (263 lb) SpO2 97% BMI 46.59 kg/m2 Cognitively: Alert and oriented times 3. Attention and concentration, fund of knowledge, recent andremote memory and central language function are intact. Cranial Nerves: II: Full field of vision to confrontation. IIl, lV, Vl:Extraocular movements intact. PERRL V: Normal motor and sensory function VII: Normal facial movement and symmetry VIII: Intact hearing to confrontation Xl: Normal shoulder shrug Neck: Without bruits Motor: Normal tone, power and bulk Sensory: Intact to touch and vibration Muscle stretch reflexes symmetric at 0-tr at the biceps, triceps, brachioradialis, knees and ankles. Cerebellum: intact on finger to nose. Casual gait: normal station and gait ASSESSMENT: MS stable Untreated LISSETTE PLAN: No DMTs Re image Yearly OV documented in this encounter Plan of Treatment Upcoming Encounters Date Type Department Care Team (Late st Contact Info) Description 09/27/2024 2:20 PM CLAIM CLINICIAN Office Visit [facility] Neurosciences [address] [facility] [address] [place] [phone] [place] [address] [facility] [address] [place] [address] 09/28/2024 1:00 PM CLAIM CLINICIAN Office Visit [facility] [place] [address] [address] , [facility] [address] [place] [address] [place] [address] [address] [facility] [address] [place] [address] documented as of this encounter Goals Goal Patient Goal Type Associated Problems Recent Progress Patient-Stated? Author Blood Pressure < 140/90 Blood Pressure 102/69(2022 11:30 AM CLAIM CLINICIAN) No Melinda Newsoem Quit smoking / using tobacco Lifestyle No Melinda Newsome documented as of this encounter Results * MRI BRAIN WWO [...] Diagnosis Multiple sclerosis (HCC)- Primary Multiple sclerosis Multiple sclerosis (HCC) Multiple sclerosis documented in this encounter Care Teams Strategic Accounts Manager Relationship Specialty Start Date End Date Naya Arriola PA-C [address] [place] [phone] PCP - General Physician Environmental Planner 01/19/20 Stevenson Almanza MD Neurology 08/16/14 Dequan Baxter [place] [address] [place] [address] Pulmonary Disease 02/14/16 documented as of this encounter
--- OUTSIDE RECORDS SUMMARY | 2024-09-18 09:31 | XMS_ITS | Encounter Summary ---
Author Organization [facility] Address [address] [facility] [place] [address] Care Team Providers Care Envelope Machine Adjuster Name Role Phone Stevenson Almanza MD Unavailable [phone] Dequan Baxter MD Unavailable [phone] Naya Arriola PA-C Primary Care Provider + Reason for Visit * Auth/Cert Specialty Diagnoses / Procedures Referred By Ernesto barrios Referred To Contact Procedures ESOPHAGOGASTRODUODENOSCOPY (EGD) DIAGNOSTIC COLONOSCOPY SCREEN Referral ID Status Reason Start Date Expiration Date Visits Re quested Visits Authorized [id number] 1 1 Encounter Details Date Type Department Care Team (Latest Contact Info) Description 06/18/2020 11:48 AM CDT - 06/18/2020 2:27 PM CDT Hospital Encounter [facility] - Endoscopy Services [id number] [place] [address] [place] [address] [facility] [address] NOONAN [address] [place] [address] Surgery General Discharge Disposition: Home or Self Care Social [...] daily 05/09/2017 01/21/2021 Blood Glucose Monitoring Suppl ([employer] SYSTEM) W/DEVICE KIT Use once daily 1 [...] once daily 200 Each 1 09/02/2016 01/21/2021 [facility] Institute[facility]CH ULTRA TEST STRIPS test strip USE ONE [...] disorder ??? H/O heart artery stent 2010 [id number] LAD( ) [facility] ??? H/O laparoscopic adjustable [...] ??? Blood Glucose Monitoring Suppl (ONE TOUCH [employer] SYSTEM) W/DEVICE KIT Use once daily 1 [...] st Contact Info) Description 09/27/2024 2:20 PM STATION AIR TRAFFIC CONTROL SPECIALIST Office Visit [facility] [address] [facility] [address] [place] [phone] [place] [address] [facility] [address] [place] [phone] 09/28/2024 1:00 PM STATION AIR TRAFFIC CONTROL SPECIALIST Office Visit [facility] [place] [address] [address] [facility] [address] [place] [address] [place] [address] [address] [place] [address] documented as of this encounter Goals Goal Patient Goal Type Associated Problems Recent Progress Patient-Stated? Author Blood Pressure < 140/90 Blood Pressure 102/69(2022 11:30 AM STATION AIR TRAFFIC CONTROL SPECIALIST) No Melinda Newsome Quit smoking / using tobacco Lifestyle No Melinda Newsome documented as of this encounter Procedures Procedure Name Priority Date/Time Associated Diagnosis Comments COLONOSCOPY SCREEN 06/18/2020 1: 00 PM CDT [facility] ED EGD FLEX TRANSORAL DX 06/18/2020 1:00 [...] the physician, the ? nurse and the light rail operator in the procedure room. Mental ? Status [...] Procedure Code(s): ? --- Professional --- ? 31462, Colonoscopy, flexible; with removal of tumor(s), polyp(s), or ? other lesion(s) by snare technique ? 69954, 59, Colonoscopy, flexible; with biopsy, single or multiple ? --- Technical --- ? 18592, Colonoscopy, flexible; with removal of tumor(s), polyp(s), or ? other lesion(s) by snare technique ? 69348, 59, Colonoscopy, flexible; with biopsy, single or [...] ? K64.8, Other hemorrhoids CPT copyright 2017 [employer]. All rights reserved. The codes documented in this report are preliminary and upon asphalt worker review may be revised to meet current compliance requirements. Dr. Mark Rose MD Mark Rose MD 06/18/2020 1:20:39 PM This report has been signed electronically. Number of Addenda: 0 Note Initiated On: 06/18/2020 12:49 PM [facility] 06/18/2020 12:4 9 PM CDT Mark Rose MD GI PROCEDURE ORDERA BLES Performing Organization Address [facility] Co de Phone Number [facility] [place] [address] * HELICOBACTER PYLORI UREASE (STL) (06/18/2020 12:44 PM CDT) Helicobacter pylori Urease Initial Negative Negative 06/19/2020 4:41 PM CDT [facility] Helicobacter pylori Urease Final Negative Negative 06/19/2020 4:41 PM CDT [facility] Comment:This is an appended report. These results have been appended to a previously preliminary verified report. Microbiology GASTRIC ANTRAL BIOPSY SPECIMEN / Unknown 06/18/2020 12:44 PM CDT 06/18/2020 4:07 PM CDT Mark Rose MD LAB - MICROBIOLOGY ORDERABLES Performing Organization Address [facility] Co de Phone Number [facility] [address] [place] [address] * PATHOLOGY TISSUE EXAM (STL) (06/18/2020 12:44 PM CDT) Case Report Surgical Pathology Report ? Case: [id number] ? Authorizing Provider: ??Mark Rose MD ? [...] of colon polyps. 06/20/2020 9:54 AM CDT [facility] Gross Description The specimens are received in 2 formalin filled containers labeled with the patient's name Mango Rodriguez. Part A is additionally labeled ? esophageal biopsy,? and consists of 5 white-red tissue fragments ranging from 0.1 cm to 0.3 cm in greatest dimension. Entirely submitted in cassette A1. Part B is additionally labeled ? colon polyp,? and consists of numerous dunaway-pink tissue fragments aggregating to 2.3 x 0.3 x 0.1 cm. Entirely submitted in cassette B1. 06/20/2020 9:54 AM CDT [facility] Microscopic Description A. Sections reveal fragments of esophageal squamous mucosa with no significant pathologic diagnoses. No significant inflammation is seen. A PAS and Alcian blue special stain is negative for goblet cells. Controls are appropriate. B. Sections reveal fragments of colonic mucosa with benign hyperplastic polyp. 06/20/2020 9:54 AM T [facility] Disclaimer All histochemical and/or immunohistochemical results [...] interpreted with caution. 06/20/2020 9:54 AM CDT [facility] Embedded Images 06/20/2020 9:54 AM CDT [facility] Pathology/Cytology ESOPHAGEAL BIOPSY SPECIMEN / Unknown 06/18/2020 12:44 PM CDT 06/18/2020 2:35 PM CDT Miscellaneous samples (specimen) POLYP OF COLON / Unknown 06/18/2020 1:03 PM CDT 06/18/2020 2:35 PM CDT Mark Rose MD LAB - PATHOLOGY/CYT PAL ORDERABLES [facility] [address] [place] [place] [address] * EGD (06/18/2020 12:36 PM CDT) [...] the physician, the ? nurse and the light rail operator in the procedure room. Mental ? Status [...] Procedure Code(s): ? --- Professional --- ? 03328, Esophagogastroduode noscopy, flexible, transoral; with biopsy, ? single or multiple ? 27671, Dilation of esophagus, by unguided sound or bougie, single or ? multiple passes ? --- Technical --- ? 36124, Esophagogastroduode noscopy, flexible, transoral; with biopsy, ? single or multiple ? 16037, Dilation of esophagus, by unguided sound or [...] esophagitis ? K31.84, Gastroparesis CPT copyright 2017 [employer]. All rights reserved. The codes documented in this report are preliminary and upon asphalt worker review may be revised to meet current compliance requirements. Dr. Mark Rose MD ____ Mark Rose MD 06/18/2020 12:48:50 PM This report has been signed electronically. Number of Addenda: 0 Note Initiated On: 06/18/2020 12:36 PM [facility] 06/18/2020 12:3 6 PM CDT Mark Rose MD GI PROCEDURE ORDERA [facility] [place] [address] documented in this encounter Visit Diagnoses Diagnosis Diagnosis unknown Other unknown and unspecified cause of morbidity or mortality documented in this encounter Administered Medications Inactive [...] MULTIPLE, Starting on Thu06/18/20 at 1228, Until Thu06/18/20 at 1527, For Saline Lock flushes if one is inserted for Bronchoscopy/Endoscopy procedure., Pre-procedure (GI) documented in this encounter Active and Recently Administered Medications Times are shown in CDT. Scheduled Medication Order 06/16/2020 06/17/2020 06/18/2020 0.9% NaCl injection 3 mL 3 mL, Intracatheter, PRE-PROCEDURE MULTIPLE, Starting on Thu06/18/20 at 1228, Until Thu06/18/20 at 1527, For Saline Lock flushes if one is inserted for Bronchoscopy/Endoscopy procedure., Pre-procedure (GI) Continuous Medication Order 06/16/2020 06/17/2020 06/18/2020 0.9% NaCl infusion at 20 mL/hr, Intravenous, CONTINUOUS, Starting on Thu06/18/20 at 1230, Until Thu06/18/20 at 1527, Pre-procedure (GI) 1226 ($ New Bag/Syri nge - Provider: Melinda Varghese RN)1315 (Anesthesia Volume Adjustment - Provider: Rukhsana Chowdhury APRN-HYDRAULIC PUNCH PRESS OPERATOR) documented in this encounter Care Teams Envelope Machine Adjuster Relationship Specialty Start Date End Date Naya Arriola PA-C [address] [place] [address] PCP - General Physician Dish Carrier 01/19/20 Stevenson Almanza MD Neurology 08/16/14 [place] [address] [address] Pulmonary Disease 02/14/16 documented as of this encounter
--- OUTSIDE RECORDS SUMMARY | 2024-09-18 09:31 | XMS_ITS | Encounter Summary ---
Author Organization [facility] Address [address] [facility] [place] [address] Care Team Providers Care Sales Technician Name Role Phone Stevenson Almanza MD Unavailable [phone] Dequan Baxter MD Unavailable [phone] Naya Arriola PA-C Primary Care Provider + Reason for Visit * Reason Comments Refill Request Encounter Details Date Type Department Care Team (Late st Contact Info) Description 03/10/2020 Refill [facility] [address] [place] [address] [place] [address] [facility] [address] [address] Refill Request Social History Tobacco [...] Contact Info) Description 09/27/2024 2:20 PM AUTO OVERHAULER Office Visit [facility] Neurosciences [address] [facility] [address] [place] [address] [place] [address] [facility] [address] [place] [address] 09/28/2024 1:00 PM AUTO OVERHAULER Office Visit [facility] [place] [address] [address], [address] [place] [address] [place] [address] [address] [facility] [address] [place] [address] documented as of this encounter Goals Goal Patient Goal Type Associated Problems Recent Progress Patient-Stated? Author Blood Pressure < 140/90 Blood Pressure 102/69(2022 11:30 AM AUTO OVERHAULER) No Melinda Newsome Quit smoking / using tobacco Lifestyle No Melinda Newsome documented as of this encounter Visit Diagnoses Not on filedocumented in this encounter Care Teams Sales Technician Relationship Specialty Start Date End Date Naya Arriola PA-C [address] [place] [phone] PCP - General Physician Cargo And Container Inspector 01/19/20 Stevenson Almanza MD Neurology 08/16/14 [place] [address] [address] Pulmonary Disease 02/14/16 documented as of this encounter
--- OUTSIDE RECORDS SUMMARY | 2024-09-18 09:31 | XMS_ITS | Encounter Summary ---
Author Organization [facility] Address [address] [facility] [place] [address] Care Team Providers Care Manager Interface Name Role Phone Stevenson Almanza MD Unavailable [phone] Dequan Baxter MD Unavailable [phone] Naya Arriola PA-C Primary Care Provider + Reason for Visit * Reason Onset Date Comments Results 04/19/2020 LFT Encounter Details Date Type Department Care Team (Late st Contact Info) Description 04/19/2020 Telephone [facility] [address] [address] [place] [address] [address] Results (LFT) Social History Tobacco Use Types Packs/Day Years [...] Telephone Encounter - Sanjuana Andrade RN - 04/19/2020 11:16 AM CDT Results and recommendations called to patient. RUQ ultrasound with elastography scheduled 06/15 at 730 am. * Telephone Encounter - Sanjuana Andrade RN - 04/19/2020 11:14 AM CDT ----- Message from SARAN Knight sent at 04/19/2020 8:34 AM CDT ----- Findings AST and ALT mildly elevated. Likely secondary to recent weight gain. Recs Continue w/ dietary modifications and increasing aerobic exercise. Recheck LFTs in 4 months Please get a RUQ US w/ elastography since it was been over 4 years since her last one documented in this encounter Plan of Treatment Upcoming Encounters Date Type Department Care Team (Late st Contact Info) Description 09/27/2024 2:20 PM CHIEF OF STAFF Office Visit [facility] Neurosciences [address] [place] [address] [place] [address] [place] [id number] [place] [address] [address] [place] [address] 09/28/2024 1:00 PM CHIEF OF STAFF Office Visit [facility] [place] [address] [address] Barrett, Juan Alberto [address] [place] [address] [place] [address] [address] [facility] [address] [place] [address] documented as of this encounter Goals Goal Patient Goal Type Associated Problems Recent Progress Patient-Stated? Author Blood Pressure < 140/90 Blood Pressure 102/69(2022 11:30 AM CHIEF OF STAFF) No Melinda Newsome Quit smoking / using tobacco Lifestyle No Melinda Newsome documented as of this encounter Visit Diagnoses Diagnosis Abnormal liver function tests- Primary Other abnormal blood chemistry documented in this encounter Care Teams Manager Interface Relationship Specialty Start Date End Date Naya Arriola PA-C [address] [place] [address] PCP - General Physician Drafter Automotive Design 01/19/20 Stevenson Almanza MD Neurology 08/16/14 [place] [address] [facility] [address] [place] [address] Pulmonary Disease 02/14/16 documented as of this encounter
--- OUTSIDE RECORDS SUMMARY | 2024-09-18 09:31 | XMS_ITS | Encounter Summary ---
Author Organization [facility] Address [address] [facility] [place] [address] Care Team Providers Care Correctional Facility Nurse Name Role Phone Stevenson Almanza MD Unavailable [phone] Dequan Baxter MD Unavailable [phone] Naya Arriola PA-C Primary Care Provider + Reason for Visit * Reason Comments Refill Request Encounter Details Date Type Department Care Team (Late st Contact Info) Description 08/03/2021 Refill [facility] [address] [facility], [address] [place] [address] Taylor Donohue, CUSTOMER RELATIONS CONSULTANT-[facility] [address] [facility] JUAN ALBERTO [address] [place] [address] Refill Request Social History Tobacco Use [...] st Contact Info) Description 09/27/2024 2:20 PM MANAGER INPATIENT Office Visit [facility] Neurosciences [address] [facility] [address] [place] [phone] [place] [address] [facility] JUAN ALBERTO [address] [place] [address] 09/28/2024 1:00 PM MANAGER INPATIENT Office Visit [facility] [place] [address] [address] , Juan Alberto [address] [place] [address] [place] [address] [address] JUAN ALBERTO [address] [place] [address] documented as of this encounter Goals Goal Patient Goal Type Associated Problems Recent Progress Patient-Stated? Author Blood Pressure < 140/90 Blood Pressure 102/69(2022 11:30 AM MANAGER INPATIENT) No Melinda Newsome Quit smoking / using tobacco Lifestyle No Melinda Newsome documented as of this encounter Visit Diagnoses Not on filedocumented in this encounter Care Teams Correctional Facility Nurse Relationship Specialty Start Date End Date Naya Arriola PA-C [address] [place] [phone] PCP - General Physician Cto 01/19/20 Stevenson Almanza MD Neurology 08/16/14 [place] [address] [address] Pulmonary Disease 02/14/16 documented as of this encounter
--- OUTSIDE RECORDS SUMMARY | 2024-09-18 09:31 | XMS_ITS | Encounter Summary ---
Author Organization [facility] Address [address] [place] [address] Care Team Providers Care Sausage Cooker Name Role Phone Stevenson Almanza MD Unavailable [phone] Dequan Baxter MD Unavailable [phone] Naya Arriola PA-C Primary Care Provider + Reason for Visit * Auth/Cert Specialty Diagnoses / Procedures Referred By Ernesto barrios Referred To Contact Procedures ESOPHAGOGASTRODUODENOSCOPY (EGD) DIAGNOSTIC COLONOSCOPY SCREEN Referral ID Status Reason Start Date Expiration Date Visits Re quested Visits Authorized [id number] 1 1 Encounter Details Date Type Department Care Team (Late st Contact Info) Description 06/18/2020 12:32 PM CDT Anesthesia Event [facility] [address] [place] [address] Dennis Menjivar MD [address] [facility] [address] [place] [address] Rukhsana Chowdhury APRN-GRETCHEN [address] [facility] [address] [place] [address] Anesthesia Record Procedure Summary Procedure Name Responsible Anesthesiologist Anesthesia Start Time Anesthesia Stop Time ESOPHAGOGASTRODUODENOSCOPY ( EGD) DIAGNOSTIC WITH BIOPSY AND OR POLYPECTOMY Dennis Menjivar MD 06/18/20 1232 06/18/20 1316 Events Date Time Event Comment 06/18/2020 1226 1232 An Start 1232 Out OR Start Data 1234 PT Reassessment 1236 Timeout Anesthesia part icipated in timeout at the time documented in the record by nursing. 1316 Electnc Sig 1316 Out OR Stop Data 1316 An Stop Meds Name Total lidocaine 2% (PF) injection (20 mg/mL) 5 0 mg propofol (DIPRIVAN) injection 10mg/ml (E NDO USE) 32 mL 0.9% NaCl infusion 350 mL * Agents Name Exp. N2O O2 * Blood No blood administrations on file. Lines, Drains, and Airways Type Details Placement Removal Peripheral IV Date: 06/18/20; Time : 1225; Orientation: Right; Placed By: CHARIS Lawrence; Tolerance: Well 06/18/20 1225 by Melinda Healy RN 06/18/20 1345 by Leah Kendrick RN documented in this encounter Social History Tobacco [...] as of this encounter Progress Notes * Rukhsana Chowdhury APRN-SIGNAL SYSTEM TESTING MAINTAINER - 06/18/2020 1:17 PM CDT ANESTHESIA POSTOP EVALUATION NOTE Procedure: ESOPHAGOGASTRODUODENOSCOPY (EGD) DIAGNOSTIC WITH BIOPSY AND OR POLYPECTOMY COLONOSCOPY WITH BIOPSY AND OR POLYPECTOMY Lucretia Rodriguez is a 54 year old female Patient Vitals for the past 6 hrs: BP Temp Pulse Resp SpO2 Pain Scale/Observation 06/18/20 1213 146/78 98.3 ??F (36.8 ??C) 77 18 92 % No/denies pain 06/18/20 1236 138/96 -- -- -- 92 % -- 06/18/20 1241 -- -- -- -- 98 % -- 06/18/20 1246 (!) 167/122 -- -- -- 97 % -- 06/18/20 1251 (!) 142/100 -- -- -- 91 % -- 06/18/20 1256 140/94 -- -- -- 97 % -- 06/18/20 1301 (!) 149/101 -- -- -- 96 % -- 06/18/20 1306 (!) 170/115 -- -- -- 95 % -- 06/18/20 1311 -- -- -- -- 97 % -- 06/18/20 1312 173/88 -- -- -- -- -- 06/18/20 1316 -- -- -- -- 97 % -- Anesthesia Type: MAC * No Diagnosis Codes entered * Mental Status: awake, sufficiently recovered from acute administration of anesthesia to participatein the evaluation, neurologic status has returned to perioperative level, alert, oriented and neurologic status has returned to preoperative level Neuro Status: No numbess, tingling or visual disturbances Respiratory Function: natural Cardiac Function: stable Postop Pain: acceptable to the patient Postop Hydration: adequate Postop Nausea: none Assessment: no apparent anesthetic complications, patient tolerated procedure well and no evidence of recall Patient Disposition: Release from Anesthesia Care COMPLICATIONS: No complications documented. * Maurice Parr MD - 06/18/2020 12:24 PM CDT ANESTHESIA PREOPERATIVE EVALUATION NOTE Procedure: ESOPHAGOGASTRODUODENOSCOPY (EGD) DIAGNOSTIC WITH BIOPSY AND OR POLYPECTOMY COLONOSCOPY WITH BIOPSY AND OR POLYPECTOMY NPO status: Since Midnight (06/18/2020 12:16 PM) Vitals: Patient Vitals for the past 6 hrs: BP Temp Pulse Resp SpO2 06/18/20 1213 146/78 98.3 ??F (36.8 ??C) 77 18 92 % ANESTHESIA PRE-EVALUATION NOTE Physical Exam: Orientation X3 Airway/Mallampati Score: III Mouth Opening Distance: 3 fingerwidths Neck ROM: full TM Distance: > 3 FB Teeth: normal Heart: regular rate rhythm Lungs: normal Abdomen Exam: obese Review of Systems: History of anesthetic complications: No Malignant Hyperthermia: No GERD: Yes, well controlled Poor Exercise Tolerance: No Shortness of Breath: No ANESTHESIA PLAN ASA Score: 3 NPO Status: No solids since midnight Anesthesia Plan: MAC Planned Induction: intravenous Planned Postop Destination: PACU Anesthetic plan was discussed with: patient Anesthetic Plan discussion was: Consented BMI, Height, Weight Tobacco History Estimated body mass index is 46.94 kg/m?? as calculated from the following: Height as of this encounter: 1.6 m (5' 3 ). Weight as of this encounter: 120.2 kg (265 lb). Social History Tobacco Use Smoking Status Former Smoker ??? Packs/day: 0.50 ??? Years: 30.00 ??? Pack years: 15.00 ??? Types: Cigarettes Smokeless Tobacco Never Used Alcohol History Drug History Social History Substance and Sexual Activity Alcohol Use No ??? Alcohol/week: 0.0 standard drinks Comment: Rarely Social History Substance and Sexual Activity Drug Use No Outpatient Medications: Inpatient Medications: Outpatient Medications Marked as Taking for the 06/18/20 encounter (Hospital Encounter) Medication Sig Last Dose ??? amitriptyline Take 1 tablet by mouth at bedtime 06/17/2020 at Unknown time ??? atorvastatin Take 40 tablets by mouth once daily 06/17/2020 at Unknown time ??? vitamin D Take 5,000 Units by mouth once daily 06/17/2020 at Unknown time ??? cyanocobalamin Take 2,500 mcg by mouth once daily 06/16/2020 at Unknown time ??? levothyroxine TAKE ONE TABLET BY MOUTH ONCE DAILY BEFORE BREAKFAST 06/18/2020 at Unknown time ??? linaCLOtide TAKE ONE CAPSULE BY MOUTH ONCE DAILY ON AN EMPTY STOMACH AT LEAST 30 MINUTES PRIOR TO FIRST MEAL OF THE DAY 06/17/2020 at Unknown time ??? lisinopril TAKE ONE TABLET BY MOUTH ONCE DAILY (Patient taking differently: Take 20 mg by mouthonce daily ) 06/18/2020 at Unknown time ??? meloxicam TAKE ONE TABLET BY MOUTH ONCE DAILY 06/18/2020 at Unknown time ??? metFORMIN TAKE ONE TABLET BY MOUTH ONCE DAILY 06/16/2020 at Unknown time ??? metoprolol tartrate TAKE ONE TABLET BY MOUTH TWICE A DAY 06/18/2020 at Unknown time ??? ondansetron Take 1 tablet by mouth every 8 hours as needed for Nausea/Vomiting 06/18/2020 at Unknown time ??? pantoprazole EC Take 1 tablet by mouth once daily 06/18/2020 at Unknown time ??? traMADol Take 50 mg by mouth once daily 06/17/2020 at Unknown time ??? VICTOZA 06/16/2020 at Unknown time Current Facility-Administered Medications Medication Dose Last Admin ??? 0.9% NaCl IV Allergies: Allergies Allergen Reactions ??? Latex ??? Sulfa Drugs ??? Adhesive Sensitivity Rash Relevant Problems No relevant active problems Problem List: Patient Active Problem List Diagnosis Date Noted ??? Seborrheic keratoses 01/20/2019 Priority: Not Prioritized ??? Lentigines 01/20/2019 Priority: Not Prioritized ??? Multiple benign nevi of upper and lower extremities, and trunk 01/20/2019 Priority: Not Prioritized ??? History of squamous cell carcinoma of skin 01/20/2019 Priority: Not Prioritized ??? Family history of melanoma 01/20/2019 Priority: Not Prioritized ??? Gastroesophageal reflux disease without esophagitis 12/03/2018 Priority: Not Prioritized ??? BOONE (nonalcoholic steatohepatitis) 11/20/2017 Priority: Not Prioritized ??? Abdominal pain, RUQ (right upper quadrant) 06/18/2016 Priority: Not Prioritized ??? Fatty liver 06/09/2016 Priority: Not Prioritized ??? LISSETTE on CPAP 05/27/2016 Priority: Not Prioritized ??? Type 2 diabetes mellitus without complication 05/27/2016 Priority: Not Prioritized ??? Hypothyroidism, adult 11/23/2015 Priority: Not Prioritized ??? Morbid obesity due to excess calories 11/23/2015 Priority: Not Prioritized ??? Vitamin D deficiency 07/31/2015 Priority: Not Prioritized ??? Major depressive disorder, recurrent episode, moderate 06/27/2015 Priority: Not Prioritized ??? Hyperplastic colonic polyp 01/23/2015 Priority: Not Prioritized ??? MS (multiple sclerosis) 07/25/2014 ??? Hot flashes, menopausal 12/21/2013 ??? HTN (hypertension) 05/02/2013 ??? Mixed hyperlipidemia 05/02/2013 Medical History: Past Medical History: Diagnosis Date ??? Anemia ??? Anxiety ??? Depressive disorder, not elsewhere classified ??? Diabetes ??? Generalized anxiety disorder ??? H/O heart artery stent 2010 [id number] LAD( ) niry ??? H/O laparoscopic adjustable gastric banding 2009 ??? Heart attack 2010 ??? HTN (hypertension) ??? Hyperlipemia ??? Hypertension ??? Hypothyroid ??? Migraine ??? Multiple sclerosis 2006 Dr. Almanza ??? LISSETTE (obstructive sleep apnea) ??? S/P tonsillectomy ??? Stomach ulcer ??? Tension headache Surgical History: Past Surgical History: Procedure Laterality Date ??? [...] LAPAROSCOPIC ??? ULNAR NERVE RELEASE R side Lab Results: Recent Labs Component Name 04/18/20 1204 SODIUM 140 POTASSIUM 3.7 CALCIUM 9.5 CHLORIDE 102 CO2 23 GLUCOSE 152* BUN 17 CREATININE 0.96 Invalid input(s): PREGTESTUR Recent Labs Component Name 04/18/20 1204 ALT 47* AST 42* ALKPHOS 67 EGFR 67 ALBUMIN 4.6 documented in this encounter Miscellaneous Notes * Anesthesia Transfer of Care - Rukhsana Chowdhury APRN-SIGNAL SYSTEM TESTING MAINTAINER - 06/18/2020 1:17 PM CDT ANESTHESIA TRANSFER OF CARE NOTE Today's Date: 06/18/2020 Date of : 1965 Patient: Lucretia Rodriguez Procedure(s): ESOPHAGOGASTRODUODENOSCOPY (EGD) DIAGNOSTIC WITH BIOPSY AND OR POLYPECTOMY COLONOSCOPY WITH BIOPSY AND OR POLYPECTOMY Surgeon(s): Primary: Mark Rose MD Preop Diagnosis: * No Diagnosis Codes entered * Pre-op Meds (From admission, onward) Start Stop Status Route Frequency Ordered 06/18/20 1230 0.9% NaCl infusion -- Dispensed IV CONTINUOUS 06/18/20 1154 06/18/20 1228 0.9% NaCl injection 3 mL -- Dispensed IK PRE-PROCEDURE MULTIPLE 06/18/20 1229 * No Diagnosis Codes entered * . Allergies Allergen Reactions ??? Latex ??? Sulfa Drugs ??? Adhesive Sensitivity Rash Vitals: Patient Vitals for the past 3 hrs: BP Temp Pulse Resp SpO2 06/18/20 1316 -- -- -- -- 97 % 06/18/20 1312 173/88 -- -- -- -- 06/18/20 1311 -- -- -- -- 97 % 06/18/20 1306 (!) 170/115 -- -- -- 95 % 06/18/20 1301 (!) 149/101 -- -- -- 96 % 06/18/20 1256 140/94 -- -- -- 97 % 06/18/20 1251 (!) 142/100 -- -- -- 91 % 06/18/20 1246 (!) 167/122 -- -- -- 97 % 06/18/20 1241 -- -- -- -- 98 % 06/18/20 1236 138/96 -- -- -- 92 % 06/18/20 1213 146/78 98.3 ??F (36.8 ??C) 77 18 92 % Lines, Drains, and Airways Type Details Placement Removal Peripheral IV Date: 06/18/20; Time: 122; Orientation: Right; Location: Hand; Placed By: CHARIS Lawrence; Gauge: 22 Gauge ; Tolerance: Well 06/18/20 1225 by Melinda Varghese RN Intraprocedure I/O Totals Intake propofol (DIPRIVAN) injection 10mg/ml (ENDO USE) 32.00 mL 0.9% NaCl infusion 350.00 mL Total Intake 382 mL Patient Transfer Location: PACU Transport Airway: spontaneous respirations Complications: None Handoff Given? Yes Checklist or Protocol - The nuñez handoff elements that must be included in the transfer of care checklist include: 1. Identification of patient. 2. Identification of responsible practitioner (PACU nurse or advanced practitioner). 3. Discussion of pertinent medical history. 4. Discussion of the surgical/procedure course (procedure, reason for surgery, procedure performed). 5. Intraoperative anesthetic management and issue/concerns. 6. Expectations/Plans for the early post-procedure period. 7. Opportunity for questions and acknowledgement of understanding of report from the receiving PACUteam. ALEJANDRO Williamson documented in this encounter Plan of Treatment Upcoming Encounters Date Type Department Care Team (Late st Contact Info) Description 09/27/2024 2:20 PM AV SPECIALIST Office Visit [facility] Neurosciences [address] [phone] [place] [address] [facility] [address] [place] [phone] 09/28/2024 1:00 PM AV SPECIALIST Office Visit [facility] [place] [address] [address] [address] [place] [address] [address] [facility] [address] [place] [address] documented as of this encounter Goals Goal Patient Goal Type Associated Problems Recent Progress Patient-Stated? Author Blood Pressure < 140/90 Blood Pressure 102/69(2022 11:30 AM AV SPECIALIST) No Melinda Newsome Quit smoking / using tobacco Lifestyle Melinda Barclay documented as of this encounter Visit Diagnoses Not on filedocumented in this encounter Administered Medications Inactive Administered Medications - up to 3 most recent administrations Medication Order MAR Action Action Date Dose Rate Site lidocaine hcl (PF) (XYLOCAINE MPF) 2 % injection PRN, Starting on Thu06/18/20 at 1238, Until Thu06/18/20 at 1316, Anesthesia Intra-op $ Given 06/18/2020 12:38 PM CDT 50 mg propofol (DIPRIVAN) injection CONTINUOUS PRN, Starting on Thu06/18/20 at 1238, Until Thu06/18/20 at 1316, Anesthesia Intra-op $ New Bag/Syringe 06/18/2020 12:38 PM CDT documented in this encounter Care Teams Sausage Cooker Relationship Specialty Start Date End Date Naya Arriola PA-C [address] [place] [phone] PCP - General Physician Fusing Furnace Loader 01/19/20 Stevenson Almanza MD Neurology 08/16/14 [place] [address] [address] Pulmonary Disease 02/14/16 documented as of this encounter
--- OUTSIDE RECORDS SUMMARY | 2024-09-18 09:31 | XMS_ITS | Encounter Summary ---
Author Organization [facility] Address [address] [facility] [place] [address] Care Team Providers Care Data Architect Manager Name Role Phone Stevenson Almanza MD Unavailable [phone] Dequan Baxter MD Unavailable [phone] Naya Arriola PA-C Primary Care Provider + Encounter Details Date Type Department Care Team (Late st Contact Info) Description 02/22/2020 Orders Only [facility] Medical Group [address] [facility] [address] [place] [address] [place] [address] [facility] [address] [address] Special screening for malignant neoplasms, colon Social History Tobacco Use Types Packs/Day Years [...] st Contact Info) Description 09/27/2024 2:20 PM GUT SORTER Office Visit [facility] Neurosciences [address] [facility] [address] [place] [phone] [place] [address] [facility] [address] [place] [phone] 09/28/2024 1:00 PM GUT SORTER Office Visit [facility] [place] [address] [facility] [address] [place] [address] [place] [address] [facility] [address] [place] [address] documented as of this encounter Goals Goal Patient Goal Type Associated Problems Recent Progress Patient-Stated? Author Blood Pressure < 140/90 Blood Pressure 102/69(2022 11:30 AM GUT SORTER) No Melinda Newsome Quit smoking / using tobacco Lifestyle No Melinda Newsome documented as of this encounter Visit Diagnoses Diagnosis Special screening for malignant neoplasms, colon- Primary documented in this encounter Care Teams Data Architect Manager Relationship Specialty Start Date End Date Naya Arriola PA-C [address] [place] [phone] PCP - General Physician Store Stock Help 01/19/20 Stevenson Almanza MD Neurology 08/16/14 [place] [address] [address] Pulmonary Disease 02/14/16 documented as of this encounter
--- OUTSIDE RECORDS SUMMARY | 2024-09-18 09:31 | XMS_ITS | Encounter Summary ---
Author Organization [facility] Address [address] [facility] [place] [address] Care Team Providers Care Transportation Coordinator Name Role Phone Stevenson Almanza MD Unavailable [phone] Dequan Baxter MD Unavailable [phone] Anuj Miller Primary Care Provider Unavaila Naya Haas PA-C Primary Care Provider + Encounter Details Date Type Department Care Team (Late st Contact Info) Description 10/12/2019 Orders Only [facility] Medical Group [address] [facility], [facility] [address] [place] [address] [place] [address] [address] Special screening for malignant neoplasms, [...] this encounter Patient Instructions * Patient Instructions* Robyn Patterson RN - 10/12/2019 7:50 AM MATERIAL MIXER CAMRON GALLARDO M.D. [address] [address] [place] [address] OFFICE: [phone] [place], [place] [address] EXCHANGE: [phone] COLONOSCOPY HOLD YOUR DIABETIC MEDICATIONS THE DAY BEFORE THE PROCEDURE AND MORNING OF THE PROCEDURE. CHECK YOUR BLOOD SUGARS FREQUENTLY ?? NOTIFY OUR OFFICE IF YOU ARE TAKING A BLOOD THINNER (ie. COUMADIN,PLAVIX,ASPIRIN) OR MEDICATIONSTHAT CONTAIN ASPIRIN OR IRON. STOP ASPIRIN ON JUN 13 DAY BEFORE PROCEDURE ThursdayJUN 17 ?? Begin a CLEAR LIQUID DIET when you wake up the day before the procedure avoiding RED colored liquids. A clear liquid diet includes: water,fruit juices without pulp, clear broth or bouillon, coffee or tea (without milk or non dairy creamer), Gatorade, carbonated and non-carbonated soft drinks, Stefano-Aid or flavored drinks, plain jello (without added fruits of toppings), popsicles, and hard candy. ?? NO SOLID FOODS should be eaten while on the CLEAR LIQUID DIET. STEP 1: 3:00PM Take 4 bisacodyl 5mg tablets with water. (These are purchased over the counter . STEP 2: 6:00PM Drink half of bowel prep. Drink 5 ounces. Follow by 5 8 ounce glasses of fluid over the next 5 hours. DRINK SLOWLY STEP 3: 6:00AM ThursdayJUN 18 , DAY OF PROCEDURE Drink 5 ounces of prep. DRINK SLOWLY Follow by 3 8 ounce glasses Of fluid over next 2 hours. Stools should be clear water without Particles of stool. DAY OF PROCEDURE ThursdayJUN 18 > You may have nothing BY MOUTH AFTER 9AM You may take your routine medications (except blood thinners) with a Sip of water. >Report to [facility] 2nd Floor Surgery Waiting room at NOON. Wear a mask. >Your procedure is scheduled for 1:00PM . >You will be given medication for this procedure. YOU MUST HAVE A SUPERVISOR WASH HOUSE PRESENT TO TAKE YOU HOME. >It is ultimately your responsibility to verify insurance coverage and obtain Referral if needed. IF YOU HAVE QUESTIONS PLEASE CALL THE OFFICE AT [phone]. documented in this encounter Plan of Treatment Upcoming Encounters Date Type Department Care Team (Late st Contact Info) Description 09/27/2024 2:20 PM MATERIAL MIXER Office Visit [facility] Neurosciences [address] [facility] [address] [place] [address] [place] [address] [facility] [address] [place] [address] 09/28/2024 1:00 PM MATERIAL MIXER Office Visit [facility] [place] [address] Michele Barrett, [address] [address] [place] [address] [address] [address] documented as of this encounter Goals Goal Patient Goal Type Associated Problems Recent Progress Patient-Stated? Author Blood Pressure < 140/90 Blood Pressure 102/69(2022 11:30 AM MATERIAL MIXER) No Melinda Newsome Quit smoking / using tobacco Lifestyle No Melinda Newsome documented as of this encounter Visit Diagnoses Diagnosis Special screening for malignant neoplasms, colon- Primary documented in this encounter Care Teams Transportation Coordinator Relationship Specialty Start Date End Date Anuj Miller Update Information PCP - General 10/26/18 01/18/20 Naya Arriola PA-C [facility] [place] [phone] PCP - General Physician Cutter Down 01/19/20 Stevenson Almanza MD Neurology 08/16/14 [place] [address] [place] [phone] Pulmonary Disease 02/14/16 documented as of this encounter
--- OUTSIDE RECORDS SUMMARY | 2024-09-18 09:31 | XMS_ITS | Encounter Summary ---
Author Organization [facility] Address [address] [place] [address] Care Team Providers Care Prototype Assembler Electronics Name Role Phone Stevenson Almanza MD Unavailable [phone] Dequan Baxter MD Unavailable [phone] Naya Arriola PA-C Primary Care Provider + Reason for Visit * Reason Onset Date Comments Results 06/18/2020 ultrasound Encounter Details Date Type Department Care Team (Late st Contact Info) Description 06/18/2020 Telephone [facility] [employer] [address] [address] [place] [address] [address] Results (ultrasound) Social History Tobacco Use Types Packs/Day Years [...] Telephone Encounter - Sanjuana Andrade RN - 06/18/2020 11:37 AM CDT Results called to patient Recall list for LFT in 4 months * Telephone Encounter - Sanjuana Andrade RN - 06/18/2020 11:37 AM CDT ----- Message from Mark Rose MD sent at 06/17/2020 9:30 PM CDT ----- RUQ US c/w fatty liver. No fibrosis Rec Weight loss and exercise recs as previously discussed Repeat LFTs in 4 months documented in this encounter Plan of Treatment Upcoming Encounters Date Type Department Care Team (Late st Contact Info) Description 09/27/2024 2:20 PM PURCHASE ANALYST Office Visit [facility] Neurosciences [address] [facility] [address] [place] [address] [place] [address] [facility] [address] [place] [address] 09/28/2024 1:00 PM PURCHASE ANALYST Office Visit [facility] [place] [address] [address] [facility] [address] [place] [address] [place] [address] [address] [facility] [address] [place] [address] documented as of this encounter Goals Goal Patient Goal Type Associated Problems Recent Progress Patient-Stated? Author Blood Pressure < 140/90 Blood Pressure 102/69(2022 11:30 AM PURCHASE ANALYST) No Melinda Newsome Quit smoking / using tobacco Lifestyle No Melinda Newsome documented as of this encounter Visit Diagnoses Not on filedocumented in this encounter Care Teams Prototype Assembler Electronics Relationship Specialty Start Date End Date Naya Arriola PA-C [address] [place] [phone] PCP - General Physician Framing Carpenter 01/19/20 Stevenson Almanza MD Neurology 08/16/14 [place] [address] [place] [phone] Pulmonary Disease 02/14/16 documented as of this encounter
--- OUTSIDE RECORDS SUMMARY | 2024-09-18 09:31 | XMS_ITS | Encounter Summary ---
Author Organization [facility] Health Address [address] [facility] [place] [address] Care Team Providers Care Sports Equipment Racker Name Role Phone Stevenson Almanza MD Unavailable [phone] Dequan Baxter MD Unavailable [phone] Naya Arriola PA-C Primary Care Provider + Encounter Details Date Type Department Care Team (Latest Contact Info) Description 04/19/2020 Travel Social History Tobacco Use Types Packs/Day [...] st Contact Info) Description 09/27/2024 2:20 PM INSTRUMENTATION INSTRUCTOR Office Visit [facility] Health Neurosciences [address] [facility] [address] [place] [address] [place] [address] [facility] [place] [address] [place] [address] 09/28/2024 1:00 PM INSTRUMENTATION INSTRUCTOR Office Visit [facility] [place] [address] [address] , [facility] [address] [place] [address] [place] [address] [facility] [address] [place] [address] documented as of this encounter Goals Goal Patient Goal Type Associated Problems Recent Progress Patient-Stated? Author Blood Pressure < 140/90 Blood Pressure 102/69(2022 11:30 AM INSTRUMENTATION INSTRUCTOR) No Melinda Newsome Quit smoking / using tobacco Lifestyle No Melinda Newsome documented as of this encounter Visit Diagnoses Not on filedocumented in this encounter Care Teams Sports Equipment Racker Relationship Specialty Start Date End Date Naya Arriola PA-C [address] [place] [address] PCP - General Physician Patient Accounts Coordinator 01/19/20 Stevenson Almanza MD Neurology 08/16/14 [place] [address] [facility] [address] [place] [address] Pulmonary Disease 02/14/16 documented as of this encounter
--- OUTSIDE RECORDS SUMMARY | 2024-09-18 09:32 | XMS_ITS | Encounter Summary ---
Author Organization [facility] Address [address] [facility] [place] [address] Care Team Providers Care Inspection And Testing Supervisor Name Role Phone Stevenson Almanza MD Unavailable [phone] Dequan Baxter MD Unavailable [phone] Anuj Schwartz MD Primary Care Provider [phone] Reason for Visit * Reason Onset Date Comments Scheduling 05/24/2018 Encounter Details Date Type Department Care Team (Late st Contact Info) Description 05/24/2018 Telephone [facility] [address] [facility], [address] [address] [place] [address] [address] Scheduling Social History Tobacco Use Types Packs/Day Years [...] Telephone Encounter - Sanjuana Andrade RN - 05/24/2018 11:26 AM CDT Left message on voicemail re due for amp documented in this encounter Plan of Treatment Upcoming Encounters Date Type Department Care Team (Late st Contact Info) Description 09/27/2024 2:20 PM STEEL DETAILER Office Visit [facility] Neurosciences [address] [address] [place] [address] [address] 09/28/2024 1:00 PM STEEL DETAILER Office Visit [facility] [place] [address] De[address] Barrett, [address] [address] [place] [address] [address] documented as of this encounter Goals Goal Patient Goal Type Associated Problems Recent Progress Patient-Stated? Author Blood Pressure < 140/90 Blood Pressure 102/69(2022 11:30 AM STEEL DETAILER) No Melinda Newsome Quit smoking / using tobacco Lifestyle No Melinda Newsome documented as of this encounter Procedures Procedure Name Priority Date/Time Associated Diagnosis Comments COMPREHENSIVE METABOLIC PANEL Routine 05/26/2018 7:42 AM CDT Abnormal liver function tests documented in this encounter Results * COMPREHENSIVE METABOLIC PANEL (05/26/2018 7:42 AM CDT) Glucose 89 65 - 99 mg/dL [facility] INSURANCE BILL BUN 16 6 - 24 mg/dL [facility] INSURANCE BILL Creatinine 0.91 0.57 - 1.00 mg/dL [facility] INSURANCE BILL eGFR by MDRD 72 >59 mL/min/1.7 3 [facility] INSURANCE BILL eGFR by MDRD 83 >59 mL/min/1.7 3 [facility] INSURANCE BILL BUN/Creatinine Ratio 18 9 - 23 [facility] INSURANCE BILL Sodium 143 134 - 144 mmol/L [facility] INSURANCE BILL Potassium 4.9 3.5 - 5.2 mmol/L [facility] INSURANCE BILL Chloride 102 96 - 106 mmol/L [facility] INSURANCE BILL CO2 22 20 - 29 mmol/L [facility] INSURANCE BILL Calcium 9.9 8.7 - 10.2 mg/dL [facility] INSURANCE BILL Protein Total 7.1 6.0 - 8.5 g/dL [facility] INSURANCE BILL Albumin 4.4 3.5 - 5.5 g/dL [facility] INSURANCE BILL Globulin Total 2.7 1.5 - 4.5 g/dL [facility] INSURANCE BILL Albumin/Globulin Ratio 1.6 1.2 - 2.2 [facility] INSURANCE BILL Bilirubin Total 0.3 0.0 - 1.2 mg/dL [facility] INSURANCE BILL Alkaline Phosphatase 60 39 - 117 IU/L [facility] INSURANCE BILL AST 18 0 - 40 IU/L [facility] INSURANCE BILL ALT 18 0 - 32 IU/L [facility] INSURANCE BILL Comment:FASTING Blood BLOOD SPECIMEN / Unknown 05/26/2018 7:42 AM CDT 05/26/2018 Narrative Resulting Agency Comment [facility] [address] [facility] [id number] Mark Rose MD LAB - CHEMISTRY ORD ERABLES [facility] INSURANCE BILL [address] [place] [address] documented in this encounter Visit Diagnoses Diagnosis Abnormal liver function tests- Primary Other abnormal blood chemistry documented in this encounter Care Teams Inspection And Testing Supervisor Relationship Specialty Start Date End Date Anuj Schwartz MD [address] [place] [address] PCP - General Family Medicine 12/08/16 10/25/18 Stevenson Almanza MD Neurology 08/16/14 [place] [address] [place] [address] Pulmonary Disease 02/14/16 documented as of this encounter
--- OUTSIDE RECORDS SUMMARY | 2024-09-18 09:32 | XMS_ITS | Encounter Summary ---
Author Organization [facility] Address [address] [facility] [place] [address] Care Team Providers Care Project Account Manager Name Role Phone Stevenson Almanza MD Unavailable [phone] Dequan Baxter MD Unavailable [phone] Anuj Schwartz MD Primary Care Provider [phone] Reason for Visit * Auth/Cert Specialty Diagnoses / Procedures Referred By Ernesto barrios Referred To Contact Procedures ESOPHAGOGASTRODUODENOSCOPY (EGD) DIAGNOSTIC Referral ID Status Reason Start Date Expiration Date Visits Re quested Visits Authorized [id number] 1 1 Encounter Details Date Type Department Care Team (Latest Contact Info) Description 12/07/2017 8:30 AM CDT - 12/07/2017 9:00 AM CDT Surgery [facility] [id number] [place] [address] [place] [address] [facility] [address] [address] ESOPHAGOGASTRODUODENOSCOPY (EGD) DIAGNOSTIC Surgery Details Date/Time Status Location OR Service Patient Class Case Class Case Type Trauma Case? 12/07/2017 8:30 AM Posted [facility] 01 Gastroenterology Surgery Day Care Elective > 5 days Panel 1 Procedure LRB Anes Op Region Wound Class Comments ESOPHAGOGASTRODUODENOSCOPY ( EGD) DIAGNOSTIC MAC Clean Contaminated Surgeon Surgeon Role Service [...] Sign Reading Time Taken Comments Blood Pressure 149/91 12/07/2017 8:58 AM CDT Pulse 66 12/07/2017 8:58 AM CDT Temperature 35.7 ??C (96.2 ??F) 12/07/2017 8:58 AM CD T Respiratory Rate 16 12/07/2017 8:58 AM CDT Oxygen Saturation 94% 12/07/2017 8:58 AM CDT Inhaled Oxygen Concentration - - Weight 117 kg (258 lb) 12/04/2017 2:47 PM CDT Height 162.6 cm (5' 4 ) 12/04/2017 2:47 PM CDT Body Mass Index 44.29 12/04/2017 2:47 PM CDT documented in this encounter Functional [...] daily as needed 12/05/2016 01/21/2021 amitriptyline (ELAVIL) 25 MG tablet Take 3 tablets by mouth at bedtime 90 tablet 11 11/20/2017 11/14/2018 amitriptyline (ELAVIL) 50 MG tablet TAKE 1 TABLET BY MOUTH EVERY NIGHT AT BEDTIME 30 tablet 2 10/20/2017 12/31/2017 aspirin 325 MG tablet Take 81 mg by mouth once daily 04/17/2020 atorvastatin (LIPITOR) 10 MG tablet Take 40 tablets by mouth once daily 05/09/2017 01/21/2021 Blood Glucose Monitoring Suppl (ONE TOUCH BASIC SYSTEM) W/DEVICE KIT Use once daily 1 Kit 0 12/06/2015 01/21/2021 citalopram (CELEXA) 40 MG tablet TAKE ONE TABLET BY MOUTH ONCE DAILY 90 Tab 3 08/11/2016 04/22/2022 ferrous sulfate 325 (65 FE) MG tablet Take 325 mg by mouth once daily 01/21/2021 fluticasone propionate (FLONASE) 50 MCG/ACT nasal spray USE TWO SPRAYS IN EACH NOSTRIL ONCE DAILY 3 Bottle 3 11/10/2016 01/17/2019 LINZESS 290 MCG capsule Take 1 capsule by mouth once daily 30 capsule 11 11/20/2017 11/14/2018 loratadine (CLARITIN) 10 MG tablet Take 10 mg by mouth once daily. 01/19/2020 meloxicam (MOBIC) 15 MG tablet TAKE ONE TABLET BY MOUTH ONCE DAILY 90 Tab 1 06/10/2016 04/22/2022 Nutritional Supplements (ESTROVEN PO) Take by mouth once daily 12/31/2017 [place]-3 Fatty Acids (FISH OIL) 1000 MG capsule Take 1 Cap by mouth once daily 12/31/2017 ondansetron, disintegrating, (ZOFRAN ODT) [address] ONE TABLET ON TONGUE AND DISSOLVE ONCE DAILY NEEDED FOR NAUSEA/VOMITING ALLOW TABLET TO DISSOLVE ON THE TONGUE 60 Tab 1 09/30/2016 12/31/2017 ONE TOUCH LANCETS MISC Use once daily 200 Each 1 09/02/2016 01/21/2021 ONETOUCH ULTRA TEST STRIPS test strip USE ONE STRIP TO TEST BLOOD SUGAR ONCE DAILY 200 Strip 1 12/15/2016 01/21/2021 VITAMIN E PO Take 400 mg by mouth once daily 01/17/2019 documented as of this encounter Progress Notes * Mark Rose MD - 12/07/2017 9:53 AM CDT TREY neg for h pylori Duodenal bx neg sprue Plan Get GE study Continue Dexilant 60mg Qam * Sanjuana Andrade RN - 12/07/2017 9:53 AM CDT Left message on voicemail to call for results and recommendations * Robyn Patterson RN - 12/07/2017 9:53 AM CDT Results given, scheduled ge study documented in this encounter H&P Notes * Mark Rose MD - 12/07/2017 8:23 AM CDT ENDOSCOPY PRE-PROCEDURE MEDICAL HISTORY & PHYSICAL Lucretia Rodriguez 52 y.o. female Ht 1.626 m (5' 4 ) Wt 117 kg (258 lb) BMI 44.29 kg/m2 History: Past Medical History: Diagnosis Date ??? Anemia ??? Depressive disorder, not elsewhere classified ??? Generalized anxiety disorder ??? H/O heart artery stent 2010 [id number] LAD( ) caden ??? H/O laparoscopic adjustable gastric banding 2009 ??? Heart attack 2010 ??? HTN (hypertension) ??? Hyperlipemia ??? Hypothyroid ??? Migraine ??? Multiple sclerosis 2005 Dr. Almanza ??? S/P tonsillectomy ??? Stomach ulcer ??? Tension headache Allergies Allergen Reactions ??? Latex ??? Sulfa Drugs ??? Adhesive Sensitivity Rash Prescriptions Prior to Admission Medication Sig Dispense Refill ??? ferrous sulfate 325 (65 FE) MG tablet Take 325 mg by mouth once daily ??? VITAMIN E PO Take 400 mg by mouth once daily ??? LINZESS 290 MCG capsule Take 1 capsule by mouth once daily 30 capsule 11 ??? amitriptyline (ELAVIL) 25 MG tablet Take 3 tablets by mouth at bedtime 90 tablet 11 ??? amitriptyline (ELAVIL) 50 MG tablet TAKE 1 TABLET BY MOUTH EVERY NIGHT AT BEDTIME 30 tablet 2 ??? atorvastatin (LIPITOR) 10 MG tablet Take 1 Tab by mouth once daily ??? levothyroxine (SYNTHROID) 88 MCG tablet TAKE ONE TABLET BY MOUTH ONCE DAILY BEFORE BREAKFAST 90Tab 3 ??? metoprolol tartrate (LOPRESSOR) 50 MG tablet TAKE ONE TABLET BY MOUTH TWICE A DAY 180 Tab 1 ??? ALPRAZolam (XANAX) 0.5 MG tablet Take 1 Tab by mouth 3 times daily as needed ??? fluticasone propionate (FLONASE) 50 MCG/ACT nasal spray USE TWO SPRAYS IN EACH NOSTRIL ONCE DAILY 3 Bottle 3 ??? lisinopril (PRINIVIL; ZESTRIL) 40 MG tablet TAKE ONE TABLET BY MOUTH ONCE DAILY 30 Tab 3 ??? ondansetron, disintegrating, (ZOFRAN ODT) [address] ONE TABLET ON TONGUE AND DISSOLVE ONCE DAILY NEEDED FOR NAUSEA/VOMITING ALLOW TABLET TO DISSOLVE ON THE TONGUE 60 Tab 1 ??? citalopram (CELEXA) 40 MG tablet TAKE ONE TABLET BY MOUTH ONCE DAILY 90 Tab 3 ??? meloxicam (MOBIC) 15 MG tablet TAKE ONE TABLET BY MOUTH ONCE DAILY 90 Tab 1 ??? metFORMIN (GLUCOPHAGE) 500 MG tablet TAKE ONE TABLET BY MOUTH ONCE DAILY 90 Tab 1 ??? [place]-3 Fatty Acids (FISH OIL) 1000 MG capsule Take 1 Cap by mouth once daily ??? Cholecalciferol (VITAMIN D) 1000 UNIT capsule Take 5,000 Units by mouth once daily ??? Venturi WirelessTOUCH ULTRA TEST STRIPS test strip USE ONE STRIP TO TEST BLOOD SUGAR ONCE DAILY 200 Strip 1 ??? ONE TOUCH LANCETS MISC Use once daily 200 Each 1 ??? Blood Glucose Monitoring Suppl (ONE Genomed SYSTEM) W/DEVICE KIT Use once daily 1 Kit 0 ??? Nutritional Supplements (ESTROVEN PO) Take by mouth once daily ??? loratadine (CLARITIN) 10 MG tablet Take 10 mg by mouth once daily. ??? aspirin 325 MG tablet Take 325 mg by mouth once daily. Current Facility-Administered Medications Medication Dose Route Frequency Provider Last Rate Last Dose ??? 0.9% NaCl infusion Intravenous Continuous Mark Rose MD ??? 0.9% NaCl injection 3 mL 3 mL Intracatheter pre-Procedure multiple Mark Rose MD Physicial Exam: Physical exam is normal ASA Evaluation and Anesthesia Plan: Anesthesia administered per Anesthesia Department Indication(s) for Procedure: RUQ pain, nausea, Hx PUD, GERD, dysphasia Procedure Planned: Endoscopy Mark Rose MD documented in this encounter Plan of Treatment Upcoming Encounters Date Type Department Care Team (Late st Contact Info) Description 09/27/2024 2:20 PM MOLD DRESSER Office Visit [facility] [address] [facility] [address] [place] [address] [place] [address] [facility] [address] [place] [address] 09/28/2024 1:00 PM MOLD DRESSER Office Visit [facility] [address] [address], Juan [address] [place] [address] [place] [address] [address] [facility] [address] [place] [address] documented as of this encounter Goals Goal Patient Goal Type Associated Problems Recent Progress Patient-Stated? Author Blood Pressure < 140/90 Blood Pressure 102/69(2022 11:30 AM MOLD DRESSER) No Melinda Newsome Quit smoking / using tobacco Lifestyle No Melinda Newsome documented as of this encounter Procedures Procedure Name Priority Date/Time Associated Diagnosis Comments HELICOBACTER PYLORI UREASE (STL) STAT 12/07/2017 8:49 AM CDT Abdominal pain, unspecified abdominal location PATHOLOGY TISSUE EXAM (STL) Routine 10/2017 8:47 AM CDT Abdominal pain, unspecified abdominal location ESOPHAGOGASTRODUODENOSCOPY (EGD) DIAGNOSTIC 12/07/2017 8:32 AM CDT EGD Routine 12/07/2017 8:24 AM CDT documented in this encounter Results * HELICOBACTER PYLORI UREASE (STL) (12/07/2017 8:49 AM CDT) Helicobacter pylori Urease Initial Negative Negative 12/08/2017 3:19 PM CDT [facility] Helicobacter pylori Urease Final Negative Negative 12/08/2017 3:19 PM CDT [facility] Comment:This is an appended report. These results have been appended to a previously preliminary verified report. Microbiology GASTRIC ANTRAL BIOPSY SPECIMEN / Unknown Collection / Unknown 12/07/2017 8:49 AM CDT 12/07/2017 1:40 PM CDT Mark Rose MD LAB - MICROBIOLOGY ORDERABLES [facility] [address] [place] [address] * GROSS + MICRO EXAM (STL) (12/07/2017 8:47 AM CDT) Pathologist [facility] Case Report Surgical Pathology Report ? Case: [id number] ? Authorizing Provider: ??Mark Rose MD ? Collected: ? 12/07/2017 08:47 AM ? Ordering Location: ? [facility] ?Received: ?12/07/2017 09:52 AM ? Pathologist: ? Adarsh Perkins MD ? Specimen: ?Duodenal Biopsy ? 12/08/2017 3:43 PM CDT [facility] Final Diagnosis 1. Duodenal biopsy: -- No pathologic diagnosis AB/ns 12/08/2017 3:43 PM CDT [facility] Gross Description The specimen is received fixed in formalin in one container labeled with the patient's name, Lucretia Rodriguez, and duodenal biopsy, and consists of four soft pink-dunaway tissue fragments ranging in greatest dimension from 0.3 to 0.1 cm. The specimen is submitted in toto in cassette A1. MR/kf 12/08/2017 3:43 PM CDT [facility] Microscopic Description The duodenal biopsy shows multiple fragments of duodenal mucosa with no significant inflammation and tall villi. No dysplasia or pathogenic microorganisms are seen. /janet 12/08/2017 3:43 PM CDT [facility] Disclaimer All histochemical and/or immunohistochemical results are interpreted with controls that demonstrate appropriate staining reactions before reporting results. Note on use of immunocytochemistry reagents: This test was developed and its performance characteristic determined by [facility], Department of Laboratory Medicine. It has not been cleared or approved by the U.S. Food and Drug Administration (FDA). The FDA has determined that such clearance or approval is not necessary. The test is used for clinical purpose. It should not be regarded as investigational or for research. This laboratory is certified to perform high complexity testing. 12/08/2017 3:43 PM CDT [facility] Embedded Images 12/08/2017 3:43 PM CDT [facility] Pathology/Cytolo gy DUODENAL BIOPSY SPECIMEN / Unknown 12/07/2017 8:47 AM CDT 12/07/2017 9:52 AM CDT Mark Rose MD LAB - PATHOLOGY/ETHEL AGUILLON ORDERABLES [facility] [address] [facility] [place] [address] * EGD (12/07/2017 8:24 AM CDT) Report [...] ? Mark Rose MD (Doctor) Referring MD: ?Anujkeyla Schwartz MD (Referring MD) Medicines: ? Monitored [...] the physician, the ? nurse and the wincher in the procedure room. Mental ? Status [...] Procedure Code(s): ? --- Professional --- ? 71111, Esophagogastroduode noscopy, flexible, transoral; with biopsy, ? single or multiple ? --- Technical --- ? 40265, Esophagogastroduode noscopy, flexible, transoral; with biopsy, ? single or multiple Diagnosis Code(s): ? --- Professional --- ? R10.11, Right upper quadrant pain ? K21.9, Gastro-esophageal reflux disease without esophagitis ? R11.0, Nausea ? --- Technical --- ? R10.11, Right upper quadrant pain ? K21.9, Gastro-esophageal reflux disease without esophagitis ? R11.0, Nausea CPT copyright 2015 [employer]. All rights reserved. The codes documented in this report are preliminary and upon coder operator review may be revised to meet current compliance requirements. Dr. Mark Rose MD ____ Mark Rose MD 12/07/2017 8:52:24 AM This report has been signed electronically. Number of Addenda: 0 Note Initiated On: 12/07/2017 8:24 AM [facility] 12/07/2017 8:24 AM CDT Mark Rose MD GI PROCEDURE ORDERA ANNAS [facility] [place] [address] documented in this encounter Visit Diagnoses Not on filedocumented in this encounter Administered Medications Inactive Administered Medications - up to 3 most recent administrations Medication Order MAR Action Action Date Dose Rate Site 0.9% NaCl infusion at 20 mL/hr, Intravenous, CONTINUOUS, Starting on Thu12/07/17 at 0845, Until Thu12/07/17 at 1054, Pre-procedure (GI) $ New Bag/Syringe 12/07/2017 8:31 AM CDT 20 mL/h r 0.9% NaCl injection 3 mL 3 mL, Intracatheter, PRE-PROCEDURE MULTIPLE, Starting on Thu12/07/17 at 0822, Until Thu12/07/17 at 1054, For Saline Lock flushes if one is inserted for Bronchoscopy/Endoscopy procedure., Pre-procedure (GI) documented in this encounter Active and Recently Administered Medications Times are shown in CDT. Scheduled Medication Order 12/05/2017 12/06/2017 12/07/2017 0.9% NaCl injection 3 mL 3 mL, Intracatheter, PRE-PROCEDURE MULTIPLE, Starting on Thu12/07/17 at 0822, Until Thu12/07/17 at 1054, For Saline Lock flushes if one is inserted for Bronchoscopy/Endoscopy procedure., Pre-procedure (GI) Continuous Medication Order 12/05/2017 12/06/2017 12/07/2017 0.9% NaCl infusion at 20 mL/hr, Intravenous, CONTINUOUS, Starting on Thu12/07/17 at 0845, Until Thu12/07/17 at 1054, Pre-procedure (GI) 0831 ($ New Bag/Syri nge - Provider: Abby Chapin RN) documented in this encounter Care Teams Project Account Manager Relationship Specialty Start Date End Date Anuj Schwartz MD [address] [place] [address] PCP - General Family Medicine 12/08/16 10/25/18 Stevenson Almanza MD Neurology 08/16/14 [place] [address] [address] Pulmonary Disease 02/14/16 documented as of this encounter
--- OUTSIDE RECORDS SUMMARY | 2024-09-18 09:32 | XMS_ITS | Encounter Summary ---
Author Organization [facility] Address [address] [place] [address] Care Team Providers Care Doctor Of Dental Surgery Name Role Phone Stevenson Almanza MD Unavailable [phone] Dequan Baxter MD Unavailable [phone] Anuj Miller Primary Care Provider Unavaila ble Reason for Visit * Reason Comments Refill Request Encounter Details Date Type Department Care Team (Late st Contact Info) Description 11/14/2018 Refill [facility] [address] [facility], [facility] [address] [place] [address] [place] [address] [facility] [address] [address] Refill Request Social History Tobacco [...] st Contact Info) Description 09/27/2024 2:[address] SUPERINTENDENT Office Visit [facility] Neurosciences [address] [place] [address] [place] [address] [facility] [address] [place] [address] 09/28/2024 1:[address] SUPERINTENDENT Office Visit [facility] Group - [address] [address], [address] [place] [address] [place] [address] [address] [place] [address] documented as of this encounter Goals Goal Patient Goal Type Associated Problems Recent Progress Patient-Stated? Author Blood Pressure < 140/90 Blood Pressure 102/69(2022 11:[address] SUPERINTENDENT) No Melinda Newsome Quit smoking / using tobacco Lifestyle No Melinda Newsome documented as of this encounter Visit Diagnoses Not on filedocumented in this encounter Care Teams Doctor Of Dental Surgery Relationship Specialty Start Date End Date Anuj Miller Update Information PCP - General 10/26/18 01/18/20 Stevenson Almanza MD Neurology 08/16/14 [place] [address] [place] [address] Pulmonary Disease 02/14/16 documented as of this encounter
--- OUTSIDE RECORDS SUMMARY | 2024-09-18 09:32 | XMS_ITS | Encounter Summary ---
Author Organization [facility] Address [address] [facility] [place] [address] Care Team Providers Care Rubber Flap Tuber Machine Operator Name Role Phone Stevenson Almanza MD Unavailable [phone] Dequan Baxter MD Unavailable [phone] Anuj Schwartz MD Primary Care Provider [phone] Reason for Visit * Reason Onset Date Comments LABS ONLY 05/24/2018 Encounter Details Date Type Department Care Team (Late st Contact Info) Description 05/24/2018 Telephone [facility] [address] [facility], [address] [address] [place] [address] [address] LABS ONLY Social History Tobacco [...] Telephone Encounter - Robyn Patterson RN - 05/24/2018 12:29 PM CDT GOING FOR LABS documented in this encounter Plan of Treatment Upcoming Encounters Date Type Department Care Team (Late st Contact Info) Description 09/27/2024 2:20 PM DESIGN RELEASE ENGINEER Office Visit [facility] Neurosciences [address] [address] [place] [address] [facility] [address] [place] [address] 09/28/2024 1:00 PM DESIGN RELEASE ENGINEER Office Visit [facility] - [address] [address] [address] [place] [address] [address] [facility] [address] [place] [address] documented as of this encounter Goals Goal Patient Goal Type Associated Problems Recent Progress Patient-Stated? Author Blood Pressure < 140/90 Blood Pressure 102/69(2022 11:30 AM DESIGN RELEASE ENGINEER) No Melinda Newsome Quit smoking / using tobacco Lifestyle No Melinda Newsome documented as of this encounter Visit Diagnoses Not on filedocumented in this encounter Care Teams Rubber Flap Tuber Machine Operator Relationship Specialty Start Date End Date Anuj Schwartz MD [address] [place] [address] PCP - General Family Medicine 12/08/16 10/25/18 Stevenson Almanza MD Neurology 08/16/14 [place] [address] [id number] Pulmonary Disease 02/14/16 documented as of this encounter
--- OUTSIDE RECORDS SUMMARY | 2024-09-18 09:32 | XMS_ITS | Encounter Summary ---
Author Organization [facility] [employer] Address [address] [place] [address] Care Team Providers Care Chair Inspector And Leveler Name Role Phone Stevenson Almanza MD Unavailable [phone] Dequan Baxter MD Unavailable [phone] Anuj Schwartz MD Primary Care Provider Reason for Referral * Radiology Services (Routine) - Closed Specialty Diagnoses / Procedures Referred By Contac t Referred To Contact Gastroenterology Diagnoses Nausea without vomiting Procedures NM GASTRIC EMPTYING Anuj Schwartz MD [address] [place] [address] [place] [address] [address] [place] [address] Referral ID Status Reason Start Date Expiration Date Visits Re quested Visits Authorized [id number] Closed 12/09/2017 06/07/2018 1 1 Encounter Details Date Type Department Care Team (Late st Contact Info) Description 12/09/2017 Orders Only [facility] [address] [place] [address], [address] [place] [address] [place] [address] [address] [place] [address] Nausea without vomiting Social History Tobacco Use Types Packs/Day Years [...] st Contact Info) Description 09/27/2024 2:20 PM SKIVER HAND Office Visit [facility] Neurosciences [address] [facility] [address] [place] [address] [place] [address] [facility] JUAN ALBERTO [address] [place] [address] 09/28/2024 1:00 PM SKIVER HAND Office Visit [facility] [place] [address] [address] Juan Alberto [address] [place] [address] [place] [address] [address] JUAN ALBERTO [address] [place] [address] documented as of this encounter Goals Goal Patient Goal Type Associated Problems Recent Progress Patient-Stated? Author Blood Pressure < 140/90 Blood Pressure 102/69(2022 11:30 AM SKIVER HAND) No Melinda Newsome Quit smoking / using tobacco Lifestyle No Leslye News[employer] documented as of this encounter Results * NM GASTRIC EMPTYING (12/16/2017 11:02 AM [...] 11:49 AM Mark Rose MD NM ORDERABLES documented in this encounter Visit Diagnoses Diagnosis Nausea without vomiting- Primary Nausea without vomiting documented in this encounter Care Teams Chair Inspector And Leveler Relationship Specialty Start Date End Date Anuj Schwartz MD [address] [place] [address] PCP - General Family Medicine 12/08/16 10/25/18 Stevenson Almanza MD Neurology 08/16/14 [place] [address] [address] Pulmonary Disease 02/14/16 documented as of this encounter
--- OUTSIDE RECORDS SUMMARY | 2024-09-18 09:32 | XMS_ITS | Encounter Summary ---
Author Organization [facility] Address [address] [facility] [place] [address] Care Team Providers Care Equipment Services Associate Name Role Phone Stevenson Almanza MD Unavailable [phone] Dequan Baxter MD Unavailable [phone] Anuj Schwartz MD Primary Care Provider [phone] Reason for Visit * Reason Onset Date Comments Encounter Opened In Error 05/24/2018 Encounter Details Date Type Department Care Team (Late st Contact Info) Description 05/24/2018 Orders Only [facility] [address] [place] [address] [place] [address] [address] Social History Tobacco Use Types Packs/Day Years [...] st Contact Info) Description 09/27/2024 2:20 PM PHYSICIAN INTERVENTIONAL CARDIOLOGIST Office Visit [facility] Neurosciences [address] [facility] [address] [place] [address] [place] [address] [facility] SARAN [address] [place] [address] 09/28/2024 1:00 PM PHYSICIAN INTERVENTIONAL CARDIOLOGIST Office Visit [facility] [place] [address] De[address] Barrett, [facility] [address] [place] [address] [place] [address] [address] [facility] [address] [place] [address] documented as of this encounter Goals Goal Patient Goal Type Associated Problems Recent Progress Patient-Stated? Author Blood Pressure < 140/90 Blood Pressure 102/69(2022 11:30 AM PHYSICIAN INTERVENTIONAL CARDIOLOGIST) No Melinda Newsome Quit smoking / using tobacco Lifestyle No Melinda Newsome documented as of this encounter Visit Diagnoses Not on filedocumented in this encounter Care Teams Equipment Services Associate Relationship Specialty Start Date End Date Anuj Schwartz MD [address] [place] [address] PCP - General Family Medicine 12/08/16 10/25/18 Stevenson Almanza MD Neurology 08/16/14 [place] [address] [address] Pulmonary Disease 02/14/16 documented as of this encounter
--- OUTSIDE RECORDS SUMMARY | 2024-09-18 09:32 | XMS_ITS | Encounter Summary ---
Author Organization [facility] Address [address] [facility] [place] [address] Care Team Providers Care Mate First Name Role Phone Stevenson Almanza MD Unavailable Dequan Baxter MD Unavailable [phone] Anuj Miller Primary Care Provider Unavaila ble Reason for Visit * Reason Comments Fatty Liver IBS constipation Encounter Details Date Type Department Care Team (Late st Contact Info) Description 12/03/2018 1:00 PM CDT Office Visit [facility] [address], [facility] [address] [place] [address] [place] [address] [facility] [address] [phone] HAMILTON (nonalcoholic steatohepatitis) (Primary Dx); Fatty liver; Abdominal pain, RUQ (right upper quadrant); Gastroesophageal reflux disease without esophagitis Social History [...] Sign Reading Time Taken Comments Blood Pressure 178/98 12/03/2018 1:30 PM CDT Pulse 88 12/03/2018 1:30 PM CDT Temperature - - Respiratory Rate - - Oxygen Saturation 97% 12/03/2018 1:30 PM CDT Inhaled Oxygen Concentration - - Weight 110.3 kg (243 lb 3.2 oz) 12/03/2018 1:30 PM CDT Height - - Body Mass Index 41.75 11/11/2018 3:34 PM MANAGER ASSEMBLY documented in this encounter Functional Status Functional [...] Progress Notes * Mark Rose MD - 12/03/2018 3:59 PM CDT Office Note Follow Up Appointment DEMOGRAPHICS: Patient: Lucretia Rodriguez : 1965 Referring Physician: Anuj Miller SUBJECTIVE: Lucretia Rodriguez is a most pleasant 53 year old female being seen for Hamilton, sphincter of Ode I dysfunction, delayed gastric emptying, chronic constipation, and GERD. Overall she is doing very well. Since her last office visit she has lost 15 lb. She is currently taking pantoprazole 40 mg q.day with good control of her reflux. She has rare dysphagia with solids. She does still have intermittent nausea 2-3 times per week that usually resolves within 30 min. This typically exacerbated by eating. Approximately once every 2 months she will vomit. She maintains compliance with a gastroparesis diet. She has daily bowel movements as long as she takes Linzess 290 mcg q.day. Recent liver function ana paula ts are normal. PAST HISTORY: Past Medical History: Diagnosis Date ??? Anemia ??? Anxiety ??? Depressive disorder, not elsewhere classified ??? Diabetes ??? Generalized anxiety disorder ??? H/O heart artery stent 2010 [id number] LAD( ) niry ??? H/O laparoscopic adjustable [...] which includes the following prescription(s): alprazolam, amitriptyline, aspirin, atorvastatin, one touch basic system, cephalexin, vitamin d, citalopram, durezol, ferrous sulfate, fluticasone propionate, levothyroxine, linaclotide, lisinopril, loratadine, melatonin, meloxicam, metformin, metoprolol tartrate, ondansetron, ondansetron, one touch lancets, onetouch ultra test strips, pantoprazole ec, pantoprazole ec, timolol maleate, victoza, vitamine, and zolpidem. REVIEW OF SYSTEMS: General ROS: [...] symptoms Dermatological ROS: negative PHYSICAL EXAM: BP 178/98 Pulse 88 Wt 110.3 kg (243 lb 3.2 oz) SpO2 97% BMI 41.75 kg/m2 Physical Exam: Gen: Alert, oriented, no distress HEENT: Nc/at, perrl/eomi, OP clear Neck: No significant LAD, nonpalpable thyroid Lungs: CTA bilaterally CV: RRR, s1s2, no murmurs heard Abdomen: Soft, mild epigastric tender, non distended, normal bowel sounds, no organomegaly Extremities: No edema LABS: Recent Labs Component Name 09/27/18 1054 05/26/18 0742 11/04/17 0750 06/10/17 0727 05/27/16 1417 11/12/15 1048 SODIUM 142 143 142 - 140 142 POTASSIUM 4.3 4.9 4.4 - 4.6 4.5 CHLORIDE 104 102 102 - 106 109* CO2 29 22 20 22 27 27 BUN 14 16 11 16 19 20 CREATININE 0.79 0.91 0.77 0.99 0.87 0.93 GLUCOSE 85 89 119* - 91 96 Recent Labs Component Name 06/10/17 0727 05/27/16 1417 11/12/15 1047 07/31/15 0936 03/28/15 1949 01/23/15 1320 WBC 5.8 8.1 7.7 7.2 8.5 7.7 HGB 14.8 13.6 14.2 13.9 15.1 14.0 PLTCOUNT - 229 214 202 189 235 MCV 86 86.0 87.5 88.5 87.5 88 INR 1.0 - - - - - Recent Labs Component Name 09/27/18 1054 05/26/18 0742 11/04/17 0750 06/10/17 0727 05/27/16 1417 11/12/15 1048 ALBUMIN 4.5 4.4 4.7 - 4.1 4.0 ALKPHOS 60 60 70 74 71 78 TBIL 0.4 0.3 0.3 - 0.5 0.5 AST 18 18 38 22 20 26 ALT 16 18 42* 23 33 34 Recent Labs Component Name 06/10/17 0727 03/28/15 1949 08/26/13 1214 08/07/13 1305 LIPASE - 138 166 162 FERRITIN 95 - - - IRON 94 - - - ASSESSMENT: Lucretia Rodriguez is a 53 year old female with Encounter Diagnoses Name Primary? HAMILTON (nonalcoholic steatohepatitis) Yes ??? Fatty liver ??? Abdominal pain, RUQ (right upper quadrant) ??? Gastroesophageal reflux disease without esophagitis . PLAN: 1. Hamilton. She has successfully lost 15 lb. I encouraged her to continue her goal of gradual weight loss. She will increase aerobic exercise. She should have liver function test monitored every 6 months. 2. GERD. She will continue pantoprazole 40 mg q.day. Her symptoms are well controlled. She will undergo a bone density scan given her chronic PPI usage. She should have a creatinine and vitamin-D level monitored every year. This can be checked with her next labs this fall. 3. Sphincter of Ode I dysfunction and gastroparesis. She will continue amitriptyline 75 mg q.day. She has minimal epigastric discomfort. She will maintain compliance with a gastroparesis diet. She had a prior ERCP with biliary sphincterotomy. I will see her back on a yearly basis. 4. Colorectal cancer screening. She has a history of polyps. She is due for surveillance colonoscopy in October,. Orders Placed This Encounter ??? DEXA BONE DENSITY AXIAL SKELETON ??? linaCLOtide (LINZESS) 290 MCG capsule ??? pantoprazole EC (PROTONIX) 40 MG tablet ??? amitriptyline (ELAVIL) 75 MG tablet I have discussed the above recommendations and their risks, benefits, and alternatives, with the patient and any family present, and all agreed with the plan. All questions were answered. documented in this encounter Plan of Treatment Upcoming Encounters Date Type Department Care Team (Late st Contact Info) Description 09/27/2024 2:20 PM MANAGER ASSEMBLY Office Visit [facility]iences [address] [facility] [address] [place] [address] [place] [address] [facility] [address] [place] [address] 09/28/2024 1:00 PM MANAGER ASSEMBLY Office [place] [facility] [place] [address] [facility] , Juan Alberto [address] [place] [address] [place] [address] [facility] [address] [place] [address] documented as of this encounter Goals Goal Patient Goal Type Associated Problems Recent Progress Patient-Stated? Author Blood Pressure < 140/90 Blood Pressure 102/69(2022 11:30 AM MANAGER ASSEMBLY) No Melinda Newsome Quit smoking / using tobacco Lifestyle No Melinda Newsome documented as of this encounter Visit Diagnoses Diagnosis HAMILTON (nonalcoholic steatohepatitis)- Primary Other chronic nonalcoholic liver disease Fatty liver Other chronic nonalcoholic liver disease Abdominal pain, RUQ (right upper quadrant) Abdominal pain, right upper quadrant Gastroesophageal reflux disease without esophagitis Esophageal reflux documented in this encounter Care Teams Mate First Relationship Specialty Start Date End Date Anuj Miller Update Information PCP - General 10/26/18 01/18/20 Stevenson Almanza MD Neurology 08/16/14 [place] [address] [facility] [address] [place] [address] Pulmonary Disease 02/14/16 documented as of this encounter
--- OUTSIDE RECORDS SUMMARY | 2024-09-18 09:32 | XMS_ITS | Encounter Summary ---
Author Organization [facility] Address [address] [facility] [place] [address] Care Team Providers Care Wheel Setter Name Role Phone Stevenson Almanza MD Unavailable [phone] Dequan Baxter MD Unavailable [phone] Anuj Miller Primary Care Provider Unavaila Naya Haas PA-C Primary Care Provider + Encounter Details Date Type Department Care Team (Late st Contact Info) Description 10/26/2018 Lab Requisition [facility] Care D[facility] [address] [place] [address] Anuj Schwartz MD [address] [place] [address] Social History Tobacco Use Types Packs/Day Years [...] st Contact Info) Description 09/27/2024 2:20 PM ANALYST MICROBIOLOGY LAB Office Visit [facility] Health Neurosciences [address] [facility] [address] [place] [address] [place] [address] [facility] JUAN ALBERTO [address] [place] [address] 09/28/2024 1:00 PM ANALYST MICROBIOLOGY LAB Office Visit [facility] [place] [address] De[address] Barrett, Juan Alberto [address] [place] [address] [place] [address] [address] JUAN ALBERTO [address] [place] [address] documented as of this encounter Goals Goal Patient Goal Type Associated Problems Recent Progress Patient-Stated? Author Blood Pressure < 140/90 Blood Pressure 102/69(2022 11:30 AM ANALYST MICROBIOLOGY LAB) No Melinda Newsome Quit smoking / using tobacco Lifestyle No Melinda Newsome documented as of this encounter Procedures Procedure Name Priority Date/Time Associated Diagnosis Comments DERMATOPATHOLOGY Routine 10/25/2018 12:0 0 AM ANALYST MICROBIOLOGY LAB documented in this encounter Results * DERMATOPATHOLOGY (10/25/2018 12:00 AM ANALYST MICROBIOLOGY LAB) Case Report Dermatopathology Report ? Case: [id number] ? Authorizing Provider: ??Anuj Schwartz MD ? Collected: ? 10/25/2018 12:00 AM ? Pathologist: ? Zahida Boswell MD ?Received: ?10/26/2018 11:27 AM ? Specimens: ?? A) - Skin, right top shoulder ? B) - Skin, right outer shoulder ? 9 1:02 PM [facility] DERMATOPATHOLOGY [facility]ORATORY Final Diagnosis Specimen A. 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 SKIN, right outer shoulder: NEVUS LIPOMATOSUS SUPERFICIALIS (D17.30) 9 1:02 PM [facility] DERMATOPATHOLOGY LABORATORY Clinical History A-B: Changing lesion. Check margins. 9 1:02 PM [facility] DERMATOPATHOLOGY LABORATORY Gross Description Specimen A: Received is one formalin filled container labeled with the patient's name and designated right top shoulder. The specimen consists of a shave biopsy measuring [id number], bisected. The margin is inked green. Jar 0. Specimen B: Received is one formalin filled container labeled with the patient's name and designated right outer shoulder. The specimen consists of a shave biopsy measuring [id number], bisected. The margin is inked green. Jar 0. 9 1:02 PM [facility] DERMATOPATHOLOGY LABORATORY Microscopic Description Specimen A. SKIN, right top shoulder: Sections reveal parakeratosis, acanthosis and keratinocyte dysmaturation which is most prominent in the lower epidermis. Focal nests are present in the dermis. The adjacent skin shows hyperkeratosis, papillomatosis, hypergranulosis, and acanthosis. These histological findings can be seen in a verruca vulgaris or a seborrheic keratosis. This lesion is present at the margin of the specimen. Specimen B. SKIN, right outer shoulder: There is a gently folded epidermis surrounding a connective tissue core in which fat and collagen are intermingled. 9 1:02 PM [facility] DERMATOPATHOLOGY LABORATORY Disclaimer An external and internal positive and negative controls are appropriate for the histochemical, immunohistochemical and immunofluorescence stain(s) in this case (if any), except where stated explicitly. The performance characteristics of the stain(s) cited in this report were developed and its performance characteristic determined by the Dermatopathology Laboratory at [facility], directed by Dr. Rich Robles. These tests need not be, and therefore are not, approved by the [place] Food and Drug Administration. The tests are used for clinical purposes. Billing Codes Specimen Charges Stain Charges 15979 [id number] 1 1 9 1:02 PM [facility] DERMATOPATHOLOGY LABORATORY Embedded Images 9 1:02 PM [facility] DERMATOPATHOLOGY LABORATORY Pathology/Cytology TISSUE SPECIMEN FROM SKIN / Unknown 10/25/2018 10/26/2018 11:27 AM ANALYST MICROBIOLOGY LAB Miscellaneous samples (specimen) TISSUE SPECIMEN FROM SKIN / Unknown 10/25/2018 10/26/2018 11:27 AM ANALYST MICROBIOLOGY LAB Anuj Schwartz MD LAB - PATHOLOGY/CYTO LOGY ORDERABLES DERMATOPATHOLOGY LABORATORY [facility] - Department of Dermatology [facility], 5th Floor Lab B [address] [phone] documented in this encounter Visit Diagnoses Not on filedocumented in this encounter Care Teams Wheel Setter Relationship Specialty Start Date End Date Anuj Miller Update Information PCP - General 10/26/18 01/18/20 Naya Arriola PA-C [address] [place] [address] PCP - General Physician Dobby Loom Chain Pegger 01/19/20 Stevenson Almanza MD Neurology 08/16/14 [place] [address] [place] [id number] Pulmonary Disease 02/14/16 documented as of this encounter
--- OUTSIDE RECORDS SUMMARY | 2024-09-18 09:32 | XMS_ITS | Encounter Summary ---
Author Organization [facility] Address [address] [place] [address] Care Team Providers Care Client Liaison Name Role Phone Stevenson Almanza MD Unavailable [phone] Dequan Baxter MD Unavailable [phone] Anuj Schwartz MD Primary Care Provider [phone] Reason for Visit * Reason Onset Date Comments LABS ONLY 09/01/2018 Encounter Details Date Type Department Care Team (Late st Contact Info) Description 09/01/2018 Telephone [facility] [address] [facility], [address] [address] [place] [address] [address] LABS ONLY Social History Tobacco [...] encounter Miscellaneous Notes * Addendum Note - Andrew Silva RN - 09/14/2018 2:46 PM CSTAddended by: ANDREW SILVA on: 09/14/2018 02:46 PM Modules accepted: Orders T OF SALE ASSOCIATE * Telephone Encounter - Sanjuana Andrade RN - 09/01/2018 2:52 PM CST Left message on voicemail due for CMP T OF SALE ASSOCIATE documented in this encounter Plan of Treatment Upcoming Encounters Date Type Department Care Team (Late st Contact Info) Description 09/27/2024 2:20 PM POINT OF SALE ASSOCIATE Office Visit [facility] Neurosciences [address] [address] [place] [address] [phone] 09/28/2024 1:00 PM POINT OF SALE ASSOCIATE Office Visit [facility] [place] [address] Michele Barrett, [address] [address] [place] [address] [address] [facility] [address] [place] [address] documented as of this encounter Goals Goal Patient Goal Type Associated Problems Recent Progress Patient-Stated? Author Blood Pressure < 140/90 Blood Pressure 102/69(2022 11:30 AM POINT OF SALE ASSOCIATE) No Melinda Newsome Quit smoking / using tobacco Lifestyle No Melinda Newsome documented as of this encounter Procedures Procedure Name Priority Date/Time Associated Diagnosis Comments COMPREHENSIVE METABOLIC PANEL Routine 09/27/2018 10:54 AM POINT OF SALE ASSOCIATE Fatty liver documented in this encounter Results * COMPREHENSIVE METABOLIC PANEL (09/27/2018 10:54 AM POINT OF SALE ASSOCIATE) Glucose 85 65 - 99 mg/dL [facility] Comment: ? Fasting reference interval BUN 14 7 - 25 mg/dL [facility] Creatinine 0.79 0.50 - 1.05 mg/dL [facility] Comment: For patients >49 years of age, the reference limit for Creatinine is approximately 13% higher for people identified as -[place]. eGFR by MDRD 85 > OR = 60 mL/min/1 .73m2 [facility] eGFR by MDRD 98 > OR = 60 mL/min/1 .73m2 [facility] BUN/Creatinine Ratio NOT APPLICABLE 6 - 22 (calc) [facility] Sodium 142 135 - 146 mmol/L [facility] Potassium 4.3 3.5 - 5.3 mmol/L [facility] Chloride 104 98 - 110 mmol/L [facility] CO2 29 20 - 32 mmol/L [facility] Calcium 9.2 8.6 - 10.4 mg/dL [facility] Protein Total 7.0 6.1 - 8.1 g/dL [facility] Albumin 4.5 3.6 - 5.1 g/dL [facility] Globulin Total 2.5 1.9 - 3.7 g/dL (calc) [facility] Albumin/Globulin Ratio 1.8 1.0 - 2.5 (calc) [facility] Bilirubin Total 0.4 0.2 - 1.2 mg/dL [facility] Alkaline Phosphatase 60 33 - 130 U/L [facility] AST 18 10 - 35 U/L [facility] ALT 16 6 - 29 U/L [facility] Comment: REPORT COMMENT: FASTING:YES Test Performed at: [facility] [address] [place], [place] ??[address] RAGINI EDWARDS DO,MPH Blood BLOOD SPECIMEN / Unknown 09/27/2018 10:54 AM POINT OF SALE ASSOCIATE 09/27/2018 10:55 AM POINT OF SALE ASSOCIATE Mark Rose MD LAB - CHEMISTRY ORD ERABLES [facility] [address] [place] [address] documented in this encounter Visit Diagnoses Diagnosis Fatty liver- Primary Other chronic nonalcoholic liver disease documented in this encounter Care Teams Client Liaison Relationship Specialty Start Date End Date Anuj Schwartz MD [address] [place] [address] PCP - General Family Medicine 12/08/16 10/25/18 Stevenson Almanza MD Neurology 08/16/14 [place] [address] [address] Pulmonary Disease 02/14/16 documented as of this encounter
--- OUTSIDE RECORDS SUMMARY | 2024-09-18 09:32 | XMS_ITS | Encounter Summary ---
Author Organization [facility] Address [address] [facility] [place] [address] Care Team Providers Care Social Staff Worker Name Role Phone Stevenson Almanza MD Unavailable [phone] Dequan Baxter MD Unavailable [phone] Anuj Schwartz MD Primary Care Provider [phone] Reason for Visit * Reason Onset Date Comments Encounter Opened In Error 05/24/2018 Encounter Details Date Type Department Care Team (Late st Contact Info) Description 05/24/2018 Orders Only [facility] [address] [place] [address] Robyn Patterson, RN Social History Tobacco Use Types Packs/Day Years [...] st Contact Info) Description 09/27/2024 2:20 PM PRODUCTION METAL SPRAYER Office Visit [facility] Neurosciences [address] [facility] [address] [place] [address] [place] [address] [facility] [address] [place] [address] 09/28/2024 1:00 PM PRODUCTION METAL SPRAYER Office Visit [facility] [place] [address] [facility] [address] [place] [address] [place] [address] [address] [facility] [address] [place] [address] documented as of this encounter Goals Goal Patient Goal Type Associated Problems Recent Progress Patient-Stated? Author Blood Pressure < 140/90 Blood Pressure 102/69(2022 11:30 AM PRODUCTION METAL SPRAYER) No Melinda Newsome Quit smoking / using tobacco Lifestyle No Melinda Newsome documented as of this encounter Visit Diagnoses Not on filedocumented in this encounter Care Teams Social Staff Worker Relationship Specialty Start Date End Date Anuj Schwartz MD [address] [place] [phone] PCP - General Family Medicine 12/08/16 10/25/18 Stevenson Almanza MD Neurology 08/16/14 [place] [address] [facility] [address] [place] [address] Pulmonary Disease 02/14/16 documented as of this encounter
--- OUTSIDE RECORDS SUMMARY | 2024-09-18 09:32 | XMS_ITS | Encounter Summary ---
Author Organization [facility] Address [address] [facility] [place] [address] Care Team Providers Care Proj Engineer Name Role Phone Stevenson Almanza MD Unavailable [phone] Dequan Baxter MD Unavailable [phone] Anuj Schwartz MD Primary Care Provider [phone] Reason for Referral * Radiology Services (Routine) - Closed Specialty Diagnoses / Procedures Referred By Contac t Referred To Contact MRI Diagnoses MS (multiple sclerosis) (HCC) Procedures [place] [address] [facility] [address] [address] Referral ID Status Reason Start Date Expiration Date Visits Re quested Visits Authorized [id number] Closed 12/31/2017 02/19/2018 1 1 Reason for Visit * Reason Comments Multiple Sclerosis Follow-up Encounter Details Date Type Department Care Team (Late st Contact Info) Description 12/31/2017 3:20 PM CDT Office Visit [facility] [address] [facility] [address] [address] [place] [address] [facility] [address] [address] MS (multiple sclerosis) (HCC) (Primary Dx) Social History Tobacco Use [...] Sign Reading Time Taken Comments Blood Pressure 164/102 12/31/2017 3:39 PM CDT Pulse 88 12/31/2017 3:39 PM CDT Temperature - - Respiratory Rate 14 12/31/2017 3:39 PM CDT Oxygen Saturation 98% 12/31/2017 3:39 PM CDT Inhaled Oxygen Concentration - - Weight 119.3 kg (263 lb) 12/31/2017 3:39 PM CDT Height 162.6 cm (5' 4 ) 12/31/2017 3:39 PM CDT Body Mass Index 45.14 12/31/2017 3:39 PM CDT documented in this encounter Functional [...] Instructions * Patient Instructions* Yolanda Burch - 12/31/2017 4:09 PM CDT Call physician if symptoms worsen or with any questions. Take Medications as prescribed. For descriptions of a variety of neurological conditions please visit: [email or web address] A RETAIL MARKETING MANAGER WILL CONTACT YOU TO SCHEDULE THE MRI. IF YOU DO NOT HEAR FROM THEM IN A COUPLE OF DAYS YOU CAN CALL THEM AT [phone]. documented in this encounter Progress Notes * Stevenson Almanza MD - 12/31/2017 4:01 PM CDT CC: MS IH: Yearly OV. No DMTs. No MS like events. No diplopia, Lhermitte's or bear hug. No weakness or numbness. No migraines. Using CPAP ROS: Bladder OK. Nocturia once or twice. Had left TKR last June Past Medical History: Diagnosis Date ??? Anemia ??? Depressive disorder, not elsewhere classified ??? Generalized anxiety disorder ??? H/O heart artery stent 2010 [id number] LAD( ) [facility] ??? H/O laparoscopic adjustable gastric banding 2009 ??? Heart attack 2010 ??? HTN (hypertension) ??? Hyperlipemia ??? Hypothyroid ??? Migraine ??? Multiple sclerosis 2005 Dr. Almanza ??? LISSETTE (obstructive sleep apnea) ??? S/P tonsillectomy ??? Stomach ulcer ??? Tension headache Outpatient Prescriptions Marked as Taking for the 12/31/17 encounter (Office Visit) with Stevenson Almanza MD Medication Sig Dispense Refill ??? melatonin 3 MG tablet Take 3 mg by mouth at bedtime ??? pantoprazole EC (PROTONIX) 40 MG tablet Take 1 tablet by mouth once daily ??? ondansetron (ZOFRAN) 8 MG tablet TAKE ONE TABLET BY MOUTH TWICE A DAY NEEDED FOR NAUSEA 60 tablet 11 ??? ferrous sulfate 325 (65 FE) MG tablet Take 325 mg by mouth once daily ??? VITAMIN E PO Take 400 mg by mouth once daily ??? LINZESS 290 MCG capsule Take 1 capsule by mouth once daily 30 capsule 11 ??? amitriptyline (ELAVIL) 25 MG tablet Take 3 tablets by mouth at bedtime 90 tablet 11 ??? atorvastatin (LIPITOR) 10 MG tablet Take 1 Tab by mouth once daily ??? levothyroxine (SYNTHROID) 88 MCG tablet TAKE ONE TABLET BY MOUTH ONCE DAILY BEFORE BREAKFAST 90Tab 3 ??? ONETOUCH ULTRA TEST STRIPS test strip USE ONE STRIP TO TEST BLOOD SUGAR ONCE DAILY 200 Strip 1 ??? metoprolol tartrate (LOPRESSOR) 50 MG [...] MOUTH ONCE DAILY 30 Tab 3 ??? ONE TOUCH LANCETS MISC Use once daily 200 Each 1 ??? citalopram (CELEXA) 40 MG tablet TAKE ONE TABLET BY MOUTH ONCE DAILY 90 Tab 3 ??? meloxicam (MOBIC) 15 MG tablet TAKE ONE TABLET BY MOUTH ONCE DAILY 90 Tab 1 ??? metFORMIN (GLUCOPHAGE) 500 MG tablet TAKE ONE TABLET BY MOUTH ONCE DAILY 90 Tab 1 ??? Blood Glucose Monitoring Suppl (ONE TOUCH BASIC SYSTEM) W/DEVICE KIT Use once daily 1 Kit 0 ??? loratadine (CLARITIN) 10 MG tablet Take 10 mg by mouth once daily. ??? aspirin 325 MG tablet Take 325 mg by mouth once daily. ??? Cholecalciferol (VITAMIN D) 1000 UNIT capsule Take 5,000 Units by mouth once daily Exam: BP 164/102 Pulse 88 Resp 14 Ht 1.626 m (5' 4 ) Wt 119.3 kg (263 lb) SpO2 98% BMI 45.14 kg/m2 Re check 120/80 Cognitively: Alert and oriented times 3. Attention and concentration, fund of knowledge, recent andremote memory and central language function are intact. Cranial Nerves: II: Full field of vision to confrontation. IIl, lV, Vl:Extraocular movements intact. PERRLA V: Normal motor and sensory function VII: Normal facial movement and symmetry VIII: Intact hearing to confrontation lX , X: Palate midline and elevates normally. Normal gag Xl: Normal shoulder shrug XII: Tongue midline and protrudes normally without atrophy Neck: Without bruits Motor: Normal tone, power and bulk Sensory: Intact to touch and vibration Muscle stretch reflexes symmetric at 2/2 at the biceps, triceps, brachioradialis, knees and ankles. Cerebellum: intact on finger to nose. Casual gait: normal station and gait ASSESSMENT: MS stable S/P TKR LISSETTE PLAN: Re image Yearly OV documented in this encounter Plan of Treatment Upcoming Encounters Date Type Department Care Team (Late st Contact Info) Description 09/27/2024 2:20 PM CORE COMPOSER MACHINE TENDER Office Visit [facility] Neurosciences [address] [facility] [address] [place] [phone] [place] [address] [facility] [address] [place] [address] 09/28/2024 1:00 PM CORE COMPOSER MACHINE TENDER Office Visit [facility] [place] [address] [address] Barrett, [facility] [address] [place] [address] [place] [address] [facility] [address] [place] [address] documented as of this encounter Goals Goal Patient Goal Type Associated Problems Recent Progress Patient-Stated? Author Blood Pressure < 140/90 Blood Pressure 102/69(2022 11:30 AM CORE COMPOSER MACHINE TENDER) No Melinda Newsome Quit smoking / using tobacco Lifestyle No Melinda Newsome documented as of this encounter Results * MRI BRAIN WWO CONTRAST (01/11/2018 1:47 PM CDT) Anatomical Region Laterality Modality Head Magnetic Resonan ce 01/11/2018 2:35 PM CDT Impressions 01/11/2018 3:44 PM CDT NO ACUTE PROCESS. SCATTERED PERIVENTRICULAR AND DEEP WHITE MATTER LESIONS. Edited by Farzaneh Duron on 01/11/2018 2:47 PM Narrative 01/11/2018 3:44 PM CDT MRI BRAIN WITH AND WITHOUT CONTRAST INDICATION: Multiple sclerosis TECHNIQUE: Multisequence, multiplanar sequences of the brain with and without contrast, Dotarem 20 mL was administered. FINDINGS: Prior from November 13, 2015. Scattered periventricular deep white matter changes are similar to the prior. No new lesions are seen. ??No diffusion restriction is seen to indicate ischemia. ??No mass, hemorrhage, or midline shift is seen. The ventricular size is normal. There are no extra-axial fluid collections. Flow void is seen in the major intracranial vessels. No abnormal enhancement is seen. The paranasal sinuses and mastoid air cells are clear. Procedure Note Sanket Martinez MD - 01/11/2018 MRI BRAIN WITH AND WITHOUT CONTRAST INDICATION: Multiple sclerosis TECHNIQUE: Multisequence, multiplanar sequences of the brain with and without contrast, Dotarem 20 mL was administered. FINDINGS: Prior from November 13, 2015. Scattered periventricular deep white matter changes are similar to the prior. No new lesions are seen. No diffusion restriction is seen to indicate ischemia. No mass, hemorrhage, or midline shift is seen. The ventricular size is normal. There are no extra-axial fluid collections. Flow void is seen in the major intracranial vessels. No abnormal enhancement is seen. The paranasal sinuses and mastoid air cells are clear. IMPRESSION NO ACUTE PROCESS. SCATTERED PERIVENTRICULAR AND DEEP WHITE MATTER LESIONS. Edited by Farzaneh Duron on 01/11/2018 2:47 PM Stevenson Almanza MD MR ORDERABLES documented in this encounter Visit Diagnoses Diagnosis MS (multiple sclerosis) (HCC)- Primary Multiple sclerosis MS (multiple sclerosis) (HCC) Multiple sclerosis documented in this encounter Care Teams Proj Engineer Relationship Specialty Start Date End Date Anuj Schwartz MD [address] [place] [phone] PCP - General Family Medicine 12/08/16 10/25/18 Stevenson Almanza MD Neurology 08/16/14 [place] [address] [address] Pulmonary Disease 02/14/16 documented as of this encounter
--- OUTSIDE RECORDS SUMMARY | 2024-09-18 09:32 | XMS_ITS | Encounter Summary ---
Author Organization [facility] Address [address] [facility] [place] [address] Care Team Providers Care Professor Of Biology Name Role Phone Stevenson Almanza MD Unavailable Dequan Baxter MD Unavailable Anuj Miller Primary Care Provider Unavaila ble Reason for Visit * Reason Comments Squamous Cell Carcinoma right shoulder Encounter Details Date Type Department Care Team (Late st Contact Info) Description 11/11/2018 2:30 PM PLIER WORKER Office Visit [facility] [address] [place], [place] [id number] Eliane Lantigua MD [address] [facility] [address] [place] [address] SCC (squamous cell carcinoma), shoulder, right (Primary Dx) Social History Tobacco Use Types [...] Sign Reading Time Taken Comments Blood Pressure 162/98 11/11/2018 3:34 PM PLIER WORKER Pulse 84 11/11/2018 3:34 PM PLIER WORKER Temperature - - Respiratory Rate - - Oxygen Saturation 96% 11/11/2018 3:34 PM PLIER WORKER Inhaled Oxygen Concentration - - Weight 114.8 kg (253 lb) 11/11/2018 3:34 PM PLIER WORKER Height 162.6 cm (5' 4 ) 11/11/2018 3:34 PM PLIER WORKER Body Mass Index 43.43 11/11/2018 3:34 PM PLIER WORKER documented in this encounter Functional Status Functional [...] encounter Patient Instructions * Patient Instructions* Dariana Go MD - 11/11/2018 4:00 PM PLIER WORKER Pre-Surgical Instruction Sheet 1. Expect to be here for at least an hour on the day of surgery. ? EAT BREAKFAST ? TAKE ALL YOUR REGULAR MEDICATIONS - unless otherwise directed by your physician ? TAKE YOUR ANTIBIOTICS ONE HOUR BEFORE YOUR SURGERY. ? BRING A LIST OF YOUR MEDICATIONS WITH YOU ? ANTIBIOTICS - if you have been prescribed antibiotics prior to surgery, please take them as instructed by the physician 2. WEAR loose fitting, comfortable clothing, PREFERABLY A BUTTON DOWN SHIRT. (To avoid pulling clothing over your surgical wound) 3. Bring reading material or other items to help pass the time away. (We have internet access if you own a laptop and would like to bring it to work on.) 4. DO NOT STOP BLOOD THINNING MEDICATIONS UNLESS INSTRUCTED TO DO SO BY YOUR SURGEON. This includesWarfarin, Coumadin, Aspirin, Plavix, and Pradaxa 5. Tylenol is a good alternative to take for headaches and pain, and can be taken throughout your surgery and postoperative recovery. 6. please wash the area with Hibiclens,an antiseptic soap,(you can purchase this over the counter) the night before and morning of your surgery. If you have any questions, please feel free to contact us at during office hours. R WORKER documented in this encounter Progress Notes * Dariana Go MD - 11/11/2018 3:58 PM CST Subjective: Lucretia Rodriguez is a 53 y.o. female who is referred by Dr. Schwartz for evaluation of a squamous cell carcinoma (supeficial focally invasive arising in an AK) on the Right shoulder. The patient reports this lesion present for not sure. Patient describes lesion as scaling;itching. Recurrent skin cancer: no Prior Treatment: no Past Medical History: Diagnosis Date ??? Anemia ??? Anxiety ??? Depressive disorder, not elsewhere classified ??? Diabetes ??? Generalized anxiety disorder ??? H/O heart artery stent 2010 [id number] LAD( ) [facility] ??? H/O laparoscopic adjustable gastric banding 2009 ??? Heart attack 2010 ??? HTN (hypertension) ??? Hyperlipemia ??? Hypertension ??? Hypothyroid ??? Migraine ??? Multiple sclerosis 2006 Dr. Almanza ??? LISSETTE (obstructive sleep apnea) ??? S/P tonsillectomy ??? Stomach ulcer ??? Tension headache Current Outpatient Prescriptions Medication Sig Dispense Refill ??? ALPRAZolam (XANAX) 0.5 MG tablet Take 1 Tab by mouth 3 times daily as needed ??? amitriptyline (ELAVIL) 25 MG tablet Take 3 tablets by mouth at bedtime 90 tablet 11 ??? aspirin 325 MG tablet [...] MOUTH ONCE DAILY 90 Tab 3 ??? DUREZOL 0.05 % ophthalmic suspension 1 ??? ferrous sulfate 325 (65 FE) MG tablet Take 325 mg by mouth once daily ??? fluticasone propionate (FLONASE) 50 MCG/ACT nasal spray USE TWO SPRAYS IN EACH NOSTRIL ONCE DAILY 3 Bottle 3 ??? levothyroxine (SYNTHROID) 88 MCG tablet TAKE ONE TABLET BY MOUTH ONCE DAILY BEFORE BREAKFAST 90Tab 3 ??? LINZESS 290 MCG capsule Take 1 capsule by mouth once daily 30 capsule 11 ??? lisinopril (PRINIVIL; ZESTRIL) 40 MG tablet TAKE ONE TABLET BY MOUTH ONCE DAILY 30 Tab 3 ??? loratadine (CLARITIN) 10 MG tablet Take 10 mg by mouth once daily. ??? melatonin 3 MG tablet Take 3 mg by mouth at bedtime ??? meloxicam [...] NEEDED FOR NAUSEA 60 tablet 11 ??? ondansetron (ZUPLENZ) 8 MG strip Dissolve 8 mg under the tongue every 6 hours as needed for Nausea/Vomiting ??? ONE TOUCH LANCETS MISC Use once daily 200 Each 1 ??? ONETOUCH ULTRA TEST STRIPS test strip USE ONE STRIP TO TEST BLOOD SUGAR ONCE DAILY 200 Strip 1 ??? pantoprazole EC (PROTONIX) 40 MG tablet Take 1 tablet by mouth once daily ??? timolol maleate (TIMOPTIC) 0.5 % ophthalmic solution INSTILL ONE DROP INTO THE AFFECTED EYE TWOTIMES D X 8 WEEKS THEN STOP 1 ??? VICTOZA 18 MG/3ML pen ??? VITAMIN E PO Take 400 mg by mouth once daily ??? zolpidem (AMBIEN) 5 MG tablet No current facility-administered medications for this visit. Allergies Allergen Reactions ??? Latex ??? Sulfa Drugs ??? Adhesive Sensitivity Rash Pre-Operative Risk Factors: Current Anticoagulants: aspirin;vitamin E Patient reports use of antibiotic for prior procedure: no Endocarditis / Rheumatic Fever hx: no Vascular graft: no Immunocompromised: no Prosthetic joint: yes (left knee 2017) Congenital heart defect: no Prosthetic heart valve: no Diabetic: yes Transplant: no Cardiac devices: Stent: yes. Pacemaker: no. Defibrillator: no Transmissible Diseases: HIV no HepC no no Patient reports prior problem with local anesthesia no Photoprotection for extended outdoor activities only Sun barr 1-5 in lifetime Tanning bed use never Tobacco use : no Occupation : Review of Systems Constitutional: negative Eyes: negative Ears, nose, mouth, throat, and face: negative Respiratory: negative Cardiovascular: negative Gastrointestinal: negative Genitourinary:negative Hematologic/lymphatic: negative Neurological: negative Behavioral/Psych: negative Objective: Physical Exam: GENERAL APPEARANCE: oriented and alert SKIN: Detailed skin exam of the face, eyelids, lips, ears, scalp, and neck is normal except for a 0.8 x 0.7 cm pink scaly papule located on the Right shoulder. NEUROLOGIC: motor sensory deficit No LYMPHATIC: head/neck None LUNGS normal work of breathing Pathologic Findings: A Diagnosis: squamous cell carcinoma Assessment and Plan: Diagnosis: squamous cell carcinoma, Right shoulder Plan: schedule Wide Local Excision with 0.5 cm margins Indication for Mohs Proposed closure: complex Indication for antibiotics: no Current Anticoagulants: aspirin;vitamin E Keflex prescribed for morning of surgery Patient to be scheduled with blood donor recruiter for FBSE - cephalexin (KEFLEX) 500 MG capsule; Please take four tabs the morning of surgery Dispense: 4 capsule; Refill: 0 Dariana Go MD Dermatology Resident PGY-2' Associated attestation - Eliane Lantigua MD - 11/14/2018 8:23 PM CDT I have seen and examined the patient with the resident and I agree with the findings and plan of care as documented by the resident. Date of Service: 11.11.18 Eliane Lantigua MD documented in this encounter Plan of Treatment Upcoming Encounters Date Type Department Care Team (Late st Contact Info) Description 09/27/2024 2:20 PM PLIER WORKER Office Visit [facility] [address] [facility] [address] [place] [phone] [place] [address] [facility] [address] [place] [phone] 09/28/2024 1:00 PM PLIER WORKER Office Visit [facility] - [address] [address] [facility] [address] [place] [address] [place] [address] [address] [facility] [address] [place] [address] documented as of this encounter Goals Goal Patient Goal Type Associated Problems Recent Progress Patient-Stated? Author Blood Pressure < 140/90 Blood Pressure 102/69(2022 11:30 AM PLIER WORKER) No Melinda Newsome Quit smoking / using tobacco Lifestyle No Melinda Newsome documented as of this encounter Visit Diagnoses Diagnosis SCC (squamous cell carcinoma), shoulder, right- Primary documented in this encounter Care Teams Professor Of Biology Relationship Specialty Start Date End Date Anuj Miller Update Information PCP - General 10/26/18 01/18/20 Stevenson Almanza MD Neurology 08/16/14 [place] [address] [facility] [address] [place] [address] Pulmonary Disease 02/14/16 documented as of this encounter
--- OUTSIDE RECORDS SUMMARY | 2024-09-18 09:32 | XMS_ITS | Encounter Summary ---
Author Organization [facility] Address [address] [place] [address] Care Team Providers Care Almond Paste Mixer Name Role Phone Stevenson Almanza MD Unavailable [phone] Dequan Baxter MD Unavailable [phone] Anuj Schwartz MD Primary Care Provider [phone] Reason for Visit * Auth/Cert Specialty Diagnoses / Procedures Referred By Ernesto barrios Referred To Contact Procedures ESOPHAGOGASTRODUODENOSCOPY (EGD) DIAGNOSTIC Referral ID Status Reason Start Date Expiration Date Visits Re quested Visits Authorized [id number] 1 1 Encounter Details Date Type Department Care Team (Late st Contact Info) Description 12/07/2017 8:36 AM CDT Anesthesia Event [facility] - Endoscopy Services [address] [place] [address] Dax Lebron, [address] [facility] [address] [place] [address] Stevenson Rae, SHIPPING TECHNICIAN-PARTS COUNTER SPECIALIST [address] [place] [address] Anesthesia Record Procedure Summary Procedure Name Responsible Anesthesiologist Anesthesia Start Time Anesthesia Stop Time ESOPHAGOGASTRODUODENOSCOPY ( EGD) DIAGNOSTIC Dax Lebron DO 12/07/17 0836 12/07/17 0849 Events Date Time Event Comment 12/07/2017 0832 0836 An Start 0836 Out OR Start Data 0837 PT Reassessment 0838 Time Out Anesthesia part icipated in timeout at the time documented in the record by nursing 0840 Electnc Sig 0849 Out OR Stop Data 0849 An Stop Meds Name Total lidocaine 2% (PF) injection (20 mg/mL) 1 00 mg propofol (DIPRIVAN) injection 10mg/ml (E NDO USE) 12 mL 0.9% NaCl infusion 0 mL * Agents Name O2 * Blood No blood administrations on file. Lines, Drains, and Airways Type Details Placement Removal Peripheral IV Date: 12/07/17; Time : 829; Orientation: Right; Placed By: Sparkle Hernandez RN; Tolerance: Well 12/07/17829 by Abby Hernandez RN 12/07/17 09 by Jossy Ramirez RN documented in this encounter Social History [...] of this encounter Progress Notes * Stevenson Rae APRN-PARTS COUNTER SPECIALIST - 12/07/2017 8:51 AM CDT ANESTHESIA POSTOP EVALUATION NOTE Procedure: ESOPHAGOGASTRODUODENOSCOPY (EGD) DIAGNOSTIC Lucretia Rodriguez is a 52 y.o. female Patient Vitals for the past 6 hrs: BP Temp Pulse Resp SpO2 SP02 Frequency O2 DEVICE Pain Scale/Observation Pain Rating Score #1 Pain Location Pain Orientation Pain Quality Functional Goal # Pain Intervention(s) Non-pharmacological interventions Sedation Level Additional pain sites? 12/07/17 0848 - - 71 - 100 % - - - - - - - - - - - - 12/07/17 0845 164/90 - - - - - - - - - - - - - - - - 12/07/17 0844 - - 68 - 100 % - - - - - - - - - - - - 12/07/17 0840 (!) 175/102 - - - - - - - - - - - - - - - - 12/07/17 0839 - - 69 - 94 % - - - - - - - - - - - - 12/07/17 0827 129/69 96.7 ??F 68 18 94 % Spot Check Room Air - - - - - - - - - - 12/07/17816 - - - - - - - N 4 Abdomen Right Aching 5 Non-pharmacological Rest;Distraction 1-Awakeand alert No Anesthesia Type: MAC * No Diagnosis Codes entered * Postop Diagnosis: See Surgeon Note Mental Status: awake Neuro Status: No numbess, tingling or visual disturbances Respiratory Function: natural Cardiac Function: stable Postop Pain: acceptable to the patient Postop Hydration: adequate Postop Nausea: none Assessment: no apparent anesthetic complications Patient Disposition: Release from Anesthesia Care documented in this encounter Consult Notes * Stevenson Rae, SHIPPING TECHNICIAN-PARTS COUNTER SPECIALIST - 12/07/2017 8:31 AM CDT ANESTHESIA PREOPERATIVE EVALUATION NOTE Procedure: ESOPHAGOGASTRODUODENOSCOPY (EGD) DIAGNOSTIC Vitals: Patient Vitals for the past 6 hrs: BP Temp Pulse Resp SpO2 SP02 Frequency O2 DEVICE Pain Scale/Observation Pain Rating Score #1 Pain Location Pain Orientation Pain Quality Functional Goal # Pain Intervention(s) Non-pharmacological interventions Sedation Level Additional pain sites? 12/07/17826 129/69 96.7 ??F 68 18 94 % Spot Check Room Air - - - - - - - - - - 12/07/17816 - - - - - - - N 4 Abdomen Right Aching 5 Non-pharmacological Rest;Distraction 1-Awakeand alert No ANESTHESIA PRE-EVALUATION NOTE Physical Exam: Orientation: Orientation X3 Airway/Mallampati Score: IV Mouth Opening Distance: 2.5 fingerwidths Neck ROM: full TM Distance: > 3 FB Teeth: normal Heart: regular rate rhythm Lungs: normal Abdomen Exam: obese Review of Systems: History of anesthetic complications: No GERD: GERD: Yes, poorly controlled Recent Chest Pain: No Diagnostic Tests: ECG(s) reviewed: Yes Lab(s) reviewed: Yes. ANESTHESIA PLAN ASA Score: 3 NPO Status: No solids since midnight and No liquids within 2 hours Anesthesia Plan: MAC Planned Induction: intravenous Planned Postop Destination: endo Anesthetic plan was discussed with: patient Anesthetic Plan discussion was: Consented BMI, Height, Weight Tobacco History Estimated body mass index is 44.29 kg/(m^2) as calculated from the following: Height as of this encounter: 1.626 m (5' 4 ). Weight as of this encounter: 117 kg (258 lb). History Smoking Status ??? Current Every Day Smoker ??? Packs/day: 0.50 ??? Years: 30.00 ??? Types: Cigarettes Smokeless Tobacco ??? Never Used Alcohol History Drug History History Alcohol Use No Comment: Rarely History Drug Use No Outpatient Medications: Inpatient Medications: No current outpatient prescriptions on file. Current Facility-Administered Medications Medication Dose Last Dose ??? 0.9% NaCl ??? 0.9% NaCl 3 mL Allergies: Allergies Allergen Reactions ??? Latex ??? Sulfa Drugs ??? Adhesive Sensitivity Rash Problem List: Patient Active Problem List Diagnosis Date Noted ??? BOONE (nonalcoholic steatohepatitis) 11/20/2017 Priority: Not Prioritized ??? Constipation 11/20/2017 Priority: Not Prioritized ??? Abdominal pain, [...] disorder ??? H/O heart artery stent 2010 [id number] LAD( ) [facility] ??? H/O laparoscopic adjustable [...] ENDOMETRIAL ABLATION 2006 for heavy menses. ??? ERCP 08/12/2013 ERCP ??? Knee Replacement Left ??? SYS LAP BAND 10.0 2009 ??? Tonsillectomy ??? TUBAL LIGATION, LAPAROSCOPIC ??? ULNAR NERVE RELEASE R side Lab Tests: Recent Labs Component Name 06/10/17 0727 05/27/16 1417 WBC 5.8 8.1 HGB 14.8 13.6 HCT 43.4 43.0 PLTCOUNT - 229 INR 1.0 - Recent Labs Component Name 11/04/17 0750 06/10/17 0727 NA - 143 SODIUM 142 - POTASSIUM 4.4 - CHLORIDE 102 - CO2 20 22 BUN 11 16 CREATININE 0.77 0.99 Recent Labs Component Name 11/04/17 0750 GLUCOSE 119* CALCIUM 9.6 ALT 42* AST 38 No results for input(s): HCG in the last 62593 hours. documented in this encounter Miscellaneous Notes * Anesthesia Transfer of Care - Stevenson RaeIBIS-PARTS COUNTER SPECIALIST - 12/07/2017 8:51 AM CDT ANESTHESIA TRANSFER OF CARE NOTE Today's Date: 12/07/2017 Date of : 1965 Patient: Lucretia Rodriguez Procedure(s): ESOPHAGOGASTRODUODENOSCOPY (EGD) DIAGNOSTIC Surgeon(s): Primary: Mark Rose MD Preop Diagnosis: * No Diagnosis Codes entered * * No Diagnosis Codes entered * . Allergies Allergen Reactions ??? Latex ??? Sulfa Drugs ??? Adhesive Sensitivity Rash Vitals: Patient Vitals for the past 3 hrs: BP Temp Pulse Resp SpO2 SP02 Frequency O2 DEVICE Pain Scale/Observation Pain Rating Score #1 Pain Location Pain Orientation Pain Quality Functional Goal # Pain Intervention(s) Non-pharmacological interventions Sedation Level Additional pain sites? 12/07/17 0848 - - 71 - 100 % - - - - - - - - - - - - 12/07/17 0845 164/90 - - - - - - - - - - - - - - - - 12/07/17 0844 - - 68 - 100 % - - - - - - - - - - - - 12/07/17 0840 (!) 175/102 - - - - - - - - - - - - - - - - 12/07/17 0839 - - 69 - 94 % - - - - - - - - - - - - 12/07/17 0827 129/69 96.7 ??F 68 18 94 % Spot Check Room Air - - - - - - - - - - 12/07/17 0817 - - - - - - - N 4 Abdomen Right Aching 5 Non-pharmacological Rest;Distraction 1-Awakeand alert No Lines, Drains, and Airways Type Details Placement Removal Peripheral IV 12/07/17; 0830; Right; Hand; Sparkle Hernandez RN; 22 Gauge ; b-duke; Anatomical Landmarks; 1; None; Well 12/07/17 0830 by Abby Hernandez RN Intraprocedure I/O Totals propofol (DIPRIVAN) injection 10mg/ml (ENDO USE) Volume 12 Patient Transfer Location: Endo Recovery Transport Airway: spontaneous respirations Complications: None Handoff [...] of report from the receiving PACUteam. ALEJANDRO Nath documented in this encounter Plan of Treatment Upcoming Encounters Date Type Department Care Team (Late st Contact Info) Description 09/27/2024 2:20 PM OFFICE ELECTRICIAN Office Visit [facility] [address] [phone] [place] [address] [phone] 09/28/2024 1:00 PM OFFICE ELECTRICIAN Office Visit [facility] [place] [address] Michele Barrett, [address] [address] [place] [address] [address] [address] documented as of this encounter Goals Goal Patient Goal Type Associated Problems Recent Progress Patient-Stated? Author Blood Pressure < 140/90 Blood Pressure 102/69(2022 11:30 AM OFFICE ELECTRICIAN) No Melinda Newsome Quit smoking / using tobacco Lifestyle No Melinda Newsome documented as of this encounter Visit Diagnoses Not on filedocumented in this encounter Administered Medications Inactive Administered Medications - up to 3 most recent administrations Medication Order MAR Action Action Date Dose Rate Site lidocaine hcl (PF) (XYLOCAINE MPF) 2 % injection PRN, Starting on Thu12/07/17 at 0842, Until Thu12/07/17 at 0849, Anesthesia Intra-op $ Given 12/07/2017 8:42 AM CDT 100 mg propofol (DIPRIVAN) injection CONTINUOUS PRN, Starting on Thu12/07/17 at 0842, Until Thu12/07/17 at 0849, Anesthesia Intra-op $ New Bag/Syringe 12/07/2017 8:42 AM CDT documented in this encounter Care Teams Almond Paste Mixer Relationship Specialty Start Date End Date Anuj Schwartz MD [address] [place] [phone] PCP - General Family Medicine 12/08/16 10/25/18 Stevenson Almanza MD Neurology 08/16/14 [place] [address] [address] Pulmonary Disease 02/14/16 documented as of this encounter
--- OUTSIDE RECORDS SUMMARY | 2024-09-18 09:32 | XMS_ITS | Encounter Summary ---
Author Organization [facility] Address [address] [place] [address] Care Team Providers Care Lathe Puller Name Role Phone Stevenson Almanza MD Unavailable Dequan Baxter MD Unavailable [phone] Anuj Schwartz MD Primary Care Provider [phone] Reason for Referral * Radiology Services (Routine) - Closed Specialty Diagnoses / Procedures Referred By Contac t Referred To Contact Gastroenterology Diagnoses Nausea without vomiting Procedures NM GASTRIC EMPTYING Anuj Schwartz MD [address] [place] [address] [place] [address] [facility] [address] NOON[address] [place] [address] Referral ID Status Reason Start Date Expiration Date Visits Re quested Visits Authorized [id number] Closed 12/09/2017 06/07/2018 1 1 Reason for Visit * Radiology Services (Routine) - Closed Specialty Diagnoses / Procedures Referred By Contac t Referred To Contact Gastroenterology Diagnoses Nausea without vomiting Procedures NM GASTRIC EMPTYING Anuj Schwartz MD [address] [place] [address] [place] [address] [facility] [address] [place] [address] Referral ID Status Reason Start Date Expiration Date Visits Re quested Visits Authorized [id number] Closed 12/09/2017 06/07/2018 1 1 Encounter Details Date Type Department Care Team (Latest Contact Info) Description 12/16/2017 7:27 AM CDT - 12/16/2017 11:59 PM CDT [facility] [address] [place] [address] [place] [address] [facility] [address] [place] [address] Discharge Disposition: Home or Self Care [...] daily 05/09/2017 01/21/2021 Blood Glucose Monitoring Suppl (Rev SYSTEM) W/DEVICE KIT Use once daily 1 [...] PO) Take by mouth once daily 12/31/2017 [place]-3 Fatty Acids (FISH OIL) 1000 MG capsule Take 1 Cap by mouth once daily 12/31/2017 ondansetron (ZOFRAN) 8 MG tablet TAKE ONE TABLET BY MOUTH TWICE A DAY NEEDED FOR NAUSEA 60 tablet 11 12/15/2017 01/20/2019 ondansetron, disintegrating, (ZOFRAN ODT) 8 MG tablet [...] tablet by mouth once daily 12/14/2017 01/17/2019 VITAMIN E PO Take 400 mg by mouth once daily 01/17/2019 documented as of this encounter Plan of Treatment Upcoming Encounters Date Type Department Care Team (Late st Contact Info) Description 09/27/2024 2:20 PM ELECTRONIC COMPONENT PROCESSOR Office Visit [facility] [phone] [place] [phone] [place] [address] [address] 09/28/2024 1:00 PM ELECTRONIC COMPONENT PROCESSOR Office Visit [facility] [place] [address] Michele Barrett, [address] [address] [place] [address] [address] [address] documented as of this encounter Goals Goal Patient Goal Type Associated Problems Recent Progress Patient-Stated? Author Blood Pressure < 140/90 Blood Pressure 102/69(2022 11:30 AM ELECTRONIC COMPONENT PROCESSOR) No Melinda Newsome Quit smoking / using tobacco Lifestyle No Melinda Newsome documented as of this encounter Procedures Procedure Name Priority Date/Time Associated Diagnosis Comments NM GASTRIC EMPTYING Routine 12/16/2017 1 1:02 AM CDT Nausea without vomiting documented in this encounter Results * NM GASTRIC EMPTYING [...] this encounter Visit Diagnoses Diagnosis Nausea without vomiting documented in this encounter Care Teams Lathe Puller Relationship Specialty Start Date End Date Anuj Schwartz MD [address] [place] [phone] PCP - General Family Medicine 12/08/16 10/25/18 Stevenson Almanza MD Neurology 08/16/14 [place] [address] [address] Pulmonary Disease 02/14/16 documented as of this encounter
--- OUTSIDE RECORDS SUMMARY | 2024-09-18 09:32 | XMS_ITS | Encounter Summary ---
Author Organization [facility] Address [address] [facility] [place] [address] Care Team Providers Care Applications Instructor Name Role Phone Stevenson Almanza MD Unavailable [phone] Dequan Baxter MD Unavailable [phone] Anuj Schwartz MD Primary Care Provider [phone] Reason for Visit * Reason Onset Date Comments Results 12/18/2017 Encounter Details Date Type Department Care Team (Late st Contact Info) Description 12/18/2017 Telephone [facility] [employer] [address] [facility], [address] [address] Sanjuana Andrade, CHARIS Results Social History Tobacco Use Types Packs/Day [...] Miscellaneous Notes * Telephone Encounter - Sanjuana Andrade, RN - 12/18/2017 12:00 PM CDT Results called to patient * Telephone Encounter - Sanjuana Andrade RN - 12/18/2017 12:00 PM CDT ----- Message from Mark Rose MD sent at 12/16/2017 10:28 PM CDT ----- GE study suggests gastroparesis Plan: Provide gastroparesis diet OV 6 weeks to f/u documented in this encounter Plan of Treatment Upcoming Encounters Date Type Department Care Team (Late st Contact Info) Description 09/27/2024 2:20 PM MEDICAL RECORDS ASSISTANT Office Visit [facility] Neurosciences [address] [address] [place] [address] [phone] 09/28/2024 1:00 PM MEDICAL RECORDS ASSISTANT Office Visit [facility] [place] [address] Michele Barrett, [facility] [address] [place] [address] [place] [address] [address] [facility] [address] [place] [address] documented as of this encounter Goals Goal Patient Goal Type Associated Problems Recent Progress Patient-Stated? Author Blood Pressure < 140/90 Blood Pressure 102/69(2022 11:30 AM MEDICAL RECORDS ASSISTANT) No Melinda Newsome Quit smoking / using tobacco Lifestyle No Melinda Newsome documented as of this encounter Visit Diagnoses Not on filedocumented in this encounter Care Teams Applications Instructor Relationship Specialty Start Date End Date Anuj Schwartz MD [address] [place] [address] PCP - General Family Medicine 12/08/16 10/25/18 Stevenson Almanza MD Neurology 08/16/14 [place] [address] [place] [address] Pulmonary Disease 02/14/16 documented as of this encounter
--- OUTSIDE RECORDS SUMMARY | 2024-09-18 09:32 | XMS_ITS | Encounter Summary ---
Author Organization [facility] Address [address] [facility] [place] [address] Care Team Providers Care Cdl Dedicated Truck Driver Name Role Phone Stevenson Almanza MD Unavailable [phone] Dequan Baxter MD Unavailable [phone] Anuj Schwartz MD Primary Care Provider [phone] Reason for Visit * Reason Onset Date Comments Results 09/29/2018 Encounter Details Date Type Department Care Team (Late st Contact Info) Description 09/29/2018 Telephone [facility] [address] [address] [place] [address] [address] Results Social History Tobacco Use Types Packs/Day [...] Telephone Encounter - Robyn Patterson RN - 09/29/2018 9:02 AM CST Left message with results and to call for OV ----- Message from Mark Rose MD sent at 09/28/2018 5:17 PM JUNIOR GRAPHIC DESIGNER ----- LFTs remain normal! Due for OV 11/2018 No new recs OR GRAPHIC DESIGNER documented in this encounter Plan of Treatment Upcoming Encounters Date Type Department Care Team (Late st Contact Info) Description 09/27/2024 2:20 PM JUNIOR GRAPHIC DESIGNER Office Visit [facility] Neurosciences [address] [facility] [address] [place] [address] [place] [address] [facility] [address] [place] [phone] 09/28/2024 1:00 PM JUNIOR GRAPHIC DESIGNER Office Visit [facility] [place] [address] Michele Barrett [facility] [address] [place] [phone] [place] [address] [address] [facility] [address] [place] [phone] documented as of this encounter Goals Goal Patient Goal Type Associated Problems Recent Progress Patient-Stated? Author Blood Pressure < 140/90 Blood Pressure 102/69(2022 11:30 AM JUNIOR GRAPHIC DESIGNER) No Melinda Newsome Quit smoking / using tobacco Lifestyle No Melinda Newsome documented as of this encounter Visit Diagnoses Not on filedocumented in this encounter Care Teams Cdl Dedicated Truck Driver Relationship Specialty Start Date End Date Anuj Schwartz MD [address] [place] [address] PCP - General Family Medicine 12/08/16 10/25/18 Stevenson Almanza MD Neurology 08/16/14 [place] [address] [place] [id number] Pulmonary Disease 02/14/16 documented as of this encounter
--- OUTSIDE RECORDS SUMMARY | 2024-09-18 09:32 | XMS_ITS | Encounter Summary ---
Author Organization [facility] Address [address] [place] [address] Care Team Providers Care Functional Architect Name Role Phone Stevenson Almanza MD Unavailable [phone] Dequan Baxter MD Unavailable [phone] Anuj Schwartz MD Primary Care Provider [phone] Reason for Visit * Auth/Cert Specialty Diagnoses / Procedures Referred By Ernesto t Referred To Contact Procedures ESOPHAGOGASTRODUODENOSCOPY (EGD) DIAGNOSTIC Referral ID Status Reason Start Date Expiration Date Visits Re quested Visits Authorized [id number] 1 1 Encounter Details Date Type Department Care Team (Latest Contact Info) Description 12/07/2017 8:04 AM CDT - 12/07/2017 9:53 AM CDT Hospital Encounter [facility] - Endoscopy Services [address] [place] [address] [place] [address] [facility] [address] NOONAN [address] [place] [address] Surgery General Discharge Disposition: Home or [...] Sign Reading Time Taken Comments Blood Pressure 147/87 12/07/2017 9:24 AM CDT Pulse 68 12/07/2017 9:24 AM CDT Temperature 35.7 ??C (96.2 ??F) 12/07/2017 8:58 AM CD T Respiratory Rate 16 12/07/2017 9:24 AM CDT Oxygen Saturation 96% 12/07/2017 9:24 AM CDT Inhaled Oxygen Concentration - - [...] PO) Take by mouth once daily 12/31/2017 Edgemont-3 Fatty Acids (FISH OIL) 1000 MG capsule [...] disorder ??? H/O heart artery stent 2010 [id number] LAD( ) [facility] ??? H/O laparoscopic adjustable gastric banding 2009 ??? Heart attack 2010 ??? HTN (hypertension) ??? Hyperlipemia ??? Hypothyroid ??? Migraine ??? Multiple sclerosis 2006 Dr. Almanza ??? S/P tonsillectomy ??? Stomach [...] MOUTH ONCE DAILY 90 Tab 1 ??? Edgemont-3 Fatty Acids (FISH OIL) 1000 MG capsule Take 1 Cap by mouth once daily ??? Cholecalciferol (VITAMIN D) 1000 UNIT capsule Take 5,000 Units by mouth once daily ??? PanteaTOUCH ULTRA TEST STRIPS test strip USE ONE [...] st Contact Info) Description 09/27/2024 2:20 PM CARTOGRAPHIC DRAFTER Office Visit [facility] [address] [facility] [address] [place] [address] [place] [address] [facility] [address] [place] [address] 09/28/2024 1:00 PM CARTOGRAPHIC DRAFTER Office Visit [facility] [place] [facility] [place] [address] [address], [address] [place] [address] [place] [address] [address] [place] [address] documented as of this encounter Goals Goal Patient Goal Type Associated Problems Recent Progress Patient-Stated? Author Blood Pressure < 140/90 Blood Pressure 102/69(2022 11:30 AM CARTOGRAPHIC DRAFTER) No Melinda Newsome Quit smoking / using [...] Final Negative Negative 12/08/2017 3:19 PM CDT [facility] Comment:This is an appended report. These results have been appended to a previously preliminary verified report. Microbiology GASTRIC ANTRAL BIOPSY SPECIMEN / Unknown Collection / Unknown 12/07/2017 8:49 AM CDT 12/07/2017 1:40 PM CDT Mark Rose MD LAB - MICROBIOLOGY ORDERABLES [facility] [address] [place] [address] * GROSS + MICRO EXAM (STL) (12/07/2017 8:47 AM CDT) Case Report Surgical Pathology Report ? Case: [id number] ? Authorizing Provider: ??Mark Rose MD ? Collected: ? 12/07/2017 08:47 AM ? Ordering Location: ? [facility] ?Received: ?12/07/2017 09:52 AM ? Pathologist: ? Adarsh Perkins MD ? Specimen: ?Duodenal Biopsy ? 12/08/2017 3:43 PM CDT [facility] Final Diagnosis 1. Duodenal biopsy: -- No pathologic diagnosis AB/ns 12/08/2017 3:43 PM CDT [facility] Gross Description The specimen is received fixed in formalin in one container labeled with the patient's name, Lucretia Rodriguez, and duodenal biopsy, and consists of four soft pink-dunaway tissue fragments ranging in greatest dimension from 0.3 to 0.1 cm. The specimen is submitted in toto in cassette A1. MR/kf 12/08/2017 3:43 PM CDT [facility] Microscopic Description The duodenal biopsy shows multiple fragments of duodenal mucosa with no significant inflammation and tall villi. No dysplasia or pathogenic microorganisms are seen. AB/ns 12/08/2017 3:43 PM CDT [facility] Disclaimer All histochemical and/or immunohistochemical results are interpreted with controls that demonstrate appropriate staining reactions before reporting results. Note on use of immunocytochemistry reagents: This test was developed and its performance characteristic determined by [facility], Department of Laboratory Medicine. It has not been cleared or approved by the U.S. Food and Drug Administration (FDA). The FDA has determined that such clearance or approval is not necessary. The test is used for clinical purpose. It should not be regarded as investigational or for research. This laboratory is certified to perform high complexity testing. 12/08/2017 3:43 PM CDT [facility] Embedded Images 12/08/2017 3:43 PM CDT [facility] Pathology/Cytolo gy DUODENAL BIOPSY SPECIMEN / Unknown 12/07/2017 8:47 AM CDT 12/07/2017 9:52 AM CDT Mark Rose MD LAB - PATHOLOGY/CYT OLOGY ORDERABLES [facility] [address] [place] [address] * EGD (12/07/2017 8:24 AM CDT) [...] the physician, the ? nurse and the hydro excavation operator in the procedure room. Mental ? [...] Procedure Code(s): ? --- Professional --- ? 42605, Esophagogastroduode noscopy, flexible, transoral; with biopsy, ? single or multiple ? --- Technical --- ? 91677, Esophagogastroduode noscopy, flexible, transoral; with biopsy, ? single or multiple Diagnosis Code(s): ? --- Professional --- ? R10.11, Right upper quadrant pain ? K21.9, Gastro-esophageal reflux disease without esophagitis ? R11.0, Nausea ? --- Technical --- ? R10.11, Right upper quadrant pain ? K21.9, Gastro-esophageal reflux disease without esophagitis ? R11.0, Nausea CPT copyright 2015 [employer]. All rights reserved. The codes documented in this report are preliminary and upon enforcement manager review may be revised to meet current compliance requirements. Dr. Mark Rose MD ____ Mark Rose MD 12/07/2017 8:52:24 AM This report has been signed electronically. Number of Addenda: 0 Note Initiated On: 12/07/2017 8:24 AM [facility] 12/07/2017 8:24 AM CDT Mark Rose MD GI PROCEDURE [place] [address] documented in this encounter Visit Diagnoses Diagnosis Abdominal pain, unspecified abdominal location documented in this encounter Administered Medications Inactive [...] RN) documented in this encounter Care Teams Functional Architect Relationship Specialty Start Date End Date Anuj Schwartz MD [address] [place] [address] PCP - General Family Medicine 12/08/16 10/25/18 Stevenson Almanza MD Neurology 08/16/14 [place] [address] [address] Pulmonary Disease 02/14/16 documented as of this encounter
--- OUTSIDE RECORDS SUMMARY | 2024-09-18 09:32 | XMS_ITS | Encounter Summary ---
Author Organization [facility] Address [address] [facility] [place] [address] Care Team Providers Care Employee Relations Director Name Role Phone Stevenson Almanza MD Unavailable [phone] Dequan Baxter MD Unavailable [phone] Anuj Schwartz MD Primary Care Provider [phone] Reason for Referral * Radiology Services (Routine) - Closed Specialty Diagnoses / Procedures Referred By Contac t Referred To Contact MRI Diagnoses MS (multiple sclerosis) (HCC) Procedures [place] [address] [address] Referral ID Status Reason Start Date Expiration Date Visits Re quested Visits Authorized [id number] Closed 12/31/2017 02/19/2018 1 1 Reason for Visit * Radiology Services (Routine) - Closed Specialty Diagnoses / Procedures Referred By Contac t Referred To Contact MRI Diagnoses MS (multiple sclerosis) (HCC) Procedures [place] [address] [facility] [address] [address] Referral ID Status Reason Start Date Expiration Date Visits Re quested Visits Authorized [id number] Closed 12/31/2017 02/19/2018 1 1 Encounter Details Date Type Department Care Team (Latest Contact Info) Description 01/11/2018 12:59 PM CDT - 01/11/2018 11:59 PM CDT Hospital Encounter [facility] [place] [address] [place], [place] [id number] [place] [address] [address] Discharge Disposition: Home or Self [...] at bedtime 90 tablet 11 11/20/2017 11/14/2018 aspirin 325 MG tablet Take 81 mg [...] FOR NAUSEA 60 tablet 11 12/15/2017 01/20/2019 ONE TOUCH LANCETS MISC Use once daily [...] st Contact Info) Description 09/27/2024 2:20 PM JOINER Office Visit [facility] [address] [address] [place] [phone] [place] [address] [facility] [address] [place] [address] 09/28/2024 1:00 PM JOINER Office Visit [facility] - [address] [address] [facility] [address] [place] [address] [place] [address] [address] [place] [address] documented as of this encounter Goals Goal Patient Goal Type Associated Problems Recent Progress Patient-Stated? Author Blood Pressure < 140/90 Blood Pressure 102/69(2022 11:30 AM JOINER) No Melinda Newsome Quit smoking / using tobacco Lifestyle No Melinda Newsome documented as of this encounter Procedures Procedure Name Priority Date/Time Associated Diagnosis Comments MRI BRAIN WWO CONTRAST Routine 01/11/2018 1:47 PM CDT MS (multiple sclerosis) (HCC) documented in this encounter Results * [...] encounter Visit Diagnoses Diagnosis MS (multiple sclerosis) (HCC) Multiple sclerosis documented in this encounter Administered Medications Inactive Administered Medications - up to 3 most recent administrations Medication Order MAR Action Action Date Dose Rate Site gadoterate meglumine (DOTAREM) injection Intravenous, CONTRAST ONCE, Starting on 01/11/18 at 1348, Until Thu01/12/18 at 0128 $ Given 01/11/2018 1:48 PM CDT 20 mL Right Hand documented in this encounter Care Teams Employee Relations Director Relationship Specialty Start Date End Date Anuj Schwartz MD [address] [place] [phone] PCP - General Family Medicine 12/08/16 10/25/18 Stevenson Almanza MD Neurology 08/16/14 [place] [address] [address] Pulmonary Disease 02/14/16 documented as of this encounter
--- OUTSIDE RECORDS SUMMARY | 2024-09-18 09:32 | XMS_ITS | Encounter Summary ---
Author Organization [facility] Address [address] [facility] [place] [address] Care Team Providers Care Manager Storage Name Role Phone Stevenson Almanza MD Unavailable [phone] Dequan Baxter MD Unavailable [phone] Anuj Schwartz MD Primary Care Provider [phone] Reason for Visit * Reason Onset Date Comments Results 05/28/2018 Encounter Details Date Type Department Care Team (Late st Contact Info) Description 05/28/2018 Telephone [facility] [address] [address] [place] [address] [address] Results Social History Tobacco Use [...] Telephone Encounter - Sanjuana Andrade RN - 05/28/2018 9:10 AM CDT Results called to patient * Telephone Encounter - Sanjuana Andrade RN - 05/28/2018 9:09 AM CDT ----- Message from Mark Rose MD sent at 05/27/2018 9:54 PM CDT ----- LFTs normal Rec Gradual weight loss OV and LFTs in 6 months documented in this encounter Plan of Treatment Upcoming Encounters Date Type Department Care Team (Late st Contact Info) Description 09/27/2024 2:20 PM ATMOSPHERIC DRIER TENDER Office Visit [facility] Neurosciences [address] [phone] [place] [address] [facility] [address] [place] [address] 09/28/2024 1:00 PM ATMOSPHERIC DRIER TENDER Office Visit [facility] [place] [address] [address], Juan Alber[address] [place] [address] [place] [address] [address] [facility] [address] [place] [address] documented as of this encounter Goals Goal Patient Goal Type Associated Problems Recent Progress Patient-Stated? Author Blood Pressure < 140/90 Blood Pressure 102/69(2022 11:30 AM ATMOSPHERIC DRIER TENDER) No Melinda Newsome Quit smoking / using tobacco Lifestyle No Melinda Newsome documented as of this encounter Visit Diagnoses Not on filedocumented in this encounter Care Teams Manager Storage Relationship Specialty Start Date End Date Anuj Schwartz MD [address] [place] [phone] PCP - General Family Medicine 12/08/16 10/25/18 Stevenson Almanza MD Neurology 08/16/14 Dequan Baxter MD [id number] [place] [address] Pulmonary Disease 02/14/16 documented as of this encounter
--- OUTSIDE RECORDS SUMMARY | 2024-09-18 09:32 | XMS_ITS | Encounter Summary ---
Author Organization [facility] Address [address] [place] [address] Care Team Providers Care Compressor Station Operator Name Role Phone Stevenson Almanza MD Unavailable [phone] Dequan Baxter MD Unavailable [phone] Anuj Schwartz MD Primary Care Provider [phone] Reason for Visit * Reason Comments Refill Request Encounter Details Date Type Department Care Team (Late st Contact Info) Description 11/16/2017 Refill [facility] [address] [place] [address] [address] [place] [address] [place] [address] [address] Refill Request Social History Tobacco Use Types Packs/Day Years Used Date Smoking Tobacco: Every Day Cigarettes 0.5 30 Smokeless Tobacco: Never Alcohol Use Standard Drinks/Week Comments Yes 0 (1 standard drink = 0.6 oz [...] st Contact Info) Description 09/27/2024 2:20 PM ALL SOURCE INTELLIGENCE ANALYST Office Visit [facility] Neurosciences [address] [facility] [address] [place] [address] [place] [address] [facility] [address] [place] [address] 09/28/2024 1:00 PM ALL SOURCE INTELLIGENCE ANALYST Office Visit [facility] - [address] [address], [facility] [address] [place] [address] [place] [address] [address] [facility] [address] [place] [address] documented as of this encounter Goals Goal Patient Goal Type Associated Problems Recent Progress Patient-Stated? Author Blood Pressure < 140/90 Blood Pressure 102/69(2022 11:30 AM ALL SOURCE INTELLIGENCE ANALYST) No Melinda Newsome Quit smoking / using tobacco Lifestyle No Melinda Newsome documented as of this encounter Visit Diagnoses Not on filedocumented in this encounter Care Teams Compressor Station Operator Relationship Specialty Start Date End Date Anuj Schwartz MD [address] [place] [phone] PCP - General Family Medicine 12/08/16 10/25/18 Stevenson Almanza MD Neurology 08/16/14 [place] [address] [address] Pulmonary Disease 02/14/16 documented as of this encounter
--- OUTSIDE RECORDS SUMMARY | 2024-09-18 09:32 | XMS_ITS | Encounter Summary ---
Author Organization [facility] Address [address] [facility] [place] [address] Care Team Providers Care Strategic Analyst Name Role Phone Stevenson Almanza MD Unavailable [phone] Dequan Baxter MD Unavailable [phone] Anuj Schwartz MD Primary Care Provider [phone] Reason for Visit * Reason Comments Abnormal Liver Function Tests Encounter Details Date Type Department Care Team (Late st Contact Info) Description 11/20/2017 2:15 PM CDT Office Visit [facility] [employer] [address] [place] [address] [place] [address] [address] Abdominal pain, RUQ (right upper quadrant) (Primary Dx); HAMILTON (nonalcoholic steatohepatitis); Chronic idiopathic constipation Social History Tobacco Use Types Packs/Day Years [...] Sign Reading Time Taken Comments Blood Pressure 161/105 11/20/2017 2:09 PM CDT Pulse 94 11/20/2017 2:09 PM CDT Temperature - - Respiratory Rate - - Oxygen Saturation - - Inhaled Oxygen Concentration - - Weight 117 kg (258 lb) 11/20/2017 2:09 PM CDT Height - - Body Mass Index 44.29 10/21/2017 3:51 PM NEUROPSYCHOLOGY DIVISION CHIEF documented in this encounter Functional Status Functional [...] this encounter Patient Instructions * Patient Instructions* Mark Rose MD - 11/20/2017 2:31 PM CDT Dexilant Samples. Take 1 tablet 30 minutes Before breakfast for 2 weeks Increased Amitriptyline to 75mg at bedtime Continue Alexi ROSE M.D. [address] OFFICE: [phone] [place], [place] [address] EXCHANGE: [phone] UPPER ENDOSCOPY >Please notify our office if you are taking a blood thinner (ie. Coumadin, Plavix) or medications that contain aspirin. STOP ASPIRIN on NOVEMBER 30 >If your insurance requires a referral from your primary care physician It is ultimately your responsibility to obtain the referral. YOU may have nothing TO EAT OR DRINK DAY OF THE PROCEDURE December 07 >You may take your routine medications (not blood thinners or aspirin) With a sip of water. >Report to the [facility] 2nd Floor Room 200 at 730 AM >Your procedure is scheduled for 830 AM >You will be given medication for this procedure. You MUST have a [place] [employer] M[employer]le Supervisor present to take you home. IF you have any questions please call the office at [phone]. documented in this encounter Progress Notes * Mark Rose MD - 11/20/2017 2:35 PM CDT Office Note Follow Up Appointment DEMOGRAPHICS: Patient: Lucretia Rodriguez : 1965 Referring Physician: Anuj Schwartz MD SUBJECTIVE: Lucretia Rodriguez is a most pleasant 52 y.o. female being seen for Follow-up of Hamilton, sphincter of Omar dysfunction, and chronic constipation. In regards to her sphincter of Omar dysfunction this is moderately well controlled on amitriptyline. She feels that since amitriptyline was started she has had less frequent and less intense right upper quadrant pain. She still has sporadic bouts that last nearly for an hour. At times is exacerbated by eating or movement. In regards to her HAMILTON her liver function tests are minimally elevated. SHe has a mildly elevated ALT of 42. At 1 point she has successfully lost 10 pounds. SHe underwent a knee replacement in June, and since then has gained 10 pounds which she relates to decreased activity. She does not drink alcohol. She denies any new medications. She has a new complaint today of chronic nausea. THis has been occurring on a near daily basis for the last year. She rarely vomits. HEr nausea is not associated with eating. She has a remote historyof peptic ulcer disease. She has been having increased reflux symptoms and a metallic taste in her mouth. She has occasional dysphagia but no impactions. She has not had a prior endoscopy. She has chronic constipation that is well controlled on Linzess 290 micrograms q.day. She has dailybowel movements to at times they do vary in consistency. PAST HISTORY: Past Medical History: Diagnosis Date ??? Anemia ??? Depressive disorder, not elsewhere classified ??? Generalized anxiety disorder ??? H/O heart artery stent 2010 [id number] LAD( ) caden ??? H/O laparoscopic adjustable [...] ENDOMETRIAL ABLATION 2005 for heavy menses. ??? ERCP 08/12/2013 ERCP ??? SYS LAP BAND 10.0 2009 ??? Tonsillectomy ??? TUBAL LIGATION, LAPAROSCOPIC ??? ULNAR NERVE RELEASE R side OUTPATIENT MEDICATIONS: Lucretia Rodriguez has a current medication list which includes the following prescription(s): vitamin e, linzess, amitriptyline, amitriptyline, atorvastatin, levothyroxine, onetouch ultra test strips, metoprolol tartrate, alprazolam, fluticasone propionate, lisinopril, ondansetron (disintegrating),one touch lancets, citalopram, meloxicam, metformin, one touch basic system, fish oil, aspirin, vitamin d, nutritional supplements, and loratadine. REVIEW OF SYSTEMS: General ROS: alert oriented [...] symptoms Dermatological ROS: negative PHYSICAL EXAM: BP 161/105 Pulse 94 Wt 117 kg (258 lb) BMI 44.29 kg/m2 Physical Exam: Gen: Alert, oriented, no distress HEENT: Nc/at, perrl/eomi, OP clear Neck: No significant LAD, nonpalpable thyroid Lungs: CTA bilaterally CV: RRR, s1s2, no murmurs heard Abdomen: Soft, moderate RUQ and mild LUQ tender, non distended, normal bowel sounds, no organomegaly Extremities: No edema LABS: Recent Labs Component Name 11/04/17 0750 05/27/16 1417 SODIUM 142 140 POTASSIUM 4.4 4.6 CHLORIDE 102 106 CO2 20 27 BUN 11 19 CREATININE 0.77 0.87 GLUCOSE 119* 91 Recent Labs Component Name 05/27/16 1417 WBC 8.1 HGB 13.6 PLTCOUNT 229 MCV 86.0 Recent Labs Component Name 11/04/17 0750 05/27/16 1417 ALBUMIN 4.7 4.1 ALKPHOS 70 71 TBIL 0.3 0.5 AST 38 20 ALT 42* 33 No results for input(s): AMYLASE, LIPASE, FERRITIN, IRON in the last 71636 hours. Invalid input(s): SATURATION ASSESSMENT: Lucretia Rodriguez is a 52 y.o. female with Encounter Diagnoses Name Primary? Abdominal pain, RUQ (right upper quadrant) Yes ??? HAMILTON (nonalcoholic steatohepatitis) . PLAN: 1. Sphincter of Ode dysfunction. She has moderate tenderness on exam. The symptoms have been improving on amitriptyline. I will increase her amitriptyline to 75 milligrams p.o. Q.h.s.. Her gallbladder has been prior removed. She has had a prior ERCP with biliary sphincterotomy. 2. Hamilton. This could also contribute to her intermittent right upper quadrant pain particularly Painthat is associated with bending. I have encouraged her to increase her aerobic exercise now that her knee has improved. I have encouraged her to set a goal for gradual weight loss. We will continue to monitor liver function tests every 6 months. 3. Chronic constipation. She trish continue Linzess 290 micrograms q.day. 4. Chronic nausea and GERD. Her nausea symptoms have been persistent for nearly a year. She has a history of peptic ulcer disease. I recommend that she undergo an upper endoscopy for further evaluation. I will try her on Dexilant 60 milligrams q.day. Samples were provided. Aspirin will be held 7 days prior to the procedure. 5. History of colon polyps. SHe underwent colonoscopy in 2014. The polyps were hyperplastic. She does not need a repeat colonoscopy until 2024. Orders Placed This Encounter ??? ENDOSCOPY ORDER ??? LINZESS 290 MCG capsule ??? amitriptyline (ELAVIL) 25 MG tablet I have discussed the above recommendations and their risks, benefits, and alternatives, with the patient and any family present, and all agreed with the plan. All questions were answered. documented in this encounter Plan of Treatment Upcoming Encounters Date Type Department Care Team (Late st Contact Info) Description 09/27/2024 2:20 PM NEUROPSYCHOLOGY DIVISION CHIEF Office Visit [facility] Health Neurosciences [address] [facility] [address] [place] [address] [place] [address] [facility] [address] [place] [address] 09/28/2024 1:00 PM NEUROPSYCHOLOGY DIVISION CHIEF Office Visit [facility] [place] [address] [address] , [facility] [address] [place] [address] [place] [address] [address] [address] documented as of this encounter Goals Goal Patient Goal Type Associated Problems Recent Progress Patient-Stated? Author Blood Pressure < 140/90 Blood Pressure 102/69(2022 11:30 AM NEUROPSYCHOLOGY DIVISION CHIEF) No Melinda Newsome Quit smoking / using tobacco Lifestyle No Melinda Newsome documented as of this encounter Visit Diagnoses Diagnosis Abdominal pain, RUQ (right upper quadrant)- Primary Abdominal pain, right upper quadrant HAMILTON (nonalcoholic steatohepatitis) Other chronic nonalcoholic liver disease Chronic idiopathic constipation Unspecified constipation documented in this encounter Care Teams Strategic Analyst Relationship Specialty Start Date End Date Anuj Schwartz MD [address] [place] [id number] PCP - General Family Medicine 12/08/16 10/25/18 Stevenson Almanza MD Neurology 08/16/14 [place] [address] [facility] [address] [place] [address] Pulmonary Disease 02/14/16 documented as of this encounter
--- OUTSIDE RECORDS SUMMARY | 2024-09-18 09:32 | XMS_ITS | Encounter Summary ---
Author Organization [facility] Address [address] [facility] [place] [address] Care Team Providers Care Master Police Detective Name Role Phone Stevenson Almanza MD Unavailable [phone] Dequan Baxter MD Unavailable [phone] Anuj Schwartz MD Primary Care Provider [phone] Reason for Visit * Reason Comments Refill Request Encounter Details Date Type Department Care Team (Late st Contact Info) Description 12/14/2017 Refill [facility] [address] [place] [address] [address] [place] [address] [place] [address] [address] Refill Request Social History Tobacco [...] st Contact Info) Description 09/27/2024 2:20 PM KEY ACCOUNT EXECUTIVE Office Visit [facility] Neurosciences [address] [facility] [address] [place] [address] [place] [address] [facility] SARAN [address] [place] [address] 09/28/2024 1:00 PM KEY ACCOUNT EXECUTIVE Office Visit [facility] Medical Group - [address] [address], [facility] [address] [place] [address] [place] [address] [address] [facility] [address] [place] [address] documented as of this encounter Goals Goal Patient Goal Type Associated Problems Recent Progress Patient-Stated? Author Blood Pressure < 140/90 Blood Pressure 102/69(2022 11:30 AM KEY ACCOUNT EXECUTIVE) No Melinda Newsome Quit smoking / using tobacco Lifestyle No Melinda Newsome documented as of this encounter Visit Diagnoses Not on filedocumented in this encounter Care Teams Master Police Detective Relationship Specialty Start Date End Date Anuj Schwartz MD [address] [place] [id number] PCP - General Family Medicine 12/08/16 10/25/18 Stevenson Almanza MD Neurology 08/16/14 [place] [address] [address] Pulmonary Disease 02/14/16 documented as of this encounter
--- OUTSIDE RECORDS SUMMARY | 2024-09-18 09:33 | XMS_ITS | Encounter Summary ---
Author Organization [facility] Address [address] [facility] [place] [address] Care Team Providers Care Drink Box Mechanic Name Role Phone Stevenson Almanza MD Unavailable [phone] Dequan Baxter MD Unavailable [phone] Anuj Schwartz MD Primary Care Provider [phone] Anuj Miller Primary Care Provider Unavaila Naya Haas PA-C Primary Care Provider + Reason for Visit * Reason Onset Date Comments MEDICATION REFILL 06/11/2017 Encounter Details Date Type Department Care Team (Late st Contact Info) Description 06/11/2017 Refill [facility] - Family Medicine [address] [place] [address] Sveta Rai MD [address] [place] [address] [address] MEDICATION REFILL Social History Tobacco Use Types [...] encounter Miscellaneous Notes * Telephone Encounter - Renetta Reveles - 06/11/2017 4:01 PM CDT Patient under care of Dr. Anuj Schwartz * Telephone Encounter - Yomaira Clements - 06/11/2017 3:43 PM CDT Lucretia Rodriguez Allergies Allergen Reactions ??? Latex ??? Sulfa Drugs ??? Adhesive Sensitivity Rash Requested Prescriptions Pending Prescriptions Disp Refills ??? metoprolol tartrate (LOPRESSOR) 50 MG tablet 180 Tab 1 Sig: Take 1 Tab by mouth 2 times daily Last Refill: 12/08/16 Last OV: 10/08/16 Next OV: none documented in this encounter Plan of Treatment Upcoming Encounters Date Type Department Care Team (Late st Contact Info) Description 09/27/2024 2:20 PM YARD DEMURRAGE CLERK Office Visit [facility] Health Neurosciences [address] [facility] [address] [place] [address] [place] [address] [facility] JUAN ALBERTO [address] [place] [address] 09/28/2024 1:00 PM YARD DEMURRAGE CLERK Office Visit [facility] [place] [address] Juan Alberto [address] [place] [address] [place] [address] [address] J[address] [place] [address] documented as of this encounter Goals Goal Patient Goal Type Associated Problems Recent Progress Patient-Stated? Author Blood Pressure < 140/90 Blood Pressure 102/69(2022 11:30 AM YARD DEMURRAGE CLERK) No Melinda Newsome Quit smoking / using tobacco Lifestyle No Melinda Newsome documented as of this encounter Visit Diagnoses Not on filedocumented in this encounter Care Teams Drink Box Mechanic Relationship Specialty Start Date End Date Anuj Schwartz MD [address] [place] [address] PCP - General Family Medicine 12/08/16 10/25/18 Anuj Miller Update Information PCP - General 10/26/18 01/18/20 Naya Arriola PA-C [address] [place] [address] PCP - General Physician Cleaner Carpet And Upholstery 01/19/20 Stevenson Almanza MD Neurology 08/16/14 [place] [address] [facility] [address] [place] [address] Pulmonary Disease 02/14/16 documented as of this encounter
--- OUTSIDE RECORDS SUMMARY | 2024-09-18 09:33 | XMS_ITS | Encounter Summary ---
Author Organization [facility] Address [address] [facility] [place] [address] Care Team Providers Care Core Java Software Engineer Name Role Phone Sveta Rai MD Primary Care Provider Stevenson Almanza MD Unavailable [phone] Dequan Baxter MD Unavailable [phone] Reason for Visit * Reason Onset Date Comments Follow-up 07/04/2016 Encounter Details Date Type Department Care Team (Late Contact Info) Description 07/04/2016 Telephone [facility] Medical [facility] - Family Medicine [address] [place] [address] Sveta Rai MD [address] [place] [address] [address] Follow-up Social History Tobacco Use Types Packs/Day Years [...] encounter Miscellaneous Notes * Telephone Encounter - Sol Phelps - 07/11/2016 2:39 PM CDT Verified receipt of APS form from [facility] retrievals with Dr. Mark VILLALBA. [facility] notified. * Telephone Encounter - Edith Cohn - 07/07/2016 11:41 AM CDT Informed her forms had not been received, gave her [phone] to fax to and i will handle them once they arrive. * Telephone Encounter - Renetta Reveles - 07/07/2016 11:36 AM CDT Calling again to check on the status of forms. Please return call. * Telephone Encounter - Genevieve Way - 07/04/2016 1:09 PM CDT Malcolm Cisneros [facility], states they faxed over a supplemental attending physician form yesterday and she needs to know if it was received. documented in this encounter Plan of Treatment Upcoming Encounters Date Type Department Care Team (Late st Contact Info) Description 09/27/2024 2:20 PM AFRICAN STUDIES PROFESSOR Office Visit [facility] Health Neurosciences [address] [address] [place] [address] [facility] [address] [place] [address] 09/28/2024 1:00 PM AFRICAN STUDIES PROFESSOR Office Visit [facility] - [address] [address], [facility] [address] [place] [address] [place] [address] [address] [address] documented as of this encounter Goals Goal Patient Goal Type Associated Problems Recent Progress Patient-Stated? Author Blood Pressure < 140/90 Blood Pressure 102/69(2022 11:30 AM AFRICAN STUDIES PROFESSOR) No Melinda Newsome Quit smoking / using tobacco Lifestyle No Melinda Newsome documented as of this encounter Visit Diagnoses Not on filedocumented in this encounter Care Teams Core Java Software Engineer Relationship Specialty Start Date End Date Sveta Rai MD PCP - General Internal Medicine 02/22/13 12/07/16 Stevenson Almanza MD Neurology 08/16/14 [place] [address] [address] Pulmonary Disease 02/14/16 documented as of this encounter
--- OUTSIDE RECORDS SUMMARY | 2024-09-18 09:33 | XMS_ITS | Encounter Summary ---
Author Organization [facility] Address [address] [facility] [place] [address] Care Team Providers Care Carbon Capture Power Plant Manager Name Role Phone Sveta Rai MD Primary Care Provider Stevenson Almanza MD Unavailable [phone] Dequan Baxter MD Unavailable [phone] Reason for Visit * Reason Onset Date Comments Letter for School or Work 06/11/2016 Dizziness 06/11/2016 Nausea 06/11/2016 Encounter Details Date Type Department Care Team (Late Contact Info) Description 06/11/2016 Telephone [facility] Medical [facility] - Family Medicine [address] [place] [address] Sveta Rai MD [address] [place] [address] [address] Letter for School or Work; Dizziness; Nausea Social History Tobacco Use Types Packs/Day Years [...] encounter Miscellaneous Notes * Telephone Encounter - Edith Cohn - 06/16/2016 12:14 PM CDT Letter faxed to the number provided. * Telephone Encounter - Edith Cohn - 06/16/2016 12:12 PM CDT Per patient should f/u with , and yes she will extend the date to 06/23. * Telephone Encounter - Renetta Reveles - 06/16/2016 10:36 AM CDT Patient states she is feeling dizzy but taking Tramadol which she is concerned that may be the reason she is feeling that way. Patient states the nausea comes when she eats. * Telephone Encounter - Young Rosales - 06/16/2016 10:34 AM CDT Pt is requested for her work letter to be extended till 06/23/16 due to feeling feeling fatigued nauseated and right side is still hurting. * Telephone Encounter - Barry Cason - 06/11/2016 1:07 PM CDT Pt called and stated that she need a letter sent to her employer stating that she is ok to return to work on 06-17-2016. The fax number the letter can be sent to is [phone]. documented in this encounter Plan of Treatment Upcoming Encounters Date Type Department Care Team (Late st Contact Info) Description 09/27/2024 2:20 PM TREASURY DIRECTOR Office Visit [facility] Neurosciences [address] [facility] [address] [place] [address] [place] [address] [facility] JUAN ALBERTO [address] [place] [address] 09/28/2024 1:00 PM TREASURY DIRECTOR Office Visit [facility] Medical Group - [address] [address], Juan Alberto [address] [place] [address] [place] [address] [address] [facility] [address] [place] [address] documented as of this encounter Goals Goal Patient Goal Type Associated Problems Recent Progress Patient-Stated? Author Blood Pressure < 140/90 Blood Pressure 102/69(2022 11:30 AM TREASURY DIRECTOR) No Melinda Newsome Quit smoking / using tobacco Lifestyle No Melinda Newsome documented as of this encounter Visit Diagnoses Not on filedocumented in this encounter Care Teams Carbon Capture Power Plant Manager Relationship Specialty Start Date End Date Sveta Rai MD PCP - General Internal Medicine 02/22/13 12/07/16 Stevenson Almanza MD Neurology 08/16/14 [place] [address] [facility] [address] [place] [address] Pulmonary Disease 02/14/16 documented as of this encounter
--- OUTSIDE RECORDS SUMMARY | 2024-09-18 09:33 | XMS_ITS | Encounter Summary ---
Author Organization [facility] Address [address] [facility] [place] [address] Care Team Providers Care Television News Video Editor Name Role Phone Sveta Rai MD Primary Care Provider Stevenson Almanza MD Unavailable [phone] Dequan Baxter MD Unavailable [phone] Reason for Visit * Reason Onset Date Comments MEDICATION REFILL 08/31/2016 Encounter Details Date Type Department Care Team (Late st Contact Info) Description 08/31/2016 Refill [facility] Medical [facility] - Family Medicine [address] [place] [address] Sveta Rai MD [address] [place] [address] [address] MEDICATION REFILL Social History Tobacco Use Types [...] * Telephone Encounter - Edith Cohn - 09/03/2016 9:28 AM CST Phoned into pharmacy. AL MANAGEMENT TRAINEE * Telephone Encounter - Rekha Newsome MA - 09/02/2016 8:19 AM CST Lucretia Rodriguez Requested Prescriptions Pending Prescriptions Disp Refills ??? ONE TOUCH LANCETS MISC 200 Each 1 Sig: Use once daily ??? zolpidem (AMBIEN) 5 MG tablet 30 Tab 1 Sig: Take 1 Tab by mouth nightly as needed for Insomnia Allergies Allergen Reactions ??? Latex ??? Sulfa Drugs Last refill- 12/06/15 with 1, 07/04/16 with 1 Last OV-06/09/16 Scheduled-09/19/16 AL MANAGEMENT TRAINEE documented in this encounter Plan of Treatment Upcoming Encounters Date Type Department Care Team (Late st Contact Info) Description 09/27/2024 2:20 PM RENTAL MANAGEMENT TRAINEE Office Visit [facility] Neurosciences [address] [facility] [address] [place] [address] [place] [address] [facility] JUAN ALBERTO [address] [place] [address] 09/28/2024 1:00 PM RENTAL MANAGEMENT TRAINEE Office Visit [facility] [place] [address] [address], Juan Alberto [address] [place] [address] [place] [address] [address] [place] [address] documented as of this encounter Goals Goal Patient Goal Type Associated Problems Recent Progress Patient-Stated? Author Blood Pressure < 140/90 Blood Pressure 102/69(2022 11:30 AM RENTAL MANAGEMENT TRAINEE) No Melinda Newsome Quit smoking / using tobacco Lifestyle No Melinda Newsome documented as of this encounter Visit Diagnoses Diagnosis Other insomnia documented in this encounter Care Teams Television News Video Editor Relationship Specialty Start Date End Date Sveta Rai MD PCP - General Internal Medicine 02/22/13 12/07/16 Stevenson Almanza MD Neurology 08/16/14 [place] [address] [id number] Pulmonary Disease 02/14/16 documented as of this encounter
--- OUTSIDE RECORDS SUMMARY | 2024-09-18 09:33 | XMS_ITS | Encounter Summary ---
Author Organization [facility] Address [address] [address] [place] [address] Care Team Providers Care Bottom Cager Name Role Phone Sveta Rai MD Primary Care Provider Stevenson Almanza MD Unavailable [phone] Dequan Baxter MD Unavailable [phone] Reason for Visit * Reason Comments Refill Request Encounter Details Date Type Department Care Team (Late Contact Info) Description 11/08/2016 Refill [facility] Medical [facility] - Family Medicine [address] [place] [address] Sveta Rai MD [address] [place] [address] DR NOONAN [address] [place] [address] Refill Request Social History Tobacco Use Types [...] * Telephone Encounter - Renetta Reveles - 11/10/2016 2:31 PM CST Lucretia Rodriguez Allergies Allergen Reactions ??? Latex ??? Sulfa Drugs ??? Adhesive Sensitivity Rash Requested Prescriptions Pending Prescriptions Disp Refills ??? fluticasone propionate (FLONASE) 50 MCG/ACT nasal spray [Pharmacy Med Name: FLUTICASONE PROP 50MCG SPRAY] 3 Sig: USE TWO SPRAYS IN EACH NOSTRIL ONCE DAILY Last Refill: 10/12/2016 Last OV: 10/08/16 RODGER Starr, 06/09/16 06/09/16 Dr. Darling Next OV:none GAGE LOAN SPECIALIST documented in this encounter Plan of Treatment Upcoming Encounters Date Type Department Care Team (Late st Contact Info) Description 09/27/2024 2:20 PM MORTGAGE LOAN SPECIALIST Office Visit [facility] [address] [facility] [address] [place] [address] [place] [address] [facility] [address] [place] [address] 09/28/2024 1:00 PM MORTGAGE LOAN SPECIALIST Office Visit [facility] [place] [address] [place] [address] [place] [address] [address] [place] [address] documented as of this encounter Goals Goal Patient Goal Type Associated Problems Recent Progress Patient-Stated? Author Blood Pressure < 140/90 Blood Pressure 102/69(2022 11:30 AM MORTGAGE LOAN SPECIALIST) No Melinda Newsome Quit smoking / using tobacco Lifestyle No Melinda Newsome documented as of this encounter Visit Diagnoses Not on filedocumented in this encounter Care Teams Bottom Cager Relationship Specialty Start Date End Date Sveta Rai MD PCP - General Internal Medicine 02/22/13 12/07/16 Stevenson Almanza MD Neurology 08/16/14 [place] [address] [place] [id number] Pulmonary Disease 02/14/16 documented as of this encounter
--- OUTSIDE RECORDS SUMMARY | 2024-09-18 09:33 | XMS_ITS | Encounter Summary ---
Author Organization [facility] Address [address] [facility] [place] [address] Care Team Providers Care Employment Law Specialist Name Role Phone Stevenson Almanza MD Unavailable Dequan Baxter MD Unavailable [phone] Anuj Schwartz MD Primary Care Provider [phone] Reason for Visit * Reason Comments Refill Request Encounter Details Date Type Department Care Team (Late st Contact Info) Description 12/15/2016 Refill [facility] Medical [facility] - Family Medicine [address] [place] [address] Sveta Rai MD [address] [place] [address] DR NOONAN [address] [place] [address] Refill Request Social History Tobacco Use Types [...] encounter Miscellaneous Notes * Telephone Encounter - Unique Truong - 12/15/2016 11:43 AM CDT Lucretia Rodriguez Requested Prescriptions Pending Prescriptions Disp Refills ??? ONETOUCH ULTRA TEST STRIPS test strip [Pharmacy Med Name: ONETOUCH ULTRA TEST STRIPS] 200 Strip1 Sig: USE ONE STRIP TO TEST BLOOD SUGAR ONCE DAILY Allergies Allergen Reactions ??? Latex ??? Sulfa Drugs ??? Adhesive Sensitivity Rash Last refill- 09/02/16 Last OV-06/09/16 Future OV-none documented in this encounter Plan of Treatment Upcoming Encounters Date Type Department Care Team (Late st Contact Info) Description 09/27/2024 2:20 PM HOSPITAL UNIT CLERK Office Visit [facility] Neurosciences [address] [facility] [address] [place] [address] [place] [address] [facility] [address] [place] [address] 09/28/2024 1:00 PM HOSPITAL UNIT CLERK Office Visit [facility] [place] [address] [address], Juan Alberto [address] [place] [address] [place] [address] [address] [place] [address] documented as of this encounter Goals Goal Patient Goal Type Associated Problems Recent Progress Patient-Stated? Author Blood Pressure < 140/90 Blood Pressure 102/69(2022 11:30 AM HOSPITAL UNIT CLERK) No Melinda Newsome Quit smoking / using tobacco Lifestyle No Melinda Newsome documented as of this encounter Visit Diagnoses Not on filedocumented in this encounter Care Teams Employment Law Specialist Relationship Specialty Start Date End Date Anuj Schwartz MD [address] [place] [address] PCP - General Family Medicine 12/08/16 10/25/18 Stevenson Almanza MD Neurology 08/16/14 [place] [address] [place] [address] Pulmonary Disease 02/14/16 documented as of this encounter
--- OUTSIDE RECORDS SUMMARY | 2024-09-18 09:33 | XMS_ITS | Encounter Summary ---
Author Organization [facility] Health Address [address] [place] [address] Care Team Providers Care Test Driller Name Role Phone Stevenson Almanza MD Unavailable [phone] Dequan Baxter MD Unavailable [phone] Anuj Schwartz MD Primary Care Provider [phone] Encounter Details Date Type Department Care Team (Latest Contact Info) Description 09/15/2017 Hospital Outpatient Visit [facility] Gastroenterology and Hepatology [address] [place] [address] Neena Flores MD [address] [place] [address] Discharge Disposition: Home or Self Care Social [...] st Contact Info) Description 09/27/2024 2:20 PM PSYCHIATRIC CLINICAL NURSE SPECIALIST Office Visit [facility] Neurosciences [address] [facility] [address] [place] [address] [place] [address] [facility] [address] [place] [address] 09/28/2024 1:00 PM PSYCHIATRIC CLINICAL NURSE SPECIALIST Office Visit [facility] [place] [address] [address], [facility] [address] [place] [address] [place] [address] [address] [facility] [address] [place] [address] documented as of this encounter Goals Goal Patient Goal Type Associated Problems Recent Progress Patient-Stated? Author Blood Pressure < 140/90 Blood Pressure 102/69(2022 11:30 AM PSYCHIATRIC CLINICAL NURSE SPECIALIST) No Melinda Newsome Quit smoking / using tobacco Lifestyle No Melinda Newsome documented as of this encounter Visit Diagnoses Not on filedocumented in this encounter Care Teams Test Driller Relationship Specialty Start Date End Date Anuj Schwartz MD [address] [place] [id number] PCP - General Family Medicine 12/08/16 10/25/18 Stevenson Almanza MD Neurology 08/16/14 Dequ[place] [id number] [place] [address] Pulmonary Disease 02/14/16 documented as of this encounter
--- OUTSIDE RECORDS SUMMARY | 2024-09-18 09:33 | XMS_ITS | Encounter Summary ---
Author Organization [facility] Address [address] [facility] [place] [address] Care Team Providers Care [facility] Name Role Phone Sveta Rai MD Primary Care Provider Stevenson Almanza MD Unavailable [phone] Dequan Baxter MD Unavailable [phone] Reason for Visit * Reason Comments Refill Request Encounter Details Date Type Department Care Team (Late Contact Info) Description 06/08/2016 Refill [facility] Medical [facility] - Family Medicine [address] [place] [address] Sveta Rai MD [address] [place] [address] DR NOONAN [address] [place] [address] Refill Request Social History Tobacco Use Types [...] * Telephone Encounter - Edith Cohn - 06/09/2016 11:54 AM CDT Last Refill: 03/06/16 Last OV: Upcoming OV: 08/2016 documented in this encounter Plan of Treatment Upcoming Encounters Date Type Department Care Team (Late st Contact Info) Description 09/27/2024 2:20 PM CENTRAL STERILIZATION TECHNICIAN Office Visit [facility] Neurosciences [address] [facility] [address] [place] [address] [place] [address] [facility] [address] [place] [address] 09/28/2024 1:00 PM CENTRAL STERILIZATION TECHNICIAN Office Visit [facility] Medical Group - [address] [address] , [address] [address] [place] [address] [facility] [address] [place] [address] documented as of this encounter Goals Goal Patient Goal Type Associated Problems Recent Progress Patient-Stated? Author Blood Pressure < 140/90 Blood Pressure 102/69(2022 11:30 AM CENTRAL STERILIZATION TECHNICIAN) No Melinda Newsome Quit smoking / using tobacco Lifestyle No Melinda Newsome documented as of this encounter Visit Diagnoses Not on filedocumented in this encounter Care Teams [facility] Relationship Specialty Start Date End Date Sveta Rai MD PCP - General Internal Medicine 02/22/13 12/07/16 Stevenson Almanza MD Neurology 08/16/14 [place] [address] [place] [id number] Pulmonary Disease 02/14/16 documented as of this encounter
--- OUTSIDE RECORDS SUMMARY | 2024-09-18 09:33 | XMS_ITS | Encounter Summary ---
Author Organization [facility] Address [address] [place] [address] Care Team Providers Care Railroad Car Cleaner Name Role Phone Sveta Rai MD Primary Care Provider Stevenson Almanza MD Unavailable [phone] Dequan Baxter MD Unavailable [phone] Reason for Visit * Reason Comments Swelling Leg right calf & sent from urgent care to rule out blood clot Encounter Details Date Type Department Care Team (Late st Contact Info) Description 10/05/2016 8:31 PM MIDDLE SCHOOL TEACHER - 10/06/2016 12:15 AM MIDDLE SCHOOL TEACHER Emergency ER at [address] [address] Shine Hampton MD [address] [place] [address] EMERGENCY DEPT [place], [place] [id number] Right calf pain Discharge Disposition: Home or Self Care Social [...] Sign Reading Time Taken Comments Blood Pressure 141/78 10/06/2016 12:00 AM MIDDLE SCHOOL TEACHER Pulse 78 10/05/2016 8:11 PM MIDDLE SCHOOL TEACHER Temperature 36.8 ??C (98.2 ??F) 10/05/2016 8:11 PM CS T Respiratory Rate 18 10/05/2016 8:11 PM MIDDLE SCHOOL TEACHER Oxygen Saturation 95% 10/06/2016 12:00 AM MIDDLE SCHOOL TEACHER Inhaled Oxygen Concentration - - Weight 117 kg (258 lb) 10/05/2016 8:11 PM MIDDLE SCHOOL TEACHER Height 162.6 cm (5' 4 ) 10/05/2016 8:11 PM MIDDLE SCHOOL TEACHER Body Mass Index 44.29 10/05/2016 8:11 PM MIDDLE SCHOOL TEACHER documented in this encounter Functional Status Functional [...] No 10/23/2014 documented as of this encounter Discharge Instructions * Discharge Instructions* Shine Hampton MD - 10/05/2016 9:48 PM MIDDLE SCHOOL TEACHER Muscle Pain Muscle pain (myalgia) may be caused by many things, including: ?? Overuse or muscle strain, especially if you are not in shape. This is the most common cause of muscle pain. ?? Injury. ?? Bruises. ?? Viruses, such as the flu. ?? Infectious diseases. ?? Fibromyalgia, which is a chronic condition that causes muscle tenderness, fatigue, and headache. ?? Autoimmune diseases, including lupus. ?? Certain drugs, including ELIZABETH inhibitors and statins. Muscle pain may be mild or severe. In most cases, the pain lasts only a short time and goes away without treatment. To diagnose the cause of your muscle pain, your health care provider will take yourmedical history. This means he or she will ask you when your muscle pain began and what has been happening. If you have not had muscle pain for very long, your health care provider may want to wait before doing much testing. If your muscle pain has lasted a long time, your health care provider may want to run tests right away. If your health care provider thinks your muscle pain may be caused by illness, you may need to have additional tests to rule out certain conditions. Treatment for muscle pain depends on the cause. Home care is often enough to relieve muscle pain. Your health care provider may also prescribe anti- inflammatory medicine. HOME CARE INSTRUCTIONS Watch your condition for any changes. The following actions may help to lessen any discomfort you are feeling: ?? Only take lzgi-upz-tzmpxvy or prescription medicines as directed by your health care provider. ?? Apply ice to the sore muscle: ?? Put ice in a plastic bag. ?? Place a towel between your skin and the bag. ?? Leave the ice on for 15-20 minutes, 3-4 times a day. ?? You may alternate applying hot and cold packs to the muscle as directed by your health care provider. ?? If overuse is causing your muscle pain, slow down your activities until the pain goes away. ?? Remember that it is normal to feel some muscle pain after starting a workout program. Muscles that have not been used often will be sore at first. ?? Do regular, gentle exercises if you are not usually active. ?? Warm up before exercising to lower your risk of muscle pain. ?? Do not continue working out if the pain is very bad. Bad pain could mean you have injured a muscle. SEEK MEDICAL CARE IF: ?? Your muscle pain gets worse, and medicines do not help. ?? You have muscle pain that lasts longer than 3 days. ?? You have a rash or fever along with muscle pain. ?? You have muscle pain after a tick bite. ?? You have muscle pain while working out, even though you are in good physical condition. ?? You have redness, soreness, or swelling along with muscle pain. ?? You have muscle pain after starting a new medicine or changing the dose of a medicine. SEEK IMMEDIATE MEDICAL CARE IF: ?? You have trouble breathing. ?? You have trouble swallowing. ?? You have muscle pain along with a stiff neck, fever, and vomiting. ?? You have severe muscle weakness or cannot move part of your body. MAKE SURE YOU: ?? Understand these instructions. ?? Will watch your condition. ?? Will get help right away if you are not doing well or get worse. Document Released: 07/16/2007 Document Revised: 08/29/2014 Document Reviewed: 06/20/2014 ExitCare?? Patient Information ??2014 [employer]. This information is not intended to replace advice given to you by your health care provider. Make sure you discuss any questions you have with your health care provider. LE SCHOOL TEACHER documented in this encounter Medications at Time of Discharge Medication Sig Dispensed Refills Start Date End Date Cholecalciferol (VITAMIN D) 1000 UNIT capsule Take 5 (five) capsules by mouth once daily metFORMIN (GLUCOPHAGE) 500 MG tablet TAKE ONE TABLET BY MOUTH ONCE DAILY 90 Tab 1 05/16/2016 amitriptyline (ELAVIL) 25 MG tablet Take 50 mg by mouth at bedtime 09/29/2016 11/20/2017 aspirin 325 MG tablet Take 81 mg by mouth once daily 04/17/2020 atorvastatin (LIPITOR) 40 MG tablet Take 1 Tab by mouth at bedtime 90 Tab 1 02/08/2016 10/08/2016 B Complex Vitamins (B-COMPLEX/B-12 PO) Take 1,000 mcg by mouth. 12/08/2016 blood glucose (Skyfire LabsTOUCH TEST STRIPS) test strip Use 1 Strip once for 1 dose 200 Strip 1 12/06/2015 12/15/2016 Blood Glucose Monitoring Suppl (ONE TOUCH BASIC SYSTEM) W/DEVICE KIT Use once daily 1 Kit 0 12/06/2015 01/21/2021 citalopram (CELEXA) 40 MG tablet TAKE ONE TABLET BY MOUTH ONCE DAILY 90 Tab 3 08/11/2016 04/22/2022 fluticasone propionate (FLONASE) 50 MCG/ACT nasal spray USE 2 SPRAYS INTO EACH NOSTRIL ONCE A DAY 3 Bottle 3 11/19/2015 11/08/2016 levothyroxine (SYNTHROID) 88 MCG tablet TAKE ONE TABLET BY MOUTH ONCE DAILY BEFORE BREAKFAST 30 Tab 3 09/30/2016 10/08/2016 levothyroxine (SYNTHROID) 88 MCG tablet Take 1 Tab by mouth daily before breakfast 30 Tab 3 02/07/2016 05/27/2017 lisinopril (PRINIVIL; ZESTRIL) 40 MG tablet TAKE ONE TABLET BY MOUTH ONCE DAILY 30 Tab 3 06/30/2016 10/27/2016 loratadine (CLARITIN) 10 MG tablet Take 10 mg by mouth once daily. 01/19/2020 meloxicam (MOBIC) 15 MG tablet TAKE ONE TABLET BY MOUTH ONCE DAILY 90 Tab 1 06/10/2016 04/22/2022 metoprolol tartrate (LOPRESSOR) 50 MG tablet TAKE ONE TABLET BY MOUTH TWICE A DAY 180 Tab 1 06/10/2016 12/08/2016 Nutritional Supplements (ESTROVEN PO) Take by mouth once daily 12/31/2017 [place]-3 Fatty Acids (FISH OIL) 1000 MG capsule Take 1 Cap by mouth once daily 12/31/2017 ondansetron, disintegrating, (ZOFRAN ODT) [address] ONE TABLET ON TONGUE AND DISSOLVE ONCE DAILY NEEDED FOR NAUSEA/VOMITING ALLOW TABLET TO DISSOLVE ON THE TONGUE 60 Tab 1 09/30/2016 12/31/2017 ONE TOUCH LANCETS MISC Use once daily 200 Each 1 09/02/2016 01/21/2021 traMADol (ULTRAM) 50 MG tablet Reported on 12/08/2016 06/06/2016 017 zolpidem (AMBIEN) 5 MG tabletIndications:Other insomnia Take 1 Tab by mouth nightly as needed for Insomnia 30 Tab 1 09/02/2016 05/27/2017 documented as of this encounter ED Notes * Sonya Johnson RN - 10/06/2016 12:14 AM CST Pt discharged to home. Ambulatory to the waiting rm. Discharge instructions reviewed. Pt verbalizedunderstanding. LE SCHOOL TEACHER * Shine Hampton MD - 10/05/2016 9:13 PM CST Provider contact with the patient: 10/05/2016 21:13 Lucretia Rodriguez [id number] [facility] History Chief Complaint Patient presents with ??? Swelling Leg right calf & sent from urgent care to rule out blood clot HPI Comments: 9:14 PM Lucretia Rodriguez, a 51 y.o. female with a past medical history that includes--IA, HTN, Hyeprlipidemia, MS, Gastric band, Migraine, Hypothyroid, Depression, DIEUDONNE, Stomach ulcer and Anemia--presents to the ER c/o right leg swelling and calf discomfort that started a couple of days ago and eventually became painful. She was seen at Urgent Care who sent her here to rule out DVT/PE. She denies trauma or injury to the leg. This past week she has been on stay- cation and has not beenon her feet as much as normal. She denies recent surgeries or taking hormones and ocps. She does takes OTC medication for hot flashes and smokes cigarettes. She denies family history of DVT/PE, experiencing fever or hemoptysis. PCP: Sveta Terry MD Past Medical History Diagnosis Date ??? Anemia ??? Depressive disorder, not elsewhere classified ??? Generalized anxiety disorder ??? H/O heart artery stent 2010 [id number] LAD( ) [facility] ??? H/O laparoscopic adjustable gastric banding 2009 ??? Heart attack 2010 ??? HTN (hypertension) ??? Hyperlipemia ??? Hypothyroid ??? Migraine ??? Multiple sclerosis 2005 Dr. Almanza ??? S/P tonsillectomy ??? Stomach ulcer ??? Tension headache Past Surgical History Procedure Laterality Date ??? Coronary stent placement was on plavix for 9 month, now on ASA ??? Tonsillectomy ??? Sys lap band 10.0 2009 ??? Tubal ligation, laparoscopic ??? Cholecystectomy, laparoscopic 08/09/2013 ??? Cholecystectomy, laparoscopic 08/10/2013 LAPAROSCOPIC CHOLECYSTECTOMY ??? Ercp 08/12/2013 ERCP ??? Endometrial ablation 2006 for heavy menses. ??? Carpal tunnel surgery R side ??? Ulnar nerve release R side Family History Problem Relation Age of Onset ??? Cancer Maternal Grandmother laranyx ??? Cancer Maternal Grandfather lung ??? Diabetes Sister ??? Heart Failure Father 48 heart attack ??? Heart Failure Mother 63 heart attack ??? Hypercholesterolemia Mother ??? Hypertension Sister ??? Colon Cancer after age 50 or unknown Maternal Uncle colon ??? Cancer Other Maternal Uncle lung ??? Migraine Sister History Social History ??? Marital status: Spouse name: N/A ??? Number of children: 2 ??? Years of education: N/A Occupational History ??? [employer] Social History Main Topics ??? Smoking status: Current Every Day Smoker Packs/day: 0.50 Years: 30.00 Types: Cigarettes ??? Smokeless tobacco: Never Used ??? Alcohol use: 0.0 oz/week 0 Standard drinks or equivalent per week Comment: Rarely ??? Drug use: No ??? Sexual activity: Yes Partners: Male Other Topics Concern ??? Exercise No Social History Narrative Allergies Allergen Reactions ??? Latex ??? Sulfa Drugs Review of Systems Review of Systems Constitutional: Negative for chills and fever. HENT: Negative for congestion and sore throat. Eyes: Negative for blurred vision and pain. Respiratory: Negative for cough and shortness of breath. Cardiovascular: Positive for leg swelling (to the right leg with pain). Negative for chest pain andpalpitations. Gastrointestinal: Negative for abdominal pain, diarrhea, nausea and vomiting. Genitourinary: Negative for dysuria and hematuria. Musculoskeletal: Positive for myalgias. Negative for back pain. Skin: Negative for rash. Neurological: Negative for sensory change, focal weakness and headaches. Psychiatric/Behavioral: Negative for substance abuse. The patient is not nervous/anxious. All other systems reviewed and are negative. Physical Exam BP (!) 158/101 Pulse 78 Temp 98.2 ??F Resp 18 Ht 1.626 m (5' 4 ) Wt 117 kg (258 lb) SpO2 96% BMI 44.29 kg/m2 Physical Exam Constitutional: She is oriented to person, place, and time. She appears well- developed and well-nourished. No distress. obese HENT: Head: Normocephalic and atraumatic. Mouth/Throat: Oropharynx is clear and moist. Eyes: Conjunctivae are normal. No scleral icterus. Neck: Normal range of motion. Neck supple. Cardiovascular: Normal rate, regular rhythm, normal heart sounds and intact distal pulses. Pulmonary/Chest: Effort normal and breath sounds normal. Abdominal: Soft. Bowel sounds are normal. She exhibits no distension. There is no tenderness. Musculoskeletal: Normal range of motion. She exhibits tenderness (to the right calf). She exhibits no edema. Measurement of 39 cm to the left calf and 40.5 cm to the right calf Neurological: She is alert and oriented to person, place, and time. Skin: Skin is warm and dry. She is not diaphoretic. Psychiatric: She has a normal mood and affect. Her behavior is normal. Nursing note and vitals reviewed. Medications Current Outpatient Prescriptions Medication Sig Dispense Refill ??? ondansetron, disintegrating, (ZOFRAN ODT) [address] ONE TABLET ON TONGUE AND DISSOLVE ONCE DAILY NEEDED FOR NAUSEA/VOMITING ALLOW TABLET TO DISSOLVE ON THE TONGUE 60 Tab 1 ??? levothyroxine (SYNTHROID) 88 MCG tablet TAKE ONE TABLET BY MOUTH ONCE DAILY BEFORE BREAKFAST 30Tab 3 ??? ONE TOUCH LANCETS MISC Use once daily 200 Each 1 ??? zolpidem (AMBIEN) 5 MG tablet Take 1 Tab by mouth nightly as needed for Insomnia 30 Tab 1 ??? citalopram (CELEXA) 40 MG tablet TAKE ONE TABLET BY MOUTH ONCE DAILY 90 Tab 3 ??? lisinopril (PRINIVIL; ZESTRIL) 40 MG tablet TAKE ONE TABLET BY MOUTH ONCE DAILY 30 Tab 3 ??? meloxicam (MOBIC) 15 MG tablet TAKE ONE TABLET BY MOUTH ONCE DAILY 90 Tab 1 ??? metoprolol tartrate (LOPRESSOR) 50 MG tablet TAKE ONE TABLET BY MOUTH TWICE A DAY 180 Tab 1 ??? traMADol (ULTRAM) 50 MG tablet ??? metFORMIN (GLUCOPHAGE) 500 MG tablet TAKE ONE TABLET BY MOUTH ONCE DAILY 90 Tab 1 ??? atorvastatin (LIPITOR) 40 MG tablet Take 1 Tab by mouth at bedtime 90 Tab 1 ??? levothyroxine (SYNTHROID) 88 MCG tablet Take 1 Tab by mouth daily before breakfast 30 Tab 3 ??? Blood Glucose Monitoring Suppl (ONE TOUCH BASIC SYSTEM) W/DEVICE KIT Use once daily 1 Kit 0 ??? fluticasone propionate (FLONASE) 50 MCG/ACT nasal spray USE 2 SPRAYS INTO EACH NOSTRIL ONCE A DAY 3 Bottle 3 ??? [place]-3 Fatty Acids (FISH OIL) 1000 MG capsule Take 1 Cap by mouth once daily ??? Nutritional Supplements (ESTROVEN PO) Take by mouth once daily ??? loratadine (CLARITIN) 10 MG tablet Take 10 mg by mouth once daily. ??? aspirin 325 MG tablet Take 325 mg by mouth once daily. ??? B Complex Vitamins (B-COMPLEX/B-12 PO) Take 1,000 mcg by mouth. ??? Cholecalciferol (VITAMIN D) 1000 UNIT capsule Take 5,000 Units by mouth once daily Procedures Procedures ECG Interpretation ECG Interpretation Lab Interpretation Oxygen Saturation Interpretation The oxygen saturation level is: 96%. The patient was on Room Air for the saturation measurement. Measurement frequency: Continuous. Oxygen saturation interpretation is Normal. Intervention(s) used: None. Hospital Encounter on 10/05/16 D-DIMER Result Value Ref Range D-Dimer mg/L FEU 0.43 0.17 - 0.5 mg/L FEU No orders to display Progress Notes 9:18 PM: Initial Plan: Order/review d-dimer and give toradol for pain. Discussed the need for d-dimer and if positive will need imaging in the morning. Reassess. 9:53 PM Rechecked pt -patient resting comfortably and feeling better. I discussed the negative results of the d-dimer and to follow-up with PCP. Patient agrees with plan and discharge at this time, all questions addressed. Pt is medically stable for discharge at this time. I have given the patient instructions regarding her diagnosis, expectations, follow up, and return precautions. I explained to the patient that emergent conditions may arise and to return to the ER for new, worsening, or any persistent conditions. I've explained the importance of following up with her Primary Care Physician as instructed. The patient verbalized understanding of the discharge instructions. ED Course ED Course There is no data filed. Medical Decision Making I have reviewed the: Nursing Notes, Vitals. I have interpreted the following results: Labs, Oxygen Saturation. Presentation not c/w DVT and D-dimer negative (patient low risk by [facility]). Stable for discharge home, patient understands to return for any worsening symptoms. Orders Placed This Encounter ??? D-DIMER ??? ketorolac (TORADOL) injection 30 mg Clinical Impression Final diagnoses: Right calf pain New Medications: New Prescriptions No medications on file I have advised the patient to follow-[place]: [place] [id number] [address] [facility] [address] [facility] [address] As needed Disposition: Discharged Scribe Signature and Attestation By signing my name below, Monika Beth, attest that this documentation has been prepared underthe direction and in the presence of Shine Hampton MD Electronically Signed: Марина Mujica. 10/05/2016. Time 9:54 PM Provider Signature and Attestation Dr Memo Beth, personally performed the services described in this documentation. All medical record entries made by the scribe were at my direction and in my presence. I have reviewed the chart and agree that the record reflects my personal performance and is accurate and complete. Shine Hampton MD. 10/05/2016. Time 9:54 PM LE SCHOOL TEACHER * George Holman RN - 10/05/2016 8:31 PM CST Bed: 4 Expected date: Expected time: Means of arrival: Comments: WR patient LE SCHOOL TEACHER documented in this encounter Plan of Treatment Upcoming Encounters Date Type Department Care Team (Late st Contact Info) Description 09/27/2024 2:20 PM MIDDLE SCHOOL TEACHER Office Visit [facility] [address] [phone] [place] [address] [address] 09/28/2024 1:00 PM MIDDLE SCHOOL TEACHER Office Visit [facility] - [address] [address] Barrett, [address] [address] [place] [address] [facility] [address] [address] documented as of this encounter Goals Goal Patient Goal Type Associated Problems Recent Progress Patient-Stated? Author Blood Pressure < 140/90 Blood Pressure 102/69(2022 11:30 AM MIDDLE SCHOOL TEACHER) No Melinda Newsome Quit smoking / using tobacco Lifestyle No Melinda Newsome documented as of this encounter Procedures Procedure Name Priority Date/Time Associated Diagnosis Comments D-DIMER STAT 10/05/2016 9:07 PM MIDDLE SCHOOL TEACHER documented in this encounter Results * D-DIMER (10/05/2016 9:07 PM MIDDLE SCHOOL TEACHER) D-Dimer 0.43 0.17 - 0.5 mg/L FEU 10/05/2016 9:40 PM MIDDLE SCHOOL TEACHER [facility] Blood BLOOD SPECIMEN / Unknown 10/05/2016 9:07 PM MIDDLE SCHOOL TEACHER 10/05/2016 9:16 PM MIDDLE SCHOOL TEACHER Narrative [facility] - 10/05/2016 9:40 PM MIDDLE SCHOOL TEACHER The [employer] D-Dimer assay is intended for [...] - COAGULATION OR DERABLES Performing Organization Address City/State/[facility] Co de Phone Number [facility] [address] [place] [id number] documented in this encounter Visit Diagnoses Diagnosis Right calf pain documented in this encounter Administered Medications Inactive Administered Medications - up to 3 most recent administrations Medication Order MAR Action Action Date Dose Rate Site ketorolac (TORADOL) injection 30 mg 30 mg, Intravenous, NOW, 1 dose, On 10/05/16 at 2200 $ Given 10/05/2016 11:05 PM MIDDLE SCHOOL TEACHER 30 mg documented in this encounter Active and Recently Administered Medications Times are shown in MIDDLE SCHOOL TEACHER. Scheduled Medication Order 10/04/2016 10/05/2016 10/06/2016 ketorolac (TORADOL) injection 30 mg (COMPLETED) 30 mg, Intravenous, NOW, 1 dose, On 10/05/16 at 2200 2305 ($ Given - Provider: Enoc Tsai, RN) documented in this encounter Care Teams Railroad Car Cleaner Relationship Specialty Start Date End Date Sveta Rai MD PCP - General Internal Medicine 02/22/13 12/07/16 Stevenson Almanza MD Neurology 08/16/14 [place] [address] [place] [address] Pulmonary Disease 02/14/16 documented as of this encounter
--- OUTSIDE RECORDS SUMMARY | 2024-09-18 09:33 | XMS_ITS | Encounter Summary ---
Author Organization [facility] Address [address] [facility] [place] [address] Care Team Providers Care Prototype Special Build Name Role Phone Sveta Rai MD Primary Care Provider Stevenson Almanza MD Unavailable [phone] Dequan Baxter MD Unavailable [phone] Reason for Visit * Reason Onset Date Comments MEDICATION REFILL 07/03/2016 Encounter Details Date Type Department Care Team (Late st Contact Info) Description 07/03/2016 Refill [facility] Medical [facility] - Family Medicine [address] [place] [address] Sveta Rai MD [address] [place] [address] [address] MEDICATION REFILL Social History Tobacco [...] * Telephone Encounter - Edith Cohn - 07/04/2016 4:23 PM CDT Phoned into pharmacy * Telephone Encounter - Rekha Newsome MA - 07/03/2016 12:02 PM CDT Lucretia Rodriguez Requested Prescriptions Pending Prescriptions Disp Refills ??? zolpidem (AMBIEN) 5 MG tablet 30 Tab 1 Sig: Take 1 Tab by mouth nightly as needed for Insomnia Allergies Allergen Reactions ??? Latex ??? Sulfa Drugs Last refill- 04/21/16 Last OV-06/09/16 Scheduled-08/26/16 documented in this encounter Plan of Treatment Upcoming Encounters Date Type Department Care Team (Late st Contact Info) Description 09/27/2024 2:20 PM LABORER [employer] Office Visit [facility] [address] [facility] [address] [place] [address] [place] [address] [facility] [address] [place] [address] 09/28/2024 1:00 PM [employer]ER [employer] Office Visit [facility] Health Medical Group - [address] [address] [address] [place] [address] [address] [facility] [address] [place] [address] documented as of this encounter Goals Goal Patient Goal Type Associated Problems Recent Progress Patient-Stated? Author Blood Pressure < 140/90 Blood Pressure 102/69(2022 11:30 AM LAB[employer]ER [employer]) No Melinda Newsome Quit smoking / using tobacco Lifestyle No Melinda Newsome documented as of this encounter Visit Diagnoses Diagnosis Other insomnia documented in this encounter Care Teams Prototype Special Build Relationship Specialty Start Date End Date Sveta Rai MD PCP - General Internal Medicine 02/22/13 12/07/16 Stevenson Almanza MD Neurology 08/16/14 [place] [address] [address] Pulmonary Disease 02/14/16 documented as of this encounter
--- OUTSIDE RECORDS SUMMARY | 2024-09-18 09:33 | XMS_ITS | Encounter Summary ---
Author Organization [facility] Address [address] [place] [address] Care Team Providers Care Crystalizer Name Role Phone Sveta Rai MD Primary Care Provider Stevenson Almanza MD Unavailable [phone] Dequan Baxter MD Unavailable [phone] Reason for Referral * Radiology Services (Routine) - Closed Specialty Diagnoses / Procedures Referred By Contac t Referred To Contact Diagnoses Abdominal pain, epigastric Enlarged liver Procedures [place]BD LIMITED [place]/ [place] [address] [address] [place] [phone] Referral ID Status Reason Start Date Expiration Date Visits Re quested Visits Authorized [id number] Closed 06/10/2016 12/07/2016 1 1 Reason for Visit * Radiology Services (Routine) - Closed Specialty Diagnoses / Procedures Referred By Contac t Referred To Contact Diagnoses Abdominal pain, epigastric Enlarged liver Procedures [place]BD LIMITED [place] [address] [address] [place] [phone] Referral ID Status Reason Start Date Expiration Date Visits Re quested Visits Authorized [id number] Closed 06/10/2016 12/07/2016 1 1 Encounter Details Date Type Department Care Team (Latest Contact Info) Description 06/10/2016 8:25 AM CDT - 06/10/2016 11:59 PM CDT Hospital Encounter [facility] - Ultrasound [address] [place] [address] [place] [address] NOONAN [address] [place] [address] Discharge Disposition: Home or Self Care [...] MOUTH ONCE DAILY 90 Tab 1 05/16/2016 aspirin 325 MG tablet Take 81 mg by mouth once daily 04/17/2020 atorvastatin (LIPITOR) 40 MG tablet Take 1 Tab by mouth at bedtime 90 Tab 1 02/08/2016 10/08/2016 B Complex Vitamins (B-COMPLEX/B-12 PO) Take 1,000 mcg by mouth. 12/08/2016 blood glucose (OnetoOnetextUCH TEST STRIPS) test strip Use 1 Strip once for 1 dose 200 Strip 1 12/06/2015 12/15/2016 Blood Glucose Monitoring Suppl (ONE TOUCH BASIC SYSTEM) W/DEVICE KIT Use once daily 1 Kit 0 12/06/2015 01/21/2021 citalopram (CELEXA) 40 MG tabletIndications:Major depressive disorder, recurrent episode, moderate (HCC) Take 1 Tab by mouth once daily 90 Tab 3 07/31/2015 08/10/2016 fluticasone propionate (FLONASE) 50 MCG/ACT nasal spray USE 2 SPRAYS INTO EACH NOSTRIL ONCE A DAY 3 Bottle 3 11/19/2015 11/08/2016 levothyroxine (SYNTHROID) 88 MCG tablet Take 1 Tab by mouth daily before breakfast 30 Tab 3 02/07/2016 05/27/2017 lisinopril (PRINIVIL; ZESTRIL) 40 MG tablet TAKE ONE TABLET BY MOUTH ONCE DAILY 30 Tab 3 03/05/2016 06/30/2016 loratadine (CLARITIN) 10 MG tablet Take 10 mg by mouth once daily. 01/19/2020 meloxicam (MOBIC) 15 MG tablet TAKE ONE TABLET BY MOUTH ONCE DAILY 90 Tab 1 06/10/2016 04/22/2022 metoprolol tartrate (LOPRESSOR) 50 MG tablet TAKE ONE TABLET BY MOUTH TWICE A DAY 180 Tab 1 06/10/2016 12/08/2016 Nutritional Supplements (ESTROVEN PO) Take by mouth once daily 12/31/2017 [place]-3 Fatty Acids (FISH OIL) 1000 MG capsule Take 1 Cap by mouth once daily 12/31/2017 ondansetron, disintegrating, (ZOFRAN ODT) 8 MG tablet Take 1 Tab by mouth once daily as needed for Nausea/Vomiting Allow tablet to dissolve on the tongue 60 Tab 1 06/06/2016 09/29/2016 ONE TOUCH LANCETS MISC Use once daily 200 Each 1 12/06/2015 08/31/2016 traMADol (ULTRAM) 50 MG tablet Reported on 12/08/2016 06/06/2016 017 zolpidem (AMBIEN) 5 MG tabletIndications:Other insomnia Take 1 Tab by mouth nightly as needed for Insomnia 30 Tab 1 04/21/2016 07/03/2016 documented as of this encounter Plan of Treatment Upcoming Encounters Date Type Department Care Team (Late st Contact Info) Description 09/27/2024 2:20 PM MEDICAL CLAIMS ASSISTANT Office Visit [facility] [address] [address] [place] [address] [facility] J[address]AN [place] [place] [address] 09/28/2024 1:00 PM MEDICAL CLAIMS ASSISTANT Office [facility] [address] [facility], Juan [address] [place] [address] [place] [address] [facility] [address] [place] [address] [place] [address] documented as of this encounter Goals Goal Patient Goal Type Associated Problems Recent Progress Patient-Stated? Author Blood Pressure < 140/90 Blood Pressure 102/69(2022 11:30 AM MEDICAL CLAIMS ASSISTANT) No Melinda Newsome Quit smoking / using tobacco Lifestyle No Melinda Newsome documented as of this encounter Procedures Procedure Name Priority Date/Time Associated Diagnosis Comments US ABDOMEN LTD W LTD DOPPLER Routine 06/10/2016 9:05 AM CDT Abdominal pain, epigastric Enlarged liver documented in this encounter Results * US ABD LIMITED W/ DOPPLER (06/10/2016 9:05 AM CDT) Anatomical Region Laterality Modality Ultrasound 06/10/2016 10:5 9 AM CDT Impressions 06/10/2016 11:02 AM CDT Diffuse increased echogenicity of liver, most commonly seen in the setting of diffuse fatty infiltration Normal hepatic Doppler Kuja-oa-clbswegm hepatic fibrosis, F 2-3 Liver Fibrosis Staging [...] of diffuse fatty infiltration Normal hepatic Doppler Nvpm-mv-evwkuldy hepatic fibrosis, F 2-3 Liver Fibrosis Staging Metavir Score Velocity(m/s) * Normal F0 0.81 - 1.22 * Normal to Mild F0 - F1 1.22 - 1.37 * Mild to Moderate F2 - F3 1.37 - 2.00 * Moderate to Severe F3 - F4 2.00 - 2.64+ Mark Rose MD US ORDERABLES documented in this encounter Visit Diagnoses Diagnosis Abdominal pain, epigastric Enlarged liver Hepatomegaly documented in this encounter Care Teams Crystalizer Relationship Specialty Start Date End Date Sveta Rai MD PCP - General Internal Medicine 02/22/13 12/07/16 Stevenson Almanza MD Neurology 08/16/14 [place] [address] [address] Pulmonary Disease 02/14/16 documented as of this encounter
--- OUTSIDE RECORDS SUMMARY | 2024-09-18 09:33 | XMS_ITS | Encounter Summary ---
Author Organization [facility] Address [address] [facility] [place] [address] Care Team Providers Care Puddler Helper Name Role Phone Sveta Rai MD Primary Care Provider Stevenson Almanza MD Unavailable [phone] Dequan Baxter MD Unavailable [phone] Reason for Visit * Reason Comments Refill Request Encounter Details Date Type Department Care Team (Late Contact Info) Description 08/10/2016 Refill [facility] Medical [facility] - Family Medicine [address] [place] [address] Sveta Rai MD [address] [place] [address] DR NOON[address] [place] [address] Refill Request Social History Tobacco Use Types [...] * Telephone Encounter - Renetta Reveles - 08/11/2016 11:53 AM CST Lucretia Rodriguez Allergies Allergen Reactions ??? Latex ??? Sulfa Drugs Requested Prescriptions Pending Prescriptions Disp Refills ??? citalopram (CELEXA) 40 MG tablet [Pharmacy Med Name: CITALOPRAM HBR 40 MG TABLET] 90 Tab 3 Sig: TAKE ONE TABLET BY MOUTH ONCE DAILY Last Refill: 07/13/2016 Last OV: 06/09/16 Next OV:08/26/16 ALING OPERATOR documented in this encounter Plan of Treatment Upcoming Encounters Date Type Department Care Team (Late st Contact Info) Description 09/27/2024 2:20 PM ANNEALING OPERATOR Office Visit [facility] Neurosciences [address] [facility] [address] [place] [address] [place] [address] [facility] [address] [place] [address] 09/28/2024 1:00 PM ANNEALING OPERATOR Office Visit [facility] [place] [address] Michele Barrett, [email or web address] [address] [place] [address] [place] [address] [address] [facility] [address] [place] [address] documented as of this encounter Goals Goal Patient Goal Type Associated Problems Recent Progress Patient-Stated? Author Blood Pressure < 140/90 Blood Pressure 102/69(2022 11:30 AM ANNEALING OPERATOR) No Melinda Newsome Quit smoking / using tobacco Lifestyle No Melinda Newsome documented as of this encounter Visit Diagnoses Not on filedocumented in this encounter Care Teams Puddler Helper Relationship Specialty Start Date End Date Sveta Rai MD PCP - General Internal Medicine 02/22/13 12/07/16 Stevenson Almanza MD Neurology 08/16/14 [place] [address] [place] [address] Pulmonary Disease 02/14/16 documented as of this encounter
--- OUTSIDE RECORDS SUMMARY | 2024-09-18 09:33 | XMS_ITS | Encounter Summary ---
Author Organization [facility] Address [address] [facility] [place] [address] Care Team Providers Care Distribution Systems Serviceperson Name Role Phone Sveta Rai MD Primary Care Provider Stevenson Almanza MD Unavailable Dequan Baxter MD Unavailable [phone] Reason for Visit * Reason Onset Date Comments Question 07/18/2016 Letter 07/18/2016 Encounter Details Date Type Department Care Team (Late st Contact Info) Description 07/18/2016 Telephone [facility] Medical [facility] - Family Medicine [address] [place] [address] Sveta Rai MD [address] [place] [address] [address] [place] [id number] Question; Letter Social History Tobacco Use Types Packs/Day Years [...] * Telephone Encounter - Edith Cohn - 07/21/2016 4:18 PM CST Forms given to provider to sign. ACT INSTRUCTOR * Telephone Encounter - Susi Cameron - 07/18/2016 3:17 PM CST Blayne with [employer] was calling checking on status of Supplement attending physician statement that was faxed over, would like to know if they have been signed . ACT INSTRUCTOR documented in this encounter Plan of Treatment Upcoming Encounters Date Type Department Care Team (Late st Contact Info) Description 09/27/2024 2:20 PM SAT ACT INSTRUCTOR Office Visit [facility] Neurosciences [address] [facility] [address] [place] [address] [place] [address] [facility] [address] [place] [address] 09/28/2024 1:00 PM SAT ACT INSTRUCTOR Office Visit [facility] [place] [address] Michele Barrett, [facility] [address] [place] [address] [place] [address] [address] [facility] [address] [place] [address] documented as of this encounter Goals Goal Patient Goal Type Associated Problems Recent Progress Patient-Stated? Author Blood Pressure < 140/90 Blood Pressure 102/69(2022 11:30 AM SAT ACT INSTRUCTOR) No Newsome, Melinda Quit smoking / using tobacco Lifestyle No Melinda Newsome documented as of this encounter Visit Diagnoses Not on filedocumented in this encounter Care Teams Distribution Systems Serviceperson Relationship Specialty Start Date End Date Sveta Rai MD PCP - General Internal Medicine 02/22/13 12/07/16 Stevenson Almanza MD Neurology 08/16/14 Dequan Baxter [place] [id number] [place] [address] Pulmonary Disease 02/14/16 documented as of this encounter
--- OUTSIDE RECORDS SUMMARY | 2024-09-18 09:33 | XMS_ITS | Encounter Summary ---
Author Organization [facility] Address [address] [facility] [place] [address] Care Team Providers Care Lieutenant Colonel Name Role Phone Sveta Rai MD Primary Care Provider Stevenson Almanza MD Unavailable [phone] Dequan Baxter MD Unavailable [phone] Reason for Visit * Reason Comments Refill Request Encounter Details Date Type Department Care Team (Late Contact Info) Description 10/27/2016 Refill [facility] Medical [facility] - Family Medicine [address] [place] [address] Sveta Rai MD [address] [place] [address] DR NOONAN [address] [place] [address] Refill Request Social History Tobacco Use Types [...] * Telephone Encounter - Unique Truong - 10/27/2016 10:59 AM CST Lucretia Rodriguez Requested Prescriptions Pending Prescriptions Disp Refills ??? lisinopril (PRINIVIL; ZESTRIL) 40 MG tablet [Pharmacy Med Name: LISINOPRIL 40MG COMP CLOVER] 30 Tab 3 Sig: TAKE ONE TABLET BY MOUTH ONCE DAILY Allergies Allergen Reactions ??? Latex ??? Sulfa Drugs ??? Adhesive Sensitivity Rash Last refill- 06/30/16 Last OV-06/09/16 Future OV-none FAT FRY COOK documented in this encounter Plan of Treatment Upcoming Encounters Date Type Department Care Team (Late st Contact Info) Description 09/27/2024 2:20 PM DEEP FAT FRY COOK Office Visit [facility] Neurosciences [address] [phone] [place] [address] [facility] [address] [place] [address] 09/28/2024 1:00 PM DEEP FAT FRY COOK Office Visit [facility] [place] [address] Michele Barrett [facility] [address] [place] [address] [place] [address] [address] [facility] [address] [place] [address] documented as of this encounter Goals Goal Patient Goal Type Associated Problems Recent Progress Patient-Stated? Author Blood Pressure < 140/90 Blood Pressure 102/69(2022 11:30 AM DEEP FAT FRY COOK) Melinda Barclay Quit smoking / using tobacco Lifestyle No Mercedez Melinda documented as of this encounter Visit Diagnoses Not on filedocumented in this encounter Care Teams Lieutenant Colonel Relationship Specialty Start Date End Date vSeta Rai MD PCP - General Internal Medicine 02/22/13 12/07/16 Stevenson Almanza MD Neurology 08/16/14 [place] [address] [address] Pulmonary Disease 02/14/16 documented as of this encounter
--- OUTSIDE RECORDS SUMMARY | 2024-09-18 09:33 | XMS_ITS | Encounter Summary ---
Author Organization [facility] Address [address] [facility] [place] [address] Care Team Providers Care Type Casting Machine Operator Name Role Phone Sveta Rai MD Primary Care Provider Stevenson Almanza MD Unavailable [phone] Dequan Baxter MD Unavailable [phone] Reason for Visit * Reason Onset Date Comments Record Request 07/03/2016 Encounter Details Date Type Department Care Team (Late st Contact Info) Description 07/03/2016 Telephone [facility] Medical [facility] - Family Medicine [address] [place] [address] Sveta Rai MD [address] [place] [address] [id number] Record Request Social History Tobacco Use Types Packs/Day [...] encounter Miscellaneous Notes * Telephone Encounter - Rekha Newsome MA - 07/03/2016 10:19 AM CDT Advised Kati at [facility] records release was not received. * Telephone Encounter - Wen Ramírez - 07/03/2016 10:01 AM CDT Kati with [employer] called to check status on record requests that was faxed on yesterday. documented in this encounter Plan of Treatment Upcoming Encounters Date Type Department Care Team (Late st Contact Info) Description 09/27/2024 2:20 PM ENERGY CONSERVATION DIRECTOR Office Visit [facility] Neurosciences [address] [phone] [place] [address] [facility] [address] [place] [address] 09/28/2024 1:00 PM ENERGY CONSERVATION DIRECTOR Office Visit [facility] [place] [address] Michele Barrett, [facility] [address] [place] [address] [place] [address] [address] [facility] [address] [place] [address] documented as of this encounter Goals Goal Patient Goal Type Associated Problems Recent Progress Patient-Stated? Author Blood Pressure < 140/90 Blood Pressure 102/69(2022 11:30 AM ENERGY CONSERVATION DIRECTOR) No Melinda Newsome Quit smoking / using tobacco Lifestyle No Melinda Newsome documented as of this encounter Visit Diagnoses Not on filedocumented in this encounter Care Teams Type Casting Machine Operator Relationship Specialty Start Date End Date Sveta Rai MD PCP - General Internal Medicine 02/22/13 12/07/16 Stevenson Almanza MD Neurology 08/16/14 Dequan Baxter [place] [id number] [place], [place] [id number] Pulmonary Disease 02/14/16 documented as of this encounter
--- OUTSIDE RECORDS SUMMARY | 2024-09-18 09:33 | XMS_ITS | Encounter Summary ---
Author Organization [facility] Address [address] [facility] [place] [address] Care Team Providers Care Summer Babysitter Name Role Phone Stevenson Almanza MD Unavailable [phone] Dequan Baxter MD Unavailable [phone] Anuj Schwatrz MD Primary Care Provider [phone] Encounter Details Date Type Department Care Team (Latest Contact Info) Description 10/21/2017 Hospital Outpatient Visit [facility] Gastroenterology and Hepatology [address] [place] [address] Neena Flores MD [address] [place] [address] Discharge Disposition: Home or Self Care Social [...] st Contact Info) Description 09/27/2024 2:20 PM DOWELER Office Visit [facility] Neurosciences [address] [facility] [address] [place] [address] [place] [address] [facility] [address] [place] [address] 09/28/2024 1:00 PM DOWELER Office Visit [facility] [place] [address] DePauping Barrett, [facility] 500 [place] [address] [place] [address] [address] [facility] [address] [place] [address] documented as of this encounter Goals Goal Patient Goal Type Associated Problems Recent Progress Patient-Stated? Author Blood Pressure < 140/90 Blood Pressure 102/69(2022 11:30 AM DOWELER) No Melinda Newsome Quit smoking / using tobacco Lifestyle No Melinda Newsome documented as of this encounter Visit Diagnoses Not on filedocumented in this encounter Care Teams Summer Babysitter Relationship Specialty Start Date End Date Anuj Schwartz MD [address] [place] [id number] PCP - General Family Medicine 12/08/16 10/25/18 Stevenson Almanza MD Neurology 08/16/14 Dequan Baxter [place] [id number] [place] [address] Pulmonary Disease 02/14/16 documented as of this encounter
--- OUTSIDE RECORDS SUMMARY | 2024-09-18 09:33 | XMS_ITS | Encounter Summary ---
Author Organization [facility] Address [address] [facility] [place] [address] Care Team Providers Care Electron Gun Assembler Name Role Phone Sveta Rai MD Primary Care Provider Stevenson Almanza MD Unavailable [phone] Dequan Baxter MD Unavailable [phone] Reason for Visit * Reason Comments ER UC Follow-up Encounter Details Date Type Department Care Team (Late st Contact Info) Description 06/09/2016 1:00 PM CDT Office Visit [facility] - Family Medicine [address] [place] [address] Sveta Rai MD [address] [place] [address] DR [address] [place] [address] Abdominal pain, RUQ (right upper quadrant) (Primary Dx); Hospital discharge follow-up Social History Tobacco Use Types Packs/Day Years [...] Sign Reading Time Taken Comments Blood Pressure 124/76 06/09/2016 1:01 PM CDT Pulse 64 06/09/2016 1:01 PM CDT Temperature 37.3 ??C (99.1 ??F) 06/09/2016 1:01 PM CD T Respiratory Rate 14 06/09/2016 1:01 PM CDT Oxygen Saturation - - Inhaled Oxygen Concentration - - Weight 116.6 kg (257 lb) 06/09/2016 1:01 PM CDT Height 162.6 cm (5' 4 ) 06/09/2016 1:01 PM CDT Body Mass Index 44.11 06/09/2016 1:01 PM CDT documented in this encounter Functional [...] this encounter Patient Instructions * Patient Instructions* Edith Cohn - 06/09/2016 1:02 PM CDT Caring for Your High Blood Pressure Healthy Lifestyle tips ??? Manage stress: Stress may slow healing and cause illness later. Since it is hard to avoid stress, learn to control it. Learn new ways to relax. Ask your provider for more information on ways to relax. Talk to someone about things that upset you. ??? Stop smoking: If you smoke, you should quit. Smoking harms the heart, lungs, and blood. You aremore likely to have a heart attack, lung disease, and cancer if you smoke. Smoking can also make your hypertension worse. It is never too late to quit. Quitting smoking improves your health, and the health of those around you. If you have trouble quitting, talk to your provider about ways to quit. ??? Drinking alcohol: If you drink alcohol, limit how much you drink. Do not drink more than two drinks a day. One drink is a can of beer (12 ounces) or four ounces (one-half cup) of wine. It is alsothe same as one jigger (one and one- half ounces) of hard liquor, such as whiskey. ??? Maintain a healthy weight. Weighing to much can make your heart work harder and cause high blood pressure. Other health problems are caused about weighing too much. Talk to your provider about anideal weight for you. Where can I go for more information? British Heart Association National Center: http://www.americanheart.org 1. In the top header, click ???Conditions?? . 2. In the top header, click ???high blood pressure.?? 3. For a printable blood pressure tracker, scroll toward the bottom of the page to Related Tools, and click ???HBP Trackers.?? 6-432-RCW-USA-1 or ( ) National Heart, Lung and Blood [place] [facility]: http://www.nhlbi.nih.gov/health/infoctr/index.htm Where can I go for support and more information? There are many ways to quit smoking. Some may work better for you than others. Your caregiver can help you find the best plan to quit. Smokefree.gov Phone: 4-082-RRJW-NOW ( ) www.smokefree.gov British Lung Association Phone: Phone: www.lung.org Instant Rewards of Quitting When you smoke, the chemicals in tobacco reach your lungs quickly every time you inhale. Your bloodthen carries the toxins to every organ in your body. There is no safe amount of cigarette smoke. After you quit, your body begins to heal within 20 minutes of your last cigarette, and the nicotine leaves your body within three days. As your body starts to repair itself, you may feel worse instead of better. Withdrawal can be difficult, but this is a sign that your body is healing. -Taken from www.Smokefree.gov Long?term Rewards of Quitting Tobacco use in the [place] causes about 443,000 deaths each year, or nearly one in every fivedeaths. Quitting can help you add years to your life. Smokers on average 13 years earlier than non-smokers. Take control of your health by quitting (and staying quit). Over time, you will greatlylower your risk of from lung cancer and other diseases, such as: Heart disease Stroke Chronic bronchitis Emphysema At least 13 other kinds of cancer -Taken from www.Smokefree.gov Tips if you slip ??? Don't be discouraged if you slip up and smoke one or two cigarettes. One cigarette is better than an entire pack. But don't use it as excuse to start smoking again because it's a slippery slope. ??? Don't be too hard on yourself. One slip up doesn't make you a failure. It doesn't mean you can't quit for good. ??? Don't be too easy on yourself either. If you slip up??? don't say??? Well??? I've blown it. I might as well smoke the rest of this pack . It's important to get back on the non-smoking track right away. Remember??? your goal is no cigarettes--not even one puff. ??? Feel good about all the time you went without smoking. Try to learn how to make your coping skills better. ??? Identify the trigger. Exactly what was it that made you smoke? Be aware of that trigger. Decidenow how you will cope with it when it comes up again. ??? Learn from your experience. What has helped you the most to keep from smoking? Make sure to do that on your next try. ??? Are you using a medicine to help you quit? Don't stop using your medicine after only one or twocigarettes. Stay with it. It will help you get back on track. ??? See your provider or another health professional. He or she can help motivate you to quit smoking. -Taken from www.smokefree.gov documented in this encounter Progress Notes * Sveta Rai MD - 06/09/2016 1:23 PM CDT SUBJECTIVE: Lucretia Rodriguez is a 50 y.o. female with Chief Complaint Patient presents with ??? ER UC Follow-up HPI: Here for abdominal pain problem. The patient complains about nausea for the last 3 weeks, decreased appetite, right upper quadrant abdominal pain, chills and sweats. she has history of cholecystectomy. patient went to [place] emergency room a week ago and had a CT scan of her abdomen and pelvis, she was told that was significant only for fatty liver. She saw Dr. Rose last Thursday and had some blood tests results pending. Her blood tests that I have checked on her 3 weeks ago was normal exceptfor elevated triglycerides. She currently complains of constant right upper quadrant pain. She denies diarrhea but c/o constipation with bowel movement every 3 days, also complaines about chills. Past Medical History Diagnosis Date ??? Heart attack 2010 ??? HTN (hypertension) ??? Hyperlipemia ??? Multiple sclerosis 2005 Dr. Almanza ??? H/O heart artery stent 2010 [id number] L[facility]( ) [facility] ??? H/O laparoscopic adjustable gastric banding 2009 ??? S/P tonsillectomy ??? Migraine ??? Hypothyroid ??? Depressive disorder, not elsewhere classified ??? Generalized anxiety disorder ??? Tension headache ??? Stomach ulcer ??? Anemia History Social History ??? Marital Status: Spouse Name: N/A Number of Children: 2 ??? Years of Education: N/A Occupational History ??? [employer] Social History Main Topics ??? Smoking status: Current Every Day Smoker -- 0.50 packs/day for 30 years Types: Cigarettes ??? Smokeless tobacco: Never Used ??? Alcohol Use: 0.0 oz/week 0 Not specified per week Comment: Rarely ??? Drug Use: No ??? Sexual Activity: Partners: Male Other Topics Concern ??? Exercise No Social History Narrative Family History Problem Relation Age of Onset ??? Cancer Maternal Grandmother laranyx ??? Cancer Maternal Grandfather lung ??? Diabetes Sister ??? Heart Failure Father 48 heart attack ??? Heart Failure Mother 63 heart attack ??? Hypercholesterolemia Mother ??? Hypertension Sister ??? Colon Cancer after age 50 or unknown Maternal Uncle colon ??? Cancer Other Maternal Uncle lung ??? Migraine Sister Allergies Allergen Reactions ??? Latex ??? Sulfa Drugs Review of Systems: General ROS: negative for - chills, fatigue or fever Psychological ROS: negative for - anxiety or depression Ophthalmic ROS: negative for - blurry vision Respiratory ROS: no cough, shortness of breath, or wheezing Cardiovascular ROS: no chest pain or dyspnea on exertion Gastrointestinal ROS: no abdominal pain, change in bowel habits, or black or bloody stools Genito-Urinary ROS: no dysuria, trouble voiding, or hematuria Musculoskeletal ROS: negative for - joint pain or joint stiffness Neurological ROS: no TIA or stroke symptoms OBJECTIVE: BP 124/76 mmHg Pulse 64 Temp(Src) 99.1 ??F Resp 14 Wt 116.574 kg (257 lb) BMI 44.09 kg/m2 General: alert, cooperative, no distress Eyes: PERRLA, EOMI, Sclera and conjunctiva clear Ears: bilateral TM's and external ear canals normal Neck: range of motion is intact, no masses, thyroid not enlarged, no adenopathy, supple Heart: normal rate, regular rhythm, normal S1, S2, no murmurs, rubs, clicks or gallops Lungs: clear to auscultation bilaterally Abdomen: soft, non-tender, non-distended, normal bowel sounds, positive for hepatomegaly. Extremities: no clubbing, cyanosis or edema Neuro: AOx3. Gait normal. Reflexes and motor strength normal and symmetric. Cranial nerves 2-12 andsensation grossly intact. ASSESSMENT: Abdominal pain, RUQ (right upper quadrant) Hospital discharge follow-up PLAN: Patient is scheduled for abdominal ultrasound tomorrow. Labs pending. Further recommendation pending the test results. Screenings Future Falls: Depression: PHQ-2:TOTAL POINT SCORE: 0 PHQ-9: documented in this encounter Plan of Treatment Upcoming Encounters Date Type Department Care Team (Late st Contact Info) Description 09/27/2024 2:20 PM AGRICULTURAL PILOT Office Visit [facility] [employer] [facility] [address] [facility] [address] [place] [address] [place] [address] [facility] [address] [place] [address] 09/28/2024 1:00 PM AGRICULTURAL PILOT Office [place] [facility] [place] [address] [facility] [address] , [address] [address] [place] [address] [address] documented as of this encounter Goals Goal Patient Goal Type Associated Problems Recent Progress Patient-Stated? Author Blood Pressure < 140/90 Blood Pressure 102/69(2022 11:30 AM AGRICULTURAL PILOT) No Melinda Newsome Quit smoking / using tobacco Lifestyle No Melinda Newsome documented as of this encounter Visit Diagnoses Diagnosis Abdominal pain, RUQ (right upper quadrant)- Primary Abdominal pain, right upper quadrant Hospital discharge follow-up Other follow-up examination documented in this encounter Care Teams Electron Gun Assembler Relationship Specialty Start Date End Date Sveta Rai MD PCP - General Internal Medicine 02/22/13 12/07/16 Stevenson Almanza MD Neurology 08/16/14 [place] [address] [address] Pulmonary Disease 02/14/16 documented as of this encounter
--- OUTSIDE RECORDS SUMMARY | 2024-09-18 09:33 | XMS_ITS | Encounter Summary ---
Author Organization [facility] Address [address] [facility] [place] [address] Care Team Providers Care Program Aide Name Role Phone Stevenson Almanza MD Unavailable [phone] Dequan Baxter MD Unavailable [phone] Anuj Schwartz MD Primary Care Provider [phone] Reason for Visit * Reason Comments Refill Request Encounter Details Date Type Department Care Team (Late st Contact Info) Description 10/20/[address] [facility] [employer] [facility] [address] [place] [address] [address] [place] [address] [place] [address] [address] Refill Request Social History Tobacco [...] Telephone Encounter - Mark Rose MD - 10/20/2017 3:11 PM NEWSPAPER COPY EDITOR OV for further refills. Also due for lab work PAPER COPY EDITOR documented in this encounter Plan of Treatment Upcoming Encounters Date Type Department Care Team (Late st Contact Info) Description 09/27/2024 2:20 PM NEWSPAPER COPY EDITOR Office Visit [facility] [address] [address] [place] [address] [facility] [address] [place] [address] 09/28/2024 1:00 PM NEWSPAPER COPY EDITOR Office Visit [facility] Health Medical Group - [address] [address] Barrett, [address] [address] [place] [address] [address] [address] [address] documented as of this encounter Goals Goal Patient Goal Type Associated Problems Recent Progress Patient-Stated? Author Blood Pressure < 140/90 Blood Pressure 102/69(2022 11:30 AM NEWSPAPER COPY EDITOR) No Melinda Newsome Quit smoking / using tobacco Lifestyle No Melinda Newsome documented as of this encounter Visit Diagnoses Not on filedocumented in this encounter Care Teams Program Aide Relationship Specialty Start Date End Date Anuj Schwartz MD [address] [place] [address] PCP - General Family Medicine 4/3/17 2/18/19 Stevenson Almanza MD Neurology 08/16/14 [place] [address] [place] [id number] Pulmonary Disease 02/14/16 documented as of this encounter
--- OUTSIDE RECORDS SUMMARY | 2024-09-18 09:33 | XMS_ITS | Encounter Summary ---
Author Organization [facility] Health Address [address] [facility] [place] [address] Care Team Providers Care Propagator Name Role Phone Sveta Rai MD Primary Care Provider Stevenson Almanza MD Unavailable [phone] Dequan Baxter MD Unavailable [phone] Reason for Referral * Radiology Services (Routine) - Closed Specialty Diagnoses / Procedures Referred By Contac t Referred To Contact Diagnoses Right leg swelling Procedures VAS RIGHT VENOUS DUPLEX Chitra Boykin APRN-CNP [address] [employer] [facility] [address] [place] [address] Referral ID Status Reason Start Date Expiration Date Visits Re quested Visits Authorized [id number] Closed 10/08/2016 04/06/2017 1 1 R RELATIONS OR PERSONNEL NEGOTIATOR Reason for Visit * Radiology Services (Routine) - Closed Specialty Diagnoses / Procedures Referred By Contac t Referred To Contact Diagnoses Right leg swelling Procedures VAS RIGHT VENOUS DUPLEX Chitra Boykin APRN-CNP [address] [employer] [facility] [address] [place] [address] Referral ID Status Reason Start Date Expiration Date Visits Re quested Visits Authorized [id number] Closed 10/08/2016 04/06/2017 1 1 Encounter Details Date Type Department Care Team (Latest Contact Info) Description 10/08/2016 3:02 PM LABOR RELATIONS OR PERSONNEL NEGOTIATOR - 10/08/2016 11:59 PM LABOR RELATIONS OR PERSONNEL NEGOTIATOR Hospital Encounter [facility] Health Vascular Services [address] [facility], [address] [place] [address] [place] [address] [facility] [address] [place] [phone] Discharge Disposition: Home or Self Care Social [...] 81 mg by mouth once daily 04/17/2020 B Complex Vitamins (B-COMPLEX/B-12 PO) Take 1,000 mcg by mouth. 12/08/2016 blood glucose (Verus HealthcareTOUCH TEST STRIPS) test strip Use 1 Strip [...] PO) Take by mouth once daily 12/31/2017 Guadalupe-3 Fatty Acids (FISH OIL) 1000 MG capsule [...] 09/02/2016 05/27/2017 documented as of this encounter Progress Notes * Chitra Carranza APRN-CNP - 10/08/2016 4:36 PM CST No clot R RELATIONS OR PERSONNEL NEGOTIATOR documented in this encounter Plan of Treatment Upcoming Encounters Date Type Department Care Team (Late st Contact Info) Description 09/27/2024 2:20 PM LABOR RELATIONS OR PERSONNEL NEGOTIATOR Office Visit [facility] [address] [facility] [address] [place] [phone] [place] [address] [facility] [address] [place] [address] 09/28/2024 1:00 PM LABOR RELATIONS OR PERSONNEL NEGOTIATOR [facility] - [address] Michele Mitchell, [facility] [address] [place] [address] [place] [address] [address] [facility] [address] [place] [address] documented as of this encounter Goals Goal Patient Goal Type Associated Problems Recent Progress Patient-Stated? Author Blood Pressure < 140/90 Blood Pressure 102/69(2022 11:30 AM LABOR RELATIONS OR PERSONNEL NEGOTIATOR) No Melinda Newsome Quit smoking / using tobacco Lifestyle No Melinda Newsome documented as of this encounter Procedures Procedure Name Priority Date/Time Associated Diagnosis Comments VAS RIGHT VENOUS DUPLEX LE Routine 10/08/2016 3:21 PM LABOR RELATIONS OR PERSONNEL NEGOTIATOR Right leg swelling documented in this encounter Results * VAS RIGHT VENOUS DUPLEX LE (10/08/2016 3:21 PM LABOR RELATIONS OR PERSONNEL NEGOTIATOR) Anatomical Region Laterality Modality Ultrasound 10/08/2016 3:0 1 PM LABOR RELATIONS OR PERSONNEL NEGOTIATOR Narrative Procedure Note Dennis Mijares MD - 10/08/[address] [facility] [place] [facility] [address] [facility], [address] [place] [address] Lower Extremity Venous Ultrasound Report Pat.Name: LUCRETIA RODRIGUEZ.ID: [id number] St.Date: 10/08/2016 Exam Time: 3:01:00 PM Study Type:LE Venous Age: 1 1965,51Y Sex: FEMALE Sonogrphr: Yousif Guerrero, T Pat. Stat.:Outpatient ICD - 9: I82.491 Acute embolism and thrombosis of other specified deep vein of right lower extremity CPT - 4: 79611 Procedures:Lower Extremity Venous - Right Race: 1 Visit ID: [id number] SUMMARY: There is no evidence of an [...] 04:10 PM Dennis Mijares MD Chitra Carranza BEEF SELECTOR-SUPERCALENDER OPERATOR HELPER VASCULAR LAB OR DERABLES documented in this encounter Visit Diagnoses Diagnosis Right leg swelling documented in this encounter Care Teams Propagator Relationship Specialty Start Date End Date Sveta Rai MD PCP - General Internal Medicine 02/22/13 12/07/16 Stevenson Almanza MD Neurology 08/16/14 [place] [address] [address] Pulmonary Disease 02/14/16 documented as of this encounter
--- OUTSIDE RECORDS SUMMARY | 2024-09-18 09:33 | XMS_ITS | Encounter Summary ---
Author Organization [facility] Address [address] [facility] [place] [address] Care Team Providers Care Iron Installer Name Role Phone Sveta Rai MD Primary Care Provider [phone] Stevenson Almanza MD Unavailable [phone] Dequan Baxter MD Unavailable [phone] Reason for Visit * Reason Comments Refill Request Encounter Details Date Type Department Care Team (Late Contact Info) Description 09/29/2016 Refill [facility] Medical [facility] - Family Medicine [address] [place] [address] Sveta Rai MD [address] [place] [address] DR NOON[address] [place] [address] Refill Request Social History Tobacco Use Types [...] * Telephone Encounter - Edith Cohn - 09/29/2016 9:26 AM CST Last Refill: 09/01/16 Last OV: 06/09/16 Upcoming OV: none ESTATE UNDERWRITER documented in this encounter Plan of Treatment Upcoming Encounters Date Type Department Care Team (Late st Contact Info) Description 09/27/2024 2:20 PM REAL ESTATE UNDERWRITER Office Visit [facility] [address] [facility] [address] [place] [address] [place] [address] [facility] [address] [place] [address] 09/28/2024 1:00 PM REAL ESTATE UNDERWRITER Office Visit [facility] Group - [address] [facility] , [address] [address] [place] [address] [facility] [address] [address] documented as of this encounter Goals Goal Patient Goal Type Associated Problems Recent Progress Patient-Stated? Author Blood Pressure < 140/90 Blood Pressure 102/69(2022 11:30 AM REAL ESTATE UNDERWRITER) No Melinda Newsome Quit smoking / using tobacco Lifestyle No Melinda Newsome documented as of this encounter Visit Diagnoses Not on filedocumented in this encounter Care Teams Iron Installer Relationship Specialty Start Date End Date Sveta Rai MD PCP - General Internal Medicine 02/22/13 12/07/16 Stevenson Almanza MD Neurology 08/16/14 [place] [address] [address] Pulmonary Disease 02/14/16 documented as of this encounter
--- OUTSIDE RECORDS SUMMARY | 2024-09-18 09:33 | XMS_ITS | Encounter Summary ---
Author Organization [facility] Address [address] [facility] [place] [address] Care Team Providers Care Steam Plant Records Clerk Name Role Phone Stevenson Almanza MD Unavailable [phone] Dequan Baxter MD Unavailable Anuj Schwartz MD Primary Care Provider [phone] Reason for Visit * Reason Comments Follow-up LISSETTE Encounter Details Date Type Department Care Team (Late st Contact Info) Description 05/27/2017 2:00 PM CDT Office Visit [facility] - Pulmonology [id number] [place] [address] [place] [address] [place] [address] [facility] [address] [place] [address] LISSETTE (obstructive sleep apnea) (Primary Dx); Morbid obesity, unspecified obesity type (HCC); HTN (hypertension), benign; Smoker Social History Tobacco Use Types Packs/Day Years [...] Sign Reading Time Taken Comments Blood Pressure 120/66 05/27/2017 1:42 PM CDT Pulse 84 05/27/2017 1:42 PM CDT Temperature 36.7 ??C (98.1 ??F) 05/27/2017 1:42 PM CD T Respiratory Rate 18 05/27/2017 1:42 PM CDT Oxygen Saturation 92% 05/27/2017 1:42 PM CDT room air Inhaled Oxygen Concentration - - Weight 112.5 kg (248 lb) 05/27/2017 1:42 PM CDT Height 162.6 cm (5' 4 ) 05/27/2017 1:42 PM CDT Body Mass Index 42.57 05/27/2017 1:42 PM CDT documented in this encounter Functional [...] this encounter Patient Instructions * Patient Instructions* Dequan Baxter MD - 05/27/2017 1:58 PM CDT You need to use the machine every night for at least more than 5 hours for optimal result. Follow up in the clinic in a year to check response and bring card and machine with you with your next visit. Do not drive if you are sleepy. Be cautious in the use of alcohol and sedative. Make every effort to loose weight. Call clinic and [employer] company if there is any problem or questions regarding the CPAP. Please try to quit smoking documented in this encounter Progress Notes * Dequan Baxter MD - 05/27/2017 1:53 PM CDT SLEEP MEDICINE FOLLOW UP- [facility] Name:Lucretia Rodriguez :1965 Sex:female PCP:Anuj Schwartz MD Chief Complaint: LISSETTE follow up History of Presenting Illness: Ms. Rodriguez is a 50 year female with history of LISSETTE. She had a home sleep study done 01/31/2016 which displayed mild sleep apnea with an apnea hypopnea index of 11.4-14.5 episodes per hour. She was diagnosed with sleep apnea in 2005 at [facility] and used the CPAP for 5-6 years but then moved and lost her machine but also in between had lap band surgery lost significant weight and did not think that she needs the machine. She had a repeat study due to snoring, gasping for air while sleepiness, night sweats, excessive daytime fatigue no matter how many hours of sleep she would get. Lack of energy. She does not reports falling asleep while driving, at work, while talking to people or at the computer. Never had a accident or near accident due to sleepiness.She reports gaining over 50 pounds in the last 12 months after losing her . She reports morning headaches, and dry mouth. She was started on auto CPAP [id number] and last visit changed to 10-20 cm by [employer] due to concern for high AHI on download.Patient clinically feels good with better sleep with no day time fatigue or sleepiness no snoring or gasping ESS 6. She does not reports falling still dozing while watching TV/reading. Admits to being depressed Sleep schedule as follows Bedtime from 9-10 pm to 5;45 am to 6;15 am with onset in minutes. Feels ok on waking up and does not takes naps. CPAP Adherence: 30 days reviewed >4 hour adherence 80%, average usage 8 hours 5 minutes, 95th percentile pressure 19.1, with a MAX pressure of 19.5, average AHI 6.6 episodes per hour. Large leak. Has not replace her mask for more than a year due to high deductible have a knee surgery in [place] ROS negative Past Medical History: Diagnosis Date ??? Anemia ??? Depressive disorder, not elsewhere classified ??? Generalized anxiety disorder ??? H/O heart artery stent 2010 [id number] LAD( ) [facility] ??? H/O laparoscopic adjustable gastric banding 2009 ??? Heart attack 2010 ??? HTN (hypertension) ??? Hyperlipemia ??? Hypothyroid ??? Migraine ??? Multiple sclerosis 2005 Dr. Almanza ??? S/P tonsillectomy ??? Stomach ulcer ??? Tension headache oOSA Past Surgical History: Procedure Laterality Date ??? [...] LAPAROSCOPIC ??? ULNAR NERVE RELEASE R side Family History Problem Relation Age of Onset ??? Cancer Maternal Grandmother laranyx ??? Cancer Maternal Grandfather lung ??? Diabetes Sister ??? Heart Failure Father 48 heart attack ??? Heart Failure Mother 63 heart attack ??? Hypercholesterolemia Mother ??? Hypertension Sister ??? Colon Cancer after age 50 or unknown Maternal Uncle colon ??? Cancer - Other Maternal Uncle lung ??? Migraine Sister Current Outpatient Prescriptions Medication Sig Dispense Refill ??? atorvastatin (LIPITOR) 10 MG tablet Take 1 Tab by mouth once daily ??? levothyroxine (SYNTHROID) 88 MCG tablet TAKE ONE TABLET BY MOUTH ONCE DAILY BEFORE BREAKFAST 90Tab 3 ??? Mobile Embrace ULTRA TEST STRIPS test strip USE ONE STRIP TO TEST BLOOD SUGAR ONCE DAILY 200 Strip 1 ??? metoprolol tartrate (LOPRESSOR) 50 MG tablet TAKE ONE TABLET BY MOUTH TWICE A DAY 180 Tab 1 ??? ALPRAZolam (XANAX) 0.5 MG tablet Take 1 Tab by mouth 3 times daily as needed ??? LINZESS 290 MCG capsule Take 1 Cap by mouth once daily ??? fluticasone propionate (FLONASE) 50 MCG/ACT nasal spray USE TWO SPRAYS IN EACH NOSTRIL ONCE DAILY 3 Bottle 3 ??? lisinopril (PRINIVIL; ZESTRIL) 40 MG tablet TAKE ONE TABLET BY MOUTH ONCE DAILY 30 Tab 3 ??? amitriptyline (ELAVIL) 25 MG tablet Take 50 mg by mouth at bedtime ??? ondansetron, disintegrating, (ZOFRAN ODT) [address] ONE TABLET ON TONGUE AND DISSOLVE ONCE DAILY NEEDED FOR NAUSEA/VOMITING ALLOW TABLET TO DISSOLVE ON THE TONGUE 60 Tab 1 ??? ONE TOUCH LANCETS MISC Use [...] Use once daily 1 Kit 0 ??? Avella-3 Fatty Acids (FISH OIL) 1000 MG capsule [...] 5,000 Units by mouth once daily ??? zolpidem (AMBIEN) 5 MG tablet Take 1 Tab by mouth nightly as needed for Insomnia (Patient not taking: Reported on 12/08/2016) 30 Tab 1 ??? traMADol (ULTRAM) 50 MG tablet Reported on 12/08/2016 No current facility-administered medications for this visit. Allergies Allergen Reactions ??? Latex ??? Sulfa Drugs ??? Adhesive Sensitivity Rash History Social History ??? Marital Status: Spouse Name: N/A Number of Children: 2 ??? Years of Education: N/A Occupational History ??? [employer] Social History Main Topics ??? Smoking status: Current Every Day Smoker -- 1/2 packs/day for 30 years Types: Cigarettes Start date: 08/18/2013 ??? Smokeless tobacco: Never Used ??? Alcohol Use: 0.0 oz/week 0 Not specified per week Comment: Rarely ??? Drug Use: No ??? Sexual Activity: Partners: Male Other Topics Concern ??? Exercise No Social History Narrative Review of Systems General: Denies weight loss, fever, chills, night sweats, dizziness, weakness, or loss of appetite.Reports fatigue Skin: Denies skin/hair/nail changes, rash, or ulcers. Head: Denies headaches, vertigo, or syncope. Eyes: Denies loss of vision, diplopia, or excessive tearing. Ears: Denies tinnitus, vertigo, pain, or pressure in the ears. Nose: Denies rhinitis, sinusitis, discharge, obstruction, or epistaxis. Throat: Denies hoarseness, or sore throats. Mouth: Denies soreness of mouth or tongue. Neck: Denies suppurative lesions, or enlargement of lymph nodes. Pulmonary: Denies pleurisy, shortness of breath, wheezing, dyspnea, orthopnea, cough, or sputum production CV: Denies palpitation, tachycardia, irregular rhythm, pain in chest, or edema. GI: Denies changes in weight, dysphagia, nausea, abdominal pain, or vomiting. Objective: GENERAL: Lucretia Rodriguez is a 51 y.o. female in no distress. Body mass index is 42.57 kg/(m^2). Vitals: 05/27/17 1342 BP: 120/66 Pulse: 84 Resp: 18 Temp: 98.1 ??F SpO2: 92% Weight: 112.5 kg (248 lb) Wt Readings from Last 3 Encounters: 05/27/17 112.5 kg (248 lb) 12/08/16 116.6 kg (257 lb) 10/08/16 117.5 kg (259 lb) HEENT: The nares are not congested. The oropharynx narrow, No retrognathia and otherwise is benign.Mallampati IV. WILLI , EOMI , normocephalic, No overbite, No overjet NECK: Neck size 17.5 There is no cervical nor supraclavicular adenopathy. The carotids are unremarkable. The thyroid is unremarkable. There is no obvious JVD. The trachea is midline. CHEST: There is equal expansion with good effort. Percussion without dullness. Auscultation revealsclear breath sounds with no wheezing or rales CARDIAC: Regular rate and rhythm. No murmur. No rub. No gallop. ABDOMEN: Soft and non-tender. No appreciable organomegaly EXTREMITIES: No clubbing. No cyanosis. No edema. NEUROLOGIC: The patient is alert and oriented. Mood is normal. Motor exam is non-focal. 5/5 power Gait is normal. SKIN: Unremarkable. Assessment/Plan: Obstructive Sleep Apnea Mild severity likely underestimated because of the home testing. On auto CPAP at 10-20 cm water Resmed Airsense 10 CPAP Autoset Excellent adherence and clinical response ,continue to use nightly Has a full face mask which has not been replaced in a year there is a lot of leak I asked her to change it if she wants to go online since she cannot afford another 1 because of her high deductible. ?? I also told her to use the machine in the postop. Because of the increased risk off Orthopedic surgery and obstructive sleep apnea. ?? discussed the association of sleep apnea with high blood pressure, excessive day time sleepinessand increase risk of automobile accidents. Other cardio and cerebrovascular risk associations ?? Regular sleep wake cycle with adequate hours of sleep has been stressed as well. Morbid Obesity Weight loss emphasized. The association between obesity and obstructive sleep apnea was explained . severity of obstructive sleep apnea will improve with weight loss. She has already lost more than 12 lb Hypertension Association with lissette discussed Smoker Denies cough, wheezing , sob Advised to quit smoking Follow up in 12 months for reassessment It was a pleasure taking part in Ms. Rodriguez's care. Dequan Baxter MD Pulmonary Disease documented in this encounter Plan of Treatment Upcoming Encounters Date Type Department Care Team (Late st Contact Info) Description 09/27/2024 2:20 PM MACHINE DEICER ELEMENT WINDER Office Visit [facility] Neurosciences [address] [phone] [place] [address] [facility] [address] [place] [phone] 09/28/2024 1:00 PM MACHINE DEICER ELEMENT WINDER Office Visit [facility] [place] [address] Michele Barrett, [facility] [address] [place] [address] [place] [address] [address] [facility] [address] [place] [address] documented as of this encounter Goals Goal Patient Goal Type Associated Problems Recent Progress Patient-Stated? Author Blood Pressure < 140/90 Blood Pressure 102/69(2022 11:30 AM MACHINE DEICER ELEMENT WINDER) No Melinda Newsome Quit smoking / using tobacco Lifestyle No Melinda Newsome documented as of this encounter Visit Diagnoses Diagnosis LISSETTE (obstructive sleep apnea)- Primary Obstructive sleep apnea (adult) (pediatric) Morbid obesity, unspecified obesity type (HCC) HTN (hypertension), benign Essential hypertension, benign Smoker Tobacco use disorder documented in this encounter Care Teams Steam Plant Records Clerk Relationship Specialty Start Date End Date Anuj Schwartz MD [address] [place] [id number] PCP - General Family Medicine 12/08/16 10/25/18 Stevenson Almanza MD Neurology 08/16/14 [place] [id number] [place] [id number] Pulmonary Disease 02/14/16 documented as of this encounter
--- OUTSIDE RECORDS SUMMARY | 2024-09-18 09:33 | XMS_ITS | Encounter Summary ---
Author Organization [facility] Address [address] [facility] [place] [address] Care Team Providers Care Chemical Engraver Name Role Phone Stevenson Almanza MD Unavailable [phone] Dequan Baxter MD Unavailable [phone] Anuj Schwartz MD Primary Care Provider [phone] Reason for Visit * Reason Comments Refill Request Encounter Details Date Type Department Care Team (Late st Contact Info) Description 01/26/2017 Refill [facility] Medical [facility] - Family Medicine [address] [place] [address] Sveta Rai MD [address] [place] [address] DR NOONAN [address] [place] [id number] Refill Request Social History Tobacco Use Types [...] * Telephone Encounter - Unique Truong - 01/26/2017 12:52 PM CDT Lucretia Rodriguez Requested Prescriptions Pending Prescriptions Disp Refills ??? levothyroxine (SYNTHROID) 88 MCG tablet [Pharmacy Med Name: LEVOTHYROXINE 88 MCG TABLET] 30 Tab3 Sig: TAKE ONE TABLET BY MOUTH ONCE DAILY BEFORE BREAKFAST Allergies Allergen Reactions ??? Latex ??? Sulfa Drugs ??? Adhesive Sensitivity Rash Last refill-02/27/16 Last OV-06/09/16 Future OV-none documented in this encounter Plan of Treatment Upcoming Encounters Date Type Department Care Team (Late st Contact Info) Description 09/27/2024 2:20 PM RECORDS AND INFORMATION MANAGER Office Visit [facility] Neurosciences [address] [facility] [address] [place] [address] [place] [address] [facility] [address] [place] [phone] 09/28/2024 1:00 PM RECORDS AND INFORMATION MANAGER Office Visit [facility] [place] [address] Michele Barrett [facility] [address] [place] [address] [place] [address] [address] [facility] [address] [place] [address] documented as of this encounter Goals Goal Patient Goal Type Associated Problems Recent Progress Patient-Stated? Author Blood Pressure < 140/90 Blood Pressure 102/69(2022 11:30 AM RECORDS AND INFORMATION MANAGER) No Melinda Newsome Quit smoking / using tobacco Lifestyle No Melinda Newsome documented as of this encounter Visit Diagnoses Not on filedocumented in this encounter Care Teams Chemical Engraver Relationship Specialty Start Date End Date Anuj Schwartz MD [address] [place] [address] PCP - General Family Medicine 12/08/16 10/25/18 Stevenson Almanza MD Neurology 08/16/14 [place] [address] [address] Pulmonary Disease 02/14/16 documented as of this encounter
--- OUTSIDE RECORDS SUMMARY | 2024-09-18 09:33 | XMS_ITS | Encounter Summary ---
Author Organization [facility] Address [address] [facility] [place] [address] Care Team Providers Care Auxiliary Plant Operator Name Role Phone Stevenson Almanza MD Unavailable [phone] Dequan Baxter MD Unavailable [phone] Anuj Schwartz MD Primary Care Provider [phone] Encounter Details Date Type Department Care Team (Late st Contact Info) Description 06/30/2017 Hospital Outpatient Visit Historic [facility] IVR [address] [place] [phone] Matt Nguyen MD [address] [facility] [address] [place] [address] Discharge Disposition: Home or Self Care Social [...] No 10/23/2014 documented as of this encounter H&P Notes * Sanket Mcleod MD - 06/30/2017 10:14 AM CDT H&P Signed by Sanket Mcleod MD on 06/30/2017 10:23 AM Author: Sanket Mcleod MD Service: Radiology Author Type: Resident Date of Service: 06/30/2017 10:14 AM Filed: 06/30/2017 10:23 AM Note Type: H&P Status: Signed Centrifuge Separator Operator: Sanket Mcleod MD (Resident) Cosigner: Aubrey Nguyen MD at 06/30/2017 1:50 PM [facility] Short Pre-Procedure History and Physical Patient: Lucretia Rodriguez Age: 51 y.o. Date of : 1965 Date of Admission: 06/30/2017 Date: 06/30/2017 Location: [facility] IVR Procedure: Transjugular liver biopsy and associated procedures Pre-Procedure Assessment/Data Subjective: Patient is a 51 y.o. female with PMH of morbid obesity status post lap band procedure, metabolic syndrome, and dull aching right upper quadrant pain. Ultrasound and electrography confirmed diffuse fatty infiltration throughout the liver. She presents to IVR today for random liver biopsy. Problem List as of 06/30/2017 Reviewed: 06/22/2017 9:34 AM by Baldomero Flores MD Fatty liver Metabolic syndrome Essential hypertension Mixed hyperlipidemia Class 3 obesity with body mass index (BMI) of 40.0 to 44.9 in adult, unspecified obesity type, unspecified whether serious comorbidity present Past Medical History: Diagnosis Date ??? Allergic ??? Anemia ??? Anxiety ??? Arthritis ??? Colitis ??? Depression ??? Diabetes mellitus ??? Heart attack ??? Hypertension ??? Multiple sclerosis ??? Obstructive sleep apnea ??? Thyroid disease Past Surgical History: Procedure Laterality Date ??? HX KNEE REPLACMENT Left 06/16/2017 ??? HX STERILIZATION ??? HX TONSILLECTOMY ??? CO ANESTH,DX ARTHROSCOPIC PROC KNEE JOINT Left ??? CO LAP,CHOLECYSTECTOMY ??? CO STOMACH SURGERY PROCEDURE UNLISTED ??? STENT PLACEMENT Allergies Allergen Reactions ??? Latex Other (See Comments) ??? Sulfa Antibiotics Other (See Comments) Social History Substance Use Topics ??? Smoking status: Current Every Day Smoker Packs/day: 0.50 Years: 32.00 ??? Smokeless tobacco: Never Used ??? Alcohol use No Family History Problem Relation Age of Onset ??? Diabetes - Unknown type Sister ??? Hypertension Sister Review of Systems A comprehensive review of systems was negative except for mild nausea which ser reports is normal for her. Objective: General: The patient is alert, oriented and in no apparent distress. LUNGS: Non-labored CVS: Regular rate ABDOMEN: Soft, no tenderness, masses or organomegaly. Data Review: CBC: Lab Results Component Value Date WBC 5.8 06/10/2017 RBC 5.07 06/10/2017 HGB 14.8 06/10/2017 HCT 43.4 06/10/2017 PLT 234 06/10/2017 BMP: Lab Results Component Value Date GLU 95 06/10/2017 NA 143 06/10/2017 K 4.2 06/10/2017 CL 100 06/10/2017 CO2 22 06/10/2017 BUN 16 06/10/2017 CREATININE 0.99 06/10/2017 CALCIUM 9.9 06/10/2017 CMP: Lab Results Component Value Date ALB 4.7 06/10/2017 ALT 23 06/10/2017 AST 22 06/10/2017 GLU 95 06/10/2017 NA 143 06/10/2017 K 4.2 06/10/2017 CL 100 06/10/2017 CO2 22 06/10/2017 BUN 16 06/10/2017 CREATININE 0.99 06/10/2017 CALCIUM 9.9 06/10/2017 TBILI 0.4 06/10/2017 PROT 7.5 06/10/2017 Coagulation: Lab Results Component Value Date PT 10.5 06/10/2017 INR 1.0 06/10/2017 Assessment: 51 year old female with fatty liver, concern for BOONE cirrhosis. Plan: -Informed consent obtained -Proceed with random liver biopsy as planned. Sanket Mcleod MD documented in this encounter Plan of Treatment Upcoming Encounters Date Type Department Care Team (Late st Contact Info) Description 09/27/2024 2:20 PM PAID SEARCH MARKETING STRATEGIST Office Visit [facility] Health Neurosciences [address] [place] [phone] [place] [address] [facility] [address] [place] [address] 09/28/2024 1:00 PM PAID SEARCH MARKETING STRATEGIST Office Visit [facility] [place] [address] [facility] [address] [place] [address] [place] [address] [address] [facility] [address] [place] [address] documented as of this encounter Goals Goal Patient Goal Type Associated Problems Recent Progress Patient-Stated? Author Blood Pressure < 140/90 Blood Pressure 102/69(2022 11:30 AM PAID SEARCH MARKETING STRATEGIST) No Melinda Newsome Quit smoking / using tobacco Lifestyle No Melinda Newsome documented as of this encounter Visit Diagnoses Not on filedocumented in this encounter Care Teams Auxiliary Plant Operator Relationship Specialty Start Date End Date Anuj Schwartz MD [address] [facility] [place] [phone] PCP - General Family Medicine 12/08/16 10/25/18 Stevenson Almanza MD Neurology 08/16/14 [place] [address] [facility] [address] [place] [address] Pulmonary Disease 02/14/16 documented as of this encounter
--- OUTSIDE RECORDS SUMMARY | 2024-09-18 09:33 | XMS_ITS | Encounter Summary ---
Author Organization [facility] Health Address [address] [facility] [place] [address] Care Team Providers Care Clerical Adjuster Name Role Phone Stevenson Almanza MD Unavailable [phone] Dequan Baxter MD Unavailable [phone] Anuj Schwartz MD Primary Care Provider [phone] Encounter Details Date Type Department Care Team (Latest Contact Info) Description 06/30/2017 Hospital Outpatient Visit [facility] [address] [place] [id number] Discharge Disposition: Home or Self Care Social [...] Sign Reading Time Taken Comments Blood Pressure 162/80 06/30/2017 12:15 PM CDT Pulse 71 06/30/2017 12:15 PM CDT Temperature - - Respiratory Rate 20 06/30/2017 12:15 PM CDT Oxygen Saturation 95% 06/30/2017 12:15 PM CDT Inhaled Oxygen Concentration - - Weight 108.9 kg (240 lb) 06/30/2017 9:24 AM CDT Height 162.6 cm (5' 4 ) 06/30/2017 9:24 AM CDT Body Mass Index 41.2 06/30/2017 9:24 AM CDT documented in this encounter Functional Status [...] as of this encounter Progress Notes * Indira Huntley MD - 06/30/2017 12:23 PM CDT Progress Notes Signed by Roseann Barrera RN on 06/30/2017 12:49 PM Author: Roseann Barrera RN Service: Interventional Radiology Author Type: Registered Nurse Date of Service: 06/30/2017 12:23 PM Filed: 06/30/2017 12:49 PM Note Type: Progress Notes Status: Signed Electronic Integrated Systems Mechanic: Roseann Barrera RN (Registered Nurse) Pt given discharge instructions verbalized understanding. Pt dressing to R neck is CDI. Pt to main lobby via wheelchair. * Indira Huntley MD - 06/30/2017 11:49 AM CDT Progress Notes Signed by Roseann Barrera RN on 06/30/2017 11:49 AM Author: Roseann Barrera RN Service: Interventional Radiology Author Type: Registered Nurse Date of Service: 06/30/2017 11:49 AM Filed: 06/30/2017 11:49 AM Note Type: Progress Notes Status: Signed Electronic Integrated Systems Mechanic: Roseann Barrera RN (Registered Nurse) Pt alert and awake pt dressing to R neck is CDI. Pt eating and drinking currently, family at bedside. * Indira Huntley MD - 06/30/2017 11:41 AM CDT Progress Notes Signed by Stefany Tinoco RN on 06/30/2017 11:41 AM Author: Stefany Tinoco RN Service: Nephrology Author Type: Registered Nurse Date of Service: 06/30/2017 11:41 AM Filed: 06/30/2017 11:41 AM Note Type: Progress Notes Status: Signed Electronic Integrated Systems Mechanic: Stefany Tinoco RN (Registered Nurse) Pt moved to hold report given. * Indira Huntley MD - 06/30/2017 11:32 AM CDT Progress Notes Signed by Stefany Tinoco RN on 06/30/2017 11:33 AM Author: Stefany Tinoco RN Service: Nephrology Author Type: Registered Nurse Date of Service: 06/30/2017 11:32 AM Filed: 06/30/2017 11:33 AM Note Type: Progress Notes Status: Signed Electronic Integrated Systems Mechanic: Stefany Tinoco RN (Registered Nurse) Rt neck dry dressing applied with a tegaderm covering. Pt tolerated well. * Indira Huntley MD - 06/30/2017 11:23 AM CDT Progress Notes Signed by Stefany Tinoco RN on 06/30/2017 11:24 AM Author: Stefany Tinoco RN Service: Nephrology Author Type: Registered Nurse Date of Service: 06/30/2017 11:23 AM Filed: 06/30/2017 11:24 AM Note Type: Progress Notes Status: Signed Electronic Integrated Systems Mechanic: Stefany Tinoco RN (Registered Nurse) Wedge 16, free hepatic 14, and right atrium 6 * Indira Huntley MD - 06/29/2017 2:02 PM CDT Progress Notes Signed by Santa Renner RN on 06/29/2017 2:03 PM Author: Santa Renner RN Service: (none) Author Type: Registered Nurse Date of Service: 06/29/2017 2:02 PM Filed: 06/29/2017 2:03 PM Note Type: Progress Notes Status: Signed Electronic Integrated Systems Mechanic: Santa Renner RN (Registered Nurse) Called to confirm procedure appointment, left information on voicemail, requested return phone callwith questions. * ProviderIndira MD - 06/16/2017 2:47 PM CDT Progress Notes Signed by Santa Renner RN on 06/16/2017 2:50 PM Author: Santa Renner RN Service: (none) Author Type: Registered Nurse Date of Service: 06/16/2017 2:47 PM Filed: 06/16/2017 2:50 PM Note Type: Progress Notes Status: Signed Electronic Integrated Systems Mechanic: Santa Renner RN (Registered Nurse) Called to review pre-procedure instructions, instructed to hold aspirin 5 days before procedure, shared information with patient's daughter, requested return phone call to review information. documented in this encounter OR Notes * Brief Op Note - Sanket Mcleod MD - 06/30/2017 12:08 PM CDT Brief Op Note Signed by Sanket Mcleod MD on 06/30/2017 12:10 PM Author: Sanket Mcleod MD Service: Radiology Author Type: Resident Date of Service: 06/30/2017 12:08 PM Filed: 06/30/2017 12:10 PM Note Type: Brief Op Note Status: Attested Electronic Integrated Systems Mechanic: Sanket Mcleod MD (Resident) Cosigner: Michelle Nguyen MD at 06/30/2017 1:51 PM Attestation signed by Michelle Nguyen MD at 06/30/2017 1:51 PM I was present for the entire procedure. Michelle Nguyen MD 06/30/2017/1:51 PM IR Brief Post-Procedure Note Lucretia Rodriguez Attending: Michelle Nguyen MD Food And Beverage Intern: Sanket Mcleod MD Diagnosis: Fatty liver disease Description of procedure: Image guided transjugular liver biopsy and measurement of hepatic pressures Anesthesia: Moderate Medication used: 2 mg Versed IV; 100 micrograms Fentanyl IV. Immediate complications: none Estimated Blood Loss: Minimal Specimens: Hepatic core biopsies x 3 See detailed procedure note with images in PACS (Synapse ). The patient tolerated the procedure well without incident or complication and was returned to Holding in preprocedural condition . 06/30/2017 12:08 PM documented in this encounter Plan of Treatment Upcoming Encounters Date Type Department Care Team (Late st Contact Info) Description 09/27/2024 2:20 PM BUILDER'S LABOURER [facility] Visit [facility] hospital [address] [facility] [address] [place] [address] [place] [address] [facility] [address] [place] [address] 09/28/2024 1:00 PM BUILDER'S LABOURER Office Visit [facility] [place] [address] [address] Barrett, [address] [address] [place] [address] [address] [facility] [address] [place] [address] documented as of this encounter Goals Goal Patient Goal Type Associated Problems Recent Progress Patient-Stated? Author Blood Pressure < 140/90 Blood Pressure 102/69(2022 11:30 AM BUILDER'S LABOURER) No Melinda Newsome Quit smoking / using tobacco Lifestyle No Melinda Newsome documented as of this encounter Procedures Procedure Name Priority Date/Time Associated Diagnosis Comments IR VENOGRAM PROCEDURAL CODE Routine 06/30/2017 11:31 AM CDT IR US GUIDE VASCULAR ACCESS Routine 06/30/2017 11:31 AM CDT IR BIOPSY TRANSCATHETER Routine 06/30/2017 11:31 AM CDT IR BIOPSY TRANSCATHETER Routine 06/30/2017 11:31 AM CDT IR VENOGRAM HEPATIC W HEMODYNAMICS Routine 06/30/2017 11:31 AM CDT PATHOLOGY TISSUE Routine 06/30/2017 11:1 1 AM CDT documented in this encounter Results * IR BIOPSY TRANSCATHETER (06/30/2017 11:31 AM CDT) Anatomical Region Laterality Modality Abdomen, Lung, Chest [...] documented. After series of exchanges a ??10 Japanese vascular sheath was placed. Using a 5 Japanese Kumpe catheter and Glidewire, the right hepatic [...] in the right hepatic vein and using [employer] transjugular biopsy set, 3 core samples were [...] was documented.After series of exchanges a 10 Japanese vascular sheath was placed. Using a 5 Japanese Kumpe catheter and Glidewire, the right hepatic [...] placed in the right hepatic vein andusing [employer] transjugular biopsy set, 3 core samples were obtained. Sampleswere given to pathology service. Post-biopsy venogram was unremarkable. The sheath was removed and hemostasis was achieved with manualcompression. Sterile dressing was applied and the patient was transferredin stable condition. The patient tolerated the procedure well and [facility]. There were no [...] documented. After series of exchanges a ??10 Japanese vascular sheath was placed. Using a 5 Japanese Kumpe catheter and Glidewire, the right hepatic [...] in the right hepatic vein and using [employer] transjugular biopsy set, 3 core samples were [...] was documented.After series of exchanges a 10 Japanese vascular sheath was placed. Using a 5 Japanese Kumpe catheter and Glidewire, the right hepatic [...] placed in the right hepatic vein andusing [employer] transjugular biopsy set, 3 core samples were obtained. Sampleswere given to pathology service. Post-biopsy venogram was unremarkable. The sheath was removed and hemostasis was achieved with manualcompression. Sterile dressing was applied and the patient was transferredin stable condition. The patient tolerated the procedure well and [facility]. There were no [...] documented. After series of exchanges a ??10 Japanese vascular sheath was placed. Using a 5 Japanese Kumpe catheter and Glidewire, the right hepatic [...] in the right hepatic vein and using [employer] transjugular biopsy set, 3 core samples were [...] was documented.After series of exchanges a 10 Japanese vascular sheath was placed. Using a 5 Japanese Kumpe catheter and Glidewire, the right hepatic [...] placed in the right hepatic vein andusing [employer] transjugular biopsy set, 3 core samples were obtained. Sampleswere given to pathology service. Post-biopsy venogram was unremarkable. The sheath was removed and hemostasis was achieved with manualcompression. Sterile dressing was applied and the patient was transferredin stable condition. The patient tolerated the procedure well and [facility]. There were no [...] MICHELLE NGUYEN on 07/01/2017 9:05 AM. Neena ELLIS ORD ERABLES * IR VENOGRAM PROCEDURAL CODE (06/30/2017 11:31 [...] documented. After series of exchanges a ??10 Japanese vascular sheath was placed. Using a 5 Japanese Kumpe catheter and Glidewire, the right hepatic [...] in the right hepatic vein and using [employer] transjugular biopsy set, 3 core samples were [...] was documented.After series of exchanges a 10 Japanese vascular sheath was placed. Using a 5 Japanese Kumpe catheter and Glidewire, the right hepatic [...] placed in the right hepatic vein andusing [employer] transjugular biopsy set, 3 core samples were obtained. Sampleswere given to pathology service. Post-biopsy venogram was unremarkable. The sheath was removed and hemostasis was achieved with manualcompression. Sterile dressing was applied and the patient was transferredin stable condition. The patient tolerated the procedure well and was transferred to theholding area in stable condition. There were no [...] IR BIOPSY TRANSCATHETER (06/30/2017 11:31 AM CDT) Anatomical Region Laterality Modality Abdomen, Lung, Chest [...] documented. After series of exchanges a ??10 Japanese vascular sheath was placed. Using a 5 Japanese Kumpe catheter and Glidewire, the right hepatic [...] in the right hepatic vein and using [employer] transjugular biopsy set, 3 core samples were [...] was documented.After series of exchanges a 10 Japanese vascular sheath was placed. Using a 5 Japanese Kumpe catheter and Glidewire, the right hepatic [...] placed in the right hepatic vein andusing [employer] transjugular biopsy set, 3 core samples were obtained. Sampleswere given to pathology service. Post-biopsy venogram was unremarkable. The sheath was removed and hemostasis was achieved with manualcompression. Sterile dressing was applied and the patient was transferredin stable condition. The patient tolerated the procedure well and [facility]. There were no [...] AM CDT) Surgical Pathology Tissue ACCESSION No: [id number] CLINICAL HISTORY: Fatty liver, liver biopsy. FINAL [...] condensation. The PAS-D stain is negative for [id number] globules. Iron stain is negative. 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 The total NAFLD activity score is 3/8, and the fibrosis is consistent with a very early stage 1a. DC/MICAELA GROSS DESCRIPTION: Submitted fixed in formalin in [...] by Gregoria Gómez MD. Electronically signed 07/01/2017 [facility] PATHOLOGY LAB (ZE[facility]) Biopsy, Needle ENTIRE LIVER / Unknown 06/30/2017 11:11 AM CDT 06/30/2017 12:27 PM CDT Narrative [facility] PATHOLOGY LAB ([facility]) - 07/01/2017 3:59 PM CDT PROBLEM LIST: The problems are not reviewed yet. Please review them in the Problem List activity and refresh this SmartLink. PRE-OP DIAGNOSIS: ??* No pre-op diagnosis entered * OPERATIVE PROCEDURE / FINDINGS: ??* No procedures listed * POST-OP DIAGNOSIS: * No post-op diagnosis entered * Neena Flores MD LAB - PATHOLOGY/CYTOLOGY ORDERABLES [facility] PATHOLOGY LAB ([facility]) documented in this encounter Visit Diagnoses Diagnosis Fatty (change of) liver, not elsewhere classified documented in this encounter Care Teams Clerical Adjuster Relationship Specialty Start Date End Date Anuj Schwartz MD [address] [place] [address] PCP - General Family Medicine 12/08/16 10/25/18 Stevenson Almanza MD Neurology 08/16/14 [place] [address] [address] Pulmonary Disease 02/14/16 documented as of this encounter
--- OUTSIDE RECORDS SUMMARY | 2024-09-18 09:33 | XMS_ITS | Encounter Summary ---
Author Organization [facility] Address [address] [facility] [place] [address] Care Team Providers Care Red Hat Linux Engineer Name Role Phone Sveta Rai MD Primary Care Provider Stevenson Almanza MD Unavailable [phone] Dequan Baxter MD Unavailable [phone] Reason for Visit * Reason Onset Date Comments Letter for School or Work 05/29/2016 Encounter Details Date Type Department Care Team (Late Contact Info) Description 05/29/2016 Telephone [facility] Medical [facility] - Family Medicine [address] [place] [address] Sveta Rai MD [address] [place] [address] [address] Letter for School or Work Social History Tobacco Use Types Packs/Day Years [...] * Telephone Encounter - Edith Cohn - 05/29/2016 11:59 AM CDT Letter faxed. * Telephone Encounter - Edith Cohn - 05/29/2016 11:35 AM CDT Per this is okay. * Telephone Encounter - Sejal Tinoco - 05/29/2016 8:53 AM CDT Patient stated she been having diarrhea and vomiting since 05/26/16 -05/30/16. Patient would like to know if she can get a letter to excuse her from work. Patient would also like to know if the office can fax the letter to [phone] ATT:Sonia documented in this encounter Plan of Treatment Upcoming Encounters Date Type Department Care Team (Late st Contact Info) Description 09/27/2024 2:20 PM TANDEM OPERATOR Office Visit [facility] Neurosciences [address] [facility] [address] [place] [address] [place] [address] [facility] [address] [place] [address] 09/28/2024 1:00 PM TANDEM OPERATOR Office Visit [facility] [place] [address] [facility][note 3], [facility] [address] [place] [address] [place] [address] [address] documented as of this encounter Goals Goal Patient Goal Type Associated Problems Recent Progress Patient-Stated? Author Blood Pressure < 140/90 Blood Pressure 102/69(2022 11:30 AM TANDEM OPERATOR) No Melinda Newsome Quit smoking / using tobacco Lifestyle No Melinda Newsome documented as of this encounter Visit Diagnoses Not on filedocumented in this encounter Care Teams Red Hat Linux Engineer Relationship Specialty Start Date End Date Sveta Rai MD PCP - General Internal Medicine 02/22/13 12/07/16 Stevenson Almanza MD Neurology 08/16/14 [place] [address] [facility] [address] [place] [address] Pulmonary Disease 02/14/16 documented as of this encounter
--- OUTSIDE RECORDS SUMMARY | 2024-09-18 09:33 | XMS_ITS | Encounter Summary ---
Author Organization [facility] Address [address] [facility] [place] [address] Care Team Providers Care Medical Record Coder Name Role Phone Stevenson Almanza MD Unavailable [phone] Dequan Baxter MD Unavailable [phone] Anuj Schwartz MD Primary Care Provider Reason for Visit * Reason Comments Refill Request Encounter Details Date Type Department Care Team (Late st Contact Info) Description 10/19/2017 Refill [facility] [address] [place] [address] [address] [place] [address] [place] [address] [address] Refill Request Social History Tobacco [...] Telephone Encounter - Mark Rose MD - 10/19/2017 2:36 PM ENGINEER GEOPHYSICAL LABORATORY Needs ov for further refills [facility] documented in this encounter Plan of Treatment Upcoming Encounters Date Type Department Care Team (Late st Contact Info) Description 09/27/2024 2:20 PM ENGINEER GEOPHYSICAL LABORATORY Office Visit [facility] Neurosciences [address] [address] [place] [address] [phone] 09/28/2024 1:00 PM ENGINEER GEOPHYSICAL LABORATORY Office Visit [facility] Health Medical Group - [address] DePmoris Barrett, [address] [address] [place] [address] [address] [facility] [address] [place] [address] documented as of this encounter Goals Goal Patient Goal Type Associated Problems Recent Progress Patient-Stated? Author Blood Pressure < 140/90 Blood Pressure 102/69(2022 11:30 AM ENGINEER GEOPHYSICAL LABORATORY) No Melinda Newsome Quit smoking / using tobacco Lifestyle No Melinda Newsome documented as of this encounter Visit Diagnoses Not on filedocumented in this encounter Care Teams Medical Record Coder Relationship Specialty Start Date End Date Anuj Schwartz MD [address] [place] [address] PCP - General Family Medicine 12/08/16 10/25/18 Stevenson Almanza MD Neurology 08/16/14 [place] [address] [place] [id number] Pulmonary Disease 02/14/16 documented as of this encounter
--- OUTSIDE RECORDS SUMMARY | 2024-09-18 09:33 | XMS_ITS | Encounter Summary ---
Author Organization [facility] Health Address [address] [facility] [place] [address] Care Team Providers Care Filter Press Supervisor Name Role Phone Stevenson Almanza MD Unavailable [phone] Dequan Baxter MD Unavailable [phone] Anuj Schwartz MD Primary Care Provider [phone] Encounter Details Date Type Department Care Team (Late st Contact Info) Description 10/20/2017 Orders Only [facility] Group [address] [facility], [facility] [address] [place] [address] [place] [address] [address] Abnormal LFTs Social History Tobacco Use Types Packs/Day Years [...] as of this encounter Progress Notes * Sanjuana Andrade RN - 11/06/2017 9:23 AM CST Left message on voicemail with results CASE MANAGER * Mark Rose MD - 11/05/2017 8:10 PM CST LFTs essentially normal Will review at OV CASE MANAGER documented in this encounter Plan of Treatment Upcoming Encounters Date Type Department Care Team (Late st Contact Info) Description 09/27/2024 2:20 PM ED CASE MANAGER Office Visit [facility] Neurosciences [address] [address] [place] [address] [facility] [address] [place] [address] 09/28/2024 1:00 PM ED CASE MANAGER Office Visit [facility] [place] [address] [address], [facility] [address] [place] [address] [place] [address] [address] [facility] [address] [place] [address] documented as of this encounter Goals Goal Patient Goal Type Associated Problems Recent Progress Patient-Stated? Author Blood Pressure < 140/90 Blood Pressure 102/69(2022 11:30 AM ED CASE MANAGER) No Melinda Newsome Quit smoking / using tobacco Lifestyle No Melinda Newsome documented as of this encounter Procedures Procedure Name Priority Date/Time Associated Diagnosis Comments COMPREHENSIVE METABOLIC PANEL Routine 11/04/2017 7:50 AM ED CASE MANAGER Abnormal LFTs documented in this encounter Results * (ABNORMAL) COMPREHENSIVE METABOLIC PANEL (11/04/2017 7:50 AM ED CASE MANAGER) Glucose 119(H) 65 - 99 mg/dL [facility] ACCOUNT BILL Comment: Specimen received in contact with cells. Hemolysis present. GLUC may be decreased and K increased. Clinical correlation indicated. BUN 11 6 - 24 mg/dL [facility] ACCOUNT BILL Creatinine 0.77 0.57 - 1.00 mg/dL [facility] ACCOUNT BILL eGFR by MDRD 88 >59 mL/min/1.7 3 [facility] ACCOUNT BILL eGFR by MDRD 102 >59 mL/min/1.7 3 [facility] ACCOUNT BILL BUN/Creatinine Ratio 14 9 - 23 [facility] ACCOUNT BILL Sodium 142 134 - 144 mmol/L [facility] ACCOUNT BILL Potassium 4.4 3.5 - 5.2 mmol/L [facility] ACCOUNT BILL Comment: Specimen received in contact with cells. Hemolysis present. GLUC may be decreased and K increased. Clinical correlation indicated. Chloride 102 96 - 106 mmol/L [facility] ACCOUNT BILL CO2 20 18 - 29 mmol/L [facility] ACCOUNT BILL Calcium 9.6 8.7 - 10.2 mg/dL [facility] ACCOUNT BILL Protein Total 7.0 6.0 - 8.5 g/dL [facility] ACCOUNT BILL Albumin 4.7 3.5 - 5.5 g/dL [facility] ACCOUNT BILL Globulin Total 2.3 1.5 - 4.5 g/dL [facility] ACCOUNT BILL Albumin/Globulin Ratio 2.0 1.2 - 2.2 [facility] ACCOUNT BILL Bilirubin Total 0.3 0.0 - 1.2 mg/dL [facility] ACCOUNT BILL Alkaline Phosphatase 70 39 - 117 IU/L [facility] ACCOUNT BILL AST 38 0 - 40 IU/L [facility] ACCOUNT BILL ALT 42(H) 0 - 32 IU/L [facility] ACCOUNT BILL Comment:FASTING Blood BLOOD SPECIMEN / Unknown 11/04/2017 7:50 AM ED CASE MANAGER 11/04/2017 Narrative Resulting Agency Comment [facility] [address] ??[facility] [id number] Mark Rose MD LAB - CHEMISTRY ORD ERABLES [facility] ACCOUNT BILL [address] [place] [address] documented in this encounter Visit Diagnoses Diagnosis Abnormal LFTs- Primary Other abnormal blood chemistry documented in this encounter Care Teams Filter Press Supervisor Relationship Specialty Start Date End Date Anuj Schwartz MD [address] [place] [address] PCP - General Family Medicine 12/08/16 10/25/18 Stevenson Almanza MD Neurology 08/16/14 [place] [address] [address] Pulmonary Disease 02/14/16 documented as of this encounter
--- OUTSIDE RECORDS SUMMARY | 2024-09-18 09:33 | XMS_ITS | Encounter Summary ---
Author Organization [facility] Health Address [address] [facility] [place] [address] Care Team Providers Care Film Loader Name Role Phone Stevenson Almanza MD Unavailable Dequan Baxter MD Unavailable [phone] Anuj Schwartz MD Primary Care Provider [phone] Encounter Details Date Type Department Care Team (Latest Contact Info) Description 06/05/2017 Hospital Outpatient Visit [facility] [address] [place] [address] Neena Flores MD [address] [place] [address] Discharge Disposition: Home or Self Care Social [...] st Contact Info) Description 09/27/2024 2:20 PM BRUSH MAKER MACHINE Office Visit [facility] [address] [facility] [address] [place] [phone] [place] [address] [facility] [address] [place] [address] 09/28/2024 1:00 PM BRUSH MAKER MACHINE Office [place] [facility] [place] [address] De[address] Barrett, [facility] 500 [place] [address] [place] [address] [address] [facility] [address] [place] [address] documented as of this encounter Goals Goal Patient Goal Type Associated Problems Recent Progress Patient-Stated? Author Blood Pressure < 140/90 Blood Pressure 102/69(2022 11:30 AM BRUSH MAKER MACHINE) No Melinda Newsome Quit smoking / using tobacco Lifestyle No Melinda Newsome documented as of this encounter Visit Diagnoses Not on filedocumented in this encounter Care Teams Film Loader Relationship Specialty Start Date End Date Anuj Schwartz MD [address] [place] [id number] PCP - General Family Medicine 12/08/16 10/25/18 Stevenson Almanza MD Neurology 08/16/14 Dequan Baxter [place] [address] [place] [address] Pulmonary Disease 02/14/16 documented as of this encounter
--- OUTSIDE RECORDS SUMMARY | 2024-09-18 09:33 | XMS_ITS | Encounter Summary ---
Author Organization [facility] Address [address] [facility] [place] [address] Care Team Providers Care Front Desk Agent Name Role Phone Sveta Rai MD Primary Care Provider Stevenson Almanza MD Unavailable [phone] Dequan Baxter MD Unavailable [phone] Reason for Visit * Reason Onset Date Comments Forms 06/19/2016 Encounter Details Date Type Department Care Team (Late st Contact Info) Description 06/19/2016 Telephone [facility] Medical [facility] - Family Medicine [address] [place] [address] Sveta Rai MD [address] [facility] [address] [id number] Forms Social History Tobacco Use Types Packs/Day Years [...] * Telephone Encounter - Edith Cohn - 06/23/2016 9:36 AM CDT Forms faxed to [facility] as requested. * Telephone Encounter - Colby Luciarra - 06/19/2016 2:17 PM CDT Pt called and states that she provided a short term disability form at her 06/09/2016 OV and requesting if form can be faxed to [facility] Thank you documented in this encounter Plan of Treatment Upcoming Encounters Date Type Department Care Team (Late st Contact Info) Description 09/27/2024 2:20 PM MEMORY CARE DIRECTOR Office Visit [facility] Neurosciences [address] [facility] [address] [place] [address] [place] [address] [facility] [address] [place] [phone] 09/28/2024 1:00 PM MEMORY CARE DIRECTOR Office Visit [facility] [place] [address] [address] Juan Alberto [address] [place] [address] [place] [address] [address] [facility] [address] [place] [address] documented as of this encounter Goals Goal Patient Goal Type Associated Problems Recent Progress Patient-Stated? Author Blood Pressure < 140/90 Blood Pressure 102/69(2022 11:30 AM MEMORY CARE DIRECTOR) No Newsome, Melinda Quit smoking / using tobacco Lifestyle No Melinda Newsome documented as of this encounter Visit Diagnoses Not on filedocumented in this encounter Care Teams Front Desk Agent Relationship Specialty Start Date End Date Sveta Rai MD PCP - General Internal Medicine 02/22/13 12/07/16 Stevenson Almanza MD Neurology 08/16/14 [place] [address] [address] Pulmonary Disease 02/14/16 documented as of this encounter
--- OUTSIDE RECORDS SUMMARY | 2024-09-18 09:33 | XMS_ITS | Encounter Summary ---
Author Organization [facility] Address [address] [facility] [place] [address] Care Team Providers Care Mixer Helper Name Role Phone Sveta Rai MD Primary Care Provider Stevenson Almanza MD Unavailable [phone] Dequan Baxter MD Unavailable [phone] Reason for Visit * Reason Onset Date Comments Record Request 07/24/2016 Encounter Details Date Type Department Care Team (Late st Contact Info) Description 07/24/2016 Telephone [facility] Medical [facility] - Family Medicine [address] [place] [address] Sveta Rai MD [address] [place] [address] [id number] Record Request Social History Tobacco Use Types [...] encounter Miscellaneous Notes * Telephone Encounter - Arleen Cabrera - 07/24/2016 12:16 PM CST Record request received 07/24/16 from [employer]. This request has been forwarded to [employer] copying service to be completed. LITY SCOOTER REPAIRER documented in this encounter Plan of Treatment Upcoming Encounters Date Type Department Care Team (Late st Contact Info) Description 09/27/2024 2:20 PM MOBILITY SCOOTER REPAIRER Office Visit [facility] Neurosciences [address] [facility] 100 [place] [address] [place] [address] [facility] [address] [place] [address] 09/28/2024 1:00 PM MOBILITY SCOOTER REPAIRER Office Visit [facility] Medical Group - [address] [address] [address] [place] [address] [address] [address] documented as of this encounter Goals Goal Patient Goal Type Associated Problems Recent Progress Patient-Stated? Author Blood Pressure < 140/90 Blood Pressure 102/69(2022 11:30 AM MOBILITY SCOOTER REPAIRER) No Melinda Newsome Quit smoking / using tobacco Lifestyle No Melinda Newsome documented as of this encounter Visit Diagnoses Not on filedocumented in this encounter Care Teams Mixer Helper Relationship Specialty Start Date End Date Sveta Rai MD PCP - General Internal Medicine 02/22/13 12/07/16 Stevenson Almanza MD Neurology 08/16/14 [place] [address] [place] [address] Pulmonary Disease 02/14/16 documented as of this encounter
--- OUTSIDE RECORDS SUMMARY | 2024-09-18 09:33 | XMS_ITS | Encounter Summary ---
Author Organization [facility] Health Address [address] [facility] [place] [address] Care Team Providers Care Administration Clerk Name Role Phone Sveta Rai MD Primary Care Provider Stevenson Almanza MD Unavailable [phone] Dequan Baxter MD Unavailable [phone] Reason for Referral * Radiology Services (Routine) - Closed Specialty Diagnoses / Procedures Referred By Ernesto barrios Referred To Contact Diagnoses RUQ pain Procedures [place] [address] [address] [place] [address] Referral ID Status Reason Start Date Expiration Date Visits Re quested Visits Authorized [id number] Closed 06/17/2016 12/14/2016 1 1 Reason for Visit * Other (Routine) - Closed Specialty Diagnoses / Procedures Referred By Ernesto barrios Referred To Contact MRI Diagnoses RUQ pain Procedures [place] [address] [address] [place] [address] [facility] [address] [facility] 104 [place] [address] Referral ID Status Reason Start Date Expiration Date Visits Re quested Visits Authorized [id number] Closed 06/17/2016 08/01/2016 1 1 Encounter Details Date Type Department Care Team (Latest Contact Info) Description 06/19/2016 10:49 AM CDT - 06/19/2016 11:59 PM CDT Hospital Encounter [facility] Health Imaging Services - MRI [address] [facility] [address] [place] [address] [place] [address] [facility] [address] [place] [address] Discharge Disposition: Home or Self [...] 1,000 mcg by mouth. 12/08/2016 blood glucose (ONETOUCH TEST STRIPS) test strip Use 1 Strip [...] PO) Take by mouth once daily 12/31/2017 [place]-3 Fatty Acids (FISH OIL) 1000 MG capsule [...] st Contact Info) Description 09/27/2024 2:20 PM DIESEL ENGINE INSPECTOR Office Visit [facility] Health Neurosciences [address] [facility] [address] [place] [address] [place] [address] [facility] [address] [place] [address] 09/28/2024 1:00 PM DIESEL ENGINE INSPECTOR Office Visit [facility] [place] [address] [address] Barrett, [facility] 500 [place] [address] [place] [address] [address] [facility] [address] [place] [address] documented as of this encounter Goals Goal Patient Goal Type Associated Problems Recent Progress Patient-Stated? Author Blood Pressure < 140/90 Blood Pressure 102/69(2022 11:30 AM DIESEL ENGINE INSPECTOR) No Melinda Newsome Quit smoking / using tobacco Lifestyle No Melinda Newsome documented as of this encounter Procedures Procedure Name Priority Date/Time Associated Diagnosis Comments MRI ABDOMEN WO CONTRAST Routine 06/19/2016 11:43 AM CDT RUQ pain documented in this encounter Results * MRI ABDOMEN NON CONTRAST (06/19/2016 11:43 [...] focal findings. Mark Rose MD MR ORDERABLES documented in this encounter Visit Diagnoses Diagnosis RUQ pain Abdominal pain, right upper quadrant documented in this encounter Care Teams Administration Clerk Relationship Specialty Start Date End Date Sveta Rai MD PCP - General Internal Medicine 02/22/13 12/07/16 Stevenson Almanza MD Neurology 08/16/14 [place] [address] [address] Pulmonary Disease 02/14/16 documented as of this encounter
--- OUTSIDE RECORDS SUMMARY | 2024-09-18 09:33 | XMS_ITS | Encounter Summary ---
Author Organization [facility] Address [address] [facility] [place] [address] Care Team Providers Care Photo Booth Operator Name Role Phone Stevenson Almanza MD Unavailable [phone] Dequan Baxter MD Unavailable [phone] Anuj Schwartz MD Primary Care Provider [phone] Reason for Visit * Reason Comments Refill Request Encounter Details Date Type Department Care Team (Late st Contact Info) Description 12/08/2016 Refill [facility] Medical [facility] - Family Medicine [address] [place] [address] Sveta Rai MD [address] [place] [address] DR NOON[address] [place] [address] Refill Request Social History Tobacco Use Types [...] * Telephone Encounter - Unique Truong - 12/08/2016 11:11 AM CDT Lucretia Rodriguez Requested Prescriptions Pending Prescriptions Disp Refills ??? metoprolol tartrate (LOPRESSOR) 50 MG tablet [Pharmacy Med Name: METOPROLOL TARTRATE 50 MG TAB]180 Tab 1 Sig: TAKE ONE TABLET BY MOUTH TWICE A DAY Allergies Allergen Reactions ??? Latex ??? Sulfa Drugs ??? Adhesive Sensitivity Rash Last refill- 06/10/16 Last OV-06/09/16 Future OV-none documented in this encounter Plan of Treatment Upcoming Encounters Date Type Department Care Team (Late st Contact Info) Description 09/27/2024 2:20 PM STRATEGIC COMMUNICATIONS MANAGER Office Visit [facility] Neurosciences [address] [facility] [address] [place] [address] [place] [address] [facility] [address] [place] [address] 09/28/2024 1:00 PM STRATEGIC COMMUNICATIONS MANAGER Office Visit [facility] [place] [address] Mic[address] Barrett, [facility] [address] [place] [address] [place] [address] [address] [facility] [address] [place] [address] documented as of this encounter Goals Goal Patient Goal Type Associated Problems Recent Progress Patient-Stated? Author Blood Pressure < 140/90 Blood Pressure 102/69(2022 11:30 AM STRATEGIC COMMUNICATIONS MANAGER) Melinda Barclay Quit smoking / using tobacco Lifestyle No Melinda Newsome documented as of this encounter Visit Diagnoses Not on filedocumented in this encounter Care Teams Photo Booth Operator Relationship Specialty Start Date End Date Anuj Schwartz MD [address] [place] [address] PCP - General Family Medicine 12/08/16 10/25/18 Stevenson Almanza MD Neurology 08/16/14 Dequan Baxter [place] [address] [place] [address] Pulmonary Disease 02/14/16 documented as of this encounter
--- OUTSIDE RECORDS SUMMARY | 2024-09-18 09:33 | XMS_ITS | Encounter Summary ---
Author Organization [facility] Health Address [address] [facility] [place] [address] Care Team Providers Care Motion Picture Operator Name Role Phone Stevenson Almanza MD Unavailable [phone] Dequan Baxter MD Unavailable [phone] Anuj Schwartz MD Primary Care Provider Reason for Visit * Reason Comments Multiple Sclerosis Follow-up Encounter Details Date Type Department Care Team (Late st Contact Info) Description 12/08/2016 2:20 PM CDT Office Visit [facility] Health Neurosciences [address] [facility] [address] [place] [address] [place] [address] [facility] [address] [place] [address] MS (multiple sclerosis) ([facility]) (Primary Dx) Social History Tobacco Use Types [...] Sign Reading Time Taken Comments Blood Pressure 142/88 12/08/2016 2:21 PM CDT Pulse 100 12/08/2016 2:21 PM CDT Temperature - - Respiratory Rate 14 12/08/2016 2:21 PM CDT Oxygen Saturation 95% 12/08/2016 2:21 PM CDT Inhaled Oxygen Concentration - - Weight 116.6 kg (257 lb) 12/08/2016 2:21 PM CDT Height 162.6 cm (5' 4 ) 12/08/2016 2:21 PM CDT Body Mass Index 44.11 12/08/2016 2:21 PM CDT documented in this encounter Functional [...] Progress Notes * Stevenson Almanza MD - 12/08/2016 2:31 PM CDT CC: MS IH: Stable. No attacks. On No DMTs. Previously on injectables but affected her liver. Leg heavinessresolved last year with prednisone. Does not really want to go on DMT. Vision and bladder OK. No bear hug. No Lhermitte's Outpatient Prescriptions Marked as Taking for the 12/08/16 encounter (Office Visit) with Stevenson Almanza MD Medication Sig Dispense Refill ??? metoprolol tartrate (LOPRESSOR) 50 MG tablet [...] MOUTH ONCE DAILY 90 Tab 1 ??? levothyroxine (SYNTHROID) 88 MCG tablet Take 1 Tab by mouth daily before breakfast 30 Tab 3 ??? Blood Glucose Monitoring Suppl (ONE TOUCH BASIC SYSTEM) W/DEVICE KIT Use once daily 1 Kit 0 ??? [place]-3 Fatty Acids (FISH OIL) 1000 MG capsule Take 1 Cap by mouth once daily ??? Nutritional Supplements (ESTROVEN PO) Take by mouth once daily ??? loratadine (CLARITIN) 10 MG tablet Take 10 mg by mouth once daily. ??? aspirin 325 MG tablet Take 325 mg by mouth once daily. ??? Cholecalciferol (VITAMIN D) 1000 UNIT capsule Take 5,000 Units by mouth once daily ROS: Sugars are good. IBS is OK on meds. MRI reviewed and typical looking lesions without Gd + Exam: BP 142/88 Pulse 100 Resp 14 Ht 1.626 m (5' 4 ) Wt 116.6 kg (257 lb) SpO2 95% BMI 44.11 kg/m2 Discs OK FFOV. EOMs OK No drift FTN OK Gait OK Reflexes 2/2 GERALDO Motor OK Sensory OK ASSESSMENT: MS PLAN: Observe She does not want DMT at current Re image 1 year documented in this encounter Plan of Treatment Upcoming Encounters Date Type Department Care Team (Late st Contact Info) Description 09/27/2024 2:20 PM CAREER TECHNICAL EDUCATION TEACHER Office Visit [facility] Neurosciences [address] [facility] [address] [place] [phone] [place] [address] [facility] [address] [place] [address] 09/28/2024 1:00 PM CAREER TECHNICAL EDUCATION TEACHER Office Visit [facility] - [address] [address] [place] [address] [address] [address] documented as of this encounter Goals Goal Patient Goal Type Associated Problems Recent Progress Patient-Stated? Author Blood Pressure < 140/90 Blood Pressure 102/69(2022 11:30 AM CAREER TECHNICAL EDUCATION TEACHER) No Melinda Newsome Quit smoking / using tobacco Lifestyle No Melinda Newsome documented as of this encounter Visit Diagnoses Diagnosis MS (multiple sclerosis) (HCC)- Primary Multiple sclerosis documented in this encounter Care Teams Motion Picture Operator Relationship Specialty Start Date End Date Anuj Schwartz MD [address] [place] [phone] PCP - General Family Medicine 12/08/16 10/25/18 Stevenson Almanza MD Neurology 08/16/14 [place] [address] [address] Pulmonary Disease 02/14/16 documented as of this encounter
--- OUTSIDE RECORDS SUMMARY | 2024-09-18 09:33 | XMS_ITS | Encounter Summary ---
Author Organization [facility] Address [address] [place] [address] Care Team Providers Care Traveling Engineer Name Role Phone Sveta Rai MD Primary Care Provider Stevenson Almanza MD Unavailable [phone] Dequan Baxter MD Unavailable [phone] Reason for Visit * Reason Comments Refill Request Encounter Details Date Type Department Care Team (Late Contact Info) Description 06/30/2016 Refill [facility] Medical [facility] - Family Medicine [address] [place] [address] Sveta Rai MD [address] [place] [address] DR NOON[address] [place] [address] Refill Request Social History Tobacco Use Types [...] * Telephone Encounter - Edith Cohn - 06/30/2016 1:54 PM CDT Last Refill: 06/01/16 Last OV: 06/09/16 Upcoming OV: 08/26/16 documented in this encounter Plan of Treatment Upcoming Encounters Date Type Department Care Team (Late st Contact Info) Description 09/27/2024 2:20 PM DIRECTOR OF SLEEP Office Visit [facility] Neurosciences [address] [facility] [address] [place] [address] [place] [address] [facility] [address] [place] [address] 09/28/2024 1:00 PM DIRECTOR OF SLEEP Office Visit [facility] [place] [address] DePa[address] Barrett, [address] [address] [place] [address] [facility] [address] [place] [address] documented as of this encounter Goals Goal Patient Goal Type Associated Problems Recent Progress Patient-Stated? Author Blood Pressure < 140/90 Blood Pressure 102/69(2022 11:30 AM DIRECTOR OF SLEEP) No Melinda Newsome Quit smoking / using tobacco Lifestyle No Melinda Newsome documented as of this encounter Visit Diagnoses Not on filedocumented in this encounter Care Teams Traveling Engineer Relationship Specialty Start Date End Date Sveta Rai MD PCP - General Internal Medicine 6/18/13 4/2/17 Stevenson Almanza MD Neurology 08/16/14 [place] [address] [place] [id number] Pulmonary Disease 02/14/16 documented as of this encounter
--- OUTSIDE RECORDS SUMMARY | 2024-09-18 09:33 | XMS_ITS | Encounter Summary ---
Author Organization [facility] Address [address] [place] [address] Care Team Providers Care Molecular Geneticist Name Role Phone Sveta Rai MD Primary Care Provider Stevenson Almanza MD Unavailable [phone] Dequan Baxter MD Unavailable [phone] Reason for Referral * Radiology Services (Routine) - Closed Specialty Diagnoses / Procedures Referred By Ernesto barrios Referred To Contact Diagnoses Right leg swelling Procedures VAS RIGHT VENOUS DUPLEX Chitra Boykin APRN-CNP [id number] [place] [address] Referral ID Status Reason Start Date Expiration Date Visits Re quested Visits Authorized [id number] Closed 10/08/2016 04/06/2017 1 1 ERY CLERK SELLING Reason for Visit * Reason Comments ER UC Follow-up patient went to [facility] ER on 10/05/16 for swollen right lower leg with pain in the back of calf - first noticed 10/03/16 - leg is not better - on 10/05/16 patient noticed left elbow was swollen and painful Encounter Details Date Type Department Care Team (Late st Contact Info) Description 10/08/2016 2:00 PM GROCERY CLERK SELLING Office Visit [facility] - [facility] [id number] [facility] [address] [place] [address] Chitra Carranza APRN-CNP [id number] [facility] [address] [place] [id number] Right leg swelling (Primary Dx); Medial epicondylitis, left Social History Tobacco Use Types Packs/Day Years [...] Sign Reading Time Taken Comments Blood Pressure 138/80 10/08/2016 2:15 PM GROCERY CLERK SELLING Pulse 80 10/08/2016 2:15 PM GROCERY CLERK SELLING Temperature 36.9 ??C (98.5 ??F) 10/08/2016 2:15 PM CS T Respiratory Rate 20 10/08/2016 2:15 PM GROCERY CLERK SELLING Oxygen Saturation - - Inhaled Oxygen Concentration - - Weight 117.5 kg (259 lb) 10/08/2016 2:15 PM GROCERY CLERK SELLING Height 162.6 cm (5' 4 ) 10/08/2016 2:15 PM GROCERY CLERK SELLING Body Mass Index 44.46 10/08/2016 2:15 PM GROCERY CLERK SELLING documented in this encounter Functional Status Functional [...] this encounter Patient Instructions * Patient Instructions* Chitra Carranza APRN-CNP - 10/08/2016 2:44 PM GROCERY CLERK SELLING Images from the original note were not included. We are checking an ultrasound of the right leg. If a deep vein clot, to the ER. If superficial thrombophlebitis, warm moist compresses and continue meloxicam if you have it, it not either aleve or advil. If Rocha's cyst. This will take time to resolve. To ortho if not improving in a couple of weeks. Elevate when at rest. Elbow-- take mobic if you still have it or aleve or advil. Tennis Elbow WHAT YOU NEED TO KNOW: What is tennis elbow? Tennis elbow is inflammation of the tendons in your elbow. Tendons are strongtissues that connect muscle to bone. What causes tennis elbow? Tennis elbow is caused by overuse of the muscles in your forearm. These muscles are used to straighten your arm or lift your hand and wrist. Fast, repeated arm movements canlead to inflammation and small tears in your tendon. Tennis, painting, and manual labor are common activities that can cause tennis elbow. What are the signs and symptoms of tennis elbow? ?? Pain when you straighten your arm or rotate your wrist and forearm outward ?? Weakness in your wrist or hand ?? Trouble holding, lifting, or grabbing an object, such as a coffee cup ?? Tenderness on the outside of your elbow ?? Red, swollen, warm skin on the outside of your elbow How is tennis elbow diagnosed? Your healthcare provider will feel around your elbow to check for painful areas. He will check the movement of your elbow, wrist, and fingers. You also may need the following: ?? X-ray: This is a picture of the bones and tissues in your elbow. It is used to check for a fracture or arthritis. Dye may be injected into your joint before the x-ray. This will help your joint show up better on the monitor. ?? Ultrasound: This test uses sound waves to show pictures on a monitor. It is used to show if you have tears in your tendon or fluid around your elbow joint. ?? MRI: This scan uses powerful magnets and a computer to take pictures of your elbow. An MRI may show tears in your tendons and ligaments. Ligaments are strong tissues that connect bones together. You may be given dye to help the pictures show up better. Tell the healthcare provider if you have ever had an allergic reaction to contrast dye. Do not enter the MRI room with anything metal. Metal can cause serious injury. Tell the healthcare provider if you have any metal in or on your body. How is tennis elbow treated? ?? Support devices: You may need an arm strap, brace, or splint to limit your arm movement. These devices help decrease pain and prevent more damage to your tendon. ?? Medicines: ?? Acetaminophen: This medicine decreases pain and fever. You can buy acetaminophen without a doctor's order. Ask how much to take and how often to take it. Follow directions. Acetaminophen can causeliver damage if not taken correctly. ?? NSAIDs: These medicines decrease swelling, pain, and fever. You can buy NSAIDs without a doctor's order. Ask your healthcare provider which medicine is right for you, and how much to take. Take asdirected. NSAIDs can cause stomach bleeding or kidney problems if not taken correctly. ?? Steroid injection: This shot will help decrease pain and swelling. ?? Botox injection: This shot will help decrease pain and help your muscles and tendons rest and heal. ?? Physical therapy: A physical therapist teaches you exercises to help improve movement and strength, and to decrease pain. ?? Surgery: You may need surgery if your symptoms do not improve with other treatments. During surgery, your healthcare provider will remove any damaged tissue. He may also cut your tendon and reattach it. How can I manage my symptoms? ?? Rest: You may need to rest your injured arm and avoid activities that cause pain. This will helpyour tendon and muscles heal. ?? Ice: Ice helps decrease swelling and pain. Ice may also help prevent tissue damage. Use an ice pack or put crushed ice in a plastic bag. Cover it with a towel and place it on your elbow for 15 to 20 minutes every hour as directed. ?? Elevate: Raise your elbow above the level of your heart as often as you can. This will help decrease swelling and pain. Prop your elbow on pillows or blankets to keep it elevated comfortably. What are the risks of tennis elbow? ?? You may have an allergic response to the medicines used to treat tennis elbow. Steroid shots maycause pain, changes in your skin color, and fat loss in the area of the shot. Steroid shots may also weaken your tendon and increase the risk for tendon rupture. Botox shots may cause finger numbnessand weakness. Surgery may cause you to have pain, swelling, and bruising. Surgery may also cause nerve damage and lead to numbness in your elbow or forearm. New bone may form in abnormal areas aroundyour elbow as the area is healing. Even after treatment, you may still have pain and weakness in your elbow, wrist, or hand. ?? Without treatment, you may have long-term pain. You may not be able to grab, squeeze, or lift items with your injured hand and arm. It may be hard to do your daily activities. When should I contact my healthcare provider? ?? You have a fever. ?? You have more pain or weakness in your arm, wrist, hand, or fingers. ?? You have new numbness or tingling in your arm, hand, or fingers. ?? You have questions or concerns about your condition or care. When should I seek immediate care or call 911? ?? You suddenly have no feeling in your arm, hand, or fingers. ?? You suddenly cannot move your arm, wrist, hand, or fingers. ?? Your elbow or arm are red, warm, and swollen. CARE AGREEMENT: You have the right to help plan your care. Learn about your health condition and how it may be treated. Discuss treatment options with your caregivers to decide what care you want to receive. You always have the right to refuse treatment. The above information is an ward aide only. It is not intended as medical advice for individual conditions or treatments. Talk to your doctor, nurse or pharmacist before following any medical regimen to see if it is safe and effective for you. ?? 2016 [employer]. Information is for End User's use only and may not be sold, redistributed or otherwise used for commercial purposes. All illustrations and images included in CareNotes?? are the copyrighted property of [employer] or [employer]. Tennis Elbow Exercises WHAT YOU NEED TO KNOW: What are tennis elbow exercises? Tennis elbow exercises help decrease pain and swelling in your elbow, forearm, wrist, and hand. They also help strengthen your arm muscles. Start these exercises slowly. Stop if you feel pain. ?? Finger extensions: Hold the fingertips of your injured arm close together with your fingers and thumb straight. Put a rubber band around the outside of your fingers and thumb. Spread your fingers apart and then slowly bring them together without letting the rubber band fall off. Repeat 40 times. ?? Wrist flexor stretch: Hold your arm straight out in front of you with your palm facing down. Useyour other hand to grasp your fingers. Keep your elbow straight and slowly bend your hand back. Your fingertips should point up and your palm should face away from you. Do this until you feel a stretch in the top of your wrist. Hold for 10 seconds. Repeat 5 times. ?? Wrist extensor stretch: This stretch is the opposite of the wrist flexor stretch. Hold your arm straight out in front of you with your palm facing down. Use your other hand to grasp your fingers. Keep your elbow straight and slowly bend your hand down. Your fingertips should point down and your palm should face you. Do this until you feel a stretch in the bottom of your upper wrist. Hold for 10 seconds. Repeat 5 times. ?? Bicep curls: Place your uninjured hand under your injured elbow for support. Turn your palm so that it faces up and hold a light weight in your hand. Bend your elbow and straighten 30 times. When should I contact my healthcare provider? ?? You have more pain or weakness in your arm, wrist, hand, or fingers. ?? You have new numbness or tingling in your arm, hand, or fingers. ?? You have questions or concerns about tennis elbow exercises. CARE AGREEMENT: You have the right to help plan your care. Learn about your health condition and how it may be treated. Discuss treatment options with your caregivers to decide what care you want to receive. You always have the right to refuse treatment. The above information is an ward aide only. It is not intended as medical advice for individual conditions or treatments. Talk to your doctor, nurse or pharmacist before following any medical regimen to see if it is safe and effective for you. ?? 2016 [employer]. Information is for End User's use only and may not be sold, redistributed or otherwise used for commercial purposes. All illustrations and images included in CareNotes?? are the copyrighted property of [employer] or [employer]. ERY CLERK SELLING documented in this encounter Progress Notes * Chitra Carranza APRN-CNP - 10/08/2016 2:52 PM CST SUBJECTIVE: Pool Rodriguez is a 51 y.o. female here for: Chief Complaint Patient presents with ??? ER UC Follow-up patient went to [facility] ER on 10/05/16 for swollen right lower leg with pain in the back of calf - first noticed 10/03/16 - leg is not better - on 10/05/16 patient noticed left elbow was swollen and painful Past Medical History Diagnosis Date ??? Anemia ??? Depressive disorder, not elsewhere classified ??? Generalized anxiety disorder ??? H/O heart artery stent 2010 [id number] LAD( ) [facility] ??? H/O laparoscopic adjustable gastric banding 2009 ??? Heart attack 2010 ??? HTN (hypertension) ??? Hyperlipemia ??? Hypothyroid ??? Migraine ??? Multiple sclerosis 2005 Dr. Almanza ??? S/P tonsillectomy ??? Stomach ulcer ??? Tension headache HPI: Pt was in the ER on 10-05-2016 and had a low d dimer test so she was sent home but still has right leg swelling with some pain in the right calf and feels lumpy in the calf. Her left elbow started to hurt and swell medially after being in the ER. Review of systems negative except as noted in the HPI Family and social history on file and reviewed. Current Outpatient Prescriptions on File Prior to Visit Medication Sig Dispense Refill ??? ondansetron, disintegrating, [...] TWICE A DAY 180 Tab 1 ??? metFORMIN (GLUCOPHAGE) 500 MG [...] ONCE A DAY 3 Bottle 3 ??? [place]-3 Fatty Acids (FISH OIL) 1000 MG capsule Take 1 Cap by mouth once daily ??? Nutritional Supplements (ESTROVEN PO) Take by mouth once daily ??? loratadine (CLARITIN) 10 MG tablet Take 10 mg by mouth once daily. ??? B Complex Vitamins (B-COMPLEX/B-12 PO) Take 1,000 mcg by mouth. ??? Cholecalciferol (VITAMIN D) 1000 UNIT capsule Take 5,000 Units by mouth once daily ??? traMADol (ULTRAM) 50 MG tablet Reported on 10/08/2016 ??? aspirin 325 MG tablet Take 325 mg by mouth once daily. No current facility-administered medications on file prior to visit. Allergies Allergen Reactions ??? Latex ??? Sulfa Drugs ??? Adhesive Sensitivity Rash History Substance Use Topics ??? Smoking status: Current Every Day Smoker Packs/day: 0.50 Years: 30.00 Types: Cigarettes ??? Smokeless tobacco: Never Used ??? Alcohol use: 0.0 oz/week 0 Standard drinks or equivalent per week Comment: Rarely . OBJECTIVE: Vitals: 10/08/16 1415 BP: 138/80 Pulse: 80 Resp: 20 Temp: 98.5 ??F Weight: 117.5 kg (259 lb) Body mass index is 44.46 kg/(m^2). General appearance - alert, well appearing, and in no distress Psych - alert and oriented to person, place, and time, normal affect ENT -Eyes: conjunctiva clear, no drainage. Ears: tm right pearly kelley, positive light reflex, landmarks present; tm left pearly kelley, positive light reflex, landmarks present. Nose: pink turbinates, clear drainage. Frontal and maxillary sinuses not tender to palpation. Throat: pink, moist mucous membranes, tonsils not enlarged, Neck - trachea midline, no thyromegaly, supple, full range of motion Lymph - no significant lymphadenopathy in the head, neck nor supraclavicular region. Lungs - unlabored, clear to auscultation, no wheezes, rales or rhonchi, symmetric air entry Negative egophony, good anterior forced expiration without coarseness nor wheezing, negative fremitus. Heart - normal rate, regular rhythm, normal S1, S2, no murmurs, rubs, clicks or gallops, right leg edema, non pitting, 1+, peripheral pulses normal, no carotid bruits. Abdomen - bowel sounds present, soft, nontender, nondistended, no masses or hepatosplenomegaly Extremities - Steady gait, full range of motion, no clubbing nor cyanosis. Positive guera's sign inthe right calf, The calf is tender to palpation on the right and there is some ropey feeling to the calf. Left elbow: tender medial epicondyle and it hurts when examiner shakes hand with pt and twists the forearm medially and laterally in the medial epicondyle area. Skin - warm, dry, no rashes in visible areas. ASSESSMENT Encounter Diagnoses Name Primary? Right leg swelling Yes ??? Medial epicondylitis, left Discussed patient with Dr. Flores and her plan of care is as follows: PLAN: Orders Placed This Encounter ??? VAS RIGHT VENOUS DUPLEX LE [address] Standing Status: Future Number of Occurrences: 1 Standing Expiration Date: 10/09/2017 We are checking an ultrasound of the right leg. If a deep vein clot, to the ER. If superficial thrombophlebitis, warm moist compresses and continue meloxicam if you have it, it not either aleve or advil. If Rocha's cyst. This will take time to resolve. To ortho if not improving in a couple of weeks. Elevate when at rest. Elbow-- take mobic if you still have it or aleve or advil. Provided information generated by [facility]. Further recommendations pending the above results and patient's clinical course. Follow-up visit 2 weeks prn. The patient indicates understanding of these issues and agrees with the plan. ERY CLERK SELLING documented in this encounter Plan of Treatment Upcoming Encounters Date Type Department Care Team (Late st Contact Info) Description 09/27/2024 2:20 PM GROCERY CLERK SELLING Office Visit [facility] [address] [facility] [address] [place] [address] [place] [address] [facility] [address] [place] [address] 09/28/2024 1:00 PM GROCERY CLERK SELLING Office Visit [facility] - [address] [place] [address] [place] [address] [address] [address] [place] [address] documented as of this encounter Goals Goal Patient Goal Type Associated Problems Recent Progress Patient-Stated? Author Blood Pressure < 140/90 Blood Pressure 102/69(2022 11:30 AM GROCERY CLERK SELLING) No Melinda Newsome Quit smoking / using tobacco Lifestyle No Melinda Newsome documented as of this encounter Results * VAS RIGHT VENOUS DUPLEX LE (10/08/2016 3:21 PM GROCERY CLERK SELLING) Anatomical Region Laterality Modality Ultrasound 10/08/2016 3:01 PM GROCERY CLERK SELLING Narrative Procedure Note Dennis Mijares MD - 10/08/2016 [facility] [place] [facility] [address] [facility] [place] [address] Lower Extremity Venous Ultrasound Report Pat.Name: POOL RODRIGUEZ.ID: [id number] .Date: 10/08/2016 Exam Time: 3:01:00 PM Study Type:LE Venous Age: 1 1965,51Y Sex: FEMALE Sonogrphr: Yousif Guerrero RVT Pat. Stat.:Outpatient ICD - 9: I82.491 Acute embolism and thrombosis of other specified deep vein of right lower extremity CPT - 4: 09291 Procedures:Lower Extremity Venous - Right Race: 1 Visit ID: [id number] SUMMARY: There is no evidence of an [...] 04:10 PM Dennis Mijares MD Chitra Carranza SENIOR INFRASTRUCTURE ARCHITECT-ELECTRONIC SCALE ASSEMBLER AND TESTER VASCULAR LAB OR DERABLES documented in this encounter Visit Diagnoses Diagnosis Right leg swelling- Primary Medial epicondylitis, left Right leg swelling documented in this encounter Care Teams Molecular Geneticist Relationship Specialty Start Date End Date Sveta Rai MD PCP - General Internal Medicine 02/22/13 12/07/16 Stevenson Almanza MD Neurology 08/16/14 [place] [address] [place] [address] Pulmonary Disease 02/14/16 documented as of this encounter
--- OUTSIDE RECORDS SUMMARY | 2024-09-18 09:34 | XMS_ITS | Encounter Summary ---
Author Organization [facility] Address [address] [place] [address] Care Team Providers Care Manager Market Intelligence Name Role Phone Sveta Rai MD Primary Care Provider Stevenson Almanza MD Unavailable [phone] Dequan Baxter MD Unavailable [phone] Reason for Visit * Reason Comments Hypertension Hyperlipidemia Thyroid Problem Encounter Details Date Type Department Care Team (Late st Contact Info) Description 05/27/2016 1:30 PM CDT Office Visit [facility] - Family Medicine [address] [place] [address] Sveta Rai MD [address] [place] [address] [address] Type 2 diabetes mellitus without complication, without long-term current use of insulin (HCC) (Primary Dx); Essential hypertension; Hypothyroidism, adult; Mixed hyperlipidemia; LISSETTE on CPAP; Major depressive disorder, recurrent episode, moderate (HCC); Morbid obesity due to excess calories (HCC) Social History Tobacco Use Types Packs/Day [...] Sign Reading Time Taken Comments Blood Pressure 106/78 05/27/2016 1:20 PM CDT Pulse 62 05/27/2016 1:20 PM CDT Temperature - - Respiratory Rate 14 05/27/2016 1:20 PM CDT Oxygen Saturation - - Inhaled Oxygen Concentration - - Weight 117 kg (258 lb) 05/27/2016 1:20 PM CDT Height 162.6 cm (5' 4 ) 05/27/2016 1:20 PM CDT Body Mass Index 44.29 05/27/2016 1:20 PM CDT documented in this encounter Functional [...] Instructions * Patient Instructions* Edith Cohn - 05/27/2016 1:21 PM CDT Caring for Your High Blood Pressure Healthy Lifestyle tips Manage stress: Stress may slow healing and cause illness later. Since it is hard to avoid stress, learn to control it. Learn new ways to relax. Ask your provider for more information on ways to relax. Talk to someone about things that upset you. Stop smoking: If you smoke, you should quit. Smoking harms the heart, lungs, and blood. You are more likely to have a heart attack, lung disease, and cancer if you smoke. Smoking can also make your hypertension worse. It is never too late to quit. Quitting smoking improves your health, and the health of those around you. If you have trouble quitting, talk to your provider about ways to quit. Drinking alcohol: If you drink alcohol, limit how much you drink. Do not drink more than two drinksa day. One drink is a can of beer (12 ounces) or four ounces (one-half cup) of wine. It is also thesame as one jigger (one and one-half ounces) of hard liquor, such as whiskey. Maintain a healthy weight. Weighing to much can make your heart work harder and cause high blood pressure. Other health problems are caused about weighing too much. Talk to your provider about an ideal weight for you. Where can I go for more information? Citizen Of [place] Heart Association National Center: http://www.americanheart.org In the top header, click ???Conditions?? . In the top header, click ???high blood pressure.?? For a printable blood pressure tracker, scroll toward the bottom of the page to Related Tools, and click ???HBP Trackers.?? 3-152-LZN-USA-1 or ( ) National Heart, Lung and Blood Mission: http://www.nhlbi.nih.gov/health/infoctr/index.htm Where can I go for support and more information? There are many ways to quit smoking. Some may work better for you than others. Your caregiver can help you find the best plan to quit. Smokefree.gov Phone: 6-916-CECF-NOW ( ) www.smokefree.gov Citizen Of [place] Lung Association Phone: Phone: www.lung.org Instant Rewards [...] documented in this encounter Progress Notes * Edith Cohn - 05/30/2016 4:20 PM CDTQuick Note: Patient informed of lab results. * Edith Cohn - 05/30/2016 4:00 PM CDTQuick Note: Phone was not in service, will try again later. * Sveta Rai MD - 05/29/2016 12:58 PM CDTQuick Note: Still diabetic, your TG (cholesterol) is high. Things are not going in the right direction. I wouldsuggest weight watchers, or similar programs to lose weight. Please call her to discuss that. * Sveta Rai MD - 05/27/2016 1:49 PM CDT SUBJECTIVE: Lucretia Rodriguez is a 50 y.o. female with Chief Complaint Patient presents with ??? Hypertension ??? Hyperlipidemia ??? Thyroid Problem HPI: Patient is here for follow-up visit. - Hypertension: well controlled on lisinopril 40 mg and metoprolol 50 b.i.d.. She denies any chest pain, headache, nose bleeds. - Hyperlipidemia: tolerating Lipitor 40 mg well, denies any muscle aches. Due for labs. - Diabetic, 6 months ago, started on metformin 500 mg daily, tolerating well. She is due for a footexam. - hypothyroidism currently on 88 mcg of levothyroxine. - obstructive sleep apnea she is using her CPAP at night. - Patient complains about nausea and decreased appetite for the last 3 days, GI virus going around among her family members, she denies any diarrhea, abdominal pain or fever. Patient still has some Zofran from previous time I advised her to use it as needed. I will not consider flu vaccine today since she is sick. But she will get it done she gets better. Past Medical History Diagnosis Date ??? Heart attack 2010 ??? HTN (hypertension) ??? Hyperlipemia ??? Multiple sclerosis 2005 Dr. Almanza ??? H/O heart artery stent 2010 [id number] LAD( ) [facility] ??? H/O laparoscopic adjustable gastric banding 2009 ??? S/P tonsillectomy ??? Migraine ??? Hypothyroid ??? Depressive disorder, not elsewhere classified ??? Generalized anxiety disorder ??? Tension headache ??? Stomach ulcer ??? Anemia History Social History ??? Marital Status: Spouse Name: N/A Number of Children: 2 ??? Years of Education: N/A Occupational History ??? [employer] Social History Main Topics ??? Smoking status: [...] negative for - chills, fatigue or fever Respiratory ROS: no cough, shortness of breath, or wheezing Cardiovascular ROS: no chest pain or dyspnea on exertion Gastrointestinal ROS: no abdominal pain, change in bowel habits, or black or bloody stools Genito-Urinary ROS: no dysuria, trouble voiding, or hematuria Musculoskeletal ROS: negative for - joint pain Neurological ROS: no TIA or stroke symptoms Dermatological ROS: negative for - rash OBJECTIVE: BP 106/78 mmHg Pulse 62 Resp 14 Wt 117.028 kg (258 lb) BMI 44.26 kg/m2 General: alert, cooperative, no distress Eyes: PERRLA, EOMI, Sclera and conjunctiva clear Ears: bilateral TM's and external ear canals normal Neck: range of motion is intact, no masses, thyroid not enlarged, no adenopathy, supple Heart: normal rate, regular rhythm, normal S1, S2, no murmurs, rubs, clicks or gallops Lungs: clear to auscultation bilaterally. Abdomen: soft, non-tender, non-distended, normal bowel sounds. Extremities: no clubbing, cyanosis or edema Neuro: AOx3. Gait normal. Reflexes and motor strength normal and symmetric. Cranial nerves 2-12 andsensation grossly intact. ASSESSMENT: Type 2 diabetes mellitus without complication, without long-term current use of insulin - Plan: LIPID PROFILE, HEMOGLOBIN A1C Essential hypertension - Plan: COMPREHENSIVE METABOLIC PANEL, CBC W AUTO DIFFERENTIAL Hypothyroidism, adult - Plan: TSH Mixed hyperlipidemia LISSETTE on CPAP Major depressive disorder, recurrent episode, moderate Morbid obesity due to excess calories PLAN: Orders Placed This Encounter ??? COMPREHENSIVE METABOLIC PANEL ??? CBC W AUTO DIFFERENTIAL ??? TSH ??? LIPID PROFILE ??? HEMOGLOBIN A1C Follow up in 3 months. Further recommendation pending blood test results. Screenings Future Falls: Depression: PHQ-2:TOTAL POINT SCORE: 1 PHQ-9: documented in this encounter Plan of Treatment Upcoming Encounters Date Type Department Care Team (Late st Contact Info) Description 09/27/2024 2:20 PM WASTE/MATERIALS EXCHANGE SPECIALIST Office Visit [facility] Neurosciences [address] [address] [place] [address] [facility] [address] [place] [address] 09/28/2024 1:00 PM WASTE/MATERIALS EXCHANGE SPECIALIST Office Visit [facility] - [address] [address] , [address] [address] [place] [address] [address] documented as of this encounter Goals Goal Patient Goal Type Associated Problems Recent Progress Patient-Stated? Author Blood Pressure < 140/90 Blood Pressure 102/69(2022 11:30 AM WASTE/MATERIALS EXCHANGE SPECIALIST) No Melinda Newsome Quit smoking / using tobacco Lifestyle No Melinda Newsome documented as of this encounter Procedures Procedure Name Priority Date/Time Associated Diagnosis Comments HEMOGLOBIN A1C Routine 05/27/2016 2:17 PM CDT Type 2 diabetes mellitus without complication, without long-term current use of insulin (HCC) CBC W AUTO DIFFERENTIAL Routine 05/27/2016 2:17 PM CDT Essential hypertension COMPREHENSIVE METABOLIC PANEL Routine 05/27/2016 2:17 PM CDT Essential hypertension TSH Routine 05/27/2016 2:17 PM CDT Hypothyroidism, adult LIPID PROFILE Routine 05/27/2016 2:17 PM CDT Type 2 diabetes mellitus without complication, without long-term current use of insulin (HCC) documented in this encounter Results * (ABNORMAL) HEMOGLOBIN A1C (05/27/2016 2:17 PM CDT) Hemoglobin A1c 6.7(H) 4.2 - 6.3 % [facility] ACCOUNT BILL Comment:AVERAGE GLUCOSE MG/D L BLOOD 146 mg/dL Whole blood specimen (specimen) BLOOD SPECIMEN WITH EDTA / Unknown 05/27/2016 2:17 PM CDT 05/27/2016 7:05 PM CDT Narrative Resulting Agency Comment [facility] [address] [address] ??Alejandra LINARES [phone] Sveta Gross MD LAB - CHEMISTRY ORD ERABLES [facility] ACCOUNT BILL [address] [place] [address] * (ABNORMAL) LIPID PROFILE (05/27/2016 2:17 PM CDT) Cholesterol 183 <200 mg/dL [facility] ACCOUNT BILL Triglycerides 314(H) <150 mg/dL [facility] ACCOUNT BILL HDL Cholesterol 43 >40 mg/dL [facility] ACCOUNT BILL VLDL Calculated 63(H) <=30 mg/dL [facility] ACCOUNT BILL LDL Calculated 77 <130 mg/dL [facility] ACCOUNT BILL Blood specimen (specimen) BLOOD SPECIMEN / Unknown 05/27/2016 2:17 PM CDT 05/27/2016 7:05 PM CDT Narrative Resulting Agency Comment [facility] [address] [address] ??Alejandra LINARES [phone] Sveta Gross MD LAB - CHEMISTRY ORD ERABLES [facility] ACCOUNT BILL [address] [place] [address] * TSH (05/27/2016 2:17 PM CDT) Pathologist [facility] TSH 1.37 0.358 - 3.740 uIU/mL [facility] ACCOUNT BILL Blood specimen (specimen) BLOOD SPECIMEN / Unknown 05/27/2016 2:17 PM CDT 05/27/2016 7:05 PM CDT Narrative Resulting Agency Comment [facility] [address] [facility] ??Alejandra [place] [phone] Sveta Gross MD LAB - CHEMISTRY ORD ERABLES Performing Organization Address City/[facility] Co de Phone Number [facility] ACCOUNT BILL [address] [place] [address] * (ABNORMAL) CBC W AUTO DIFFERENTIAL (05/27/2016 2:17 PM CDT) [facility] WBC 8.1 4.4 - 10.7 x10E9/L [facility] ACCOUNT BILL RBC 5.00 3.80 - 5.20 x10E12/L [facility] ACCOUNT BILL Hemoglobin 13.6 12.0 - 15.6 gm/dL [facility] ACCOUNT BILL Hematocrit 43.0 35.9 - 45.5 % [facility] ACCOUNT BILL MCV 86.0 80.7 - 98.3 fL [facility] ACCOUNT BILL MCH 27.2 26.7 - 34.0 pg [facility] ACCOUNT BILL MCHC 31.6 30.8 - 35.9 gm/dL [facility] ACCOUNT BILL RDW 16.8(H) 12.1 - 14.9 % [facility] ACCOUNT BILL Platelet Count 229 153 - 416 x10E9/L [facility] ACCOUNT BILL Comment:MPV FL BLOOD (SSM) 1 1.5 fl 9.4-12.9 Granulocytes % 57.5 44.0 - 73.0 % [facility] ACCOUNT BILL Lymphocytes % 32.9 20.0 - 43.0 % [facility] ACCOUNT BILL Monocytes % 6.6 5.0 - 13.0 % [facility] ACCOUNT BILL Eosinophils % 1.9 0.0 - 6.0 % [facility] ACCOUNT BILL Basophils % 0.9 0.0 - 2.0 % [facility] ACCOUNT BILL Granulocytes Absolute 4.63 2.01 - 7.14 x10E9/L [facility] ACCOUNT BILL Lymphocytes Absolute 2.65 1.07 - 3.94 x10E9/L [facility] ACCOUNT BILL Monocytes Absolute 0.53 0.26 - 1.07 x10E9/L [facility] ACCOUNT BILL Eosinophils Absolute 0.15 0 - 0.47 x10E9/L [facility] ACCOUNT BILL Basophils Absolute 0.07 0 - 0.08 x10E9/L [facility] ACCOUNT BILL Immature Granulocytes 0.2 0 - 1 % [facility] ACCOUNT BILL Immature Granulocytes Absolute 0.02 0.00 - 0.06 x10E9/L [facility] ACCOUNT BILL nRBC 0 /100 WBC [facility] ACCOUNT BILL Blood specimen (specimen) BLOOD SPECIMEN / Unknown 05/27/2016 2:17 PM CDT 05/27/2016 7:05 PM CDT Narrative Resulting Agency Comment [facility] [address] [facility] ??[facility] [phone] Sveta Gross MD LAB - HEMATOLOGY OR DERABLES [facility] ACCOUNT BILL [address] [place] [address] * COMPREHENSIVE METABOLIC PANEL (05/27/2016 2:17 PM CDT) Glucose 91 74 - 106 mg/dL [facility] ACCOUNT BILL BUN 19 7 - 21 mg/dL [facility] ACCOUNT BILL Creatinine 0.87 0.50 - 1.30 mg/dL [facility] ACCOUNT BILL eGFR by MDRD >60 >60 mL/min/1.7 3m2 [facility] ACCOUNT BILL eGFR by MDRD >60 >60 mL/min/1.7 3m2 [facility] ACCOUNT BILL Sodium 140 136 - 145 mmol/L [facility] ACCOUNT BILL Potassium 4.6 3.5 - 5.1 mmol/L [facility] ACCOUNT BILL Chloride 106 98 - 107 mmol/L [facility] ACCOUNT BILL CO2 27 22 - 31 mmol/L [facility] ACCOUNT BILL Calcium 9.1 8.5 - 10.1 mg/dL [facility] ACCOUNT BILL Protein Total 7.4 6.4 - 8.2 gm/dL [facility] ACCOUNT BILL Albumin 4.1 3.4 - 5.0 gm/dL [facility] ACCOUNT BILL Bilirubin Total 0.5 0.2 - 1.0 mg/dL [facility] ACCOUNT BILL Alkaline Phosphatase 71 38 - 126 U/L [facility] ACCOUNT BILL AST 20 5 - 40 U/L [facility] ACCOUNT BILL ALT 33 13 - 61 U/L [facility] ACCOUNT BILL Comment:See reference range update Blood specimen (specimen) BLOOD SPECIMEN / Unknown 05/27/2016 2:17 PM CDT 05/27/2016 7:05 PM CDT Narrative Resulting Agency Comment [facility] [address] [facility] ??[facility] [phone] Sveta Gross MD LAB - CHEMISTRY ORD ERABLES [facility] ACCOUNT BILL [address] [place] [address] documented in this encounter Visit Diagnoses Diagnosis Type 2 diabetes mellitus without complication, without long-term current use of insulin (HCC)- Primary Essential hypertension Hypothyroidism, adult Other specified acquired hypothyroidism Mixed hyperlipidemia LISSETTE on CPAP Obstructive sleep apnea (adult) (pediatric) Major depressive disorder, recurrent episode, moderate (HCC) Major depressive disorder, recurrent episode, moderate Morbid obesity due to excess calories (HCC) documented in this encounter Care Teams Manager Market Intelligence Relationship Specialty Start Date End Date Sveta Rai MD PCP - General Internal Medicine 02/22/13 12/07/16 Stevenson Almanza MD Neurology 08/16/14 [place] [address] [facility] [address] [place] [id number] Pulmonary Disease 02/14/16 documented as of this encounter
--- OUTSIDE RECORDS SUMMARY | 2024-09-18 09:34 | XMS_ITS | Encounter Summary ---
Author Organization [facility] Address [address] [place] [address] Care Team Providers Care Book Cleaner Name Role Phone Sveta Rai MD Primary Care Provider [phone] Stevenson Almanza MD Unavailable [phone] Dequan Baxter MD Unavailable [phone] Reason for Visit * Reason Comments Follow-up LISSETTE/ Encounter Details Date Type Department Care Team (Late st Contact Info) Description 05/27/2016 12:00 PM CDT Office Visit [facility] - Pulmonology [id number] [place] [address] [place] [id number] [place] [address] LISSETTE (obstructive sleep apnea) (Primary Dx); Essential hypertension with goal blood pressure less than 130/85; Morbid obesity, unspecified obesity type (HCC) Social History Tobacco Use Types Packs/Day [...] Sign Reading Time Taken Comments Blood Pressure 120/78 05/27/2016 11:58 AM CDT Pulse 76 05/27/2016 11:58 AM CDT Temperature 36.7 ??C (98 ??F) 05/27/2016 11:58 AM CDT Respiratory Rate 18 05/27/2016 11:58 AM CDT Oxygen Saturation 95% 05/27/2016 11:58 AM CDT room air Inhaled Oxygen Concentration - - Weight 117.5 kg (259 lb) 05/27/2016 11:58 AM CDT Height 162.6 cm (5' 4 ) 05/27/2016 11:58 AM CDT Body Mass Index 44.46 05/27/2016 11:58 AM CDT documented in this encounter Functional [...] * Patient Instructions* Dequan Baxter MD - 05/27/2016 12:19 PM CDT Y You need to use the machine every [...] effort to loose weight. Call clinic and [employer] company if there is any problem or questions regarding the CPAP. documented in this encounter Progress Notes * Dequan Baxter MD - 05/27/2016 12:10 PM CDT SLEEP MEDICINE FOLLOW UP- [facility] Name:Lucretia Rodriguez :1965 Sex:female PCP:Sveta Terry MD Chief Complaint: LISSETTE follow up History of Presenting Illness: Ms. Rodriguez is a 50 year female with history of LISSETTE. She had a home sleep study done 01/31/2016 which displayed mild sleep apnea with an apnea hypopnea index of 11.4-14.5 episodes per hour. She was diagnosed with sleep apnea in 2005 at [facility] and used the CPAP for 5-6 [...] mouth. She was started on auto CPAP [id number] and last visit changed to 10-20 cm by [facility] [employer] due to concern for high AHI on download.Patient clinically feels good with better sleep with no day time fatigue or sleepiness no snoring or gasping ESS 7. She does not reports falling still dozing while watching TV/reading. Admits to being depressed Sleep schedule as follows Bedtime from 9-10 pm to 5;45 am to 6;15 am with onset in minutes. Feels ok on waking up and does not takes naps. CPAP Adherence: 30 days reviewed >4 hour adherence 100%, average usage 8 hours 5 minutes, 95th percentile pressure 18.1, with a MAX pressure of 19.3, average AHI 4.3 episodes per hour. Other 10point ROS negative Past Medical History Diagnosis Date ??? Heart attack 2010 ??? HTN (hypertension) ??? Hyperlipemia ??? Multiple sclerosis 2005 Dr. Almanza ??? H/O heart artery stent 2010 [id number] LAD( ) [facility] ??? H/O laparoscopic adjustable gastric banding 2009 ??? S/P tonsillectomy ??? Migraine ??? Hypothyroid ??? Depressive disorder, not elsewhere classified ??? Generalized anxiety disorder ??? Tension headache ??? Stomach ulcer ??? Anemia oOSA Past Surgical History Procedure Laterality Date ??? [...] Outpatient Prescriptions Medication Sig Dispense Refill ??? metFORMIN (GLUCOPHAGE) 500 MG tablet TAKE ONE TABLET BY MOUTH ONCE DAILY 90 Tab 1 ??? zolpidem (AMBIEN) 5 MG tablet Take 1 Tab by mouth nightly as needed for Insomnia 30 Tab 1 ??? lisinopril (PRINIVIL; ZESTRIL) 40 MG tablet TAKE ONE TABLET BY MOUTH ONCE DAILY 30 Tab 3 ??? atorvastatin (LIPITOR) 40 MG tablet Take 1 Tab by mouth at bedtime 90 Tab 1 ??? levothyroxine (SYNTHROID) 88 MCG tablet Take 1 Tab by mouth daily before breakfast 30 Tab 3 ??? metoprolol tartrate (LOPRESSOR) 50 MG tablet TAKE ONE TABLET BY MOUTH TWICE A DAY 180 Tab 1 ??? meloxicam (MOBIC) 15 MG tablet TAKE ONE TABLET BY MOUTH ONCE DAILY 90 Tab 1 ??? Blood Glucose Monitoring Suppl (ONE TOUCH BASIC SYSTEM) W/DEVICE KIT Use once daily 1 Kit 0 ??? ONE TOUCH LANCETS MISC Use once daily 200 Each 1 ??? fluticasone propionate (FLONASE) 50 MCG/ACT nasal spray USE 2 SPRAYS INTO EACH NOSTRIL ONCE A DAY 3 Bottle 3 ??? [place]-3 Fatty Acids (FISH OIL) 1000 MG capsule Take 1 Cap by mouth once daily ??? Nutritional Supplements (ESTROVEN PO) Take by mouth once daily ??? citalopram (CELEXA) 40 MG tablet Take 1 Tab by mouth once daily 90 Tab 3 ??? loratadine (CLARITIN) 10 MG tablet Take 10 mg by mouth once daily. ??? aspirin 325 MG tablet Take 325 mg by mouth once daily. ??? B Complex Vitamins (B-COMPLEX/B-12 PO) Take 1,000 mcg by mouth. ??? Cholecalciferol (VITAMIN D) 1000 UNIT capsule Take 5,000 Units by mouth once daily No current facility-administered medications for this visit. Allergies Allergen Reactions ??? Latex ??? Sulfa Drugs History Social History ??? Marital Status: Spouse Name: N/A Number of Children: 2 ??? Years of Education: N/A Occupational History ??? [employer] Social History Main Topics ??? Smoking status: [...] vomiting. Objective: GENERAL: Lucretia Rodriguez is a 50 y.o. female in no distress. Body mass index is 44.44 kg/(m^2). Vitals: 05/27/16 1158 BP: 120/78 Pulse: 76 Temp: 98 ??F Resp: 18 Weight: 117.482 kg (259 lb) SpO2: 95% Wt Readings from Last 3 Encounters: 05/27/16 117.482 kg (259 lb) 03/28/16 119.296 kg (263 lb) 02/26/16 117.482 kg (259 lb) HEENT: The nares are [...] 10 CPAP Autoset Excellent adherence and clinical rsponse continue to use nightly discussed the association of sleep apnea with high blood pressure, excessive day time sleepiness and increase risk of automobile accidents. Other cardio and cerebrovascular risk associations Regular sleep wake cycle with adequate hours of sleep has been stressed as well. Morbid Obesity Weight loss emphasized. The association between obesity and obstructive sleep apnea was explained . severity of obstructive sleep apnea will improve with weight loss. Hypertension Association with lissette discussed Follow up in 12 months for reassessment It was a pleasure taking part in Ms. Rodriguez's care. Dequan Baxter MD Pulmonary Disease documented in this encounter Plan of Treatment Upcoming Encounters Date Type Department Care Team (Niharika pozo Contact Info) Description 09/27/2024 2:20 PM WEIGHT ENGINEER Office Visit [facility] Health Neurosciences [address] [place] [address] [place] [address] [place] [address] 09/28/2024 1:00 PM WEIGHT ENGINEER Office Visit [facility] [place] [address] [address] , [address] [place] [address] [place] [address] [address] [place] [address] documented as of this encounter Goals Goal Patient Goal Type Associated Problems Recent Progress Patient-Stated? Author Blood Pressure < 140/90 Blood Pressure 102/69(2022 11:30 AM WEIGHT ENGINEER) No Melinda Newsome Quit smoking / using tobacco Lifestyle No Melinda Newsome documented as of this encounter Visit Diagnoses Diagnosis LISSETTE (obstructive sleep apnea)- Primary Obstructive sleep apnea (adult) (pediatric) Essential hypertension with goal blood pressure less than 130/85 Morbid obesity, unspecified obesity type (HCC) documented in this encounter Care Teams Book Cleaner Relationship Specialty Start Date End Date Sveta Rai MD PCP - General Internal Medicine 02/22/13 12/07/16 Stevenson Almanza MD Neurology 08/16/14 [place] [address] [place] [address] Pulmonary Disease 02/14/16 documented as of this encounter
--- OUTSIDE RECORDS SUMMARY | 2024-09-18 09:34 | XMS_ITS | Encounter Summary ---
Author Organization [facility] Address [address] [facility] [place] [address] Care Team Providers Care Engineering Psychologist Name Role Phone Sveta Rai MD Primary Care Provider Stevenson Almanza MD Unavailable [phone] Dequan Baxter MD Unavailable [phone] Reason for Visit * Reason Onset Date Comments Request Lab Order 02/19/2016 Encounter Details Date Type Department Care Team (Late st Contact Info) Description 02/19/2016 Telephone [facility] Medical [facility] - Family Medicine [address] [place] [address] Sveta Rai MD [address] [place] [address] [id number] Request Lab Order Social History Tobacco Use Types Packs/Day Years Used Date Smoking Tobacco: Every Day Cigarettes 0.3 30 Started: 08/18/2013 Smokeless Tobacco: Never Alcohol Use Standard Drinks/Week [...] * Telephone Encounter - Edith Cohn - 02/19/2016 4:08 PM CDT Per there is no guarantee that labs will be ordered at this visit, due to previous labs being ordered in November. Patient should come in to be seen first. * Telephone Encounter - Sejal Tinoco - 02/19/2016 9:07 AM CDT Patient would like to know if can put her lab orders in for her appointment on 02/25. Please call and advise patient today if possible. documented in this encounter Plan of Treatment Upcoming Encounters Date Type Department Care Team (Late st Contact Info) Description 09/27/2024 2:20 PM GUN NUMBERER Office Visit [facility] Health Neurosciences [address] [address] [place] [address] [facility] [address] [place] [address] 09/28/2024 1:00 PM GUN NUMBERER Office Visit [facility] [place] [address] [address] [place] [address] [place] [address] [facility] [address] [place] [address] documented as of this encounter Goals Goal Patient Goal Type Associated Problems Recent Progress Patient-Stated? Author Blood Pressure < 140/90 Blood Pressure 102/69(2022 11:30 AM GUN NUMBERER) No Melinda Newsome Quit smoking / using tobacco Lifestyle No Melinda Newsome documented as of this encounter Visit Diagnoses Not on filedocumented in this encounter Care Teams Engineering Psychologist Relationship Specialty Start Date End Date Sveta Rai MD PCP - General Internal Medicine 02/22/13 12/07/16 Stevenson Almanza MD Neurology 08/16/14 [place] [address] [address] Pulmonary Disease 02/14/16 documented as of this encounter
--- OUTSIDE RECORDS SUMMARY | 2024-09-18 09:34 | XMS_ITS | Encounter Summary ---
Author Organization [facility] Address [address] [facility] [place] [address] Care Team Providers Care Compliance Representative Name Role Phone Sveta Rai MD Primary Care Provider [phone] Stevenson Almanza MD Unavailable [phone] Dequan Baxter MD Unavailable [phone] Reason for Visit * Reason Comments Refill Request Encounter Details Date Type Department Care Team (Late Contact Info) Description 05/16/2016 Refill [facility] Medical [facility] - Family Medicine [address] [place] [address] Sveta Rai MD [address] [place] [address] DR NOONAN [address] [place] [id number] Refill Request Social History Tobacco Use Types [...] * Telephone Encounter - Renetta Reveles - 05/16/2016 8:35 AM CDT Lucretia Rodriguez Allergies Allergen Reactions ??? Latex ??? Sulfa Drugs Requested Prescriptions Pending Prescriptions Disp Refills ??? metFORMIN (GLUCOPHAGE) 500 MG tablet [Pharmacy Med Name: METFORMIN HCL 500 MG TABLET] 90 Tab 1 Sig: TAKE ONE TABLET BY MOUTH ONCE DAILY Last Refill: 04/16/2016 Last OV: 02/26/16 Next OV:05/27/16 documented in this encounter Plan of Treatment Upcoming Encounters Date Type Department Care Team (Late st Contact Info) Description 09/27/2024 2:20 PM TALLOW REFINER Office Visit [facility] Neurosciences [address] [address] [place] [address] [facility] [address] [place] [phone] 09/28/2024 1:00 PM TALLOW REFINER Office Visit [facility] [place] [address] Michele Barrett, [facility] [address] [place] [address] [place] [address] [facility] [address] [place] [address] documented as of this encounter Goals Goal Patient Goal Type Associated Problems Recent Progress Patient-Stated? Author Blood Pressure < 140/90 Blood Pressure 102/69(2022 11:30 AM TALLOW REFINER) No Melinda Newsome Quit smoking / using tobacco Lifestyle No Newsome, Melinda documented as of this encounter Visit Diagnoses Not on filedocumented in this encounter Care Teams Compliance Representative Relationship Specialty Start Date End Date Sveta Rai MD PCP - General Internal Medicine 02/22/13 12/07/16 Stevenson Almanza MD Neurology 08/16/14 [place] [address] [place] [id number] Pulmonary Disease 02/14/16 documented as of this encounter
--- OUTSIDE RECORDS SUMMARY | 2024-09-18 09:34 | XMS_ITS | Encounter Summary ---
Author Organization [facility] Health Address [address] [facility] [place] [address] Care Team Providers Care Ruching Machine Operator Name Role Phone Sveta Ria MD Primary Care Provider [phone] Stevenson Almanza MD Unavailable [phone] Reason for Referral * Sleep (Routine) - Closed Specialty Diagnoses / Procedures Referred By Ernesto barrios Referred To Contact Sleep Center Diagnoses Snoring Procedures HOME SLEEP STUDY Sveta Rai MD [address] [facility] [address] [place] [address] [facility] Home Sleep Study [address] [place] [address] Referral ID Status Reason Start Date Expiration Date Visits Re quested Visits Authorized [id number] Closed 12/21/2015 06/18/2016 1 1 Reason for Visit * Sleep (Routine) - Closed Specialty Diagnoses / Procedures Referred By Ernesto barrios Referred To Contact Sleep Center Diagnoses Snoring Procedures HOME SLEEP STUDY Sveta Rai MD [address] [facility] [address] [place] [address] [facility] Home Sleep Study [address] [place] [address] Referral ID Status Reason Start Date Expiration Date Visits Re quested Visits Authorized [id number] Closed 12/21/2015 06/18/2016 1 1 Encounter Details Date Type Department Care Team (Latest Contact Info) Description 01/31/2016 10:42 AM CDT - 01/31/2016 11:59 PM CDT Hospital Encounter [facility] Health Sleep Services - Home Sleep Study [address] [place] [address] Sveta Rai MD [address] [facility] [address] NOONAN [address] [place] [address] Discharge Disposition: Home or Self Care Social [...] 5 (five) capsules by mouth once daily amantadine (SYMMETREL) 100 MG capsule Take 100 mg by mouth 2 times daily 02/26/2016 amoxicillin-clavulanate (AUGMENTIN) 875-125 MG tabletIndications:Acute bronchitis, unspecified organism Take 1 Tab by mouth every 12 hours 20 Tab 0 01/15/2016 02/14/2016 aspirin 325 MG tablet Take 81 mg by mouth once daily 04/17/2020 atorvastatin (LIPITOR) 20 MG tabletIndications:Mixed hyperlipidemia Take 2 Tabs by mouth at bedtime 90 Tab 1 08/06/2015 02/07/2016 B Complex Vitamins (B-COMPLEX/B-12 PO) Take 1,000 mcg by mouth. 12/08/2016 benzonatate (TESSALON) 200 MG capsuleIndications:Cough Take 1 Cap by mouth 3 times daily as needed for Cough 21 Cap 0 01/15/2016 02/14/2016 blood glucose (UNITY MobileTOUCH TEST STRIPS) test strip Use 1 Strip once for 1 dose 200 Strip 1 12/06/2015 12/15/2016 Blood Glucose Monitoring Suppl ([employer] SYSTEM) W/DEVICE KIT Use once daily 1 Kit 0 12/06/2015 01/21/2021 citalopram (CELEXA) 40 MG tabletIndications:Major depressive disorder, recurrent episode, moderate (HCC) Take 1 Tab by mouth once daily 90 Tab 3 07/31/2015 08/10/2016 fluticasone propionate (FLONASE) 50 MCG/ACT nasal spray USE 2 SPRAYS INTO EACH NOSTRIL ONCE A DAY 3 Bottle 3 11/19/2015 11/08/2016 gabapentin (NEURONTIN) 300 MG capsule Take 300 mg by mouth 2 times daily 02/26/2016 levothyroxine (SYNTHROID) 88 MCG tablet TAKE ONE TABLET BY MOUTH ONCE DAILY BEFORE BREAKFAST 30 Tab 3 10/19/2015 02/07/2016 lisinopril (PRINIVIL; ZESTRIL) 40 MG tabletIndications:Essent ial hypertension Take 1 Tab by mouth once daily 30 Tab 3 11/16/2015 03/05/2016 loratadine (CLARITIN) 10 MG tablet Take 10 mg by mouth once daily. 01/19/2020 meloxicam (MOBIC) 15 MG tablet TAKE ONE TABLET BY MOUTH ONCE DAILY 90 Tab 1 12/14/2015 06/08/2016 metFORMIN (GLUCOPHAGE) 500 MG tablet Take 1 Tab by mouth once daily 90 Tab 1 11/23/2015 05/16/2016 metoprolol tartrate (LOPRESSOR) 50 MG tablet TAKE ONE TABLET BY MOUTH TWICE A DAY 180 Tab 1 12/14/2015 06/08/2016 nitroglycerin (NITROSTAT) 0.4 MG tablet Dissolve 1 Tab under the tongue every 5 minutes as needed for Angina. 100 Tab 3 05/11/2014 02/26/2016 Nutritional Supplements (ESTROVEN PO) Take by mouth once daily 12/31/2017 [place]-3 Fatty Acids (FISH OIL) 1000 MG capsule Take 1 Cap by mouth once daily 12/31/2017 ONE TOUCH LANCETS MISC Use once daily 200 Each 1 12/06/2015 08/31/2016 predniSONE (DELTASONE) 20 MG tablet Take 1 tab po for 2 days, then take 1/2 tab po for 1 day then stop 3 Tab 0 11/16/2015 02/14/2016 zolpidem (AMBIEN) 5 MG tabletIndications:Other insomnia Take 1 Tab by mouth nightly as needed for Insomnia 30 Tab 0 01/18/2016 02/18/2016 documented as of this encounter Progress Notes * Sveta Rai MD - 02/11/2016 7:36 AM CDTQuick Note: Obstructive sleep apnea. He needs to follow up with Pulmonary for CPAP. documented in this encounter Procedure Notes * Dequan Baxter MD - 02/07/2016 6:48 AM CDTAssociated Order(s): HOME SLEEP STUDY [facility] Home Sleep Study Name: Lucretia Rodriguez Date of : 1965 Date of Test: 01/31/2016 Date of interpretation: 02/07/2016 Requesting Physician:Sveta Terry MD Indication for the study: Symptoms suggestive of obstructive sleep apnea. ESS 13 Method: This is an unattended study performed with an AccuSom type 3 device that records oral/nasalairflow, respiratory effort , oxygen saturation , heart rate and snoring. No data is collected on sleep stages and all events are scored according to the current AASM criteria. I personally reviewed the raw data, tabulated data and Intraprocedure documentation. Interpretation: Total No of Nights study was done :1 Total recorded time : 7 hours and 59 minutes Average apnea hypopnea index : 11.4 to 14.5 per hour with Oxygen saturation less than 90% for approximately : 9 minutes (2 % of recorded time) Lowest oxygen saturation : 78 % Snoring : 98 % of the recorded time Average Heart Rate:64 Impression : Obstructive sleep apnea , mild. Apnea hypopnea index 11.4 to 14.5 per hour. Recommendation : Positive airway pressure therapy is the treatment of choice for sleep disordered breathing. Given the daytime sleepiness, the patient will benefit from CPAP therapy which can be arranged through an in lab CPAP titration OR an auto titrating CPAP trial at home depending upon patient's co morbidities and insurance coverage. Other treatment options for patient's with sleep apnea include weight loss,dental appliance, positional therapy and upper airway surgery. Caution is advised in driving, operating heavy equipment and with use of alchol and sedative if there are symptom of excessive daytime sleepiness.. I will arrange for follow up. Dequan Baxter M.D. Diplomat Citizen [place] Board of Sleep Medicine (ABSM) Diplomat Pulmonary , Critical Care and Sleep Medicine (ABIM) documented in this encounter Plan of Treatment Upcoming Encounters Date Type Department Care Team (Late st Contact Info) Description 09/27/2024 2:20 PM GENERAL OPERATIONS AGENT Office Visit [facility] [address] [address] [place] [address] [phone] 09/28/2024 1:00 PM GENERAL OPERATIONS AGENT Office Visit [facility] Medical Group - [address] Michele [address] [phone] [place] [address] [address] [facility] [address] [place] [phone] documented as of this encounter Goals Goal Patient Goal Type Associated Problems Recent Progress Patient-Stated? Author Blood Pressure < 140/90 Blood Pressure 102/69(2022 11:30 AM GENERAL OPERATIONS AGENT) Melinda Barclay Quit smoking / using tobacco Lifestyle No Melinda Newsome documented as of this encounter Procedures Procedure Name Priority Date/Time Associated Diagnosis Comments HOME SLEEP STUDY Routine 02/07/2016 6:50 AM CDT Snoring documented in this encounter Results * HOME SLEEP STUDY (02/07/2016 6:50 AM CDT) Dequan Marina MD - 02/07/2016 6:50 AM CDT Dequan Baxter MD ? 02/07/2016 ??6:50 AM [facility] ? Home Sleep Study Name: ??Lucretia [...] for follow up. Dequan Baxter M.D. Diplomat Citizen [place] Board of Sleep Medicine (ABSM) Diplomat Pulmonary , Critical Care and Sleep Medicine (ABIM) Sveta Gross MD [facility] documented in this encounter Visit Diagnoses Diagnosis Snoring Other dyspnea and respiratory abnormality documented in this encounter Care Teams Ruching Machine Operator Relationship Specialty Start Date End Date Sveta Rai MD PCP - General Internal Medicine 02/22/13 12/07/16 Stevenson Almanza MD Neurology 08/16/14 documented as of this encounter
--- OUTSIDE RECORDS SUMMARY | 2024-09-18 09:34 | XMS_ITS | Encounter Summary ---
Author Organization [facility] Address [address] [place] [address] Care Team Providers Care Respite Care Provider Name Role Phone Sveta Rai MD Primary Care Provider Stevenson Almanza MD Unavailable [phone] Dequan Baxter MD Unavailable [phone] Reason for Visit * Reason Comments Hypertension Hyperlipidemia Depression Encounter Details Date Type Department Care Team (Latest Contact Info) Description 02/26/2016 1:30 PM CDT Office Visit [facility] - Family Medicine [address] [place] [address] Sveta Rai MD [address] [place] [address] [id number] Diabetes type 2, controlled (HCC) (Primary Dx); Hypothyroidism, adult; Morbid obesity due to excess calories (HCC); Major depressive disorder, recurrent episode, moderate (HCC); Essential hypertension with goal blood pressure less than 130/85; Mixed hyperlipidemia; Urine frequency; Vaccine for streptococcus pneumoniae and influenza Social History Tobacco Use Types Packs/Day Years [...] Sign Reading Time Taken Comments Blood Pressure 110/70 02/26/2016 1:47 PM CDT Pulse 80 02/26/2016 1:27 PM CDT Temperature - - Respiratory Rate 14 02/26/2016 1:27 PM CDT Oxygen Saturation - - Inhaled Oxygen Concentration - - Weight 117.5 kg (259 lb) 02/26/2016 1:27 PM CDT Height 162.6 cm (5' 4.02 ) 02/26/2016 1:27 PM CD T Body Mass Index 44.44 02/26/2016 1:27 PM CDT documented in this encounter Functional [...] Instructions * Patient Instructions* Edith Cohn - 02/26/2016 1:28 PM CDT Caring for Your High Blood [...] Where can I go for more information? [employer] Association National Center: http://www.americanheart.org 1. In the top header, click ???Conditions?? . 2. In the top header, click ???high blood pressure.?? 3. For a printable blood pressure tracker, scroll toward the bottom of the page to Related Tools, and click ???HBP Trackers.?? 8-065-CMI-USA-1 or ( ) National Heart, Lung and Blood [place]: http://www.nhlbi.nih.gov/health/infoctr/index.htm Where can I go for support and more information? There are many ways to quit smoking. Some may work better for you than others. Your caregiver can help you find the best plan to quit. Smokefree.gov Phone: 3-371-OACH-NOW ( ) www.smokefree.gov [employer] Lung Association Phone: Phone: www.lung.org Instant Rewards [...] Progress Notes * Sveta Rai MD - 02/26/2016 1:31 PM CDT SUBJECTIVE: Lucretia Rodriguez is a 50 y.o. female with Chief Complaint Patient presents with ??? Hypertension ??? Hyperlipidemia ??? Depression HPI: pt is here to follow up on chronic conditions: - newly diagnosed diabetes, she is on metformin 500 q.day tolerating well. A1c in the office today is 6.6 - Hypertension: well controlled with lisinopril 40 mg daily. Denies any chest pain, headache, nose bleeds. - Hyperlipidemia tolerating Lipitor 40 mg well, good cholesterol level last November. Denies any muscle ache. - depression and anxiety managed with Celexa 40 mg daily, she is doing better than last visit. She is controlling her eating habits better and has lost 5 lb. Has not seen the psychiatrist as I referred her last visit. - Complained about urine incontinent sometimes when she stands up or with cough or laugh. She also has urine frequency but she drinks lot of water Past Medical History Diagnosis Date ??? Heart attack 2010 ??? HTN (hypertension) ??? Hyperlipemia ??? Multiple sclerosis 2005 Dr. Almanza ??? H/O heart artery stent 2010 [id number] [facility] ??? H/O laparoscopic adjustable gastric banding 2009 ??? S/P tonsillectomy ??? Migraine ??? Hypothyroid ??? Depressive disorder, not elsewhere classified ??? Generalized anxiety disorder ??? Tension headache ??? Stomach ulcer ??? Anemia History Social History ??? Marital Status: Spouse Name: N/A Number of Children: 2 ??? Years of Education: N/A Occupational History ??? [employer] Social History Main Topics ??? Smoking status: Current Every Day Smoker -- 0.25 packs/day for 30 years Types: Cigarettes Start [...] ??? Migraine Sister Allergies Allergen Reactions ??? Sulfa Drugs ??? Latex Review of Systems: General ROS: negative for - chills, fatigue or fever Respiratory ROS: no cough, shortness of breath, or wheezing Cardiovascular ROS: no chest pain or dyspnea on exertion Gastrointestinal ROS: no abdominal pain, change in bowel habits, or black or bloody stools Genito-Urinary ROS: as above. Musculoskeletal ROS: negative for - joint pain or joint stiffness Neurological ROS: no TIA or stroke symptoms OBJECTIVE: BP 110/70 mmHg Pulse 80 Resp 14 Wt 117.482 kg (259 lb) BMI 44.44 kg/m2 General: alert, cooperative, no distress Eyes: PERRLA, EOMI, Sclera and conjunctiva clear Ears: bilateral TM's and external ear canals normal Neck: range of motion is intact, no masses, thyroid not enlarged, no adenopathy, supple Heart: normal rate, regular rhythm, normal S1, S2, no murmurs, rubs, clicks or gallops Lungs: clear to auscultation bilaterally Abdomen: soft, non-tender, non-distended, normal bowel sounds Extremities: no clubbing, cyanosis or edema Neuro: AOx3. Gait normal. Reflexes and motor strength normal and symmetric. Cranial nerves 2-12 andsensation grossly intact. Foot exam: no sores or ulcers, microfilament test demonstrates good sensation. Pulses palpable bilaterally. UA is negative. ASSESSMENT: Diabetes type 2, controlled - Plan: HEMOGLOBIN A1C - POINT OF CARE (HgbA1C) Hypothyroidism, adult Morbid obesity due to excess calories Major depressive disorder, recurrent episode, moderate Essential hypertension with goal blood pressure less than 130/85 Mixed hyperlipidemia Urine frequency - Plan: URINALYSIS - POINT OF CARE Vaccine for streptococcus pneumoniae and influenza - Plan: PNEUMOCOCCAL PCV13 VACCINE [place] IM PLAN: Orders Placed This Encounter ??? PNEUMOCOCCAL PCV13 VACCINE [place] IM ??? HEMOGLOBIN A1C - POINT OF CARE (HgbA1C) ??? URINALYSIS - POINT OF CARE Screenings Future Falls: Depression: PHQ-2:TOTAL POINT SCORE: 0 PHQ-9: F/u in 3 months documented in this encounter Plan of Treatment Upcoming Encounters Date Type Department Care Team (Late st Contact Info) Description 09/27/2024 2:20 PM GRIEVANCE AND APPEALS SPECIALIST Office Visit [facility] Health Neurosciences [address] [facility] [address] [place] [address] [place] [address] [facility] [address] [place] [address] 09/28/2024 1:00 PM GRIEVANCE AND APPEALS SPECIALIST Office [place] [facility] [place] [address] DePmoris Barrett, [facility] [address] [place] [address] [place] [address] [address] [facility] [address] [place] [address] documented as of this encounter Goals Goal Patient Goal Type Associated Problems Recent Progress Patient-Stated? Author Blood Pressure < 140/90 Blood Pressure 102/69(2022 11:30 AM GRIEVANCE AND APPEALS SPECIALIST) No Melinda Newsome Quit smoking / using tobacco Lifestyle No Melinda Newsome documented as of this encounter Procedures Procedure Name Priority Date/Time Associated Diagnosis Comments HEMOGLOBIN A1C - POINT OF CARE (AMB) Routine 02/26/2016 Diabetes type 2, controlled (HCC) URINALYSIS - POINT OF CARE Routine 02/26/2016 Urine frequency documented in this encounter Results * URINALYSIS - POINT OF CARE (02/26/2016) Clarity UA POCT clear Color UA POCT yellow Leukocyte UA negative Negative Nitrite UA POCT negative Negative Urobilinogen UA 0.2 0.1 - 1.0 Protein UA POCT negative Negative pH UA 5.5 5.0 - 8.0 pH units Blood UA negative Negative Specific [place] UA POCT 1.005 1.002 - 1.030 Ketone UA negative Negative Bilirubin UA POCT negative Negative Glucose UA negative Negative Urine specimen (specimen) URINE / Unknown 02/26/2016 Sveta Gross MD LAB - POINT OF CARE ORDERABLES * HEMOGLOBIN A1C - POINT OF CARE (HgbA1C) (02/26/2016) Hemoglobin A1c POCT 6.6 % QC Verified Yes Blood specimen (specimen) BLOOD SPECIMEN / Unknown 02/26/2016 Sveta Gross MD LAB - POINT OF CARE ORDERABLES documented in this encounter Visit Diagnoses Diagnosis Diabetes type 2, controlled (HCC)- Primary Type II or unspecified type diabetes mellitus without mention of complication, not stated as uncontrolled Hypothyroidism, adult Other specified acquired hypothyroidism Morbid obesity due to excess calories (HCC) Major depressive disorder, recurrent episode, moderate (HCC) Major depressive disorder, recurrent episode, moderate Essential hypertension with goal blood pressure less than 130/85 Mixed hyperlipidemia Urine frequency Urinary frequency Vaccine for streptococcus pneumoniae and influenza Need for prophylactic vaccination against Streptococcus pneumoniae (pneumococcus) and influenza documented in this encounter Care Teams Respite Care Provider Relationship Specialty Start Date End Date Sveta Rai MD PCP - General Internal Medicine 02/22/13 12/07/16 Stevenson Almanza MD Neurology 08/16/14 [place] [id number] [place] [id number] Pulmonary Disease 02/14/16 documented as of this encounter
--- OUTSIDE RECORDS SUMMARY | 2024-09-18 09:34 | XMS_ITS | Encounter Summary ---
Author Organization [facility] Health Address [address] [place] [address] Care Team Providers Care Research And Development Director Name Role Phone Sveta Rai MD Primary Care Provider Stevenson Almanza MD Unavailable [phone] Dequan Baxter MD Unavailable [phone] Anuj Schwartz MD Primary Care Provider [phone] Anuj Miller Primary Care Provider Unavaila Naya Haas PA-C Primary Care Provider + Encounter Details Date Type Department Care Team (Late st Contact Info) Description 05/26/2016 [facility] Outpatient Visit [facility] [address] [place] [address] [place] [address] [address] Social History Tobacco Use Types Packs/Day Years [...] st Contact Info) Description 09/27/2024 2:20 PM DUAL RATE SUPERVISOR Office Visit [facility] Neurosciences [address] [facility] [place] [address] [place] [address] [place] [address] [facility] [address] [place] [phone] 09/28/2024 1:00 PM DUAL RATE SUPERVISOR Office Visit [facility] [place] [address] [address] [place] [address] [address] [address] documented as of this encounter Goals Goal Patient Goal Type Associated Problems Recent Progress Patient-Stated? Author Blood Pressure < 140/90 Blood Pressure 102/69(2022 11:30 AM DUAL RATE SUPERVISOR) No Melinda Newsome Quit smoking / using tobacco Lifestyle No Melinda Newsome documented as of this encounter Visit Diagnoses Not on filedocumented in this encounter Care Teams Research And Development Director Relationship Specialty Start Date End Date Sveta Rai MD PCP - General Internal Medicine 02/22/13 12/07/16 Anuj Schwartz MD [address] [place] [address] PCP - General Family Medicine 12/08/16 10/25/18 Anuj Miller Update Information PCP - General 10/26/18 01/18/20 Naya Arriola PA-C [address] [place] [phone] PCP - General Physician Director Emergency Department 01/19/20 Stevenson Almanza MD Neurology 08/16/14 Dequan Baxter MD [address] [place], [place] [id number] Pulmonary Disease 02/14/16 documented as of this encounter
--- OUTSIDE RECORDS SUMMARY | 2024-09-18 09:34 | XMS_ITS | Encounter Summary ---
Author Organization [facility] Address [address] [place] [address] Care Team Providers Care Recycler Forklift Driver Truck Driver Name Role Phone Sveta Rai MD Primary Care Provider Stevenson Almanza MD Unavailable [phone] Reason for Visit * Reason Comments Hyperlipidemia Hypertension Depression Anxiety Sleep Problem Encounter Details Date Type Department Care Team (Late st Contact Info) Description 11/23/2015 1:30 PM CDT Office Visit [facility] Medical [facility] - Family Medicine [address] [place] [id number] Sveta Rai MD [address] [place] [address] DR NOONAN [address] [place] [id number] Essential hypertension (Primary Dx); Prediabetes; Mixed hyperlipidemia; Major depressive disorder, recurrent episode, moderate (HCC); Hypothyroidism, adult; Hot flashes, menopausal; MS (multiple sclerosis) (HCC); Snoring; Morbid obesity due to excess calories (HCC) [...] Sign Reading Time Taken Comments Blood Pressure 130/98 11/23/2015 1:30 PM CDT Pulse 66 11/23/2015 1:30 PM CDT Temperature - - Respiratory Rate 14 11/23/2015 1:30 PM CDT Oxygen Saturation - - Inhaled Oxygen Concentration - - Weight 119.7 kg (264 lb) 11/23/2015 1:30 PM CDT Height 162.6 cm (5' 4 ) 11/23/2015 1:30 PM CDT Body Mass Index 45.32 11/23/2015 1:30 PM CDT documented in this encounter Functional [...] Instructions * Patient Instructions* Edith Cohn - 11/23/2015 1:32 PM CDT Caring for Your High Blood [...] Where can I go for more information? [employer] National Center: http://www.americanheart.org 1. In the top header, click ???Conditions?? . 2. In the top header, click ???high blood pressure.?? 3. For a printable blood pressure tracker, scroll toward the bottom of the page to Related Tools, and click ???HBP Trackers.?? 2-297-MMK-USA-1 or ( ) National Heart, Lung and Blood [place]: http://www.nhlbi.nih.gov/health/infoctr/index.htm Where can I go for support and more information? There are many ways to quit smoking. Some may work better for you than others. Your caregiver can help you find the best plan to quit. Smokefree.gov Phone: 6-812-YANZ-NOW ( ) www.smokefree.gov [employer] Association Phone: Phone: www.lung.org Instant Rewards [...] Progress Notes * Sveta Rai MD - 11/23/2015 1:31 PM CDT SUBJECTIVE: Lucretia Rodriguez is a 50 y.o. female with Chief Complaint Patient presents with ??? Hyperlipidemia ??? Hypertension ??? Depression ??? Anxiety ??? Sleep Problem HPI: Patient is here to follow-up on chronic conditions. labs done last week, results reviewed with her today, significant for increased A1c to 6.6 she is now diabetic. She has gained 15 lb during the last 3 months, she admitted to eating unhealthy food choices including TV dinner, she does not fix her meals, and she eats frequently. her triglycerides are still high with her poor diet however LDL is well controlled, she is currently taking Lipitor 20 mg, denies any muscle. she has depression and anxiety and was treating her with Celexa 40 mg daily. She thinks her symptoms is better, but I think she needs to see a psychiatrist due to her uncontrolled eating and depression and anxiety. Her blood pressure is well controlled on lisinopril and metoprolol. Complained about snoring at night. Recent flare up of her MS ( presented with leg weakness) treated with cortisone by Neurology, currently on the taper dose. Past Medical History Diagnosis Date ??? Heart attack 2010 ??? HTN (hypertension) ??? Hyperlipemia ??? Multiple sclerosis 2005 Dr. Almanza ??? H/O heart artery stent 2010 [id number] [facility]( ) [facility] ??? H/O laparoscopic adjustable gastric banding 2009 ??? S/P tonsillectomy ??? Migraine ??? Hypothyroid ??? Depressive disorder, not elsewhere classified ??? Generalized anxiety disorder ??? Tension headache ??? Stomach ulcer ??? Anemia History Social History ??? Marital Status: Spouse Name: N/A Number of Children: 2 ??? Years of Education: N/A Occupational History ??? [employer] Social History Main Topics ??? Smoking status: [...] - chills, fatigue or fever Psychological ROS: positive for - depression negative for - suicidal ideation Respiratory ROS: no cough, shortness of breath, or wheezing Cardiovascular ROS: no chest pain or dyspnea on exertion Gastrointestinal ROS: no abdominal pain, change in bowel habits, or black or bloody stools Genito-Urinary ROS: no dysuria, trouble voiding, or hematuria Musculoskeletal ROS: negative for - joint pain Neurological ROS: no TIA or stroke symptoms OBJECTIVE: BP 130/98 mmHg Pulse 66 Resp 14 Wt 119.75 kg (264 lb) BMI 45.29 kg/m2 General: alert, cooperative, no distress Eyes: [...] Cranial nerves 2-12 andsensation grossly intact. ASSESSMENT: Essential hypertension Prediabetes Mixed hyperlipidemia Major depressive disorder, recurrent episode, moderate Hypothyroidism, adult Hot flashes, menopausal MS (multiple sclerosis) Snoring - Plan: POLYSOMNOGRAM WITH CPAP IF INDICATED Morbid obesity due to excess calories - Plan: AMB REFERRAL TO PSYCHIATRY PLAN: Orders Placed This Encounter ??? AMB REFERRAL TO PSYCHIATRY Standing Status: Future Number of Occurrences: Standing Expiration Date: 11/22/2016 Referral Priority: Routine Referral Type: Evaluate Referral Reason: Specialty Services Required Referred to Provider: Ash Ku MD Number of Visits Requested: 1 ??? POLYSOMNOGRAM WITH CPAP IF INDICATED Standing Status: Future Number of Occurrences: Standing Expiration Date: 11/22/2016 ??? metFORMIN (GLUCOPHAGE) 500 MG tablet Sig: Take 1 Tab by mouth once daily Dispense: 90 Tab Refill: 1 Screenings Future Falls: Depression: PHQ-2:TOTAL POINT SCORE: 1 PHQ-9: - Start metformin for diabetes. - Psychiatrist consult for uncontrolled eating habits and depression. - follow up with me in 3 months. documented in this encounter Plan of Treatment Upcoming Encounters Date Type Department Care Team (Late st Contact Info) Description 09/27/2024 2:20 PM OPHTHALMIC SURGICAL ASSISTANT Office Visit [facility] Neurosciences [address] [facility] [address] [place] [phone] [place] [address] [facility] [address] [place] [address] 09/28/2024 1:00 PM OPHTHALMIC SURGICAL ASSISTANT Office Visit [facility] Medical Group - [address] [address], [facility] [address] [place] [address] [place] [address] [address] [facility] [address] [place] [address] documented as of this encounter Goals Goal Patient Goal Type Associated Problems Recent Progress Patient-Stated? Author Blood Pressure < 140/90 Blood Pressure 102/69(2022 11:30 AM OPHTHALMIC SURGICAL ASSISTANT) No Melinda Newsome Quit smoking / using tobacco Lifestyle No Melinda Newsome documented as of this encounter Visit Diagnoses Diagnosis Essential hypertension- Primary Prediabetes Other abnormal glucose Mixed hyperlipidemia Major depressive disorder, recurrent episode, moderate (HCC) Major depressive disorder, recurrent episode, moderate Hypothyroidism, adult Other specified acquired hypothyroidism Hot flashes, menopausal Symptomatic menopausal or female climacteric states MS (multiple sclerosis) (HCC) Multiple sclerosis Snoring Other dyspnea and respiratory abnormality Morbid obesity due to excess calories (HCC) documented in this encounter Care Teams Recycler Forklift Driver Truck Driver Relationship Specialty Start Date End Date Sveta Rai MD PCP - General Internal Medicine 02/22/13 12/07/16 Stevenson Almanza MD Neurology 08/16/14 documented as of this encounter
--- OUTSIDE RECORDS SUMMARY | 2024-09-18 09:34 | XMS_ITS | Encounter Summary ---
Author Organization [facility] Address [address] [facility] [place] [address] Care Team Providers Care Car Construction Superintendent Name Role Phone Sveta Rai MD Primary Care Provider Stevenson Almanza MD Unavailable [phone] Reason for Visit * Reason Comments Refill Request Encounter Details Date Type Department Care Team (Late st Contact Info) Description 11/17/2015 Refill [facility] Medical [facility] - Family Medicine [address] [place] [address] Sveta Rai MD [address] [place] [address] [address] NOON[address] [place] [address] Refill Request Social History Tobacco Use Types [...] Telephone Encounter - Rekha Newsome MA - 11/19/2015 10:37 AM CDT Lucretia Rodriguez Requested Prescriptions Pending Prescriptions Disp Refills ??? fluticasone propionate (FLONASE) 50 MCG/ACT nasal spray [Pharmacy Med Name: FLUTICASONE PROP 50MCG SPRAY] 3 Bottle 3 Sig: USE 2 SPRAYS INTO EACH NOSTRIL ONCE A DAY Allergies Allergen Reactions ??? Sulfa Drugs ??? Latex Last refill- 10/18/15 Last OV-09/18/15 Scheduled-11/23/15 documented in this encounter Plan of Treatment Upcoming Encounters Date Type Department Care Team (Late st Contact Info) Description 09/27/2024 2:20 PM BURSAR Office Visit [facility] Neurosciences [address] [facility] [address] [place] [phone] [place] [address] [facility] [address] [place] [phone] 09/28/2024 1:00 PM BURSAR Office Visit [facility] [place] [address] [address] [facility] [address] [place] [address] [place] [address] [facility] [address] [place] [address] documented as of this encounter Goals Goal Patient Goal Type Associated Problems Recent Progress Patient-Stated? Author Blood Pressure < 140/90 Blood Pressure 102/69(2022 11:30 AM BURSAR) No Melinda Newsome Quit smoking / using tobacco Lifestyle No Melinda Newsome documented as of this encounter Visit Diagnoses Not on filedocumented in this encounter Care Teams Car Construction Superintendent Relationship Specialty Start Date End Date Sveta Rai MD PCP - General Internal Medicine 02/22/13 12/07/16 Stevenson Almanza MD Neurology 08/16/14 documented as of this encounter
--- OUTSIDE RECORDS SUMMARY | 2024-09-18 09:34 | XMS_ITS | Encounter Summary ---
Author Organization [facility] Address [address] [facility] [place] [address] Care Team Providers Care Operations Coordinator Name Role Phone Sveta Rai MD Primary Care Provider Stevenson Almanza MD Unavailable [phone] Dequan Baxter MD Unavailable [phone] Reason for Visit * Reason Onset Date Comments MEDICATION REFILL 04/17/2016 Encounter Details Date Type Department Care Team (Late st Contact Info) Description 04/17/2016 Refill [facility] Medical [facility] - Family Medicine [address] [place] [address] Sveta Rai MD [address] [place] [address] [address] MEDICATION REFILL Social History Tobacco [...] * Telephone Encounter - Edith Cohn - 04/21/2016 4:41 PM CDT Phoned into pharmacy * Telephone Encounter - Rekha Newsome MA - 04/21/2016 9:57 AM CDT Lucretia Rodriguez Requested Prescriptions Pending Prescriptions Disp Refills ??? zolpidem (AMBIEN) 5 MG tablet 30 Tab 1 Sig: Take 1 Tab by mouth nightly as needed for Insomnia Allergies Allergen Reactions ??? Latex ??? Sulfa Drugs Last refill- 02/18/16 with 1 Last OV-02/26/16 Scheduled-05/27/16 documented in this encounter Plan of Treatment Upcoming Encounters Date Type Department Care Team (Late st Contact Info) Description 09/27/2024 2:20 PM RESEARCH TECH Office Visit [facility] Health Neurosciences [address] [facility] [address] [place] [address] [place] [address] [facility] [address] [place] [address] 09/28/2024 1:00 PM RESEARCH TECH Office Visit [facility] [place] [address] [address] Barrett, [facility] [address] [place] [address] [place] [address] [address] [facility] [address] [place] [address] documented as of this encounter Goals Goal Patient Goal Type Associated Problems Recent Progress Patient-Stated? Author Blood Pressure < 140/90 Blood Pressure 102/69(2022 11:30 AM RESEARCH TECH) No Melinda Newsome Quit smoking / using tobacco Lifestyle No Melinda Newsome documented as of this encounter Visit Diagnoses Diagnosis Other insomnia documented in this encounter Care Teams Operations Coordinator Relationship Specialty Start Date End Date Sveta Rai MD PCP - General Internal Medicine 02/22/13 12/07/16 Stevenson Almanza MD Neurology 08/16/14 [place] [address] [place] [address] Pulmonary Disease 02/14/16 documented as of this encounter
--- OUTSIDE RECORDS SUMMARY | 2024-09-18 09:34 | XMS_ITS | Encounter Summary ---
Author Organization [facility] Address [address] [place] [address] Care Team Providers Care Gold Miner Name Role Phone Sveta Rai MD Primary Care Provider [phone] Stevenson Almanza MD Unavailable [phone] Dequan Baxter MD Unavailable [phone] Reason for Visit * Reason Comments [facility] Sleep Study Follow Up home study Encounter Details Date Type Department Care Team (Late st Contact Info) Description 02/14/2016 12:40 PM CDT Office Visit [facility] Medical [facility] - Pulmonology [id number] [place] [address] [place] [address] Dequan Baxter MD [id number] [place] [address] [place] [address] LISSETTE (obstructive sleep apnea) (Primary Dx); Morbid obesity, unspecified obesity type (HCC); HTN (hypertension), benign Social History Tobacco Use Types Packs/Day Years [...] Sign Reading Time Taken Comments Blood Pressure 128/80 02/14/2016 12:51 PM CDT Pulse 82 02/14/2016 12:51 PM CDT Temperature 36.8 ??C (98.2 ??F) 02/14/2016 12:51 PM C DT Respiratory Rate 16 02/14/2016 12:51 PM CDT Oxygen Saturation 95% 02/14/2016 12:51 PM CDT room air Inhaled Oxygen Concentration - - Weight 117.9 kg (260 lb) 02/14/2016 12:51 PM CDT Height 162.6 cm (5' 4 ) 02/14/2016 12:51 PM CDT Body Mass Index 44.63 02/14/2016 12:51 PM CDT documented in this encounter Functional [...] * Patient Instructions* Dequan Baxter MD - 02/14/2016 12:50 PM CDT You will be set up with CPAP at pressure of 4-20. [employer] company will you contact to set that up and teach you everything on how to clean and operate the machine. You need to use the machine every night for at least more than 5 hours for optimal result. Follow up in the clinic in 6 weeks to check response and bring card and machine with you with your next visit. Do not drive if you are sleepy. Be cautious in the use of alcohol and sedative. Make every effort to loose weight. Call clinic and [employer] company if there is any problem or questions regarding the CPAP. documented in this encounter Progress Notes * Dequan Baxter MD - 02/14/2016 12:47 PM CDT Images from the original note were not included. SLEEP MEDICINE CONSULT- [facility] Name:Lucretia Rodriguez :1965 Sex:female PCP:Sveta Terry MD Referring Physician: PCP Chief Complaint: follow up on sleep study History of Presenting Illness: Lucretia Rodriguez is an 50 y.o. white female referred for a sleep evaluation. Patient had a Home sleep study done on 01/31/16 which shows mild sleep apnea with AHI of 11.4-14.5/ hr and she is here to discuss that. patient states that she was diagnosed with sleep apnea in [address] [facility] and used the CPAP for 5-6 years but then moved and lost her machine but also in between had lap band surgery lost significant weight and did not think that she needs the machine. Now she snores ,has woken herself with gasping and thinks that she may stops breathing and she had underwent a repeat home sleeps studyfor re-evaluation Patient with main concern of daytime fatigue with lack of energy and excessive day time sleepiness regardless of how many hours of sleep she gets. Prather sleepiness score (ESS) of 9 / 24 indicating excessive day time sleepiness. Does not reports falling asleep while driving, at work, while talkingto people and But at computer.Never had a accident or near accident due to sleepiness. Patient reports gaining 50 pounds over the last 6 months since she lost her . Denies family history of sleep disorder. Sleep schedule as follows Bedtime from 9-10 pm to 5;45 am to 6;15 am with onset in minutes to hrs with varable awakenings. Feels ok on waking up and Does not takes naps. STOP-Bang Sleep Apnea Screening Tool 1. Do you SNORE loudly (louder than talking or loud enough to be heard through closed doors)?yes 2. Do you often feel TIRED, fatigued, or sleepy during daytime?yes 3. Has anyone OBSERVED you stop breathing during your sleep?possibly 4. Do you have or are you being treated for high blood PRESSURE?yes 5. BMI more than 35?yes 6. AGE over 50 years old?yes 7. NECK circumference > 15.75 inches?17.5 8. Male GENDER?no >=3 yes answers: High-risk for LISSETTE <3 yes answers: Low-risk for LISSETTE Sleep Review (items in bold are present otherwise absent) Hypnagogic Hallucinations,Sleep Paralysis,Cataplexy, Sleep attacks,Sleepwalking, Automatic Behavior, frequent Nocturnal awakenings, Memory problem, night sweats Nocturia , Anxiety Depression, sleep talking, teeth grinding, night reeves, acting out of dreams,insomnia, sedative use, shift work. Allergies or sinus issues.Morning headaches, dry mouth, sore throat. Witnessed apneas,waking up choking, gasping, planned naps, Unintentional Naps ,Leg jerking, Restless Legs, heart burn , aches pain disrupting sleep, palpitations. Past Medical History Diagnosis Date ??? Heart attack 2010 ??? HTN (hypertension) ??? Hyperlipemia ??? Multiple sclerosis 2005 Dr. Almanza ??? H/O heart artery stent 2010 [id number] LAD( ) [facility] ??? H/O laparoscopic adjustable [...] ??? Ercp 08/12/2013 ERCP ??? Endometrial ablation 2005 for heavy menses. ??? Carpal tunnel surgery [...] Medication Sig Dispense Refill ??? atorvastatin (LIPITOR) 40 MG tablet Take 1 Tab by mouth at bedtime 90 Tab 1 ??? levothyroxine (SYNTHROID) 88 MCG tablet Take 1 Tab by mouth daily before breakfast 30 Tab 3 ??? zolpidem (AMBIEN) 5 MG tablet Take 1 Tab by mouth nightly as needed for Insomnia 30 Tab 0 ??? metoprolol tartrate (LOPRESSOR) 50 MG tablet TAKE ONE TABLET BY MOUTH TWICE A DAY 180 Tab 1 ??? meloxicam (MOBIC) 15 MG tablet TAKE ONE TABLET BY MOUTH ONCE DAILY 90 Tab 1 ??? Blood Glucose Monitoring Suppl (ONE TOUCH BASIC SYSTEM) W/DEVICE KIT Use once daily 1 Kit 0 ??? ONE TOUCH LANCETS MISC Use once daily 200 Each 1 ??? metFORMIN (GLUCOPHAGE) 500 MG tablet Take 1 Tab by mouth once daily 90 Tab 1 ??? fluticasone propionate (FLONASE) 50 MCG/ACT nasal spray USE 2 SPRAYS INTO EACH NOSTRIL ONCE A DAY 3 Bottle 3 ??? lisinopril (PRINIVIL; ZESTRIL) 40 MG tablet Take 1 Tab by mouth once daily 30 Tab 3 ??? [place]-3 Fatty Acids (FISH OIL) 1000 MG capsule Take 1 Cap by mouth once daily ??? Nutritional Supplements (ESTROVEN PO) Take by mouth once daily ??? citalopram (CELEXA) 40 MG tablet Take 1 Tab by mouth once daily 90 Tab 3 ??? loratadine (CLARITIN) 10 MG tablet Take 10 mg by mouth once daily. ??? nitroglycerin (NITROSTAT) 0.4 MG tablet Dissolve 1 Tab under the tongue every 5 minutes as needed for Angina. 100 Tab 3 ??? aspirin 325 MG tablet Take 325 mg by mouth once daily. ??? B Complex Vitamins (B-COMPLEX/B-12 PO) Take 1,000 mcg by mouth. ??? Cholecalciferol (VITAMIN D) 1000 UNIT capsule Take 5,000 Units by mouth once daily ??? amantadine (SYMMETREL) 100 MG capsule Take 100 mg by mouth 2 times daily ??? gabapentin (NEURONTIN) 300 MG capsule Take 300 mg by mouth 2 times daily No current facility-administered medications for this visit. Allergies Allergen Reactions ??? Sulfa Drugs ??? Latex History Social History ??? Marital Status: Spouse Name: N/A Number of Children: 2 ??? Years of Education: N/A Occupational History ??? [email or web address] Social History Main Topics ??? Smoking status: Current Every Day Smoker -- 1/2 packs/day for 30 years Types: Cigarettes Start date: 08/18/2013 ??? Smokeless tobacco: Never Used ??? Alcohol Use: 0.0 oz/week 0 Not specified per week Comment: Rarely ??? Drug Use: No ??? Sexual Activity: Partners: Male Other Topics Concern ??? Exercise No Social History Narrative Review of Systems (items in bold are present, items not bold are absent) GENERAL: fever, sweats, chills, weight change ENT: nasal congestion, nasal drainage, epistaxis, snoring, hoarsness CARDIOVASCULAR: chest pain, palpitations, peripheral edema, murmurs, chest pain , orthopnea, exertional dyspnea GI: nausea, vomiting, melena, hematochezia, heartburn, epigastric pain : dysuria, hematuria, nocturia MUSCULOSKELETAL: joint pain, muscle pain NEUROLOGIC: focal weakness, generalized weakness, tremor, stroke ENDOCRINE: diabetes, thyroid disease, fatigue HEMATOLOGIC: blood clot, unusual bleeding, anemia, low iron, transfusion DERMATOLOGIC: rash, skin cancer PSYCHIATRIC: depression, anxiety, bipolar, schizophrenia RESPIRATORY: dyspnea, cough, wheeze, hemoptysis, orthopnea, PND, PE, DVT, Objective: GENERAL: Lucretia Rodriguez is a 50 y.o. female in no distress. Body mass index is 44.61 kg/(m^2). Vitals: 02/14/16 1251 BP: 128/80 Pulse: 82 Temp: 98.2 ??F Resp: 16 Weight: 117.935 kg (260 lb) SpO2: 95% HEENT: The nares are not congested. The oropharynx Narrow, No retrognathia and otherwise is benign.Mallampati IV. WILLI , EOMI , normocephalic, No overbite, No overjet NECK: Neck size 17.5 There is no cervical nor supraclavicular adenopathy. The carotids are normal. The thyroid is unremarkable. There is no obvious JVD. The trachea is midline. CHEST: There is equal expansion with good effort. Percussion is normal. Palpation is normal. Auscultation reveals normal breath sounds with no wheezing or rales CARDIAC: Regular rate and rhythm. No murmur. No rub. No gallop. ABDOMEN: Soft and non-tender. No hepatosplenomegaly. No mass. EXTREMITIES: No clubbing. No cyanosis. No edema. NEUROLOGIC: The patient is alert and oriented. Mood is normal. Motor exam is non-focal. 5/5 power Gait is normal. SKIN: Unremarkable. Assessment/Plan: 1. LISSETTE (obstructive sleep apnea) Mild severity likely Underestimated because of the home testing. Will set up on auto CPAP at 5-20 cm water - AMB REFERRAL FOR DME; Future Results of the sleep study were discussed in detail with the patient. Patient has obstructive sleepapnea. The etiology, pathogenesis and adverse health related side effects of untreated obstructive sleep apnea were discussed in detail with the patient. All questions answered. I have briefly discussed the association of sleep apnea with high blood pressure, excessive day time sleepiness and increase risk of automobile accidents. Other cardio and cerebrovascular risk associations have been mentioned as well. I have discussed the different modalities of treatment for sleep apnea based on the severity including positive airway pressure therapy commonly CPAP, mandibular advancement devices including dental appliances and modification of upper airways by ENT evaluation and weight loss. Novel therapy Provent nasal expiratory valve and hypoglossal nerve stimulation were mentioned as well. Pros and cons of each treatment modality were explain in detail. All questions were answered. Patient verbalized understanding. Patient wants to proceed with CPAP treatment based on the severity of underlying sleep disordered breathing. Initiate CPAP at the settings determined in CPAP titration study. Resmed Airsense 10 CPAP Autoset at 5-20 cm H20 with Autoramp, EPR of 2 with climate inline heating tubing Prescription send for CPAP to DME. I advised the patient not to drive or operate heavy machinery if sleepy and caution is advised withthe use of sedatives and alcohol. The patient verbalized understanding . 2. Morbid obesity, unspecified obesity type Weight loss emphasized. The association between obesity and obstructive sleep apnea was explained .I informed the patient that the severity of obstructive sleep apnea will improve with weight loss. The patient verbalized understanding . Surgical and non surgical weight loss has been discussed as well. 3. HTN (hypertension), benign Association with lissette discussed Regular sleep wake cycle with adequate hours of sleep has been stressed as well. Follow up in 4 to 5 weeks to document compliance and efficacy. The patient to bring smart card [employer], on next visit. Orders Placed This Encounter ??? AMB REFERRAL FOR DME Standing Status: Future Number of Occurrences: Standing Expiration Date: 02/13/2017 Referral Type: Durable Medical Equipment Referral Location: [facility] Number of Visits Requested: 1 Patient Instructions You will be set up with CPAP at pressure of 4-20. DME company will you contact to set that up and teach you everything on how to clean and operate the machine. You need to use the machine every night for at least more than 5 hours for optimal result. Follow up in the clinic in 6 weeks to check response and bring card and machine with you with your next visit. Do not drive if you are sleepy. Be cautious in the use of alcohol and sedative. Make every effort to loose weight. Call clinic and DME company if there is any problem or questions regarding the CPAP. Please do not hesitate to call at [phone] if there are any questions regarding this patient's care. Dequan Baxter M.D. Diplomat [place] [employer] (ABSM) Diplomat Pulmonary, Critical Care & Sleep Medicine documented in this encounter Plan of Treatment Upcoming Encounters Date Type Department Care Team (Late st Contact Info) Description 09/27/2024 2:20 PM LOBBY CONCIERGE Office Visit [facility] Neurosciences [address] [address] [place] [address] [facility] [address] [place] [id number] 09/28/2024 1:00 PM LOBBY CONCIERGE Office Visit [facility] [place] [address] Michele Barrett, [facility] [address] [place] [address] [place] [address] [address] [facility] [address] [place] [address] documented as of this encounter Goals Goal Patient Goal Type Associated Problems Recent Progress Patient-Stated? Author Blood Pressure < 140/90 Blood Pressure 102/69(2022 11:30 AM LOBBY CONCIERGE) No Melinda Newsome Quit smoking / using tobacco Lifestyle No Adilson Newsomey documented as of this encounter Visit Diagnoses Diagnosis LISSETTE (obstructive sleep apnea)- Primary Obstructive sleep apnea (adult) (pediatric) Morbid obesity, unspecified obesity type (HCC) HTN (hypertension), benign Essential hypertension, benign documented in this encounter Care Teams Gold Miner Relationship Specialty Start Date End Date Sveta Rai MD PCP - General Internal Medicine 02/22/13 12/07/16 Stevenson Almanza MD Neurology 08/16/14 [place] [address] [address] Pulmonary Disease 02/14/16 documented as of this encounter
--- OUTSIDE RECORDS SUMMARY | 2024-09-18 09:34 | XMS_ITS | Encounter Summary ---
Author Organization [facility] Address [address] [place] [address] Care Team Providers Care Brooch Maker Novelty Name Role Phone Sveta Rai MD Primary Care Provider [phone] Stevenson Almanza MD Unavailable [phone] Dequan Baxter MD Unavailable [phone] Reason for Visit * Reason Comments Sleep Apnea f/u Encounter Details Date Type Department Care Team (Late st Contact Info) Description 03/28/2016 1:30 PM CDT Office Visit [facility] - Pulmonology [id number] [place] [address] [facility] [address] [address] LISSETTE (obstructive sleep apnea) (Primary Dx); Essential hypertension; Morbid obesity, unspecified obesity type (HCC) Social [...] Sign Reading Time Taken Comments Blood Pressure 126/84 03/28/2016 1:43 PM CDT Pulse 80 03/28/2016 1:43 PM CDT Temperature 36.7 ??C (98 ??F) 03/28/2016 1:43 PM CDT Respiratory Rate 16 03/28/2016 1:43 PM CDT Oxygen Saturation 96% 03/28/2016 1:43 PM CDT Inhaled Oxygen Concentration - - Weight 119.3 kg (263 lb) 03/28/2016 1:43 PM CDT Height 162.6 cm (5' 4 ) 03/28/2016 1:43 PM CDT Body Mass Index 45.14 03/28/2016 1:43 PM CDT documented in this encounter Functional [...] this encounter Patient Instructions * Patient Instructions* Brina Yip APRN-CNP - 03/28/2016 2:05 PM CDT It was a pleasure seeing you in the office today We will narrow your CPAP pressure We will order you comfort patches We will continue to have you wear the device with ALL sleep periods Continue cleaning your CPAP as instructed by [facility] If you have any questions, please don't hesitate to call us documented in this encounter Progress Notes * Brina Yip APRN-CNP - 03/28/2016 1:54 PM CDT SLEEP MEDICINE FOLLOW UP- [facility] Name:Lucretia Rodriguez :1965 Sex:female PCP:Sveta Terry MD Chief Complaint: LISSETTE follow up History of Presenting Illness: Ms. Rodriguez is a 50 year female I had the pleasure of seeing for Dr. Baxter. She is known to our practice for a history of LISSETTE. She had a home sleep study done 01/31/2016 which displayed mild sleepapnea with an apnea hypopnea index of 11.4-14.5 episodes per hour. She was diagnosed with sleep apnea in 2005 at [facility] and used the CPAP for 5-6 years but then moved and lost her machinebut also in between had lap band surgery lost significant weight and did not think that she needs the machine. She had a restudy due to snoring, gasping for air while sleepiness, night sweats, excessive daytime fatigue no matter how many hours of sleep she would get. Lack of energy. She does not reports falling asleep while driving, at work, while talking to people or at the computer. Never had aaccident or near accident due to sleepiness.She reports gaining over 50 pounds in the last 8 monthsafter losing her . She reports morning headaches, and dry mouth. She was started on auto CPAP [id number] and is here for follow up. She does not feel any differently. She does not snore, but her epworth sleepiness score is still 10/24. She reports falling still dozing while watching TV/reading. She does not feel like she has any more energy. Sleep schedule as follows Bedtime from 9-10 pm to 5;45 am to 6;15 am with onset in minutes. Feels ok on waking up and does not takes naps. CPAP Adherence: 30 days reviewed >4 hour adherence 100%, average usage 8 hours 5 minutes, 95th percentile pressure 15.1, with a MAX pressure of 17.3, average AHI 7.4 episodes per hour. Past Medical History Diagnosis Date ??? Heart attack 2010 ??? HTN (hypertension) ??? Hyperlipemia ??? Multiple sclerosis 2005 Dr. Almanza ??? H/O heart artery stent 2010 [id number] LAD( ) niry ??? H/O laparoscopic adjustable [...] Outpatient Prescriptions Medication Sig Dispense Refill ??? lisinopril (PRINIVIL; ZESTRIL) 40 MG tablet TAKE ONE TABLET BY MOUTH ONCE DAILY 30 Tab 3 ??? zolpidem (AMBIEN) 5 MG tablet Take 1 Tab by mouth nightly as needed for Insomnia 30 Tab 1 ??? atorvastatin (LIPITOR) 40 MG [...] ONCE A DAY 3 Bottle 3 ??? [place]-3 Fatty Acids (FISH OIL) 1000 MG capsule [...] Years of Education: N/A Occupational History ??? [employer] Social History Main Topics ??? Smoking status: [...] in no distress. Body mass index is 45.12 kg/(m^2). Vitals: 03/28/16 1343 BP: 126/84 Pulse: 80 Temp: 98 ??F Resp: 16 Weight: 119.296 kg (263 lb) SpO2: 96% Wt Readings from Last 3 Encounters: 03/28/16 119.296 kg (263 lb) 02/26/16 117.482 kg (259 lb) 02/14/16 117.935 kg (260 lb) HEENT: The nares are not congested. [...] the home testing. On auto CPAP at 5-20 cm water AHI is still high at 7.4 We will increase lower limit pressure 10-20 We will have patient tighten mask to decrease leak We will order comfort patches Resmed Airsense 10 CPAP Autoset discussed the association of sleep apnea with [...] Association with lissette discussed Follow up in 2 months for reassessment It was a pleasure taking part in Ms. Rodriguez's care. Brina VILLANUEVA- Pulmonary Disease documented in this encounter Plan of Treatment Upcoming Encounters Date Type Department Care Team (Late st Contact Info) Description 09/27/2024 2:20 PM TOOL HARDENER Office Visit [facility] Health Neurosciences [address] [place] [address] [place] [address] JUAN ALBERTO [address] [place] [address] 09/28/2024 1:00 PM TOOL HARDENER Office Visit [facility] [place] [address] [address] , Juan Alber[address] [place] [address] [place] [address] [address] [facility] [address] [place] [address] documented as of this encounter Goals Goal Patient Goal Type Associated Problems Recent Progress Patient-Stated? Author Blood Pressure < 140/90 Blood Pressure 102/69(2022 11:30 AM TOOL HARDENER) No Melinda Newsome Quit smoking / using tobacco Lifestyle No Melinda Newsome documented as of this encounter Visit Diagnoses Diagnosis LISSETTE (obstructive sleep apnea)- Primary Obstructive sleep apnea (adult) (pediatric) Essential hypertension Morbid obesity, unspecified obesity type (HCC) documented in this encounter Care Teams Brooch Maker Novelty Relationship Specialty Start Date End Date Sveta Rai MD PCP - General Internal Medicine 02/22/13 12/07/16 Stevenson Almanza MD Neurology 08/16/14 [place] [address] [place] [address] Pulmonary Disease 02/14/16 documented as of this encounter
--- OUTSIDE RECORDS SUMMARY | 2024-09-18 09:34 | XMS_ITS | Encounter Summary ---
Author Organization [facility] Address [address] [place] [address] Care Team Providers Care Auditor Supervisor Name Role Phone Sveta Rai MD Primary Care Provider Stevenson Almanza MD Unavailable [phone] Dequan Baxter MD Unavailable [phone] Reason for Visit * Reason Onset Date Comments MEDICATION REFILL 02/17/2016 Encounter Details Date Type Department Care Team (Late st Contact Info) Description 02/17/2016 Refill [facility] Medical [facility] - Family Medicine [address] [place] [address] Sveta Rai MD [address] [place] [address] [address] MEDICATION REFILL Social History Tobacco [...] Telephone Encounter - Edith Cohn - 02/19/2016 8:58 AM CDT Phoned in to pharmacy. * Telephone Encounter - Rekha Newsome MA - 02/18/2016 10:56 AM CDT Lucretia Rodriguez Requested Prescriptions Pending Prescriptions Disp Refills ??? zolpidem (AMBIEN) 5 MG tablet 30 Tab 1 Sig: Take 1 Tab by mouth nightly as needed for Insomnia Allergies Allergen Reactions ??? Sulfa Drugs ??? Latex Last refill- 01/18/16 Last OV-01/15/16 Scheduled-02/26/16 documented in this encounter Plan of Treatment Upcoming Encounters Date Type Department Care Team (Late st Contact Info) Description 09/27/2024 2:20 PM TELEVISION NEWS PRODUCER Office Visit [facility] Neurosciences [address] [facility] [address] [place] [address] [place] [address] [facility] [address] [place] [address] 09/28/2024 1:00 PM TELEVISION NEWS PRODUCER Office Visit [facility] [place] [address] [address] [facility] [address] [place] [address] [place] [address] [address] [facility] [address] [place] [address] documented as of this encounter Goals Goal Patient Goal Type Associated Problems Recent Progress Patient-Stated? Author Blood Pressure < 140/90 Blood Pressure 102/69(2022 11:30 AM TELEVISION NEWS PRODUCER) No Melinda Newsome Quit smoking / using tobacco Lifestyle No Melinda Newsome documented as of this encounter Visit Diagnoses Diagnosis Other insomnia documented in this encounter Care Teams Auditor Supervisor Relationship Specialty Start Date End Date Sveta Rai MD PCP - General Internal Medicine 02/22/13 12/07/16 Stevenson Almanza MD Neurology 08/16/14 [place] [address] [place] [address] Pulmonary Disease 02/14/16 documented as of this encounter
--- OUTSIDE RECORDS SUMMARY | 2024-09-18 09:34 | XMS_ITS | Encounter Summary ---
Author Organization [facility] Address [address] [facility] [place] [address] Care Team Providers Care Biodiesel Plant Superintendent Name Role Phone Sveta Rai MD Primary Care Provider Stevenson Almanza MD Unavailable [phone] Reason for Visit * Reason Onset Date Comments MEDICATION REFILL 02/06/2016 Encounter Details Date Type Department Care Team (Late st Contact Info) Description 02/06/2016 Refill [facility] Medical [facility] - Family Medicine [address] [address] [phone] Sveta Rai MD [address] [place] [address] DR NOONAN [address] [place] [address] MEDICATION REFILL Social History Tobacco Use Types [...] Telephone Encounter - Rekha Newsome MA - 02/07/2016 1:41 PM CDT Lucretia Rodriguez Requested Prescriptions Pending Prescriptions Disp Refills ??? atorvastatin (LIPITOR) 20 MG tablet 90 Tab 1 Sig: Take 2 Tabs by mouth at bedtime Allergies Allergen Reactions ??? Sulfa Drugs ??? Latex Last refill- 08/06/15 with 1 refill Last OV-11/23/15 Scheduled-02/26/16 documented in this encounter Plan of Treatment Upcoming Encounters Date Type Department Care Team (Late st Contact Info) Description 09/27/2024 2:20 PM PRODUCTION ENGINEER TRACK Office Visit [facility] Neurosciences [address] [address] [place] [address] [facility] [address] [place] [phone] 09/28/2024 1:00 PM PRODUCTION ENGINEER TRACK Office Visit [facility] [place] [address] Michele Barrett, [facility] 500 [place] [address] [place] [address] [address] BARRETT [facility] [address] [place] [address] documented as of this encounter Goals Goal Patient Goal Type Associated Problems Recent Progress Patient-Stated? Author Blood Pressure < 140/90 Blood Pressure 102/69(2022 11:30 AM PRODUCTION ENGINEER TRACK) No Melinda Newsome Quit smoking / using tobacco Lifestyle No Melinda Newsome documented as of this encounter Visit Diagnoses Diagnosis Mixed hyperlipidemia documented in this encounter Care Teams Biodiesel Plant Superintendent Relationship Specialty Start Date End Date Sveta Rai MD PCP - General Internal Medicine 02/22/13 12/07/16 Stevenson Almanza MD Neurology 08/16/14 documented as of this encounter
--- OUTSIDE RECORDS SUMMARY | 2024-09-18 09:34 | XMS_ITS | Encounter Summary ---
Author Organization [facility] Address [address] [facility] [place] [address] Care Team Providers Care Tree Planter Name Role Phone Sveta Rai MD Primary Care Provider Stevenson Almanza MD Unavailable [phone] Dequan Baxter MD Unavailable [phone] Reason for Visit * Reason Onset Date Comments MEDICATION REFILL 03/20/2016 Encounter Details Date Type Department Care Team (Late st Contact Info) Description 03/20/[address] [facility] Medical [facility] - Family Medicine [address] [place] [address] Sveta Rai MD [address] [place] [address] [address] MEDICATION REFILL Social History Tobacco [...] Telephone Encounter - Rekha Newsome MA - 03/21/2016 10:07 AM CDT Spoke to Carla at [facility] patient had 1 refill left on zolpidem (AMBIEN) 5 MG tablet. They will getready for patient. Patient advised of this via My [employer] documented in this encounter Plan of Treatment Upcoming Encounters Date Type Department Care Team (Late st Contact Info) Description 09/27/2024 2:20 PM SMOKING PIPE REPAIRER Office Visit [facility] Neurosciences [address] [phone] [place] [address] [facility] [address] [place] [phone] 09/28/2024 1:00 PM SMOKING PIPE REPAIRER Office Visit [facility] [place] [address] Michele Barrett, Juan Alberto [address] [place] [address] [place] [address] [address]LE BARRETT J[facility]ERT[facility] [address] [place] [address] documented as of this encounter Goals Goal Patient Goal Type Associated Problems Recent Progress Patient-Stated? Author Blood Pressure < 140/90 Blood Pressure 102/69(2022 11:30 AM SMOKING PIPE REPAIRER) No Melinda Newsome Quit smoking / using tobacco Lifestyle No Melinda Newsome documented as of this encounter Visit Diagnoses Diagnosis Other insomnia documented in this encounter Care Teams Tree Planter Relationship Specialty Start Date End Date Sveta Rai MD PCP - General Internal Medicine 02/22/13 12/07/16 Stevenson Almanza MD Neurology 08/16/14 [place] [address] [place] [address] Pulmonary Disease 02/14/16 documented as of this encounter
--- OUTSIDE RECORDS SUMMARY | 2024-09-18 09:34 | XMS_ITS | Encounter Summary ---
Author Organization [facility] Address [address] [facility] [place] [address] Care Team Providers Care Certified Surgical Tech/First Assistant Name Role Phone Sveta Rai MD Primary Care Provider Stevenson Almanza MD Unavailable [phone] Reason for Visit * Reason Onset Date Comments MEDICATION REFILL 12/14/2015 Encounter Details Date Type Department Care Team (Late st Contact Info) Description 12/14/2015 Refill [facility] Medical [facility] - Family Medicine [address] [place] [address] [phone] Sveta Rai MD [address] [place] [address] DR NOONAN [address] [place] [address] MEDICATION REFILL Social History Tobacco Use Types [...] * Telephone Encounter - Edith Cohn - 12/18/2015 9:27 AM CDT Phoned in to pharmacy * Telephone Encounter - Sol Phelps - 12/14/2015 11:50 AM CDT Lucretia Rodriguez Requested Prescriptions Pending Prescriptions Disp Refills ??? zolpidem (AMBIEN) 5 MG tablet 30 Tab 0 Sig: Take 1 Tab by mouth nightly as needed for Insomnia Allergies Allergen Reactions ??? Sulfa Drugs ??? Latex Last refill- 11/16/2015 Last OV-11/23/15 Future OV-02/26/2016 documented in this encounter Plan of Treatment Upcoming Encounters Date Type Department Care Team (Late st Contact Info) Description 09/27/2024 2:20 PM CLAIMS CONSULTANT Office Visit [facility] Health Neurosciences [address] [address] [place] [address] [facility] 100 [place] [address] 09/28/2024 1:00 PM CLAIMS CONSULTANT Office Visit [facility] [place] [address] Michele Barrett [facility] 500 [place] [address] [place] [address] MICHELE BARRETT [facility] [address] [place] [address] documented as of this encounter Goals Goal Patient Goal Type Associated Problems Recent Progress Patient-Stated? Author Blood Pressure < 140/90 Blood Pressure 102/69(2022 11:30 AM CLAIMS CONSULTANT) No Melinda Newsome Quit smoking / using tobacco Lifestyle No Melinda Newsome documented as of this encounter Visit Diagnoses Diagnosis Other insomnia documented in this encounter Care Teams Certified Surgical Tech/First Assistant Relationship Specialty Start Date End Date Sveta Rai MD PCP - General Internal Medicine 02/22/13 12/07/16 Stevenson Almanza MD Neurology 08/16/14 documented as of this encounter
--- OUTSIDE RECORDS SUMMARY | 2024-09-18 09:34 | XMS_ITS | Encounter Summary ---
Author Organization [facility] Address [address] [place] [address] Care Team Providers Care Freight Adjuster Name Role Phone Sveta Rai MD Primary Care Provider [phone] Stevenson Almanza MD Unavailable Reason for Visit * Reason Onset Date Comments MEDICATION REFILL 01/16/2016 Encounter Details Date Type Department Care Team (Late st Contact Info) Description 01/16/2016 Refill [facility] Medical [facility] - Family Medicine [address] [place] [address] [phone] Sveta Rai MD [address] [place] [address] DR NOONAN [address] [place] [phone] MEDICATION REFILL Social History Tobacco Use Types [...] * Telephone Encounter - Edith Cohn - 01/18/2016 1:29 PM CDT Phoned in to pharmacy * Telephone Encounter - Rekha Newsome MA - 01/17/2016 1:44 PM CDT Lucretia Rodriguez Requested Prescriptions Pending Prescriptions Disp Refills ??? zolpidem (AMBIEN) 5 MG tablet 30 Tab 0 Sig: Take 1 Tab by mouth nightly as needed for Insomnia Allergies Allergen Reactions ??? Sulfa Drugs ??? Latex Last refill- 12/15/15 Last OV-11/23/15 Scheduled-02/26/16 documented in this encounter Plan of Treatment Upcoming Encounters Date Type Department Care Team (Late st Contact Info) Description 09/27/2024 2:20 PM INDUSTRIAL MACHINERY MECHANIC Office Visit [facility] Health Neurosciences [address] [facility] [address] [place] [address] [place] [address] [facility] 100 [place] [address] 09/28/2024 1:00 PM INDUSTRIAL MACHINERY MECHANIC Office Visit [facility] [place] [address] Michele [address] [address] [place] [address] MICHELE BARRETT [facility] 500 [place] [address] documented as of this encounter Goals Goal Patient Goal Type Associated Problems Recent Progress Patient-Stated? Author Blood Pressure < 140/90 Blood Pressure 102/69(2022 11:30 AM INDUSTRIAL MACHINERY MECHANIC) No Melinda Newsome Quit smoking / using tobacco Lifestyle No Melinda Newsome documented as of this encounter Visit Diagnoses Diagnosis Other insomnia documented in this encounter Care Teams Freight Adjuster Relationship Specialty Start Date End Date Sveta Rai MD PCP - General Internal Medicine 02/22/13 12/07/16 Stevenson Almanza MD Neurology 08/16/14 documented as of this encounter
--- OUTSIDE RECORDS SUMMARY | 2024-09-18 09:34 | XMS_ITS | Encounter Summary ---
Author Organization [facility] Address [address] [facility] [place] [address] Care Team Providers Care Thermodynamics Professor Name Role Phone Sveta Rai MD Primary Care Provider [phone] Stevenson Almanza MD Unavailable [phone] Reason for Visit * Reason Comments Chest Pain Cough Encounter Details Date Type Department Care Team (Late st Contact Info) Description 01/15/2016 11:00 AM CDT Office Visit [facility] - Family Medicine [address] [place] [address] [phone] Sveta Rai MD [address] [place] [address] DR NOONAN [address] [place] [phone] Cough (Primary Dx); Acute URI; Acute bronchitis, unspecified organism Social History Tobacco Use Types Packs/Day Years [...] Sign Reading Time Taken Comments Blood Pressure 130/84 01/15/2016 11:33 AM CDT Pulse 82 01/15/2016 11:33 AM CDT Temperature 36.3 ??C (97.3 ??F) 01/15/2016 11:33 AM C DT Respiratory Rate 14 01/15/2016 11:33 AM CDT Oxygen Saturation - - Inhaled Oxygen Concentration - - Weight 118.4 kg (261 lb) 01/15/2016 11:33 AM CDT Height 162.6 cm (5' 4 ) 01/15/2016 11:33 AM CDT Body Mass Index 44.8 01/15/2016 11:33 AM CDT documented in this encounter Functional [...] Instructions * Patient Instructions* Edith Cohn - 01/15/2016 11:34 AM CDT Caring for Your High Blood Pressure [...] I go for more information? Citizen Of [place] Heart Association National Center: http://www.americanheart.org 1. In the top header, click ???Conditions?? . 2. In the top header, click ???high blood pressure.?? 3. For a printable blood pressure tracker, scroll toward the bottom of the page to Related Tools, and click ???HBP Trackers.?? 8-275-LAX-USA-1 or ( ) National Heart, Lung and Blood [place]: http://www.nhlbi.nih.gov/health/infoctr/index.htm Where can I go for support and more information? There are many ways to quit smoking. Some may work better for you than others. Your caregiver can help you find the best plan to quit. Smokefree.gov Phone: 9-260-TKJI-NOW ( ) www.smokefree.gov Citizen Of [place] Lung Association Phone: Phone: www.lung.org Instant Rewards [...] Progress Notes * Sveta Rai MD - 01/15/2016 11:45 AM CDT SUBJECTIVE: Lucretia Rodriguez is a 50 y.o. female with Chief Complaint Patient presents with ??? Chest Pain ??? Cough HPI: And complains about severe cough for a week, with yellowish-greenish sputum. Patient also complains about sharp chest pain when coughing ( substernal) and sometimes radiate to her back. She denies any fever or chills. No sinus congestion, headache, runny nose. No history of asthma or wheezing. no similar symptoms come on family members. Are not been using any [id number] medications, she cannot tolerate the cough syrups ( Makes her nauseous). Past Medical History Diagnosis Date ??? Heart attack 2010 ??? HTN (hypertension) ??? Hyperlipemia ??? Multiple sclerosis 2005 Dr. Almanza ??? H/O heart artery stent 2010 [id number] ??? H/O laparoscopic adjustable gastric banding 2009 ??? S/P tonsillectomy ??? Migraine ??? Hypothyroid ??? Depressive disorder, not elsewhere classified ??? Generalized anxiety disorder ??? Tension headache ??? Stomach ulcer ??? Anemia History Social History ??? Marital Status: Spouse Name: N/A Number of Children: 2 ??? Years of Education: N/A Occupational History ??? [employer] Social History Main Topics ??? Smoking status: [...] negative for - chills, fatigue or fever ENT ROS: negative for - headaches, sinus pain, sneezing or sore throat Respiratory ROS: positive for - cough and chest pain as above. negative for - shortness of breath or wheezing Cardiovascular ROS: negative for - dyspnea on exertion or palpitations Gastrointestinal ROS: no abdominal pain, change in bowel habits, or black or bloody stools Musculoskeletal ROS: negative for - joint pain or joint stiffness Neurological ROS: no TIA or stroke symptoms OBJECTIVE: BP 130/84 mmHg Pulse 82 Temp(Src) 97.3 ??F Resp 14 Wt 118.389 kg (261 lb) BMI 44.78 kg/m2 General: alert, cooperative, no distress Eyes: [...] Cranial nerves 2-12 andsensation grossly intact. ASSESSMENT: Cough - Plan: XR CHEST PA AND LATERAL, benzonatate (TESSALON) 200 MG capsule Acute URI Acute bronchitis, unspecified organism - Plan: XR CHEST PA AND LATERAL, amoxicillin-clavulanate (AUGMENTIN) 875-125 MG tablet PLAN: Orders Placed This Encounter ??? XR CHEST PA AND LATERAL Standing Status: Future Number of Occurrences: 1 Standing Expiration Date: 01/14/2017 Order Specific Question: Exam to be performed? Answer: Per Radiologist protocol ??? amoxicillin-clavulanate (AUGMENTIN) 875-125 MG tablet Sig: Take 1 Tab by mouth every 12 hours Dispense: 20 Tab Refill: 0 ??? benzonatate (TESSALON) 200 MG capsule Sig: Take 1 Cap by mouth 3 times daily as needed for Cough Dispense: 21 Cap Refill: 0 Screenings Future Falls: Depression: PHQ-2:TOTAL POINT SCORE: 0 PHQ-9: Follow-up as scheduled and p.r.n.. documented in this encounter Plan of Treatment Upcoming Encounters Date Type Department Care Team (Late st Contact Info) Description 09/27/2024 2:20 PM MAINTENANCE PIPEFITTER Office Visit [facility] [address] [place] [phone] [place] [address] [facility] [address] [place] [phone] 09/28/2024 1:00 PM MAINTENANCE PIPEFITTER Office Visit [facility] - [address] [address] Barrett [facility] 500 [place] [address] [place] [address] [address] [facility] [address] [place] [address] documented as of this encounter Goals Goal Patient Goal Type Associated Problems Recent Progress Patient-Stated? Author Blood Pressure < 140/90 Blood Pressure 102/69(2022 11:30 AM MAINTENANCE PIPEFITTER) No Melinda Newsome Quit smoking / using tobacco Lifestyle No Melinda Newsome documented as of this encounter Results * XR CHEST PA AND LATERAL (01/15/2016 [...] disease. Sveta Gross MD DIAGNOSTIC IMAGING ORDERABLES documented in this encounter Visit Diagnoses Diagnosis Cough- Primary Acute URI Acute upper respiratory infections of unspecified site Acute bronchitis, unspecified organism Cough Acute bronchitis, unspecified organism documented in this encounter Care Teams Thermodynamics Professor Relationship Specialty Start Date End Date Sveta Rai MD PCP - General Internal Medicine 02/22/13 12/07/16 Stevenson Almanza MD Neurology 08/16/14 documented as of this encounter
--- OUTSIDE RECORDS SUMMARY | 2024-09-18 09:34 | XMS_ITS | Encounter Summary ---
Author Organization [facility] Address [address] [facility] [place] [address] Care Team Providers Care Supply Chain Specialist Name Role Phone Sveta Rai MD Primary Care Provider Stevenson Almanza MD Unavailable [phone] Reason for Visit * Reason Onset Date Comments Medication Clarification 02/08/2016 Encounter Details Date Type Department Care Team (Late st Contact Info) Description 02/08/2016 Telephone [facility] Medical [facility] - Family Medicine [address] [place] [address] Sveta Rai MD [address] [place] [address] DR NOONAN [address] [place] [address] [phone] Medication Clarification Social History Tobacco Use Types Packs/Day Years [...] Telephone Encounter - Rekha Newsome MA - 02/08/2016 10:01 AM CDT [facility]qu[facility] from [facility] called to clarify the atorvastatin 20 mg. The directions and quantity do no match. On the 07/31/15 Lipid profile labs per Dr Flores patient was to increase the atorvastatin 20 mg[address] prescription was Eprescribed to the pharmacy was atorvastatin 20 mg take 2 tablets #90 with 1 refill. Advised pharmacy to fill atorvastatin 40 mg take 1 tablet at bed time instead of 2 at bedtime. Per pharmacy this would be more reasonable for patient. Updated patient medication list. documented in this encounter Plan of Treatment Upcoming Encounters Date Type Department Care Team (Late st Contact Info) Description 09/27/2024 2:20 PM CASE MANAGER Office Visit [facility] [address] [phone] [place] [address] [facility] 100 [place] [phone] 09/28/2024 1:00 PM CASE MANAGER Office Visit [facility] [place] [address] [address] Barrett, [facility] 500 [place] [address] [place] [address] [address] [facility] [address] [place] [address] documented as of this encounter Goals Goal Patient Goal Type Associated Problems Recent Progress Patient-Stated? Author Blood Pressure < 140/90 Blood Pressure 102/69(2022 11:30 AM CASE MANAGER) No Melinda Newsome Quit smoking / using tobacco Lifestyle No Melinda Newsome documented as of this encounter Visit Diagnoses Not on filedocumented in this encounter Care Teams Supply Chain Specialist Relationship Specialty Start Date End Date Sveta Rai MD PCP - General Internal Medicine 02/22/13 12/07/16 Stevenson Almanza MD Neurology 08/16/14 documented as of this encounter
--- OUTSIDE RECORDS SUMMARY | 2024-09-18 09:34 | XMS_ITS | Encounter Summary ---
Author Organization [facility] Address [address] [facility] [place] [address] Care Team Providers Care Rn Visiting Name Role Phone Sveta Rai MD Primary Care Provider Stevenson Almanza MD Unavailable [phone] Reason for Visit * Reason Onset Date Comments Order 12/17/2015 Encounter Details Date Type Department Care Team (Late st Contact Info) Description 12/17/2015 Telephone [facility] Medical [facility] - Family Medicine [address] [place] [address] Sveta Rai MD [address] [place] [address] DR NOONAN [address] [place] [id number] Order Social History Tobacco Use Types Packs/Day [...] encounter Miscellaneous Notes * Telephone Encounter - Sveta Rai MD - 12/17/2015 4:42 PM CDT Home sleep study will be fine. * Telephone Encounter - Edith Cohn - 12/17/2015 1:18 PM CDT Would you like to do the peer to peer or order the home sleep study ? * Telephone Encounter - Wen Ramírez - 12/17/2015 9:32 AM CDT Sasha from the sleep lab called and stated that pt's insurance is denying the In Lab Sleep Study .Dr. Flores can do a [id number] with [facility]. Please call [phone] and use the following reference number: [id number]. The other option is for pt to do a Home Sleep Study. Pt doesn't have MS and her BMI is high. Please contact Sasha and advise on the outcome. documented in this encounter Plan of Treatment Upcoming Encounters Date Type Department Care Team (Late st Contact Info) Description 09/27/2024 2:20 PM FINANCIAL RESERVE CLERK Office Visit [facility] Health Neurosciences [address] [place] [address] [place] [address] [facility] JUAN ALBERTO [address] [place] [address] 09/28/2024 1:00 PM FINANCIAL RESERVE CLERK Office [place] [address] [facility] Juan Alberto Barrett [address] [place] [address] [place] [address] [address] JUAN ALBERTO [address] [place] [address] documented as of this encounter Goals Goal Patient Goal Type Associated Problems Recent Progress Patient-Stated? Author Blood Pressure < 140/90 Blood Pressure 102/69(2022 11:30 AM FINANCIAL RESERVE CLERK) No Melinda Newsome Quit smoking / using tobacco Lifestyle No Melinda Newsome documented as of this encounter Visit Diagnoses Not on filedocumented in this encounter Care Teams Rn Visiting Relationship Specialty Start Date End Date Sveta Rai MD PCP - General Internal Medicine 02/22/13 12/07/16 Stevenson Almanza MD Neurology 08/16/14 documented as of this encounter
--- OUTSIDE RECORDS SUMMARY | 2024-09-18 09:34 | XMS_ITS | Encounter Summary ---
Author Organization [facility] Address [address] [facility] [place] [address] Care Team Providers Care Coronary Clinical Specialist Name Role Phone Sveta Rai MD Primary Care Provider Stevenson Almanza MD Unavailable [phone] Reason for Visit * Reason Onset Date Comments MEDICATION REFILL 02/06/2016 Encounter Details Date Type Department Care Team (Late st Contact Info) Description 02/06/2016 Refill [facility] Medical [facility] - Family Medicine [address] [place] [address] [phone] Sveta Rai MD [address] [place] [address] DR NOONAN [address] [place] [address] MEDICATION REFILL Social History Tobacco Use Types [...] Encounter - Rekha Newsome MA - 02/07/2016 1:37 PM CDT Lucretia Rodriguez Requested Prescriptions Pending Prescriptions Disp Refills ??? levothyroxine (SYNTHROID) 88 MCG tablet 30 Tab 3 Sig: Take 1 Tab by mouth daily before breakfast Allergies Allergen Reactions ??? Sulfa Drugs ??? Latex Last refill- 10/19/15 with 3 refills Last OV-11/23/15 Scheduled-02/26/16 documented in this encounter Plan of Treatment Upcoming Encounters Date Type Department Care Team (Late st Contact Info) Description 09/27/2024 2:20 PM DRILL GRINDER Office Visit [facility] Neurosciences [address] [facility] [address] [place] [address] [place] [address] [facility] [address] [place] [phone] 09/28/2024 1:00 PM DRILL GRINDER Office Visit [facility] [place] [address] Michele Barrett, [place] [address] [place] [address] [place] [address] MICHELE BARRETT [facility] [address] [place] [address] documented as of this encounter Goals Goal Patient Goal Type Associated Problems Recent Progress Patient-Stated? Author Blood Pressure < 140/90 Blood Pressure 102/69(2022 11:30 AM DRILL GRINDER) No Melinda Newsome Quit smoking / using tobacco Lifestyle No Melinda Newsome documented as of this encounter Visit Diagnoses Not on filedocumented in this encounter Care Teams Coronary Clinical Specialist Relationship Specialty Start Date End Date Sveta Rai MD PCP - General Internal Medicine 02/22/13 12/07/16 Stevenson Almanza MD Neurology 08/16/14 documented as of this encounter
--- OUTSIDE RECORDS SUMMARY | 2024-09-18 09:34 | XMS_ITS | Encounter Summary ---
Author Organization [facility] Address [address] [facility] [place] [address] Care Team Providers Care Assistant Professor Of German Name Role Phone Sveta Rai MD Primary Care Provider [phone] Stevenson Almanza MD Unavailable [phone] Dequan Baxter MD Unavailable [phone] Reason for Visit * Reason Onset Date Comments MEDICATION REFILL 03/21/2016 Encounter Details Date Type Department Care Team (Late st Contact Info) Description 03/21/2016 Refill [facility] Medical [facility] - Family Medicine [address] [place] [address] Sveta Rai MD [address] [place] [address] [address] MEDICATION REFILL Social History Tobacco [...] st Contact Info) Description 09/27/2024 2:20 PM GLASSWORKER Office Visit [facility] Neurosciences [address] [facility] [address] [place] [address] [place] [address] [facility] JUAN ALBERTO [address] [place] [address] 09/28/2024 1:00 PM GLASSWORKER Office Visit [facility] Group - [address] Michele Barrett, Juan Alberto [address] [place] [address] [place] [address] [address] [facility] [address] [place] [address] documented as of this encounter Goals Goal Patient Goal Type Associated Problems Recent Progress Patient-Stated? Author Blood Pressure < 140/90 Blood Pressure 102/69(2022 11:30 AM GLASSWORKER) No Melinda Newsome Quit smoking / using tobacco Lifestyle No Melinda Newsome documented as of this encounter Visit Diagnoses Not on filedocumented in this encounter Care Teams Assistant Professor Of German Relationship Specialty Start Date End Date Sveta Rai MD PCP - General Internal Medicine 02/22/13 12/07/16 Stevenson Almanza MD Neurology 08/16/14 [place] [address] [address] Pulmonary Disease 02/14/16 documented as of this encounter
--- OUTSIDE RECORDS SUMMARY | 2024-09-18 09:34 | XMS_ITS | Encounter Summary ---
Author Organization [facility] Address [address] [facility] [place] [address] Care Team Providers Care Oceanologist Name Role Phone Sveta Rai MD Primary Care Provider [phone] Stevenson Almanza MD Unavailable [phone] Reason for Visit * Reason Comments Refill Request Encounter Details Date Type Department Care Team (Late st Contact Info) Description 12/13/2015 Refill [facility] Medical [facility] - Family Medicine [address] [place] [address] Sveta Rai MD [address] [place] [address] DR NOON[address] [place] [address] Refill Request Social History Tobacco Use Types [...] encounter Miscellaneous Notes * Telephone Encounter - LyndhurstEdith montgomery - 12/13/2015 8:47 AM CDT Last Refill: 11/20/15 Last OV: 11/23/15 Upcoming OV: 02/26/16 documented in this encounter Plan of Treatment Upcoming Encounters Date Type Department Care Team (Late st Contact Info) Description 09/27/2024 2:20 PM SUPERVISOR COOPERAGE SHOP Office Visit [facility] Neurosciences [address] [address] [place] [address] [facility] SARAN [address] [place] [phone] 09/28/2024 1:00 PM SUPERVISOR COOPERAGE SHOP Office Visit [facility] - [address] Michele Barrett, [address] [address] [place] [address] [facility] [address] [address] documented as of this encounter Goals Goal Patient Goal Type Associated Problems Recent Progress Patient-Stated? Author Blood Pressure < 140/90 Blood Pressure 102/69(2022 11:30 AM SUPERVISOR COOPERAGE SHOP) No Melinda Newsome Quit smoking / using tobacco Lifestyle No Melinda Newsome documented as of this encounter Visit Diagnoses Not on filedocumented in this encounter Care Teams Oceanologist Relationship Specialty Start Date End Date Sveta Rai MD PCP - General Internal Medicine 02/22/13 12/07/16 Stevenson Almanza MD Neurology 08/16/14 documented as of this encounter
--- OUTSIDE RECORDS SUMMARY | 2024-09-18 09:34 | XMS_ITS | Encounter Summary ---
Author Organization [facility] Address [address] [facility] [place] [address] Care Team Providers Care Ribbon Weaver Name Role Phone Sveta Rai MD Primary Care Provider Stevenson Almanza MD Unavailable [phone] Reason for Referral * Sleep (Routine) - Closed Specialty Diagnoses / Procedures Referred By Contac t Referred To Contact Sleep Center Diagnoses Snoring Procedures HOME SLEEP STUDY Sveta Rai MD [address] [place] [address] [address] [place] [address] [facility] Home Sleep Study [address] [place] [address] Referral ID Status Reason Start Date Expiration Date Visits Re quested Visits Authorized [id number] Closed 12/21/2015 06/18/2016 1 1 Reason for Visit * Reason Onset Date Comments Order 12/20/2015 Encounter Details Date Type Department Care Team (Late st Contact Info) Description 12/20/2015 Telephone [facility] - Family Medicine [address] [facility] [address] [place] [address] Sveta Rai MD [address] [place] [address] [address]ON[address] [place] [address] Order Social History Tobacco Use Types [...] * Telephone Encounter - Edith Cohn - 12/21/2015 1:24 PM CDT Home sleep study ordered, and waiting for physicians signature. * Telephone Encounter - Young Rosales - 12/20/2015 2:47 PM CDT Sasha called from [facility] Sleep Study lab. She is requesting a order for the in home sleep study SLE15. Please advise. documented in this encounter Plan of Treatment Upcoming Encounters Date Type Department Care Team (Late st Contact Info) Description 09/27/2024 2:20 PM RECORD SEARCHER Office Visit [facility] Health Neurosciences [address] [facility] [address] [place] [address] [place] [address] [facility] JUAN ALBERTO [address] [place] [address] 09/28/2024 1:00 PM RECORD SEARCHER Office Visit [facility] [place] [address] [place] [address] [place] [address] DEPAUN[address] MITCHELL UJAN AL[address]ERTO [address] [place] [address] documented as of this encounter Goals Goal Patient Goal Type Associated Problems Recent Progress Patient-Stated? Author Blood Pressure < 140/90 Blood Pressure 102/69(2022 11:30 AM RECORD SEARCHER) No Melinda Newsome Quit smoking / using tobacco Lifestyle No Melinda Newsome documented as of this encounter Results * HOME SLEEP STUDY (02/07/2016 6:50 AM CDT) Dequan Marina MD - 02/07/2016 6:50 AM CDT Dequan Baxter MD ? 02/07/2016 ??6:50 AM [facility] ? Home Sleep Study Name: ??Lucretia Rodriguez [...] for follow up. Dequan Baxter M.D. Diplomat [place] Board of Sleep Medicine (ABSM) Diplomat Pulmonary , Critical Care and Sleep Medicine (ABIM) Sveta Gross MD [facility] ORDERA BLES documented in this encounter Visit Diagnoses Diagnosis Snoring- Primary Other dyspnea and respiratory abnormality Snoring Other dyspnea and respiratory abnormality documented in this encounter Care Teams Ribbon Weaver Relationship Specialty Start Date End Date Sveta Rai MD PCP - General Internal Medicine 02/22/13 12/07/16 Stevenson Almanza MD Neurology 08/16/14 documented as of this encounter
--- OUTSIDE RECORDS SUMMARY | 2024-09-18 09:34 | XMS_ITS | Encounter Summary ---
Author Organization [facility] Address [address] [facility] [place] [address] Care Team Providers Care Health Science Specialist Name Role Phone Sveta Rai MD Primary Care Provider Stevenson Almanza MD Unavailable [phone] Dequan Baxter MD Unavailable [phone] Reason for Visit * Reason Comments Refill Request Encounter Details Date Type Department Care Team (Late Contact Info) Description 03/05/2016 Refill [facility] Medical [facility] - Family Medicine [address] [place] [address] Sveta Rai MD [address] [place] [address] DR [address] [place] [address] Refill Request Social History Tobacco Use Types [...] * Telephone Encounter - Edith Cohn - 03/05/2016 11:41 AM CDT Last Refill: 02/10/16 Last OV: 02/26/16 Upcoming OV: 05/27/16 documented in this encounter Plan of Treatment Upcoming Encounters Date Type Department Care Team (Late st Contact Info) Description 09/27/2024 2:20 PM STEAM PLANT RECORDS CLERK Office Visit [facility] Neurosciences [address] [facility] [address] [place] [address] [place] [address] [facility] SARAN [address] [place] [phone] 09/28/2024 1:00 PM STEAM PLANT RECORDS CLERK Office Visit [facility] - [address] DePa[address] [address] [place] [address] [address] [facility] [address] [place] [address] documented as of this encounter Goals Goal Patient Goal Type Associated Problems Recent Progress Patient-Stated? Author Blood Pressure < 140/90 Blood Pressure 102/69(2022 11:30 AM STEAM PLANT RECORDS CLERK) No Melinda Newsome Quit smoking / using tobacco Lifestyle No Melinda Newsome documented as of this encounter Visit Diagnoses Not on filedocumented in this encounter Care Teams Health Science Specialist Relationship Specialty Start Date End Date Sveta Rai MD PCP - General Internal Medicine 02/22/13 12/07/16 Stevenson Almanza MD Neurology 08/16/14 [place] [address] [place] [address] Pulmonary Disease 02/14/16 documented as of this encounter
--- OUTSIDE RECORDS SUMMARY | 2024-09-18 09:34 | XMS_ITS | Encounter Summary ---
Author Organization [facility] Address [address] [facility] [place] [address] Care Team Providers Care Brazer Assembler Name Role Phone Sveta Rai MD Primary Care Provider Stevenson Almanza MD Unavailable [phone] Encounter Details Date Type Department Care Team (Latest Contact Info) Description 01/15/2016 12:10 PM CDT - 01/15/2016 11:59 PM CDT Hospital Encounter [facility] Imaging Services - Radiology [id number] [place] [address] Sevta Rai MD [address] [place] [address] DR NOONAN [address] [place] [address] Discharge Disposition: Home or Self Care Social [...] 21 Cap 0 01/15/2016 02/14/2016 blood glucose (ONETOUCH TEST STRIPS) test strip [...] PO) Take by mouth once daily 12/31/2017 Weston-3 Fatty Acids (FISH OIL) 1000 MG capsule [...] as needed for Insomnia 30 Tab 0 12/15/2015 01/17/2016 documented as of this encounter Progress Notes * Edith Cohn - 01/15/2016 3:58 PM CDTQuick Note: Left detailed message with xray results.(okay per HIPPA) * Sveta Rai MD - 01/15/2016 12:42 PM CDTQuick Note: Clear chest x-ray. documented in this encounter Plan of Treatment Upcoming Encounters Date Type Department Care Team (Late st Contact Info) Description 09/27/2024 2:20 PM PAINTING CONTRACTOR Office Visit [facility] Neurosciences [address] [facility] [address] [place] [address] [place] [address] [facility] SARAN [address] [place] [address] 09/28/2024 1:00 PM PAINTING CONTRACTOR Office Visit [facility] [place] [address] DePauping Barrett, [facility] [address] [place] [address] [place] [address] BL[address] BARRETT [facility] [address] [place] [address] documented as of this encounter Goals Goal Patient Goal Type Associated Problems Recent Progress Patient-Stated? Author Blood Pressure < 140/90 Blood Pressure 102/69(2022 11:30 AM PAINTING CONTRACTOR) No Melinda Newsome Quit smoking / using tobacco Lifestyle No Melinda Newsome documented as of this encounter Procedures Procedure Name Priority Date/Time Associated Diagnosis Comments XR CHEST 2VW Routine 01/15/2016 12:31 PM CDT Cough Acute bronchitis, unspecified organism documented in this encounter Results * XR CHEST PA [...] documented in this encounter Visit Diagnoses Diagnosis Cough Acute bronchitis, unspecified organism documented in this encounter Care Teams Brazer Assembler Relationship Specialty Start Date End Date Sveta Rai MD PCP - General Internal Medicine 02/22/13 12/07/16 Stevenson Almanza MD Neurology 08/16/14 documented as of this encounter
--- OUTSIDE RECORDS SUMMARY | 2024-09-18 09:35 | XMS_ITS | Encounter Summary ---
Author Organization [facility] Address [address] [facility] [place] [address] Care Team Providers Care Club Room Attendant Name Role Phone Sveta Rai MD Primary Care Provider Stevenson Almanza MD Unavailable [phone] Reason for Visit * Reason Comments Pain Hand Pt states her right hand hurt. It started 1 month ago. Pt states that she may hafve arthritis. Encounter Details Date Type Department Care Team (Latest Contact Info) Description 02/22/2015 1:30 PM CDT Office Visit [facility] - Family Medicine [id number] [place] [address] [address] [place] [address] Chitra Carranza, CAMPER ASSEMBLER-INTERNAL CARVER [address] [facility] [place] [address] [place] [address] Pain of right hand (Primary Dx); Primary osteoarthritis of left hand; Numbness and tingling in right hand Social History Tobacco Use Types Packs/Day Years Used Date Smoking Tobacco: Every Day Cigarettes 0.5 30 Started: 08/18/2013 Smokeless Tobacco: Never Alcohol Use Standard Drinks/Week Comments Yes 0 (1 standard drink = 0.6 oz pur e alcohol) Rarely Sex and Gender Information Value Date Recorded Sex Assigned at Female 12/01/2020 7:48 AM CDT Gender Identity Female 12/01/2020 7:48 AM CDT Sexual Orientation Straight 12/01/2020 7 :48 AM CDT documented as of this encounter Last Filed Vital Signs Vital Sign Reading Time Taken Comments Blood Pressure 122/74 02/22/2015 1:37 PM CDT Pulse 70 02/22/2015 1:37 PM CDT Temperature - - Respiratory Rate 16 02/22/2015 1:37 PM CDT Oxygen Saturation - - Inhaled Oxygen Concentration - - Weight 88.7 kg (195 lb 9.6 oz) 02/22/2015 1:37 P M CDT Height 162.6 cm (5' 4 ) 02/22/2015 1:37 PM CDT Body Mass Index 33.57 02/22/2015 1:37 PM CDT documented in this encounter Functional [...] * Patient Instructions* Chitra Carranza APRN-CNP - 02/22/2015 1:49 PM CDT Try the meloxicam daily with food. Do not take ibuprofen or aleve with it. Can supplement with tylenol. Can soak hands in epsom salt warm water soaks as needed. To Dr. Jarvis for the carpal tunnel. We are checking xrays and will call with results. documented in this encounter Progress Notes * Chitra Carranza APRN-CNP - 02/22/2015 1:54 PM CDT SUBJECTIVE: Lucretia Rodriguez is a 49 y.o. female here for: Chief Complaint Patient presents with ??? Pain Hand Pt states her right hand hurt. It started 1 month ago. Pt states that she may hafve arthritis. Past Medical History Diagnosis Date ??? Heart attack 2010 ??? HTN (hypertension) ??? Hyperlipemia ??? Multiple sclerosis 2006 ??? H/O heart artery stent 2010 [id number] LAD( ) caden ??? H/O laparoscopic adjustable gastric banding 2009 ??? S/P tonsillectomy ??? Migraine ??? Hypothyroid ??? Depressive disorder, not elsewhere classified ??? Generalized anxiety disorder ??? Tension headache ??? High blood pressure ??? Heart attack ??? Stomach ulcer ??? Migraine ??? High cholesterol ??? Anemia ??? Thyroid disease HPI: Right hand pain, worsening over the past month. 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 Review of systems negative except as noted in the HPI Family and social history on file and reviewed. Current Outpatient Prescriptions on File Prior to Visit Medication Sig Dispense Refill ??? atorvastatin (LIPITOR) 20 MG tablet TAKE 1 TABLET BY MOUTH EVERY NIGHT AT BEDTIME 30 Tab 2 ??? lisinopril (PRINIVIL; ZESTRIL) 40 MG tablet TAKE ONE TABLET BY MOUTH ONCE DAILY 30 Tab 3 ??? atorvastatin (LIPITOR) 20 MG tablet Take 1 Tab by mouth at bedtime. 30 Tab 2 ??? citalopram (CELEXA) 20 MG tablet Take 1 Tab by mouth once daily. 30 Tab 0 ??? lisinopril (PRINIVIL; ZESTRIL) 40 MG tablet Take 1 Tab by mouth once daily. 30 Tab 3 ??? levothyroxine (SYNTHROID) 88 MCG tablet Take 1 Tab by mouth daily before breakfast. 30 Tab 5 ??? metoprolol tartrate IR (LOPRESSOR) 50 MG tablet Take 1 Tab by mouth 2 times daily. 60 Tab 3 ??? loratadine (CLARITIN) 10 MG tablet Take 10 mg by mouth once daily. ??? phentermine (IONAMINE) 15 MG capsule Take 15 mg by mouth once daily. ??? topiramate (TOPAMAX) 25 MG tablet Take 25 mg by mouth once daily. ??? nitroglycerin (NITROSTAT) 0.4 MG tablet Dissolve 1 Tab under the tongue every 5 minutes as needed for Angina. 100 Tab 3 ??? aspirin 325 MG tablet Take 325 mg by mouth once daily. ??? B Complex Vitamins (B-COMPLEX/B-12 PO) Take 1,000 mcg by mouth. ??? Cholecalciferol (VITAMIN D) 1000 UNIT capsule Take 2,000 Units by mouth once daily. No current facility-administered medications on file prior to visit. Allergies Allergen Reactions ??? Sulfa Drugs ??? Latex History Substance Use Topics ??? Smoking status: Current Every Day Smoker -- 0.50 packs/day for 30 years Types: Cigarettes Start date: 08/18/2013 ??? Smokeless tobacco: Never Used ??? Alcohol Use: Yes Comment: Rarely . OBJECTIVE: Vitals: 02/22/15 1337 BP: 122/74 Pulse: 70 Resp: 16 Weight: 88.724 kg (195 lb 9.6 oz) Body mass index is 33.56 kg/(m^2). General appearance - alert, well appearing, [...] S2, no murmurs, rubs, clicks or gallops, no edema, peripheral pulses normal, no carotid bruits. Abdomen - bowel sounds present, soft, nontender, nondistended, no masses or hepatosplenomegaly Extremities - Steady gait, full range of motion, no clubbing nor cyanosis. Right hand positive phalen test. Right hand pain in the DIP joint of the thumb, positive grind test with pain at the base ofthe thumb, pain palmar aspect of hand across all carpals at the PIP junctions. Getting anaya andherbreden nodes. Skin - warm, dry, no rashes in visible areas. ASSESSMENT Encounter Diagnoses Name Primary? Pain of right hand Yes ??? Primary osteoarthritis of left hand ??? Numbness and tingling in right hand Discussed patient with Dr. Flores and her plan of care is as follows: PLAN: Orders Placed This Encounter ??? XR HAND 3+ VW [facility], outpatient services. Standing Status: Future Number of Occurrences: Standing Expiration Date: 02/22/2016 Order Specific Question: Exam to be performed? Answer: Per Radiologist protocol ??? AMB REFERRAL TO HAND SURGEON Standing Status: Future Number of Occurrences: Standing Expiration Date: 02/23/2016 Referral Type: Evaluate Referral Reason: Specialty Services Required Referred to Provider: Patricia Jarvis MD Number of Visits Requested: 5 ??? meloxicam (MOBIC) 15 MG tablet Sig: Take 1 Tab by mouth once daily Dispense: 30 Tab Refill: 3 Try the meloxicam daily with food. Do not take ibuprofen or aleve with it. Can supplement with tylenol. Can soak hands in epsom salt warm water soaks as needed. To Dr. Jarvis for the carpal tunnel. We are checking xrays and will call with results. Further recommendations pending the above results and patient's clinical course. Follow-up visit 1 week prn. The patient indicates understanding of these issues and agrees with the plan. * Kelsy Pelaez - 02/22/2015 1:38 PM CDT Patient came into the office today for right hand pain. BP 122/74 mmHg Pulse 70 Resp 16 Wt 88.724 kg (195 lb 9.6 oz) BMI 33.56 kg/m2 documented in this encounter Plan of Treatment Upcoming Encounters Date Type Department Care Team (Late st Contact Info) Description 09/27/2024 2:20 PM UNIT TECHNICIAN Office Visit [facility] [address] [address] [place] [address] [facility] [address] [place] [address] 09/28/2024 1:00 PM UNIT TECHNICIAN Office Visit [facility] - [address] [facility] , [facility] [address] [place] [address] [place] [address] DE[address] MITCHELL [facility] [address] [place] [address] documented as of this encounter Goals Goal Patient Goal Type Associated Problems Recent Progress Patient-Stated? Author Blood Pressure < 140/90 Blood Pressure 102/69(2022 11:30 AM UNIT TECHNICIAN) No Melinda Newsome Quit smoking / using tobacco Lifestyle No Melinda Newsome documented as of this encounter Results * XR HAND 3+ VW RIGHT (02/22/2015 3:07 PM CDT) Anatomical Region Laterality Modality Wrist / Hand Radiographic Louann ging 02/22/2015 3:31 PM CDT Impressions 02/22/2015 3:32 PM CDT Unremarkable radiographic examination of right hand This examination was transcribed using the Virdia voice recognition system without human blasting contract man. ??In an effort to expedite patient care, this report has not been adjusted for typographical, grammatical, and syntax by a trained medical translator. Narrative 02/22/2015 3:32 PM CDT Right hand [...] hand This examination was transcribed using the [employer]irdia voice recognition system without human blasting contract man. In an effort to expedite patient care, this report has not been adjusted for typographical, grammatical, and syntax by a trained medical translator. Chitra Carranza CAMPER ASSEMBLER-INTERNAL CARVER DIAGNOSTIC IMAG ING ORDERABLES documented in this encounter Visit Diagnoses Diagnosis Pain of right hand- Primary Pain in limb Primary osteoarthritis of left hand Primary localized osteoarthrosis, hand Numbness and tingling in right hand Disturbance of skin sensation Pain of right hand Pain in limb documented in this encounter Care Teams Club Room Attendant Relationship Specialty Start Date End Date Sveta Rai MD PCP - General Internal Medicine 02/22/13 12/07/16 Stevenson Almanza MD Neurology 08/16/14 documented as of this encounter
--- OUTSIDE RECORDS SUMMARY | 2024-09-18 09:35 | XMS_ITS | Encounter Summary ---
Author Organization [facility] Health Address [address] [facility] [place] [address] Care Team Providers Care Pulp Tester Name Role Phone Sveta Rai MD Primary Care Provider Stevenson Almanza MD Unavailable [phone] Reason for Visit * Radiology Services (Routine) - Closed Specialty Diagnoses / Procedures Referred By Contac t Referred To Contact MRI Diagnoses Multiple sclerosis exacerbation (HCC) Procedures MRI BRAIN [place] [id number] [address] [facility] Mri [address] [place] [address] Referral ID Status Reason Start Date Expiration Date Visits Re quested Visits Authorized [id number] Closed 11/12/2015 12/27/2015 1 1 Encounter Details Date Type Department Care Team (Latest Contact Info) Description 11/13/2015 4:48 PM CARE MANAGEMENT COORDINATOR - 11/13/2015 11:59 PM CARE MANAGEMENT COORDINATOR Hospital Encounter [facility] Health [place] [id number] [place] [address] [place] [id number] [address] Discharge Disposition: Home or Self [...] mg by mouth 2 times daily 02/26/2016 aspirin 325 MG tablet Take 81 mg by mouth once daily 04/17/2020 atorvastatin (LIPITOR) 20 MG tabletIndications:Mixed hyperlipidemia Take 2 Tabs by mouth at bedtime 90 Tab 1 08/06/2015 02/07/2016 B Complex Vitamins (B-COMPLEX/B-12 PO) Take 1,000 mcg by mouth. 12/08/2016 citalopram (CELEXA) 40 MG tabletIndications:Major depressive disorder, recurrent episode, moderate (HCC) Take 1 Tab by mouth once daily 90 Tab 3 07/31/2015 08/10/2016 fluticasone propionate (FLONASE) 50 MCG/ACT nasal sprayIndications:Chronic allergic otitis media of left ear,Encounter for routine adult physical exam with abnormal findings [place] 2 Sprays into each nostril once daily 1 Bottle 3 07/31/2015 11/17/2015 gabapentin (NEURONTIN) 300 MG capsule Take 300 mg by mouth 2 times daily 02/26/2016 levothyroxine (SYNTHROID) 88 MCG tablet TAKE ONE TABLET BY MOUTH ONCE DAILY BEFORE BREAKFAST 30 Tab 3 10/19/2015 02/07/2016 lisinopril (PRINIVIL; ZESTRIL) 40 MG tabletIndications:Essenti al hypertension Take 1 Tab by mouth once daily 30 Tab 3 11/16/2015 03/05/2016 loratadine (CLARITIN) 10 MG tablet Take 10 mg by mouth once daily. 01/19/2020 meloxicam (MOBIC) 15 MG tablet TAKE ONE TABLET BY MOUTH ONCE DAILY 90 Tab 1 06/18/2015 12/13/2015 metoprolol tartrate (LOPRESSOR) 50 MG tablet TAKE ONE TABLET BY MOUTH TWICE A DAY 180 Tab 1 06/18/2015 12/13/2015 nitroglycerin (NITROSTAT) 0.4 MG tablet Dissolve 1 Tab under the tongue every 5 minutes as needed for Angina. 100 Tab 3 05/11/2014 02/26/2016 Nutritional Supplements (ESTROVEN PO) Take by mouth once daily 12/31/2017 [place]-3 Fatty Acids (FISH OIL) 1000 MG capsule Take 1 Cap by mouth once daily 12/31/2017 predniSONE (DELTASONE) 20 MG tablet Take 5 Tabs by mouth once daily for 5 days 100 Tab 0 11/12/2015 11/16/2015 zolpidem (AMBIEN) 5 MG tabletIndications:Other insomnia Take 1 Tab by mouth nightly as needed for Insomnia 30 Tab 0 11/16/2015 12/14/2015 documented as of this encounter Plan of Treatment Upcoming Encounters Date Type Department Care Team (Late st Contact Info) Description 09/27/2024 2:20 PM CARE MANAGEMENT COORDINATOR Office Visit [facility] Health Neurosciences [address] [facility] [address] [place] [address] [place] [address] [facility] [address] [place] [address] 09/28/2024 1:00 PM CARE MANAGEMENT COORDINATOR Office Visit [facility] [place] [address] Michele Barrett, [facility] [address] [place] [address] [place] [address] [address] [facility] [address] [place] [address] documented as of this encounter Goals Goal Patient Goal Type Associated Problems Recent Progress Patient-Stated? Author Blood Pressure < 140/90 Blood Pressure 102/69(2022 11:30 AM CARE MANAGEMENT COORDINATOR) No Melinda Newsome Quit smoking / using tobacco Lifestyle No Melinda Newsome documented as of this encounter Procedures Procedure Name Priority Date/Time Associated Diagnosis Comments MRI BRAIN WWO CONTRAST Routine 11/13/2015 6:32 PM CARE MANAGEMENT COORDINATOR Multiple sclerosis exacerbation (HCC) documented in this encounter Results * MRI BRAIN WITH AND WITHOUT CONTRAST (11/13/2015 6:32 PM CARE MANAGEMENT COORDINATOR) Anatomical Region Laterality Modality Head Magnetic Resonan ce 11/14/2015 7:58 AM CARE MANAGEMENT COORDINATOR Impressions 11/14/2015 9:37 AM CARE MANAGEMENT COORDINATOR T2-weighted sequences demonstrate multiple foci of abnormal high signal intensity in the supratentorial white matter bilaterally. Many of these demonstrate a morphology and distribution typical of demyelinating disease. There is no evidence of active demyelination at this time. Edited by Teresita Shea on 11/14/2015 8:45 AM Narrative 11/14/2015 9:37 AM CARE MANAGEMENT COORDINATOR MRI BRAIN WITH AND WITHOUT CONTRAST Indication: Bilateral leg heaviness and weakness. Technique: The following sequences were obtained: Axial diffusion, axial dual-echo T2, sagittal and axial T1 pre- and postgadolinium, coronal T1 postgadolinium, coronal and axial FLAIR. 20 cc Dotarem was administered for this examination. Findings: T2-weighted sequences demonstrate multiple round ??and ovoid foci of abnormal high signal intensity in the supratentorial white matter bilaterally, many in a periventricular distribution. Distribution and morphology of these lesions are typical of demyelinating disease. None are associated with enhancement following administration of gadolinium or with restricted diffusion to suggest the presence of active demyelination at this time. There are no areas of abnormal restricted diffusion. Ventricles and sulci are within normal limits in size. There is no intracranial hemorrhage, mass, or mass-effect. No abnormal extra-axial fluid collection is seen. The region of the pituitary gland, pineal gland, and foramen magnum are normal. Visualized cranial and facial soft tissues are unremarkable. Major arterial and dural venous flow-voids at the skull base are patent. Procedure Note Sasha Taylor MD - 03/09/2016 MRI BRAIN WITH AND WITHOUT CONTRAST Indication: Bilateral leg heaviness and weakness. Technique: The following sequences were obtained: Axial diffusion, axial dual-echo T2, sagittal and axial T1 pre- and postgadolinium, coronal T1 postgadolinium, coronal and axial FLAIR. 20 cc Dotarem was administered for this examination. Findings: T2-weighted sequences demonstrate multiple round and ovoid foci of abnormal high signal intensity in the supratentorial white matter bilaterally, many in a periventricular distribution. Distribution and morphology of these lesions are typical of demyelinating disease. None are associated with enhancement following administration of gadolinium or with restricted diffusion to suggest the presence of active demyelination at this time. There are no areas of abnormal restricted diffusion. Ventricles and sulci are within normal limits in size. There is no intracranial hemorrhage, mass, or mass-effect. No abnormal extra-axial fluid collection is seen. The region of the pituitary gland, pineal gland, and foramen magnum are normal. Visualized cranial and facial soft tissues are unremarkable. Major arterial and dural venous flow-voids at the skull base are patent. IMPRESSION T2-weighted sequences demonstrate multiple foci of abnormal high signal intensity in the supratentorial white matter bilaterally. Many of these demonstrate a morphology and distribution typical of demyelinating disease. There is no evidence of active demyelination at this time. Edited by Teresita Shea on 11/14/2015 8:45 AM Stevenson Almanza MD MR ORDERABLES documented in this encounter Visit Diagnoses Diagnosis Multiple sclerosis exacerbation (HCC) Multiple sclerosis documented in this encounter Administered Medications Inactive Administered Medications - up to 3 most recent administrations Medication Order MAR Action Action Date Dose Rate Site gadoterate meglumine (DOTAREM) injection Intravenous, CONTRAST ONCE, Starting on Thu11/13/15 at 1758, Until Thu11/14/15 at 0125 $ Given 11/13/2015 6:02 PM CARE MANAGEMENT COORDINATOR 20 mL documented in this encounter Care Teams Pulp Tester Relationship Specialty Start Date End Date Sveta Rai MD PCP - General Internal Medicine 02/22/13 12/07/16 Stevensno Almanza MD Neurology 08/16/14 documented as of this encounter
--- OUTSIDE RECORDS SUMMARY | 2024-09-18 09:35 | XMS_ITS | Encounter Summary ---
Author Organization [facility] Address [address] [facility] [place] [address] Care Team Providers Care Licensed Mortgage Loan Officer Name Role Phone Sveta Rai MD Primary Care Provider Stevenson Almanza MD Unavailable Reason for Referral * Radiology Services (Routine) - Closed Specialty Diagnoses / Procedures Referred By Contac t Referred To Contact MRI Diagnoses Multiple sclerosis exacerbation (HCC) Procedures MRI BRAIN WITH [place] [address] [address] [facility] Mri [address] [place] [address] Referral ID Status Reason Start Date Expiration Date Visits Re quested Visits Authorized [id number] Closed 11/12/2015 12/27/2015 1 1 LE PRODUCERS * Radiology Services (Routine) - Closed Specialty Diagnoses / Procedures Referred By Contac t Referred To Contact MRI Diagnoses Multiple sclerosis exacerbation (HCC) Procedures MRI SPINE CERVICAL WITH [place] [address] [address] [facility] M[facility] [address] [place] [address] Referral ID Status Reason Start Date Expiration Date Visits Re quested Visits Authorized [id number] Closed 11/12/2015 12/27/2015 1 1 LE PRODUCERS Reason for Visit * Reason Comments Multiple Sclerosis Follow-up Encounter Details Date Type Department Care Team (Latest Contact Info) Description 11/12/2015 9:00 AM CATTLE PRODUCERS Office Visit [facility] Neurosciences [address] [facility] [address] [place] [address] [place] [address] [facility] [address] [place] [address] Multiple sclerosis exacerbation (HCC) (Primary Dx); Other osteoarthritis of spine, cervical region Social History Tobacco Use Types Packs/Day Years [...] Sign Reading Time Taken Comments Blood Pressure 188/110 11/12/2015 9:19 AM CATTLE PRODUCERS Pulse 72 11/12/2015 9:19 AM CATTLE PRODUCERS Temperature - - Respiratory Rate 14 11/12/2015 9:19 AM CATTLE PRODUCERS Oxygen Saturation - - Inhaled Oxygen Concentration - - Weight 116.5 kg (256 lb 14.4 oz) 11/12/2015 9:19 AM CATTLE PRODUCERS Height 162.6 cm (5' 4 ) 11/12/2015 9:19 AM CATTLE PRODUCERS Body Mass Index 44.1 11/12/2015 9:19 AM CATTLE PRODUCERS documented in this encounter Functional Status Functional [...] Instructions * Patient Instructions* Yolanda Burch - 11/12/2015 9:51 AM CATTLE PRODUCERS Call physician if symptoms worsen or with any questions. Take Medications as prescribed. For descriptions of a variety of neurological conditions please visit: [email or web address] Please contact our office 48 hours after testing is complete for results. MRI BRAIN AND CERVICAL SPINE IS SCHEDULED AT [facility] ON 11/13/2015 @ 5:00 PM ARRIVING @ 4:40 PM REGISTER IN THE [facility] DO NOT WEAR ANY CLOTHES WITH METAL. DO NOT WEAR ANY JEWELRY. LE PRODUCERS documented in this encounter Progress Notes * Stevenson Almanza MD - 11/12/2015 9:39 AM CST CC: MS IH: Has been having heaviness ion legs for two weeks. Bladder is OK. No UTI. No change in vision other ange occasional blurring. No falling. No neck pain. No bear hug. No DMTs. No Lhermitte's Outpatient Prescriptions Marked as Taking for the 11/12/15 encounter (Office Visit) with Stevenson Almanza MD Medication Sig Dispense Refill ??? [place]-3 Fatty Acids (FISH OIL) 1000 MG capsule Take 1 Cap by mouth once daily ??? levothyroxine (SYNTHROID) 88 MCG tablet TAKE ONE TABLET BY MOUTH ONCE DAILY BEFORE BREAKFAST 30Tab 3 ??? zolpidem (AMBIEN) 5 MG tablet Take 1 Tab by mouth nightly as needed for Insomnia 30 Tab 0 ??? Nutritional Supplements (ESTROVEN PO) Take by mouth once daily ??? atorvastatin (LIPITOR) 20 MG tablet Take 2 Tabs by mouth at bedtime 90 Tab 1 ??? fluticasone propionate (FLONASE) 50 MCG/ACT nasal spray [place] 2 Sprays into each nostril once daily 1 Bottle 3 ??? citalopram (CELEXA) 40 MG tablet Take 1 Tab by mouth once daily 90 Tab 3 ??? meloxicam (MOBIC) 15 MG tablet TAKE ONE TABLET BY MOUTH ONCE DAILY 90 Tab 1 ??? metoprolol tartrate (LOPRESSOR) 50 MG tablet TAKE ONE TABLET BY MOUTH TWICE A DAY 180 Tab 1 ??? lisinopril (PRINIVIL; ZESTRIL) 40 MG tablet Take 1 Tab by mouth once daily. 30 Tab 3 ??? loratadine (CLARITIN) 10 [...] 5,000 Units by mouth once daily ROS: No leg spasms. No cramps. Occasional arthritis flair Exam: BP 188/110 mmHg Pulse 72 Resp 14 Wt 116.529 kg (256 lb 14.4 oz) BMI 44.08 kg/m2 Well appearing and well nourished Cognitive: Alert and oriented X 3. Attention concentration, fund of knowledge and recent and remotememory are intact. Central language function is normal without evidence of aphasia. Cranial nerves: II - Intact visual acuity. FFOV to confrontation. Fundi normal with normal optic nerves. No exudates or hemorrhages. III, IV, - EOMs intact without evidence of diplopia or nystagmus. GERALDO V - Motor and Sensory components intact. VII - Facial movement intact. VIII - Hearing intact. Normal Dc and Rinne IX, X - Palate midline and elevates normally. Intact gag. Uvula midline. XI - Shoulder shrug strong and symmetric. SCM 5/5 XII - Tongue protrudes in the midline without atrophy or fasciculations. Neck: ROM adequate. Carotids without bruits. Motor: Normal tone, power and bulk. Sensory: Intact to touch and vibration. Reflexes: Symmetric 1-2 at Biceps, Triceps, Brachioradialis, Knees and Ankles. No clonus Plantar reflexes are flexor bilaterally. Cerebellum: Intact FTN. Drift: Negative Gait: Normal station and gait. MRI from 2007 with cervical disc ASSESSMENT: MS attack vs cervical disc PLAN: MRIs Oral steroids Call 3 month follow up Urinalysis Labs documented in this encounter Plan of Treatment Upcoming Encounters Date Type Department Care Team (Late st Contact Info) Description 09/27/2024 2:20 PM CATTLE PRODUCERS Office Visit [facility] Neurosciences [address] [facility] [address] [place] [id number] [place] [address] [facility] [address] [place] [address] 09/28/2024 1:00 PM CATTLE PRODUCERS Office Visit [facility] [place] [address] [place] Barrett, [facility] [address] [place] [address] [place] [address] [address] [facility] [address] [place] [address] documented as of this encounter Goals Goal Patient Goal Type Associated Problems Recent Progress Patient-Stated? Author Blood Pressure < 140/90 Blood Pressure 102/69(2022 11:30 AM CATTLE PRODUCERS) No Melinda Newsome Quit smoking / using tobacco Lifestyle No Melinda Newsome documented as of this encounter Procedures Procedure Name Priority Date/Time Associated Diagnosis Comments URINALYSIS MICROSCOPIC ONLY REFLEXED Routine 11/12/2015 10:47 AM CATTLE PRODUCERS Multiple sclerosis exacerbation (HCC) URINALYSIS REFLEX TO MICROSCOPIC NO CULTURE Routine 11/12/2015 10:47 AM CATTLE PRODUCERS Multiple sclerosis exacerbation (HCC) CBC W AUTO DIFFERENTIAL Routine 11/12/2015 10:47 AM CATTLE PRODUCERS Multiple sclerosis exacerbation (HCC) COMPREHENSIVE METABOLIC PANEL Routine 11/12/2015 10:47 AM CATTLE PRODUCERS Multiple sclerosis exacerbation (HCC) documented in this encounter Results * MRI BRAIN WITH AND WITHOUT CONTRAST (11/13/2015 6:32 PM CATTLE PRODUCERS) Anatomical Region Laterality Modality Head Magnetic Resonan ce 11/14/2015 7:58 AM CATTLE PRODUCERS Impressions 11/14/2015 9:37 AM CATTLE PRODUCERS T2-weighted sequences demonstrate multiple foci of abnormal high signal intensity in the supratentorial white matter bilaterally. Many of these demonstrate a morphology and distribution typical of demyelinating disease. There is no evidence of active demyelination at this time. Edited by Teresita Shea on 11/14/2015 8:45 AM Narrative 11/14/2015 9:37 AM CATTLE PRODUCERS MRI BRAIN WITH AND WITHOUT CONTRAST Indication: [...] patent. Procedure Note Sasha Taylor MD - 11/14/2015 MRI BRAIN WITH AND WITHOUT CONTRAST Indication: [...] 8:45 AM Stevenson Almanza MD MR ORDERABLES * MRI SPINE CERVICAL WITH AND WITHOUT CONTRAST (11/13/2015 6:24 PM CATTLE PRODUCERS) Anatomical Region Laterality Modality Spine Magnetic Resonan ce 11/14/2015 8:04 AM CATTLE PRODUCERS Impressions 11/14/2015 8:40 AM CATTLE PRODUCERS No abnormal signal intensity is seen in the cervical spinal cord to suggest the presence of demyelination. Disc herniations are present from C3-4 through C6-7 but do not result in significant central canal stenosis. Edited by Teresita Shea on 11/14/2015 8:22 AM Narrative 11/14/2015 8:40 AM CATTLE PRODUCERS MRI CERVICAL SPINE Indication: Multiple sclerosis. Bilateral [...] REFLEXED (PO REF LAB) (11/12/2015 10:47 AM CATTLE PRODUCERS) WBC UA 0-5 0 - 5 /hpf [...] is not needed 11/12/2015 10:4 7 AM CATTLE PRODUCERS 11/12/2015 1:00 PM CATTLE PRODUCERS Narrative Resulting Agency Comment [facility] [address] ??[facility]ly [facility] [id number] Stevenson Almanza MD LAB - URINALYSIS OR DERABLES [facility] ACCOUNT BILL * (ABNORMAL) URINALYSIS ROUTINE AUTO (11/12/2015 10:47 AM CATTLE PRODUCERS) Specific [place] UA 1.026 1.005 - 1.030 [facility] ACCOUNT [...] URINARY BLADDER / Unknown 11/12/2015 10:47 AM CATTLE PRODUCERS 11/12/2015 1:00 PM CATTLE PRODUCERS Narrative Resulting Agency Comment [facility] [address] ??[facility]ly [facility] [phone] Stevenson Almanza MD LAB - URINALYSIS OR DERABLES [facility] ACCOUNT BILL * (ABNORMAL) COMPREHENSIVE METABOLIC PANEL (11/12/2015 10:47 AM CATTLE PRODUCERS) Pathologist [facility] Glucose 100 74 - 106 mg/dL [facility] ACCOUNT BILL BUN 19 7 - 21 mg/dL [facility] ACCOUNT BILL Creatinine 0.95 0.50 - 1.30 mg/dL [facility] ACCOUNT BILL eGFR by MDRD >60 >60 mL/min/1.7 3m2 [facility] ACCOUNT BILL eGFR by MDRD >60 >60 mL/min/1.7 3m2 [facility] ACCOUNT BILL Sodium 142 136 - 145 mmol/L [facility] ACCOUNT BILL Potassium 4.7 3.5 - 5.1 mmol/L [facility] ACCOUNT BILL Chloride 108(H) 98 - 107 mmol/L [facility] ACCOUNT BILL CO2 27 22 - 31 mmol/L [facility] ACCOUNT BILL Calcium 9.2 8.5 - 10.1 mg/dL [facility] ACCOUNT BILL Protein Total 7.3 6.4 - 8.2 gm/dL [facility] ACCOUNT BILL Albumin 3.9 3.4 - 5.0 gm/dL [facility] ACCOUNT BILL Bilirubin Total 0.6 0.2 - 1.0 mg/dL [facility] ACCOUNT BILL Alkaline Phosphatase 80 38 - 126 U/L [facility] ACCOUNT BILL AST 23 5 - 40 U/L [facility] ACCOUNT BILL ALT 34 12 - 78 U/L [facility] ACCOUNT BILL Blood specimen (specimen) BLOOD SPECIMEN / Unknown 11/12/2015 10:47 AM CATTLE PRODUCERS 11/12/2015 1:19 PM CATTLE PRODUCERS Narrative Resulting Agency Comment [facility] [address] [address] ??[place] [id number] Stevenson Almanza MD LAB - CHEMISTRY ORD ERABLES [facility] ACCOUNT BILL * (ABNORMAL) CBC W AUTO DIFFERENTIAL (11/12/2015 10:47 AM CATTLE PRODUCERS) WBC 7.7 4.4 - 10.7 x10E9/L [facility] ACCOUNT BILL RBC 5.12 3.80 - 5.20 x10E12/L [facility] ACCOUNT BILL Hemoglobin 14.2 12.0 - 15.6 gm/dL [facility] ACCOUNT BILL Hematocrit 44.8 35.9 - 45.5 % [facility] ACCOUNT BILL MCV 87.5 80.7 - 98.3 fL [facility] ACCOUNT BILL MCH 27.7 26.7 - 34.0 pg [facility] ACCOUNT BILL MCHC 31.7 30.8 - 35.9 gm/dL [facility] ACCOUNT BILL RDW 15.2(H) 12.1 - 14.9 % [facility] ACCOUNT BILL Platelet Count 214 153 - 416 x10E9/L [facility] ACCOUNT BILL Comment:MPV FL BLOOD (SSM) 1 2.1 fl 9.4-12.9 Granulocytes % 54.3 44.0 - 73.0 % [facility] ACCOUNT BILL Lymphocytes % 34.8 20.0 - 43.0 % [facility] ACCOUNT BILL Monocytes % 6.2 5.0 - 13.0 % [facility] ACCOUNT BILL Eosinophils % 3.0 0.0 - 6.0 % [facility] ACCOUNT BILL Basophils % 1.3 0.0 - 2.0 % [facility] ACCOUNT BILL Granulocytes Absolute 4.18 2.01 - 7.14 x10E9/L [facility] ACCOUNT BILL Lymphocytes Absolute 2.68 1.07 - 3.94 x10E9/L [facility] ACCOUNT BILL Monocytes Absolute 0.48 0.26 - 1.07 x10E9/L [facility] ACCOUNT BILL Eosinophils Absolute 0.23 0 - 0.47 x10E9/L [facility] ACCOUNT BILL Basophils Absolute 0.10(H) 0 - 0.08 x10E9/L [facility] ACCOUNT BILL Immature Granulocytes 0.4 0 - 1 % [facility] ACCOUNT BILL Immature Granulocytes Absolute 0.03 0.00 - 0.06 x10E9/L [facility] ACCOUNT BILL nRBC 0 /100 WBC [facility] ACCOUNT BILL Blood specimen (specimen) BLOOD SPECIMEN / Unknown 11/12/2015 10:47 AM CATTLE PRODUCERS 11/12/2015 1:20 PM CATTLE PRODUCERS Narrative Resulting Agency Comment [facility] [address] [facility] [address] [phone] Stevenson Almanza MD LAB - HEMATOLOGY OR DERABLES [facility] ACCOUNT BILL documented in this encounter Visit Diagnoses Diagnosis Multiple sclerosis exacerbation (HCC)- Primary Multiple sclerosis Other osteoarthritis of spine, cervical region Multiple sclerosis exacerbation (HCC) Multiple sclerosis Multiple sclerosis exacerbation (HCC) Multiple sclerosis documented in this encounter Care Teams Licensed Mortgage Loan Officer Relationship Specialty Start Date End Date Sveta Rai MD PCP - General Internal Medicine 02/22/13 12/07/16 Stevenson Almanza MD Neurology 08/16/14 documented as of this encounter
--- OUTSIDE RECORDS SUMMARY | 2024-09-18 09:35 | XMS_ITS | Encounter Summary ---
Author Organization [facility] Address [address] [facility] [place] [address] Care Team Providers Care Harvest Manager Name Role Phone Sveta Rai MD Primary Care Provider [phone] Stevenson Almanza MD Unavailable [phone] Reason for Visit * Auth/Cert - Closed Specialty Diagnoses / Procedures Referred By Contac t Referred To Contact Procedures COLONOSCOPY Referral ID Status Reason Start Date Expiration Date Visits Re quested Visits Authorized [id number] Closed 1 1 Encounter Details Date Type Department Care Team (Latest Contact Info) Description 10/23/2014 11:35 AM WELDER RAILCAR MECHANIC - 10/23/2014 1:53 PM WELDER RAILCAR MECHANIC Hospital Encounter Critical access hospital - Endoscopy Services [address] [place] [address] [place] [address] [facility] [address] [address] Surgery General Discharge Disposition: Home or [...] Sign Reading Time Taken Comments Blood Pressure 96/63 10/23/2014 1:30 PM WELDER RAILCAR MECHANIC Pulse 68 10/23/2014 1:30 PM WELDER RAILCAR MECHANIC Temperature 36.9 ??C (98.4 ??F) 10/23/2014 1:20 PM CS T Respiratory Rate 15 10/23/2014 1:30 PM WELDER RAILCAR MECHANIC Oxygen Saturation 97% 10/23/2014 1:30 PM WELDER RAILCAR MECHANIC Inhaled Oxygen Concentration - - Weight 89.8 kg (198 lb) 10/23/2014 12:04 PM WELDER RAILCAR MECHANIC Height 162.6 cm (5' 4 ) 10/23/2014 12:04 PM WELDER RAILCAR MECHANIC Body Mass Index 33.99 10/23/2014 12:04 PM WELDER RAILCAR MECHANIC documented in this encounter Functional Status Functional [...] 5 (five) capsules by mouth once daily aspirin 325 MG tablet Take 81 mg by mouth once daily 04/17/2020 atorvastatin (LIPITOR) 20 MG tablet Take 1 Tab by mouth at bedtime. 30 Tab 5 05/11/2014 11/20/2014 B Complex Vitamins (B-COMPLEX/B-12 PO) Take 1,000 mcg by mouth. 12/08/2016 citalopram (CELEXA) 20 MG tablet TAKE ONE TABLET BY MOUTH ONCE DAILY 30 Tab 0 09/03/2014 01/23/2015 levothyroxine (SYNTHROID) 88 MCG tablet Take 1 Tab by mouth daily before breakfast. 30 Tab 5 09/04/2014 01/23/2015 lisinopril (PRINIVIL; ZESTRIL) 40 MG tablet Take 1 Tab by mouth once daily. 30 Tab 3 10/19/2014 01/23/2015 loratadine (CLARITIN) 10 MG tablet Take 10 mg by mouth once daily. 01/19/2020 metoprolol tartrate IR (LOPRESSOR) 50 MG tabletIndications:HTN (hypertension) Take 1 Tab by mouth 2 times daily. 60 Tab 3 10/19/2014 01/23/2015 nitroglycerin (NITROSTAT) 0.4 MG tablet Dissolve 1 Tab under the tongue every 5 minutes as needed for Angina. 100 Tab 3 05/11/2014 02/26/2016 phentermine (IONAMINE) 15 MG capsule Take 15 mg by mouth once daily. 06/27/2015 topiramate (TOPAMAX) 25 MG tablet Take 25 mg by mouth once daily. 06/27/2015 documented as of this encounter H&P Notes * Mark Rose MD - 10/23/2014 12:46 PM CST ENDOSCOPY PRE-PROCEDURE MEDICAL HISTORY & PHYSICAL Lucretia Nehemiah Rodriguez 49 y.o. female BP 127/75 Pulse 69 Temp(Src) 98.5 ??F Resp 18 Wt 198 lb (89.812 kg) BMI 33.97 kg/m2 History: Past Medical History Diagnosis Date ??? Heart attack 2010 ??? HTN (hypertension) ??? Hyperlipemia ??? Multiple sclerosis 2005 ??? H/O heart artery stent 2010 [id number] LAD( ) nir ??? H/O laparoscopic adjustable gastric banding 2009 ??? S/P tonsillectomy ??? Migraine ??? Hypothyroid ??? Depressive disorder, not elsewhere classified ??? Generalized anxiety disorder ??? Tension headache ??? High blood pressure ??? Heart attack ??? Stomach ulcer ??? Migraine ??? High cholesterol ??? Anemia ??? Thyroid disease Allergies Allergen Reactions ??? Sulfa Drugs ??? Latex Prescriptions prior to admission Medication Sig Dispense Refill ??? loratadine (CLARITIN) 10 MG tablet Take 10 mg by mouth once daily. ??? lisinopril (PRINIVIL; ZESTRIL) 40 MG tablet Take 1 Tab by mouth once daily. 30 Tab 3 ??? metoprolol tartrate IR (LOPRESSOR) 50 MG tablet Take 1 Tab by mouth 2 times daily. 60 Tab 3 ??? citalopram (CELEXA) 20 MG tablet TAKE ONE TABLET BY MOUTH ONCE DAILY 30 Tab 0 ??? levothyroxine (SYNTHROID) 88 MCG tablet Take 1 Tab by mouth daily before breakfast. 30 Tab 5 ??? phentermine (IONAMINE) 15 MG capsule Take 15 mg by mouth once daily. ??? topiramate (TOPAMAX) 25 MG tablet Take 25 mg by mouth once daily. ??? atorvastatin (LIPITOR) 20 MG tablet Take 1 Tab by mouth at bedtime. 30 Tab 5 ??? B Complex Vitamins (B-COMPLEX/B-12 PO) Take 1,000 mcg by mouth. ??? nitroglycerin (NITROSTAT) 0.4 MG tablet Dissolve 1 Tab under the tongue every 5 minutes as needed for Angina. 100 Tab 3 ??? aspirin 325 MG tablet Take 325 mg by mouth once daily. ??? Cholecalciferol (VITAMIN D) 1000 UNIT capsule Take 2,000 Units by mouth once daily. No current facility-administered medications for this encounter. Facility-Administered Medications Ordered in Other Encounters Medication Dose Route Frequency Provider Last Rate Last Dose ??? 0.9% NaCl infusion CONTINUOUS PRN Valarie Gilmore APRN-GRETCHEN Physicial Exam: Physical exam is normal ASA Evaluation and Anesthesia Plan: Anesthesia administered per Anesthesia Department Indication(s) for Procedure: Colon Screen - low risk Procedure Planned: Colonoscopy Mark Rose MD ER RAILCAR MECHANIC documented in this encounter Plan of Treatment Upcoming Encounters Date Type Department Care Team (Late st Contact Info) Description 09/27/2024 2:20 PM WELDER RAILCAR MECHANIC Office Visit [facility] Neurosciences [address] [facility] [address] [place] [phone] [place] [address] [facility] [address] [place] [phone] 09/28/2024 1:00 PM WELDER RAILCAR MECHANIC Office Visit [facility] [place] [address] [address] [place] [address] [place] [address] [address] [place] [address] Scheduled Orders Name Type Priority Associated Diagnoses Orde r Schedule ENDOSCOPY, COLON, SCREENING GI Routine ONCE for 1 Occur rences starting 10/23/2014 until 10/23/2014 documented as of this encounter Goals Goal Patient Goal Type Associated Problems Recent Progress Patient-Stated? Author Blood Pressure < 140/90 Blood Pressure 102/69(2022 11:30 AM WELDER RAILCAR MECHANIC) No Melinda Newsome Quit smoking / using tobacco Lifestyle No Melinda Newsome documented as of this encounter Procedures Procedure Name Priority Date/Time Associated Diagnosis Comments COLONOSCOPY 10/23/2014 9:00 PM WELDER RAILCAR MECHANIC PATHOLOGY TISSUE EXAM (STL) Routine 10/23/2014 1:08 PM WELDER RAILCAR MECHANIC ENDOSCOPY, COLON, SCREENING Routine 10/23/2014 12:10 PM WELDER RAILCAR MECHANIC documented in this encounter Results * GROSS + MICRO EXAM (STL) (10/23/2014 1:08 PM WELDER RAILCAR MECHANIC) Case Report Surgical Pathology Report ? Case: [id number] ? Authorizing Provider: ??Mark Rose MD ?Collected: ? 10/23/2014 01:08 PM ? Ordering Location: ? [facility] ?Received: ?10/23/2014 01:58 PM ? Pathologist: ? Hero Villela MD ? Specimen: ?Polyp Colon, snare ? 10/24/2014 3:47 PM WELDER RAILCAR MECHANIC [facility] Final Diagnosis 1. ? Colon polyp: -- ? Hyperplastic polyp JONH/felice 10/24/2014 3:47 PM WELDER RAILCAR MECHANIC [facility] Gross Description Received in formalin in a container labeled MichaelLucretia, polyp colon. The container holds three dunaway tissue fragments measuring from 0.2 cm up to 0.5 cm in greatest dimension. The smaller fragment may not survive processing. The specimen is entirely submitted in a cassette labeled A1. CHANEL/juan ramon 10/24/2014 3:47 PM WELDER RAILCAR MECHANIC [facility] Microscopic Description Section labeled, colon polyp, shows fragments of colonic mucosa displaying characteristic of hyperplastic polyp. No malignancy is seen. JONH/felice 10/24/2014 3:47 PM WELDER RAILCAR MECHANIC [facility] Pathology/Cytolo gy POLYP OF COLON / Unknown 10/23/2014 1:08 PM WELDER RAILCAR MECHANIC 10/23/2014 1:58 PM WELDER RAILCAR MECHANIC Comment:799.9 Mark Rose MD LAB - PATHOLOGY/CYT OLOGY ORDERABLES Performing Organization Address City/State/[facility] Co de Phone Number [facility] [address] [place] [address] * ENDOSCOPY, COLON, SCREENING (10/23/2014 12:10 PM WELDER RAILCAR MECHANIC) Report Endoscopy POC _ Patient Name: Lucretia Rodriguez ? Procedure Date: 10/23/2014 12:10 PM ? Date of : 1965 ? Admit Type: Outpatient Age: 49 ? Gender: Female Attending MD: Mark Rose [...] the physician, the ? nurse and the degreasing wheel operator in the procedure room. Mental ? [...] Procedure Code(s): ? --- Professional --- ? 94888, Colonoscopy, flexible, proximal to splenic flexure; with removal ? of tumor(s), polyp(s), or other lesion(s) by snare technique ? --- Technical --- ? 81870, Colonoscopy, flexible, proximal to splenic flexure; with removal ? of tumor(s), polyp(s), or other lesion(s) by snare technique Diagnosis Code(s): ? --- Professional --- ? V76.51, Special screening for malignant neoplasms of colon ? 211.3, Benign neoplasm of colon ? --- Technical --- ? V76.51, Special screening for malignant neoplasms of colon ? 211.3, Benign neoplasm of colon CPT copyright 2013 [employer]. All rights reserved. The codes documented in this report are preliminary and upon order filler review may be revised to meet current compliance requirements. Dr. Mark Rose MD Mark Rose MD 10/23/2014 1:15 PM This report has been signed electronically. Number of Addenda: 0 Note Initiated On: 10/23/2014 12:10 PM [facility] 10/23/2014 12:1 0 PM WELDER RAILCAR MECHANIC Mark Rose MD GI PROCEDURE ORDERA ANNAS [facility] [place] [address] documented in this encounter Visit Diagnoses Not on filedocumented in this encounter Active and Recently Administered Medications Care Teams Harvest Manager Relationship Specialty Start Date End Date Sveta Rai MD PCP - General Internal Medicine 02/22/13 12/07/16 Stevenson Almanza MD Neurology 08/16/14 documented as of this encounter
--- OUTSIDE RECORDS SUMMARY | 2024-09-18 09:35 | XMS_ITS | Encounter Summary ---
Author Organization [facility] Address [address] [facility] [place] [address] Care Team Providers Care Bicycle Taxi Driver Name Role Phone Sveta Rai MD Primary Care Provider Stevenson Almanza MD Unavailable [phone] Reason for Visit * Reason Comments Multiple Sclerosis Follow-up Encounter Details Date Type Department Care Team (Late st Contact Info) Description 02/22/2015 2:00 PM CDT Office Visit [facility]sciences [address] [facility] [address] [place] [address] [place] [address] [facility] [address] [place] [address] MS (multiple sclerosis) (HCC) (Primary Dx) [...] Sign Reading Time Taken Comments Blood Pressure 138/88 02/22/2015 2:12 PM CDT Pulse 76 02/22/2015 2:12 PM CDT Temperature - - Respiratory Rate 12 02/22/2015 2:12 PM CDT Oxygen Saturation - - Inhaled Oxygen Concentration - - Weight 88.6 kg (195 lb 4.8 oz) 02/22/2015 2:12 P M CDT Height 162.6 cm (5' 4 ) 02/22/2015 2:12 PM CDT Body Mass Index 33.52 02/22/2015 2:12 PM CDT documented in this encounter Functional [...] this encounter Patient Instructions * Patient Instructions* Dinah Arriaga - 02/22/2015 2:40 PM CDT Call physician if symptoms worsen or with any questions. Take Medications as prescribed. For descriptions of a variety of neurological conditions please visit: [email or web address] documented in this encounter Progress Notes * Stevenson Almanza MD - 02/22/2015 2:22 PM CDT CC: MS IH: Stable. No attacks. No complaints. Bladder OK. No diplopia. Having some thumb DJD IPJ. No DMTs Outpatient Prescriptions Marked as Taking for the 02/22/15 encounter (Office Visit) with Stevenson Almanza MD Medication Sig Dispense Refill ??? meloxicam (MOBIC) 15 MG tablet Take 1 Tab by mouth once daily 30 Tab 3 ??? atorvastatin (LIPITOR) 20 [...] Take 2,000 Units by mouth once daily. ROS: sleeps OK Exam: BP 138/88 mmHg Pulse 76 Resp 12 Wt 88.587 kg (195 lb 4.8 oz) BMI 33.51 kg/m2 Well appearing and well nourished Cognitive: Alert and oriented X 3. Attention concentration, fund of knowledge and recent and remotememory are intact. Central language function is normal without evidence of aphasia. Cranial nerves: II - Intact visual acuity. FFOV to confrontation. Fundi normal with normal optic nerves. III, IV, - EOMs intact without evidence of diplopia or nystagmus. GERALDO V - Motor and Sensory components intact. VII - Facial movement intact. VIII - Hearing intact. Normal Dc and Rinne IX, X - Palate midline and elevates normally. Intact gag. Uvula midline. XII - Tongue protrudes in the midline without atrophy or fasciculations. Neck: ROM normal. Carotids without bruits. Motor: Normal tone, power and bulk. Sensory: Intact to touch and vibration. Reflexes: Symmetric 0-tr at Biceps, Triceps, Brachioradialis, 2/2 Knees and 1/1 Ankles. Plantar reflexes are flexor bilaterally. Cerebellum: Intact FTN. Drift: Negative Gait: Normal station and gait. Hands: Ltd motion right thumb IPJ. Some small heberdens. ASSESSMENT: MS stable OA PLAN: Follow 6 month follow up Mobic for hand as doing documented in this encounter Plan of Treatment Upcoming Encounters Date Type Department Care Team (Late st Contact Info) Description 09/27/2024 2:20 PM REPAIRER EVAPORATOR Office Visit [facility] Neurosciences [address] [facility] [address] [place] [phone] [place] [address] [facility] [address] [place] [phone] 09/28/2024 1:00 PM REPAIRER EVAPORATOR Office Visit [facility] - [address] [address] [facility] [address] [place] [address] [place] [address] [address] [facility] [address] [place] [address] documented as of this encounter Goals Goal Patient Goal Type Associated Problems Recent Progress Patient-Stated? Author Blood Pressure < 140/90 Blood Pressure 102/69(2022 11:30 AM REPAIRER EVAPORATOR) No Melinda Newsome Quit smoking / using tobacco Lifestyle No Melinda Newsome documented as of this encounter Visit Diagnoses Diagnosis MS (multiple sclerosis) (HCC)- Primary Multiple sclerosis documented in this encounter Care Teams Bicycle Taxi Driver Relationship Specialty Start Date End Date Sveta Rai MD PCP - General Internal Medicine 02/22/13 12/07/16 Stevenson Almanza MD Neurology 08/16/14 documented as of this encounter
--- OUTSIDE RECORDS SUMMARY | 2024-09-18 09:35 | XMS_ITS | Encounter Summary ---
Author Organization [facility] Address [address] [place] [address] Care Team Providers Care Carton Filler Name Role Phone Sveta Rai MD Primary Care Provider Stevenson Almanza MD Unavailable [phone] Reason for Visit * Auth/Cert - Closed Specialty Diagnoses / Procedures Referred By Contac t Referred To Contact Procedures COLONOSCOPY Referral ID Status Reason Start Date Expiration Date Visits Re quested Visits Authorized [id number] Closed 1 1 Encounter Details Date Type Department Care Team (Late st Contact Info) Description 10/23/2014 12:45 PM AMERICAN HISTORY PROFESSOR Anesthesia Event Pending sale to [facility] [address] [place] [id number] Valarie Gilmore, PLANNER-GREASE MACHINE WORKER LICENSE Anesthesia Record Procedure Summary Procedure Name Responsible Anesthesiologist Anesthesia Start Time Anesthesia Stop Time COLONOSCOPY 10/23/14 1245 10/23/14 1315 Events Date Time Event Comment 10/23/2014 1229 1229 Out OR Start Data 1230 Elect Sign The providers l isted as staff are the responsible providers for the case. 1245 An Start 1246 Quick [place] [address] 1310 PT Reassessment Patient and Vital Signs reassessed prior to induction. 1310 Elect Sign The providers l isted as staff are the responsible providers for the case. 1310 Out OR Stop Data 1315 An Stop Meds Name Total lidocaine (XYLOCAINE) 2% injection (20 m g/ml) 50 mg propofol (DIPRIVAN) injection 10mg/ml (E NDO USE) 30 mL 0.9% NaCl infusion 200 mL * Agents Name O2 * Blood No blood administrations on file. Lines, Drains, and Airways Type Details Placement Removal Peripheral IV Date: 10/23/14; Time : 1208; Orientation: Right; Placed By: antonia morocho rn; Tolerance: Well 10/23/14 1208 by Ofelia Hernandez RN 10/23/14 1342 by Leah Vasquez RN documented in this encounter Social History [...] as of this encounter Progress Notes * Valarie Gilmore, IBIS-GREASE MACHINE WORKER - 10/23/2014 1:11 PM CST ANESTHESIA POSTPROCEDURE EVALUATION Lucretia Rodriguez is a 49 y.o. female Temp: 36.9 ??C Pulse: 71 Resp: 18 BP: 97/62 mmHg SpO2: 95 % Pain Rating Score #1: 0 Anesthesia Type: MAC Mental status: sufficiently recovered from acute administration of anesthesia to participate in theevaluation. Level of consciousness: awake No numbness, tingling or visual disturbances present. General appearance: well-appearing Respiratory function: natural airway. Cardiac: stable Pain: comfortable/acceptable PONV: None Postop hydration: adequate. Patient may be released from anesthesia care. A postop evaluation was performed on this patient with the following assessment: no apparent anesthesia complications ICAN HISTORY PROFESSOR documented in this encounter Consult Notes * Valarie Gilmore, IBIS-GREASE MACHINE WORKER - 10/23/2014 12:27 PM CST Pre-anesthesia Evaluation Procedure(s): COLONOSCOPY Vital Signs: Temp: 36.9 ??C (10/23 1204) Pulse: 69 (10/23 1226) Resp: 18 (10/23 1226) BP: 127/75 mmHg (10/23 1226) SpO2: 97 % (10/23 1226) BMI: Estimated body mass index is 33.97 kg/(m^2) as calculated from the following: Height as of this encounter: 5' 4 (1.626 m). Weight as of this encounter: 198 lb (89.812 kg). History: Past Medical History Diagnosis Date ??? Heart attack 2010 ??? HTN (hypertension) ??? Hyperlipemia ??? Multiple sclerosis 2005 ??? H/O heart artery stent 2010 [id number] LAD( ) mercy ??? H/O laparoscopic adjustable gastric banding 2009 ??? S/P tonsillectomy ??? Migraine ??? Hypothyroid ??? Depressive disorder, not elsewhere classified ??? Generalized anxiety disorder ??? Tension headache ??? High blood pressure ??? Heart attack ??? Stomach ulcer ??? Migraine ??? High cholesterol ??? Anemia ??? Thyroid disease Past Surgical History Procedure Laterality Date ??? Coronary stent placement was on plavix for 9 month, now on ASA ??? Tonsillectomy ??? Sys lap band 10.0 2009 ??? Tubal ligation, laparoscopic ??? Cholecystectomy, laparoscopic 08/09/2013 ??? Cholecystectomy, laparoscopic 08/10/2013 LAPAROSCOPIC CHOLECYSTECTOMY ??? Ercp 08/12/2013 ERCP ??? Endometrial ablation 2005 for heavy menses. reports that she has been smoking Cigarettes. She started smoking about 14 months ago. She has a 15pack-year smoking history. She has never used smokeless tobacco. She reports that she drinks alcohol. She reports that she does not use illicit drugs. Allergies: is allergic to sulfa drugs and latex. Medications: Prescriptions prior to admission Medication Sig Dispense [...] current facility-administered medications on file prior to encounter. Current Outpatient Prescriptions on File Prior to Encounter Medication Sig Dispense Refill ??? citalopram (CELEXA) 20 MG tablet TAKE [...] Take 2,000 Units by mouth once daily. Physical Exam: NPO status: no solids since midnight Oriented to person, place and time Airway: I Neck ROM: full Dental exam findings: normal/ok Pulmonary exam: breath sounds CTA Heart sounds: S1 S2 Spinal Alignment: symmetrical Plan for Anesthesia: ASA Score: 3. Anesthesia plan: MAC Planned method of induction: intravenous Planned postop destination: endo Anesthesia plan, risks and benefits discussed with patient Anesthesia consent: obtained Plan accepted yes Discussed anesthesia plan with: GREASE MACHINE WORKER. ICAN HISTORY PROFESSOR documented in this encounter Plan of Treatment Upcoming Encounters Date Type Department Care Team (Late st Contact Info) Description 09/27/2024 2:20 PM AMERICAN HISTORY PROFESSOR Office Visit [facility] [address] [phone] [place] [address] [phone] 09/28/2024 1:00 PM AMERICAN HISTORY PROFESSOR Office Visit [facility] Medical Group - [address] [address] [phone] [place] [address] [address] [address] documented as of this encounter Goals Goal Patient Goal Type Associated Problems Recent Progress Patient-Stated? Author Blood Pressure < 140/90 Blood Pressure 102/69(2022 11:30 AM AMERICAN HISTORY PROFESSOR) Melinda Barclay Quit smoking / using tobacco Lifestyle No Melinda Newsome documented as of this encounter Visit Diagnoses Not on filedocumented in this encounter Administered Medications Inactive Administered Medications - up to 3 most recent administrations Medication Order MAR Action Action Date Dose Rate Site 0.9% NaCl infusion CONTINUOUS PRN, Starting on Thu10/23/14 at 1229, Until Thu10/23/14 at 1315, Anesthesia Intra-op $ New Bag/Syringe 10/23/2014 12:29 PM AMERICAN HISTORY PROFESSOR lidocaine (XYLOCAINE) 2 % injection PRN, Starting on Thu10/23/14 at 1245, Until Thu10/23/14 at 1315, Anesthesia Intra-op $ Given 10/23/2014 12:45 PM AMERICAN HISTORY PROFESSOR 50 mg propofol (DIPRIVAN) injection CONTINUOUS PRN, Starting on Thu10/23/14 at 1245, Until Thu10/23/14 at 1315, Anesthesia Intra-op $ New Bag/Syringe 10/23/2014 12:45 PM AMERICAN HISTORY PROFESSOR documented in this encounter Care Teams Carton Filler Relationship Specialty Start Date End Date Sveta Rai MD PCP - General Internal Medicine 02/22/13 12/07/16 Stevenson Almanza MD Neurology 08/16/14 documented as of this encounter
--- OUTSIDE RECORDS SUMMARY | 2024-09-18 09:35 | XMS_ITS | Encounter Summary ---
Author Organization [facility] Address [address] [facility] [place] [address] Care Team Providers Care Branch Rental Manager Name Role Phone Sveta Rai MD Primary Care Provider Stevenson Almanza MD Unavailable [phone] Reason for Visit * Auth/Cert - Closed Specialty Diagnoses / Procedures Referred By Contac t Referred To Contact Procedures COLONOSCOPY Referral ID Status Reason Start Date Expiration Date Visits Re quested Visits Authorized [id number] Closed 1 1 Encounter Details Date Type Department Care Team (Late st Contact Info) Description 10/23/2014 1:00 PM TWISTER TENDER - 10/23/2014 1:30 PM TWISTER TENDER [facility] [address] [place] [address] Mark Rose MD [address] [place] [address] COLONOSCOPY Surgery Details Date/Time Status Location OR Service Patient Class Case Class Case Type Trauma Case? 10/23/2014 1:00 PM Posted [facility] 01 Gastroenterology Surgery Day Care Elective > 5 days Panel 1 Procedure LRB Anes Op Region Wound Class Comments COLONOSCOPY MAC Clean Contaminated Surgeon Surgeon Role Service [...] Comments Blood Pressure 96/63 10/23/2014 1:30 PM TWISTER TENDER Pulse 68 10/23/2014 1:30 PM TWISTER TENDER Temperature 36.9 ??C (98.4 ??F) 10/23/2014 1:20 PM CS T Respiratory Rate 15 10/23/2014 1:30 PM TWISTER TENDER Oxygen Saturation 97% 10/23/2014 1:30 PM TWISTER TENDER Inhaled Oxygen Concentration - - Weight 89.8 kg (198 lb) 10/23/2014 12:04 PM TWISTER TENDER Height 162.6 cm (5' 4 ) 10/23/2014 12:04 PM TWISTER TENDER Body Mass Index 33.99 10/23/2014 12:04 PM TWISTER TENDER documented in this encounter Functional Status Functional [...] PRE-PROCEDURE MEDICAL HISTORY & PHYSICAL Lucretia Rodriguez 49 y.o. female BP 127/75 Pulse 69 Temp(Src) 98.5 ??F Resp 18 Wt 198 lb (89.812 kg) BMI 33.97 kg/m2 History: Past Medical History Diagnosis Date ??? Heart attack 2010 ??? HTN (hypertension) ??? Hyperlipemia ??? Multiple sclerosis 2006 ??? H/O heart artery stent 2010 [id number] LAD( ) nir ??? H/O laparoscopic adjustable [...] 0.9% NaCl infusion CONTINUOUS PRN Valarie Gilmore APRN-SANDWICH MAKER Physicial Exam: Physical exam is normal ASA Evaluation and Anesthesia Plan: Anesthesia administered per Anesthesia Department Indication(s) for Procedure: Colon Screen - low risk Procedure Planned: Colonoscopy Mark Rose MD TER TENDER documented in this encounter Plan of Treatment Upcoming Encounters Date Type Department Care Team (Late st Contact Info) Description 09/27/2024 2:20 PM TWISTER TENDER Office Visit [facility] [address] [facility] [address] [place] [address] [place] [address] [facility] JUAN ALBERTO [address] [place] [address] 09/28/2024 1:00 PM TWISTER TENDER Office [place] [facility] [place] [address] [address] Juan [address] [place] [address] [place] [address] [address]AN [address] [place] [address] Scheduled Orders Name Type Priority Associated Diagnoses Orde r Schedule ENDOSCOPY, COLON, SCREENING GI Routine ONCE for 1 Occur rences starting 10/23/2014 until 10/23/2014 documented as of this encounter Goals Goal Patient Goal Type Associated Problems Recent Progress Patient-Stated? Author Blood Pressure < 140/90 Blood Pressure 102/69(2022 11:30 AM TWISTER TENDER) No Melinda Newsome Quit smoking / using tobacco Lifestyle No Melinda Newsome documented as of this encounter Procedures Procedure Name Priority Date/Time Associated Diagnosis Comments COLONOSCOPY 10/23/2014 9:00 PM TWISTER TENDER PATHOLOGY TISSUE EXAM (STL) Routine 10/23/2014 1:08 PM TWISTER TENDER ENDOSCOPY, COLON, SCREENING Routine 10/23/2014 12:10 PM TWISTER TENDER documented in this encounter Results * GROSS + MICRO EXAM (STL) (10/23/2014 1:08 PM TWISTER TENDER) Case Report Surgical Pathology Report ? Case: [id number] ? Authorizing Provider: ??Mark Rose MD ?Collected: ? 10/23/2014 01:08 PM ? Ordering Location: ? [facility] ?Received: ?10/23/2014 01:58 PM ? Pathologist: ? Hero Villela MD ? Specimen: ?Polyp Colon, snare ? 10/24/2014 3:47 PM TWISTER TENDER [facility] Final Diagnosis 1. ? Colon polyp: -- ? Hyperplastic polyp JW/felice 10/24/2014 3:47 PM TWISTER TENDER [facility] Gross Description Received in formalin in a container labeled Lucretia Rodriguez., polyp colon. The container holds three dunaway tissue fragments measuring from 0.2 cm up to 0.5 cm in greatest dimension. The smaller fragment may not survive processing. The specimen is entirely submitted in a cassette labeled A1. CHANEL/juan ramon 10/24/2014 3:47 PM TWISTER TENDER [facility] Microscopic Description Section labeled, colon polyp, shows fragments of colonic mucosa displaying characteristic of hyperplastic polyp. No malignancy is seen. JONH/felice 10/24/2014 3:47 PM TWISTER TENDER [facility] Pathology/Cytolo gy POLYP OF COLON / Unknown 10/23/2014 1:08 PM TWISTER TENDER 10/23/2014 1:58 PM TWISTER TENDER Comment:799.9 Mark Rose MD LAB - PATHOLOGY/CYT OLOGY ORDERABLES [facility] [address] [place] [address] * ENDOSCOPY, COLON, SCREENING (10/23/2014 12:10 PM TWISTER TENDER) Report Endoscopy POC _ Patient Name: Lucretia [...] the physician, the ? nurse and the head filter press tender in the procedure room. Mental ? Status [...] Procedure Code(s): ? --- Professional --- ? 96566, Colonoscopy, flexible, proximal to splenic flexure; with removal ? of tumor(s), polyp(s), or other lesion(s) by snare technique ? --- Technical --- ? 69226, Colonoscopy, flexible, proximal to splenic flexure; with removal ? of tumor(s), polyp(s), or other lesion(s) by snare technique Diagnosis Code(s): ? --- Professional --- ? V76.51, Special screening for malignant neoplasms of colon ? 211.3, Benign neoplasm of colon ? --- Technical --- ? V76.51, Special screening for malignant neoplasms of colon ? 211.3, Benign neoplasm of colon CPT copyright 2013 [employer]. All rights reserved. The codes documented in this report are preliminary and upon hcc coders review may be revised to meet current compliance requirements. Dr. Mark Rose MD Mark Rose MD 10/23/2014 1:15 PM This report has been signed electronically. Number of Addenda: 0 Note Initiated On: 10/23/2014 12:10 PM [facility] 10/23/2014 12:1 0 PM TWISTER TENDER Mark Rose MD GI PROCEDURE ORDERA CUCO Performing Organization Address City/State/[facility] Co de Phone Number [facility] [place] [address] documented in this encounter Visit Diagnoses Not on filedocumented in this encounter Active and Recently Administered Medications Care Teams Branch Rental Manager Relationship Specialty Start Date End Date Sveta Rai MD PCP - General Internal Medicine 02/22/13 12/07/16 Stevenson Almanza MD Neurology 08/16/14 documented as of this encounter
--- OUTSIDE RECORDS SUMMARY | 2024-09-18 09:35 | XMS_ITS | Encounter Summary ---
Author Organization [facility] Address [address] [facility] [place] [address] Care Team Providers Care Job Setter Honing Name Role Phone Sveta Rai MD Primary Care Provider Stevenson Almanza MD Unavailable [phone] Reason for Visit * Reason Comments Refill Request Encounter Details Date Type Department Care Team (Late st Contact Info) Description 02/17/2015 Refill [facility] Medical [facility] - Family Medicine [address] [place] [address] Sveta Rai MD [address] [place] [address] DR NOONAN [address] [place] [address] Refill Request Social History Tobacco Use Types [...] encounter Miscellaneous Notes * Telephone Encounter - Gregoria Sherwood MA - 02/20/2015 2:50 PM CDT Last Refill: 01/16/2015 Last OV: 01/23/2015 Upcoming OV: 07/26/2015 documented in this encounter Plan of Treatment Upcoming Encounters Date Type Department Care Team (Late st Contact Info) Description 09/27/2024 2:20 PM MICROSOFT BI DEVELOPER Office Visit [facility] Neurosciences [address] [facility] [address] [place] [address] [place] [address] [facility] [address] [place] [address] 09/28/2024 1:00 PM MICROSOFT BI DEVELOPER Office Visit [facility] [address] [facility], [address] [address] [place] [address] [facility] [address] [address] documented as of this encounter Goals Goal Patient Goal Type Associated Problems Recent Progress Patient-Stated? Author Blood Pressure < 140/90 Blood Pressure 102/69(2022 11:30 AM MICROSOFT BI DEVELOPER) No Melinda Newsome Quit smoking / using tobacco Lifestyle No Melinda Newsome documented as of this encounter Visit Diagnoses Not on filedocumented in this encounter Care Teams Job Setter Honing Relationship Specialty Start Date End Date Sveta Rai MD PCP - General Internal Medicine 02/22/13 12/07/16 Stevenson Almanza MD Neurology 08/16/14 documented as of this encounter
--- OUTSIDE RECORDS SUMMARY | 2024-09-18 09:35 | XMS_ITS | Encounter Summary ---
Author Organization [facility] Address [address] [place] [address] Care Team Providers Care Woodwork Teacher Name Role Phone Sveta Rai MD Primary Care Provider Stevenson Almanza MD Unavailable Reason for Visit * Reason Comments Refill Request Encounter Details Date Type Department Care Team (Late st Contact Info) Description 10/18/[address] [facility] Medical [facility] - Family Medicine [address] [place] [address] Sveta Rai MD [address] [place] [address] DR NOONAN [address] [place] [address] Refill Request Social History Tobacco Use Types [...] encounter Miscellaneous Notes * Telephone Encounter - Mariela Handy - 10/18/2015 10:14 AM CST Last refill 09/20/15 Last OV 09/18/15 Future OV 11/23/15 CTOR OF KNOWLEDGE MANAGEMENT documented in this encounter Plan of Treatment Upcoming Encounters Date Type Department Care Team (Late st Contact Info) Description 09/27/2024 2:20 PM DIRECTOR OF KNOWLEDGE MANAGEMENT Office [facility] Neurosciences [address] [facility] [address] [place] [phone] [place] [address] [facility] [address] [place] [address] 09/28/2024 1:00 PM DIRECTOR OF KNOWLEDGE MANAGEMENT Office Visit [facility] Medical Group - [address] Michele Barrett, [address] [address] [place] [address] [facility] [address] [address] documented as of this encounter Goals Goal Patient Goal Type Associated Problems Recent Progress Patient-Stated? Author Blood Pressure < 140/90 Blood Pressure 102/69(2022 11:30 AM DIRECTOR OF KNOWLEDGE MANAGEMENT) No Melinda Newsome Quit smoking / using tobacco Lifestyle No Melinda Newsome documented as of this encounter Visit Diagnoses Not on filedocumented in this encounter Care Teams Woodwork Teacher Relationship Specialty Start Date End Date Sveta Rai MD PCP - General Internal Medicine 02/22/13 12/07/16 Stevenson Almanza MD Neurology 08/16/14 documented as of this encounter
--- OUTSIDE RECORDS SUMMARY | 2024-09-18 09:35 | XMS_ITS | Encounter Summary ---
Author Organization [facility] Address [address] [facility] [place] [address] Care Team Providers Care Tool Turret Lathe Set Up Operator Name Role Phone Sveta Rai MD Primary Care Provider Stevenson Almanza MD Unavailable [phone] Reason for Visit * Reason Comments Follow-up Encounter Details Date Type Department Care Team (Late st Contact Info) Description 08/23/2015 2:40 PM PROFESSOR OF HISTORY Office Visit [facility]sciences [address] [facility] [address] [place] [address] [place] [address] [address] MS (multiple sclerosis) (HCC) (Primary [...] Sign Reading Time Taken Comments Blood Pressure 135/81 08/23/2015 3:01 PM PROFESSOR OF HISTORY Pulse 68 08/23/2015 3:01 PM PROFESSOR OF HISTORY Temperature - - Respiratory Rate 16 08/23/2015 3:01 PM PROFESSOR OF HISTORY Oxygen Saturation - - Inhaled Oxygen Concentration - - Weight 107 kg (236 lb) 08/23/2015 3:01 PM PROFESSOR OF HISTORY Height 162.6 cm (5' 4 ) 08/23/2015 3:01 PM PROFESSOR OF HISTORY Body Mass Index 40.51 08/23/2015 3:01 PM PROFESSOR OF HISTORY documented in this encounter Functional Status Functional [...] Instructions * Patient Instructions* Yolanda Burch - 08/23/2015 3:36 PM PROFESSOR OF HISTORY Call physician if symptoms worsen or with any questions. Take Medications as prescribed. For descriptions of a variety of neurological conditions please visit: [email or web address] ESSOR OF HISTORY documented in this encounter Progress Notes * Stevenson Almanza MD - 08/23/2015 3:24 PM CST CC: MS IH: Lost her significant other in June. No MS attacks. Has fallen 3 times in last few months butuncertain why fell. Vision and bladder are OK. No DMTs. Nothing lasting over 24 hrs Outpatient Prescriptions Marked as Taking for the 08/23/15 encounter (Office Visit) with Stevenson Almanza MD Medication Sig Dispense Refill ??? Nutritional Supplements (ESTROVEN PO) Take by mouth once daily ??? atorvastatin (LIPITOR) 20 MG tablet Take 2 Tabs by mouth at bedtime 90 Tab 1 ??? fluticasone propionate (FLONASE) 50 MCG/ACT nasal spray [place] 2 Sprays into each nostril once daily 1 Bottle 3 ??? zolpidem (AMBIEN) 5 MG tablet Take 1 Tab by mouth nightly as needed for Insomnia 30 Tab 0 ??? citalopram (CELEXA) 40 MG tablet Take 1 Tab by mouth once daily 90 Tab 3 ??? meloxicam (MOBIC) 15 MG tablet TAKE ONE TABLET BY MOUTH ONCE DAILY 90 Tab 1 ??? metoprolol tartrate (LOPRESSOR) 50 MG tablet TAKE ONE TABLET BY MOUTH TWICE A DAY 180 Tab 1 ??? levothyroxine (SYNTHROID) 88 MCG tablet Take 1 Tab by mouth daily before breakfast 30 Tab 3 ??? lisinopril (PRINIVIL; ZESTRIL) 40 [...] 5,000 Units by mouth once daily ROS: Recent carpal tunnel surgery Exam: BP 135/81 mmHg Pulse 68 Resp 16 Wt 107.049 kg (236 lb) BMI 40.49 kg/m2 Cognitively: Alert and oriented times 3. Attention and concentration, fund of knowledge, recent andremote memory and central language function are intact. Cranial Nerves: II: Full field of vision to confrontation. Discs OK IIl, lV, Vl:Extraocular movements intact. PERRLA V: [...] normal station and gait ASSESSMENT: MS stable PLAN: Continue conservative observation Yearly follow up Call if concerns Over 15 minutes were spent with the patient face to face. Over fifty percent of this time was spentcounseling and coordination of care. All questions were answered to the patients satisfaction. Discuss diagnosis and treatment options. ESSOR OF HISTORY documented in this encounter Plan of Treatment Upcoming Encounters Date Type Department Care Team (Late st Contact Info) Description 09/27/2024 2:20 PM PROFESSOR OF HISTORY Office Visit [facility] Neurosciences [address] [facility] [address] [place] [phone] [place] [address] [facility] [address] [place] [address] 09/28/2024 1:00 PM PROFESSOR OF HISTORY Office Visit [facility] Medical Group - [address] Michele Barrett, [facility] [address] [place] [address] [place] [address] [facility] [address] [place] [address] documented as of this encounter Goals Goal Patient Goal Type Associated Problems Recent Progress Patient-Stated? Author Blood Pressure < 140/90 Blood Pressure 102/69(2022 11:30 AM PROFESSOR OF HISTORY) Melinda Barclay Quit smoking / using tobacco Lifestyle No Melinda Newsome documented as of this encounter Visit Diagnoses Diagnosis MS (multiple sclerosis) (HCC)- Primary Multiple sclerosis documented in this encounter Care Teams Tool Turret Lathe Set Up Operator Relationship Specialty Start Date End Date Sveta Rai MD PCP - General Internal Medicine 02/22/13 12/07/16 Stevenson Almanza MD Neurology 08/16/14 documented as of this encounter
--- OUTSIDE RECORDS SUMMARY | 2024-09-18 09:35 | XMS_ITS | Encounter Summary ---
Author Organization [facility] Address [address] [facility] [place] [address] Care Team Providers Care Chief Engineer Production Name Role Phone Sveta Rai MD Primary Care Provider [phone] Stevenson Almanza MD Unavailable [phone] Encounter Details Date Type Department Care Team (Latest Contact Info) Description 06/20/2015 11:00 AM CDT - 06/20/2015 11:59 PM CDT Hospital Encounter [facility] Health Neurosciences [address] [address] [place] [address] [place] [address] [address] [place] [address] Discharge Disposition: Home or Self Care Social [...] atorvastatin (LIPITOR) 20 MG tabletIndications:Mixed hyperlipidemia Take 1 Tab by mouth at bedtime. 30 Tab 2 01/23/2015 08/06/2015 B Complex Vitamins (B-COMPLEX/B-12 PO) Take 1,000 mcg by mouth. 12/08/2016 citalopram (CELEXA) 20 MG tablet Take 1 Tab by mouth once daily 30 Tab 3 03/19/2015 06/27/2015 levothyroxine (SYNTHROID) 88 MCG tablet Take 1 Tab by mouth daily before breakfast 30 Tab 3 03/19/2015 10/19/2015 lisinopril (PRINIVIL; ZESTRIL) 40 MG tabletIndications:HTN (hypertension) Take 1 Tab by mouth once daily. 30 Tab 3 01/23/2015 11/12/2015 loratadine (CLARITIN) 10 MG tablet Take 10 mg by mouth once daily. 01/19/2020 meloxicam (MOBIC) 15 MG tablet TAKE ONE TABLET BY MOUTH ONCE DAILY 90 Tab 1 06/18/2015 12/13/2015 metoclopramide, disintegrating, (METOZOLV ODT) 10 MG tablet Take 1 Tab by mouth every 6 hours as needed for Nausea/Vomiting 20 Tab 0 03/28/2015 06/27/2015 metoprolol tartrate (LOPRESSOR) 50 MG tablet TAKE [...] daily. 06/27/2015 documented as of this encounter Plan of Treatment Upcoming Encounters Date Type Department Care Team (Late st Contact Info) Description 09/27/2024 2:20 PM FRAME AND SCRAP CRUSHER Office Visit [facility] Neurosciences [address] [facility] [address] [place] [address] [place] [address] [facility] [address] [place] [address] 09/28/2024 1:00 PM FRAME AND SCRAP CRUSHER Office Visit [facility] [address] Michele Barrett, [facility] [address] [place] [address] [place] [address] [address] [facility] [address] [place] [address] documented as of this encounter Goals Goal Patient Goal Type Associated Problems Recent Progress Patient-Stated? Author Blood Pressure < 140/90 Blood Pressure 102/69(2022 11:30 AM FRAME AND SCRAP CRUSHER) No Melinda Newsome Quit smoking / using tobacco Lifestyle No Melinda Newsome documented as of this encounter Visit Diagnoses Not on filedocumented in this encounter Care Teams Chief Engineer Production Relationship Specialty Start Date End Date Sveta Rai MD PCP - General Internal Medicine 02/22/13 12/07/16 Stevenson Almanza MD Neurology 08/16/14 documented as of this encounter
--- OUTSIDE RECORDS SUMMARY | 2024-09-18 09:35 | XMS_ITS | Encounter Summary ---
Author Organization [facility] Address [address] [facility] [place] [address] Care Team Providers Care Pumper Hand Name Role Phone Sveta Rai MD Primary Care Provider Stevenson Almanza MD Unavailable [phone] Reason for Visit * Reason Comments Refill Request Encounter Details Date Type Department Care Team (Late st Contact Info) Description 03/17/2015 Refill [facility] Medical [facility] - Family Medicine [address] [place] [address] Sveta Rai MD [address] [place] [address] [address] NOONAN [address] [place] [address] Refill Request Social History Tobacco Use Types [...] st Contact Info) Description 09/27/2024 2:20 PM LINE INSTALLER TROLLEY Office Visit [facility] Neurosciences [address] [facility] [address] [place] [phone] [place] [address] [facility] [address]UAN [address]ERT[address] [place] [address] 09/28/2024 1:00 PM LINE INSTALLER TROLLEY Office Visit [facility] [place] [address] Michele Barrett, Juan [address] [place] [address] [place] [address] [address] [facility] [address] [place] [address] documented as of this encounter Goals Goal Patient Goal Type Associated Problems Recent Progress Patient-Stated? Author Blood Pressure < 140/90 Blood Pressure 102/69(2022 11:30 AM LINE INSTALLER TROLLEY) No Melinda Newsome Quit smoking / using tobacco Lifestyle No Melinda Newsome documented as of this encounter Visit Diagnoses Not on filedocumented in this encounter Care Teams Pumper Hand Relationship Specialty Start Date End Date Sveta Rai MD PCP - General Internal Medicine 02/22/13 12/07/16 Stevenson Almanza MD Neurology 08/16/14 documented as of this encounter
--- OUTSIDE RECORDS SUMMARY | 2024-09-18 09:35 | XMS_ITS | Encounter Summary ---
Author Organization [facility] Health Address [address] [facility] [place] [address] Care Team Providers Care Emergency Room Rn Name Role Phone Sveta Rai MD Primary Care Provider Stevenson Almanza MD Unavailable [phone] Encounter Details Date Type Department Care Team (Latest Contact Info) Description 02/22/2015 2:55 PM CDT - 02/22/2015 11:59 PM CDT Hospital Encounter [facility] Imaging Services - Radiology [address] [place] [address] Sveta Rai MD [address] [place] [address] DR NOONAN [address] [place] [address] Discharge Disposition: Home or Self Care [...] by mouth. 12/08/2016 citalopram (CELEXA) 20 MG tabletIndications:Major depression Take 1 Tab by mouth once daily. 30 Tab 0 01/23/2015 03/16/2015 levothyroxine (SYNTHROID) 88 MCG tabletIndications:Hypothyr oidism Take 1 Tab by mouth daily before breakfast. 30 Tab 5 01/23/2015 03/16/2015 lisinopril (PRINIVIL; ZESTRIL) 40 MG tabletIndications:HTN (hypertension) Take 1 Tab by mouth once daily. 30 Tab 3 01/23/2015 11/12/2015 loratadine (CLARITIN) 10 MG tablet Take 10 mg by mouth once daily. 01/19/2020 meloxicam (MOBIC) 15 MG tablet Take 1 Tab by mouth once daily 30 Tab 3 02/22/2015 06/17/2015 metoprolol tartrate IR (LOPRESSOR) 50 MG tabletIndications:HTN (hypertension) Take 1 Tab by mouth 2 times daily. 60 Tab 3 01/23/2015 06/17/2015 nitroglycerin (NITROSTAT) 0.4 MG tablet Dissolve 1 Tab under the tongue every 5 minutes as needed for Angina. 100 Tab 3 05/11/2014 02/26/2016 phentermine (IONAMINE) 15 MG capsule Take 15 mg by mouth once daily. 06/27/2015 topiramate (TOPAMAX) 25 MG tablet Take 25 mg by mouth once daily. 06/27/2015 documented as of this encounter Progress Notes * Chitra Carranza APRN-CNP - 02/22/2015 4:09 PM CDTQuick Note: Spoke to pt, arthritis in the hand not evident on xray but was during physical exam. Trial of meloxicam, if not improving in [address] Jarvis. documented in this encounter Plan of Treatment Upcoming Encounters Date Type Department Care Team (Late st Contact Info) Description 09/27/2024 2:20 PM ENGINEERING LAB TECHNICIAN Office Visit [facility] Neurosciences [address] [facility] [address] [place] [address] [place] [address] [facility] [address] [place] [phone] 09/28/2024 1:00 PM ENGINEERING LAB TECHNICIAN Office Visit [facility] [place] [address] [place] , [address] [address] [place] [address] [address] [facility] [address] [place] [address] documented as of this encounter Goals Goal Patient Goal Type Associated Problems Recent Progress Patient-Stated? Author Blood Pressure < 140/90 Blood Pressure 102/69(2022 11:30 AM ENGINEERING LAB TECHNICIAN) No Melinda Newsome Quit smoking / using tobacco Lifestyle No Melinda Newsome documented as of this encounter Procedures Procedure Name Priority Date/Time Associated Diagnosis Comments XR HAND RIGHT 3VW OR MORE Routine 02/22/2015 3:07 PM CDT Pain of right hand documented in this encounter Results * XR HAND 3+ VW RIGHT (02/22/2015 3:07 PM CDT) Anatomical Region Laterality Modality Wrist / Hand Radiographic Louann ging 02/22/2015 3:31 PM CDT Impressions 02/22/2015 3:32 PM CDT Unremarkable radiographic examination of right hand This examination was transcribed using the Zumbl voice recognition system without human senior clinical data manager. ??In an effort to expedite patient care, this report has not been adjusted for typographical, grammatical, and syntax by a trained medical secretary receptionist. Narrative 02/22/2015 3:32 PM CDT Right hand [...] hand This examination was transcribed using the Zumbl voice recognition system without human senior clinical data manager. In an effort to expedite patient care, this report has not been adjusted for typographical, grammatical, and syntax by a trained medical secretary receptionist. Chitra Carranza LOCATION MANAGER-GREEN BUILDING MATERIALS DESIGNER DIAGNOSTIC IMAG ING ORDERABLES documented in this encounter Visit Diagnoses Diagnosis Pain of right hand Pain in limb documented in this encounter Care Teams Emergency Room Rn Relationship Specialty Start Date End Date Sveta Rai MD PCP - General Internal Medicine 02/22/13 12/07/16 Stevenson Almanza MD Neurology 08/16/14 documented as of this encounter
--- OUTSIDE RECORDS SUMMARY | 2024-09-18 09:35 | XMS_ITS | Encounter Summary ---
Author Organization [facility] Health Address [address] [place] [address] Care Team Providers Care Hat Sprayer Name Role Phone Sveta Rai MD Primary Care Provider Stevenson Almanza MD Unavailable [phone] Encounter Details Date Type Department Care Team (Latest Contact Info) Description 06/26/2015 11:04 AM CDT - 06/26/2015 11:53 AM CDT Hospital Encounter [facility] [address] [place] [address] Robyn Badillo, APPLICATION DEVELOPMENT SPECIALIST-TURN SEWER [address] [place] [address] Discharge Disposition: Home or Self Care Social [...] Sign Reading Time Taken Comments Blood Pressure 190/106 06/26/2015 11:37 AM CDT Large manual cuff, patient sitting. Pulse 73 06/26/2015 11:04 AM CDT Temperature 36.4 ??C (97.5 ??F) 06/26/2015 1 1:04 AM CDT Respiratory Rate 18 06/26/2015 11:0 4 AM CDT Oxygen Saturation 99% 06/26/2015 11: 04 AM CDT Inhaled Oxygen Concentration - - Weight 102.1 kg (225 lb) 06/26/2015 11: 04 AM CDT Height 162.6 cm (5' 4 ) 06/26/2015 11:0 4 AM CDT Body Mass Index 38.62 06/26/2015 11:04 AM CDT documented in this encounter Functional [...] as of this encounter Discharge Instructions * Patient Instructions* Robyn Badillo, APPLICATION DEVELOPMENT SPECIALIST-TURN SEWER - 06/26/2015 12:02 PM CDT Images from the original note were not included. Cellulitis Take all antibiotics as prescribed. Keep area of cellulitis clean with a mild soap. If scab comes off, cover with bandage. WHAT YOU SHOULD KNOW: Cellulitis is a skin infection caused by bacteria. AFTER YOU LEAVE: Medicines: ?? Medicines help treat the bacterial infection or decrease pain. ?? Take your medicine as directed. Call your healthcare provider if you think your medicine is not helping or if you have side effects. Tell him if you are allergic to any medicine. Keep a list of the medicines, vitamins, and herbs you take. Include the amounts, and when and why you take them. Bring the list or the pill bottles to follow-up visits. Carry your medicine list with you in case of an emergency. Self-care: ?? Elevate your wound above the level of your heart as often as you can. This will help decrease swelling and pain. Prop your wound on pillows or blankets to keep it elevated comfortably. ?? Clean your wound as directed. You may need to wash the wound with soap and water. Look for signsof infection. ?? Wear pressure stockings as directed. The stockings are tight and put pressure on your legs. Thisimproves blood flow and decreases swelling. Prevent the spread of germs: ?? Do not share personal items, such as towels, clothing, and razors. ?? Clean exercise equipment with germ-killing cesspool cleaner before and after you use it. ?? Wash your hands often. Use soap and water. Wash your hands after you use the bathroom, change a child's diapers, or sneeze. Wash your hands before you prepare or eat food. Use lotion to prevent dry, cracked skin. Follow up with your healthcare provider as directed: Write down your questions so you remember to ask them during your visits. Contact your healthcare provider if: ?? Your fever or pain does not go away or gets worse. ?? Your wound does not get smaller after 2 days of antibiotics. ?? Your skin is flaking or peeling off. ?? You have questions or concerns about your condition or care. Seek care immediately or call 911 if: ?? Your wound gets larger and more painful. ?? You have a thin, kelley-brown discharge coming from your infected skin area. ?? You feel a crackling under your skin when you touch it. ?? You have purple dots or bumps on your skin, or you see bleeding under your skin. ?? You have new swelling and pain in your legs. ?? You have sudden trouble breathing or chest pain. ?? The red, warm, swollen area gets larger. ?? You see red streaks coming from the infected area. ?? You feel weak and dizzy. ?? 2015 [employer]. Information is for End User's use only and may not be sold, redistributed or otherwise used for commercial purposes. All illustrations and images included in CareNotes?? are the copyrighted property of [employer] or [employer]. The above information is an pharmacist's aide only. It is not intended as medical advice for individual conditions or treatments. Talk to your doctor, nurse or pharmacist before following any medical regimen to see if it is safe and effective for you. documented in this encounter Medications at Time [...] as of this encounter Progress Notes * Robyn Badillo APRN-CNP - 06/26/2015 11:45 AM CDT [facility] Urgent Care PCP: Sveta Terry MD CHIEF COMPLAINT: Right knee pain. SUBJECTIVE: Lucretia Rodriguez is a 49 y.o. female who presents to the Urgent Care today with complaints of right knee pain. States that she slipped and fell 3 days ago. At that time there was a small abrasion onthe knee that the patient cleaned with hydrogen peroxide and then applied neosporin. Since the fallshe has been walking with a limp. Patient has not tried ice or wrap. Patient does report a history of high blood pressure, but states that it is normally controlled. However, while patient reports taking her blood pressure medicine this morning, she does report missing multiple doses of her medication this week. Past Medical History Diagnosis Date ??? Heart attack 2010 ??? HTN (hypertension) ??? Hyperlipemia ??? Multiple sclerosis 2005 ??? H/O heart artery stent 2010 [id number] LAD( ) [facility] ??? H/O laparoscopic adjustable [...] ??? Endometrial ablation 2006 for heavy menses. Family History Problem Relation Age of Onset ??? Cancer Maternal Grandmother laranyx ??? Cancer Maternal Grandfather lung ??? Diabetes Sister ??? Heart Failure Father 48 heart attack ??? Heart Failure Mother 63 heart attack ??? Hypercholesterolemia Mother ??? Hypertension Sister ??? Colon Cancer after age 50 or unknown Maternal Uncle ??? Cancer Sister ??? Migraine Sister History Substance Use Topics ??? Smoking status: Current Every Day Smoker -- 0.25 packs/day for 30 years Types: Cigarettes Start date: 08/18/2013 ??? Smokeless tobacco: Never Used ??? Alcohol Use: Yes Comment: Rarely Current Outpatient Prescriptions on File Prior to Encounter Medication Sig Dispense Refill ??? meloxicam (MOBIC) 15 MG tablet TAKE ONE TABLET BY MOUTH ONCE DAILY 90 Tab 1 ??? metoprolol tartrate (LOPRESSOR) 50 MG tablet TAKE ONE TABLET BY MOUTH TWICE A DAY 180 Tab 1 ??? metoclopramide, disintegrating, (METOZOLV ODT) 10 MG tablet Take 1 Tab by mouth every 6 hours as needed for Nausea/Vomiting 20 Tab 0 ??? citalopram (CELEXA) 20 MG tablet Take 1 Tab by mouth once daily 30 Tab 3 ??? levothyroxine (SYNTHROID) 88 MCG tablet Take 1 Tab by mouth daily before breakfast 30 Tab 3 ??? atorvastatin (LIPITOR) 20 MG tablet Take 1 Tab by mouth at bedtime. 30 Tab 2 ??? lisinopril (PRINIVIL; ZESTRIL) [...] Take 2,000 Units by mouth once daily. ??? phentermine (IONAMINE) 15 MG capsule Take 15 mg by mouth once daily. ??? topiramate (TOPAMAX) 25 MG tablet Take 25 mg by mouth once daily. No current facility-administered medications on file prior to encounter. Allergies Allergen Reactions ??? Sulfa Drugs ??? Latex Review of Systems - History obtained from the patient General ROS: negative for - chills or fever Musculoskeletal ROS: positive for - gait disturbance, joint pain and joint swelling in the right knee. Neurological ROS: negative OBJECTIVE: Vitals: 06/26/15 1104 06/26/15 1137 BP: 184/102 190/106 Pulse: 73 Temp: 97.5 ??F Resp: 18 Weight: 102.059 kg (225 lb) SpO2: 99% Pain Assessment Pain Score: Two Pain Loc: Knee Pain Edu?: Yes Appearance alert, well appearing, and in no distress and oriented to person, place, and time Chest clear to auscultation, no wheezes, rales or rhonchi, symmetric air entry CVS exam normal rate and regular rhythm Musculoskeletal exam Right knee. Mild swelling noted. Full ROM of right knee but painful with flexion. Tender to palpation over patella and distal femur. Pain with ambulation. No laxity, no instability. Skin exam Right knee: 2cm scabbed area with approximately a 1cm surrounding ring of erythema. Warm to the touch, no purulent drainage noted. Xray: STUDY TEXT Right Knee 4 Views INDICATION: Fall 4 days previous, right knee pain, initial encounter FINDINGS: No fracture or dislocation is identified. There is a small right knee effusion. Small osteophytes are present consistent with mild osteoarthritis. Signed by: Chitra Celeste MD on 06/26/2015 12:05 PM ASSESSMENT: ICD-10-CM ICD-9-CM 1. Right knee injury, initial encounter S89.91XA 959.7 XR KNEE 4+ VW RIGHT 2. Cellulitis of knee, right L03.115 682.6 PLAN: Orders Placed This Encounter ??? XR KNEE 4+ VW RIGHT Standing Status: Future Number of Occurrences: 1 Standing Expiration Date: 06/26/2016 ??? cephALEXin (KEFLEX) 500 MG capsule Sig: Take 1 Cap by mouth 4 times daily for 10 days Dispense: 40 Cap Refill: 0 Dr. Yuridia Black MD collaborating physician Take all antibiotics as prescribed. Keep area of cellulitis clean with a mild soap. If scab comes off, cover with bandage. Follow up with Sveta Terry MD in 3-5 days or sooner if symptoms worsen or fail to respond. AVS reviewed with patient. The Patient indicates understanding of these issues and agrees with the plan. Patient discharged to Home. documented in this encounter Plan of Treatment Upcoming Encounters Date Type Department Care Team (Late st Contact Info) Description 09/27/2024 2:20 PM PLUG ASSEMBLER Office Visit [facility] Health Neurosciences [address] [facility] [address] [place] [phone] [place] [address] [facility] [address] [place] [phone] 09/28/2024 1:00 PM PLUG ASSEMBLER Office Visit [facility] [place] [address] [address], [address] [place] [address] [place] [address] [address] [place] [address] documented as of this encounter Goals Goal Patient Goal Type Associated Problems Recent Progress Patient-Stated? Author Blood Pressure < 140/90 Blood Pressure 102/69(2022 11:30 AM PLUG ASSEMBLER) No Melinda Newsome Quit smoking / using tobacco Lifestyle No Melinda Newsome documented as of this encounter Results * XR KNEE 4+ VW RIGHT (06/26/2015 [...] present consistent with mild osteoarthritis. Robyn Badillo APPLICATION DEVELOPMENT SPECIALIST-TURN SEWER DIAGNOSTIC IMAGI NG ORDERABLES documented in this encounter Visit Diagnoses Diagnosis Cellulitis of knee, right- Primary Cellulitis and abscess of leg, except foot Right knee injury, initial encounter Fall on same level from slipping, initial encounter- Primary Right knee injury, initial encounter documented in this encounter Care Teams Hat Sprayer Relationship Specialty Start Date End Date Sveta Rai MD PCP - General Internal Medicine 02/22/13 12/07/16 Stevenson Almanza MD Neurology 08/16/14 documented as of this encounter
--- OUTSIDE RECORDS SUMMARY | 2024-09-18 09:35 | XMS_ITS | Encounter Summary ---
Author Organization [facility] Health Address [address] [facility] [place] [address] Care Team Providers Care Overedge Sewer Name Role Phone Sveta Rai MD Primary Care Provider [phone] Stevenson Almanza MD Unavailable [phone] Reason for Visit * Reason Onset Date Comments Question 11/16/2015 Encounter Details Date Type Department Care Team (Late st Contact Info) Description 11/16/2015 Telephone [facility] Neurosciences [address] [facility] [address] [place] [address] [place] [address] [facility] [address] [place] [address] Question Social History Tobacco Use Types Packs/Day Years [...] encounter Miscellaneous Notes * Telephone Encounter - Myranda Lindsey - 11/16/2015 12:51 PM PAN WASHER Informed pt that script was sent to pharmacy. WASHER * Telephone Encounter - Myranda Lindsey - 11/16/2015 12:26 PM PAN WASHER Pt did not have enough to finish tape. Please check and sign pending order. Thanks. WASHER * Telephone Encounter - Stevenson Almanza MD - 11/16/2015 11:42 AM PAN WASHER She should be completing 100 mg a day. Go to 60 x 2, 40 x 2, 20 x 2 10 x 1 and stop WASHER * Telephone Encounter - Myranda Lindsey - 11/16/2015 9:03 AM PAN WASHER Pt states that she has one day left for her Prednisone. Pt is wanting to know if she is stopping it cold turkey or is she supposed to taper off. Please advise. WASHER documented in this encounter Plan of Treatment Upcoming Encounters Date Type Department Care Team (Late st Contact Info) Description 09/27/2024 2:20 PM PAN WASHER Office Visit [facility] Health Neurosciences [address] [facility] [address] [place] [address] [place] [address] [facility] [address] [place] [phone] 09/28/2024 1:00 PM PAN WASHER Office Visit [facility] - [address] [address] Barrett [facility] [address] [place] [address] [place] [address] [address] [facility] [address] [place] [address] documented as of this encounter Goals Goal Patient Goal Type Associated Problems Recent Progress Patient-Stated? Author Blood Pressure < 140/90 Blood Pressure 102/69(2022 11:30 AM PAN WASHER) No Melinda Newsome Quit smoking / using tobacco Lifestyle No Melinda Newsome documented as of this encounter Visit Diagnoses Not on filedocumented in this encounter Care Teams Overedge Sewer Relationship Specialty Start Date End Date Sveta Rai MD PCP - General Internal Medicine 02/22/13 12/07/16 Stevenson Almanza MD Neurology 08/16/14 documented as of this encounter
--- OUTSIDE RECORDS SUMMARY | 2024-09-18 09:35 | XMS_ITS | Encounter Summary ---
Author Organization [facility] Health Address [address] [place] [address] Care Team Providers Care Horse Racetrack Manager Name Role Phone Sveta Rai MD Primary Care Provider [phone] Stevenson Almanza MD Unavailable [phone] Reason for Visit * Reason Onset Date Comments Results 11/15/2015 Encounter Details Date Type Department Care Team (Late st Contact Info) Description 11/15/2015 Telephone [facility] Neurosciences [address] [facility] [address] [place] [address] [place] [address] [facility] [address] [place] [address] Results Social History Tobacco Use Types Packs/Day [...] encounter Miscellaneous Notes * Telephone Encounter - Colleen Pacheco MA - 11/16/2015 8:59 AM CST Left detailed message of doctors response. OPERATOR * Telephone Encounter - Stevenson Almanza MD - 11/15/2015 1:51 PM LINE OPERATOR Neck is OK. Brain with MS but no active lesions OPERATOR * Telephone Encounter - Colleen Pacheco MA - 11/15/2015 10:06 AM LINE OPERATOR Patient requesting MRI results. Please advise. OPERATOR documented in this encounter Plan of Treatment Upcoming Encounters Date Type Department Care Team (Late st Contact Info) Description 09/27/2024 2:20 PM LINE OPERATOR Office Visit [facility] Health Neurosciences [address] [address] [place] [address] [facility] [address] [place] [address] 09/28/2024 1:00 PM LINE OPERATOR Office Visit [facility] [place] [address] [address] Barrett [facility] [address] [place] [address] [place] [address] [address] [facility] [address] [place] [address] documented as of this encounter Goals Goal Patient Goal Type Associated Problems Recent Progress Patient-Stated? Author Blood Pressure < 140/90 Blood Pressure 102/69(2022 11:30 AM LINE OPERATOR) No Melinda Newsome Quit smoking / using tobacco Lifestyle No Melinda Newsome documented as of this encounter Visit Diagnoses Not on filedocumented in this encounter Care Teams Horse Racetrack Manager Relationship Specialty Start Date End Date Sveta Rai MD PCP - General Internal Medicine 02/22/13 12/07/16 Stevenson Almanza MD Neurology 08/16/14 documented as of this encounter
--- OUTSIDE RECORDS SUMMARY | 2024-09-18 09:35 | XMS_ITS | Encounter Summary ---
Author Organization [facility] Health Address [address] [facility] [place] [address] Care Team Providers Care Director Business Systems Name Role Phone Sveta Rai MD Primary Care Provider Stevenson Almanza MD Unavailable [phone] Encounter Details Date Type Department Care Team (Latest Contact Info) Description 06/26/2015 11:54 AM CDT - 06/26/2015 11:59 PM CDT Hospital Encounter [facility] [address] [place] [address] Robyn Badillo, DIRECTOR OF HOME ECONOMICS-AUTOMATED TELLER MANAGER [address] [place] [address] Discharge Disposition: Home or Self Care Social [...] PO) Take 1,000 mcg by mouth. 12/08/2016 cephALEXin (KEFLEX) 500 MG capsule Take 1 Cap by mouth 4 times daily for 10 days 40 Cap 0 06/26/2015 07/06/2015 citalopram (CELEXA) 20 MG tablet Take 1 [...] Contact Info) Description 09/27/2024 2:20 PM CASE FINISHING MACHINE ADJUSTER Office Visit [facility] Neurosciences [address] [facility] [address] [place] [phone] [place] [address] [facility] [address] [place] [phone] 09/28/2024 1:00 PM CASE FINISHING MACHINE ADJUSTER Office Visit [facility] - [address] [address] Barrett, [facility] [address] [place] [address] [place] [address] [address] [facility] [address] [place] [address] documented as of this encounter Goals Goal Patient Goal Type Associated Problems Recent Progress Patient-Stated? Author Blood Pressure < 140/90 Blood Pressure 102/69(2022 11:30 AM CASE FINISHING MACHINE ADJUSTER) No Melinda Newsome Quit smoking / using tobacco Lifestyle No Melinda Newsome documented as of this encounter Procedures Procedure Name Priority Date/Time Associated Diagnosis Comments XR KNEE RIGHT 4VW OR MORE STAT 06/26/2015 12:02 PM CDT Right knee injury, initial encounter documented in this encounter Results * XR KNEE 4+ [...] present consistent with mild osteoarthritis. Robyn Badillo DIRECTOR OF HOME ECONOMICS-AUTOMATED TELLER MANAGER DIAGNOSTIC IMAGI NG ORDERABLES documented in this encounter Visit Diagnoses Diagnosis Fall on same level from slipping, initial encounter- Primary Right knee injury, initial encounter documented in this encounter Care Teams Director Business Systems Relationship Specialty Start Date End Date Sveta Rai MD PCP - General Internal Medicine 02/22/13 12/07/16 Stevenson Almanza MD Neurology 08/16/14 documented as of this encounter
--- OUTSIDE RECORDS SUMMARY | 2024-09-18 09:35 | XMS_ITS | Encounter Summary ---
Author Organization [facility] Address [address] [place] [address] Care Team Providers Care Patient Financial Advocate Name Role Phone Sveta Rai MD Primary Care Provider [phone] Stevenson Almanza MD Unavailable [phone] Reason for Visit * Reason Comments Hypertension Hyperlipidemia Pre-diabetes Thyroid Problem Encounter Details Date Type Department Care Team (Late st Contact Info) Description 01/23/2015 2:00 PM CDT Office Visit [facility] - Family Medicine [address] [place] [address] Sveta Rai MD [address] [place] [address] DR NOONAN [address] [place] [address] HTN (hypertension) (Primary Dx); Prediabetes; Mixed hyperlipidemia; Hypothyroidism; Major depression Social History Tobacco Use Types Packs/Day Years [...] Sign Reading Time Taken Comments Blood Pressure 132/88 01/23/2015 1:54 PM CDT Pulse 70 01/23/2015 1:54 PM CDT Temperature - - Respiratory Rate 16 01/23/2015 1:54 PM CDT Oxygen Saturation - - Inhaled Oxygen Concentration - - Weight 86.6 kg (191 lb) 01/23/2015 1:54 PM CDT Height 162.6 cm (5' 4.02 ) 01/23/2015 1:54 PM CD T Body Mass Index 32.77 01/23/2015 1:54 PM CDT documented in this encounter Functional [...] Progress Notes * Sveta Rai MD - 01/23/2015 2:11 PM CDT SUBJECTIVE: Lucretia Rodriguez is a 49 y.o. female with Chief Complaint Patient presents with ??? Hypertension ??? Hyperlipidemia ??? Pre-diabetes ??? Thyroid Problem HPI: The patient is here to followup on hypertension hyperlipidemia pre diabetes and hypothyroid. - blood pressure is stable on metoprolol and lisinopril. - hypothyroid: in 88 mcg levothyroxine, she just it to her labs. The complains about constipation. Denies any palpitation. - hyperlipidemia: she is on Lipitor 20 mg, denies any muscle ache. - recent colonoscopy 2 months ago with 2 hyperplastic polyps resected. She will be due for another colonoscopy in 5 years. - pre diabetes managed with diet. A1c pending. Past Medical History Diagnosis Date ??? Heart attack 2010 ??? HTN (hypertension) ??? Hyperlipemia ??? Multiple sclerosis 2006 ??? H/O heart artery stent 2010 [id number] LAD( ) [facility] ??? H/O laparoscopic adjustable gastric banding 2009 ??? S/P tonsillectomy ??? Migraine ??? Hypothyroid ??? Depressive disorder, not elsewhere classified ??? Generalized anxiety disorder ??? Tension headache ??? High blood pressure ??? Heart attack ??? Stomach ulcer ??? Migraine ??? High cholesterol ??? Anemia ??? Thyroid disease History Social History ??? Marital Status: Spouse Name: N/A Number of Children: 2 ??? Years of Education: N/A Occupational History ??? [employer] Social History Main Topics ??? Smoking status: Current Every Day Smoker -- 0.50 packs/day for 30 years Types: Cigarettes Start date: 08/18/2013 ??? Smokeless tobacco: Never Used ??? Alcohol Use: Yes Comment: Rarely ??? Drug Use: No ??? [...] Uncle ??? Cancer Sister ??? Migraine Sister Allergies Allergen Reactions ??? Sulfa Drugs ??? Latex Review of Systems: General ROS: negative for - chills, fatigue or fever Psychological ROS: negative for - anxiety or depression Respiratory ROS: no cough, shortness of breath, or wheezing Cardiovascular ROS: no chest pain or dyspnea on exertion Gastrointestinal ROS: no abdominal pain, change in bowel habits, or black or bloody stools Genito-Urinary ROS: no dysuria, trouble voiding, or hematuria Musculoskeletal ROS: negative for - joint pain Neurological ROS: no TIA or stroke symptoms OBJECTIVE: BP 132/88 mmHg Pulse 70 Resp 16 Wt 86.637 kg (191 lb) BMI 32.77 kg/m2 General: alert, cooperative, no distress Eyes: PERRLA, EOMI, Sclera and conjunctiva clear Neck: range of motion is intact, no [...] Cranial nerves 2-12 andsensation grossly intact. ASSESSMENT: HTN (hypertension) - Plan: lisinopril (PRINIVIL; ZESTRIL) 40 MG tablet, metoprolol tartrate IR (LOPRESSOR) 50 MG tablet Prediabetes Mixed hyperlipidemia - Plan: atorvastatin (LIPITOR) 20 MG tablet Hypothyroidism - Plan: levothyroxine (SYNTHROID) 88 MCG tablet Major depression - Plan: citalopram (CELEXA) 20 MG tablet PLAN: Orders Placed This Encounter ??? atorvastatin (LIPITOR) 20 MG tablet Sig: Take 1 Tab by mouth at bedtime. Dispense: 30 Tab Refill: 2 ??? citalopram (CELEXA) 20 MG tablet Sig: Take 1 Tab by mouth once daily. Dispense: 30 Tab Refill: 0 ??? lisinopril (PRINIVIL; ZESTRIL) 40 MG tablet Sig: Take 1 Tab by mouth once daily. Dispense: 30 Tab Refill: 3 ??? levothyroxine (SYNTHROID) 88 MCG tablet Sig: Take 1 Tab by mouth daily before breakfast. Dispense: 30 Tab Refill: 5 ??? metoprolol tartrate IR (LOPRESSOR) 50 MG tablet Sig: Take 1 Tab by mouth 2 times daily. Dispense: 60 Tab Refill: 3 Take 1 pill in am and 0.5 pill in the evening. followup in 6 months for physical. further recommendation pending blood test results. documented in this encounter Miscellaneous Notes * Addendum Note - Melinda Harris - 01/23/2015 3:41 PM CDTAddended by: MELINDA HARRIS on: 01/23/2015 03:41 PM Modules accepted: Orders documented in this encounter Plan of Treatment Upcoming Encounters Date Type Department Care Team (Late st Contact Info) Description 09/27/2024 2:20 PM REAL ESTATE SALES SUPERVISOR Office Visit [place] [id number] [address] [place] [address] [facility] [address] [address] [address] [place] [phone] 09/28/2024 1:00 PM REAL ESTATE SALES SUPERVISOR Office Visit [facility] - [address] [address] [place] [address] [place] [address] [facility] [address] [place] [address] documented as of this encounter Goals Goal Patient Goal Type Associated Problems Recent Progress Patient-Stated? Author Blood Pressure < 140/90 Blood Pressure 102/69(2022 11:30 AM REAL ESTATE SALES SUPERVISOR) No Melinda Harris Quit smoking / using tobacco Lifestyle No Melinda Harris documented as of this encounter Visit Diagnoses Diagnosis HTN (hypertension)- Primary Unspecified essential hypertension Prediabetes Other abnormal glucose Mixed hyperlipidemia Hypothyroidism Unspecified hypothyroidism Major depression Major depressive disorder, single episode, unspecified documented in this encounter Care Teams Patient Financial Advocate Relationship Specialty Start Date End Date Sveta Rai MD PCP - General Internal Medicine 02/22/13 12/07/16 Stevenson Almanza MD Neurology 08/16/14 documented as of this encounter
--- OUTSIDE RECORDS SUMMARY | 2024-09-18 09:35 | XMS_ITS | Encounter Summary ---
Author Organization [facility] Address [address] [facility] [place] [address] Care Team Providers Care Bilingual Sales Consultant Name Role Phone Sveta Rai MD Primary Care Provider Stevenson Almanza MD Unavailable [phone] Reason for Visit * Reason Comments Refill Request Encounter Details Date Type Department Care Team (Late st Contact Info) Description 07/22/2015 Refill [facility] - Family Medicine [address] [place] [address] Sveta Rai MD [address] [place] [address] DR NOONAN [address] [place] [address] Refill Request Social History Tobacco Use Types [...] encounter Miscellaneous Notes * Telephone Encounter - Lai Kalli - 07/22/2015 11:08 AM CST Lucretia Rodriguez Allergies Allergen Reactions ??? Sulfa Drugs ??? Latex Requested Prescriptions Pending Prescriptions Disp Refills ??? citalopram (CELEXA) 20 MG tablet [Pharmacy Med Name: CITALOPRAM HBR 20 MG TABLET] 90 Tab 1 Sig: TAKE ONE TABLET BY MOUTH ONCE DAILY Last Refill: 06/27/15 Last OV: 06/27/15 Next OV: 07/31/15 TY ASSESSOR documented in this encounter Plan of Treatment Upcoming Encounters Date Type Department Care Team (Late st Contact Info) Description 09/27/2024 2:20 PM DEPUTY ASSESSOR Office Visit [facility] Neurosciences [address] [address] [place] [address] [facility] [address] [place] [phone] 09/28/2024 1:00 PM DEPUTY ASSESSOR Office Visit [facility] [place] [address] Michele Barrett, [facility] [address] [place] [phone] [place] [address] [address] [facility] [address] [place] [address] documented as of this encounter Goals Goal Patient Goal Type Associated Problems Recent Progress Patient-Stated? Author Blood Pressure < 140/90 Blood Pressure 102/69(2022 11:30 AM DEPUTY ASSESSOR) No Melinda Newsome Quit smoking / using tobacco Lifestyle No Melinda Newsome documented as of this encounter Visit Diagnoses Diagnosis Mixed hyperlipidemia- Primary documented in this encounter Care Teams Bilingual Sales Consultant Relationship Specialty Start Date End Date Sveta Rai MD PCP - General Internal Medicine 02/22/13 12/07/16 Stevenson Almanza MD Neurology 08/16/14 documented as of this encounter
--- OUTSIDE RECORDS SUMMARY | 2024-09-18 09:35 | XMS_ITS | Encounter Summary ---
Author Organization [facility] Address [address] [place] [address] Care Team Providers Care Runner On Name Role Phone Sveta Rai MD Primary Care Provider Stevenson Almanza MD Unavailable [phone] Dequan Baxter MD Unavailable [phone] Anuj Schwartz MD Primary Care Provider [phone] Reason for Visit * Reason Comments Refill Request Encounter Details Date Type Department Care Team (Late st Contact Info) Description 06/17/2015 Refill [facility] - Family Medicine [address] [facility] [address] [place] [address] Chitra Carranza APRN-PRIMER WATERPROOFING MACHINE ADJUSTER [address] [facility] [address] [place] [address] Refill Request Social History Tobacco Use Types [...] encounter Miscellaneous Notes * Telephone Encounter - Soraya Moran - 06/18/2015 1:21 PM CDT Lucretia Rodriguez Allergies Allergen Reactions ??? Sulfa Drugs ??? Latex Requested Prescriptions Pending Prescriptions Disp Refills ??? meloxicam (MOBIC) 15 MG tablet [Pharmacy Med Name: MELOXICAM 15 MG TABLET] 90 Tab 1 Sig: TAKE ONE TABLET BY MOUTH ONCE DAILY Last Refill: 02/22/2015 Last OV: 02/22/2015 (Ro) Next OV:07/26/2015 documented in this encounter Plan of Treatment Upcoming Encounters Date Type Department Care Team (Late st Contact Info) Description 09/27/2024 2:20 PM COMMAND AND CONTROL Office Visit [facility] Neurosciences [address] [facility] [address] [place] [address] [place] [address] [facility] [address] [place] [address] 09/28/2024 1:00 PM COMMAND AND CONTROL Office Visit [facility] [place] [address] Michele Barrett [facility] [address] [place] [address] [place] [address] [address] [facility] [address] [place] [address] documented as of this encounter Goals Goal Patient Goal Type Associated Problems Recent Progress Patient-Stated? Author Blood Pressure < 140/90 Blood Pressure 102/69(2022 11:30 AM COMMAND AND CONTROL) No Melinda Newsome Quit smoking / using tobacco Lifestyle No Melinda Newsome documented as of this encounter Visit Diagnoses Not on filedocumented in this encounter Care Teams Runner On Relationship Specialty Start Date End Date Sveta Rai MD PCP - General Internal Medicine 02/22/13 12/07/16 Anuj Schwartz [place] [address] [place] [address] [place] [address] PCP - General Family Medicine 12/08/16 10/25/18 Stevenson Almanza MD Neurology 08/16/14 Dequ[place] [id number] [place], [place] [id number] Pulmonary Disease 02/14/16 documented as of this encounter
--- OUTSIDE RECORDS SUMMARY | 2024-09-18 09:35 | XMS_ITS | Encounter Summary ---
Author Organization [facility] Address [address] [facility] [place] [address] Care Team Providers Care Manager Plumbing Name Role Phone Sveta Rai MD Primary Care Provider Stevenson Almanza MD Unavailable [phone] Reason for Visit * Reason Comments Wellness Exam Encounter Details Date Type Department Care Team (Latest Contact Info) Description 09/18/2015 2:00 PM POWER PLANT OPERATORS SUPERVISOR Office Visit [facility] - Family Medicine [id number] [place] [address] Sveta Rai MD [address] [place] [address] DR NOONAN [address] [place] [address] Encounter for gynecological examination without abnormal finding (Primary Dx); Screening for breast cancer; Screening for cervical cancer Social History Tobacco Use Types Packs/Day Years [...] Sign Reading Time Taken Comments Blood Pressure 132/92 09/18/2015 2:34 PM POWER PLANT OPERATORS SUPERVISOR Pulse 56 09/18/2015 2:34 PM POWER PLANT OPERATORS SUPERVISOR Temperature - - Respiratory Rate 13 09/18/2015 2:34 PM POWER PLANT OPERATORS SUPERVISOR Oxygen Saturation - - Inhaled Oxygen Concentration - - Weight 112.9 kg (249 lb) 09/18/2015 2:34 PM POWER PLANT OPERATORS SUPERVISOR Height 162.6 cm (5' 4 ) 09/18/2015 2:34 PM POWER PLANT OPERATORS SUPERVISOR Body Mass Index 42.74 09/18/2015 2:34 PM POWER PLANT OPERATORS SUPERVISOR documented in this encounter Functional Status Functional [...] Instructions * Patient Instructions* Edith Cohn - 09/18/2015 2:35 PM POWER PLANT OPERATORS SUPERVISOR Caring for Your High Blood Pressure Healthy [...] Where can I go for more information? [place] [employer] National Center: http://www.americanheart.org 1. In the top header, click ???Conditions?? . 2. In the top header, click ???high blood pressure.?? 3. For a printable blood pressure tracker, scroll toward the bottom of the page to Related Tools, and click ???HBP Trackers.?? 0-507-WTP-USA-1 or ( ) National Heart, Lung and Blood [place]: http://www.nhlbi.nih.gov/health/infoctr/index.htm Where can I go for support and more information? There are many ways to quit smoking. Some may work better for you than others. Your caregiver can help you find the best plan to quit. [employer] Phone: 1-156-DXLT-NOW ( ) www.mohchiee.[employer] [place] [employer] Phone: Phone: www.lung.org Instant Rewards [...] you to quit smoking. -Taken from www.smokefree.gov R PLANT OPERATORS SUPERVISOR documented in this encounter Progress Notes * Sveta Rai MD - 09/24/2015 1:00 PM CSTQuick Note: Negative pap smear. R PLANT OPERATORS SUPERVISOR * Sveta Rai MD - 09/18/2015 2:40 PM CST SUBJECTIVE: 50 y.o. female for annual routine Pap and checkup. History Social History ??? Marital Status: Spouse Name: N/A Number of Children: 2 ??? Years of Education: N/A Occupational History ??? [employer] Social History Main Topics ??? Smoking status: Current Every Day Smoker -- 0.25 packs/day for 30 years Types: Cigarettes Start date: 08/18/2013 ??? Smokeless tobacco: Never Used ??? Alcohol Use: 0.0 oz/week 0 Not specified per week Comment: Rarely ??? Drug Use: No ??? Sexual Activity: Partners: Male Other Topics Concern ??? Exercise No Social History Narrative Past Surgical History Procedure Laterality Date ??? [...] side ??? Ulnar nerve release R side Allergies: Sulfa drugs and Latex No LMP recorded. Patient is not currently having periods (Reason: Menopause). ROS: Feeling well. No dyspnea or chest pain on exertion. No abdominal pain, change in bowel habits,black or bloody stools. No urinary tract symptoms. B2B APPOINTMENT SETTER ROS: no breast pain or new or enlarging lumps on self exam, no vaginal bleeding since 2005 after endometrial ablation. c/o hot flashes. No neurological complaints. OBJECTIVE: The patient appears well, alert, oriented x 3, in no distress. Blood pressure 132/92, pulse 56, resp. rate 13, height 1.626 m (5' 4 ), weight 112.946 kg (249 lb). Wt Readings from Last 3 Encounters: 09/18/15 112.946 kg (249 lb) 08/23/15 107.049 kg (236 lb) 07/31/15 109.317 kg (241 lb) ENT: Normal. Neck: Supple. No adenopathy or thyromegaly. Eyes: WILLI. EOM's intact. No papilledema. Chest: Lungs are clear, good air entry, no wheezes, rhonchi or rales. Heart: S1 and S2 normal, no murmurs, regular rate and rhythm. Abdomen: Abdomen soft without tenderness, guarding, mass or organomegaly. Extremities: Extremities show no edema, normal peripheral pulses. Neurological: Neuro: Cranial nerves and fundi are normal. No bruits. Normal deep tendon reflexes. BREAST EXAM: breasts appear normal, no suspicious masses, no skin or nipple changes or axillary nodes PELVIC EXAM: normal external genitalia, vulva, vagina, cervix, uterus and adnexa ASSESSMENT: Encounter Diagnoses Name Primary? Encounter for gynecological examination without abnormal finding Yes ??? Screening for breast cancer ??? Screening for cervical cancer PLAN: Orders Placed This Encounter ??? MAMMO SCREENING DIGITAL IMAGE BILAT Standing Status: Future Number of Occurrences: Standing Expiration Date: 09/18/2016 Order Specific Question: Reason for Exam Answer: screen Order Specific Question: Perform Diagnostic mamm if screening abnormal? Answer: Yes Order Specific Question: Perform US breast if screening mamm abnormal? Answer: Yes Order Specific Question: Perform Breast Biopsy if screening mamm is abnormal? Answer: Yes ??? URINALYSIS - POINT OF CARE ??? PAP SMEAR IG CT+GC HPV HR (PO REF LAB) Order Specific Question: Pap Source? Answer: Cervical Order Specific Question: Collection Method? Answer: [place]-Spatula Return in about 1 year (around 09/18/2016), or if symptoms worsen or fail to improve. R PLANT OPERATORS SUPERVISOR documented in this encounter Plan of Treatment Upcoming Encounters Date Type Department Care Team (Late st Contact Info) Description 09/27/2024 2:20 PM POWER PLANT OPERATORS SUPERVISOR Office Visit [facility] Neurosciences [address] [facility] [address] [place] [address] [place] [address] [facility] [address] [place] [address] 09/28/2024 1:00 PM POWER PLANT OPERATORS SUPERVISOR Office Visit [facility] [place] [address] Michele Barrett, [facility] [address] [place] [address] [place] [address] [address] [facility] [address] [place] [address] Scheduled Orders Name Type Priority Associated Diagnoses Orde r Schedule URINALYSIS - POINT OF CARE Point of Care Testing Routine Encounter for gynecological examination without abnormal finding Ordered: 09/18/2015 documented as of this encounter Goals Goal Patient Goal Type Associated Problems Recent Progress Patient-Stated? Author Blood Pressure < 140/90 Blood Pressure 102/69(2022 11:30 AM POWER PLANT OPERATORS SUPERVISOR) No Melinda Newsome Quit smoking / using tobacco Lifestyle No Melinda Newsome documented as of this encounter Procedures Procedure Name Priority Date/Time Associated Diagnosis Comments PAP IG LB CT+GC+HPV HR Routine 09/18/2015 3:09 PM POWER PLANT OPERATORS SUPERVISOR Screening for cervical cancer documented in this encounter Results * PAP SMEAR IG CT+GC HPV HR (PO REF LAB) (09/18/2015 3:09 PM POWER PLANT OPERATORS SUPERVISOR) Diagnosis [facility] INSURANCE BILL Comment:NEGATIVE FOR INTRAEP ITHELIAL LESION AND MALIGNANCY. Specimen Adequacy [facility] INSURANCE BILL Comment: Satisfactory for evaluation. ??Endocervical and/or squamous metaplastic cells (endocervical component) are present. Clinician Provided ICD10 [facility] INSURANCE BILL Comment: Z01.419 Z12.39 Z12.4 Performed by [facility] INSURANCE BILL Comment:Allie Cole, Cyto technologist Comment [...] PAPANICOLAOU TECHNIQUE / Unknown 09/18/2015 3:09 PM POWER PLANT OPERATORS SUPERVISOR 09/19/2015 2:26 AM POWER PLANT OPERATORS SUPERVISOR Narrative [facility] INSURANCE BILL - 09/21/2015 4:10 PM POWER PLANT OPERATORS SUPERVISOR Source.............Cervical No. of containers..01 CYTYC Thin Prep Vial Resulting Agency Comment [facility] [address] [place] [address] ??Fabrice Franco [id number] Sveta Gross MD LAB - PATHOLOGY/CYT OLOGY ORDERABLES [facility] INSURANCE BILL documented in this encounter Visit Diagnoses Diagnosis Encounter for gynecological examination without abnormal finding- Primary Routine gynecological examination Screening for cervical cancer Screening for malignant neoplasm of the cervix documented in this encounter Care Teams Manager Plumbing Relationship Specialty Start Date End Date Sveta Rai MD PCP - General Internal Medicine 02/22/13 12/07/16 Stevenson Almanza MD Neurology 08/16/14 documented as of this encounter
--- OUTSIDE RECORDS SUMMARY | 2024-09-18 09:35 | XMS_ITS | Encounter Summary ---
Author Organization [facility] Address [address] [place] [address] Care Team Providers Care Hobbing Press Operator Name Role Phone Sveta Rai MD Primary Care Provider Stevenson Almanza MD Unavailable [phone] Reason for Visit * Reason Comments Pain Head Pt sent in from [facility] for evaluation of possible diverticulitis. Pt states LAKE, back ache, nausea, and achey x Thursday. Pt denies vomiting or diarrhea. Pt states last BM today Encounter Details Date Type Department Care Team (Late st Contact Info) Description 03/28/2015 7:33 PM CDT - 03/29/2015 12:47 AM CDT Emergency ER at [address] [address] Lindsay Jacobson MD [address] [place] [address] [id number] Abdominal pain, left lower quadrant; Headache(784.0); Midline low back pain without sciatica Discharge Disposition: Home or Self Care Social [...] Sign Reading Time Taken Comments Blood Pressure 124/63 03/29/2015 12:37 AM CDT Pulse 59 03/29/2015 12:37 AM CDT Temperature 36.8 ??C (98.3 ??F) 03/29/2015 12:37 AM C DT Respiratory Rate 16 03/29/2015 12:37 AM CDT Oxygen Saturation 100% 03/29/2015 12:37 AM CDT Inhaled Oxygen Concentration - - Weight 87.1 kg (192 lb) 03/28/2015 7:05 PM CDT Height 162.6 cm (5' 4.02 ) 03/28/2015 7:05 PM CD T Body Mass Index 32.94 03/28/2015 7:05 PM CDT documented in this encounter Functional [...] this encounter Discharge Instructions * Discharge Instructions* Lindsay Jacobson MD - 03/28/2015 11:17 PM CDT Images from the original note were not included. Abdominal Pain Abdominal pain can be caused by many things. Your caregiver decides the seriousness of your pain byan examination and possibly blood tests and X-rays. Many cases can be observed and treated at home.Most abdominal pain is not caused by a disease and will probably improve without treatment. However, in many cases, more time must pass before a clear cause of the pain can be found. Before that point, it may not be known if you need more testing, or if hospitalization or surgery is needed. HOME CARE INSTRUCTIONS ?? Do not take laxatives unless directed by your caregiver. ?? Take pain medicine only as directed by your caregiver. ?? Only take [id number] or prescription medicines for pain, discomfort, or fever as directed by your caregiver. ?? Try a clear liquid diet (broth, tea, or water) for as long as directed by your caregiver. Slowlymove to a bland diet as tolerated. SEEK IMMEDIATE MEDICAL CARE IF: ?? The pain does not go away. ?? You have a fever. ?? You keep throwing up (vomiting). ?? The pain is felt only in portions of the abdomen. Pain in the right side could possibly be appendicitis. In an adult, pain in the left lower portion of the abdomen could be colitis or diverticulitis. ?? You pass bloody or black tarry stools. MAKE SURE YOU: ?? Understand these instructions. ?? Will watch your condition. ?? Will get help right away if you are not doing well or get worse. Document Released: 06/03/2006 Document Revised: 11/15/2012 Document Reviewed: 04/11/2009 ExitCare?? Patient Information ??2014 [employer]. Back Pain, Adult Low back pain is very common. About 1 in 5 people have back pain.??The cause of low back pain is rarely dangerous. The pain often gets better over time.??About half of people with a sudden onset of back pain feel better in just 2 weeks. About 8 in 10 people feel better by 6 weeks. CAUSES Some common causes of back pain include: ?? Strain of the muscles or ligaments supporting the spine. ?? Wear and tear (degeneration) of the spinal discs. ?? Arthritis. ?? Direct injury to the back. DIAGNOSIS Most of the time, the direct cause of low back pain is not known.??However, back pain can be treated effectively even when the exact cause of the pain is unknown.??Answering your caregiver's questions about your overall health and symptoms is one of the most accurate ways to make sure the cause of your pain is not dangerous. If your caregiver needs more information, he or she may order lab work or imaging tests (X-rays or MRIs).??However, even if imaging tests show changes in your back, this usually does not require surgery. HOME CARE INSTRUCTIONS For many people, back pain returns.??Since low back pain is rarely dangerous, it is often a condition that people can learn to manage??on their own. ?? Remain active. It is stressful on the back to sit or seniour insight manager one place. Do not sit, drive, or seniour insight manager one place for more than 30 minutes at a time. Take short walks on level surfaces as soon as pain allows.??Try to increase the length of time you walk each day. ?? Do not stay in bed.??Resting more than 1 or 2 days can delay your recovery. ?? Do not avoid exercise or work.??Your body is made to move.??It is not dangerous to be active, even though your back may hurt.??Your back will likely heal faster if you return to being active before your pain is gone. ?? Pay attention to your body when you ??bend and lift. Many people have less discomfort??when lifting if they bend their knees, keep the load close to their bodies,??and avoid twisting. Often, the most comfortable positions are those that put less stress on your recovering back. ?? Find a comfortable position to sleep. Use a firm mattress and lie on your side with your knees slightly bent. If you lie on your back, put a pillow under your knees. ?? Only take dqny-lms-mlvbkov or prescription medicines as directed by your caregiver. Zvem-hpj-ycjhwyi medicines to reduce pain and inflammation are often the most helpful.??Your caregiver may prescribe muscle relaxant drugs.??These medicines help dull your pain so you can more quickly return to your normal activities and healthy exercise. ?? Put ice on the injured area. ?? Put ice in a plastic bag. ?? Place a towel between your skin and the bag. ?? Leave the ice on for 15-20 minutes, 3-4 times a day for the first 2 to 3 days. After that, ice and heat may be alternated to reduce pain and spasms. ?? Ask your caregiver about trying back exercises and gentle massage. This may be of some benefit. ?? Avoid feeling anxious or stressed.??Stress increases muscle tension and can worsen back pain.??It is important to recognize when you are anxious or stressed and learn ways to manage it.??Exercise is a great option. SEEK MEDICAL CARE IF: ?? You have pain that is not relieved with rest or medicine. ?? You have pain that does not improve in 1 week. ?? You have new symptoms. ?? You are generally not feeling well. SEEK IMMEDIATE MEDICAL CARE IF: ?? You have pain that radiates from your back into your legs. ?? You develop new bowel or bladder control problems. ?? You have unusual weakness or numbness in your arms or legs. ?? You develop nausea or vomiting. ?? You develop abdominal pain. ?? You feel faint. Document Released: 08/24/2006 Document Revised: 02/22/2013 Document Reviewed: 01/12/2012 ExitCare?? Patient Information ??2014 [employer], [facility]. Headache Headaches are caused by many different problems. Most commonly, headache is caused by muscle tension from an injury, fatigue, or emotional upset. Excessive muscle contractions in the scalp and neck result in a headache that often feels like a tight band around the head. Tension headaches often haveareas of tenderness over the scalp and the back of the neck. These headaches may last for hours, days, or longer, and some may contribute to migraines in those who have migraine problems. Migraines usually cause a throbbing headache, which is made worse by activity. Sometimes only one side of the head hurts. Nausea, vomiting, eye pain, and avoidance of food are common with migraines. Visual symptoms such as light sensitivity, blind spots, or flashing lights may also occur. Loud noises may worsen migraine headaches. Many factors may cause migraine headaches: ?? Emotional stress, lack of sleep, and menstrual periods. ?? Alcohol and some drugs (such as control pills). ?? Diet factors (fasting, caffeine, food preservatives, chocolate). ?? Environmental factors (weather changes, bright lights, odors, smoke). Other causes of headaches include minor injuries to the head. Arthritis in the neck; problems with the jaw, eyes, ears, or nose are also causes of headaches. Allergies, drugs, alcohol, and exposure to smoke can also cause moderate headaches. Rebound headaches can occur if someone uses pain medications for a long period of time and then stops. Less commonly, blood vessel problems in the neck and brain (including stroke) can cause various types of headache. Treatment of headaches includes medicines for pain and relaxation. Ice packs or heat applied to theback of the head and neck help some people. Massaging the shoulders, neck and scalp are often very useful. Relaxation techniques and stretching can help prevent these headaches. Avoid alcohol and cigarette smoking as these tend to make headaches worse. Please see your caregiver if your headache is not better in 2 days. SEEK IMMEDIATE MEDICAL CARE IF: ?? You develop a high fever, chills, or repeated vomiting. ?? You faint or have difficulty with vision. ?? You develop unusual numbness or weakness of your arms or legs. ?? Relief of pain is inadequate with medication, or you develop severe pain. ?? You develop confusion, or neck stiffness. ?? You have a worsening of a headache or do not obtain relief. Document Released: 08/24/2006 Document Revised: 05/05/2012 Document Reviewed: 02/17/2008 ExitCare?? Patient Information ??2011 [employer]. documented in this encounter Medications at Time [...] once daily 30 Tab 3 03/19/2015 06/27/2015 ibuprofen (MOTRIN) 800 MG tablet Take 1 Tab by mouth 3 times daily as needed for Pain 20 Tab 0 03/28/2015 06/18/2015 levothyroxine (SYNTHROID) 88 MCG tablet Take 1 [...] once daily 30 Tab 3 02/22/2015 06/17/2015 metoclopramide, disintegrating, (METOZOLV ODT) 10 MG tablet Take 1 Tab by mouth every 6 hours as needed for Nausea/Vomiting 20 Tab 0 03/28/2015 06/27/2015 metoprolol tartrate IR (LOPRESSOR) 50 MG tabletIndications:HTN [...] daily. 06/27/2015 documented as of this encounter ED Notes * Magda Tinoco RN - 03/29/2015 12:38 AM CDT Pt given discharge instructions and prescriptions. Spoke with pt about all medications. Pt verbalized understanding. Spoke with pt about the need to follow up. Pt reports she will. Pt given a note for work. Pt denies any pain at this time. Pt denies any questions or concerns. Family taking pt home.Gait steady as pt left. * Tess Turner RN - 03/28/2015 8:49 PM CDT Pt ambulatory to RR * Lindsay Jacobson MD - 03/28/2015 8:16 PM CDT Provider contact with the patient: 03/28/2015 20:16 Lucretia Rodriguez [id number] [facility] History Chief Complaint Patient presents with ??? Pain Head Pt sent in from [facility] for evaluation of possible diverticulitis. Pt states LAKE, back ache, nausea, and achey x Thursday. Pt denies vomiting or diarrhea. Pt states last BM today HPI Comments: 8:16 PM Lucretia Ping Rodriguez, a 49 y.o. female with a past medical history that includes--heart attack, HTN, hyperlipidemia--presents to the ER c/o headache in the back of head, pain in lower back, and pain around abd that began 3 days ago.Pt woke up from her sleep feeling very tired nauseous and had chills. Pt denies changing her eating habits. No other complaints or modifying factorsat this time. PCP: Sveta Terry Past Medical History Diagnosis Date ??? Heart attack 2010 ??? HTN (hypertension) ??? Hyperlipemia ??? Multiple sclerosis 2006 ??? H/O heart artery stent 2010 [id number] LAD( ) [facility] ??? H/O laparoscopic adjustable [...] ??? Endometrial ablation 2005 for heavy menses. Family History Problem Relation Age of Onset ??? Cancer Maternal Grandmother laranyx ??? Cancer Maternal Grandfather lung ??? Diabetes Sister ??? Heart Failure Father 48 heart attack ??? Heart Failure Mother 63 heart attack ??? Hypercholesterolemia Mother ??? Hypertension Sister ??? Colon Cancer after age 50 or unknown Maternal Uncle ??? Cancer Sister ??? Migraine Sister History Social History ??? Marital Status: Spouse Name: N/A Number of Children: 2 ??? Years of Education: N/A Occupational History ??? [employer] Social History Main Topics ??? Smoking status: Current Every Day Smoker -- 0.25 packs/day for 30 years Types: Cigarettes Start date: 08/18/2013 ??? Smokeless tobacco: Never Used ??? Alcohol Use: Yes Comment: Rarely ??? Drug Use: No ??? Sexual Activity: Partners: Male Other Topics Concern ??? Exercise No Social History Narrative Review of Systems Review of Systems Constitutional: Negative. Negative for fever and chills. Eyes: Negative. Negative for blurred vision. Respiratory: Negative. Negative for cough and shortness of breath. Cardiovascular: Negative. Negative for chest pain. Gastrointestinal: Positive for nausea. Negative for abdominal pain and diarrhea. Genitourinary: Negative. Negative for dysuria. Musculoskeletal: Positive for back pain. Skin: Negative. Negative for itching and rash. Neurological: Positive for headaches. Negative for dizziness, loss of consciousness and weakness. Psychiatric/Behavioral: Negative. All other systems reviewed and are negative. Physical Exam BP 147/92 mmHg Pulse 80 Temp(Src) 98.4 ??F Resp 25 Ht 1.626 m (5' 4.02 ) Wt 87.091 kg (192 lb) BMI 32.94 kg/m2 SpO2 98% Physical Exam Constitutional: She is oriented to person, place, and time. She appears well- developed and well-nourished. HENT: Head: Normocephalic and atraumatic. Eyes: Conjunctivae and EOM are normal. Neck: Normal range of motion. Neck supple. Cardiovascular: Normal rate and regular rhythm. No murmur heard. Pulmonary/Chest: Effort normal and breath sounds normal. No respiratory distress. She has no wheezes. Abdominal: Soft. She exhibits no distension. There is no tenderness. Musculoskeletal: Normal range of motion. She exhibits tenderness (minimal). She exhibits no edema. Neurological: She is alert and oriented to person, place, and time. Skin: Skin is warm and dry. Psychiatric: She has a normal mood and affect. Her behavior is normal. Nursing note and vitals reviewed. Medications Current Outpatient Prescriptions Medication Sig Dispense Refill ??? ibuprofen (MOTRIN) 800 MG tablet Take 1 Tab by mouth 3 times daily as needed for Pain 20 Tab 0 ??? metoclopramide, disintegrating, (METOZOLV ODT) 10 MG tablet Take 1 Tab by mouth every 6 hours as needed for Nausea/Vomiting 20 Tab 0 ??? citalopram (CELEXA) 20 MG tablet Take 1 Tab by mouth once daily 30 Tab 3 ??? levothyroxine (SYNTHROID) 88 MCG tablet Take 1 Tab by mouth daily before breakfast 30 Tab 3 ??? meloxicam (MOBIC) 15 MG tablet Take [...] Take 2,000 Units by mouth once daily. Procedures Procedures ECG Interpretation ECG Interpretation Lab Interpretation Oxygen Saturation Interpretation The oxygen saturation level is: 99%. The patient was on Room Air for the saturation measurement. Measurement frequency: Spot Check. Oxygen saturation interpretation is Normal. Intervention(s) used: None. Results for orders placed during the hospital encounter of 03/28/15 CBC W AUTO DIFFERENTIAL Result Value Ref Range WBC 8.5 4.4-10.7 x10^9/L WBC Corrected RBC 5.13 3.80-5.20 x10^12/L Hgb 15.1 12.0-15.6 gm/dL HCT 44.9 35.9-45.5 % MCV 87.5 80.7-98.3 fl MCH 29.4 26.7-34.0 pg MCHC 33.6 30.8-35.9 gm/dL Plt Ct 189 153-416 x10^9/L RDW-CV 14.3 12.1-14.9 % MPV 10.4 9.4-12.9 fl Neutro 58.1 44.0-73.0 % Lymph 30.6 20.0-43.0 % [place] 7.2 5.0-13.0 % Eos 3.3 0.0-6.0 % Baso 0.6 0.0-2.0 % Immature Grans 0.2 0-1 % Neutro Abs 4.96 2.01-7.14 x10^9/L Lymph Abs 2.61 1.07-3.94 x10^9/L [place] Abs 0.61 0.26-1.07 x10^9/L Eosin Abs 0.28 0-0.47 x10^9/L Baso Abs 0.05 0-0.08 x10^9/L Immature Grans (Abs) 0.02 0.00-0.06 x10^9/L COMPREHENSIVE METABOLIC PANEL Result Value Ref Range Glucose 83 74-106 mg/dL Sodium 140 136-145 mmol/L Potassium 3.9 3.5-5.1 mmol/L Chloride 108 (*) 98-107 mmol/L CO2 23 22-31 mmol/L Calcium 9.0 8.5-10.1 mg/dL Anion Gap 9 5-15 mmol/L BUN 20 7-21 mg/dL Creatinine 0.74 0.50-1.30 mg/dL Alk Phos 64 38-126 U/L ALT/SGPT 29 12-78 U/L AST/SGOT 22 5-40 U/L Protein Total 7.7 6.4-8.2 gm/dL Albumin 4.0 3.4-5.0 gm/dL Bili Total 0.4 0.2-1.0 mg/dL eGFR MDRD >60 >60 mL/min/1.73m2 eGFR MDRD AFR AMR >60 >60 mL/min/1.73m2 URINALYSIS ROUTINE AUTO Result Value Ref Range Color UA Yellow Straw, Yellow, Dark Yellow Clarity UA Cloudy Specific [place] UA 1.019 1.005-1.030 pH UA 5.5 5.0-8.0 pH Protein UA Negative Negative Blood UA Negative Negative Leukocyte UA Negative Negative Nitrite UA Negative Negative Glucose UA Negative Negative Ketone UA Negative Negative Bili UA Negative Negative Urobilinogen UA 1.0 0.1-1.0 EU/dL LIPASE BLOOD Result Value Ref Range Lipase 138 73-393 U/L TROPONIN I Result Value Ref Range Troponin I <0.015 0.000-0.049 ng/mL No orders to display Progress Notes 9:50PM: Given pt has a prior ME, I will order a troponin and lipase, CBC, and urinalysis CT of abd and pel given mild left lower quadrant pain. Will treat for headache with Toradol, Benadryl and Reglan. Her headache was gradual onset about a week ago and is not the worst headache of her life. She has no other concerning signs or symptoms for meningitis, stroke, or hemorrhage. 10:53 PM: blood pressure came down with pain medication 11:15 PM Pt says her headache is almost gone, feels much better. If CT negative will DC home. ED Course Medical Decision Making I have reviewed the: Previous Chart, Nursing Notes and Vitals. I have interpreted the following results: Labs, CT Scans and Oxygen Saturation. Orders Placed This Encounter ??? CT ABDOMEN AND PELVIS WITH IV CONTRAST ??? CBC W AUTO DIFFERENTIAL ??? COMPREHENSIVE METABOLIC PANEL ??? URINALYSIS ROUTINE AUTO ??? LIPASE BLOOD ??? TROPONIN I ??? HCG URINE QUALITATIVE - POINT OF CARE (IP) ??? HCG URINE QUALITATIVE - POINT OF CARE (IP) ??? acetaminophen (TYLENOL) tablet 650 mg ??? ketorolac (TORADOL) injection 30 mg ??? diphenhydrAMINE (BENADRYL) injection 25 mg ??? metoclopramide (REGLAN) injection 10 mg ??? 0.9% NaCl IV Bolus ??? iohexol (OMNIPAQUE 350) contrast ??? metoprolol tartrate (LOPRESSOR) tablet 50 mg ??? ibuprofen (MOTRIN) 800 MG tablet ??? metoclopramide, disintegrating, (METOZOLV ODT) 10 MG tablet Clinical Impression Final diagnoses: Abdominal pain, left lower quadrant Headache(784.0) Midline low back pain without sciatica * Tess Turner RN - 03/28/2015 8:[address] Jacobson at bedside * Tess Turner RN - 03/28/2015 7:56 PM CDT Pt presents to ED with c/o abd pain, head pain, and back pain x Thursday. Pt c/o nausea. Denies any diarrhea, vomiting, vision change, SOB Or chest pain. Pt states she was seen at urgent care today andwas sent to ED. Pt on sde. No acute distress noted. Family at bedside. Call light within reach. Will monitor. 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 [address] [place] [id number] 09/28/2024 1:00 PM CUSTOMS BROKERAGE MANAGER Office Visit [facility] [place] [address] [address], [address] [address] [place] [address] [address] [facility] [address] [place] [address] documented as of this encounter Goals Goal Patient Goal Type Associated Problems Recent Progress Patient-Stated? Author Blood Pressure < 140/90 Blood Pressure 102/69(2022 11:30 AM CUSTOMS BROKERAGE MANAGER) No Melinda Newsome Quit smoking / using tobacco Lifestyle No Melinda Newsome documented as of this encounter Procedures Procedure Name Priority Date/Time Associated Diagnosis Comments CT ABDOMEN PELVIS W CONTRAST STAT 03/29/2015 12:07 AM CDT Abdominal pain, left lower quadrant HCG URINE QUALITATIVE Add on 03/28/2015 11:33 PM CDT URINALYSIS REFLEX TO MICROSCOPIC NO CULTURE STAT 03/28/2015 8:55 PM CDT TROPONIN I Add on 03/28/2015 7:49 PM CDT CBC W AUTO DIFFERENTIAL STAT 03/28/2015 7:49 PM CDT COMPREHENSIVE METABOLIC PANEL STAT 03/28/2015 7:49 PM CDT LIPASE BLOOD Add on 03/28/2015 7:49 PM CDT documented in this encounter Results * CT ABDOMEN AND PELVIS WITH IV CONTRAST (03/29/2015 12:07 AM CDT) Anatomical Region Laterality Modality Abdomen, Pelvis Computed Tomogra phy 03/29/2015 12:1 3 AM CDT Impressions 03/29/2015 12:17 AM CDT No acute findings in the abdomen. ??Please see above. Narrative 03/29/2015 12:[address] ABDOMEN WITH CONTRAST CT PELVIS WITH CONTRAST INDICATION: Abdominal pain, left lower quadrant Pt sent in from [facility] for evaluation of possible diverticulitis. [...] grammatical or syntax problems by a trained manager of medical. For questions about the report, please contact the Radiology Department. Procedure Note aDvid Styles MD - 03/29/[address] WITH CONTRAST CT PELVIS WITH CONTRAST INDICATION: Abdominal pain, left lower quadrant Pt sent in from [facility] for evaluation of possible diverticulitis. [...] grammatical or syntax problems by a trained manager of medical. For questions about the report, please contact the Radiology Department. IMPRESSION No acute findings in the abdomen. Please see above. Lindsay Jacobson MD CT ORDERABLES * HCG URINE QUALITATIVE (03/28/2015 11:33 PM CDT) hCG Qualitative Urine Negative Negative 03/28/2015 11:43 PM CDT [facility] Urine URINE / Unknown 03/28/2015 1 1:33 PM CDT 03/28/2015 11:33 PM CDT Lindsay Jacobson MD LAB - URINALYSIS ORD ERABLES [facility] [address] [place] [address] * URINALYSIS ROUTINE AUTO (03/28/2015 8:55 PM CDT) Color UA Yellow Straw, Yellow, Dark Yellow 03/28/2015 9:20 PM CDT [facility] Clarity UA Cloudy 03/28/2015 9:20 PM CDT [facility] Specific [place] UA 1.019 1.005 - 1.030 03/28/2015 9:20 PM CDT [facility] pH UA 5.5 5.0 - 8.0 pH 03/28/2015 9:20 PM CDT [facility] Protein UA Negative Negative 03/28/2015 9:20 PM CDT [facility] Blood UA Negative Negative 03/28/2015 9:20 PM CDT [facility] Leukocyte UA Negative Negative 03/28/2015 9:20 PM CDT [facility] Nitrite UA Negative Negative 03/28/2015 9:20 PM CDT [facility] Glucose UA Negative Negative 03/28/2015 9:20 PM CDT [facility] Ketone UA Negative Negative 03/28/2015 9:20 PM CDT [facility] Bilirubin UA Negative Negative 03/28/2015 9:20 PM CDT [facility] Urobilinogen UA 1.0 0.1 - 1.0 EU/dL 03/28/2015 9:20 PM CDT [facility] Urine URINE SPECIMEN OBTAINED BY CLEAN CATCH PROCEDURE / Unknown 03/28/2015 8:55 PM CDT 03/28/2015 9:07 PM CDT Lindsay Jacobson MD LAB - URINALYSIS ORD ERABLES Performing Organization Address City/[facility]/ZIP Co de Phone Number [facility] [address] [place] [address] * TROPONIN I (03/28/2015 7:49 PM CDT) Troponin I <0.015 0.000 - 0.049 ng/mL 03/28/2015 9:02 PM CDT [facility] Blood BLOOD SPECIMEN / Unknown 03/28/2015 7:49 PM CDT 03/28/2015 8:46 PM CDT Narrative [facility] - 03/28/2015 9:02 PM CDT [...] - CHEMISTRY ANUSHKA LOVE Performing Organization Address [facility] Co de Phone Number [facility] [address] [place], [place] [id number] * LIPASE BLOOD (03/28/2015 7:49 PM CDT) Lipase 138 73 - 393 U/L 03/28/2015 9:05 PM CDT [facility] Blood BLOOD SPECIMEN / Unknown 03/28/2015 7:49 PM CDT 03/28/2015 8:46 PM CDT Lindsay Jacobson MD LAB - [facility]MISTRY [facility] Performing Organization Address [facility] de Phone Number [facility] [address] [place] [address] * (ABNORMAL) COMPREHENSIVE METABOLIC PANEL (03/28/2015 7:49 PM CDT) Glucose 83 74 - 106 mg/dL 03/28/2015 8:21 PM CDT [facility] Sodium 140 136 - 145 mmol/L 03/28/2015 8:21 PM CDT [facility] Potassium 3.9 3.5 - 5.1 mmol/L 03/28/2015 8:21 PM CDT [facility] Chloride 108(H) 98 - 107 mmol/L 03/28/2015 8:21 PM CDT [facility] CO2 23 22 - 31 mmol/L 03/28/2015 8:21 PM CDT [facility] Calcium 9.0 8.5 - 10.1 mg/dL 03/28/2015 8:21 PM CDT [facility] Anion Gap 9 5 - 15 mmol/L 03/28/2015 8:21 PM CDT [facility] BUN 20 7 - 21 mg/dL 03/28/2015 8:21 PM CDT [facility] Creatinine 0.74 0.50 - 1.30 mg/dL 03/28/2015 8:21 PM CDT [facility] Alkaline Phosphatase 64 38 - 126 U/L 03/28/2015 8:21 PM CDT [facility] ALT 29 12 - 78 U/L 03/28/2015 8:21 PM CDT [facility] AST 22 5 - 40 U/L 03/28/2015 8:21 PM CDT [facility] Protein Total 7.7 6.4 - 8.2 gm/dL 03/28/2015 8:21 PM CDT [facility] Albumin 4.0 3.4 - 5.0 gm/dL 03/28/2015 8:21 PM CDT [facility] Bilirubin Total 0.4 0.2 - 1.0 mg/dL 03/28/2015 8:21 PM CDT [facility] eGFR by MDRD >60 >60 mL/min/1.7 3m2 03/28/2015 8:21 PM CDT [facility] eGFR by MDRD >60 >60 mL/min/1.7 3m2 03/28/2015 8:21 PM CDT [facility] Blood BLOOD SPECIMEN / Unknown 03/28/2015 7:49 PM CDT 03/28/2015 7:55 PM CDT Lindsay Jacobson MD LAB - CHEMISTRY ORDE IVAN [facility] [address] [place] [address] * CBC W AUTO DIFFERENTIAL (03/28/2015 7:49 PM CDT) WBC 8.5 4.4 - 10.7 x10^9/L 03/28/2015 8:00 PM CDT [facility] WBC Corrected x10^9/L 03/28/2015 8:00 PM CDT [facility] RBC 5.13 3.80 - 5.20 x10^12/L 03/28/2015 8:00 PM CDT [facility] Hemoglobin 15.1 12.0 - 15.6 gm/dL 03/28/2015 8:00 PM CDT [facility] Hematocrit 44.9 35.9 - 45.5 % 03/28/2015 8:00 PM CDT [facility] MCV 87.5 80.7 - 98.3 fl 03/28/2015 8:00 PM CDT [facility] MCH 29.4 26.7 - 34.0 pg 03/28/2015 8:00 PM CDT [facility] MCHC 33.6 30.8 - 35.9 gm/dL 03/28/2015 8:00 PM CDT [facility] Platelet Count 189 153 - 416 x10^9/L 03/28/2015 8:00 PM CDT [facility] RDW-CV 14.3 12.1 - 14.9 % 03/28/2015 8:00 PM CDT [facility] MPV 10.4 9.4 - 12.9 fl 03/28/2015 8:00 PM CDT [facility] Neutrophils % 58.1 44.0 - 73.0 % 03/28/2015 8:00 PM CDT [facility] Lymphocytes % 30.6 20.0 - 43.0 % 03/28/2015 8:00 PM CDT [facility] Monocytes % 7.2 5.0 - 13.0 % 03/28/2015 8:00 PM CDT [facility] Eosinophils % 3.3 0.0 - 6.0 % 03/28/2015 8:00 PM CDT [facility] Basophils % 0.6 0.0 - 2.0 % 03/28/2015 8:00 PM CDT [facility] Immature Granulocytes 0.2 0 - 1 % 03/28/2015 8:00 PM CDT [facility] Neutrophil Absolute 4.96 2.01 - 7.14 x10^9/L 03/28/2015 8:00 PM CDT [facility] Lymphocytes Absolute 2.61 1.07 - 3.94 x10^9/L 03/28/2015 8:00 PM CDT [facility] Monocytes Absolute 0.61 0.26 - 1.07 x10^9/L 03/28/2015 8:00 PM CDT [facility] Eosinophils Absolute 0.28 0 - 0.47 x10^9/L 03/28/2015 8:00 PM CDT [facility] Basophils Absolute 0.05 0 - 0.08 x10^9/L 03/28/2015 8:00 PM CDT [facility] Immature Granulocytes Absolute 0.02 0.00 - 0.06 x10^9/L 03/28/2015 8:00 PM CDT [facility] Blood BLOOD SPECIMEN / Unknown 03/28/2015 7:49 PM CDT 03/28/2015 7:55 PM CDT Lindsay Jacobson MD LAB - HEMATOLOGY ORD ERABLES [facility] [address] [place] [address] documented in this encounter Visit Diagnoses Diagnosis Abdominal pain, left lower quadrant Headache(784.0) Headache Midline low back pain without sciatica documented in this encounter Administered Medications Inactive Administered Medications - up to 3 most recent administrations Medication Order MAR Action Action Date Dose Rate Site 0.9% NaCl IV Bolus 1,000 mL, Administer over 30 Minutes, NOW, 1 dose, On Thu03/28/15 at 2044 $ Given 03/28/2015 8:56 PM CDT 1,000 mL diphenhydrAMINE (BENADRYL) injection 25 mg 25 mg, Intravenous, NOW, 1 dose, On Thu03/28/15 at 2044, Max intravenous rate = 25 mg/min $ Given 03/28/2015 8:56 PM CDT 25 mg iohexol (OMNIPAQUE 350) contrast Intravenous, CONTRAST ONCE, Starting on Thu03/28/15 at 2036, Until My 03/29/15 at 0148 $ Given - Contrast 03/28/2015 11:53 PM CDT 80 mL ketorolac (TORADOL) injection 30 mg 30 mg, Intravenous, NOW, 1 dose, On Thu03/28/15 at 2044 $ Given 03/28/2015 8:56 PM CDT 30 mg metoclopramide (REGLAN) injection 10 mg 10 mg, Intravenous, NOW, 1 dose, On Thu03/28/15 at 2044 $ Given 03/28/2015 8:57 PM CDT 10 mg metoprolol tartrate (LOPRESSOR) tablet 50 mg 50 mg, Oral, NOW, 1 dose, On Thu03/28/15 at 2200 $ Given 03/28/2015 10:01 PM CDT 50 mg documented in this encounter Active and Recently Administered Medications Times are shown in CDT. Scheduled Medication Order 03/27/2015 03/28/2015 03/29/2015 0.9% NaCl IV Bolus (COMPLETED) 1,000 mL, Administer over 30 Minutes, NOW, 1 dose, On Thu03/28/15 at 2044 2055 ($ Given - Provider: Tess Turner RN)2200 (Rx Stopped - Provider: Tess Turner RN) diphenhydrAMINE (BENADRYL) injection 25 mg (COMPLETED) 25 mg, Intravenous, NOW, 1 dose, On Thu03/28/15 at 2044, Max intravenous rate = 25 mg/min 2055 ($ Given - Provider: Tess Turner RN) iohexol (OMNIPAQUE 350) contrast (CANCELED) Intravenous, CONTRAST ONCE, Starting on Thu03/28/15 at 2035, Until My 03/29/15 at 1473 ($ Given - Contrast - Provider: Doc Law, RT(R)) ketorolac (TORADOL) injection 30 mg (COMPLETED) 30 mg, Intravenous, NOW, 1 dose, On Thu03/28/15 at 2044 2055 ($ Given - Provider: Tess Turner RN) metoclopramide (REGLAN) injection 10 mg (COMPLETED) 10 mg, Intravenous, NOW, 1 dose, On Thu03/28/15 at 2044 2056 ($ Given - Provider: Tess Turner RN) metoprolol tartrate (LOPRESSOR) tablet 50 mg (COMPLETED) 50 mg, Oral, NOW, 1 dose, On Thu03/28/15 at 2200 220 ($ Given - Provider: Tess Turner RN) documented in this encounter Care Teams Hobbing Press Operator Relationship Specialty Start Date End Date Sveta Rai MD PCP - General Internal Medicine 02/22/13 12/07/16 Stevenson Almanza MD Neurology 08/16/14 documented as of this encounter
--- OUTSIDE RECORDS SUMMARY | 2024-09-18 09:35 | XMS_ITS | Encounter Summary ---
Author Organization [facility] Address [address] [facility] [place] [address] Care Team Providers Care General Ophthalmologist Name Role Phone Sveta Rai MD Primary Care Provider [phone] Stevenson Almanza MD Unavailable [phone] Dequan Baxter MD Unavailable [phone] Anuj Schwartz MD Primary Care Provider [phone] Reason for Visit * Reason Comments Refill Request Encounter Details Date Type Department Care Team (Late Contact Info) Description 06/17/2015 Refill [facility] Medical [facility] - Family Medicine [address] [place] [address] Sveta Rai MD [address] [place] [address] [id number] Refill Request Social History Tobacco Use Types [...] Telephone Encounter - Soraya Moran - 06/18/2015 1:19 PM CDT Lucretia Rodriguez Allergies Allergen Reactions ??? Sulfa Drugs ??? Latex Requested Prescriptions Pending Prescriptions Disp Refills ??? metoprolol tartrate (LOPRESSOR) 50 MG tablet [Pharmacy Med Name: METOPROLOL TARTRATE 50 MG TAB]180 Tab 1 Sig: TAKE ONE TABLET BY MOUTH TWICE A DAY Last Refill: 01/23/2015 Last OV: 02/22/2015 (robert) Next OV:07/26/2015 Hypertension Medicine Refill Request Recent Labs Component Name 03/28/15 1949 01/23/15 1320 08/23/14 1339 SODIUM 140 141 140 POTASSIUM 3.9 4.2 4.2 CHLORIDE 108* 101 102 CO2 23 22 21 BUN 20 17 9 CREATININE 0.74 0.79 0.94 GLUCOSE 83 79 77 CALCIUM 9.0 9.6 9.6 BP Readings from Last 3 Encounters: 03/29/15 124/63 02/22/15 138/88 02/22/15 122/74 documented in this encounter Plan of Treatment Upcoming Encounters Date Type Department Care Team (Late st Contact Info) Description 09/27/2024 2:20 PM STAFF EDITOR Office Visit [facility] Health Neurosciences [address] [facility] [address] [place] [address] [place] [address] [facility] [address] [place] [address] 09/28/2024 1:00 PM STAFF EDITOR Office Visit [facility] [place] [address] [address] [place] [address] [place] [address] [address] [place] [address] documented as of this encounter Goals Goal Patient Goal Type Associated Problems Recent Progress Patient-Stated? Author Blood Pressure < 140/90 Blood Pressure 102/69(2022 11:30 AM STAFF EDITOR) No Melinda Newsome Quit smoking / using tobacco Lifestyle No Melinda Newsome documented as of this encounter Visit Diagnoses Not on filedocumented in this encounter Care Teams General Ophthalmologist Relationship Specialty Start Date End Date Sveta Rai MD PCP - General Internal Medicine 02/22/13 12/07/16 Anuj Schwartz MD [address] [place] [id number] PCP - General Family Medicine 12/08/16 10/25/18 Stevenson Almanza MD Neurology 08/16/14 [place] [address] [facility] [address] [place] [address] Pulmonary Disease 02/14/16 documented as of this encounter
--- OUTSIDE RECORDS SUMMARY | 2024-09-18 09:35 | XMS_ITS | Encounter Summary ---
Author Organization [facility] Address [address] [facility] [place] [address] Care Team Providers Care Assistant Reading Teacher Name Role Phone Sveta Rai MD Primary Care Provider Stevenson Almanza MD Unavailable [phone] Reason for Visit * Reason Comments Refill Request Encounter Details Date Type Department Care Team (Late st Contact Info) Description 11/20/2014 Refill [facility] Medical [facility] - Family Medicine [address] [place] [address] Sveta Rai MD [address] [place] [address] DR NOONAN [address] [place] [address] Refill Request Social History Tobacco Use Types [...] encounter Miscellaneous Notes * Telephone Encounter - Melinda Newsome - 11/21/2014 9:26 AM CDT Rx approved * Telephone Encounter - Ayla Gonzalez - 11/21/2014 8:34 AM CDT Lucretia Rodriguez Requested Prescriptions Pending Prescriptions Disp Refills ??? atorvastatin (LIPITOR) 20 MG tablet [Pharmacy Med Name: ATORVASTATIN 20 MG TABLET] 30 Tab Sig: TAKE ONE TABLET BY MOUTH AT BEDTIME Allergies Allergen Reactions ??? Sulfa Drugs ??? Latex Last refill- 05/11/2014 Last OV-07/25/2014 Scheduled-01/23/2015 documented in this encounter Plan of Treatment Upcoming Encounters Date Type Department Care Team (Late st Contact Info) Description 09/27/2024 2:20 PM COLOR GRINDER Office Visit [facility] Health Neurosciences [address] [address] [place] [address] [facility] [address] [place] [address] 09/28/2024 1:00 PM COLOR GRINDER Office Visit [facility] [place] [address] [address] [facility] [address] [place] [address] [place] [address] [address] [facility] [address] [place] [address] documented as of this encounter Goals Goal Patient Goal Type Associated Problems Recent Progress Patient-Stated? Author Blood Pressure < 140/90 Blood Pressure 102/69(2022 11:30 AM COLOR GRINDER) No Melinda Newsome Quit smoking / using tobacco Lifestyle No Melinda Newsome documented as of this encounter Visit Diagnoses Not on filedocumented in this encounter Care Teams Assistant Reading Teacher Relationship Specialty Start Date End Date Sveta Rai MD PCP - General Internal Medicine 02/22/13 12/07/16 Stevenson Almanza MD Neurology 08/16/14 documented as of this encounter
--- OUTSIDE RECORDS SUMMARY | 2024-09-18 09:35 | XMS_ITS | Encounter Summary ---
Author Organization [facility] Address [address] [facility] [place] [address] Care Team Providers Care Corporate Travel Counselor Name Role Phone Sveta Rai MD Primary Care Provider Stevenson Almanza MD Unavailable [phone] Reason for Visit * Reason Comments Sleep Problem dealing with the los s of her Encounter Details Date Type Department Care Team (Late st Contact Info) Description 06/27/2015 10:30 AM CDT Office Visit [facility] Medical [facility] - Family Medicine [address] [place] [address] Sveta Rai MD [address] [place] [address] DR [address] [place] [address] Grief (Primary Dx); Major depressive disorder, recurrent episode, moderate (HCC); Anxiety; Influenza vaccine needed Social History Tobacco Use Types Packs/Day Years [...] Sign Reading Time Taken Comments Blood Pressure 170/100 06/27/2015 10:43 AM CDT Pulse 90 06/27/2015 10:43 AM CDT Temperature 36.8 ??C (98.2 ??F) 06/27/2015 10:43 AM C DT Respiratory Rate 26 06/27/2015 10:43 AM CDT Oxygen Saturation - - Inhaled Oxygen Concentration - - Weight 106.1 kg (234 lb) 06/27/2015 10:43 AM CDT Height 162.6 cm (5' 4.02 ) 06/27/2015 10:43 AM C DT Body Mass Index 40.15 06/27/2015 10:43 AM CDT documented in this encounter Functional [...] this encounter Patient Instructions * Patient Instructions* Marlys Piper - 06/27/2015 10:45 AM CDT Caring for Your High Blood Pressure Diet Eat a healthy diet: ??? Eat healthy foods from all of the 5 food groups which are fruits, vegetables, breads, dairy products, meat and fish. Eating healthy foods may help you feel better and have more energy. ??? To help control your blood pressure, you may need to limit the amount of salt and fat you eat. Read labels to see how much sodium (salt or sodium chloride) is in the food that you buy at the store. Avoid foods and drinks that are high in sodium (salt). These include smoked meats (such as ham and gomez), cheese, canned and frozen foods, and butter and margarine. Read all labels carefully. Do not add salt to your food. Learn to use fresh herbs, spices, or salt substitutes to add flavor to your food. Ask your provider for any dietary restrictions that are appropriate for you. Where can I go for more information? [place] [employer] National Center: http://www.americanheart.org 1. In the top header, click ???Conditions?? . 2. In the top header, click ???high blood pressure.?? 3. For a printable blood pressure tracker, scroll toward the bottom of the page to Related Tools, and click ???HBP Trackers.?? 2-972-IMW-USA-1 or ( ) National Heart, Lung and Blood [place]: http://www.nhlbi.nih.gov/health/infoctr/index.htm documented in this encounter Progress Notes * Sveta Rai MD - 06/27/2015 11:17 AM CDT SUBJECTIVE: Lucretia Rodriguez is a 49 y.o. female with Chief Complaint Patient presents with ??? Sleep Problem dealing with the loss of her HPI: Pt is here to address depression and grieving issues. Her a week ago, she is grieving, has problem falling asleep, off work since then but not ready to go back yet. Crying often. She is currently staying with her daughter, she is still taking her Celexa 20 mg qd. Past Medical History Diagnosis Date ??? Heart attack 2010 ??? HTN (hypertension) ??? Hyperlipemia ??? Multiple sclerosis 2006 ??? H/O heart artery stent 2010 [id number] LAD( ) niry ??? H/O laparoscopic adjustable [...] Years of Education: N/A Occupational History ??? [employer] Social History Main Topics ??? Smoking status: [...] or fever Psychological ROS: positive for - anxiety, depression, and insomnia. negative for - suicidal ideation Respiratory ROS: no cough, shortness of breath, or wheezing Cardiovascular ROS: no chest pain or dyspnea on exertion Gastrointestinal ROS: no abdominal pain, change in bowel habits, or black or bloody stools Genito-Urinary ROS: no dysuria, trouble voiding, or hematuria Musculoskeletal ROS: negative for - joint pain Neurological ROS: no TIA or stroke symptoms OBJECTIVE: BP 170/100 mmHg Pulse 90 Temp(Src) 98.2 ??F (Oral) Resp 26 Wt 106.142 kg (234 lb) BMI 40.15 kg/m2 General: alert, cooperative, no distress Eyes: [...] Cranial nerves 2-12 andsensation grossly intact. ASSESSMENT: Grief Major depressive disorder, recurrent episode, moderate - Plan: citalopram (CELEXA) 40 MG tablet Anxiety - Plan: ALPRAZolam (XANAX) 0.25 MG tablet, citalopram (CELEXA) 40 MG tablet Influenza vaccine needed - Plan: FLU VAC NO PRSV 4 [place] 3 YRS PLUS PLAN: Orders Placed This Encounter ??? FLU VAC NO PRSV 4 [place] 3 YRS PLUS ??? ALPRAZolam (XANAX) 0.25 MG tablet Sig: Take 1 Tab by mouth 3 times daily as needed for Anxiety Dispense: 90 Tab Refill: 0 ??? citalopram (CELEXA) 40 MG tablet Sig: Take 1 Tab by mouth once daily Dispense: 90 Tab Refill: 3 Screenings Future Falls: Depression: PHQ-2:TOTAL POINT SCORE: 0 PHQ-9: - increase Celexa to 40 mg. - given Xanax 90 pills to take p.r.n. To get her through the grieving period. Patient understands that this will not be refilled again. - Note off work for 2 weeks given. - followup in 2 months for anxiety and depression. documented in this encounter Plan of Treatment Upcoming Encounters Date Type Department Care Team (Late st Contact Info) Description 09/27/2024 2:20 PM ENGINEERING GROUP LEADER Office Visit [facility] Neurosciences [address] [address] [place] [address] [phone] 09/28/2024 1:00 PM ENGINEERING GROUP LEADER Office Visit [facility] [place] [address] Michele Barrett, [address] [phone] [place] [address] [address] [facility] [address] [place] [address] documented as of this encounter Goals Goal Patient Goal Type Associated Problems Recent Progress Patient-Stated? Author Blood Pressure < 140/90 Blood Pressure 102/69(2022 11:30 AM ENGINEERING GROUP LEADER) No Melinda Newsome Quit smoking / using tobacco Lifestyle No Melinda Newsome documented as of this encounter Visit Diagnoses Diagnosis Grief- Primary Adjustment disorder with depressed mood Major depressive disorder, recurrent episode, moderate (HCC) Major depressive disorder, recurrent episode, moderate Anxiety Anxiety state, unspecified Influenza vaccine needed Need for prophylactic vaccination and inoculation against influenza documented in this encounter Care Teams Corporate Travel Counselor Relationship Specialty Start Date End Date Sveta Rai MD PCP - General Internal Medicine 02/22/13 12/07/16 Stevenson Almanza MD Neurology 08/16/14 documented as of this encounter
--- OUTSIDE RECORDS SUMMARY | 2024-09-18 09:35 | XMS_ITS | Encounter Summary ---
Author Organization [facility] Health Address [address] [facility] [place] [address] Care Team Providers Care Tanning Drum Operator Name Role Phone Sveta Rai MD Primary Care Provider Stevenson Almanza MD Unavailable [phone] Reason for Referral * Radiology Services (Routine) - Closed Specialty Diagnoses / Procedures Referred By Contac t Referred To Contact Mammography Diagnoses Screening for breast cancer Procedures MAMMO SCREENING DIGITAL IMAGE BILAT MAMMO SCREENING DIGITAL IMAGE Sveta Hunt MD [address] [place] [address] DR NOON[address] [place] [address] [facility] [place] [phone] Referral ID Status Reason Start Date Expiration Date Visits Re quested Visits Authorized [id number] Closed 10/19/2015 04/16/2016 1 1 ORDER HAND Reason for Visit * Radiology Services (Routine) - Closed Specialty Diagnoses / Procedures Referred By Contac t Referred To Contact Mammography Diagnoses Screening for breast cancer Procedures MAMMO SCREENING DIGITAL IMAGE BILAT MAMMO SCREENING DIGITAL IMAGE Sveta Hunt MD [address] [place] [address] [facility] [address] [address] Referral ID Status Reason Start Date Expiration Date Visits Re quested Visits Authorized [id number] Closed 10/19/2015 04/16/2016 1 1 Encounter Details Date Type Department Care Team (Latest Contact Info) Description 11/05/2015 9:57 AM CUT ORDER HAND - 11/05/2015 11:59 PM CUT ORDER HAND Hospital Encounter [facility] Health Breast Care [address] [facility] [address] [place] [address] Sveta Rai MD [address] [facility] [address] [address] Discharge Disposition: Home or Self Care Social [...] 5 (five) capsules by mouth once daily amoxicillin-clavulanate (AUGMENTIN) 875-125 MG tabletIndications:Chronic allergic otitis media of left ear Take 1 Tab by mouth every 12 hours 20 Tab 0 07/31/2015 11/12/2015 aspirin 325 MG tablet Take 81 mg [...] routine adult physical exam with abnormal findings [place] 2 Sprays into each nostril once daily 1 Bottle 3 07/31/2015 11/17/2015 levothyroxine (SYNTHROID) 88 MCG tablet TAKE ONE TABLET BY MOUTH ONCE DAILY BEFORE BREAKFAST 30 Tab 3 10/19/2015 02/07/2016 lisinopril (PRINIVIL; ZESTRIL) 40 MG tabletIndications:HTN (hypertension) [...] PO) Take by mouth once daily 12/31/2017 zolpidem (AMBIEN) 5 MG tabletIndications:Other insomnia Take 1 Tab by mouth nightly as needed for Insomnia 30 Tab 0 09/30/2015 11/12/2015 documented as of this encounter Progress Notes * Sveta Rai MD - 11/09/2015 6:08 AM CSTQuick Note: Benign mammogram. ORDER HAND documented in this encounter Plan of Treatment Upcoming Encounters Date Type Department Care Team (Late st Contact Info) Description 09/27/2024 2:20 PM CUT ORDER HAND Office Visit [facility] [address] [facility] [address] [place] [phone] [place] [address] [facility] JUAN [address]ERT[address] [place] [address] 09/28/2024 1:00 PM CUT ORDER HAND Office Visit [facility] [place] [address] [address] , Juan Alberto [address] [place] [address] [place] [address] [address] JUAN [address] [place] [address] documented as of this encounter Goals Goal Patient Goal Type Associated Problems Recent Progress Patient-Stated? Author Blood Pressure < 140/90 Blood Pressure 102/69(2022 11:30 AM CUT ORDER HAND) No Melinda Newsome Quit smoking / using tobacco Lifestyle No Melinda Newsome documented as of this encounter Procedures Procedure Name Priority Date/Time Associated Diagnosis Comments MAMMO BILAT SCREENING Routine 11/05/2015 10:25 AM CUT ORDER HAND Screening for breast cancer documented in this encounter Results * MAMMO SCREENING DIGITAL IMAGE BILAT (11/05/2015 10:25 AM CUT ORDER HAND) Anatomical Region Laterality Modality Breast Bilateral Mammography 11/05/2015 10:5 7 AM CUT ORDER HAND Narrative 11/05/2015 11:04 AM CUT ORDER HAND DIGITAL BILATERAL SCREENING MAMMOGRAMS WITH CAD AND 3-D TOMOSYNTHESIS DATE: 11/05/2015, 9:57 AM PREVIOUS EXAM DATE: 01/24/14 INDICATION: Screening. TECHNIQUE: Bilateral craniocaudad (CC) and mediolateral oblique (MLO) views. Images were interpreted with the aid of CAD. 3-D tomosynthesis images were performed. TECHNOLOGIST: Sheri Flores, RT (R)(M) TISSUE DENSITY: Predominantly fatty. FINDINGS: Benign appearing rounded calcifications are present throughout both breasts. No mass nor microcalcification nor new finding is evident in either breast. ASSESSMENT: (BI-RADS 2) Benign finding. RECOMMENDATIONS: Continued annual screening mammography. The above findings should be correlated with physical examination. A relatively nonspecific study should not preclude additional evaluation if suspicious findings are present clinically. An [place] [employer]ified [employer]. [facility] utilize [employer] as a reminder system to notify patients of their next recommended mammograms. Edited by Teresita Shea on 11/05/2015 11:02 AM Sveta Gross MD MAMMO ORDERABLES documented in this encounter Visit Diagnoses Diagnosis Screening for breast cancer Breast screening, unspecified documented in this encounter Care Teams Tanning Drum Operator Relationship Specialty Start Date End Date Sveta Rai MD PCP - General Internal Medicine 02/22/13 12/07/16 Stevenson Almanza MD Neurology 08/16/14 documented as of this encounter
--- OUTSIDE RECORDS SUMMARY | 2024-09-18 09:35 | XMS_ITS | Encounter Summary ---
Author Organization [facility] Address [address] [facility] [place] [address] Care Team Providers Care Grading Machine Feeder Name Role Phone Sveta Rai MD Primary Care Provider Stevenson Almanza MD Unavailable [phone] Reason for Visit * Reason Onset Date Comments MEDICATION REFILL 10/19/2014 Encounter Details Date Type Department Care Team (Late st Contact Info) Description 10/19/2014 Refill [facility] Medical [facility] - Family Medicine [address] [place] [address] [phone] Sveta Rai MD [address] [place] [address] DR NOON[address] [place] [phone] MEDICATION REFILL Social History Tobacco Use Types [...] AM CDT documented as of this encounter Miscellaneous Notes * Telephone Encounter - Melinda Newsome - 10/19/2014 3:03 PM CST Rx approved ITECTURE DEPARTMENT CHAIR * Telephone Encounter - Ayla Gonzalez - 10/19/2014 2:49 PM CST Lucretia Rodriguez Requested Prescriptions Pending Prescriptions Disp Refills ??? lisinopril (PRINIVIL; ZESTRIL) 40 MG tablet 30 Tab Sig: Take 1 Tab by mouth once daily. ??? metoprolol tartrate IR (LOPRESSOR) 50 MG tablet 60 Tab Sig: Take 1 Tab by mouth 2 times daily. Allergies Allergen Reactions ??? Sulfa Drugs ??? Latex Last refill- 10/01/2014 Last OV-07/25/2014 Scheduled-01/23/2015 ITECTURE DEPARTMENT CHAIR documented in this encounter Plan of Treatment Upcoming Encounters Date Type Department Care Team (Late st Contact Info) Description 09/27/2024 2:20 PM ARCHITECTURE DEPARTMENT CHAIR Office Visit [facility] [address] [facility] [address] [place] [phone] [place] [address] [facility] [address] [place] [address] 09/28/2024 1:00 PM ARCHITECTURE DEPARTMENT CHAIR Office Visit [facility] Group - [address] Michele Barrett, [address] [address] [place] [address] [address] [facility] [address] [place] [address] documented as of this encounter Goals Goal Patient Goal Type Associated Problems Recent Progress Patient-Stated? Author Blood Pressure < 140/90 Blood Pressure 102/69(2022 11:30 AM ARCHITECTURE DEPARTMENT CHAIR) No Melinda Newsome Quit smoking / using tobacco Lifestyle No Melinda Newsome documented as of this encounter Visit Diagnoses Diagnosis HTN (hypertension)- Primary Unspecified essential hypertension documented in this encounter Care Teams Grading Machine Feeder Relationship Specialty Start Date End Date Sveta Rai MD PCP - General Internal Medicine 02/22/13 12/07/16 Stevenson Almanza MD Neurology 08/16/14 documented as of this encounter
--- OUTSIDE RECORDS SUMMARY | 2024-09-18 09:35 | XMS_ITS | Encounter Summary ---
Author Organization [facility] Address [address] [facility] [place] [address] Care Team Providers Care Breaker Mechanic Name Role Phone Sveta Rai MD Primary Care Provider [phone] Stevenson Almanza MD Unavailable [phone] Reason for Visit * Reason Onset Date Comments MEDICATION REFILL 11/10/2015 Encounter Details Date Type Department Care Team (Late st Contact Info) Description 11/10/2015 Refill [facility] Medical [facility] - Family Medicine [address] [place] [address] [phone] Sveta Rai MD [address] [place] [address] DR NOONAN [address] [place] [phone] MEDICATION REFILL Social History Tobacco Use Types [...] encounter Miscellaneous Notes * Addendum Note - Efren Harris MA - 11/12/2015 8:46 AM CSTAddended by: EFREN HARRIS on: 11/12/2015 08:46 AM Modules accepted: Orders AP MAN * Telephone Encounter - Efren Harris MA - 11/12/2015 8:45 AM CST Lucretia Rodriguez Requested Prescriptions Pending Prescriptions Disp Refills ??? lisinopril (PRINIVIL; ZESTRIL) 40 MG tablet 30 Tab 3 Sig: Take 1 Tab by mouth once daily ??? zolpidem (AMBIEN) 5 MG tablet 30 Tab 0 Sig: Take 1 Tab by mouth nightly as needed for Insomnia Allergies Allergen Reactions ??? Sulfa Drugs ??? Latex Last refill- 01/23/15 with 3,09/30/15 Last OV-09/18/15 Scheduled-11/13/15 AP MAN documented in this encounter Plan of Treatment Upcoming Encounters Date Type Department Care Team (Late st Contact Info) Description 09/27/2024 2:20 PM BURLAP MAN Office Visit [facility] Neurosciences [address] [facility] [address] [place] [address] [place] [address] [facility] [address] [place] [address] 09/28/2024 1:00 PM BURLAP MAN Office Visit [facility] Medical Group - [address] [facility], [address] [address] [place] [address] [place] [address] documented as of this encounter Goals Goal Patient Goal Type Associated Problems Recent Progress Patient-Stated? Author Blood Pressure < 140/90 Blood Pressure 102/69(2022 11:30 AM BURLAP MAN) No Melinda Harris Quit smoking / using tobacco Lifestyle No Melinda Harris documented as of this encounter Visit Diagnoses Diagnosis HTN (hypertension) Unspecified essential hypertension Other insomnia documented in this encounter Care Teams Breaker Mechanic Relationship Specialty Start Date End Date Sveta Rai MD PCP - General Internal Medicine 02/22/13 12/07/16 Stevenson Almanza MD Neurology 08/16/14 documented as of this encounter
--- OUTSIDE RECORDS SUMMARY | 2024-09-18 09:35 | XMS_ITS | Encounter Summary ---
Author Organization [facility] Address [address] [facility] [place] [address] Care Team Providers Care Starcher And Tenter Range Feeder Name Role Phone Sveta Rai MD Primary Care Provider Stevenson Almanza MD Unavailable [phone] Reason for Visit * Reason Onset Date Comments MEDICATION REFILL 09/28/2015 Encounter Details Date Type Department Care Team (Late st Contact Info) Description 09/28/2015 Refill [facility] Medical [facility] - Family Medicine [address] [place] [address] [phone] Sveta Rai MD [address] [place] [address] DR NOONAN [address] [place] [id number] MEDICATION REFILL Social History Tobacco Use Types [...] Telephone Encounter - Rekha Newsome MA - 10/02/2015 8:30 AM CST Per 09/28/15 MyChart communication on 10/01/15 this was called into the pharmacy. AVING PLATE MAKER * Telephone Encounter - Sol Phelps - 09/28/2015 4:08 PM CST Duplicate AVING PLATE MAKER documented in this encounter Plan of Treatment Upcoming Encounters Date Type Department Care Team (Late st Contact Info) Description 09/27/2024 2:20 PM ENGRAVING PLATE MAKER Office Visit [facility] Neurosciences [address] [address] [place] [address] [facility] [address] [place] [phone] 09/28/2024 1:00 PM ENGRAVING PLATE MAKER Office Visit [facility] [place] [address] Michele Barrett, [facility] [address] [place] [address] [place] [address] [address] [facility] [address] [place] [address] documented as of this encounter Goals Goal Patient Goal Type Associated Problems Recent Progress Patient-Stated? Author Blood Pressure < 140/90 Blood Pressure 102/69(2022 11:30 AM ENGRAVING PLATE MAKER) No Melinda Newsome Quit smoking / using tobacco Lifestyle No Melinda Newsome documented as of this encounter Visit Diagnoses Diagnosis Other insomnia documented in this encounter Care Teams Starcher And Tenter Range Feeder Relationship Specialty Start Date End Date Sveta Rai MD PCP - General Internal Medicine 02/22/13 12/07/16 Stevenson Almanza MD Neurology 08/16/14 documented as of this encounter
--- OUTSIDE RECORDS SUMMARY | 2024-09-18 09:35 | XMS_ITS | Encounter Summary ---
Author Organization [facility] Health Address [address] [place] [address] Care Team Providers Care Associate Brand Manager Name Role Phone Sveta Rai MD Primary Care Provider Stevenson Almanza MD Unavailable [phone] Encounter Details Date Type Department Care Team (Late st Contact Info) Description 07/31/2015 Orders Only [facility] Medical [facility] - Family Medicine [address] [place] [address] Kamille Akers Routine general medical examination at a health care facility Social History Tobacco Use Types Packs/Day Years [...] st Contact Info) Description 09/27/2024 2:20 PM LAW REPORTER Office Visit [facility] Health Neurosciences [address] [facility] [address] [place] [phone] [place] [address] [facility] [address] [place] [address] 09/28/2024 1:00 PM LAW REPORTER Office Visit [facility] [place] [address] De[address] Barrett, Juan Alberto [address] [place] [address] [place] [address] [address] [facility] 500 [place] [address] documented as of this encounter Goals Goal Patient Goal Type Associated Problems Recent Progress Patient-Stated? Author Blood Pressure < 140/90 Blood Pressure 102/69(2022 11:30 AM LAW REPORTER) No Melinda Newsome Quit smoking / using tobacco Lifestyle No Melinda Newsome documented as of this encounter Procedures Procedure Name Priority Date/Time Associated Diagnosis Comments EKG 12-LEAD Routine 07/31/2015 Routine general medical examination at a health care facility documented in this encounter Results * EKG 12-LEAD (07/31/2015) Sveta Gross MD ECG ORDERABLES [facility] RESULT SCAN documented in this encounter Visit Diagnoses Diagnosis Routine general medical examination at a health care facility documented in this encounter Care Teams Associate Brand Manager Relationship Specialty Start Date End Date Sveta Rai MD PCP - General Internal Medicine 02/22/13 12/07/16 Stevenson Almanza MD Neurology 08/16/14 documented as of this encounter
--- OUTSIDE RECORDS SUMMARY | 2024-09-18 09:35 | XMS_ITS | Encounter Summary ---
Author Organization [facility] Address [address] [facility] [place] [address] Care Team Providers Care Vending Machine Mechanic Name Role Phone Sveta Rai MD Primary Care Provider Stevenson Almanza MD Unavailable [phone] Reason for Visit * Reason Onset Date Comments MEDICATION REFILL 11/12/2015 Encounter Details Date Type Department Care Team (Late st Contact Info) Description 11/12/2015 Refill [facility] Medical [facility] - Family Medicine [address] [place] [address] [phone] Sveta Rai MD [address] [place] [address] DR NOONAN [address] [place] [phone] MEDICATION REFILL Social History Tobacco Use Types [...] encounter Miscellaneous Notes * Telephone Encounter - Suki Edith - 11/16/2015 9:59 AM CST Rx phoned in to pharmacy [employer] documented in this encounter Plan of Treatment Upcoming Encounters Date Type Department Care Team (Late st Contact Info) Description 09/27/2024 2:20 PM SUPERVISING AIRPLANE PILOT Office Visit [facility] [address] [phone] [place] [address] [phone] 09/28/2024 1:00 PM SUPERVISING AIRPLANE PILOT Office Visit [facility] [place] [address] Michele Barrett, [address] [address] [place] [address] [address] [facility] [address] [place] [address] documented as of this encounter Goals Goal Patient Goal Type Associated Problems Recent Progress Patient-Stated? Author Blood Pressure < 140/90 Blood Pressure 102/69(2022 11:30 AM SUPERVISING AIRPLANE PILOT) No Melinda Newsome Quit smoking / using tobacco Lifestyle No Melinda Newsome documented as of this encounter Visit Diagnoses Diagnosis Essential hypertension- Primary Other insomnia documented in this encounter Care Teams Vending Machine Mechanic Relationship Specialty Start Date End Date Sveta Rai MD PCP - General Internal Medicine 02/22/13 12/07/16 Stevenson Almanza MD Neurology 08/16/14 documented as of this encounter
--- OUTSIDE RECORDS SUMMARY | 2024-09-18 09:35 | XMS_ITS | Encounter Summary ---
Author Organization [facility] Address [address] [facility] [place] [address] Care Team Providers Care Family Support Worker Name Role Phone Sveta Rai MD Primary Care Provider [phone] Stevenson Almanza MD Unavailable [phone] Reason for Referral * Procedure - Closed Specialty Diagnoses / Procedures Referred By Contlouie t Referred To Contact Cardiology Diagnoses Encounter for routine adult physical exam with abnormal findings Procedures EKG 12-LEAD Sveta Rai MD [address] [place] [address] DR NOONAN [address] [place] [id number] Referral ID Status Reason Start Date Expiration Date Visits Re quested Visits Authorized [id number] Closed 07/31/2015 01/27/2016 1 1 IO PRODUCER Reason for Visit * Reason Comments Complete Physical Exam Encounter Details Date Type Department Care Team (Late st Contact Info) Description 07/31/2015 8:00 AM STUDIO PRODUCER Office Visit [facility] - Family Medicine [address] [place] [address] Sveta Rai MD [address] [place] [address] [address] NOONAN [address] [place] [id number] Encounter for routine adult physical exam with abnormal findings (Primary Dx); Chronic allergic otitis media of left ear; Hot flashes, menopausal; Essential hypertension; Prediabetes; Major depressive disorder, recurrent episode, moderate (HCC); Mixed hyperlipidemia; Acquired hypothyroidism; MS (multiple sclerosis) (HCC); Vitamin D deficiency; Other insomnia Social History Tobacco Use Types Packs/Day Years Used Date Smoking Tobacco: Every Day Cigarettes 0.3 30 Started: 08/18/2013 Smokeless Tobacco: Never Tobacco Cessation:Ready to Q uit: No; Counseling Given: Yes Alcohol Use Standard Drinks/Week Comments Yes 0 [...] Sign Reading Time Taken Comments Blood Pressure 140/100 07/31/2015 9:11 AM STUDIO PRODUCER Pulse 80 07/31/2015 8:09 AM STUDIO PRODUCER Temperature - - Respiratory Rate 14 07/31/2015 8:09 AM STUDIO PRODUCER Oxygen Saturation - - Inhaled Oxygen Concentration - - Weight 109.3 kg (241 lb) 07/31/2015 8:09 AM STUDIO PRODUCER Height 162.6 cm (5' 4 ) 07/31/2015 8:09 AM STUDIO PRODUCER Body Mass Index 41.37 07/31/2015 8:09 AM STUDIO PRODUCER documented in this encounter Functional Status Functional [...] Instructions * Patient Instructions* Edith Cohn - 07/31/2015 8:11 AM STUDIO PRODUCER Caring for Your High Blood Pressure Healthy [...] Where can I go for more information? [place] [employer] National Center: http://www.americanheart.org 1. In the top header, click ???Conditions?? . 2. In the top header, click ???high blood pressure.?? 3. For a printable blood pressure tracker, scroll toward the bottom of the page to Related Tools, and click ???HBP Trackers.?? 1-797-UYG-USA-1 or ( ) National Heart, Lung and Blood [place]: http://www.nhlbi.nih.gov/health/infoctr/index.htm Where can I go for support and more information? There are many ways to quit smoking. Some may work better for you than others. Your caregiver can help you find the best plan to quit. Smokefree.gov Phone: 7-868-HSJC-NOW ( ) www.smokefree.gov [place] [employer] Phone: Phone: www.lung.org Instant Rewards [...] you to quit smoking. -Taken from www.smokefree.gov IO PRODUCER documented in this encounter Progress Notes * Edith Cohn - 08/06/2015 9:44 AM CSTQuick Note: rx called into pharmacy, low cholesterol sheet mailed, patient notified. IO PRODUCER * Sveta Rai MD - 08/05/2015 7:46 AM CSTQuick Note: Continue OTC vit d 1000 IU daily. Still prediabetic. TG higher than previous increase lipitor to 40 mg q hs. Follow strict low chol diet, send hand out. IO PRODUCER * Rocío Potter V - 08/03/2015 11:42 AM CST Changed PDx from Z00.00 to Z00.01 for new dx of otitis media and hot flashes. IO PRODUCER * Sveta Rai MD - 07/31/2015 8:30 AM CST .Subjective: Lucretia Rodriguez is a 49 y.o. female presents today for the evaluation of Chief Complaint Patient presents with ??? Complete Physical Exam - she used xanax temporarily during her grief period after her . She is better now, remains on Celexa 40 mg. She is using Xanax at night to help her with sleep. Discuss with her other option for insomnia. D/c xanax. Past Medical History Diagnosis Date ??? Heart attack 2010 ??? HTN (hypertension) ??? Hyperlipemia ??? Multiple sclerosis 2005 Dr. Almanza ??? H/O heart artery stent 2010 [id number] LAD( ) [facility] ??? H/O laparoscopic adjustable gastric banding 2009 ??? S/P tonsillectomy ??? Migraine ??? Hypothyroid ??? Depressive disorder, not elsewhere classified ??? Generalized anxiety disorder ??? Tension headache ??? Stomach ulcer ??? Anemia Past Surgical History Procedure Laterality Date ??? [...] lung ??? Migraine Sister Current Outpatient Prescriptions on File Prior to Visit Medication Sig Dispense Refill ??? meloxicam (MOBIC) [...] 0 Not specified per week Comment: Rarely Recent Labs Component Name 07/31/15 0936 SODIUM 143 POTASSIUM 4.7 CHLORIDE 109* CO2 27 BUN 17 CREATININE 0.77 GLUCOSE 92 CALCIUM 8.8 ALBUMIN 3.9 ALKPHOS 81 ALT 29 AST 22 TBIL 0.3 TPROT 7.2 EGFR >60 Recent Labs Component Name 07/31/15 0936 03/28/15 1949 01/23/15 1320 WBC 7.2 8.5 7.7 HGB 13.9 15.1 14.0 HCT 44.6 44.9 42.8 PLTCOUNT 202 189 235 Recent Labs Component Name 07/31/15 0936 01/23/15 1320 07/25/14 0759 CHOL 209* 153 165 TRIG 316* 141 230* HDL 44 49 36* LDLCALC 102 76 83 Recent Labs Component Name 07/31/15 0936 01/23/15 1320 07/25/14 0759 TSH 1.59 1.510 1.360 Lab results smartLinks are not currently available Review of Systems Constitutional: No unexplained fever, sweats. Eyes: Vision stable, no discomfort. Ears, nose, mouth, and throat: No mouth dryness, sores, hearing stable , no nasal discharge. left ear discomfort, off and on. ( recurrent left otitis media). Respiratory: No cough, dyspnea, wheezing, pleuritic pain. Cardiovascular: No exertional chest pain, palpitations, edema, claudication. Gastrointestinal: No bleeding, frequent reflux, dysphagia, change in bowels, pain. Genitourinary: No dysuria,frequency, bleeding. C/o hot flashes. Skin: No recent rashes, or pruritus. Breast: No masses, pain or nipple discharge. Hematologic/lymphatic: No history of anemia. No abnormal bleeding or bruising. Musculoskeletal: No painful joints, myalgia, swelling, weakness. Neurological: Stable gait, no numbness, tingling, syncope, dizziness. Behavioral/Psych: No sleep disturbance, memory changes, depression. Endocrine: No fatigue or weight change. Objective: Vitals: 07/31/15 0809 07/31/15 0911 BP: 110/88 140/100 Pulse: 80 Resp: 14 Weight: 109.317 kg (241 lb) Body mass index is 41.35 kg/(m^2). Estimated Creatinine Clearance: 105.6 mL/min (based on Cr of 0.77). General appearance- alert, well appearing, and in no distress Mental Status - alert, oriented to person, place, and time Skin - normal texture and turgor, no rashes Eyes - pupils equal and reactive, extraocular eye movements intact, sclera anicteric, EOM normal Ears - right ear normal, left TM red, dull. Nose - unremarkable Throat - mucous membranes moist, tongue midline, pharynx-no lesions or erythema Neck - tachea in midline, no JVD, carotid pulsations 2+ bilat. without bruits Thyroid - thyroid not enlarged, no obvious nodules or tenderness Chest - normal symmetric expiratory excursions, no dullness to percussion, breath sounds heard wellin all areas, no rales, wheezes, or rhonchi Heart - normal rate, regular rhythm, normal S1, S2, no murmurs, rubs, clicks or gallops Abdomen - normal bowel sounds, no hyperreasonance or tenderness to percussion, no organomegaly or masses Back exam - straight, no CVA or flank tenderness Musculoskeletal - no joint tenderness, deformity or swelling Extremities - peripheral pulses normal, no pedal edema, no clubbing or cyanosis Neurological - alert, oriented, CN II-XII normal, DTR's 2+ biceps, triceps, knees, and ankles, Assessment: Encounter Diagnoses Name Primary? Encounter for routine adult physical exam with abnormal findings Yes ??? Chronic allergic otitis media of left ear ??? Hot flashes, menopausal ??? Essential hypertension ??? Prediabetes ??? Major depressive disorder, recurrent episode, moderate ??? Mixed hyperlipidemia ??? Acquired hypothyroidism ??? MS (multiple sclerosis) ??? Vitamin D deficiency ??? Other insomnia Plan: Orders Placed This Encounter ??? COMPREHENSIVE METABOLIC PANEL ??? CBC W AUTO DIFFERENTIAL ??? TSH ??? LIPID PROFILE ??? HEMOGLOBIN A1C ??? VITAMIN D 25-HYDROXY ??? EKG 12-LEAD Standing Status: Future Number of Occurrences: 1 Standing Expiration Date: 07/31/2016 ??? HI ELECTROCARDIOGRAM, COMPLETE ??? fluticasone propionate (FLONASE) 50 MCG/ACT nasal spray Sig: [place] 2 Sprays into each nostril once daily Dispense: 1 Bottle Refill: 3 ??? amoxicillin-clavulanate (AUGMENTIN) 875-125 MG tablet Sig: Take 1 Tab by mouth every 12 hours Dispense: 20 Tab Refill: 0 ??? zolpidem (AMBIEN) 5 MG tablet Sig: Take 1 Tab by mouth nightly as needed for Insomnia Dispense: 30 Tab Refill: 0 ??? citalopram (CELEXA) 40 MG tablet Sig: Take 1 Tab by mouth once daily Dispense: 90 Tab Refill: 3 EKG: NSR, unchanged from previous. Further recommendations pending the above results and patient's clinical course. Return in about 4 months (around 11/29/2015) for hyperlipidemia, hypertension, depression, anxiety, insomnia. take Augmentin for left otitis media, continue Claritin and start Flonase. Will recheck next visit if still has problem with it was sent to ENT. hot flashes, she is tolerating okay. continue Celexa 40 mg use Ambien for insomnia p.r.n. schedule well-woman exam with me she is due for Pap smear and mammogram. IO PRODUCER documented in this encounter Plan of Treatment Upcoming Encounters Date Type Department Care Team (Late st Contact Info) Description 09/27/2024 2:20 PM STUDIO PRODUCER Office Visit [facility] Neurosciences [address] [facility] [address] [place] [address] [place] [address] [facility] [address] [place] [address] 09/28/2024 1:00 PM STUDIO PRODUCER Office Visit [facility] Medical Group - [address] [facility] [address] [place] [address] [place] [address] [place] [address] documented as of this encounter Goals Goal Patient Goal Type Associated Problems Recent Progress Patient-Stated? Author Blood Pressure < 140/90 Blood Pressure 102/69(2022 11:30 AM STUDIO PRODUCER) No Melinda Newsome Quit smoking / using tobacco Lifestyle No Melinda Newsome documented as of this encounter Procedures Procedure Name Priority Date/Time Associated Diagnosis Comments HEMOGLOBIN A1C Routine 07/31/2015 9:36 AM STUDIO PRODUCER Prediabetes Encounter for routine adult physical exam with abnormal findings VITAMIN D 25-HYDROXY Routine 07/31/2015 9:36 AM STUDIO PRODUCER Vitamin D deficiency Encounter for routine adult physical exam with abnormal findings CBC W AUTO DIFFERENTIAL Routine 07/31/2015 9:36 AM STUDIO PRODUCER Essential hypertension Mixed hyperlipidemia Encounter for routine adult physical exam with abnormal findings COMPREHENSIVE METABOLIC PANEL Routine 07/31/2015 9:36 AM STUDIO PRODUCER Essential hypertension Mixed hyperlipidemia Encounter for routine adult physical exam with abnormal findings TSH Routine 07/31/2015 9:36 AM STUDIO PRODUCER Essential hypertension Mixed hyperlipidemia Encounter for routine adult physical exam with abnormal findings LIPID PROFILE Routine 07/31/2015 9:36 AM STUDIO PRODUCER Essential hypertension Mixed hyperlipidemia Encounter for routine adult physical exam with abnormal findings documented in this encounter Results * (ABNORMAL) VITAMIN D 25-HYDROXY (07/31/2015 9:36 AM STUDIO PRODUCER) [facility] Vitamin D, 25 Hydroxy 29.34(L) 30 - 100 ng/mL [facility] INSURANCE BILL Comment: Vitamin D Status: ?Deficiency ? <20 ? ng/mL ?Insufficiency ?? 20-30 ??ng/mL ?Sufficiency ? 30-100 ng/mL ?Toxicity ? >100 ?ng/mL Blood specimen (specimen) BLOOD SPECIMEN / Unknown 07/31/2015 9:36 AM STUDIO PRODUCER 07/31/2015 12:55 PM STUDIO PRODUCER Narrative Resulting Agency Comment [facility] [address] [place] [address] ??[facility] [phone] Sveta Gross MD LAB - CHEMISTRY ORD ERABLES [facility] INSURANCE BILL * HEMOGLOBIN A1C (07/31/2015 9:36 AM STUDIO PRODUCER) Hemoglobin A1c 6.2 4.2 - 6.3 % [facility] INSURANCE BILL Comment:AVERAGE GLUCOSE MG/D L BLOOD 131 mg/dL Whole blood specimen (specimen) BLOOD SPECIMEN WITH EDTA / Unknown 07/31/2015 9:36 AM STUDIO PRODUCER 07/31/2015 12:55 PM STUDIO PRODUCER Narrative Resulting Agency Comment [facility] [address] ??Alejandra LINARES [id number] Sveta Gross MD LAB - CHEMISTRY ORD ERABLES [facility] INSURANCE BILL * (ABNORMAL) LIPID PROFILE (07/31/2015 9:36 AM STUDIO PRODUCER) Cholesterol 209(H) <200 mg/dL [facility] INSURANCE BILL Triglycerides 316(H) <150 mg/dL [facility] INSURANCE BILL HDL Cholesterol 44 >40 mg/dL [facility] INSURANCE BILL VLDL Calculated 63(H) <=30 mg/dL [facility] INSURANCE BILL LDL Calculated 102 <130 mg/dL [facility] INSURANCE BILL Blood specimen (specimen) BLOOD SPECIMEN / Unknown 07/31/2015 9:36 AM STUDIO PRODUCER 07/31/2015 12:55 PM STUDIO PRODUCER Narrative Resulting Agency Comment [facility] [address] ??Alejandra LINARES [id number] Sveta Gross MD LAB - CHEMISTRY ORD ERABLES [facility] INSURANCE BILL * TSH (07/31/2015 9:36 AM STUDIO PRODUCER) TSH 1.59 0.358 - 3.740 uIU/mL [facility] INSURANCE BILL Blood specimen (specimen) BLOOD SPECIMEN / Unknown 07/31/2015 9:36 AM STUDIO PRODUCER 07/31/2015 12:55 PM STUDIO PRODUCER Narrative Resulting Agency Comment [facility] [address] [facility] ??[facility] [id number] Sveta Gross MD LAB - CHEMISTRY ORD ERABLES [facility] INSURANCE BILL * CBC W AUTO DIFFERENTIAL (07/31/2015 9:36 AM STUDIO PRODUCER) Pathologist [facility] WBC 7.2 4.4 - 10.7 x10E9/L [facility] INSURANCE BILL RBC 5.04 3.80 - 5.20 x10E12/L [facility] INSURANCE BILL Hemoglobin 13.9 12.0 - 15.6 gm/dL [facility] INSURANCE BILL Hematocrit 44.6 35.9 - 45.5 % [facility] INSURANCE BILL MCV 88.5 80.7 - 98.3 fL [facility] INSURANCE BILL MCH 27.6 26.7 - 34.0 pg [facility] INSURANCE BILL MCHC 31.2 30.8 - 35.9 gm/dL [facility] INSURANCE BILL RDW 14.8 12.1 - 14.9 % [facility] INSURANCE BILL Platelet Count 202 153 - 416 x10E9/L [facility] INSURANCE BILL Comment:MPV FL BLOOD (SSM) 1 1.1 fl 9.4-12.9 Granulocytes % 48.3 44.0 - 73.0 % [facility] INSURANCE BILL Lymphocytes % 37.8 20.0 - 43.0 % [facility] INSURANCE BILL Monocytes % 8.4 5.0 - 13.0 % [facility] INSURANCE BILL Eosinophils % 4.2 0.0 - 6.0 % [facility] INSURANCE BILL Basophils % 1.0 0.0 - 2.0 % [facility] INSURANCE BILL Granulocytes Absolute 3.47 2.01 - 7.14 x10E9/L [facility] INSURANCE BILL Lymphocytes Absolute 2.71 1.07 - 3.94 x10E9/L [facility] INSURANCE BILL Monocytes Absolute 0.60 0.26 - 1.07 x10E9/L [facility] INSURANCE BILL Eosinophils Absolute 0.30 0 - 0.47 x10E9/L [facility] INSURANCE BILL Basophils Absolute 0.07 0 - 0.08 x10E9/L [facility] INSURANCE BILL Immature Granulocytes 0.3 0 - 1 % [facility] INSURANCE BILL Immature Granulocytes Absolute 0.02 0.00 - 0.06 x10E9/L [facility] INSURANCE BILL nRBC 0 /100 WBC [facility] INSURANCE BILL Blood specimen (specimen) BLOOD SPECIMEN / Unknown 07/31/2015 9:36 AM STUDIO PRODUCER 07/31/2015 12:55 PM STUDIO PRODUCER Narrative Resulting Agency Comment [facility] [address] [facility] ??[facility] [id number] Sveta Gross MD LAB - HEMATOLOGY OR DERABLES [facility] INSURANCE BILL * (ABNORMAL) COMPREHENSIVE METABOLIC PANEL (07/31/2015 9:36 AM STUDIO PRODUCER) Glucose 92 74 - 106 mg/dL [facility] INSURANCE BILL BUN 17 7 - 21 mg/dL [facility] INSURANCE BILL Creatinine 0.77 0.50 - 1.30 mg/dL [facility] INSURANCE BILL eGFR by MDRD >60 >60 mL/min/1.7 3m2 [facility] INSURANCE BILL eGFR by MDRD >60 >60 mL/min/1.7 3m2 [facility] INSURANCE BILL Sodium 143 136 - 145 mmol/L [facility] INSURANCE BILL Potassium 4.7 3.5 - 5.1 mmol/L [facility] INSURANCE BILL Chloride 109(H) 98 - 107 mmol/L [facility] INSURANCE BILL CO2 27 22 - 31 mmol/L [facility] INSURANCE BILL Calcium 8.8 8.5 - 10.1 mg/dL [facility] INSURANCE BILL Protein Total 7.2 6.4 - 8.2 gm/dL [facility] INSURANCE BILL Albumin 3.9 3.4 - 5.0 gm/dL [facility] INSURANCE BILL Bilirubin Total 0.3 0.2 - 1.0 mg/dL [facility] INSURANCE BILL Alkaline Phosphatase 81 38 - 126 U/L [facility] INSURANCE BILL AST 22 5 - 40 U/L [facility] INSURANCE BILL ALT 29 12 - 78 U/L [facility] INSURANCE BILL Blood specimen (specimen) BLOOD SPECIMEN / Unknown 07/31/2015 9:36 AM STUDIO PRODUCER 07/31/2015 12:55 PM STUDIO PRODUCER Narrative Resulting Agency Comment [facility] [address] [facility] [address] ??[place] [id number] Sveta Gross MD LAB - CHEMISTRY ORD ERABLES [facility] INSURANCE BILL * EKG 12-LEAD (07/31/2015) Sveta Gross MD ECG ORDERABLES Performing Organization Address City/[facility]/ZIP Co de Phone Number [facility] RESULT SCAN documented in this encounter Visit Diagnoses Diagnosis Encounter for routine adult physical exam with abnormal findings- Primary Chronic allergic otitis media of left ear Other and unspecified chronic nonsuppurative otitis media Hot flashes, menopausal Symptomatic menopausal or female climacteric states Essential hypertension Prediabetes Other abnormal glucose Major depressive disorder, recurrent episode, moderate (HCC) Major depressive disorder, recurrent episode, moderate Mixed hyperlipidemia Acquired hypothyroidism MS (multiple sclerosis) (HCC) Multiple sclerosis Vitamin D deficiency Other insomnia documented in this encounter Care Teams Family Support Worker Relationship Specialty Start Date End Date Sveta Rai MD PCP - General Internal Medicine 02/22/13 12/07/16 Stevenson Almanza MD Neurology 08/16/14 documented as of this encounter
--- OUTSIDE RECORDS SUMMARY | 2024-09-18 09:35 | XMS_ITS | Encounter Summary ---
Author Organization [facility] Address [address] [place] [address] Care Team Providers Care Maintenance Service Supervisor Name Role Phone Sveta Rai MD Primary Care Provider Stevenson Almanza MD Unavailable [phone] Reason for Visit * Reason Onset Date Comments Results 02/22/2015 Encounter Details Date Type Department Care Team (Late st Contact Info) Description 02/22/2015 Telephone 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 Trial of meloxicam, if not improving in [address] Jarvis. documented in this encounter Plan of Treatment Upcoming Encounters Date Type Department Care Team (Late st Contact Info) Description 09/27/2024 2:20 PM CLINICAL RESEARCH NURSE COORDINATOR Office Visit [facility] Neurosciences [address] [facility] [address] [place] [address] [place] [address] [facility] [address] [place] [address] 09/28/2024 1:00 PM CLINICAL RESEARCH NURSE COORDINATOR Office Visit [facility] [place] [address] [address] [facility] [address] [place] [address] [place] [address] [address] [facility] [address] [place] [address] documented as of this encounter Goals Goal Patient Goal Type Associated Problems Recent Progress Patient-Stated? Author Blood Pressure < 140/90 Blood Pressure 102/69(2022 11:30 AM CLINICAL RESEARCH NURSE COORDINATOR) No Melinda Newsome Quit smoking / using tobacco Lifestyle No Melinda Newsome documented as of this encounter Visit Diagnoses Not on filedocumented in this encounter Care Teams Maintenance Service Supervisor Relationship Specialty Start Date End Date Sveta Rai MD PCP - General Internal Medicine 02/22/13 12/07/16 Stevenson Almanza MD Neurology 08/16/14 documented as of this encounter
--- OUTSIDE RECORDS SUMMARY | 2024-09-18 09:35 | XMS_ITS | Encounter Summary ---
Author Organization [facility] Address [address] [facility] [place] [address] Care Team Providers Care Concrete Bucket Hooker Name Role Phone Sveta Rai MD Primary Care Provider Stevenson Almanza MD Unavailable Reason for Visit * Reason Comments Refill Request Encounter Details Date Type Department Care Team (Late st Contact Info) Description 09/03/2014 Refill [facility] Medical [facility] - Family Medicine [address] [place] [address] Sveta Rai MD [address] [place] [address] [address] Refill Request Social History Tobacco Use Types [...] * Telephone Encounter - Melinda Newsome - 09/05/2014 8:25 AM CST Rx approved PACKER documented in this encounter Plan of Treatment Upcoming Encounters Date Type Department Care Team (Late st Contact Info) Description 09/27/2024 2:20 PM SHOT PACKER Office Visit [facility] Neurosciences [address] [facility] [address] [place] [address] [place] [address] [facility] [address] [place] [address] 09/28/2024 1:00 PM SHOT PACKER Office Visit [facility] [place] [address] [address] [facility] [address] [place] [address] [place] [address] [address] [facility] [address] [place] [address] documented as of this encounter Goals Goal Patient Goal Type Associated Problems Recent Progress Patient-Stated? Author Blood Pressure < 140/90 Blood Pressure 102/69(2022 11:30 AM SHOT PACKER) No Melinda Newsome Quit smoking / using tobacco Lifestyle No Melinda Newsome documented as of this encounter Visit Diagnoses Not on filedocumented in this encounter Care Teams Concrete Bucket Hooker Relationship Specialty Start Date End Date Sveta Rai MD PCP - General Internal Medicine 02/22/13 12/07/16 Stevenson Almanza MD Neurology 08/16/14 documented as of this encounter
--- OUTSIDE RECORDS SUMMARY | 2024-09-18 09:35 | XMS_ITS | Encounter Summary ---
Author Organization [facility] Health Address [address] [facility] [place] [address] Care Team Providers Care Biscuitware Brusher Name Role Phone Sveta Rai MD Primary Care Provider [phone] Stevenson Almanza MD Unavailable [phone] Reason for Visit * Radiology Services (Routine) - Closed Specialty Diagnoses / Procedures Referred By Contac t Referred To Contact MRI Diagnoses Multiple sclerosis exacerbation (HCC) Procedures MRI SPINE CERVICAL [place] [id number] [address] Dp Mri [address] [place] [address] Referral ID Status Reason Start Date Expiration Date Visits Re quested Visits Authorized [id number] Closed 11/12/2015 12/27/2015 1 1 Encounter Details Date Type Department Care Team (Latest Contact Info) Description 11/13/2015 4:48 PM CABLE HOOKER - 11/13/2015 11:59 PM CABLE HOOKER Hospital Encounter [facility] Health Imaging Services - [place] [address] [place] [address] [place] [address] [address] Discharge Disposition: Home or Self [...] routine adult physical exam with abnormal findings [place] 2 Sprays into each nostril once daily [...] PO) Take by mouth once daily 12/31/2017 [place]-3 Fatty Acids (FISH OIL) 1000 MG capsule [...] st Contact Info) Description 09/27/2024 2:20 PM CABLE HOOKER Office Visit [facility] Health Neurosciences [address] [address] [place] [address] [facility] [address] [place] [address] 09/28/2024 1:00 PM CABLE HOOKER Office [place] [facility] [place] [address] Michele Barrett, [address] [address] [place] [address] [address] [facility] [address] [place] [address] documented as of this encounter Goals Goal Patient Goal Type Associated Problems Recent Progress Patient-Stated? Author Blood Pressure < 140/90 Blood Pressure 102/69(2022 11:30 AM CABLE HOOKER) No Melinda Newsome Quit smoking / using tobacco Lifestyle No Melinda Newsome documented as of this encounter Procedures Procedure Name Priority Date/Time Associated Diagnosis Comments MRI CERVICAL SPINE WWO CONT Routine 11/13/2015 6:24 PM CABLE HOOKER Multiple sclerosis exacerbation (HCC) documented in this encounter Results * MRI SPINE CERVICAL WITH AND WITHOUT CONTRAST (11/13/2015 6:24 PM CABLE HOOKER) Anatomical Region Laterality Modality Spine Magnetic Resonan ce 11/14/2015 8:04 AM CABLE HOOKER Impressions 11/14/2015 8:40 AM CABLE HOOKER No abnormal signal intensity is seen in the cervical spinal cord to suggest the presence of demyelination. Disc herniations are present from C3-4 through C6-7 but do not result in significant central canal stenosis. Edited by Teresita Shea on 11/14/2015 8:22 AM Narrative 11/14/2015 8:40 AM CABLE HOOKER MRI CERVICAL SPINE Indication: Multiple sclerosis. Bilateral [...] 8:22 AM Stevenson Almanza MD MR ORDERABLES documented in this encounter Visit Diagnoses Diagnosis Multiple sclerosis exacerbation (HCC) Multiple sclerosis documented in this encounter Care Teams Biscuitware Brusher Relationship Specialty Start Date End Date Sveta Rai MD PCP - General Internal Medicine 02/22/13 12/07/16 Stevenson Almanza MD Neurology 08/16/14 documented as of this encounter
--- OUTSIDE RECORDS SUMMARY | 2024-09-18 09:35 | XMS_ITS | Encounter Summary ---
Author Organization [facility] Health Address [address] [facility] [place] [address] Care Team Providers Care Rotary Soil Stabilizer Operator Name Role Phone Sveta Rai MD Primary Care Provider Stevenson Almanza MD Unavailable Reason for Visit * Reason Comments Multiple Sclerosis * Evaluate & Treat - Closed Specialty Diagnoses / Procedures Referred By Ernesto barrios Referred To Contact Neurology Diagnoses MS (multiple sclerosis) ([facility]) Sveta Rai MD [address] [place] [address] [address] [place] [address] [place] [address] [address] Referral ID Status Reason Start Date Expiration Date V isits Requested Visits Authorized [id number] Closed Specialty Services Required 07/25/2014 01/21/2015 1 1 Encounter Details Date Type Department Care Team (Late st Contact Info) Description 08/23/2014 2:40 PM PIECE DYEING MACHINE TENDER Office Visit [facility] Health Neurosciences [address] [place] [address] Sveta Rai MD [address] [facility] [address] [place] [address] [place] [address] [address] MS (multiple sclerosis) (HCC) (Primary [...] AM CDT documented as of this encounter Patient Instructions * Patient Instructions* Ashly Burch - 08/23/2014 3:49 PM PIECE DYEING MACHINE TENDER Call physician if symptoms worsen or with any questions. Take Medications as prescribed. For descriptions of a variety of neurological conditions please visit: [email or web address] E DYEING MACHINE TENDER documented in this encounter Progress Notes * Stevenson Almanza MD - 08/23/2014 3:42 PM CST Neurology consultation Requesting physician: Dr Flores Reason for consultation: multiple sclerosis History of present illness:I have been asked to see this patient in consultation and render opinionin regard to MS. This 48-year-old female was diagnosed with multiple sclerosis in 2005. At that time her right side went numb. She has seen physicians at the [facility] who concurred with thediagnosis. She initially took Rebif and then this was discontinued because her liver enzymes were elevated. She then used Avonex and then Copaxone. She is not currently taking any disease modifying therapies. Last attack was in 2005. She has had none since. She does complain of some intermittent numbness ofher left foot. She denies double vision or loss of vision. She has not had a Lhermitte's sign in many years. She denies any band dysesthesias or bladder problems. She denies ever having had a lumbar puncture. She does complain of fatigue. She has been off disease modifying therapy since February 2012 and has not had any attacks. She brought her MRI from July 2014 which shows minimal disease. She did not bring any other MRIs for comparison. She does have Amaya's fingers on the MRI scan. Outpatient Prescriptions Marked as Taking for the 08/23/14 encounter (Appointment) with Stevenson Almanza MD Medication Sig Dispense Refill ??? phentermine (IONAMINE) 15 MG capsule Take 15 mg by mouth once daily. ??? topiramate (TOPAMAX) 25 MG tablet Take 25 mg by mouth once daily. ??? lisinopril (PRINIVIL; ZESTRIL) 40 MG tablet Take 1 Tab by mouth once daily. 30 Tab 5 ??? citalopram (CELEXA) 20 MG tablet Take 1 Tab by mouth once daily. 30 Tab 3 ??? nitroglycerin (NITROSTAT) 0.4 MG tablet Dissolve 1 Tab under the tongue every 5 minutes as needed for Angina. 100 Tab 3 ??? atorvastatin (LIPITOR) 20 MG tablet Take 1 Tab by mouth at bedtime. 30 Tab 5 ??? metoprolol tartrate IR (LOPRESSOR) 50 MG tablet Take 1 tablet by mouth 2 times daily. 60 tablet5 ??? levothyroxine (SYNTHROID) 88 MCG tablet TAKE ONE TABLET BY MOUTH EVERY DAY BEFORE BREAKFAST 30 Tab 5 ??? aspirin 325 MG tablet Take 325 mg by mouth once daily. ??? B Complex Vitamins (B-COMPLEX/B-12 PO) Take 1,000 mcg by mouth. ??? Cholecalciferol (VITAMIN D) 1000 UNIT capsule Take 2,000 Units by mouth once daily. Allergies Allergen Reactions ??? Sulfa Drugs ??? Latex Past Medical History Diagnosis Date ??? Heart attack 2010 ??? HTN (hypertension) ??? Hyperlipemia ??? Multiple sclerosis 2006 ??? H/O heart artery stent 2010 [id number] LAD( ) [facility] ??? H/O laparoscopic adjustable [...] Years of Education: N/A Occupational History ??? [employer] Social History Main Topics ??? Smoking [...] Uncle ??? Cancer Sister ??? Migraine Sister ROS: Positive for the present illness, excessive sweating, blurred vision, tinnitus, depression. 11system review was carried out and was otherwise unremarkable. Exam: There were no vitals taken for this visit. Well appearing and well nourished Cognitive: Alert and oriented X 3. Attention concentration, fund of knowledge and recent and remotememory are intact. Central language function is normal without evidence of aphasia. Cranial nerves: II - Intact visual acuity. FFOV to confrontation. Fundi normal with normal optic nerves. III, IV, - EOMs intact without evidence of diplopia or nystagmus. GERALDO without MG V - Motor and Sensory components intact. VII - Facial movement intact. VIII - Hearing intact. Normal Dc and Rinne IX, X - Palate midline and elevates normally. Intact gag. Uvula midline. XII - Tongue protrudes in the midline without atrophy or fasciculations. Neck: ROM normal. Carotids without bruits. Motor: Normal tone, power and bulk. Sensory: Intact to touch and vibration. Reflexes: Symmetric tr-1 at Biceps, Triceps, Brachioradialis, Knees and Ankles. Plantar reflexes are flexor bilaterally. Cerebellum: Intact FTN. Drift: Negative Gait: Normal station and gait. MRI reviewed: Jose Luis's jocelyn ASSESSMENT: MS - mild PLAN: Obtain old films Discuss meds 6 month follow up Discussion: this patient seems to have mild multiple sclerosis. She has not had an attack since 2005. She is not taking disease modifying therapy since 2011. She will obtain her old MRIs for my review and I will compare them. I indicated if she does have progressive lesions then she should be on medication. If she has intact she should be on medication. In the interim will continue off medicine and further recommendations forthcoming after having an opportunity review the films. I discuss the Morin criteria with her. E DYEING MACHINE TENDER documented in this encounter Plan of Treatment Upcoming Encounters Date Type Department Care Team (Late st Contact Info) Description 09/27/2024 2:20 PM PIECE DYEING MACHINE TENDER Office Visit [facility] Neurosciences [address] [facility] [address] [place] [phone] [place] [address] [facility] [address] [place] [phone] 09/28/2024 1:00 PM PIECE DYEING MACHINE TENDER Office Visit [facility] Medical Group - [address] Michele Barrett, [address] [phone] [place] [address] [address] [facility] [address] [place] [address] documented as of this encounter Goals Goal Patient Goal Type Associated Problems Recent Progress Patient-Stated? Author Blood Pressure < 140/90 Blood Pressure 102/69(2022 11:30 AM PIECE DYEING MACHINE TENDER) No Melinda Newsome Quit smoking / using tobacco Lifestyle No Melinda Newsome documented as of this encounter Visit Diagnoses Diagnosis MS (multiple sclerosis) (HCC)- Primary Multiple sclerosis documented in this encounter Care Teams Rotary Soil Stabilizer Operator Relationship Specialty Start Date End Date Sveta Rai MD PCP - General Internal Medicine 02/22/13 12/07/16 Stevenson Almanza MD Neurology 08/16/14 documented as of this encounter
--- OUTSIDE RECORDS SUMMARY | 2024-09-18 09:35 | XMS_ITS | Encounter Summary ---
Author Organization [facility] Address [address] [facility] [place] [address] Care Team Providers Care Top Coater Name Role Phone Sveta Rai MD Primary Care Provider Stevenson Almanza MD Unavailable [phone] Reason for Visit * Reason Comments Refill Request Encounter Details Date Type Department Care Team (Late st Contact Info) Description 03/16/2015 Refill [facility] Medical [facility] - Family Medicine [address] [place] [address] Sveta Rai MD [address] [place] [address] DR [address] [place] [address] Refill Request Social History Tobacco Use Types [...] st Contact Info) Description 09/27/2024 2:20 PM PARTS CLERK Office Visit [facility] Neurosciences [address] [facility] [address] [place] [phone] [place] [address] [facility] [address] [place] [address] 09/28/2024 1:00 PM PARTS CLERK Office Visit [facility] [place] [address] Michele Barrett, Juan [address] [place] [address] [place] [address] [address] [facility] [address] [place] [address] documented as of this encounter Goals Goal Patient Goal Type Associated Problems Recent Progress Patient-Stated? Author Blood Pressure < 140/90 Blood Pressure 102/69(2022 11:30 AM PARTS CLERK) No Melinda Newsome Quit smoking / using tobacco Lifestyle No Melinda Newsome documented as of this encounter Visit Diagnoses Not on filedocumented in this encounter Care Teams Top Coater Relationship Specialty Start Date End Date Sveta Rai MD PCP - General Internal Medicine 02/22/13 12/07/16 Stevenson Almanza MD Neurology 08/16/14 documented as of this encounter
--- OUTSIDE RECORDS SUMMARY | 2024-09-18 09:35 | XMS_ITS | Encounter Summary ---
Author Organization [facility] Address [address] [facility] [place] [address] Care Team Providers Care Heater Tender Name Role Phone Sveta Rai MD Primary Care Provider Stevenson Almanza MD Unavailable [phone] Reason for Visit * Reason Onset Date Comments MEDICATION REFILL 03/19/2015 Encounter Details Date Type Department Care Team (Late st Contact Info) Description 03/19/[address] [facility] Medical [facility] - Family Medicine [address] [place] [id number] Sveta Rai MD [address] [place] [address] [address]ONAN [address] [place] [phone] MEDICATION REFILL Social History Tobacco Use Types [...] st Contact Info) Description 09/27/2024 2:20 PM SURGICAL TRAINING SPECIALIST Office Visit [facility] Neurosciences [address] [facility] [address] [place] [phone] [place] [address] [facility] [address] [place] [phone] 09/28/2024 1:00 PM SURGICAL TRAINING SPECIALIST Office Visit [facility] [place] [address] DePauping Barrett, Juan [address] [place] [address] [place] [address] [address] [facility] [address] [place] [address] documented as of this encounter Goals Goal Patient Goal Type Associated Problems Recent Progress Patient-Stated? Author Blood Pressure < 140/90 Blood Pressure 102/69(2022 11:30 AM SURGICAL TRAINING SPECIALIST) No Melinda Newsome Quit smoking / using tobacco Lifestyle No Melinda Newsome documented as of this encounter Visit Diagnoses Not on filedocumented in this encounter Care Teams Heater Tender Relationship Specialty Start Date End Date Sveta Rai MD PCP - General Internal Medicine 02/22/13 12/07/16 Stevenson Almanza MD Neurology 08/16/14 documented as of this encounter
--- OUTSIDE RECORDS SUMMARY | 2024-09-18 09:36 | XMS_ITS | Encounter Summary ---
Author Organization [facility] Address [address] [place] [address] Care Team Providers Care Direct Care Provider Name Role Phone Sveta Rai MD Primary Care Provider Reason for Visit * Reason Comments Pain Abdominal abd pain since her g all bladder surgery on this month, states she has been having pain n/v and went to see pcp, was told if still feeling bad come to ER, here vss Encounter Details Date Type Department Care Team (Late st Contact Info) Description 08/26/2013 10:14 AM DIRECTOR NICU - 08/26/2013 5:41 PM DIRECTOR NICU Emergency ER at [address] [address] Luciano Nguyễn, DO [address] [place] [id number] Abdominal pain, acute (Primary Dx) Discharge Disposition: Home or Self Care Social History Tobacco Use Types Packs/Day Years Used Date Smoking Tobacco: Former Cigarettes 0.5 30 1 10/08/1982 - 08/07/2013 Smokeless Tobacco: Never Alcohol Use Standard Drinks/Week Comments No 0 (1 standard drink = 0.6 oz pur e alcohol) Sex and Gender Information Value Date Recorded Sex Assigned at Female 12/01/2020 7:48 AM CDT Gender Identity Female 12/01/2020 7:48 AM CDT Sexual Orientation Straight 12/01/2020 7: 48 AM CDT documented as of this encounter Last Filed Vital Signs Vital Sign Reading Time Taken Comments Blood Pressure 117/96 08/26/2013 5:00 PM DIRECTOR NICU Pulse 68 08/26/2013 5:05 PM DIRECTOR NICU Temperature 36.8 ??C (98.2 ??F) 08/26/2013 9:55 AM CS T Respiratory Rate 13 08/26/2013 5:05 PM DIRECTOR NICU Oxygen Saturation 95% 08/26/2013 5:05 PM DIRECTOR NICU Inhaled Oxygen Concentration - - Weight 101.2 kg (223 lb) 08/26/2013 9:55 AM DIRECTOR NICU Height - - Body Mass Index 38.28 08/23/2013 12:58 PM DIRECTOR NICU documented in this encounter Discharge Instructions * Discharge Instructions* Luciano Nguyễn DO - 08/26/2013 5:04 PM DIRECTOR NICU Medications as prescribed. Follow up with your doctors in the next few days. Drink plenty of fluids. Return to the ER for any worsening symptoms. CTOR NICU * Discharge Instructions* Document, Scanned - 08/28/2013 10:31 AM DIRECTOR NICU CTOR NICU documented in this encounter Medications at Time of Discharge Medication Sig Dispensed Refills Start Date End Date Cholecalciferol (VITAMIN D) 1000 UNIT capsule Take 5 (five) capsules by mouth once daily aspirin 325 MG tablet Take 81 mg by mouth once daily 04/17/2020 B Complex Vitamins (B-COMPLEX/B-12 PO) Take 1,000 mcg by mouth. 12/08/2016 hydrocodone-acetaminophe n (NORCO) 5-325 MG tablet Take 1 Tab by mouth every 6 hours as needed for Pain. 45 Tab 0 08/26/2013 09/01/2013 hydrocodone-acetaminophe n (NORCO) 5-325 MG tablet Take 1-2 Tabs by mouth every 4 hours as needed. 20 Tab 0 08/14/2013 09/01/2013 lansoprazole (PREVACID) 30 MG capsule Take 1 Cap by mouth daily before breakfast. 30 Cap 0 08/26/2013 09/01/2013 levothyroxine (TIROSINT) 88 MCG capsuleIndications:Hypot hyroidism Take 1 Cap by mouth daily before breakfast. 90 Cap 2 02/22/2013 12/29/2013 lisinopril (PRINIVIL; ZESTRIL) 40 MG tablet Take 40 mg by mouth once daily. 05/12/2014 metoclopramide (REGLAN) 10 MG tablet Take 1 Tab by mouth 3 times daily as needed for Nausea/Vomiting. 15 Tab 0 08/26/2013 09/28/2013 metoprolol tartrate IR (LOPRESSOR) 25 MG tabletIndications:HTN (hypertension) Take 1 Tab by mouth 2 times daily. 60 Tab 2 05/02/2013 09/12/2013 nitroglycerin (NITROSTAT) 0.4 MG tablet Dissolve 1 Tab under the tongue every 5 minutes as needed for Angina. 100 Tab 3 02/22/2013 05/11/2014 ondansetron (ZOFRAN) 4 MG tabletIndications:Nausea alone Take 1 Tab by mouth every 8 hours as needed for Nausea/Vomiting. 30 Tab 0 08/23/2013 12/21/2013 ondansetron, disintegrating, (ZOFRAN ODT) 4 MG tabletIndications:nausea Take 4 mg by mouth every 6 hours as needed. Allow tablet to dissolve on the tongue Indications: nausea 09/01/2013 documented as of this encounter ED Notes * Monique Fatima RN - 08/26/2013 5:00 PM CST Patient is resting comfortably. Denies pain VSS, will continue to monitor. CTOR NICU * Monique Fatima RN - 08/26/2013 4:47 PM CST Patient is resting comfortably. VSS, denies pain, completing fluid challenge, will continue to monitor. CTOR NICU * Monique Fatima RN - 08/26/2013 3:41 PM CST C/o headache 04/16, pain meds given, updated that MD would be in to speak with pt. Updated to normaltest results. CTOR NICU * Monique Fatima RN - 08/26/2013 3:30 PM CST Patient is resting comfortably. VSS, pt updated to care plan, will continue to monitor. CTOR NICU * Monique Fatima RN - 08/26/2013 3:00 PM CST Patient is resting comfortably. VSS, denies pain, will continue to monitor. CTOR NICU * Monique Fatima RN - 08/26/2013 2:12 PM CST Returned from CT CTOR NICU * Monique Fatima RN - 08/26/2013 1:47 PM CST Pt transported to CT CTOR NICU * Monique Fatima RN - 08/26/2013 1:20 PM CST Received report on pt from Ro VIZCAINO, MARV, updated pt to care plan, will continue to monitor. CTOR NICU * Chitra Ram RN - 08/26/2013 10:51 AM CST Patient c/o abdominal pain to right upper quad radiating to her back. Denies urinary symptoms. She did have cholecystectomy 08/10 and has continued to have intermittent episodes of severe nausea . Dr. Nguyễn has seen her, orders rec'd. CTOR NICU * Luciano Nguyễn, - 08/26/2013 10:22 AM CST Provider contact with the patient: 08/26/2013 10:22 Lucretia Rodriguez [id number] [facility] EM[facility]ENCY [facility]PARTMENT History Chief Complaint Patient presents with ??? Pain Abdominal abd pain since her gall bladder surgery on this month, states she has been having pain n/v and went to see pcp, was told if still feeling bad come to ER, here vss The above narrative is pulled from the triage note. It is not from the author of this note. HPI 10:43 AM Lucretia Rodriguez, a 47 y.o. female 17 days s/p cholecystectomy with a past medical history that includes--cholelithiasis, CAD s/p [place] and coronary stent placement, MS, HTN, hyperlipidemia--presents to the ER c/o upper abdominal pain radiating around her right side. Intermittent since cholecystectomy 16 days ago (08/10/2013), but pain has been constant for the pastweek, waxing and waning in severity. Abdominal pain rated 6/10 at this time. Associated symptoms include: N/V/D that started Thursday night (4 days ago). Last vomited 2 mornings ago. Saw her PCP 3 days ago, instructed patient to keep her updated how she was feeling later in the week. S/p cholecystectomy performed by Dr. Alvares. Has not f/u with him. Tolerated PO toast and soup last night. Feels nauseous currently. Per [facility] electronic medical record, pt's PCP sent C.diff study to lab give pt's recent hospitalization, which was negative. Abdominal surgical history includes: lap band gastric bypass (performed at [facility] several years ago), cholecystectomy, ERCP. PCP: Sveta Terry Past Medical History Diagnosis Date ??? Heart attack 2010 ??? HTN (hypertension) ??? Hyperlipemia ??? Multiple sclerosis 2006 ??? H/O heart artery stent [id number] LAD( dr.Gauer) negrete ??? H/O laparoscopic adjustable gastric banding 2009 ??? S/P tonsillectomy ??? Migraine ??? Hypothyroid ??? Depressive disorder, not elsewhere classified ??? Generalized anxiety disorder Past Surgical History Procedure Date ??? Coronary stent placement was on plavix for 9 month, now on ASA ??? Tonsillectomy ??? Sys lap band 10.0 2009 ??? Tubal ligation, laparoscopic ??? Cholecystectomy, laparoscopic 08/09/2013 ??? Cholecystectomy, laparoscopic 08/10/2013 LAPAROSCOPIC CHOLECYSTECTOMY ??? Ercp 08/12/2013 ERCP Family History Problem Relation Age of Onset ??? Cancer Maternal Grandmother laranyx ??? Cancer Maternal Grandfather lung ??? Diabetes Sister ??? Heart Failure Father 48 heart attack ??? Heart Failure Mother 63 heart attack ??? Hypercholesterolemia Mother ??? Hypertension Sister History Social History ??? Marital Status: Spouse Name: N/A Number of Children: 2 ??? Years of Education: N/A Occupational History ??? [employer] Social History Main Topics ??? Smoking status: Former Smoker -- 0.5 packs/day for 30 years Types: Cigarettes Quit date: 08/07/2013 ??? Smokeless tobacco: Never Used ??? Alcohol Use: No ??? Drug Use: No ??? Sexually Active: Yes -- Male partner(s) Other Topics Concern ??? Exercise No Social History Narrative ??? No narrative on file Review of Systems Review of Systems Constitutional: Negative for fever and chills. Eyes: Negative for blurred vision. Respiratory: Negative for cough and shortness of breath. Cardiovascular: Negative for chest pain and leg swelling. Gastrointestinal: Positive for nausea, vomiting, abdominal pain and diarrhea. Negative for heartburn, constipation, blood in stool and melena. Genitourinary: Negative. Negative for dysuria and hematuria. Musculoskeletal: Negative for back pain. Skin: Negative for rash. Neurological: Negative for dizziness and headaches. All other systems reviewed and are negative. Physical Exam BP 134/97 Pulse 93 Temp 98.2 ??F Resp 18 Wt 101.152 kg (223 lb) SpO2 98% Physical Exam Nursing note and vitals reviewed. Constitutional: She is oriented to person, place, and time and well-developed, well-nourished, and in no distress. Vital signs are normal. HENT: Head: Normocephalic and atraumatic. Right Ear: External ear normal. Left Ear: External ear normal. Eyes: EOM are normal. Pupils are equal, round, and reactive to light. Neck: Normal range of motion. Neck supple. Cardiovascular: Normal rate, regular rhythm, S1 normal, S2 normal, normal heart sounds and intact distal pulses. Pulmonary/Chest: Effort normal and breath sounds normal. Abdominal: Soft. She exhibits no distension and no mass. Bowel sounds are hypoactive. There is tenderness (across upper abdomen). There is guarding. There is no rebound. Musculoskeletal: Normal range of motion. She exhibits no tenderness. Neurological: She is alert and oriented to person, place, and time. GCS score is 15. Skin: Skin is warm, dry and intact. No rash noted. She is not diaphoretic. Psychiatric: Mood and affect normal. Medications Current Outpatient Prescriptions Medication Status Sig Dispense Refill ??? metoclopramide (REGLAN) 10 MG tablet Active Take 1 Tab by mouth 3 times daily as needed for Nausea/Vomiting. 15 Tab 0 ??? hydrocodone-acetaminophen (NORCO) 5-325 MG tablet Active Take 1 Tab by mouth every 6 hours as needed for Pain. 45 Tab 0 ??? lansoprazole (PREVACID) 30 MG capsule Active Take 1 Cap by mouth daily before breakfast. 30 Cap0 ??? ondansetron (ZOFRAN) 4 MG tablet Active Take 1 Tab by mouth every 8 hours as needed for Nausea/Vomiting. 30 Tab 0 ??? hydrocodone-acetaminophen (NORCO) 5-325 MG tablet Active Take 1-2 Tabs by mouth every 4 hours as needed. 20 Tab 0 ??? lisinopril (PRINIVIL; ZESTRIL) 40 MG tablet Active Take 40 mg by mouth once daily. ??? aspirin 325 MG tablet Active Take 325 mg by mouth once daily. ??? ondansetron, disintegrating, (ZOFRAN ODT) 4 MG tablet Active Take 4 mg by mouth every 6 hours as needed. Allow tablet to dissolve on the tongue Indications: nausea ??? metoprolol tartrate IR (LOPRESSOR) 25 MG tablet Active Take 1 Tab by mouth 2 times daily. 60 Tab 2 ??? B Complex Vitamins (B-COMPLEX/B-12 PO) Active Take 1,000 mcg by mouth. ??? Cholecalciferol (VITAMIN D) 1000 UNIT capsule Active Take 2,000 Units by mouth once daily. ??? levothyroxine (TIROSINT) 88 MCG capsule Active Take 1 Cap by mouth daily before breakfast. 90 Cap 2 ??? nitroglycerin (NITROSTAT) 0.4 MG tablet Active Dissolve 1 Tab under the tongue every 5 minutes as needed for Angina. 100 Tab 3 Procedures Procedures EKG Interpretation Lab Interpretation Oxygen Saturation Interpretation The oxygen saturation level is: 98%. The patient was on Room Air for the saturation measurement. Measurement frequency: Spot Check. Oxygen saturation interpretation is Normal. Intervention(s) used: None. Results for orders placed during the hospital encounter of 08/26/13 CBC W AUTO DIFFERENTIAL Component Value Range WBC 5.9 4.4-10.7 x10^9/L RBC 5.40 (*) 3.80-5.20 x10^12/L Hgb 15.8 (*) 12.0-15.6 gm/dL HCT 45.2 35.9-45.5 % MCV 83.7 80.7-98.3 fl MCH 29.3 26.7-34.0 pg MCHC 35.0 30.8-35.9 gm/dL Plt Ct 207 153-416 x10^9/L RDW-CV 14.4 12.1-14.9 % MPV 10.5 9.4-12.9 fl Neutro 59.2 44.0-73.0 % Lymph 28.2 20.0-43.0 % Wilbarger 9.1 5.0-13.0 % Eos 2.4 0.0-6.0 % Baso 0.9 0.0-2.0 % Immature Grans 0.2 0-1 % Neutro Abs 3.47 2.01-7.14 x10^9/L Lymph Abs 1.65 1.07-3.94 x10^9/L Wilbarger Abs 0.53 0.26-1.07 x10^9/L Eosin Abs 0.14 0-0.47 x10^9/L Baso Abs 0.05 0-0.08 x10^9/L Immature Grans Abs 0.01 0.00-0.06 x10^9/L COMPREHENSIVE METABOLIC PANEL Component Value Range Glucose 94 74-106 mg/dL Sodium 140 136-145 mmol/L Potassium 3.3 (*) 3.5-5.1 mmol/L Chloride 108 (*) 98-107 mmol/L CO2 26 22-31 mmol/L Calcium 8.8 8.5-10.1 mg/dL Anion Gap 6 5-15 mmol/L BUN 14 7-21 mg/dL Creatinine 0.48 (*) 0.50-1.30 mg/dL eGFR by MDRD >60 >60 mL/min/1.73m2 eGFR by MDRD AFR AMER >60 >60 mL/min/1.73m2 Alk Phos 81 38-126 U/L ALT/SGPT 39 12-78 U/L AST/SGOT 23 5-40 U/L Protein Total 7.5 6.4-8.2 gm/dL Albumin 3.6 3.4-5.0 gm/dL Bili Total 0.6 0.2-1.0 mg/dL LIPASE BLOOD Component Value Range Lipase 166 73-393 U/L TROPONIN I Component Value Range Troponin I <0.015 0.000-0.049 ng/mL CT ABDOMEN AND PELVIS WITH IV CONTRAST Final Result: Gallbladder is surgically absent. No intra-abdominal fluid collection. Postsurgical changes of gastric band. Low-attenuation enlargement of the right adrenal gland is stable. CT ABDOMEN WWO PELVIS W CONT (Results Pending) Progress Notes Initial Impression: 47 y.o. female c/o upper abdominal pain since cholecystectomy 16 days ago. Initial plan is to check routine labs, lipase, troponin, CT Abd/pelvis; administer Morphine 4mg, Reglan 10mg IV; NS IVF; reassess. 1338: Recheck -- pt still awaiting CT abd/pelvis. Nurse has informed CT dept. Abd pain improved with Morphine. 1534: RN update -- pt c/o headache rated 8/10. Otherwise abdominal pain is better after Morphine. No acute pathology on CT abd/pelvis. Verbal orders communicated to RN for Morphine 2mg IV. Paging Dr. Alvares. 1550: All pertinent aspects of case discussed with Dr. Noah Alvares (general surgery). Agrees withplan for PPI and outpatient follow up. 1612: Pt rechecked and updated with ED findings and discharge plan. Pt still abdominal pain free; requests work excuse note. Agreeable with plan. Will PO challenge prior to d/c. Otherwise, pt is medically stable for d/c home at this time. 1701: Pt tolerating PO, ready to go home. Pt is medically stable for d/c home at this time. I have given the patient instructions regarding her diagnosis, expectations, follow up, and return precautions. I explained to the patient that emergent conditions may arise and to return to the ER for new, worsening, or any persistent conditions. I've explained the importance of following up with her doctor--Sveta Terry--(or the referral physician) as instructed. The patient verbalized understanding of the discharge instructions. ED Course Medical Decision Making I have reviewed the: Previous Chart, Nursing Notes and Vitals. I have interpreted the following results: Labs, CT Scans and Oxygen Saturation. I have discussed the case with Surgery and Family/Caregiver. Orders Placed This Encounter ??? CT ABDOMEN AND PELVIS WITH IV CONTRAST ??? CBC W AUTO DIFFERENTIAL ??? COMPREHENSIVE METABOLIC PANEL ??? LIPASE BLOOD ??? TROPONIN I ??? iohexol (OMNIPAQUE 350) contrast ??? morphine injection 4 mg ??? metoclopramide (REGLAN) injection 10 mg ??? 0.9% NaCl infusion ??? morphine 4 mg/ml injection ADS Med ??? ondansetron (ZOFRAN) injection ADS Med ??? morphine 2 mg/ml injection ADS Med ??? morphine injection 2 mg ??? ondansetron (ZOFRAN) injection 4 mg ??? pantoprazole (PROTONIX) injection 40 mg ??? metoclopramide (REGLAN) 10 MG tablet ??? hydrocodone-acetaminophen (NORCO) 5-325 MG tablet ??? lansoprazole (PREVACID) 30 MG capsule Diagnosis: Encounter Diagnosis Name Primary? Abdominal pain, acute Yes New Medications: New Prescriptions HYDROCODONE-ACETAMINOPHEN (NORCO) 5-325 MG TABLET Take 1 Tab by mouth every 6 hours as needed for Pain. LANSOPRAZOLE (PREVACID) 30 MG CAPSULE Take 1 Cap by mouth daily before breakfast. METOCLOPRAMIDE (REGLAN) 10 MG TABLET Take 1 Tab by mouth 3 times daily as needed for Nausea/Vomiting. I have advised the patient to follow-up with: [place] [address] [facility] [address] [place] [id number] Call in 3 [place] [address] [facility] [address] [place] [phone] Call in 3 days Disposition: Discharged I have reviewed the information recorded by the scribe and agree with its accuracy and contents--Dr. Luciano Nguyễn 08/26/2013 5:04 PM Transcribed by Stevenson Goldstein--acting scribe on behalf of Dr. Nguyễn 08/26/2013 3:54 PM CTOR NICU documented in this encounter Miscellaneous Notes * Miscellaneous Scans - Document, Scanned - 08/28/2013 10:31 AM CST CTOR NICU documented in this encounter Plan of Treatment Upcoming Encounters Date Type Department Care Team (Late st Contact Info) Description 09/27/2024 2:20 PM DIRECTOR NICU Office Visit [facility] [address] [facility] [address] [place] [phone] [place] [address] [phone] 09/28/2024 1:00 PM DIRECTOR NICU Office Visit [facility] [place] [address] [place] , [address] [phone] [place] [address] [address] [phone] documented as of this encounter Procedures Procedure Name Priority Date/Time Associated Diagnosis Comments CT ABDOMEN PELVIS W CONTRAST STAT 08/26/2013 2:12 PM DIRECTOR NICU Abdominal pain, acute TROPONIN I Timed 08/26/2013 12:14 PM DIRECTOR NICU COMPREHENSIVE METABOLIC PANEL STAT 08/26/2013 12:14 PM DIRECTOR NICU LIPASE BLOOD STAT 08/26/2013 12:14 PM DIRECTOR NICU CBC W AUTO DIFFERENTIAL STAT 08/26/2013 11:00 AM DIRECTOR NICU documented in this encounter Results * CT ABDOMEN AND PELVIS WITH IV CONTRAST (08/26/2013 2:12 PM DIRECTOR NICU) Anatomical Region Laterality Modality Abdomen, Pelvis Computed Tomogra phy 08/26/2013 2:13 PM DIRECTOR NICU Impressions 08/26/2013 2:15 PM DIRECTOR NICU Gallbladder is surgically absent. No intra-abdominal fluid collection. Postsurgical changes of gastric band. Low-attenuation enlargement of the right adrenal gland is stable. Narrative 08/26/2013 2:[address] abdomen pelvis with IV contrast Indication: Abdominal pain, status post cholecystectomy Technique: Helical CT images of the abdomen and pelvis are obtained following 100 mL Omnipaque 350. Findings: CT abdomen: Scans of the lung bases are unremarkable. The liver, spleen and pancreas are unremarkable. Gallbladder is absent. No fluid is identified in the gallbladder fossa. Surgical clips are not seen. Postsurgical changes of laparoscopic band procedure are noted. The right adrenal gland is enlarged and low attenuation measuring 8 Hounsfield units, 3.4 X2.6 cm. The left adrenal gland is unremarkable. The kidneys are otherwise unremarkable. There is no hydronephrosis. No calculi are evident. Loops of bowel are of normal caliber. No intra-abdominal abscess is noted. CT pelvis: The appendix is well-seen and appears unremarkable. The uterus and adnexa are unremarkable. Ladder distends normally. Procedure Note Dana Patton MD - 08/26/2013 CT abdomen pelvis with IV contrast Indication: Abdominal pain, status post cholecystectomy Technique: Helical CT images of the abdomen and pelvis are obtained following 100 mL Omnipaque 350. Findings: CT abdomen: Scans of the lung bases are unremarkable. The liver, spleen and pancreas are unremarkable. Gallbladder is absent. No fluid is identified in the gallbladder fossa. Surgical clips are not seen. Postsurgical changes of laparoscopic band procedure are noted. The right adrenal gland is enlarged and low attenuation measuring 8 Hounsfield units, 3.4 X2.6 cm. The left adrenal gland is unremarkable. The kidneys are otherwise unremarkable. There is no hydronephrosis. No calculi are evident. Loops of bowel are of normal caliber. No intra-abdominal abscess is noted. CT pelvis: The appendix is well-seen and appears unremarkable. The uterus and adnexa are unremarkable. Ladder distends normally. IMPRESSION Gallbladder is surgically absent. No intra-abdominal fluid collection. Postsurgical changes of gastric band. Low-attenuation enlargement of the right adrenal gland is stable. Luciano Nguyễn DO CT ORDERABLES * TROPONIN I (08/26/2013 12:14 PM DIRECTOR NICU) [facility] Troponin I <0.015 0.000 - 0.049 ng/mL 08/26/2013 12:53 PM DIRECTOR NICU [facility] Blood BLOOD SPECIMEN / Unknown 08/26/2013 12:14 PM DIRECTOR NICU 08/26/2013 12:25 PM DIRECTOR NICU Narrative [facility] - 08/26/2013 12:53 PM DIRECTOR NICU Note: Diagnosis of myocardial infarction requires symptoms [...] as pulmonary embolism, renal failure and sepsis. Luciano Nguyễn DO LAB - CHEMISTRY ORDE [employer] Performing Organization Address [facility] Co de Phone Number [facility] [address] [place] [address] * LIPASE BLOOD (08/26/2013 12:14 PM DIRECTOR NICU) [facility] Lipase 166 73 - 393 U/L 08/26/2013 12:[address] [facility] Blood BLOOD SPECIMEN / Unknown 08/26/2013 12:14 PM DIRECTOR NICU 08/26/2013 12:25 PM DIRECTOR NICU Luciano Nguyễn LAB - CHEMISTRY ORDE [employer] Performing Organization Address [facility] de Phone Number [facility] [address] [place] [address] * (ABNORMAL) COMPREHENSIVE METABOLIC PANEL (08/26/2013 12:14 PM DIRECTOR NICU) [facility] Glucose 94 74 - 106 mg/dL 08/26/2013 12:[address] [facility] Sodium 140 136 - 145 mmol/L 08/26/2013 12:[address] [facility] Potassium 3.3(L) 3.5 - 5.1 mmol/L 08/26/2013 12:[address] [facility] Chloride 108(H) 98 - 107 mmol/L 08/26/2013 12:[address] [facility] CO2 26 22 - 31 mmol/L 08/26/2013 12:[address] [facility] Calcium 8.8 8.5 - 10.1 mg/dL 08/26/2013 12:[address] [facility] Anion Gap 6 5 - 15 mmol/L 08/26/2013 12:[address] [facility] BUN 14 7 - 21 mg/dL 08/26/2013 12:[address] [facility] Creatinine 0.48(L) 0.50 - 1.30 mg/dL 08/26/2013 12:[address] [facility] eGFR by MDRD >60 >60 mL/min/1.7 3m2 08/26/2013 12:[address] [facility] eGFR by MDRD >60 >60 mL/min/1.7 3m2 08/26/2013 12:[address] [facility] Alkaline Phosphatase 81 38 - 126 U/L 08/26/2013 12:[address] [facility] ALT 39 12 - 78 U/L 08/26/2013 12:[address] [facility] AST 23 5 - 40 U/L 08/26/2013 12:[address] [facility] Protein Total 7.5 6.4 - 8.2 gm/dL 08/26/2013 12:[address] [facility] Albumin 3.6 3.4 - 5.0 gm/dL 08/26/2013 12:[address] [facility] Bilirubin Total 0.6 0.2 - 1.0 mg/dL 08/26/2013 12:[address] [facility] Blood BLOOD SPECIMEN / Unknown 08/26/2013 12:14 PM DIRECTOR NICU 08/26/2013 12:25 PM [facility] Luciano Nguyễn DO LAB - CHEMISTRY FRANKE IVAN [facility] [address] [place] [address] * (ABNORMAL) CBC W AUTO DIFFERENTIAL (08/26/2013 11:00 AM DIRECTOR NICU) WBC 5.9 4.4 - 10.7 x10^9/L 08/26/2013 11:[address] [facility] RBC 5.40(H) 3.80 - 5.20 x10^12/L 08/26/2013 11:[address] [facility] Hemoglobin 15.8(H) 12.0 - 15.6 gm/dL 08/26/2013 11:[address] [facility] Hematocrit 45.2 35.9 - 45.5 % 08/26/2013 11:[address] [facility] MCV 83.7 80.7 - 98.3 fl 08/26/2013 11:[address] [facility] MCH 29.3 26.7 - 34.0 pg 08/26/2013 11:[address] [facility] MCHC 35.0 30.8 - 35.9 gm/dL 08/26/2013 11:[address] [facility] Platelet Count 207 153 - 416 x10^9/L 08/26/2013 11:[address] [facility] RDW-CV 14.4 12.1 - 14.9 % 08/26/2013 11:[address] [facility] MPV 10.5 9.4 - 12.9 fl 08/26/2013 11:[address] [facility] Neutrophils % 59.2 44.0 - 73.0 % 08/26/2013 11:[address] [facility] Lymphocytes % 28.2 20.0 - 43.0 % 08/26/2013 11:[address] [facility] Monocytes % 9.1 5.0 - 13.0 % 08/26/2013 11:[address] [facility] Eosinophils % 2.4 0.0 - 6.0 % 08/26/2013 11:[address] [facility] Basophils % 0.9 0.0 - 2.0 % 08/26/2013 11:[address] [facility] Immature Granulocytes 0.2 0 - 1 % 08/26/2013 11:[address] [facility] Neutrophil Absolute 3.47 2.01 - 7.14 x10^9/L 08/26/2013 11:[address] [facility] Lymphocytes Absolute 1.65 1.07 - 3.94 x10^9/L 08/26/2013 11:[address] [facility] Monocytes Absolute 0.53 0.26 - 1.07 x10^9/L 08/26/2013 11:20 AM DIRECTOR NICU [facility] Eosinophils Absolute 0.14 0 - 0.47 x10^9/L 08/26/2013 11:20 AM DIRECTOR NICU [facility] Basophils Absolute 0.05 0 - 0.08 x10^9/L 08/26/2013 11:20 AM DIRECTOR NICU [facility] Immature Granulocytes Absolute 0.01 0.00 - 0.06 x10^9/L 08/26/2013 11:20 AM DIRECTOR NICU [facility] Blood BLOOD SPECIMEN / Unknown 08/26/2013 11:00 AM DIRECTOR NICU 08/26/2013 11:15 AM DIRECTOR NICU Luciano Nguyễn DO LAB - HEMATOLOGY ORD ERABLES [facility] [address] [place] [address] documented in this encounter Visit Diagnoses Diagnosis Abdominal pain, acute- Primary Abdominal pain, unspecified site documented in this encounter Administered Medications Inactive Administered Medications - up to 3 most recent administrations Medication Order MAR Action Action Date Dose Rate Site 0.9% NaCl infusion at 125 mL/hr, Intravenous, CONTINUOUS, Starting on Thu08/26/13 at 1130, Until Thu08/26/13 at 1841 $ New Bag/Syringe 08/26/2013 11:30 AM DIRECTOR NICU 125 mL/hr 125 mL/hr iohexol (OMNIPAQUE 350) contrast Intravenous, CONTRAST ONCE, Starting on Thu08/26/13 at 1049, Until Thu08/26/13 at 1841 $ Given 08/26/2013 2:00 PM DIRECTOR NICU 100 mL Right Arm metoclopramide (REGLAN) injection 10 mg 10 mg, Intravenous, ONCE, 1 dose, On Thu08/26/13 at 1115 $ Given 08/26/2013 11:02 AM DIRECTOR NICU 10 mg morphine 2 mg/ml injection ADS Med 1 dose, Starting on Thu08/26/13 at 1538, Until Thu08/26/13 at 1540, MONIQUE FATIMA N: emerson override morphine injection 2 mg 2 mg, Intravenous, ONCE, 1 dose, On Thu08/26/13 at 1600 $ Given 08/26/2013 3:40 PM DIRECTOR NICU 2 mg morphine injection 4 mg 4 mg, Intravenous, ONCE, 1 dose, On Thu08/26/13 at 1115 $ Given 08/26/2013 11:02 AM DIRECTOR NICU 4 mg ondansetron (ZOFRAN) injection 4 mg 4 mg, Intravenous, ONCE, 1 dose, On Thu08/26/13 at 1600 $ Given 08/26/2013 3:39 PM DIRECTOR NICU 4 mg ondansetron (ZOFRAN) injection ADS Med 1 dose, Starting on Thu08/26/13 at 1537, Until Thu08/26/13 at 1539, MONIQUE FATIMA: emerson fishman pantoprazole (PROTONIX) injection 40 mg 40 mg, Intravenous, ONCE, 1 dose, On Thu08/26/13 at 1615, Dilute with 10 ml of NS and give over 2 minutes. (Conc = 4 mg/ml) $ Given 08/26/2013 4:23 PM DIRECTOR NICU 40 mg documented in this encounter Active and Recently Administered Medications Times are shown in DIRECTOR NICU. Scheduled Medication Order 08/24/2013 08/25/2013 08/26/2013 iohexol (OMNIPAQUE 350) contrast (CANCELED) Intravenous, CONTRAST ONCE, Starting on Thu08/26/13 at 1049, Until Thu08/26/13 at 1841 1400 ($ Given - Prov ider: Diana Marc, RT) metoclopramide (REGLAN) injection 10 mg (COMPLETED) 10 mg, Intravenous, ONCE, 1 dose, On Thu08/26/13 at 1115 1102 ($ Given - Prov ider: Chitra Ram, CHARIS) morphine injection 2 mg (COMPLETED) 2 mg, Intravenous, ONCE, 1 dose, On Thu08/26/13 at 1600 1540 ($ Given - Prov ider: Monique Fatima, CHARIS) morphine injection 4 mg (COMPLETED) 4 mg, Intravenous, ONCE, 1 dose, On Thu08/26/13 at 1115 1102 ($ Given - Prov ider: Chitra Ram, CHARIS) ondansetron (ZOFRAN) injection 4 mg (COMPLETED) 4 mg, Intravenous, ONCE, 1 dose, On Thu08/26/13 at 1600 1539 ($ Given - Prov ider: Monique Fatima, CHARIS) pantoprazole (PROTONIX) injection 40 mg (COMPLETED) 40 mg, Intravenous, ONCE, 1 dose, On Thu08/26/13 at 1615, Dilute with 10 ml of NS and give over 2 minutes. (Conc = 4 mg/ml) 1623 ($ Given - Prov ider: Darrell Espinoza, EMT-P) Continuous Medication Order 08/24/2013 08/25/2013 08/26/2013 0.9% NaCl infusion (CANCELED) at 125 mL/hr, Intravenous, CONTINUOUS, Starting on Thu08/26/13 at 1130, Until Thu08/26/13 at 1841 1130 ($ New Bag/Syri nge - Provider: Chitra Ram RN) documented in this encounter Care Teams Direct Care Provider Relationship Specialty Start Date End Date Sveta Rai MD PCP - General Internal Medicine 02/22/13 12/07/16 documented as of this encounter
--- OUTSIDE RECORDS SUMMARY | 2024-09-18 09:36 | XMS_ITS | Encounter Summary ---
Author Organization [facility] Health Address [address] [facility] [place] [address] Care Team Providers Care Dental Hygienist Mobile Coordinator Name Role Phone Sveta Rai MD Primary Care Provider Reason for Visit * Reason Comments Post-Op Encounter Details Date Type Department Care Team (Late st Contact Info) Description 08/29/2013 2:45 PM CORPORATE CONCIERGE Office Visit [facility] Weight Management Services [address] [facility], [address] [place] [address] [place] [address] [facility] [address] [place] [address] Abdominal pain, acute, right upper quadrant (Primary Dx) Social History Tobacco Use Types Packs/Day Years Used Date Smoking Tobacco: Every Day Cigarettes 0.5 30 Started: 08/18/2013 Smokeless Tobacco: Never Tobacco Cessation:Counseling Given: Yes Alcohol Use Standard Drinks/Week Comments No 0 (1 standard drink = 0.6 oz pur e alcohol) Sex and Gender Information Value Date Recorded Sex Assigned at Female 12/01/2020 7:48 AM CDT Gender Identity Female 12/01/2020 7:48 AM CDT Sexual Orientation Straight 12/01/2020 7: 48 AM CDT documented as of this encounter Last Filed Vital Signs Vital Sign Reading Time Taken Comments Blood Pressure 148/92 08/29/2013 2:48 PM CORPORATE CONCIERGE Pulse 68 08/29/2013 2:48 PM CORPORATE CONCIERGE Temperature 36.8 ??C (98.2 ??F) 08/29/2013 2:48 PM CS T Respiratory Rate 20 08/29/2013 2:48 PM CORPORATE CONCIERGE Oxygen Saturation - - Inhaled Oxygen Concentration - - Weight 96.6 kg (213 lb) 08/29/2013 2:48 PM CORPORATE CONCIERGE Height 162.6 cm (5' 4 ) 08/29/2013 2:48 PM CORPORATE CONCIERGE Body Mass Index 36.56 08/29/2013 2:48 PM CORPORATE CONCIERGE documented in this encounter Patient Instructions * Patient Instructions* Noah Alvares MD - 2013 5:26 PM CORPORATE CONCIERGE rtc prn ORATE CONCIERGE documented in this encounter Progress Notes * Noah Alvares MD - 08/29/2013 2:59 PM CST Bariatric Surgery Clinic Note Lucretia Rodriguez Previous Procedure: 1. Laparoscopic Cholecystectomy 2. Intraoperative cholangiogram Date of Procedure: 08/10/2013 Chief Complaint: RUQ and flank pain Subjective: Here for ED eval for right upper quadrant pain. It has improved since being discharged from the ER Tolerating diet and having bowel funciton Denies nausea or emesis Data Vitals: 08/29/13 1448 BP: 148/92 Pulse: 68 Temp: 98.2 ??F Resp: 20 Weight: 213 lb (96.616 kg) Review of Systems: HEENT: Denies headaches, vision or auditory changes Cardiovascular: Denies chest pain, orthopnea or palpitations Respiratory: Denies cough, hemoptysis Gastrointestinal: Denies abdominal pain, no melena or hematemesis Genitourinary: denies hematuria, dysuria Musculoskeletal: denies muscle weakness Endocrine: Denies diabetes mellitus or thyroid issues Allergic / Immuno: Normal Neuro / Psych: denies depression, SI/SA Physical Examination: HEENT: Normocephalic, atraumatic, no evidence of abnormalities. PEERL, EOM- intact, sclera clear Lungs: Clear to ascultation Heart: Regular rate and rythm. Abdomen: soft, non distended, non tender, incisions clean, dry and intact, no e/o hernias, no erythema or drainage Extremities: Symmetrical, equal, no signs of deformities. Peripheral pusles intact. No edema. Neurologic: Alert, oriented, cranial nerves 2-12 intact. Station, gait, coordination intact. Skin: No rashes. No skin lesions. Assessment/Plan: Abdominal pain s/p lap cholecystectomy 1. Abdominal pain: continues to improve, no fevers and labs ok. If cont's, may need EGD to assess adjustable gastric band for erosion 2. cont prn pain meds 3. RTC prn Noah Alvares MD ORATE CONCIERGE documented in this encounter Plan of Treatment Upcoming Encounters Date Type Department Care Team (Late st Contact Info) Description 09/27/2024 2:20 PM CORPORATE CONCIERGE Office Visit [facility] Neurosciences [address] [facility] [address] [place] [address] [place] [address] [phone] 09/28/2024 1:00 PM CORPORATE CONCIERGE Office Visit [facility] [place] [address] DePmoris Barrett, [address] [address] [place] [address] [address] [address] documented as of this encounter Visit Diagnoses Diagnosis Abdominal pain, acute, right upper quadrant- Primary Abdominal pain, right upper quadrant documented in this encounter Care Teams Dental Hygienist Mobile Coordinator Relationship Specialty Start Date End Date Sveta Rai MD PCP - General Internal Medicine 02/22/13 12/07/16 documented as of this encounter
--- OUTSIDE RECORDS SUMMARY | 2024-09-18 09:36 | XMS_ITS | Encounter Summary ---
Author Organization [facility] Health Address [address] [place] [address] Care Team Providers Care Boom Boss Name Role Phone Sveta Rai MD Primary Care Provider Encounter Details Date Type Department Care Team (Latest Contact Info) Description 09/28/2013 3:46 PM CERTIFICATION ENGINEER - 09/28/2013 11:59 PM [facility] Hospital Encounter [facility] Imaging Services - Radiology [address] [place], [place] [id number] Sveta Rai MD [address] [place] [address] DR NOON[address] [place] [address] Discharge Disposition: Home or Self Care Social [...] AM CDT documented as of this encounter Medications at Time of Discharge Medication Sig Dispensed Refills Start Date End Date Cholecalciferol (VITAMIN D) 1000 UNIT capsule Take 5 (five) capsules by mouth once daily aspirin 325 MG tablet Take 81 mg by mouth once daily 04/17/2020 atorvastatin (LIPITOR) 10 MG tablet Take 1 Tab by mouth at bedtime. 30 Tab 5 09/29/2013 12/26/2013 azithromycin (ZITHROMAX) 250 MG tabletIndications:Otitis media As directed 6 Tab 0 09/28/2013 12/21/2013 B Complex Vitamins (B-COMPLEX/B-12 PO) Take 1,000 mcg by mouth. 12/08/2016 citalopram (CELEXA) 20 MG tablet Take 20 mg by mouth once daily. 05/12/2014 levothyroxine (TIROSINT) 88 MCG capsuleIndications:Hypot hyroidism Take 1 Cap by mouth daily before breakfast. 90 Cap 2 02/22/2013 12/29/2013 lisinopril (PRINIVIL; ZESTRIL) 40 MG tablet Take 40 mg by mouth once daily. 05/12/2014 metoprolol tartrate IR (LOPRESSOR) 50 MG tablet Take 0.5 Tabs by mouth 2 times daily. 60 Tab 5 09/21/2013 04/21/2014 nitroglycerin (NITROSTAT) 0.4 MG tablet Dissolve 1 Tab under the tongue every 5 minutes as needed for Angina. 100 Tab 3 02/22/2013 05/11/2014 ondansetron (ZOFRAN) 4 MG tabletIndications:Nausea alone Take 1 Tab by mouth every 8 hours as needed for Nausea/Vomiting. 30 Tab 0 08/23/2013 12/21/2013 documented as of this encounter Miscellaneous Notes * Miscellaneous Scans - Document, Scanned - 09/29/2013 9:08 PM CST IFICATION ENGINEER documented in this encounter Plan of Treatment Upcoming Encounters Date Type Department Care Team (Late st Contact Info) Description 09/27/2024 2:20 PM CERTIFICATION ENGINEER Office Visit [facility] Neurosciences [address] [facility] [address] [place] [address] [place] [address] [facility] [address] [place] [address] 09/28/2024 1:00 PM CERTIFICATION ENGINEER Office Visit [facility] [place] [address] [facility], [address] [place] [phone] [place] [address] [place] [address] documented as of this encounter Procedures Procedure Name Priority Date/Time Associated Diagnosis Comments XR ANKLE RIGHT 3VW OR MORE Routine 09/28/2013 3:55 PM CERTIFICATION ENGINEER Pain in ankle joint documented in this encounter Results * XR ANKLE 3+ VW RIGHT (09/28/2013 3:55 PM CERTIFICATION ENGINEER) Anatomical Region Laterality Modality Lower Extremity Radiographic Louann ging 09/28/2013 4:11 PM CERTIFICATION ENGINEER Impressions 09/28/2013 6:52 PM CERTIFICATION ENGINEER Negative for fracture at this time. ??Please see above. Edited by Yvrose Huerta on 09/28/2013 4:27 PM Narrative 09/28/2013 6:52 PM CERTIFICATION ENGINEER Examination: Right ankle 3 views Indication: ??Right [...] PM Sveta Gross MD DIAGNOSTIC IMAGING ORDERABLES documented in this encounter Visit Diagnoses Not on filedocumented in this encounter Care Teams Boom Boss Relationship Specialty Start Date End Date Sveta Rai MD PCP - General Internal Medicine 02/22/13 12/07/16 documented as of this encounter
--- OUTSIDE RECORDS SUMMARY | 2024-09-18 09:36 | XMS_ITS | Encounter Summary ---
Author Organization [facility] Address [address] [facility] [place] [address] Care Team Providers Care Manager Group Home Name Role Phone Sveta Rai MD Primary Care Provider [phone] Reason for Visit * Reason Onset Date Comments MEDICATION REFILL 05/10/2014 Encounter Details Date Type Department Care Team (Late Contact Info) Description 05/10/2014 Refill [facility] Medical [facility] - Family Medicine [address] [facility] [address] [place] [address] Sveta Rai MD [address] [place] [address] DR [address]ON[address] [place] [address] MEDICATION REFILL Social History Tobacco Use Types [...] AM CDT documented as of this encounter Plan of Treatment Upcoming Encounters Date Type Department Care Team (Late Contact Info) Description 09/27/2024 2:20 PM TRAIN OPERATOR Office Visit [facility] Neurosciences [address] [facility] [address] [place] [address] [place] [address] [facility] [address] [place] [address] 09/28/2024 1:00 PM TRAIN OPERATOR Office Visit [facility] - [address] [address] [facility] [address] [place] [address] [place] [address] [address] [facility] [address] [place] [address] documented as of this encounter Goals Goal Patient Goal Type Associated Problems Recent Progress Patient-Stated? Author Blood Pressure < 140/90 Blood Pressure 102/69(2022 11:30 AM TRAIN OPERATOR) Melinda Barclay Quit smoking / using tobacco Lifestyle No Melinda Newsome documented as of this encounter Visit Diagnoses Not on filedocumented in this encounter Care Teams Manager Group Home Relationship Specialty Start Date End Date Sveta Rai MD PCP - General Internal Medicine 02/22/13 12/07/16 documented as of this encounter
--- OUTSIDE RECORDS SUMMARY | 2024-09-18 09:36 | XMS_ITS | Encounter Summary ---
Author Organization [facility] [employer] Address [address] [facility] [place] [address] Care Team Providers Care Career Development Facilitator Name Role Phone Sveta Rai MD Primary Care Provider [phone] Reason for Referral * Evaluate & Treat - Closed Specialty Diagnoses / Procedures Referred By Ernesto barrios Referred To Contact Diagnoses Abdominal pain Nausea Sveta Rai MD [address] [place] [address] [address] [place] [address] [place] [address] [facility] [address] [place] [address] Referral ID Status Reason Start Date Expiration Date V isits Requested Visits Authorized [id number] Closed Specialty Services Required 09/02/2013 03/01/2014 3 3 Scheduling Instructions S/p cholecystectomy 08/10. Still c/o nausea and upper abd pain the requires narcotics. CT scan her abdomen and pelvis with IV contrast was done Did not show any fluid collection. She had 2 ER visits due to the pain after her discharge. ER OPERATOR Encounter Details Date Type Department Care Team (Late st Contact Info) Description 09/02/2013 Orders Only [facility] - Family Medicine [id number] [place] [address] [address] [place] [address] Sveta Rai MD [address] [place] [address] [address] [place] [address] UTI (urinary tract infection) ; Abdominal pain; Nausea Social History Tobacco Use Types Packs/Day [...] st Contact Info) Description 09/27/2024 2:20 PM HOPPER OPERATOR Office Visit [facility] Neurosciences [address] [address] [place] [address] [facility] [address] [place] [phone] 09/28/2024 1:00 PM HOPPER OPERATOR Office Visit [facility] [place] [address] [address] Barrett [facility] [address] [place] [address] [place] [address] [address] [facility] [address] [place] [address] Scheduled Referrals Name Type Priority Associated Diagnoses Order Schedule AMB REFERRAL TO GASTROENTEROLOGY Outpatient Referral Routine Abdominal pain Nausea Ordered: 09/02/2013 documented as of this encounter Visit Diagnoses Diagnosis UTI (urinary tract infection)- Primary Urinary tract infection, site not specified Abdominal pain Nausea Nausea alone documented in this encounter Care Teams Career Development Facilitator Relationship Specialty Start Date End Date Sveta Rai MD PCP - General Internal Medicine 02/22/13 12/07/16 documented as of this encounter
--- OUTSIDE RECORDS SUMMARY | 2024-09-18 09:36 | XMS_ITS | Encounter Summary ---
Author Organization [facility] Address [address] [facility] [place] [address] Care Team Providers Care Faucet Polisher Name Role Phone Sveta Rai MD Primary Care Provider [phone] Reason for Visit * Reason Onset Date Comments MEDICATION REFILL 01/13/2014 Encounter Details Date Type Department Care Team (Late st Contact Info) Description 01/13/2014 Refill [facility] Medical [facility] - Family Medicine [address] [place] [phone] Sveta Rai MD [address] [place] [address] DR [address] [place] [id number] MEDICATION REFILL Social History Tobacco Use Types [...] * Telephone Encounter - Melinda Newsome - 01/13/2014 11:48 AM CDT Pt is aware * Telephone Encounter - Melinda Newsome - 01/13/2014 11:44 AM CDT Rx approved, please advise * Telephone Encounter - Anny Lopez MA - 01/13/2014 11:40 AM CDT Lucretia Rodriguez Requested Prescriptions Pending Prescriptions Disp Refills ??? atorvastatin (LIPITOR) 20 MG tablet Sig: Take 1 Tab by mouth at bedtime. Allergies Allergen Reactions ??? Sulfa Drugs ??? Latex Last refill- Last OV-09/28/13 documented in this encounter Plan of Treatment Upcoming Encounters Date Type Department Care Team (Late st Contact Info) Description 09/27/2024 2:20 PM BAR PILOT Office Visit [facility] Neurosciences [address] [phone] [place] [address] [facility] [address] [place] [phone] 09/28/2024 1:00 PM BAR PILOT Office Visit [facility] [place] [address] [address] [address] [place] [address] [address] [facility] [address] [place] [phone] documented as of this encounter Visit Diagnoses Not on filedocumented in this encounter Care Teams Faucet Polisher Relationship Specialty Start Date End Date Sveta Rai MD PCP - General Internal Medicine 02/22/13 12/07/16 documented as of this encounter
--- OUTSIDE RECORDS SUMMARY | 2024-09-18 09:36 | XMS_ITS | Encounter Summary ---
Author Organization [facility] Address [address] [facility] [place] [address] Care Team Providers Care Lead Engineer Name Role Phone Sveta Rai MD Primary Care Provider [phone] Reason for Visit * Reason Comments Nausea started last night Vomiting Diarrhea Encounter Details Date Type Department Care Team (Late st Contact Info) Description 08/23/2013 1:00 PM FORMULA BOTTLER Office Visit [facility] - Family Medicine [id number] [place] [address] [phone] Sveta Rai MD [address] [place] [address] DR NOONAN [address] [place] [phone] Nausea alone (Primary Dx); Diarrhea Social History Tobacco Use Types Packs/Day Years [...] Sign Reading Time Taken Comments Blood Pressure 114/78 08/23/2013 12:58 PM FORMULA BOTTLER Pulse 78 08/23/2013 12:58 PM FORMULA BOTTLER Temperature 36.7 ??C (98.1 ??F) 08/23/2013 12:[address] Respiratory Rate 18 08/23/2013 12:58 PM FORMULA BOTTLER Oxygen Saturation - - Inhaled Oxygen Concentration - - Weight 101.6 kg (224 lb) 08/23/2013 12:58 PM FORMULA BOTTLER Height 162.6 cm (5' 4 ) 08/23/2013 12:58 PM FORMULA BOTTLER Body Mass Index 38.45 08/23/2013 12:58 PM FORMULA BOTTLER documented in this encounter Progress Notes * Melinda Newsome - 08/26/2013 8:46 AM CSTQuick Note: Letter was sent ULA BOTTLER * Sveta Terry MD - 08/26/2013 8:37 AM CSTQuick Note: negative ULA BOTTLER * Sveta Terry MD - 08/23/2013 1:29 PM CST SUBJECTIVE: Lucretia Rodriguez is a 47 y.o. female with Chief Complaint Patient presents with ??? Nausea started last night ??? Vomiting ??? Diarrhea HPI: c/o nausea since yesterday, could not keep water down, also c/o diarrhea describes it as watery stool many times a day. C/o chills. Has been in the hospital recently for cholecystectomy. Past Medical History Diagnosis Date ??? Heart attack 2010 ??? HTN (hypertension) ??? Hyperlipemia ??? Multiple sclerosis 2006 ??? H/O heart artery stent [id number] LAD( ) caden ??? H/O laparoscopic adjustable gastric banding 2009 ??? S/P tonsillectomy ??? Migraine ??? Hypothyroid ??? Depressive disorder, not elsewhere classified ??? Generalized anxiety disorder History Social History ??? Marital Status: Spouse [...] History Narrative ??? No narrative on file Family History Problem Relation Age of Onset ??? Cancer Maternal Grandmother laranyx ??? Cancer Maternal Grandfather lung ??? Diabetes Sister ??? Heart Failure Father 48 heart attack ??? Heart Failure Mother 63 heart attack ??? Hypercholesterolemia Mother ??? Hypertension Sister Allergies Allergen Reactions ??? Sulfa Drugs ??? Latex Review of Systems: General ROS: positive for - chills negative for - fever Respiratory ROS: no cough, shortness of breath, or wheezing Cardiovascular ROS: no chest pain or dyspnea on exertion Gastrointestinal ROS: no abdominal pain, change in bowel habits, or black or bloody stools OBJECTIVE: BP 114/78 Pulse 78 Temp 98.1 ??F (Oral) Resp 18 Wt 101.606 kg (224 lb) BMI 38.45 kg/m2 General: alert, cooperative, no distress Eyes: PERRLA, EOMI, Sclera and conjunctiva clear Ears: bilateral TM's and external ear canals normal Neck: range of motion is intact, no masses, thyroid not enlarged, no adenopathy, supple Heart: normal rate, regular rhythm, normal S1, S2, no murmurs, rubs, clicks or gallops Lungs: clear to auscultation bilaterally Abdomen: soft, mild tenderness in epigastric area., non-distended, normal bowel sounds Extremities: no clubbing, cyanosis or edema Neuro: negative ASSESSMENT: 1. Nausea alone ondansetron (ZOFRAN) 4 MG tablet 2. Diarrhea CLOSTRIDIUM DIFFICILE BY PCR could be viral gastroenteritis especially that she mentioned her daughter had the same symptoms, wehave to R/O c diff since she was in the hospital recently. zofran for nausea. Call me in 3 days to let me know if she is better or not. Keep hydrated. PLAN: Orders Placed This Encounter ??? CLOSTRIDIUM DIFFICILE BY PCR ??? ondansetron (ZOFRAN) 4 MG tablet Sig: Take 1 Tab by mouth every 8 hours as needed for Nausea/Vomiting. Dispense: 30 Tab Refill: 0 ULA BOTTLER documented in this encounter Plan of Treatment Upcoming Encounters Date Type Department Care Team (Late st Contact Info) Description 09/27/2024 2:20 PM FORMULA BOTTLER Office Visit [facility] Neurosciences [address] [facility] [address] [place] [phone] [place] [address] [facility] [address] [place] [address] 09/28/2024 1:00 PM FORMULA BOTTLER Office Visit [facility] [place] [address] [address] [facility] [address] [place] [address] [place] [address] [address] [facility] [address] [place] [address] documented as of this encounter Procedures Procedure Name Priority Date/Time Associated Diagnosis Comments C DIFFICILE BY PCR Routine 08/24/2013 8: 08 AM FORMULA BOTTLER Diarrhea documented in this encounter Results * CLOSTRIDIUM DIFFICILE BY PCR (08/24/2013 8:08 AM FORMULA BOTTLER) C difficile Toxin Gene MATEO Negative Negative [facility] ACCOUNT BILL Stool specimen (specimen) STOOL SPECIMEN / Unknown 08/24/2013 8:08 AM FORMULA BOTTLER 08/24/2013 5:42 PM FORMULA BOTTLER Narrative Resulting Agency Comment [facility] [address] ??[facility] [phone] Sveta Gross MD LAB - MICROBIOLOGY ORDERABLES [facility] ACCOUNT BILL documented in this encounter Visit Diagnoses Diagnosis Nausea alone- Primary Diarrhea documented in this encounter Care Teams Lead Engineer Relationship Specialty Start Date End Date Sveta Rai MD PCP - General Internal Medicine 02/22/13 12/07/16 documented as of this encounter
--- OUTSIDE RECORDS SUMMARY | 2024-09-18 09:36 | XMS_ITS | Encounter Summary ---
Author Organization [facility] Address [address] [facility] [place] [address] Care Team Providers Care Application Support Developer Name Role Phone Sveta Rai MD Primary Care Provider [phone] Reason for Visit * Reason Comments Hyperlipidemia Hypertension Depression Swelling Ankle right side x2 weeks. pt states she has been limping Encounter Details Date Type Department Care Team (Late st Contact Info) Description 09/28/2013 1:45 PM PERSONAL BANKER Office Visit [facility] - Family Medicine [id number] [place] [id number] Sveta Rai MD [address] [place] [address] NOONAN [address] [place] [address] [id number] HTN (hypertension) (Primary Dx); Prediabetes; Depressive disorder, not elsewhere classified; Mixed hyperlipidemia; Hypothyroidism; Otitis media; Pain in ankle joint; Vitamin D deficiency Social History Tobacco Use Types Packs/Day Years [...] Sign Reading Time Taken Comments Blood Pressure 118/80 09/28/2013 1:54 PM PERSONAL BANKER Pulse 78 09/28/2013 1:54 PM PERSONAL BANKER Temperature - - Respiratory Rate 18 09/28/2013 1:54 PM PERSONAL BANKER Oxygen Saturation - - Inhaled Oxygen Concentration - - Weight 99.8 kg (220 lb) 09/28/2013 1:54 PM PERSONAL BANKER Height 161.3 cm (5' 3.5 ) 09/28/2013 1:54 PM PERSONAL BANKER Body Mass Index 38.36 09/28/2013 1:54 PM PERSONAL BANKER documented in this encounter Progress Notes * Melinda Harris - 09/29/2013 1:16 PM CST Detailed message left for pt per HIPAA. Rx sent to the pharmacy ONAL BANKER * Sveta Terry MD - 09/29/2013 10:51 AM CSTQuick Note: Very high LDL needs chol medicine please start lipitor 10 mg q hs, however TG is lower than previous. Thyroid function is good continue same dose. Vit d is good keep taking OTC vit D. Prediabetes, A1c is slightly lower, keep up the good work. ONAL BANKER * Melinda Harris - 09/29/2013 10:35 AM CSTQuick Note: Letter was sent ONAL BANKER * Melinda Harris - 09/29/2013 10:35 AM CSTQuick Note: Detailed message left per HIPAA. ONAL BANKER * Sveta Terry MD - 09/29/2013 10:26 AM CSTQuick Note: No fracture. ONAL BANKER * Sveta Terry MD - 09/28/2013 2:27 PM CST SUBJECTIVE: Lucretia Rodriguez is a 48 y.o. female with Chief Complaint Patient presents with ??? Hyperlipidemia ??? Hypertension ??? Depression ??? Swelling Ankle right side x2 weeks. pt states she has been limping Past Medical History Diagnosis Date ??? Heart attack 2010 ??? HTN (hypertension) ??? Hyperlipemia ??? Multiple sclerosis 2006 ??? H/O heart artery stent [id number] LAD( ) mercy ??? H/O laparoscopic adjustable gastric banding 2009 ??? S/P tonsillectomy ??? Migraine ??? Hypothyroid ??? Depressive disorder, not elsewhere classified ??? Generalized anxiety disorder History Social History ??? Marital Status: Spouse Name: N/A Number of Children: 2 ??? Years of Education: N/A Occupational History ??? [employer] Social History Main Topics ??? Smoking status: Current Every Day Smoker -- 0.5 packs/day for 30 years Types: Cigarettes Start [...] attack ??? Hypercholesterolemia Mother ??? Hypertension Sister HPI: she is here to follow up on hypertension, hyperlipidemia, and depression. She does not have any more abdominal pain, patient recently has visited Dr. Rose and decided that it is more like aMusculoskeletal pain, was given Flexeril which she did not even need that. She is back to her normal baseline, good appetite, tolerating food well. She takes Celexa for her depression. Blood pressurestable on metoprolol 25 mg and lisinopril 40 mg. She is due for labs to check a cholesterol. She jessica [id number] vitamin-D. she complains about left earache, and right ankle swelling for the last 3 weeks getting better, no recent injury. Review of Systems: Per HPI General ROS: negative for - chills or fever ENT ROS: positive for - Left ear ache. No other symptoms of upper respiratory infection. Respiratory ROS: no cough, shortness of breath, or wheezing Cardiovascular ROS: no chest pain or dyspnea on exertion Gastrointestinal ROS: no abdominal pain, change in bowel habits, or black or bloody stools Genito-Urinary ROS: no dysuria, trouble voiding, or hematuria Musculoskeletal ROS: R ankle swelling. OBJECTIVE: Wt Readings from Last 3 Encounters: 09/28/13 99.791 kg (220 lb) 09/02/13 98.884 kg (218 lb) 09/01/13 98.884 kg (218 lb) Temp Readings from Last 3 Encounters: 09/02/13 98.8 ??F 08/29/13 98.2 ??F Oral 08/26/13 98.2 ??F BP Readings from Last 3 Encounters: 09/28/13 118/80 09/02/13 144/82 09/01/13 136/94 Pulse Readings from Last 3 Encounters: 09/28/13 78 09/02/13 89 09/01/13 76 General: alert, cooperative, no distress Head: NCAT w/o lesions or tenderness Eyes: PERRLA, EOMI, Sclera and conjunctiva clear Ears: both tympanic membranes are erythematous. Nose: normal OP: Normal. Neck: range of motion is intact, no masses, thyroid not enlarged, no adenopathy, supple Heart: normal rate, regular rhythm, normal S1, S2, no murmurs, rubs, clicks or gallops Lungs: clear to auscultation bilaterally Abdomen: soft without mass, non-tender, with normal bowel sounds Back: symmetric, no curvature. ROM normal. No CVA tenderness. Extremities: no clubbing, cyanosis or edema Right foot pain when dorsiflex, pointing, and lateral movement. Neuro: negative Skin: Skin color, texture, turgor normal. No rashes or lesions ASSESSMENT and PLAN: 1. HTN (hypertension) continue same medication. 2. Prediabetes HEMOGLOBIN A1C 3. Depressive disorder, not elsewhere classified continue Celexa 4. Mixed hyperlipidemia LIPID PROFILE 5. Hypothyroidism THYROID PANEL W TSH 6. Otitis media azithromycin (ZITHROMAX) 250 MG tablet 7. Pain in ankle joint XR ANKLE 3+ VW RIGHT 8. Vitamin D deficiency VITAMIN D 25-HYDROXY follow up in 3 months. ONAL BANKER documented in this encounter Miscellaneous Notes * Addendum Note - Melinda Harris - 09/29/2013 1:16 PM CSTAddended by: MELINDA HARRIS on: 09/29/2013 01:16 PM Modules accepted: Orders ONAL BANKER documented in this encounter Plan of Treatment Upcoming Encounters Date Type Department Care Team (Late st Contact Info) Description 09/27/2024 2:20 PM PERSONAL BANKER Office Visit [facility] Neurosciences [address] [facility] [address] [place] [address] [place] [address] [facility] [address] [place] [phone] 09/28/2024 1:00 PM PERSONAL BANKER Office Visit [facility] [place] [address] [address] , [address] [place] [address] [place] [address] [address] [facility] [address] [place] [address] documented as of this encounter Procedures Procedure Name Priority Date/Time Associated Diagnosis Comments XR ANKLE RIGHT 3VW OR MORE Routine 09/28/2013 3:55 PM PERSONAL BANKER Pain in ankle joint THYROID PANEL W TSH (TSH,T4,T3 UPTAKE,FTI) Routine 09/28/2013 3:34 PM PERSONAL BANKER Hypothyroidism HEMOGLOBIN A1C Routine 09/28/2013 3:34 PM PERSONAL BANKER Prediabetes VITAMIN D 25-HYDROXY Routine 09/28/2013 3:34 PM PERSONAL BANKER Vitamin D deficiency LIPID PROFILE Routine 09/28/2013 3:34 PM PERSONAL BANKER Mixed hyperlipidemia documented in this encounter Results * XR ANKLE 3+ VW RIGHT (09/28/2013 3:55 PM PERSONAL BANKER) Anatomical Region Laterality Modality Lower Extremity Radiographic Louann ging 09/28/2013 4:11 PM PERSONAL BANKER Impressions 09/28/2013 6:52 PM PERSONAL BANKER Negative for fracture at this time. ??Please see above. Edited by Yvrose Huerta on 09/28/2013 4:27 PM Narrative 09/28/2013 6:52 PM PERSONAL BANKER Examination: Right ankle 3 views Indication: ??Right [...] THYROID PANEL W TSH (09/28/2013 3:34 PM PERSONAL BANKER) TSH 0.596 0.450 - 4.500 uIU/mL [facility] INSURANCE BILL T4 Total 9.3 4.5 - 12.0 ug/dL [facility] INSURANCE BILL T3 Uptake 26 24 - 39 % [facility] INSURANCE BILL Free Thyroxine Index 2.4 1.2 - 4.9 [facility] INSURANCE BILL Blood specimen (specimen) BLOOD SPECIMEN / Unknown 09/28/2013 3:34 PM PERSONAL BANKER 09/28/2013 6:53 PM PERSONAL BANKER Narrative Resulting Agency Comment [facility] [id number] ??[facility] [phone] Sveta Gross MD LAB - CHEMISTRY ORD ERABLES [facility] INSURANCE BILL * VITAMIN D 25-HYDROXY (09/28/2013 3:34 PM PERSONAL BANKER) Vitamin D, 25 Hydroxy 31.6 30.0 - 100.0 ng/mL [facility] INSURANCE BILL Comment: Vitamin D deficiency has been defined by the [place] of [employer] and an Endocrine Society practice guideline as a level of serum 25-OH vitamin D less than 20 ng/mL (1,2). The Endocrine Society went on to further define vitamin D insufficiency as a level between 21 and 29 ng/mL (2). 1. IOM ([place] of [employer]). 2010. Dietary reference ?? intakes for calcium and D. Hu [place]: The ?? National Academies Press. 2. Waldemar MF, Rangel [place], Devin LAKE, et al. ?? Evaluation, treatment, and prevention of vitamin D ?? deficiency: an Endocrine Society clinical practice ?? guideline. JCEM. 2010; 96(7):1911-30. Blood specimen (specimen) BLOOD SPECIMEN / Unknown 09/28/2013 3:34 PM PERSONAL BANKER 09/28/2013 6:53 PM PERSONAL BANKER Narrative Resulting Agency Comment [facility] [address] ??[facility] [phone] Sveta Gross MD LAB - CHEMISTRY ORD ERACUCO [facility] INSURANCE BILL * (ABNORMAL) HEMOGLOBIN A1C (09/28/2013 3:34 PM PERSONAL BANKER) Hemoglobin A1c 5.8(H) 4.8 - 5.6 % [facility] INSURANCE BILL Comment: ? . ? Increased risk for diabetes: 5.7 - 6.4 ? Diabetes: >6.4 ? Glycemic control for adults with diabetes: <7.0 Whole blood specimen (specimen) BLOOD SPECIMEN / Unknown 09/28/2013 3:34 PM PERSONAL BANKER 09/28/2013 6:53 PM PERSONAL BANKER Narrative Resulting Agency Comment [facility] [phone] ??[facility] [id number] Sveta Gross MD LAB - CHEMISTRY ORD RepunchBLES Performing Organization Address [facility] Co de Phone Number [facility] INSURANCE BILL * (ABNORMAL) LIPID PROFILE (09/28/2013 3:34 PM PERSONAL BANKER) Cholesterol 270(H) 100 - 199 mg/dL [facility] INSURANCE BILL Triglycerides 183(H) 0 - 149 mg/dL [facility] INSURANCE BILL HDL Cholesterol 45 >39 mg/dL [facility] INSURANCE BILL Comment: According to ATP-III Guidelines, HDL-C >59 mg/dL is considered a negative risk factor for CHD. VLDL Calculated 37 5 - 40 mg/dL [facility] INSURANCE BILL LDL Calculated 188(H) 0 - 99 mg/dL [facility] INSURANCE BILL Comment NOT NEEDED [facility] INSURANCE BILL Comment:Ancillary determined the test is not needed Blood specimen (specimen) BLOOD SPECIMEN / Unknown 09/28/2013 3:34 PM PERSONAL BANKER 09/28/2013 6:53 PM PERSONAL BANKER Narrative Resulting Agency Comment [facility] [phone] ??[facility] [phone] Sveta Gross MD LAB - CHEMISTRY ORD RepunchBLES Performing Organization Address [facility] Co de Phone Number [facility] INSURANCE BILL documented in this encounter Visit Diagnoses Diagnosis HTN (hypertension)- Primary Unspecified essential hypertension Prediabetes Other abnormal glucose Depressive disorder, not elsewhere classified Mixed hyperlipidemia Hypothyroidism Unspecified hypothyroidism Otitis media Unspecified otitis media Pain in ankle joint Pain in joint, ankle and foot Vitamin D deficiency documented in this encounter Care Teams Application Support Developer Relationship Specialty Start Date End Date Sveta Rai MD PCP - General Internal Medicine 02/22/13 12/07/16 documented as of this encounter
--- OUTSIDE RECORDS SUMMARY | 2024-09-18 09:36 | XMS_ITS | Encounter Summary ---
Author Organization [facility] Address [address] [facility] [place] [address] Care Team Providers Care Operator Bearer Systems Name Role Phone Sveta Rai MD Primary Care Provider Reason for Visit * Reason Onset Date Comments Letter 09/02/2013 Encounter Details Date Type Department Care Team (Late st Contact Info) Description 09/02/2013 Telephone [facility] Medical [facility] - Family Medicine [address] [place] [address] [phone] Sveta Rai MD [address] [place] [address] DR NOONAN [address] [place] [phone] Letter Social History Tobacco Use Types Packs/Day [...] * Telephone Encounter - Melinda Newsome - 09/02/2013 11:35 AM CST Letter was approved by dr dwyer. Faxed to [phone] which was provided by the pt ICIAN PRACTICE MARKET MANAGER * Telephone Encounter - Rekha Newsome - 09/02/2013 8:08 AM CST Pt states she went to ER last night for her side pain. Pt states she is not ready to go back to work on Thursday. Pt states she needs another work note to excuse her for another week. Please advise ICIAN PRACTICE MARKET MANAGER documented in this encounter Plan of Treatment Upcoming Encounters Date Type Department Care Team (Late st Contact Info) Description 09/27/2024 2:20 PM PHYSICIAN PRACTICE MARKET MANAGER Office Visit [facility] Neurosciences [address] [phone] [place] [address] [phone] 09/28/2024 1:00 PM PHYSICIAN PRACTICE MARKET MANAGER Office Visit [facility] [place] [address] [address] , [address] [address] [place] [address] [address] documented as of this encounter Visit Diagnoses Not on filedocumented in this encounter Care Teams Operator Bearer Systems Relationship Specialty Start Date End Date Sveta Rai MD PCP - General Internal Medicine 02/22/13 12/07/16 documented as of this encounter
--- OUTSIDE RECORDS SUMMARY | 2024-09-18 09:36 | XMS_ITS | Encounter Summary ---
Author Organization [facility] Address [address] [place] [address] Care Team Providers Care Water Softener Servicer Name Role Phone Sveta Rai MD Primary Care Provider [phone] Reason for Visit * Reason Comments Pain Flank pt to ED with c/o le ft flank pain that wraps around to abd x few weeks. reports seen PCP, had CT which showed adrenal growth/mass, and was placed on tramadol. pt reports meds not working and can't sleep due to pain. nausea present, no emesis. Encounter Details Date Type Department Care Team (Late st Contact Info) Description 09/02/2013 1:43 AM FUSELAGE FRAMER - 09/02/2013 5:38 AM FUSELAGE FRAMER Emergency ER at [address] [address] Luciano Nguyễn, DO [address] [facility] [address] [address] [place] [id number] Right flank pain (Primary Dx) Discharge Disposition: Home or Self [...] Sign Reading Time Taken Comments Blood Pressure 144/82 09/02/2013 5:30 AM FUSELAGE FRAMER Pulse 89 09/02/2013 12:35 AM FUSELAGE FRAMER Temperature 37.1 ??C (98.8 ??F) 09/02/2013 12:[address] Respiratory Rate 20 09/02/2013 12:35 AM FUSELAGE FRAMER Oxygen Saturation 96% 09/02/2013 5:30 AM FUSELAGE FRAMER Inhaled Oxygen Concentration - - Weight 98.9 kg (218 lb) 09/02/2013 12:35 AM FUSELAGE FRAMER Height 162.6 cm (5' 4 ) 09/02/2013 12:35 AM FUSELAGE FRAMER Body Mass Index 37.42 09/02/2013 12:35 AM FUSELAGE FRAMER documented in this encounter Discharge Instructions * Discharge Instructions* Luciano Nguyễn DO - 09/02/2013 5:12 AM FUSELAGE FRAMER Medications as prescribed. Follow up with your doctor today. Drink plenty of fluids. Return to the ER for any worsening symptoms. LAGE FRAMER * Discharge Instructions* Document, Scanned - 09/02/2013 3:22 PM FUSELAGE FRAMER LAGE FRAMER documented in this encounter Medications at Time [...] every 6 hours as needed for Pain. 30 Tab 0 09/02/2013 09/28/2013 levothyroxine (TIROSINT) 88 MCG capsuleIndications:Hypot hyroidism Take [...] for Nausea/Vomiting. 30 Tab 0 08/23/2013 12/21/2013 traMADol (ULTRAM) 50 MG tabletIndications:Abdomi nal pain, RUQ (right upper quadrant) Take 1 Tab by mouth every 6 hours as needed for Pain for 10 days. 50 Tab 0 09/01/2013 2013 documented as of this encounter Progress Notes * Sveta Terry MD - 09/02/2013 11:31 AM CST The patient went to the ER last night for abdominal pain. I tried to switch her Marina to tramadol yesterday when I saw her but that did not help her pain at all. the patient 3 weeks status post Laparoscopic cholecystectomy, still complaining about upper abdominal pain that radiates to the right flank severe enough to require Marina at least 3 times a day, alsocomplained about nausea. She had seen the surgeon few days ago and things looks okay from a surgical point of view. She had CT scan for abdomen and pelvis done with IV contrast that did not show any fluid collection. For the above reasons I would like patient to be evaluated by doctor Rose whosaw her during her hospital stay initially. the patient UA showed UTI so she I will send Cipro 500 mg twice a day for 7 days to her pharmacy. LAGE FRAMER documented in this encounter ED Notes * Whitley Carlson RN - 09/02/2013 5:38 AM CST Dc instructions discussed with pt. All questions answered. Pt ready for discharge. LAGE FRAMER * Luciano Nguyễn, DO - 09/02/2013 2:05 AM CST Provider contact with the patient: 09/02/2013 02:05 Pool Rodriguez [id number] [facility] History Chief Complaint Patient presents with ??? Pain Flank pt to ED with c/o left flank pain that wraps around to abd x few weeks. reports seen PCP, had CT which showed adrenal growth/mass, and was placed on tramadol. pt reports meds not working and can't sleep due to pain. nausea present, no emesis. Chief complaint narrative was entered by triage nurse, not by physician. HPI Comments: 2:05 AM Pool Rodriguez, a 47 y.o. female with a past medical history that includes-- HTN, hyperlipidemia, GA, and generalized anxiety disorder --presents to the ER c/o right-sided flank pain beginning 2 weeks ago and gradually worsening. The patient states that the area is tender to touch and painful interiorly. The patient had a CT scan a week ago which showed a mass on her adrenal gland, but no acute findings. She did not have a kidney stone at that time. She has had a cholecystectomy recently performed by Dr. Alvares on the 10 of August. She has seen him in f/u and was informed that everything was fine with the surgery. The patient was recently switched to Tramadol for the pain. She has taken the medication multiple times without relief. Before the Tramadol, the patient was on Marina. The patient drove herself. The patient rates the pain as an 8/10. PCP: Sveta Elizabeth Abdominal The history is provided by the patient. This is a new problem. The current episode started more than 1 week ago. The problem occurs constantly. The pain is associated with an unknown factor. Pain location: right side. The quality of the pain is cramping. The pain is at a severity of 8/10. The pain is moderate. The pain radiates to the right side. Pertinent negatives include no fever, no nausea, no vomiting or no headaches.Nothing worsens the pain. The pain is relieved by nothing. Past workup includes CT scan. Past Medical History Diagnosis Date ??? Heart attack 2010 ??? HTN (hypertension) ??? Hyperlipemia ??? Multiple sclerosis 2005 ??? H/O heart artery stent [id number] LAD( ) niry ??? H/O laparoscopic adjustable [...] pain and leg swelling. Gastrointestinal: Positive for abdominal pain. Negative for nausea and vomiting. Genitourinary: Negative. Negative for flank pain. Musculoskeletal: Negative for back pain. Skin: Negative for rash. Neurological: Negative for dizziness and headaches. All other systems reviewed and are negative. Physical Exam BP 173/111 Pulse 89 Temp 98.8 ??F Resp 20 Ht 1.626 m (5' 4 ) Wt 98.884 kg (218 lb) BMI 37.42 kg/m2 SpO2 96% Physical Exam Nursing note and vitals reviewed. Constitutional: She is oriented to person, place, and time. Vital signs are normal. She appears distressed (mild distress). HENT: Head: Normocephalic and atraumatic. Right Ear: External ear normal. Left Ear: External ear normal. Eyes: EOM are normal. Pupils are equal, round, and reactive to light. Neck: Normal range of motion. Neck supple. Cardiovascular: Normal rate, regular rhythm, S1 normal, S2 normal and normal heart sounds. Pulmonary/Chest: Effort normal and breath sounds normal. Abdominal: Soft. Bowel sounds are normal. She exhibits no distension. There is tenderness. There isno guarding. Mild reproducible right flank pain. Musculoskeletal: Normal range of motion. She exhibits no tenderness. Neurological: She is alert and oriented to person, place, and time. GCS score is 15. Skin: Skin is warm, dry and intact. Psychiatric: Mood and affect normal. Medications Current Outpatient Prescriptions Medication Status Sig Dispense Refill ??? hydrocodone-acetaminophen (NORCO) 5-325 MG tablet Active Take 1 Tab by mouth every 6 hours as needed for Pain. 30 Tab 0 ??? traMADol (ULTRAM) 50 MG tablet Active Take 1 Tab by mouth every 6 hours as needed for Pain for 10 days. 50 Tab 0 ??? metoclopramide (REGLAN) 10 MG tablet Active Take 1 Tab by mouth 3 times daily as needed for Nausea/Vomiting. 15 Tab 0 ??? ondansetron (ZOFRAN) 4 MG tablet Active Take 1 Tab by mouth every 8 hours as needed for Nausea/Vomiting. 30 Tab 0 ??? lisinopril (PRINIVIL; ZESTRIL) 40 MG tablet Active Take 40 mg by mouth once daily. ??? aspirin 325 MG tablet Active Take 325 mg by mouth once daily. ??? metoprolol tartrate IR (LOPRESSOR) 25 MG [...] orders placed during the hospital encounter of 09/02/13 CBC W AUTO DIFFERENTIAL Component Value Range WBC 8.2 4.4-10.7 x10^9/L RBC 5.10 3.80-5.20 x10^12/L Hgb 14.9 12.0-15.6 gm/dL HCT 43.2 35.9-45.5 % MCV 84.7 80.7-98.3 fl MCH 29.2 26.7-34.0 pg MCHC 34.5 30.8-35.9 gm/dL Plt Ct 227 153-416 x10^9/L RDW-CV 14.4 12.1-14.9 % MPV 10.5 9.4-12.9 fl Neutro 43.1 (*) 44.0-73.0 % Lymph 45.5 (*) 20.0-43.0 % [place] 6.6 5.0-13.0 % Eos 3.3 0.0-6.0 % Baso 1.1 0.0-2.0 % Immature Grans 0.4 0-1 % Neutro Abs 3.52 2.01-7.14 x10^9/L Lymph Abs 3.71 1.07-3.94 x10^9/L [place] Abs 0.54 0.26-1.07 x10^9/L Eosin Abs 0.27 0-0.47 x10^9/L Baso Abs 0.09 (*) 0-0.08 x10^9/L Immature Grans Abs 0.03 0.00-0.06 x10^9/L COMPREHENSIVE METABOLIC PANEL Component Value Range Glucose 97 74-106 mg/dL Sodium 140 136-145 mmol/L Potassium 4.1 3.5-5.1 mmol/L Chloride 108 (*) 98-107 mmol/L CO2 26 22-31 mmol/L Calcium 8.5 8.5-10.1 mg/dL Anion Gap 6 5-15 mmol/L BUN 12 7-21 mg/dL Creatinine 0.48 (*) 0.50-1.30 mg/dL eGFR by MDRD >60 >60 mL/min/1.73m2 eGFR by MDRD AFR AMER >60 >60 mL/min/1.73m2 Alk Phos 100 38-126 U/L ALT/SGPT 31 12-78 U/L AST/SGOT 29 5-40 U/L Protein Total 7.6 6.4-8.2 gm/dL Albumin 3.7 3.4-5.0 gm/dL Bili Total 0.3 0.2-1.0 mg/dL URINALYSIS ROUTINE W/REFLEX TO CULTURE Component Value Range Color UA Yellow Straw, Yellow, Dark Yellow Clarity UA Cloudy Specific Lincoln UA 1.021 1.005-1.030 pH UA 6.5 5.0-8.0 pH Protein UA Negative Negative Blood UA Negative Negative Leukocyte UA 1+ (*) Negative Nitrite UA Negative Negative Glucose UA Negative Negative Ketone UA Negative Negative Bili UA 1+ (*) Negative Urobilinogen UA 1.0 0.1-1.0 EU/dL Reflex Status Culture to follow URINALYSIS MICROSCOPIC ONLY W/REFLEX CULTURE Component Value Range RBC UA 2-5 0-2, 2-5 # /hpf WBC UA 10-20 (*) 0-2, 2-5 # /hpf Bacteria UA 2+ (*) None Seen Epithelial Cell UA 10-20 (*) 0-2, 2-5 Mucus 2+ HCG URINE QUALITATIVE Component Value Range HCG Qual Urine Negative Negative CT ABDOMEN AND PELVIS NON IV CONTRAST (Results Pending) Patient Name: POOL RODRIGUEZ Age: 47 Patient MR NO: [id number] Referring Doctor: Patient Location: Emergency Department CLINICAL INDICATION: right flank pain CT ABDOMEN & PELVIS w/O Lack of intravenous contrast limits evaluation of the vasculature, solid organs, and soft tissues. No calcified obstructing ureteral stones or hydronephrosis appreciated bilaterally. Pelvic phleboliths and a slight nonspecific fullness of the left renal pelvis noted. 3.2 cm right adrenal adenoma. Dependent changes/atelectasis at the bases. Nonvisualized gallbladder.The appendix is visualized and appears unremarkable. Gastric banding noted. Nonspecific subcutaneous stranding in the periumbilical region, correlate with physical exam. Significant amount of stool within the visualized colon.Scattered mild thickening of the colonic wall, typically attributed to underdistention. Spondylosis. The visualized solid abdominal organs otherwise show no definite acute pathology. No bowel obstruction or free air. To TALK to Radiologist: [phone] Todd Martin M.D. Electronically Signed Date Of Exam Request:09/02/2013 3:45:35 AM CDT Date & Time Of Report: 09/02/2013 4:12:09 AM CDT Progress Notes 4:50 AM: Pt recheck- I spoke with the patient about the results of her labs and CT scan. I explained the discharge plan and f/u expectation for the patient. Specifically. I instructed the patient to call her PCP today and suggested that she pursue a GI evaluation. She was agreeable with the plan and is ready to go home. ED Course Medical Decision Making I have reviewed the: Nursing Notes and Vitals. I have interpreted the following results: Labs, CT Scans and Oxygen Saturation. Orders Placed This Encounter ??? CULTURE URINE ??? CT ABDOMEN AND PELVIS NON IV CONTRAST ??? CBC W AUTO DIFFERENTIAL ??? COMPREHENSIVE METABOLIC PANEL ??? URINALYSIS ROUTINE W/REFLEX TO CULTURE ??? URINALYSIS MICROSCOPIC ONLY W/REFLEX CULTURE ??? HCG URINE QUALITATIVE ??? 0.9% NaCl injection 1-10 mL ??? ondansetron (ZOFRAN) injection 4 mg ??? ketorolac (TORADOL) injection 30 mg ??? ketorolac (TORADOL) 30 mg/ml injection ADS Med ??? hydrocodone-acetaminophen (NORCO) 5-325 MG tablet 5:01 AM Rechecked pt - Pt is medically stable for d/c home at this time. I have given the patient instructions regarding her diagnosis, expectations, follow up, and return precautions. I explained to the patient that emergent conditions may arise and to return to the ER for new, worsening, or any persistent conditions. I've explained the importance of following up with her doctor--Sveta Terry-- as instructed. The patient verbalized understanding of the dischargeinstructions. Diagnosis: Final diagnoses: Right flank pain (Primary) New Medications: New Prescriptions HYDROCODONE-ACETAMINOPHEN (NORCO) 5-325 MG TABLET Take 1 Tab by mouth every 6 hours as needed for Pain. I have advised the patient to follow-[place] with: [place] [id number] [address] [facility] [address] [facility] [address] Call today Disposition: Discharged I have reviewed the information recorded by the scribe and agree with its accuracy and contents--Dr. Nguyễn 09/02/2013 5:13 AM Transcribed by Feliz Hayden --acting scribe on behalf of Dr. Nguyễn 09/02/2013 5:01 AM LAGE FRAMER documented in this encounter Miscellaneous Notes * Miscellaneous Scans - Document, Scanned - 09/03/2013 6:35 PM CST LAGE FRAMER * Miscellaneous Scans - Document, Scanned - 09/02/2013 3:22 PM CST LAGE FRAMER documented in this encounter Plan of Treatment Upcoming Encounters Date Type Department Care Team (Late st Contact Info) Description 09/27/2024 2:20 PM FUSELAGE FRAMER Office Visit [facility] [address] [facility] [address] [place] [address] [place] [address] [facility] [address] [place] [address] 09/28/2024 1:00 PM FUSELAGE FRAMER Office Visit [facility] [place] [id number] [address] [facility] [address] [place] [address] [place] [id number] [address] [facility] [address] [place] [address] documented as of this encounter Procedures Procedure Name Priority Date/Time Associated Diagnosis Comments CT ABDOMEN PELVIS WO CONTRAST STAT 09/02/2013 3:43 AM FUSELAGE FRAMER Right flank pain HCG URINE QUALITATIVE Add on 09/02/2013 3:23 AM FUSELAGE FRAMER URINALYSIS REFLEX MICROSCOPIC REFLEX CULTURE STAT 09/02/2013 2:26 AM FUSELAGE FRAMER CBC W AUTO DIFFERENTIAL STAT 09/02/2013 2:26 AM FUSELAGE FRAMER COMPREHENSIVE METABOLIC PANEL STAT 09/02/2013 2:26 AM FUSELAGE FRAMER URINE MICROSCOPIC ONLY REFLEX TO CULTURE STAT 09/02/2013 2:26 AM FUSELAGE FRAMER CULTURE URINE STAT 09/02/2013 2:26 AM FUSELAGE FRAMER documented in this encounter Results * CT ABDOMEN AND PELVIS NON IV CONTRAST (09/02/2013 3:43 AM FUSELAGE FRAMER) Anatomical Region Laterality Modality Abdomen, Pelvis Computed Tomogra phy 09/02/2013 7:56 AM FUSELAGE FRAMER Impressions 09/02/2013 8:31 AM FUSELAGE FRAMER No acute process is seen. Preliminary interpretation was provided by [facility]. Edited by Teresita Shea on 09/02/2013 8:08 AM Narrative 09/02/2013 8:[address] ABDOMEN AND PELVIS WITHOUT CONTRAST Clinical [...] is seen. Preliminary interpretation was provided by [facility]. Edited by Teresita Shea on 09/02/2013 8:08 AM Luciano Nguyễn DO CT ORDERABLES * HCG URINE QUALITATIVE (09/02/2013 3:23 AM FUSELAGE FRAMER) hCG Qualitative Urine Negative Negative 09/02/2013 3:30 AM FUSELAGE FRAMER [facility] Urine URINE / Unknown 09/02/2013 3 :23 AM FUSELAGE FRAMER 09/02/2013 3:23 AM FUSELAGE FRAMER Luciano Nguyễn DO LAB - URINALYSIS ORD ERABLES [facility] [address] [place] [address] * (ABNORMAL) URINALYSIS ROUTINE W/REFLEX TO CULTURE (09/02/2013 2:26 AM FUSELAGE FRAMER) Color UA Yellow Straw, Yellow, Dark Yellow 09/02/2013 2:45 AM FUSELAGE FRAMER [facility] Clarity UA Cloudy 09/02/2013 2:[address] [facility] Specific Lincoln UA 1.021 1.005 - 1.030 09/02/2013 2:45 AM FUSELAGE FRAMER [facility] pH UA 6.5 5.0 - 8.0 pH 09/02/2013 2:45 AM FUSELAGE FRAMER [facility] Protein UA Negative Negative 09/02/2013 2:45 AM FUSELAGE FRAMER [facility] Blood UA Negative Negative 09/02/2013 2:[address] [facility] Leukocyte UA 1+(A) Negative 09/02/2013 2:45 AM FUSELAGE FRAMER [facility] Nitrite UA Negative Negative 09/02/2013 2:45 AM FUSELAGE FRAMER [facility] Glucose UA Negative Negative 09/02/2013 2:45 AM FUSELAGE FRAMER [facility] Ketone UA Negative Negative 09/02/2013 2:[address] [facility] Bilirubin UA 1+(A) Negative 09/02/2013 2:[address] [facility] Comment:Unable to verify ricardo irubin result. Urobilinogen UA 1.0 0.1 - 1.0 EU/dL 09/02/2013 2:[address] [facility] Reflex Status Culture to follow 09/02/2013 2:[address] [facility] Urine URINE SPECIMEN OBTAINED BY CLEAN CATCH PROCEDURE / Unknown 09/02/2013 2:26 AM FUSELAGE FRAMER 09/02/2013 2:34 AM FUSELAGE FRAMER Luciano Nguyễn DO LAB - URINALYSIS ORD ERABLES [facility] [address] [place] [address] * (ABNORMAL) COMPREHENSIVE METABOLIC PANEL (09/02/2013 2:26 AM FUSELAGE FRAMER) Glucose 97 74 - 106 mg/dL 09/02/2013 2:[address] [facility] Sodium 140 136 - 145 mmol/L 09/02/2013 2:[address] [facility] Potassium 4.1 3.5 - 5.1 mmol/L 09/02/2013 2:[address] [facility] Chloride 108(H) 98 - 107 mmol/L 09/02/2013 2:[address] [facility] CO2 26 22 - 31 mmol/L 09/02/2013 2:[address] [facility] Calcium 8.5 8.5 - 10.1 mg/dL 09/02/2013 2:[address] [facility] Anion Gap 6 5 - 15 mmol/L 09/02/2013 2:[address] [facility] BUN 12 7 - 21 mg/dL 09/02/2013 2:[address] [facility] Creatinine 0.48(L) 0.50 - 1.30 mg/dL 09/02/2013 2:[address] [facility] eGFR by MDRD >60 >60 mL/min/1.7 3m2 09/02/2013 2:[address] [facility] eGFR by MDRD >60 >60 mL/min/1.7 3m2 09/02/2013 2:[address] [facility] Alkaline Phosphatase 100 38 - 126 U/L 09/02/2013 2:[address] [facility] ALT 31 12 - 78 U/L 09/02/2013 2:[address] [facility] AST 29 5 - 40 U/L 09/02/2013 2:[address] [facility] Protein Total 7.6 6.4 - 8.2 gm/dL 09/02/2013 2:[address] [facility] Albumin 3.7 3.4 - 5.0 gm/dL 09/02/2013 2:[address] [facility] Bilirubin Total 0.3 0.2 - 1.0 mg/dL 09/02/2013 2:[address] [facility] Blood BLOOD SPECIMEN / Unknown 09/02/2013 2:26 AM FUSELAGE FRAMER 09/02/2013 2:34 AM FUSELAGE FRAMER Luciano Nguyễn DO LAB - CHEMISTRY FRANKE IVAN [facility] [address] [place] [address] * (ABNORMAL) CBC W AUTO DIFFERENTIAL (09/02/2013 2:26 AM FUSELAGE FRAMER) WBC 8.2 4.4 - 10.7 x10^9/L 09/02/2013 2:[address] [facility] RBC 5.10 3.80 - 5.20 x10^12/L 09/02/2013 2:[address] [facility] Hemoglobin 14.9 12.0 - 15.6 gm/dL 09/02/2013 2:[address] [facility] Hematocrit 43.2 35.9 - 45.5 % 09/02/2013 2:[address] [facility] MCV 84.7 80.7 - 98.3 fl 09/02/2013 2:[address] [facility] MCH 29.2 26.7 - 34.0 pg 09/02/2013 2:[address] [facility] MCHC 34.5 30.8 - 35.9 gm/dL 09/02/2013 2:[address] [facility] Platelet Count 227 153 - 416 x10^9/L 09/02/2013 2:[address] [facility] RDW-CV 14.4 12.1 - 14.9 % 09/02/2013 2:[address] [facility] MPV 10.5 9.4 - 12.9 fl 09/02/2013 2:[address] [facility] Neutrophils % 43.1(L) 44.0 - 73.0 % 09/02/2013 2:[address] [facility] Lymphocytes % 45.5(H) 20.0 - 43.0 % 09/02/2013 2:[address] [facility] Monocytes % 6.6 5.0 - 13.0 % 09/02/2013 2:[address] [facility] Eosinophils % 3.3 0.0 - 6.0 % 09/02/2013 2:[address] [facility] Basophils % 1.1 0.0 - 2.0 % 09/02/2013 2:[address] [facility] Immature Granulocytes 0.4 0 - 1 % 09/02/2013 2:[address] [facility] Neutrophil Absolute 3.52 2.01 - 7.14 x10^9/L 09/02/2013 2:[address] [facility] Lymphocytes Absolute 3.71 1.07 - 3.94 x10^9/L 09/02/2013 2:[address] [facility] Monocytes Absolute 0.54 0.26 - 1.07 x10^9/L 09/02/2013 2:[address] [facility] Eosinophils Absolute 0.27 0 - 0.47 x10^9/L 09/02/2013 2:[address] [facility] Basophils Absolute 0.09(H) 0 - 0.08 x10^9/L 09/02/2013 2:[address] [facility] Immature Granulocytes Absolute 0.03 0.00 - 0.06 x10^9/L 09/02/2013 2:[address] [facility] Blood BLOOD SPECIMEN / Unknown 09/02/2013 2:26 AM FUSELAGE FRAMER 09/02/2013 2:34 AM [facility] Luciano Nguyễn DO LAB - HEMATOLOGY ORD ERABLES [facility] [address] [place] [address] * (ABNORMAL) URINALYSIS MICROSCOPIC ONLY W/REFLEX CULTURE (09/02/2013 2:26 AM FUSELAGE FRAMER) RBC UA 2-5 0-2, 2-5 # /hpf 09/02/2013 2:52 AM FUSELAGE FRAMER [facility] WBC UA 10-20(A) 0-2, 2-5 # /hpf 09/02/2013 2:52 AM FUSELAGE FRAMER [facility] Bacteria UA 2+(A) None Seen 09/02/2013 2:52 AM FUSELAGE FRAMER [facility] Epithelial Cell UA 10-20(A) 0-2, 2-5 09/02/2013 2:52 AM FUSELAGE FRAMER [facility] Mucus UA 2+ 09/02/2013 2:52 AM FUSELAGE FRAMER [facility] Urine URINE SPECIMEN OBTAINED BY CLEAN CATCH PROCEDURE / Unknown 09/02/2013 2:26 AM FUSELAGE FRAMER 09/02/2013 2:34 AM FUSELAGE FRAMER Luciano Nguyễn DO LAB - URINALYSIS ORD ERABLES Performing Organization Address [facility] Co de Phone Number [facility] [address] [place] [address] * CULTURE URINE (09/02/2013 2:26 AM FUSELAGE FRAMER) Pathologist [facility] Culture <10,000 CFU/mL normal urogenital lina 09/04/2013 10:38 AM FUSELAGE FRAMER [facility] Urine URINE SPECIMEN OBTAINED BY CLEAN CATCH PROCEDURE / Unknown 09/02/2013 2:26 AM FUSELAGE FRAMER 09/02/2013 2:34 AM FUSELAGE FRAMER Luciano Nguyễn DO LAB - MICROBIOLOGY O RDERABLES Performing Organization Address [facility] Co de Phone Number [facility]CRO[facility]OLOGY [address] [facility] [address] documented in this encounter Visit Diagnoses Diagnosis Right flank pain- Primary Abdominal pain, unspecified site documented in this encounter Administered Medications Inactive Administered Medications - up to 3 most recent administrations Medication Order MAR Action Action Date Dose Rate Site ketorolac (TORADOL) 30 mg/ml injection ADS Med 1 dose, Starting on Thu09/02/13 at 0304, Until Thu09/02/13 at 0306, WHITLEY CARLSON: cabinet override . WASTE DISPOSAL INSTRUCTIONS: Black Bin Disposal required. ketorolac (TORADOL) injection 30 mg 30 mg, Intravenous, ONCE, 1 dose, On Thu09/02/13 at 0330, . WASTE DISPOSAL INSTRUCTIONS: Black Bin Disposal required. $ Given 09/02/2013 3:06 AM FUSELAGE FRAMER 30 mg documented in this encounter Active and Recently Administered Medications Times are shown in FUSELAGE FRAMER. Scheduled Medication Order 08/31/2013 09/01/2013 09/02/2013 ketorolac (TORADOL) injection 30 mg (COMPLETED) 30 mg, Intravenous, ONCE, 1 dose, On Thu09/02/13 at 0330, . WASTE DISPOSAL INSTRUCTIONS: Black Bin Disposal required. 0306 ($ Given - Prov ider: Whitley Carlson RN) documented in this encounter Care Teams Water Softener Servicer Relationship Specialty Start Date End Date Sveta Rai MD PCP - General Internal Medicine 02/22/13 12/07/16 documented as of this encounter
--- OUTSIDE RECORDS SUMMARY | 2024-09-18 09:36 | XMS_ITS | Encounter Summary ---
Author Organization [facility] Address [address] [place] [address] Care Team Providers Care Smash Piecer Name Role Phone Sveta Rai MD Primary Care Provider [phone] Reason for Visit * Reason Onset Date Comments Request Lab Order 04/21/2014 Encounter Details Date Type Department Care Team (Late st Contact Info) Description 04/21/2014 Telephone [facility] Medical [facility] - Family Medicine [address] [place] [address] Sveta Rai MD [address] [place] [address] DR NOONAN [address] [place] [phone] Request Lab Order Social History Tobacco Use [...] * Telephone Encounter - Melinda Newsome - 04/24/2014 10:23 AM CDTQuick Note: Labs and instructions released via [employer] * Telephone Encounter - Sveta Rai MD - 04/24/2014 8:39 AM CDTQuick Note: Good vit d level continue same OTC vit D. Prediabetes, continue diet and exercise. * Telephone Encounter - Lucretia Funes - 04/21/2014 1:27 PM CDT LM labs were order * Telephone Encounter - Melinda Newsome - 04/21/2014 1:07 PM CDT Labs have been ordered to [facility]. Please advise * Telephone Encounter - Rekha Newsome - 04/21/2014 12:39 PM CDT Pt has appointment today at 1:45. Pt would like to know if her blood work can be ordered prior. Pt states she got off work early and would like to get this out of the way. Please advise documented in this encounter Plan of Treatment Upcoming Encounters Date Type Department Care Team (Late st Contact Info) Description 09/27/2024 2:20 PM ALMOND PASTE MIXER Office Visit [facility] Neurosciences [address] [facility] [address] [place] [address] [place] [address] [facility] [address] [place] [address] 09/28/2024 1:00 PM ALMOND PASTE MIXER Office Visit [facility] [place] [address] [address] Barrett, Juan Alberto [address] [place] [address] [place] [address] [address] documented as of this encounter Goals Goal Patient Goal Type Associated Problems Recent Progress Patient-Stated? Author Blood Pressure < 140/90 Blood Pressure 102/69(2022 11:30 AM ALMOND PASTE MIXER) No Melinda Newsome Quit smoking / using tobacco Lifestyle No Melinda Newsome documented as of this encounter Procedures Procedure Name Priority Date/Time Associated Diagnosis Comments HEMOGLOBIN A1C Routine 04/21/2014 2:05 PM CDT Prediabetes VITAMIN D 25-HYDROXY Routine 04/21/2014 2:05 PM CDT Vitamin D deficiency GENERAL HEALTH PANEL Routine 04/21/2014 2:04 PM CDT HTN (hypertension) Prediabetes Mixed hyperlipidemia Hypothyroidism documented in this encounter Results * (ABNORMAL) HEMOGLOBIN A1C (04/21/2014 2:05 PM CDT) Hemoglobin A1c 6.0(H) 4.8 - 5.6 % [facility] ACCOUNT BILL Comment: ? . ? Increased risk for diabetes: 5.7 - 6.4 ? Diabetes: >6.4 ? Glycemic control for adults with diabetes: <7.0 Whole blood specimen (specimen) BLOOD SPECIMEN WITH EDTA / Unknown 04/21/2014 2:05 PM CDT 04/21/2014 4:56 PM CDT Narrative Resulting Agency Comment [facility] [address] ??[facility] [id number] Sveta Gross MD LAB - CHEMISTRY ORD ERABLES [facility] ACCOUNT BILL * VITAMIN D 25-HYDROXY (04/21/2014 2:05 PM CDT) Vitamin D, 25 Hydroxy 38.2 30.0 - 100.0 ng/mL [facility] ACCOUNT BILL Comment: Vitamin D deficiency has been defined by the [place] of Medicine and an Endocrine Society practice guideline as a level of serum 25-OH vitamin D less than 20 ng/mL (1,2). The Endocrine Society went on to further define vitamin D insufficiency as a level between 21 and 29 ng/mL (2). 1. IOM ([place] of Medicine). 2010. Dietary reference ?? intakes for calcium and D. Hu [place]: The ?? [employer]. 2. Waldemar MF, Rangel GUTIÉRREZ, Devin LAKE, et al. ?? Evaluation, treatment, and prevention of vitamin D ?? deficiency: an Endocrine Society clinical practice ?? guideline. JCEM. 2010; 96(7):1911-30. Blood specimen (specimen) BLOOD SPECIMEN / Unknown 04/21/2014 2:05 PM CDT 04/21/2014 4:56 PM CDT Narrative Resulting Agency Comment [facility] [address] ??[facility] [id number] Sveta Gross MD LAB - CHEMISTRY ORD ERABLES [facility] ACCOUNT BILL * GENERAL HEALTH PANEL (04/21/2014 2:04 PM CDT) Glucose 75 65 - 99 mg/dL [facility] ACCOUNT BILL BUN 16 6 - 24 mg/dL [facility] ACCOUNT BILL Creatinine 0.78 0.57 - 1.00 mg/dL [facility] ACCOUNT BILL eGFR by MDRD 90 >59 mL/min/1. 73 [facility] ACCOUNT BILL eGFR by MDRD 103 >59 mL/min/1. 73 [facility] ACCOUNT BILL BUN/Creatinine Ratio 21 9 - 23 [facility] ACCOUNT BILL Sodium 140 134 - 144 mmol/L [facility] ACCOUNT BILL Potassium 4.3 3.5 - 5.2 mmol/L [facility] ACCOUNT BILL Chloride 99 97 - 108 mmol/L [facility] ACCOUNT BILL CO2 22 18 - 29 mmol/L [facility] ACCOUNT BILL Calcium 9.3 8.7 - 10.2 mg/dL [facility] ACCOUNT BILL Protein Total 6.9 6.0 - 8.5 g/dL [facility] ACCOUNT BILL Albumin 4.4 3.5 - 5.5 g/dL [facility] ACCOUNT BILL Globulin Total 2.5 1.5 - 4.5 g/dL [facility] ACCOUNT BILL Albumin/Globulin Ratio 1.8 1.1 - 2.5 [facility] ACCOUNT BILL Bilirubin Total 0.6 0.0 - 1.2 mg/dL [facility] ACCOUNT BILL Alkaline Phosphatase 57 39 - 117 IU/L [facility] ACCOUNT BILL AST 20 0 - 40 IU/L [facility] ACCOUNT BILL ALT 17 0 - 32 IU/L [facility] ACCOUNT BILL TSH 1.140 0.450 - 4.500 uIU/mL [facility] ACCOUNT BILL Comment NOT NEEDED [facility] ACCOUNT BILL Comment:Ancillary determined the test is not needed WBC 6.3 3.4 - 10.8 x10E3/uL [facility] ACCOUNT BILL RBC 4.78 3.77 - 5.28 x10E6/uL [facility] ACCOUNT BILL Hemoglobin 13.7 11.1 - 15.9 g/dL [facility] ACCOUNT BILL Hematocrit 41.2 34.0 - 46.6 % [facility] ACCOUNT BILL MCV 86 79 - 97 fL [facility] ACCOUNT BILL MCH 28.7 26.6 - 33.0 pg [facility] ACCOUNT BILL MCHC 33.3 31.5 - 35.7 g/dL [facility] ACCOUNT BILL RDW 14.0 12.3 - 15.4 % [facility] ACCOUNT BILL Platelet Count 204 150 - 379 x10E3/uL [facility] ACCOUNT BILL Granulocytes % 47 40 - 74 % [facility] ACCOUNT BILL Lymphocytes % 42 14 - 46 % [facility] ACCOUNT BILL Monocytes % 7 4 - 12 % [facility] ACCOUNT BILL Eosinophils % 3 0 - 5 % [facility] ACCOUNT BILL Basophils % 1 0 - 3 % [facility] ACCOUNT BILL Immature Cells NOT NEEDED [facility] ACCOUNT BILL Comment:Ancillary determined the test is not needed Granulocytes Absolute 3.0 1.4 - 7.0 x10E3/uL [facility] ACCOUNT BILL Lymphocytes Absolute 2.7 0.7 - 3.1 x10E3/uL [facility] ACCOUNT BILL Monocytes Absolute 0.4 0.1 - 0.9 x10E3/uL [facility] ACCOUNT BILL Eosinophils Absolute 0.2 0.0 - 0.4 x10E3/uL [facility] ACCOUNT BILL Basophils Absolute 0.1 0.0 - 0.2 x10E3/uL [facility] ACCOUNT BILL Immature Granulocytes 0 0 - 2 % [facility] ACCOUNT BILL Immature Granulocytes Absolute 0.0 0.0 - 0.1 x10E3/uL [facility] ACCOUNT BILL nRBC NOT NEEDED [facility] ACCOUNT BILL Comment:Ancillary determined the test is not needed Comment Hematology NOT NEEDED [facility] ACCOUNT BILL Comment:Ancillary determined the test is not needed BLOOD SPECIMEN / Unknown 04/21/2014 2:04 PM CDT 04/21/2014 4:56 PM CDT Narrative Resulting Agency Comment [facility] [address] ??[facility] [phone] Sveta Gross MD LAB - CHEMISTRY ORD ERABLES [facility] ACCOUNT BILL documented in this encounter Visit Diagnoses Diagnosis HTN (hypertension)- Primary Unspecified essential hypertension Prediabetes Other abnormal glucose Mixed hyperlipidemia Hypothyroidism Unspecified hypothyroidism Vitamin D deficiency documented in this encounter Care Teams Smash Piecer Relationship Specialty Start Date End Date Sveta Rai MD PCP - General Internal Medicine 02/22/13 12/07/16 documented as of this encounter
--- OUTSIDE RECORDS SUMMARY | 2024-09-18 09:36 | XMS_ITS | Encounter Summary ---
Author Organization [facility] Address [address] [facility] [place] [address] Care Team Providers Care Master Fisher Name Role Phone Sveta Rai MD Primary Care Provider Reason for Visit * Reason Comments Refill Request Encounter Details Date Type Department Care Team (Late Contact Info) Description 12/29/2013 Refill [facility] - Family Medicine [id number] [place] [address] Sveta Rai MD [address] [place] [address] [id number] Refill Request Social History Tobacco Use Types [...] Miscellaneous Notes * Telephone Encounter - Melinda Newosme - 12/30/2013 11:08 AM CDT Rx approved documented in this encounter Plan of Treatment Upcoming Encounters Date Type Department Care Team (Late st Contact Info) Description 09/27/2024 2:20 PM VENETIAN BLIND TAPE CUTTER Office Visit [facility] Neurosciences [address] [facility] [address] [place] [phone] [place] [address] [facility] [address] [place] [address] 09/28/2024 1:00 PM VENETIAN BLIND TAPE CUTTER Office Visit [facility] [place] [address] [facility] [address] [place] [address] [place] [address] [address] [facility] [address] [place] [address] documented as of this encounter Visit Diagnoses Not on filedocumented in this encounter Care Teams Master Fisher Relationship Specialty Start Date End Date Sveta Rai MD PCP - General Internal Medicine 02/22/13 12/07/16 documented as of this encounter
--- OUTSIDE RECORDS SUMMARY | 2024-09-18 09:36 | XMS_ITS | Encounter Summary ---
Author Organization [facility] Address [address] [facility] [place] [address] Care Team Providers Care Road Design Draftsperson Name Role Phone Sveta Rai MD Primary Care Provider Reason for Visit * Radiology Services - Closed Specialty Diagnoses / Procedures Referred By Ernesto barrios Referred To Contact Diagnoses Screening for breast cancer Procedures MAMMO SCREENING DIGITAL IMAGE BILAT Sveta Rai MD [address] [place] [address] NOONAN [address] [place] [id number] Referral ID Status Reason Start Date Expiration Date Visits Re quested Visits Authorized [id number] Closed 01/24/2014 07/23/2014 1 1 Encounter Details Date Type Department Care Team (Latest Contact Info) Description 01/24/2014 3:25 PM CDT - 01/24/2014 11:59 PM T [facility] Encounter [facility] Breast Care [address] [place] [address] Sveta Rai MD [address] [place] [address] DR NOONAN [address] [place] [phone] Discharge Disposition: Home or Self Care [...] by mouth at bedtime. 30 Tab 5 01/13/2014 05/11/2014 B Complex Vitamins (B-COMPLEX/B-12 PO) Take 1,000 mcg by mouth. 12/08/2016 citalopram (CELEXA) 20 MG tablet Take 20 mg by mouth once daily. 05/12/2014 levothyroxine (SYNTHROID) 88 MCG tablet TAKE ONE TABLET BY MOUTH EVERY DAY BEFORE BREAKFAST 30 Tab 5 12/29/2013 09/04/2014 lisinopril (PRINIVIL; ZESTRIL) 40 MG tablet Take 40 mg by mouth once daily. 05/12/2014 metoprolol tartrate IR (LOPRESSOR) 50 MG tablet Take 0.5 Tabs by mouth 2 times daily. 60 Tab 5 09/21/2013 04/21/2014 nitroglycerin (NITROSTAT) 0.4 MG tablet Dissolve 1 Tab under the tongue every 5 minutes as needed for Angina. 100 Tab 3 02/22/2013 05/11/2014 documented as of this encounter Miscellaneous Notes * Miscellaneous Scans - Document, Scanned - 01/27/2014 2:42 AM CDT documented in this encounter Plan of Treatment Upcoming Encounters Date Type Department Care Team (Late st Contact Info) Description 09/27/2024 2:20 PM HOOK PULLER Office Visit [facility] Neurosciences [address] [facility] [address] [place] [address] [place] [address] [facility] [address]AN [address] [place] [address] 09/28/2024 1:00 PM HOOK PULLER Office [place] [facility] [place] [address] [place] [address] [place] [address] [address] [place] [address] documented as of this encounter Procedures Procedure Name Priority Date/Time Associated Diagnosis Comments MAMMO BILAT SCREENING Routine 01/24/2014 3:49 PM CDT Screening for breast cancer documented in this encounter Results * MAMMO SCREENING DIGITAL IMAGE BILAT (01/24/2014 3:49 PM CDT) Anatomical Region Laterality Modality Breast Bilateral Mammography 01/24/2014 8:17 PM CDT Narrative 01/25/2014 8:35 AM CDT DIGITAL BILATERAL SCREENING MAMMOGRAMS WITH CAD CORRELATION DATE: 01/24/14 PREVIOUS EXAM DATE: None available. INDICATION: Screening. TECHNIQUE: Bilateral craniocaudad (CC) and mediolateral oblique (MLO) views. The study was interpreted with the aid of CAD. TECHNOLOGIST: RT Kassie(Jennifer)(M) TISSUE DENSITY: Scattered fibroglandular elements. FINDINGS: There is no discrete abnormality. There is no significant microcalcification nor a mass identified. There are coarse calcifications present predominantly in the right breast. ASSESSMENT: BI-RADS 1: Negative RECOMMENDATIONS: Followup one year. The above findings should be correlated with physical examination. ??A relatively nonspecific study should not preclude additional evaluation if suspicious findings are present clinically. An [employer] Certified Facility. [facility] Breast Centers utilize Hooked as a reminder system to notify patients of their next recommended mammograms. Edited by Yvrose Huerta on 01/25/2014 7:34 AM Procedure Note Dana Patton MD - 01/25/2014 DIGITAL BILATERAL SCREENING MAMMOGRAMS WITH CAD CORRELATION DATE: 01/24/14 PREVIOUS EXAM DATE: None available. INDICATION: Screening. TECHNIQUE: Bilateral craniocaudad (CC) and mediolateral oblique (MLO) views. The study was interpreted with the aid of CAD. TECHNOLOGIST: Kimberly Seppelt, RT(R)(M) TISSUE DENSITY: Scattered fibroglandular elements. FINDINGS: There is no discrete abnormality. There is no significant microcalcification nor a mass identified. There are coarse calcifications present predominantly in the right breast. ASSESSMENT: BI-RADS 1: Negative RECOMMENDATIONS: Followup one year. The above findings should be correlated with physical examination. A relatively nonspecific study should not preclude additional evaluation if suspicious findings are present clinically. An [employer] Certified Facility. [facility] Breast Centers utilize Hooked as a reminder system to notify patients of their next recommended mammograms. Edited by Yvrose Huerta on 01/25/2014 7:34 AM Sveta Gross MD MAMMO ORDERABLES documented in this encounter Visit Diagnoses Not on filedocumented in this encounter Care Teams Road Design Draftsperson Relationship Specialty Start Date End Date Sveta Rai MD PCP - General Internal Medicine 02/22/13 12/07/16 documented as of this encounter
--- OUTSIDE RECORDS SUMMARY | 2024-09-18 09:36 | XMS_ITS | Encounter Summary ---
Author Organization [facility] Address [address] [facility] [place] [address] Care Team Providers Care Family Consultant Name Role Phone Sveta Rai MD Primary Care Provider Reason for Visit * Reason Onset Date Comments Update 08/26/2013 Encounter Details Date Type Department Care Team (Late st Contact Info) Description 08/26/2013 Telephone [facility] Medical [facility] - Family Medicine [id number] [place] [address] Sveta Rai MD [address] [place] [address] DR NOON[address] [place] [id number] Update Social History Tobacco Use Types Packs/Day Years [...] * Telephone Encounter - Melinda Newsome - 08/26/2013 9:08 AM CST is aware. Noted GATION LEGAL SECRETARY * Telephone Encounter - Anny Lopez MA - 08/26/2013 8:13 AM LITIGATION LEGAL SECRETARY Patient is still having abdominal pain and is going to [facility] ED GATION LEGAL SECRETARY documented in this encounter Plan of Treatment Upcoming Encounters Date Type Department Care Team (Late st Contact Info) Description 09/27/2024 2:20 PM LITIGATION LEGAL SECRETARY Office Visit [facility] Neurosciences [address] [facility] [address] [place] [phone] [place] [address] [facility] [address] [place] [phone] 09/28/2024 1:00 PM LITIGATION LEGAL SECRETARY Office Visit [facility] [place] [address] DePmoris Barrett, [address] [address] [place] [address] [address] [facility] [address] [place] [address] documented as of this encounter Visit Diagnoses Not on filedocumented in this encounter Care Teams Family Consultant Relationship Specialty Start Date End Date Sveta Rai MD PCP - General Internal Medicine 02/22/13 12/07/16 documented as of this encounter
--- OUTSIDE RECORDS SUMMARY | 2024-09-18 09:36 | XMS_ITS | Encounter Summary ---
Author Organization [facility] Address [address] [facility] [place] [address] Care Team Providers Care Volunteer Services Specialist Name Role Phone Sveta Rai MD Primary Care Provider [phone] Reason for Visit * Reason Comments Hyperlipidemia Hypertension Depression Pre-diabetes Encounter Details Date Type Department Care Team (Late st Contact Info) Description 12/21/2013 1:45 PM CDT Office Visit [facility] - Family Medicine [address] [place] [address] Sveta Rai MD [address] [place] [address] DR NOONAN [address] [place] [id number] HTN (hypertension) (Primary Dx); Prediabetes; Mixed hyperlipidemia; Hypothyroidism; Hot flashes, menopausal Social History Tobacco Use Types Packs/Day Years [...] Sign Reading Time Taken Comments Blood Pressure 132/84 12/21/2013 1:42 PM CDT Pulse 78 12/21/2013 1:42 PM CDT Temperature - - Respiratory Rate 18 12/21/2013 1:42 PM CDT Oxygen Saturation - - Inhaled Oxygen Concentration - - Weight 101.2 kg (223 lb) 12/21/2013 1:42 PM CDT Height 161.3 cm (5' 3.5 ) 12/21/2013 1:42 PM CDT Body Mass Index 38.88 12/21/2013 1:42 PM CDT documented in this encounter Progress Notes * Anival Sherwood MA - 12/26/2013 9:29 AM CDTQuick Note: Mailed letter to patient with results. Updated medication in patients chart. * Sveta Rai MD - 12/23/2013 11:18 PM CDTQuick Note: Chol better than before, but not at target increase lipitor to 20 mg q hs. LFT's are stable. Rest of labs are ok. * Sveta Rai MD - 12/21/2013 2:12 PM CDT SUBJECTIVE: Lucretia Rodriguez is a 48 y.o. female with Chief Complaint Patient presents with ??? Hyperlipidemia ??? Hypertension ??? Depression ??? Pre-diabetes HPI: Year to follow up on: - hypertension: blood pressure is stable on lisinopril 40 q day, metoprolol 25 twice a day. Denies any shortness of breath, chest pain are lightheadedness. - hyperlipidemia: is she is on Lipitor 10 mg, watching her diet. No muscle weakness or pain. -Depression: stable on Celexa 20 qd. - complained about hot flashes for the last few months. She had uterus ablation but she did not have periods in a long time, seems like she has reached menopause now. She has not done a Pap smear or mammogram in 2 years Past Medical History Diagnosis Date ??? Heart attack 2010 ??? HTN (hypertension) ??? Hyperlipemia ??? Multiple sclerosis 2005 ??? H/O heart artery stent 2010 [id number] LAD( ) caden ??? H/O laparoscopic adjustable [...] hematuria Musculoskeletal ROS: negative for - joint pain, joint stiffness or muscle pain Neurological ROS: no TIA or stroke symptoms Dermatological ROS: negative for - rash OBJECTIVE: BP 132/84 Pulse 78 Resp 18 Wt 101.152 kg (223 lb) BMI 38.88 kg/m2 General: alert, cooperative, no distress Eyes: [...] Cranial nerves 2-12 andsensation grossly intact. ASSESSMENT: 1. HTN (hypertension) 2. Prediabetes HEMOGLOBIN A1C 3. Mixed hyperlipidemia COMPREHENSIVE METABOLIC PANEL, LIPID PROFILE 4. Hypothyroidism TSH 5. Hot flashes, menopausal PLAN: Orders Placed This Encounter ??? COMPREHENSIVE METABOLIC PANEL ??? TSH ??? LIPID PROFILE ??? HEMOGLOBIN A1C Continue current medication, recommended black cohosh for hot flashes. She is already on SSRI. If hot flashes is still severe enough might consider hormone replacement and a referral to OBGYN. documented in this encounter Miscellaneous Notes * Addendum Note - Anival Sherwood MA - 12/26/2013 9:29 AM CDTAddended by: ANIVAL SHERWOOD on: 12/26/2013 09:29 AM Modules accepted: Orders, Medications documented in this encounter Plan of Treatment Upcoming Encounters Date Type Department Care Team (Late st Contact Info) Description 09/27/2024 2:20 PM FABRIC DESIGNER Office Visit [facility] Neurosciences [address] [facility] [address] [place] [phone] [place] [address] [facility] [address] [place] [phone] 09/28/2024 1:00 PM FABRIC DESIGNER Office Visit [facility] [place] [address] DePmoris Barrett, [address] [address] [place] [address] [address] [facility] [address] [place] [address] documented as of this encounter Procedures Procedure Name Priority Date/Time Associated Diagnosis Comments HEMOGLOBIN A1C Routine 12/21/2013 3:05 PM CDT Prediabetes COMPREHENSIVE METABOLIC PANEL Routine 12/21/2013 3:05 PM CDT Mixed hyperlipidemia TSH Routine 12/21/2013 3:05 PM CDT Hypothyroidism LIPID PROFILE Routine 12/21/2013 3:05 PM CDT Mixed hyperlipidemia documented in this encounter Results * (ABNORMAL) HEMOGLOBIN A1C (12/21/2013 3:05 PM CDT) Hemoglobin A1c 5.7(H) 4.8 - 5.6 % [facility] INSURANCE BILL Comment: ? . ? Increased risk for diabetes: 5.7 - 6.4 ? Diabetes: >6.4 ? Glycemic control for adults with diabetes: <7.0 Whole blood specimen (specimen) BLOOD SPECIMEN / Unknown 12/21/2013 3:05 PM CDT 12/21/2013 6:07 PM CDT Narrative Resulting Agency Comment [address] [facility] [id number] Sveta Gross MD LAB - CHEMISTRY ORD ERABLES [facility] INSURANCE BILL * (ABNORMAL) LIPID PROFILE (12/21/2013 3:05 PM CDT) Cholesterol 225(H) 100 - 199 mg/dL [facility] INSURANCE BILL Triglycerides 224(H) 0 - 149 mg/dL [facility] INSURANCE BILL HDL Cholesterol 49 >39 mg/dL [facility] INSURANCE BILL Comment: According to ATP-III Guidelines, HDL-C >59 mg/dL is considered a negative risk factor for CHD. VLDL Calculated 45(H) 5 - 40 mg/dL [facility] INSURANCE BILL LDL Calculated 131(H) 0 - 99 mg/dL [facility] INSURANCE BILL Comment NOT NEEDED [facility] INSURANCE BILL Comment:Ancillary determined the test is not needed Blood specimen (specimen) BLOOD SPECIMEN / Unknown 12/21/2013 3:05 PM CDT 12/21/2013 6:07 PM CDT Narrative Resulting Agency Comment [facility] ??[facility] [id number] Sveta Gross MD LAB - CHEMISTRY ORD ERABLES [facility] INSURANCE BILL * TSH (12/21/2013 3:05 PM CDT) TSH 0.551 0.450 - 4.500 uIU/mL [facility] INSURANCE BILL Blood specimen (specimen) BLOOD SPECIMEN / Unknown 12/21/2013 3:05 PM CDT 12/21/2013 6:07 PM CDT Narrative Resulting Agency Comment [facility] ??[facility] [phone] Sveta Gross MD LAB - CHEMISTRY ORD ERABLES [facility] INSURANCE BILL * COMPREHENSIVE METABOLIC PANEL (12/21/2013 3:05 PM CDT) Glucose 74 65 - 99 mg/dL [facility] INSURANCE BILL BUN 13 6 - 24 mg/dL [facility] INSURANCE BILL Creatinine 0.86 0.57 - 1.00 mg/dL [facility] INSURANCE BILL eGFR by MDRD 80 >59 mL/min/1.7 3 [facility] INSURANCE BILL eGFR by MDRD 92 >59 mL/min/1.7 3 [facility] INSURANCE BILL BUN/Creatinine Ratio 15 9 - 23 [facility] INSURANCE BILL Sodium 140 134 - 144 mmol/L [facility] INSURANCE BILL Potassium 4.1 3.5 - 5.2 mmol/L [facility] INSURANCE BILL Chloride 99 97 - 108 mmol/L [facility] INSURANCE BILL CO2 24 19 - 28 mmol/L [facility] INSURANCE BILL Calcium 9.8 8.7 - 10.2 mg/dL [facility] INSURANCE BILL Protein Total 7.8 6.0 - 8.5 g/dL [facility] INSURANCE BILL Albumin 4.9 3.5 - 5.5 g/dL [facility] INSURANCE BILL Globulin Total 2.9 1.5 - 4.5 g/dL [facility] INSURANCE BILL Albumin/Globulin Ratio 1.7 1.1 - 2.5 [facility] INSURANCE BILL Bilirubin Total 0.6 0.0 - 1.2 mg/dL [facility] INSURANCE BILL Alkaline Phosphatase 71 39 - 117 IU/L [facility] INSURANCE BILL AST 24 0 - 40 IU/L [facility] INSURANCE BILL ALT 19 0 - 32 IU/L [facility] INSURANCE BILL Blood specimen (specimen) BLOOD SPECIMEN / Unknown 12/21/2013 3:05 PM CDT 12/21/2013 6:07 PM CDT Narrative Resulting Agency Comment [facility] [address] ??[facility] [phone] Sveta Gross MD LAB - CHEMISTRY ORD ERABLES [facility] INSURANCE BILL documented in this encounter Visit Diagnoses Diagnosis HTN (hypertension)- Primary Unspecified essential hypertension Prediabetes Other abnormal glucose Mixed hyperlipidemia Hypothyroidism Unspecified hypothyroidism Hot flashes, menopausal Symptomatic menopausal or female climacteric states documented in this encounter Care Teams Volunteer Services Specialist Relationship Specialty Start Date End Date Sveta Rai MD PCP - General Internal Medicine 02/22/13 12/07/16 documented as of this encounter
--- OUTSIDE RECORDS SUMMARY | 2024-09-18 09:36 | XMS_ITS | Encounter Summary ---
Author Organization [facility] Health Address [address] [facility] [place] [address] Care Team Providers Care Solar Energy Technician Name Role Phone Sveta Rai MD Primary Care Provider Reason for Visit * Reason Comments Refill Request Encounter Details Date Type Department Care Team (Late Contact Info) Description 09/12/2013 Refill [facility] - Family Medicine [id number] [place] [phone] Sveta Rai MD [address] [place] [address] [phone] Refill Request Social History Tobacco Use Types [...] * Telephone Encounter - Melinda Newsome - 09/13/2013 4:20 PM CST Rx approved WEIGHER documented in this encounter Plan of Treatment Upcoming Encounters Date Type Department Care Team (Late st Contact Info) Description 09/27/2024 2:20 PM TARE WEIGHER Office Visit [facility] Neurosciences [address] [facility] [address] [place] [phone] [place] [address] [facility] [address] [place] [address] 09/28/2024 1:00 PM TARE WEIGHER Office Visit [facility] [place] [address] DePmoris Barrett, [address] [address] [place] [address] [address] [phone] documented as of this encounter Visit Diagnoses Not on filedocumented in this encounter Care Teams Solar Energy Technician Relationship Specialty Start Date End Date Sveta Rai MD PCP - General Internal Medicine 02/22/13 12/07/16 documented as of this encounter
--- OUTSIDE RECORDS SUMMARY | 2024-09-18 09:36 | XMS_ITS | Encounter Summary ---
Author Organization [facility] Health Address [address] [place] [address] Care Team Providers Care Pulmonary Fellow Name Role Phone Sveta Rai MD Primary Care Provider [phone] Reason for Referral * Radiology Services - Closed Specialty Diagnoses / Procedures Referred By Ernesto barrios Referred To Contact Diagnoses Screening for breast cancer Procedures MAMMO SCREENING DIGITAL IMAGE BILAT Sveta Rai MD [address] [facility] [address] NOONAN [address] [place] [address] Referral ID Status Reason Start Date Expiration Date Visits Re quested Visits Authorized [id number] Closed 01/24/2014 07/23/2014 1 1 * Test - Closed Specialty Diagnoses / Procedures Referred By Ernesto barrios Referred To Contact Gastroenterology Diagnoses Screening for colon cancer Sveta Rai MD [address] 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 Exam Encounter Details Date Type Department Care Team (Latest Contact Info) Description 01/24/2014 2:15 PM CDT Office Visit [facility] Family Medicine [address] [place] [address] Sveta Rai MD [address] [place] [address] DR NOONAN [address] [place] [address] Routine gynecological examination (Primary Dx); Screening for breast cancer; Screening for colon cancer; Screening for cervical cancer; Skin tag Social History Tobacco Use Types Packs/Day Years [...] Sign Reading Time Taken Comments Blood Pressure 130/92 01/24/2014 2:28 PM CDT Pulse 98 01/24/2014 2:28 PM CDT Temperature 37.3 ??C (99.2 ??F) 01/24/2014 2:28 PM CD T Respiratory Rate 14 01/24/2014 2:28 PM CDT Oxygen Saturation - - Inhaled Oxygen Concentration - - Weight 101.6 kg (224 lb) 01/24/2014 2:28 PM CDT Height 162.6 cm (5' 4 ) 01/24/2014 2:28 PM CDT Body Mass Index 38.45 01/24/2014 2:28 PM CDT documented in this encounter Progress Notes * Melinda Newsome - 02/01/2014 7:53 AM CDTQuick Note: Letter sent * Sveta Rai MD - 01/31/2014 10:13 PM CDTQuick Note: Neg pap smear. * Melinda Newsome - 01/25/2014 10:16 AM CDTQuick Note: Letter was sent * Sveta Rai MD - 01/25/2014 9:45 AM CDTQuick Note: Negative mammogram * Melinda Newsome - 01/24/2014 3:08 PM CDT Office Visit on 01/24/14 URINALYSIS AUTO - POINT OF CARE Component Value Range Clarity UA Color UA Leukocyte UA trace Negative Nitrite UA negative Negative Urobilinogen UA 0.2 0.1 - 1.0 Protein UA negative Negative pH UA 7.0 5.0 - 8.0 pH units Blood UA negative Negative Specific Hamilton UA 1.015 1.002 - 1.030 Ketone UA negative Negative Bili UA negative Negative Glucose UA negative Negative * Sveta Rai MD - 01/24/2014 2:34 PM CDT SUBJECTIVE: 48 y.o. female for annual routine Pap and [...] History Narrative ??? No narrative on file Past Surgical History Procedure Date ??? Coronary stent placement was on plavix for 9 month, now on ASA ??? Tonsillectomy ??? Sys lap band 10.0 2009 ??? Tubal ligation, laparoscopic ??? Cholecystectomy, laparoscopic 08/09/2013 ??? Cholecystectomy, laparoscopic 08/10/2013 LAPAROSCOPIC CHOLECYSTECTOMY ??? Ercp 08/12/2013 ERCP ??? Endometrial ablation 2006 for heavy menses. Allergies: Sulfa drugs and Latex No LMP recorded. Patient is not currently having periods (Reason: Menopause). ROS: Feeling well. No dyspnea or chest pain on exertion. No abdominal pain, change in bowel habits,black or bloody stools. No urinary tract symptoms. 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 No neurological complaints. Complained about hot flashes but they are tolerable. He has previous the endometrial ablation. She denies any vaginal irritation or thick secretions. The patient has a skin tag on the right side of her neck that she would like it removed as it bothers her a lot. Also would like to proceed with colonoscopy, she is almost 49-year-old and she has a family history of colon cancer. OBJECTIVE: The patient appears well, alert, oriented x 3, in no distress. Blood pressure 130/92, pulse 98, temperature 99.2 ??F, resp. rate 14, height 1.626 m (5' 4 ), weight 101.606 kg (224 lb). Wt Readings from Last 3 Encounters: 01/24/14 101.606 kg (224 lb) 12/21/13 101.152 kg (223 lb) 09/28/13 99.791 kg (220 lb) ENT: Normal. Neck: Supple. No adenopathy [...] and adnexa ASSESSMENT: Encounter Diagnoses Name Primary? Routine gynecological examination Yes ??? Screening for breast cancer ??? Screening for colon cancer ??? Screening for cervical cancer ??? Skin tag PLAN: Orders Placed This Encounter ??? REMOVAL-SKIN TAG ??? MAMMO SCREENING DIGITAL IMAGE BILAT [id number] Order Specific Question: Reason for Exam Answer: screening for breast cancer Order Specific Question: Perform Diagnostic mamm if screening abnormal? Answer: Yes Order Specific Question: Perform US breast if screening mamm abnormal? Answer: Yes Order Specific Question: Perform Breast Biopsy if screening mamm is abnormal? Answer: Yes ??? AMB REFERRAL TO GASTROENTEROLOGY Referral Type: Test Referral Reason: Specialty Services Required Referred to Provider: Mark Rose MD Requested Specialty: Gastroenterology Number of Visits Requested: 1 ??? URINALYSIS AUTO - POINT OF CARE ??? PAP SMEAR IG RFLX HPV ASCU (PO REF LAB) 1 skin tag was raised with cryotherapy using liquid nitrogen. The patient tolerate the procedure well. documented in this encounter Plan of Treatment Upcoming Encounters Date Type Department Care Team (Late st Contact Info) Description 09/27/2024 2:20 PM GAME TESTER Office Visit [facility] Neurosciences [address] [facility] [address] [place] [phone] [place] [address] [facility] [address] [place] [phone] 09/28/2024 1:00 PM GAME TESTER Office Visit [facility] [place] [address] Michele Barrett, [facility] [address] [place] [address] [place] [address] [address] [facility] [address] [place] [address] Scheduled Orders Name Type Priority Associated Diagnoses Orde r Schedule REMOVAL-SKIN TAG Procedures Routine Skin tag Ordered: 01/24/2014 Scheduled Referrals Name Type Priority Associated Diagnoses Order Schedule AMB REFERRAL TO GASTROENTEROLOGY Outpatient Referral Routine Screening for colon cancer Ordered: 01/24/2014 documented as of this encounter Procedures Procedure Name Priority Date/Time Associated Diagnosis Comments MAMMO BILAT SCREENING Routine 01/24/2014 3:49 PM CDT Screening for breast cancer PAP IG RFLX HPV ASCU Routine 01/24/2014 3:19 PM CDT Routine gynecological examination Screening for cervical cancer URINALYSIS AUTO - POINT OF CARE Routine 01/24/2014 3:08 PM CDT Routine gynecological examination documented in this encounter Results * MAMMO [...] with the aid of CAD. TECHNOLOGIST: Kimberly Simpson, RT(R)(M) TISSUE DENSITY: Scattered fibroglandular elements. FINDINGS: [...] if suspicious findings are present clinically. An [employer] Certified Facility. [facility] Centers utilize [employer] as a reminder system to notify patients of their next recommended mammograms. Edited by Yvrose Huerta on 01/25/2014 7:34 AM Procedure Note Dana aPtton MD - 01/25/2014 DIGITAL BILATERAL SCREENING MAMMOGRAMS WITH CAD CORRELATION DATE: 01/24/14 PREVIOUS EXAM DATE: None available. INDICATION: Screening. TECHNIQUE: Bilateral craniocaudad (CC) and mediolateral oblique (MLO) views. The study was interpreted with the aid of CAD. TECHNOLOGIST: RT Kassie(R)(M) TISSUE DENSITY: Scattered fibroglandular elements. FINDINGS: There is no discrete abnormality. There is no significant microcalcification nor a mass identified. There are coarse calcifications present predominantly in the right breast. ASSESSMENT: BI-RADS 1: Negative RECOMMENDATIONS: Followup one year. The above findings should be correlated with physical examination. A relatively nonspecific study should not preclude additional evaluation if suspicious findings are present clinically. An [employer] Certified Facility. [facility] Centers utilize [employer] as a reminder system to notify patients of their next recommended mammograms. Edited by Yvrose Huerta on 01/25/2014 7:34 AM Sveta Gross MD MAMMO ORDERABLES * PAP SMEAR IG RFLX HPV ASCU (PO REF LAB) (01/24/2014 3:19 PM CDT) Diagnosis [facility] INSURANCE BILL Comment:NEGATIVE FOR INTRAEP ITHELIAL LESION AND MALIGNANCY. Specimen Adequacy [facility] INSURANCE BILL Comment: Satisfactory for evaluation. ??Endocervical and/or squamous metaplastic cells (endocervical component) are present. Clinician Provided ICD9 [facility] INSURANCE BILL Comment: V72.31 ; Routine gynecological examination V76.10 ; Unspecified breast screening V76.51 ; Special screening for malignant neoplasms, colon V76.2 ; Screening for malignant neoplasm of the cervix 701.9 ; Unspecified hypertrophic and atrophic condition of skin Performed by [facility] INSURANCE BILL Comment:Axel Mendoza ytotechnologist ([facility]) Comment . [facility] INSURANCE BILL Note [facility] INSURANCE BILL Comment: The Pap smear is a screening test designed to aid in the detection of premalignant and malignant conditions of the uterine cervix. ??It is not a diagnostic procedure and should not be used as the sole means of detecting cervical cancer. ??Both false-positive and false-negative reports do occur. ? . [employer] [employer] [facility] INSURANCE BILL Comment: This liquid based ThinPrep(R) pap test was screened with the use of an image guided system. Note [facility] INSURANCE BILL Comment: The HPV DNA reflex [...] Vial Resulting Agency Comment [facility] [place] ??[place] [id number] Sveta Gross MD LAB - PATHOLOGY/CYT OLOGY ORDERABLES [facility] INSURANCE BILL * URINALYSIS AUTO - POINT OF CARE (01/24/2014 3:08 PM CDT) Clarity UA POCT Color UA POCT Leukocyte UA trace Negative Nitrite UA POCT negative Negative Urobilinogen UA 0.2 0.1 - 1.0 Protein UA POCT negative Negative pH UA 7.0 5.0 - 8.0 pH units Blood UA negative Negative Specific Hamilton UA POCT 1.015 1.002 - 1.030 Ketone UA negative Negative Bilirubin UA POCT negative Negative Glucose UA negative Negative Urine specimen (specimen) URINE / Unknown Sveta Gross MD LAB - POINT OF CARE ORDERABLES documented in this encounter Visit Diagnoses Diagnosis Routine gynecological examination- Primary Screening for colon cancer Special screening for malignant neoplasms, colon Screening for cervical cancer Screening for malignant neoplasm of the cervix Skin tag Unspecified hypertrophic and atrophic condition of skin documented in this encounter Care Teams Pulmonary Fellow Relationship Specialty Start Date End Date Sveta Rai MD PCP - General Internal Medicine 02/22/13 12/07/16 documented as of this encounter
--- OUTSIDE RECORDS SUMMARY | 2024-09-18 09:36 | XMS_ITS | Encounter Summary ---
Author Organization [facility] Address [address] [facility] [place] [address] Care Team Providers Care Admitting Office Escort Name Role Phone Sveta Rai MD Primary Care Provider [phone] Reason for Visit * Reason Comments Hypertension Hyperlipidemia Thyroid Problem Pre-diabetes Encounter Details Date Type Department Care Team (Late st Contact Info) Description 04/21/2014 1:45 PM CDT Office Visit [facility] - Family Medicine [address] [place] [address] Sveta Rai MD [address] [place] [address] DR NOONAN [address] [place] [phone] HTN (hypertension) (Primary Dx); Prediabetes; Depressive disorder, not elsewhere classified; Mixed hyperlipidemia; Hypothyroidism; Otitis media, bilateral Social History Tobacco Use Types Packs/Day Years [...] Sign Reading Time Taken Comments Blood Pressure 138/92 04/21/2014 1:30 PM CDT Pulse 68 04/21/2014 1:30 PM CDT Temperature - - Respiratory Rate 20 04/21/2014 1:30 PM CDT Oxygen Saturation - - Inhaled Oxygen Concentration - - Weight 102.1 kg (225 lb) 04/21/2014 1:30 PM CDT Height 162.6 cm (5' 4 ) 04/21/2014 1:30 PM CDT Body Mass Index 38.62 04/21/2014 1:30 PM CDT documented in this encounter Patient Instructions * Patient Instructions* Melinda Newsome - 04/21/2014 1:28 PM CDT Caring for Your High Blood Pressure Exercise ??? Exercising makes the heart stronger, lowers blood pressure, and keeps you healthy. ??? Check with your provider before starting an exercise program. ??? When starting a physical activity program, begin slowly to avoid injury. Even doing 5 to 10 minutes can be beneficial. Add a few minutes each week till you reach your goal. Choose an activity that fits your fitness level and interests, one that you can do on a regular basis. ??? Exercise activities like running, using weights, going to the gym are one type of physical activity, but day to day activities such as walking, stairs, cutting grass, gardening, and riding a bikeor vacuuming are also physical activities. IT ALL COUNTS!!!! Where can I go for more information? [place] [employer] Association National Center: http://www.americanheart.org 1. In the top header, click ???Conditions?? . 2. In the top header, click ???high blood pressure.?? 3. For a printable blood pressure tracker, scroll toward the bottom of the page to Related Tools, and click ???HBP Trackers.?? 6-044-GVC-USA-1 or ( ) National Heart, Lung and Blood [place]: http://www.nhlbi.nih.gov/health/infoctr/index.htm Where can I go for support and more information? There are many ways to quit smoking. Some may work better for you than others. Your caregiver can help you find the best plan to quit. Smokefree.gov Phone: 7-282-SWSM-NOW ( ) www.smokeLiftopiaee.[employer] [place] Lung Association Phone: Phone: www.lung.org Instant Rewards [...] that your body is healing. -Taken from www.Darwin Labee.gov Long?term Rewards of Quitting Tobacco use in [...] 13 other kinds of cancer -Taken from www.SmokeLiftopiaee.gov Tips if you slip ??? Don't be [...] Progress Notes * Sveta Rai MD - 04/21/2014 1:42 PM CDT SUBJECTIVE: Lucretia Rodriguez is a 48 y.o. female with Chief Complaint Patient presents with ??? Hypertension ??? Hyperlipidemia ??? Thyroid Problem ??? Pre-diabetes HPI: She is here to follow up on chronic conditions, she also complain about left ear ache for the last 2 days. She denies any upper respiratory infection recently, and denies any fever or chills or sore throat. - blood pressure is borderline she is currently on 25 metoprolol b.i.d. Denies any chest pain, shortness of breath. Complains about headache today since she has been fasting all day to go to the lab and check her blood. - pre diabetes is watching her diet and walking 2 times a week, the weight is still the same. She remains on 88 mcg of levothyroxine for hypothyroidism. Past Medical History Diagnosis Date ??? Heart attack 2010 ??? HTN (hypertension) ??? Hyperlipemia ??? Multiple sclerosis 2006 ??? H/O heart artery stent 2010 [id number] LAD( ) niry ??? H/O laparoscopic adjustable [...] Use: No ??? Drug Use: No ??? Sexual Activity: [...] after age 50 or unknown Maternal Uncle Allergies Allergen Reactions ??? Sulfa Drugs ??? Latex Review of Systems: General ROS: negative for - chills, fatigue or fever Respiratory ROS: no cough, shortness of breath, or wheezing Cardiovascular ROS: no chest pain or dyspnea on exertion Gastrointestinal ROS: no abdominal pain, change in bowel habits, or black or bloody stools Musculoskeletal ROS: negative for - joint pain OBJECTIVE: BP 138/92 Pulse 68 Resp 20 Wt 102.059 kg (225 lb) BMI 38.60 kg/m2 General: alert, cooperative, no distress Eyes: PERRLA, EOMI, Sclera and conjunctiva clear Ears: right TM red, dull, bulging, left TM red, dull, bulging Neck: range of motion is intact, no [...] grossly intact. ASSESSMENT: HTN (hypertension) - Plan: metoprolol tartrate IR (LOPRESSOR) 50 MG tablet Prediabetes Depressive disorder, not elsewhere classified Mixed hyperlipidemia Hypothyroidism Otitis media, bilateral PLAN: Orders Placed This Encounter ??? metoprolol tartrate IR (LOPRESSOR) 50 MG tablet Sig: Take 1 tablet by mouth 2 times daily. Dispense: 60 tablet Refill: 5 Take 1 pill in am and 0.5 pill in the evening. ??? azithromycin (ZITHROMAX) 500 MG tablet Sig: Take 1 tablet by mouth once daily. Dispense: 5 tablet Refill: 0 2 pills on day 1, 1 pill day 2-5 Increased her metoprolol today to 50 in the morning and 25 at night. Continue lisinopril 40 mg. followup in 3 months for hypertension. recommended to take Claritin 10 milligram q.day, since she is been having frequent ear infection, hoping that that would help any allergy component. further recommendation pending blood test results. Screenings Future Falls: Depression: PHQ-2:TOTAL POINT SCORE: 0 PHQ-9: documented in this encounter Plan of Treatment Upcoming Encounters Date Type Department Care Team (Late st Contact Info) Description 09/27/2024 2:20 PM FACILITY ATTENDANT Office Visit [facility] Neurosciences [address] [address] [place] [address] [address] 09/28/2024 1:00 PM FACILITY ATTENDANT Office Visit [facility] - [address] DePmoris Barrett, [address] [address] [place] [address] [address] documented as of this encounter Goals Goal Patient Goal Type Associated Problems Recent Progress Patient-Stated? Author Blood Pressure < 140/90 Blood Pressure 102/69(2022 11:30 AM FACILITY ATTENDANT) No Melinda Newsome Quit smoking / using tobacco Lifestyle No Melinda Newsome documented as of this encounter Visit Diagnoses Diagnosis HTN (hypertension)- Primary Unspecified essential hypertension Prediabetes Other abnormal glucose Depressive disorder, not elsewhere classified Mixed hyperlipidemia Hypothyroidism Unspecified hypothyroidism Otitis media, bilateral documented in this encounter Care Teams Admitting Office Escort Relationship Specialty Start Date End Date Sveta Rai MD PCP - General Internal Medicine 02/22/13 12/07/16 documented as of this encounter
--- OUTSIDE RECORDS SUMMARY | 2024-09-18 09:36 | XMS_ITS | Encounter Summary ---
Author Organization [facility] Address [address] [facility] [place] [address] Care Team Providers Care Tutoring Manager Name Role Phone Sveta Rai MD Primary Care Provider Reason for Visit * Reason Onset Date Comments MEDICATION REFILL 09/21/2013 Encounter Details Date Type Department Care Team (Late st Contact Info) Description 09/21/2013 Refill [facility] - Family Medicine [address] [place] [address] [phone] Sveta Rai MD [address] [place] [address] [address] MEDICATION REFILL Social History Tobacco Use Types [...] * Telephone Encounter - Melinda Newsome - 09/21/2013 11:54 AM CST Rx ordered NG COMPLIANCE AUDITOR documented in this encounter Plan of Treatment Upcoming Encounters Date Type Department Care Team (Late st Contact Info) Description 09/27/2024 2:20 PM CODING COMPLIANCE AUDITOR Office Visit [facility] Neurosciences [address] [facility] [address] [place] [phone] [place] [address] [facility] [address] [place] [phone] 09/28/2024 1:00 PM CODING COMPLIANCE AUDITOR Office Visit [facility] [place] [address] DePauping Barrett, [address] [address] [place] [address] [address] [address] documented as of this encounter Visit Diagnoses Not on filedocumented in this encounter Care Teams Tutoring Manager Relationship Specialty Start Date End Date Sveta Rai MD PCP - General Internal Medicine 02/22/13 12/07/16 documented as of this encounter
--- OUTSIDE RECORDS SUMMARY | 2024-09-18 09:36 | XMS_ITS | Encounter Summary ---
Author Organization [facility] Address [address] [place] [address] Care Team Providers Care Leather Tooler Name Role Phone Sveta Rai MD Primary Care Provider Reason for Visit * Reason Comments ER UC Follow-up side pain and nausea Encounter Details Date Type Department Care Team (Late Contact Info) Description 09/01/2013 2:30 PM SPECIAL DELIVERY MAIL CARRIER Office Visit [facility] - Family Medicine [address] [place] [address] Sveta Rai MD [address] [place] [address] DR NOONAN [address] [place] [phone] Nausea & vomiting (Primary Dx); Abdominal pain, RUQ (right upper quadrant); HTN (hypertension) Social History Tobacco Use Types Packs/Day Years [...] Sign Reading Time Taken Comments Blood Pressure 136/94 09/01/2013 3:16 PM SPECIAL DELIVERY MAIL CARRIER Pulse 76 09/01/2013 2:28 PM SPECIAL DELIVERY MAIL CARRIER Temperature - - Respiratory Rate 18 09/01/2013 2:28 PM SPECIAL DELIVERY MAIL CARRIER Oxygen Saturation - - Inhaled Oxygen Concentration - - Weight 98.9 kg (218 lb) 09/01/2013 2:28 PM SPECIAL DELIVERY MAIL CARRIER Height 162.6 cm (5' 4 ) 09/01/2013 2:28 PM SPECIAL DELIVERY MAIL CARRIER Body Mass Index 37.42 09/01/2013 2:28 PM SPECIAL DELIVERY MAIL CARRIER documented in this encounter Progress Notes * Sveta Terry MD - 09/01/2013 2:53 PM CST SUBJECTIVE: Lucretia Rodriguez is a 47 y.o. female with Chief Complaint Patient presents with ??? ER UC Follow-up side pain and nausea Past Medical History Diagnosis Date ??? Heart attack 2010 ??? HTN (hypertension) ??? Hyperlipemia ??? Multiple sclerosis 2005 ??? H/O heart artery stent [id number] LAD( ) [facility] ??? H/O laparoscopic adjustable gastric banding 2009 ??? S/P tonsillectomy ??? Migraine ??? Hypothyroid ??? Depressive disorder, not elsewhere classified ??? Generalized anxiety disorder History Social History ??? Marital Status: Spouse Name: N/A Number of Children: 2 ??? Years of Education: N/A Occupational History ??? [employer] Social History Main Topics ??? Smoking [...] attack ??? Hypercholesterolemia Mother ??? Hypertension Sister HPI:pt is here for f/u after ER visit on 08/26 . She is s/p laparoscopic cholecystectomy 08/10/13 still c/o upper abd pain that radiate to the R side for which she takes Elverta on average 3 times a day, still c/o Nausea but better than before since started taking Reglan.CT scan of abd and pelvis doneon 08/26 did not show any fluid collection, lipase was normal. Not c/o diarrhea any more, c diff that I checked last week was negative. tolerating food ok. Review of Systems: Per HPI General ROS: negative Respiratory ROS: no cough, shortness of breath, or wheezing Cardiovascular ROS: no chest pain or dyspnea on exertion Gastrointestinal ROS: positive for - abdominal pain and nausea. negative for - appetite loss, constipation or diarrhea OBJECTIVE: Wt Readings from Last 3 Encounters: 09/01/13 98.884 kg (218 lb) 08/29/13 96.616 kg (213 lb) 08/26/13 101.152 kg (223 lb) Temp Readings from Last 3 Encounters: 08/29/13 98.2 ??F Oral 08/26/13 98.2 ??F 08/23/13 98.1 ??F Oral BP Readings from Last 3 Encounters: 09/01/13 136/94 08/29/13 148/92 08/26/13 117/96 Pulse Readings from Last 3 Encounters: 09/01/13 76 08/29/13 68 08/26/13 68 General: alert, cooperative, no distress Head: NCAT w/o lesions or tenderness Eyes: PERRLA, EOMI, Sclera and conjunctiva clear Ears: bilateral TM's and external ear canals normal Nose: normal OP: Normal. Neck: range of motion is intact, no masses, thyroid not enlarged, no adenopathy, supple Heart: normal rate, regular rhythm, normal S1, S2, no murmurs, rubs, clicks or gallops Lungs: clear to auscultation bilaterally Abdomen: Soft, epigastric tenderness and to a lessor extent RUQ pain,non distended, +BS Back: symmetric, no curvature. ROM normal. No CVA tenderness. Extremities: no clubbing, cyanosis or edema Neuro: negative ASSESSMENT and PLAN: 1. Nausea & vomiting 2. Abdominal pain, RUQ (right upper quadrant) traMADol (ULTRAM) 50 MG tablet 3. HTN (hypertension) nausea could be related to narcotics so i would like her to stop Elverta and use ultram instead for pain, continue Reglan, and f/u next week with me. If symptome persist I will refer her to GI. IAL DELIVERY MAIL CARRIER documented in this encounter Plan of Treatment Upcoming Encounters Date Type Department Care Team (Late st Contact Info) Description 09/27/2024 2:20 PM SPECIAL DELIVERY MAIL CARRIER Office Visit [facility] Neurosciences [address] [facility] [address] [place] [phone] [place] [address] [facility] [address] [place] [phone] 09/28/2024 1:00 PM SPECIAL DELIVERY MAIL CARRIER Office Visit [facility] [place] [address] DePmoris Barrett, [address] [place] [address] [place] [address] [address] [facility] [address] [place] [address] documented as of this encounter Visit Diagnoses Diagnosis Nausea & vomiting- Primary Nausea with vomiting Abdominal pain, RUQ (right upper quadrant) Abdominal pain, right upper quadrant HTN (hypertension) Unspecified essential hypertension documented in this encounter Care Teams Leather Tooler Relationship Specialty Start Date End Date Sveta Rai MD PCP - General Internal Medicine 02/22/13 12/07/16 documented as of this encounter
--- OUTSIDE RECORDS SUMMARY | 2024-09-18 09:36 | XMS_ITS | Encounter Summary ---
Author Organization [facility] Address [address] [facility] [place] [address] Care Team Providers Care Solid Waste Disposal Manager Name Role Phone Sveta Rai MD Primary Care Provider Reason for Visit * Reason Onset Date Comments Forms 09/09/2013 Encounter Details Date Type Department Care Team (Late Contact Info) Description 09/09/2013 Telephone [facility] - Family Medicine [id number] [place] [address] Sveta Rai MD [address] [place] [address] DR NOONAN [address] [place] [address] [phone] Forms Social History Tobacco Use Types Packs/Day [...] encounter Miscellaneous Notes * Telephone Encounter - Marianna Zamarripa - 09/20/2013 10:25 AM CST Short Term Disability forms completed and faxed to . Patient notified. TER STATION OPERATOR * Telephone Encounter - AlejandroMarbellasoraya Wong - 09/13/2013 10:36 AM CST Pt is calling back regarding the status of her forms. Please call. TER STATION OPERATOR * Telephone Encounter - Rekha Newsome - 09/09/2013 4:24 PM CST Pt calling to check status of short term disability paperwork she dropped off several weeks a go. Please advise TER STATION OPERATOR documented in this encounter Plan of Treatment Upcoming Encounters Date Type Department Care Team (Late st Contact Info) Description 09/27/2024 2:20 PM BOOSTER STATION OPERATOR Office Visit [facility] Neurosciences [address] [phone] [place] [address] [phone] 09/28/2024 1:00 PM BOOSTER STATION OPERATOR Office Visit [facility] [place] [address] DePauping Barrett, [address] [address] [place] [id number] [place] [address] [address] documented as of this encounter Visit Diagnoses Not on filedocumented in this encounter Care Teams Solid Waste Disposal Manager Relationship Specialty Start Date End Date Sveta Rai MD PCP - General Internal Medicine 02/22/13 12/07/16 documented as of this encounter
--- OUTSIDE RECORDS SUMMARY | 2024-09-18 09:36 | XMS_ITS | Encounter Summary ---
Author Organization [facility] Address [address] [facility] [place] [address] Care Team Providers Care Hydrogenation Still Operator Name Role Phone Sveta Rai MD Primary Care Provider Reason for Referral * Evaluate & Treat - Closed Specialty Diagnoses / Procedures Referred By Ernesto barrios Referred To Contact Neurology Diagnoses MS (multiple sclerosis) ([facility]) Sveta Rai MD [address] [facility] [address] [place] [address] [place] [address] [address] Referral ID Status Reason Start Date Expiration Date V isits Requested Visits Authorized [id number] Closed Specialty Services Required 07/25/2014 01/21/2015 1 1 2 SYSTEMS PROGRAMMER Reason for Visit * Reason Comments Hypertension Hyperlipidemia Thyroid Problem Encounter Details Date Type Department Care Team (Late st Contact Info) Description 07/25/2014 2:00 PM DB2 SYSTEMS PROGRAMMER Office Visit [facility] - Family Medicine [address] [address] Sveta Rai MD [address] [facility] [address] [place] [address] HTN (hypertension) (Primary Dx); Prediabetes; Mixed hyperlipidemia; Need for prophylactic vaccination and inoculation against influenza; Hypothyroidism; MS (multiple sclerosis) (HCC) Social History Tobacco Use Types Packs/Day [...] Sign Reading Time Taken Comments Blood Pressure 110/72 07/25/2014 2:05 PM DB2 SYSTEMS PROGRAMMER Pulse 66 07/25/2014 2:05 PM DB2 SYSTEMS PROGRAMMER Temperature - - Respiratory Rate 18 07/25/2014 2:05 PM DB2 SYSTEMS PROGRAMMER Oxygen Saturation - - Inhaled Oxygen Concentration - - Weight 94.3 kg (208 lb) 07/25/2014 2:05 PM DB2 SYSTEMS PROGRAMMER Height 162.6 cm (5' 4.02 ) 07/25/2014 2:05 PM CS T Body Mass Index 35.69 07/25/2014 2:05 PM DB2 SYSTEMS PROGRAMMER documented in this encounter Patient Instructions * Patient Instructions* Melinda Newsome - 07/25/2014 2:05 PM DB2 SYSTEMS PROGRAMMER Caring for Your High Blood Pressure Healthy [...] Where can I go for more information? [place] Heart Association National Center: http://www.americanheart.org 1. In the top header, click ???Conditions?? . 2. In the top header, click ???high blood pressure.?? 3. For a printable blood pressure tracker, scroll toward the bottom of the page to Related Tools, and click ???HBP Trackers.?? 8-456-UBG-USA-1 or ( ) National Heart, Lung and Blood [place]: http://www.nhlbi.nih.gov/health/infoctr/index.htm Where can I go for support and more information? There are many ways to quit smoking. Some may work better for you than others. Your caregiver can help you find the best plan to quit. Smokefree.gov Phone: 2-167-WBDT-NOW ( ) www.smokefree.gov [place] Lung Association Phone: Phone: www.lung.org Instant Rewards [...] you to quit smoking. -Taken from www.smokefree.gov 2 SYSTEMS PROGRAMMER documented in this encounter Progress Notes * Sveta Rai MD - 07/25/2014 2:28 PM CST SUBJECTIVE: Lucretia Rodriguez is a 48 y.o. female with Chief Complaint Patient presents with ??? Hypertension ??? Hyperlipidemia ??? Thyroid Problem HPI: here to followup on hypertension, hyperlipidemia, hypothyroid and depression. -Blood pressure is stable on lisinopril 40. metoprol 50 a in a.m. and 25 in p.m. - hyperlipidemia, she is on Lipitor 20, this had blood test this morning results pending. - depression: Controlled with Celexa 20 mg. Denies any suicidal thoughts. - hypothyroid: on 88 mcg levothyroxine, TSH result pending. She is on 1000 IU vit d. She has multiple scleroses, has not seen the neurologist since she moved into [place] a year ago, used to be on medication. Has not had a flare up in a few years. Past Medical History Diagnosis Date ??? Heart attack 2010 ??? HTN (hypertension) ??? Hyperlipemia ??? Multiple sclerosis 2005 ??? H/O heart artery stent 2010 [id number] LAD( ) [facility] ??? H/O laparoscopic adjustable [...] no TIA or stroke symptoms OBJECTIVE: BP 110/72 Pulse 66 Resp 18 Wt 94.348 kg (208 lb) BMI 35.69 kg/m2 General: alert, cooperative, no distress Eyes: [...] 2-12 andsensation grossly intact. ASSESSMENT: HTN (hypertension) Prediabetes Mixed hyperlipidemia Need for prophylactic vaccination and inoculation against influenza - Plan: FLU VACCINE 3 DEN[place] 3YRS PLUS IM Hypothyroidism MS (multiple sclerosis) - Plan: AMB REFERRAL TO NEUROLOGY PLAN: Orders Placed This Encounter ??? FLU VACCINE 3 DENVER 3YRS PLUS IM ??? AMB REFERRAL TO NEUROLOGY Standing Status: Future Number of Occurrences: Standing Expiration Date: 07/25/2015 Referral Type: Evaluate & Treat Referral Reason: Specialty Services Required Referred to Provider: Simón Cox MD Requested Specialty: Neurology Number of Visits Requested: 1 Followup in 6 months, further recommendation pending blood test results. 2 SYSTEMS PROGRAMMER * Melinda Newsome - 07/25/2014 2:18 PM CST Lucretia Rodriguez received a influenza injection into the left deltoid with no reaction. 2 SYSTEMS PROGRAMMER documented in this encounter Plan of Treatment Upcoming Encounters Date Type Department Care Team (Late st Contact Info) Description 09/27/2024 2:20 PM DB2 SYSTEMS PROGRAMMER Office Visit [address] [phone] [place] [address] [facility] [address] [address] [place] [phone] 09/28/2024 1:00 PM DB2 SYSTEMS PROGRAMMER Office Visit [facility] - [address] [place] [address] [place] [address] [facility] [address] [place] [address] Scheduled Referrals Name Type Priority Associated Diagnoses Order Schedule AMB REFERRAL TO NEUROLOGY Outpatient Referral Routine MS (multiple sclerosis) (HCC) 1 Occurrences starting 07/25/2014 until 07/25/2015 documented as of this encounter Goals Goal Patient Goal Type Associated Problems Recent Progress Patient-Stated? Author Blood Pressure < 140/90 Blood Pressure 102/69(2022 11:30 AM DB2 SYSTEMS PROGRAMMER) No Melinda Newsome Quit smoking / using tobacco Lifestyle No Melinda Newsome documented as of this encounter Visit Diagnoses Diagnosis HTN (hypertension)- Primary Unspecified essential hypertension Prediabetes Other abnormal glucose Mixed hyperlipidemia Need for prophylactic vaccination and inoculation against influenza Hypothyroidism Unspecified hypothyroidism MS (multiple sclerosis) (HCC) Multiple sclerosis documented in this encounter Care Teams Hydrogenation Still Operator Relationship Specialty Start Date End Date Sveta Rai MD PCP - General Internal Medicine 02/22/13 12/07/16 documented as of this encounter
--- OUTSIDE RECORDS SUMMARY | 2024-09-18 09:37 | XMS_ITS | Encounter Summary ---
Author Organization [facility] Address [address] [place] [address] Care Team Providers Care Billposting Supervisor Name Role Phone Sveta Rai MD Primary Care Provider [phone] Reason for Visit * Auth/Cert - Closed Specialty Diagnoses / Procedures Referred By Ernesto barrios Referred To Contact Diagnoses Abdominal pain Referral ID Status Reason Start Date Expiration Date Visits Re quested Visits Authorized [id number] Closed 1 1 Encounter Details Date Type Department Care Team (Late st Contact Info) Description 08/10/2013 7:50 AM NURSING EDUCATION SPECIALIST Anesthesia Event [facility] - Perioperative Surgery [address] [place] [address] Dax Lebron, DO [address] [facility] [address] [place] [address] Enrrique Bardales Anesthesia Record Procedure Summary Procedure Name Responsible Anesthesiologist Anesthesia Start Time Anesthesia Stop Time LAPAROSCOPIC CHOLECYSTECTOMY (Abdomen) 08/10/13 0750 08/10/13 1032 Events Date Time Event Comment 08/10/2013 0659 0750 An Start 0750 An Start Data 0756 An Induction 0759 An Intubation 0957 Extubation 0957 an stop data 0957 Elect Sign The providers l isted as staff are the responsible providers for the case. 0957 ANPTO2 1032 An Stop Meds Name Total midazolam 1 mg/mL injection 2 mg fentaNYL injection 250 mcg lidocaine 2% injection 50 mg propofol (DIPRIVAN) injection 180 mg rocuronium 10 mg/ml injection 60 mg glycopyrrolate (ROBINUL) injection 0.6 m g ondansetron injection 4 mg ketorolac (TORADOL) 30 mg/ml injection 3 0 mg neostigmine (PROSTIGMIN) 1 mg/mL injecti on 3 mg dexamethasone (DECADRON) 4 mg/ml injecti on 4 mg ceFAZolin 2 g IVPB 2 g ePHEDrine 50 mg/mL injection 30 mg HYDROmorphone (DILAUDID) 1 mg/ml injecti on 1 mg lactated ringers infusion 1,500 mL * Agents Name Insp. N2O Exp. Sevoflurane O2 Insp. Sevoflurane * Blood No blood administrations on file. Lines, Drains, and Airways Type Details Placement Removal Peripheral IV Date: 08/10/13; Time : 0500; Orientation: Left; Placed By: CHARIS gordon; Tolerance: Moderate 08/10/13 0500 by Nuvia Silva RN 08/14/13 1138 by Roxanna Lawson APRN-JULISSA ETT Date: 08/10/13; Time : 0759; Placed By: VIOLETA Mcgowan; Vent: easy mask; Induction: Standard IV; Blade Type: Jj; Blade Size: 4; Laryngoscopy View: Grade 1 (full cords); Intubation Adjuncts: Stylet; Tube: Endotracheal Tube; Placement: Oral; Tube Type: Cuffed-inflated; Tube Size(mm): 7 MM; Depth of Insertion: 22 CM; Measured From: teeth; Cuff Infated: Air; Cuff Vol(mL): 7 mL; Verified By: Direct visualization, Bilateral breath sounds, Chest Auscultation, CO2 Monitor 08/10/13 0759 by Dariana Burch APRN-CRNA 08/10/13 0957 by Dariana Burch APRN-CRNA RETIRED Procedural Site 08/10/13; 0833; Midline; Abdomen; Laparoscopic; 08/14/13; 1931 08/10/13 0833 by Ca Talbert RN 08/14/13 193 by Generic, Auto Release documented in this encounter Social History Tobacco [...] AM CDT documented as of this encounter Progress Notes * Renetta Doll CRNA - 08/10/2013 10:31 AM CST ANESTHESIA POSTPROCEDURE EVALUATION Lucretia Rodriguez is a 47 y.o. female Temp: 36.7 ??C Pulse: 75 Resp: 18 BP: 158/80 mmHg SpO2: 93 % Pain Rating Score #: 8 Mental status: sufficiently recovered from acute administration of anesthesia to participate in theevaluation. Level of consciousness: awake No numbness, tingling or visual disturbances present. General appearance: well-appearing Respiratory function: natural airway. Cardiac: stable Pain: comfortable/acceptable PONV: None Postop hydration: adequate. Final anesthesia type: general endotracheal Patient may be released from anesthesia care. ING EDUCATION SPECIALIST documented in this encounter Consult Notes * Dax Lebron DO - 08/10/2013 6:58 AM CST Pre-anesthesia Evaluation Procedure(s) (LRB): LAPAROSCOPIC CHOLECYSTECTOMY () Vital Signs: Temp: [36.5 ??C-36.7 ??C] Pulse: [48-61] Resp: [18] BP: (126-150)/(72-89) SpO2: [93 %-94 %] BMI: Estimated Body mass index is 40.21 kg/(m^2) as calculated from the following: Height as of 08/07/13: 5' 3 (1.6 m). Weight as of 08/07/13: 227 lb(102.967 kg). History: Past Medical History Diagnosis Date ??? Heart attack 2010 ??? HTN (hypertension) ??? Hyperlipemia ??? Multiple sclerosis 2006 ??? H/O heart artery stent x1 ??? H/O laparoscopic adjustable gastric banding 2009 ??? S/P tonsillectomy ??? Migraine ??? Hypothyroid ??? Depressive disorder, not elsewhere classified ??? Generalized anxiety disorder Past Surgical History Procedure Date ??? Coronary stent placement ??? Tonsillectomy ??? Sys lap band 10.0 ??? Tubal ligation, laparoscopic reports that she has been smoking Cigarettes. She has a 15 pack-year smoking history. She has neverused smokeless tobacco. She reports that she does not drink alcohol or use illicit drugs. Allergies: is allergic to sulfa drugs and latex. Medications: Prescriptions prior to admission Medication Status Sig Dispense Refill ??? lisinopril (PRINIVIL; ZESTRIL) [...] as needed for Angina. 100 Tab 3 No current facility-administered medications for this visit. No current outpatient prescriptions on file. Facility-Administered Medications Ordered in Other Visits: 0.9% NaCl injection 1-10 mL, Active, 1-10 mL, Intracatheter, PRN, Dana Zimmer DO; iohexol (OMNIPAQUE 350) contrast, , , Intravenous, Contrast - Once, Dana Zimmer DO, 80 mL at 08/07/13 1442; metoprolol tartrate IR (LOPRESSOR) tablet 25 mg, Active, 25 mg, Oral, BID, Marjan Topete PA-C, 25 mg at 08/10/13 0531 HYDROmorphone (DILAUDID) injection 0.5 mg, Active, 0.5 mg, Intravenous, q4h PRN, Dana Zimmer DO,0.5 mg at 08/10/13 0523; ondansetron (ZOFRAN) injection 4 mg, Active, 4 mg, Intravenous, q4h PRN, Dana Zimmer DO, 4 mg at 08/09/13 1947; 0.9% NaCl infusion, Active, , Intravenous, Continuous, Dana Zimmer DO, Last Rate: 75 mL/hr at 08/09/13 1929 levothyroxine (SYNTHROID) tablet 88 mcg, Active, 88 mcg, Oral, QDAY BEFORE BREAKFAST, Marjan Topete PA-C; lisinopril (PRINIVIL; ZESTRIL) tablet 40 mg, Active, 40 mg, Oral, QDAY, Marjan Topete PA-C, 40 mg at 08/09/13 0842; nitroglycerin (NITROSTAT) tablet 0.4 mg, Active, 0.4 mg, Sublingual, q5 min PRN, Marjan Topete PA-C; aspirin tablet 325 mg, Active, 325 mg, Oral, QDAY, Marjan Topete PA-C, 325 mg at 08/07/132027 Physical Exam: NPO status: since midnight Oriented to person, place and time Airway: II Neck ROM: full Dental exam findings: normal/ok Pulmonary exam: breath sounds CTA Heart sounds: S1 S2 Negative for anesthesia complications Poor exercise tolerance Reviewed labs Plan for Anesthesia: ASA Score: 3. Anesthesia plan: general Planned method of induction: intravenous Planned postop destination: PACU Anesthesia plan, risks and benefits discussed with patient Anesthesia consent: obtained Plan accepted yes ING EDUCATION SPECIALIST documented in this encounter Plan of Treatment Upcoming Encounters Date Type Department Care Team (Late st Contact Info) Description 09/27/2024 2:20 PM NURSING EDUCATION SPECIALIST Office Visit [facility] [address] [facility] [address] [place] [phone] [place] [address] [facility] JUAN ALBERTO [address] [place] [phone] 09/28/2024 1:00 PM NURSING EDUCATION SPECIALIST Office [place] [facility] [place] [address] [place] [address] [place] [address] [place] [address] documented as of this encounter Visit Diagnoses Not on filedocumented in this encounter Administered Medications Inactive Administered Medications - up to 3 most recent administrations Medication Order MAR Action Action Date Dose Rate Site ceFAZolin (ANCEF) IVPB PRN, Starting on Thu08/10/13 at 0800, Until Thu08/10/13 at 1032, Store at room temperature, Anesthesia Intra-op $ Given 08/10/2013 8:00 AM NURSING EDUCATION SPECIALIST 2 g dexamethasone (DECADRON) injection PRN, Nausea/Vomiting, Starting on Thu08/10/13 at 0803, Until Thu08/10/13 at 1032, Anesthesia Intra-op $ Given 08/10/2013 8:03 AM NURSING EDUCATION SPECIALIST 4 mg ePHEDrine injection PRN, Starting on Thu08/10/13 at 0820, Until Thu08/10/13 at 1032, Anesthesia Intra-op $ Given 08/10/2013 8:25 AM NURSING EDUCATION SPECIALIST 10 mg $ Given 08/10/2013 8:20 AM NURSING EDUCATION SPECIALIST 10 mg $ Given 08/10/2013 8:10 AM NURSING EDUCATION SPECIALIST 10 mg fentaNYL (SUBLIMAZE) injection PRN, Starting on Thu08/10/13 at 0754, Until Thu08/10/13 at 1032, Anesthesia Intra-op $ Given 08/10/2013 9:17 AM NURSING EDUCATION SPECIALIST 50 mcg $ Given 08/10/2013 8:51 AM NURSING EDUCATION SPECIALIST 50 mcg $ Given 08/10/2013 8:29 AM NURSING EDUCATION SPECIALIST 50 mcg glycopyrrolate (ROBINUL) injection PRN, Starting on Thu08/10/13 at 0810, Until Thu08/10/13 at 1032, Anesthesia Intra-op $ Given 08/10/2013 9:46 AM NURSING EDUCATION SPECIALIST 0.4 mg $ Given 08/10/2013 8:10 AM NURSING EDUCATION SPECIALIST 0.2 mg HYDROmorphone (DILAUDID) injection PRN, Starting on Thu08/10/13 at 0945, Until Thu08/10/13 at 1032, Anesthesia Intra-op $ Given 08/10/2013 9:56 AM NURSING EDUCATION SPECIALIST 0.5 mg $ Given 08/10/2013 9:45 AM NURSING EDUCATION SPECIALIST 0.5 mg ketorolac (TORADOL) injection PRN, Starting on Thu08/10/13 at 0945, Until Thu08/10/13 at 1032, . WASTE DISPOSAL INSTRUCTIONS: Black Bin Disposal required., Anesthesia Intra-op $ Given 08/10/2013 9:45 AM NURSING EDUCATION SPECIALIST 30 mg lactated ringers infusion CONTINUOUS PRN, Starting on Thu08/10/13 at 0805, Until Thu08/10/13 at 1032, Anesthesia Intra-op $ New Bag/Syringe 08/10/2013 8:05 AM NURSING EDUCATION SPECIALIST mL lidocaine (XYLOCAINE) 2 % injection PRN, Starting on Thu08/10/13 at 0756, Until Thu08/10/13 at 1032, Anesthesia Intra-op $ Given 08/10/2013 7:56 AM NURSING EDUCATION SPECIALIST 50 mg midazolam (VERSED) injection PRN, Starting on Thu08/10/13 at 0750, Until Thu08/10/13 at 1032, Anesthesia Intra-op $ Given 08/10/2013 7:50 AM NURSING EDUCATION SPECIALIST 2 mg neostigmine (PROSTIGMIN) injection PRN, Starting on Thu08/10/13 at 0946, Until Thu08/10/13 at 1032, Anesthesia Intra-op $ Given 08/10/2013 9:46 AM NURSING EDUCATION SPECIALIST 3 mg ondansetron (ZOFRAN) injection PRN, Nausea/Vomiting, Starting on Thu08/10/13 at 0946, Until Thu08/10/13 at 1032, Anesthesia Intra-op $ Given 08/10/2013 9:46 AM NURSING EDUCATION SPECIALIST 4 mg propofol (DIPRIVAN) injection PRN, Starting on Thu08/10/13 at 0756, Until Thu08/10/13 at 1032, Anesthesia Intra-op $ Given 08/10/2013 7:56 AM NURSING EDUCATION SPECIALIST 180 mg rocuronium (ZEMURON) injection PRN, Starting on Thu08/10/13 at 0756, Until Thu08/10/13 at 1032, Anesthesia Intra-op $ Given 08/10/2013 8:51 AM NURSING EDUCATION SPECIALIST 10 mg $ Given 08/10/2013 8:29 AM NURSING EDUCATION SPECIALIST 10 mg $ Given 08/10/2013 7:56 AM NURSING EDUCATION SPECIALIST 40 mg documented in this encounter Care Teams Billposting Supervisor Relationship Specialty Start Date End Date Sveta Rai MD PCP - General Internal Medicine 02/22/13 12/07/16 documented as of this encounter
--- OUTSIDE RECORDS SUMMARY | 2024-09-18 09:37 | XMS_ITS | Encounter Summary ---
Author Organization [facility] Address [address] [facility] [place] [address] Care Team Providers Care Order Checker Packer Processer Name Role Phone Sveta Rai MD Primary Care Provider Reason for Referral * - Closed Specialty Diagnoses / Procedures Referred By Contac t Referred To Contact Diagnoses Multiple sclerosis (HCC) Sveta Rai MD [address] [facility] [address] [place] [address] [place] [address] [place] [address] Referral ID Status Reason Start Date Expiration Date V isits Requested Visits Authorized [id number] Closed Specialty Services Required 02/22/2013 08/21/2013 1 1 * Evaluate & Treat - Closed Specialty Diagnoses / Procedures Referred By Contac t Referred To Contact Diagnoses Skin lesions, generalized Sveta Rai MD [address] [facility] [address] [place] [address] [place] Kurt[place] [address] [facility] [address] [place] [address] Referral ID Status Reason Start Date Expiration Date V isits Requested Visits Authorized [id number] Closed Specialty Services Required 02/22/2013 08/21/2013 3 3 Reason for Visit * Reason Comments Establish Care Encounter Details Date Type Department Care Team (Late st Contact Info) Description 02/22/2013 1:15 PM CDT Office Visit [facility] [address] [place] [address] [address] [place] [address] Sveta Rai MD [address] [place] [address] [address] [place] [id number] HTN (hypertension) (Primary Dx); Multiple sclerosis (HCC); Mixed hyperlipidemia; Prediabetes; Skin lesions, generalized; Hypothyroidism; Morbid obesity (HCC) Social History Tobacco Use Types Packs/Day [...] Sign Reading Time Taken Comments Blood Pressure 146/84 02/22/2013 1:07 PM CDT Pulse 68 02/22/2013 1:07 PM CDT Temperature 37.1 ??C (98.7 ??F) 02/22/2013 1:07 PM CD T Respiratory Rate 18 02/22/2013 1:07 PM CDT Oxygen Saturation - - Inhaled Oxygen Concentration - - Weight 104.8 kg (231 lb) 02/22/2013 1:07 PM CDT Height 161.3 cm (5' 3.5 ) 02/22/2013 1:07 PM CDT Body Mass Index 40.28 02/22/2013 1:07 PM CDT documented in this encounter Progress Notes * Melinda Newsome - 02/25/2013 4:09 PM CDTQuick Note: Letter and reading material was sent * Sveta Terry MD - 02/25/2013 3:59 PM CDTQusarah Note: High cholesterol and prediabetes. Please follow diet and exercise, rest of labs are normal.follow up as scheduled. * Sveta Terry MD - 02/22/2013 1:21 PM CDT SUBJECTIVE: Lucretia Rodriguez is a 47 y.o. female here for the first time today. H/o MS was on copaxon, but been out for 10 months. Have not had relapse since diagnosis in 2005 Past Medical History Diagnosis Date ??? Heart attack 2010 ??? HTN (hypertension) ??? Hyperlipemia ??? Multiple sclerosis 2005 ??? H/O heart artery stent ??? H/O laparoscopic adjustable gastric banding 2009 ??? S/P tonsillectomy ??? Migraine ??? Hypothyroid Past Surgical History Procedure Date ??? Coronary stent placement ??? Tonsillectomy ??? Sys lap band 10.0 ??? Tubal ligation, laparoscopic Allergies Allergen Reactions ??? Sulfa Drugs ??? Latex No current outpatient prescriptions on file prior to visit. History Social History ??? Marital Status: Unknown Spouse Name: N/A Number of Children: 2 ??? Years of Education: N/A Occupational History ??? [employer] Social History Main Topics ??? Smoking status: Current Everyday Smoker -- 0.5 packs/day for 30 years Types: Cigarettes ??? [...] attack ??? Hypercholesterolemia Mother ??? Hypertension Sister Review of Systems - General ROS: positive for - hot flashes and sleep disturbance negative for - chills, fatigue or fever Psychological ROS: positive for - h/o depression and anxiety. Used to be on celexa. Right now she is good. negative for - suicidal ideation Ophthalmic ROS: just had exam eye exam and was good. ENT ROS: negative Respiratory ROS: no cough, shortness of breath, or wheezing Cardiovascular ROS: no chest pain or dyspnea on exertion. Occasional swelling in the feet. Gastrointestinal ROS: no abdominal pain, change in bowel habits, or black or bloody stools Genito-Urinary ROS: no dysuria, trouble voiding, or hematuria Musculoskeletal ROS: positive for - pain in the left knee. Neurological ROS: no TIA or stroke symptoms. Has MS in remission. Dermatological ROS: moles on the R randall wants them to be checked. This is a 47 y.o. year old, female OBJECTIVE: BP 146/84 Pulse 68 Temp 98.7 ??F (Oral) Resp 18 Wt 104.781 kg (231 lb) BMI 40.28 kg/m2 Vitals: 02/22/13 1307 BP: 146/84 Pulse: 68 Temp: 98.7 ??F Resp: 18 Weight: 104.781 kg (231 lb) Body mass index is 40.28 kg/(m^2). CrCl is unknown because no creatinine reading has been taken. General: Awake, alert, NAD. Normal affect. Obese. SHEENT: Skin is warm and dry. TM's are unremarkable. Pharynx is clear. Neck is supple. Nasal mucosais unremarkable. PERRLA. EOMI. Skin tags a lot of them. Keratosis lesion under R arm needs to be looked at, and another one over the left arm. Heart: Regular rate and rhythm. No carotid bruits or thrills. Normal S1S2. No murmurs. Lungs: Clear to auscultation bilaterally. No wheezes, rhonchi or rales. Abdomen: Soft. Nontender. No masses palpated. Normal bowel sounds. No hepatosplenomegaly. Extremities: No cyanosis, clubbing or edema. Neuro: CN II - XII grossly intact. DTR 2/4. Strenght 5/5 Musculoskeletal: Grossly normal ASSESSMENT and PLAN: 1. HTN (hypertension) metoprolol tartrate IR (LOPRESSOR) 25 MG tablet, GENERAL HEALTH PANEL, lisinopril (PRINIVIL; ZESTRIL) 10 MG tablet. That is increased dose from 5 mg. 2. Multiple sclerosis amantadine (SYMMETREL) 100 MG capsule, AMB REFERRAL TO NEUROLOGY 3. Mixed hyperlipidemia atorvastatin (LIPITOR) 40 MG tablet, LIPID PROFILE 4. Prediabetes HEMOGLOBIN A1C 5. Skin lesions, generalized AMB REFERRAL TO DERMATOLOGY 6. Hypothyroidism levothyroxine (TIROSINT) 88 MCG capsule 7. Morbid obesity Counseled about weight loss. F/u in 2 months. documented in this encounter Plan of Treatment Upcoming Encounters Date Type Department Care Team (Late st Contact Info) Description 09/27/2024 2:20 PM PHLEBOTOMIST ASSOCIATE Office Visit [facility] [address] [facility] [address] [place] [phone] [place] [address] [facility] [address] [place] [address] 09/28/2024 1:00 PM PHLEBOTOMIST ASSOCIATE Office Visit [facility] [place] [address] DePmor[address] Barrett, [address] [address] [place] [address] [address] [facility] [address] [place] [address] Scheduled Referrals Name Type Priority Associated Diagnoses Orde r Schedule AMB REFERRAL TO DERMATOLOGY Outpatient Referral Routine Skin lesions, generalized Ordered: 02/22/2013 AMB REFERRAL TO NEUROLOGY Outpatient Referral Routine Multiple sclerosis (HCC) Ordered: 02/22/2013 documented as of this encounter Procedures Procedure Name Priority Date/Time Associated Diagnosis Comments GENERAL HEALTH PANEL Routine 02/22/2013 2:26 PM CDT HTN (hypertension) HEMOGLOBIN A1C Routine 02/22/2013 2:26 PM CDT Prediabetes LIPID PROFILE Routine 02/22/2013 2:26 PM CDT Mixed hyperlipidemia documented in this encounter Results * (ABNORMAL) HEMOGLOBIN A1C (02/22/2013 2:26 PM CDT) Hemoglobin A1c 6.1(H) 4.8 - 5.6 % [facility] ACCOUNT BILL Comment: ? . ? Increased risk for diabetes: 5.7 - 6.4 ? Diabetes: >6.4 ? Glycemic control for adults with diabetes: <7.0 Whole blood specimen (specimen) BLOOD SPECIMEN / Unknown 02/22/2013 2:26 PM CDT 02/22/2013 7:19 PM CDT Narrative Resulting Agency Comment [facility] ??[facility] [phone] Sveta Gross MD LAB - CHEMISTRY ORD WorlizeBLES Performing Organization Address [facility]/State/ZIP Co de Phone Number [facility] ACCOUNT BILL * (ABNORMAL) LIPID PROFILE (02/22/2013 2:26 PM CDT) Cholesterol 239(H) 100 - 199 mg/dL [facility] ACCOUNT BILL Triglycerides 233(H) 0 - 149 mg/dL [facility] ACCOUNT BILL HDL Cholesterol 39(L) >39 mg/dL [facility] ACCOUNT BILL Comment: According to ATP-III Guidelines, HDL-C >59 mg/dL is considered a negative risk factor for CHD. VLDL Calculated 47(H) 5 - 40 mg/dL [facility] ACCOUNT BILL LDL Calculated 153(H) 0 - 99 mg/dL [facility] ACCOUNT BILL Comment NOT NEEDED [facility] ACCOUNT BILL Comment:Ancillary determined the test is not needed Blood specimen (specimen) BLOOD SPECIMEN / Unknown 02/22/2013 2:26 PM CDT 02/22/2013 7:19 PM CDT Narrative Resulting Agency Comment [facility] [place] [id number] ??[facility] [phone] Sveta Gross MD LAB - CHEMISTRY ORD ERABLES [facility] ACCOUNT BILL * (ABNORMAL) GENERAL HEALTH PANEL (02/22/2013 2:26 PM CDT) Glucose 80 65 - 99 mg/dL [facility] ACCOUNT BILL BUN 15 6 - 24 mg/dL [facility] ACCOUNT BILL Creatinine 0.77 0.57 - 1.00 mg/dL [facility] ACCOUNT BILL eGFR by MDRD 92 >59 mL/min/1. 73 [facility] ACCOUNT BILL eGFR by MDRD 106 >59 mL/min/1. 73 [facility] ACCOUNT BILL BUN/Creatinine Ratio 19 9 - 23 [facility] ACCOUNT BILL Sodium 140 134 - 144 mmol/L [facility] ACCOUNT BILL Potassium 3.8 3.5 - 5.2 mmol/L [facility] ACCOUNT BILL Chloride 104 97 - 108 mmol/L [facility] ACCOUNT BILL CO2 16(L) 19 - 28 mmol/L [facility] ACCOUNT BILL Comment:Please note refere nce interval change Calcium 9.8 8.7 - 10.2 mg/dL [facility] ACCOUNT BILL Protein Total 7.3 6.0 - 8.5 g/dL [facility] ACCOUNT BILL Albumin 4.8 3.5 - 5.5 g/dL [facility] ACCOUNT BILL Globulin Total 2.5 1.5 - 4.5 g/dL [facility] ACCOUNT BILL Albumin/Globulin Ratio 1.9 1.1 - 2.5 [facility] ACCOUNT BILL Bilirubin Total 0.4 0.0 - 1.2 mg/dL [facility] ACCOUNT BILL Alkaline Phosphatase 55 25 - 150 IU/L [facility] ACCOUNT BILL AST 23 0 - 40 IU/L [facility] ACCOUNT BILL ALT 24 0 - 32 IU/L [facility] ACCOUNT BILL TSH 1.360 0.450 - 4.500 uIU/mL [facility] ACCOUNT BILL WBC 7.1 4.0 - 10.5 x10E3/uL [facility] ACCOUNT BILL RBC 5.22 3.77 - 5.28 x10E6/uL [facility] ACCOUNT BILL Hemoglobin 14.9 11.1 - 15.9 g/dL [facility] ACCOUNT BILL Hematocrit 43.7 34.0 - 46.6 % [facility] ACCOUNT BILL MCV 84 79 - 97 fL [facility] ACCOUNT BILL MCH 28.5 26.6 - 33.0 pg [facility] ACCOUNT BILL MCHC 34.1 31.5 - 35.7 g/dL [facility] ACCOUNT BILL RDW 14.2 12.3 - 15.4 % [facility] ACCOUNT BILL Platelet Count 230 140 - 415 x10E3/uL [facility] ACCOUNT BILL Granulocytes % 46 40 - 74 % [facility] ACCOUNT BILL Lymphocytes % 43 14 - 46 % [facility] ACCOUNT BILL Monocytes % 7 4 - 13 % [facility] ACCOUNT BILL Eosinophils % 3 0 - 7 % [facility] ACCOUNT BILL Basophils % 1 0 - 3 % [facility] ACCOUNT BILL Immature Cells NOT NEEDED [facility] ACCOUNT BILL Comment:Ancillary determined the test is not needed Granulocytes Absolute 3.3 1.8 - 7.8 x10E3/uL [facility] ACCOUNT BILL Lymphocytes Absolute 3.0 0.7 - 4.5 x10E3/uL [facility] ACCOUNT BILL Monocytes Absolute 0.5 0.1 - 1.0 x10E3/uL [facility] ACCOUNT BILL Eosinophils Absolute 0.2 [...] is not needed BLOOD SPECIMEN / Unknown 02/22/2013 2:26 PM CDT 02/22/2013 7:19 PM CDT Narrative Resulting Agency Comment [facility] [address] ??[facility] [phone] Sveta Gross MD LAB - CHEMISTRY ORD ERABLES [facility] ACCOUNT BILL documented in this encounter Visit Diagnoses Diagnosis HTN (hypertension)- Primary Unspecified essential hypertension Multiple sclerosis (HCC) Multiple sclerosis Mixed hyperlipidemia Prediabetes Other abnormal glucose Skin lesions, generalized Unspecified disorder of skin and subcutaneous tissue Hypothyroidism Unspecified hypothyroidism Morbid obesity (HCC) Morbid obesity documented in this encounter Care Teams Order Checker Packer Processer Relationship Specialty Start Date End Date Sveta Rai MD PCP - General Internal Medicine 02/22/13 12/07/16 documented as of this encounter
--- OUTSIDE RECORDS SUMMARY | 2024-09-18 09:37 | XMS_ITS | Encounter Summary ---
Author Organization [facility] Address [address] [place] [address] Care Team Providers Care Weigher Production Name Role Phone Sveta Rai MD Primary Care Provider [phone] Reason for Visit * Reason Comments Liver Problem states was recently admitted to hospital and was told my liver enzymes are high co nausea and abd pain and brown urine * Auth/Cert - Closed Specialty Diagnoses / Procedures Referred By Ernesto barrios Referred To Contact Diagnoses Abdominal pain Referral ID Status Reason Start Date Expiration Date Visits Re quested Visits Authorized [id number] Closed 1 1 Encounter Details Date Type Department Care Team (Late st Contact Info) Description 08/12/2013 11:00 AM SPINNING LATHE OPERATOR [employer]OMATIC - 08/12/2013 11:40 AM SPINNING LATHE OPERATOR [employer]OMATIC Surgery [facility] End[facility] [address] [place], [place] [id number] [place] [id number] [facility] [address] [phone] ERCP Surgery Details Date/Time Status Location OR Service Patient Class Case Class Case Type Trauma Case? 08/12/2013 11:00 AM Posted [facility] ENDO ENDO 05 / Travel Gastroenterology Inpatient Elective > 5 days Panel 1 Procedure LRB Anes Op Region Wound Class Comments ERCP MAC Clean Contaminated Surgeon Surgeon Role Service Panel Mark Rose MD Primary Gastroenterology 1 Special Needs ROOM 518 SET UP WITH JIMMY documented in this encounter Social History Tobacco Use Types Packs/Day Years Used Date Smoking Tobacco: Every Day Cigarettes 0.5 30 Smokeless Tobacco: Never Tobacco Cessation:Ready to Q [...] Sign Reading Time Taken Comments Blood Pressure 157/84 08/14/2013 4:27 AM SPINNING LATHE OPERATOR [employer]OMATIC Pulse 81 08/14/2013 4:27 AM SPINNING LATHE OPERATOR [employer]OMATIC Temperature 37.1 ??C (98.7 ??F) 08/14/2013 4:27 AM CS T Respiratory Rate 16 08/14/2013 4:27 AM SPINNING LATHE OPERATOR [employer]OMATIC Oxygen Saturation 97% 08/14/2013 4:27 AM SPINNING LATHE OPERATOR [employer]OMATIC Inhaled Oxygen Concentration - - Weight 103 kg (227 lb) 08/07/2013 12:13 PM SPINNING LATHE OPERATOR [employer]OMATIC Height 160 cm (5' 3 ) 08/07/2013 12:13 PM SPINNING LATHE OPERATOR [employer]OMATIC Body Mass Index 40.21 08/07/2013 12:13 PM SPINNING LATHE OPERATOR [employer]OMATIC documented in this encounter Discharge Summaries * Chacha Christina MD - 08/14/2013 3:41 PM CST Physician Discharge Summary Patient Name: Pool Rodriguez Date of : 1965 Admit date: 08/07/2013 Discharge date: 08/14/2013 Admitting Physician: Vasyl Lyon MD Attending Physician: Vasyl Lyon MD Discharge Physician: Chacha Christina MD Discharge Diagnosis 1.Acute cholecsysitits 2. HTN 3. Hypothyroidism 4. H/o CAD, [place] Admission Diagnoses Patient Active Problem List Diagnosis ??? HTN (hypertension) ??? Depressive disorder, not elsewhere classified ??? Prediabetes ??? Mixed hyperlipidemia ??? Hypothyroidism ??? Acute liver disease ??? Abdominal pain Diagnostic Studies See hospital course Treatments See hospital course Procedures See hospital course Consults General surgery GI Subjective : pt has no CP, SOB, N, V , D , abd pain Had a BM Patient Vitals for the past 24 hrs: Temp Pulse Resp BP 08/14/13 0427 98.7 ??F 81 16 157/84 mmHg 08/13/13 1946 98.4 ??F 58 18 169/87 mmHg Component Name 08/11/13 0423 08/10/13 0424 08/09/13 043 WBC 8.1 4.9 4.6 HGB 12.6 14.0 14.1 HCT 38.0 41.8 42.0 PLTCOUNT 195 217 215 Component Name 08/14/13 0622 08/13/13 0502 08/11/13422 SODIUM 140 142 139 POTASSIUM 3.6 3.6 3.9 CHLORIDE 108* 108* 107 CO2 25 27 28 BUN 9 8 9 CREATININE 0.52 0.52 0.63 GLUCOSE 105 86 87 CALCIUM 8.5 8.5 8.2* Exam General appearance: alert, cooperative. No distress Heart: regular rhythm, normal S1 and S2, Lungs: breath sounds normal BL Abdomen: soft without mass,with normal bowel sounds Extremities: no clubbing, cyanosis or edema Neuro: Normal. No focal deficits Hospital Course 1. Acute cholecsysitits -RUQ pain, elevated LFTs, mild gallbladder distention on CT -abdominal u/s with distended GB -GI/ Surg consulted. Now s/p CCK s/p ERCP per GI 2. Elevated LFTs -probably related to cholecystitis -GI consulted -Improving - F Actin Ab/ SONJA +ve. Autoimmune liver disease?? Will need to repeat these in 2-3 weeks. Viral Hep profile neg 3. HTN -BP stable 4. Hypothyroidism -continue Tirosint 5. H/o CAD, [place] Continue BB and home meds, ASA 6. Constipation : Started on bowel regimen , resolved DVT ppx- SCDs Condition at discharge: stable Disposition: Home Code Status At Discharge Full Code Patient Instructions Discharge Medication List As of 08/14/2013 10:56 AM START taking these medications Instructions Authorizing Provider hydrocodone-acetaminophen 5-325 MG tablet Commonly known as: NORCO Take 1-2 Tabs by mouth every 4 hours as needed. Chacha Christina CONTINUE taking these medications Instructions Authorizing Provider aspirin 325 MG tablet Take 325 mg by mouth once daily. B-COMPLEX/B-12 PO Take 1,000 mcg by mouth. levothyroxine 88 MCG capsule Commonly known as: TIROSINT Take 1 Cap by mouth daily before breakfast. Sveta Terry lisinopril 40 MG tablet Commonly known as: PRINIVIL; ZESTRIL Take 40 mg by mouth once daily. metoprolol tartrate IR 25 MG tablet Commonly known as: LOPRESSOR Take 1 Tab by mouth 2 times daily. Sveta Terry nitroglycerin 0.4 MG tablet Commonly known as: NITROSTAT Dissolve 1 Tab under the tongue every 5 minutes as needed for Angina. Sveta Terry ondansetron (disintegrating) 4 MG tablet Commonly known as: ZOFRAN ODT Take 4 mg by mouth every 6 hours as needed. Allow tablet to dissolve on the tongue Indications: nausea vitamin D 1000 UNIT capsule Take 2,000 Units by mouth once daily. Discharge Procedure Orders CARDIAC DIET AT HOME 2 gram sodium, low fat NO ACTIVITY RESTRICTIONS AT DISCHARGE CALL PHYSICIAN if temperature is greater than 100.4 CALL PHYSICIAN if you experience increasing or unrelieved pain CALL PHYSICIAN If nausea, vomiting or fever,chills return to ER PATIENT TO CALL PHYSICIAN FOR APPOINTMENT Follow up with primary care physician-Sveta Terry in 1 week. Follow up with - heading saw operator (stomach doctor) in 2 weeks, call [phone] for appointment. Follow up with - surgeon in 2 weeks, call [phone] for appointment. CBC and CMP in 1 week. Call office to schedule appointment(s). Bring all medications to next visit. Total time spent was greater than 30 minutes to review medications and place discharge orders/instructions and explain the discharge plan D/c summary note was faxed to PCP via the [employer] system CC: Sveta Terry NING LATHE OPERATOR [employer]OMATIC documented in this encounter Discharge Instructions * Discharge Instructions* Roxanna Lawson RN - 08/14/2013 10:56 AM SPINNING LATHE OPERATOR [employer]OMATIC If you have any questions regarding your home medications/prescriptions, please contact your primary physician. Discharge Procedure Orders CARDIAC DIET AT HOME 2 gram sodium, low fat NO ACTIVITY RESTRICTIONS AT DISCHARGE CALL PHYSICIAN if temperature is greater than 100.4 CALL PHYSICIAN if you experience increasing or unrelieved pain CALL PHYSICIAN If nausea, vomiting or fever,chills return to ER PATIENT TO CALL PHYSICIAN FOR APPOINTMENT Follow up with primary care physician-Sveta Terry in 1 week. Follow up with - heading saw operator (stomach doctor) in 2 weeks, call [phone] for appointment. Follow up with - surgeon in 2 weeks, call [phone] for appointment. CBC and CMP in 1 week. Call office to schedule appointment(s). Bring all medications to next visit. Please avoid smoking and second hand smoke. The following belongings have been returned to you: Clothing: None Jewelry: None Dentures/Retainers: None Visual Aids: Yes, Glasses: Secured Hearing Aids: None Equipment with Patient: None, Equipment At Home: None Home Medications: None Monetary Items: Yes, With Patient: Purse;Wallet .WEIGHT MONITORING - If you have heart failure, weigh yourself every morning. Contact your physician if your weight increases by 3 pounds in 1 day OR 5 pounds in 1 week. WHAT TO DO IF SYMPTOMS WORSEN - Contact your physician if you have shortness of breath/difficulty breathing, or any swelling of your legs, ankles or feet. IF YOU EXPERIENCE NEW STROKE SYMPTOMS, CALL 911 IMMEDIATELY - Symptoms of stroke include any of the following: Trouble talking/slurred speech, arm/leg/hand/facial weakness on one side, loss of balance or coordination or sudden loss of vision. - Modifiable risk factors for stroke include, but are not limited to: overweight/obesity, sedentarylifestyle/inactivity, alcohol consumption, illicit drug use, smoking, hypertension, high cholesterol, diabetes and atrial fibrillation. The discharge and medication instructions have been reviewed with me and my questions have been answered. I have received a copy of the discharge instructions. 08/14/2013 NING LATHE OPERATOR [employer]OMATIC * Discharge Instructions* Document, Scanned - 08/15/2013 5:47 PM SPINNING LATHE OPERATOR AUTOMATIC NING LATHE OPERATOR [employer]OMATIC documented in this encounter Medications at Time [...] as needed. 20 Tab 0 08/14/2013 09/01/2013 levothyroxine (TIROSINT) 88 MCG capsuleIndications:Hypot hyroidism Take 1 Cap by mouth daily before breakfast. 90 Cap 2 02/22/2013 12/29/2013 lisinopril (PRINIVIL; ZESTRIL) 40 MG tablet Take 40 mg by mouth once daily. 05/12/2014 metoprolol tartrate IR (LOPRESSOR) 25 MG tabletIndications:HTN (hypertension) Take 1 Tab by mouth 2 times daily. 60 Tab 2 05/02/2013 09/12/2013 nitroglycerin (NITROSTAT) 0.4 MG tablet Dissolve 1 Tab under the tongue every 5 minutes as needed for Angina. 100 Tab 3 02/22/2013 05/11/2014 ondansetron, disintegrating, (ZOFRAN ODT) 4 MG tabletIndications:nausea Take 4 mg by mouth every 6 hours as needed. Allow tablet to dissolve on the tongue Indications: nausea 09/01/2013 documented as of this encounter Progress Notes * Mark Rose MD - 08/14/2013 9:13 AM CST GI Progress Note Admit Date: 08/07/2013 12:51 PM Hospital Day: 7 Subjective Mild nausea and RUQ abd pain; gradually improving. Afeb. LFTs continue to improve. + BM Data Vitals: 08/12/13194808/13/1351908/13/13194508/14/13426 BP: 129/66 171/80 169/87 157/84 Pulse: 64 64 58 81 Temp: 98.1 ??F 98.8 ??F 98.4 ??F 98.7 ??F Resp: 18 18 16 Weight: SpO2: 94% 98% 94% 97% Component Name 08/11/1342208/10/1342308/09/13438 WBC 8.1 4.9 4.6 HGB 12.6 14.0 14.1 HCT 38.0 41.8 42.0 PLTCOUNT 195 217 215 Component Name 08/14/13 0622 SODIUM 140 POTASSIUM 3.6 CHLORIDE 108* CO2 25 BUN 9 CREATININE 0.52 GLUCOSE 105 CALCIUM 8.5 ALBUMIN 3.0* ALKPHOS 105 ALT 156* AST 31 TBIL 0.5 TPROT 6.9 EGFR >60 Exam General appearance: alert, cooperative, no distress Heart: regular rhythm, normal S1 and S2, without murmurs, rubs or gallops Lungs: breath sounds normal and symmetric; no rales or wheezes Abdomen: soft without mass, mild to moderate RUQ-tender, with normal bowel sounds Extremities: no clubbing, cyanosis or edema Assessment and Plan: 1. Acute Cholecystitis S/p CCK; incision sites look good Pain gradually improving. F/u post op w/ surgery 2. Choledocholithiasis S/p ERCP No residual stones LFTs improving Abnormal ASMA/SONJA noted; unclear if any underlying liver disease, seems less likely. Will repeat LFTs in 3-4 weeks. If LFTs do not normalize, liver bx could be ultimately considered. Discharge today from GI perspective NING LATHE OPERATOR AUTOMATIC * Zulema Conde RN - 08/14/2013 7:45 AM CST Patient A&Ox4. VSS. Patient had one bowel movement last night, but indicates constipation. Lastnorco administered at 2000. Patient states pain is tolerable at 3/10. Will continue to monitor. NING LATHE OPERATOR AUTOMATIC * Chacha Christina MD - 08/13/2013 11:02 AM CST Admit Date: 08/07/2013 12:51 PM Hospital Day: 6 Clinical Course Post op pain on and off. No CP/ SOB S/p ERCP C/o constipation , passing flatus New Symptoms Data Vitals: 08/12/13 1328 08/12/13 1452 08/12/13 1949 08/13/13 0520 BP: 161/91 140/83 129/66 171/80 Pulse: 53 58 64 64 Temp: 98.2 ??F 98.1 ??F 98.8 ??F Resp: 18 18 18 Weight: SpO2: 93% 91% 94% 98% . Component Name 08/11/13 0423 08/10/13 0424 08/09/13 0439 WBC 8.1 4.9 4.6 HGB 12.6 14.0 14.1 HCT 38.0 41.8 42.0 PLTCOUNT 195 217 215 . Component Name 08/13/13 0502 08/11/13 0423 08/10/13 0424 SODIUM 142 139 141 POTASSIUM 3.6 3.9 3.9 CHLORIDE 108* 107 110* CO2 27 28 26 BUN 8 9 10 CREATININE 0.52 0.63 0.51 GLUCOSE 86 87 113* CALCIUM 8.5 8.2* 8.5 . Component Name 07/01/13 0804 02/22/13 1426 TSH 1.260 1.360 . Component Name 08/10/13 1059 08/07/13 2152 08/07/13 1752 TROPONIN <0.015 <0.015 <0.015 . Component Name 08/07/13 1305 LIPASE 162 . Component Name 07/01/13 0804 02/22/13 1426 TSH 1.260 1.360 . MEDICATIONS FOR CURRENT ENCOUNTER: SCHEDULED MEDICATIONS: 0.9% NaCl injection 3 mL, Active, Intracatheter, q8h aspirin tablet 325 mg, Active, Oral, QDAY fentaNYL (SUBLIMAZE) injection 25 mcg, Completed, Intravenous, Once levothyroxine (SYNTHROID) tablet 88 mcg, Active, Oral, QDAY BEFORE BREAKFAST lisinopril (PRINIVIL; ZESTRIL) tablet 40 mg, Active, Oral, QDAY metoprolol tartrate IR (LOPRESSOR) tablet 25 mg, Active, Oral, BID ?? ondansetron (ZOFRAN) injection 4 mg, Completed, Intravenous, Once CONTINUOUS MEDICATIONS: ?? 0.9% NaCl infusion, Active, Intravenous, Continuous PRN MEDICATIONS: 0.9% NaCl injection 1-10 mL, Active, Intracatheter, PRN hydrocodone-acetaminophen (NORCO) 5-325 MG tablet 1-2 Tab, Active, Oral, q4h PRN HYDROmorphone (DILAUDID) injection 0.5 mg, Active, Intravenous, q4h PRN nitroglycerin (NITROSTAT) tablet 0.4 mg, Active, Sublingual, q5 min PRN ?? ondansetron (ZOFRAN) injection 4 mg, Active, Intravenous, q4h PRN ?? Exam General appearance: alert, cooperative. No distress Heart: regular rhythm, normal S1 and S2, Lungs: breath sounds normal BL Abdomen: soft without mass,with normal bowel sounds Extremities: no clubbing, cyanosis or edema Neuro: Normal. No focal deficits Assessment and Plan Acute cholecsysitits -RUQ pain, elevated LFTs, mild gallbladder distention on CT -abdominal u/s with distended GB -GI/ Surg consulted. Now s/p CCK S/p ERCP for BD stones Elevated LFTs -probably related to cholecystitis -GI consulted -Improving - F Actin Ab/ SONJA +ve. Autoimmune liver disease?? Will need to repeat these in 2-3 weeks. Viral Hep profile neg HTN -BP stable -resumed home regimen Hypothyroidism -continue Tirosint H/o MS -stable H/o CAD, [place] Continue BB and home meds, ASA Constipation : Start on bowel regimen DVT ppx- SCDs Dc home if constipation resolves Chacha Christina MD 08/08/2013 11:02 AM NING LATHE OPERATOR [employer]OMATIC * Mark Rose MD - 08/13/2013 10:43 AM CST GI Progress Note Admit Date: 08/07/2013 12:51 PM Hospital Day: 6 Subjective Increased RUQ abdominal pain last evening, now improving. No n/v Tolerating low fat diet with no exacerbation of pain. Afeb. LFTs markedly better Data Vitals: 08/12/13 1328 08/12/13 1452 08/12/13 1949 08/13/13 0520 BP: 161/91 140/83 129/66 171/80 Pulse: 53 58 64 64 Temp: 98.2 ??F 98.1 ??F 98.8 ??F Resp: 18 17 18 18 Weight: SpO2: 93% 91% 94% 98% Component Name 08/11/13 0423 08/10/13 0424 08/09/13 0439 WBC 8.1 4.9 4.6 HGB 12.6 14.0 14.1 HCT 38.0 41.8 42.0 PLTCOUNT 195 217 215 Component Name 08/13/13 0502 SODIUM 142 POTASSIUM 3.6 CHLORIDE 108* CO2 27 BUN 8 CREATININE 0.52 GLUCOSE 86 CALCIUM 8.5 ALBUMIN 3.0* ALKPHOS 108 ALT 205* AST 42* TBIL 0.6 TPROT 6.6 EGFR >60 Exam General appearance: alert, cooperative, no distress Heart: regular rhythm, normal S1 and S2, without murmurs, rubs or gallops Lungs: breath sounds normal and symmetric; no rales or wheezes Abdomen: soft without mass, moderate RUQ and RLQ-tender, with normal bowel sounds Extremities: no clubbing, cyanosis or edema Assessment and Plan: 1. Acute Cholecystitis S/p CCK; incision sites look good 2. Choledocholithiasis S/p ERCP yesterday No residual stones LFTs now improving Patient still have moderate RUQ abd pain that is likely post operative. Tolerating diet. OK to d/c home today from GI perspective but will likely need pain meds and to be off work for the next week. NING LATHE OPERATOR [employer]OMATIC * Donna Huffman RN - 08/13/2013 7:00 AM CST End of Shift: Patient A+Ox4 with VSS. Patient complained of pain during the beginning of shift. Received norco and dilaudid and patient stated that it helped her pain tremendously. Will continue to monitor. NING LATHE OPERATOR AUTOMATIC * Ni Gonzalez RN - 08/12/2013 6:27 PM CST Shift note: Received patient from hotel night auditor nurse, pt was alert and oriented, VSS, and appeared comfortable and in no distress. Pt left unit for ERCP around 10am. Patient came back to 5N around 3pm. VSS, pain is under control, and pt appears comfortable and in no distress. Continue to monitor. NING LATHE OPERATOR AUTOMATIC * Raya Bowen RN - 08/12/2013 12:26 PM CST Normal exam NING LATHE OPERATOR [employer]OMATIC * Vasyl Lyon MD - 08/12/2013 6:46 AM CST Admit Date: 08/07/2013 12:51 PM Hospital Day: 5 Clinical Course Post op pain on and off. No CP/ SOB For ERCP today New Symptoms Data Vitals: 08/11/13 1030 08/11/13 1417 08/11/13200808/12/13 0410 BP: 129/75 141/84 160/92 154/78 Pulse: 56 57 60 50 Temp: 98.1 ??F 98.7 ??F 97.7 ??F 97.8 ??F Resp: 17 17 18 18 Weight: SpO2: 98% 95% 95% 98% . Component Name 08/11/13 0423 08/10/13 0424 08/09/13 0439 WBC 8.1 4.9 4.6 HGB 12.6 14.0 14.1 HCT 38.0 41.8 42.0 PLTCOUNT 195 217 215 . Component Name 08/11/13 0423 08/10/13 0424 08/09/13 0439 SODIUM 139 141 140 POTASSIUM 3.9 3.9 3.9 CHLORIDE 107 110* 108* CO2 28 26 26 BUN 9 10 8 CREATININE 0.63 0.51 0.55 GLUCOSE 87 113* 83 CALCIUM 8.2* 8.5 8.8 .No results found for this basename: INR:3 in the last 43795 hours . Component Name 07/01/13 0804 02/22/13 1426 TSH 1.260 1.360 . Component Name 08/10/13 1059 08/07/13 2152 08/07/13 1752 TROPONIN <0.015 <0.015 <0.015 .No results found for this basename: MAGMGDL:3 in the last 71848 hours . Component Name 08/07/13 1305 LIPASE 162 . Component Name 07/01/13 0804 02/22/13 1426 TSH 1.260 1.360 . MEDICATIONS FOR CURRENT ENCOUNTER: SCHEDULED MEDICATIONS: 0.9% NaCl injection 3 mL, Active, Intracatheter, q8h aspirin tablet 325 mg, Active, Oral, QDAY levothyroxine (SYNTHROID) tablet 88 mcg, Active, Oral, QDAY BEFORE BREAKFAST lisinopril (PRINIVIL; ZESTRIL) tablet 40 mg, Active, Oral, QDAY ?? metoprolol tartrate IR (LOPRESSOR) tablet 25 mg, Active, Oral, BID CONTINUOUS MEDICATIONS: ?? 0.9% NaCl infusion, Active, Intravenous, Continuous PRN MEDICATIONS: 0.9% NaCl injection 1-10 mL, Active, Intracatheter, PRN hydrocodone-acetaminophen (NORCO) 5-325 MG tablet 1-2 Tab, Active, Oral, q4h PRN HYDROmorphone (DILAUDID) injection 0.5 mg, Active, Intravenous, q2h PRN nitroglycerin (NITROSTAT) tablet 0.4 mg, Active, Sublingual, q5 min PRN ?? ondansetron (ZOFRAN) injection 4 mg, Active, Intravenous, q4h PRN ?? Exam General appearance: alert, cooperative. No distress Heart: regular rhythm, normal S1 and S2, without murmurs, rubs or gallops Lungs: breath sounds normal BL Abdomen: soft without mass, Post op tender over RUQ, with normal bowel sounds Extremities: no clubbing, cyanosis or edema Neuro: Normal. Gait not checked Assessment and Plan Acute cholecsysitits -RUQ pain, elevated LFTs, mild gallbladder distention on CT -abdominal u/s with distended GB -GI/ Surg consulted. Now s/p CCK Needs ERCP for BD stones, scheduled today Decrease pain meds Elevated LFTs -probably related to cholecystitis -GI consulted -Improving - F Actin Ab/ SONJA +ve. Autoimmune liver disease?? Will need to repeat these in 2-3 weeks. Viral Hep profile neg HTN -BP stable -resumed home regimen Hypothyroidism -continue Tirosint H/o MS -stable H/o CAD, [place] -denies CP. EKG/ Trops ok. Continue BB and home meds -continue ACEI, BB, and ASA Dd with pt Overall ok DC plan for AM DVT ppx- SCDs Vasyl Lyon MD 08/08/2013 6:46 AM NING LATHE OPERATOR [employer]OMATIC * Parul Moreno RN - 08/12/2013 4:38 AM CST Shift summary: VSS. A&Ox4. C/o of abd pain managed with pain meds. Pt NPO for procedure today. At this time Pt in no apparent distress. Parul Delgadillo RN 08/12/2013 4:42 AM NING LATHE OPERATOR [employer]OMATIC * Ni Gonzalez RN - 08/11/2013 5:31 PM CST Shift note: Received patient from hotel night auditor nurse, patient appeared comfortable and in no distress, VSS, and alert and oriented. Patient received [place] and Dilaudid for her severe abd pain today, tolerated medication well. NPO after midnight tonight for her ERCP procedure tomorrow. Patient appears comfortable and VSS. NING LATHE OPERATOR AUTOMATIC * Renetta Person RN - 08/11/2013 11:21 AM CST Problem: Discharge Planning Goal: Patient???s continuum of care needs are met Outcome: Ongoing Multidisciplinary rounds completed with upper and bottom lacer hand, CSN, Steel Sampler, and Legal Officer. Plan discharge to home with family. Renetta Person RN/Steel [phone] NING LATHE OPERATOR [employer]OMATIC * Sol Lynch RN - 08/11/2013 8:16 AM CST Endoscopy was informed of procedure in am 08/12/[address] Rose[address]Sol Lynch RN 08/11/2013 8:17 AM NING LATHE OPERATOR [employer]OMATIC * Vasyl Lyon MD - 08/11/2013 7:12 AM CST Admit Date: 08/07/2013 12:51 PM Hospital Day: 4 Clinical Course Post op pain as expected, helped by pain meds +ve flatus No CP/ SOB New Symptoms Data Vitals: 08/10/13 1249 08/10/13 1524 08/10/134 08/11/13 0604 BP: 141/91 132/81 137/75 144/79 Pulse: 80 69 78 45 Temp: 98.2 ??F 98 ??F 98.2 ??F 97.7 ??F Resp: 17 17 18 16 Weight: SpO2: 93% 95% 93% 99% . Component Name 08/11/1342208/10/1342308/09/13438 WBC 8.1 4.9 4.6 HGB 12.6 14.0 14.1 HCT 38.0 41.8 42.0 PLTCOUNT 195 217 215 . Component Name 08/11/1342208/10/1342308/09/13438 SODIUM 139 141 140 POTASSIUM 3.9 3.9 3.9 CHLORIDE 107 110* 108* CO2 28 26 26 BUN 9 10 8 CREATININE 0.63 0.51 0.55 GLUCOSE 87 113* 83 CALCIUM 8.2* 8.5 8.8 .No results found for this basename: INR:3 in the last 82634 hours . Component Name 07/01/13 0804 02/22/13 1426 TSH 1.260 1.360 . Component Name 08/10/13 1059 08/07/13 2152 08/07/13 1752 TROPONIN <0.015 <0.015 <0.015 .No results found for this basename: MAGMGDL:3 in the last 28699 hours . Component Name 08/07/13 1305 LIPASE 162 . Component Name 07/01/13 0804 02/22/13 1426 TSH 1.260 1.360 . MEDICATIONS FOR CURRENT ENCOUNTER: SCHEDULED MEDICATIONS: 0.9% NaCl injection 3 mL, Active, Intracatheter, q8h aspirin tablet 325 mg, Active, Oral, QDAY levothyroxine (SYNTHROID) tablet 88 mcg, Active, Oral, QDAY BEFORE BREAKFAST lisinopril (PRINIVIL; ZESTRIL) tablet 40 mg, Active, Oral, QDAY ?? metoprolol tartrate IR (LOPRESSOR) tablet 25 mg, Active, Oral, BID CONTINUOUS MEDICATIONS: ?? 0.9% NaCl infusion, Active, Intravenous, Continuous PRN MEDICATIONS: 0.9% NaCl injection 1-10 mL, Active, Intracatheter, PRN hydrocodone-acetaminophen (NORCO) 5-325 MG tablet 1-2 Tab, Active, Oral, q4h PRN HYDROmorphone (DILAUDID) injection 0.5 mg, Active, Intravenous, q2h PRN HYDROmorphone (DILAUDID) injection 0.5 mg, Completed, Intravenous, q10 min PRN nitroglycerin (NITROSTAT) tablet 0.4 mg, Active, Sublingual, q5 min PRN ?? ondansetron (ZOFRAN) injection 4 mg, Active, Intravenous, q4h PRN ?? Exam General appearance: alert, cooperative. No distress Heart: regular rhythm, normal S1 and S2, without murmurs, rubs or gallops Lungs: breath sounds normal BL Abdomen: soft without mass, Post op tender over RUQ, with normal bowel sounds Extremities: no clubbing, cyanosis or edema Neuro: Normal. Gait not checked Assessment and Plan Acute cholecsysitits -RUQ pain, elevated LFTs, mild gallbladder distention on CT -abdominal u/s with distended GB -GI/ Surg consulted. Now s/p CCK Needs ERCP for BD stones, scheduled in AM, as discussed with Dr Rose Elevated LFTs -probably related to cholecystitis -GI consulted -Improving - F Actin Ab/ SONJA +ve. Autoimmune liver disease?? Will need to repeat these in 2-3 weeks. Viral Hep profile neg HTN -BP stable -resumed home regimen Hypothyroidism -continue Tirosint H/o MS -stable H/o CAD, [place] -denies CP. EKG/ Trops ok. Continue BB and home meds -continue ACEI, BB, and ASA Dd with pt Overall ok DVT ppx- SCDs Vasyl Lyon MD 08/08/2013 7:12 AM NING LATHE OPERATOR [employer]OMATIC * Salty Merlos RN - 08/11/2013 6:29 AM CST End of Shift: Patient complained of pain in abdomen, placed ice make on painful area, dilaudid for pain and norco for breakthrough. Up and [place], VSS, A&OX4, incision on abdomen intact with skin glue, no signs of infection, used SCDs throughout shift. Tolerating food. No signs of distress. [employer] * Philomena Chino, CHARIS - 08/10/2013 8:18 PM CST Pt. In surgery until this afternoon. She maryam. Clears well, so call placed to Dr. Alvares for advancement of diet to regular. Pt.'s pain not controlled with Dilaudid 0.5 mg q 4 hrs, so order requestedand received for Dilaudid 0.5 mg q 2 hrs. 4 Abdominal Lap sites without drainage and w/ dermabond. Bowl sounds minimal. Pt. Able to ambulate to bathroom and void successfully. [employer] * Sasha Muniz RN - 08/10/2013 6:24 PM CST Patient requesting if her diet can be advanced, call out to Dr. Alvares. [employer] * Mark Rose MD - 08/10/2013 12:02 PM CST GI Progress Note Admit Date: 08/07/2013 12:51 PM Hospital Day: 3 Subjective Patient seen in postop recovery IOC demonstrated multiple CBD stones GB c/w acute cholecystitis s/p CCK Data Vitals: 08/10/13 1105 08/10/13 1115 08/10/13 1130 08/10/13 1145 BP: 194/97 184/100 185/93 172/94 Pulse: 72 68 70 68 Temp: Resp: Weight: SpO2: 93% 92% 92% 93% Component Name 08/10/13 0424 08/09/13 0439 08/08/13 0336 WBC 4.9 4.6 6.5 HGB 14.0 14.1 13.9 HCT 41.8 42.0 41.1 PLTCOUNT 217 215 205 Component Name 08/10/13 0424 SODIUM 141 POTASSIUM 3.9 CHLORIDE 110* CO2 26 BUN 10 CREATININE 0.51 GLUCOSE 113* CALCIUM 8.5 ALBUMIN 3.2* ALKPHOS 133* ALT 461* AST 135* TBIL 0.8 TPROT 7.4 EGFR >60 Exam General appearance: alert, cooperative, no distress Heart: regular rhythm, normal S1 and S2, without murmurs, rubs or gallops Lungs: breath sounds normal and symmetric; no rales or wheezes Abdomen: soft without mass, moderate BUQ-tender, with normal bowel sounds Extremities: no clubbing, cyanosis or edema Assessment and Plan: 1. Acute cholecystitis S/p CCK today 2. Abnl LFTs IOC c/w retained CBD stones ERCP planned Fri morning [employer] * Mark Rose MD - 08/10/2013 7:37 AM CST Patient off floor for GB surgery. Spoke with daughter and Dr Alvares. IOC planned; if has CBD stonethat can not be removed intraoperatively, will need eventual ERCP. If no stone, then discharge per Dr Alvares. [employer] * Vasyl Lyon MD - 08/10/2013 7:35 AM CST Admit Date: 08/07/2013 12:51 PM Hospital Day: 3 Late entry Clinical Course On and off nausea and RUQ abd pain still +ve. Going for surgery today No CP/ SOB New Symptoms Data Vitals: 08/09/13 0737 08/09/13 1825 08/09/13 2042 08/10/13 0411 BP: 150/82 126/76 133/72 144/89 Pulse: 51 61 48 56 Temp: 97.8 ??F 98 ??F 97.9 ??F 97.7 ??F Resp: 18 18 18 18 Weight: SpO2: 93% 93% 94% 93% . Component Name 08/10/13 0424 08/09/13 0439 08/08/13 0336 WBC 4.9 4.6 6.5 HGB 14.0 14.1 13.9 HCT 41.8 42.0 41.1 PLTCOUNT 217 215 205 . Component Name 08/10/13 0424 08/09/13 0439 08/08/13 0336 SODIUM 141 140 139 POTASSIUM 3.9 3.9 3.7 CHLORIDE 110* 108* 108* CO2 26 26 26 BUN 10 8 12 CREATININE 0.51 0.55 0.54 GLUCOSE 113* 83 85 CALCIUM 8.5 8.8 8.1* .No results found for this basename: INR:3 in the last 94118 hours . Component Name 07/01/13 0804 02/22/13 1426 TSH 1.260 1.360 . Component Name 08/07/13 2152 08/07/13 1752 08/07/13 1305 TROPONIN <0.015 <0.015 <0.015 .No results found for this basename: MAGMGDL:3 in the last 91452 hours . Component Name 08/07/13 1305 LIPASE 162 . Component Name 07/01/13 0804 02/22/13 1426 TSH 1.260 1.360 . MEDICATIONS FOR CURRENT ENCOUNTER: SCHEDULED MEDICATIONS: aspirin tablet 325 mg, Active, Oral, QDAY iohexol (OMNIPAQUE 350) contrast, , Intravenous, Contrast - Once levothyroxine (SYNTHROID) tablet 88 mcg, Active, Oral, QDAY BEFORE BREAKFAST lisinopril (PRINIVIL; ZESTRIL) tablet 40 mg, Active, Oral, QDAY ?? metoprolol tartrate IR (LOPRESSOR) tablet 25 mg, Active, Oral, BID CONTINUOUS MEDICATIONS: ?? 0.9% NaCl infusion, Active, Intravenous, Continuous PRN MEDICATIONS: 0.9% NaCl injection 1-10 mL, Active, Intracatheter, PRN 0.9% nacl irrigation solution, Active, , PRN bupivacaine 0.25% - epinephrine 1:200,000 (PF) injection, Active, , PRN HYDROmorphone (DILAUDID) injection 0.5 mg, Active, Intravenous, q4h PRN lidocaine PF 0.5% (XYLOCAINE) 0.5 % injection, Active, , PRN nitroglycerin (NITROSTAT) tablet 0.4 mg, Active, Sublingual, q5 min PRN ?? ondansetron (ZOFRAN) injection 4 mg, Active, Intravenous, q4h PRN ?? Exam General appearance: alert, cooperative. No distress Heart: regular rhythm, normal S1 and S2, without murmurs, rubs or gallops Lungs: breath sounds normal BL Abdomen: soft without mass, tender over RUQ, with normal bowel sounds Extremities: no clubbing, cyanosis or edema Neuro: Normal. Gait not checked Assessment and Plan Probable Acute cholecsysitits -RUQ pain, elevated LFTs, mild gallbladder distention on CT -abdominal u/s pending -GI consulted. Dd with Dr Rose. Surg consult obtained. CCK today (could not be done yesterday) Elevated LFTs -probably related to cholecystitis -GI consulted -Improving slowly HTN -BP stable -resumed home regimen Hypothyroidism -continue Tirosint H/o MS -stable H/o CAD, VT -denies CP. EKG/ Trops ok. Continue BB aldo-op. OK to go for surgery -continue ACEI, BB, and ASA DVT ppx- SCDs Vasyl Lyon MD 08/08/2013 7:35 AM [employer] * Nuvia Silva RN - 08/10/2013 6:08 AM CST Summary: Pt alert. Showered self. New IV placed to left wrist. Pain medication administered with good pain management. VSS Nuvia Silva RN [employer] * Hema Woodson RN - 08/09/2013 11:54 PM CST Patient oriented to the floor from surgery without difficulty. Patient had a CAPD cath placed today. No issues with pain nor distress addressed. Call light and personal items placed within reach. Will continue to monitor. CHARIS Rodriguez [employer] * Renetta Person RN - 08/09/2013 11:35 AM CST Spoke with patient who is having Lap Rita this afternoon. Plan home with family upon discharge. Renetta Person RN/Steel [phone] [employer] * Vasyl Lyon MD - 08/09/2013 7:11 AM CST Admit Date: 08/07/2013 12:51 PM Hospital Day: 2 Clinical Course On and off nausea and RUQ abd pain No CP/ SOB New Symptoms Data Vitals: 08/08/13 1031 08/08/13 1405 08/08/13 2100 08/09/13 0459 BP: 133/89 145/83 141/85 145/86 Pulse: 58 56 60 57 Temp: 98 ??F 98 ??F 98.3 ??F 98 ??F Resp: 18 16 16 16 Weight: SpO2: 94% 91% 93% 93% . Component Name 08/09/13 0439 08/08/13 0336 08/07/13 1305 WBC 4.6 6.5 6.4 HGB 14.1 13.9 15.9* HCT 42.0 41.1 46.2* PLTCOUNT 215 205 236 . Component Name 08/09/13 0439 08/08/13 0336 08/07/13 1305 SODIUM 140 139 138 POTASSIUM 3.9 3.7 4.1 CHLORIDE 108* 108* 109* CO2 26 26 24 BUN 8 12 16 CREATININE 0.55 0.54 0.55 GLUCOSE 83 85 93 CALCIUM 8.8 8.1* 8.7 .No results found for this basename: INR:3 in the last 75196 hours . Component Name 07/01/13 0804 02/22/13 1426 TSH 1.260 1.360 . Component Name 08/07/13 2152 08/07/13 1752 08/07/13 1305 TROPONIN <0.015 <0.015 <0.015 .No results found for this basename: MAGMGDL:3 in the last 17764 hours . Component Name 08/07/13 1305 LIPASE 162 . Component Name 07/01/13 0804 02/22/13 1426 TSH 1.260 1.360 . MEDICATIONS FOR CURRENT ENCOUNTER: SCHEDULED MEDICATIONS: aspirin tablet 325 mg, Active, Oral, QDAY iohexol (OMNIPAQUE 350) contrast, Active, Intravenous, Contrast - Once levothyroxine (SYNTHROID) tablet 88 mcg, Active, Oral, QDAY BEFORE BREAKFAST lisinopril (PRINIVIL; ZESTRIL) tablet 40 mg, Active, Oral, QDAY ?? metoprolol tartrate IR (LOPRESSOR) tablet 25 mg, Active, Oral, BID CONTINUOUS MEDICATIONS: ?? 0.9% NaCl infusion, Active, Intravenous, Continuous PRN MEDICATIONS: 0.9% NaCl injection 1-10 mL, Active, Intracatheter, PRN HYDROmorphone (DILAUDID) injection 0.5 mg, Active, Intravenous, q4h PRN nitroglycerin (NITROSTAT) tablet 0.4 mg, Active, Sublingual, q5 min PRN ?? ondansetron (ZOFRAN) injection 4 mg, Active, Intravenous, q4h PRN ?? Exam General appearance: alert, cooperative. No distress Heart: regular rhythm, normal S1 and S2, without murmurs, rubs or gallops Lungs: breath sounds normal BL Abdomen: soft without mass, tender over RUQ, with normal bowel sounds Extremities: no clubbing, cyanosis or edema Neuro: Normal. Gait not checked Assessment and Plan Probable Acute cholecsysitits -RUQ pain, elevated LFTs, mild gallbladder distention on CT -abdominal u/s pending -GI consulted. Dd with Dr Rose. Surg consult obtained. CCK today Elevated LFTs -probably related to cholecystitis -GI consulted -recheck CMP in the morning HTN -BP stable -resumed home regimen Hypothyroidism -continue Tirosint H/o MS -stable H/o CAD, VT -denies CP. EKG/ Trops ok. Continue BB aldo-op. OK to go for surgery -continue ACEI, BB, and ASA Dd with pt DVT ppx- SCDs DVT Proph: Code Status: Vasyl Lyon MD 08/08/2013 7:11 AM [employer] * Mark Rose MD - 08/09/2013 6:42 AM CST GI Progress Note Admit Date: 08/07/2013 12:51 PM Hospital Day: 2 Subjective Mild Nausea and RUQ pain. Afeb. RUQ US shows distended GB and CBD .6.5cm. Data Vitals: 08/08/13 1031 08/08/13 1405 08/08/13 2100 08/09/13 0459 BP: 133/89 145/83 141/85 145/86 Pulse: 58 56 60 57 Temp: 98 ??F 98 ??F 98.3 ??F 98 ??F Resp: 18 16 16 16 Weight: SpO2: 94% 91% 93% 93% Component Name 08/09/13 0439 08/08/13 0336 08/07/13 1305 WBC 4.6 6.5 6.4 HGB 14.1 13.9 15.9* HCT 42.0 41.1 46.2* PLTCOUNT 215 205 236 Component Name 08/09/13 043 SODIUM 140 POTASSIUM 3.9 CHLORIDE 108* CO2 26 BUN 8 CREATININE 0.55 GLUCOSE 83 CALCIUM 8.8 ALBUMIN 3.2* ALKPHOS 137* ALT 585* AST 185* TBIL 1.0 TPROT 7.5 EGFR >60 Exam General appearance: alert, cooperative, no distress Heart: regular rhythm, normal S1 and S2, without murmurs, rubs or gallops Lungs: breath sounds normal and symmetric; no rales or wheezes Abdomen: soft without mass, mild RUQ tender, with normal bowel sounds Extremities: no clubbing, cyanosis or edema Assessment and Plan: 1. Abnormal LFTs Likely related to GB CBD 6.5cm on US, possible retained stone CCK with intraop cholangiogram planned for today Additional liver labs pending [employer] * Freda Hernandez RN - 08/08/2013 3:46 PM CST patient resting in bed, no c/o pain nor discomfort at this time, call light in reach, will continueto monitor, patient Aware of surgery for gallbladder removal tomorrow, patient will be NPO after midnight. [employer] * Fern Ruth RN - 08/08/2013 2:29 PM CST Welcome letter and [facility] letter given to pt/family along with admission packet. Initial CM screen completed. CM and [employer] contact information reviewed. Names/numbers put on white board. Pt was interviewed. Pt lives with her family and expects to return home at discharge. Current admission diagnosis:ABD pain. Acute choly Prior to admission: independent DME: none PCP: patient prefers to make own appointment: offered. Pt will make her own appt Hospital readmission within 30 days:no Pt's pharmacy: [facility] offered. yes Flu vaccine: no Pneumonia vaccine: no Discharge plan is for patient to: home Transportation:family Admission status adressed Fern Ruth RN [employer] - [phone] [employer] * Vasyl Lyon MD - 08/08/2013 8:03 AM CST Admit Date: 08/07/2013 12:51 PM Hospital Day: 1 Clinical Course On and off nausea and RUQ abd pain No CP/ SOB New Symptoms Data Vitals: 08/07/13 1741 08/07/13 2024 08/07/13 2308 08/08/13 0442 BP: 150/93 142/81 130/79 137/83 Pulse: 70 63 55 104 Temp: 98 ??F 98.3 ??F 98 ??F 98.1 ??F Resp: 17 18 18 18 Weight: SpO2: 95% 94% 94% 95% . Component Name 08/08/13 0336 08/07/13 1305 02/22/13 1426 WBC 6.5 6.4 7.1 HGB 13.9 15.9* 14.9 HCT 41.1 46.2* 43.7 PLTCOUNT 205 236 230 . Component Name 08/08/13 0336 08/07/13 1305 07/01/13 0804 SODIUM 139 138 139 POTASSIUM 3.7 4.1 4.0 CHLORIDE 108* 109* 102 CO2 26 24 22 BUN 12 16 12 CREATININE 0.54 0.55 0.73 GLUCOSE 85 93 91 CALCIUM 8.1* 8.7 9.2 .No results found for this basename: INR:3 in the last 17902 hours . Component Name 07/01/13 0804 02/22/13 1426 TSH 1.260 1.360 . Component Name 08/07/13 2152 08/07/13 1752 08/07/13 1305 TROPONIN <0.015 <0.015 <0.015 .No results found for this basename: MAGMGDL:3 in the last 81611 hours . Component Name 08/07/13 1305 LIPASE 162 . Component Name 07/01/13 0804 02/22/13 1426 TSH 1.260 1.360 . MEDICATIONS FOR CURRENT ENCOUNTER: ?? SCHEDULED MEDICATIONS: ?? aspirin tablet 325 mg, Active, Oral, QDAY ?? HYDROmorphone (DILAUDID) injection 0.5 mg, Completed, Intravenous, Once ?? HYDROmorphone (DILAUDID) injection 1 mg, Completed, Intravenous, Once ?? iohexol (OMNIPAQUE 350) contrast 50 mL, Completed, Oral, Once ?? iohexol (OMNIPAQUE 350) contrast, Active, Intravenous, Contrast - Once ?? levothyroxine (SYNTHROID) tablet 88 mcg, Active, Oral, QDAY BEFORE BREAKFAST ?? lisinopril (PRINIVIL; ZESTRIL) tablet 40 mg, Active, Oral, QDAY ?? metoprolol tartrate IR (LOPRESSOR) tablet 25 mg, Active, Oral, BID ?? ondansetron (ZOFRAN) injection 4 mg, Completed, Intravenous, Once ?? CONTINUOUS MEDICATIONS: ?? 0.9% NaCl infusion, Active, Intravenous, Continuous ?? PRN MEDICATIONS: ?? 0.9% NaCl injection 1-10 mL, Active, Intracatheter, PRN ?? HYDROmorphone (DILAUDID) injection 0.5 mg, Active, Intravenous, q4h PRN ?? nitroglycerin (NITROSTAT) tablet 0.4 mg, Active, Sublingual, q5 min PRN ?? ondansetron (ZOFRAN) injection 4 mg, Active, Intravenous, q4h PRN ?? Exam General appearance: alert, cooperative. No distress Heart: regular rhythm, normal S1 and S2, without murmurs, rubs or gallops Lungs: breath sounds normal BL Abdomen: soft without mass, tender over RUQ, with normal bowel sounds Extremities: no clubbing, cyanosis or edema Neuro: Normal. Gait not checked Assessment and Plan Probable Acute cholecsysitits -RUQ pain, elevated LFTs, mild gallbladder distention on CT -abdominal u/s pending -GI consulted. Dd with Dr Rose. Surg consult obtained. Prob CCK Elevated LFTs -probably related to cholecystitis -GI consulted -recheck CMP in the morning HTN -BP stable -resumed home regimen Hypothyroidism -continue Tirosint H/o MS -stable H/o CAD, VT -denies CP. EKG/ Trops ok. Continue BB aldo-op. OK to go for surgery if suggested after eval -continue ACEI, BB, and ASA Dd with pt DVT ppx- SCDs DVT Proph: Code Status: Vasyl Lyon MD 08/08/2013 8:03 AM [employer] * Sonya Larkin RN - 08/08/2013 4:00 AM CST Shift summary:pt resting quietly in bed,ivf infusing,call light within reach,kept npo after midnight for abdominal ultrasound,abdominal pain and nausea controlled with dilaudid and zofran , voids without any problem. [employer] documented in this encounter H&P Notes * Marjan Topete PA-C - 08/07/2013 7:35 PM CST History and Physical Date of Admission: 08/07/2013 Patient's Primary Care Physician: Sveta Terry Name: Pool Rodriguez Age: 47 y.o. Race: Sex: female Chief Complaint/History of Present Illness Ms. Rodriguez is a 47yo female with a PMH of VT, HTN, HLD, MS, lap band, hypothyroidism ,depression who is presents with RUQ abdominal pain. Pt was seen at a hospital in [place], [place] last week for the same and was admitted for 5 days. Pt was supposed to have cholecystectomy, but LFTs were too elevated. She was to f/u outpt with a pasteurizing supervisor, but has not seen them yet because of the holidays. Pt was told to watch for discolored urine and reports that this morning her urine was dark brown so PCP advised she come in. She reports RUQ abdominal pain and nausea at present. Denies fever, vomitingor diarrhea. Denies CP or SOB. Abdominal CT shows some gallbladder distention and a possible right a drenal adenoma. Labs Alk Phos 179, YISEL 915, AST 355. Past Medical History Diagnosis Date ??? Heart [...] lap band 10.0 ??? Tubal ligation, laparoscopic Family History Problem Relation Age of Onset ??? Cancer Maternal Grandmother laranyx ??? Cancer Maternal Grandfather lung ??? Diabetes Sister ??? Heart Failure Father 48 heart attack ??? Heart Failure Mother 63 heart attack ??? Hypercholesterolemia Mother ??? Hypertension Sister Social History Occupational History ??? [employer] Social History Main Topics ??? Smoking status: Current Every Day Smoker -- 0.5 packs/day for 30 years Types: Cigarettes ??? Smokeless tobacco: Never Used ??? Alcohol Use: No ??? Drug Use: No ??? Sexually Active: Yes -- Male partner(s) Prescriptions prior to admission Medication Status Sig [...] as needed for Angina. 100 Tab 3 Allergies Allergen Reactions ??? Sulfa Drugs ??? Latex Review of Systems A 12 point review of systems was performed and was negative except for: RUQ abdominal pain, nausea,fatigue, dark colored urine Exam Vitals: 08/07/13 1213 08/07/13 1641 08/07/13 1741 BP: 143/101 153/76 150/93 Pulse: 72 70 Temp: 98.6 ??F 98 ??F Resp: 16 17 Weight: 102.967 kg (227 lb) SpO2: 98% 96% 95% General appearance: alert, cooperative, no distress Head: normocephalic, without trauma Eyes: sclera and conjunctiva clear Neck: supple Back: no deformity or tenderness Chest: no tenderness Lungs: breath sounds normal and symmetric; no rales or wheezes Heart: regular rhythm, normal S1 and S2, without murmurs, gallops or rubs Abdomen: soft without mass, tender over RUQ, with normal bowel sounds Extremities: no clubbing, cyanosis or edema Skin: no rashes or other abnormalities are noted Neurologic: mental status normal alert oriented X 3 Data I have reviewed the admission labs, imaging studies and the review is significant for: Component Name 08/07/13 1305 02/22/13 1426 WBC 6.4 7.1 RBC 5.38* 5.22 HGB 15.9* 14.9 HCT 46.2* 43.7 MCV 85.9 84 MCHC 34.4 34.1 RDW -- 14.2 RDWCV 16.4* -- PLTCOUNT 236 230 NEUTPCT 56.3 -- LYMPHPCT 33.1 -- MONOCYTPCT 8.0 -- EOSINPCT 1.4 3 BASOPHILPCT 0.9 -- GRANSIMMPCT 0.3 -- LYMPHABS 2.12 -- MONOCYTABS 0.51 -- EOSINABS 0.09 -- BASOABS 0.06 -- IMMGRANSABS 0.02 -- NRBCAUTO -- -- Component Name 08/07/13 1305 07/01/13 0804 02/22/13 1426 SODIUM 138 139 140 POTASSIUM 4.1 4.0 3.8 CHLORIDE 109* 102 104 CO2 24 22 16* BUN 16 12 15 CREATININE 0.55 0.73 0.77 GLUCOSE 93 91 80 CALCIUM 8.7 9.2 9.8 ALBUMIN 3.7 4.3 4.8 ALKPHOS 179* 86 55 ALT 915* 54* 24 AST 355* 42* 23 TBIL 1.0 0.5 0.4 TPROT 8.3* 6.9 7.3 EGFR >60 98 113 92 106 Component Name 08/07/13 1752 08/07/13 1305 TROPONIN <0.[address] abdomen: CT examination of the abdomen shows a laparoscopic gastric esophageal band in place. Liver and spleen are normal in size and shape. No focal mass identified. Gallbladder is mildly distended. Bile ducts are not dilated. No discrete abnormality identified in the pancreas. Kidneys are normal in size and shape without obstruction or calcified stone. There is enlargement of the right adrenal gland with relatively low-density. This may represent right adrenal adenoma. Followup required. Left adrenal is normal in size. There is no bowel obstruction or perforation. There is no ascites or loculated peritoneal fluid. CT pelvis: CT examination of the pelvis shows no mass lesion or fluid collection. There is no evidence of colitis or diverticulitis. Appendix is normal in caliber. Conclusion: 3.6 x 2.8 cm low-density mass right adrenal gland. This may represent an adenoma. Followup required. Gastroesophageal band in place. No bowel obstruction or perforation. No urinary obstruction or calcified stone. No other focal findings. No acute abnormality identified. Assessment and Plan Probable Acute cholecsysitits -RUQ pain, elevated LFTs, mild gallbladder distention on CT -abdominal u/s in the morning -GI consulted Elevated LFTs -probably related to cholecystitis -GI consulted -recheck CMP in the morning HTN -BP stable -resume home regimen -continue to monitor Hypothyroidism -continue Tirosint H/o MS -stable H/o CAD, VT -denies CP -continue ACEI, BB, and ASA DVT ppx- SCDs [employer] * Vasyl Lyon MD - 08/07/2013 7:35 PM CST Agreed. Further additions as per my note [employer] documented in this encounter Procedure Notes * Document, Scanned - 08/10/2013 8:11 PM CSTAssociated Order(s): EKG 12-LEAD [employer] * Document, Scanned - 08/10/2013 11:28 AM CSTAssociated Order(s): EKG 12-LEAD [employer] * Document, Scanned - 08/10/2013 11:08 AM CSTAssociated Order(s): EKG 12-LEAD [employer] * Document, Scanned - 08/08/2013 8:41 AM CSTAssociated Order(s): EKG 12-LEAD [employer] * Document, Scanned - 08/08/2013 6:57 AM CSTAssociated Order(s): EKG 12-LEAD [employer] * Document, Scanned - 08/08/2013 6:47 AM CSTAssociated Order(s): EKG 12-LEAD [employer] documented in this encounter Consult Notes * Noah Alvares MD - 08/08/2013 9:27 AM CSTAssociated Order(s): IP CONSULT TO GENERAL SURGERY BARIATRIC EVALUATION HISTORY & PHYSICAL Height: 5' 3 (160 cm) Weight: 227 lb (102.967 kg) BMI (Calculated): 40.3 Chief Complaint: RUQ abdominal pain HPI: Pt is a 47yo M with a hx of recurrent RUQ abdominal pain for a few weeks now. Pt was seen at an OSH in [place] last week and admitted for elevated liver enzymes. Was instructed to follow up as an outpt. [facility] for increased symptoms of RUQ abdominal pain, sharp and intermittent. Associated with eating, post prandial, accompanying nausea, no emesis. Since admission her abdominal pain has been stable. Past Medical History Diagnosis Date ??? Heart attack 2010 ??? HTN (hypertension) ??? Hyperlipemia ??? Multiple sclerosis 2005 ??? H/O heart artery stent x1 ??? H/O laparoscopic adjustable gastric banding 2009 ??? S/P tonsillectomy ??? Migraine ??? Hypothyroid ??? Depressive disorder, not elsewhere classified ??? Generalized anxiety disorder Past Surgical History Procedure Date ??? Coronary stent placement ??? Tonsillectomy ??? Sys lap band 10.0 ??? Tubal ligation, laparoscopic Current Facility-Administered Medications Medication Status ??? 0.9% NaCl injection 1-10 mL Active ??? ondansetron (ZOFRAN) injection 4 mg Completed ??? HYDROmorphone (DILAUDID) injection 1 mg Completed ??? iohexol (OMNIPAQUE 350) contrast Active ??? iohexol (OMNIPAQUE 350) contrast 50 mL Completed ??? metoprolol tartrate IR (LOPRESSOR) tablet 25 mg Active ??? HYDROmorphone (DILAUDID) injection 0.5 mg Active ??? ondansetron (ZOFRAN) injection 4 mg Active ??? HYDROmorphone (DILAUDID) injection 0.5 mg Completed ??? 0.9% NaCl infusion Active ??? levothyroxine (SYNTHROID) tablet 88 mcg Active ??? lisinopril (PRINIVIL; ZESTRIL) tablet 40 mg Active ??? nitroglycerin (NITROSTAT) tablet 0.4 mg Active ??? aspirin tablet 325 mg Active Allergies Allergen Reactions ??? Sulfa Drugs ??? Latex Social History Smoking Status: Current Every Day Smoker Packs/Day: .5 Years: 30 Types: Cigarettes Smokeless Status: Never Used Alcohol Use: No Drug Use: No Sexual Activity: Yes Partners with: Male Family History Problem Relation Age of Onset ??? Cancer Maternal Grandmother laranyx ??? Cancer Maternal Grandfather lung ??? Diabetes Sister ??? Heart Failure Father 48 heart attack ??? Heart Failure Mother 63 heart attack ??? Hypercholesterolemia Mother ??? Hypertension Sister Review of Systems: Constitutional: denies recent significant weight loss HEENT: Denies headaches, vision or auditory changes Cardiovascular: Denies chest pain, orthopnea or palpitations Respiratory: Denies cough, hemoptysis. Oxygen dependent : No Gastrointestinal: + abdominal pain, no melena or hematemesis Genitourinary: denies hematuria, dysuria Musculoskeletal: denies muscle weakness Endocrine: Denies diabetes mellitus or thyroid issues Allergic / Immuno: Normal Neuro / Psych: denies depression, SI/SA Skin: denies open wounds, skin infections Functional Health Status prior to surgery : Independent- The patient does not require assistance from another person for any ADLs.. Physical Examination: BP 137/83 Pulse 104 Temp 98.1 ??F Resp 18 Wt 227 lb (102.967 kg) BMI 40.21 kg/m2 HEENT: Normocephalic, atraumatic, no evidence of abnormalities. PEERL, EOM- intact, sclera clear Lungs: Clear to ascultation Heart: Regular rate and rythm. Abdomen: +tenderness in the RUQ, No masses, organomegally,rebound, guarding, rigidity Extremities: Symmetrical, equal, no signs of deformities. Peripheral pusles intact. No edema. Neurologic: Alert, oriented, cranial nerves 2-12 intact. Station, gait, coordination intact. Skin: No rashes. No skin lesions. Risk / Benefits Risks and benefits were reviewed with patient including but not limited to , enteral leaks, hemorrhage, damage to organs, infections, bile leaks, additional post operative procedures, non resolution or incomplete resolution of current symptoms, chronic pain among others. Questions were answered. Impression: RUQ abdominal pain Plan: 1. RUQ Abdominal pain: symptoms appear related to symptomatic cholelithiasis and acute cholecystitis. Await RUQ U/S results. laparoscopic cholecystectomy with cholangiogram 2. CAD: hx of prior VT s/p stent placement, was previously on antiplatement agent for about a year after stent placement Noah Alvares MD 08/08/2013 [employer]ING [employer]HE [employer] * Mark Rose MD - 08/08/2013 7:55 AM CST [facility] CONSULTATION REPORT PATIENT: POOL RODRIGUEZ MR#: [id number] ADMIT DATE: 08/07/2013 CSN: [id number] CONSULT DATE: : 1965 ATTENDING PHYS: KATHLEEN MUSTAFA ROOM: 0518 CONSULTING PHYSICIAN: MARK ROSE MD HISTORY OF PRESENT ILLNESS: The patient is a 47-year-old white female, who is seen in consultation for elevated liver function tests. The patient was admitted to an outside hospital in [place], [place] 9 days prior. At the time of her presentation, she was having postprandial right upper quadrant abdominal pain and chest pain. Upon admission to the outside hospital, she reportedly had elevated liver function tests. She was told during that hospitalization, she had a gallbladder disorder, however, her gallbladder was not removed, as a result still concern of a possible primary liver disorder. She was discharged home and was recommended to see Dr. Hernan Langley as an outpatient. Due to persistent symptoms, she came to [facility] and was admitted. She continues to have postprandial right upper quadrant abdominal pain. She has had nausea, but denies emesis. There is no associated weight loss. She denies any significant change in her stool or urine color. There is no associated jaundice. She has had 2 weeks of new onset pruritus particularly in the lower extremities. Upon admission, she was noted to have an alkaline phosphatase of 179, ALT 915, AST 355. Liver function tests from July 01 showed a mild minimally elevated ALT of 54 and AST of 42. Liver function tests in February 2013 were normal. She reportedly had elevated liver function tests approximately 4 years ago when she was taking Rebif for multiple sclerosis. Per her report, the LFT is normalized when the medication was discontinued. She has not had a prior liver biopsy. She does not drink alcohol. Her Lipitor was held since her last hospitalization. PAST MEDICAL HISTORY: 1. Coronary artery disease status post myocardial infarction in 2010 status post prior coronary artery stent. 2. Hypertension. 3. Hyperlipidemia. 4. Multiple sclerosis diagnosed in 2005. 5. Laparoscopic gastric band in 2009 performed at the [facility]. 6. Tonsillectomy. 7. Migraines. 8. Hypothyroidism. 9. Anxiety/depression. FAMILY HISTORY: Negative for liver disease. SOCIAL HISTORY: She smokes 1/3rd of a pack per day. She denies alcohol. REVIEW OF SYSTEMS: As mentioned in the HPI, otherwise negative. PHYSICAL EXAMINATION: VITAL SIGNS: Temperature 98.1, blood pressure 137/83, heart rate 104, saturating 95% on room air. HEENT: PERRLA. Positive EOM. No scleral icterus. CARDIOVASCULAR: Regular rate and rhythm. LUNGS: Clear to auscultation bilaterally. ABDOMEN: Soft. Positive mild to moderate epigastric and right upper quadrant tenderness. Positive Aguirre sign. No hepatosplenomegaly. No palpable masses. EXTREMITIES: No clubbing, cyanosis, or edema. IMPRESSION AND RECOMMENDATIONS: Abnormal liver function tests. I suspect she has a primary gallbladder disorder. Her CT scan is notable for a distended gallbladder. Per the patient's report, she had a ultrasound at the outside hospital that showed gallbladder wall thickening. Her symptoms are most consistent with acute cholecystitis. The common bile duct does not appear to be distended on CT scan. Her bilirubin is normal. This makes a retained stone in the common bile duct less likely. A right upper quadrant ultrasound is scheduled for this morning. I would recommend surgical consultation for gallbladder removal with intraoperative cholangiogram. I would keep her n.p.o. at this point. I would also check an SONJA, AMA, ASMA, and a viral hepatitis panel. Primary liver disorder seems less likely. Mark Rose MD PBM/MODL #: [id number] cc: Sveta Terry MD NING [employer]HE [employer]PER[employer] * Mark Rose MD - 08/08/2013 7:16 AM CST Full consult dictated 47 y/o WF w/ post prandial RUQ pain and CP with nausea. Elevated LFTs. CT shows dilated GB, nml CBD. Imp: Acute Cholecystitis Agree w/ RUQ US Needs surgical consultation for GB removal with IOC Keep NPO Check AMA, SONJA, ASMA, Viral hep panel but seems unlikely to have a primary liver disorder [employer]HE [employer] documented in this encounter OR Notes * Operative - Mark Rose MD - 08/12/2013 9:34 PM CST [facility] OPERATIVE REPORT PATIENT: : POOL RODRIGUEZ MR#: [id number] ADMIT DATE: 08/07/2013 CSN: [id number] DATE OF SURGERY: : 1965 PHYSICIAN: Mark Rose MD ROOM: 0518 PREOPERATIVE DIAGNOSIS: POSTOPERATIVE DIAGNOSIS: PROCEDURES PERFORMED: Endoscopic retrograde cholangiopancreatography with biliary sphincterotomy. SURGEON: Mark Rose M.D. MEDICATIONS: MAC. FINDINGS: The patient was consented of the risks, benefits, and alternatives to the procedure. INDICATIONS FOR PROCEDURE: The patient is a 47-year-old white female who presents today for ERCP. She was admitted with acute cholecystitis. She is noted to have elevated liver function tests. She underwent an intraoperative cholangiogram at the time of her cholecystectomy. This demonstrated multiple retained stones in the common bile duct. INFORMED CONSENT: PROCEDURE: She was placed in prone position. She was adequately sedated throughout the entire procedure with the assistance of the Anesthesia Department. A duodenoscope was placed into the oropharynx and under direct visualization passed down into the stomach. There was a significant amount of retained food in the stomach obscuring view of approximately 50% of the stomach. Fortunately, the scope was able to pass through the pylorus and down into the second portion of the duodenum. A normal-appearing ampulla was visualized. A 44 [employer] sphincterotome was used to cannulate the ampulla. Initially, the wire preferentially passed into the pancreatic duct. No pancreatic duct injections were performed. The sphincterotome was repositioned. The wire was then passed into the proximal common bile duct. Cholangiogram initially demonstrated a small filling defect in the distal common bile duct suspicious for a tiny stone. A biliary sphincterotomy was effected to the level of the duodenal wall with exposure of biliary epithelium. Bile was spontaneously passing from the ampulla but no stone fragments were visualized. The sphincterotome was removed. The balloon catheter was then exchanged over the wire. This was insufflated to 12 mm. A balloon pressure cholangiogram demonstrated a normal caliber common bile duct as well as normal intrahepatic right and left ductal systems. No filling defects were identified. Multiple balloon sweeps were performed. No stone fragments were removed. A repeat cholangiogram at the end of the procedure showed a normal biliary system. IMPRESSION: 1. Normal common bile duct. 2. There are no residual stones. There may have been 1 small fragment that spontaneously passed at the end of the procedure. There are no filling defects. The common bile duct has been swept and is clear. The patient be monitored. If she is not having significant pain, she could be discharged home later this afternoon or early tomorrow. I would recommend repeat liver function tests in 2 weeks. ESTIMATED BLOOD LOSS: COMPLICATIONS: CONDITION: DISPOSITION: Mark Rose MD [facility] #: [id number] cc: MD Sveta Leger MD NING LATHE OPERATOR [employer] * Operative - Noah Alvares MD - 08/10/2013 9:50 AM CST [facility] Operative Report OPERATIVE REPORT PATIENT:Pool Rodriguez MR#: [id number] Relationship Account Type Home Phone POOL RODRIGUEZ - 101* [phone] / [place] [address]* Self P/F [phone] Employer Work Phone [employer] [address] / [place] [id number] ADMIT DATE: 08/07/2013 12:51 PM ACCT#: DATE OF SURGERY: 08/10/2013 : 1965 PHYSICIAN: Noah Alvares MD 47 yrs Body mass index is 40.21 kg/(m^2). PREOPERATIVE DIAGNOSES: symptomatic cholelithiasis, acute cholecystitis Morbid Obesity, Body mass index is 40.21 kg/(m^2). Past Medical History Diagnosis Date ??? Heart attack 2010 ??? HTN (hypertension) ??? Hyperlipemia ??? Multiple sclerosis 2006 ??? H/O heart artery stent x1 ??? H/O laparoscopic adjustable gastric banding 2009 ??? S/P tonsillectomy ??? Migraine ??? Hypothyroid ??? Depressive disorder, not elsewhere classified ??? Generalized anxiety disorder POSTOPERATIVE DIAGNOSES: SAME and choledocholithiasis PROCEDURES PERFORMED: 1. Laparoscopic Cholecystectomy 2. Intraoperative cholangiogram SURGEON: Noah Alvares MD JOB PRINTER APPRENTICE: Beverley Ring RN ANESTHESIA: General endotracheal. PROCEDURE: The patient was brought to the operating suite. Patient was placed under general endotracheal anesthesia. Patient was prepped and draped in the sterile fashion. Two periumbilical 5mm incisions were made with a 15-blade scalpel and an optical 5-mm port was placed under direct vision without difficulty. The peritoneal cavity was insufflated with CO2 gas to 15 mmHg pressure. A 45-degree angled laparoscope was placed into the peritoneal cavity. There was no blood, fluid, or evidence of intra-abdominal injury. A second 5-mm port was placed in the subxiphoid position. Two additional 5mm ports were placed in the second periumbilical incision alongside the camera port and one additional 5mm port placed in the right flank. The patient was positioned in steep reverse Trendelenburg. The fundus was grasped and retracted caudally. There were significant omental adhesions that were attached to the fundus. The gallbladder was thickened and inflamed. The omental attachments were taken down using cautery. The infundibulum was grasped and retracted caudally and towards the right lower quadrant to expose Calot's triangle. There were significant adhesions, iflammation and scar tissue that prevented clear visualization of the cystic structures. A careful and tedious dissection was necessary. After much dissection, the cystic duct and artery were dissected bluntly and individually skeletonized to obtain the critical view. A clip was placed proximally on the cystic duct. A lissette was madewith scissors. A cholangiogram was then performed. An tello clamp with a 5 swiss catheter was placed into the lumen of the cystic duct. A cholangiogram was then performed. The proximal and distal biliary ducts were noted, patent into the duodenum. The cystic duct was noted. There were several filling defects that were suspicious for common bile duct stones. Using saline, multiple flushes into the bile duct were attempted. Upon completion, there were 2-3 filling defects left. Due to the inflamed condition of the cystic duct and surrounding structures, it was decided to not pursue any further m aneuvers to extract the biliary stones. The patient would need a post operative ERCP. Three clips were placed on each of these structures, two towards the portal triad and one at the interface with the gallbladder. The cystic duct and artery were then sharply transected using scissors. An L shaped electrocautery instrument was used to dissect the gallbladder from the gallbladder fossa and liver bed. The L shaped electrocautery instrument was used to finish dissecting the gallbladder free from the liver bed. The gallbladder was grasped at the neck and placed in an endocatch bag and removed from the abdomen via the umbilical incision. The liver bed, cystic duct and artery stumps were visualized for leakage of bile or blood. There was none. The fascia of the 5mm trocar site where the gallbladder was extracted was closed with a 0 Vicryl suture in a transfascial fashion. The trocars were removed and the pneumoperitoneum was expelled. The incisions were closed with running subcuticular Vicryl sutures. Sterile dressing was placed. The patient tolerated the procedure well and was taken to recovery room in stable condition EBL: 25ml FINDINGS: acutely / chronically inflamed gallbladder, thickened wall, no evidence of bile or blood leakage following gallbladder removal, cholangiogram demonstrated patent proximal and distal biliarytree, some filling defects noted, non obstructive COMPLICATIONS: None. Noah Alvares MD [employer]ING LATHE [employer]PERATOR [employer] documented in this encounter ED Notes * Dana Zimmer, - 08/07/2013 12:52 PM CST Provider contact with the patient: 08/07/2013 12:52 Pool Cerna Michael [id number] [facility] History Chief Complaint Patient presents with ??? Liver Problem states was recently admitted to hospital and was told my liver enzymes are high co nausea and abdpain and brown urine The above narrative is pulled from the triage note. It is not from the author of this note. HPI 12:52 PM Pool Rodriguez, a 47 y.o. female with a past medical history that includes--multiple sclerosis, CAD s/p VT, s/p coronary stent placement, hypertension, hyperlipidemia, hypothyroid, s/p lap gastric band--presents to the ER with c/o brown-colored urine. Pt states she was in [place], [place] last week visiting friend, began having upper abdominal pain and vomiting. Checked her blood pressure, which was high, and given her h/o VT, she went to the hospital. Admitted for 5 days, plan was for cholecystectomy, but did not have operation due to elevated LFTs. Was told to watch out for discolored urine, which she first noticed this morning. She called [facility] and was told to come in to the ER. She admits to mild abdominal pain at this time, mild nausea. No vomiting. No chest pain or shortness of breath. NPO since yesterday. No other complaints or modifying factors at this time. PCP: Sveta Terry Past Medical History Diagnosis Date ??? Heart attack 2010 ??? HTN (hypertension) ??? Hyperlipemia ??? Multiple sclerosis 2005 ??? H/O heart artery stent x1 ??? H/O laparoscopic adjustable gastric banding 2009 ??? S/P tonsillectomy ??? Migraine ??? Hypothyroid ??? Depressive disorder, not elsewhere classified ??? Generalized anxiety disorder Past Surgical History Procedure Date ??? Coronary stent placement ??? Tonsillectomy ??? Sys lap band 10.0 ??? Tubal ligation, laparoscopic Family History Problem Relation Age of Onset ??? Cancer Maternal Grandmother laranyx ??? Cancer Maternal Grandfather lung ??? Diabetes Sister ??? Heart Failure Father 48 heart attack ??? Heart Failure Mother 63 heart attack ??? Hypercholesterolemia Mother ??? Hypertension Sister History Social History ??? Marital Status: Spouse Name: N/A Number of Children: 2 ??? Years of Education: N/A Occupational History ??? [employer] Social History Main Topics ??? Smoking [...] Systems Constitutional: Negative. Negative for fever and diaphoresis. HENT: Negative. Negative for neck pain. Eyes: Negative. Respiratory: Negative. Negative for shortness of breath. Cardiovascular: Negative. Negative for chest pain, palpitations and leg swelling. Gastrointestinal: Positive for nausea and abdominal pain. Negative for vomiting, diarrhea, constipation, blood in stool and melena. Genitourinary: Negative for dysuria, urgency, frequency and flank pain. Brown colored urine. Musculoskeletal: Negative. Negative for back pain. Skin: Negative. Neurological: Negative. Negative for sensory change, speech change and headaches. Endo/Heme/Allergies: Negative. Psychiatric/Behavioral: Negative. Negative for memory loss. All other systems reviewed and are negative. Physical Exam BP 143/101 Pulse 72 Temp 98.6 ??F Resp 16 Ht 1.6 m (5' 3 ) Wt 102.967 kg (227 lb) BMI 40.21 kg/m2 SpO2 98% Physical Exam Nursing note and vitals reviewed. Constitutional: She is oriented to person, place, and time and well-developed, well-nourished, and in no distress. She appears not jaundiced. Non-toxic appearance. No distress. Comfortable appearing obese white female. HENT: Head: Normocephalic and atraumatic. Mouth/Throat: Oropharynx is clear and moist. Eyes: Conjunctivae normal and EOM are normal. Pupils are equal, round, and reactive to light. Neck: Normal range of motion. Neck supple. Cardiovascular: Normal rate, regular rhythm, normal heart sounds and intact distal pulses. Pulmonary/Chest: Effort normal and breath sounds normal. No respiratory distress. She has no wheezes. She exhibits no tenderness. Abdominal: Soft. Bowel sounds are normal. She exhibits no distension. There is tenderness. There isno rebound and no guarding. Mild RUQ tenderness to palpation. Musculoskeletal: Normal range of motion. She exhibits no edema and no tenderness. Neurological: She is alert and oriented to person, place, and time. GCS score is 15. Skin: Skin is warm and dry. She is not diaphoretic. Psychiatric: Mood and affect normal. Medications No current outpatient prescriptions on file. Procedures Procedures EKG Interpretation Clinical Impression: non-specific EKG. Rhythm: normal sinus. Rate: normal. Heart rate:75. Ectopy: none. [place]: normal. ST Segment Comments: NSTE EKG date completed: 08/07/2013 EKG time completed:1226 ECG Rhythm Interpretation ECG Rhythm: normal sinus. ECG Rate: normal. Lab Interpretation Oxygen Saturation Interpretation The oxygen saturation level is: 98%. The patient was on Room Air for the saturation measurement. Measurement frequency: Spot Check. Oxygen saturation interpretation is Normal. Intervention(s) used: None. Results for orders placed during the hospital encounter of 08/07/13 CBC W AUTO DIFFERENTIAL Component Value Range WBC 6.4 4.4-10.7 x10^9/L RBC 5.38 (*) 3.80-5.20 x10^12/L Hgb 15.9 (*) 12.0-15.6 gm/dL HCT 46.2 (*) 35.9-45.5 % MCV 85.9 80.7-98.3 fl MCH 29.6 26.7-34.0 pg MCHC 34.4 30.8-35.9 gm/dL Plt Ct 236 153-416 x10^9/L RDW-CV 16.4 (*) 12.1-14.9 % MPV 10.8 9.4-12.9 fl Neutro 56.3 44.0-73.0 % Lymph 33.1 20.0-43.0 % Wayne 8.0 5.0-13.0 % Eos 1.4 0.0-6.0 % Baso 0.9 0.0-2.0 % Immature Grans 0.3 0-1 % Neutro Abs 3.60 2.01-7.14 x10^9/L Lymph Abs 2.12 1.07-3.94 x10^9/L Wayne Abs 0.51 0.26-1.07 x10^9/L Eosin Abs 0.09 0-0.47 x10^9/L Baso Abs 0.06 0-0.08 x10^9/L Immature Grans Abs 0.02 0.00-0.06 x10^9/L COMPREHENSIVE METABOLIC PANEL Component Value Range Glucose 93 74-106 mg/dL Sodium 138 136-145 mmol/L Potassium 4.1 3.5-5.1 mmol/L Chloride 109 (*) 98-107 mmol/L CO2 24 22-31 mmol/L Calcium 8.7 8.5-10.1 mg/dL Anion Gap 5 5-15 mmol/L BUN 16 7-21 mg/dL Creatinine 0.55 0.50-1.30 mg/dL eGFR by MDRD >60 >60 mL/min/1.73m2 eGFR by MDRD AFR AMER >60 >60 mL/min/1.73m2 Alk Phos 179 (*) 38-126 U/L ALT/SGPT 915 (*) 12-78 U/L AST/SGOT 355 (*) 5-40 U/L Protein Total 8.3 (*) 6.4-8.2 gm/dL Albumin 3.7 3.4-5.0 gm/dL Bili Total 1.0 0.2-1.0 mg/dL URINALYSIS ROUTINE W/REFLEX TO CULTURE Component Value Range Color UA Dark Yellow Straw, Yellow, Dark Yellow Clarity UA Turbid Specific Dana UA >1.045 (*) 1.005-1.030 pH UA 5.0 5.0-8.0 pH Protein UA Negative Negative Blood UA Negative Negative Leukocyte UA Negative Negative Nitrite UA Negative Negative Glucose UA Negative Negative Ketone UA Negative Negative Bili UA Negative Negative Urobilinogen UA 1.0 0.1-1.0 EU/dL WBC UA Auto 2-5 0-2, 2-5 #/hpf RBC UA Auto 0-2 0-2, 2-5 #/hpf Epithelial Cell UA Auto 5-10 (*) 0-2, 2-5 #/hpf Bacteria UA Auto 1+ (*) None seen Hyaline Casts UA Auto 0-2 0-2 #/lpf Reflex Status Culture to follow TROPONIN I Component Value Range Troponin I <0.015 0.000-0.049 ng/mL TROPONIN I Component Value Range Troponin I <0.015 0.000-0.049 ng/mL LIPASE BLOOD Component Value Range Lipase 162 73-393 U/L HCG URINE QUALITATIVE Component Value Range HCG Qual Urine Negative Negative TROPONIN I Component Value Range Troponin I <0.015 0.000-0.049 ng/mL CBC W AUTO DIFFERENTIAL Component Value Range WBC 6.5 4.4-10.7 x10^9/L RBC 4.71 3.80-5.20 x10^12/L Hgb 13.9 12.0-15.6 gm/dL HCT 41.1 35.9-45.5 % MCV 87.3 80.7-98.3 fl MCH 29.5 26.7-34.0 pg MCHC 33.8 30.8-35.9 gm/dL Plt Ct 205 153-416 x10^9/L RDW-CV 16.2 (*) 12.1-14.9 % MPV 11.3 9.4-12.9 fl Neutro 48.3 44.0-73.0 % Lymph 37.6 20.0-43.0 % Wayne 11.0 5.0-13.0 % Eos 2.0 0.0-6.0 % Baso 0.9 0.0-2.0 % Immature Grans 0.2 0-1 % Neutro Abs 3.12 2.01-7.14 x10^9/L Lymph Abs 2.43 1.07-3.94 x10^9/L Wayne Abs 0.71 0.26-1.07 x10^9/L Eosin Abs 0.13 0-0.47 x10^9/L Baso Abs 0.06 0-0.08 x10^9/L Immature Grans Abs 0.01 0.00-0.06 x10^9/L COMPREHENSIVE METABOLIC PANEL Component Value Range Glucose 85 74-106 mg/dL Sodium 139 136-145 mmol/L Potassium 3.7 3.5-5.1 mmol/L Chloride 108 (*) 98-107 mmol/L CO2 26 22-31 mmol/L Calcium 8.1 (*) 8.5-10.1 mg/dL Anion Gap 5 5-15 mmol/L BUN 12 7-21 mg/dL Creatinine 0.54 0.50-1.30 mg/dL eGFR by MDRD >60 >60 mL/min/1.73m2 eGFR by MDRD AFR AMER >60 >60 mL/min/1.73m2 Alk Phos 140 (*) 38-126 U/L ALT/SGPT 660 (*) 12-78 U/L AST/SGOT 219 (*) 5-40 U/L Protein Total 6.8 6.4-8.2 gm/dL Albumin 3.1 (*) 3.4-5.0 gm/dL Bili Total 1.0 0.2-1.0 mg/dL CT ABDOMEN AND PELVIS WITH IV CONTRAST Final Result: CT abdomen: CT examination of the abdomen shows a laparoscopic gastric esophageal band in place. Liver and spleen are normal in size and shape. No focal mass identified. Gallbladder is mildly distended. Bile ducts are not dilated. No discrete abnormality identified in the pancreas. Kidneys are normal in size and shape without obstruction or calcified stone. There is enlargement of the right adrenal gland with relatively low-density. This may represent right adrenal adenoma. Followup required. Left adrenal is normal in size. There is no bowel obstruction or perforation. There is no ascites or loculated peritoneal fluid. CT pelvis: CT examination of the pelvis shows no mass lesion or fluid collection. There is no evidence of colitis or diverticulitis. Appendix is normal in caliber. Conclusion: 3.6 x 2.8 cm low-density mass right adrenal gland. This may represent an adenoma. Followup required. Gastroesophageal band in place. No bowel obstruction or perforation. No urinary obstruction or calcified stone. No other focal findings. No acute abnormality identified. Progress Notes Initial Impression: RLQ pain. Initial plan: Administer Dilaudid 1mg IV, Zofran 4mg IV; check WBC, H&H, electrolytes, LFTs, renal function, U/A, lipase, RUQ US, troponin, EKG and reassess. 1321: RN reports no ultrasound available today. US RUQ study cancelled and CT abd/pelvis ordered. 1500: radiologists interpretation of CT abd/pelvis resulted -- No acute abnormalities (see officialradiologist interpretation for details). AlkPhos: 179, ALT 915, AST 355, Tbili 1.0 Pt thinks her LFT s were closer to 1300 last week. 1540: PCP paged. 1552: All pertinent aspects of case discussed with Dr. Sveta Terry (PCP). Recommends/requests admitting patient to [facility] for GB ultrasound and consult to Dr. Rose for GI. Agrees with plan and accepts admission. 1555: IPC paged. 1559: All pertinent aspects of case discussed with Dr. Mustafa ([facility]). Agrees with plan and accepts admission. Care is transferred to the admitting physician at this time. The patient understand(s) and agree(s) with the plan. Interim orders written by undersigned. ED Course Medical Decision Making I have reviewed the: Previous Chart, Nursing Notes and Vitals. I have interpreted the following results: Labs, 12 Lead EKG, Rhythm Strip and Oxygen Saturation. I have discussed the case with PCP, Admitting Physician and Hospitalist. Orders Placed This Encounter ??? COMPRESSION SLEEVE SEQUEN KNEE ??? CULTURE URINE ??? CT ABDOMEN AND PELVIS WITH IV CONTRAST ??? US ABD LIMITED (RUQ) ??? CBC W AUTO DIFFERENTIAL ??? COMPREHENSIVE METABOLIC PANEL ??? URINALYSIS ROUTINE W/REFLEX TO CULTURE ??? TROPONIN I ??? LIPASE BLOOD ??? HCG URINE QUALITATIVE ??? TROPONIN I ??? CBC W AUTO DIFFERENTIAL ??? COMPREHENSIVE METABOLIC PANEL ??? SONJA BLOOD SCREEN W/REFLEX TITER ??? F-ACTIN (SMOOTH MUSCLE) ANTIBODY W REFLEX TITER ??? MITOCHONDRIAL ANTIBODY SCREEN ??? HEPATITIS SCREEN ACUTE ??? CBC W AUTO DIFFERENTIAL ??? COMPREHENSIVE METABOLIC PANEL ??? GASTROENTEROLOGY CONSULT ??? IP CONSULT TO GENERAL SURGERY ??? EKG 12-LEAD ??? 0.9% NaCl injection 1-10 mL ??? DISCONTD: ondansetron (ZOFRAN) injection 4 mg ??? ondansetron (ZOFRAN) injection 4 mg ??? HYDROmorphone (DILAUDID) injection 1 mg ??? iohexol (OMNIPAQUE 350) contrast ??? iohexol (OMNIPAQUE 350) contrast 50 mL ??? DISCONTD: lisinopril (PRINIVIL; ZESTRIL) tablet 20 mg ??? metoprolol tartrate IR (LOPRESSOR) tablet 25 mg ??? HYDROmorphone (DILAUDID) injection 0.5 mg ??? ondansetron (ZOFRAN) injection 4 mg ??? HYDROmorphone (DILAUDID) injection 0.5 mg ??? 0.9% NaCl infusion ??? levothyroxine (SYNTHROID) tablet 88 mcg ??? lisinopril (PRINIVIL; ZESTRIL) tablet 40 mg ??? nitroglycerin (NITROSTAT) tablet 0.4 mg ??? aspirin tablet 325 mg Diagnosis: Final diagnoses: Acute liver disease Abdominal pain (Primary) Disposition: Admit to General Medicine I have reviewed the information recorded by the scribe and agree with its accuracy and contents--Dr. Dana Zimmer 08/08/2013 12:08 PM Transcribed by Stevenson Goldstein--acting scribe on behalf of Dr. Zimmer 08/07/2013 4:01 PM NING LATHE OPERATOR [employer]OM[employer] documented in this encounter Miscellaneous Notes * Miscellaneous Scans - Document, Scanned - 09/08/2013 9:15 AM CST NING LATHE OPERATOR [employer]OM[employer] * Miscellaneous Scans - Document, Scanned - 08/18/2013 4:31 PM CST NING LATHE OPERATOR [employer]OM[employer] * Miscellaneous Scans - Document, Scanned - 08/15/2013 5:47 PM CST NING LATHE OPERATOR [employer]OMATIC * Miscellaneous Scans - Document, Scanned - 08/15/2013 5:47 PM CST NING LATHE OPERATOR [employer]OMATIC * Miscellaneous Scans - Document, Scanned - 08/15/2013 5:47 PM CST NING LATHE OPERATOR [employer]OMATIC * Miscellaneous Scans - Document, Scanned - 08/15/2013 5:47 PM CST NING LATHE OPERATOR [employer]OMATIC documented in this encounter Plan of Treatment Upcoming Encounters Date Type Department Care Team (Late st Contact Info) Description 09/27/2024 2:20 PM SPINNING LATHE OPERATOR [employer]OMATIC Office Visit [facility] [address] [facility] [address] [place] [id number] [place] [address] [facility] [address] [place] [id number] 09/28/2024 1:00 PM SPINNING LATHE OPERATOR [employer]OMATIC Office Visit [facility] - [address] [place] [address] [place] [address] [place] [address] Scheduled Orders Name Type Priority Associated Diagnoses Orde r Schedule ERCP GI Routine ONCE for 1 Occ urrences starting 08/12/2013 until 08/12/2013 ERCP GI Routine ONCE for 1 Occ urrences starting 08/12/2013 until 08/12/2013 documented as of this encounter Procedures Procedure Name Priority Date/Time Associated Diagnosis Comments COMPREHENSIVE METABOLIC PANEL AM Draw 08/14/2013 6:22 AM SPINNING LATHE OPERATOR [employer]OMATIC BASIC METABOLIC PANEL (CALCIUM TOTAL) AM Draw 08/13/2013 5:02 AM SPINNING LATHE OPERATOR AUTOMATIC HEPATIC FUNCTION PANEL AM Draw 08/13/2013 5:02 AM SPINNING LATHE OPERATOR AUTOMATIC ERCP 08/12/2013 2:55 PM SPINNING LATHE OPERATOR AUTOMATIC Special Needs ROOM 518 SET UP WITH JIMMY ALFONSO ERCP CBD ONLY Routine 08/12/2013 1:20 PM SPINNING LATHE OPERATOR [employer]OMATIC Pain CBC W AUTO DIFFERENTIAL AM Draw 08/11/2013 4:23 AM SPINNING LATHE OPERATOR [employer]OMATIC COMPREHENSIVE METABOLIC PANEL AM Draw 08/11/2013 4:23 AM SPINNING LATHE OPERATOR [employer]OMATIC TROPONIN I STAT 08/10/2013 10:59 AM SPINNING LATHE OPERATOR AUTOMATIC CKMB STAT 08/10/2013 10:59 AM SPINNING LATHE OPERATOR AUTOMATIC EKG 12-LEAD Routine 08/10/2013 10:52 AM SPINNING LATHE OPERATOR AUTOMATIC Abdominal pain, acute XR CHOLANGIOGRAM OPERATIVE Routine 08/10/2013 9:10 AM SPINNING LATHE OPERATOR AUTOMATIC Pain in the abdomen PATHOLOGY TISSUE EXAM (STL) Routine 08/10/2013 8:00 AM SPINNING LATHE OPERATOR AUTOMATIC CBC W AUTO DIFFERENTIAL AM Draw 08/10/2013 4:24 AM SPINNING LATHE OPERATOR [employer]OMATIC Abdominal pain, acute Acute liver disease HTN (hypertension) Depressive Disorder, Not Elsewhere Classified Prediabetes Mixed hyperlipidemia Hypothyroidism COMPREHENSIVE METABOLIC PANEL AM Draw 08/10/2013 4:24 AM SPINNING LATHE OPERATOR [employer]OMATIC Abdominal pain, acute Acute liver disease HTN (hypertension) Depressive Disorder, Not Elsewhere Classified Prediabetes Mixed hyperlipidemia Hypothyroidism SMOOTH MUSCLE ANTIBODY W REFLEX TITER AM Draw 08/09/2013 10:45 AM SPINNING LATHE OPERATOR AUTOMATIC Acute liver disease MITOCHONDRIAL ANTIBODY SCREEN AM Draw 08/09/2013 10:45 AM SPINNING LATHE OPERATOR AUTOMATIC Acute liver disease SMOOTH MUSCLE ANTIBODY TITER Routine 08/09/2013 10:45 AM SPINNING LATHE OPERATOR AUTOMATIC Acute liver disease SONJA BLOOD SCREEN W/REFLEX TITER AM Draw 08/09/2013 10:45 AM SPINNING LATHE OPERATOR AUTOMATIC Acute liver disease HEPATITIS SCREEN ACUTE AM Draw 08/09/2013 10:45 AM SPINNING LATHE OPERATOR AUTOMATIC Acute liver disease COMPREHENSIVE METABOLIC PANEL AM Draw 08/09/2013 4:39 AM SPINNING LATHE OPERATOR AUTOMATIC Abdominal pain, acute Acute liver disease HTN (hypertension) Depressive Disorder, Not Elsewhere Classified Prediabetes Mixed hyperlipidemia Hypothyroidism CBC W AUTO DIFFERENTIAL AM Draw 08/09/2013 4:39 AM SPINNING LATHE OPERATOR AUTOMATIC Abdominal pain, acute Acute liver disease HTN (hypertension) Depressive Disorder, Not Elsewhere Classified Prediabetes Mixed hyperlipidemia Hypothyroidism US ABDOMEN LIMITED Routine 08/08/2013 10 :14 AM SPINNING LATHE OPERATOR AUTOMATIC Abdominal pain, acute CBC W AUTO DIFFERENTIAL AM Draw 08/08/2013 3:36 AM SPINNING LATHE OPERATOR AUTOMATIC Abdominal pain, acute Acute liver disease HTN (hypertension) Depressive Disorder, Not Elsewhere Classified Prediabetes Mixed hyperlipidemia Hypothyroidism COMPREHENSIVE METABOLIC PANEL AM Draw 08/08/2013 3:36 AM SPINNING LATHE OPERATOR AUTOMATIC Abdominal pain, acute Acute liver disease HTN (hypertension) Depressive Disorder, Not Elsewhere Classified Prediabetes Mixed hyperlipidemia Hypothyroidism TROPONIN I Timed 08/07/2013 9:52 PM SPINNING LATHE OPERATOR AUTOMATIC Abdominal pain, acute TROPONIN I Timed 08/07/2013 5:52 PM SPINNING LATHE OPERATOR AUTOMATIC URINALYSIS REFLEX MICROSCOPIC REFLEX CULTURE STAT 08/07/2013 5:46 PM SPINNING LATHE OPERATOR AUTOMATIC HCG URINE QUALITATIVE STAT 08/07/2013 5:46 PM SPINNING LATHE OPERATOR AUTOMATIC CULTURE URINE Routine 08/07/2013 5:46 PM [address]INNING LATHE OPERATOR AUTOMATIC CT ABDOMEN PELVIS W CONTRAST STAT 08/07/2013 2:55 PM SPINNING LATHE OPERATOR AUTOMATIC Abdominal pain, acute TROPONIN I STAT 08/07/2013 1:05 PM SPINNING LATHE OPERATOR AUTOMATIC CBC W AUTO DIFFERENTIAL STAT 08/07/2013 1:05 PM SPINNING LATHE OPERATOR AUTOMATIC COMPREHENSIVE METABOLIC PANEL STAT 08/07/2013 1:05 PM SPINNING LATHE OPERATOR AUTOMATIC LIPASE BLOOD STAT 08/07/2013 1:05 PM SPINNING LATHE OPERATOR AUTOMATIC EKG 12-LEAD STAT 08/07/2013 12:26 PM SPINNING LATHE OPERATOR AUTOMATIC Abdominal pain, acute documented in this encounter Results * (ABNORMAL) COMPREHENSIVE METABOLIC PANEL (08/14/2013 6:22 AM SPINNING LATHE OPERATOR AUTOMATIC) [facility] Glucose 105 74 - 106 mg/dL 08/14/2013 7:24 AM [facility] Sodium 140 136 - 145 mmol/L 08/14/2013 7:24 AM [facility] Potassium 3.6 3.5 - 5.1 mmol/L 08/14/2013 7:24 AM [facility] Chloride 108(H) 98 - 107 mmol/L 08/14/2013 7:24 AM [facility] CO2 25 22 - 31 mmol/L 08/14/2013 7:24 AM [facility] Calcium 8.5 8.5 - 10.1 mg/dL 08/14/2013 7:24 AM [facility] Anion Gap 7 5 - 15 mmol/L 08/14/2013 7:24 AM [facility] BUN 9 7 - 21 mg/dL 08/14/2013 7:24 AM [facility] Creatinine 0.52 0.50 - 1.30 mg/dL 08/14/2013 7:24 AM [facility] eGFR by MDRD >60 >60 mL/min/1.7 3m2 08/14/2013 7:24 AM [facility] eGFR by MDRD >60 >60 mL/min/1.7 3m2 08/14/2013 7:24 AM [facility] Alkaline Phosphatase 105 38 - 126 U/L 08/14/2013 7:24 AM SPINNING LATHE OPERATOR AUTOMATIC [facility] ALT 156(H) 12 - 78 U/L 08/14/2013 7:24 AM [facility] AST 31 5 - 40 U/L 08/14/2013 7:24 AM [facility] Protein Total 6.9 6.4 - 8.2 gm/dL 08/14/2013 7:24 AM [facility] Albumin 3.0(L) 3.4 - 5.0 gm/dL 08/14/2013 7:24 AM [facility] Bilirubin Total 0.5 0.2 - 1.0 mg/dL 08/14/2013 7:24 AM [facility] Blood BLOOD SPECIMEN / Unknown 08/14/2013 6:22 AM SPINNING LATHE OPERATOR [employer]OMATIC 08/14/2013 6:53 AM SPINNING LATHE OPERATOR AUTOMATIC Chacha Christina MD LAB - CHEMISTRY ORD ERABLES [facility] [address] [place] [address] * (ABNORMAL) HEPATIC FUNCTION PANEL (08/13/2013 5:02 AM SPINNING LATHE OPERATOR AUTOMATIC) Alkaline Phosphatase 108 38 - 126 U/L 08/13/2013 5:50 AM [facility] ALT 205(H) 12 - 78 U/L 08/13/2013 5:50 AM [facility] AST 42(H) 5 - 40 U/L 08/13/2013 5:50 AM [facility] Protein Total 6.6 6.4 - 8.2 gm/dL 08/13/2013 5:50 AM [facility] Albumin 3.0(L) 3.4 - 5.0 gm/dL 08/13/2013 5:50 AM [facility] Bilirubin Total 0.6 0.2 - 1.0 mg/dL 08/13/2013 5:50 AM [facility] Bilirubin Direct 0.3 0 - 0.3 mg/dL 08/13/2013 5:50 AM [facility] Blood BLOOD SPECIMEN / Unknown 08/13/2013 5:02 AM SPINNING LATHE OPERATOR AUTOMATIC 08/13/2013 5:22 AM SPINNING LATHE OPERATOR AUTOMATIC Vasyl Lyon MD LAB - CHEMISTRY ANUSHKA LOVE Performing Organization Address City/[facility]/ZIP Co de Phone Number [facility] [address] [place] [address] * (ABNORMAL) BASIC METABOLIC PANEL (CALCIUM TOTAL) (08/13/2013 5:02 AM SPINNING LATHE OPERATOR AUTOMATIC) Glucose 86 74 - 106 mg/dL 08/13/2013 5:50 AM [facility] Sodium 142 136 - 145 mmol/L 08/13/2013 5:50 AM [facility] Potassium 3.6 3.5 - 5.1 mmol/L 08/13/2013 5:50 AM [facility] Chloride 108(H) 98 - 107 mmol/L 08/13/2013 5:50 AM [facility] CO2 27 22 - 31 mmol/L 08/13/2013 5:50 AM [facility] Calcium 8.5 8.5 - 10.1 mg/dL 08/13/2013 5:50 AM [facility] Anion Gap 7 5 - 15 mmol/L 08/13/2013 5:50 AM [facility] BUN 8 7 - 21 mg/dL 08/13/2013 5:50 AM [facility] Creatinine 0.52 0.50 - 1.30 mg/dL 08/13/2013 5:50 AM [facility] eGFR by MDRD >60 >60 mL/min/1.7 3m2 08/13/2013 5:50 AM [facility] eGFR by MDRD >60 >60 mL/min/1.7 3m2 08/13/2013 5:50 AM [facility] Blood BLOOD SPECIMEN / Unknown 08/13/2013 5:02 AM SPINNING LATHE OPERATOR AUTOMATIC 08/13/2013 5:22 AM SPINNING LATHE OPERATOR AUTOMATIC Vasyl Lyon MD LAB - CHEMISTRY ANUSHKA LOVE Performing Organization Address [facility]/ZIP Co de Phone Number [facility] [address] [place] [address] * FL ERCP BILIARY ONLY (08/12/2013 1:20 PM SPINNING LATHE OPERATOR AUTOMATIC) Anatomical Region Laterality Modality Abdomen Radiographic Louann ging 08/12/2013 1:29 PM SPINNING LATHE OPERATOR AUTOMATIC Narrative 08/12/2013 2:59 PM SPINNING LATHE OPERATOR AUTOMATIC FLUOROSCOPIC ERCP COMPLETE INDICATION: Right upper quadrant [...] Mark Rose MD FLUOROSCOPY ORDERAB LES * (ABNORMAL) COMPREHENSIVE METABOLIC PANEL (08/11/2013 4:23 AM SPINNING LATHE OPERATOR AUTOMATIC) Glucose 87 74 - 106 mg/dL 08/11/2013 5:09 AM [facility] Sodium 139 136 - 145 mmol/L 08/11/2013 5:09 AM [facility] Potassium 3.9 3.5 - 5.1 mmol/L 08/11/2013 5:09 AM [facility] Chloride 107 98 - 107 mmol/L 08/11/2013 5:09 AM [facility] CO2 28 22 - 31 mmol/L 08/11/2013 5:09 AM [facility] Calcium 8.2(L) 8.5 - 10.1 mg/dL 08/11/2013 5:09 AM [facility] Anion Gap 4(L) 5 - 15 mmol/L 08/11/2013 5:09 AM SPINNING LATHE OPERATOR AUTOMATIC [facility] BUN 9 7 - 21 mg/dL 08/11/2013 5:09 AM [facility] Creatinine 0.63 0.50 - 1.30 mg/dL 08/11/2013 5:09 AM [facility] eGFR by MDRD >60 >60 mL/min/1.7 3m2 08/11/2013 5:09 AM [facility] eGFR by MDRD >60 >60 mL/min/1.7 3m2 08/11/2013 5:09 AM [facility] Alkaline Phosphatase 110 38 - 126 U/L 08/11/2013 5:09 AM [facility] ALT 329(H) 12 - 78 U/L 08/11/2013 5:09 AM [facility] AST 89(H) 5 - 40 U/L 08/11/2013 5:09 AM [facility] Protein Total 6.8 6.4 - 8.2 gm/dL 08/11/2013 5:09 AM [facility] Albumin 3.1(L) 3.4 - 5.0 gm/dL 08/11/2013 5:09 AM [facility] Bilirubin Total 0.6 0.2 - 1.0 mg/dL 08/11/2013 5:09 AM [facility] Blood BLOOD SPECIMEN / Unknown 08/11/2013 4:23 AM SPINNING LATHE OPERATOR AUTOMATIC 08/11/2013 4:41 AM [facility] Vasyl Lyon MD LAB - CHEMISTRY ANUSHKA LOVE [facility] Organization Address City/State/[facility] Co de Phone Number [facility] [address] [place] [address] * (ABNORMAL) CBC W AUTO DIFFERENTIAL (08/11/2013 4:23 AM [facility]) WBC 8.1 4.4 - 10.7 x10^9/L 08/11/2013 5:02 AM [facility] RBC 4.33 3.80 - 5.20 x10^12/L 08/11/2013 5:02 AM [facility] Hemoglobin 12.6 12.0 - 15.6 gm/dL 08/11/2013 5:02 AM [facility] Hematocrit 38.0 35.9 - 45.5 % 08/11/2013 5:02 AM [facility] MCV 87.8 80.7 - 98.3 fl 08/11/2013 5:02 AM [facility] MCH 29.1 26.7 - 34.0 pg 08/11/2013 5:02 AM [facility] MCHC 33.2 30.8 - 35.9 gm/dL 08/11/2013 5:02 AM [facility] Platelet Count 195 153 - 416 x10^9/L 08/11/2013 5:02 AM [facility] RDW-CV 15.5(H) 12.1 - 14.9 % 08/11/2013 5:02 AM [facility] MPV 11.5 9.4 - 12.9 fl 08/11/2013 5:02 AM [facility] Neutrophils % 57.0 44.0 - 73.0 % 08/11/2013 5:02 AM [facility] Lymphocytes % 33.5 20.0 - 43.0 % 08/11/2013 5:02 AM [facility] Monocytes % 8.4 5.0 - 13.0 % 08/11/2013 5:02 AM [facility] Eosinophils % 0.5 0.0 - 6.0 % 08/11/2013 5:02 AM [facility] Basophils % 0.4 0.0 - 2.0 % 08/11/2013 5:02 AM [facility] Immature Granulocytes 0.2 0 - 1 % 08/11/2013 5:02 AM [facility] Neutrophil Absolute 4.60 2.01 - 7.14 x10^9/L 08/11/2013 5:02 AM [facility] Lymphocytes Absolute 2.70 1.07 - 3.94 x10^9/L 08/11/2013 5:02 AM [facility] Monocytes Absolute 0.68 0.26 - 1.07 x10^9/L 08/11/2013 5:02 AM [facility] Eosinophils Absolute 0.04 0 - 0.47 x10^9/L 08/11/2013 5:02 AM [facility] Basophils Absolute 0.03 0 - 0.08 x10^9/L 08/11/2013 5:02 AM [facility] Immature Granulocytes Absolute 0.02 0.00 - 0.06 x10^9/L 08/11/2013 5:02 AM [facility] Blood BLOOD SPECIMEN / Unknown 08/11/2013 4:23 AM SPINNING LATHE OPERATOR [employer]OMATIC 08/11/2013 4:41 AM SPINNING LATHE OPERATOR [employer]OMATIC Vasyl Lyon MD LAB - HEMATOLOGY ORD ERABLES Performing Organization Address City/[facility] Co de Phone Number [facility] [address] [place] [address] * CKMB (08/10/2013 10:59 AM SPINNING LATHE OPERATOR AUTOMATIC) CK-MB 0.5 0.0 - 5.0 ng/mL 08/10/2013 11:40 AM SPINNING LATHE OPERATOR [employer]OMAT[employer] [facility] Blood BLOOD SPECIMEN / Unknown Venipuncture / Unknown 08/10/2013 10:59 AM SPINNING LATHE OPERATOR AUTOMATIC 08/10/2013 11:17 AM SPINNING LATHE OPERATOR AUTOMATIC Dax Lebron DO LAB - CHEMISTRY ANUSHKA LOVE Performing Organization Address [facility] de Phone Number [facility] [address] [place] [address] * TROPONIN I (08/10/2013 10:59 AM SPINNING LATHE OPERATOR AUTOMATIC) Troponin I <0.015 0.000 - 0.049 ng/mL 08/10/2013 11:26 AM SPINNING LATHE OPERATOR [employer]OMATIC [facility] Blood SERUM OR PLASMA SPECIMEN / Unknown 08/10/2013 10:59 AM SPINNING LATHE OPERATOR AUTOMATIC 08/10/2013 11:03 AM SPINNING LATHE OPERATOR AUTOMATIC Narrative [facility] - 08/10/2013 11:26 AM SPINNING LATHE OPERATOR AUTOMATIC Note: Diagnosis of myocardial infarction requires symptoms [...] as pulmonary embolism, renal failure and sepsis. Dax Lebron DO LAB - CHEMISTRY ANUSHKA LOVE Performing Organization Address [facility] Co de Phone Number [facility] [address] [place] [address] * EKG 12-LEAD (08/10/2013 10:52 AM SPINNING LATHE OPERATOR AUTOMATIC) Ventricular Rate 65 BPM [facility] Atrial Rate 65 BPM [facility] P-R Interval 176 ms [facility] QRS Duration ms 106 ms [facility] Q-T Interval ms 462 ms [facility] QTC Calculation (Bezet) 480 ms [facility] Calculated P [place] 43 degrees [facility] Calculated R [place] -14 degrees [facility] Calculated T [place] 17 degrees [facility] Interpretation EKG Normal sinus rhythm Prolonged QT Abnormal ECG Confirmed by LEIGH ANN SIMS MD ([id number]) on 08/10/2013 8:09:46 PM [facility] 08/10/2013 10:5 2 AM SPINNING LATHE OPERATOR [employer]OMATIC 08/10/2013 8:09 PM SPINNING LATHE OPERATOR AUTOMATIC Narrative [facility] - 08/10/2013 8:09 PM SPINNING LATHE OPERATOR [employer]OMATIC Procedure Note Document, Scanned - 08/10/2013 11:08 AM CST Transcriptions Document, Scanned - 08/10/2013 11:28 AM CST Document, Scanned - 08/10/2013 8:11 PM CST Dax Lebron DO ECG ORDERABLES [facility] * XR CHOLANGIOGRAM OPERATIVE (08/10/2013 9:10 AM SPINNING LATHE OPERATOR AUTOMATIC) Anatomical Region Laterality Modality Abdomen Radiographic Louann ging 08/10/2013 12:3 8 PM SPINNING LATHE OPERATOR AUTOMATIC Impressions 08/10/2013 2:00 PM SPINNING LATHE OPERATOR AUTOMATIC Small filling defects present on intraoperative cholangiogram. Edited by Genevieve Olmstead on 08/10/2013 12:58 PM Narrative 08/10/2013 2:00 PM SPINNING LATHE OPERATOR AUTOMATIC FLUOROSCOPY OR CHOLANGIOGRAM INDICATION: Abdominal pain. 51 [...] Alvares MD DIAGNOSTIC IMAGING O RDERABLES * GROSS + MICRO EXAM (STL) (08/10/2013 8:00 AM SPINNING LATHE OPERATOR AUTOMATIC) Case Report Surgical Pathology Report ? Case: [id number] ? -------- Authorizing Provider: ??Noah Alvares MD ?Ordering Provider: ?? oNah Alvares MD ? Ordering Location: ? [facility] ?Collected: ? 08/10/2013 ??8:00 AM ? Pathologist: ? Hero Villela MD ?Received: ?08/10/2013 11:08 AM ?Signed Out: ?08/12/2013 12:42 PM (Final) ? Specimen: ?Gallbladder ? 08/12/2013 12:42 PM SPINNING LATHE OPERATOR AUTOMATIC [facility] Final Diagnosis 1. ? Gallbladder, cholecystectomy: -- ? Cholecystitis, chronic, moderate -- ? Cholelithiasis [facility] 08/12/2013 12:42 PM SPINNING LATHE OPERATOR AUTOMATIC [facility] Clinical History PROCEDURE: Laparoscopic cholecystectomy 08/12/2013 12:42 PM SPINNING LATHE OPERATOR AUTOMATIC [facility] Gross Description Received in formalin in a container labeled Pool Rodriguez, gallbladder . ??The container holds a 9 x 4.5 x 4 cm intact gallbladder. ??The cystic duct is patent and unremarkable. ??The contents of the gallbladder and the container are strained yielding a few yellow minute firm fragments. ??The bile is yellow-green. ??The mucosa is green-dunaway and velvety. ??The wall of the gallbladder measures up to 0.2 cm in maximum thickness. ??Veterinary Surgery Technologist sections are submitted in a cassette labeled A1. DYT/[facility] 08/12/2013 12:42 PM SPINNING LATHE OPERATOR AUTOMATIC [facility] Microscopic Description Microscopic examination supports the diagnosis. /scs /[facility] 08/12/2013 12:42 PM SPINNING LATHE OPERATOR AUTOMATIC [facility] Synoptic Report 08/12/2013 12:42 PM [facility] Pathology/Cytolo gy ENTIRE GALLBLADDER / Unknown 08/10/2013 8:00 AM SPINNING LATHE OPERATOR AUTOMATIC 08/10/2013 11:08 AM SPINNING LATHE OPERATOR AUTOMATIC Noah Alvares MD LAB - PATHOLOGY/CYTO LOGY ORDERABLES [facility] [address] [place] [address] * (ABNORMAL) COMPREHENSIVE METABOLIC PANEL (08/10/2013 4:24 AM SPINNING LATHE OPERATOR AUTOMATIC) Glucose 113(H) 74 - 106 mg/dL 08/10/2013 5:21 AM [facility] Sodium 141 136 - 145 mmol/L 08/10/2013 5:21 AM [facility] Potassium 3.9 3.5 - 5.1 mmol/L 08/10/2013 5:21 AM [facility] Chloride 110(H) 98 - 107 mmol/L 08/10/2013 5:21 AM [facility] CO2 26 22 - 31 mmol/L 08/10/2013 5:21 AM [facility] Calcium 8.5 8.5 - 10.1 mg/dL 08/10/2013 5:21 AM [facility] Anion Gap 5 5 - 15 mmol/L 08/10/2013 5:21 AM [facility] BUN 10 7 - 21 mg/dL 08/10/2013 5:21 AM [facility] Creatinine 0.51 0.50 - 1.30 mg/dL 08/10/2013 5:21 AM [facility] eGFR by MDRD >60 >60 mL/min/1.7 3m2 08/10/2013 5:21 AM [facility] eGFR by MDRD >60 >60 mL/min/1.7 3m2 08/10/2013 5:21 AM [facility] Alkaline Phosphatase 133(H) 38 - 126 U/L 08/10/2013 5:21 AM [facility] ALT 461(H) 12 - 78 U/L 08/10/2013 5:21 AM [facility] AST 135(H) 5 - 40 U/L 08/10/2013 5:21 AM [facility] Protein Total 7.4 6.4 - 8.2 gm/dL 08/10/2013 5:21 AM [facility] Albumin 3.2(L) 3.4 - 5.0 gm/dL 08/10/2013 5:21 AM [facility] Bilirubin Total 0.8 0.2 - 1.0 mg/dL 08/10/2013 5:21 AM [facility] Blood BLOOD SPECIMEN / Unknown 08/10/2013 4:24 AM [facility] [employer] [facility] [employer] 08/10/2013 4:49 AM [employer] Vasyl Lyon MD LAB - CHEMISTRY [facility] [id number] [place] [address] * (ABNORMAL) CBC W AUTO DIFFERENTIAL (08/10/2013 4:24 AM [employer] [employer]) WBC 4.9 4.4 - 10.7 x10^9/L 08/10/2013 5:06 AM [facility] RBC 4.75 3.80 - 5.20 x10^12/L 08/10/2013 5:06 AM [facility] Hemoglobin 14.0 12.0 - 15.6 gm/dL 08/10/2013 5:06 AM [facility] Hematocrit 41.8 35.9 - 45.5 % 08/10/2013 5:06 AM [facility] MCV 88.0 80.7 - 98.3 fl 08/10/2013 5:06 AM [facility] MCH 29.5 26.7 - 34.0 pg 08/10/2013 5:06 AM [facility] MCHC 33.5 30.8 - 35.9 gm/dL 08/10/2013 5:06 AM [facility] Platelet Count 217 153 - 416 x10^9/L 08/10/2013 5:06 AM [facility] RDW-CV 15.6(H) 12.1 - 14.9 % 08/10/2013 5:06 AM [facility] MPV 11.5 9.4 - 12.9 fl 08/10/2013 5:06 AM [facility] Neutrophils % 41.5(L) 44.0 - 73.0 % 08/10/2013 5:06 AM [facility] Lymphocytes % 47.2(H) 20.0 - 43.0 % 08/10/2013 5:06 AM [facility] Monocytes % 8.3 5.0 - 13.0 % 08/10/2013 5:06 AM [facility] Eosinophils % 2.2 0.0 - 6.0 % 08/10/2013 5:06 AM [facility] Basophils % 0.8 0.0 - 2.0 % 08/10/2013 5:06 AM [facility] Immature Granulocytes 0.0 0 - 1 % 08/10/2013 5:06 AM [facility] Neutrophil Absolute 2.05 2.01 - 7.14 x10^9/L 08/10/2013 5:06 AM [facility] Lymphocytes Absolute 2.33 1.07 - 3.94 x10^9/L 08/10/2013 5:06 AM [facility] Monocytes Absolute 0.41 0.26 - 1.07 x10^9/L 08/10/2013 5:06 AM [facility] Eosinophils Absolute 0.11 0 - 0.47 x10^9/L 08/10/2013 5:06 AM [facility] Basophils Absolute 0.04 0 - 0.08 x10^9/L 08/10/2013 5:06 AM [facility] Immature Granulocytes Absolute 0.00 0.00 - 0.06 x10^9/L 08/10/2013 5:06 AM [facility] Blood BLOOD SPECIMEN / Unknown 08/10/2013 4:24 AM [employer] 08/10/2013 4:49 AM [employer] Vasyl Lyon MD LAB - HEMATOLOGY ORD ERABLES [facility] [address] [place] [address] * SMOOTH MUSCLE ANTIBODY TITER (08/09/2013 10:45 AM [employer]) Smooth Muscle Antibody IgG Titer <1:20 <1:20 08/11/2013 4:38 PM [employer] [facility] Comment: INTERPRETIVE INFORMATION: ??Smooth Muscle Ab, IgG Titer ??Less than 1:20 ........ Negative - No antibody detected. ??1:20 - 1:80 ??.......... Weak Positive - Suggest repeat ?in two to three weeks with fresh ?specimen. ??1:160 or greater ...... Positive - Suggestive of ?autoimmune hepatitis or chronic ?active hepatitis. Blood specimen (specimen) BLOOD SPECIMEN / Unknown 08/09/2013 10:45 AM [employer] 08/09/2013 10:58 AM [employer] Mark Rose MD LAB - CHEMISTRY [employer] Performing Organization Address [facility] de Phone Number [facility] [address] [place] [address] * HEPATITIS SCREEN ACUTE (08/09/2013 10:45 AM [employer]) [facility] HAV Antibody IgM Non Reactive Non Reactive 08/09/2013 5:52 PM [employer] [facility] HBsAg Non Reactive Non Reactive 08/09/2013 5:52 PM [employer] [facility] HBc Antibody IgM Non Reactive Non Reactive 08/09/2013 5:52 PM [employer] [facility] HCV Antibody Screen Non Reactive Non Reactive 08/09/2013 5:52 PM [employer] [facility] Blood BLOOD SPECIMEN / Unknown 08/09/2013 10:45 AM [employer] 08/09/2013 10:58 AM [employer] Narrative [facility] - 08/09/2013 5:52 PM [employer] Nonreactive - Antibodies to HCV were not detected, result does not exclude early acute HCV infection. Mark Rose MD LAB - CHEMISTRY [employer] Performing Organization Address [facility] de Phone Number [facility] [address] [place] [address] * MITOCHONDRIAL ANTIBODY SCREEN (08/09/2013 10:45 AM [employer]) Mitochondrial M2 Antibody 7.9 0.0 - 20.0 Units 08/11/2013 2:53 AM [employer] Comment: INTERPRETIVE INFORMATION: Mitochondrial (M2) Antibody, IgG ??20.0 Units or less ......... Negative ??20.1 - 24.9 Units........... Equivocal ??25.0 Units or greater....... Positive Blood specimen (specimen) BLOOD SPECIMEN / Unknown 08/09/2013 10:45 AM [employer] 08/09/2013 10:58 AM [employer] Mark Rose MD LAB - CHEMISTRY ORD ERABLES [facility] [employer] [address] [place] [address] * (ABNORMAL) F-ACTIN (SMOOTH MUSCLE) ANTIBODY W REFLEX TITER (08/09/2013 10:45 AM [employer]PER[employer]) Pathologist [facility] F-Actin Antibody IgG 30(H) 0 - 19 Units 08/11/2013 2:53 AM [employer] Comment: INTERPRETIVE INFORMATION: F-Actin (Smooth Muscle) Antibody, [...] BLOOD SPECIMEN / Unknown 08/09/2013 10:45 AM [employer] 08/09/2013 10:58 AM [employer] Mark Rose MD LAB - SEROLOGY AUNSHKA LOVE [facility] [address] [place] [address] * (ABNORMAL) SONJA BLOOD SCREEN W/REFLEX TITER (08/09/2013 10:45 AM [employer]) SONJA Positive(A) Negative 08/10/2013 1:40 PM [employer] [facility] SONJA Titer 1:40 Negative, <1:40, 1:40, 1:80 Titer 08/10/2013 1:40 PM [employer] [facility] SONJA Pattern Homogeneous 08/10/2013 1:40 PM [employer] [facility] Blood BLOOD SPECIMEN / Unknown 08/09/2013 10:45 AM [employer] 08/09/2013 10:58 AM [employer] Mark Rose MD LAB - CHEMISTRY ORD JAMIE Performing Organization Address City/[facility]/ZIP Co de Phone Number [facility] [address] [place] [address] * (ABNORMAL) COMPREHENSIVE METABOLIC PANEL (08/09/2013 4:39 AM [employer]) Glucose 83 74 - 106 mg/dL 08/09/2013 5:30 AM [facility] Sodium 140 136 - 145 mmol/L 08/09/2013 5:30 AM [facility] Potassium 3.9 3.5 - 5.1 mmol/L 08/09/2013 5:30 AM [facility] Chloride 108(H) 98 - 107 mmol/L 08/09/2013 5:30 AM [facility] CO2 26 22 - 31 mmol/L 08/09/2013 5:30 AM [facility] Calcium 8.8 8.5 - 10.1 mg/dL 08/09/2013 5:30 AM [facility] Anion Gap 6 5 - 15 mmol/L 08/09/2013 5:30 AM [facility] BUN 8 7 - 21 mg/dL 08/09/2013 5:30 AM [facility] Creatinine 0.55 0.50 - 1.30 mg/dL 08/09/2013 5:30 AM [facility] eGFR by MDRD >60 >60 mL/min/1.7 3m2 08/09/2013 5:30 AM [facility] eGFR by MDRD >60 >60 mL/min/1.7 3m2 08/09/2013 5:30 AM [employer] [facility] Alkaline Phosphatase 137(H) 38 - 126 U/L 08/09/2013 5:30 AM [employer] [facility] ALT 585(H) 12 - 78 U/L 08/09/2013 5:30 AM [facility] AST 185(H) 5 - 40 U/L 08/09/2013 5:30 AM [facility] Protein Total 7.5 6.4 - 8.2 gm/dL 08/09/2013 5:30 AM [facility] Albumin 3.2(L) 3.4 - 5.0 gm/dL 08/09/2013 5:30 AM [facility] Bilirubin Total 1.0 0.2 - 1.0 mg/dL 08/09/2013 5:30 AM [facility] Blood BLOOD SPECIMEN / Unknown 08/09/2013 4:39 AM [employer] 08/09/2013 4:59 AM [employer] Vasyl Lyon MD LAB - CHEMISTRY ORDE [facility] Organization Address City/State/ZIP Co de Phone Number [facility] [address] [place] [address] * (ABNORMAL) CBC W AUTO DIFFERENTIAL (08/09/2013 4:39 AM [employer]) WBC 4.6 4.4 - 10.7 x10^9/L 08/09/2013 5:12 AM [facility] RBC 4.83 3.80 - 5.20 x10^12/L 08/09/2013 5:12 AM [facility] Hemoglobin 14.1 12.0 - 15.6 gm/dL 08/09/2013 5:12 AM [facility] Hematocrit 42.0 35.9 - 45.5 % 08/09/2013 5:12 AM [facility] MCV 87.0 80.7 - 98.3 fl 08/09/2013 5:12 AM [facility] MCH 29.2 26.7 - 34.0 pg 08/09/2013 5:12 AM [facility] MCHC 33.6 30.8 - 35.9 gm/dL 08/09/2013 5:12 AM [facility] Platelet Count 215 153 - 416 x10^9/L 08/09/2013 5:12 AM [facility] RDW-CV 15.7(H) 12.1 - 14.9 % 08/09/2013 5:12 AM [facility] MPV 11.2 9.4 - 12.9 fl 08/09/2013 5:12 AM [employer] [facility] Neutrophils % 34.5(L) 44.0 - 73.0 % 08/09/2013 5:12 AM [employer] [facility] Lymphocytes % 52.9(H) 20.0 - 43.0 % 08/09/2013 5:12 AM [employer] [facility] Monocytes % 9.3 5.0 - 13.0 % 08/09/2013 5:12 AM [facility] Eosinophils % 2.2 0.0 - 6.0 % 08/09/2013 5:12 AM [employer] [facility] Basophils % 1.1 0.0 - 2.0 % 08/09/2013 5:12 AM [facility] Immature Granulocytes 0.0 0 - 1 % 08/09/2013 5:12 AM [facility] Neutrophil Absolute 1.60(L) 2.01 - 7.14 x10^9/L 08/09/2013 5:12 AM [facility] Lymphocytes Absolute 2.45 1.07 - 3.94 x10^9/L 08/09/2013 5:12 AM [facility] Monocytes Absolute 0.43 0.26 - 1.07 x10^9/L 08/09/2013 5:12 AM [facility] Eosinophils Absolute 0.10 0 - 0.47 x10^9/L 08/09/2013 5:12 AM [facility] Basophils Absolute 0.05 0 - 0.08 x10^9/L 08/09/2013 5:12 AM [facility] Immature Granulocytes Absolute 0.00 0.00 - 0.06 x10^9/L 08/09/2013 5:12 AM [facility] Blood BLOOD SPECIMEN / Unknown 08/09/2013 4:39 AM [employer] 08/09/2013 4:59 AM [employer] Vasyl Lyon MD LAB - HEMATOLOGY ORD ERABLES [facility] [address] [place] [address] * US ABD LIMITED (RUQ) (08/08/2013 10:14 AM [employer]) Anatomical Region Laterality Modality Abdomen Ultrasound 08/08/2013 11:1 7 AM [employer] Impressions 08/08/2013 11:55 AM [employer] 1. Right adrenal gland enlargement. 2. Distended gallbladder. Edited by Sheri Zhong on 08/08/2013 11:41 AM Narrative 08/08/2013 11:55 AM [employer] ULTRASOUND ABDOMEN LIMITED INDICATION: Abdominal pain and [...] AM Dana Zimmer DO US ORDERABLES * (ABNORMAL) COMPREHENSIVE METABOLIC PANEL (08/08/2013 3:36 AM [employer]) Glucose 85 74 - 106 mg/dL 08/08/2013 4:10 AM [facility] Sodium 139 136 - 145 mmol/L 08/08/2013 4:10 AM [facility] Potassium 3.7 3.5 - 5.1 mmol/L 08/08/2013 4:10 AM [facility] Chloride 108(H) 98 - 107 mmol/L 08/08/2013 4:10 AM [facility] CO2 26 22 - 31 mmol/L 08/08/2013 4:10 AM [facility] Calcium 8.1(L) 8.5 - 10.1 mg/dL 08/08/2013 4:10 AM [facility] Anion Gap 5 5 - 15 mmol/L 08/08/2013 4:10 AM [facility] BUN 12 7 - 21 mg/dL 08/08/2013 4:10 AM [facility] Creatinine 0.54 0.50 - 1.30 mg/dL 08/08/2013 4:10 AM [facility] eGFR by MDRD >60 >60 mL/min/1.7 3m2 08/08/2013 4:10 AM [facility] eGFR by MDRD >60 >60 mL/min/1.7 3m2 08/08/2013 4:10 AM [facility] Alkaline Phosphatase 140(H) 38 - 126 U/L 08/08/2013 4:10 AM [facility] ALT 660(H) 12 - 78 U/L 08/08/2013 4:10 AM [facility] AST 219(H) 5 - 40 U/L 08/08/2013 4:10 AM [facility] Protein Total 6.8 6.4 - 8.2 gm/dL 08/08/2013 4:10 AM [facility] Albumin 3.1(L) 3.4 - 5.0 gm/dL 08/08/2013 4:10 AM [facility] Bilirubin Total 1.0 0.2 - 1.0 mg/dL 08/08/2013 4:10 AM [facility] Blood BLOOD SPECIMEN / Unknown 08/08/2013 3:36 AM [employer] 08/08/2013 3:46 AM [employer] Marjan Topete PA-C LAB - CHEMISTRY ANUSHKA LOVE [facility] [address] [place] [address] * (ABNORMAL) CBC W AUTO DIFFERENTIAL (08/08/2013 3:36 AM [employer]) [facility] Signature WBC 6.5 4.4 - 10.7 x10^9/L 08/08/2013 3:57 AM [facility] RBC 4.71 3.80 - 5.20 x10^12/L 08/08/2013 3:57 AM [facility] Hemoglobin 13.9 12.0 - 15.6 gm/dL 08/08/2013 3:57 AM [facility] Hematocrit 41.1 35.9 - 45.5 % 08/08/2013 3:57 AM [facility] MCV 87.3 80.7 - 98.3 fl 08/08/2013 3:57 AM [facility] MCH 29.5 26.7 - 34.0 pg 08/08/2013 3:57 AM [facility] MCHC 33.8 30.8 - 35.9 gm/dL 08/08/2013 3:57 AM [facility] Platelet Count 205 153 - 416 x10^9/L 08/08/2013 3:57 AM [facility] RDW-CV 16.2(H) 12.1 - 14.9 % 08/08/2013 3:57 AM [facility] MPV 11.3 9.4 - 12.9 fl 08/08/2013 3:57 AM [facility] Neutrophils % 48.3 44.0 - 73.0 % 08/08/2013 3:57 AM [facility] Lymphocytes % 37.6 20.0 - 43.0 % 08/08/2013 3:57 AM [facility] Monocytes % 11.0 5.0 - 13.0 % 08/08/2013 3:57 AM [facility] Eosinophils % 2.0 0.0 - 6.0 % 08/08/2013 3:57 AM [facility] Basophils % 0.9 0.0 - 2.0 % 08/08/2013 3:57 AM [facility] Immature Granulocytes 0.2 0 - 1 % 08/08/2013 3:57 AM [facility] Neutrophil Absolute 3.12 2.01 - 7.14 x10^9/L 08/08/2013 3:57 AM [employer] [facility] Lymphocytes Absolute 2.43 1.07 - 3.94 x10^9/L 08/08/2013 3:57 AM [facility] Monocytes Absolute 0.71 0.26 - 1.07 x10^9/L 08/08/2013 3:57 AM [employer] [facility] Eosinophils Absolute 0.13 0 - 0.47 x10^9/L 08/08/2013 3:57 AM [employer] [facility] Basophils Absolute 0.06 0 - 0.08 x10^9/L 08/08/2013 3:57 AM [facility] Immature Granulocytes Absolute 0.01 0.00 - 0.06 x10^9/L 08/08/2013 3:57 AM [facility] Blood BLOOD SPECIMEN / Unknown 08/08/2013 3:36 AM [employer] 08/08/2013 3:46 AM [employer] Marjan Topete PA-C LAB - HEMATOLOGY ORD JAMIE Performing Organization Address [facility] de Phone Number [facility] [address] [place] [address] * TROPONIN I (08/07/2013 9:52 PM [employer]) [facility] Troponin I <0.015 0.000 - 0.049 ng/mL 08/07/2013 10:25 PM [facility] Blood BLOOD SPECIMEN / Unknown 08/07/2013 9:52 PM [employer] 08/07/2013 9:58 PM [employer] Narrative [facility] - 08/07/2013 10:25 PM [employer] Note: Diagnosis of myocardial infarction requires symptoms [...] as pulmonary embolism, renal failure and sepsis. Kathleen Mustafa MD LAB - CHEMISTRY ANUSHKA LOVE Performing Organization Address [facility] Co de Phone Number [facility] [address] [place] [address] * TROPONIN I (08/07/2013 5:52 PM [employer]) [facility] Troponin I <0.015 0.000 - 0.049 ng/mL 08/07/2013 6:24 PM [employer] [facility] Blood BLOOD SPECIMEN / Unknown 08/07/2013 5:52 PM [employer] 08/07/2013 5:55 PM [employer] Narrative [facility] - 08/07/2013 6:24 PM [employer] Note: Diagnosis of myocardial infarction requires symptoms [...] as pulmonary embolism, renal failure and sepsis. Dana Zimmer DO LAB - CHEMISTRY ORDE RABLES Performing Organization Address [facility] Co de Phone Number [facility] [address] [place] [address] * HCG URINE QUALITATIVE (08/07/2013 5:46 PM [employer]) [facility] hCG Qualitative Urine Negative Negative 08/07/2013 6:01 PM [employer] [facility] Urine URINE SPECIMEN OBTAINED BY CLEAN CATCH PROCEDURE / Unknown 08/07/2013 5:46 PM [employer] 08/07/2013 5:48 PM [employer] Dana Zimmer DO LAB - URINALYSIS ORD ERABLES Performing Organization Address [facility] de Phone Number [facility] [address] [place] [address] * (ABNORMAL) URINALYSIS ROUTINE W/REFLEX TO CULTURE (08/07/2013 5:46 PM [employer]) [facility] Color UA Dark Yellow Straw, Yellow, Dark Yellow 08/07/2013 6:06 PM [employer] [facility] Clarity UA Turbid 08/07/2013 6:06 PM [employer] [facility] Specific Dana UA >1.045(H) 1.005 - 1.030 08/07/2013 6:06 PM [employer] [facility] pH UA 5.0 5.0 - 8.0 pH 08/07/2013 6:06 PM [facility] Protein UA Negative Negative 08/07/2013 6:06 PM [facility] Blood UA Negative Negative 08/07/2013 6:06 PM [facility] Leukocyte UA Negative Negative 08/07/2013 6:06 PM [facility] Nitrite UA Negative Negative 08/07/2013 6:06 PM [facility] Glucose UA Negative Negative 08/07/2013 6:06 PM [facility] Ketone UA Negative Negative 08/07/2013 6:06 PM [facility] Bilirubin UA Negative Negative 08/07/2013 6:06 PM [facility] Urobilinogen UA 1.0 0.1 - 1.0 EU/dL 08/07/2013 6:06 PM [facility] WBC UA Auto 2-5 0-2, 2-5 #/hpf 08/07/2013 6:06 PM [facility] RBC UA Auto 0-2 0-2, 2-5 #/hpf 08/07/2013 6:06 PM [facility] Epithelial Cell UA Auto 5-10(A) 0-2, 2-5 #/hpf 08/07/2013 6:06 PM [facility] Bacteria UA Auto 1+(A) None seen 08/07/20 13 6:06 PM [facility] Hyaline Casts UA Auto 0-2 0 - 2 #/lpf 08/07/2013 6:06 PM [facility] Reflex Status Culture to follow 08/07/2013 6:06 PM [facility] Urine URINE SPECIMEN OBTAINED BY CLEAN CATCH PROCEDURE / Unknown 08/07/2013 5:46 PM [employer] 08/07/2013 5:48 PM [facility] Dana Zimmer DO LAB - URINALYSIS ORD ERABLES [facility] [address] [place] [address] * CULTURE URINE (08/07/2013 5:46 PM [facility]) Culture <10,000 CFU/mL normal urogenital lina 08/09/2013 6:20 AM [facility] Urine URINE SPECIMEN OBTAINED BY CLEAN CATCH PROCEDURE / Unknown 08/07/2013 5:46 PM [employer] 08/07/2013 5:48 PM [employer] Dana Zimmer DO LAB - MICROBIOLOGY O RDERABLES [facility] [address] [place] [address], [facility] * CT ABDOMEN AND PELVIS WITH IV CONTRAST (08/07/2013 2:55 PM [employer]) Anatomical Region Laterality Modality Abdomen, Pelvis Computed Tomogra phy 08/07/2013 2:55 PM [employer] Narrative 08/07/2013 2:58 PM [employer] Examination: CT abdomen and pelvis with contrast. Indication for examination: Mid and upper abdominal pain. Previous gastric surgery. CT examination of the abdomen and pelvis is performed with intravenous and oral contrast with coronal reconstructions. ??80 mL Omnipaque [address] abdomen: CT examination of the abdomen shows a laparoscopic gastric esophageal band in place. Liver and spleen are normal in size and shape. No focal mass identified. Gallbladder is mildly distended. Bile ducts are not dilated. No discrete abnormality identified in the pancreas. Kidneys are normal in size and shape without obstruction or calcified stone. There is enlargement of the right adrenal gland with relatively low-density. This may represent right adrenal adenoma. Followup required. Left adrenal is normal in size. There is no bowel obstruction or perforation. There is no ascites or loculated peritoneal fluid. CT pelvis: CT examination of the pelvis shows no mass lesion or fluid collection. There is no evidence of colitis or diverticulitis. Appendix is normal in caliber. Conclusion: 3.6 x 2.8 cm low-density mass right adrenal gland. This may represent an adenoma. Followup required. Gastroesophageal band in place. No bowel obstruction or perforation. No urinary obstruction or calcified stone. No other focal findings. No acute abnormality identified. Procedure Note Stevenson Medrano MD - 08/07/2013 Examination: CT abdomen and pelvis with contrast. Indication for examination: Mid and upper abdominal pain. Previous gastric surgery. CT examination of the abdomen and pelvis is performed with intravenous and oral contrast with coronal reconstructions. 80 mL Omnipaque [address] abdomen: CT examination of the abdomen shows a laparoscopic gastric esophageal band in place. Liver and spleen are normal in size and shape. No focal mass identified. Gallbladder is mildly distended. Bile ducts are not dilated. No discrete abnormality identified in the pancreas. Kidneys are normal in size and shape without obstruction or calcified stone. There is enlargement of the right adrenal gland with relatively low-density. This may represent right adrenal adenoma. Followup required. Left adrenal is normal in size. There is no bowel obstruction or perforation. There is no ascites or loculated peritoneal fluid. CT pelvis: CT examination of the pelvis shows no mass lesion or fluid collection. There is no evidence of colitis or diverticulitis. Appendix is normal in caliber. Conclusion: 3.6 x 2.8 cm low-density mass right adrenal gland. This may represent an adenoma. Followup required. Gastroesophageal band in place. No bowel obstruction or perforation. No urinary obstruction or calcified stone. No other focal findings. No acute abnormality identified. Dana Zimmer DO CT ORDERABLES * LIPASE BLOOD (08/07/2013 1:05 PM [employer]) Pathologist [facility] [place] Lipase [id number] U/L 08/07/2013 1:33 PM [employer] [facility] Blood BLOOD SPECIMEN / Unknown 08/07/2013 1:05 PM [employer] 08/07/2013 1:10 PM [employer] Dana Zimmer DO LAB - CHEMISTRY [place] [facility] Organization Address City/State/[facility] Co de Phone Number [facility] [id number] [place] [address] * TROPONIN I (08/07/2013 1:05 PM [employer]) Pathologist [facility] [place] Troponin I <0.015 0.000 - 0.049 ng/mL 08/07/2013 1:34 PM [employer] [facility] Blood BLOOD SPECIMEN / Unknown 08/07/2013 1:05 PM [employer] 08/07/2013 1:10 PM [employer] Narrative [facility] - 08/07/2013 1:34 PM [employer] Note: Diagnosis of myocardial infarction requires symptoms [...] as pulmonary embolism, renal failure and sepsis. Dana Zimmer DO LAB - CHEMISTRY [facility] [address] [place] [address] * (ABNORMAL) COMPREHENSIVE METABOLIC PANEL (08/07/2013 1:05 PM [facility]) Pathologist [facility] [place] Glucose 93 74 - 106 mg/dL 08/07/2013 1:33 PM [facility] Sodium 138 136 - 145 mmol/L 08/07/2013 1:33 PM [facility] Potassium 4.1 3.5 - 5.1 mmol/L 08/07/2013 1:33 PM [facility] Chloride 109(H) 98 - 107 mmol/L 08/07/2013 1:33 PM [facility] CO2 24 22 - 31 mmol/L 08/07/2013 1:33 PM [facility] Calcium 8.7 8.5 - 10.1 mg/dL 08/07/2013 1:33 PM [facility] Anion Gap 5 5 - 15 mmol/L 08/07/2013 1:33 PM [facility] BUN 16 7 - 21 mg/dL 08/07/2013 1:33 PM [facility] Creatinine 0.55 0.50 - 1.30 mg/dL 08/07/2013 1:33 PM [facility] eGFR by MDRD >60 >60 mL/min/1.7 3m2 08/07/2013 1:33 PM [facility] eGFR by MDRD >60 >60 mL/min/1.7 3m2 08/07/2013 1:33 PM [facility] Alkaline Phosphatase 179(H) 38 - 126 U/L 08/07/2013 1:33 PM [facility] ALT 915(H) 12 - 78 U/L 08/07/2013 1:33 PM [facility] AST 355(H) 5 - 40 U/L 08/07/2013 1:33 PM [facility] Protein Total 8.3(H) 6.4 - 8.2 gm/dL 08/07/2013 1:33 PM [facility] Albumin 3.7 3.4 - 5.0 gm/dL 08/07/2013 1:33 PM [facility] Bilirubin Total 1.0 0.2 - 1.0 mg/dL 08/07/2013 1:33 PM [facility] Blood BLOOD SPECIMEN / Unknown 08/07/2013 1:05 PM [employer] 08/07/2013 1:10 PM [employer] Dana Zimmer DO LAB - CHEMISTRY [facility] [address] [place] [address] * (ABNORMAL) CBC W AUTO DIFFERENTIAL (08/07/2013 1:05 PM [employer]) WBC 6.4 4.4 - 10.7 x10^9/L 08/07/2013 1:16 PM [facility] RBC 5.38(H) 3.80 - 5.20 x10^12/L 08/07/2013 1:16 PM [facility] Hemoglobin 15.9(H) 12.0 - 15.6 gm/dL 08/07/2013 1:16 PM [facility] Hematocrit 46.2(H) 35.9 - 45.5 % 08/07/2013 1:16 PM [facility] MCV 85.9 80.7 - 98.3 fl 08/07/2013 1:16 PM [facility] MCH 29.6 26.7 - 34.0 pg 08/07/2013 1:16 PM [facility] MCHC 34.4 30.8 - 35.9 gm/dL 08/07/2013 1:16 PM [facility] Platelet Count 236 153 - 416 x10^9/L 08/07/2013 1:16 PM [facility] RDW-CV 16.4(H) 12.1 - 14.9 % 08/07/2013 1:16 PM [facility] MPV 10.8 9.4 - 12.9 fl 08/07/2013 1:16 PM [facility] Neutrophils % 56.3 44.0 - 73.0 % 08/07/2013 1:16 PM [facility] Lymphocytes % 33.1 20.0 - 43.0 % 08/07/2013 1:16 PM [employer] [facility] Monocytes % 8.0 5.0 - 13.0 % 08/07/2013 1:16 PM [employer] [facility] Eosinophils % 1.4 0.0 - 6.0 % 08/07/2013 1:16 PM [employer] [facility] Basophils % 0.9 0.0 - 2.0 % 08/07/2013 1:16 PM [employer] [facility] Immature Granulocytes 0.3 0 - 1 % 08/07/2013 1:16 PM [employer] [facility] Neutrophil Absolute 3.60 2.01 - 7.14 x10^9/L 08/07/2013 1:16 PM [employer] [facility] Lymphocytes Absolute 2.12 1.07 - 3.94 x10^9/L 08/07/2013 1:16 PM [employer] [facility] Monocytes Absolute 0.51 0.26 - 1.07 x10^9/L 08/07/2013 1:16 PM [employer] [facility] Eosinophils Absolute 0.09 0 - 0.47 x10^9/L 08/07/2013 1:16 PM [employer] [facility] Basophils Absolute 0.06 0 - 0.08 x10^9/L 08/07/2013 1:16 PM [employer] [facility] Immature Granulocytes Absolute 0.02 0.00 - 0.06 x10^9/L 08/07/2013 1:16 PM [facility] Blood BLOOD SPECIMEN / Unknown 08/07/2013 1:05 PM [employer] 08/07/2013 1:10 PM [employer] Dana Zimmer DO LAB - HEMATOLOGY ORD ERABLES [facility] [address] [place] [address] * EKG 12-LEAD (08/07/2013 12:26 PM [employer]) Ventricular Rate 75 BPM [facility] Atrial Rate 75 BPM [facility] P-R Interval 162 ms [facility] QRS Duration ms 90 ms [facility] Q-T Interval ms 422 ms [facility] QTC Calculation (Bezet) 471 ms [facility] Calculated P [place] 23 degrees [facility] Calculated R [place] -19 degrees [facility] Calculated T [place] 10 degrees [facility] Interpretation EKG Normal sinus rhythm Minimal voltage criteria for LVH, may be normal variant Cannot rule out Anterior infarct , age undetermined Abnormal ECG No previous ECGs available Confirmed by MD ROCIO, HERNAN ([id number]) on 08/08/2013 8:39:37 AM [facility] 08/07/2013 12:2 6 PM [employer] 08/08/2013 8:39 AM [employer] Narrative [facility] - 08/08/2013 8:39 AM [employer] Procedure Note Document, Scanned - 08/08/2013 6:47 AM CST Transcriptions Document, Scanned - 08/08/2013 6:57 AM CST Document, Scanned - 08/08/2013 8:41 AM CST Dana Zimmer DO ECG ORDERABLES [facility] documented in this encounter Visit Diagnoses Not on filedocumented in this encounter Active and Recently Administered Medications Times are shown in [employer]. Scheduled Medication Order 08/12/2013 08/13/2013 08/14/2013 0.9% NaCl injection 3 mL (CANCELED) 3 mL, Intracatheter, EVERY 8 HOURS, First dose on Thu08/10/13 at 1415, Until Discontinued, For Saline Lock flushes if one is inserted for Endoscopy procedure., Pre-procedure (GI) 0601 ($ Given - Provider: Parul Moreno RN)1457 ($ Given - Provider: Ni Gonzalez RN)2218 ($ Given - Provider: Donna Huffman RN) 0619 ($ Given - Provider: Donna Huffman RN)1409 ($ Given - Provider: Roxanna Lawson RN)2101 ($ Given - Provider: Zulema Conde RN) 0600 (Not Administered - Provider: Zulema Conde RN - Reason: IV Currently Infusing) aspirin tablet 325 mg (CANCELED) 325 mg, Oral, DAILY, First dose on Thu08/07/13 at 2030, Until Discontinued 0800 (Held - Provider: Sol Lynch RN - Comment: Pt. off unit in procedure. Aspirin held.) 0906 ($ Given - Provider: Roxanna Lawson RN) 0848 ($ Given - Provider: Roxanna Lawson RN) fentaNYL (SUBLIMAZE) injection 25 mcg (COMPLETED) 25 mcg, Intravenous, ONCE, 1 dose, On Thu08/12/13 at 1245 1245 ($ Given - Provider: Ofelia Hernandez RN) levothyroxine (SYNTHROID) tablet 88 mcg (CANCELED) 88 mcg, Oral, DAILY BEFORE BREAKFAST, First dose on 08/08/13 at 0630, Until Discontinued 1454 ($ Given - Provider: Ni Gonzalez RN) 0619 ($ Given - Provider: Donna Huffman, CHARIS) 0616 ($ Given - Provider: Zulema Conde, CHARIS) lisinopril (PRINIVIL; ZESTRIL) tablet 40 mg (CANCELED) 40 mg, Oral, DAILY, First dose on 08/07/13 at 2030, Until Discontinued, Hold for SBP <120 1455 ($ Given - Provider: Ni Gonzalez RN) 0907 ($ Given - Provider: Roxanna Lawson RN) 0848 ($ Given - Provider: Roxanna Lawson RN) metoprolol tartrate IR (LOPRESSOR) tablet 25 mg (CANCELED) 25 mg, Oral, 2 TIMES DAILY, First dose on 08/07/13 at 2100, Until Discontinued, Hold for SBP <110 0925 ($ Given - Provider: Ni Gonzalez RN)2218 ($ Given - Provider: Donna Huffman RN) 0906 ($ Given - Provider: Roxanna Lawson RN)2058 ($ Given - Provider: Zulema Conde, CHARIS) 0848 ($ Given - Provider: Roxanna Lawson, CHARIS) miconazole (MONISTAT) vaginal suppository 200 mg (CANCELED) 200 mg, Vaginal, AT BEDTIME, First dose on 08/13/13 at 2100, Until Discontinued 2058 ($ Given - Provider: Zulema Conde, CHARIS) ondansetron (ZOFRAN) injection 4 mg (COMPLETED) 4 mg, Intravenous, ONCE, 1 dose, On Thu08/12/13 at 1245 1245 ($ Given - Provider: Ofelia Hernandez RN) senna-docusate (SENOKOT-S) tablet 1 Tab (CANCELED) 1 tablet, Oral, DAILY, First dose on 08/13/13 at 1315, Until Discontinued 1409 ($ Given - Provider: Roxanna Lawson RN) 0848 ($ Given - Provider: Roxanna Lawson, CHARIS) Continuous Medication Order 08/12/2013 08/13/2013 08/14/2013 0.9% NaCl infusion (CANCELED) at 75 mL/hr, Intravenous, CONTINUOUS, Starting on 08/07/13 at 1700, Until 08/14/13 at 1431 1804 ($ New Bag/Syringe - Provider: Ni Gonzalez RN) 0620 ($ New Bag/Syringe - Provider: Donna Huffman RN)1904 ($ New Bag/Syringe - Provider: Zulema Conde RN) 0701 ($ New Bag/Syringe - Provider: Roxanna Lawson RN) PRN Medication Order 08/12/2013 08/13/2013 08/14/2013 hydrocodone-acetaminophe n (NORCO) 5-325 MG tablet 1-2 Tab 1-2 tablet, Oral, EVERY 4 HOURS PRN, Moderate Pain, Starting on Thu08/10/13 at 2228, Until 08/14/13 at 1431, Maximum allowable Acetaminophen amount = 4 Grams (4000 mg) / 24 hours. 0142 ($ Given - Provider: Parul Moreno RN)1706 ($ Given - Provider: Ni Gonzalez RN)2101 ($ Given - Provider: Zulema Conde, CHARIS) 1414 ($ Given - Provider: Roxanna Lawson, CHARIS)2059 ($ Given - Provider: Zulema Conde, CHARIS) HYDROmorphone (DILAUDID) injection 0.5 mg (CANCELED) 0.5 mg, Intravenous, EVERY 2 HOURS PRN, Pain, Starting on Thu08/10/13 at 1845, Until Thu08/12/13 at 1121, For severe pain (pain scale score of 7-10) 0609 ($ Given - Provider: Parul Moreno RN) HYDROmorphone (DILAUDID) injection 0.5 mg (CANCELED) 0.5 mg, Intravenous, EVERY 4 HOURS PRN, Pain, Starting on 08/12/13 at 1130, Until 08/13/13 at 1243, For severe pain (pain scale score of 7-10) 2218 ($ Given - Provider: Donna Huffman, CHARIS) magnesium hydroxide (MILK OF MAGNESIA) suspension 30 mL (CANCELED) 30 mL, Oral, PRN, Constipation, Starting on 08/13/13 at 1241, Until 08/14/13 at 1431, Shake well before using. 1737 ($ Given - Provider: Roxanna Lawson RN) 0848 ($ Given - Provider: Roxanna Lawson RN) ondansetron (ZOFRAN) injection 4 mg (CANCELED) 4 mg, Intravenous, EVERY 4 HOURS PRN, Nausea/Vomiting, Starting on 08/07/13 at 1732, Until 08/14/13 at 1431 1230 ($ Given - Provider: Ofelia Hernandez, CHARIS) documented in this encounter Care Teams Weigher Production Relationship Specialty Start Date End Date Sveta Rai MD PCP - General Internal Medicine 02/22/13 12/07/16 documented as of this encounter
--- OUTSIDE RECORDS SUMMARY | 2024-09-18 09:37 | XMS_ITS | Encounter Summary ---
Author Organization [facility] Address [address] [place] [address] Care Team Providers Care Custodial Laborer Name Role Phone Sveta Rai MD Primary Care Provider Reason for Visit * Reason Onset Date Comments Update 08/23/2013 Encounter Details Date Type Department Care Team (Late Contact Info) Description 08/23/2013 Telephone [facility] - Family Medicine [id number] [place] [id number] Sveat Rai MD [address] [place] [address] DR NOONAN [address] [place] [address] [id number] Update Social History Tobacco Use Types Packs/Day [...] encounter Miscellaneous Notes * Telephone Encounter - Baylee Allen V - 08/23/2013 11:55 AM CST Pt scheduled today at 1pm [employer]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 She returned to work yesterday. Pt is experiencing vomiting 3x, nausea is continuous and diarrhea 10x. No fever. Pt is asking for appointment. Please advise ND PRODUCTS DIRECTOR documented in this encounter Plan of Treatment Upcoming Encounters Date Type Department Care Team (Late st Contact Info) Description 09/27/2024 2:20 PM GROUND PRODUCTS DIRECTOR Office Visit [facility] [address] [phone] [place] [id number] [phone] 09/28/2024 1:00 PM GROUND PRODUCTS DIRECTOR Office Visit [facility] [place] [address] [address] [place], [address] [phone] [place] [address] [address] [phone] documented as of this encounter Visit Diagnoses Not on filedocumented in this encounter Care Teams Custodial Laborer Relationship Specialty Start Date End Date Sveta Rai MD PCP - General Internal Medicine 02/22/13 12/07/16 documented as of this encounter
--- OUTSIDE RECORDS SUMMARY | 2024-09-18 09:37 | XMS_ITS | Encounter Summary ---
Author Organization [facility] Address [address] [address] Care Team Providers Care Ribbon Blocker Name Role Phone Sveta Rai MD Primary Care Provider [phone] Reason for Visit * Reason Comments Liver Problem states was recently admitted to hospital and was told my liver enzymes are high co nausea and abd pain and brown urine * Auth/Cert - Closed Specialty Diagnoses / Procedures Referred By Contlouie t Referred To Contact Diagnoses Abdominal pain Referral ID Status Reason Start Date Expiration Date Visits Re quested Visits Authorized [id number] Closed 1 1 Encounter Details Date Type Department Care Team (Latest Contact Info) Description 08/10/2013 7:30 AM FOOD STOREROOM CLERK - 08/10/2013 9:07 AM [facility] Surgery [facility] - Perioperative Surgery [address] [place], [place] [id number] [place] [address] [facility] [address] [place], [place] [id number] LAPAROSCOPIC CHOLECYSTECTOMY Surgery Details Date/Time Status Location OR Service Patient Class Case Class Case Type Trauma Case? 08/10/2013 7:30 AM Posted [facility] MAIN OR OR 02 General Inpatient Non-Urgen t Add On Panel 1 Procedure LRB Anes Op Region Wound Class Comments LAPAROSCOPIC CHOLECYSTECTOMY General Abdomen Clean Contaminated cholelangiogram with contrast Surgeon Surgeon Role Service Panel Noah Alvares MD Primary General 1 documented in this encounter Social History [...] Comments Blood Pressure 157/84 08/14/2013 4:27 AM FOOD STOREROOM CLERK Pulse 81 08/14/2013 4:27 AM FOOD STOREROOM CLERK Temperature 37.1 ??C (98.7 ??F) 08/14/2013 4:27 AM CS T Respiratory Rate 16 08/14/2013 4:27 AM FOOD STOREROOM CLERK Oxygen Saturation 97% 08/14/2013 4:27 AM FOOD STOREROOM CLERK Inhaled Oxygen Concentration - - Weight 103 kg (227 lb) 08/07/2013 12:13 PM FOOD STOREROOM CLERK Height 160 cm (5' 3 ) 08/07/2013 12:13 PM FOOD STOREROOM CLERK Body Mass Index 40.21 08/07/2013 12:13 PM FOOD STOREROOM CLERK documented in this encounter Discharge Summaries * Chacha Christina MD - 08/14/2013 3:41 PM CST Physician Discharge Summary Patient Name: Pool Rodriguez Date of : 1965 Admit date: 08/07/2013 Discharge date: 08/14/2013 Admitting Physician: Vasyl Lyon MD Attending Physician: Vasyl Lyon MD Discharge Physician: Chacha Christina MD Discharge Diagnosis 1.Acute cholecsysitits 2. HTN 3. Hypothyroidism 4. H/o CAD, RI Admission Diagnoses Patient Active Problem List Diagnosis [...] 169/87 mmHg Component Name 08/11/13 0423 08/10/13 04208/09/13438 WBC 8.1 4.9 4.6 HGB 12.6 14.0 [...] 4. Hypothyroidism -continue Tirosint 5. H/o CAD, RI Continue BB and home meds, ASA 6. [...] in 1 week. Follow up with - mold swabber (stomach doctor) in 2 weeks, call [phone] for appointment. Follow up with - surgeon in 2 weeks, call [phone] for appointment. CBC and CMP in 1 week. Call office to schedule appointment(s). Bring all medications to next visit. Total time spent was greater than 30 minutes to review medications and place discharge orders/instructions and explain the discharge plan D/c summary note was faxed to PCP via the [employer] routing system CC: Sveta Terry STOREROOM CLERK documented in this encounter Discharge Instructions * Discharge Instructions* Roxanna Lawson RN - 08/14/2013 10:56 AM FOOD STOREROOM CLERK If you have any questions regarding your [...] in 1 week. Follow up with - mold swabber (stomach doctor) in 2 weeks, call [phone] for appointment. Follow up with - surgeon in 2 weeks, call [phone] for appointment. CBC and CMP in 1 [...] a copy of the discharge instructions. 08/14/2013 STOREROOM CLERK * Discharge Instructions* Document, Scanned - 08/15/2013 5:47 PM FOOD STOREROOM CLERK STOREROOM CLERK documented in this encounter Medications at Time [...] of this encounter Progress Notes * Mark Melo MD - 08/14/2013 9:13 AM CST GI [...] ultimately considered. Discharge today from GI perspective STOREROOM CLERK * Zulema Conde RN - 08/14/2013 7:45 AM CST Patient A&Ox4. VSS. Patient had one bowel movement last night, but indicates constipation. Lastnorco administered at 2000. Patient states pain is tolerable at 3/10. Will continue to monitor. STOREROOM CLERK * Chacha Christina MD - 08/13/2013 11:02 [...] -continue Tirosint H/o MS -stable H/o CAD, RI Continue BB and home meds, ASA Constipation : Start on bowel regimen DVT ppx- SCDs Dc home if constipation resolves Chacha Christina MD 08/08/2013 11:02 AM STOREROOM CLERK * Mark Melo MD - 08/13/2013 10:43 AM CST GI [...] be off work for the next week. STOREROOM CLERK * Donna Huffman RN - 08/13/2013 7:00 AM CST End of Shift: Patient A+Ox4 with VSS. Patient complained of pain during the beginning of shift. Received norco and dilaudid and patient stated that it helped her pain tremendously. Will continue to monitor. STOREROOM CLERK * Ni Gonzalez RN - 08/12/2013 6:27 PM CST Shift note: Received patient from site damage prevention technician nurse, pt was alert and oriented, VSS, and appeared comfortable and in no distress. Pt left unit for ERCP around 10am. Patient came back to 5N around 3pm. VSS, pain is under control, and pt appears comfortable and in no distress. Continue to monitor. STOREROOM CLERK * Raya Bowen RN - 08/12/2013 12:26 PM CST Normal exam STOREROOM CLERK * Vasyl Lyon MD - 08/12/2013 6:46 [...] 95% 98% . Component Name 08/11/13 0423 08/10/1342308/09/13 0439 WBC 8.1 4.9 4.6 HGB 12.6 [...] for this basename: INR:3 in the last 75376 hours . Component Name 07/01/13 0804 02/22/13 1426 TSH 1.260 1.360 . Component Name 08/10/13 1059 08/07/13 2152 08/07/13 1752 TROPONIN <0.015 <0.015 <0.015 .No results found for this basename: MAGMGDL:3 in the last 18116 hours . Component Name 08/07/13 1305 LIPASE [...] -continue Tirosint H/o MS -stable H/o CAD, RI -denies CP. EKG/ Trops ok. Continue BB and home meds -continue ACEI, BB, and ASA Dd with pt Overall ok DC plan for AM DVT ppx- SCDs Vasyl Lyon MD 08/08/2013 6:46 AM STOREROOM CLERK * Parul Moreno, RN - 08/12/2013 4:38 AM CST Shift summary: VSS. A&Ox4. C/o of abd pain managed with pain meds. Pt NPO for procedure today. At this time Pt in no apparent distress. Parul Delgadillo RN 08/12/2013 4:42 AM STOREROOM CLERK * Ni Gonzalez RN - 08/11/2013 5:31 PM CST Shift note: Received patient from site damage prevention technician nurse, patient appeared comfortable and in no distress, VSS, and alert and oriented. Patient received Kincaid and Dilaudid for her severe abd pain today, tolerated medication well. NPO after midnight tonight for her ERCP procedure tomorrow. Patient appears comfortable and VSS. STOREROOM CLERK * Renetta Person RN - 08/11/2013 11:21 AM CST Problem: Discharge Planning Goal: Patient???s continuum of care needs are met Outcome: Ongoing Multidisciplinary rounds completed with s3b multi sensor operator, CSN, Stump Shooter, and Physician Relations Specialist. Plan discharge to home with family. Renetta Person RN/Stump ShooterIhcwvog-[phone] STOREROOM CLERK * Sol Lynch RN - 08/11/2013 8:16 AM CST Endoscopy was informed of procedure in am 08/12/[address] Melo.Sol Lynch RN 08/11/2013 8:17 AM STOREROOM CLERK * Vasyl Lyon MD - 08/11/2013 7:12 [...] for this basename: INR:3 in the last 45568 hours . Component Name 07/01/13 0804 02/22/13 1426 TSH 1.260 1.360 . Component Name 08/10/13 1059 08/07/13 2152 08/07/13 1752 TROPONIN <0.015 <0.015 <0.015 .No results found for this basename: MAGMGDL:3 in the last 37211 hours . Component Name 08/07/13 1305 LIPASE [...] scheduled in AM, as discussed with Dr Melo Elevated LFTs -probably related to cholecystitis -GI consulted -Improving - F Actin Ab/ SONJA +ve. Autoimmune liver disease?? Will need to repeat these in 2-3 weeks. Viral Hep profile neg HTN -BP stable -resumed home regimen Hypothyroidism -continue Tirosint H/o MS -stable H/o CAD, RI -denies CP. EKG/ Trops ok. Continue BB and home meds -continue ACEI, BB, and ASA Dd with pt Overall ok DVT ppx- SCDs Vasyl Lyon MD 08/08/2013 7:12 AM STOREROOM CLERK * Salty Merlos RN - 08/11/2013 6:29 AM CST End of Shift: Patient complained of pain in abdomen, placed ice make on painful area, dilaudid for pain and norco for breakthrough. Up and tico, VSS, A&OX4, incision on abdomen intact with skin glue, no signs of infection, used SCDs throughout shift. Tolerating food. No signs of distress. STOREROOM CLERK * Philomena Chino RN - 08/10/2013 8:18 PM CST Pt. In [...] to ambulate to bathroom and void successfully. STOREROOM CLERK * Sasha Muniz RN - 08/10/2013 6:24 PM CST Patient requesting if her diet can be advanced, call out to Dr. Alvares. STOREROOM CLERK * Mark Melo MD - 08/10/2013 12:02 PM CST GI [...] 41.1 PLTCOUNT 217 215 205 Component Name 12/04/13 0424 SODIUM 141 POTASSIUM 3.9 CHLORIDE 110* [...] retained CBD stones ERCP planned Fri morning STOREROOM CLERK * Mark Melo MD - 08/10/2013 7:37 AM CST Patient off floor for GB surgery. Spoke with daughter and Dr Alvares. IOC planned; if has CBD stonethat can not be removed intraoperatively, will need eventual ERCP. If no stone, then discharge per Dr Alvares. STOREROOM CLERK * Vasyl Lyon MD - 08/10/2013 7:35 [...] for this basename: INR:3 in the last 10264 hours . Component Name 07/01/13 0804 02/22/13 1426 TSH 1.260 1.360 . Component Name 08/07/13 2152 08/07/13 1752 08/07/13 1305 TROPONIN <0.015 <0.015 <0.015 .No results found for this basename: MAGMGDL:3 in the last 61321 hours . Component Name 08/07/13 1305 LIPASE [...] u/s pending -GI consulted. Dd with Dr Melo. Surg consult obtained. CCK today (could not be done yesterday) Elevated LFTs -probably related to cholecystitis -GI consulted -Improving slowly HTN -BP stable -resumed home regimen Hypothyroidism -continue Tirosint H/o MS -stable H/o CAD, RI -denies CP. EKG/ Trops ok. Continue BB aldo-op. OK to go for surgery -continue ACEI, BB, and ASA DVT ppx- SCDs Vasyl Lyon MD 08/08/2013 7:35 AM STOREROOM CLERK * Nuvia Silva RN - 08/10/2013 6:08 AM CST Summary: Pt alert. Showered self. New IV placed to left wrist. Pain medication administered with good pain management. VSS Nuvia Silva RN STOREROOM CLERK * Hema Woodson RN - 08/09/2013 11:54 PM CST Patient oriented to the floor from surgery without difficulty. Patient had a CAPD cath placed today. No issues with pain nor distress addressed. Call light and personal items placed within reach. Will continue to monitor. CHARIS Rodriguez STOREROOM CLERK * Renetta Person RN - 08/09/2013 11:35 AM CST Spoke with patient who is having Lap Rita this afternoon. Plan home with family upon discharge. Renetta Person RN/Stump [phone] STOREROOM CLERK * Vasyl Lyon MD - 08/09/2013 7:11 [...] for this basename: INR:3 in the last 04434 hours . Component Name 07/01/13 0804 02/22/13 1426 TSH 1.260 1.360 . Component Name 08/07/13 2152 08/07/13 1752 08/07/13 1305 TROPONIN <0.015 <0.015 <0.015 .No results found for this basename: MAGMGDL:3 in the last 12100 hours . Component Name 08/07/13 1305 LIPASE [...] u/s pending -GI consulted. Dd with Dr Melo. Surg consult obtained. CCK today Elevated LFTs -probably related to cholecystitis -GI consulted -recheck CMP in the morning HTN -BP stable -resumed home regimen Hypothyroidism -continue Tirosint H/o MS -stable H/o CAD, RI -denies CP. EKG/ Trops ok. Continue BB aldo-op. OK to go for surgery -continue ACEI, BB, and ASA Dd with pt DVT ppx- SCDs DVT Proph: Code Status: Vasyl Lyon MD 08/08/2013 7:11 AM STOREROOM CLERK * Mark Melo MD - 08/09/2013 6:42 AM CST GI [...] PLTCOUNT 215 205 236 Component Name 08/09/13 0439 SODIUM 140 POTASSIUM 3.9 CHLORIDE 108* CO2 [...] planned for today Additional liver labs pending STOREROOM CLERK * Freda Hernandez RN - 08/08/2013 3:46 PM CST patient resting in bed, no c/o pain nor discomfort at this time, call light in reach, will continueto monitor, patient Aware of surgery for gallbladder removal tomorrow, patient will be NPO after midnight. STOREROOM CLERK * Fern Ruth RN - 08/08/2013 2:29 PM CST Welcome letter and HHC letter given to pt/family along with admission packet. Initial CM screen completed. CM and JAILOR contact information reviewed. Names/numbers put on white [...] adressed Fern Ruth RN [employer] - [phone] STOREROOM CLERK * Vasyl Lyon MD - 08/08/2013 8:03 [...] for this basename: INR:3 in the last 71880 hours . Component Name 07/01/13 0804 02/22/13 1426 TSH 1.260 1.360 . Component Name 08/07/13 2152 08/07/13 1752 08/07/13 1305 TROPONIN <0.015 <0.015 <0.015 .No results found for this basename: MAGMGDL:3 in the last 80310 hours . Component Name 08/07/13 1305 LIPASE [...] u/s pending -GI consulted. Dd with Dr Melo. Surg consult obtained. Prob CCK Elevated LFTs -probably related to cholecystitis -GI consulted -recheck CMP in the morning HTN -BP stable -resumed home regimen Hypothyroidism -continue Tirosint H/o MS -stable H/o CAD, RI -denies CP. EKG/ Trops ok. Continue BB aldo-op. OK to go for surgery if suggested after eval -continue ACEI, BB, and ASA Dd with pt DVT ppx- SCDs DVT Proph: Code Status: Vasyl Lyon MD 08/08/2013 8:03 AM STOREROOM CLERK * Sonya Larkin RN - 08/08/2013 4:00 AM CST Shift summary:pt resting quietly in bed,ivf infusing,call light within reach,kept npo after midnight for abdominal ultrasound,abdominal pain and nausea controlled with dilaudid and zofran , voids without any problem. STOREROOM CLERK documented in this encounter H&P Notes * Marjan Topete PA-C - 08/07/2013 7:35 PM CST History and Physical Date of Admission: 08/07/2013 Patient's Primary Care Physician: Sveta Terry Name: Pool Rodriguez Age: 47 y.o. Race: Sex: female Chief Complaint/History of Present Illness Ms. Rodriguez is a 47yo female with a PMH of RI, HTN, HLD, MS, lap band, hypothyroidism ,depression who is presents with RUQ abdominal pain. Pt was seen at a hospital in [place], [place] last week for the same and was admitted for 5 days. Pt was supposed to have cholecystectomy, but LFTs were too elevated. She was to f/u outpt with a shaker tender, but has not seen them yet because [...] Hypertension Sister Social History Occupational History ??? [employer] Social History Main Topics ??? Smoking status: [...] -continue Tirosint H/o MS -stable H/o CAD, RI -denies CP -continue ACEI, BB, and ASA DVT ppx- SCDs STOREROOM CLERK * Vasyl Lyon MD - 08/07/2013 7:35 PM CST Agreed. Further additions as per my note STOREROOM CLERK documented in this encounter Procedure Notes * Document, Scanned - 08/10/2013 8:11 PM CSTAssociated Order(s): EKG 12-LEAD STOREROOM CLERK * Document, Scanned - 08/10/2013 11:28 AM CSTAssociated Order(s): EKG 12-LEAD STOREROOM CLERK * Document, Scanned - 08/10/2013 11:08 AM CSTAssociated Order(s): EKG 12-LEAD STOREROOM CLERK * Document, Scanned - 08/08/2013 8:41 AM CSTAssociated Order(s): EKG 12-LEAD STOREROOM CLERK * Document, Scanned - 08/08/2013 6:57 AM CSTAssociated Order(s): EKG 12-LEAD STOREROOM CLERK * Document, Scanned - 08/08/2013 6:47 AM CSTAssociated Order(s): EKG 12-LEAD STOREROOM CLERK documented in this encounter Consult Notes * [...] Pt was seen at an OSH in [place] last week and admitted for elevated liver enzymes. Was instructed to follow up as an outpt. [facility]ed [facility] for increased symptoms of RUQ abdominal [...] with cholangiogram 2. CAD: hx of prior RI s/p stent placement, was previously on antiplatement agent for about a year after stent placement Noah Alvares MD 08/08/2013 STOREROOM CLERK * Mark Melo MD - 08/08/2013 7:55 AM CST [facility] CONSULTATION REPORT PATIENT: POOL RODRIGUEZ MR#: [id number] ADMIT DATE: 08/07/2013 CSN: [id number] CONSULT DATE: : 1965 ATTENDING PHYS: KATHLEEN MUSTAFA ROOM: 0518 CONSULTING PHYSICIAN: MARK MELO MD HISTORY OF PRESENT ILLNESS: The patient is a 47-year-old white female, who is seen in consultation for elevated liver function tests. The patient was admitted to an outside hospital in [place], [place] 9 days prior. At the time [...] Due to persistent symptoms, she came to [facility] and was admitted. She continues to have [...] gastric band in 2009 performed at the [facility]. 6. Tonsillectomy. 7. Migraines. 8. Hypothyroidism. 9. [...] Primary liver disorder seems less likely. Mark Melo MD PBM/MODL #: [id number] cc: Sveta Terry MD STOREROOM CLERK * Mark Melo MD - 08/08/2013 7:16 AM CST Full consult dictated 47 y/o WF w/ post prandial RUQ pain and CP with nausea. Elevated LFTs. CT shows dilated GB, nml CBD. Imp: Acute Cholecystitis Agree w/ RUQ US Needs surgical consultation for GB removal with IOC Keep NPO Check AMA, SONJA, ASMA, Viral hep panel but seems unlikely to have a primary liver disorder STOREROOM CLERK documented in this encounter OR Notes * Operative - Mark Melo MD - 08/12/2013 9:34 PM CST [facility] OPERATIVE REPORT PATIENT: : POOL RODRIGUEZ MR#: [id number] ADMIT DATE: 08/07/2013 CSN: [id number] DATE OF SURGERY: : 1965 PHYSICIAN: Mark Melo MD ROOM: 0518 PREOPERATIVE DIAGNOSIS: POSTOPERATIVE DIAGNOSIS: PROCEDURES PERFORMED: Endoscopic retrograde cholangiopancreatography with biliary sphincterotomy. SURGEON: Mark Melo M.D. MEDICATIONS: MAC. FINDINGS: The patient was [...] A normal-appearing ampulla was visualized. A 44 [employer] sphincterotome was used to cannulate the [...] ESTIMATED BLOOD LOSS: COMPLICATIONS: CONDITION: DISPOSITION: Mark Melo MD PBM/MODL #: [id number] cc: MD Sveta Leger MD STOREROOM CLERK * Operative - Noah Alvares MD - 08/10/2013 9:50 AM CST [facility] Operative Report OPERATIVE REPORT PATIENT:Pool Rodriguez MR#: [id number]-[id number] Relationship Account Type Home Phone POOL RODRIGEUZ - 101* [address] / [place] [address]* Self P/F [phone] Employer Work Phone [employer] [address] / [place] [id number] ADMIT DATE: 08/07/2013 12:51 PM ACCT#: DATE [...] 2. Intraoperative cholangiogram SURGEON: Noah Alvares MD PAPER GOODS MACHINE OPERATOR: Beverley Ring RN ANESTHESIA: General endotracheal. PROCEDURE: [...] performed. An tello clamp with a 5 tamazight catheter was placed into the lumen of [...] non obstructive COMPLICATIONS: None. Noah Alvares MD STOREROOM CLERK documented in this encounter ED Notes * Dana Zimmer, - 08/07/2013 12:52 PM CST Provider contact with the patient: 08/07/2013 12:52 Pool Rodriguez [id number] [facility] EMERGENCY DEPARTMENT History Chief Complaint [...] medical history that includes--multiple sclerosis, CAD s/p RI, s/p coronary stent placement, hypertension, hyperlipidemia, hypothyroid, s/p lap gastric band--presents to the ER with c/o brown-colored urine. Pt states she was in [place], [place] last week visiting friend, began having upper abdominal pain and vomiting. Checked her blood pressure, which was high, and given her h/o RI, she went to the hospital. Admitted for [...] sinus. Rate: normal. Heart rate:75. Ectopy: none. [place]: normal. ST Segment Comments: NSTE EKG date [...] 56.3 44.0-73.0 % Lymph 33.1 20.0-43.0 % Hoke 8.0 5.0-13.0 % Eos 1.4 0.0-6.0 % Baso 0.9 0.0-2.0 % Immature Grans 0.3 0-1 % Neutro Abs 3.60 2.01-7.14 x10^9/L Lymph Abs 2.12 1.07-3.94 x10^9/L Hoke Abs 0.51 0.26-1.07 x10^9/L Eosin Abs 0.09 [...] Yellow, Dark Yellow Clarity UA Turbid Specific Grace UA >1.045 (*) 1.005-1.030 pH UA 5.0 [...] 48.3 44.0-73.0 % Lymph 37.6 20.0-43.0 % Hoke 11.0 5.0-13.0 % Eos 2.0 0.0-6.0 % Baso 0.9 0.0-2.0 % Immature Grans 0.2 0-1 % Neutro Abs 3.12 2.01-7.14 x10^9/L Lymph Abs 2.43 1.07-3.94 x10^9/L Hoke Abs 0.71 0.26-1.07 x10^9/L Eosin Abs 0.13 [...] Sveta Terry (PCP). Recommends/requests admitting patient to [facility] for GB ultrasound and consult to Dr. Melo for GI. Agrees with plan and accepts admission. 1555: IPC paged. 1559: All pertinent aspects of case discussed with Dr. Mustafa ([facility]). Agrees with plan and accepts admission. Care [...] behalf of Dr. Zimmer 08/07/2013 4:01 PM STOREROOM CLERK documented in this encounter Miscellaneous Notes * Miscellaneous Scans - Document, Scanned - 09/08/2013 9:15 AM CST STOREROOM CLERK * Miscellaneous Scans - Document, Scanned - 08/18/2013 4:31 PM CST STOREROOM CLERK * Miscellaneous Scans - Document, Scanned - 08/15/2013 5:47 PM CST STOREROOM CLERK * Miscellaneous Scans - Document, Scanned - 08/15/2013 5:47 PM CST STOREROOM CLERK * Miscellaneous Scans - Document, Scanned - 08/15/2013 5:47 PM CST STOREROOM CLERK * Miscellaneous Scans - Document, Scanned - 08/15/2013 5:47 PM CST STOREROOM CLERK documented in this encounter Plan of Treatment Upcoming Encounters Date Type Department Care Team (Late st Contact Info) Description 09/27/2024 2:20 PM FOOD STOREROOM CLERK Office Visit [facility]sc[facility] [address] [place] [address] [place] [address] [facility] [address] [place] [address] 09/28/2024 1:00 PM FOOD STOREROOM CLERK Office Visit [facility] [place] [address] [address] [facility] [address] [place] [address] [place] [address] [address] [facility] [address] [place] [address] Scheduled Orders Name Type Priority Associated Diagnoses Orde r Schedule ERCP GI Routine ONCE for 1 Occ urrences starting 08/12/2013 until 08/12/2013 ERCP GI Routine ONCE for 1 Occ urrences starting 08/12/2013 until 08/12/2013 documented as of this encounter Procedures Procedure Name Priority Date/Time Associated Diagnosis Comments COMPREHENSIVE METABOLIC PANEL AM Draw 08/14/2013 6:22 AM FOOD STOREROOM CLERK BASIC METABOLIC PANEL (CALCIUM TOTAL) AM Draw 08/13/2013 5:02 AM FOOD STOREROOM CLERK HEPATIC FUNCTION PANEL AM Draw 3 5:02 AM FOOD STOREROOM CLERK FL ERCP CBD ONLY Routine 08/12/2013 1:20 PM FOOD STOREROOM CLERK Pain CBC W AUTO DIFFERENTIAL AM Draw 08/11/20 13 4:23 AM FOOD STOREROOM CLERK COMPREHENSIVE METABOLIC PANEL AM Draw 08/11/2013 4:23 AM FOOD STOREROOM CLERK LAPAROSCOPIC CHOLECYSTECTOMY 08/10/2013 3:30 PM FOOD STOREROOM CLERK TROPONIN I STAT 08/10/2013 10:59 AM FOOD STOREROOM CLERK CKMB STAT 08/10/2013 10:59 AM FOOD STOREROOM CLERK EKG 12-LEAD Routine 08/10/2013 10:52 AM FOOD STOREROOM CLERK Abdominal pain, acute XR CHOLANGIOGRAM OPERATIVE Routine 08/10/2013 9:10 AM FOOD STOREROOM CLERK Pain in the abdomen PATHOLOGY TISSUE EXAM (STL) Routine 08/10/2013 8:00 AM FOOD STOREROOM CLERK CBC W AUTO DIFFERENTIAL AM Draw 08/10/20 13 4:24 AM FOOD STOREROOM CLERK Abdominal pain, acute Acute liver disease HTN (hypertension) Depressive Disorder, Not Elsewhere Classified Prediabetes Mixed hyperlipidemia Hypothyroidism COMPREHENSIVE METABOLIC PANEL AM Draw 08/10/2013 4:24 AM FOOD STOREROOM CLERK Abdominal pain, acute Acute liver disease HTN (hypertension) Depressive Disorder, Not Elsewhere Classified Prediabetes Mixed hyperlipidemia Hypothyroidism SMOOTH MUSCLE ANTIBODY W REFLEX TITER AM Draw 08/09/2013 10:45 AM FOOD STOREROOM CLERK Acute liver disease MITOCHONDRIAL ANTIBODY SCREEN AM Draw 08/09/2013 10:45 AM FOOD STOREROOM CLERK Acute liver disease SMOOTH MUSCLE ANTIBODY TITER Routine 08/09/2013 10:45 AM FOOD STOREROOM CLERK Acute liver disease SONJA BLOOD SCREEN W/REFLEX TITER AM Draw 08/09/2013 10:45 AM FOOD STOREROOM CLERK Acute liver disease HEPATITIS SCREEN ACUTE AM Draw 3 10:45 AM FOOD STOREROOM CLERK Acute liver disease COMPREHENSIVE METABOLIC PANEL AM Draw 08/09/2013 4:39 AM FOOD STOREROOM CLERK Abdominal pain, acute Acute liver disease HTN (hypertension) Depressive Disorder, Not Elsewhere Classified Prediabetes Mixed hyperlipidemia Hypothyroidism CBC W AUTO DIFFERENTIAL AM Draw 08/09/20 13 4:39 AM FOOD STOREROOM CLERK Abdominal pain, acute Acute liver disease HTN (hypertension) Depressive Disorder, Not Elsewhere Classified Prediabetes Mixed hyperlipidemia Hypothyroidism US ABDOMEN LIMITED Routine 08/08/2013 10 :14 AM FOOD STOREROOM CLERK Abdominal pain, acute CBC W AUTO DIFFERENTIAL AM Draw 08/08/20 13 3:36 AM FOOD STOREROOM CLERK Abdominal pain, acute Acute liver disease HTN (hypertension) Depressive Disorder, Not Elsewhere Classified Prediabetes Mixed hyperlipidemia Hypothyroidism COMPREHENSIVE METABOLIC PANEL AM Draw 08/08/2013 3:36 AM FOOD STOREROOM CLERK Abdominal pain, acute Acute liver disease HTN (hypertension) Depressive Disorder, Not Elsewhere Classified Prediabetes Mixed hyperlipidemia Hypothyroidism TROPONIN I Timed 08/07/2013 9:52 PM FOOD STOREROOM CLERK Abdominal pain, acute TROPONIN I Timed 08/07/2013 5:52 PM FOOD STOREROOM CLERK URINALYSIS REFLEX MICROSCOPIC REFLEX CULTURE STAT 08/07/2013 5:46 PM FOOD STOREROOM CLERK HCG URINE QUALITATIVE STAT 08/07/2013 5:46 PM FOOD STOREROOM CLERK CULTURE URINE Routine 08/07/2013 5:46 PM [address]OREROOM CL[address] CT ABDOMEN PELVIS W CONTRAST STAT 08/07/2013 2:55 PM FOOD STOREROOM CLERK Abdominal pain, acute TROPONIN I STAT 08/07/2013 1:05 PM FOOD STOREROOM CLERK CBC W AUTO DIFFERENTIAL STAT 08/07/20 1:05 PM FOOD STOREROOM CLERK COMPREHENSIVE METABOLIC PANEL STAT 08/07/2013 1:05 PM FOOD STOREROOM CLERK LIPASE BLOOD STAT 08/07/2013 1:05 PM FOOD STOREROOM CLERK EKG 12-LEAD STAT 08/07/2013 12:26 PM FOOD STOREROOM CLERK Abdominal pain, acute documented in this encounter Results * (ABNORMAL) COMPREHENSIVE METABOLIC PANEL (08/14/2013 6:22 AM FOOD STOREROOM CLERK) Pathologist [facility] Glucose 105 74 - 106 mg/dL 08/14/2013 7:24 AM FOOD STOREROOM CLERK [facility] Sodium 140 136 - 145 mmol/L 08/14/2013 7:24 AM FOOD STOREROOM CLERK [facility] Potassium 3.6 3.5 - 5.1 mmol/L 08/14/2013 7:24 AM [facility] Chloride 108(H) 98 - 107 mmol/L 08/14/2013 7:24 AM FOOD STOREROOM CLERK [facility] CO2 25 22 - 31 mmol/L 08/14/2013 7:24 AM FOOD STOREROOM CLERK [facility] Calcium 8.5 8.5 - 10.1 mg/dL 08/14/2013 7:24 AM [facility] Anion Gap 7 5 - 15 mmol/L 08/14/2013 7:24 AM FOOD STOREROOM CLERK [facility] BUN 9 7 - 21 mg/dL 08/14/2013 7:24 AM [facility] Creatinine 0.52 0.50 - 1.30 mg/dL 08/14/2013 7:24 AM FOOD STOREROOM CLERK [facility] eGFR by MDRD >60 >60 mL/min/1.7 3m2 08/14/2013 7:24 AM FOOD STOREROOM CLERK [facility] eGFR by MDRD >60 >60 mL/min/1.7 3m2 08/14/2013 7:24 AM FOOD STOREROOM CLERK [facility] Alkaline Phosphatase 105 38 - 126 U/L 08/14/2013 7:24 AM FOOD STOREROOM CLERK [facility] ALT 156(H) 12 - 78 U/L 08/14/2013 7:24 AM FOOD STOREROOM CLERK [facility] AST 31 5 - 40 U/L 08/14/2013 7:24 AM [facility] Protein Total 6.9 6.4 - 8.2 gm/dL 08/14/2013 7:24 AM [facility] Albumin 3.0(L) 3.4 - 5.0 gm/dL 08/14/2013 7:24 AM [facility] Bilirubin Total 0.5 0.2 - 1.0 mg/dL 08/14/2013 7:24 AM [facility] Blood BLOOD SPECIMEN / Unknown 08/14/2013 6:22 AM FOOD STOREROOM CLERK 08/14/2013 6:53 AM FOOD STOREROOM CLERK Chacha Christina MD LAB - CHEMISTRY ORD ERABLES Performing Organization Address City/State/[facility] Co de Phone Number [facility] [address] [place] [address] * (ABNORMAL) HEPATIC FUNCTION PANEL (08/13/2013 5:02 AM FOOD STOREROOM CLERK) Alkaline Phosphatase 108 38 - 126 U/L 08/13/2013 5:50 AM [facility] ALT 205(H) 12 - 78 U/L 08/13/2013 5:50 AM [facility] AST 42(H) 5 - 40 U/L 08/13/2013 5:50 AM [facility] Protein Total 6.6 6.4 - 8.2 gm/dL 08/13/2013 5:50 AM [facility] Albumin 3.0(L) 3.4 - 5.0 gm/dL 08/13/2013 5:50 AM [facility] Bilirubin Total 0.6 0.2 - 1.0 mg/dL 08/13/2013 5:50 AM [facility] Bilirubin Direct 0.3 0 - 0.3 mg/dL 08/13/2013 5:50 AM [facility] Blood BLOOD SPECIMEN / Unknown 08/13/2013 5:02 AM FOOD STOREROOM CLERK 08/13/2013 5:22 AM FOOD STOREROOM CLERK Vasyl Lyon MD LAB - CHEMISTRY ANUSHKA LOVE [facility] [address] [place] [address] * (ABNORMAL) BASIC METABOLIC PANEL (CALCIUM TOTAL) (08/13/2013 5:02 AM FOOD STOREROOM CLERK) Glucose 86 74 - 106 mg/dL 08/13/2013 5:50 AM [facility] Sodium 142 136 - 145 mmol/L 08/13/2013 5:50 AM [facility] Potassium 3.6 3.5 - 5.1 mmol/L 08/13/2013 5:50 AM [facility] Chloride 108(H) 98 - 107 mmol/L 08/13/2013 5:50 AM [facility] CO2 27 22 - 31 mmol/L 08/13/2013 5:50 AM [facility] Calcium 8.5 8.5 - 10.1 mg/dL 08/13/2013 5:50 AM [facility] Anion Gap 7 5 - 15 mmol/L 08/13/2013 5:50 AM [facility] BUN 8 7 - 21 mg/dL 08/13/2013 5:50 AM [facility] Creatinine 0.52 0.50 - 1.30 mg/dL 08/13/2013 5:50 AM [facility] eGFR by MDRD >60 >60 mL/min/1.7 3m2 08/13/2013 5:50 AM [facility] eGFR by MDRD >60 >60 mL/min/1.7 3m2 08/13/2013 5:50 AM [facility] Blood BLOOD SPECIMEN / Unknown 08/13/2013 5:02 AM FOOD STOREROOM CLERK 08/13/2013 5:22 AM FOOD STOREROOM CLERK aVsyl Lyon MD LAB - CHEMISTRY ANUSHKA LOVE Performing Organization Address City/[facility]/ZIP Co de Phone Number [facility] [address] [place] [address] * FL ERCP BILIARY ONLY (08/12/2013 1:20 PM FOOD STOREROOM CLERK) Anatomical Region Laterality Modality Abdomen Radiographic Louann ging 08/12/2013 1:29 PM FOOD STOREROOM CLERK Narrative 08/12/2013 2:59 PM FOOD STOREROOM CLERK FLUOROSCOPIC ERCP COMPLETE INDICATION: Right upper quadrant [...] Spring Sol on 08/12/2013 1:35 PM Mark Melo MD FLUOROSCOPY ORDERAB LES * (ABNORMAL) COMPREHENSIVE METABOLIC PANEL (08/11/2013 4:23 AM FOOD STOREROOM CLERK) Glucose 87 74 - 106 mg/dL 08/11/2013 5:09 AM [facility] Sodium 139 136 - 145 mmol/L 08/11/2013 5:09 AM [facility] Potassium 3.9 3.5 - 5.1 mmol/L 08/11/2013 5:09 AM [facility] Chloride 107 98 - 107 mmol/L 08/11/2013 5:09 AM [facility] CO2 28 22 - 31 mmol/L 08/11/2013 5:09 AM [facility] Calcium 8.2(L) 8.5 - 10.1 mg/dL 08/11/2013 5:09 AM [facility] Anion Gap 4(L) 5 - 15 mmol/L 08/11/2013 5:09 AM [facility] BUN 9 7 - 21 mg/dL 08/11/2013 5:09 AM [facility] Creatinine 0.63 0.50 - 1.30 mg/dL 08/11/2013 5:09 AM [facility] eGFR by MDRD >60 >60 mL/min/1.7 3m2 08/11/2013 5:09 AM [facility] eGFR by MDRD >60 >60 mL/min/1.7 3m2 08/11/2013 5:09 AM [facility] Alkaline Phosphatase 110 38 - 126 U/L 08/11/2013 5:09 AM [facility] ALT 329(H) 12 - 78 U/L 08/11/2013 5:09 AM [facility] AST 89(H) 5 - 40 U/L 08/11/2013 5:09 AM [facility] Protein Total 6.8 6.4 - 8.2 gm/dL 08/11/2013 5:09 AM [facility] Albumin 3.1(L) 3.4 - 5.0 gm/dL 08/11/2013 5:09 AM [facility] Bilirubin Total 0.6 0.2 - 1.0 mg/dL 08/11/2013 5:09 AM [facility] Blood BLOOD SPECIMEN / Unknown 08/11/2013 4:23 AM FOOD STOREROOM CLERK 08/11/2013 4:41 AM [facility] Vasyl Lyon MD LAB - CHEMISTRY ANUSHKA LOVE [facility] Organization Address City/State/ZIP Co de Phone Number [facility] [address] [place] [address] * (ABNORMAL) CBC W AUTO DIFFERENTIAL (08/11/2013 4:23 AM [facility]) WBC 8.1 4.4 - 10.7 x10^9/L 08/11/2013 5:02 AM [facility] RBC 4.33 3.80 - 5.20 x10^12/L 08/11/2013 5:02 AM [facility] Hemoglobin 12.6 12.0 - 15.6 gm/dL 08/11/2013 5:02 AM [facility] Hematocrit 38.0 35.9 - 45.5 % 08/11/2013 5:02 AM [facility] MCV 87.8 80.7 - 98.3 fl 08/11/2013 5:02 AM [facility] MCH 29.1 26.7 - 34.0 pg 08/11/2013 5:02 AM [facility] MCHC 33.2 30.8 - 35.9 gm/dL 08/11/2013 5:02 AM [facility] Platelet Count 195 153 - 416 x10^9/L 08/11/2013 5:02 AM [facility] RDW-CV 15.5(H) 12.1 - 14.9 % 08/11/2013 5:02 AM [facility] MPV 11.5 9.4 - 12.9 fl 08/11/2013 5:02 AM [facility] Neutrophils % 57.0 44.0 - 73.0 % 08/11/2013 5:02 AM [facility] Lymphocytes % 33.5 20.0 - 43.0 % 08/11/2013 5:02 AM [facility] Monocytes % 8.4 5.0 - 13.0 % 08/11/2013 5:02 AM [facility] Eosinophils % 0.5 0.0 - 6.0 % 08/11/2013 5:02 AM [facility] Basophils % 0.4 0.0 - 2.0 % 08/11/2013 5:02 AM [facility] Immature Granulocytes 0.2 0 - 1 % 08/11/2013 5:02 AM [facility] Neutrophil Absolute 4.60 2.01 - 7.14 x10^9/L 08/11/2013 5:02 AM [facility] Lymphocytes Absolute 2.70 1.07 - 3.94 x10^9/L 08/11/2013 5:02 AM [facility] Monocytes Absolute 0.68 0.26 - 1.07 x10^9/L 08/11/2013 5:02 AM [facility] Eosinophils Absolute 0.04 0 - 0.47 x10^9/L 08/11/2013 5:02 AM [facility] Basophils Absolute 0.03 0 - 0.08 x10^9/L 08/11/2013 5:02 AM [facility] Immature Granulocytes Absolute 0.02 0.00 - 0.06 x10^9/L 08/11/2013 5:02 AM [facility] Blood BLOOD SPECIMEN / Unknown 08/11/2013 4:23 AM FOOD STOREROOM CLERK 08/11/2013 4:41 AM FOOD STOREROOM CLERK Vasyl Lyon MD LAB - HEMATOLOGY ORD ERABLES Performing Organization Address City/[facility] Co de Phone Number [facility] [address] [place] [address] * CKMB (08/10/2013 10:59 AM FOOD STOREROOM CLERK) CK-MB 0.5 0.0 - 5.0 ng/mL 08/10/2013 11:40 AM FOOD STOREROOM CLERK [facility] Blood BLOOD SPECIMEN / Unknown Venipuncture / Unknown 08/10/2013 10:59 AM FOOD STOREROOM CLERK 08/10/2013 11:17 AM FOOD STOREROOM CLERK Dax Lebron DO LAB - CHEMISTRY FRANKE IVAN Performing Organization Address [facility] de Phone Number [facility] [address] [place] [address] * TROPONIN I (08/10/2013 10:59 AM FOOD STOREROOM CLERK) Troponin I <0.015 0.000 - 0.049 ng/mL 08/10/2013 11:26 AM FOOD STOREROOM CLERK [facility] Blood SERUM OR PLASMA SPECIMEN / Unknown 08/10/2013 10:59 AM FOOD STOREROOM CLERK 08/10/2013 11:03 AM FOOD STOREROOM CLERK Narrative [facility] - 08/10/2013 11:26 AM FOOD STOREROOM CLERK Note: Diagnosis of myocardial infarction requires symptoms [...] - CHEMISTRY ANUSHKA LOVE Performing Organization Address [facility] Co de Phone Number [facility] [address] [place] [address] * EKG 12-LEAD (08/10/2013 10:52 AM FOOD STOREROOM CLERK) Ventricular Rate 65 BPM [facility] Atrial Rate 65 BPM [facility] P-R Interval 176 ms [facility] QRS Duration ms 106 ms [facility] Q-T Interval ms 462 ms [facility] QTC Calculation (Bezet) 480 ms [facility] Calculated P [place] 43 degrees [facility] Calculated R [place] -14 degrees [facility] Calculated T [place] 17 degrees [facility] Interpretation EKG Normal sinus rhythm Prolonged QT Abnormal ECG Confirmed by LEIGH ANN SIMS MD ([id number]) on 08/10/2013 8:09:46 PM [facility] 08/10/2013 10:5 2 AM FOOD STOREROOM CLERK 08/10/2013 8:09 PM FOOD STOREROOM CLERK Narrative [facility] - 08/10/2013 8:09 PM FOOD STOREROOM CLERK Procedure Note Document, Scanned - 08/10/2013 11:08 AM CST Transcriptions Document, Scanned - 08/10/2013 11:28 AM CST Document, Scanned - 08/10/2013 8:11 PM CST Dax Lebron DO ECG ORDERABLES [facility] * XR CHOLANGIOGRAM OPERATIVE (08/10/2013 9:10 AM FOOD STOREROOM CLERK) Anatomical Region Laterality Modality Abdomen Radiographic Louann ging 08/10/2013 12:3 8 PM FOOD STOREROOM CLERK Impressions 08/10/2013 2:00 PM FOOD STOREROOM CLERK Small filling defects present on intraoperative cholangiogram. Edited by Genevieve Olmstead on 08/10/2013 12:58 PM Narrative 08/10/2013 2:00 PM FOOD STOREROOM CLERK FLUOROSCOPY OR CHOLANGIOGRAM INDICATION: Abdominal pain. 51 [...] + MICRO EXAM (STL) (08/10/2013 8:00 AM FOOD STOREROOM CLERK) Case Report Surgical Pathology Report ? Case: [id number] ? -------- Authorizing Provider: ??Noah Alvares MD ?Ordering Provider: ?? Noah Alvares MD ? Ordering Location: ? [facility] ?Collected: ? 08/10/2013 ??8:00 AM ? Pathologist: ? Hero Villela MD ?Received: ?08/10/2013 11:08 AM ?Signed Out: ?08/12/2013 12:42 PM (Final) ? Specimen: ?Gallbladder ? 08/12/2013 12:42 PM FOOD STOREROOM CLERK [facility] Final Diagnosis 1. ? Gallbladder, cholecystectomy: -- ? Cholecystitis, chronic, moderate -- ? Cholelithiasis [facility] 08/12/2013 12:42 PM FOOD STOREROOM CLERK [facility] Clinical History PROCEDURE: Laparoscopic cholecystectomy 08/12/2013 12:42 PM FOOD STOREROOM CLERK [facility] Gross Description Received in formalin [...] up to 0.2 cm in maximum thickness. ??Drain Cleaner Plumber sections are submitted in a cassette labeled A1. [facility]/12/2013 12[facility]42 PM FOOD STOREROOM CLERK [facility] Microscopic Description Microscopic examination supports the diagnosis. /[facility] 08/12/2013 12:42 PM [facility] Synoptic Report 08/12/2013 12:42 PM [facility] Pathology/Cytolo gy ENTIRE GALLBLADDER / Unknown 08/10/2013 8:00 AM FOOD STOREROOM CLERK 08/10/2013 11:08 AM FOOD STOREROOM CLERK Noah Alvares MD LAB - PATHOLOGY/CYTO LOGY ORDERABLES [facility] [address] [place] [address] * (ABNORMAL) COMPREHENSIVE METABOLIC PANEL (08/10/2013 4:24 AM FOOD STOREROOM CLERK) Glucose 113(H) 74 - 106 mg/dL 08/10/2013 5:21 AM [facility] Sodium 141 136 - 145 mmol/L 08/10/2013 5:21 AM [facility] Potassium 3.9 3.5 - 5.1 mmol/L 08/10/2013 5:21 AM [facility] Chloride 110(H) 98 - 107 mmol/L 08/10/2013 5:21 AM [facility] CO2 26 22 - 31 mmol/L 08/10/2013 5:21 AM [facility] Calcium 8.5 8.5 - 10.1 mg/dL 08/10/2013 5:21 AM [facility] Anion Gap 5 5 - 15 mmol/L 08/10/2013 5:21 AM [facility] BUN 10 7 - 21 mg/dL 08/10/2013 5:21 AM [facility] Creatinine 0.51 0.50 - 1.30 mg/dL 08/10/2013 5:21 AM [facility] eGFR by MDRD >60 >60 mL/min/1.7 3m2 08/10/2013 5:21 AM [facility] eGFR by MDRD >60 >60 mL/min/1.7 3m2 08/10/2013 5:21 AM [facility] Alkaline Phosphatase 133(H) 38 - 126 U/L 08/10/2013 5:21 AM [facility] ALT 461(H) 12 - 78 U/L 08/10/2013 5:21 AM [facility] AST 135(H) 5 - 40 U/L 08/10/2013 5:21 AM [facility] Protein Total 7.4 6.4 - 8.2 gm/dL 08/10/2013 5:21 AM [facility] Albumin 3.2(L) 3.4 - 5.0 gm/dL 08/10/2013 5:21 AM [facility] Bilirubin Total 0.8 0.2 - 1.0 mg/dL 08/10/2013 5:21 AM [facility] Blood BLOOD SPECIMEN / Unknown 08/10/2013 4:24 AM FOOD STOREROOM CLERK 08/10/2013 4:49 AM FOOD STOREROOM CLERK Vasyl Lyon MD LAB - CHEMISTRY ANUSHKA LOVE [facility] Organization Address City/State/ZIP Co de Phone Number [facility] [address] [place] [address] * (ABNORMAL) CBC W AUTO DIFFERENTIAL (08/10/2013 4:24 AM FOOD STOREROOM CLERK) WBC 4.9 4.4 - 10.7 x10^9/L 08/10/2013 5:06 AM [facility] RBC 4.75 3.80 - 5.20 x10^12/L 08/10/2013 5:06 AM [facility] Hemoglobin 14.0 12.0 - 15.6 gm/dL 08/10/2013 5:06 AM [facility] Hematocrit 41.8 35.9 - 45.5 % 08/10/2013 5:06 AM [facility] MCV 88.0 80.7 - 98.3 fl 08/10/2013 5:06 AM [facility] MCH 29.5 26.7 - 34.0 pg 08/10/2013 5:06 AM [facility] MCHC 33.5 30.8 - 35.9 gm/dL 08/10/2013 5:06 AM [facility] Platelet Count 217 153 - 416 x10^9/L 08/10/2013 5:06 AM [facility] RDW-CV 15.6(H) 12.1 - 14.9 % 08/10/2013 5:06 AM [facility] MPV 11.5 9.4 - 12.9 fl 08/10/2013 5:06 AM [facility] Neutrophils % 41.5(L) 44.0 - 73.0 % 08/10/2013 5:06 AM [facility] Lymphocytes % 47.2(H) 20.0 - 43.0 % 08/10/2013 5:06 AM [facility] Monocytes % 8.3 5.0 - 13.0 % 08/10/2013 5:06 AM [facility] Eosinophils % 2.2 0.0 - 6.0 % 08/10/2013 5:06 AM [facility] Basophils % 0.8 0.0 - 2.0 % 08/10/2013 5:06 AM [facility] Immature Granulocytes 0.0 0 - 1 % 08/10/2013 5:06 AM [facility] Neutrophil Absolute 2.05 2.01 - 7.14 x10^9/L 08/10/2013 5:06 AM [facility] Lymphocytes Absolute 2.33 1.07 - 3.94 x10^9/L 08/10/2013 5:06 AM [facility] Monocytes Absolute 0.41 0.26 - 1.07 x10^9/L 08/10/2013 5:06 AM [facility] Eosinophils Absolute 0.11 0 - 0.47 x10^9/L 08/10/2013 5:06 AM [facility] Basophils Absolute 0.04 0 - 0.08 x10^9/L 08/10/2013 5:06 AM [facility] Immature Granulocytes Absolute 0.00 0.00 - 0.06 x10^9/L 08/10/2013 5:06 AM [facility] Blood BLOOD SPECIMEN / Unknown 08/10/2013 4:24 AM FOOD STOREROOM CLERK 08/10/2013 4:49 AM FOOD STOREROOM CLERK Vasyl Lyon MD LAB - HEMATOLOGY ORD ERABLES [facility] [address] [place] [address] * SMOOTH MUSCLE ANTIBODY TITER (08/09/2013 10:45 AM FOOD STOREROOM CLERK) Smooth Muscle Antibody IgG Titer <1:20 <1:20 08/11/2013 4:38 PM FOOD STOREROOM CLERK [facility] Comment: INTERPRETIVE INFORMATION: ??Smooth Muscle Ab, IgG Titer ??Less than 1:20 ........ Negative - No antibody detected. ??1:20 - 1:80 ??.......... Weak Positive - Suggest repeat ?in two to three weeks with fresh ?specimen. ??1:160 or greater ...... Positive - Suggestive of ?autoimmune hepatitis or chronic ?active hepatitis. Blood specimen (specimen) BLOOD SPECIMEN / Unknown 08/09/2013 10:45 AM FOOD STOREROOM CLERK 08/09/2013 10:58 AM FOOD STOREROOM CLERK Mark Melo MD LAB - CHEMISTRY [employer] Performing Organization Address [facility] de Phone Number [facility] [address] [place] [address] * HEPATITIS SCREEN ACUTE (08/09/2013 10:45 AM FOOD STOREROOM CLERK) HAV Antibody IgM Non Reactive Non Reactive 08/09/2013 5:52 PM FOOD STOREROOM CLERK [facility] HBsAg Non Reactive Non Reactive 08/09/2013 5:52 PM FOOD STOREROOM CLERK [facility] HBc Antibody IgM Non Reactive Non Reactive 08/09/2013 5:52 PM FOOD STOREROOM CLERK [facility] HCV Antibody Screen Non Reactive Non Reactive 08/09/2013 5:52 PM FOOD STOREROOM CLERK [facility] Blood BLOOD SPECIMEN / Unknown 08/09/2013 10:45 AM FOOD STOREROOM CLERK 08/09/2013 10:58 AM FOOD STOREROOM CLERK Narrative [facility] - 08/09/2013 5:52 PM FOOD STOREROOM CLERK Nonreactive - Antibodies to HCV were not detected, result does not exclude early acute HCV infection. Mark Melo MD LAB - CHEMISTRY [employer] Performing Organization Address City/[facility] Co de Phone Number [facility] [address] [place] [address] * MITOCHONDRIAL ANTIBODY SCREEN (08/09/2013 10:45 AM FOOD STOREROOM CLERK) Mitochondrial M2 Antibody 7.9 0.0 - 20.0 Units 08/11/2013 2:53 AM [facility] Comment: INTERPRETIVE INFORMATION: Mitochondrial (M2) Antibody, IgG ??20.0 Units or less ......... Negative ??20.1 - 24.9 Units........... Equivocal ??25.0 Units or greater....... Positive Blood specimen (specimen) BLOOD SPECIMEN / Unknown 08/09/2013 10:45 AM FOOD STOREROOM CLERK 08/09/2013 10:58 AM FOOD STOREROOM CLERK Mark Melo MD LAB - CHEMISTRY ORD ERABLES [facility] [address] [place] [address] * (ABNORMAL) F-ACTIN (SMOOTH MUSCLE) ANTIBODY W REFLEX TITER (08/09/2013 10:45 AM FOOD STOREROOM CLERK) F-Actin Antibody IgG 30(H) 0 - 19 Units 08/11/2013 2:53 AM [facility] Comment: INTERPRETIVE INFORMATION: F-Actin (Smooth Muscle) Antibody, [...] BLOOD SPECIMEN / Unknown 08/09/2013 10:45 AM FOOD STOREROOM CLERK 08/09/2013 10:58 AM FOOD STOREROOM CLERK Mark Melo MD LAB - SEROLOGY ORDDante LOVE [facility] [address] [place] [address] * (ABNORMAL) SONJA BLOOD SCREEN W/REFLEX TITER (08/09/2013 10:45 AM FOOD STOREROOM CLERK) SONJA Positive(A) Negative 08/10/2013 1:40 PM FOOD STOREROOM CLERK [facility] SONJA Titer 1:40 Negative, <1:40, 1:40, 1:80 Titer 08/10/2013 1:40 PM FOOD STOREROOM CLERK [facility] SONJA Pattern Homogeneous 08/10/2013 1:40 PM FOOD STOREROOM CLERK [facility] Blood BLOOD SPECIMEN / Unknown 08/09/2013 10:45 AM FOOD STOREROOM CLERK 08/09/2013 10:58 AM FOOD STOREROOM CLERK Mark Melo MD LAB - CHEMISTRY ORD SHARABLES Performing Organization Address City/[facility]/ZIP Co de Phone Number [facility] [address] [place] [address] * (ABNORMAL) COMPREHENSIVE METABOLIC PANEL (08/09/2013 4:39 AM FOOD STOREROOM CLERK) Glucose 83 74 - 106 mg/dL 08/09/2013 5:30 AM [facility] Sodium 140 136 - 145 mmol/L 08/09/2013 5:30 AM [facility] Potassium 3.9 3.5 - 5.1 mmol/L 08/09/2013 5:30 AM [facility] Chloride 108(H) 98 - 107 mmol/L 08/09/2013 5:30 AM [facility] CO2 26 22 - 31 mmol/L 08/09/2013 5:30 AM [facility] Calcium 8.8 8.5 - 10.1 mg/dL 08/09/2013 5:30 AM [facility] Anion Gap 6 5 - 15 mmol/L 08/09/2013 5:30 AM [facility] BUN 8 7 - 21 mg/dL 08/09/2013 5:30 AM [facility] Creatinine 0.55 0.50 - 1.30 mg/dL 08/09/2013 5:30 AM [facility] eGFR by MDRD >60 >60 mL/min/1.7 3m2 08/09/2013 5:30 AM FOOD STOREROOM CLERK [facility] eGFR by MDRD >60 >60 mL/min/1.7 3m2 08/09/2013 5:30 AM FOOD STOREROOM CLERK [facility] Alkaline Phosphatase 137(H) 38 - 126 U/L 08/09/2013 5:30 AM FOOD STOREROOM CLERK [facility] ALT 585(H) 12 - 78 U/L 08/09/2013 5:30 AM FOOD STOREROOM CLERK [facility] AST 185(H) 5 - 40 U/L 08/09/2013 5:30 AM [facility] Protein Total 7.5 6.4 - 8.2 gm/dL 08/09/2013 5:30 AM [facility] Albumin 3.2(L) 3.4 - 5.0 gm/dL 08/09/2013 5:30 AM [facility] Bilirubin Total 1.0 0.2 - 1.0 mg/dL 08/09/2013 5:30 AM [facility] Blood BLOOD SPECIMEN / Unknown 08/09/2013 4:39 AM FOOD STOREROOM CLERK 08/09/2013 4:59 AM FOOD STOREROOM CLERK Vasyl Lyon MD LAB - CHEMISTRY [place] [facility] Organization Address City/State/ZIP Co de Phone Number [facility] [address] [place] [address] * (ABNORMAL) CBC W AUTO DIFFERENTIAL (08/09/2013 4:39 AM FOOD STOREROOM CLERK) WBC 4.6 4.4 - 10.7 x10^9/L 08/09/2013 5:12 AM [facility] RBC 4.83 3.80 - 5.20 x10^12/L 08/09/2013 5:12 AM [facility] Hemoglobin 14.1 12.0 - 15.6 gm/dL 08/09/2013 5:12 AM [facility] Hematocrit 42.0 35.9 - 45.5 % 08/09/2013 5:12 AM [facility] MCV 87.0 80.7 - 98.3 fl 08/09/2013 5:12 AM [facility] LABORATORY MCH 29.2 26.7 - 34.0 pg 08/09/2013 5:12 AM [facility] DP LABORATORY MCHC 33.6 30.8 - 35.9 gm/dL 08/09/2013 5:12 AM FOOD STOREROOM CLERK [facility] Platelet Count 215 153 - 416 x10^9/L 08/09/2013 5:12 AM FOOD STOREROOM CLERK [facility] RDW-CV 15.7(H) 12.1 - 14.9 % 08/09/2013 5:12 AM FOOD STOREROOM CLERK DP LABORATORY MPV 11.2 9.4 - 12.9 fl 08/09/2013 5:12 AM FOOD STOREROOM CLERK DP LABORATORY Neutrophils % 34.5(L) 44.0 - 73.0 % 08/09/2013 5:12 AM FOOD STOREROOM CLERK DP LABORATORY Lymphocytes % 52.9(H) 20.0 - 43.0 % 08/09/2013 5:12 AM FOOD STOREROOM CLERK DP LABORATORY Monocytes % 9.3 5.0 - 13.0 % 08/09/2013 5:12 AM FOOD STOREROOM CLERK [facility] Eosinophils % 2.2 0.0 - 6.0 % 08/09/2013 5:12 AM FOOD STOREROOM CLERK DP LABORATORY Basophils % 1.1 0.0 - 2.0 % 08/09/2013 5:12 AM FOOD STOREROOM CLERK [facility] Immature Granulocytes 0.0 0 - 1 % 08/09/2013 5:12 AM [facility] Neutrophil Absolute 1.60(L) 2.01 - 7.14 x10^9/L 08/09/2013 5:12 AM FOOD STOREROOM CLERK DP LABORATORY Lymphocytes Absolute 2.45 1.07 - 3.94 x10^9/L 08/09/2013 5:12 AM FOOD STOREROOM CLERK [facility] Monocytes Absolute 0.43 0.26 - 1.07 x10^9/L 08/09/2013 5:12 AM FOOD STOREROOM CLERK [facility] Eosinophils Absolute 0.10 0 - 0.47 x10^9/L 08/09/2013 5:12 AM [facility] Basophils Absolute 0.05 0 - 0.08 x10^9/L 08/09/2013 5:12 AM FOOD STOREROOM CLERK [facility] Immature Granulocytes Absolute 0.00 0.00 - 0.06 x10^9/L 08/09/2013 5:12 AM [facility] Blood BLOOD SPECIMEN / Unknown 08/09/2013 4:39 AM FOOD STOREROOM CLERK 08/09/2013 4:59 AM FOOD STOREROOM CLERK Vasyl Lyon MD LAB - HEMATOLOGY ORD ERABLES [facility] [address] [place] [id number] * US ABD LIMITED (RUQ) (08/08/2013 10:14 AM FOOD STOREROOM CLERK) Anatomical Region Laterality Modality Abdomen Ultrasound 08/08/2013 11:1 7 AM FOOD STOREROOM CLERK Impressions 08/08/2013 11:55 AM FOOD STOREROOM CLERK 1. Right adrenal gland enlargement. 2. Distended gallbladder. Edited by Sheri Zhong on 08/08/2013 11:41 AM Narrative 08/08/2013 11:55 AM FOOD STOREROOM CLERK ULTRASOUND ABDOMEN LIMITED INDICATION: Abdominal pain and [...] (ABNORMAL) COMPREHENSIVE METABOLIC PANEL (08/08/2013 3:36 AM FOOD STOREROOM CLERK) Glucose 85 74 - 106 mg/dL 08/08/2013 4:10 AM FOOD STOREROOM CLERK [facility] Sodium 139 136 - 145 mmol/L 08/08/2013 4:10 AM [facility] Potassium 3.7 3.5 - 5.1 mmol/L 08/08/2013 4:10 AM [facility] Chloride 108(H) 98 - 107 mmol/L 08/08/2013 4:10 AM [facility] CO2 26 22 - 31 mmol/L 08/08/2013 4:10 AM [facility] Calcium 8.1(L) 8.5 - 10.1 mg/dL 08/08/2013 4:10 AM [facility] Anion Gap 5 5 - 15 mmol/L 08/08/2013 4:10 AM [facility] BUN 12 7 - 21 mg/dL 08/08/2013 4:10 AM [facility] Creatinine 0.54 0.50 - 1.30 mg/dL 08/08/2013 4:10 AM [facility] eGFR by MDRD >60 >60 mL/min/1.7 3m2 08/08/2013 4:10 AM [facility] eGFR by MDRD >60 >60 mL/min/1.7 3m2 08/08/2013 4:10 AM [facility] Alkaline Phosphatase 140(H) 38 - 126 U/L 08/08/2013 4:10 AM [facility] ALT 660(H) 12 - 78 U/L 08/08/2013 4:10 AM [facility] AST 219(H) 5 - 40 U/L 08/08/2013 4:10 AM [facility] Protein Total 6.8 6.4 - 8.2 gm/dL 08/08/2013 4:10 AM [facility] Albumin 3.1(L) 3.4 - 5.0 gm/dL 08/08/2013 4:10 AM [facility] Bilirubin Total 1.0 0.2 - 1.0 mg/dL 08/08/2013 4:10 AM [facility] Blood BLOOD SPECIMEN / Unknown 08/08/2013 3:36 AM FOOD STOREROOM CLERK 08/08/2013 3:46 AM FOOD STOREROOM CLERK Marjan Topete PA-C LAB - CHEMISTRY ANUSHKA LOVE [facility] [address] [place] [address] * (ABNORMAL) CBC W AUTO DIFFERENTIAL (08/08/2013 3:36 AM FOOD STOREROOM CLERK) [facility] WBC 6.5 4.4 - 10.7 x10^9/L 08/08/2013 3:57 AM [facility] DP LABORATORY RBC 4.71 3.80 - 5.20 x10^12/L 08/08/2013 3:57 AM [facility] Hemoglobin 13.9 12.0 - 15.6 gm/dL 08/08/2013 3:57 AM [facility] Hematocrit 41.1 35.9 - 45.5 % 08/08/2013 3:57 AM [facility] MCV 87.3 80.7 - 98.3 fl 08/08/2013 3:57 AM [facility] MCH 29.5 26.7 - 34.0 pg 08/08/2013 3:57 AM [facility] MCHC 33.8 30.8 - 35.9 gm/dL 08/08/2013 3:57 AM [facility] Platelet Count 205 153 - 416 x10^9/L 08/08/2013 3:57 AM [facility] RDW-CV 16.2(H) 12.1 - 14.9 % 08/08/2013 3:57 AM [facility] MPV 11.3 9.4 - 12.9 fl 08/08/2013 3:57 AM [facility] Neutrophils % 48.3 44.0 - 73.0 % 08/08/2013 3:57 AM [facility] Lymphocytes % 37.6 20.0 - 43.0 % 08/08/2013 3:57 AM [facility] Monocytes % 11.0 5.0 - 13.0 % 08/08/2013 3:57 AM [facility] Eosinophils % 2.0 0.0 - 6.0 % 08/08/2013 3:57 AM [facility] Basophils % 0.9 0.0 - 2.0 % 08/08/2013 3:57 AM [facility] Immature Granulocytes 0.2 0 - 1 % 08/08/2013 3:57 AM [facility] Neutrophil Absolute 3.12 2.01 - 7.14 x10^9/L 08/08/2013 3:57 AM [facility] Lymphocytes Absolute 2.43 1.07 - 3.94 x10^9/L 08/08/2013 3:57 AM FOOD STOREROOM CLERK [facility] Monocytes Absolute 0.71 0.26 - 1.07 x10^9/L 08/08/2013 3:57 AM FOOD STOREROOM CLERK [facility] Eosinophils Absolute 0.13 0 - 0.47 x10^9/L 08/08/2013 3:57 AM FOOD STOREROOM CLERK [facility] Basophils Absolute 0.06 0 - 0.08 x10^9/L 08/08/2013 3:57 AM FOOD STOREROOM CLERK [facility] Immature Granulocytes Absolute 0.01 0.00 - 0.06 x10^9/L 08/08/2013 3:57 AM FOOD STOREROOM CLERK [facility] Blood BLOOD SPECIMEN / Unknown 08/08/2013 3:36 AM FOOD STOREROOM CLERK 08/08/2013 3:46 AM FOOD STOREROOM CLERK Marjan Topete PA-C LAB - HEMATOLOGY ORD JAMIE Performing Organization Address [facility] Co de Phone Number [facility] [address] [place] [address] * TROPONIN I (08/07/2013 9:52 PM FOOD STOREROOM CLERK) [facility] Troponin I <0.015 0.000 - 0.049 ng/mL 08/07/2013 10:25 PM FOOD STOREROOM CLERK [facility] Blood BLOOD SPECIMEN / Unknown 08/07/2013 9:52 PM FOOD STOREROOM CLERK 08/07/2013 9:58 PM FOOD STOREROOM CLERK Narrative [facility] - 08/07/2013 10:25 PM FOOD STOREROOM CLERK Note: Diagnosis of myocardial infarction requires symptoms [...] - CHEMISTRY ANUSHKA LOVE Performing Organization Address [facility] Co de Phone Number [facility] [address] [place] [address] * TROPONIN I (08/07/2013 5:52 PM FOOD STOREROOM CLERK) [facility] Troponin I <0.015 0.000 - 0.049 ng/mL 08/07/2013 6:24 PM FOOD STOREROOM CLERK [facility] Blood BLOOD SPECIMEN / Unknown 08/07/2013 5:52 PM FOOD STOREROOM CLERK 08/07/2013 5:55 PM FOOD STOREROOM CLERK Narrative [facility] - 08/07/2013 6:24 PM FOOD STOREROOM CLERK Note: Diagnosis of myocardial infarction requires symptoms [...] - CHEMISTRY ORDE RABLES Performing Organization Address [facility] Co de Phone Number [facility] [address] [place] [address] * HCG URINE QUALITATIVE (08/07/2013 5:46 PM FOOD STOREROOM CLERK) [facility] hCG Qualitative Urine Negative Negative 08/07/2013 6:01 PM FOOD STOREROOM CLERK [facility] Urine URINE SPECIMEN OBTAINED BY CLEAN CATCH PROCEDURE / Unknown 08/07/2013 5:46 PM FOOD STOREROOM CLERK 08/07/2013 5:48 PM FOOD STOREROOM CLERK Dana Zimmer DO LAB - URINALYSIS ORD ERABLES Performing Organization Address [facility] de Phone Number [facility] [address] [place] [address] * (ABNORMAL) URINALYSIS ROUTINE W/REFLEX TO CULTURE (08/07/2013 5:46 PM FOOD STOREROOM CLERK) [facility] Color UA Dark Yellow Straw, Yellow, Dark Yellow 08/07/2013 6:06 PM FOOD STOREROOM CLERK [facility] Clarity UA Turbid 08/07/2013 6:06 PM FOOD STOREROOM CLERK [facility] Specific Grace UA >1.045(H) 1.005 - 1.030 08/07/2013 6:06 PM FOOD STOREROOM CLERK [facility] pH UA 5.0 5.0 - 8.0 pH 08/07/2013 6:06 PM [facility] Protein UA Negative Negative 08/07/2013 6:06 PM [facility] Blood UA Negative Negative 08/07/2013 6:06 PM [facility] Leukocyte UA Negative Negative 08/07/2013 6:06 PM [facility] Nitrite UA Negative Negative 08/07/2013 6:06 PM [facility] Glucose UA Negative Negative 08/07/2013 6:06 PM [facility] Ketone UA Negative Negative 08/07/2013 6:06 PM [facility] Bilirubin UA Negative Negative 08/07/2013 6:06 PM [facility] Urobilinogen UA 1.0 0.1 - 1.0 EU/dL 08/07/2013 6:06 PM [facility] WBC UA Auto 2-5 0-2, 2-5 #/hpf 08/07/2013 6:06 PM [facility] RBC UA Auto 0-2 0-2, 2-5 #/hpf 08/07/2013 6:06 PM [facility] Epithelial Cell UA Auto 5-10(A) 0-2, 2-5 #/hpf 08/07/2013 6:06 PM [facility] Bacteria UA Auto 1+(A) None seen 08/07/20 13 6:06 PM [facility] Hyaline Casts UA Auto 0-2 0 - 2 #/lpf 08/07/2013 6:06 PM [facility] Reflex Status Culture to follow 08/07/2013 6:06 PM [facility] Urine URINE SPECIMEN OBTAINED BY CLEAN CATCH PROCEDURE / Unknown 08/07/2013 5:46 PM FOOD STOREROOM CLERK 08/07/2013 5:48 PM [facility] Dana Zimmer DO LAB - URINALYSIS ORD ERABLES [facility] [address] [place] [address] * CULTURE URINE (08/07/2013 5:46 PM FOOD STOREROOM CLERK) Culture <10,000 CFU/mL normal urogenital lina 08/09/2013 6:20 AM [facility] Urine URINE SPECIMEN OBTAINED BY CLEAN CATCH PROCEDURE / Unknown 08/07/2013 5:46 PM FOOD STOREROOM CLERK 08/07/2013 5:48 PM FOOD STOREROOM CLERK Dana Zimmer DO LAB - MICROBIOLOGY O RDERABLES [facility] [address] [place], [facility] * CT ABDOMEN AND PELVIS WITH IV CONTRAST (08/07/2013 2:55 PM FOOD STOREROOM CLERK) Anatomical Region Laterality Modality Abdomen, Pelvis Computed Tomogra phy 08/07/2013 2:55 PM FOOD STOREROOM CLERK Narrative 08/07/2013 2:58 PM FOOD STOREROOM CLERK Examination: CT abdomen and pelvis with contrast. [...] ORDERABLES * LIPASE BLOOD (08/07/2013 1:05 PM FOOD STOREROOM CLERK) Pathologist [facility] Lipase 162 73 - 393 U/L 08/07/2013 1:33 PM FOOD STOREROOM CLERK [facility] Blood BLOOD SPECIMEN / Unknown 08/07/2013 1:05 PM FOOD STOREROOM CLERK 08/07/2013 1:10 PM FOOD STOREROOM CLERK Dana Zimmer DO LAB - CHEMISTRY ANUSHKA LOVE [facility] Organization Address City/State/ZIP Co de Phone Number [facility] [address] [place] [address] * TROPONIN I (08/07/2013 1:05 PM FOOD STOREROOM CLERK) Troponin I <0.015 0.000 - 0.049 ng/mL 08/07/2013 1:34 PM FOOD STOREROOM CLERK [facility] Blood BLOOD SPECIMEN / Unknown 08/07/2013 1:05 PM FOOD STOREROOM CLERK 08/07/2013 1:10 PM FOOD STOREROOM CLERK Narrative [facility] - 08/07/2013 1:34 PM FOOD STOREROOM CLERK Note: Diagnosis of myocardial infarction requires symptoms [...] sepsis. Dana Zimmer DO LAB - CHEMISTRY ANUSHKA LOVE [facility] [address] [place] [address] * (ABNORMAL) COMPREHENSIVE METABOLIC PANEL (08/07/2013 1:05 PM FOOD STOREROOM CLERK) Glucose 93 74 - 106 mg/dL 08/07/2013 1:33 PM [facility] Sodium 138 136 - 145 mmol/L 08/07/2013 1:33 PM [facility] Potassium 4.1 3.5 - 5.1 mmol/L 08/07/2013 1:33 PM [facility] Chloride 109(H) 98 - 107 mmol/L 08/07/2013 1:33 PM [facility] CO2 24 22 - 31 mmol/L 08/07/2013 1:33 PM [facility] Calcium 8.7 8.5 - 10.1 mg/dL 08/07/2013 1:33 PM [facility] Anion Gap 5 5 - 15 mmol/L 08/07/2013 1:33 PM [facility] BUN 16 7 - 21 mg/dL 08/07/2013 1:33 PM [facility] Creatinine 0.55 0.50 - 1.30 mg/dL 08/07/2013 1:33 PM [facility] eGFR by MDRD >60 >60 mL/min/1.7 3m2 08/07/2013 1:33 PM [facility] eGFR by MDRD >60 >60 mL/min/1.7 3m2 08/07/2013 1:33 PM [facility] Alkaline Phosphatase 179(H) 38 - 126 U/L 08/07/2013 1:33 PM [facility] ALT 915(H) 12 - 78 U/L 08/07/2013 1:33 PM [facility] AST 355(H) 5 - 40 U/L 08/07/2013 1:33 PM [facility] Protein Total 8.3(H) 6.4 - 8.2 gm/dL 08/07/2013 1:33 PM [facility] Albumin 3.7 3.4 - 5.0 gm/dL 08/07/2013 1:33 PM [facility] Bilirubin Total 1.0 0.2 - 1.0 mg/dL 08/07/2013 1:33 PM [facility] Blood BLOOD SPECIMEN / Unknown 08/07/2013 1:05 PM FOOD STOREROOM CLERK 08/07/2013 1:10 PM FOOD STOREROOM CLERK Dana Zimemr DO LAB - CHEMISTRY FRANKE IVAN [facility] [address] [place] [address] * (ABNORMAL) CBC W AUTO DIFFERENTIAL (08/07/2013 1:05 PM FOOD STOREROOM CLERK) WBC 6.4 4.4 - 10.7 x10^9/L 08/07/2013 1:16 PM [facility] RBC 5.38(H) 3.80 - 5.20 x10^12/L 08/07/2013 1:16 PM [facility] Hemoglobin 15.9(H) 12.0 - 15.6 gm/dL 08/07/2013 1:16 PM [facility] Hematocrit 46.2(H) 35.9 - 45.5 % 08/07/2013 1:16 PM [facility] MCV 85.9 80.7 - 98.3 fl 08/07/2013 1:16 PM [facility] MCH 29.6 26.7 - 34.0 pg 08/07/2013 1:16 PM [facility] MCHC 34.4 30.8 - 35.9 gm/dL 08/07/2013 1:16 PM [facility] Platelet Count 236 153 - 416 x10^9/L 08/07/2013 1:16 PM [facility] RDW-CV 16.4(H) 12.1 - 14.9 % 08/07/2013 1:16 PM [facility] MPV 10.8 9.4 - 12.9 fl 08/07/2013 1:16 PM [facility] Neutrophils % 56.3 44.0 - 73.0 % 08/07/2013 1:16 PM [facility] Lymphocytes % 33.1 20.0 - 43.0 % 08/07/2013 1:16 PM [facility] Monocytes % 8.0 5.0 - 13.0 % 08/07/2013 1:16 PM FOOD STOREROOM CLERK [facility] Eosinophils % 1.4 0.0 - 6.0 % 08/07/2013 1:16 PM FOOD STOREROOM CLERK [facility] Basophils % 0.9 0.0 - 2.0 % 08/07/2013 1:16 PM FOOD STOREROOM CLERK [facility] Immature Granulocytes 0.3 0 - 1 % 08/07/2013 1:16 PM FOOD STOREROOM CLERK [facility] Neutrophil Absolute 3.60 2.01 - 7.14 x10^9/L 08/07/2013 1:16 PM FOOD STOREROOM CLERK [facility] Lymphocytes Absolute 2.12 1.07 - 3.94 x10^9/L 08/07/2013 1:16 PM FOOD STOREROOM CLERK [facility] Monocytes Absolute 0.51 0.26 - 1.07 x10^9/L 08/07/2013 1:16 PM FOOD STOREROOM CLERK [facility] Eosinophils Absolute 0.09 0 - 0.47 x10^9/L 08/07/2013 1:16 PM FOOD STOREROOM CLERK [facility] Basophils Absolute 0.06 0 - 0.08 x10^9/L 08/07/2013 1:16 PM [facility] Immature Granulocytes Absolute 0.02 0.00 - 0.06 x10^9/L 08/07/2013 1:16 PM [facility] Blood BLOOD SPECIMEN / Unknown 08/07/2013 1:05 PM FOOD STOREROOM CLERK 08/07/2013 1:10 PM [facility] Dana Zimmer DO LAB - HEMATOLOGY ORD ERABLES [facility] [address] [place] [address] * EKG 12-LEAD (08/07/2013 12:26 PM FOOD STOREROOM CLERK) Ventricular Rate 75 BPM [facility] Atrial Rate 75 BPM [facility] P-R Interval 162 ms [facility] QRS Duration ms 90 ms [facility] Q-T Interval ms 422 ms [facility] QTC Calculation (Bezet) 471 ms [facility] Calculated P [place] 23 degrees [facility] Calculated R [place] -19 degrees [facility] Calculated T [place] 10 degrees [facility] Interpretation EKG Normal sinus rhythm Minimal voltage criteria for LVH, may be normal variant Cannot rule out Anterior infarct , age undetermined Abnormal ECG No previous ECGs available Confirmed by MD ROCIO, HERNAN ([id number]) on 08/08/2013 8:39:37 AM [facility] 08/07/2013 12:2 6 PM FOOD STOREROOM CLERK 08/08/2013 8:39 AM FOOD STOREROOM CLERK Narrative [facility] - 08/08/2013 8:39 AM FOOD STOREROOM CLERK Procedure Note Document, Scanned - 08/08/2013 6:47 [...] Action Action Date Dose Rate Site 0.9% nacl irrigation solution PRN, Other, Starting on Thu08/10/13 at 0718, Until Thu08/10/13 at 1007, Intra-op $ Given 08/10/2013 7:18 AM FOOD STOREROOM CLERK 1,000 mL bupivacaine 0.25% - epinephrine 1:200,000 (PF) injection PRN, Starting on Thu08/10/13 at 0718, Until Thu08/10/13 at 1007, Intra-op $ Given 08/10/2013 7:18 AM FOOD STOREROOM CLERK 20 mL lidocaine PF 0.5% (XYLOCAINE) 0.5 % injection PRN, Starting on Thu08/10/13 at 0718, Until Thu08/10/13 at 1007, Intra-op $ Given 08/10/2013 7:18 AM FOOD STOREROOM CLERK 20 mL documented in this encounter Active and Recently Administered Medications Times are shown in FOOD STOREROOM CLERK. Scheduled Medication Order 08/12/2013 08/13/2013 08/14/2013 0.9% NaCl injection 3 mL (CANCELED) 3 mL, Intracatheter, EVERY 8 HOURS, First dose on Thu08/10/13 at 1415, Until Discontinued, For Saline Lock flushes if one is inserted for Endoscopy procedure., Pre-procedure (GI) 0601 ($ Given - Provider: Parul Moreno RN)1457 ($ Given - Provider: Ni Gonzalez RN)2218 ($ Given - Provider: Donna Huffman, CHARIS) 0619 ($ Given - Provider: Donna Huffman, CHARIS)1409 ($ Given - Provider: Roxanna Lawson, CHARIS)2101 ($ Given - Provider: Zulema Conde, CHARIS) 0600 (Not Administered - Provider: Zulema Conde RN - Reason: IV Currently Infusing) aspirin tablet 325 mg (CANCELED) 325 mg, Oral, DAILY, First dose on 08/07/13 at 2030, Until Discontinued 0800 (Held - [...] Oral, DAILY BEFORE BREAKFAST, First dose on Thu08/08/13 at 0630, Until Discontinued 1454 ($ Given - Provider: Ni Gonzalez RN) 0619 ($ Given - Provider: Donna Huffman RN) 0616 ($ Given - Provider: Zulema Conde RN) lisinopril (PRINIVIL; ZESTRIL) tablet 40 mg (CANCELED) [...] Oral, 2 TIMES DAILY, First dose on Thu08/07/13 at 2100, Until Discontinued, Hold for SBP <110 0925 ($ Given - Provider: Ni Gonzalez RN)2218 ($ Given - Provider: Donna Huffman, CHARIS) 0906 ($ Given - Provider: Roxanna Lawson RN)2058 ($ Given - Provider: Zulema Conde, CHARIS) 0848 ($ Given - Provider: Roxanna Lawson, CHARIS) miconazole (MONISTAT) vaginal suppository 200 mg (CANCELED) 200 mg, Vaginal, AT BEDTIME, First dose on 08/13/13 at 2100, Until Discontinued 2058 ($ Given - Provider: Zuelma Conde, CHARIS) ondansetron (ZOFRAN) injection 4 mg (COMPLETED) 4 mg, Intravenous, ONCE, 1 dose, On Thu08/12/13 at 1245 1245 ($ Given - Provider: Ofelia Hernandez RN) senna-docusate (SENOKOT-S) tablet 1 Tab (CANCELED) 1 tablet, Oral, DAILY, First dose on 08/13/13 at 1315, Until Discontinued 1409 ($ Given - Provider: Roxanna Lawson RN) 0848 ($ Given - Provider: Roxanna Lawson RN) Continuous Medication Order 08/12/2013 08/13/2013 08/14/2013 0.9% NaCl infusion (CANCELED) at 75 mL/hr, Intravenous, CONTINUOUS, Starting on 08/07/13 at 1700, Until 08/14/13 at 1431 1804 ($ New Bag/Syringe - Provider: Ni Gonzalez RN) 0620 ($ New Bag/Syringe - Provider: Donna Huffman, CHARIS)1904 ($ New Bag/Syringe - Provider: Zulema Conde, CHARIS) 0701 ($ New Bag/Syringe - Provider: Roxanna [...] CHARIS) 1414 ($ Given - Provider: Roxanna Lawson RN)2058 ($ Given - Provider: Zulema Conde RN) HYDROmorphone (DILAUDID) injection 0.5 mg (CANCELED) 0.5 mg, Intravenous, EVERY 2 HOURS PRN, Pain, Starting on 08/10/13 at 1845, Until 08/12/13 at 1121, For severe pain (pain scale score of 7-10) 0609 ($ Given - Provider: Parul Moreno RN) HYDROmorphone (DILAUDID) injection 0.5 mg (CANCELED) 0.5 mg, Intravenous, EVERY 4 HOURS PRN, Pain, Starting on 08/12/13 at 1130, Until 08/13/13 at 1243, For severe pain (pain scale score of 7-10) 2218 ($ Given - Provider: Donna Huffman RN) magnesium hydroxide (MILK OF MAGNESIA) suspension 30 [...] 1431 1230 ($ Given - Provider: Ofelia Hernandez RN) documented in this encounter Care Teams Ribbon Blocker Relationship Specialty Start Date End Date Sveta Rai MD PCP - General Internal Medicine 02/22/13 12/07/16 documented as of this encounter
--- OUTSIDE RECORDS SUMMARY | 2024-09-18 09:37 | XMS_ITS | Encounter Summary ---
Author Organization [facility] Address [address] [facility] [place] [address] Care Team Providers Care Vortex Operator Name Role Phone Sveta Rai MD Primary Care Provider Reason for Visit * Reason Comments Hypertension 2 month f/u Encounter Details Date Type Department Care Team (Latest Contact Info) Description 05/02/2013 11:30 AM CDT Office Visit [facility] - Family Medicine [id number] [place] [address] Sveta Rai MD [address] [place] [address] DR NOONAN [address] [place] [id number] Depressive disorder, not elsewhere classified (Primary Dx); HTN (hypertension); Prediabetes; Mixed hyperlipidemia Social History Tobacco Use Types Packs/Day Years [...] Reading Time Taken Comments Blood Pressure 138/88 05/02/2013 11:32 AM CDT Pulse 74 05/02/2013 11:32 AM CDT Temperature - - Respiratory Rate 18 05/02/2013 11:32 AM CDT Oxygen Saturation - - Inhaled Oxygen Concentration - - Weight 103.9 kg (229 lb) 05/02/2013 11:32 AM CDT Height 162.6 cm (5' 4 ) 05/02/2013 11:32 AM CDT Body Mass Index 39.31 05/02/2013 11:32 AM CDT documented in this encounter Progress Notes * Sveta Terry MD - 05/02/2013 11:43 AM CDT SUBJECTIVE: Lucretia Rodriguez is a 47 y.o. female with Chief Complaint Patient presents with ??? Hypertension 2 month f/u HPI: she is here to f/u on HTN, no complaints of CP,SOB or lightheadedness. Labs reviewed with her.Said she used to be on Lipitor and fenofibrate but ran out 2 months ago. Just started to walk q day. She also feel depressed and lack of interest in the stuff that used to make her happy. Used to be on SSRI in the past, she is under a lot of pressure. No suicidal thoughts or ideations. Past Medical History Diagnosis Date ??? Heart attack 2010 ??? HTN (hypertension) ??? Hyperlipemia ??? Multiple sclerosis 2006 ??? H/O heart artery stent x1 ??? H/O laparoscopic adjustable gastric banding 2009 ??? S/P tonsillectomy ??? Migraine ??? Hypothyroid History Social History ??? Marital Status: Unknown Spouse Name: N/A Number of Children: 2 ??? Years of Education: N/A Occupational History ??? [employer] Social History Main Topics ??? Smoking [...] Latex Review of Systems: General ROS: negative Ophthalmic ROS: negative ENT ROS: negative Psychiatry: depression. Respiratory ROS: no cough, shortness of breath, or wheezing Cardiovascular ROS: no chest pain or dyspnea on exertion Gastrointestinal ROS: no abdominal pain, change in bowel habits, or black or bloody stools Genito-Urinary ROS: no dysuria, trouble voiding, or hematuria Neurological ROS: no TIA or stroke symptoms OBJECTIVE: BP 138/88 Pulse 74 Resp 18 Wt 103.874 kg (229 lb) BMI 39.31 kg/m2 General: alert, cooperative, no distress Eyes: PERRLA, EOMI, Sclera and conjunctiva clear Neck: range of motion is intact, no masses, thyroid not enlarged, no adenopathy, supple Heart: normal rate, regular rhythm, normal S1, S2, no murmurs, rubs, clicks or gallops Lungs: clear to auscultation bilaterally Abdomen: soft, non-tender, non-distended, normal bowel sounds Extremities: no clubbing, cyanosis or edema Pyschitry She cried when talked about her stressors. ASSESSMENT: 1. Depressive disorder, not elsewhere classified citalopram (CELEXA) 20 MG tablet 2. HTN (hypertension) lisinopril (PRINIVIL; ZESTRIL) 20 MG tablet increased from 10 mg, continue metoprolol tartrate IR (LOPRESSOR) 25 MG tablet 3. Prediabetes continue diet and exercise. 4. Mixed hyperlipidemia atorvastatin (LIPITOR) 40 MG tablet PLAN: Orders Placed This Encounter ??? lisinopril (PRINIVIL; ZESTRIL) 20 MG tablet Sig: Take 1 Tab by mouth once daily. Dispense: 90 Tab Refill: 3 ??? atorvastatin (LIPITOR) 40 MG tablet Sig: Take 1 Tab by mouth at bedtime. Dispense: 90 Tab Refill: 3 ??? citalopram (CELEXA) 20 MG tablet Sig: Take 1 Tab by mouth once daily. Dispense: 90 Tab Refill: 3 ??? metoprolol tartrate IR (LOPRESSOR) 25 MG tablet Sig: Take 1 Tab by mouth 2 times daily. Dispense: 60 Tab Refill: 2 f/u in 2 months. Continue diet and exercise, we discussed that and spent time on details. documented in this encounter Plan of Treatment Upcoming Encounters Date Type Department Care Team (Late st Contact Info) Description 09/27/2024 2:20 PM OPTICAL INSTRUMENT SPECIALIST Office Visit [facility] Neurosciences [address] [facility] [address] [place] [phone] [place] [address] [facility] [address] [place] [phone] 09/28/2024 1:00 PM OPTICAL INSTRUMENT SPECIALIST Office Visit [facility] [place] [address] [address] , [facility] [address] [place] [address] [place] [address] [address] [facility] [address] [place] [address] documented as of this encounter Visit Diagnoses Diagnosis Depressive disorder, not elsewhere classified- Primary HTN (hypertension) Unspecified essential hypertension Prediabetes Other abnormal glucose Mixed hyperlipidemia documented in this encounter Care Teams Vortex Operator Relationship Specialty Start Date End Date Sveta Rai MD PCP - General Internal Medicine 02/22/13 12/07/16 documented as of this encounter
--- OUTSIDE RECORDS SUMMARY | 2024-09-18 09:37 | XMS_ITS | Encounter Summary ---
Author Organization [facility] Address [address] [facility] [place] [address] Care Team Providers Care Battery Loader Name Role Phone Sveta Rai MD Primary Care Provider Reason for Visit * Reason Comments Hospital Follow-up gall stones and gall bladder removed Encounter Details Date Type Department Care Team (Latest Contact Info) Description 08/19/2013 1:00 PM TWISTER TENDER PAPER Office Visit [facility] - Family Medicine [id number] [place] [address] Sveta Rai MD [address] [place] [address] DR NOON[address] [place] [id number] Hospital discharge follow-up (Primary Dx); Acute cholecystitis; S/P laparoscopic cholecystectomy Social History Tobacco Use Types Packs/Day Years [...] Sign Reading Time Taken Comments Blood Pressure 138/94 08/19/2013 1:00 PM TWISTER TENDER PAPER Pulse 74 08/19/2013 1:00 PM TWISTER TENDER PAPER Temperature - - Respiratory Rate 20 08/19/2013 1:00 PM TWISTER TENDER PAPER Oxygen Saturation - - Inhaled Oxygen Concentration - - Weight 101.6 kg (224 lb) 08/19/2013 1:00 PM TWISTER TENDER PAPER Height 162.6 cm (5' 4 ) 08/19/2013 1:00 PM TWISTER TENDER PAPER Body Mass Index 38.45 08/19/2013 1:00 PM TWISTER TENDER PAPER documented in this encounter Progress Notes * Melinda Newsome - 08/22/2013 1:21 PM CSTQuick Note: Letter was sent TER TENDER PAPER * Sveta Terry MD - 08/21/2013 12:32 AM CSTQuick Note: Lft's heading in the right direction, much better now. CBC is good. TER TENDER PAPER * Sveta Terry MD - 08/19/2013 1:47 PM CST SUBJECTIVE: Lucretia Rodriguez is a 47 y.o. female with Chief Complaint Patient presents with ??? Hospital Follow-up gall stones and gall bladder removed Past Medical History Diagnosis Date ??? Heart attack 2010 ??? HTN (hypertension) ??? Hyperlipemia ??? Multiple sclerosis 2006 ??? H/O heart artery stent [id number] LAD( dr.Gauer) negrete ??? H/O laparoscopic adjustable [...] ??? Hypercholesterolemia Mother ??? Hypertension Sister HPI: the patient is here today for follow up after hospital stay. She was admitted initially with very elevated liver enzymes and ended up with Cholecystectomy due to acute cholecystitis, she has been at home for a week now, tolerating food okay, bowel movement normal. No nausea or vomiting. Using pain medicine only at night if needed. Wondering if she should be back on Lipitor and celexa which were stopped at the hospital. Review of Systems: Per HPI General ROS: negative Allergy and Immunology ROS: negative Respiratory ROS: no cough, shortness of breath, or wheezing Cardiovascular ROS: no chest pain or dyspnea on exertion Gastrointestinal ROS: no abdominal pain, change in bowel habits, or black or bloody stools Genito-Urinary ROS: no dysuria, trouble voiding, or hematuria Musculoskeletal ROS: negative Neurological ROS: no TIA or stroke symptoms OBJECTIVE: Wt Readings from Last 3 Encounters: 08/19/13 101.606 kg (224 lb) 08/07/13 102.967 kg (227 lb) 08/07/13 102.967 kg (227 lb) Temp Readings from Last 3 Encounters: 08/14/13 98.7 ??F 08/14/13 98.7 ??F 08/14/13 98.7 ??F BP Readings from Last 3 Encounters: 08/19/13 138/94 08/14/13 157/84 08/14/13 157/84 Pulse Readings from Last 3 Encounters: 08/19/13 74 08/14/13 81 08/14/13 81 General: alert, cooperative, no distress Head: NCAT w/o lesions or tenderness Eyes: PERRLA, EOMI, Sclera and conjunctiva clear Nose: normal OP: Normal. Neck: range of motion is intact, no masses, thyroid not enlarged, no adenopathy, supple Heart: normal rate, regular rhythm, normal S1, S2, no murmurs, rubs, clicks or gallops Lungs: clear to auscultation bilaterally Abdomen: soft without mass, non-tender, with normal bowel sounds, Surgery scars are healing well Back: symmetric, no curvature. ROM normal. No CVA tenderness. Extremities: no clubbing, cyanosis or edema Neuro: negative ASSESSMENT and PLAN: 1. Hospital discharge follow-up CBC W AUTO DIFFERENTIAL, COMPREHENSIVE METABOLIC PANEL 2. Acute cholecystitis CBC W AUTO DIFFERENTIAL, COMPREHENSIVE METABOLIC PANEL 3. S/P laparoscopic cholecystectomy COMPREHENSIVE METABOLIC PANEL May go back to work on Thursday, check CMP and CBC today. maybe start Celexa which was stopped at a hospital initially due to the elevated liver enzymes, keep off Lipitor for now, and we will be checking a lipid profile at her next appointment in September will decide on restarting then. paper for temporary disability will be filled over the time that she was off during her hospital stay. TER TENDER PAPER documented in this encounter Plan of Treatment Upcoming Encounters Date Type Department Care Team (Late st Contact Info) Description 09/27/2024 2:20 PM TWISTER TENDER PAPER Office Visit [facility] Neurosciences [address] [facility] [address] [place] [phone] [place] [address] [facility] [address] [place] [address] 09/28/2024 1:00 PM TWISTER TENDER PAPER Office Visit [facility] [place] [address] Michele Barrett, [address] [address] [place] [address] [address] [address] documented as of this encounter Procedures Procedure Name Priority Date/Time Associated Diagnosis Comments CBC W AUTO DIFFERENTIAL Routine 08/19/2013 2:09 PM TWISTER TENDER PAPER Hospital discharge follow-up Acute cholecystitis COMPREHENSIVE METABOLIC PANEL Routine 08/19/2013 2:09 PM TWISTER TENDER PAPER Hospital discharge follow-up Acute cholecystitis S/P laparoscopic cholecystectomy documented in this encounter Results * (ABNORMAL) COMPREHENSIVE METABOLIC PANEL (08/19/2013 2:09 PM TWISTER TENDER PAPER) Glucose 70 65 - 99 mg/dL [facility] ACCOUNT BILL BUN 15 6 - 24 mg/dL [facility] ACCOUNT BILL Creatinine 0.67 0.57 - 1.00 mg/dL [facility] ACCOUNT BILL eGFR by MDRD 104 >59 mL/min/1.7 3 [facility] ACCOUNT BILL eGFR by MDRD 120 >59 mL/min/1.7 3 [facility] ACCOUNT BILL BUN/Creatinine Ratio 22 9 - 23 [facility] ACCOUNT BILL Sodium 139 134 - 144 mmol/L [facility] ACCOUNT BILL Potassium 4.6 3.5 - 5.2 mmol/L [facility] ACCOUNT BILL Chloride 100 97 - 108 mmol/L [facility] ACCOUNT BILL CO2 24 19 - 28 mmol/L [facility] ACCOUNT BILL Calcium 9.6 8.7 - 10.2 mg/dL [facility] ACCOUNT BILL Protein Total 7.4 6.0 - 8.5 g/dL [facility] ACCOUNT BILL Albumin 4.1 3.5 - 5.5 g/dL [facility] ACCOUNT BILL Globulin Total 3.3 1.5 - 4.5 g/dL [facility] ACCOUNT BILL Albumin/Globulin Ratio 1.2 1.1 - 2.5 [facility] ACCOUNT BILL Bilirubin Total 0.4 0.0 - 1.2 mg/dL [facility] ACCOUNT BILL Alkaline Phosphatase 105 39 - 117 IU/L [facility] ACCOUNT BILL AST 23 0 - 40 IU/L [facility] ACCOUNT BILL ALT 52(H) 0 - 32 IU/L [facility] ACCOUNT BILL Blood specimen (specimen) BLOOD SPECIMEN / Unknown 08/19/2013 2:09 PM TWISTER TENDER PAPER 08/19/2013 5:39 PM TWISTER TENDER PAPER Narrative Resulting Agency Comment [facility] [address] ??[facility] [id number] Sveta Gross MD LAB - CHEMISTRY ORD ERABLES [facility] ACCOUNT BILL * (ABNORMAL) CBC W AUTO DIFFERENTIAL (08/19/2013 2:09 PM TWISTER TENDER PAPER) WBC 8.5 3.4 - 10.8 x10E3/uL [facility] ACCOUNT BILL RBC 5.36(H) 3.77 - 5.28 x10E6/uL [facility] ACCOUNT BILL Hemoglobin 15.6 11.1 - 15.9 g/dL [facility] ACCOUNT BILL Hematocrit 46.4 34.0 - 46.6 % [facility] ACCOUNT BILL MCV 87 79 - 97 fL [facility] ACCOUNT BILL MCH 29.1 26.6 - 33.0 pg [facility] ACCOUNT BILL MCHC 33.6 31.5 - 35.7 g/dL [facility] ACCOUNT BILL RDW 14.6 12.3 - 15.4 % [facility] ACCOUNT BILL Platelet Count 286 155 - 379 x10E3/uL [facility] ACCOUNT BILL Granulocytes % 46 40 - 74 % [facility] ACCOUNT BILL Lymphocytes % 38 14 - 46 % [facility] ACCOUNT BILL Monocytes % 10 4 - 12 % [facility] ACCOUNT BILL Eosinophils % 4 0 - 5 % [facility] ACCOUNT BILL Basophils % 2 0 - 3 % [facility] ACCOUNT BILL Immature Cells NOT NEEDED [facility] ACCOUNT BILL Comment:Ancillary determined the test is not needed Granulocytes Absolute 3.9 1.4 - 7.0 x10E3/uL [facility] ACCOUNT BILL Lymphocytes Absolute 3.2(H) 0.7 - 3.1 x10E3/uL [facility] ACCOUNT BILL Monocytes Absolute 0.8 0.1 - 0.9 x10E3/uL [facility] ACCOUNT BILL [...] Blood specimen (specimen) BLOOD SPECIMEN / Unknown 08/19/2013 2:09 PM TWISTER TENDER PAPER 08/19/2013 5:39 PM TWISTER TENDER PAPER Narrative Resulting Agency Comment [facility] [address] ??[facility] [id number] Sveta Gross MD LAB - HEMATOLOGY OR DERABLES [facility] ACCOUNT BILL documented in this encounter Visit Diagnoses Diagnosis Hospital discharge follow-up- Primary Other follow-up examination Acute cholecystitis S/P laparoscopic cholecystectomy Other postprocedural status documented in this encounter Care Teams Battery Loader Relationship Specialty Start Date End Date Sveta Rai MD PCP - General Internal Medicine 02/22/13 12/07/16 documented as of this encounter
--- OUTSIDE RECORDS SUMMARY | 2024-09-18 09:37 | XMS_ITS | Encounter Summary ---
Author Organization [facility] Address [address] [place] [address] Care Team Providers Care Basin Cleaner Name Role Phone Sveta Rai MD Primary Care Provider Reason for Visit * Auth/Cert - Closed Specialty Diagnoses / Procedures Referred By Ernesto barrios Referred To Contact Diagnoses Abdominal pain Referral ID Status Reason Start Date Expiration Date Visits Re quested Visits Authorized [id number] Closed 1 1 Encounter Details Date Type Department Care Team (Late st Contact Info) Description 08/12/2013 11:34 AM INSPECTOR RETURNED MATERIALS Anesthesia Event [facility] - Endoscopy Services [address] [place] [address] Wong Ruiz, PARTNERSHIP DEVELOPMENT MANAGER-LAGGING MACHINE OPERATOR [id number] [place] [address] ANESTHESIA DEPARTMENT [place], [place] [id number] Anesthesia Record Procedure Summary Procedure Name Responsible Anesthesiologist Anesthesia Start Time Anesthesia Stop Time ERCP 08/12/13 1134 08/12/13 1222 Events Date Time Event Comment 08/12/2013 1133 1134 An Start 1134 An Start Data 1200 Elect Sign The providers l isted as staff are the responsible providers for the case. 1219 an stop data 1222 An Stop 1222 Quick Note Out of departme nt. See paper record for drugs and vitals Meds * Agents No agents on file. * Blood No blood administrations on file. Lines, Drains, and Airways Type Details Placement Removal Peripheral IV Date: 08/10/13; Time : 0500; Orientation: Left; Placed By: CHARIS gordon; Tolerance: Moderate 08/10/13 0500 by Nuvia Silva RN 08/14/13 1138 by Roxanna Lawson APRN-CNP RETIRED Procedural Site 08/10/13; 0833; Midline; Abdomen; Laparoscopic; 08/14/13; 1931 08/10/13 0833 by Ca Talbert RN 08/14/131930 by Generic, Auto Release documented in this [...] as of this encounter Progress Notes * Wong Ruiz CRNA - 08/12/2013 12:28 PM CST ANESTHESIA POSTPROCEDURE EVALUATION Lucretia Rodriguez is a 47 y.o. female Temp: 36.4 ??C Pulse: 75 Resp: 20 BP: 161/103 mmHg SpO2: 92 % Pain Rating Score #: 9 A postop evaluation was performed on this patient with the following assessment: no apparent anesthesia complications Mental status: sufficiently recovered from acute administration of anesthesia to participate in theevaluation. Level of consciousness: awake General appearance: well-appearing Respiratory function: natural airway. Cardiac: stable Pain: comfortable/acceptable PONV: Treated / stable Postop hydration: adequate. Final anesthesia type: MAC Patient may be released from anesthesia care. ECTOR RETURNED MATERIALS documented in this encounter Consult Notes * Wong Ruiz CRNA - 08/12/2013 11:31 AM CST Pre-anesthesia Evaluation Procedure(s) (LRB): LAPAROSCOPIC CHOLECYSTECTOMY () Vital Signs: Temp: [36.4 ??C-37.1 ??C] Pulse: [46-64] Resp: [17-20] BP: (141-199)/(78-94) SpO2: [95 %-98 %] BMI: Estimated Body mass index is [...] 08/09/2013 ??? Cholecystectomy, laparoscopic 08/10/2013 LAPAROSCOPIC CHOLECYSTECTOMY reports that she has been smoking Cigarettes. [...] file. Facility-Administered Medications Ordered in Other Visits: HYDROmorphone (DILAUDID) injection 0.5 mg, Active, 0.5 mg, Intravenous, q4h PRN, Vasyl Lyon MD; naloxone (NARCAN) injection 0.04 mg, Active, 0.04 mg, Intravenous, post-OP multiple, Nitesh Scott MD; prochlorperazine (COMPAZINE) injection 5 mg, Active, 5 mg, Intravenous, post-OP multiple, Nitesh Scott MD, 5 mg at110/11/12 1030 labetalol (NORMODYNE; TRANDATE) injection 10 mg, Active, 10 mg, Intravenous, post-OP multiple, Dax Lebron, DO, 10 mg at 08/10/13 1145; 0.9% NaCl injection 3 mL, Active, 3 mL, Intracatheter, q8h, Mark Rose MD, 3 mL at 08/12/13 0601; 0.9% NaCl infusion, Active, , Intravenous, pre-Procedure continuous, Mark Rose MD hydrocodone-acetaminophen (NORCO) 5-325 MG tablet 1-2 Tab, Active, 1-2 Tab, Oral, q4h PRN, Vasyl Lyon MD, 2 Tab at 08/12/13 0142; 0.9% NaCl injection 1-10 mL, Active, 1-10 mL, Intracatheter, PRN, Dana Zimmer DO; metoprolol tartrate IR (LOPRESSOR) tablet 25 mg, Active, 25 mg, Oral, BID, Marjan Topete PA-C, 25 mg at 08/12/13 0925; ondansetron (ZOFRAN) injection 4 mg, Active, 4 mg, Intravenous,q4h PRN, Dana Zimmer DO, 4 mg at 08/10/13 1409 0.9% NaCl infusion, Active, , Intravenous, Continuous, Dana Zimmer DO, Last Rate: 75 mL/hr at 08/11/13 1214; levothyroxine (SYNTHROID) tablet 88 mcg, Active, 88 mcg, Oral, QDAY BEFORE BREAKFAST, Marjan Rocha YOLETTE Topete, 88 mcg at 08/11/13 0721; lisinopril (PRINIVIL; ZESTRIL) tablet 40 mg, Active, 40 mg, Oral, QDAY, Marjan Rocha YOLETTE Topete, 40 mg at 08/11/13 1042 nitroglycerin (NITROSTAT) tablet 0.4 mg, Active, 0.4 mg, Sublingual, q5 min PRN, Marjan Rocha YOLETTE Topete; aspirin tablet 325 mg, Active, 325 mg, Oral, QDAY, Marjan Rocha YOLETTE Topete, 325 mg at 08/11/13 1042 Physical Exam: NPO status: since midnight Oriented [...] patient Anesthesia consent: obtained Plan accepted yes ECTOR RETURNED MATERIALS documented in this encounter Plan of Treatment Upcoming Encounters Date Type Department Care Team (Late st Contact Info) Description 09/27/2024 2:20 PM INSPECTOR RETURNED MATERIALS Office Visit [facility] Neurosciences [address] [phone] [place] [address] [phone] 09/28/2024 1:00 PM INSPECTOR RETURNED MATERIALS Office Visit [facility] [place] [address] Michele [address] [address] [place] [address] [address] [facility] [address] [place] [address] documented as of this encounter Visit Diagnoses Not on filedocumented in this encounter Care Teams Basin Cleaner Relationship Specialty Start Date End Date Sveta Rai MD PCP - General Internal Medicine 02/22/13 12/07/16 documented as of this encounter
--- OUTSIDE RECORDS SUMMARY | 2024-09-18 09:37 | XMS_ITS | Encounter Summary ---
Author Organization [facility] Address [address] [facility] [place] [address] Care Team Providers Care Boardinghouse Keeper Name Role Phone Sveta Rai MD Primary Care Provider Reason for Visit * Reason Comments Hypertension 2 month f/u Depression 2 months Encounter Details Date Type Department Care Team (Late Contact Info) Description 06/29/2013 1:45 PM CDT Office Visit [facility] - Family Medicine [address] [place] [id number] Sveta Rai MD [address] [place] [address] DR NOONAN [address] [place] [id number] HTN (hypertension) (Primary Dx); Depressive disorder, not elsewhere classified; Prediabetes; Mixed hyperlipidemia; Hypothyroidism; Otitis media Social History Tobacco Use Types Packs/Day Years [...] Sign Reading Time Taken Comments Blood Pressure 104/82 06/29/2013 1:59 PM CDT Pulse 70 06/29/2013 1:59 PM CDT Temperature - - Respiratory Rate 18 06/29/2013 1:59 PM CDT Oxygen Saturation - - Inhaled Oxygen Concentration - - Weight 103.9 kg (229 lb) 06/29/2013 1:59 PM CDT Height 161.3 cm (5' 3.5 ) 06/29/2013 1:59 PM CDT Body Mass Index 39.93 06/29/2013 1:59 PM CDT documented in this encounter Progress Notes * Melinda Newsome - 07/04/2013 2:45 PM CDTQuick Note: Letter was sent * Sveta Terry MD - 07/04/2013 1:33 PM CDTQuick Note: Labs are ok continue the same medications. Watch your diet for chol since TG still high, if you cant control it with diet. Next step is adding zetia. * Sveta Terry MD - 06/29/2013 2:01 PM CDT SUBJECTIVE: Lucretia Rodriguez is a 47 y.o. female with Chief Complaint Patient presents with ??? Hypertension 2 month f/u ??? Depression 2 months Past Medical History Diagnosis Date ??? Heart [...] attack ??? Hypercholesterolemia Mother ??? Hypertension Sister HPI:f/u for depression, HTN, hypothyroid. Celexa have helped but would like to go up on the dose ifpossible. No SOB,CP. On metoprolol and lisinopril for HTN. She is taking her lipitor, will check her cholesterol. Also c/o left ear ache. Had URI last week. Review of Systems: Per HPI General ROS: negative Psychological ROS: positive for - depression negative for - suicidal ideation Respiratory ROS: no cough, shortness of breath, or wheezing Cardiovascular ROS: no chest pain or dyspnea on exertion Gastrointestinal ROS: no abdominal pain, change in bowel habits, or black or bloody stools Musculoskeletal ROS: negative Neurological ROS: no TIA or stroke symptoms OBJECTIVE: Wt Readings from Last 3 Encounters: 06/29/13 103.874 kg (229 lb) 05/02/13 103.874 kg (229 lb) 02/22/13 104.781 kg (231 lb) Temp Readings from Last 3 Encounters: 02/22/13 98.7 ??F Oral BP Readings from Last 3 Encounters: 06/29/13 104/82 05/02/13 138/88 02/22/13 146/84 Pulse Readings from Last 3 Encounters: 06/29/13 70 05/02/13 74 02/22/13 68 General: alert, cooperative, no distress Head: NCAT w/o lesions or tenderness Eyes: PERRLA, EOMI, Sclera and conjunctiva clear Ears: Left ear tympanic membrane red, bulging. R ear is normal. Nose: normal OP: Normal. Neck: range of motion is intact, no masses, thyroid not enlarged, no adenopathy, supple Heart: normal rate, regular rhythm, normal S1, S2, no murmurs, rubs, clicks or gallops Lungs: clear to auscultation bilaterally Abdomen: soft without mass, non-tender, with normal bowel sounds Back: symmetric, no curvature. ROM normal. No CVA tenderness. Extremities: no clubbing, cyanosis or edema Neuro: negative Skin: Skin color, texture, turgor normal. No rashes or lesions ASSESSMENT and PLAN: 1. HTN (hypertension) COMPREHENSIVE METABOLIC PANEL 2. Depressive disorder, not elsewhere classified citalopram (CELEXA) 40 MG tablet 3. Prediabetes HEMOGLOBIN A1C 4. Mixed hyperlipidemia COMPREHENSIVE METABOLIC PANEL, LIPID PROFILE 5. Hypothyroidism TSH 6. Otitis media amoxicillin-clavulanate (AUGMENTIN) 875-125 MG tablet left F/u in 3 months. documented in this encounter Plan of Treatment Upcoming Encounters Date Type Department Care Team (Late st Contact Info) Description 09/27/2024 2:20 PM [employer]TAINER PLANT Office Visit [facility] Neurosciences [id number] [place] [phone] [place] [address] [facility] [address] [place] [phone] 09/28/2024 1:00 PM [employer] Office Visit [facility] [place] [address] [place] , [address] [phone] [place] [address] [address] [facility] [address] [place] [address] documented as of this encounter Procedures Procedure Name Priority Date/Time Associated Diagnosis Comments HEMOGLOBIN A1C Routine 07/01/2013 8:04 AM CDT Prediabetes COMPREHENSIVE METABOLIC PANEL Routine 07/01/2013 8:04 AM CDT HTN (hypertension) Mixed hyperlipidemia TSH Routine 07/01/2013 8:04 AM CDT Hypothyroidism LIPID PROFILE Routine 07/01/2013 8:04 AM CDT Mixed hyperlipidemia documented in this encounter Results * (ABNORMAL) HEMOGLOBIN A1C (07/01/2013 8:04 AM CDT) Hemoglobin A1c 5.9(H) 4.8 - 5.6 % [facility] INSURANCE BILL Comment: ? . ? Increased risk for diabetes: 5.7 - 6.4 ? Diabetes: >6.4 ? Glycemic control for adults with diabetes: <7.0 Whole blood specimen (specimen) BLOOD SPECIMEN / Unknown 07/01/2013 8:04 AM CDT 07/01/2013 12:26 PM CDT Narrative Resulting Agency Comment [facility] [place] [id number] [facility] ??[facility] [id number] Sveta Gross MD LAB - CHEMISTRY ORD [employer] Performing Organization Address [facility] de Phone Number [facility] INSURANCE BILL * (ABNORMAL) LIPID PROFILE (07/01/2013 8:04 AM CDT) Cholesterol 150 100 - 199 mg/dL [facility] INSURANCE BILL Triglycerides 239(H) 0 - 149 mg/dL [facility] INSURANCE BILL HDL Cholesterol 33(L) >39 mg/dL [facility] INSURANCE BILL Comment: According to ATP-III Guidelines, HDL-C >59 mg/dL is considered a negative risk factor for CHD. VLDL Calculated 48(H) 5 - 40 mg/dL [facility] INSURANCE BILL LDL Calculated 69 0 - 99 mg/dL [facility] INSURANCE BILL Comment NOT NEEDED [facility] INSURANCE BILL Comment:Ancillary determined the test is not needed Blood specimen (specimen) BLOOD SPECIMEN / Unknown 07/01/2013 8:04 AM CDT 07/01/2013 12:26 PM CDT Narrative Resulting Agency Comment [facility] [place] [id number] [facility] ??[facility] [phone] Sveta Gross MD LAB - CHEMISTRY ORD [employer] Performing Organization Address [facility] de Phone Number [facility] INSURANCE BILL * TSH (07/01/2013 8:04 AM CDT) TSH 1.260 0.450 - 4.500 uIU/mL [facility] INSURANCE BILL Blood specimen (specimen) BLOOD SPECIMEN / Unknown 07/01/2013 8:04 AM CDT 07/01/2013 12:26 PM CDT Narrative Resulting Agency Comment [facility] ??[facility] [phone] Sveta Gross MD LAB - CHEMISTRY ORD ERABLES [facility] INSURANCE BILL * (ABNORMAL) COMPREHENSIVE METABOLIC PANEL (07/01/2013 8:04 AM CDT) Glucose 91 65 - 99 mg/dL [facility] INSURANCE BILL BUN 12 6 - 24 mg/dL [facility] INSURANCE BILL Creatinine 0.73 0.57 - 1.00 mg/dL [facility] INSURANCE BILL eGFR by MDRD 98 >59 mL/min/1.7 3 [facility] INSURANCE BILL eGFR by MDRD 113 >59 mL/min/1.7 3 [facility] INSURANCE BILL BUN/Creatinine Ratio 16 9 - 23 [facility] INSURANCE BILL Sodium 139 134 - 144 mmol/L [facility] INSURANCE BILL Potassium 4.0 3.5 - 5.2 mmol/L [facility] INSURANCE BILL Chloride 102 97 - 108 mmol/L [facility] INSURANCE BILL CO2 22 19 - 28 mmol/L [facility] INSURANCE BILL Calcium 9.2 8.7 - 10.2 mg/dL [facility] INSURANCE BILL Protein Total 6.9 6.0 - 8.5 g/dL [facility] INSURANCE BILL Albumin 4.3 3.5 - 5.5 g/dL [facility] INSURANCE BILL Globulin Total 2.6 1.5 - 4.5 g/dL [facility] INSURANCE BILL Albumin/Globulin Ratio 1.7 1.1 - 2.5 [facility] INSURANCE BILL Bilirubin Total 0.5 0.0 - 1.2 mg/dL [facility] INSURANCE BILL Alkaline Phosphatase 86 42 - 107 IU/L [facility] INSURANCE BILL Comment: Effective July 11, 2013 the reference interval for Alkaline ??Phosphatase, S will be changing to: ? Age ? Male ?Female ? 0 - ??1 day ?45 - 111 ? 45 - 111 ? 2 - ??5 days ? 46 - 119 ? 46 - 119 ? 6 - 10 days ? 48 - 229 ? 48 - 229 ?11 - 30 days ? 59 - 414 ? 59 - 414 ? 1 - ??6 months ? 91 - 445 ? 91 - 445 ? 7 - 12 months ?124 - 341 ?124 - 341 ? 1 - ??3 years ? 130 - 317 ?130 - 317 ? 4 - ??6 years ? 133 - 309 ?133 - 309 ? 7 - 12 years ? 134 - 349 ?134 - 349 ? 13 years ? 143 - 396 ? 68 - 209 ? 14 years ? 107 - 340 ? 62 - 149 ? 15 years ?84 - 254 ? 54 - 121 ? 16 years ?71 - 186 ? 49 - 108 ? 17 years ?61 - 146 ? 45 - 101 ? 18 years ?56 - 127 ? 43 - 101 ?>18 years ?39 - 117 ? 39 - 117 AST 42(H) 0 - 40 IU/L [facility] INSURANCE BILL ALT 54(H) 0 - 32 IU/L [facility] INSURANCE BILL Blood specimen (specimen) BLOOD SPECIMEN / Unknown 07/01/2013 8:04 AM CDT 07/01/2013 12:26 PM CDT Narrative Resulting Agency Comment [facility] [place] [address] ??[place] [phone] Sveta Gross MD LAB - CHEMISTRY ORD ERABLES [facility] INSURANCE BILL documented in this encounter Visit Diagnoses Diagnosis HTN (hypertension)- Primary Unspecified essential hypertension Depressive disorder, not elsewhere classified Prediabetes Other abnormal glucose Mixed hyperlipidemia Hypothyroidism Unspecified hypothyroidism Otitis media Unspecified otitis media documented in this encounter Care Teams Boardinghouse Keeper Relationship Specialty Start Date End Date Sveta Rai MD PCP - General Internal Medicine 02/22/13 12/07/16 documented as of this encounter
--- OUTSIDE RECORDS SUMMARY | 2024-09-18 09:37 | XMS_ITS | Encounter Summary ---
Author Organization [facility] Health Address [address] [place] [address] Care Team Providers Care Fermentologist Name Role Phone Sveta Rai MD Primary Care Provider Reason for Visit * Reason Comments Liver Problem states was recently admitted to hospital and was told my liver enzymes are high co nausea and abd pain and brown urine * Auth/Cert - Closed Specialty Diagnoses / Procedures Referred By Contlouie t Referred To Contact Diagnoses Abdominal pain Referral ID Status Reason Start Date Expiration Date Visits Re quested Visits Authorized [id number] Closed 1 1 Encounter Details Date Type Department Care Team (Late st Contact Info) Description 08/07/2013 12:51 PM DIRECTOR OF TESTING - 08/14/2013 1:31 PM DIRECTOR OF TESTING Hospital Encounter [facility] Pulmonary Med [address] [place] [address] [place] [address] [place] [address] [place] [address] [place] [address] Vasyl [place] [address] [facility] [address] [place] [address] Emergency Medicine Discharge Disposition: Home or Self Care Social [...] Comments Blood Pressure 157/84 08/14/2013 4:27 AM DIRECTOR OF TESTING Pulse 81 08/14/2013 4:27 AM DIRECTOR OF TESTING Temperature 37.1 ??C (98.7 ??F) 08/14/2013 4:27 AM CS T Respiratory Rate 16 08/14/2013 4:27 AM DIRECTOR OF TESTING Oxygen Saturation 97% 08/14/2013 4:27 AM DIRECTOR OF TESTING Inhaled Oxygen Concentration - - Weight 103 kg (227 lb) 08/07/2013 12:13 PM DIRECTOR OF TESTING Height 160 cm (5' 3 ) 08/07/2013 12:13 PM DIRECTOR OF TESTING Body Mass Index 40.21 08/07/2013 12:13 PM DIRECTOR OF TESTING documented in this encounter Discharge Summaries * Chacha Christina MD - 08/14/2013 3:41 PM CST Physician Discharge Summary Patient Name: Pool Rodriguez Date of : 1965 Admit date: 08/07/2013 Discharge date: 08/14/2013 Admitting Physician: Vasyl Lyon MD Attending Physician: Vasyl Lyon MD Discharge Physician: Chacha Christina MD Discharge Diagnosis 1.Acute cholecsysitits 2. HTN 3. Hypothyroidism 4. H/o CAD, CT Admission Diagnoses Patient Active Problem List Diagnosis [...] 4. Hypothyroidism -continue Tirosint 5. H/o CAD, CT Continue BB and home meds, ASA 6. [...] in 1 week. Follow up with - missile inspector preflight (stomach doctor) in 2 weeks, call [phone] for appointment. Follow up with - surgeon in 2 weeks, call [phone] for appointment. CBC and CMP in 1 week. Call office to schedule appointment(s). Bring all medications to next visit. Total time spent was greater than 30 minutes to review medications and place discharge orders/instructions and explain the discharge plan D/c summary note was faxed to PCP via the [employer] system CC: Sveta Terry CTOR OF TESTING documented in this encounter Discharge Instructions * Discharge Instructions* Roxanna Lawson RN - 08/14/2013 10:56 AM DIRECTOR OF TESTING If you have any questions regarding your [...] in 1 week. Follow up with - missile inspector preflight (stomach doctor) in 2 weeks, call [phone] for appointment. Follow up with - surgeon in 2 weeks, call [phone] for appointment. CBC and CMP in 1 [...] a copy of the discharge instructions. 08/14/2013 CTOR OF TESTING * Discharge Instructions* Document, Scanned - 08/15/2013 5:47 PM DIRECTOR OF TESTING CTOR OF TESTING documented in this encounter Medications at Time [...] ultimately considered. Discharge today from GI perspective CTOR OF TESTING * Zulema Conde RN - 08/14/2013 7:45 AM CST Patient A&Ox4. VSS. Patient had one bowel movement last night, but indicates constipation. Lastnorco administered at 2000. Patient states pain is tolerable at 3/10. Will continue to monitor. CTOR OF TESTING * Chacha Christina MD - 08/13/2013 11:02 [...] -continue Tirosint H/o MS -stable H/o CAD, CT Continue BB and home meds, ASA Constipation : Start on bowel regimen DVT ppx- SCDs Dc home if constipation resolves Chacha Christina MD 08/08/2013 11:02 AM CTOR OF TESTING * Mark Melo MD - 08/13/2013 10:43 [...] be off work for the next week. CTOR OF TESTING * Donna Huffman RN - 08/13/2013 7:00 AM CST End of Shift: Patient A+Ox4 with VSS. Patient complained of pain during the beginning of shift. Received norco and dilaudid and patient stated that it helped her pain tremendously. Will continue to monitor. CTOR OF TESTING * Ni Gonzalez RN - 08/12/2013 6:27 PM CST Shift note: Received patient from lieutenant shift supervisor nurse, pt was alert and oriented, VSS, and appeared comfortable and in no distress. Pt left unit for ERCP around 10am. Patient came back to 5N around 3pm. VSS, pain is under control, and pt appears comfortable and in no distress. Continue to monitor. CTOR OF TESTING * Raya Bowen RN - 08/12/2013 12:26 PM CST Normal exam CTOR OF TESTING * Vasyl Lyon MD - 08/12/2013 6:46 [...] for this basename: INR:3 in the last 56619 hours . Component Name 07/01/13 0804 02/22/13 1426 TSH 1.260 1.360 . Component Name 08/10/13 1059 08/07/13 2152 08/07/13 1752 TROPONIN <0.015 <0.015 <0.015 .No results found for this basename: MAGMGDL:3 in the last 62842 hours . Component Name 08/07/13 1305 LIPASE [...] -continue Tirosint H/o MS -stable H/o CAD, CT -denies CP. EKG/ Trops ok. Continue BB and home meds -continue ACEI, BB, and ASA Dd with pt Overall ok DC plan for AM DVT ppx- SCDs Vasyl Lyon MD 08/08/2013 6:46 AM CTOR OF TESTING * Parul Moreno RN - 08/12/2013 4:38 AM CST Shift summary: VSS. A&Ox4. C/o of abd pain managed with pain meds. Pt NPO for procedure today. At this time Pt in no apparent distress. Parul Delgadillo RN 08/12/2013 4:42 AM CTOR OF TESTING * Ni Gonzalez RN - 08/11/2013 5:31 PM CST Shift note: Received patient from lieutenant shift supervisor nurse, patient appeared comfortable and in no distress, VSS, and alert and oriented. Patient received [place] and Dilaudid for her severe abd pain today, tolerated medication well. NPO after midnight tonight for her ERCP procedure tomorrow. Patient appears comfortable and VSS. CTOR OF TESTING * Renetta Person RN - 08/11/2013 11:21 AM CST Problem: Discharge Planning Goal: Patient???s continuum of care needs are met Outcome: Ongoing Multidisciplinary rounds completed with waterproof bag sewer, CSN, Showroom Salesperson, and Failure Analysis Technician. Plan discharge to home with family. Renetta Person RN/Showroom [phone] CTOR OF TESTING * Sol Lynch RN - 08/11/2013 8:16 AM CST Endoscopy was informed of procedure in am 08/12/[address] Melo.Sol Lynch RN 08/11/2013 8:17 AM CTOR OF TESTING * Vasyl Lyon MD - 08/11/2013 7:12 [...] for this basename: INR:3 in the last 78455 hours . Component Name 07/01/13 0804 02/22/13 1426 TSH 1.260 1.360 . Component Name 08/10/13 1059 08/07/13 2152 08/07/13 1752 TROPONIN <0.015 <0.015 <0.015 .No results found for this basename: MAGMGDL:3 in the last 63849 hours . Component Name 08/07/13 1305 LIPASE [...] -continue Tirosint H/o MS -stable H/o CAD, CT -denies CP. EKG/ Trops ok. Continue BB and home meds -continue ACEI, BB, and ASA Dd with pt Overall ok DVT ppx- SCDs Vasyl Lyon MD 08/08/2013 7:12 AM CTOR OF TESTING * Salty Merlos RN - 08/11/2013 6:29 AM CST End of Shift: Patient complained of pain in abdomen, placed ice make on painful area, dilaudid for pain and norco for breakthrough. Up and [place], VSS, A&OX4, incision on abdomen intact with skin glue, no signs of infection, used SCDs throughout shift. Tolerating food. No signs of distress. CTOR OF TESTING * Philomena Chino, CHARIS - 08/10/2013 8:18 [...] to ambulate to bathroom and void successfully. CTOR OF TESTING * Sasha Muniz RN - 08/10/2013 6:24 PM CST Patient requesting if her diet can be advanced, call out to Dr. Alvares. CTOR OF TESTING * Mark Melo MD - 08/10/2013 12:02 [...] retained CBD stones ERCP planned Fri morning CTOR OF TESTING * Mark Melo MD - 08/10/2013 7:37 AM CST Patient off floor for GB surgery. Spoke with daughter and Dr Alvares. IOC planned; if has CBD stonethat can not be removed intraoperatively, will need eventual ERCP. If no stone, then discharge per Dr Alvares. CTOR OF TESTING * Vasyl Lyon MD - 08/10/2013 7:35 [...] for this basename: INR:3 in the last 58735 hours . Component Name 07/01/13 0804 02/22/13 1426 TSH 1.260 1.360 . Component Name 08/07/13 2152 08/07/13 1752 08/07/13 1305 TROPONIN <0.015 <0.015 <0.015 .No results found for this basename: MAGMGDL:3 in the last 77233 hours . Component Name 08/07/13 1305 LIPASE [...] -continue Tirosint H/o MS -stable H/o CAD, CT -denies CP. EKG/ Trops ok. Continue BB aldo-op. OK to go for surgery -continue ACEI, BB, and ASA DVT ppx- SCDs Vasyl Lyon MD 08/08/2013 7:35 AM CTOR OF TESTING * Nuvia Silva RN - 08/10/2013 6:08 AM CST Summary: Pt alert. Showered self. New IV placed to left wrist. Pain medication administered with good pain management. VSS Nuvia Silva RN CTOR OF TESTING * Hema Woodson RN - 08/09/2013 11:54 PM CST Patient oriented to the floor from surgery without difficulty. Patient had a CAPD cath placed today. No issues with pain nor distress addressed. Call light and personal items placed within reach. Will continue to monitor. CHARIS Rodriguez CTOR OF TESTING * Renetta Person RN - 08/09/2013 11:35 AM CST Spoke with patient who is having Lap Rita this afternoon. Plan home with family upon discharge. Renetta Person RN/Showroom [phone] CTOR OF TESTING * Vasyl Lyon MD - 08/09/2013 7:11 [...] for this basename: INR:3 in the last 37187 hours . Component Name 07/01/13 0804 02/22/13 1426 TSH 1.260 1.360 . Component Name 08/07/13 2152 08/07/13 1752 08/07/13 1305 TROPONIN <0.015 <0.015 <0.015 .No results found for this basename: MAGMGDL:3 in the last 90280 hours . Component Name 08/07/13 1305 LIPASE [...] -continue Tirosint H/o MS -stable H/o CAD, CT -denies CP. EKG/ Trops ok. Continue BB aldo-op. OK to go for surgery -continue ACEI, BB, and ASA Dd with pt DVT ppx- SCDs DVT Proph: Code Status: Vasyl Lyon MD 08/08/2013 7:11 AM CTOR OF TESTING * Mark Melo MD - 08/09/2013 6:42 [...] planned for today Additional liver labs pending CTOR OF TESTING * Freda Hernandez RN - 08/08/2013 3:46 PM CST patient resting in bed, no c/o pain nor discomfort at this time, call light in reach, will continueto monitor, patient Aware of surgery for gallbladder removal tomorrow, patient will be NPO after midnight. CTOR OF TESTING * Fern Ruth RN - 08/08/2013 2:29 PM CST Welcome letter and [facility] letter given to pt/family along with admission packet. Initial CM screen completed. CM and [employer] contact information reviewed. Names/numbers put on white [...] adressed Fern Ruth RN Cas[employer]ager [employer] - [phone] CTOR OF TESTING * Vasyl Lyon MD - 08/08/2013 8:03 [...] for this basename: INR:3 in the last 93545 hours . Component Name 07/01/13 0804 02/22/13 1426 TSH 1.260 1.360 . Component Name 08/07/13 2152 08/07/13 1752 08/07/13 1305 TROPONIN <0.015 <0.015 <0.015 .No results found for this basename: MAGMGDL:3 in the last 47157 hours . Component Name 08/07/13 1305 LIPASE [...] -continue Tirosint H/o MS -stable H/o CAD, CT -denies CP. EKG/ Trops ok. Continue BB aldo-op. OK to go for surgery if suggested after eval -continue ACEI, BB, and ASA Dd with pt DVT ppx- SCDs DVT Proph: Code Status: Vasyl Lyon MD 08/08/2013 8:03 AM CTOR OF TESTING * Sonya Larkin RN - 08/08/2013 4:00 AM CST Shift summary:pt resting quietly in bed,ivf infusing,call light within reach,kept npo after midnight for abdominal ultrasound,abdominal pain and nausea controlled with dilaudid and zofran , voids without any problem. CTOR OF TESTING documented in this encounter H&P Notes * Marjna Topete PA-C - 08/07/2013 7:35 PM CST History and Physical Date of Admission: 08/07/2013 Patient's Primary Care Physician: Sveta Terry Name: Pool Rodriguez Age: 47 y.o. Race: Sex: female Chief Complaint/History of Present Illness Ms. Rodriguez is a 47yo female with a PMH of CT, HTN, HLD, MS, lap band, hypothyroidism ,depression who is presents with RUQ abdominal pain. Pt was seen at a hospital in [place], [place] last week for the same and was admitted for 5 days. Pt was supposed to have cholecystectomy, but LFTs were too elevated. She was to f/u outpt with a biomedical field service engineer, but has not seen them yet because [...] a drenal adenoma. Labs Alk Phos 179, MCFP 915, AST 355. Past Medical History Diagnosis [...] Hypertension Sister Social History Occupational History ??? [employer] Social History Main Topics ??? Smoking status: [...] -continue Tirosint H/o MS -stable H/o CAD, CT -denies CP -continue ACEI, BB, and ASA DVT ppx- SCDs CTOR OF TESTING * Vasyl Lyon MD - 08/07/2013 7:35 PM CST Agreed. Further additions as per my note CTOR OF TESTING documented in this encounter Procedure Notes * Document, Scanned - 08/10/2013 8:11 PM CSTAssociated Order(s): EKG 12-LEAD CTOR OF TESTING * Document, Scanned - 08/10/2013 11:28 AM CSTAssociated Order(s): EKG 12-LEAD CTOR OF TESTING * Document, Scanned - 08/10/2013 11:08 AM CSTAssociated Order(s): EKG 12-LEAD CTOR OF TESTING * Document, Scanned - 08/08/2013 8:41 AM CSTAssociated Order(s): EKG 12-LEAD CTOR OF TESTING * Document, Scanned - 08/08/2013 6:57 AM CSTAssociated Order(s): EKG 12-LEAD CTOR OF TESTING * Document, Scanned - 08/08/2013 6:47 AM CSTAssociated Order(s): EKG 12-LEAD CTOR OF TESTING documented in this encounter Consult Notes * [...] Pt was seen at an OSH in [place] last week and admitted for elevated liver enzymes. Was instructed to follow up as an outpt. Returned to [facility] for increased symptoms of RUQ abdominal pain, [...] with cholangiogram 2. CAD: hx of prior CT s/p stent placement, was previously on antiplatement agent for about a year after stent placement Noah Alvares MD 08/08/2013 CTOR OF TESTING * Mark Melo MD - 08/08/2013 7:55 AM CST [facility] CONSULTATION REPORT PATIENT: POOL RODRIGUEZ MR#: [id number] ADMIT DATE: 08/07/2013 CSN: [id number] CONSULT DATE: : 1965 ATTENDING PHYS: KATHLEEN MUSTAFA ROOM: [id number] CONSULTING PHYSICIAN: MARK MELO MD HISTORY OF PRESENT ILLNESS: The patient is a 47-year-old white female, who is seen in consultation for elevated liver function tests. The patient was admitted to an outside hospital in [place], [place] 9 days prior. At the time [...] Due to persistent symptoms, she came to [facility] and was admitted. She continues to have [...] gastric band in 2009 performed at the [facility]. 6. Tonsillectomy. 7. Migraines. 8. Hypothyroidism. 9. [...] panel. Primary liver disorder seems less likely. Makr Melo MD PBM/MODL #: [id number] cc: Sveta Terry MD CTOR OF TESTING * Mark Melo MD - 08/08/2013 7:16 [...] unlikely to have a primary liver disorder CTOR OF TESTING documented in this encounter OR Notes * Operative - Mark Melo MD - 08/12/2013 9:34 PM CST [facility] OPERATIVE REPORT PATIENT: : POOL RODRIGUEZ MR#: [id number] ADMIT DATE: 08/07/2013 CSN: [id number] DATE OF SURGERY: : 1965 PHYSICIAN: Mark [...] A normal-appearing ampulla was visualized. A 44 [employer] sphincterotome was used to cannulate the [...] LOSS: COMPLICATIONS: CONDITION: DISPOSITION: Mark Melo MD [facility] #: [id number] cc: MD Sveta Leger MD CTOR OF TESTING * Operative - Noah Alvares MD - 08/10/2013 9:50 AM CST [facility] Operative Report OPERATIVE REPORT PATIENT:Pool Rodriguez MR#: [id number]-[id number] Relationship Account Type Home Phone POOL RODRIGUEZ - 101* [phone] / [place] [address]* Self P/F [phone] Employer Work Phone [employer] [address] / [place] [address] ADMIT DATE: 08/07/2013 12:51 PM ACCT#: DATE [...] 2. Intraoperative cholangiogram SURGEON: Noah Alvares MD TREE SURGEON HELPER: Beverley Ring RN ANESTHESIA: General endotracheal. PROCEDURE: [...] performed. An tello clamp with a 5 swedish catheter was placed into the lumen of [...] non obstructive COMPLICATIONS: None. Noah Alvares MD CTOR OF TESTING documented in this encounter ED Notes * Dana Zimmer, - 08/07/2013 12:52 PM CST Provider contact with the patient: 08/07/2013 12:52 Pool Cerna Michael [id number] [facility] History Chief Complaint Patient [...] medical history that includes--multiple sclerosis, CAD s/p CT, s/p coronary stent placement, hypertension, hyperlipidemia, hypothyroid, s/p lap gastric band--presents to the ER with c/o brown-colored urine. Pt states she was in [place], [place] last week visiting friend, began having upper abdominal pain and vomiting. Checked her blood pressure, which was high, and given her h/o CT, she went to the hospital. Admitted for [...] Years of Education: N/A Occupational History ??? [employer] Social History Main Topics ??? Smoking [...] sinus. Rate: normal. Heart rate:75. Ectopy: none. [place]: normal. ST Segment Comments: NSTE EKG date [...] 56.3 44.0-73.0 % Lymph 33.1 20.0-43.0 % Clay 8.0 5.0-13.0 % Eos 1.4 0.0-6.0 % Baso 0.9 0.0-2.0 % Immature Grans 0.3 0-1 % Neutro Abs 3.60 2.01-7.14 x10^9/L Lymph Abs 2.12 1.07-3.94 x10^9/L Clay Abs 0.51 0.26-1.07 x10^9/L Eosin Abs 0.09 [...] Yellow, Dark Yellow Clarity UA Turbid Specific [place] UA >1.045 (*) 1.005-1.030 pH UA 5.0 [...] 48.3 44.0-73.0 % Lymph 37.6 20.0-43.0 % Clay 11.0 5.0-13.0 % Eos 2.0 0.0-6.0 % Baso 0.9 0.0-2.0 % Immature Grans 0.2 0-1 % Neutro Abs 3.12 2.01-7.14 x10^9/L Lymph Abs 2.43 1.07-3.94 x10^9/L Clay Abs 0.71 0.26-1.07 x10^9/L Eosin Abs 0.13 [...] Sveta Terry (PCP). Recommends/requests admitting patient to [facility] for GB ultrasound and consult to Dr. Melo for GI. Agrees with plan and accepts admission. 1555: IPC paged. 1559: All pertinent aspects of case discussed with Dr. Mustafa ([facility]). Agrees with plan and accepts [...] behalf of Dr. Zimmer 08/07/2013 4:01 PM CTOR OF TESTING documented in this encounter Miscellaneous Notes * Miscellaneous Scans - Document, Scanned - 09/08/2013 9:15 AM CST CTOR OF TESTING * Miscellaneous Scans - Document, Scanned - 08/18/2013 4:31 PM CST CTOR OF TESTING * Miscellaneous Scans - Document, Scanned - 08/15/2013 5:47 PM CST CTOR OF TESTING * Miscellaneous Scans - Document, Scanned - 08/15/2013 5:47 PM CST CTOR OF TESTING * Miscellaneous Scans - Document, Scanned - 08/15/2013 5:47 PM CST CTOR OF TESTING * Miscellaneous Scans - Document, Scanned - 08/15/2013 5:47 PM CST CTOR OF TESTING documented in this encounter Plan of Treatment Upcoming Encounters Date Type Department Care Team (Late st Contact Info) Description 09/27/2024 2:20 PM DIRECTOR OF TESTING Office Visit [facility] [address] [facility] [address] [place] [phone] [place] [address] [facility] [address] [place] [phone] 09/28/2024 1:00 PM DIRECTOR OF TESTING Office Visit [facility] - [address] [place] [address] [place] [address] [address] [place] [address] Scheduled Orders Name Type Priority Associated Diagnoses Orde r Schedule ERCP GI Routine ONCE for 1 Occ urrences starting 08/12/2013 until 08/12/2013 ERCP GI Routine ONCE for 1 Occ urrences starting 08/12/2013 until 08/12/2013 documented as of this encounter Procedures Procedure Name Priority Date/Time Associated Diagnosis Comments COMPREHENSIVE METABOLIC PANEL AM Draw 08/14/2013 6:22 AM DIRECTOR OF TESTING BASIC METABOLIC PANEL (CALCIUM TOTAL) AM Draw 08/13/2013 5:02 AM DIRECTOR OF TESTING HEPATIC FUNCTION PANEL AM Draw 3 5:02 AM DIRECTOR OF TESTING ERCP 08/12/2013 2:55 PM DIRECTOR OF TESTING Special Needs ROOM 518 SET UP WITH JIMMY ALFONSO ERCP CBD ONLY Routine 08/12/2013 1:20 PM DIRECTOR OF TESTING Pain CBC W AUTO DIFFERENTIAL AM Draw 08/11/2013 4:23 AM DIRECTOR OF TESTING COMPREHENSIVE METABOLIC PANEL AM Draw 08/11/2013 4:23 AM DIRECTOR OF TESTING LAPAROSCOPIC CHOLECYSTECTOMY 08/10/2013 3:30 PM DIRECTOR OF TESTING TROPONIN I STAT 08/10/2013 10:59 AM DIRECTOR OF TESTING CKMB STAT 08/10/2013 10:59 AM DIRECTOR OF TESTING EKG 12-LEAD Routine 08/10/2013 10:52 AM DIRECTOR OF TESTING Abdominal pain, acute XR CHOLANGIOGRAM OPERATIVE Routine 08/10/2013 9:10 AM DIRECTOR OF TESTING Pain in the abdomen PATHOLOGY TISSUE EXAM (STL) Routine 08/10/2013 8:00 AM DIRECTOR OF TESTING CBC W AUTO DIFFERENTIAL AM Draw 08/10/2013 4:24 AM DIRECTOR OF TESTING Abdominal pain, acute Acute liver disease HTN (hypertension) Depressive Disorder, Not Elsewhere Classified Prediabetes Mixed hyperlipidemia Hypothyroidism COMPREHENSIVE METABOLIC PANEL AM Draw 08/10/2013 4:24 AM DIRECTOR OF TESTING Abdominal pain, acute Acute liver disease HTN (hypertension) Depressive Disorder, Not Elsewhere Classified Prediabetes Mixed hyperlipidemia Hypothyroidism SMOOTH MUSCLE ANTIBODY W REFLEX TITER AM Draw 08/09/2013 10:45 AM DIRECTOR OF TESTING Acute liver disease MITOCHONDRIAL ANTIBODY SCREEN AM Draw 08/09/2013 10:45 AM DIRECTOR OF TESTING Acute liver disease SMOOTH MUSCLE ANTIBODY TITER Routine 08/09/2013 10:45 AM DIRECTOR OF TESTING Acute liver disease SONJA BLOOD SCREEN W/REFLEX TITER AM Draw 08/09/2013 10:45 AM DIRECTOR OF TESTING Acute liver disease HEPATITIS SCREEN ACUTE AM Draw 3 10:45 AM DIRECTOR OF TESTING Acute liver disease COMPREHENSIVE METABOLIC PANEL AM Draw 08/09/2013 4:39 AM DIRECTOR OF TESTING Abdominal pain, acute Acute liver disease HTN (hypertension) Depressive Disorder, Not Elsewhere Classified Prediabetes Mixed hyperlipidemia Hypothyroidism CBC W AUTO DIFFERENTIAL AM Draw 08/09/2013 4:39 AM DIRECTOR OF TESTING Abdominal pain, acute Acute liver disease HTN (hypertension) Depressive Disorder, Not Elsewhere Classified Prediabetes Mixed hyperlipidemia Hypothyroidism US ABDOMEN LIMITED Routine 08/08/2013 10 :14 AM DIRECTOR OF TESTING Abdominal pain, acute CBC W AUTO DIFFERENTIAL AM Draw 08/08/2013 3:36 AM DIRECTOR OF TESTING Abdominal pain, acute Acute liver disease HTN (hypertension) Depressive Disorder, Not Elsewhere Classified Prediabetes Mixed hyperlipidemia Hypothyroidism COMPREHENSIVE METABOLIC PANEL AM Draw 08/08/2013 3:36 AM DIRECTOR OF TESTING Abdominal pain, acute Acute liver disease HTN (hypertension) Depressive Disorder, Not Elsewhere Classified Prediabetes Mixed hyperlipidemia Hypothyroidism TROPONIN I Timed 08/07/2013 9:52 PM DIRECTOR OF TESTING Abdominal pain, acute TROPONIN I Timed 08/07/2013 5:52 PM DIRECTOR OF TESTING URINALYSIS REFLEX MICROSCOPIC REFLEX CULTURE STAT 08/07/2013 5:46 PM DIRECTOR OF TESTING HCG URINE QUALITATIVE STAT 08/07/2013 5:46 PM DIRECTOR OF TESTING CULTURE URINE Routine 08/07/2013 5:[address] ABDOMEN PELVIS W CONTRAST STAT 08/07/2013 2:55 PM DIRECTOR OF TESTING Abdominal pain, acute TROPONIN I STAT 08/07/2013 1:05 PM DIRECTOR OF TESTING CBC W AUTO DIFFERENTIAL STAT 08/07/2013 1:05 PM DIRECTOR OF TESTING COMPREHENSIVE METABOLIC PANEL STAT 08/07/2013 1:05 PM DIRECTOR OF TESTING LIPASE BLOOD STAT 08/07/2013 1:05 PM DIRECTOR OF TESTING EKG 12-LEAD STAT 08/07/2013 12:26 PM DIRECTOR OF TESTING Abdominal pain, acute documented in this encounter Results * (ABNORMAL) COMPREHENSIVE METABOLIC PANEL (08/14/2013 6:22 AM DIRECTOR OF TESTING) [facility] Glucose 105 74 - 106 mg/dL 08/14/2013 7:24 AM DIRECTOR OF TESTING [facility] Sodium 140 136 - 145 mmol/L 08/14/2013 7:24 AM DIRECTOR OF TESTING [facility] Potassium 3.6 3.5 - 5.1 mmol/L 08/14/2013 7:24 AM DIRECTOR OF TESTING [facility] Chloride 108(H) 98 - 107 mmol/L 08/14/2013 7:24 AM DIRECTOR OF TESTING [facility] CO2 25 22 - 31 mmol/L 08/14/2013 7:24 AM DIRECTOR OF TESTING [facility] Calcium 8.5 8.5 - 10.1 mg/dL 08/14/2013 7:24 AM DIRECTOR OF TESTING [facility] Anion Gap 7 5 - 15 mmol/L 08/14/2013 7:24 AM DIRECTOR OF TESTING [facility] BUN 9 7 - 21 mg/dL 08/14/2013 7:24 AM DIRECTOR OF TESTING [facility] Creatinine 0.52 0.50 - 1.30 mg/dL 08/14/2013 7:24 AM DIRECTOR OF TESTING [facility] eGFR by MDRD >60 >60 mL/min/1.7 3m2 08/14/2013 7:24 AM DIRECTOR OF TESTING [facility] eGFR by MDRD >60 >60 mL/min/1.7 3m2 08/14/2013 7:24 AM [facility] Alkaline Phosphatase 105 38 - 126 U/L 08/14/2013 7:24 AM [facility] ALT 156(H) 12 - 78 U/L 08/14/2013 7:24 AM [facility] AST 31 5 - 40 U/L 08/14/2013 7:24 AM [facility] Protein Total 6.9 6.4 - 8.2 gm/dL 08/14/2013 7:24 AM [facility] Albumin 3.0(L) 3.4 - 5.0 gm/dL 08/14/2013 7:24 AM [facility] Bilirubin Total 0.5 0.2 - 1.0 mg/dL 08/14/2013 7:24 AM [facility] Blood BLOOD SPECIMEN / Unknown 08/14/2013 6:22 AM DIRECTOR OF TESTING 08/14/2013 6:53 AM DIRECTOR OF TESTING Chacha Christina MD LAB - CHEMISTRY ORD ERABLES [facility] [address] [place] [address] * (ABNORMAL) HEPATIC FUNCTION PANEL (08/13/2013 5:02 AM DIRECTOR OF TESTING) Alkaline Phosphatase 108 38 - 126 U/L 08/13/2013 5:50 AM [facility] ALT 205(H) 12 - 78 U/L 08/13/2013 5:50 AM [facility] AST 42(H) 5 - 40 U/L 08/13/2013 5:50 AM [facility] Protein Total 6.6 6.4 - 8.2 gm/dL 08/13/2013 5:50 AM [facility] Albumin 3.0(L) 3.4 - 5.0 gm/dL 08/13/2013 5:50 AM [facility] Bilirubin Total 0.6 0.2 - 1.0 mg/dL 08/13/2013 5:50 AM [facility] Bilirubin Direct 0.3 0 - 0.3 mg/dL 08/13/2013 5:50 AM [facility] Blood BLOOD SPECIMEN / Unknown 08/13/2013 5:02 AM DIRECTOR OF TESTING 08/13/2013 5:22 AM DIRECTOR OF TESTING Vasyl Lyon MD LAB - CHEMISTRY ANUSHKA LOVE Performing Organization Address [facility]/ZIP Co de Phone Number [facility] [address] [place] [address] * (ABNORMAL) BASIC METABOLIC PANEL (CALCIUM TOTAL) (08/13/2013 5:02 AM DIRECTOR OF TESTING) Pathologist [facility] Glucose 86 74 - 106 mg/dL 08/13/2013 5:50 AM [facility] Sodium 142 136 - 145 mmol/L 08/13/2013 5:50 AM [facility] Potassium 3.6 3.5 - 5.1 mmol/L 08/13/2013 5:50 AM [facility] Chloride 108(H) 98 - 107 mmol/L 08/13/2013 5:50 AM [facility] CO2 27 22 - 31 mmol/L 08/13/2013 5:50 AM [facility] Calcium 8.5 8.5 - 10.1 mg/dL 08/13/2013 5:50 AM [facility] Anion Gap 7 5 - 15 mmol/L 08/13/2013 5:50 AM [facility] BUN 8 7 - 21 mg/dL 08/13/2013 5:50 AM [facility] Creatinine 0.52 0.50 - 1.30 mg/dL 08/13/2013 5:50 AM [facility] eGFR by MDRD >60 >60 mL/min/1.7 3m2 08/13/2013 5:50 AM [facility] eGFR by MDRD >60 >60 mL/min/1.7 3m2 08/13/2013 5:50 AM [facility] Blood BLOOD SPECIMEN / Unknown 08/13/2013 5:02 AM DIRECTOR OF TESTING 08/13/2013 5:22 AM DIRECTOR OF TESTING Vasyl Lyon MD LAB - CHEMISTRY ANUSHKA LOVE Performing Organization Address [facility] Co de Phone Number [facility] [address] [place] [address] * FL ERCP BILIARY ONLY (08/12/2013 1:20 PM DIRECTOR OF TESTING) Anatomical Region Laterality Modality Abdomen Radiographic Louann ging 08/12/2013 1:29 PM DIRECTOR OF TESTING Narrative 08/12/2013 2:59 PM DIRECTOR OF TESTING FLUOROSCOPIC ERCP COMPLETE INDICATION: Right upper quadrant [...] (ABNORMAL) COMPREHENSIVE METABOLIC PANEL (08/11/2013 4:23 AM DIRECTOR OF TESTING) Glucose 87 74 - 106 mg/dL 08/11/2013 5:09 AM [facility] Sodium 139 136 - 145 mmol/L 08/11/2013 5:09 AM [facility] Potassium 3.9 3.5 - 5.1 mmol/L 08/11/2013 5:09 AM [facility] Chloride 107 98 - 107 mmol/L 08/11/2013 5:09 AM [facility] CO2 28 22 - 31 mmol/L 08/11/2013 5:09 AM [facility] Calcium 8.2(L) 8.5 - 10.1 mg/dL 08/11/2013 5:09 AM [facility] Anion Gap 4(L) 5 - 15 mmol/L 08/11/2013 5:09 AM [facility] BUN 9 7 - 21 mg/dL 08/11/2013 5:09 AM [facility] Creatinine 0.63 0.50 - 1.30 mg/dL 08/11/2013 5:09 AM [facility] eGFR by MDRD >60 >60 mL/min/1.7 3m2 08/11/2013 5:09 AM [facility] eGFR by MDRD >60 >60 mL/min/1.7 3m2 08/11/2013 5:09 AM [facility] Alkaline Phosphatase 110 38 - 126 U/L 08/11/2013 5:09 AM [facility] ALT 329(H) 12 - 78 U/L 08/11/2013 5:09 AM [facility] AST 89(H) 5 - 40 U/L 08/11/2013 5:09 AM [facility] Protein Total 6.8 6.4 - 8.2 gm/dL 08/11/2013 5:09 AM [facility] Albumin 3.1(L) 3.4 - 5.0 gm/dL 08/11/2013 5:09 AM [facility] Bilirubin Total 0.6 0.2 - 1.0 mg/dL 08/11/2013 5:09 AM [facility] Blood BLOOD SPECIMEN / Unknown 08/11/2013 4:23 AM DIRECTOR OF TESTING 08/11/2013 4:41 AM [facility] Vasyl Lyon MD LAB - CHEMISTRY ANUSHKA LOVE [facility] Organization Address City/State/[facility] Co de Phone Number [facility] [address] [place] [address] * (ABNORMAL) CBC W AUTO DIFFERENTIAL (08/11/2013 4:23 AM [facility]) WBC 8.1 4.4 - 10.7 x10^9/L 08/11/2013 5:02 AM [facility] RBC 4.33 3.80 - 5.20 x10^12/L 08/11/2013 5:02 AM [facility] Hemoglobin 12.6 12.0 - 15.6 gm/dL 08/11/2013 5:02 AM [facility] Hematocrit 38.0 35.9 - 45.5 % 08/11/2013 5:02 AM [facility] MCV 87.8 80.7 - 98.3 fl 08/11/2013 5:02 AM [facility] MCH 29.1 26.7 - 34.0 pg 08/11/2013 5:02 AM [facility] MCHC 33.2 30.8 - 35.9 gm/dL 08/11/2013 5:02 AM [facility] Platelet Count 195 153 - 416 x10^9/L 08/11/2013 5:02 AM [facility] RDW-CV 15.5(H) 12.1 - 14.9 % 08/11/2013 5:02 AM [facility] MPV 11.5 9.4 - 12.9 fl 08/11/2013 5:02 AM [facility] Neutrophils % 57.0 44.0 - 73.0 % 08/11/2013 5:02 AM [facility] Lymphocytes % 33.5 20.0 - 43.0 % 08/11/2013 5:02 AM [facility] Monocytes % 8.4 5.0 - 13.0 % 08/11/2013 5:02 AM [facility] Eosinophils % 0.5 0.0 - 6.0 % 08/11/2013 5:02 AM [facility] Basophils % 0.4 0.0 - 2.0 % 08/11/2013 5:02 AM [facility] Immature Granulocytes 0.2 0 - 1 % 08/11/2013 5:02 AM [facility] Neutrophil Absolute 4.60 2.01 - 7.14 x10^9/L 08/11/2013 5:02 AM [facility] Lymphocytes Absolute 2.70 1.07 - 3.94 x10^9/L 08/11/2013 5:02 AM [facility] Monocytes Absolute 0.68 0.26 - 1.07 x10^9/L 08/11/2013 5:02 AM [facility] Eosinophils Absolute 0.04 0 - 0.47 x10^9/L 08/11/2013 5:02 AM [facility] Basophils Absolute 0.03 0 - 0.08 x10^9/L 08/11/2013 5:02 AM [facility] Immature Granulocytes Absolute 0.02 0.00 - 0.06 x10^9/L 08/11/2013 5:02 AM DIRECTOR OF TESTING [facility] Blood BLOOD SPECIMEN / Unknown 08/11/2013 4:23 AM DIRECTOR OF TESTING 08/11/2013 4:41 AM DIRECTOR OF TESTING Vasyl Lyon MD LAB - HEMATOLOGY ORD ERABLES Performing Organization Address [facility] Co de Phone Number [facility] [address] [place] [address] * CKMB (08/10/2013 10:59 AM DIRECTOR OF TESTING) CK-MB 0.5 0.0 - 5.0 ng/mL 08/10/2013 11:40 AM DIRECTOR OF TESTING [facility] Blood BLOOD SPECIMEN / Unknown Venipuncture / Unknown 08/10/2013 10:59 AM DIRECTOR OF TESTING 08/10/2013 11:17 AM DIRECTOR OF TESTING Dax Lebron DO LAB - CHEMISTRY ANUSHKA LOVE Performing Organization Address [facility] de Phone Number [facility] [address] [place] [address] * TROPONIN I (08/10/2013 10:59 AM DIRECTOR OF TESTING) Troponin I <0.015 0.000 - 0.049 ng/mL 08/10/2013 11:26 AM DIRECTOR OF TESTING [facility] Blood SERUM OR PLASMA SPECIMEN / Unknown 08/10/2013 10:59 AM DIRECTOR OF TESTING 08/10/2013 11:03 AM DIRECTOR OF TESTING Narrative [facility] - 08/10/2013 11:26 AM DIRECTOR OF TESTING Note: Diagnosis of myocardial infarction requires symptoms [...] - CHEMISTRY ANUSHKA LOVE Performing Organization Address [facility] Co de Phone Number [facility] [address] [place] [address] * EKG 12-LEAD (08/10/2013 10:52 AM DIRECTOR OF TESTING) Ventricular Rate 65 BPM [facility] Atrial Rate 65 BPM [facility] P-R Interval 176 ms [facility] QRS Duration ms 106 ms [facility] Q-T Interval ms 462 ms [facility] QTC Calculation (Bezet) 480 ms [facility] Calculated P [place] 43 degrees [facility] Calculated R [place] -14 degrees [facility] Calculated T [place] 17 degrees [facility] Interpretation EKG Normal sinus rhythm Prolonged QT Abnormal ECG Confirmed by LEIGH ANN SIMS MD ([id number]) on 08/10/2013 8:09:46 PM [facility] 08/10/2013 10:5 2 AM DIRECTOR OF TESTING 08/10/2013 8:09 PM DIRECTOR OF TESTING Narrative [facility] - 08/10/2013 8:09 PM DIRECTOR OF TESTING Procedure Note Document, Scanned - 08/10/2013 11:08 AM CST Transcriptions Document, Scanned - 08/10/2013 11:28 AM CST Document, Scanned - 08/10/2013 8:11 PM CST Dax Lebron DO ECG ORDERABLES [facility] * XR CHOLANGIOGRAM OPERATIVE (08/10/2013 9:10 AM DIRECTOR OF TESTING) Anatomical Region Laterality Modality Abdomen Radiographic Louann ging 08/10/2013 12:3 8 PM DIRECTOR OF TESTING Impressions 08/10/2013 2:00 PM DIRECTOR OF TESTING Small filling defects present on intraoperative cholangiogram. Edited by Genevieve Olmstead on 08/10/2013 12:58 PM Narrative 08/10/2013 2:00 PM DIRECTOR OF TESTING FLUOROSCOPY OR CHOLANGIOGRAM INDICATION: Abdominal pain. 51 [...] + MICRO EXAM (STL) (08/10/2013 8:00 AM DIRECTOR OF TESTING) Case Report Surgical Pathology Report ? Case: [id number] ? -------- Authorizing Provider: ??Noah Alvares MD ?Ordering Provider: ?? Noah Alvares MD ? Ordering Location: ? [facility] ?Collected: ? 08/10/2013 ??8:00 AM ? Pathologist: ? Hero Villela MD ?Received: ?08/10/2013 11:08 AM ?Signed Out: ?08/12/2013 12:42 PM (Final) ? Specimen: ?Gallbladder ? 08/12/2013 12:42 PM DIRECTOR OF TESTING [facility] Final Diagnosis 1. ? Gallbladder, cholecystectomy: -- ? Cholecystitis, chronic, moderate -- ? Cholelithiasis /[facility] 08/12/2013 12:42 PM DIRECTOR OF TESTING [facility] Clinical History PROCEDURE: Laparoscopic cholecystectomy 08/12/2013 12:42 PM DIRECTOR OF TESTING [facility] Gross Description Received in formalin [...] up to 0.2 cm in maximum thickness. ??Upper Leather Cutter sections are submitted in a cassette labeled A1. [facility] 08/12/2013 12:42 PM DIRECTOR OF TESTING [facility] Microscopic Description Microscopic examination supports the diagnosis. GC/scs JW/scs 08/12/2013 12:42 PM DIRECTOR OF TESTING [facility] Synoptic Report 08/12/2013 12:42 PM [facility] Pathology/Cytolo gy ENTIRE GALLBLADDER / Unknown 08/10/2013 8:00 AM DIRECTOR OF TESTING 08/10/2013 11:08 AM DIRECTOR OF TESTING Noah Alvares MD LAB - PATHOLOGY/CYTO LOGY ORDERABLES [facility] [address] [place] [address] * (ABNORMAL) COMPREHENSIVE METABOLIC PANEL (08/10/2013 4:24 AM DIRECTOR OF TESTING) Glucose 113(H) 74 - 106 mg/dL 08/10/2013 5:21 AM [facility] Sodium 141 136 - 145 mmol/L 08/10/2013 5:21 AM [facility] Potassium 3.9 3.5 - 5.1 mmol/L 08/10/2013 5:21 AM [facility] Chloride 110(H) 98 - 107 mmol/L 08/10/2013 5:21 AM [facility] CO2 26 22 - 31 mmol/L 08/10/2013 5:21 AM [facility] Calcium 8.5 8.5 - 10.1 mg/dL 08/10/2013 5:21 AM [facility] Anion Gap 5 5 - 15 mmol/L 08/10/2013 5:21 AM [facility] BUN 10 7 - 21 mg/dL 08/10/2013 5:21 AM [facility] Creatinine 0.51 0.50 - 1.30 mg/dL 08/10/2013 5:21 AM [facility] eGFR by MDRD >60 >60 mL/min/1.7 3m2 08/10/2013 5:21 AM [facility] eGFR by MDRD >60 >60 mL/min/1.7 3m2 08/10/2013 5:21 AM [facility] Alkaline Phosphatase 133(H) 38 - 126 U/L 08/10/2013 5:21 AM [facility] ALT 461(H) 12 - 78 U/L 08/10/2013 5:21 AM [facility] AST 135(H) 5 - 40 U/L 08/10/2013 5:21 AM [facility] Protein Total 7.4 6.4 - 8.2 gm/dL 08/10/2013 5:21 AM [facility] Albumin 3.2(L) 3.4 - 5.0 gm/dL 08/10/2013 5:21 AM [facility] Bilirubin Total 0.8 0.2 - 1.0 mg/dL 08/10/2013 5:21 AM [facility] Blood BLOOD SPECIMEN / Unknown 08/10/2013 4:24 AM DIRECTOR OF TESTING 08/10/2013 4:49 AM DIRECTOR OF TESTING Vasyl Lyon MD LAB - CHEMISTRY ANUSHKA LOVE [facility] [address] [place] [address] * (ABNORMAL) CBC W AUTO DIFFERENTIAL (08/10/2013 4:24 AM DIRECTOR OF TESTING) WBC 4.9 4.4 - 10.7 x10^9/L 08/10/2013 5:06 AM [facility] RBC 4.75 3.80 - 5.20 x10^12/L 08/10/2013 5:06 AM [facility] Hemoglobin 14.0 12.0 - 15.6 gm/dL 08/10/2013 5:06 AM [facility] Hematocrit 41.8 35.9 - 45.5 % 08/10/2013 5:06 AM [facility] MCV 88.0 80.7 - 98.3 fl 08/10/2013 5:06 AM [facility] MCH 29.5 26.7 - 34.0 pg 08/10/2013 5:06 AM [facility] MCHC 33.5 30.8 - 35.9 gm/dL 08/10/2013 5:06 AM [facility] Platelet Count 217 153 - 416 x10^9/L 08/10/2013 5:06 AM [facility] RDW-CV 15.6(H) 12.1 - 14.9 % 08/10/2013 5:06 AM [facility] MPV 11.5 9.4 - 12.9 fl 08/10/2013 5:06 AM [facility] Neutrophils % 41.5(L) 44.0 - 73.0 % 08/10/2013 5:06 AM [facility] Lymphocytes % 47.2(H) 20.0 - 43.0 % 08/10/2013 5:06 AM [facility] Monocytes % 8.3 5.0 - 13.0 % 08/10/2013 5:06 AM [facility] Eosinophils % 2.2 0.0 - 6.0 % 08/10/2013 5:06 AM [facility] Basophils % 0.8 0.0 - 2.0 % 08/10/2013 5:06 AM [facility] Immature Granulocytes 0.0 0 - 1 % 08/10/2013 5:06 AM [facility] Neutrophil Absolute 2.05 2.01 - 7.14 x10^9/L 08/10/2013 5:06 AM [facility] Lymphocytes Absolute 2.33 1.07 - 3.94 x10^9/L 08/10/2013 5:06 AM [facility] Monocytes Absolute 0.41 0.26 - 1.07 x10^9/L 08/10/2013 5:06 AM [facility] Eosinophils Absolute 0.11 0 - 0.47 x10^9/L 08/10/2013 5:06 AM [facility] Basophils Absolute 0.04 0 - 0.08 x10^9/L 08/10/2013 5:06 AM [facility] Immature Granulocytes Absolute 0.00 0.00 - 0.06 x10^9/L 08/10/2013 5:06 AM [facility] Blood BLOOD SPECIMEN / Unknown 08/10/2013 4:24 AM DIRECTOR OF TESTING 08/10/2013 4:49 AM [facility] Vasyl Lyon MD LAB - HEMATOLOGY ORD ERABLES [facility] [address] [place] [address] * SMOOTH MUSCLE ANTIBODY TITER (08/09/2013 10:45 AM DIRECTOR OF TESTING) Smooth Muscle Antibody IgG Titer <1:20 <1:20 08/11/2013 4:38 PM DIRECTOR OF TESTING [facility] Comment: INTERPRETIVE INFORMATION: ??Smooth Muscle Ab, IgG Titer ??Less than 1:20 ........ Negative - No antibody detected. ??1:20 - 1:80 ??.......... Weak Positive - Suggest repeat ?in two to three weeks with fresh ?specimen. ??1:160 or greater ...... Positive - Suggestive of ?autoimmune hepatitis or chronic ?active hepatitis. Blood specimen (specimen) BLOOD SPECIMEN / Unknown 08/09/2013 10:45 AM DIRECTOR OF TESTING 08/09/2013 10:58 AM DIRECTOR OF TESTING Mark Melo MD LAB - CHEMISTRY ORD [employer]OB[employer] Performing Organization Address City/[facility]/ZIP Co de Phone Number [facility] [address] [place] [address] * HEPATITIS SCREEN ACUTE (08/09/2013 10:45 AM DIRECTOR OF TESTING) HAV Antibody IgM Non Reactive Non Reactive 08/09/2013 5:52 PM DIRECTOR OF TESTING [facility] HBsAg Non Reactive Non Reactive 08/09/2013 5:52 PM DIRECTOR OF TESTING [facility] HBc Antibody IgM Non Reactive Non Reactive 08/09/2013 5:52 PM [facility] HCV Antibody Screen Non Reactive Non Reactive 08/09/2013 5:52 PM DIRECTOR OF TESTING [facility] Blood BLOOD SPECIMEN / Unknown 08/09/2013 10:45 AM DIRECTOR OF TESTING 08/09/2013 10:58 AM DIRECTOR OF TESTING Narrative [facility] - 08/09/2013 5:52 PM DIRECTOR OF TESTING Nonreactive - Antibodies to HCV were not detected, result does not exclude early acute HCV infection. Mark Melo MD LAB - CHEMISTRY [facility] Performing Organization Address [facility]/ZIP Co de Phone Number [facility] [address] [place] [address] * MITOCHONDRIAL ANTIBODY SCREEN (08/09/2013 10:45 AM DIRECTOR OF TESTING) Mitochondrial M2 Antibody 7.9 0.0 - 20.0 Units 08/11/2013 2:53 AM DIRECTOR OF TESTING [facility] Comment: INTERPRETIVE INFORMATION: Mitochondrial (M2) Antibody, IgG ??20.0 Units or less ......... Negative ??20.1 - 24.9 Units........... Equivocal ??25.0 Units or greater....... Positive Blood specimen (specimen) BLOOD SPECIMEN / Unknown 08/09/2013 10:45 AM DIRECTOR OF TESTING 08/09/2013 10:58 AM DIRECTOR OF TESTING Mark Melo MD LAB - CHEMISTRY ORD ERABLES [facility] [address] [place] [address] * (ABNORMAL) F-ACTIN (SMOOTH MUSCLE) ANTIBODY W REFLEX TITER (08/09/2013 10:45 AM DIRECTOR OF TESTING) Pathologist [facility] F-Actin Antibody IgG 30(H) 0 - 19 Units 08/11/2013 2:53 AM DIRECTOR OF TESTING [facility] Comment: INTERPRETIVE INFORMATION: F-Actin (Smooth Muscle) Antibody, [...] BLOOD SPECIMEN / Unknown 08/09/2013 10:45 AM DIRECTOR OF TESTING 08/09/2013 10:58 AM DIRECTOR OF TESTING Mark Melo MD LAB - SEROLOGY ANUSHKA LOVE [facility] [address] [place] [address] * (ABNORMAL) SONJA BLOOD SCREEN W/REFLEX TITER (08/09/2013 10:45 AM DIRECTOR OF TESTING) Pathologist [facility] SONJA Positive(A) Negative 08/10/2013 1:40 PM DIRECTOR OF TESTING [facility] OSNJA Titer 1:40 Negative, <1:40, 1:40, 1:80 Titer 08/10/2013 1:40 PM DIRECTOR OF TESTING [facility] SONJA Pattern Homogeneous 08/10/2013 1:40 PM DIRECTOR OF TESTING [facility] Blood BLOOD SPECIMEN / Unknown 08/09/2013 10:45 AM DIRECTOR OF TESTING 08/09/2013 10:58 AM DIRECTOR OF TESTING Mark Melo MD LAB - CHEMISTRY FRANK [facility]YALA Performing Organization Address City/[facility]/ZIP Co de Phone Number [facility] [address] [place] [address] * (ABNORMAL) COMPREHENSIVE METABOLIC PANEL (08/09/2013 4:39 AM DIRECTOR OF TESTING) Pathologist [facility] Glucose 83 74 - 106 mg/dL 08/09/2013 5:30 AM [facility] Sodium 140 136 - 145 mmol/L 08/09/2013 5:30 AM [facility] Potassium 3.9 3.5 - 5.1 mmol/L 08/09/2013 5:30 AM [facility] Chloride 108(H) 98 - 107 mmol/L 08/09/2013 5:30 AM [facility] CO2 26 22 - 31 mmol/L 08/09/2013 5:30 AM [facility] Calcium 8.8 8.5 - 10.1 mg/dL 08/09/2013 5:30 AM [facility] Anion Gap 6 5 - 15 mmol/L 08/09/2013 5:30 AM [facility] BUN 8 7 - 21 mg/dL 08/09/2013 5:30 AM [facility] Creatinine 0.55 0.50 - 1.30 mg/dL 08/09/2013 5:30 AM DIRECTOR OF TESTING [facility] eGFR by MDRD >60 >60 mL/min/1.7 3m2 08/09/2013 5:30 AM DIRECTOR OF TESTING [facility] eGFR by MDRD >60 >60 mL/min/1.7 3m2 08/09/2013 5:30 AM DIRECTOR OF TESTING [facility] Alkaline Phosphatase 137(H) 38 - 126 U/L 08/09/2013 5:30 AM DIRECTOR OF TESTING [facility] ALT 585(H) 12 - 78 U/L 08/09/2013 5:30 AM DIRECTOR OF TESTING [facility] AST 185(H) 5 - 40 U/L 08/09/2013 5:30 AM [facility] Protein Total 7.5 6.4 - 8.2 gm/dL 08/09/2013 5:30 AM [facility] Albumin 3.2(L) 3.4 - 5.0 gm/dL 08/09/2013 5:30 AM [facility] Bilirubin Total 1.0 0.2 - 1.0 mg/dL 08/09/2013 5:30 AM [facility] Blood BLOOD SPECIMEN / Unknown 08/09/2013 4:39 AM DIRECTOR OF TESTING 08/09/2013 4:59 AM DIRECTOR OF TESTING Vasyl Lyon MD LAB - CHEMISTRY ANUSHKA LOVE [facility] Organization Address City/State/ZIP Co de Phone Number [facility] [address] [place] [address] * (ABNORMAL) CBC W AUTO DIFFERENTIAL (08/09/2013 4:39 AM DIRECTOR OF TESTING) WBC 4.6 4.4 - 10.7 x10^9/L 08/09/2013 5:12 AM DIRECTOR OF TESTING [facility] RBC 4.83 3.80 - 5.20 x10^12/L 08/09/2013 5:12 AM DIRECTOR OF TESTING [facility] Hemoglobin 14.1 12.0 - 15.6 gm/dL 08/09/2013 5:12 AM [facility] Hematocrit 42.0 35.9 - 45.5 % 08/09/2013 5:12 AM DIRECTOR OF TESTING [facility] MCV 87.0 80.7 - 98.3 fl 08/09/2013 5:12 AM DIRECTOR OF TESTING [facility] MCH 29.2 26.7 - 34.0 pg 08/09/2013 5:12 AM DIRECTOR OF TESTING [facility] MCHC 33.6 30.8 - 35.9 gm/dL 08/09/2013 5:12 AM [facility] Platelet Count 215 153 - 416 x10^9/L 08/09/2013 5:12 AM [facility] RDW-CV 15.7(H) 12.1 - 14.9 % 08/09/2013 5:12 AM [facility] MPV 11.2 9.4 - 12.9 fl 08/09/2013 5:12 AM [facility] Neutrophils % 34.5(L) 44.0 - 73.0 % 08/09/2013 5:12 AM [facility] Lymphocytes % 52.9(H) 20.0 - 43.0 % 08/09/2013 5:12 AM [facility] Monocytes % 9.3 5.0 - 13.0 % 08/09/2013 5:12 AM [facility] Eosinophils % 2.2 0.0 - 6.0 % 08/09/2013 5:12 AM [facility] Basophils % 1.1 0.0 - 2.0 % 08/09/2013 5:12 AM [facility] Immature Granulocytes 0.0 0 - 1 % 08/09/2013 5:12 AM [facility] Neutrophil Absolute 1.60(L) 2.01 - 7.14 x10^9/L 08/09/2013 5:12 AM [facility] Lymphocytes Absolute 2.45 1.07 - 3.94 x10^9/L 08/09/2013 5:12 AM [facility] Monocytes Absolute 0.43 0.26 - 1.07 x10^9/L 08/09/2013 5:12 AM [facility] Eosinophils Absolute 0.10 0 - 0.47 x10^9/L 08/09/2013 5:12 AM [facility] Basophils Absolute 0.05 0 - 0.08 x10^9/L 08/09/2013 5:12 AM [facility] Immature Granulocytes Absolute 0.00 0.00 - 0.06 x10^9/L 08/09/2013 5:12 AM [facility] Blood BLOOD SPECIMEN / Unknown 08/09/2013 4:39 AM DIRECTOR OF TESTING 08/09/2013 4:59 AM DIRECTOR OF TESTING Vasyl Lyon MD LAB - HEMATOLOGY ORD ERABLES [facility] [id number] [place] [id number] * US ABD LIMITED (RUQ) (08/08/2013 10:14 AM DIRECTOR OF TESTING) Anatomical Region Laterality Modality Abdomen Ultrasound 08/08/2013 11:1 7 AM DIRECTOR OF TESTING Impressions 08/08/2013 11:55 AM DIRECTOR OF TESTING 1. Right adrenal gland enlargement. 2. Distended gallbladder. Edited by Sheri Zhong on 08/08/2013 11:41 AM Narrative 08/08/2013 11:55 AM DIRECTOR OF TESTING ULTRASOUND ABDOMEN LIMITED INDICATION: Abdominal pain and [...] (ABNORMAL) COMPREHENSIVE METABOLIC PANEL (08/08/2013 3:36 AM DIRECTOR OF TESTING) Pathologist [facility] Glucose 85 74 - 106 mg/dL 08/08/2013 4:10 AM [facility] Sodium 139 136 - 145 mmol/L 08/08/2013 4:10 AM [facility] Potassium 3.7 3.5 - 5.1 mmol/L 08/08/2013 4:10 AM [facility] Chloride 108(H) 98 - 107 mmol/L 08/08/2013 4:10 AM [facility] CO2 26 22 - 31 mmol/L 08/08/2013 4:10 AM [facility] Calcium 8.1(L) 8.5 - 10.1 mg/dL 08/08/2013 4:10 AM [facility] Anion Gap 5 5 - 15 mmol/L 08/08/2013 4:10 AM [facility] BUN 12 7 - 21 mg/dL 08/08/2013 4:10 AM [facility] Creatinine 0.54 0.50 - 1.30 mg/dL 08/08/2013 4:10 AM [facility] eGFR by MDRD >60 >60 mL/min/1.7 3m2 08/08/2013 4:10 AM [facility] eGFR by MDRD >60 >60 mL/min/1.7 3m2 08/08/2013 4:10 AM [facility] Alkaline Phosphatase 140(H) 38 - 126 U/L 08/08/2013 4:10 AM [facility] ALT 660(H) 12 - 78 U/L 08/08/2013 4:10 AM [facility] AST 219(H) 5 - 40 U/L 08/08/2013 4:10 AM [facility] Protein Total 6.8 6.4 - 8.2 gm/dL 08/08/2013 4:10 AM [facility] Albumin 3.1(L) 3.4 - 5.0 gm/dL 08/08/2013 4:10 AM [facility] Bilirubin Total 1.0 0.2 - 1.0 mg/dL 08/08/2013 4:10 AM [facility] Blood BLOOD SPECIMEN / Unknown 08/08/2013 3:36 AM DIRECTOR OF TESTING 08/08/2013 3:46 AM DIRECTOR OF TESTING Marjan Topete PA-C LAB - CHEMISTRY ANUSHKA LOVE [facility] [address] [place] [id number] * (ABNORMAL) CBC W AUTO DIFFERENTIAL (08/08/2013 3:36 AM DIRECTOR OF TESTING) WBC 6.5 4.4 - 10.7 x10^9/L 08/08/2013 3:57 AM [facility] RBC 4.71 3.80 - 5.20 x10^12/L 08/08/2013 3:57 AM [facility] Hemoglobin 13.9 12.0 - 15.6 gm/dL 08/08/2013 3:57 AM [facility] Hematocrit 41.1 35.9 - 45.5 % 08/08/2013 3:57 AM [facility] MCV 87.3 80.7 - 98.3 fl 08/08/2013 3:57 AM [facility] MCH 29.5 26.7 - 34.0 pg 08/08/2013 3:57 AM [facility] MCHC 33.8 30.8 - 35.9 gm/dL 08/08/2013 3:57 AM [facility] Platelet Count 205 153 - 416 x10^9/L 08/08/2013 3:57 AM [facility] RDW-CV 16.2(H) 12.1 - 14.9 % 08/08/2013 3:57 AM [facility] MPV 11.3 9.4 - 12.9 fl 08/08/2013 3:57 AM [facility] Neutrophils % 48.3 44.0 - 73.0 % 08/08/2013 3:57 AM [facility] Lymphocytes % 37.6 20.0 - 43.0 % 08/08/2013 3:57 AM [facility] Monocytes % 11.0 5.0 - 13.0 % 08/08/2013 3:57 AM [facility] Eosinophils % 2.0 0.0 - 6.0 % 08/08/2013 3:57 AM [facility] Basophils % 0.9 0.0 - 2.0 % 08/08/2013 3:57 AM [facility] Immature Granulocytes 0.2 0 - 1 % 08/08/2013 3:57 AM [facility] Neutrophil Absolute 3.12 2.01 - 7.14 x10^9/L 08/08/2013 3:57 AM [facility] Lymphocytes Absolute 2.43 1.07 - 3.94 x10^9/L 08/08/2013 3:57 AM [facility] Monocytes Absolute 0.71 0.26 - 1.07 x10^9/L 08/08/2013 3:57 AM DIRECTOR OF TESTING [facility] Eosinophils Absolute 0.13 0 - 0.47 x10^9/L 08/08/2013 3:57 AM DIRECTOR OF TESTING [facility] Basophils Absolute 0.06 0 - 0.08 x10^9/L 08/08/2013 3:57 AM [facility] Immature Granulocytes Absolute 0.01 0.00 - 0.06 x10^9/L 08/08/2013 3:57 AM [facility] Blood BLOOD SPECIMEN / Unknown 08/08/2013 3:36 AM DIRECTOR OF TESTING 08/08/2013 3:46 AM DIRECTOR OF TESTING Marjan Topete PA-C LAB - HEMATOLOGY ORD JAMIE Performing Organization Address [facility] de Phone Number [facility] [address] [place] [address] * TROPONIN I (08/07/2013 9:52 PM DIRECTOR OF TESTING) [facility] Troponin I <0.015 0.000 - 0.049 ng/mL 08/07/2013 10:25 PM [facility] Blood BLOOD SPECIMEN / Unknown 08/07/2013 9:52 PM DIRECTOR OF TESTING 08/07/2013 9:58 PM DIRECTOR OF TESTING Narrative [facility] - 08/07/2013 10:25 PM DIRECTOR OF TESTING Note: Diagnosis of myocardial infarction requires symptoms [...] - CHEMISTRY ANUSHKA LOVE Performing Organization Address [facility] Co de Phone Number [facility] [address] [place] [phone] * TROPONIN I (08/07/2013 5:52 PM DIRECTOR OF TESTING) [facility] Troponin I <0.015 0.000 - 0.049 ng/mL 08/07/2013 6:24 PM DIRECTOR OF TESTING [facility] Blood BLOOD SPECIMEN / Unknown 08/07/2013 5:52 PM DIRECTOR OF TESTING 08/07/2013 5:55 PM DIRECTOR OF TESTING Narrative [facility] - 08/07/2013 6:24 PM DIRECTOR OF TESTING Note: Diagnosis of myocardial infarction requires symptoms [...] - CHEMISTRY ORDE RABLES Performing Organization Address [facility] Co de Phone Number [facility] [address] [place] [phone] * HCG URINE QUALITATIVE (08/07/2013 5:46 PM DIRECTOR OF TESTING) [facility] hCG Qualitative Urine Negative Negative 08/07/2013 6:01 PM DIRECTOR OF TESTING [facility] Urine URINE SPECIMEN OBTAINED BY CLEAN CATCH PROCEDURE / Unknown 08/07/2013 5:46 PM DIRECTOR OF TESTING 08/07/2013 5:48 PM DIRECTOR OF TESTING Dana Zimmer DO LAB - URINALYSIS ORD ERABLES Performing Organization Address [facility] Co de Phone Number [facility] [address] [place] [address] * (ABNORMAL) URINALYSIS ROUTINE W/REFLEX TO CULTURE (08/07/2013 5:46 PM DIRECTOR OF TESTING) [facility] Color UA Dark Yellow Straw, Yellow, Dark Yellow 08/07/2013 6:06 PM DIRECTOR OF TESTING [facility] Clarity UA Turbid 08/07/2013 6:06 PM DIRECTOR OF TESTING [facility] Specific [place] UA >1.045(H) 1.005 - 1.030 08/07/2013 6:06 PM [facility] pH UA 5.0 5.0 - 8.0 pH 08/07/2013 6:06 PM [facility] Protein UA Negative Negative 08/07/2013 6:06 PM [facility] Blood UA Negative Negative 08/07/2013 6:06 PM [facility] Leukocyte UA Negative Negative 08/07/2013 6:06 PM [facility] Nitrite UA Negative Negative 08/07/2013 6:06 PM [facility] Glucose UA Negative Negative 08/07/2013 6:06 PM [facility] Ketone UA Negative Negative 08/07/2013 6:06 PM [facility] Bilirubin UA Negative Negative 08/07/2013 6:06 PM [facility] Urobilinogen UA 1.0 0.1 - 1.0 EU/dL 08/07/2013 6:06 PM [facility] WBC UA Auto 2-5 0-2, 2-5 #/hpf 08/07/2013 6:06 PM [facility] RBC UA Auto 0-2 0-2, 2-5 #/hpf 08/07/2013 6:06 PM [facility] Epithelial Cell UA Auto 5-10(A) 0-2, 2-5 #/hpf 08/07/2013 6:06 PM [facility] Bacteria UA Auto 1+(A) None seen 08/07/20 13 6:06 PM [facility] Hyaline Casts UA Auto 0-2 0 - 2 #/lpf 08/07/2013 6:06 PM [facility] Reflex Status Culture to follow 08/07/2013 6:06 PM [facility] Urine URINE SPECIMEN OBTAINED BY CLEAN CATCH PROCEDURE / Unknown 08/07/2013 5:46 PM DIRECTOR OF TESTING 08/07/2013 5:48 PM [facility] Dana Zimmer DO LAB - URINALYSIS ORD ERABLES [facility] [address] [place] [address] * CULTURE URINE (08/07/2013 5:46 PM DIRECTOR OF TESTING) Culture <10,000 CFU/mL normal urogenital lina 08/09/2013 6:20 AM [facility] Urine URINE SPECIMEN OBTAINED BY CLEAN CATCH PROCEDURE / Unknown 08/07/2013 5:46 PM DIRECTOR OF TESTING 08/07/2013 5:48 PM DIRECTOR OF TESTING Dana Zimmer DO LAB - MICROBIOLOGY O RDERABLES [facility] [address] [place] [address], [facility] * CT ABDOMEN AND PELVIS WITH IV CONTRAST (08/07/2013 2:55 PM DIRECTOR OF TESTING) Anatomical Region Laterality Modality Abdomen, Pelvis Computed Tomogra phy 08/07/2013 2:55 PM DIRECTOR OF TESTING Narrative 08/07/2013 2:58 PM DIRECTOR OF TESTING Examination: CT abdomen and pelvis with contrast. [...] ORDERABLES * LIPASE BLOOD (08/07/2013 1:05 PM DIRECTOR OF TESTING) Lipase 162 73 - 393 U/L 08/07/2013 1:33 PM DIRECTOR OF TESTING [facility] Blood BLOOD SPECIMEN / Unknown 08/07/2013 1:05 PM DIRECTOR OF TESTING 08/07/2013 1:10 PM DIRECTOR OF TESTING Dana Zimmer DO LAB - CHEMISTRY ANUSHKA LOVE Performing Organization Address City/State/[facility] Co de Phone Number [facility] [address] [place] [address] * TROPONIN I (08/07/2013 1:05 PM DIRECTOR OF TESTING) Troponin I <0.015 0.000 - 0.049 ng/mL 08/07/2013 1:34 PM DIRECTOR OF TESTING [facility] Blood BLOOD SPECIMEN / Unknown 08/07/2013 1:05 PM DIRECTOR OF TESTING 08/07/2013 1:10 PM DIRECTOR OF TESTING Narrative [facility] - 08/07/2013 1:34 PM DIRECTOR OF TESTING Note: Diagnosis of myocardial infarction requires symptoms [...] pulmonary embolism, renal failure and sepsis. Dana Dante Zimmer LAB - CHEMISTRY ANUSHKA LOVE [facility] [address] [place] [address] * (ABNORMAL) COMPREHENSIVE METABOLIC PANEL (08/07/2013 1:05 PM [facility]) [facility] Glucose 93 74 - 106 mg/dL 08/07/2013 1:33 PM [facility] Sodium 138 136 - 145 mmol/L 08/07/2013 1:33 PM [facility] Potassium 4.1 3.5 - 5.1 mmol/L 08/07/2013 1:33 PM [facility] Chloride 109(H) 98 - 107 mmol/L 08/07/2013 1:33 PM [facility] CO2 24 22 - 31 mmol/L 08/07/2013 1:33 PM [facility] Calcium 8.7 8.5 - 10.1 mg/dL 08/07/2013 1:33 PM [facility] Anion Gap 5 5 - 15 mmol/L 08/07/2013 1:33 PM [facility] BUN 16 7 - 21 mg/dL 08/07/2013 1:33 PM [facility] Creatinine 0.55 0.50 - 1.30 mg/dL 08/07/2013 1:33 PM [facility] eGFR by MDRD >60 >60 mL/min/1.7 3m2 08/07/2013 1:33 PM [facility] eGFR by MDRD >60 >60 mL/min/1.7 3m2 08/07/2013 1:33 PM [facility] Alkaline Phosphatase 179(H) 38 - 126 U/L 08/07/2013 1:33 PM [facility] ALT 915(H) 12 - 78 U/L 08/07/2013 1:33 PM [facility] AST 355(H) 5 - 40 U/L 08/07/2013 1:33 PM [facility] Protein Total 8.3(H) 6.4 - 8.2 gm/dL 08/07/2013 1:33 PM [facility] Albumin 3.7 3.4 - 5.0 gm/dL 08/07/2013 1:33 PM [facility] Bilirubin Total 1.0 0.2 - 1.0 mg/dL 08/07/2013 1:33 PM [facility] Blood BLOOD SPECIMEN / Unknown 08/07/2013 1:05 PM DIRECTOR OF TESTING 08/07/2013 1:10 PM DIRECTOR OF TESTING Dana Zimmer DO LAB - CHEMISTRY FRANKE IVAN [facility] [address] [place] [address] * (ABNORMAL) CBC W AUTO DIFFERENTIAL (08/07/2013 1:05 PM [facility]) WBC 6.4 4.4 - 10.7 x10^9/L 08/07/2013 1:16 PM [facility] RBC 5.38(H) 3.80 - 5.20 x10^12/L 08/07/2013 1:16 PM [facility] Hemoglobin 15.9(H) 12.0 - 15.6 gm/dL 08/07/2013 1:16 PM [facility] Hematocrit 46.2(H) 35.9 - 45.5 % 08/07/2013 1:16 PM [facility] MCV 85.9 80.7 - 98.3 fl 08/07/2013 1:16 PM [facility] MCH 29.6 26.7 - 34.0 pg 08/07/2013 1:16 PM [facility] MCHC 34.4 30.8 - 35.9 gm/dL 08/07/2013 1:16 PM [facility] Platelet Count 236 153 - 416 x10^9/L 08/07/2013 1:16 PM [facility] RDW-CV 16.4(H) 12.1 - 14.9 % 08/07/2013 1:16 PM [facility] MPV 10.8 9.4 - 12.9 fl 08/07/2013 1:16 PM [facility] Neutrophils % 56.3 44.0 - 73.0 % 08/07/2013 1:16 PM [facility] Lymphocytes % 33.1 20.0 - 43.0 % 08/07/2013 1:16 PM DIRECTOR OF TESTING [facility] Monocytes % 8.0 5.0 - 13.0 % 08/07/2013 1:16 PM DIRECTOR OF TESTING [facility] Eosinophils % 1.4 0.0 - 6.0 % 08/07/2013 1:16 PM DIRECTOR OF TESTING [facility] Basophils % 0.9 0.0 - 2.0 % 08/07/2013 1:16 PM DIRECTOR OF TESTING [facility] Immature Granulocytes 0.3 0 - 1 % 08/07/2013 1:16 PM DIRECTOR OF TESTING [facility] Neutrophil Absolute 3.60 2.01 - 7.14 x10^9/L 08/07/2013 1:16 PM DIRECTOR OF TESTING [facility] Lymphocytes Absolute 2.12 1.07 - 3.94 x10^9/L 08/07/2013 1:16 PM DIRECTOR OF TESTING [facility] Monocytes Absolute 0.51 0.26 - 1.07 x10^9/L 08/07/2013 1:16 PM DIRECTOR OF TESTING [facility] Eosinophils Absolute 0.09 0 - 0.47 x10^9/L 08/07/2013 1:16 PM DIRECTOR OF TESTING [facility] Basophils Absolute 0.06 0 - 0.08 x10^9/L 08/07/2013 1:16 PM DIRECTOR OF TESTING [facility] Immature Granulocytes Absolute 0.02 0.00 - 0.06 x10^9/L 08/07/2013 1:16 PM DIRECTOR OF TESTING [facility] Blood BLOOD SPECIMEN / Unknown 08/07/2013 1:05 PM DIRECTOR OF TESTING 08/07/2013 1:10 PM DIRECTOR OF TESTING Dana Zimmer DO LAB - HEMATOLOGY ORD ERABLES [facility] [address] [place] [address] * EKG 12-LEAD (08/07/2013 12:26 PM DIRECTOR OF TESTING) Ventricular Rate 75 BPM [facility] Atrial Rate 75 BPM [facility] P-R Interval 162 ms [facility] QRS Duration ms 90 ms [facility] Q-T Interval ms 422 ms [facility] QTC Calculation (Bezet) 471 ms [facility] Calculated P [place] 23 degrees [facility] Calculated R [place] -19 degrees [facility] Calculated T [place] 10 degrees [facility] Interpretation EKG Normal sinus rhythm Minimal voltage criteria for LVH, may be normal variant Cannot rule out Anterior infarct , age undetermined Abnormal ECG No previous ECGs available Confirmed by MD ROCIO, HERNAN ([id number]) on 08/08/2013 8:39:37 AM [facility] 08/07/2013 12:2 6 PM DIRECTOR OF TESTING 08/08/2013 8:39 AM DIRECTOR OF TESTING Narrative [facility] - 08/08/2013 8:39 AM DIRECTOR OF TESTING Procedure Note Document, Scanned - 08/08/2013 6:47 AM CST Transcriptions Document, Scanned - 08/08/2013 6:57 AM CST Document, Scanned - 08/08/2013 8:41 AM CST Dana Zimmer DO ECG ORDERABLES [facility] documented in this encounter Visit Diagnoses Diagnosis Abdominal pain, acute- Primary Abdominal pain, unspecified site Acute liver disease Unspecified disorder of liver HTN (hypertension) Unspecified essential hypertension Abdominal pain Depressive disorder, not elsewhere classified Prediabetes Other abnormal glucose Mixed hyperlipidemia Hypothyroidism Unspecified hypothyroidism Pain in the abdomen Abdominal pain, unspecified site Pain Generalized pain Acute liver disease Unspecified disorder of liver Abdominal pain documented in this encounter Administered Medications Inactive Administered Medications - up to 3 most recent administrations Medication Order MAR Action Action Date Dose Rate Site 0.9% NaCl infusion at 75 mL/hr, Intravenous, CONTINUOUS, Starting on 08/07/13 at 1700, Until 08/14/13 at 1431 $ New Bag/Syringe 08/14/2013 7:01 AM DIRECTOR OF TESTING 75 mL/ hr $ New Bag/Syringe 08/13/2013 7:04 PM DIRECTOR OF TESTING 75 mL/ hr $ New Bag/Syringe 08/13/2013 6:20 AM DIRECTOR OF TESTING 75 mL/ hr 0.9% NaCl injection 3 mL 3 mL, Intracatheter, EVERY 8 HOURS, First dose on Thu08/10/13 at 1415, Until Discontinued, For Saline Lock flushes if one is inserted for Endoscopy procedure., Pre-procedure (GI) $ Given 08/13/2013 9:01 PM DIRECTOR OF TESTING 3 mL $ Given 08/13/2013 2:09 PM DIRECTOR OF TESTING 3 mL $ Given 08/13/2013 6:19 AM DIRECTOR OF TESTING 3 mL aspirin tablet 325 mg 325 mg, Oral, DAILY, First dose on Thu08/07/13 at 2030, Until Discontinued $ Given 08/14/2013 8:48 AM DIRECTOR OF TESTING 325 mg $ Given 08/13/2013 9:06 AM DIRECTOR OF TESTING 325 mg $ Given 08/11/2013 10:42 AM DIRECTOR OF TESTING 325 mg fentaNYL (SUBLIMAZE) injection 25 mcg 25 mcg, Intravenous, ONCE, 1 dose, On Thu08/12/13 at 1245 $ Given 08/12/2013 12:45 PM DIRECTOR OF TESTING 25 mcg fentaNYL (SUBLIMAZE) injection 50 mcg 50 mcg, Intravenous, EVERY 10 MIN PRN, Severe Pain, 4 doses, Starting on Thu08/10/13 at 1013, Until Thu08/10/13 at 1838, Maximum total of 4 doses If patient reaches max total dose, please consult anesthesiologist prior to further administration of pain meds. Hold pain meds if there are signs of hypoventilation., PACU $ Given 08/10/2013 10:30 AM DIRECTOR OF TESTING 50 mcg $ Given 08/10/2013 10:04 AM DIRECTOR OF TESTING 50 mcg hydrocodone-acetaminophen (NORCO) 5-325 MG tablet 1-2 Tab 1-2 tablet, Oral, EVERY 4 HOURS PRN, Moderate Pain, Starting on Thu08/10/13 at 2228, Until Thu08/14/13 at 1431, Maximum allowable Acetaminophen amount = 4 Grams (4000 mg) / 24 hours. $ Given 08/13/2013 8:59 PM DIRECTOR OF TESTING 2 tablets $ Given 08/13/2013 2:14 PM DIRECTOR OF TESTING 2 tablets $ Given 08/12/2013 9:01 PM DIRECTOR OF TESTING 2 tablets HYDROmorphone (DILAUDID) injection 0.5 mg 0.5 mg, Intravenous, EVERY 4 HOURS PRN, Pain, Starting on Thu08/07/13 at 1732, Until Thu08/10/13 at 1838, For severe pain (pain scale score of 7-10) $ Given 08/10/2013 3:37 PM DIRECTOR OF TESTING 0.5 mg $ Given 08/10/2013 5:23 AM DIRECTOR OF TESTING 0.5 mg $ Given 08/10/2013 1:00 AM DIRECTOR OF TESTING 0.5 mg HYDROmorphone (DILAUDID) injection 0.5 mg 0.5 mg, Intravenous, ONCE, 1 dose, On Thu08/07/13 at 1645 $ Given 08/07/2013 4:45 PM DIRECTOR OF TESTING 0.5 mg HYDROmorphone (DILAUDID) injection 0.5 mg 0.5 mg, Intravenous, EVERY 10 MIN PRN, Severe Pain, 4 doses, Starting on Thu08/10/13 at 1142, Until Thu08/10/13 at 1835, Maximum total of 4 doses If patient reaches max total dose, please consult anesthesiologist prior to further administration of pain meds. Hold pain meds if there are signs of hypoventilation., PACU $ Given 08/10/2013 6:35 PM DIRECTOR OF TESTING 0.5 mg $ Given 08/10/2013 12:00 PM DIRECTOR OF TESTING 0.5 mg $ Given 08/10/2013 11:30 AM DIRECTOR OF TESTING 0.5 mg HYDROmorphone (DILAUDID) injection 0.5 mg 0.5 mg, Intravenous, EVERY 2 HOURS PRN, Pain, Starting on Thu08/10/13 at 1845, Until Thu08/12/13 at 1121, For severe pain (pain scale score of 7-10) $ Given 08/12/2013 6:09 AM DIRECTOR OF TESTING 0.5 mg $ Given 08/11/2013 10:59 PM DIRECTOR OF TESTING 0.5 mg $ Given 08/11/2013 8:05 PM DIRECTOR OF TESTING 0.5 mg HYDROmorphone (DILAUDID) injection 0.5 mg 0.5 mg, Intravenous, EVERY 4 HOURS PRN, Pain, Starting on Thu08/12/13 at 1130, Until Thu08/13/13 at 1243, For severe pain (pain scale score of 7-10) $ Given 08/12/2013 10:18 PM DIRECTOR OF TESTING 0.5 mg HYDROmorphone (DILAUDID) injection 1 mg 1 mg, Intravenous, ONCE, 1 dose, On Thu08/07/13 at 1330 $ Given 08/07/2013 2:15 PM DIRECTOR OF TESTING 1 mg iohexol (OMNIPAQUE 350) contrast 50 mL 50 mL, Oral, ONCE, 1 dose, On Thu08/07/13 at 1345, Mix 50 mL in 32 ounces of Gatorade $ Given 08/07/2013 2:16 PM DIRECTOR OF TESTING 50 mL iohexol (OMNIPAQUE 350) contrast Intravenous, CONTRAST ONCE, Starting on Thu08/07/13 at 1321, Until Tu08/09/13 at 1320 $ Given 08/07/2013 2:42 PM DIRECTOR OF TESTING 80 mL labetalol (NORMODYNE; TRANDATE) injection 10 mg 10 mg, Intravenous, POST-OP MULTIPLE, Starting on 08/10/13 at 1156, Until 08/14/13 at 1431, IV given slowly over 1 minute up to 20 mg. Repeat every 10-15 minutes in 5 mg doses. Hold if heart rate is less than 60. Give PRN for hypertension SBP greater than 180, DBP greater than 100., PACU $ Given 08/10/2013 11:45 AM DIRECTOR OF TESTING 10 mg levothyroxine (SYNTHROID) tablet 88 mcg 88 mcg, Oral, DAILY BEFORE BREAKFAST, First dose on 08/08/13 at 0630, Until Discontinued $ Given 08/14/2013 6:16 AM DIRECTOR OF TESTING 88 mcg $ Given 08/13/2013 6:19 AM DIRECTOR OF TESTING 88 mcg $ Given 08/12/2013 2:54 PM DIRECTOR OF TESTING 88 mcg lisinopril (PRINIVIL; ZESTRIL) tablet 40 mg 40 mg, Oral, DAILY, First dose on 08/07/13 at 2030, Until Discontinued, Hold for SBP <120 $ Given 08/14/2013 8:48 AM DIRECTOR OF TESTING 40 mg $ Given 08/13/2013 9:07 AM DIRECTOR OF TESTING 40 mg $ Given 08/12/2013 2:55 PM DIRECTOR OF TESTING 40 mg magnesium hydroxide (MILK OF MAGNESIA) suspension 30 mL 30 mL, Oral, PRN, Constipation, Starting on 08/13/13 at 1241, Until 08/14/13 at 1431, Shake well before using. $ Given 08/14/2013 8:48 AM DIRECTOR OF TESTING 30 mL $ Given 08/13/2013 5:37 PM DIRECTOR OF TESTING 30 mL metoprolol tartrate IR (LOPRESSOR) tablet 25 mg 25 mg, Oral, 2 TIMES DAILY, First dose on 08/07/13 at 2100, Until Discontinued, Hold for SBP <110 $ Given 08/14/2013 8:48 AM DIRECTOR OF TESTING 25 mg $ Given 08/13/2013 8:59 PM DIRECTOR OF TESTING 25 mg $ Given 08/13/2013 9:06 AM DIRECTOR OF TESTING 25 mg miconazole (MONISTAT) vaginal suppository 200 mg 200 mg, Vaginal, AT BEDTIME, First dose on 12/7/13 at 2100, Until Discontinued $ Given 08/13/2013 8:59 PM DIRECTOR OF TESTING 200 mg morphine injection 2 mg 2 mg, Intravenous, EVERY 15 MIN PRN, Moderate Pain, 5 doses, Starting on Thu08/10/13 at 1056, Until Thu08/10/13 at 1838, Maximum total of 5 doses. If patient reaches max total dose, please consult anesthesiologist prior to further administration of pain meds. Hold pain meds if there are signs of hypoventilation., PACU $ Given 08/10/2013 10:45 AM DIRECTOR OF TESTING 2 mg ondansetron (ZOFRAN) injection 4 mg 4 mg, Intravenous, EVERY 30 MIN PRN, Nausea/Vomiting, 2 doses, Starting on Thu08/07/13 at 1215, Until Thu08/07/13 at 1732 $ Given 08/07/2013 4:44 PM DIRECTOR OF TESTING 4 mg ondansetron (ZOFRAN) injection 4 mg 4 mg, Intravenous, ONCE, 1 dose, On Thu08/07/13 at 1330 $ Given 08/07/2013 2:15 PM DIRECTOR OF TESTING 4 mg ondansetron (ZOFRAN) injection 4 mg 4 mg, Intravenous, EVERY 4 HOURS PRN, Nausea/Vomiting, Starting on Thu08/07/13 at 1732, Until Thu08/14/13 at 1431 $ Given 08/12/2013 12:30 PM DIRECTOR OF TESTING 4 mg $ Given 08/10/2013 2:09 PM DIRECTOR OF TESTING 4 mg $ Given 08/09/2013 7:47 PM DIRECTOR OF TESTING 4 mg ondansetron (ZOFRAN) injection 4 mg 4 mg, Intravenous, POST-OP ONCE, 1 dose, PACU $ Given 08/10/2013 10:15 AM DIRECTOR OF TESTING 4 mg ondansetron (ZOFRAN) injection 4 mg 4 mg, Intravenous, ONCE, 1 dose, On Thu08/12/13 at 1245 $ Given 08/12/2013 12:45 PM DIRECTOR OF TESTING 4 mg prochlorperazine (COMPAZINE) injection 5 mg 5 mg, Intravenous, POST-OP MULTIPLE, Starting on Thu08/10/13 at 1027, Until Thu08/14/13 at 1431, Max intravenous rate = 5 mg/min $ Given 08/10/2013 10:30 AM DIRECTOR OF TESTING 5 mg senna-docusate (SENOKOT-S) tablet 1 Tab 1 tablet, Oral, DAILY, First dose on 08/13/13 at 1315, Until Discontinued $ Given 08/14/2013 8:48 AM DIRECTOR OF TESTING 1 tablet $ Given 08/13/2013 2:09 PM DIRECTOR OF TESTING 1 tablet documented in this encounter Active and Recently Administered Medications Times are shown in DIRECTOR OF TESTING. Scheduled Medication Order 08/12/2013 08/13/2013 08/14/2013 0.9% NaCl injection 3 mL (CANCELED) 3 mL, Intracatheter, EVERY 8 HOURS, First dose on 08/10/13 at 1415, Until Discontinued, For Saline Lock flushes if one is inserted for Endoscopy procedure., Pre-procedure (GI) 0601 ($ Given - Provider: Parul Moreno RN)1457 ($ Given - Provider: Ni Gonzalez RN)2218 ($ Given - Provider: Donna Huffman, CHARIS) 0619 ($ Given - Provider: Donna Huffman, CHARIS)1409 ($ Given - Provider: Roxanna Lawson RN)2101 ($ Given - Provider: Zulema Conde, [...] 25 mcg, Intravenous, ONCE, 1 dose, On 08/12/13 at 1245 1245 ($ Given - Provider: Ofelia Hernandez, CHARIS) levothyroxine (SYNTHROID) tablet 88 mcg (CANCELED) 88 [...] RN) 0907 ($ Given - Provider: Roxanna Lawson, CHARIS) 0848 ($ Given - Provider: Roxanna Lawson, CHARIS) metoprolol tartrate IR (LOPRESSOR) tablet 25 mg (CANCELED) 25 mg, Oral, 2 TIMES DAILY, First dose on 08/07/13 at 2100, Until Discontinued, Hold for SBP <110 0925 ($ Given - Provider: Ni Gonzalez RN)2218 ($ Given - Provider: Donna Huffman RN) 0906 ($ Given - Provider: Roxanna Lawson RN)2058 ($ Given - Provider: Zulema Conde RN) 0848 ($ Given - Provider: Roxanna Lawson RN) miconazole (MONISTAT) vaginal suppository 200 mg (CANCELED) [...] 4 HOURS PRN, Moderate Pain, Starting on 08/10/13 at 2228, Until 08/14/13 at 1431, Maximum allowable Acetaminophen amount = 4 Grams (4000 mg) / 24 hours. 0142 ($ Given - Provider: Parul Moreno RN)1706 ($ Given - Provider: Ni Gonzalez RN)2101 ($ Given - Provider: Zulema Conde RN) 1414 ($ Given - Provider: Roxanna Lawson, CHARIS)2059 ($ Given - Provider: Zulema Conde RN) [...] RN) documented in this encounter Care Teams Fermentologist Relationship Specialty Start Date End Date Sveta Rai MD PCP - General Internal Medicine 02/22/13 12/07/16 documented as of this encounter
--- OUTSIDE RECORDS SUMMARY | 2024-09-18 09:37 | XMS_ITS | Encounter Summary ---
Author Organization [facility] Address [address] [facility] [place] [address] Care Team Providers Care Lean Engineer Name Role Phone Sveta Rai MD Primary Care Provider Reason for Visit * Reason Onset Date Comments Medication Clarification 02/22/2013 Encounter Details Date Type Department Care Team (Late st Contact Info) Description 02/22/2013 Telephone [facility] - Family Medicine [id number] [place] [address] [phone] Sveta Rai MD [address] [place] [address] DR NOONAN [address] [place] [id number] Medication Clarification Social History Tobacco Use Types [...] encounter Miscellaneous Notes * Telephone Encounter - Jasmeet Odell - 02/22/2013 3:29 PM CDT [facility] corrected order sent verified with Renetta order received. * Telephone Encounter - NewsomeAdilsony - 02/22/2013 3:21 PM CDT A corrected order was sent to the pharmacy please advise * Telephone Encounter - Alejandro Baylee V - 02/22/2013 3:12 PM CDT Pharmacy needs amount/quantity of nitrostat? Please advise documented in this encounter Plan of Treatment Upcoming Encounters Date Type Department Care Team (Late st Contact Info) Description 09/27/2024 2:20 PM MACHINE RUG CLEANER Office Visit [facility] [address] [facility] [address] [place] [address] [place] [address] [facility] [address] [place] [id number] 09/28/2024 1:00 PM MACHINE RUG CLEANER Office Visit [facility] [place] [address] [address] [address] [place] [address] [facility] [address] [place] [address] documented as of this encounter Visit Diagnoses Not on filedocumented in this encounter Care Teams Lean Engineer Relationship Specialty Start Date End Date Sveta Rai MD PCP - General Internal Medicine 02/22/13 12/07/16 documented as of this encounter
--- OUTSIDE RECORDS SUMMARY | 2024-09-18 09:39 | XMS_ITS | Clinical Summary ---
Author Organization [address] Address [facility] [place] [address] Care Team Providers Care Camp Manager Name Role Phone Naya Arriola Primary Care Provider [phone] Allergies Active Allergy Reactions Criticality Noted Date Comments Latex Rash Medium 01/02/2020 Sulfa (Sulfonamide Antibiotics) Anaphylaxis High Medications amitriptyline (ELAVIL) 75 mg tablet Take by mouth nightly Active pantoprazole DR (PROTONIX) 40 mg EC tablet Take 1 tablet (40 mg total) by mouth daily Active metoprolol tartrate (LOPRESSOR) 50 mg immediate release tablet Take 1 tablet (50 mg total) by mouth 2 (two) times a day Active metFORMIN (GLUMETZA) 500 mg 24 hr tablet Take 1 tablet (500 mg total) by mouth daily with breakfast Active atorvastatin (LIPITOR) 40 mg tablet Take 1 tablet (40 mg total) by mouth daily Active levothyroxine (SYNTHROID) 88 mcg tablet Take 1 tablet (88 mcg total) by mouth petroleum production engineer before breakfast Active linaCLOtide (LINZESS) 290 mcg capsule Take 1 capsule (290 mcg total) by mouth daily Active cholecalciferol (VITAMIN D-3) 5,000 unit capsule Take 1 capsule (5,000 Units total) by mouth daily Active LIRAGLUTIDE SUBQIndications: type 2 diabetes mellitus Inject 1.2 mg under the skin daily Indications: type 2 diabetes mellitus Active furosemide (LASIX) 20 mg tablet 1 tablet (20 mg total) every other day 1 Active lisinopriL (PRINIVIL,ZESTRI L) 20 mg tablet TAKE 1 TABLET BY MOUTH EVERY DAY 90 tablet 1 10/03/202 2 Active isosorbide mononitrate ER (IMDUR) 30 mg 24 hr tablet TAKE 1 TABLET BY MOUTH EVERY DAY 90 tablet 2 2 Active aspirin 81 mg enteric coated tablet TAKE 1 TABLET BY MOUTH EVERY DAY 30 tablet 5 2 Active celecoxib (CeleBREX) 100 mg capsule TAKE ONE CAPSULE BY MOUTH TWICE DAILY NEEDED WITH FOOD 3 Active nitroglycerin (NITROSTAT) 0.[address] 1 tablet (0.4 mg total) under the tongue every 5 (five) minutes as needed for chest pain 25 tablet 3 3 Active Active Problems Problem Noted Date Diagnosed Date Hypertension associated with diabetes 04/18/2020 Mixed diabetic hyperlipidemi a associated with type 2 diabetes mellitus ([facility]) 04/18/2020 QT prolongation 04/18/2020 LISSETTE (obstructive sleep apnea) 01/02/2020 SLE (systemic lupus erythematosus) ([facility]) Morbid obesity with BMI of 40.0-44.9, adult 12/07 History of tobacco abuse 01/02/2020 Coronary artery disease invo lving [place] coronary artery of [place] heart without angina pectoris 01/02/2020 Surgical History Surgery Date Site/Laterality Comments CARDIAC STENT PLACEMENT CHOLECYSTECTOMY TONSILLECTOMY LAPAROSCOPIC GASTRIC BANDING KNEE ARTHROSCOPY W/ LATERAL RELEASE 09/07/1991 - 992 JOINT REPLACEMENT 06/16/2017 BARIATRIC SURGERY 09/07/2009 - 09/06/2010 Medical History Medical History Date Comments Hypertension Heart attack (HCC) Thyroid disease Hyperlipidemia Diabetes mellitus (HCC) Gall stones Anxiety Sleep apnea Arthritis Depression 2006 Heart disease 2011 Neuromuscular disorder (HCC) 2006 Autoimmune disease ([facility]) (HCC) 2006 Family History Medical History Relation Name Comments Cancer Daughter 1 Cholo Grissom Cancer Daughter 2 Tommy Jaciel Early Father To [place] Heart attack Father To [place] Arthritis Mother Analy [place] Heart attack Mother Analy [place] Hyperlipidemia Mother Analy [place] Depression Sister 1 Jaimie akers Diabetes Sister 1 Jaimie akers Hypertension Sister 1 Jaimie akers Obesity Sister 1 Jaimie akers Obesity Sister 2 Ryanne Styles Relation Name Status Comments Daughter 1 [place] Young Daughter 2 Tommy Young Father To [place] (Age 46) Mother Analy [place] (Age 63) Sister 1 Jaimie akers Sister 2 Ryanne Styles Social History Tobacco Use Types Packs/Day Years Used Date Smoking Tobacco: Former Cigarettes Q uit: 06/2019 Smokeless Tobacco: Never Tobacco Cessation:Counseling Given: Not Answered Alcohol Use Standard Drinks/Week Comments Not Currently 0 (1 standard drink = 0.6 oz pur e alcohol) 1 or twice a year Personal Safety Answer Date Recorded Getting School Help Needed Not on file 08/18 Comments Unknown Sex and Gender Information Value Date Recorded Sex Assigned at Not on file Legal Sex Female 12:28 PM SERVICE LEARNING COORDINATOR Gender Identity Female 01/13/2020 8:00 PM CDT Sexual Orientation Straight 01/13/2020 8: 00 PM CDT Obstetrics History Last Filed Vital Signs Vital Sign Reading Time Taken Comments Blood Pressure 114/74 08/19/2023 1:45 PM SERVICE LEARNING COORDINATOR Pulse 95 08/19/2023 1:45 PM SERVICE LEARNING COORDINATOR Temperature - - Respiratory Rate - - Oxygen Saturation 97% 08/19/2023 1:45 PM SERVICE LEARNING COORDINATOR Inhaled Oxygen Concentration - - Weight 107.5 kg (236 lb 14.4 oz) 08/19/2023 1:45 PM SERVICE LEARNING COORDINATOR Height 160 cm (5' 3 ) 08/19/2023 1:45 PM SERVICE LEARNING COORDINATOR Body Mass Index 41.96 08/19/2023 1:45 PM SERVICE LEARNING COORDINATOR Plan of Treatment Health Maintenance Due Date Last Done Comments Albumin Creatinine Ratio, Urine 1964 Breast Cancer Screening-Mammogram 1964 Cervical Cancer Screening 1964 Colon Cancer Screening-Colonoscopy 1964 Depression Screening 1964 Hemoglobin A1C 1964 Hepatitis C Screening 1964 eGFR 1964 Dilated Eye Exam 1964 Foot Exam 1964 DTaP/Tdap/Td Vaccine (1 - Tdap) 1975 Hepatitis B Screening 1982 Regular Well Visit/Exam 18-64 1982 Zoster Vaccine (1 of 2) 2014 Pneumococcal vaccine <65 (2 of 2 - PPSV23 or PCV20) 04/22/2016 02/26/2016 Influenza Vaccine (#1) 2024 8, 06/19/2017, 06/27/2015 Lipid Panel 08/19/2024 08/19/2023, 07/08, 07/26/2021, Additional history exists Procedures Procedure Name Priority Date/Time Associated Diagnosis Comments POCT LIPID PANEL Routine 08/19/2023 2:00 PM SERVICE LEARNING COORDINATOR Mixed 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 (CMS/HCC) (HCC) from Last 3 Months or Most Recently Relevant to Health Maintenance Results * POCT lipid panel (08/19/2023 2:00 PM SERVICE LEARNING COORDINATOR) Cholesterol, POC 162 mg/dL Comment:GLU = 87 HDL, POC 36 mg/dL Triglycerides, POC 280 mg/dL LDL Cholesterol POC 70 mg/dL Chol/HDL Ratio, POC 1.9 Non-HDL Cholesterol, POC 126 mg/dL Cholesterol Total, POC 162 mg/dL Capillary blood 08/19/2023 2 :00 PM SERVICE LEARNING COORDINATOR Kike Alexandre MD POINT OF CARE TEST ORDER SOFY Final Result from Last 3 Months or Most Recently Relevant to Health Maintenance Insurance [facility] CHOICE PLUS [facility] CHOICE PLUS [place] [id number] [facility] CHOICE PLUS [place] [id number] Care Teams Camp Manager Relationship Specialty Start Date End Date Naya Arriola PA [address] [place] [address] PCP - General Physician Brine Tank Operator 10/20/19
--- OUTSIDE RECORDS SUMMARY | 2024-09-18 09:39 | XMS_ITS | CONTINUITY OF CARE DOCUMENT ---
Author Name gama malloy Address Unknown Organization [facility] Address [address] [facility] [address] [place] [address] Phone [phone] Care Team Providers Care Avionic Technician Name Role Phone Erick PRICE, Devin Unavailable JORGE PRICE, LINDA Unavailable Unavailable INSURANCE PROVIDERS Payer name Policy type / Coverage type [place] red [employer] [facility] [id number] Other [id number]
--- OUTSIDE RECORDS SUMMARY | 2024-09-18 09:40 | XMS_ITS | Encounter Summary ---
Author Organization [facility] Address [address] [place] [address] Care Team Providers Care Ordnance Handler Name Role Phone Naya Arriola Primary Care Provider [phone] Reason for Visit * Reason Comments Coronary Artery Disease 6 month f/u Headache Encounter Details Date Type Department Care Team (Late st Contact Info) Description 10/26/2020 1:30 PM DENTAL OFFICER Office Visit [facility] Cardiology [address] [facility] [address] [place] [address] Kike Alexandre MD [address] [facility] [address] [place] [address] 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 (CMS/HCC) (Primary Dx); Hypertension associated with diabetes (CMS/HCC); Dyslipidemia associated with type 2 diabetes mellitus (CMS/HCC); QT prolongation; Morbid obesity with BMI of 45.0-49.9, adult (CMS/HCC); History of tobacco abuse Social History Tobacco Use Types Packs/Day Years Used Date Smoking Tobacco: Former Cigarettes Q uit: 06/2019 Smokeless Tobacco: Never Alcohol Use Standard Drinks/Week Comments Not Currently 0 (1 standard drink = 0.6 oz pur e alcohol) 1 or twice a year Comments Unknown Sex and Gender Information Value Date Recorded Sex Assigned at Not on file Legal Sex Female 12:28 PM DENTAL OFFICER Gender Identity Female 01/13/2020 8:00 PM CDT Sexual Orientation Straight 01/13/2020 8: 00 PM CDT documented as of this encounter Last Filed Vital Signs Vital Sign Reading Time Taken Comments Blood Pressure 118/62 10/26/2020 1:49 PM DENTAL OFFICER Pulse 92 10/26/2020 1:49 PM DENTAL OFFICER Temperature - - Respiratory Rate - - Oxygen Saturation 99% 10/26/2020 1:49 PM DENTAL OFFICER Inhaled Oxygen Concentration - - Weight 117.3 kg (258 lb 8 oz) 10/26/2020 1:49 PM DENTAL OFFICER Height 160 cm (5' 3 ) 10/26/2020 1:49 PM DENTAL OFFICER Body Mass Index 45.79 10/26/2020 1:49 PM DENTAL OFFICER documented in this encounter Progress Notes * Kike Alexandre MD - 10/26/2020 1:30 PM CST [facility] DATE OF VISIT: 10/26/2020 CHIEF COMPLAINT Chief Complaint Patient presents with ??? Coronary Artery Disease 6 month f/u ??? 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) History of tobacco abuse PLAN/RECOMMENDATIONS 1. Anginal symptoms improved with long-acting nitrate therapy. Continue isosorbide mononitrate 30 mg daily. Dewey well. -Aggressive CAD risk modification counseling performed. Continue current medical therapy. Notify office immediately with anginal symptoms. -stable moderate nonobstructive disease on recent left heart catheterization. Notify the office with progressive symptoms and/or new concerns such as intolerance to medical therapy. -continue aspirin 81 mg daily. 2. Monitor BP on routine basis. Call with readings. Continue consistent cardiovascular exercise, weight loss, medication compliance, and low-sodium diet. 3. Lipids personally reviewed from 12/23/19 LDL 57, well controlled. Continue statin therapy and lifestyle modification. Goal LDL less than 70. Tolerating atorvastatin 40 mg at bedtime. 4. DM managed by PCP 5. Follow up with sleep study and tx for LISSETTE as I suspect many of her sxs are contributed by untreated LISSETTE. She has not yet done sleep study as apparently was not ordered. 6. Lifestyle modification counseling performed. Weight loss, exercise, reduction in caloric intake. 7. Coronavirus pandemic precaution counseling. Patient higher risk for complications Repeat EKG normal QT 05/2020 personally reviewed and discussed need for ongoing monitoring particularly if new med with QT prolonging properties. Would rec baseline ECGprior to such meds if no alternative and repeat within 1 month thereafter. Explained QT prolongation may not have simply been due toHydroxyzine but exacerbated by it with underlying predisposition/ongoing risk. Over 50% of this visit counseling CAD, HTN, lipids, medications, lifestyle modification. Follow up in the office in 9 months or sooner as needed. Thank you for allowing me the privilege of participating in the care this very pleasant patient. Please do not hesitate to contact me with any additional questions or concerns. HPI Lucretia Rodriguez is a 55 y.o. female with a PMHx of CAD status post myocardial infarction 2010 status post stent to proximal LAD, hypertension, type 2 diabetes mellitus, dyslipidemia, lupus erythematosus, morbid obesity, obstructive sleep apnea untreated, history of tobacco abuse seen in follow-up. Left heart catheterization [facility] December 2019: patent previously placed stent proximal LAD 10% InStent restenoses, 60-70% mid circumflex stenosis with post stenotic aneurysmal dilatation, 50-70% stenosis mid RCA very large caliber vessel. 01/02/20 This was a telemedicine visit with Lucretia Rodriguez alone which took place via Real-time audio/video communication/Doximity. During the visit, I was located [facility] Cardiology office and the patient was located at home. The session started at 1220 and ended at 1250. The patient has been informed that the visit may not be secure and acknowledged the information. I have explained the option of participating in a telephone or video visit during the COVID-19 public health emergency to the patient. After being given an opportunity to ask questions about and discuss this type of visit, the patient verbally consented to proceeding with the telephone / video visit. The patient understands that this service replaces an office visit and they may be billed and/or responsible for any applicable copayments. -Admitted to [facility] with CP concerning for angina negative troponins underwent C with mod disease. Feeling ok, better, no SOB but still tired, waking up frequently to use bathroom. She notes intolerable headaches with isosorbide mononitrate 30 mg daily but quite tolerable 15mg and noted improvement in her chest pain. She is comfortable and would like to continue with current regimen. Palps fluttering 30 sec to 1 minute without assoc sxs. Unable to tolerate CPAP for LISSETTE for years now. Has not seen PCP yet since hosp discharge. Patient says she has significant pain which limits her off meloxicam and would like to resume. 04/18/20 Feeling well, had noted some edema end of day lately but not wearing compression stockings at home. No CP or dizziness or SOB. No falls. Dewey Imdur 30mg daily as pill cutter broke and adapted to it but no CP. Working on CPAP, waiting to hear back scheduling her sleep study. Quit smoking and gained 20lbs but has not peaked and is reducing. 10/26/20 Doing ok c/o LAKE she relates to stress. Has some GERD sxs after eating [place]. No exertional CP or DENISE. BP ok at home. Mild edema worse as days progresses MEDICAL HISTORY Past Medical History: Diagnosis Date ??? Anxiety ??? Arthritis ??? Autoimmune disease (CMS/HCC) 2005 ??? Depression 2005 ??? Diabetes mellitus (CMS/HCC) ??? Gall stones ??? Heart attack (CMS/HCC) ??? Heart disease 2010 ??? Hyperlipidemia ??? Hypertension ??? Neuromuscular disorder (CMS/HCC) 2005 ??? Sleep apnea ??? Thyroid disease Social History Tobacco Use ??? Smoking status: Former Smoker Quit date: 06/2019 Years since quittin.3 ??? Smokeless tobacco: Never Used Substance Use Topics ??? Alcohol use: Not Currently Alcohol/week: 0.0 standard drinks Comment: 1 or twice a year ??? Drug use: Never Family History Problem Relation Age of Onset ??? Heart attack Mother ??? Arthritis Mother ??? Hyperlipidemia Mother ??? Heart attack Father ??? Early Father ??? Cancer Daughter ??? Cancer Daughter ??? Depression Sister ??? Diabetes Sister ??? Hypertension Sister ??? Obesity Sister ??? Obesity Sister MEDICATIONS HOME MEDICATIONS : amitriptyline (ELAVIL) 75 mg tablet aspirin 81 mg enteric coated tablet atorvastatin (LIPITOR) 40 mg tablet cholecalciferol (VITAMIN D-3) 5,000 unit capsule cyanocobalamin (Vitamin B-12) 1,000 mcg tablet hydroCHLOROthiazide (HYDRODIURIL) 25 mg tablet isosorbide mononitrate ER (IMDUR) 30 mg 24 hr tablet levothyroxine (SYNTHROID) 88 mcg tablet linaCLOtide (LINZESS) 290 mcg capsule liraglutide (VICTOZA) 0.6 mg/0.1 mL (18 mg/3 mL) injection lisinopriL (PRINIVIL,ZESTRIL) 20 mg tablet metFORMIN (GLUMETZA) 500 mg 24 hr tablet metoprolol tartrate (LOPRESSOR) 50 mg immediate release tablet nitroglycerin (NITROSTAT) 0.[address] SL tablet pantoprazole DR (PROTONIX) 40 mg EC tablet aspirin 81 mg enteric coated tablet hydrOXYzine (ATARAX) 25 mg tablet ALLERGIES Allergies Allergen Reactions ??? Sulfa (Sulfonamide Antibiotics) Anaphylaxis ??? Latex Rash REVIEW OF SYSTEMS Review of Systems Constitution: Positive for malaise/fatigue and weight gain. Negative for decreased appetite, diaphoresis, fever and night sweats. HENT: Negative for hearing loss and nosebleeds. Eyes: Negative for blurred vision and pain. Cardiovascular: Positive for leg swelling. Negative for chest pain, claudication, dyspnea on exertion, irregular heartbeat, near-syncope, orthopnea, palpitations and syncope. Respiratory: Positive for snoring. Negative for cough, hemoptysis, shortness of breath and wheezing. Endocrine: Negative for cold intolerance and heat intolerance. Hematologic/Lymphatic: Negative for bleeding problem. Does not bruise/bleed easily. Skin: Negative for color change, itching, rash and suspicious lesions. Musculoskeletal: Positive for arthritis and joint pain. Negative for falls, muscle weakness and myalgias. Gastrointestinal: Positive for heartburn. Negative for abdominal pain, hematemesis, melena and nausea. Genitourinary: Negative for dysuria, hematuria and nocturia. Neurological: Negative for excessive daytime sleepiness, dizziness, focal weakness, headaches, light-headedness, loss of balance and weakness. Psychiatric/Behavioral: Negative for altered mental status, depression and memory loss. The patientis not nervous/anxious. Allergic/Immunologic: Negative for environmental allergies. PHYSICAL EXAM Vitals BP 118/62 (BP Location: Left arm, Patient Position: Sitting) Pulse 92 Ht 160 cm (5' 3 ) Wt 117.3 kg (258 lb 8 oz) SpO2 99% BMI 45.79 kg/m?? Weight: 117.3 kg (258 lb 8 oz) Height: 160 cm (5' 3 ) Body mass index is 45.79 kg/m??. On video today patient appeared rested, no apparent distress, breathing comfortably, speaking in full sentences. She was alert and oriented x3, pleasant and cooperative. No dyspnea or tachypnea. Head atraumatic and normocephalic. Moving eyes normally, external inspection of nose normal. No facial dissymmetry. Mood calm and appropriate. LABS AND OTHER DIAGNOSTIC TESTS [facility] records, coronary angiography, EKG, blood work personally reviewed. LDL 57 12/23/19 Personally reviewed EKG, electronic medical record, and bloodwork/lipids. Latoya Alexandre MD, [facility] This note is dictated and transcribed using [employer] Direct Software. Business Process Architect variancesmay occur. Despite proofreading, typographical errors may occur. Physical Exam Constitutional: She is oriented to person, place, and time. She appears well- developed and well-nourished. She is cooperative. No distress. HENT: Head: Normocephalic and atraumatic. Right Ear: External ear normal. Left Ear: External ear normal. Nose: Nose normal. Mouth/Throat: Oropharynx is clear and moist and mucous membranes are normal. Normal dentition. Eyes: Conjunctivae, EOM and lids are normal. No scleral icterus. Neck: Normal range of motion. Neck supple. Normal carotid pulses, no hepatojugular reflux and no JVD present. Carotid bruit is not present. No tracheal deviation present. No thyromegaly present. Cardiovascular: Normal rate, regular rhythm, S1 normal, S2 normal, normal heart sounds, intact distal pulses and normal pulses. Exam reveals no gallop, no S3, no S4, no distant heart sounds and no friction rub. No murmur heard. Pulmonary/Chest: Effort normal and breath sounds normal. No respiratory distress. She has no wheezes. She has no rales. She exhibits no tenderness. Abdominal: Soft. Bowel sounds are normal. She exhibits no distension and no mass. There is no abdominal tenderness. There is no rebound and no guarding. Musculoskeletal: Normal range of motion. General: No tenderness, deformity or edema. Lymphadenopathy: She has no cervical adenopathy. Neurological: She is alert and oriented to person, place, and time. No cranial nerve deficit. She exhibits normal muscle tone. Coordination normal. Skin: Skin is warm and dry. No ecchymosis, no petechiae and no rash noted. She is not diaphoretic. No cyanosis or erythema. No pallor. Nails show no clubbing. Psychiatric: She has a normal mood and affect. Her speech is normal and behavior is normal. Judgment normal. 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) History of tobacco abuse documented in this encounter Discontinued Medications Medication Sig Discontinue Reason Start Date End Da te hydrOXYzine (ATARAX) 25 mg tablet Take 25 mg by mouth 3 (three) times a day as needed for itching Therapy completed 10/26/2020 hydrOXYzine (ATARAX) 25 mg tablet Take 25 mg by mouth 3 (three) times a day as needed for itching Therapy completed 10/26/2020 documented as of this encounter Care Teams Ordnance Handler Relationship Specialty Start Date End Date Naya Arriola PA [address] [place] [id number] PCP - General Physician Supervisor Typesetting 10/20/19 documented as of this encounter
--- OUTSIDE RECORDS SUMMARY | 2024-09-18 09:40 | XMS_ITS | Encounter Summary ---
Author Organization [facility] Address [address] [place] [address] Care Team Providers Care Oil Field Laborer Name Role Phone Naya Arriola Primary Care Provider [phone] Encounter Details Date Type Department Care Team (Late st Contact Info) Description 01/03/2020 Orders Only [facility] Cardiology [address] [facility] [address] [place] [address] ProviderIndira MD [address] [place] [id number] Social History Tobacco Use Types Packs/Day Years Used Date Smoking Tobacco: Former Cigarettes Q uit: 06/2019 Smokeless Tobacco: Never Alcohol Use Standard Drinks/Week Comments Not Currently 0 (1 standard drink = 0.6 oz pur e alcohol) Comments Unknown Sex and Gender Information Value Date Recorded Sex Assigned at Not on file Legal Sex Female 12:28 PM WEBBING SUPERVISOR Gender Identity Female 01/13/2020 8:00 PM CDT Sexual Orientation Straight 01/13/2020 8: 00 PM CDT documented as of this encounter Plan of Treatment Not on file documented as of this encounter Procedures Procedure Name Priority Date/Time Associated Diagnosis Comments LIPID PANEL Routine 12/20/2019 6:12 PM CDT documented in this encounter Results * (ABNORMAL) Lipid panel (12/20/2019 6:12 PM CDT) SCRIBED Cholesterol, Total 123 0 - 200 EXTERNAL LAB SCRIBED HDL 27(A) 40 - 100 EXTERNAL LAB SCRIBED LDL 57 0 - 100 EXTERNAL LAB SCRIBED Triglycerides 290(A) 0 - 150 EXTERNAL LAB Blood specimen (specimen) us Historical Provider LAB BLOOD ORDERABLES Edit ed Result - Final EXTERNAL LAB documented in this encounter Visit Diagnoses Not on filedocumented in this encounter Care Teams Oil Field Laborer Relationship Specialty [place] [address] [place] [id number] PCP - General Physician Broth Setter 10/20/19 documented as of this encounter
--- OUTSIDE RECORDS SUMMARY | 2024-09-18 09:40 | XMS_ITS | Referral Summary ---
Author Organization [place] [id number] [facility] Address [facility] [place] [address] Care Team Providers Care Manager Strategic Development Name Role Phone Naya Arriola Primary Care Provider [phone] Allergies Active Allergy Reactions Criticality Noted Date [...] 1 tablet (88 mcg total) by mouth contract administration manager before breakfast Active linaCLOtide (LINZESS) 290 mcg [...] a associated with type 2 diabetes mellitus ([facility]) 04/18/2020 QT prolongation 04/18/2020 LISSETTE (obstructive sleep apnea) 01/02/2020 SLE (systemic lupus erythematosus) ([facility]) Morbid obesity with BMI of 40.0-44.9, adult 12/07 History of tobacco abuse 01/02/2020 Coronary artery disease invo lving teller coronary artery of teller heart without angina pectoris 01/02/2020 Social History Tobacco Use Types Packs/Day Years [...] on file Legal Sex Female 12:28 PM ENTERPRISE 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 Gender Identity Female 01/13/2020 8:00 PM CDT Sexual Orientation Straight 01/13/2020 8: 00 PM CDT Last Filed Vital Signs Vital Sign Reading Time Taken Comments Blood Pressure 114/74 08/19/2023 1:45 PM ENTERPRISE 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 Pulse 95 08/19/2023 1:45 PM ENTERPRISE 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 Temperature - - Respiratory Rate - - Oxygen Saturation 97% 08/19/2023 1:45 PM ENTERPRISE 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 Inhaled Oxygen Concentration - - Weight 107.5 kg (236 lb 14.4 oz) 08/19/2023 1:45 PM ENTERPRISE 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 Height 160 cm (5' 3 ) 08/19/2023 1:45 PM ENTERPRISE 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 Body Mass Index 41.96 08/19/2023 1:45 PM ENTERPRISE 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 Plan of Treatment Not on file Procedures Procedure Name Priority Date/Time Associated Diagnosis Comments POCT LIPID PANEL Routine 08/19/2023 2:00 PM ENTERPRISE 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 Mixed 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 (CMS/HCC) (HCC) from Last 3 Months or Most Recently Relevant to Health Maintenance Results * POCT lipid panel (08/19/2023 2:00 PM ENTERPRISE 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) Cholesterol, POC 162 mg/dL Comment:GLU = 87 HDL, POC 36 mg/dL Triglycerides, POC 280 mg/dL LDL Cholesterol POC 70 mg/dL Chol/HDL Ratio, POC 1.9 Non-HDL Cholesterol, POC 126 mg/dL Cholesterol Total, POC 162 mg/dL Capillary blood 08/19/2023 2 :00 PM ENTERPRISE 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 Kike Alexandre MD POINT OF CARE TEST ORDER SOFY Final Result from Last 3 Months or Most Recently Relevant to Health Maintenance Insurance Formerly named [facility] [address] CHOICE PLUS [facility] HMO/PPO Address: [facility] [address] [place] [address] [facility] CHOICE PLUS [facility] HMO/PPO Address: [address] [address] [place] [address] [facility] CHOICE PLUS [facility] HMO/PPO Address: [address] [address] [place] [address] Care Teams Manager Strategic Development Relationship Specialty [place] [address] [place] [address] PCP - General Physician Inspector Casing 10/20/19
--- OUTSIDE RECORDS SUMMARY | 2024-09-18 09:40 | XMS_ITS | Encounter Summary ---
Author Organization [facility] Address [address] [place] [address] Care Team Providers Care Gathering Machine Feeder Name Role Phone Naya Arriola Primary Care Provider [phone] Reason for Visit * Reason Comments Follow-up 4 mo follow up on CA D, HTN, dyslipidemia, LISSETTE Encounter Details Date Type Department Care Team (Late st Contact Info) Description 04/18/2020 1:45 PM CDT Office Visit [facility] Cardiology [address] [place] [address] Kike Alexandre MD [address] [place] [address] Coronary artery disease of klam[place] artery of [place] heart with stable angina pectoris (CMS/HCC) (Primary Dx); QT prolongation; Hypertension associated with diabetes (CMS/HCC); Dyslipidemia associated with type 2 diabetes mellitus (CMS/HCC); LISSETTE (obstructive sleep apnea); Systemic lupus erythematosus, unspecified SLE type, unspecified organ involvement status (CMS/HCC); Morbid obesity with BMI of 45.0-49.9, adult [...] on file Legal Sex Female 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 Gender Identity Female 01/13/2020 8:00 PM CDT Sexual Orientation Straight 01/13/2020 8: 00 PM CDT documented as of this encounter Last Filed Vital Signs Vital Sign Reading Time Taken Comments Blood Pressure 108/72 04/18/2020 1:49 PM CDT Pulse 99 04/18/2020 1:49 PM CDT Temperature - - Respiratory Rate - - Oxygen Saturation 97% 04/18/2020 1:49 PM CDT Inhaled Oxygen Concentration - - Weight 119.7 kg (264 lb) 04/18/2020 1:49 PM CDT Height 160 cm (5' 3 ) 04/18/2020 1:49 PM CDT Body Mass Index 46.77 04/18/2020 1:49 PM CDT documented in this encounter Ordered Prescriptions Prescription Sig Dispense Quantity Refills Last Filled Start Date End Date isosorbide mononitrate ER (IMDUR) 30 mg 24 hr tablet Take 1 tablet (30 mg total) by mouth daily 90 tablet 3 04/18/2020 08/24/2020 documented in this encounter Progress Notes * Kike Alexandre MD - 04/18/2020 1:45 PM CDT [facility] DATE OF VISIT: 04/18/2020 CHIEF COMPLAINT Chief Complaint Patient presents with ??? Follow-up 4 mo follow up on CAD, HTN, dyslipidemia, LISSETTE ASSESSMENT Diagnoses and all orders for this visit: Coronary artery disease of [place] artery of [place] heart with stable angina pectoris (CMS/HCC) (Primary) QT prolongation Hypertension associated with diabetes (CMS/HCC) Dyslipidemia associated with type 2 diabetes mellitus (CMS/HCC) LISSETTE (obstructive sleep apnea) Systemic lupus erythematosus, unspecified SLE type, unspecified organ involvement status (CMS/HCC) Morbid obesity with BMI of 45.0-49.9, adult (CMS/HCC) History of tobacco abuse Other orders - isosorbide mononitrate ER (IMDUR) 30 mg 24 hr tablet; Take 1 tablet (30 mg total) by mouth daily PLAN/RECOMMENDATIONS 1. Anginal symptoms improved with long-acting nitrate therapy. Continue isosorbide mononitrate 15 mg daily. -Aggressive CAD risk modification counseling performed. Continue [...] low-sodium diet. 3. Lipids personally reviewed from 12/23/2019 LDL 57, well controlled. Continue statin therapy and lifestyle modification. Goal LDL less than 70. Tolerating atorvastatin 40 mg at bedtime. 4. DM managed by PCP 5. Follow up with sleep study and tx for LISSETTE as I suspect many of her sxs are contributed by untreated LISSETTE. 6. Lifestyle modification counseling performed. Weight loss, exercise, reduction in caloric intake. 7. Coronavirus pandemic precaution counseling. Patient higher risk for complications 12 lead EKG today personally reviewed SR QT prolongation 528msec unexplained, labs/electrolytes normal potentially hydroxyzine but she will stop for now. -no clear explanation as to why her QT would be prolonged. No prior documentation of QT prolongation available at this time. -Repeat 12 lead EKG in one month. Counseled on risks with VT/VF with QT prolongation no sudden family history but father though of [place] age 48 not sure. Mother 63 in hospital. Continue Metoprolol 50mg BID. -further recommendation to follow after review repeat EKG. All questions answered to her satisfaction. Patient verbalized understanding of my recommendations. Over 50% of this visit counseling CAD, HTN, lipids, medications, lifestyle modification. Follow up in the office in 6 months or sooner as needed. Thank you for allowing me the privilege of participating in the care this very pleasant patient. Please do not hesitate to contact me with any additional questions or concerns. HPI Lucretia Rodriguez is a 54 y.o. female with a PMHx of CAD status post myocardial infarction 2010 status post stent to proximal LAD, hypertension, type 2 diabetes mellitus, dyslipidemia, lupus erythematosus, morbid obesity, obstructive sleep apnea untreated, history of tobacco abuse seen in follow-up. Left heart catheterization [facility] December 2019: patent previously placed stent proximal LAD 10% InStent restenoses, 60-70% mid circumflex stenosis with post stenotic aneurysmal dilatation, 50-70% stenosis mid RCA very large caliber vessel. 01/02/20 This was a telemedicine visit with Lucretia Rodriguez alone which took place via Real-time audio/video communication/Doximity. During the visit, I was located [facility] office and the patient was located [...] responsible for any applicable copayments. -Admitted to [facility] with CP concerning for angina negative troponins underwent LHC with mod disease. Feeling ok, better, no [...] but has not peaked and is reducing. MEDICAL HISTORY Past Medical History: Diagnosis Date ??? Anxiety ??? Arthritis ??? Autoimmune disease (CMS/HCC) 2005 ??? Depression 2005 ??? Diabetes mellitus (CMS/HCC) ??? Gall stones ??? Heart attack (CMS/HCC) ??? Heart disease 2010 ??? Hyperlipidemia ??? Hypertension ??? Neuromuscular disorder (CMS/HCC) 2005 ??? Sleep apnea ??? Thyroid disease Social History Tobacco Use ??? Smoking status: Former Smoker Last attempt to quit: 06/2019 Years since quittin.8 ??? Smokeless tobacco: Never Used Substance Use [...] mcg tablet hydroCHLOROthiazide (HYDRODIURIL) 25 mg tablet hydrOXYzine (ATARAX) 25 mg tablet isosorbide mononitrate ER (IMDUR) [...] pantoprazole DR (PROTONIX) 40 mg EC tablet isosorbide mononitrate ER (IMDUR) 30 mg 24 hr tablet citalopram (CeleXA) 40 mg tablet traMADoL (ULTRAM) 50 mg tablet ALLERGIES Allergies Allergen Reactions ??? [...] for environmental allergies. PHYSICAL EXAM Vitals BP 108/72 (BP Location: Left arm, Patient Position: Sitting) Pulse 99 Ht 160 cm (5' 3 ) Wt 119.7 kg (264 lb) SpO2 97% BMI 46.77 kg/m?? Weight: 119.7 kg (264 lb) Height: 160 cm (5' 3 ) Body mass index is 46.77 kg/m??. On video today patient appeared rested, no apparent distress, breathing comfortably, speaking in full sentences. She was alert and oriented x3, pleasant and cooperative. No dyspnea or tachypnea. Headatraumatic and normocephalic. Moving eyes normally, external inspection of nose normal. No facial dissymmetry. Mood calm and appropriate. LABS AND OTHER DIAGNOSTIC TESTS [facility] records, coronary angiography, EKG, blood work personally reviewed. LDL 57 12/23/19 Personally reviewed EKG, electronic medical record, and bloodwork/lipids. Latoya Alexandre MD, [facility] This note is dictated and transcribed using [employer] Fluency Direct Software. Project Structural Engineer variancesmay occur. Despite proofreading, typographical errors may [...] normal and behavior is normal. Judgment normal. documented in this encounter Miscellaneous Notes * Addendum Note - Melinda Zuniga MA - 04/18/2020 1:45 PM CDTAddended by: MELINDA ZUNIGA on: 04/27/2020 08:18 AM Modules accepted: Orders documented in this encounter Plan of Treatment Not on file documented as of this encounter Procedures Procedure Name Priority Date/Time Associated Diagnosis Comments ECG 12-LEAD Routine 04/18/2020 QT prolongation documented in this encounter Results * ECG 12 lead (04/18/2020) Kike Alexandre MD ECG ORDERABLES Final Re sult documented in this encounter Visit Diagnoses Diagnosis Coronary artery disease of [place] artery of [place] heart with stable angina pectoris (HCC)- Primary QT prolongation Hypertension associated with diabetes (HCC) Unspecified essential hypertension Dyslipidemia associated with type 2 diabetes mellitus (HCC) LISSETTE (obstructive sleep apnea) Obstructive sleep apnea (adult) (pediatric) Systemic lupus erythematosus, unspecified SLE type, unspecified organ involvement status (HCC) Morbid obesity with BMI of 45.0-49.9, adult (HCC) History of tobacco abuse documented in this encounter Discontinued Medications Medication Sig Discontinue Reason Start Date End Da te citalopram (CeleXA) 40 mg tablet Take 40 mg by mouth daily Therapy completed 04/18/2020 traMADoL (ULTRAM) 50 mg tablet Take 50 mg by mouth every 6 (six) hours Therapy completed 04/18/2020 isosorbide mononitrate ER (IMDUR) 30 mg 24 hr tablet Take 0.5 tablets (15 mg total) by mouth every morning Reorder 04/09/2020 04/18/2020 documented as of this encounter Care Teams Gathering Machine Feeder Relationship Specialty Start Date End Date Naya Arriola PA [facility] [place] [address] PCP - General Physician Advertising Material Distributor 10/20/19 documented as of this encounter
--- OUTSIDE RECORDS SUMMARY | 2024-09-18 09:40 | XMS_ITS | Encounter Summary ---
Author Organization [facility], formerly [facility] Steps of [facility] Address [address] [place] [address] Phone Care Team Providers Care Global Sales Director Name Role Phone Naya Arriola Primary Care Provider [phone] Reason for Referral * Diagnostic Imaging (Routine) - Closed Specialty Diagnoses / Procedures Referred By Contac t Referred To Contact Diagnoses Positive SONJA (antinuclear antibody) Arthralgia of both hands Procedures XR Hips Bilateral 3 or 4 Views W Pelvis XR Hip Left 4 or More Views Osiris Sue NP Phone: tel: fax: [facility] Referral ID Status Reason Start Date Expiration Date Visits Re quested Visits Authorized [id number] Closed 01/17/2020 07/28/2021 1 1 * Diagnostic Imaging (Routine) - Closed Specialty Diagnoses / Procedures Referred By Contac t Referred To Contact Diagnoses Positive SONJA (antinuclear antibody) Arthralgia of both hands Procedures XR Spine Lumbar 4 or More Views Osiris Sue NP Phone: tel: fax: [facility] Referral ID Status Reason Start Date Expiration Date Visits Re quested Visits Authorized [id number] Closed 01/17/2020 07/28/2021 1 1 * Diagnostic Imaging (Routine) - Closed Specialty Diagnoses / Procedures Referred By Contac t Referred To Contact Diagnoses Positive SONJA (antinuclear antibody) Arthralgia of both hands Procedures XR Hand Right 3 or More Views Osiris Sue NP Phone: tel: fax: [facility] Referral ID Status Reason Start Date Expiration Date Visits Re quested Visits Authorized [id number] Closed 01/17/2020 07/28/2021 1 1 * Diagnostic Imaging (Routine) - Closed Specialty Diagnoses / Procedures Referred By Ernesto barrios Referred To Contact Diagnoses Positive SONJA (antinuclear antibody) Arthralgia of both hands Procedures XR Hand Left 3 or More Views Osiris Sue NP Phone: tel: fax: [facility] Referral ID Status Reason Start Date Expiration Date Visits Re quested Visits Authorized [id number] Closed 01/17/2020 07/28/2021 1 1 Reason for Visit * Consultation (Routine) - Canceled Specialty Diagnoses / Procedures Referred By Ernesto barrios Referred To Contact Rheumatology Diagnoses Systemic lupus erythematosus, unspecified SLE type, unspecified organ involvement status ([facility]) Naya Arriola PA [facility] [place] [address] Phone: tel: fax: [facility] (All Locations) Referral ID Status Reason Start Date Expiration Date Visits Requested Visits Authorized [id number] Canceled Specialty Services Required 10/20/2019 04/30/2021 99 [phone] Encounter Details Date Type Department Care Team (Late st Contact Info) Description 01/17/2020 2:00 PM CDT Telemedicine [facility] Rheumatology [facility] 5th [place] [address] [place] [address] Osiris Sue NP [address] [place] [address] Positive SONJA (antinuclear antibody) (Primary Dx); Arthralgia of both hands Social History Tobacco Use Types Packs/Day Years Used Date Smoking Tobacco: Former Cigarettes Q uit: 06/2019 Smokeless Tobacco: Never Alcohol Use Standard Drinks/Week Comments Not Currently 0 (1 standard drink = 0.6 oz pur e alcohol) Comments Unknown Sex and Gender Information Value Date Recorded Sex Assigned at Not on file Legal 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 ?THIS VISIT WAS PERFORMED USING TELEHEALTH TECHNOLOGIES DUE TO COVID-19 CRISIS. This was a telemedicine visit with the patient which took place via telephone. During the visit, I was located in my home office which is a private and uninterruptable location and the patient was located in their home. The session started at 1400 and ended at 1440. The patient has been informed that the [...] billed and/or responsible for any applicable copayments. INFORMED CONSENT FOR TELEHEALTH CONSULTATION PURPOSE: This form obtains your consent to participate in a telemedicine consultation, also known as ???Telehealth?? services. Telehealth is the delivery of health care services using two-way video communications and/or the electronic exchange of information. Since this is different than in-personhealth care services you may typically receive, it is important for you to understand and be aware of and comfortable with the benefits and possible risks. For your Telehealth visit, a [facility] or [facility] provider will communicate using electronic and video transmissions and will have access to your medical records while you are being treated at home. This will enable your provider to determine an appropriate treatment plan for your condition. Participating in this Telehealth program will give you access to your provider without having to travel to your provider's office, for inpatient/outpatient care. Some possible risks associated with the use of Telehealth services include, but may not be limited to: - Instances in which the electronic information may not be sufficient for appropriate medical decision making by the provider. - Equipment issues, which could cause delays in your medical evaluation and treatment. - Security measures could fail, possibly exposing your privacy and your personal medical information. - Finally, in some cases, Telehealth services may not be as complete as in- person services, and if your provider believes an in-person visit is necessary, he or she may recommend that you schedule aninperson visit. It is important that you understand and agree to the following statements: 1. I understand that engaging in a telemedicine visit with my health care provider at [facility] is optional. I have the right to discontinue this service at any time.I further understand that in place of telehealth services, I may request a [id number] visit with my health care provider. 2. I have been informed and understand the alternatives to the Telehealth services that are available to me, and give my consent to proceed with Telehealth services. 3. I understand that my provider will be at a different location from me. I understand that a telemedicine visit will not be the same as a direct patient/health care provider visit due to the fact that I will not be in the same room as the consulting health care provider and the provider will not be able to physically examine me. 4. I understand that the video portion of the telehealth service will not be recorded. 5. I understand that others may also be present during the visit other than my health care providerand consulting health care provider(s) in order to operate the video equipment and/or facilitate the Telehealth consultation. I further understand that I will be informed of their presence in the visit and thus will have the right to request the following: (1) omit specific details of my medical history/physical examination that are personally sensitive to me; (2) ask other personnel to leave the telemedicine examination room; and/or (3) end the visit at any time. 6. I understand that I have the right to request a copy of this informed consent and upon request it will be provided to me. 7. I understand there is a possible risk of an incomplete or ineffective visit due to technologicalissues, and that if any of the technological issues occur, the visit may end. The technological issues include but are not limited to: a) failure, interruption or disconnection of the audio/video connection; b) a picture that is not clear enough to meet the needs of the visit; and/or c) a minor risk of access to the visit through the interactive connection by electronic tampering. 8. I understand that my provider or I can stop the telemedicine visit if the telehealth connectionsare not adequate for the situation. ACKNOWLEDGEMENT & CONSENT: I have read and understand this consent. I have been given an opportunity to ask questions and all of my questions have been answered to my satisfaction. The risks, benefits, and alternatives of the Telehealth visit have been explained to me and I hereby consent to participate in Telehealth services as described in this document during this course of treatment. Larisa Rodriguez 01/17/2020 Signature of Patient or Person Authorized to Consent Date Relationship to Patient The patient gave verbal consent via phone at the beginning of their telehealth visit. Osiris Sue, MSN, SKILLS AUDITOR, AGPCNP-C [facility] Division of Rheumatology SUBJECTIVE Chief Complaint: My doctor told me I had lupus History of Present Illness Lucretia Rodriguez is a 54 y.o. female with PMHx significant for MS, hypothyroidism, osteoarthritis, carpal tunnel surgery right hand, diabetes mellitus type 2, [place], HLD, irritable bowel syndrome left knee replacement, right ankle osteoarthritis post childhood injury, and positive SONJA is referred for the evaluation of possible SLE. The patient reports that earlier this year she went to her primary care provider's office with complaints of bilateral carpometacarpal joint pain. She reports morning stiffness of 1-2 hours and stiffness later in the day with activity. She denies pain and stiffness to any other joints in her bilateral hands. She reports that her right hip CMC joint is more painful than her left. She also reports hip pain over the greater trochanteric region bilaterally that worsens with activity. She reports that her worst pain currently is her low back pain which worsens with activity. She reports that she has chronic fatigue along with insomnia. She was given a CPAP in 2014 but she stopped using this because she did not like the way that if it her face. She reports that she has dry mouth but no dry eyes. She reports that she has had painful sores in her mouth that she attributedto eating spicy foods in the past. Her PCP obtained labs 10/2019: SONJA + (no titer) DsDNA + 13 DRAIN CLEANER PLUMBER, Tinoco, SCL-70, SSA, SSB, Chromatin, Yandy, Centromere, CBC, CMP negative Review of Systems All other ROS negative except as noted in HPI. (no) Weight Loss, (yes; chronic insomnia) Fatigue, (no) Fever, (no) Hair Loss, (yes; intermittently) Headache, (no) h/o Scleritis/Episcleritis, (no) h/o Iritis/Uveitis, (no; h/o oral sores that are painful) Oral/Nasal Ulcers, (no) Epistaxis, (no) Dry Eyes, (yes) Dry Mouth, (no) Rash, (no) Photosensitivity, (no) Skin Ulcers, (no) Purpura/Petechiae, (no) Skin Tightening, (no) Pleurisy, (no) Pericarditis/Pericardial effusion, (no) Acid Reflux, (see above) Joint Pain, (see above) Morning stiffness,(no) Enthesitis, (no) Dactylitis, (yes; see above) Back Pain, (no) Raynaud's, (no) Hematuria, (no) Frothy urine, (no) DVT/PE, (no) miscarriages (>T2-T3) PHx: (no) Asthma, (no) Chronic Sinusitis, (no) Psoriasis, (no; IBS) Colitis, (no) Urethritis Routine Screenings Mammogram: summer- Colonoscopy: 2014; rescheduled for later this year Immunizations: yes Past Medical History Past Medical History: Diagnosis Date ??? Anxiety ??? Arthritis ??? Diabetes mellitus (CMS/HCC) ??? Gall stones ??? Heart attack (CMS/HCC) ??? Hyperlipidemia ??? Hypertension ??? Sleep apnea ??? Thyroid disease Past Social History Past Surgical History: Procedure Laterality Date ??? CARDIAC STENT PLACEMENT ??? CHOLECYSTECTOMY ??? LAPAROSCOPIC GASTRIC BANDING ??? TONSILLECTOMY Family History Family History Problem Relation Age of Onset ??? Heart attack Mother ??? Heart attack Father Social History Social History Tobacco Use ??? Smoking status: Former Smoker Last attempt to quit: 06/2019 Years since quittin.6 ??? Smokeless tobacco: Never Used Substance Use Topics ??? Alcohol use: Not Currently ??? Drug use: Not on file MEDICATIONS Current Outpatient Medications Medication Sig Dispense Refill ??? amitriptyline (ELAVIL) 75 mg tablet Take by mouth nightly ??? aspirin 81 mg enteric coated tablet Take 81 mg by mouth daily ??? atorvastatin (LIPITOR) 40 mg tablet Take 40 mg by mouth daily ??? cholecalciferol (VITAMIN D-3) 5,000 unit capsule Take 5,000 Units by mouth daily ??? citalopram (CeleXA) 40 mg tablet Take 40 mg by mouth daily ??? cyanocobalamin (Vitamin B-12) 1,000 mcg tablet Take 1,000 mcg by mouth daily ??? hydroCHLOROthiazide (HYDRODIURIL) 25 mg tablet Take 25 mg by mouth daily ??? hydrOXYzine (ATARAX) 25 mg tablet Take 25 mg by mouth 3 (three) times a day as needed for itching ??? isosorbide mononitrate ER (IMDUR) 30 mg 24 hr tablet Take 15 mg by mouth daily ??? levothyroxine (SYNTHROID) 88 mcg tablet Take 88 mcg by mouth acid wash operator before breakfast ??? linaCLOtide (LINZESS) 290 mcg capsule Take 290 mcg by mouth daily ??? liraglutide (VICTOZA) 0.6 mg/0.1 mL (18 mg/3 mL) injection Inject 1.2 mg under the skin daily Indications: type 2 diabetes mellitus ??? lisinopriL (PRINIVIL,ZESTRIL) 20 mg tablet Take 20 mg by mouth daily ??? metFORMIN (GLUMETZA) 500 mg 24 hr tablet Take 500 mg by mouth daily with breakfast ??? metoprolol tartrate (LOPRESSOR) 50 mg immediate release tablet Take 50 mg by mouth 2 (two) times a day ??? nitroglycerin (NITROSTAT) 0.[address] 0.4 mg under the tongue every 5 (five) minutesas needed for chest pain ??? pantoprazole DR (PROTONIX) 40 mg EC tablet Take 40 mg by mouth daily ??? traMADoL (ULTRAM) 50 mg tablet Take 50 mg by mouth every 6 (six) hours No current facility-administered medications for this visit. ALLERGIES Allergies Allergen Reactions ??? Sulfa (Sulfonamide Antibiotics) Anaphylaxis ??? Latex Rash Labs Results for orders placed or performed in visit on 01/03/20 Lipid panel Result Value Ref Range SCRIBED Cholesterol, Total 123 0 - 200 SCRIBED HDL 27 (A) 40 - 100 SCRIBED LDL 57 0 - 100 SCRIBED Triglycerides 290 (A) 0 - 150 No results found for: WBC, HGB, HCT, MCV, PLT No results found for: AST, ALT, ALKPHOS, CREATININE No results found for: SEDRATE No results found for: CRP No results found for: SEDRATE, RF, SONJA, ANATITER, ANAPATTRN1, ANATITERADD, ANADIRECT, CRP, DSDNA, DSDNAAB No results found for: ALDOLASE, ELIZABETH, SCL70, C3, C4, CH50, HLAB27, CKTOTAL, CKMM Imaging None in records IMPRESSIONS/RECOMMENDATIONS Lucretia Rodriguez is a 54 y.o. female with PMHx significant for MS, hypothyroidism, osteoarthritis, carpal tunnel surgery right hand, diabetes mellitus type 2, [place], HLD, irritable bowel syndrome left knee replacement, right ankle osteoarthritis post childhood injury, and positive SONJA is referred for the evaluation of possible SLE. # positive SONJA - will recheck SONJA and draw C3, C4, ESR, CRP, CK, aldolase, urine pro/creat, UA with reflex to assess for SLE; symptoms are non-concerning for SLE at this time - reassured patient that a positive SONJA does not mean that she has SLE # CMC pain - pt's pain is consistent with OA; will obtain imaging to assess # low back pain - pt's pain sounds mechanical in nature; will obtain lumbar x-ray to assess # trochanteric pain syndrome - will obtain bilateral hip x-rays to rule out hip arthritis; however, pain seems to be consistent with trochanteric pain syndrome - referral to PT post obtaining x-rays # insomnia - patient may have a component of chronic pain exacerbated by insomnia - discussed risks of untreated sleep apnea; will refer to [facility] due to being out of care and without a CPAP for years The patient reports no further questions or concerns at this time. Will schedule pt for follow up in person in 2-3 months. I personally spent 40 minutes in the care and consultation of this patient via telehealth. Osiris Sue, MSN, SKILLS AUDITOR, AGPCNP-C This visit was dictated by Osiris Sue using [employer] Direct software. Advertising Teacher variances may occur. * Ayla Srivastava - 01/17/2020 2:00 PM CDT Scheduled documented in this encounter Miscellaneous Notes * Addendum Note - Ingrid Rea - 01/17/2020 2:00 PM CDTAddended by: INGRID REA on: 02/17/2020 01:26 PM Modules accepted: Orders documented in this encounter Plan of Treatment Not on file documented as of this encounter Results * XR Hips Bilateral 3 or 4 Views W Pelvis (02/17/2020 2:15 PM CDT) Anatomical Region Laterality Modality Lower Extremities, Hip, Pelvis Bilateral C omputed Radiography 02/17/2020 2:24 PM CDT Impressions 02/17/2020 2:24 PM CDT 1. Multilevel lumbar spine degenerative disc disease, severe from L3 through S1. 2. Mild bilateral hip osteoarthritis. 3. Bilateral thumb osteoarthritis. Electronically signed by: Pawan Corley M.D. Narrative 02/17/2020 2:24 PM CDT EXAMINATION: 1. Lumbar spine 4 or more views. 2. Left hand 3 or more views. 3. Hips bilateral 3 or 4 views. 4. Right hand 3 or more views. HISTORY: ??Inflammatory arthritis with bilateral hand pain, hip pain and low back pain FINDINGS: 4 views of the lumbar spine are submitted for interpretation without comparison. The alignment of the lumbar spine is anatomic. There is multilevel lumbar spine degenerative disc disease, severe from L3 through S1. There is no compression fracture. On the oblique radiographs, there is facet osteoarthritis in the lumbar spine. A gastric band is present. 3 views of the left hand are submitted for interpretation without comparison. There is moderate left thumb interphalangeal joint and carpal metacarpal joint osteoarthritis. No fracture is seen. No erosions are seen. 3 views of the right hand are submitted for interpretation without comparison. There is severe basal joint thumb and moderate interphalangeal joint thumb osteoarthritis. No erosions are seen. There is no fracture. 3 views of the hips and pelvis are submitted for interpretation without comparison. There is mild bilateral hip osteoarthritis. There is no fracture. Right gluteal injection granuloma is present. Procedure Note Pawan Corley MD - 02/17/2020 EXAMINATION: 1. Lumbar spine 4 or more views. 2. Left hand 3 or more views. 3. Hips bilateral 3 or 4 views. 4. Right hand 3 or more views. HISTORY: Inflammatory arthritis with bilateral hand pain, hip pain and low back pain FINDINGS: 4 views of the lumbar spine are submitted for interpretation without comparison. The alignment of the lumbar spine is anatomic. There is multilevel lumbar spine degenerative disc disease, severe from L3 through S1. There is no compression fracture. On the oblique radiographs, there is facet osteoarthritis in the lumbar spine. A gastric band is present. 3 views of the left hand are submitted for interpretation without comparison. There is moderate left thumb interphalangeal joint and carpal metacarpal joint osteoarthritis. No fracture is seen. No erosions are seen. 3 views of the right hand are submitted for interpretation without comparison. There is severe basal joint thumb and moderate interphalangeal joint thumb osteoarthritis. No erosions are seen. There is no fracture. 3 views of the hips and pelvis are submitted for interpretation without comparison. There is mild bilateral hip osteoarthritis. There is no fracture. Right gluteal injection granuloma is present. IMPRESSION: 1. Multilevel lumbar spine degenerative disc disease, severe from L3 through S1. 2. Mild bilateral hip osteoarthritis. 3. Bilateral thumb osteoarthritis. Electronically signed by: Pawan Corley M.D. Osiris Sue NP IMG XR PROCEDURES Final R esult * XR Spine Lumbar 4 or More Views (02/17/2020 2:15 PM CDT) Anatomical Region Laterality Modality Spine N/A Computed Radiogr aphy 02/17/2020 2:24 PM CDT Impressions 02/17/2020 2:24 PM CDT 1. Multilevel lumbar spine degenerative disc disease, severe from L3 through S1. 2. Mild bilateral hip osteoarthritis. 3. Bilateral thumb osteoarthritis. Electronically signed by: Pawan Corley M.D. Narrative 02/17/2020 2:24 PM CDT EXAMINATION: 1. Lumbar spine 4 or more views. 2. Left hand 3 or more views. 3. Hips bilateral 3 or 4 views. 4. Right hand 3 or more views. HISTORY: ??Inflammatory arthritis with bilateral hand pain, hip pain and low back pain FINDINGS: 4 views of the lumbar spine are submitted for interpretation without comparison. The alignment of the lumbar spine is anatomic. There is multilevel lumbar spine degenerative disc disease, severe from L3 through S1. There is no compression fracture. On the oblique radiographs, there is facet osteoarthritis in the lumbar spine. A gastric band is present. 3 views of the left hand are submitted for interpretation without comparison. There is moderate left thumb interphalangeal joint and carpal metacarpal joint osteoarthritis. No fracture is seen. No erosions are seen. 3 views of the right hand are submitted for interpretation without comparison. There is severe basal joint thumb and moderate interphalangeal joint thumb osteoarthritis. No erosions are seen. There is no fracture. 3 views of the hips and pelvis are submitted for interpretation without comparison. There is mild bilateral hip osteoarthritis. There is no fracture. Right gluteal injection granuloma is present. Procedure Note Pawan Corley MD - 02/17/2020 EXAMINATION: 1. Lumbar spine 4 or more views. 2. Left hand 3 or more views. 3. Hips bilateral 3 or 4 views. 4. Right hand 3 or more views. HISTORY: Inflammatory arthritis with bilateral hand pain, hip pain and low back pain FINDINGS: 4 views of the lumbar spine are submitted for interpretation without comparison. The alignment of the lumbar spine is anatomic. There is multilevel lumbar spine degenerative disc disease, severe from L3 through S1. There is no compression fracture. On the oblique radiographs, there is facet osteoarthritis in the lumbar spine. A gastric band is present. 3 views of the left hand are submitted for interpretation without comparison. There is moderate left thumb interphalangeal joint and carpal metacarpal joint osteoarthritis. No fracture is seen. No erosions are seen. 3 views of the right hand are submitted for interpretation without comparison. There is severe basal joint thumb and moderate interphalangeal joint thumb osteoarthritis. No erosions are seen. There is no fracture. 3 views of the hips and pelvis are submitted for interpretation without comparison. There is mild bilateral hip osteoarthritis. There is no fracture. Right gluteal injection granuloma is present. IMPRESSION: 1. Multilevel lumbar spine degenerative disc disease, severe from L3 through S1. 2. Mild bilateral hip osteoarthritis. 3. Bilateral thumb osteoarthritis. Electronically signed by: Pawan Corley M.D. us Osiris Pichardo Louismalika BOAT WORKER IMG XR PROCEDURES Final R esult * XR Hand Right 3 or More Views (02/17/2020 2:15 PM CDT) Anatomical Region Laterality Modality Upper Extremities, Hand Right Computed Radiography 02/17/2020 2:24 PM CDT Impressions 02/17/2020 2:24 PM CDT 1. Multilevel lumbar spine degenerative disc disease, severe from L3 through S1. 2. Mild bilateral hip osteoarthritis. 3. Bilateral thumb osteoarthritis. Electronically signed by: Pawan Corley M.D. Narrative 02/17/2020 2:24 PM CDT EXAMINATION: 1. Lumbar spine 4 or more views. 2. Left hand 3 or more views. 3. Hips bilateral 3 or 4 views. 4. Right hand 3 or more views. HISTORY: ??Inflammatory arthritis with bilateral hand pain, hip pain and low back pain FINDINGS: 4 views of the lumbar spine are submitted for interpretation without comparison. The alignment of the lumbar spine is anatomic. There is multilevel lumbar spine degenerative disc disease, severe from L3 through S1. There is no compression fracture. On the oblique radiographs, there is facet osteoarthritis in the lumbar spine. A gastric band is present. 3 views of the left hand are submitted for interpretation without comparison. There is moderate left thumb interphalangeal joint and carpal metacarpal joint osteoarthritis. No fracture is seen. No erosions are seen. 3 views of the right hand are submitted for interpretation without comparison. There is severe basal joint thumb and moderate interphalangeal joint thumb osteoarthritis. No erosions are seen. There is no fracture. 3 views of the hips and pelvis are submitted for interpretation without comparison. There is mild bilateral hip osteoarthritis. There is no fracture. Right gluteal injection granuloma is present. Procedure Note Pawan Corley MD - 02/17/2020 EXAMINATION: 1. Lumbar spine 4 or more views. 2. Left hand 3 or more views. 3. Hips bilateral 3 or 4 views. 4. Right hand 3 or more views. HISTORY: Inflammatory arthritis with bilateral hand pain, hip pain and low back pain FINDINGS: 4 views of the lumbar spine are submitted for interpretation without comparison. The alignment of the lumbar spine is anatomic. There is multilevel lumbar spine degenerative disc disease, severe from L3 through S1. There is no compression fracture. On the oblique radiographs, there is facet osteoarthritis in the lumbar spine. A gastric band is present. 3 views of the left hand are submitted for interpretation without comparison. There is moderate left thumb interphalangeal joint and carpal metacarpal joint osteoarthritis. No fracture is seen. No erosions are seen. 3 views of the right hand are submitted for interpretation without comparison. There is severe basal joint thumb and moderate interphalangeal joint thumb osteoarthritis. No erosions are seen. There is no fracture. 3 views of the hips and pelvis are submitted for interpretation without comparison. There is mild bilateral hip osteoarthritis. There is no fracture. Right gluteal injection granuloma is present. IMPRESSION: 1. Multilevel lumbar spine degenerative disc disease, severe from L3 through S1. 2. Mild bilateral hip osteoarthritis. 3. Bilateral thumb osteoarthritis. Electronically signed by: Pawan Corley M.D. Osiris Sue NP IMG XR PROCEDURES Final R esult * XR Hand Left 3 or More Views (02/17/2020 2:15 PM CDT) Anatomical Region Laterality Modality Upper Extremities, Hand Left Computed Radiography 02/17/2020 2:24 PM CDT Impressions 02/17/2020 2:24 PM CDT 1. Multilevel lumbar spine degenerative disc disease, severe from L3 through S1. 2. Mild bilateral hip osteoarthritis. 3. Bilateral thumb osteoarthritis. Electronically signed by: Pawan Corley M.D. Narrative 02/17/2020 2:24 PM CDT EXAMINATION: 1. Lumbar spine 4 or more views. 2. Left hand 3 or more views. 3. Hips bilateral 3 or 4 views. 4. Right hand 3 or more views. HISTORY: ??Inflammatory arthritis with bilateral hand pain, hip pain and low back pain FINDINGS: 4 views of the lumbar spine are submitted for interpretation without comparison. The alignment of the lumbar spine is anatomic. There is multilevel lumbar spine degenerative disc disease, severe from L3 through S1. There is no compression fracture. On the oblique radiographs, there is facet osteoarthritis in the lumbar spine. A gastric band is present. 3 views of the left hand are submitted for interpretation without comparison. There is moderate left thumb interphalangeal joint and carpal metacarpal joint osteoarthritis. No fracture is seen. No erosions are seen. 3 views of the right hand are submitted for interpretation without comparison. There is severe basal joint thumb and moderate interphalangeal joint thumb osteoarthritis. No erosions are seen. There is no fracture. 3 views of the hips and pelvis are submitted for interpretation without comparison. There is mild bilateral hip osteoarthritis. There is no fracture. Right gluteal injection granuloma is present. Procedure Note Pawan Corley MD - 02/17/2020 EXAMINATION: 1. Lumbar spine 4 or more views. 2. Left hand 3 or more views. 3. Hips bilateral 3 or 4 views. 4. Right hand 3 or more views. HISTORY: Inflammatory arthritis with bilateral hand pain, hip pain and low back pain FINDINGS: 4 views of the lumbar spine are submitted for interpretation without comparison. The alignment of the lumbar spine is anatomic. There is multilevel lumbar spine degenerative disc disease, severe from L3 through S1. There is no compression fracture. On the oblique radiographs, there is facet osteoarthritis in the lumbar spine. A gastric band is present. 3 views of the left hand are submitted for interpretation without comparison. There is moderate left thumb interphalangeal joint and carpal metacarpal joint osteoarthritis. No fracture is seen. No erosions are seen. 3 views of the right hand are submitted for interpretation without comparison. There is severe basal joint thumb and moderate interphalangeal joint thumb osteoarthritis. No erosions are seen. There is no fracture. 3 views of the hips and pelvis are submitted for interpretation without comparison. There is mild bilateral hip osteoarthritis. There is no fracture. Right gluteal injection granuloma is present. IMPRESSION: 1. Multilevel lumbar spine degenerative disc disease, severe from L3 through S1. 2. Mild bilateral hip osteoarthritis. 3. Bilateral thumb osteoarthritis. Electronically signed by: Pawan Corley M.D. Osiris Kylee Kellahan BOAT WORKER IMG XR PROCEDURES Final R esult * CBC with auto differential (02/17/2020 1:30 PM CDT) Pathologist [facility] [place] WBC 6.9 3.8 - 9.9 K/cumm [facility] Hgb 13.6 11.9 - 15.5 g/dL [facility] Hct 42.1 35.6 - 45.5 % [facility] Plt 247 150 - 400 K/cumm [facility] MPV 11.3 9.1 - 12.3 fL [facility] RBC 4.94 3.90 - 5.20 M/cumm [facility] MCV 85.2 81.3 - 96.4 fL [facility] MCH 27.5 27.1 - 33.3 pg [facility] MCHC 32.3 32.3 - 35.7 g/dL [facility] RDW CV 14.6 11.1 - 14.9 % [facility] RDW SD 44.9 35.7 - 48.1 fL [facility] NRBC abs 0.00 0.00 - 0.01 K/cumm [facility] Blood specimen (specimen) 02/17/2020 1:30 PM CDT 02/17/2020 1:54 PM CDT Osiris Sue BOAT WORKER LAB BLOOD ORDERABLES Shirin l Result Performing Organization Address [facility] Co de Phone Number [facility] [place] [address] * Creatine kinase (CK), total (02/17/2020 1:30 PM CDT) Pathologist [facility] [place] CK 145 30 - 200 Units/L [facility] Blood specimen (specimen) 02/17/2020 1:30 PM CDT 02/17/2020 1:54 PM CDT Osiris Sue BOAT WORKER LAB BLOOD ORDERABLES Shirin l Result [facility] [place] [address] * Comprehensive metabolic panel (02/17/2020 1:30 PM CDT) Sodium 139 135 - 145 mmol/L [facility] Potassium, pl 4.2 3.3 - 4.9 mmol/L [facility] Comment:Hemolyzed; Potassium value may be falsely elevated by as much as 0.3-0.5 mmol/L. Suggest redraw and reanalysis. Chloride 100 97 - 110 mmol/L [facility] CO2 28 22 - 32 mmol/L [facility] Anion gap 11 2 - 15 mmol/L [facility] BUN 13 8 - 25 mg/dL [facility] Creatinine 0.82 0.60 - 1.10 mg/dL [facility] Glucose 120 70 - 199 mg/dL [facility] Comment: Interpretive Data Fasting glucose >/= 126 mg/dl is diagnostic for diabetes. ?? Fasting is defined as no caloric intake for at least 8 hours. Fasting glucose between 100 mg/dl to 125 mg/dl is diagnostic of prediabetes. In a patient with classic symptoms of hyperglycemia or hyperglycemic crisis, a random glucose >/= 200 mg/dl is diagnostic for diabetes. In the absence of unequivocal hyperglycemia, results should be confirmed by repeat testing. The classification and Diagnosis of Diabetes Diabetes Care 2017;40 (Suppl. 1):S11. Current interpretive data was last revised 2017. Calcium 9.7 8.5 - 10.3 mg/dL [facility] Bilirubin, total 0.3 0.1 - 1.2 mg/dL [facility] Protein, pl 7.4 6.5 - 8.5 g/dL [facility] Albumin 4.4 3.5 - 5.0 g/dL [facility] Alk phos 69 40 - 130 Units/L [facility] ALT 44 7 - 45 Units/L [facility] AST 45 10 - 45 Units/L [facility] Comment:Hemolyzed; result ma y be falsely elevated Blood specimen (specimen) 02/17/2020 1:30 PM CDT 02/17/2020 1:54 PM CDT us Osiris Sue BOAT WORKER LAB BLOOD ORDERABLES Shirin l Result Performing Organization Address [facility] de Phone Number [facility] [place] [address] * SONJA qualitative with reflex to SONJA Quantitative (02/17/2020 1:30 PM CDT) SONJA Positive 1:80 [facility] Comment: Interpretive Data Normal range for Sonja Qualitative Antibody = Negative. 1. ??SONJA titers are performed on all positive qualitative results. 2. ??A significantly positive SONJA result is defined as a positive nuclear fluorescence at a titer of 1:80 or greater. 3. ??15% of normal people above age 65 have significantly positive SONJA results. ??5% or less of normal people age 65 or under have significantly positive SONJA results. Current interpretive data was last revised on 04. SONJA, quant 1:80 titer [facility] SONJA, interp Homogeneous [facility] Blood specimen (specimen) 02/17/2020 1:30 PM CDT 02/17/2020 1:54 PM CDT Osiris Sue BOAT WORKER LAB BLOOD ORDERABLES Shirin l Result Performing Organization Address [facility] de Phone Number [facility] [place] [address] * Protein / creatinine ratio, urine, random (02/17/2020 1:30 PM CDT) Protein, ur, quant 5.1 mg/dL [facility] Comment: Interpretive Data No reference range established. Current interpretive data was last revised 2019. Creatinine Ur 62.7 mg/dL [facility] Comment: Interpretive Data No reference range established. Current interpretive data was last revised 2019. Protein/creatinin e ratio 81.3 0.0 - 180.0 mg/g CR [facility] Urine 02/17/2020 1:30 PM CDT 02/17/2020 1:54 PM CDT Osiris Sue NP LAB URINE ORDERABLES Shirin l Result [facility] [place] [address] * Urinalysis reflex to microscopic and culture Urine (02/17/2020 1:30 PM CDT) Color, ur Straw Yellow [facility] Clarity, ur Clear Clear [facility] Specific gravity, ur 1.012 1.010 - 1.025 [facility] pH, urine 5 [facility] Protein, ur ql Negative Negative [facility] Glucose, ur ql Negative Negative [facility] Ketones, ur Negative Negative [facility] Bilirubin, ur Negative Negative [facility] Blood, ur Negative Negative [facility] Urobilinogen, ur <2.0 <2.0 mg/dL [facility] Nitrite, ur Negative Negative [facility] Leukocyte esterase, ur Negative Negative [facility] UA reflex comment Reflex conditions for microscopic UA and culture not met. [facility] Urine 02/17/2020 1:30 PM CDT 02/17/2020 1:54 PM CDT Narrative [facility] - 02/17/2020 2:01 PM CDT ?? Urine pH is affected by diet, medications, systemic acid-base disturbances, and renal tubular function. ??pH may affect urinary stone formation. ??For example, urine pH below 6.0 may help reduce the tendency for calcium phosphate stones and pH greater than 6.0 may reduce the tendency for uric acid stone formation. Source: [employer]. Last revised 09-17-2017 us Osiris Sue NP LAB MICROBIOLOGY - GENERA L ORDERABLES Final Result Performing Organization Address City/[facility]/ZIP Co de Phone Number [facility] [place] [address] * C4 complement (02/17/2020 1:30 PM CDT) Complement C4 25.0 10.0 - 40.0 mg/dL [facility] Blood specimen (specimen) 02/17/2020 1:30 PM CDT 02/17/2020 1:54 PM CDT Osiris Sue BOAT WORKER LAB BLOOD ORDERABLES Shirin l Result Performing Organization Address [facility] Co de Phone Number [facility] [place] [address] * C3 complement (02/17/2020 1:30 PM CDT) Complement C3 151.0 90.0 - 180.0 mg/dL [facility] Blood specimen (specimen) 02/17/2020 1:30 PM CDT 02/17/2020 1:54 PM CDT Osiris Sue BOAT WORKER LAB BLOOD ORDERABLES Shirin l Result Performing Organization Address [facility] Co de Phone Number [facility] [place] [address] * Erythrocyte sedimentation rate (02/17/2020 1:30 PM CDT) Pathologist [facility] [place] Erythrocyte sedimentation rate 7 1 - 30 mm/hr [facility] Blood specimen (specimen) 02/17/2020 1:30 PM CDT 02/17/2020 1:54 PM CDT Osiris Sue BOAT WORKER LAB BLOOD ORDERABLES Shirin l Result Performing Organization Address [facility] Co de Phone Number [facility] [place] [address] * Aldolase (02/17/2020 1:30 PM CDT) Pathologist [facility] [place] Aldolase See Comment 0.1 - 8.0 Units/L [facility] Comment:Credited, hemolyzed specimen. Blood specimen (specimen) 02/17/2020 1:30 PM CDT 02/17/2020 1:54 PM CDT us Osiris Sue BOAT WORKER LAB BLOOD ORDERABLES Shirin feng Result Performing Organization Address City/State/[facility] Co de Phone Number [facility] [place] [address] documented in this encounter Visit Diagnoses Diagnosis Positive SONJA (antinuclear antibody)- Primary Other and unspecified nonspecific immunological findings Arthralgia of both hands Positive SONJA (antinuclear antibody) Other and unspecified nonspecific immunological findings Arthralgia of both hands Positive SONJA (antinuclear antibody) Other and unspecified nonspecific immunological findings Arthralgia of both hands documented in this encounter Care Teams Global Sales Director Relationship Specialty Start Date End Date Naya Arriola PA [address] [place] [id number] PCP - General Physician Customer Care Assistant 10/20/19 documented as of this encounter
--- OUTSIDE RECORDS SUMMARY | 2024-09-18 09:40 | XMS_ITS | Encounter Summary ---
Author Organization [facility] Address [address] [place] [address] Care Team Providers Care Bill Adjuster Name Role Phone Naya Arriola Primary Care Provider [phone] Encounter Details Date Type Department Care Team (Late st Contact Info) Description 01/03/2021 Telephone [facility] Cardiology [address] [place] [address] Kike Alexandre MD [address] [facility] [address] [place] [address] Social History Tobacco Use Types Packs/Day Years Used Date Smoking Tobacco: Former Cigarettes Q uit: 06/2019 Smokeless Tobacco: Never Alcohol Use Standard Drinks/Week Comments Not Currently 0 (1 standard drink = 0.6 oz pur e alcohol) 1 or twice a year Comments Unknown Sex and Gender Information Value Date Recorded Sex Assigned at Not on file Legal 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 Pt said she felt like EMS swayedher to not go to the ED to get checked out. Advised pt to report to the ED for further evaluation. Pt is going to call her dgt and report to ED. Will notify AD who is rounding at today. * Telephone Encounter - Geovanna Rocha - 01/03/2021 12:48 PM CDT PT had an episode of right arm pain that started mid arm and went all the way up to her neck at 11:15 am. Pt took 3 nitros 5 minutes apart and then called 911 when the pain didn't let up after the third nitro. Pt said EMS came out and did an ekg which looked fine so patient chose not to go to theER. Pt said the right arm pain felt like it did when she had her previous heart attack but that time the pain was in both arms. Pt is at home resting. [phone] documented in this encounter Plan of Treatment Not on file documented as of this encounter Visit Diagnoses Not on filedocumented in this encounter Care Teams Bill Adjuster Relationship Specialty Start Date End Date Naya Arriola PA [address] [place] [address] PCP - General Physician Electrotherapist 10/20/19 documented as of this encounter
--- OUTSIDE RECORDS SUMMARY | 2024-09-18 09:40 | XMS_ITS | Encounter Summary ---
Author Organization [facility] Address [address] [place] [address] Care Team Providers Care Network Liaison Name Role Phone Naya Arriola Primary Care Provider Encounter Details Date Type Department Care Team (Late st Contact Info) Description 01/04/2021 Orders Only [facility] Cardiology [address] [place] [address] Kike Alexandre MD [facility] [place] [address] Social History Tobacco Use Types Packs/Day Years Used Date Smoking Tobacco: Former Cigarettes Q uit: 06/2019 Smokeless Tobacco: Never Alcohol Use Standard Drinks/Week Comments Not Currently 0 (1 standard drink = 0.6 oz pur e alcohol) 1 or twice a year Comments Unknown Sex and Gender Information Value Date Recorded Sex Assigned at Not on file 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 Gender Identity Female 01/13/2020 8:00 PM CDT Sexual Orientation Straight 01/13/2020 8: 00 PM CDT documented as of this encounter Plan of Treatment Not on file documented as of this encounter Procedures Procedure Name Priority Date/Time Associated Diagnosis Comments CARDIOLOGY DOCUMENT SCAN Routine 01/04/2021 documented in this encounter Results * SCAN - CARDIOLOGY (01/04/2021) Anatomical Region Laterality Modality Other Kike Alexandre MD CV CARDIAC SERVICES PROC EDURES Final Result documented in this encounter Visit Diagnoses Not on filedocumented in this encounter Care Teams Network Liaison Relationship Specialty Start Date End Date Naya Arriola PA [address] [place] [address] PCP - General Physician Cop Winder 10/20/19 documented as of this encounter
--- OUTSIDE RECORDS SUMMARY | 2024-09-18 09:40 | XMS_ITS | Encounter Summary ---
Author Organization [facility] Address [address] [place] [address] Phone Care Team Providers Care Fruit Express Agent Name Role Phone Naya Arriola Primary Care Provider [phone] Encounter Details Date Type Department Care Team (Late st Contact Info) Description 02/22/2020 Orders Only [facility] Rheumatology [address] [place] [address] [place] [address] Osiris Sue, RODGER [address] [place] [address] Arthralgia of both hands (Primary Dx); Osteoarthritis of both hips, unspecified osteoarthritis type Social History Tobacco Use Types Packs/Day Years Used Date Smoking Tobacco: Former Cigarettes Q uit: 06/2019 Smokeless Tobacco: Never Alcohol Use Standard Drinks/Week Comments Not Currently 0 (1 standard drink = 0.6 oz pur e alcohol) Comments Unknown Sex and Gender Information Value Date Recorded Sex Assigned at Not on file 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
--- OUTSIDE RECORDS SUMMARY | 2024-09-18 09:40 | XMS_ITS | Encounter Summary ---
Author Organization [facility] Healthcare Address [address] [place] [address] Care Team Providers Care Gis Software Developer Name Role Phone Naya Arriola Primary Care Provider [phone] Encounter Details Date Type Department Care Team (Late st Contact Info) Description 02/17/2020 1:25 PM CDT Lab [facility] Advanced Medicine [facility] Advanced [facility] ([facility] [place]) [address] [place] [id number] Osiris Sue NP [address] [facility] [address] [place] [address] Positive LEYLA (antinuclear antibody); Arthralgia of both hands Discharge Disposition: Discharge to home or self care Social History Tobacco Use Types Packs/Day Years Used Date Smoking Tobacco: Former Cigarettes Q uit: 06/2019 Smokeless Tobacco: Never Alcohol Use Standard Drinks/Week Comments Not Currently 0 (1 standard drink = 0.6 oz pur e alcohol) Comments Unknown Sex and Gender Information Value Date Recorded Sex Assigned at Not on file Legal Sex Female 12:28 PM [employer] Gender Identity Female 01/13/2020 8:00 PM CDT Sexual Orientation Straight 01/13/2020 8: 00 PM CDT documented as of this encounter Discharge Disposition Disposition Code Departure Means Destination Discharge to home or self care documented in this encounter Miscellaneous Notes * Result Encounter Note - Osiris Sue NP - 02/22/2020 3:13 PM CDT LEYLA very low titer at 1:80 * Result Encounter Note - Osiris Sue NP - 02/17/2020 6:54 PM CDT Labs unremarkable. Pt notified. documented in this encounter Plan of Treatment Not on file documented as of this encounter Procedures Procedure Name Priority Date/Time Associated Diagnosis Comments LEYLA QUALITATIVE WITH REFLEX TO LEYLA QUANTITATIVE Routine 02/17/2020 1:30 PM CDT Positive LEYLA (antinuclear antibody) Arthralgia of both hands DIFFERENTIAL AUTO Routine 02/17/2020 1:3 0 PM CDT Positive LEYLA (antinuclear antibody) Arthralgia of both hands C4 COMPLEMENT Routine 02/17/2020 1:30 PM CDT Positive LEYLA (antinuclear antibody) Arthralgia of both hands URINALYSIS AND REFLEX TO MICROSCOPIC AND CULTURE Routine 02/17/2020 1:30 PM CDT Positive LEYLA (antinuclear antibody) Arthralgia of both hands CBC WITH AUTO DIFFERENTIAL Routine 02/17/2020 1:30 PM CDT Positive LEYLA (antinuclear antibody) Arthralgia of both hands PROTEIN / CREATININE RATIO, URINE, RANDOM Routine 02/17/2020 1:30 PM CDT Positive LEYLA (antinuclear antibody) Arthralgia of both hands ALDOLASE Routine 02/17/2020 1:30 PM CDT Positive LEYLA (antinuclear antibody) Arthralgia of both hands ERYTHROCYTE SEDIMENTATION RATE Routine 02/17/2020 1:30 PM CDT Positive LEYLA (antinuclear antibody) Arthralgia of both hands C3 COMPLEMENT Routine 02/17/2020 1:30 PM CDT Positive LEYLA (antinuclear antibody) Arthralgia of both hands CREATINE KINASE (CK), TOTAL Routine 02/17/2020 1:30 PM CDT Positive LEYLA (antinuclear antibody) Arthralgia of both hands COMPREHENSIVE METABOLIC PANEL Routine 02/17/2020 1:30 PM CDT Positive LEYLA (antinuclear antibody) Arthralgia of both hands documented in this encounter Results * Differential, auto (02/17/2020 1:30 PM CDT) Neutrophil abs 3.2 1.7 - 6.5 K/cumm [facility] Imm gran abs 0.0 0.0 - 0.1 K/cumm [facility] Lymphocyte abs 2.7 0.8 - 3.3 K/cumm [facility] Monocyte abs 0.7 0.2 - 0.8 K/cumm [facility] Eosinophil abs 0.3 0.0 - 0.5 K/cumm [facility] Basophil abs 0.1 0.0 - 0.1 K/cumm [facility] Neutrophil pct 46.1 % [facility] Comment: Interpretive Data Percent cell count reference ranges are not reported, since discordance with absolute values may lead to misinterpretation of CBC data. Current Interpretive Data was last revised on 2017. Imm gran pct 0.3 % [facility] Comment: Interpretive Data Percent cell count reference ranges are not reported, since discordance with absolute values may lead to misinterpretation of CBC data. Current Interpretive Data was last revised on 2017. Lymphocyte pct 39.3 % [facility] Comment: Interpretive Data Percent cell count reference ranges are not reported, since discordance with absolute values may lead to misinterpretation of CBC data. Current Interpretive Data was last revised on 2017. Monocyte pct 9.4 % [facility] Comment: Interpretive Data Percent cell count reference ranges are not reported, since discordance with absolute values may lead to misinterpretation of CBC data. Current Interpretive Data was last revised on 2017. Eosinophil pct 4.2 % [facility] Comment: Interpretive Data Percent cell count reference ranges are not reported, since discordance with absolute values may lead to misinterpretation of CBC data. Current Interpretive Data was last revised on 2017. Basophil pct 0.7 % [facility] Comment: Interpretive Data Percent cell count reference ranges are not reported, since discordance with absolute values may lead to misinterpretation of CBC data. Current Interpretive Data was last revised on 2017. Blood specimen (specimen) 02/17/2020 1:30 PM CDT 02/17/2020 1:54 PM CDT Osiris Sue NP LAB BLOOD ORDERABLES Shirin l Result Performing Organization Address City/[facility] Co de Phone Number [facility] [place] [address] * Creatine kinase (CK), total (02/17/2020 1:30 PM CDT) Pathologist [facility] CK 145 30 - 200 Units/L [facility] Blood specimen (specimen) 02/17/2020 1:30 PM CDT 02/17/2020 1:54 PM CDT Osiris Sue NP LAB BLOOD ORDERABLES Shirin l Result Performing Organization Address [facility] de Phone Number [facility] [place] [address] * Comprehensive metabolic panel (02/17/2020 1:30 PM CDT) Pathologist [facility] Sodium 139 135 - 145 mmol/L [facility] Potassium, pl 4.2 3.3 - 4.9 mmol/L [facility] Comment:Hemolyzed; Potassium value may be falsely elevated by as much as 0.3-0.5 mmol/L. Suggest redraw and reanalysis. Chloride 100 97 - 110 mmol/L [facility] CO2 28 22 - 32 mmol/L [facility] Anion gap 11 2 - 15 mmol/L [facility] BUN 13 8 - 25 mg/dL [facility] Creatinine 0.82 0.60 - 1.10 mg/dL [facility] Glucose 120 70 - 199 mg/dL [facility] Comment: Interpretive Data Fasting glucose >/= 126 [...] 2017. Calcium 9.7 8.5 - 10.3 mg/dL [facility] Bilirubin, total 0.3 0.1 - 1.2 mg/dL [facility] Protein, pl 7.4 6.5 - 8.5 g/dL [facility] Albumin 4.4 3.5 - 5.0 g/dL [facility] Alk phos 69 40 - 130 Units/L [facility] ALT 44 7 - 45 Units/L [facility] AST 45 10 - 45 Units/L [facility] Comment:Hemolyzed; result ma y be falsely elevated Blood specimen (specimen) 02/17/2020 1:30 PM CDT 02/17/2020 1:54 PM CDT Osiris Sue [employer] LAB BLOOD ORDERABLES Shirin feng Result [facility] [place] [address] * LEYLA qualitative with reflex to LEYLA Quantitative (02/17/2020 1:30 PM CDT) LEYLA Positive 1:80 [facility] Comment: Interpretive Data Normal range for Leyla Qualitative Antibody = Negative. 1. ??LEYLA titers are performed on all positive qualitative results. 2. ??A significantly positive LEYLA result is defined as a positive nuclear fluorescence at a titer of 1:80 or greater. 3. ??15% of normal people above age 65 have significantly positive LEYLA results. ??5% or less of normal people age 65 or under have significantly positive LEYLA results. Current interpretive data was last revised on 04. LEYLA, quant 1:80 titer [facility] LEYLA, interp Homogeneous [facility] Blood specimen (specimen) 02/17/2020 1:30 PM CDT 02/17/2020 1:54 PM CDT Osiris Sue [employer] LAB BLOOD ORDERABLES Shirin l Result Performing Organization Address [facility] de Phone Number [facility] [place] [address] * Protein / creatinine ratio, urine, random (02/17/2020 1:30 PM CDT) Protein, ur, quant 5.1 mg/dL [facility] Comment: Interpretive Data No reference range established. Current interpretive data was last revised 2019. Creatinine Ur 62.7 mg/dL [facility] Comment: Interpretive Data No reference range established. Current interpretive data was last revised 2019. Protein/creatinin e ratio 81.3 0.0 - 180.0 mg/g CR [facility] Urine 02/17/2020 1:30 PM CDT 02/17/2020 1:54 PM CDT Osiris Sue [employer] LAB URINE ORDERABLES Shirin l Result Performing Organization Address [facility] Phone Number [facility] [place] [address] * Urinalysis reflex to microscopic and culture Urine (02/17/2020 1:30 PM CDT) Color, ur Straw Yellow [facility] Clarity, ur Clear Clear [facility] Specific gravity, ur 1.012 1.010 - 1.025 [facility] pH, urine 5 [facility] Protein, ur ql Negative Negative [facility] Glucose, ur ql Negative Negative [facility] Ketones, ur Negative Negative [facility] Bilirubin, ur Negative Negative [facility] Blood, ur Negative Negative [facility] Urobilinogen, ur <2.0 <2.0 mg/dL [facility] Nitrite, ur Negative Negative [facility] Leukocyte esterase, ur Negative Negative [facility] UA reflex comment Reflex conditions for microscopic UA and culture not met. [facility] Urine 02/17/2020 1:30 PM CDT 02/17/2020 1:54 PM CDT Narrative [facility] - 02/17/2020 2:01 PM CDT ?? Urine pH is affected by diet, medications, systemic acid-base disturbances, and renal tubular function. ??pH may affect urinary stone formation. ??For example, urine pH below 6.0 may help reduce the tendency for calcium phosphate stones and pH greater than 6.0 may reduce the tendency for uric acid stone formation. Source: [facility]. Last revised 09-17-2017 Osiris Sue NP LAB MICROBIOLOGY - GENERA L ORDERABLES Final Result Performing Organization Address [facility] Co de Phone Number [facility] Department [place] [address] * C4 complement (02/17/2020 1:30 PM CDT) Complement C4 25.0 10.0 - 40.0 mg/dL [facility] Blood specimen (specimen) 02/17/2020 1:30 PM CDT 02/17/2020 1:54 PM CDT Osiris Sue NP LAB BLOOD ORDERABLES Shirin l Result [facility] [place] [address] * C3 complement (02/17/2020 1:30 PM CDT) Complement C3 151.0 90.0 - 180.0 mg/dL [facility] Blood specimen (specimen) 02/17/2020 1:30 PM CDT 02/17/2020 1:54 PM CDT Osiris Kylee Kellahan [employer] LAB BLOOD ORDERABLES Shirin l Result Performing Organization Address [facility] Co de Phone Number [facility] [place] [address] * Erythrocyte sedimentation rate (02/17/2020 1:30 PM CDT) [facility] Erythrocyte sedimentation rate 7 1 - 30 mm/hr [facility] Blood specimen (specimen) 02/17/2020 1:30 PM CDT 02/17/2020 1:54 PM CDT Osiris Sue NP LAB BLOOD ORDERABLES Shirin l Result Performing Organization Address [facility] [place] [address] * Aldolase (02/17/2020 1:30 PM CDT) [facility] Aldolase See Comment 0.1 - 8.0 Units/L [facility] Comment:Credited, hemolyzed specimen. Blood specimen (specimen) 02/17/2020 1:30 PM CDT 02/17/2020 1:54 PM CDT us Osiris Sue NP LAB BLOOD ORDERABLES Shirin l Result Performing Organization Address [facility] Co de Phone Number [facility] [place] [address] * CBC with auto differential (02/17/2020 1:30 PM CDT) [facility] WBC 6.9 3.8 - 9.9 K/cumm [facility] Hgb 13.6 11.9 - 15.5 g/dL [facility] Hct 42.1 35.6 - 45.5 % [facility] Plt 247 150 - 400 K/cumm [facility] MPV 11.3 9.1 - 12.3 fL [facility] RBC 4.94 3.90 - 5.20 M/cumm [facility] MCV 85.2 81.3 - 96.4 fL [facility] MCH 27.5 27.1 - 33.3 pg [facility] MCHC 32.3 32.3 - 35.7 g/dL [facility] RDW CV 14.6 11.1 - 14.9 % [facility] RDW SD 44.9 35.7 - 48.1 fL [facility] NRBC abs 0.00 0.00 - 0.01 K/cumm [facility] Blood specimen (specimen) 02/17/2020 1:30 PM CDT 02/17/2020 1:54 PM CDT us Osiris Sue NP LAB BLOOD ORDERABLES Shirin feng Result Performing Organization Address City/State/[facility] Co de Phone Number [facility] [place] [address] documented in this encounter Visit Diagnoses Diagnosis Positive LEYLA (antinuclear antibody) Other and unspecified nonspecific immunological findings Arthralgia of both hands documented in this encounter Care Teams Gis Software Developer Relationship Specialty Start Date End Date Naya Arriola PA [address] [place] [address] PCP - General Physician Receiving Worker 10/20/19 documented as of this encounter
--- OUTSIDE RECORDS SUMMARY | 2024-09-18 09:40 | XMS_ITS | Encounter Summary ---
Author Organization [facility] Healthcare Address [address] [place] [address] Care Team Providers Care Mechanist Name Role Phone Naya Arriola Primary Care Provider [phone] Reason for Referral * Cardiology (Routine) - Closed Specialty Diagnoses / Procedures Referred By Contac t Referred To Contact Diagnoses Coronary artery disease involving [place] coronary artery of [place] heart without angina pectoris Procedures ECG 12 lead Kike Alexandre MD Phone: tel: fax: Referral ID Status Reason Start Date Expiration Date Visits Re quested Visits Authorized [id number] Closed 08/19/2023 09/17/2024 1 1 H BLENDER Reason for Visit * Reason Comments Follow-up 1 yr f/u Coronary Artery Disease Encounter Details Date Type Department Care Team (Latest Contact Info) Description 08/19/2023 2:00 PM BATCH BLENDER Office Visit [facility] Cardiology [address] [facility] [address] [place] [address] Kike Alexandre MD [address] [facility] [address] [place], [place] [id number] Coronary artery disease involving [place] coronary artery of [place] heart without angina pectoris (Primary Dx); Hypertension associated with diabetes (HCC); Mixed 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 (CMS/HCC) (HCC); Morbid obesity with BMI of 40.0-44.9, adult (HCC); Systemic lupus erythematosus, unspecified SLE type, unspecified organ involvement status (HCC); LISSETTE (obstructive sleep apnea) Social History Tobacco [...] on file Legal Sex Female 12:28 PM BATCH BLENDER Gender Identity Female 01/13/2020 8:00 PM CDT Sexual Orientation Straight 01/13/2020 8: 00 PM CDT documented as of this encounter Last Filed Vital Signs Vital Sign Reading Time Taken Comments Blood Pressure 114/74 08/19/2023 1:45 PM BATCH BLENDER Pulse 95 08/19/2023 1:45 PM BATCH BLENDER Temperature - - Respiratory Rate - - Oxygen Saturation 97% 08/19/2023 1:45 PM BATCH BLENDER Inhaled Oxygen Concentration - - Weight 107.5 kg (236 lb 14.4 oz) 08/19/2023 1:45 PM BATCH BLENDER Height 160 cm (5' 3 ) 08/19/2023 1:45 PM BATCH BLENDER Body Mass Index 41.96 08/19/2023 1:45 PM BATCH BLENDER documented in this encounter Ordered Prescriptions Prescription Sig Dispense Quantity Refills Last Filled Start Date End Date nitroglycerin (NITROSTAT) 0.[address] 1 tablet (0.4 mg total) under the tongue every 5 (five) minutes as needed for chest pain 25 tablet 3 08/19/2023 documented in this encounter Progress Notes * Kike Alexandre MD - 08/19/2023 2:00 PM [facility] DATE OF VISIT: 08/19/2023 CHIEF COMPLAINT Chief Complaint Patient presents with Follow-up 1 yr f/u Coronary Artery Disease ASSESSMENT Diagnoses and all orders for this visit: Coronary artery disease involving [place] coronary artery of [place] heart without angina pectoris (Primary) - ECG 12 lead Hypertension associated with diabetes (HCC) Mixed 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 (CMS/HCC) (HCC) - POCT lipid panel Morbid obesity with BMI of 40.0-44.9, adult (HCC) Systemic lupus erythematosus, unspecified SLE type, unspecified organ involvement status (HCC) LISSETTE (obstructive sleep apnea) Other orders - nitroglycerin (NITROSTAT) 0.4 mg SL tablet; Place 1 tablet (0.4 mg total) under the tongue every 5 (five) minutes as needed for chest pain PLAN/RECOMMENDATIONS 1. No recurrent anginal symptoms improved with long-acting nitrate therapy. Continue isosorbide mononitrate 30 mg daily. Dewey well. -Aggressive CAD risk modification counseling performed. Continue current medical therapy. Notify office immediately with anginal symptoms. -stable moderate nonobstructive disease on recent left heart catheterization. Notify the office with progressive symptoms and/or new concerns such as intolerance to medical therapy. -continue Aspirin 81 mg daily. Monitor for bleeding as counseled. -sublingual nitroglycerin refilled. 2. BP controlled, improved on repeat check. Monitor BP on routine basis goal <130/80mmHg. Call with readings. Continue consistent cardiovascular exercise, weight loss, medication compliance, and low-sodium diet. -Continue Lisinopril 20mg daily, Metoprolol 50mg BID, Imdur 30mg daily 3. Lipids personally reviewed from 08/19/23 LDL 70 (previously 57) well controlled. Continue statintherapy and lifestyle modification. Goal LDL less than 70. Tolerating Atorvastatin 40 mg at bedtime. Encouraged lifestyle modifications and increased exercise. Discussed at length. 4. DM managed by PCP Liraglutide, Metformin 500mg BID. 5. She has not followed up with sleep study as previously advised. 6. Lifestyle modification counseling performed. Encouraged consistent weight loss, exercise, reduction in caloric intake. -12 lead EKG today personally reviewed and discussed sinus rhythm 86 beats per minute NV 178 milliseconds QRS 108 milliseconds QT corrected 400 milliseconds, baseline artifact, low-voltage QRS, borderline ECG. Over 50% of this visit counseling CAD, HTN, lipids, medications, lifestyle modification. Follow up in the office in 1 year or sooner as needed. Thank you for allowing me the privilege of participating in the care this very pleasant patient. Please do not hesitate to contact me with any additional questions or concerns. CHAPARRO Rodriguez is a 57 y.o. female with a PMHx of CAD status post myocardial infarction 2010 status post stent to proximal LAD, hypertension, type 2 diabetes mellitus, dyslipidemia, lupus erythematosus, morbid obesity, obstructive sleep apnea untreated, history of tobacco abuse seen in follow-up. Left heart catheterization [facility] December 2019: patent previously placed stent proximal LAD 10% InStent restenoses, 60-70% mid circumflex stenosis with post stenotic aneurysmal dilatation, 50-70% stenosis mid RCA very large caliber vessel. 01/02/20 This was a telemedicine visit -Admitted to [facility] with CP concerning for angina negative troponins [...] stress. Has some GERD sxs after eating [place]. No exertional CP or DENISE. BP ok at home. Mild edema worse as days progresses 10/26/20 Office visit 07/26/21 Losing weight feels better overall. Admitted to [facility] December 2020 with CP negative Lexiscan no recurrent CP whatsoever. Taking Lasix 20mg every other day. BP controlled. Meds unchanged, dewey well. She wanted to inc Lasix to 20mg daily due to LE edema. No falls bleeding. Occ dizziness no SOB. Having LAKE she relates to how she slept. Taking Imdur 30mg daily. 08/04/22 Feeling fine no CP or SOB. No palps. Very busy in general. No dizziness, bleeding. Trippedover a doorstop and fell otherwise no other issues. Energy is fine, dewey meds. Occ mild edema. Neverdid get repeat sleep study. LAsix 20mg every other day. Metoprolol 50mg BID 08/19/23 Feeling well. No new complaints. Denies chest pain, exertional dyspnea, palpitations, dizziness, near syncope and/or syncope. No edema. Tolerating medications well without difficulty. Dewey meds no changes. No limitations or hospitalizations. MEDICAL HISTORY Past Medical History: Diagnosis Date Anxiety Arthritis Autoimmune disease (CMS/HCC) (HCC) 2005 Depression 2006 Diabetes mellitus (HCC) Gall stones Heart attack (HCC) Heart disease 2010 Hyperlipidemia Hypertension Neuromuscular disorder (HCC) 2005 Sleep apnea Thyroid disease Social History Tobacco Use Smoking status: Former Smoker Quit date: 06/2019 Years since quittin.1 Smokeless tobacco: Never Used Substance Use Topics Alcohol use: Not Currently Alcohol/week: 0.0 standard drinks Comment: 1 or twice a year Drug use: Never Family History Problem Relation Age of Onset Heart attack Mother Arthritis Mother Hyperlipidemia Mother Heart attack Father Early Father Cancer Daughter Cancer Daughter Depression Sister Diabetes Sister Hypertension Sister Obesity Sister Obesity Sister MEDICATIONS HOME MEDICATIONS : amitriptyline (ELAVIL) 75 mg tablet aspirin 81 mg enteric coated tablet atorvastatin (LIPITOR) 40 mg tablet celecoxib (CeleBREX) 100 mg capsule cholecalciferol (VITAMIN D-3) 5,000 unit capsule furosemide (LASIX) 20 mg tablet isosorbide mononitrate ER (IMDUR) 30 mg 24 hr tablet levothyroxine (SYNTHROID) 88 mcg tablet linaCLOtide (LINZESS) 290 mcg capsule LIRAGLUTIDE SUBQ lisinopriL (PRINIVIL,ZESTRIL) 20 mg tablet metFORMIN (GLUMETZA) 500 mg 24 hr tablet metoprolol tartrate (LOPRESSOR) 50 mg immediate release tablet pantoprazole DR (PROTONIX) 40 mg EC tablet nitroglycerin (NITROSTAT) 0.4 mg SL tablet nitroglycerin (NITROSTAT) 0.4 mg SL tablet ALLERGIES Allergies Allergen Reactions Sulfa (Sulfonamide Antibiotics) Anaphylaxis Latex Rash REVIEW OF SYSTEMS Review of Systems Constitutional: Positive for malaise/fatigue and weight loss. Negative for decreased appetite, diaphoresis, fever, night sweats and weight gain. HENT: Negative for hearing loss and nosebleeds. Eyes: Negative for blurred vision and pain. Cardiovascular: Positive for leg swelling. Negative for chest pain, claudication, dyspnea on exertion, irregular heartbeat, near-syncope, orthopnea, palpitations and syncope. Respiratory: Negative for cough, hemoptysis, shortness of breath, snoring and wheezing. Endocrine: Negative for cold intolerance and heat intolerance. Hematologic/Lymphatic: Negative for bleeding problem. Does not bruise/bleed easily. Skin: Negative for color change, itching, rash and suspicious lesions. Musculoskeletal: Positive for arthritis and joint pain. Negative for falls, muscle weakness and myalgias. Gastrointestinal: Negative for abdominal pain, heartburn, hematemesis, melena and nausea. Genitourinary: Negative for dysuria, hematuria and nocturia. Neurological: Negative for excessive daytime sleepiness, dizziness, focal weakness, headaches, light-headedness, loss of balance and weakness. Psychiatric/Behavioral: Negative for altered mental status, depression and memory loss. The patientis not nervous/anxious. Allergic/Immunologic: Negative for environmental allergies. All other systems reviewed and are negative. PHYSICAL EXAM Vitals BP 114/74 (BP Location: Left arm, Patient Position: Sitting) Pulse 95 Ht 160 cm (5' 3 ) Wt 107.5 kg (236 lb 14.4 oz) SpO2 97% BMI 41.96 kg/m?? Weight: 107.5 kg (236 lb 14.4 oz) Height: 160 cm (5' 3 ) Body mass index is 41.96 kg/m??. On video today patient appeared rested, no apparent distress, breathing comfortably, speaking in full sentences. She was alert and oriented x3, pleasant and cooperative. No dyspnea or tachypnea. Headatraumatic and normocephalic. Moving eyes normally, external inspection of nose normal. No facial dissymmetry. Mood calm and appropriate. LABS AND OTHER DIAGNOSTIC TESTS [facility] records, coronary angiography, EKG, blood work personally reviewed. 01/04/21 [facility] EF >70% no ischemia or infarction. LDL 57 12/23/19 Personally reviewed EKG, electronic medical record, and bloodwork/lipids. Latoya Alexandre MD, [facility] This note is dictated and transcribed using [employer] Direct Software. Visitor Services Technician variancesmay occur. Despite proofreading, typographical errors may occur. Physical Exam Vitals reviewed. Constitutional: General: She is not in acute distress. Appearance: Normal appearance. She is well-developed. She is not diaphoretic. HENT: Head: Normocephalic and atraumatic. Right Ear: External ear normal. Left Ear: External ear normal. Nose: Nose normal. Mouth/Throat: Mouth: Mucous membranes are moist. Dentition: Normal dentition. Eyes: General: Lids are normal. No scleral icterus. Extraocular Movements: Extraocular movements intact. Conjunctiva/sclera: Conjunctivae normal. Neck: Thyroid: No thyromegaly. Vascular: Normal carotid pulses. No carotid bruit, hepatojugular reflux or JVD. Trachea: No tracheal deviation. Cardiovascular: Rate and Rhythm: Normal rate and regular rhythm. Pulses: Normal pulses and intact distal pulses. No decreased pulses. Heart sounds: Normal heart sounds, S1 normal and S2 normal. Heart sounds not distant. No murmur heard. No friction rub. No gallop. No S3 or S4 sounds. Pulmonary: Effort: Pulmonary effort is normal. No respiratory distress. Breath sounds: Normal breath sounds. No wheezing or rales. Chest: Chest wall: No tenderness. Abdominal: General: Bowel sounds are normal. There is no distension. Palpations: Abdomen is soft. There is no mass. Tenderness: There is no abdominal tenderness. There is no guarding or rebound. Musculoskeletal: General: No tenderness or deformity. Normal range of motion. Cervical back: Normal range of motion and neck supple. Right lower leg: No edema. Left lower leg: No edema. Lymphadenopathy: Cervical: No cervical adenopathy. Skin: General: Skin is warm and dry. Coloration: Skin is not pale. Findings: No ecchymosis, erythema, petechiae or rash. Nails: There is no clubbing. Neurological: General: No focal deficit present. Mental Status: She is alert and oriented to person, place, and time. Mental status is at baseline. Cranial Nerves: No cranial nerve deficit. Motor: No abnormal muscle tone. Coordination: Coordination normal. Psychiatric: Mood and Affect: Mood normal. Speech: Speech normal. Behavior: Behavior normal. Behavior is cooperative. Thought Content: Thought content normal. Judgment: Judgment normal. H BLENDER documented in this encounter Plan of Treatment Not on file documented as of this encounter Procedures Procedure Name Priority Date/Time Associated Diagnosis Comments POCT LIPID PANEL Routine 08/19/2023 2:00 PM BATCH BLENDER Mixed 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 (CMS/HCC) (HCC) ECG 12-LEAD Routine 08/19/2023 Coronary artery disease involving [place] coronary artery of [place] heart without angina pectoris documented in this encounter Results * POCT lipid panel (08/19/2023 2:00 PM BATCH BLENDER) Cholesterol, POC 162 mg/dL Comment:GLU = 87 HDL, POC 36 mg/dL Triglycerides, POC 280 mg/dL LDL Cholesterol POC 70 mg/dL Chol/HDL Ratio, POC 1.9 Non-HDL Cholesterol, POC 126 mg/dL Cholesterol Total, POC 162 mg/dL Capillary blood 08/19/2023 2 :00 PM BATCH BLENDER us Kike Alexandre MD POINT OF CARE TEST ORDER SOFY Final Result * ECG 12 lead (08/19/2023) us Kike Alexandre MD ECG ORDERABLES Edited R esult - Final documented in this encounter Visit Diagnoses Diagnosis Coronary artery disease involving [place] coronary artery of [place] heart without angina pectoris- Primary Hypertension associated with diabetes ([facility]) Unspecified essential hypertension Mixed 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 ([facility]) ([facility]) Morbid obesity with BMI of 40.0-44.9, adult ([facility]) Systemic lupus erythematosus, unspecified SLE type, unspecified organ involvement status ([facility]) LISSETTE (obstructive sleep apnea) Obstructive sleep apnea (adult) (pediatric) documented in this encounter Discontinued Medications Medication Sig Discontinue Reason Start Date End Da te nitroglycerin (NITROSTAT) 0.4 mg SL tablet DISSOLVE 1 TABLET UNDER TONGUE FOR CHEST PAIN. IF PAIN DOESN'T IMPROVE CALL 911. MAY REPEAT EVERY 5 Reorder 08/08/2020 08/19/2023 documented as of this encounter Historical Medications * This list may reflect changes made after this encounter. celecoxib (CeleBREX) 100 mg capsule TAKE ONE CAPSULE BY MOUTH TWICE DAILY NEEDED WITH FOOD 07/22/2023 added in this encounter Care Teams Mechanist Relationship Specialty Start Date End Date Naya Arriola PA [address] [place] [address] PCP - General Physician Organ Tuner 10/20/19 documented as of this encounter
--- OUTSIDE RECORDS SUMMARY | 2024-09-18 09:40 | XMS_ITS | Encounter Summary ---
Author Organization [facility] Address [address] [place] [address] Care Team Providers Care Car Dropper Name Role Phone Naya Arriola Primary Care Provider [phone] Reason for Visit * Reason Comments Hospital Follow Up CAD, neg cath Encounter Details Date Type Department Care Team (Late st Contact Info) Description 01/02/2020 11:[address] [facility] Cardiology [address] [place] [address] Kike Alexandre MD [address] [facility] [address] [place] [address] Coronary artery disease of [place] artery of [place] heart with stable angina pectoris (CMS/HCC) (Primary Dx); Hypertension associated with diabetes (CMS/HCC); Dyslipidemia associated with type 2 diabetes mellitus (CMS/HCC); LISSETTE (obstructive sleep apnea); H/O acute myocardial infarction; S/P coronary artery stent placement; Systemic lupus erythematosus, unspecified SLE type, unspecified organ involvement status (CMS/HCC); Morbid obesity with BMI of 40.0-44.9, adult (CMS/HCC); History of tobacco abuse Social History Tobacco Use Types Packs/Day Years Used Date Smoking Tobacco: Former Cigarettes Q uit: 06/2019 Smokeless Tobacco: Never Alcohol Use Standard Drinks/Week Comments Not Currently 0 (1 standard drink = 0.6 oz pur e alcohol) Comments Unknown Sex and Gender Information Value Date Recorded Sex Assigned at Not on file 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 Gender Identity Female 01/13/2020 8:00 PM CDT Sexual Orientation Straight 01/13/2020 8: 00 PM CDT documented as of this encounter Last Filed Vital Signs Vital Sign Reading Time Taken Comments Blood Pressure - - Pulse - - Temperature - - Respiratory Rate - - Oxygen Saturation - - Inhaled Oxygen Concentration - - Weight 113.4 kg (250 lb) 01/02/2020 12:15 PM CDT Height 160 cm (5' 3 ) 01/02/2020 12:15 PM CDT Body Mass Index 44.29 01/02/2020 12:15 PM CDT documented in this encounter Progress Notes * Kike Alexandre MD - 01/02/2020 11:45 AM CDT [facility] DATE OF VISIT: 01/02/2020 CHIEF COMPLAINT Chief Complaint Patient presents with ??? Hospital Follow Up CAD, neg cath ASSESSMENT Diagnoses and all orders for this visit: Coronary artery disease of [place] artery of [place] heart with stable angina pectoris ([facility]/HCC) (Primary) Hypertension associated with diabetes ([facility]) Dyslipidemia associated with type 2 diabetes mellitus ([facility]/HCC) LISSETTE (obstructive sleep apnea) H/O acute myocardial infarction S/P coronary artery stent placement Systemic lupus erythematosus, unspecified SLE type, unspecified organ involvement status ([facility]) Morbid obesity with BMI of 40.0-44.9, adult ([facility]) History of tobacco abuse PLAN/RECOMMENDATIONS 1. Anginal [...] bedtime. 4. DM managed by PCP 5. Encouraged repeat sleep study and tx for LISSETTE as I suspect many of her sxs are contributed by untreated LISSETTE. She will consider but wishes to discuss with her PCP first. 6. Lifestyle modification counseling performed. Weight loss, exercise, reduction in caloric intake. 7. Counseled on cardiovascular risk of NSAID therapy, bleeding risk and important precautions. Patient verbalized understanding. Patient states she has significant pain off meloxicam. With these caveats and precautions she may take if necessary but advised to minimize as much as possible frequency and amount. Patient verbalized understanding. Alternative preferred such as Tylenol if effective. 8. Coronavirus pandemic precaution counseling. Patient higher risk for complications Personally reviewed hospital records from [place], discussed findings, recommendations of medical therapy. All questions answered to her satisfaction. Follow-up with rheumatology as scheduled. Over 50% of this visit counseling CAD, HTN, lipids, medications, lifestyle modification. Follow up in the office in 4 months or sooner as needed. Thank you for allowing me the privilege of participating in the care this very pleasant patient. Please do not hesitate to contact me with any additional questions or concerns. HPI Lucretia Rodirguez is a 54 y.o. female with a PMHx of CAD status post myocardial infarction 2010 status post stent to proximal LAD, hypertension, type 2 diabetes mellitus, dyslipidemia, lupus erythematosus, morbid obesity, obstructive sleep apnea untreated, history of tobacco abuse seen in follow-up. Left heart catheterization [facility] December 2019: patent previously placed stent proximal LAD 10% InStent restenoses, 60-70% mid circumflex stenosis with post stenotic aneurysmal dilatation, 50-70% stenosis mid RCA very large caliber vessel. 01/02/20 This was a telemedicine visit with Lucretia Rodriguez alone which took place via Real-time audio/video communication/Doximity. During the visit, I was located [facility] Medical [facility] Cardiology office and the patient was located [...] responsible for any applicable copayments. -Admitted to [facility] with CP concerning for angina negative troponins underwent [facility] with mod disease. Feeling ok, better, no [...] off meloxicam and would like to resume. MEDICAL HISTORY Past Medical History: Diagnosis Date ??? Anxiety ??? Arthritis ??? Diabetes mellitus (CMS/HCC) ??? Gall stones ??? Heart attack (CMS/HCC) ??? Hyperlipidemia ??? Hypertension ??? Sleep apnea ??? Thyroid disease Social History Tobacco Use ??? Smoking status: Former Smoker Last attempt to quit: 06/2019 Years since quittin.5 ??? Smokeless tobacco: Never Used Substance Use Topics ??? Alcohol use: Not Currently ??? Drug use: Not on file Family History Problem Relation Age of Onset ??? Heart attack Mother ??? Heart attack Father MEDICATIONS HOME MEDICATIONS : amitriptyline (ELAVIL) 75 mg tablet aspirin 81 mg enteric coated tablet atorvastatin (LIPITOR) 40 mg tablet cholecalciferol (VITAMIN D-3) 5,000 unit capsule citalopram (CeleXA) 40 mg tablet cyanocobalamin (Vitamin B-12) 1,000 mcg tablet hydroCHLOROthiazide [...] pantoprazole DR (PROTONIX) 40 mg EC tablet traMADoL (ULTRAM) 50 mg tablet ALLERGIES Allergies Allergen Reactions ??? Sulfa (Sulfonamide Antibiotics) Anaphylaxis ??? Latex Rash REVIEW OF SYSTEMS Review of Systems Constitution: Positive for malaise/fatigue. Negative for decreased appetite, diaphoresis, fever andnight sweats. HENT: Negative for hearing loss and nosebleeds. Eyes: Negative for blurred vision and pain. Cardiovascular: Positive for chest pain. Negative for claudication, dyspnea on exertion, irregular heartbeat, leg swelling, near-syncope, orthopnea, palpitations and syncope. Respiratory: Positive [...] Negative for environmental allergies. PHYSICAL EXAM Vitals Ht 160 cm (5' 3 ) Wt 113.4 kg (250 lb) BMI 44.29 kg/m?? Weight: 113.4 kg (250 lb) Height: 160 cm (5' 3 ) Body mass index is 44.29 kg/m??. On video today patient appeared rested, no apparent distress, breathing comfortably, speaking in full sentences. She was alert and oriented x3, pleasant and cooperative. No dyspnea or tachypnea. Headatraumatic and normocephalic. Moving eyes normally, external inspection of nose normal. No facial dissymmetry. Mood calm and appropriate. LABS AND OTHER DIAGNOSTIC TESTS [facility] records, coronary angiography, EKG, blood work personally reviewed. LDL 57 12/23/19 Personally reviewed EKG, electronic medical record, and bloodwork/lipids. Latoya Alexandre MD, [facility] This note is dictated and transcribed using [employer] Direct Software. Financial Reporting Director variancesmay occur. Despite proofreading, typographical errors may occur. documented in this encounter Plan of Treatment Not on file documented as of this encounter Visit Diagnoses Diagnosis Coronary artery disease of [place] artery of [place] heart with stable angina pectoris (HCC)- Primary Hypertension associated with diabetes (HCC) Unspecified essential hypertension Dyslipidemia associated with type 2 diabetes mellitus (HCC) LISSETTE (obstructive sleep apnea) Obstructive sleep apnea (adult) (pediatric) H/O acute myocardial infarction S/P coronary artery stent placement Postsurgical percutaneous transluminal coronary angioplasty status Systemic lupus erythematosus, unspecified SLE type, unspecified organ involvement status (HCC) Morbid obesity with BMI of 40.0-44.9, adult (HCC) History of tobacco abuse documented in this encounter Historical Medications * This list may reflect changes made after this encounter. 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 before breakfast atorvastatin (LIPITOR) 40 mg tablet Take 1 tablet (40 mg total) by mouth daily metFORMIN (GLUMETZA) 500 mg 24 hr tablet Take 1 tablet (500 mg total) by mouth daily with breakfast metoprolol tartrate (LOPRESSOR) 50 mg immediate release tablet Take 1 tablet (50 mg total) by mouth 2 (two) times a day pantoprazole DR (PROTONIX) 40 mg EC tablet Take 1 tablet (40 mg total) by mouth daily amitriptyline (ELAVIL) 75 mg tablet Take by mouth nightly traMADoL (ULTRAM) 50 mg tablet Take 50 mg by mouth every 6 (six) hours 0 nitroglycerin (NITROSTAT) 0.[address] 0.4 mg under the tongue every 5 (five) minutes as needed for chest pain 0 aspirin 81 mg enteric coated tablet Take 81 mg by mouth daily 0 isosorbide mononitrate ER (IMDUR) 30 mg 24 hr tablet Take 15 mg by mouth daily 0 cyanocobalamin (Vitamin B-12) 1,000 mcg tabletIndications :Prevention of Vitamin B12 Deficiency Take 1,000 mcg by mouth daily 2 lisinopriL (PRINIVIL,ZESTRIL ) 20 mg tablet Take 20 mg by mouth daily 0 hydroCHLOROthiazi de (HYDRODIURIL) 25 mg tablet Take 25 mg by mouth daily 1 citalopram (CeleXA) 40 mg tablet Take 40 mg by mouth daily 0 hydrOXYzine (ATARAX) 25 mg tablet Take 25 mg by mouth 3 (three) times a day as needed for itching 1 added in this encounter Care Teams Car Dropper Relationship Specialty Start Date End Date Naya Arriola PA [address] [place] [id number] PCP - General Physician Block Cleaner 10/20/19 documented as of this encounter
--- OUTSIDE RECORDS SUMMARY | 2024-09-18 09:40 | XMS_ITS | Encounter Summary ---
Author Organization [facility] Healthcare Address [address] [place] [address] Care Team Providers Care Certified Orthotist Practice Manager Name Role Phone Naya Arriola Primary Care Provider [phone] Reason for Referral * Diagnostic Imaging (Routine) - Closed Specialty Diagnoses / Procedures Referred By Contac t Referred To Contact Diagnoses Positive SONJA (antinuclear antibody) Arthralgia of both hands Procedures XR Hips Bilateral 3 or 4 Views W Pelvis XR Hip Left 4 or More Views Osiris Sue NP Phone: tel: fax: [facility] Referral ID Status Reason Start Date Expiration Date Visits Re quested Visits Authorized [id number] Closed 01/17/2020 07/28/2021 1 1 * Diagnostic Imaging (Routine) - Closed Specialty Diagnoses / Procedures Referred By Contac t Referred To Contact Diagnoses Positive SONJA (antinuclear antibody) Arthralgia of both hands Procedures XR Hand Right 3 or More Views Osiris Sue NP Phone: tel: fax: [facility] Referral ID Status Reason Start Date Expiration Date Visits Re quested Visits Authorized [id number] Closed 01/17/2020 07/28/2021 1 1 * Diagnostic Imaging (Routine) - Closed Specialty Diagnoses / Procedures Referred By Contac t Referred To Contact Diagnoses Positive SONJA (antinuclear antibody) Arthralgia of both hands Procedures XR Hand Left 3 or More Views Osiris Sue NP Phone: tel: fax: [facility] Referral ID Status Reason Start Date Expiration Date Visits Re quested Visits Authorized [id number] Closed 01/17/2020 07/28/2021 1 1 Reason for Visit * Diagnostic Imaging (Routine) - Canceled Specialty Diagnoses / Procedures Referred By Contlouie t Referred To Contact Diagnoses Positive SONJA (antinuclear antibody) Arthralgia of both hands Procedures XR Hip Right 4 or More Views Osiris Sue NP Phone: tel: fax: [facility] Referral ID Status Reason Start Date Expiration Date V isits Requested Visits Authorized [id number] Canceled 01/17/2020 07/28/2021 1 1 Encounter Details Date Type Department Care Team (Latest Contact Info) Description 02/17/2020 1:43 PM CDT - 02/17/2020 11:59 PM CDT Hospital Encounter [facility] [address] [place] [id number] Osiris Sue NP [address] [facility] [address] [place] [address] Positive SONJA (antinuclear antibody); Arthralgia of both hands Discharge [...] on file 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 Gender Identity Female 01/13/2020 8:00 PM CDT Sexual Orientation Straight 01/13/2020 8: 00 PM CDT documented as of this encounter Medications at Time of Discharge amitriptyline (ELAVIL) 75 mg tablet Take by mouth nightly atorvastatin (LIPITOR) 40 mg tablet Take 1 tablet (40 mg total) by mouth daily cholecalciferol (VITAMIN D-3) 5,000 unit capsule Take 1 capsule (5,000 Units total) by mouth daily levothyroxine (SYNTHROID) 88 mcg tablet Take 1 tablet (88 mcg total) by mouth tow driver before breakfast linaCLOtide (LINZESS) 290 mcg capsule Take 1 capsule (290 mcg total) by mouth daily LIRAGLUTIDE SUBQIndications:t ype 2 diabetes mellitus Inject 1.2 mg under the skin daily Indications: type 2 diabetes mellitus metFORMIN (GLUMETZA) 500 mg 24 hr tablet Take 1 tablet (500 mg total) by mouth daily with breakfast metoprolol tartrate (LOPRESSOR) 50 mg immediate release tablet Take 1 tablet (50 mg total) by mouth 2 (two) times a day pantoprazole DR (PROTONIX) 40 mg EC tablet Take 1 tablet (40 mg total) by mouth daily aspirin 81 mg enteric coated tablet Take 81 mg by mouth daily 0 citalopram (CeleXA) 40 mg tablet Take 40 mg by mouth daily 0 cyanocobalamin (Vitamin B-12) 1,000 mcg tabletIndications :Prevention of Vitamin B12 Deficiency Take 1,000 mcg by mouth daily 2 hydroCHLOROthiazi de (HYDRODIURIL) 25 mg tablet Take 25 mg by mouth daily 1 hydrOXYzine (ATARAX) 25 mg tablet Take 25 mg by mouth 3 (three) times a day as needed for itching 1 isosorbide mononitrate ER (IMDUR) 30 mg 24 hr tablet Take 15 mg by mouth daily 0 lisinopriL (PRINIVIL,ZESTRIL ) 20 mg tablet Take 20 mg by mouth daily 0 nitroglycerin (NITROSTAT) 0.[address] 0.4 mg under the tongue every 5 (five) minutes as needed for chest pain 0 traMADoL (ULTRAM) 50 mg tablet Take 50 mg by mouth every 6 (six) hours 0 documented as of this encounter Discharge Disposition Disposition Code Departure Means Destination Discharge to home or self care documented in this encounter Plan of Treatment Not on file documented as of this encounter Procedures Procedure Name Priority Date/Time Associated Diagnosis Comments XR SPINE LUMBAR COMPLETE 4 OR MORE VIEWS Routine 02/17/2020 2:15 PM CDT Positive SONJA (antinuclear antibody) Arthralgia of both hands XR HIPS BILATERAL 3 OR 4 VIEWS W PELVIS Routine 02/17/2020 2:15 PM CDT Positive SONJA (antinuclear antibody) Arthralgia of both hands XR HAND RIGHT 3 OR MORE VIEWS Routine 02/17/2020 2:15 PM CDT Positive SONJA (antinuclear antibody) Arthralgia of both hands XR HAND LEFT 3 OR MORE VIEWS Routine 02/17/2020 2:15 PM CDT Positive SONJA (antinuclear antibody) Arthralgia of both hands documented in this encounter Results * XR Hips Bilateral [...] signed by: Pawan Corley M.D. Osiris Sue CRUTCHER HELPER IMG XR PROCEDURES Final R esult * [...] signed by: Pawan Corley M.D. Osiris Sue CRUTCHER HELPER IMG XR PROCEDURES Final R esult documented in this encounter Visit Diagnoses Diagnosis Positive SONJA (antinuclear antibody) Other and unspecified nonspecific immunological findings Arthralgia of both hands documented in this encounter Care Teams Certified Orthotist Practice Manager Relationship Specialty Start Date End Date Naya Arriola PA [address] [place] [id number] PCP - General Physician Erp Programmer 10/20/19 documented as of this encounter
--- OUTSIDE RECORDS SUMMARY | 2024-09-18 09:40 | XMS_ITS | Encounter Summary ---
Author Organization [facility] Address [address] [place] [address] Care Team Providers Care Registered Respiratory Therapist Name Role Phone Naya Arriola Primary Care Provider [phone] Reason for Visit * Reason Comments Follow-up 9 mo f/u Coronary Artery Disease Encounter Details Date Type Department Care Team (Late st Contact Info) Description 07/26/2021 2:00 PM MALL PLANT CARETAKER Office Visit [facility] Cardiology [address] [facility] [address] [place] [address] Kike Alexandre MD [address] [facility] [address] [place] [address] Coronary artery disease involving [place] coronary artery of [place] heart without angina pectoris (Primary Dx); Hyperlipidemia associated with type 2 diabetes mellitus (HCC); Hypertension associated with diabetes (HCC); History of tobacco abuse; Morbid obesity with BMI of 40.0-44.9, adult (HCC) Social History Tobacco Use Types Packs/Day Years Used Date Smoking Tobacco: Former Cigarettes Q uit: 06/2019 Smokeless Tobacco: Never Alcohol Use Standard Drinks/Week Comments Not Currently 0 (1 standard drink = 0.6 oz pur e alcohol) 1 or twice a year Comments Unknown Sex and Gender Information Value Date Recorded Sex Assigned at Not on file Legal Sex Female 12:28 PM MALL PLANT CARETAKER Gender Identity Female 01/13/2020 8:00 PM CDT Sexual Orientation Straight 01/13/2020 8: 00 PM CDT documented as of this encounter Last Filed Vital Signs Vital Sign Reading Time Taken Comments Blood Pressure 124/76 07/26/2021 1:59 PM MALL PLANT CARETAKER Pulse 90 07/26/2021 1:59 PM MALL PLANT CARETAKER Temperature - - Respiratory Rate - - Oxygen Saturation 95% 07/26/2021 1:59 PM MALL PLANT CARETAKER Inhaled Oxygen Concentration - - Weight 110.9 kg (244 lb 6.4 oz) 07/26/2021 1:59 PM MALL PLANT CARETAKER Height 160 cm (5' 3 ) 07/26/2021 1:59 PM MALL PLANT CARETAKER Body Mass Index 43.29 07/26/2021 1:59 PM MALL PLANT CARETAKER documented in this encounter Progress Notes * Kike Alexandre MD - 07/26/2021 2:00 PM CST [facility] DATE OF VISIT: 07/26/2021 CHIEF COMPLAINT Chief Complaint Patient presents with ??? Follow-up 9 mo f/u ??? Coronary Artery Disease ASSESSMENT Diagnoses and all orders for this visit: Coronary artery disease involving [place] coronary artery of [place] heart without angina pectoris (Primary) Hyperlipidemia associated with type 2 diabetes mellitus (HCC) - Lipid panel; Future Hypertension associated with diabetes (HCC) History of tobacco abuse Morbid obesity with BMI of 40.0-44.9, adult ([facility]) PLAN/RECOMMENDATIONS 1. No recurrent anginal symptoms improved [...] medical therapy. -continue aspirin 81 mg daily. Monitor for bleeding. 2. BP controlled, improved on repeat check. Monitor BP on routine basis goal <130/80mmHg. Call with readings. Continue consistent cardiovascular exercise, weight loss, medication compliance, and low-sodium diet. -Continue Lisinopril 20mg daily, Metoprolol 50mg BID, Imdur 30mg daily 3. Lipids personally reviewed from 07/26/21 LDL 10 (previously 57) although this is very likely laberror, well controlled. Continue statin therapy and lifestyle modification. Goal LDL less than 70. Tolerating Atorvastatin 40 mg at bedtime. -Repeat formal FLP, recommendations to follow. 4. DM managed by PCP 5. Follow up with sleep study and tx for LISSETTE as I suspect many of her sxs are contributed by untreated LISSETTE. She has not yet done sleep study as apparently was not ordered. She will discuss with PCP at upcoming visit. 6. Lifestyle modification counseling performed. Weight loss, exercise, reduction in caloric intake. Over 50% of this visit counseling CAD, HTN, lipids, medications, lifestyle modification. Follow up in the office in 12 months or sooner as needed. Thank you [...] This was a telemedicine visit -Admitted to [place] with CP concerning for angina negative troponins [...] stress. Has some GERD sxs after eating Macedonian. No exertional CP or DENISE. BP ok at home. Mild edema worse as days progresses 10/26/20 Office visit 11/19/21 Losing weight feels better overall. Admitted to [place] December 2020 with CP negative Lexiscan no recurrent CP whatsoever. Taking Lasix 20mg every other day. BP controlled. Meds unchanged, dewey well. She wanted to inc Lasix to 20mg daily due to LE edema. No falls bleeding. Occ dizziness no SOB. Having LAKE she relates to how she slept. Taking Imdur 30mg daily. MEDICAL HISTORY Past Medical History: Diagnosis Date ??? Anxiety ??? Arthritis ??? Autoimmune disease (CMS/HCC) (HCC) 2005 ??? Depression 2005 ??? Diabetes mellitus (HCC) ??? Gall stones ??? Heart attack (CMS/HCC) (HCC) ??? Heart disease 2010 ??? Hyperlipidemia ??? Hypertension ??? Neuromuscular disorder (CMS/HCC) (HCC) 2005 ??? Sleep apnea ??? Thyroid disease Social History Tobacco Use ??? Smoking status: Former Smoker Quit date: 06/2019 Years since quittin.1 ??? Smokeless tobacco: Never Used Substance Use [...] capsule cyanocobalamin (Vitamin B-12) 1,000 mcg tablet dapagliflozin (Farxiga) 10 mg tablet furosemide (LASIX) 20 mg tablet isosorbide mononitrate [...] pantoprazole DR (PROTONIX) 40 mg EC tablet hydroCHLOROthiazide (HYDRODIURIL) 25 mg tablet ALLERGIES Allergies Allergen Reactions [...] for environmental allergies. PHYSICAL EXAM Vitals BP 124/76 (BP Location: Left arm, Patient Position: Sitting) Pulse 90 Ht 160 cm (5' 3 ) Wt 110.9 kg (244 lb 6.4 oz) SpO2 95% BMI 43.29 kg/m?? Weight: 110.9 kg (244 lb 6.4 oz) Height: 160 cm (5' 3 ) Body mass index is 43.29 kg/m??. On video today patient appeared rested, [...] angiography, EKG, blood work personally reviewed. 01/04/21 Lexiscan Marquise EF >70% no ischemia or infarction. LDL 57 12/23/19 Personally reviewed EKG, electronic medical record, and bloodwork/lipids. Latoya Alexandre MD, [facility] This note is dictated and transcribed using [employer] Direct Software. [facility] Fac[facility] Professional variancesmay occur. Despite proofreading, typographical errors may occur. Physical Exam Constitutional: General: She is not in acute distress. Appearance: She is well-developed. She is not diaphoretic. HENT: Head: Normocephalic and atraumatic. Right Ear: External ear normal. Left Ear: External ear normal. Nose: Nose normal. Mouth/Throat: Dentition: Normal dentition. Eyes: General: Lids are normal. No scleral icterus. Conjunctiva/sclera: Conjunctivae normal. Neck: Thyroid: No thyromegaly. Vascular: Normal carotid pulses. No carotid bruit, hepatojugular reflux or JVD. Trachea: No tracheal deviation. Cardiovascular: Rate and Rhythm: Normal rate and regular rhythm. Pulses: Normal pulses and intact distal pulses. Heart sounds: Normal heart sounds, S1 [...] Normal range of motion and neck supple. Lymphadenopathy: Cervical: No cervical adenopathy. Skin: General: Skin is warm and dry. Coloration: Skin is not pale. Findings: No ecchymosis, erythema, petechiae or rash. Nails: There is no clubbing. Neurological: Mental Status: She is alert and oriented to person, place, and time. Cranial Nerves: No cranial nerve deficit. Motor: No abnormal muscle tone. Coordination: Coordination normal. Psychiatric: Speech: Speech normal. Behavior: Behavior normal. Behavior is cooperative. Judgment: Judgment normal. PLANT CARETAKER documented in this encounter Miscellaneous Notes * Addendum Note - Lane Guzman MA - 07/26/2021 2:00 PM CSTAddended by: LANE GUZMAN on: 07/26/2021 04:04 PM Modules accepted: Orders PLANT CARETAKER documented in this encounter Plan of Treatment Not on file documented as of this encounter Procedures Procedure Name Priority Date/Time Associated Diagnosis Comments POCT LIPID PANEL Routine 07/26/2021 4:02 PM MALL PLANT CARETAKER Coronary artery disease involving [place] coronary artery of [place] heart without angina pectoris documented in this encounter Results * POCT lipid panel (07/26/2021 4:02 PM MALL PLANT CARETAKER) Cholesterol, POC 106 mg/dL Comment:GLU = 106 HDL, POC 25 mg/dL Triglycerides, POC 358 mg/dL LDL Cholesterol POC 9.8 mg/dL Chol/HDL Ratio, POC 4.2 Non-HDL Cholesterol, POC 81 mg/dL Cholesterol Total, POC 106 mg/dL Capillary blood 07/26/2021 4 :02 PM MALL PLANT CARETAKER Kike Alexandre MD POINT OF CARE TEST ORDER SOFY Final Result documented in this encounter Visit Diagnoses Diagnosis Coronary artery disease involving [place] coronary artery of [place] heart without angina pectoris- Primary Hyperlipidemia associated with type 2 diabetes mellitus (HCC) Hypertension associated with diabetes (HCC) Unspecified essential hypertension History of tobacco abuse Morbid obesity with BMI of 40.0-44.9, adult (HCC) documented in this encounter Discontinued Medications Medication Sig Discontinue Reason Start Date End Da te hydroCHLOROthiazide (HYDRODIURIL) 25 mg tablet Take 25 mg by mouth daily Therapy completed 07/26/2021 documented as of this encounter Historical Medications * This list may reflect changes made after this encounter. furosemide (LASIX) 20 mg tablet 1 tablet (20 mg total) every other day 07/10/2021 dapagliflozin (Farxiga) 10 mg tablet 10 mg daily 08/04/2022 added in this encounter Care Teams Registered Respiratory Therapist Relationship Specialty Start Date End Date Naya Arriola PA [address] [place] [address] PCP - General Physician Life Sciences Director 10/20/19 documented as of this encounter
--- OUTSIDE RECORDS SUMMARY | 2024-09-18 09:40 | XMS_ITS | Encounter Summary ---
Author Organization [facility] Address [address] [place] [address] Care Team Providers Care Home Health Care Physician Name Role Phone Naya Arriola Primary Care Provider [phone] Encounter Details Date Type Department Care Team (Late st Contact Info) Description 08/24/2020 Telephone [facility] Cardiology [address] [place] [address] Kike Alexandre MD [address] [facility] [address] [place] [address] Social History Tobacco Use Types Packs/Day Years Used Date Smoking Tobacco: Former Cigarettes Q uit: 06/2019 Smokeless Tobacco: Never Alcohol Use Standard Drinks/Week Comments Not Currently 0 (1 standard drink = 0.6 oz pur e alcohol) 1 or twice a year Comments Unknown Sex and Gender Information Value Date Recorded Sex Assigned at Not on file Legal Sex Female 12:28 PM CARGO INSPECTOR Gender Identity Female 01/13/2020 8:00 PM CDT Sexual Orientation Straight 01/13/2020 8: 00 PM CDT documented as of this encounter Ordered Prescriptions Prescription Sig Dispense Quantity Refills Last Filled Start Date End Date isosorbide mononitrate ER (IMDUR) 30 mg 24 hr tablet Take 1 tablet (30 mg total) by mouth daily 90 tablet 3 08/24/2020 12/16/2021 documented in this encounter Miscellaneous Notes * Telephone Encounter - Shirley Pak MA - 08/24/2020 2:02 PM CST Refills approved and sent to pharmacy as requested. O INSPECTOR * Telephone Encounter - April Reynoso - 08/24/2020 1:29 PM CST Patient/and or Pharmacy calling to request refills on the following medications:isosorbide mononitrate Er 30 mg 24 hr tabs. Pharmacy: [facility] Pharm O INSPECTOR documented in this encounter Plan of Treatment Not on file documented as of this encounter Visit Diagnoses Not on filedocumented in this encounter Discontinued Medications Medication Sig Discontinue Reason Start Date End Da te isosorbide mononitrate ER (IMDUR) 30 mg 24 hr tablet Take 1 tablet (30 mg total) by mouth daily Reorder 04/18/2020 08/24/2020 documented as of this encounter Care Teams Home Health Care Physician Relationship Specialty Start Date End Date Naya Arriola PA [address] [place] [address] PCP - General Physician Lard Refiner 10/20/19 documented as of this encounter
--- OUTSIDE RECORDS SUMMARY | 2024-09-18 09:40 | XMS_ITS | Encounter Summary ---
Author Organization [facility] Address [address] [place] [address] Care Team Providers Care Inspector Publications Name Role Phone Naya Arriola Primary Care Provider [phone] Reason for Visit * (Routine) - Closed Specialty Diagnoses / Procedures Referred By Contac t Referred To Contact Diagnoses QT prolongation Procedures ECG 12 lead Kike Alexandre MD Phone: tel: fax: [facility] Referral ID Status Reason Start Date Expiration Date Visits Re quested Visits Authorized [id number] Closed 04/18/2020 05/18/2021 1 1 Encounter Details Date Type Department Care Team (Late st Contact Info) Description 05/16/2020 1:30 PM CDT Procedure visit [facility] Cardiology [address] [facility] [address] [place] [address] QT prolongation Social History Tobacco Use Types Packs/Day Years Used Date Smoking Tobacco: Former Cigarettes Q uit: 06/2019 Smokeless Tobacco: Never Alcohol Use Standard Drinks/Week Comments Not Currently 0 (1 standard drink = 0.6 oz pur e alcohol) 1 or twice a year Comments Unknown Sex and Gender Information Value Date Recorded Sex Assigned at Not on file Legal Sex Female 12:28 PM BUGGY OPERATOR Gender Identity Female 01/13/2020 8:00 PM CDT Sexual Orientation Straight 01/13/2020 8: 00 PM CDT documented as of this encounter Last Filed Vital Signs Vital Sign Reading Time Taken Comments Blood Pressure 120/76 05/16/2020 2:05 PM CDT Pulse 86 05/16/2020 2:05 PM CDT Temperature - - Respiratory Rate - - Oxygen Saturation 93% 05/16/2020 2:05 PM CDT Inhaled Oxygen Concentration - - Weight - - Height - - Body Mass Index - - documented in this encounter Progress Notes * Shirley Pak MA - 05/16/2020 1:30 PM CDT Patient here for EKG to check QT prolongation. BP 120/76, left arm, sitting. HR 86 BPM. SpO2 93% onroom air. Patient states she feels OK . EKG performed and given to RN for review. Patient informedto continue the same medications and await further instruction. Will forward to Dr. Alexandre. documented in this encounter Plan of Treatment Not on file documented as of this encounter Visit Diagnoses Diagnosis QT prolongation documented in this encounter Orders EKG Orders Without Results Count Last Ordered D ate First Ordered Date ECG 12-LEAD 1 05/16/2020 documented in this encounter Care Teams Inspector Publications Relationship Specialty Start Date End Date Naya Arriola PA [address] [place] [address] PCP - General Physician License Inspector 10/20/19 documented as of this encounter
--- OUTSIDE RECORDS SUMMARY | 2024-09-18 09:40 | XMS_ITS | Encounter Summary ---
Author Organization [facility] Address [address] [place] [address] Care Team Providers Care Drywall Finisher Foreman Name Role Phone Naya Arriola Primary Care Provider [phone] Reason for Visit * Reason Comments Follow-up 1 yr f/u Coronary Artery Disease Hypertension Encounter Details Date Type Department Care Team (Latest Contact Info) Description 08/04/2022 2:15 PM WIND TURBINE MACHINIST Office Visit [facility] Cardiology [address] [facility] [address] [place] [address] Kike Alexandre MD [address] [facility] [address] [place] [address] Coronary artery disease involving [place] coronary artery of [place] heart without angina pectoris (Primary Dx); Hypertension associated with diabetes (HCC); Mixed 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 (CMS/HCC) (HCC); Systemic lupus erythematosus, unspecified SLE type, unspecified organ involvement status (HCC); Morbid obesity with BMI of 40.0-44.9, adult ([facility]) Social History Tobacco Use Types Packs/Day Years [...] on file Legal Sex Female 12:28 PM WIND TURBINE MACHINIST Gender Identity Female 01/13/2020 8:00 PM CDT Sexual Orientation Straight 01/13/2020 8: 00 PM CDT documented as of this encounter Last Filed Vital Signs Vital Sign Reading Time Taken Comments Blood Pressure 122/78 08/04/2022 2:27 PM WIND TURBINE MACHINIST Pulse 88 08/04/2022 2:27 PM WIND TURBINE MACHINIST Temperature - - Respiratory Rate - - Oxygen Saturation 96% 08/04/2022 2:27 PM WIND TURBINE MACHINIST Inhaled Oxygen Concentration - - Weight 107.7 kg (237 lb 6.4 oz) 08/04/2022 2:27 PM WIND TURBINE MACHINIST Height 160 cm (5' 3 ) 08/04/2022 2:27 PM WIND TURBINE MACHINIST Body Mass Index 42.05 08/04/2022 2:27 PM WIND TURBINE MACHINIST documented in this encounter Progress Notes * Kike Alexandre MD - 08/04/2022 2:15 PM CST [facility] DATE OF VISIT: 08/04/2022 CHIEF COMPLAINT Chief Complaint Patient presents with Follow-up 1 yr f/u Coronary Artery Disease Hypertension ASSESSMENT Diagnoses and all orders for this visit: Coronary artery disease involving [place] coronary artery of [place] heart without angina pectoris (Primary) Hypertension associated with diabetes (HCC) Mixed 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 No recurrent anginal symptoms improved with long-acting nitrate therapy. Continue isosorbide mononitrate 30 mg daily. Deewy well. -Aggressive CAD risk modification counseling performed. [...] 30mg daily 3. Lipids personally reviewed from 08/04/22 LDL 67 (previously 57) well controlled. Continue statintherapy and lifestyle modification. Goal LDL less than 70. Tolerating Atorvastatin 40 mg at bedtime. 4. DM managed by PCP 5. She did not follow up with sleep study as previously discussed. Discuss further with PCP as clinically warranted. 6. Lifestyle modification counseling performed. Weight loss, [...] or concerns. HPI Lucretia Rodriguez is a 56 y.o. female with a PMHx of CAD status post myocardial infarction 2010 status post stent to proximal LAD, hypertension, type 2 diabetes mellitus, dyslipidemia, lupus erythematosus, morbid obesity, obstructive sleep apnea untreated, history of tobacco abuse seen in follow-up. Left heart catheterization [facility] December 2019: patent previously placed stent proximal LAD 10% InStent restenoses, 60-70% mid circumflex stenosis with post stenotic aneurysmal dilatation, 50-70% stenosis mid RCA very large caliber vessel. 01/02/20 This was a telemedicine visit -Admitted to [place] with CP concerning for angina negative troponins [...] stress. Has some GERD sxs after eating Namibian. No exertional CP or DENISE. BP ok at home. Mild edema worse as days progresses 10/26/20 Office visit 07/26/21 Losing weight feels better overall. Admitted to [place] December 2020 with CP negative Lexiscan no [...] 20mg every other day. Metoprolol 50mg BID MEDICAL HISTORY Past Medical History: Diagnosis Date Anxiety Arthritis Autoimmune disease ([facility]) ([facility]) 2005 Depression 2006 Diabetes mellitus ([facility]) Gall stones Heart attack ([facility]) ([facility]) Heart disease 2010 Hyperlipidemia Hypertension Neuromuscular disorder ([facility]) ([facility]) 2005 Sleep apnea Thyroid disease Social History [...] tablet cholecalciferol (VITAMIN D-3) 5,000 unit capsule furosemide [...] pantoprazole DR (PROTONIX) 40 mg EC tablet cyanocobalamin (Vitamin B-12) 1,000 mcg tablet dapagliflozin (Farxiga) 10 mg tablet ALLERGIES Allergies Allergen Reactions Sulfa (Sulfonamide [...] and are negative. PHYSICAL EXAM Vitals BP 122/78 (BP Location: Left arm, Patient Position: Sitting) Pulse 88 Ht 160 cm (5' 3 ) Wt 107.7 kg (237 lb 6.4 oz) SpO2 96% BMI 42.05 kg/m?? Weight: 107.7 kg (237 lb 6.4 oz) Height: 160 cm (5' 3 ) Body mass index is 42.05 kg/m??. On video today patient appeared rested, no apparent distress, breathing comfortably, speaking in full sentences. She was alert and oriented x3, pleasant and cooperative. No dyspnea or tachypnea. Headatraumatic and normocephalic. Moving eyes normally, external inspection of nose normal. No facial dissymmetry. Mood calm and appropriate. LABS AND OTHER DIAGNOSTIC TESTS [facility] records, coronary angiography, EKG, blood work personally reviewed. 01/04/21 Karley Camraillo EF >70% no ischemia or infarction. LDL 57 12/23/19 Personally reviewed EKG, electronic medical record, and bloodwork/lipids. Latoya Alexandre MD, [facility] This note is dictated and transcribed using [employer] Software. Log Sorter variancesmay occur. Despite proofreading, typographical errors may occur. Physical Exam Vitals reviewed. Constitutional: General: She is not in acute distress. Appearance: Normal appearance. She is well-developed. She is not diaphoretic. Comments: Wearing a mask HENT: Head: Normocephalic and atraumatic. Right Ear: [...] Content: Thought content normal. Judgment: Judgment normal. TURBINE MACHINIST documented in this encounter Plan of Treatment Not on file documented as of this encounter Visit Diagnoses Diagnosis Coronary artery disease involving [place] coronary artery of [place] heart without angina pectoris- Primary Hypertension associated with diabetes (HCC) Unspecified essential hypertension Mixed 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 (HCC) Systemic lupus erythematosus, unspecified SLE type, unspecified organ involvement status (HCC) Morbid obesity with BMI of 40.0-44.9, adult (HCC) documented in this encounter Discontinued Medications Medication Sig Discontinue Reason Start Date End Da te dapagliflozin (Farxiga) 10 mg tablet 10 mg daily Therapy completed 08/04/2022 cyanocobalamin (Vitamin B-12) 1,000 mcg tabletIndications:Prevent ion of Vitamin B12 Deficiency Take 1,000 mcg by mouth daily Therapy completed 08/04/2022 documented as of this encounter Care Teams Drywall Finisher Foreman Relationship Specialty Start Date End Date Naya Arriola PA [address] [place] [id number] PCP - General Physician Orchid Transplanter 10/20/19 documented as of this encounter
--- OUTSIDE RECORDS SUMMARY | 2024-09-18 09:40 | XMS_ITS | Encounter Summary ---
Author Organization [facility] Address [address] [place] [address] Care Team Providers Care Well Control Instructor Name Role Phone Naya Arriola Primary Care Provider [phone] Encounter Details Date Type Department Care Team (Late st Contact Info) Description 12/20/2019 Orders Only [facility] Cardiology [address] [facility] [address] [place] [address] Kike Alexandre MD [facility] [facility] [address] [place] [address] Social History Tobacco Use Types Packs/Day Years Used Date Smoking Tobacco: Never Assessed Comments Unknown Sex and Gender Information Value Date Recorded Sex Assigned at Not on file Legal Sex Female 12:28 PM MANAGER BRANCH Gender Identity Female 01/13/2020 8:00 PM CDT Sexual Orientation Straight 01/13/2020 8: 00 PM CDT documented as of this encounter Plan of Treatment Not on file documented as of this encounter Procedures Procedure Name Priority Date/Time Associated Diagnosis Comments CARDIOLOGY DOCUMENT SCAN Routine 12/20/2019 documented in this encounter Results * SCAN - CARDIOLOGY (12/20/2019) Anatomical Region Laterality Modality Other Kike Alexandre MD [facility] CARDIAC SERVICES PROC EDURES Final Result documented in this encounter Visit Diagnoses Not on filedocumented in this encounter Care Teams Well Control Instructor Relationship Specialty Start Date End Date Naya Arriola PA [address] [place] [address] PCP - General Physician Spouter 10/20/19 documented as of this encounter
--- OUTSIDE RECORDS SUMMARY | 2024-09-18 09:40 | XMS_ITS | Encounter Summary ---
Author Organization [facility] Address [address] [place] [address] Care Team Providers Care Enterprise Business Architect Name Role Phone Naya Arriola Primary Care Provider [phone] Encounter Details Date Type Department Care Team (Late st Contact Info) Description 07/21/2022 Telephone [facility] [address] [address] [address] [place] [address] [place] [address] [place] [address] Social History Tobacco Use Types Packs/Day Years Used Date Smoking Tobacco: Former Cigarettes Q uit: 06/2019 Smokeless Tobacco: Never Alcohol Use Standard Drinks/Week Comments Not Currently 0 (1 standard drink = 0.6 oz pur e alcohol) 1 or twice a year Comments Unknown Sex and Gender Information Value Date Recorded Sex Assigned at Not on file Legal Sex Female 12:28 PM HOTEL OPERATION MANAGER Gender Identity Female 01/13/2020 8:00 PM CDT Sexual Orientation Straight 01/13/2020 8: 00 PM CDT documented as of this encounter Miscellaneous Notes * Telephone Encounter - Bronwyn Grove RN - 07/21/2022 8:39 AM HOTEL OPERATION MANAGER Lipid panel sent to [facility] as requested. L OPERATION MANAGER * Telephone Encounter - Bronwyn Grove RN - 07/21/2022 8:38 AM HOTEL OPERATION MANAGER ----- Message from Lucretia Rodriguez sent at 07/20/2022 2:50 PM HOTEL OPERATION MANAGER ----- Regarding: Non-Urgent Medical Question Contact: Am I supposed to have blood work done before visit. if you gave me orders I have misplaced them. will you send new orders to [facility] please. Also should they be fasting bloodwork? Thank you, Larisa Michael L OPERATION MANAGER documented in this encounter Plan of Treatment Not on file documented as of this encounter Procedures Procedure Name Priority Date/Time Associated Diagnosis Comments LIPID PANEL Routine 07/25/2022 8:22 AM HOTEL OPERATION MANAGER Hyperlipidemia associated with type 2 diabetes mellitus (HCC) documented in this encounter Results * (ABNORMAL) Lipid panel (07/25/2022 8:22 AM HOTEL OPERATION MANAGER) Cholesterol 133 100 - 199 mg/dL [facility] - 01 Triglycerides 219(H) 0 - 149 mg/dL [facility] - 01 HDL Cholesterol 30(L) >39 mg/dL [facility] - 01 VLDL 36 5 - 40 mg/dL [facility] - 01 LDL, calculated 67 0 - 99 mg/dL [facility] - 01 Blood 07/25/2022 8:22 AM HOTEL OPERATION MANAGER 07/25/2022 Narrative [facility] - 07/26/2022 7:09 AM HOTEL OPERATION MANAGER Performed at: ??01 - [facility] [address] ??[id number] Gun Synchronizer: Gilberto Malhotra PhD, Phone: ??[phone] us Kike Alexandre MD LAB BLOOD ORDERABLES Fin al Result [facility] - 01 documented in this encounter Visit Diagnoses Diagnosis Hyperlipidemia associated with type 2 diabetes mellitus (HCC)- Primary documented in this encounter Care Teams Enterprise Business Architect Relationship Specialty Start Date End Date Naya Arriola PA [address] [place] [address] PCP - General Physician Computer Repairer 10/20/19 documented as of this encounter
== END 2024-09-12 03:02 | disposition home or self-care (01) ==
PROVIDERS: Emergency Provider Emergency Medicine; PCP Physician Assistant Medical
DX: K52.9 Noninfective gastroenteritis and colitis, unspecified (principal); K21.9 Gastro-esophageal reflux disease without esophagitis; E11.42 Type 2 diabetes mellitus with diabetic polyneuropathy; I25.10 Atherosclerotic heart disease of native coronary artery without angina pectoris; E03.9 Hypothyroidism, unspecified; I25.2 Old myocardial infarction; I10 Essential (primary) hypertension; Z96.652 Presence of left artificial knee joint; Z87.891 Personal history of nicotine dependence; Z20.822 Contact with and (suspected) exposure to COVID-19
CPT/HCPCS: 36415; 71275; 74177; 80053; 81003; 83605; 83690; 83735; 83880; 84145; 84484; 85025; 85610; 85730; 87637; 93005; 96361; 96365; 96374; 96375; 99284; A9270; J0780; J1200; J2270; J2405; J3475; J7030; Q9967

== ENCOUNTER 2025-02-18 08:49 | Outpatient (CLI) | payer OTHER, SELFPAY ==
--- NOTE | ~2025-02-18 | MM_ITS ---
EXAMINATION: MM screening [facility] BI w barrett HISTORY: Screening TECHNIQUE: Craniocaudal and mediolateral oblique 3-D tomosynthesis images were obtained and synthetic 2-D images were generated. CAD analysis was submitted and interpreted. COMPARISON: Comparison to multiple prior studies sequentially, with oldest reviewed study dated 05/2021. BREAST PARENCHYMAL COMPOSITION: Not dense: There are scattered areas of fibroglandular density. FINDINGS: There is no evidence of suspicious mass, calcification, or architectural distortion to sugg est malignancy in either breast. There has been no suspicious interval change. IMPRESSION: 1. No mammographic evidence of malignancy. 2. Recommend routine screening mammography in one year. BI-RADS Category 1: Negative Reviewed, dictated and finalized at location A.
== END 2025-02-18 08:50 | disposition home or self-care (01) ==
LOC: MICIMG 08:49
PROVIDERS: PCP Physician Assistant Medical; Visit Provider Physician Assistant Medical
DX: Z12.31 Encounter for screening mammogram for malignant neoplasm of breast (principal)
CPT/HCPCS: 77063; 77067

== ENCOUNTER 2025-07-18 11:28 | Outpatient (CLI) | payer OTHER, SELFPAY ==
--- NOTE | ~2025-07-18 | XR_ITS ---
EXAMINATION: XR shoulder RT min 2V, 07/18/2025 11:35 SCREEN REPAIRER CRUSHER HISTORY: Right rotator cuff injury COMPARISON: No comparisons available. Findings: No acute fracture or malalignment. No significant degenerative changes. Soft tissues unremarkable. Impression: No acute fracture or malalignment. Reviewed, dictated and finalized at location P. EN REPAIRER CRUSHER Impression: No acute fracture or malalignment.
== END 2025-07-18 11:29 | disposition home or self-care (01) ==
PROVIDERS: PCP Physician Assistant Medical; Visit Provider Physician Assistant Medical
DX: S46.001A Unspecified injury of muscle(s) and tendon(s) of the rotator cuff of right shoulder, initial encounter (principal); X58.XXXA Exposure to other specified factors, initial encounter
CPT/HCPCS: 73030